=== PATIENT | male | born 1930 | race Caucasian/White ===

== ENCOUNTER 2017-06-15 18:21 | Inpatient (IN) | payer MEDICARE, BC ==
[2017-06-15] MEDS ORDERED: PANTOPRAZOLE 40 MG INJ ONE (18:34)
[2017-06-15] MEDS ORDERED: ONDANSETRON 4 MG/2 ML VIAL ONE (18:34)
[2017-06-15 18:57] LABS: Absolute Lymphocytes (CBC) 0.4 K/uL (0.7-4.9); Absolute Monocytes 0.3 K/uL (0.1-1.3); Absolute Neutrophil 4.1 K/uL (1.8-8.0); Basophils % 0.2 % (0-1.3); Eosinophils % 1.8 % (0-4.4); Hematocrit 37.3 % (39.6-49.0); Lymphocytes % 8.1 % (15.3-44.8); MCH 34.6 pg (27.0-35.0); MCV 100.9 fL (80-100); MPV 8.6 fL (7.6-11.3); Monocytes % 6.8 % (3.3-12.3)
[2017-06-15 19:08] LABS: Protime INR 1.11
[2017-06-15 19:11] LABS: Potassium 4.7 mEq/L (3.6-5.0)
[2017-06-15 19:12] LABS: Albumin 4.7 g/dL (3.2-5.5); Bilirubin Direct 0.5 mg/dL (0-0.2); Bilirubin Total 2.6 mg/dL (0.3-1.2); Protein, Total 7.9 g/dL (6.0-8.3)
[2017-06-15 21:09] LABS: Urine Blood NEGATIVE (NEG); Urine Glucose NEGATIVE (NEG); Urine Protein 1+ (NEG); Urine Specific Gravity 1.015 (1.005-1.030); Urine pH 6.5 (5.0-7.0)
--- NOTE | 2017-06-15 21:10 | RAD REPORT ---
EXAM DESCRIPTION: CT - Abdomen Pelvis W Contrast - 06/15/2017 8:36 pm CLINICAL HISTORY: Abdominal pain, vomiting, history of bowel obstruction COMPARISON: CT March 24 TECHNIQUE: Biphasic, helical CT imaging of the abdomen and pelvis was performed following 100 ml non -ionic IV contrast. No oral contrast given. All CT scans are performed using dose optimization technique as appropriate and may include automated exposure control or mA/KV adjustment according to patient size. FINDINGS: No acute pleural or parenchymal process seen. Cardiomegaly is present seen primarily as bi atrial enlargement. No pericardial effusion. Liver shows a nodular capsular contour. No new or enlarging liver lesion. Small low-density mass late ral right lobe near the gallbladder fossa has not changed from the prior study. No splenomegaly or fo thad splenic process. No acute pancreatic process. Cholecystectomy clips are present with no biliary t ree dilatation. Symmetric renal function is seen with no hydronephrosis or suspicious renal mass. No pyelonephritis o r acute renal parenchymal process. Partially filled urinary bladder shows no suspicious findings. No gastric wall thickening or mass. There is fluid distention of the stomach. Colonic diverticulosis is present. There is postsurgical change near the rectosigmoid junction with and end to side anastomo sis. An active colon process is doubtful. No appendicitis. Multiple prominent proximal small bowel lo ops are present with progressive dilatation up to 3 cm in diameter in the low midline pelvis. No mass at the transition site. More distally the small bowel is decompressed. This is most likely adhesions causing an early mechanical small bowel obstruction. Small bowel pattern is more prominent than seen in March. No free air, free fluid or inflammatory stranding. No hernia, mass or bulky lymphadenopathy. No adre nal abnormality. No suspicious bony findings. IMPRESSION: Early mechanical small bowel obstruction pattern with an abrupt transition in the low mi dline pelvis. There are surgical clips in this region from prior colon surgery. The adhesions would b e most likely. No free air, pneumatosis or other surgically emergent finding. Cirrhotic liver changes not substantially different from comparison. Cardiomegaly seen as biatrial enlargement. No pericardial effusion.
[2017-06-15] MEDS ORDERED: METRONIDAZOLE 500mg IVPB 500 MG/100 ML BAG IV ONE (21:17)
[2017-06-15] MEDS ORDERED: CEFTRIAXONE/SWI 1gm 1 GM/10 ML SYR ONE (21:17)
[2017-06-15] MEDS ORDERED: NA CHLORIDE 0.9% 1,000 ML ONE (21:34)
--- NOTE | 2017-06-15 21:39 | EDPHYS ---
Physician Documentation [facility] Name: Chris Mcwilliams Age: 87 yrs Sex: Male : 1930 Arrival Date: 06/15/2017 Time: 18:24 Bed 4 Private MD: ED Physician Shan Conway HPI: 06/15 18:52 This 87 yrs old Male presents to ER via EMS with complaints of Vomiting. rn 18:52 The patient presents to the emergency department with nausea, vomiting. Onset: The rn symptoms/episode began/occurred this morning. Possible causes: unknown. Severity of symptoms: At their worst the symptoms were moderate in the emergency department the symptoms are unchanged. The patient has not experienced similar symptoms in the past. Reports vomiting several episodes today, since this morning, + mild diarrhea but hasn't been able to go to bathroom lately, no fever, noticed small amount of red substance believed to be blood in more recent emesis. Denies chest pain/sob. Reports baseline left sided abd pain but nothing new. . Historical: - Allergies: 18:47 metformin; sv 18:47 Levaquin; sv - Home Meds: 18:47 clopidogrel 75 mg Oral tab [Active]; Aspir-81 81 mg Oral TbEC [Active]; Lasix 40 mg sv Oral tab [Active]; simvastatin 20 mg Oral tab [Active]; Metoprolol Tartrate Oral [Active]; pantoprazole 50 Oral TbEC [Active]; Docusate Sodium Oral [Active]; b12 [Active]; Magnesium Oxide Oral [Active]; Folic Acid Oral [Active]; Iron CR Oral [Active]; - PMHx: 18:47 bowel obstruction; Diverticulitis; Hyperlipidemia; Hypertension; Myocardial infarction; sv Atrial Fib; - PSHx: 18:47 Colostomy; Heart stents; triple bypass; sv - Immunization history:: Adult Immunizations unknown. - Family history:: not pertinent. - Social history:: Smoking status: unknown. - Hospitalizations: : No recent hospitalization is reported. ROS: 18:52 Constitutional: Negative for fever, chills, and weight loss, Eyes: Negative for injury, rn pain, redness, and discharge, Neck: Negative for injury, pain, and swelling, Cardiovascular: Negative for chest pain, palpitations, and edema, Respiratory: Negative for shortness of breath, cough, wheezing, and pleuritic chest pain, Abdomen/GI: + chronic abd pain, + nausea/vomiting/diarrhea/constipation Back: Negative for injury and pain, MS/Extremity: Negative for injury and deformity, Skin: Negative for injury, rash, and discoloration, Neuro: Negative for headache, numbness, tingling, and seizure. Exam: 18:52 Constitutional: This is a well developed, well nourished patient who is awake, alert, rn holding emesis bag Head/Face: Normocephalic, atraumatic. Eyes: Pupils equal round and reactive to light, extra-ocular motions intact. Lids and lashes normal. Conjunctiva and sclera are non-icteric and not injected. Cornea within normal limits. Periorbital areas with no swelling, redness, or edema. Neck: Trachea midline, no thyromegaly or masses palpated, and no cervical lymphadenopathy. Supple, full range of motion without nuchal rigidity, or vertebral point tenderness. No Meningismus. Cardiovascular: Regular rate and rhythm with a normal S1 and S2. No gallops, murmurs, or rubs. Normal PMI, no JVD. No pulse deficits. Respiratory: Lungs have equal breath sounds bilaterally, clear to auscultation and percussion. No rales, rhonchi or wheezes noted. No increased work of breathing, no retractions or nasal flaring. Abdomen/GI: soft, mild LLQ tenderness, no rebound, no masses MS/ Extremity: Pulses equal, no cyanosis. Neurovascular intact. Full, normal range of motion. Equal circumference. Neuro: Awake and alert, GCS 15, oriented to person, place, time, and situation. Cranial nerves II-XII grossly intact. Motor strength 5/5 in all extremities. Sensory grossly intact. Vital Signs: 18:48 BP 131 / 77; Pulse 93 MON; Resp 20; Temp 98.1(A); Pulse Ox 100% on 2 lpm NC; Weight sv 81.65 kg (R); Height 5 ft. 7 in. (170.18 cm) (R); Pain 0/10; 20:35 BP 153 / 56; Pulse 80; Resp 17; Pulse Ox 95% on 2 lpm NC; Pain 0/10; tl1 21:36 BP 139 / 54; Pulse 76; Resp 17; Pulse Ox 94% on 2 lpm NC; Pain 0/10; tl1 22:13 BP 100 / 55; Pulse 69; Resp 17; Pulse Ox 96% on 2 lpm NC; Pain 0/10; tl1 18:48 Body Mass Index 28.19 (81.65 kg, 170.18 cm) sv 18:48 A fib sv MDM: 18:24 Patient medically screened. rn 21:20 Differential diagnosis: Nonspecific abd pain, diverticulitis, viral gastroenteritis, rn gastroenteritis, colitis, SBO. Data reviewed: vital signs, nurses notes. 21:36 Counseling: I had a detailed discussion with the patient and/or guardian regarding: the rn historical points, exam findings, and any diagnostic results supporting the discharge/admit diagnosis, lab results, radiology results, the need for further work-up and treatment in the hospital. Response to treatment: the patient's symptoms have mildly improved after treatment, and as a result, I will admit patient. Admission orders: after a detailed discussion of the patient's condition and case, the admit orders are written by me. ED course: Pt with early SBO, sleeping, no peritoneal signs, admitted to Dr. Garcia, and spoke with Dr. Lugo regarding consultation and admission.. 06/15 18:25 Order name: Basic Metabolic Panel; Complete Time: 20:12 06/15 18:25 Order name: CBC with Diff; Complete Time: 20:12 06/15 18:25 Order name: Creatinine for Radiology; Complete Time: 20:12 06/15 18:25 Order name: Hepatic Function; Complete Time: 20:12 06/15 18:25 Order name: Lipase; Complete Time: 20:12 06/15 18:25 Order name: PT-INR; Complete Time: 20:12 06/15 18:25 Order name: Ptt, Activated; Complete Time: 20:12 06/15 18:25 Order name: Troponin (emerg Dept Use Only); Complete Time: 20:12 06/15 18:25 Order name: Blood Culture Adult (2) rn 06/15 18:25 Order name: Lactate; Complete Time: 20:12 06/15 18:25 Order name: Type And Screen; Complete Time: 20:55 06/15 18:26 Order name: CT Abd/Pelvis - W/Contrast; Complete Time: 21:12 04/16 21:05 Order name: Urine Dipstick--Ancillary (enter results); Complete Time: 21:12 em1 06/15 18:25 Order name: IV Saline Lock; Complete Time: 18:42 rn 06/15 18:25 Order name: Labs collected and sent; Complete Time: 18:42 rn 06/15 18:25 Order name: EKG; Complete Time: 18:27 rn 06/15 18:25 Order name: EKG - Nurse/Tech; Complete Time: 18:49 rn 06/15 21:17 Order name: NG Tube; Complete Time: 21:57 rn 06/15 21:17 Order name: NPO; Complete Time: 21:33 rn Administered Medications: 18:39 Drug: Zofran 4 mg Route: IVP; Site: left antecubital; sv 22:54 Follow up: Response: No adverse reaction bb 18:41 Drug: ProTONIX 40 mg Route: IVP; Site: left antecubital; sv 22:55 Follow up: Response: No adverse reaction bb 21:23 Drug: Rocephin - (cefTRIAXone) 1 grams Route: IVPB; Infused Over: 30 mins; Site: left tl1 antecubital; 21:30 Follow up: IV Status: Completed infusion; IV Intake: 10ml bb 21:23 Drug: Flagyl 500 mg Volume: 100 ml; Route: IVPB; Rate: 200 ml/hr; Infused Over: 30 tl1 mins; Site: left antecubital; 22:00 Follow up: IV Status: Completed infusion; IV Intake: 100ml bb 21:51 Drug: NS 0.9% 1000 ml Route: IV; Rate: 75 ml/hr; Site: left antecubital; tl1 22:53 Follow up: IV Status: Infusion continued upon admission; IV Intake: 75ml bb Disposition: 06/15/17 21:38 Hospitalization ordered by Jas Garcia for Inpatient Admission. Preliminary diagnosis is Other and unspecified intestinal obstruction. - Bed requested for Telemetry/MedSurg (Inpatient). - Status is Inpatient Admission. bb - Condition is Stable. - Problem is new. - Symptoms have improved. UTI on Admission? No Signatures: Dispatcher [employer] Carissa Betancur RN RN sv Webb, Martha, RN RN mw Ballard, Brenda, RN RN bb Nieto, Roman, MD MD rn Lasagna, Tonya RN RN tl1 Corrections: (The following items were deleted from the chart) 20:53 20:14 Abdomen Limited+US.RAD.EMIGDIO ordered. EDMS EDMS
--- NOTE | 2017-06-15 21:39 | ER ---
Nurse's Notes [facility] Name: Chris Mcwilliams Age: 87 yrs Sex: Male : 1930 Arrival Date: 06/15/2017 Time: 18:24 Bed 4 Private MD: Diagnosis: Other and unspecified intestinal obstruction Presentation: 06/15 18:17 Presenting complaint: EMS states: vomiting since this morning, dark red blood. BP sv 160/75 HR 80 Afib 95% RA. Phenergan 12.5 mg IM given by EMS to right deltoid. Pt actively vomiting brown liquid at this time. Transition of care: patient was not received from another setting of care. Onset of symptoms was June 15, 2017. Care prior to arrival: Medication(s) given: Phenergan, 12.5 mg. 18:17 Method Of Arrival: EMS: [facility] sv 18:17 Acuity: BOB 2 sv 22:51 Mechanism of Injury: No Mechanism of Injury. bb Triage Assessment: 18:20 General: Appears distressed, uncomfortable, well developed, Behavior is cooperative, sv appropriate for age, anxious. Pain: Denies pain. EENT: No signs and/or symptoms were reported regarding the EENT system. Neuro: Level of Consciousness is awake, alert, obeys commands, Oriented to person, place, time, situation, Moves all extremities. Speech is normal. Cardiovascular: Patient's skin is warm and dry. Pulses are 2+ in right radial artery and left radial artery. Respiratory: Respiratory effort is even, unlabored, Respiratory pattern is regular, symmetrical. GI: Abdomen is round distended, Pt is actively vomiting brown liquid Abd is non tender X 4 quads Reports vomiting, since this morning. Derm: Skin is normal. Musculoskeletal: Range of motion: intact in all extremities. Historical: - Allergies: 18:47 metformin; sv 18:47 Levaquin; sv - Home Meds: 18:47 clopidogrel 75 mg Oral tab [Active]; Aspir-81 81 mg Oral TbEC [Active]; Lasix 40 mg sv Oral tab [Active]; simvastatin 20 mg Oral tab [Active]; Metoprolol Tartrate Oral [Active]; pantoprazole 50 Oral TbEC [Active]; Docusate Sodium Oral [Active]; b12 [Active]; Magnesium Oxide Oral [Active]; Folic Acid Oral [Active]; Iron CR Oral [Active]; - PMHx: 18:47 bowel obstruction; Diverticulitis; Hyperlipidemia; Hypertension; Myocardial infarction; sv Atrial Fib; - PSHx: 18:47 Colostomy; Heart stents; triple bypass; sv - Immunization history:: Adult Immunizations unknown. - Family history:: not pertinent. - Social history:: Smoking status: unknown. - Hospitalizations: : No recent hospitalization is reported. Screenin:30 Abuse screen: Denies threats or abuse. Denies injuries from another. Nutritional sv screening: No deficits noted. Tuberculosis screening: No symptoms or risk factors identified. Fall Risk No fall in past 12 months (0 pts). No secondary diagnosis (0 pts). IV access (20 points). Ambulatory Aid- None/Bed Rest/Nurse Assist (0 pts). Gait- Normal/Bed Rest/Wheelchair (0 pts) Mental Status- Oriented to own ability (0 pts). Total Head Fall Scale indicates No Risk (0-24 pts). Assessment: 18:50 Reassessment: See triage assessment. sv 22:00 Reassessment: Patient and/or family updated on plan of care and expected duration. Pain bb level reassessed. Patient is alert, oriented x 3, equal unlabored respirations, skin warm/dry/pink. pt instructed on need for NG tube verbalized understanding of and agrees to plan of care. 22:46 General: Appears in no apparent distress. slender, Behavior is calm, cooperative. bb Neuro: Level of Consciousness is awake, alert, obeys commands, Oriented to person, place, situation. Cardiovascular: Heart tones S1 S2 present. Respiratory: Airway is patent Respiratory effort is unlabored. 22:47 GI: Abdomen is round Reports vomiting. Derm: Skin is dry, Skin is pale, Skin bb temperature is warm. Musculoskeletal: Circulation, motion, and sensation intact. Vital Signs: 18:48 BP 131 / 77; Pulse 93 MON; Resp 20; Temp 98.1(A); Pulse Ox 100% on 2 lpm NC; Weight sv 81.65 kg (R); Height 5 ft. 7 in. (170.18 cm) (R); Pain 0/10; 20:35 BP 153 / 56; Pulse 80; Resp 17; Pulse Ox 95% on 2 lpm NC; Pain 0/10; tl1 21:36 BP 139 / 54; Pulse 76; Resp 17; Pulse Ox 94% on 2 lpm NC; Pain 0/10; tl1 22:13 BP 100 / 55; Pulse 69; Resp 17; Pulse Ox 96% on 2 lpm NC; Pain 0/10; tl1 18:48 Body Mass Index 28.19 (81.65 kg, 170.18 cm) sv 18:48 A fib sv ED Course: 18:24 Patient arrived in ED. rn 18:24 Shan Conway MD is Attending Physician. rn 18:30 Patient has correct armband on for positive identification. Placed in gown. Bed in low sv position. Call light in reach. Side rails up X2. web retailer on. Pulse ox on. NIBP on. Door closed. Warm blanket given. Head of bed elevated. 18:40 Initial lab(s) drawn, by me, sent to lab. Inserted saline lock: 20 gauge in left sv antecubital area, using aseptic technique. Blood collected. Flushed left antecubital with 5 ml normal saline. 18:40 Arm band placed on right wrist. sv 18:41 Carissa Rhodes RN is Primary Nurse. sv 18:44 Triage completed. sv 18:59 EKG done, by ED staff, reviewed by Shan Conway MD. jb1 19:08 Report given to Monica SMITH. sv 19:17 Primary Nurse role handed off by Carissa Rhodes RN sv 20:35 Patient taken to ultrasound. attila 20:36 CT Abd/Pelvis - W/Contrast In Process Unspecified. EDMS 21:02 Urine collected: clean catch specimen, jayde colored. cb2 21:33 Monica Ross RN is Primary Nurse. tl1 21:37 Jas Garcia MD is Hospitalizing Provider. rn 21:57 NGT: inserted 16 Fr. via right nare. verified placement of air over stomach, verified bb return of gastric contents, to intermittent suction. Returned gastric contents. Patient tolerated well. 22:43 No provider procedures requiring assistance completed. Patient admitted, IV remains in bb place. Administered Medications: 18:39 Drug: Zofran 4 mg Route: IVP; Site: left antecubital; sv 22:54 Follow up: Response: No adverse reaction bb 18:41 Drug: ProTONIX 40 mg Route: IVP; Site: left antecubital; sv 22:55 Follow up: Response: No adverse reaction bb 21:23 Drug: Rocephin - (cefTRIAXone) 1 grams Route: IVPB; Infused Over: 30 mins; Site: left tl1 antecubital; 21:30 Follow up: IV Status: Completed infusion; IV Intake: 10ml bb 21:23 Drug: Flagyl 500 mg Volume: 100 ml; Route: IVPB; Rate: 200 ml/hr; Infused Over: 30 tl1 mins; Site: left antecubital; 22:00 Follow up: IV Status: Completed infusion; IV Intake: 100ml bb 21:51 Drug: NS 0.9% 1000 ml Route: IV; Rate: 75 ml/hr; Site: left antecubital; tl1 22:53 Follow up: IV Status: Infusion continued upon admission; IV Intake: 75ml bb Intake: 21:30 IV: 10ml; Total: 10ml. bb 22:00 IV: 100ml; Total: 110ml. bb 22:53 IV: 75ml; Total: 185ml. bb Outcome: 21:38 Decision to Hospitalize by Provider. rn 22:50 Admitted to Tele accompanied by tech, via stretcher, room 401, with chart, Report bb called to Hina SMITH 22:50 Condition: stable 22:50 Instructed on the need for admit. 23:19 Patient left the ED. bb Signatures: Dispatcher [employer] Trey Mcmullen Stephanie, RN RN Ban Rogers RN RN bb Shan Conway MD MD rn Lasagna, Tonya, RN RN tl1 John Santos jd, [facility]
[2017-06-15] MEDS ORDERED: LIDOCAINE VISCOUS 2% SOLN 15 ML UDC ONE (21:46)
[2017-06-15] MEDS ORDERED: D5 0.45 NS 1,000 ML IV SCH (23:17)
[2017-06-15] MEDS ORDERED: ONDANSETRON 4 MG/2 ML VIAL IV PRN (23:17)
[2017-06-15 23:29] VITALS: BMI 26.6
[2017-06-15] MEDS: MORPHINE 4 MG/ML SYR IV PRN (23:46)
[2017-06-15] MEDS: METRONIDAZOLE 500mg IVPB 500 MG/100 ML BAG IV SCH (23:46)
[2017-06-16 06:11] LABS: Absolute Lymphocytes (CBC) 0.7 K/uL (0.7-4.9); Absolute Monocytes 1.1 K/uL (0.1-1.3); Absolute Neutrophil 6.6 K/uL (1.8-8.0); Basophils % 0.1 % (0-1.3); Eosinophils % 0.1 % (0-4.4); Hematocrit 34.5 % (39.6-49.0); Lymphocytes % 8.5 % (15.3-44.8); MCH 33.6 pg (27.0-35.0); MCV 101.9 fL (80-100); MPV 9.1 fL (7.6-11.3); Monocytes % 13.5 % (3.3-12.3); RBC Red Blood Cell Count 3.39 M/uL (4.33-5.43)
[2017-06-16 06:35] LABS: Potassium 4.4 mEq/L (3.6-5.0)
[2017-06-16] MEDS ORDERED: SODIUM CHLORIDE 0.9% 10ML INJ IV PRN (07:53)
[2017-06-16] MEDS: D5 0.45 NS 1,000 ML IV SCH ×3 (07:56→23:56)
[2017-06-16] MEDS: ASPIRIN EC 81 MG TAB PO SCH (08:17)
[2017-06-16] MEDS: ENOXAPARIN 30 MG/0.3 ML SQ SCH (08:18)
[2017-06-16] MEDS: METOPROLOL TAR 25 MG TAB PO SCH ×2 (08:18→21:00)
[2017-06-16] MEDS: METRONIDAZOLE 500mg IVPB 500 MG/100 ML BAG IV SCH ×2 (08:18→16:02)
[2017-06-16] MEDS: CEFTRIAXONE/SWI 1gm 1 GM/10 ML SYR IV SCH ×2 (08:19→21:08)
[2017-06-16] MEDS: PANTOPRAZOLE 40 MG INJ IVP SCH (08:19)
--- NOTE | 2017-06-16 08:28 | EKG ---
Test Date: 2017-06-15 Test Time: 18:44:54 Wall Attendant: ELOINA MEASUREMENT RESULTS: Intervals: Rate: 78 MS: QRSD: 158 QT: 438 QTc: 499 [place]: P: MS: QRS: 262 T: -12 INTERPRETIVE STATEMENTS: Atrial fibrillation Right bundle branch block, plus right ventricular hypertrophy Inferior infarct, age undetermined Anterior infarct, age undetermined Abnormal ECG Compared to ECG 03/25/2017 06:28:45 No significant changes Electronically Signed On 06-16-17 08:25:47 CDT by Guy Barnett
[2017-06-16] MEDS ORDERED: CEFTRIAXONE 1 GM/NS 50 ML 1 GM/50 ML BAG IV SCH (09:00)
[2017-06-16] MEDS ORDERED: NA CHLORIDE 0.9% 500 ML IV ONE ×2 (11:30→12:31)
[2017-06-16 13:35] LABS: Potassium 3.8 mEq/L (3.6-5.0)
[2017-06-16 13:39] LABS: Absolute Lymphocytes (CBC) 0.9 K/uL (0.7-4.9); Absolute Monocytes 1.1 K/uL (0.1-1.3); Absolute Neutrophil 4.8 K/uL (1.8-8.0); Basophils % 0.3 % (0-1.3); Eosinophils % 0.5 % (0-4.4); Hematocrit 31.2 % (39.6-49.0); Lymphocytes % 12.8 % (15.3-44.8); MCH 33.7 pg (27.0-35.0); MCV 101.6 fL (80-100); MPV 9.5 fL (7.6-11.3); Monocytes % 16.6 % (3.3-12.3); RBC Red Blood Cell Count 3.07 M/uL (4.33-5.43)
--- NOTE | 2017-06-16 13:51 | CON ---
Date of Consultation: 06/16/2017 Brief History Of Present Illness: The patient is an 87-year-old male, who presents with a significant past medical history of coronary artery disease and abdominal surgery before he has had e pisodes of diverticulitis requiring colostomy creation, colostomy takedown, bowel obstruction, who pr esents now with approximately 1 to 1-1/2 day history of abdominal pain, nausea, vomiting. He states that his emesis was slightly peres/reddish in color, and he was concerned about bleeding and therefor e as he has a history of taking blood thinners specifically Plavix and aspirin, he is concerned about bleeding and he came to the emergency room with the above-stated complaints. He states that his abd omen has become distended over the past day and half and had some generalized abdominal pain, but not terribly severe. He has had bowel function as of yesterday, which was normal by his description and normal passage of gas yesterday. No blood components in his stool that he is aware of. Past Medical History: Significant for hypertension, hyperlipidemia, diabetes, coronary artery diseas e, diverticulosis, BPH, carotid artery disease, diastolic congestive heart failure, MS, atrial fibril lation. Past Surgical History: Includes CABG with triple bypass, heart stents, colostomy creation, cholecyst ectomy, colostomy takedown, abdominal surgery was performed by Dr. Hernandez. Home Medications: Plavix, aspirin, Lasix, simvastatin, metoprolol, pantoprazole, docusate sodium, ma gnesium oxide, folic acid, iron. Allergies: METFORMIN AND LEVAQUIN. Social History: He has a prior history of smoking. He denies alcohol or recreational drug use. Physical Examination: Vital Signs: At the time of my examination, his vital signs include a BMI of 26.6. His blood pressu re 90/50, pulse 68, respiratory rate 16, temperature 99.0. General: He is awake, alert, and oriented. Psychiatric: He is appropriate, conversive. HEENT: Normocephalic. His sclerae are anicteric. His mucous membranes are moist. There is an NG t ube in place. There is approximately 300 cc of bilious effluent. Neck: Supple with no JVD. Chest: Has good expansion and excursion. He has well-healed previous chest median sternotomy scar. Abdomen: Soft, mildly distended globally. There is minimal tenderness. No rebound. No guarding. No focal peritonitis. Well-healed scars are evident. Extremities: No clubbing, cyanosis, or edema. Skin: Warm and dry. Laboratory Data: Laboratory exam reveals a white blood count of 8.5, hemoglobin 11.4, hematocrit of 34.5, platelet count is 116, neutrophils 77.8. Sodium 140, potassium 4.4, chloride 101, carbon dioxid e 29, BUN 33, creatinine 1.77, glucose is 154, lactic acid 13.7. Total bilirubin was 2.6 on admissio n, direct component 0.5, AST 31, ALT 13, lipase is 22. UA was 1+ positive protein, otherwise negativ e. 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 There are surgical clips in the region from prio r colon surgery, most likely. No free air, pneumatosis, or surgically emergent findings. Cirrhotic liver changes not substantially different from comparison. Cardiomegaly with biatrial enl argement. No pericardial effusion. Assessment And Plan: This is an 87-year-old male who comes in with an early possible small-bowel obs truction. 1.IV fluid hydration. 2.NG tube decompression. 3.Antibiotic coverage. 4.Serial abdominal exams. 5.We will attempt nonoperative management of this bowel obstruction as patient has a history of bein g on blood thinners, now has significant cardiac history, and would likely benefit from nonoperative management should he continue to improve as he states he is improving at this point. Therefore, I re commend continuation of this n.p.o. and serial exam. Plan until such time as he has resumption of david wel function, improvement of symptoms or if he worsens, he will require surgery. I recommend medical optimization for possible surgery in case the patient does need emergent surgery. Thank you for this interesting consult. JULIO/MAXIMILIANO Voice ID: [id number] Report ID: [id number]
[2017-06-16 13:52] LABS: Blood Morphology Comment NOT SEEN (NOT SEEN); Platelet Estimate ADEQ
[2017-06-16] MEDS ORDERED: KCL 20 MEQ/100 mL IVPB 20 MEQ/100 ML BAG IV SCH (18:00)
[2017-06-16] MEDS ORDERED: CEPACOL LOZENGES PO PRN (19:38)
[2017-06-17] MEDS: METRONIDAZOLE 500mg IVPB 500 MG/100 ML BAG IV SCH ×3 (01:49→16:30)
[2017-06-17] MEDS: D5 0.45 NS 1,000 ML IV SCH ×3 (04:38→16:31)
[2017-06-17 04:53] LABS: Absolute Lymphocytes (CBC) 0.8 K/uL (0.7-4.9); Absolute Monocytes 0.7 K/uL (0.1-1.3); Absolute Neutrophil 3.7 K/uL (1.8-8.0); Basophils % 0.4 % (0-1.3); Eosinophils % 3.6 % (0-4.4); Hematocrit 30.8 % (39.6-49.0); Lymphocytes % 14.7 % (15.3-44.8); MCH 34.2 pg (27.0-35.0); MCV 101.4 fL (80-100); MPV 9.3 fL (7.6-11.3); Monocytes % 13.4 % (3.3-12.3); RBC Red Blood Cell Count 3.03 M/uL (4.33-5.43)
[2017-06-17 06:05] LABS: Albumin 3.6 g/dL (3.2-5.5); Bilirubin Total 1.2 mg/dL (0.3-1.2); Magnesium 1.9 mg/dL (1.8-2.5); Potassium 3.6 mEq/L (3.6-5.0); Protein, Total 6.1 g/dL (6.0-8.3)
--- NOTE | 2017-06-17 06:13 | HP ---
Date of Admission: 06/16/2017 Chief Complaint: Abdominal pain, nausea, and vomiting. History Of Present Illness: An 87-year-old male patient who has prior history of small bowel obstruction, came into emergency room with complaints of some vague abdominal pain. Denies any hematemesis. No fever. No chills. He has had some diarrhea with this. No bleeding. After he came into the emergency room, he was evaluated, diagnosed as having small bowel obstruction and was admitted to the hospital. NG tube was placed. IV fluid was started. IV antibiotics were started. When I saw him this morning, he was feeling somewhat better today compared to yesterday, had an NG tube in place, draining greenish- colored liquid. Allergies: LEVOFLOXACIN AND METFORMIN. Review of Systems: GI: As mentioned above. All other systems reviewed and negative. Medications: List reviewed. Social History: Prior history of smoking, not at present time. Use of alcohol negative. Family History: Significant for Alzheimer disease, stroke, and lung cancer. Past Surgical History: Significant for coronary artery angioplasty with stent placement, coronary artery bypass surgery, and cholecystectomy. Past Medical History: Significant for small bowel obstruction in the past, hypertension, coronary artery disease, hyperlipidemia, type 2 diabetes mellitus , diverticulosis, benign prostatic hypertrophy, carotid artery disease, diastolic congestive heart failure, and anemia. Physical Examination: Vital Signs: Reviewed. Height 5 feet 7 inches and weight 169 pounds. General: Awake, alert, oriented, not in distress. HEENT: Head atraumatic, normocephalic. Conjunctivae nonerythematous. Sclerae white. Mouth, no thrush or edema noted. Ears/Nose, no mass, lesion, discharge noted. Neck: Supple. No JVD, lymph nodes, bruit, thyromegaly noted. Lungs: Bilateral good equal air entry. Clear to auscultation. No rhonchi. No rales. Heart: Normal heart sounds, no murmur or gallop. Abdomen: Abdomen appears slightly distended, presence of minimum tenderness in lower abdomen. No rebound tenderness. Bowel sounds normoactive. No hepatosplenomegaly. No bruit. Extremities: No leg edema. No calf tenderness. Skin: No rash, ulcer, cellulitis. Lymphatics: No lymph node enlargement in neck, supraclavicular, infraclavicular region. Neuro: No focal neurological deficit. Chest: Unremarkable. External Genitalia: Deferred. Rectal: Deferred. Laboratory Data: Yesterday white count 4.9, hemoglobin 12.8, and platelets 112. Today, white count 8.5, hemoglobin 11.4, and platelets 116. Yesterday, sodium 140, potassium 4.7, chloride 98, bicarb 32, BUN 25, creatinine 1.18, glucose 145, total bilirubin 2.6, direct bilirubin 0.5, SGOT 31, SGPT 13, troponin less than 0.03. This morning, BUN 33 and creatinine 1.77. Urinalysis : 1+ protein, otherwise, negative. Diagnostic Data: CAT scan of the abdomen done in the emergency room with contrast shows early mechanical small bowel obstruction. Impression: 1. Small bowel obstruction. 2. Acute kidney injury. 3. Volume depletion. 4. Thrombocytopenia. 5. Anemia. 6. Coronary artery disease. 7. Hypertension. 8. Type 2 diabetes mellitus. 9. Hyperlipidemia. 10. Benign prostatic hypertrophy. 11. Diverticulosis. Plan: Admit the patient to hospital for further evaluation and management of this problem. The patient is appropriate for inpatient and is expected to spend 2 midnights in the hospital. IV fluid rate was increased this morning from 75 cc/hour to 125 cc/hour because his blood pressure was running on lower side. We will continue IV antibiotic. DVT prophylaxis will be given per order. Home medications will be continued per order. During the course of day today, the patient's blood pressure was low anywhere between 80-90 systolic and he was given a total of 1 L of IV fluid bolus over a period of time today, and the blood pressure, he has responded well to that. Blood pressure still on the lower side around 100 systolic, but better than before. His CBC and chemistry blood test were done again this afternoon. Creatinine is somewhat better, it is 1.70, compared to 1.77 earlier this morning. His acute kidney injury could be due to IV contrast that he received yesterday with CAT scan, along with low blood pressure. All this could be contributing factor, but we are already saying that renal function is improving. We will continue current IV fluid per order. General surgeon has been consulted. Conservative treatment will be provided with NG tube, n.p.o., IV fluid, and IV antibiotics, and if the patient' s bowel obstruction does not improve, then surgical intervention might become necessary. Cardiology consultation will be obtained for preop clearance in case if he needs any surgical intervention. Details and plan of treatment discussed with the patient. I will see him tomorrow for followup. APOORVA/MAXIMILIANO Voice ID: [id number] MTDD
--- NOTE | 2017-06-17 06:16 | HP ---
Date of Admission: 06/16/2017 DICTATION ENDS HERE APOORVA/MODL Voice ID: [id number] MTDD
[2017-06-17 07:28] LABS: Urine White Blood Cell Casts OK
[2017-06-17 07:29] LABS: Anisocytosis 1+; Blood Morphology Comment NOTED (NOT SEEN); Platelet Estimate DECR; Poikilocytosis 1+
[2017-06-17] MEDS: PANTOPRAZOLE 40 MG INJ IVP SCH (08:26)
[2017-06-17] MEDS: CEFTRIAXONE/SWI 1gm 1 GM/10 ML SYR IV SCH ×2 (08:26→22:00)
[2017-06-17] MEDS: ASPIRIN EC 81 MG TAB PO SCH (08:27)
[2017-06-17] MEDS: METOPROLOL TAR 25 MG TAB PO SCH ×3 (08:28→22:00)
[2017-06-17] MEDS: ENOXAPARIN 30 MG/0.3 ML SQ SCH (08:29)
[2017-06-17] MEDS ORDERED: KCL 20 MEQ/100 mL IVPB 20 MEQ/100 ML BAG IV SCH (09:00)
--- NOTE | 2017-06-17 10:06 | RAD REPORT ---
EXAM DESCRIPTION: RAD - Abdomen Acute Series - 06/17/2017 9:00 am CLINICAL HISTORY: Abdominal pain, shortness of breath, small bowel obstruction COMPARISON: June 15 CT study, March 2017 chest film FINDINGS: Chronic interstitial lung disease is present. No new mass, consolidation or diffuse pulmon lea edema pattern. Cardiomegaly is present. Central vasculature is mildly prominent but unchanged. St ernotomy wires are in place. NG tube is in place extending below the diaphragm. No pleural effusion o r pneumothorax. Tip of the NG tube is in the gastric antrum or first portion of the duodenum. No large or small bowel dilatation identifiable. Fluid-filled small bowel loops can be difficult to fully evaluate on plain film. No free air or pneumatosis. No suspicious calcifications. Bone and disc degenerative change. No acute bone finding. IMPRESSION: Cardiomegaly and mild vascular engorgement. Patient has baseline prominence of the inter stitial markings. A minimal component of failure or volume overload could be present. However, chest is not substantial ly different No free air or pneumatosis. Small bowel loops do not appear dilated. Fluid-filled small bowel loops c an be difficult to evaluate.
--- NOTE | 2017-06-17 10:36 | ECHO ---
HEIGHT: 5 ft 7 in WEIGHT: 169 lb 11.2 oz DATE OF STUDY: 06/17/[address]: You Garay MD 2-DIMENSIONAL: YES M.MODE: YES DOPPLER: YES COLOR FLOW: YES TDS: NO PORTABLE: NO DEFINITY: NO BUBBLE STUDY: NO DIAGNOSIS: AORTIC STENOSIS/ CORONARY ARTERY DISEASE CARDIAC HISTORY: CATHERIZATION: YES SURGERY: CABG PROSTHETIC VALVE: NO PACEMAKER: NO MEASUREMENTS (cm) DIASTOLIC (NORMALS) SYSTOLIC (NORMALS) IVSd 1.3 (0.6-1.2) LA Diam 5.6 (1.9-4.0) LVEF 77% LVIDd 4.7 (3.5-5.7) LVIDs 2.6 (2.0-3.5) %FS 46% LVPWd 1.3 (0.6-1.2) Ao Diam 3.1 (2.0-3.7) 2 DIMENSIONAL ASSESSMENT: RIGHT ATRIUM: DILATED LEFT ATRIUM: DILATED RIGHT VENTRICLE: NORMAL LEFT VENTRICLE: LEFT VENTRICULAR HYPERTROPHY TRICUSPID VALVE: NORMAL MITRAL VALVE: MITRAL ANNULAR CALCIFICATION PULMONIC VALVE: NORMAL AORTIC VALVE: STENOSIS PERICARDIAL EFFUSION: NONE AORTIC ROOT: NORMAL LEFT VENTRICULAR WALL MOTION: NORMAL. DOPPLER/COLOR FLOW: MILD-MODERATE MITRAL AND AORTIC REGURGITATION. MILD TRICUSPID REGURGITATION. SEVERE PULMONARY HYPERTENSION, ESTIMATED RIGHT VENTRICULAR SYSTOLIC PRESSURE 70mmHg. SEVERE AORTIC STENOSIS. PEAK/MEAN GRADIENT 50/25mmg. ESTIMATED AORTIC VALVE AREA 0.9 CENTIMETERS SQUARED. COMMENTS: NORMAL LEFT VENTRICULAR EJECTION FRACTION. LEFT VENTRICULAR HYPERTROPHY. SEVERE AORTIC STENOSIS. MILD-MODERATE MITRAL AND AORTIC REGURGITATION. MILD TRICUSPID REGURGITATION. ATRIAL FIBRILLATION. SEVERE PULMONARY HYPERTENSION. TECHNOLOGIST: NARCISO CARMICHAEL
--- NOTE | 2017-06-17 11:05 | P.PN ---
Subjective Date of Service: 06/17/17 Subjective: Improving (Patient states his pain is better, no bowel function today, less tender, less bloated) Physical Examination - Vital Signs Temperature: 98.1 F Blood Pressure: 113/57 Pulse: 88 Respirations: 18 Pulse Ox (%): 93 - Physical Exam General: Alert, Cooperative Respiratory: Clear to auscultation bilaterally Gastrointestinal: Other (soft, mild TTP to only deep palpation, minimal distention also improved from prior) - Studies Microbiology Data (last 24 hrs): 06/15/17 19:49 Blood - Blood Anaerobic Blood Culture - Final 06/15/17 19:54 Blood - Blood Anaerobic Blood Culture - Final Assessment And Plan - Current Problems (Diagnosis) (1) Small bowel obstruction Onset Date: 06/16/17 Current Visit: Yes Status: Active Plan: - continue NG tube today, likely DC in AM - serial exams - await bowel function - ambulate with assist when HD improved
[2017-06-17 11:27] VITALS: O2SAT 93
--- NOTE | 2017-06-17 13:58 | CON ---
History Of Present Illness: Mr. Mcwilliams is 87. He came to the hospital with nausea, vomiting, anorexia, some loose stools as well and he believes he has a small bowel obstruction. He has had small bowel obstruction in the past. I am asked to see him as a preop evaluation. He is not having any cardiac symptoms, but he has an extensive cardiac history. He had coronary bypass surgery, one report put that as early as 1977, but I believe it was actually in mid 80s. Since then, he has had numerous interventions. The last one was in 2012. The graft to the LAD had degenerated, it was no longer functional, so a stent was put in his [place] LAD. Since then, he has done well. His last stress test was in January 2017, so just 4 months ago. It showed scar, no ischemia. An echocardiogram done 1 year ago showed normal ejection fraction, moderate aortic stenosis. The patient denies having chest pain. He has mild dyspnea on exertion. No syncope. No paroxysmal nocturnal dyspnea, orthopnea, mild pedal edema. Allergies: HE IS ALLERGIC TO LEVOFLOXACIN AND METFORMIN. Home Medications: Aspirin, Plavix, metoprolol, furosemide, simvastatin, docusate, Protonix, vitamin B12, folic acid, magnesium oxide and iron sulfate. 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 His EKG is unchanged. Mr. Mcwilliams is not a candidate for chronic anticoagulation due to GI blood loss. The surgical consult indicate that he has a small bowel obstruction. They recommended IV fluids, NG tube decompression, antibiotics, and attempting to treat this without going through surgery. If he does require surgery his cardiac condition is such that he would be considered a high risk. There were no interventions I would recommend doing before surgery, but I would recommend repeating an echocardiogram now while we have the luxury of waiting. It is a good time to follow up about his aortic valve and coronary heart disease. Anyway, we will do it at the bedside and if he does need to go through surgery having that information will be useful. Of course, the first efforts will be at treating him without going through general anesthesia and laparotomy. He is a high risk patient with no good options for reducing the risk. MOHAMUD/MAXIMILIANO Voice ID: [id number] Report ID: [id number] MTDD
[2017-06-17] MEDS: MORPHINE 4 MG/ML SYR IV PRN (23:39)
--- NOTE | 2017-06-18 00:58 | PN ---
Date of Progress Note: 06/17/2017 Subjective: The patient was seen this morning for followup. Lying in bed, not in any distress. NG tube is in place, draining greenish colored liquid. No blood in it. Denies any shortness of breath. Abdominal pain is present, but better than yesterday. No bowel movement since yesterday. Objective: Vital Signs: Reviewed. HEENT: Unremarkable. Lungs: Clear to auscultation. No rhonchi. No rales. Heart: Sounds normal. Abdomen: Soft. Bowel sounds normal. No guarding, rigidity. No distention. Minimum tenderness in the middle of abdomen. No rebound tenderness. Bowel sounds normoactive. Extremities: No leg edema. Laboratory Data: White count 5.4, hemoglobin 10.3, platelets 87. Sodium 139, potassium 3.6, chlorid e 104, bicarb 29, BUN 33, creatinine 1.26. Yesterday, creatinine was 1.77. Glucose 141. Liver func tion tests unremarkable. Impression: 1.Small bowel obstruction. 2.Volume depletion. 3.Acute kidney injury. 4.Anemia. 5.Thrombocytopenia. 6.Coronary artery disease. Plan: The patient's blood pressure is better. We will continue IV fluid, but reduce rate. We will go ahead and continue antibiotics. Continue to follow with general surgeon and I will see him tomorr ow for followup. Abdominal x-ray was ordered. Continue NG tube to intermittent suction. Repeat blood work tomorrow. Continue DVT prophylaxis per order. APOORVA/MODL Voice ID: [id number] Report ID: [id number]
[2017-06-18] MEDS: METRONIDAZOLE 500mg IVPB 500 MG/100 ML BAG IV SCH ×3 (01:00→17:12)
[2017-06-18] MEDS: D5 0.45 NS 1,000 ML IV SCH ×2 (03:48→09:52)
--- NOTE | 2017-06-18 08:26 | P.PN ---
Subjective Date of Service: 06/18/17 Subjective: Improving (Patient feels no pain now, no nausea or emesis.) Physical Examination - Vital Signs Temperature: 99.2 F Blood Pressure: 119/62 Pulse: 100 Respirations: 18 Pulse Ox (%): 98 - Physical Exam General: Alert, Cooperative Gastrointestinal: Soft and benign, Non-distended, No tenderness, No rebound, No guarding Assessment And Plan - Current Problems (Diagnosis) (1) Small bowel obstruction Onset Date: 06/16/17 Current Visit: Yes Status: Active Plan: - continue NG DC today and start clears - serial exams - ambulate with assist when HD improved
[2017-06-18 08:28] LABS: Absolute Lymphocytes (CBC) 0.5 K/uL (0.7-4.9); Absolute Monocytes 0.6 K/uL (0.1-1.3); Basophils % 0.5 % (0-1.3); Eosinophils % 4.1 % (0-4.4); Hematocrit 31.3 % (39.6-49.0); Lymphocytes % 9.2 % (15.3-44.8); MCH 34.3 pg (27.0-35.0); MCV 102.4 fL (80-100); MPV 8.9 fL (7.6-11.3); Monocytes % 10.9 % (3.3-12.3); RBC Red Blood Cell Count 3.05 M/uL (4.33-5.43)
[2017-06-18 08:34] LABS: Magnesium 2.1 mg/dL (1.8-2.5); Potassium 4.1 mEq/L (3.6-5.0)
[2017-06-18] MEDS: ENOXAPARIN 30 MG/0.3 ML SQ SCH (09:00)
[2017-06-18] MEDS ORDERED: METOPROLOL TAR 25 MG TAB PO SCH (09:00)
[2017-06-18] MEDS: ASPIRIN EC 81 MG TAB PO SCH (09:48)
[2017-06-18] MEDS: PANTOPRAZOLE 40MG TABLET PO SCH (09:50)
[2017-06-18] MEDS: METOPROLOL TAR 25 MG TAB PO SCH ×2 (09:51→21:12)
[2017-06-18] MEDS: CEFTRIAXONE/SWI 1gm 1 GM/10 ML SYR IV SCH ×2 (09:55→21:12)
[2017-06-18] MEDS ORDERED: Morphine 2 MG/2 ML SYR IV PRN (11:19)
--- NOTE | 2017-06-18 15:27 | RAD REPORT ---
EXAM DESCRIPTION: RAD - Barium Swallow Modified - 06/18/2017 3:14 pm CLINICAL HISTORY: Aspiration COMPARISON: None. TECHNIQUE: The patient was given liquid, semi-solid and solid forms of barium. Lateral view fluorosc opic imaging was performed in conjunction with [facility]. FINDINGS: Laryngeal penetration not cleared with thin; aspiration no cough with thin; moderate phary ngeal residue vallecular, pyriform, posterior wall with all constistencies; delayed swallow and reduc ed hyolaryngeal excursion.
--- NOTE | 2017-06-18 15:28 | PN ---
Date of Progress Note: 06/18/2017 The patient was seen by Dr. Garay yesterday for cardiac clearance for small bowel obstruction. Like ly small bowel obstruction is improving without any intervention. He has critical aortic stenosis an d is a very poor candidate for surgery and severe pulmonary hypertension. He is a very poor candidat e for a TAVR but we will re-evaluate that as an outpatient. ISIDORO/MAXIMILIANO Voice ID: [id number] Report ID: [id number]
[2017-06-18] MEDS: ATORVASTATIN 10 MG TAB PO SCH (17:12)
[2017-06-18] MEDS: MUPIROCIN 2% OINT 22GM TUBE TOP SCH (21:00)
--- NOTE | 2017-06-19 02:05 | PN ---
Date of Progress Note: 06/18/2017 Subjective: The patient was seen this morning for followup. He was feeling much better. Denies any abdominal pain. An NG tube was present, draining greenish colored liquid. Overall, he feels much b [place] as he reported this morning. Objective: Vital Signs: Reviewed. HEENT: Unremarkable. Lungs: Clear to auscultation. Heart: Sounds normal. Abdomen: Soft. Bowel sounds normal. No guarding, rigidity, tenderness, or distention. Extremities: No leg edema. Laboratory Data: Labs reviewed. Impression: 1.Small-bowel obstruction. 2.Severe aortic valve stenosis. 3.Anemia. 4.Thrombocytopenia. 5.Coronary artery disease. Plan: We will go ahead and continue the antibiotics. Details were discussed with Dr. Lugo and he has started him on clear liquid diet today. We will advance diet as he tolerates per Dr. Lugo. During the course of day today, nursing staff called and informed me that the patient actually has tr ouble swallowing and he was having coughing spell every time he was trying to swallow, so Speech Ther apy consult and modified barium swallow was ordered. The patient did ambulate with help of Physical Therapy. Possible discharge to go home tomorrow depending on his condition. The patient's echocardi ogram was discussed with facility assistant and facility assistant will see him on outpatient basis after he recovers from this illness to talk about possibility of referral to [facility] to [place] for TAVR. APOORVA/MODL Voice ID: [id number] Report ID: [id number]
[2017-06-19] MEDS: METRONIDAZOLE 500mg IVPB 500 MG/100 ML BAG IV SCH ×3 (02:19→16:06)
[2017-06-19] MEDS: D5 0.45 NS 1,000 ML IV SCH (04:00)
[2017-06-19] MEDS: ASPIRIN EC 81 MG TAB PO SCH (09:47)
[2017-06-19] MEDS: PANTOPRAZOLE 40MG TABLET PO SCH (09:47)
[2017-06-19] MEDS: CEFTRIAXONE/SWI 1gm 1 GM/10 ML SYR IV SCH (09:47)
[2017-06-19] MEDS: METOPROLOL TAR 25 MG TAB PO SCH (09:47)
[2017-06-19] MEDS: ENOXAPARIN 30 MG/0.3 ML SQ SCH (09:48)
[2017-06-19] MEDS: MUPIROCIN 2% OINT 22GM TUBE TOP SCH (09:48)
--- NOTE | 2017-06-19 13:42 | PN ---
Subjective: Mr. Mcwilliams is improved. He would be an extremely high risk patient to undergo surgery i n the abdomen. I think, he would be extremely high risk also to undergo aortic valve surgery because of his coexisting severe pulmonary hypertension. We will have a discussion with that and I will arr victor m for him to visit Dr. Avila in [place] to see if he would recommend a TAVR given the underlying pulmonary hypertension. I think, he would probably not qualify for that particular procedure. MOHAMUD/MAXIMILIANO Voice ID: [id number] Report ID: [id number]
[2017-06-19] MEDS: ATORVASTATIN 10 MG TAB PO SCH (16:08)
[2017-06-19 16:13] VITALS: BP 126/68; TEMP 99.4
--- NOTE | 2017-06-20 06:28 | DS ---
Date of Discharge: 06/19/2017 Disposition: Discharged to go home. Physical Examination: HEENT: Unremarkable. Lungs: Clear to auscultation. Heart: Sounds normal. Abdomen: Soft, bowel sounds normal. Extremities: No leg edema. Discharge Medications And Instructions: 1.Continue all prior home medications. 2.Augmentin 875 mg twice a day for 1 week. 3.Follow up with Dr. Garay in 1 to 2 weeks and follow up at my office in 2 to 3 weeks. Laboratory Data: Labs done during this hospitalization. Initial white count when he came into hospi min 4.9, hemoglobin 12.8, platelets 112. Last white count yesterday 5.3, hemoglobin 12.5, platelets 86. Lowest platelet during this hospitalization was the one from yesterday 86, day before that was 8 7. Lowest hemoglobin was 10.3 on 06/16/2017. First chemistry when he first came into the hospital, sodium 140, potassium 4.7, chloride 98, bicarb 32, BUN 25, creatinine 1.18, highest creatinine was 1. 77 on 06/16/2017 with BUN 33. Yesterday, last BUN 15, creatinine 0.93, glucose 152, sodium 136, pota ssium 4.1. Hospital Course: An 87-year-old male patient, who came into hospital emergency room with complaints of abdominal pain, nausea, vomiting. Please see dictated H and P for more information. After the ross rosario came into the emergency room, he was evaluated, diagnosed as having bowel obstruction, and was admitted to the hospital under my service. General surgeon, Dr. Lguo, was consulted and the patie nt was treated with conservative treatment. IV fluid, IV antibiotics given to him. NG tube was plac ed to low intermittent suction. DVT prophylaxis using Lovenox was given. Home medications continued as per order. Initially, the patient had low blood pressure and he required IV fluid and some IV fl uid boluses and this was within first 24-36 hours after admission. After that his blood pressure sta bilized. The patient started ambulating well and with conservative treatment, his bowel obstruction problem improved. NG tube was discontinued. Clear liquid was started yesterday and today he was sta rted on regular diet that he has tolerated very well. He had some trouble swallowing yesterday and s krystinech therapy was consulted. Modified barium swallow was done according to speech therapist's recomm endation. The patient was advised to have thickened liquids, but regular diet and the patient was ma de aware of this speech therapist's recommendation. Today, he was discharged to go home in stable co ndition and Dr. Lugo has released him to go home from his point of view. Medically, he is stable for discharge. Cardiology consultation was obtained for preop clearance in case if the patient requires any bowel jean rgery, but he did not require such surgery and the business mgr order echocardiogram which came back showing normal ejection fraction but severe aortic stenosis and the patient was made aware of this. [employer] will follow up with him on outpatient basis and then he will refer him to [place] for fu rther evaluation of valve replacement surgery. Today, I did discuss all these details with the patie nt and his daughter as well as , who were present in the room with him. Final Diagnoses: 1.Small bowel obstruction. 2.Acute kidney injury. 3.Volume depletion. 4.Thrombocytopenia. 5.Anemia. 6.Severe aortic valve stenosis. 7.Coronary artery disease. 8.Hypertension. 9.Type 2 diabetes mellitus. 10.Hyperlipidemia. 11.Benign prostatic hypertrophy. 12.Diverticulosis. APOORVA/MODL Voice ID: [id number] Report ID: [id number]
== END 2017-06-19 18:15 | disposition home or self-care (01) | DRG 389 ==
LOC: SUPCPDRO 18:21 → ER 18:21 → ERHOLD 21:31 → 4TH 22:41
PROVIDERS: ADMIT Internal Medicine; ATTEND Internal Medicine
DX: K56.609 Unspecified intestinal obstruction, unspecified as to partial versus complete obstruction (principal); N17.9 Acute kidney failure, unspecified; I50.32 Chronic diastolic (congestive) heart failure; I25.10 Atherosclerotic heart disease of native coronary artery without angina pectoris; I10 Essential (primary) hypertension; E11.9 Type 2 diabetes mellitus without complications; N40.0 Benign prostatic hyperplasia without lower urinary tract symptoms; D69.6 Thrombocytopenia, unspecified; D64.9 Anemia, unspecified; E86.9 Volume depletion, unspecified; E78.5 Hyperlipidemia, unspecified; I11.0 Hypertensive heart disease with heart failure; K57.90 Diverticulosis of intestine, part unspecified, without perforation or abscess without bleeding; I35.0 Nonrheumatic aortic (valve) stenosis; I27.20 Pulmonary hypertension, unspecified; Z95.5 Presence of coronary angioplasty implant and graft; Z95.1 Presence of aortocoronary bypass graft; Z87.891 Personal history of nicotine dependence
CPT/HCPCS: 36415; 74022; 74177; 74230; 80048; 80053; 80076; 81003; 83605; 83690; 83735; 84484; 85025; 85610; 85730; 86850; 86900; 86901; 87040; 93005; 93306; 96361; 96365; 96375; 97163; 99285; C9113; J0696; J1650; J2405; J7030; Q9967

== ENCOUNTER 2018-03-01 15:23 | Emergency (ER) | payer MEDICARE, BC ==
--- OUTSIDE RECORDS SUMMARY | 2018-03-01 15:26 | XMS REPORT | Clinical Summary ---
:1930 Author Organization [facility] Address [address] [place] [id number] Care Team Providers Name Role Phone Tha Garcia MD Primary Care Provider Allergies Active Allergy Reactions Severity Noted Date Comments Levofloxacin Rash Low 06/16/2017 Metformin Rash Low 06/16/2017 Medications Medication Sig Dispensed Refills Start Date End Date Status apixaban (ELIQUIS) Take 1 tablet 60 tablet 1 08/06/2017 Active 2.5 mg Tab tablet (2.5 mg total) by mouth 2 (two) times daily. clopidogrel (PLAVIX) Take 1 tablet 30 tablet 1 08/07/2017 Active 75 mg tablet (75 mg total) 9 by mouth daily. cyproheptadine Take 1 tablet 90 tablet 1 08/06/2017 Active (PERIACTIN) 4 mg (4 mg total) tablet by mouth 3 (three) times daily. docusate sodium Take 1 capsule 60 capsule 1 08/06/2017 Active (COLACE) 100 MG (100 mg total) capsule by mouth 2 (two) times daily. hydrocortisone 0.5 % Apply 30 g 0 08/06/2017 Active cream topically 2 9 (two) times daily. pantoprazole Take 1 tablet 30 tablet 1 08/07/2017 Active (PROTONIX) 40 MG (40 mg total) tablet by mouth daily. atorvastatin Take 1 tablet 30 tablet 1 08/06/2017 Active (LIPITOR) 40 MG (40 mg total) 9 tablet by mouth nightly. tamsulosin (FLOMAX) Take 1 capsule 30 capsule 1 08/07/2017 Active 0.4 mg Cp24 24 hr (0.4 mg total) capsule by mouth daily. torsemide (DEMADEX) Take 1 tablet 30 tablet 1 08/07/2017 Active 20 MG tablet (20 mg total) 9 by mouth daily. clopidogrel (PLAVIX) Take 300 mg by 0 Discontinued 300 mg Tab mouth once. 8 aspirin 81 MG Take 81 mg by 0 Discontinued chewable tablet mouth daily. 8 furosemide (LASIX) Take 40 mg by 0 Discontinued 40 MG tablet mouth 2 (two) 8 times daily. metoprolol Take 25 mg by 0 Discontinued (LOPRESSOR) 25 MG mouth 2 (two) 8 tablet times daily. simvastatin (ZOCOR) Take 20 mg by 0 Discontinued 20 MG tablet mouth nightly. 8 pantoprazole Take 40 mg by 0 Discontinued (PROTONIX) 40 MG mouth daily. 8 tablet docusate sodium Take by mouth 0 Discontinued (COLACE) 50 MG 2 (two) times 8 capsule daily. cyanocobalamin Take 1,000 mcg 0 Discontinued (VITAMIN B-12) 1000 by mouth 8 MCG tablet daily. magnesium oxide Take 400 mg by 0 Discontinued (MAG-OX) 400 mg mouth daily. 8 tablet folic acid (FOLVITE) Take 400 mcg 0 Discontinued 800 MCG tablet by mouth 8 daily. ferrous sulfate Take 325 mg by 0 Discontinued (IRON, FERROUS mouth every 8 SULFATE,) 325 (65 other day. FE) MG tablet ciprofloxacin HCl Take 1 tablet 4 tablet 0 08/06/2017 (CIPRO) 250 MG (250 mg total) 8 tablet by mouth every 12 (twelve) hours for 2 days. mirtazapine (REMERON Take 1 tablet 30 tablet 1 08/06/2017 JUAN ALBERTO-TAB) 30 MG (30 mg total) 8 disintegrating by mouth tablet nightly for 30 days. polyethylene glycol Take 17 g by 14 each 0 08/06/2017 (GLYCOLAX) 17 gram mouth daily as 8 packet needed (constipation) for up to 3 days. mINOCYCLine Take 1 capsule 20 capsule 0 09/12/2017 (MINOCIN,DYNACIN) (100 mg total) 8 100 MG capsule by mouth every 12 (twelve) hours for 10 days. Active Problems Problem Noted Date Aortic stenosis 09/10/2017 Coronary artery disease due to calcified coronary lesion 07/16/2017 Coronary artery disease 07/15/2017 CHF (congestive heart failure) S/P CABG (coronary artery bypass graft) Atrial fibrillation Hyperlipidemia GERARDO (acute kidney injury) Overview: creatinine 1.0 to 2.58 Anemia GIB (gastrointestinal bleeding) Thrombocytopenia Pulmonary hypertension Advanced age Frailty Encounters Date Type Specialty Care Team Description 09/10/2017 Anesthesia Event KatinaleonardDorian, DO 09/10/2017 Surgery Margarita, TAVR / XIN MCR - IP Kris Solano MD PROC ONLY 09/10/2017 [facility] Cardiology [facility], - Encounter Kris Solano MD 09/12/2017 09/10/2017 Orders Only General Internal Medicine 08/24/2017 [facility], Encounter Kris Solano MD 07/24/2017 [facility], Coronary artery disease due to calcified coronary lesion; - Encounter Rehabilitation Geoffrey Thomas, Be; 08/07/2017 Reactive depression; Systolic congestive heart failure, unspecified HF chronicity (HCC); Paroxysmal atrial fibrillation (HCC); Other constipation 07/18/2017 Orders Only General Internal Medicine 07/15/2017 Surgery Margarita, L CATH & CORONARY Kris Solano MD ANGIOS 07/15/2017 [facility] Cardiology [facility], Coronary artery disease due to calcified coronary lesion; - Encounter Kris Solano MD Systolic congestive heart failure, unspecified HF chronicity (HCC); 07/24/2017 Thrombocytopenia (HCC); Gait abnormality; Muscle weakness 07/07/2017 Outside Orders Central Scheduling Margarita, Aortic valve stenosis , Kris Solano MD etiology of cardiac valve disease unspecified (Primary Dx) after 02/28/2017 Family History Relation Name Status Comments Father Mother Social History Tobacco Use Types Packs/Day Years Used Date Former Smoker Smokeless Tobacco: Never Used Comments: quit in 1977. Alcohol Use Drinks/Week oz/Week Comments No Sex Assigned at Date Recorded Not on file Job Start Date Occupation Industry Not on file Not on file Not on file Travel History Travel Start Travel End No recent travel history available. Last Filed Vital Signs Vital Sign Reading Time Taken Blood Pressure 128/54 09/12/2017 7:47 AM CDT Pulse 60 09/12/2017 7:47 AM CDT Temperature 36.6 C (97.9 F) 09/12/2017 7:47 AM CDT Respiratory Rate 17 09/12/2017 7:47 AM CDT Oxygen Saturation 99% 09/12/2017 7:47 AM CDT Inhaled Oxygen Concentration 28% 08/01/2017 9:09 AM CDT Weight 79.5 kg (175 lb 4.8 oz) 09/12/2017 7:47 AM CDT Height 170.2 cm (5' 7") 09/10/2017 6:56 AM CDT Body Mass Index 27.46 09/12/2017 7:47 AM CDT Plan of Treatment Not on file Implants Implanted Type Area Template Storage Clerk Device Shelf Model / Identifier Expiration Serial / Date Lot Mynxgrip Vascular Closure Device Cardiovascular Groin [facility] 05/30 [id number] / Implanted: Qty: 1 on 07/15/2017 by Kris Avila MD / [id number] Synergy Stents-Coronary Coronary [place] 04/01/2018 [id number] / Implanted: Qty: 1 on 07/15/2017 by Kris Avila MD SCIENTIFIC / [id number] Synergy Stents-Coronary Coronary [place] 05/19/2018 [id number] / Implanted: Qty: 1 on 07/15/2017 by Kris Avila MD SCIENTIFIC / [id number] Synergy Stents-Coronary Coronary [place] 12/24/2017 [id number] / Implanted: Qty: 1 on 07/15/2017 by Kris Avila MD SCIENTIFIC / [id number] Synergy Stents-Coronary Coronary [place] 02/18/2018 [id number] / Implanted: Qty: 1 on 07/15/2017 by Kris Avila MD SCIENTIFIC / [id number] Valve Heart Deepa 3 26mm [id number] - [id number] Valves N/A: Aorta SIFUENTES 05/20/2019 [id number] / Implanted: Qty: 1 on 09/10/2017 by Kris Avila MD LIFESCI [id number] / Procedures Procedure Name Priority Date/Time Associated Comments Diagnosis VASCULAR DIAGRAM -SCAN 01/14/2018 12:13 PM GREEN HIDE INSPECTOR RHYTHM STRIP - SCAN 01/13/2018 2:31 PM GREEN HIDE INSPECTOR CARDIAC CATH REPORT - 09/15/2017 5:44 SCAN PM CDT REPORT OF PROCEDURE - 09/15/2017 11:10 ENDOSCOPY SCAN AM CDT RHYTHM STRIP - SCAN 09/15/2017 11:10 AM CDT ECHOCARDIOGRAM REPORT - 09/12/2017 10:50 SCAN AM CDT CBC W/PLT COUNT & AUTO Routine 09/12/2017 5:35 Results for this DIFFERENTIAL AM CDT procedure are in the results section. BASIC METABOLIC PANEL Routine 09/12/2017 5:35 Results for this (7) AM CDT procedure are in the results section. CBC W/PLT COUNT & AUTO Routine 09/12/2017 5:35 Results for this DIFFERENTIAL AM CDT procedure are in the results section. TRANSFUSION SERVICE 09/11/2017 5:51 REPORT - SCAN PM CDT ECHOCARDIOGRAM REPORT - 09/11/2017 2:21 SCAN PM CDT 2D ECHO W/ DOPPLER Routine 09/11/2017 11:04 Results for this (CW/PW/COLOR) AM CDT procedure are in the results section. CBC W/PLT COUNT & AUTO Routine 09/11/2017 3:37 Results for this DIFFERENTIAL AM CDT procedure are in the results section. CBC W/PLT COUNT & AUTO Routine 09/11/2017 3:37 Results for this DIFFERENTIAL AM CDT procedure are in the results section. BASIC METABOLIC PANEL Routine 09/11/2017 3:37 Results for this (7) AM CDT procedure are in the results section. XR CHEST 1 VIEW Routine 09/11/2017 3:20 Results for this PORTABLE/BEDSIDE AM CDT procedure are in the results section. PREPARE LEUKO-REDUCED STAT 09/10/2017 5:15 Results for this RBC PM CDT procedure are in the results section. POCT-ACT Routine 09/10/2017 4:31 Results for this PM CDT procedure are in the results section. ECG 12-LEAD Routine 09/10/2017 4:22 PM CDT Procedure Note - Interface, External Ris In - 09/10/2017 5:26 PM CDT Ventricular Rate 89 BPM Atrial Rate 101 BPM QRS Duration 156 ms Q-T Interval 422 ms QTC Calculation(Bazett) 513 ms R [place] 266 degrees T [place] 31 degrees Atrial fibrillation Right bundle branch block Inferior infarct (cited on or before 15-JUL-2017) Abnormal ECG When compared with ECG of 24-JUL-2017 19:44, Criteria for Anterior infarct are no longer Present ECG 12-LEAD Routine 09/10/2017 4:22 PM CDT POCT-ACT Routine 09/10/2017 3:56 PM CDT POCT-ACT Routine 09/10/2017 3:46 PM CDT TRANSESOPHAGEAL ECHO Routine 09/10/2017 1:21 PM CDT TRANSFUSION SERVICE REPORT - 08/25/2017 6:01 PM CDT SCAN CBC W/PLT COUNT & AUTO Routine 08/24/2017 1:59 PM CDT Results for this DIFFERENTIAL procedure are in the results section. TYPE AND SCREEN, AUTOMATED Routine 08/24/2017 1:59 PM CDT PROTHROMBIN TIME/INR Routine 08/24/2017 1:59 PM CDT B-TYPE NATRIURETIC FACTOR Routine 08/24/2017 1:59 PM CDT Results for this (BNP) procedure are in the results section. ALBUMIN Routine 08/24/2017 1:59 PM CDT CBC W/PLT COUNT & AUTO Routine 08/24/2017 1:59 PM CDT Results for this DIFFERENTIAL procedure are in the results section. BASIC METABOLIC PANEL (7) Routine 08/24/2017 1:59 PM CDT BASIC METABOLIC PANEL (7) Routine 08/05/2017 5:54 AM CDT URINALYSIS W/ MICROSCOPIC Routine 08/03/2017 4:51 PM CDT CBC W/PLT COUNT & AUTO Routine 08/03/2017 5:08 AM CDT Results for this DIFFERENTIAL procedure are in the results section. BASIC METABOLIC PANEL (7) Routine 08/03/2017 5:08 AM CDT CBC W/PLT COUNT & AUTO Routine 08/03/2017 5:08 AM CDT Results for this DIFFERENTIAL procedure are in the results section. BASIC METABOLIC PANEL (7) Routine 08/01/2017 5:03 AM CDT REPORT OF PROCEDURE - 07/29/2017 8:40 AM CDT ENDOSCOPY SCAN RHYTHM STRIP - SCAN 07/29/2017 8:40 AM CDT B-TYPE NATRIURETIC FACTOR Routine 07/29/2017 4:04 AM CDT Results for this (BNP) procedure are in the results section. BASIC METABOLIC PANEL (7) Routine 07/29/2017 4:04 AM CDT XR CHEST 1 VIEW Routine 07/28/2017 4:31 PM CDT Results for this PORTABLE/BEDSIDE procedure are in the results section. CBC W/PLT COUNT & AUTO Routine 07/25/2017 5:38 AM CDT Results for this DIFFERENTIAL procedure are in the results section. COMPREHENSIVE METABOLIC PANEL Routine 07/25/2017 5:38 AM CDT CBC W/PLT COUNT & AUTO Routine 07/25/2017 5:38 AM CDT Results for this DIFFERENTIAL procedure are in the results section. ECG 12-LEAD Routine 07/24/2017 7:44 PM CDT URINE CULTURE Routine 07/24/2017 6:04 PM CDT URINALYSIS W/ MICROSCOPIC Routine 07/24/2017 6:03 PM CDT CBC W/PLT COUNT & AUTO Routine 07/24/2017 3:21 AM CDT Results for this DIFFERENTIAL procedure are in the results section. B-TYPE NATRIURETIC FACTOR Routine 07/24/2017 3:21 AM CDT Results for this (BNP) procedure are in the results section. BASIC METABOLIC PANEL (7) Routine 07/24/2017 3:21 AM CDT CBC W/PLT COUNT & AUTO Routine 07/24/2017 3:21 AM CDT Results for this DIFFERENTIAL procedure are in the results section. TRANSFUSION SERVICE REPORT - 07/23/2017 5:41 PM CDT SCAN CORTISOL Routine 07/23/2017 5:51 AM CDT CBC (HEMOGRAM ONLY) Routine 07/23/2017 5:51 AM CDT PREPARE LEUKO-REDUCED RBC STAT 07/22/2017 11:55 PM CDT TRANSFUSION SERVICE REPORT - 07/22/2017 5:[address]/CTA ABDOMEN & PELVIS Routine 07/22/2017 1:[address]/CTA CHEST Routine 07/22/2017 1:21 PM CDT BASIC METABOLIC PANEL (7) Routine 07/22/2017 4:03 AM CDT B-TYPE NATRIURETIC FACTOR Routine 07/22/2017 4:03 AM CDT Results for this (BNP) procedure are in the results section. POCT-GLUCOSE METER Routine 07/21/2017 8:46 PM CDT TRANSFUSE LEUKO-REDUCED RED STAT 07/21/2017 2:35 PM CDT BLOOD CELLS TYPE AND SCREEN, AUTOMATED Routine 07/21/2017 9:59 AM CDT CBC W/PLT COUNT & AUTO Routine 07/20/2017 5:18 AM CDT Results for this DIFFERENTIAL procedure are in the results section. CBC W/PLT COUNT & AUTO Routine 07/20/2017 5:18 AM CDT Results for this DIFFERENTIAL procedure are in the results section. MAGNESIUM Routine 07/20/2017 5:18 AM CDT PHOSPHORUS Routine 07/20/2017 5:18 AM CDT BASIC METABOLIC PANEL (7) Routine 07/20/2017 5:18 AM CDT TRANSFUSION SERVICE REPORT - 07/19/2017 5:41 PM CDT SCAN MAGNESIUM Routine 07/19/2017 4:51 AM CDT BASIC METABOLIC PANEL (7) Routine 07/19/2017 4:51 AM CDT PREPARE LEUKO-REDUCED RBC SAAD 07/18/2017 11:54 PM CDT TRANSFUSION SERVICE REPORT - 07/18/2017 5:41 PM CDT SCAN ECG 12-LEAD Routine 07/18/2017 3:27 PM CDT ECG 12-LEAD Routine 07/18/2017 3:27 PM CDT Procedure Note - Interface, External Ris In - 07/18/2017 3:31 PM CDT Ventricular Rate 71 BPM Atrial Rate 78 BPM QRS Duration 160 ms Q-T Interval 426 ms QTC Calculation(Bazett) 462 ms R [place] 256 degrees T [place] -1 degrees Atrial fibrillation Right bundle branch block , plus right ventricular hypertrophy Inferior infarct (cited on or before 15-JUL-2017) Abnormal ECG When compared with ECG of 15-JUL-2017 15:54, Criteria for Anterior infarct are no longer Present QT has shortened CBC W/PLT COUNT & AUTO Routine 07/18/2017 8:03 Results for this DIFFERENTIAL AM CDT procedure are in the results section. CBC W/PLT COUNT & AUTO Routine 07/18/2017 8:03 Results for this DIFFERENTIAL AM CDT procedure are in the results section. MAGNESIUM Routine 07/18/2017 4:47 Results for this AM CDT procedure are in the results section. BASIC METABOLIC PANEL Routine 07/18/2017 4:47 Results for this (7) AM CDT procedure are in the results section. TRANSFUSE Routine 07/17/2017 7:23 LEUKO-REDUCED RED PM CDT BLOOD CELLS CARDIAC CATH REPORT - 07/17/2017 5:21 SCAN PM CDT TRANSFUSE Routine 07/17/2017 2:57 LEUKO-REDUCED RED PM CDT BLOOD CELLS CORTISOL Routine 07/17/2017 12:49 Results for this PM CDT procedure are in the results section. ECHOCARDIOGRAM REPORT 07/17/2017 11:52 - SCAN AM CDT CBC W/PLT COUNT & AUTO Routine 07/17/2017 4:20 Results for this DIFFERENTIAL AM CDT procedure are in the results section. URIC ACID Routine 07/17/2017 4:20 Results for this AM CDT procedure are in the results section. MAGNESIUM Routine 07/17/2017 4:20 Results for this AM CDT procedure are in the results section. COMPREHENSIVE Routine 07/17/2017 4:20 Results for this METABOLIC PANEL AM CDT procedure are in the results section. CBC W/PLT COUNT & AUTO Routine 07/17/2017 4:20 Results for this DIFFERENTIAL AM CDT procedure are in the results section. B-TYPE NATRIURETIC Routine 07/17/2017 4:20 Results for this FACTOR (BNP) AM CDT procedure are in the results section. XR CHEST 1 VIEW Routine 07/17/2017 3:47 Results for this PORTABLE/BEDSIDE AM CDT procedure are in the results section. SODIUM, RANDOM URINE Routine 07/16/2017 6:44 Results for this PM CDT procedure are in the results section. PROTEIN, RANDOM URINE Routine 07/16/2017 6:44 Results for this PM CDT procedure are in the results section. CREATININE, RANDOM Routine 07/16/2017 6:44 Results for this URINE PM CDT procedure are in the results section. OSMOLALITY, URINE Routine 07/16/2017 6:44 Results for this PM CDT procedure are in the results section. TRANSFUSION SERVICE 07/16/2017 5:42 REPORT - SCAN PM CDT 2D ECHO W/ DOPPLER STAT 07/16/2017 4:17 Results for this (CW/PW/COLOR) PM CDT procedure are in the results section. XR CHEST 1 VIEW STAT 07/16/2017 3:53 Results for this PORTABLE/BEDSIDE PM CDT procedure are in the results section. XR CHEST 1 VIEW STAT 07/16/2017 8:46 Results for this PORTABLE/BEDSIDE AM CDT procedure are in the results section. BASIC METABOLIC PANEL Routine 07/16/2017 1:44 Results for this (7) AM CDT procedure are in the results section. CBC (HEMOGRAM ONLY) STAT 07/16/2017 1:44 Results for this AM CDT procedure are in the results section. LACTIC ACID, VENOUS, STAT 07/16/2017 1:44 Results for this WHOLE BLOOD AM CDT procedure are in the results section. B-TYPE NATRIURETIC STAT 07/16/2017 1:44 Results for this FACTOR (BNP) AM CDT procedure are in the results section. HEMOGLOBIN AND Routine 07/15/2017 7:41 Results for this HEMATOCRIT PM CDT procedure are in the results section. ECG 12-LEAD Routine 07/15/2017 3:54 Results for this PM CDT procedure are in the results section. TYPE AND SCREEN, STAT 07/15/2017 3:52 Results for this AUTOMATED PM CDT procedure are in the results section. B-TYPE NATRIURETIC Routine 07/15/2017 3:50 Results for this FACTOR (BNP) PM CDT procedure are in the results section. LACTIC ACID, VENOUS, Routine 07/15/2017 3:50 Results for this WHOLE BLOOD PM CDT procedure are in the results section. MAGNESIUM Routine 07/15/2017 3:50 Results for this PM CDT procedure are in the results section. BASIC METABOLIC PANEL Routine 07/15/2017 3:50 Results for this (7) PM CDT procedure are in the results section. CBC (HEMOGRAM ONLY) Routine 07/15/2017 3:50 Results for this PM CDT procedure are in the results section. POCT-ACT Routine 07/15/2017 12:08 Results for this PM CDT procedure are in the results section. POCT-ACT Routine 07/15/2017 11:16 Results for this AM CDT procedure are in the results section. POCT-ACT Routine 07/15/2017 10:45 Results for this AM CDT procedure are in the results section. L CATH & CORONARY 07/15/2017 9:31 Nonrheumatic aortic ANGIOS AM CDT valve stenosis Case Notes 2CASE POP6 POSS PCI after 02/28/2017 Results VASCULAR DIAGRAM -SCAN (01/14/2018 12:13 PM GREEN HIDE INSPECTOR) Narrative Performed At RHYTHM STRIP - SCAN (01/13/2018 2:31 PM GREEN HIDE INSPECTOR)Only the most recent of3 resultswithin the time period is included. Narrative Performed At CARDIAC CATH REPORT - SCAN (09/15/2017 5:44 PM CDT) Narrative Performed At EKG-SCANNED (09/15/2017 11:10 AM CDT)Only the most recent of2 resultswithin the time period is included. Narrative Performed At ECHOCARDIOGRAM REPORT - SCAN (09/12/2017 10:50 AM CDT) Narrative Performed At CBC with platelet count + automated diff (09/12/2017 5:35 AM CDT)Only the most recent of9 resultswithin the time period is included. WBC 4.6 3.5 - 10.5 K/L [facility] RBC 2.50 (L) 4.63 - 6.08 M/L [facility] Hemoglobin 8.4 (L) 13.7 - 17.5 GM/DL [facility] Hematocrit 26.3 (L) 40.1 - 51.0 % [facility] MCV 105.2 (H) 79.0 - 92.2 fL [facility] MCH 33.6 (H) 25.7 - 32.2 pg [facility] MCHC 31.9 (L) 32.3 - 36.5 GM/DL [facility] RDW 15.6 (H) 11.6 - 14.4 % [facility] Platelets 62 (L) 150 - 450 K/CU MM [facility] MPV 10.9 9.4 - 12.4 fL [facility] nRBC 0 0 - 0 /100 WBC [facility] % Neutros 62 % [facility] % Lymphs 18 % [facility] % Monos 17 % [facility] % Eos 3 % [facility] % Baso 0 % [facility] # Neutros 2.88 1.78 - 5.38 K/L [facility] # Lymphs 0.82 (L) 1.32 - 3.57 K/L [facility] # Monos 0.78 0.30 - 0.82 K/L [facility] # Eos 0.12 0.04 - 0.54 K/L [facility] # Baso 0.01 0.01 - 0.08 K/L [facility] Immature 0 0 - 1 % [facility] Granulocytes-[facility] Specimen Blood - Arm, Right Performing Organization Address City/State/Zipcode Phone Number [facility] [address] [place] [address] [phone] CENTER Basic Metabolic Panel (09/12/2017 5:35 AM CDT)Only the most recent of14 resultswithin the time period is included. Sodium 130 (L) 136 - 145 meq/L [facility] Potassium 4.2 3.5 - 5.1 meq/L [facility] Chloride 99 98 - 107 meq/L [facility] CO2 23 22 - 29 meq/L [facility] BUN 25 (H) 7 - 21 mg/dL [facility] Creatinine 1.64 (H) 0.57 - 1.25 mg/dL [facility] Glucose 154 (H) 70 - 105 mg/dL [facility] Calcium 8.7 8.4 - 10.2 mg/dL [facility] EGFR 40Comment: ESTIMATED GFR IS mL/min/1.73 sq m [facility] NOT ACCURATE CREATININE [facility] CENTER CLEARANCE IN PREDICTING GLOMERULAR FILTRATION RATE. ESTIMATED GFR IS NOT APPLICABLE FOR DIALYSIS PATIENTS. Specimen Blood - Arm, Right Performing Organization Address City/State/Zipcode Phone Number [facility] [address] [place] [address] CENTER TRANSFUSION SERVICE REPORT - SCAN (09/11/2017 5:51 PM CDT)Only the most recent of7 resultswithin the time period is included. Narrative Performed At ECHOCARDIOGRAM REPORT - SCAN (09/11/2017 2:21 PM CDT) Narrative Performed At 2D Echo W/Doppler(CW/PW/Color) (09/11/2017 11:04 AM CDT) Ejection Fraction [facility] Narrative Performed At Transthoracic Echocardiography Report (TTE) [facility] Demographics Patient Name KAYLEE ARRIAGADate of Study 09/11/2017 REHANA [id number] GenderMale Visit Number [id number] Unknown [id number] Room Number [id number] Number Date of Birth2Referring Physician Margarita Solano Age87 year(s)Ingot Supervisor AMOL Foley InterpretingBSLM C Needs to be Pre Physician Read Suzan Dixon MD Procedure Type of Study TTE procedure:2DECHO W DOPPLER(CW/PW/COLOR) (Routine) Indications:Initial post operative evaluation of prosthetic valve. Clinical History L.CATH/CORONARY 07/15/17, BYPASS AORTA/CORNOARY, A.FIB, CAD, CHF, HTN, MT HGB 9.2 HCT 29.1 % Contrast Medium: Definity. Amount - 2 ml Height: 67 inches Weight: 78.93 kg (174 lbs) BSA: 1.91 m^2 BMI: 27.25 kg/m^2 HR: 68 bpm BP: 103/46 mmHg Summary Technically difficult study. Patient sitting up during the study. Atrial fibrillation with controlled ventricular response noted. Poor apical views. 1. Normal left ventricular chamber size. Moderate LVH. Normal overall left ventricular systolic function. No apparent segmental wall motion abnormalities.LVEF by Gale's method of disk assessment is normal (55-60%) . LV diastolic function is indeterminate due to presence of atrial fibrillation. 2. RV chamber size is moderately enlarged . Global RV systolic function is normal . 3. LA size is severely enlarged . RA size is moderately dilated. 4. S/P TAVR valve placement. Valve is well seated. Acceptable gradients by Doppler. DVI 0.54. Trace AI noted. 5. Mild tricuspid regurgitation. Peak systolic pressure may be underestimated; partial TR signal. Estimated peak systolic pressure is at least 50 mmHg plus clinically estimated RAP. The estimated RA pressure by IVC dynamics indeterminate . 6. No significant pericardial effusion is visualized. Previous Study In comparison with the prior exam 07/16/2017, patient is now S/P TAVR placement. Signature Findings Rhythm/BPIrregular rhythm during the exam. At ria fibrillation with controlled ventricular re sponse. Left Ventricle Technically difficult study. Patient sitting up du ring the study. Atrial fibrillation with co ntrolled ventricular response noted. Poor apical vi ews. No rmal left ventricular chamber size. Moderate LVH. No rmal overall left ventricular systolic function. No apparent segmental wall motion abnormalities. Go od endocardial definition with use of IV Definity co ntrast. Gl obal LV systolic function normal . LV EF by Gale's method of disk assessment is no rmal (55-60%) . LV diastolic function is indeterminate due to pr esence of atrial fibrillation. Left AtriumLA size is severely enlarged . Right VentricleRV chamber size is moderately enlarged . Gl obal RV systolic function is normal . Right Atrium RA size is moderately dilated. Aortic Valve S/P TAVR valve placement. Valve is well seated. Ac ceptable gradients by Doppler. DVI 0.54. Trace AI no yomaira. Mitral Valve Mild MV leaflet thickening. Mi ld mitral regurgitation. Tricuspid ValveTV structure is normal. Mild tricuspid re gurgitation. Peak systolic pressure may be un derestimated; partial TR signal. Estimated peak sy stolic pressure is at least 50 mmHg plus cl inically estimated RAP. Pulmonic Valve Normal PV structure and function by limited views an d Doppler. AortaAortic root size (SInus of Valsalva diameter) is no rmal . PericardiumNo significant pericardial effusion is visualized. IVC/SVC/PA/PV/PleuralThe estimated RA pressure by IVC dynamics in determinate . Th e inferior vena cava is not well visualized. Chambers/Structures Left Atrium LA Dimension: 6.2 cm LA Volume: 117 ml LA Vol. Index: 61 ml/m^2 Left Ventricle LVIDd: 4.5 cm LV Septum Diastolic: 1.7 cm LV PW Diastolic: 1.4 cm LVEDV Gale's:133 ml LVESV Gale's:60 ml LVEF Gale's: 55 %L VEDVI: 70 ml/m^2 LVESVI: 31 ml/m^2 LVOT Diameter: 2 cm Right Atrium RA Area: 23 cm^2 Right Ventricle RV Diast Dim.: 4.9 cm Aorta Ao Root S of Harleen.: 3.5 cm Doppler/Quantitative Measurements Aortic Valve Peak Velocity: 1.98 m/sMean Gradient: 7.72 mmHg Peak Gradient: 15.68 mmHg AV Area (continuity): 1.7 cm^2 AV VTI: 38.8 cm AV DVI: 0.54 LVOT LVOT Diameter: 2 cm LVOT VTI: 21 cm LVOT Area: 3.14 cm^2LVOT SV:65.94 ml LVOT CO: 4.48 l/min LVOT CI: 2.35 l/min/m^2 Tricuspid Valve TR Velocity: 3.62 m/s TR Gradient: 52.42 mmHg Procedure Note Interface, External Ris In - 09/12/2017 10:29 AM CDT Transthoracic Echocardiography Report (TTE) Demographics Patient Name KAYLEE ARRIAGA Date of Study 09/11/2017 REHANA Gender Male Visit Number [id number] Race Unknown Room Number C632 Number Date of 1930 Referring Physician Margarita Solano Age 87 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 Clinical History L.CATH/CORONARY 07/15/17, BYPASS AORTA/CORNOARY, A.FIB, CAD, CHF, HTN, MT HGB 9.2 HCT 29.1 % Contrast Medium: Definity. Amount - 2 ml Height: 67 inches Weight: 78.93 kg (174 lbs) BSA: 1.91 m^2 BMI: 27.25 kg/m^2 HR: 68 bpm BP: 103/46 mmHg Summary Technically difficult study. Patient sitting up during the study. Atrial fibrillation with controlled ventricular response noted. Poor apical views. 1. Normal left ventricular chamber size. Moderate LVH. Normal overall left ventricular systolic function. No apparent segmental wall motion abnormalities.LVEF by Gale's method of disk assessment is normal (55-60%) . LV diastolic function is indeterminate due to presence of atrial fibrillation. 2. RV chamber size is moderately enlarged . Global RV systolic function is normal . 3. LA size is severely enlarged . RA size is moderately dilated. 4. S/P TAVR valve placement. Valve is well seated. Acceptable gradients by Doppler. DVI 0.54. Trace AI noted. 5. Mild tricuspid regurgitation. Peak systolic pressure may be underestimated; partial TR signal. Estimated peak systolic pressure is at least 50 mmHg plus clinically estimated RAP. The estimated RA pressure by IVC dynamics indeterminate . 6. No significant pericardial effusion is visualized. Previous Study In comparison with the prior exam 07/16/2017, patient is now S/P TAVR placement. Signature Findings Rhythm/BP Irregular rhythm during the exam. Atrial fibrillation with controlled ventricular response. Left Ventricle Technically difficult study. Patient sitting up during the study. Atrial fibrillation with controlled ventricular response noted. Poor apical views. Normal left ventricular chamber size. Moderate LVH. Normal overall left ventricular systolic function. No apparent segmental wall motion abnormalities. Good endocardial definition with use of IV Definity contrast. Global LV systolic function normal . LVEF by Gale's method of disk assessment is normal (55-60%) . LV diastolic function is indeterminate due to presence of atrial fibrillation. Left Atrium LA size is severely enlarged . Right Ventricle RV chamber size is moderately enlarged . Global RV systolic function is normal . Right Atrium RA size is moderately dilated. Aortic Valve S/P TAVR valve placement. Valve is well seated. Acceptable gradients by Doppler. DVI 0.54. Trace AI noted. Mitral Valve Mild MV leaflet thickening. Mild mitral regurgitation. Tricuspid Valve TV structure is normal. Mild tricuspid regurgitation. Peak systolic pressure may be underestimated; partial TR signal. Estimated peak systolic pressure is at least 50 mmHg plus clinically estimated RAP. Pulmonic Valve Normal PV structure and function by limited views and Doppler. Aorta Aortic root size (SInus of Valsalva diameter) is normal . Pericardium No significant pericardial effusion is visualized. IVC/SVC/PA/PV/Pleural The estimated RA pressure by IVC dynamics indeterminate . The inferior vena cava is not well visualized. Chambers/Structures Left Atrium LA Dimension: 6.2 cm LA Volume: 117 ml LA Vol. Index: 61 ml/m^2 Left Ventricle LVIDd: 4.5 cm LV Septum Diastolic: 1.7 cm LV PW Diastolic: 1.4 cm LVEDV Gale's:133 ml LVESV Gale's:60 ml LVEF Gale's: 55 % LVEDVI: 70 ml/m^2 LVESVI: 31 ml/m^2 LVOT Diameter: 2 cm Right Atrium RA Area: 23 cm^2 Right Ventricle RV Diast Dim.: 4.9 cm Aorta Ao Root S of Harleen.: 3.5 cm Doppler/Quantitative Measurements Aortic Valve Peak Velocity: 1.98 m/s Mean Gradient: 7.72 mmHg Peak Gradient: 15.68 mmHg AV Area (continuity): 1.7 cm^2 AV VTI: 38.8 cm AV DVI: 0.54 LVOT LVOT Diameter: 2 cm LVOT VTI: 21 cm LVOT Area: 3.14 cm^2 LVOT SV:65.94 ml LVOT CO: 4.48 l/min LVOT CI: 2.35 l/min/m^2 Tricuspid Valve TR Velocity: 3.62 m/s TR Gradient: 52.42 mmHg Performing Organization Address City/State/Zipcode Phone Number [facility] XR chest 1 view portable / bedside (09/11/2017 3:20 AM CDT)Only the most recent of5 resultswithin the time period is included. Narrative Performed At FINAL REPORT [employer] RAD, CHEST, 1 VIEW, NON DEPT INDICATION: chf COMPARISON: Prior day's exam FINDINGS: Portable frontal view of the chest. IMPRESSION: Support Lines: Interval placement of right IJ central venous catheter with tip overlying the distal SVC. Lungs and pleura: Worsened left retrocardiac opacity favored to represent partial left lower lobe collapse. Small bilateral pleural effusions. Interval increase in interstitial lung markings consistent with worsening interstitial pulmonary edema. No pneumothorax. Heart and mediastinum: Stable contours. Stable surgical changes. Additional findings: None. Signed: David Jha MD Report Verified Date/Time:09/11/2017 04:10:08 Reading Location: [address] Reading Room Procedure Note Interface, External Ris In - 09/11/2017 4:30 AM CDT FINAL REPORT RAD, CHEST, 1 VIEW, NON DEPT INDICATION: chf COMPARISON: Prior day's exam FINDINGS: Portable frontal view of the chest. IMPRESSION: Support Lines: Interval placement of right IJ central venous catheter with tip overlying the distal SVC. Lungs and pleura: Worsened left retrocardiac opacity favored to represent partial left lower lobe collapse. Small bilateral pleural effusions. Interval increase in interstitial lung markings consistent with worsening interstitial pulmonary edema. No pneumothorax. Heart and mediastinum: Stable contours. Stable surgical changes. Additional findings: None. Signed: David Jha MD Report Verified Date/Time: 09/11/2017 04:10:08 Reading Location: [address] Reading Room Performing Organization Address [facility] [place] [facility] [place] GE RIS Prepare Leuko-Red RBC (09/10/2017 5:15 PM CDT)Only the most recent of3 resultswithin the time period is included. CROSSMATCH COMPATIBLE SAFETRACE TX Unit ABO O Pos SAFETRACE TX UNIT NUMBER [id number] SAFETRACE TX Status RETURNED FROM ISSUE SAFETRACE TX Blood Bank Product RED BLOOD CELLS SAFETRACE TX PRODUCT CODE [id number] SAFETRACE TX CROSSMATCH COMPATIBLE SAFETRACE TX Unit ABO O Pos SAFETRACE TX UNIT NUMBER [id number] SAFETRACE TX Status RETURNED FROM ISSUE SAFETRACE TX Blood Bank Product RED BLOOD CELLS SAFETRACE TX PRODUCT CODE [id number] SAFETRACE TX CROSSMATCH COMPATIBLE SAFETRACE TX Unit ABO O Pos SAFETRACE TX UNIT NUMBER [id number] SAFETRACE TX Status RETURNED FROM ISSUE SAFETRACE TX Blood Bank Product RED BLOOD CELLS SAFETRACE TX PRODUCT CODE [id number] SAFETRACE TX CROSSMATCH COMPATIBLE SAFETRACE TX Unit ABO O Pos SAFETRACE TX UNIT NUMBER [id number] SAFETRACE TX Status RETURNED FROM ISSUE SAFETRACE TX Blood Bank Product RED BLOOD CELLS SAFETRACE TX PRODUCT CODE [id number] SAFETRACE TX Specimen Other Performing Organization Address [facility] [place] Number SAFETRACE TX POC ACTIVATED CLOTTING TIME (09/10/2017 4:31 PM CDT)Only the most recent of6 resultswithin the time period is included. Activated Clotting Time 142Comment: TESTED AT sec [facility] [address] [facility] [id number] Specimen Blood Performing Organization Address City/[facility]/Zipcode Phone Number [facility] [address] [place] [address] CENTER ECG 12 lead (09/10/2017 4:22 PM CDT)Only the most recent of4 resultswithin the time period is included. Narrative Performed At Ventricular Rate 89 BPM GE MUSE Atrial Rate 101 BPM QRS Duration 156 ms Q-T Interval 422 ms QTC Calculation(Bazett) 513 ms R [place] 266 degrees T [place] 31 degrees Atrial fibrillation Right bundle branch block , plus right ventricular hypertrophy Cannot rule out Inferior infarct (cited on or before 15-JUL-2017) Nonspecific ST abnormality Abnormal ECG When compared with ECG of 24-JUL-2017 19:44, Criteria for Anterior infarct are no longer Present Confirmed by Kike Berry ([id number]) on 09/11/2017 10:16:01 AM Procedure Note Interface, External Ris In - 09/11/2017 10:16 AM CDT Ventricular Rate 89 BPM Atrial Rate 101 BPM QRS Duration 156 ms Q-T Interval 422 ms QTC Calculation(Bazett) 513 ms R [place] 266 degrees T [place] 31 degrees Atrial fibrillation Right bundle branch block , plus right ventricular hypertrophy Cannot rule out Inferior infarct (cited on or before 15-JUL-2017) Nonspecific ST abnormality Abnormal ECG When compared with ECG of 24-JUL-2017 19:44, Criteria for Anterior infarct are no longer Present Confirmed by Kike Berry ([id number]) on 09/11/2017 10:16:01 AM Performing Organization Address City/[facility]/Zipcode Phone Number [employer] MUSE Transesophageal echo (09/10/2017 1:21 PM CDT) Ejection Fraction sment is increased (>60% [facility]ACS Narrative Performed At Transesophageal Echocardiography Report (ROYAL) [facility] ECHO [facility]ART[facility] paylevenCKESSON CPACS Demographics Patient Name KAYLEE ARRIAGADate of Study 09/10/2017 REHANA [id number] GenderMale Visit Number [id number] Unknown [id number] Room Number [id number] Number Date of Birth2Referring Physician Margarita Solano Age87 year(s)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 Risks, complications and alternative treatments were reviewed. Written consent was obtained. Procedure Type of Study ROYAL procedure:TRANSESOPHAGEAL ECHO (Routine) Indications:TAVR. Clinical History HGB 10.5 HCT 32.3 % GERARDO, A-fib, CHF, CAD, HLD, HTN, MT, PHTN, Severe s/p CABG s/p Coronary stent Height: 67 inches Weight: 78.93 kg (174 lbs) BSA: 1.91 m^2 BMI: 27.25 kg/m^2 HR: 90 bpm BP: 184/74 mmHg ROYAL Performed By: the attending and the fellow Procedure Informed Consent Procedure consent form obtained. ROYAL procedure notes The patient was counseled and informed consent was obtained. Anesthesia was administered by anesthesia team as part of TAVR procedure. The esophagus was intubated without difficulty. The probe was passed and all standard echocardiographic views were obtained. The patient tolerated the procedure well. Summary Mild concentric LV hypertrophy. Estimated LVEF by qualitative assessment is increased (>60%) . A percutaneous (TAVR) biologic AoV prosthesis is visualized . The prosthetic AoV appears well-seated. There is mild paravalvular leak in anterior (6 o'clock) and postero-lateral (2 o'clock) positions. Prosthetic AoV systolic gradients are normal . The anterior leaflet of the mitral valve is restricted in motion. There is possible flail motion of the A3 segment. Severe anteriorly directed mitral regurgitation. Elevated gradients across MV; mitral stenosis severity unreliable due to severe MR. Signature Findings Technical Quality: Technically adequate exam. LeftMild concentric LV hypertrophy. Ventricle Estimated LVEF by qualitative assessment is increased (>60%) . Left Atrium LA is enlarged but severity assessment is unreliable due to known ROYAL sector size limitation. Aortic ValveA percutaneous (TAVR) biologic AoV prosthesis is visualized . The prosthetic AoV appears well-seated. There is mild paravalvular leak in anterior (6 o'clock) and postero-lateral (2 o'clock) positions. Prosthetic AoV systolic gradients are normal . Mitral ValveThe anterior leaflet of the mitral valve is restricted in motion. There is possible flail motion of the A3 segment. Severe anteriorly directed mitral regurgitation. Elevated gradients across MV; mitral stenosis severity unreliable due to severe MR. Tricuspid Mild TV leaflet thickening. Valve Mild tricuspid regurgitation. PulmonicPV is not well visualized. Valve Pericardium No significant pericardial effusion is visualized. Chambers/Structures Left Ventricle LVOT Diameter: 2.1 cm Doppler/Quantitative Measurements Mitral Valve Mean Velocity: 1.27 m/s Mean Gradient: 7.22 mmHg Area (continuity): 2.71 cm^2 MV VTI: 35.46 cm MV Dean. Peak: 1.88 m/s Aortic Valve Peak Velocity: 1.33 m/sMean Velocity: 0.83 m/s Peak Gradient: 7.02 mmHg Mean Gradient: 3.33 mmHg AV Area (continuity): 2.87 cm^2 AV VTI: 33.44 cm AV DVI: 0.83 LVOT Peak Velocity: 1.22 m/s Peak Gradient: 5.97 mmHg Mean Velocity: 0.73 m/s Mean Gradient: 2.57 mmHg LVOT Diameter: 2.1 cm LVOT VTI: 27.75 cm LVOT Area: 3.46 cm^2LVOT SV:96.07 ml LVOT CO: 8.65 l/min LVOT CI: 4.53 l/min/m^2 Procedure Note Interface, External Ris In - 09/11/2017 1:38 PM CDT Transesophageal Echocardiography Report (ROYAL) Demographics Patient Name KAYLEE ARRIAGA Date of Study 09/10/2017 REHANA Gender Male Visit Number [id number] Race Unknown Room Number CL-07 Number Date of 1930 Referring Physician Margarita Solano Age 87 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 Risks, complications and alternative treatments were reviewed. Written consent was obtained. Procedure Type of Study ROYAL procedure:TRANSESOPHAGEAL ECHO (Routine) Indications:TAVR. Clinical History HGB 10.5 HCT 32.3 % GERARDO, A-fib, CHF, CAD, HLD, HTN, MT, PHTN, Severe s/p CABG s/p Coronary stent Height: 67 inches Weight: 78.93 kg (174 lbs) BSA: 1.91 m^2 BMI: 27.25 kg/m^2 HR: 90 bpm BP: 184/74 mmHg ROYAL Performed By: the attending and the fellow Procedure Informed Consent Procedure consent form obtained. ROYAL procedure notes The patient was counseled and informed consent was obtained. Anesthesia was administered by anesthesia team as part of TAVR procedure. The esophagus was intubated without difficulty. The probe was passed and all standard echocardiographic views were obtained. The patient tolerated the procedure well. Summary Mild concentric LV hypertrophy. Estimated LVEF by qualitative assessment is increased (>60%) . A percutaneous (TAVR) biologic AoV prosthesis is visualized . The prosthetic AoV appears well-seated. There is mild paravalvular leak in anterior (6 o'clock) and postero-lateral (2 o'clock) positions. Prosthetic AoV systolic gradients are normal . The anterior leaflet of the mitral valve is restricted in motion. There is possible flail motion of the A3 segment. Severe anteriorly directed mitral regurgitation. Elevated gradients across MV; mitral stenosis severity unreliable due to severe MR. Signature Findings Technical Quality: Technically adequate exam. Left Mild concentric LV hypertrophy. Ventricle Estimated LVEF by qualitative assessment is increased (>60%) . Left Atrium LA is enlarged but severity assessment is unreliable due to known ROYAL sector size limitation. Aortic Valve A percutaneous (TAVR) biologic AoV prosthesis is visualized . The prosthetic AoV appears well-seated. There is mild paravalvular leak in anterior (6 o'clock) and postero-lateral (2 o'clock) positions. Prosthetic AoV systolic gradients are normal . Mitral Valve The anterior leaflet of the mitral valve is restricted in motion. There is possible flail motion of the A3 segment. Severe anteriorly directed mitral regurgitation. Elevated gradients across MV; mitral stenosis severity unreliable due to severe MR. Tricuspid Mild TV leaflet thickening. Valve Mild tricuspid regurgitation. Pulmonic PV is not well visualized. Valve Pericardium No significant pericardial effusion is visualized. Chambers/Structures Left Ventricle LVOT Diameter: 2.1 cm Doppler/Quantitative Measurements Mitral Valve Mean Velocity: 1.27 m/s Mean Gradient: 7.22 mmHg Area (continuity): 2.71 cm^2 MV VTI: 35.46 cm MV Dean. Peak: 1.88 m/s Aortic Valve Peak Velocity: 1.33 m/s Mean Velocity: 0.83 m/s Peak Gradient: 7.02 mmHg Mean Gradient: 3.33 mmHg AV Area (continuity): 2.87 cm^2 AV VTI: 33.44 cm AV DVI: 0.83 LVOT Peak Velocity: 1.22 m/s Peak Gradient: 5.97 mmHg Mean Velocity: 0.73 m/s Mean Gradient: 2.57 mmHg LVOT Diameter: 2.1 cm LVOT VTI: 27.75 cm LVOT Area: 3.46 cm^2 LVOT SV:96.07 ml LVOT CO: 8.65 l/min LVOT CI: 4.53 l/min/m^2 Performing Organization Address City/State/Zipcode Phone Number [facility] Type and screen, automated (08/24/2017 1:59 PM CDT)Only the most recent of3 resultswithin the time period is included. ABO/RH AUTOMATED (BEAKER) O POSITIVE [facility] Ab Scrn NEGATIVE [facility] Specimen Blood Performing Organization Address [facility] Phone Number [address] [address] [phone] Prothrombin time/INR (08/24/2017 1:59 PM CDT) Protime 16.7 (H) 11.7 - 14.7 seconds [facility] INR 1.4 <=5.9 [facility] Specimen Blood Narrative Performed At [facility] RECOMMENDED COUMADIN/WARFARIN INR THERAPY RANGES STANDARD DOSE: 2.0 - 3.0 Includes: PROPHYLAXIS for venous thrombosis, systemic embolization; TREATMENT for venous thrombosis and/or pulmonary embolus. HIGH RISK: Target INR is 2.5-3.5 for patients with mechanical heart valves. Performing Organization Address [facility] Phone Number [address] [address] CENTER B-type Natriuretic Factor (BNP) (08/24/2017 1:59 PM CDT)Only the most recent of7 resultswithin the time period is included. BNP 170 (H) 0 - 100 pg/mL [facility] Specimen Blood Performing Organization Address City/[facility] Phone Number [address] [address] [phone] CENTER Albumin (08/24/2017 1:59 PM CDT) Albumin 4.2 3.5 - 5.0 g/dL [facility] Specimen Blood Performing Organization Address [facility] Phone Number [address] [address] [phone] CENTER Urinalysis w/Microscopic (08/03/2017 4:51 PM CDT)Only the most recent of2 resultswithin the time period is included. Color, UA Yellow [facility] Clarity, UA Cloudy [facility] Specific Logan, UA 1.012 1.001 - 1.035 [facility] pH, UA 6.5 5.0 - 8.0 [facility] Protein, UA 50 mg/dL (A) Negative [facility] Glucose, UA Negative Negative [facility] Ketones, UA Negative Negative [facility] Bilirubin, UA Negative Negative [facility] Blood, UA Small (A) Negative [facility] Nitrite, UA Negative Negative [facility] Leukocytes, UA Large (A) Negative [facility] Urobilinogen, UA 0.2 0.2 - 1.0 mg/dL [facility] RBC, UA 0 /HPF [facility] WBC, UA >182 /HPF [facility] Bacteria, UA Moderate [facility] Specimen Source Urine, Clean Catch [facility] Specimen Urine - Urine, Clean Catch Performing Organization Address City/State/Zipcode Phone Number [facility] [address] [place] [address] CENTER Comprehensive metabolic panel (07/25/2017 5:38 AM CDT)Only the most recent of2 resultswithin the time period is included. Protein, Total 6.3 6.0 - 8.3 gm/dL [facility] Albumin 3.4 (L) 3.5 - 5.0 g/dL [facility] Alkaline Phosphatase 122 40 - 150 U/L [facility] Total Bilirubin 2.2 (H) 0.2 - 1.2 mg/dL [facility] Sodium 137 136 - 145 meq/L [facility] Potassium 4.8 3.5 - 5.1 meq/L [facility] Chloride 102 98 - 107 meq/L [facility] CO2 27 22 - 29 meq/L [facility] BUN 17 7 - 21 mg/dL [facility] Creatinine 0.80 0.57 - 1.25 mg/dL [facility] Glucose 122 (H) 70 - 105 mg/dL [facility] Calcium 9.1 8.4 - 10.2 mg/dL [facility] AST 31 5 - 34 U/L [facility] ALT 19 6 - 55 U/L [facility] EGFR 92Comment: ESTIMATED GFR mL/min/1.73 sq m [facility] IS NOT ACCURATE [facility] CREATININE CLEARANCE IN PREDICTING GLOMERULAR FILTRATION RATE. ESTIMATED GFR IS NOT APPLICABLE FOR DIALYSIS PATIENTS. Specimen Blood Narrative Performed At [facility] Specimen slightly icteric Performing Organization Address City/State/Zipcode Phone Number [facility] [address] [place] [address] CENTER Urine culture (07/24/2017 6:04 PM CDT) Result [facility] ([facility] Result STENOTROPHOMONAS MALTOPHILIA (A) [facility] Specimen Urine - Urine, Clean Catch Organism Antibiotic Method Susceptibility Klebsiella pneumoniae ssp Amikacin <=2: Susceptible pneumoniae Klebsiella pneumoniae ssp Ampicillin + Sulbactam 8: Susceptible pneumoniae Klebsiella pneumoniae ssp Aztreonam <=1: Susceptible pneumoniae Klebsiella pneumoniae ssp Cefepime <=1: Susceptible pneumoniae Klebsiella pneumoniae ssp Cefoxitin <=4: Susceptible pneumoniae Klebsiella pneumoniae ssp Ceftazidime <=1: Susceptible pneumoniae Klebsiella pneumoniae ssp Ceftriaxone <=1: Susceptible pneumoniae Klebsiella pneumoniae ssp Ertapenem <=0.5: Susceptible pneumoniae Klebsiella pneumoniae ssp Gentamicin <=1: Susceptible pneumoniae Klebsiella pneumoniae ssp Levofloxacin <=0.12: Susceptible pneumoniae Klebsiella pneumoniae ssp Meropenem <=0.25: Susceptible pneumoniae Klebsiella pneumoniae ssp Nitrofurantoin 128: Resistant pneumoniae Klebsiella pneumoniae ssp Piperacillin + Tazobactam <=4: Susceptible pneumoniae Klebsiella pneumoniae ssp Tetracycline <=1: Susceptible pneumoniae Klebsiella pneumoniae ssp Tobramycin <=1: Susceptible pneumoniae Klebsiella pneumoniae ssp Trimethoprim + <=20: Susceptible pneumoniae Sulfamethoxazole Stenotrophomonas maltophilia Ceftazidime >16: Resistant Stenotrophomonas maltophilia Levofloxacin <=1: Susceptible Stenotrophomonas maltophilia Minocycline <=1: Susceptible Stenotrophomonas maltophilia Ticarcillin + Clavulanic Acid 32: Resistant Stenotrophomonas maltophilia Trimethoprim + <=40: Susceptible Sulfamethoxazole Performing Organization Address [facility] Phone Number [address] [address] TORRANCE Cortisol (07/23/2017 5:51 AM CDT)Only the most recent of2 resultswithin the time period is included. Cortisol, Total 12.9 3.7 - 19.4 ug/dL [facility] Specimen Blood - Arm, Right Performing Organization Address [facility] [facility] [place] [address] [id number] [place] CBC (Hemogram only) (07/23/2017 5:51 AM CDT)Only the most recent of3 resultswithin the time period is included. WBC 6.3 3.5 - 10.5 K/L [facility] RBC 2.84 (L) 4.63 - 6.08 M/L [facility] Hemoglobin 9.3 (L) 13.7 - 17.5 GM/DL [facility] Hematocrit 28.1 (L) 40.1 - 51.0 % [facility] MCV 98.9 (H) 79.0 - 92.2 fL [facility] MCH 32.7 (H) 25.7 - 32.2 pg [facility] MCHC 33.1 32.3 - 36.5 GM/DL [facility] RDW 14.8 (H) 11.6 - 14.4 % [facility] Platelets 136 (L) 150 - 450 K/CU MM [facility] MPV 9.9 9.4 - 12.4 fL [facility] nRBC 0 0 - 0 /100 WBC [facility] Specimen Blood - Arm, Right Performing Organization Address City/State/Zipcode Phone Number [facility] [address] [place] [address] [phone] CENTER CTA chest (07/22/2017 1:21 PM CDT) Narrative Performed At Addendum Begins [employer] REPORT STATUS:A Addendum: July 22, 2017 at 1620 hours I have reviewed the CT images for this study and I concur with the nonvascular imaging findings as dictated. Signed: Sandip Christianson MD Report Verified Date/Time:07/22/2017 16:16:14 Reading Location: [facility] P048 Angio Body Reading Room Addendum Ends FINAL REPORT CT angiography of the thoracoabdominal aorta and pelvic arteries, 22 Jul 2017 INDICATION: This is a 87 year old male with a diagnosis of aortic stenosis, presents for preprocedure TAVR assessment. This study is performed in an attempt to avoid an invasive procedure. TECHNIQUE: Spiral acquisition before and during intravenous contrast administration using a Hernesto multidetector CT scanner. Images were obtained before and during the dynamic passage of intravenous contrast material.Multi-planar 3-D volume-rendering reconstruction was performed using an independent workstation interactively by the interpreting physician as well as the 3-D specialist for optimal visualization of the thoracoabdominal aorta, the pelvic arteries as well as its proximal branches. Please refer to the contrast sheet scanned in the EPIC system for the amount and route of contrast given. This exam was performed according to our departmental dose-optimisation programme, which includes automated exposure control, adjustment of the mA and/or kV according to patient size and/or use of iterative reconstruction technique. Dose modulation, iterative reconstruction, and/or weight based adjustment of the mA/kV was utilized to reduce the radiation dose to as low as reasonably achievable. FINDINGS: VASCULAR: The central pulmonary artery is prominent. Correlate with appropriate etiology. No evidence of central pulmonary artery embolism is identified. The cardiac chambers demonstrate normal atrioventricular and ventriculoarterial concordance, and systemic and pulmonary venous return. The left ventricle is normal in size. Prominence of the left and the right atrium is identified. Focal calcification is seen in the anterior mitral valve leaflet. There is also mild mitral annular calcification identified in the posterior anterior mitral valve annulus. Coronary artery origins are normal and diffuse coronary artery calcification is identified. Patient is post coronary artery bypass surgery. The internal mammary arteries are [place]. A bypass graft is identified, that is a right graft, that connects both to the left circumflex territory as well as the LAD territory. Vascular stent could be placed in these bypass grafts; correlate with implantation history. Minimum distance of this Y graft to the sternum, between the LAD graft, is at image 139 where it is only 2 to 3 mm behind the sternum. Another bypass graft is seen to the RCA territory. The minimum distance between this graft to the sternum at image 165 is approximately 1.6 cm. Patient has a diagnosis of aortic stenosis. Aortic valve is tricuspid. Aortic valve area is 77 mm where by planimetry. Aortic valve Agatston score is approximately 2064. The location of aortic valvular calcification can be seen in reformatted data set sent to PACS. Regarding the aorta, there is mild calcification seen in the aortic root and in the ascending thoracic aorta. Moderate calcification seen in the transverse arch, as well as in the descending thoracic aorta and moderate circumferential calcification seen in the abdominal aorta. No acute aortic pathology is seen including dissection or contained rupture and no ectasia or aneurysmal dilation is identified. Of note, in the distal infrarenal abdominal aorta, just above the takeoff of the left pelvic arteries, linear calcification is identified at the middle of the lumen. This is located at image 430. It is uncertain if this could represent prior atherosclerotic ulceration. This also extends into the proximal left common iliac artery. Mild calcification is seen scattered along the proximal left subclavian artery. Minimum diameter, image 54 is approximately 8mm. The right subclavian artery also has minimal calcification seen proximally. At image 44, it measures 7 mm. The coeliac axis, SMA, and JUANY are patent. Eccentric calcific atherosclerosis is seen. They are nonobstructive. There are single left and right renal arteries identified with eccentric nonobstructive calcification seen. Single left and right renal veins are seen draining normally into the IVC. The common iliac, external iliac, and the common femoral arteries are remarkable for calcific atherosclerosis. Note calcification identified in the middle of the lumen of the proximal left common iliac artery image 435, that may represent sequelae of prior atherosclerotic ulceration. The common femoral arteries, bilaterally, are unremarkable with calcific atherosclerosis identified. The left and the right SFA are patent. Dimensions that may be helpful for TAVR are as described below: Mild calcification seen in the aortic root and ascending thoracic aorta.The major and minor aortic annulus diameter measures 27.0 and 20.5 mm, respectively. The aortic annulus perimeter measured 76 mm and the cross-sectional area measures 442 mm2. The aortic annulus diameter at the traditional LVOT and coronal LVOT measures 22.8 and 22.6 mm, respectively. For reference purpose, per SIFUENTES S3 brochure, recommendation are as follows: CT area between 273 to 345 mm2 (20 mm valve); 338 to 430 mm2 (23 mm valve); 430 to 546 mm2 (26 mm valve); 540 to 683 mm2 (29 mm valve). For reference purpose, per CoreValve Evolut R brochure, recommendation are as follows: CT perimeter between 56.5-62.8 mm (23 mm valve); 62.8-72.3 mm (26 mm valve); 72.3-81.7 mm (29 mm valve); and 81.7-94.2. mm (34 mm valve). Agatston Score is 2064.Aortic valve area is approximately 77 mm where by planimetry. The sinus of Valsalva height to the takeoff of the coronary artery ostium, RCC (diastole): 14.1 mm The sinus of Valsalva height to the takeoff of the coronary artery ostia, LCC (diastole): 13.9 mm The sinus of Valsalva diameter, RCC (diastole): 34.3 mm The sinus of Valsalva diameter, LCC (diastole): 34.4 mm The sinus of Valsalva diameter, NCC (diastole): 33.1 mm The sinotubular junction measures approximately 28.6 x 30.1 mm. The most inferior bypass graft is approximately 3.4 cm above the aortic annulus. See snapshot for details. The aortic root angulation measures 48.3 degrees. The minimal and perpendicular abdominal aortic diameter, measures 8.3 and 12.3 mm, respectively, at image 49, with focal calcification seen at the distal infrarenal abdominal aorta. There is no evidence of thoracoabdominal aortic aneurysm or stent placement present. The minimum and the perpendicular left common iliac artery measures 3.4 and 6.8 mm, respectively with mildtortuosity , with focal calcification identified in the middle of the lumen of the proximal left common iliac artery, at image 437. The minimum and the perpendicular left external iliac artery measures 7.4 and 7.5 mm, respectively with mildtortuosity and mildcalcific atherosclerosis present. The minimum and the perpendicular left femoral artery measures 6.7 and 8.7 mm, respectively with mildtortuosity and mild calcific atherosclerosis present. The minimum and the perpendicular right common iliac artery measures 7.8 and 8.8 mm, respectively with mildtortuosity and mildcalcific atherosclerosis present. The minimum and the perpendicular right external iliac artery measures 8.0 and 8.1 mm, respectively with mild tortuosity and mildcalcific atherosclerosis present. The minimum and the perpendicular right femoral artery measures 6.1 and 7.3 mm, respectively with mild tortuosity and mild calcific atherosclerosis present. NONVASCULAR: The visualised thyroid gland appears unremarkable. The chest wall and mediastinum is remarkable for prior median sternotomy. The right ventricular free wall is immediately posterior to the sternum. A number of lymph nodes are seen in the mediastinum, the numbers are more than expected, however, they are small in size, therefore considered nonspecific in nature. In the lung windows, no obvious endobronchial lesion is seen. Some debris is identified in the right lateral aspect of the trachea. There are bilateral pleural effusions identified with associated atelectatic changes. Pulmonary vasculature is prominent suggesting a degree of cardiac congestion. Correlate with clinical examination. Some nonspecific groundglass opacities are seen, again related to underlying congestion. Tiny nodule is identified in the left upper lobe at image 77 measure 1-2 mm in diameter of doubtful significance especially due to its small size. Overall, no suspicious pulmonary nodule is identified. In the abdomen, the liver and spleen appears unremarkable. The liver edge is smooth. No abnormal enhancing structures identified. Subcentimeter hypodensities identified in the right hepatic lobe at image 312, too small to characterize. The pancreas appears unremarkable. Patient is post cholecystectomy. The adrenal glands are unremarkable. No acute renal pathology is seen and no hydronephrosis or perirenal fluid collections identified. Some cortical scarring is identified in the lateral aspect of the left kidney. Some nonspecific perinephric stranding is identified. Bowel is not well assessed by CT angiography as enteric contrast is not given. No obvious bowel dilation is identified. Scattered colonic diverticulum is seen with no inflammatory changes present. No free air or free fluid seen in the abdomen and pelvis. The bladder appears unremarkable. The prostate gland is mildly prominent. In general, the a degree of subcutaneous edema/anasarca is identified, S/L identified in the lower abdomen/pelvic level. Inflammatory changes are seen in both groins, left greater than right. In addition, some soft tissue density is seen and may suggest hematoma. This is located at image 568. See arrows in PACS for details. No increase in Hounsfield units is identified and no acute extravasation of contrast is seen arising from the left pelvic vasculature. This may be as a result of recent catheterization. Correlate clinically. In the bony windows, no acute bony pathology is identified. Some degenerative changes are noted. CONCLUSIONS: 1.Patient has a diagnosis of aortic stenosis. Aortic valve is tricuspid. Agatston score is over 2000. Aortic valve area is 77 sq mm. Mild calcification seen in the ascending thoracic aorta. Mild mitral annular calcification is seen bilaterally. Dimensions that may be helpful for TAVR as described above. Note, focal calcification is seen in the lumen in the very distal infrarenal abdominal aorta just above the takeoff of the left common iliac artery and this calcification extends into the proximal left common iliac artery. It might be a sequelae of prior atherosclerotic ulceration. THE RIGHT PELVIC APPROACH COULD BE THE BETTER APPROACH FOR TAVR. 2.Coronary atherosclerosis. Patient is post coronary artery bypass surgery with essentially three bypass grafts present where one is a Y graft supplying the LAD and LCx territories. Biatrial enlargement. 3.Bibasal pleural effusion is identified. The central pulmonary artery is mildly prominent with no evidence of central pulmonary artery embolism. Pulmonary vasculature is prominent indicating cardiac congestion. 4.Other findings as described above. 5.An addendum will be dictated by the Proof Operator Radiologist regarding the nonvascular findings. Signed: Abdoul Galloway MD Report Verified Date/Time:07/22/2017 15:43:41 Reading Location: [facility] P0 Cardiology MRI Procedure Note Interface, External Ris In - 07/22/2017 4:18 PM CDT Addendum Begins REPORT STATUS:A Addendum: July 22, 2017 at 1620 hours I have reviewed the CT images for this study and I concur with the nonvascular imaging findings as dictated. Signed: Sandip Christianson MD Report Verified Date/Time: 07/22/2017 16:16:14 Reading Location: [facility] P048 Angio Body Reading Room Addendum Ends FINAL REPORT CT angiography of the thoracoabdominal aorta and pelvic arteries, 22 Jul 2017 INDICATION: This is a 87 year old male with a diagnosis of aortic stenosis, presents for preprocedure TAVR assessment. This study is performed in an attempt to avoid an invasive procedure. TECHNIQUE: Spiral acquisition before and during intravenous contrast administration using a Hernesto multidetector CT scanner. Images were obtained before and during the dynamic passage of intravenous contrast material. Multi-planar 3-D volume-rendering reconstruction was performed using an independent workstation interactively by the interpreting physician as well as the 3-D specialist for optimal visualization of the thoracoabdominal aorta, the pelvic arteries as well as its proximal branches. Please refer to the contrast sheet scanned in the EPIC system for the amount and route of contrast given. This exam was performed according to our departmental dose-optimisation programme, which includes automated exposure control, adjustment of the mA and/or kV according to patient size and/or use of iterative reconstruction technique. Dose modulation, iterative reconstruction, and/or weight based adjustment of the mA/kV was utilized to reduce the radiation dose to as low as reasonably achievable. FINDINGS: VASCULAR: The central pulmonary artery is prominent. Correlate with appropriate etiology. No evidence of central pulmonary artery embolism is identified. The cardiac chambers demonstrate normal atrioventricular and ventriculoarterial concordance, and systemic and pulmonary venous return. The left ventricle is normal in size. Prominence of the left and the right atrium is identified. Focal calcification is seen in the anterior mitral valve leaflet. There is also mild mitral annular calcification identified in the posterior anterior mitral valve annulus. Coronary artery origins are normal and diffuse coronary artery calcification is identified. Patient is post coronary artery bypass surgery. The internal mammary arteries are [place]. A bypass graft is identified, that is a right graft, that connects both to the left circumflex territory as well as the LAD territory. Vascular stent could be placed in these bypass grafts; correlate with implantation history. Minimum distance of this Y graft to the sternum, between the LAD graft, is at image 139 where it is only 2 to 3 mm behind the sternum. Another bypass graft is seen to the RCA territory. The minimum distance between this graft to the sternum at image 165 is approximately 1.6 cm. Patient has a diagnosis of aortic stenosis. Aortic valve is tricuspid. Aortic valve area is 77 mm where by planimetry. Aortic valve Agatston score is approximately 2064. The location of aortic valvular calcification can be seen in reformatted data set sent to PACS. Regarding the aorta, there is mild calcification seen in the aortic root and in the ascending thoracic aorta. Moderate calcification seen in the transverse arch, as well as in the descending thoracic aorta and moderate circumferential calcification seen in the abdominal aorta. No acute aortic pathology is seen including dissection or contained rupture and no ectasia or aneurysmal dilation is identified. Of note, in the distal infrarenal abdominal aorta, just above the takeoff of the left pelvic arteries, linear calcification is identified at the middle of the lumen. This is located at image 430. It is uncertain if this could represent prior atherosclerotic ulceration. This also extends into the proximal left common iliac artery. Mild calcification is seen scattered along the proximal left subclavian artery. Minimum diameter, image 54 is approximately 8mm. The right subclavian artery also has minimal calcification seen proximally. At image 44, it measures 7 mm. The coeliac axis, SMA, and JUANY are patent. Eccentric calcific atherosclerosis is seen. They are nonobstructive. There are single left and right renal arteries identified with eccentric nonobstructive calcification seen. Single left and right renal veins are seen draining normally into the IVC. The common iliac, external iliac, and the common femoral arteries are remarkable for calcific atherosclerosis. Note calcification identified in the middle of the lumen of the proximal left common iliac artery image 435, that may represent sequelae of prior atherosclerotic ulceration. The common femoral arteries, bilaterally, are unremarkable with calcific atherosclerosis identified. The left and the right SFA are patent. Dimensions that may be helpful for TAVR are as described below: Mild calcification seen in the aortic root and ascending thoracic aorta. The major and minor aortic annulus diameter measures 27.0 and 20.5 mm, respectively. The aortic annulus perimeter measured 76 mm and the cross-sectional area measures 442 mm2. The aortic annulus diameter at the traditional LVOT and coronal LVOT measures 22.8 and 22.6 mm, respectively. For reference purpose, per SIFUENTES S3 brochure, recommendation are as follows: CT area between 273 to 345 mm2 (20 mm valve); 338 to 430 mm2 (23 mm valve); 430 to 546 mm2 (26 mm valve); 540 to 683 mm2 (29 mm valve). For reference purpose, per CoreValve Evolut R brochure, recommendation are as follows: CT perimeter between 56.5-62.8 mm (23 mm valve); 62.8-72.3 mm (26 mm valve); 72.3-81.7 mm (29 mm valve); and 81.7-94.2. mm (34 mm valve). Agatston Score is 2064. Aortic valve area is approximately 77 mm where by planimetry. The sinus of Valsalva height to the takeoff of the coronary artery ostium, RCC (diastole): 14.1 mm The sinus of Valsalva height to the takeoff of the coronary artery ostia, LCC (diastole): 13.9 mm The sinus of Valsalva diameter, RCC (diastole): 34.3 mm The sinus of Valsalva diameter, LCC (diastole): 34.4 mm The sinus of Valsalva diameter, NCC (diastole): 33.1 mm The sinotubular junction measures approximately 28.6 x 30.1 mm. The most inferior bypass graft is approximately 3.4 cm above the aortic annulus. See snapshot for details. The aortic root angulation measures 48.3 degrees. The minimal and perpendicular abdominal aortic diameter, measures 8.3 and 12.3 mm, respectively, at image 49, with focal calcification seen at the distal infrarenal abdominal aorta. There is no evidence of thoracoabdominal aortic aneurysm or stent placement present. The minimum and the perpendicular left common iliac artery measures 3.4 and 6.8 mm, respectively with mild tortuosity , with focal calcification identified in the middle of the lumen of the proximal left common iliac artery, at image 437. The minimum and the perpendicular left external iliac artery measures 7.4 and 7.5 mm, respectively with mild tortuosity and mild calcific atherosclerosis present. The minimum and the perpendicular left femoral artery measures 6.7 and 8.7 mm, respectively with mild tortuosity and mild calcific atherosclerosis present. The minimum and the perpendicular right common iliac artery measures 7.8 and 8.8 mm, respectively with mild tortuosity and mild calcific atherosclerosis present. The minimum and the perpendicular right external iliac artery measures 8.0 and 8.1 mm, respectively with mild tortuosity and mild calcific atherosclerosis present. The minimum and the perpendicular right femoral artery measures 6.1 and 7.3 mm, respectively with mild tortuosity and mild calcific atherosclerosis present. NONVASCULAR: The visualised thyroid gland appears unremarkable. The chest wall and mediastinum is remarkable for prior median sternotomy. The right ventricular free wall is immediately posterior to the sternum. A number of lymph nodes are seen in the mediastinum, the numbers are more than expected, however, they are small in size, therefore considered nonspecific in nature. In the lung windows, no obvious endobronchial lesion is seen. Some debris is identified in the right lateral aspect of the trachea. There are bilateral pleural effusions identified with associated atelectatic changes. Pulmonary vasculature is prominent suggesting a degree of cardiac congestion. Correlate with clinical examination. Some nonspecific groundglass opacities are seen, again related to underlying congestion. Tiny nodule is identified in the left upper lobe at image 77 measure 1-2 mm in diameter of doubtful significance especially due to its small size. Overall, no suspicious pulmonary nodule is identified. In the abdomen, the liver and spleen appears unremarkable. The liver edge is smooth. No abnormal enhancing structures identified. Subcentimeter hypodensities identified in the right hepatic lobe at image 312, too small to characterize. The pancreas appears unremarkable. Patient is post cholecystectomy. The adrenal glands are unremarkable. No acute renal pathology is seen and no hydronephrosis or perirenal fluid collections identified. Some cortical scarring is identified in the lateral aspect of the left kidney. Some nonspecific perinephric stranding is identified. Bowel is not well assessed by CT angiography as enteric contrast is not given. No obvious bowel dilation is identified. Scattered colonic diverticulum is seen with no inflammatory changes present. No free air or free fluid seen in the abdomen and pelvis. The bladder appears unremarkable. The prostate gland is mildly prominent. In general, the a degree of subcutaneous edema/anasarca is identified, S/L identified in the lower abdomen/pelvic level. Inflammatory changes are seen in both groins, left greater than right. In addition, some soft tissue density is seen and may suggest hematoma. This is located at image 568. See arrows in PACS for details. No increase in Hounsfield units is identified and no acute extravasation of contrast is seen arising from the left pelvic vasculature. This may be as a result of recent catheterization. Correlate clinically. In the bony windows, no acute bony pathology is identified. Some degenerative changes are noted. CONCLUSIONS: 1. Patient has a diagnosis of aortic stenosis. Aortic valve is tricuspid. Agatston score is over 2000. Aortic valve area is 77 sq mm. Mild calcification seen in the ascending thoracic aorta. Mild mitral annular calcification is seen bilaterally. Dimensions that may be helpful for TAVR as described above. Note, focal calcification is seen in the lumen in the very distal infrarenal abdominal aorta just above the takeoff of the left common iliac artery and this calcification extends into the proximal left common iliac artery. It might be a sequelae of prior atherosclerotic ulceration. THE RIGHT PELVIC APPROACH COULD BE THE BETTER APPROACH FOR TAVR. 2. Coronary atherosclerosis. Patient is post coronary artery bypass surgery with essentially three bypass grafts present where one is a Y graft supplying the LAD and LCx territories. Biatrial enlargement. 3. Bibasal pleural effusion is identified. The central pulmonary artery is mildly prominent with no evidence of central pulmonary artery embolism. Pulmonary vasculature is prominent indicating cardiac congestion. 4. Other findings as described above. 5. An addendum will be dictated by the Proof Operator Radiologist regarding the nonvascular findings. Signed: Abdoul Galloway MD Report Verified Date/Time: 07/22/2017 15:43:41 Reading Location: [facility] P047 Cardiology MRI Performing Organization Address City/State/Zipcode Phone Number [employer] CTA abdomen & pelvis (07/22/2017 1:21 PM CDT) Narrative Performed At Addendum Begins [employer] REPORT STATUS:A Addendum: July 22, 2017 at 1620 hours I have reviewed the CT images for this study and I concur with the nonvascular imaging findings as dictated. Signed: Sandip Christianson MD Report Verified Date/Time:07/22/2017 16:16:14 Reading Location: [facility] B1 P048 Angio Body Reading Room Addendum Ends FINAL REPORT CT angiography of the thoracoabdominal aorta and pelvic arteries, 22 Jul 2017 INDICATION: This is a 87 year old male with a diagnosis of aortic stenosis, presents for preprocedure TAVR assessment. This study is performed in an attempt to avoid an invasive procedure. TECHNIQUE: Spiral acquisition before and during intravenous contrast administration using a Hernesto multidetector CT scanner. Images were obtained before and during the dynamic passage of intravenous contrast material.Multi-planar 3-D volume-rendering reconstruction was performed using an independent workstation interactively by the interpreting physician as well as the 3-D specialist for optimal visualization of the thoracoabdominal aorta, the pelvic arteries as well as its proximal branches. Please refer to the contrast sheet scanned in the EPIC system for the amount and route of contrast given. This exam was performed according to our departmental dose-optimisation programme, which includes automated exposure control, adjustment of the mA and/or kV according to patient size and/or use of iterative reconstruction technique. Dose modulation, iterative reconstruction, and/or weight based adjustment of the mA/kV was utilized to reduce the radiation dose to as low as reasonably achievable. FINDINGS: VASCULAR: The central pulmonary artery is prominent. Correlate with appropriate etiology. No evidence of central pulmonary artery embolism is identified. The cardiac chambers demonstrate normal atrioventricular and ventriculoarterial concordance, and systemic and pulmonary venous return. The left ventricle is normal in size. Prominence of the left and the right atrium is identified. Focal calcification is seen in the anterior mitral valve leaflet. There is also mild mitral annular calcification identified in the posterior anterior mitral valve annulus. Coronary artery origins are normal and diffuse coronary artery calcification is identified. Patient is post coronary artery bypass surgery. The internal mammary arteries are [place]. A bypass graft is identified, that is a right graft, that connects both to the left circumflex territory as well as the LAD territory. Vascular stent could be placed in these bypass grafts; correlate with implantation history. Minimum distance of this Y graft to the sternum, between the LAD graft, is at image 139 where it is only 2 to 3 mm behind the sternum. Another bypass graft is seen to the RCA territory. The minimum distance between this graft to the sternum at image 165 is approximately 1.6 cm. Patient has a diagnosis of aortic stenosis. Aortic valve is tricuspid. Aortic valve area is 77 mm where by planimetry. Aortic valve Agatston score is approximately 2064. The location of aortic valvular calcification can be seen in reformatted data set sent to PACS. Regarding the aorta, there is mild calcification seen in the aortic root and in the ascending thoracic aorta. Moderate calcification seen in the transverse arch, as well as in the descending thoracic aorta and moderate circumferential calcification seen in the abdominal aorta. No acute aortic pathology is seen including dissection or contained rupture and no ectasia or aneurysmal dilation is identified. Of note, in the distal infrarenal abdominal aorta, just above the takeoff of the left pelvic arteries, linear calcification is identified at the middle of the lumen. This is located at image 430. It is uncertain if this could represent prior atherosclerotic ulceration. This also extends into the proximal left common iliac artery. Mild calcification is seen scattered along the proximal left subclavian artery. Minimum diameter, image 54 is approximately 8mm. The right subclavian artery also has minimal calcification seen proximally. At image 44, it measures 7 mm. The coeliac axis, SMA, and UJANY are patent. Eccentric calcific atherosclerosis is seen. They are nonobstructive. There are single left and right renal arteries identified with eccentric nonobstructive calcification seen. Single left and right renal veins are seen draining normally into the IVC. The common iliac, external iliac, and the common femoral arteries are remarkable for calcific atherosclerosis. Note calcification identified in the middle of the lumen of the proximal left common iliac artery image 435, that may represent sequelae of prior atherosclerotic ulceration. The common femoral arteries, bilaterally, are unremarkable with calcific atherosclerosis identified. The left and the right SFA are patent. Dimensions that may be helpful for TAVR are as described below: Mild calcification seen in the aortic root and ascending thoracic aorta.The major and minor aortic annulus diameter measures 27.0 and 20.5 mm, respectively. The aortic annulus perimeter measured 76 mm and the cross-sectional area measures 442 mm2. The aortic annulus diameter at the traditional LVOT and coronal LVOT measures 22.8 and 22.6 mm, respectively. For reference purpose, per SIFUENTES S3 brochure, recommendation are as follows: CT area between 273 to 345 mm2 (20 mm valve); 338 to 430 mm2 (23 mm valve); 430 to 546 mm2 (26 mm valve); 540 to 683 mm2 (29 mm valve). For reference purpose, per [employer] Ev[employer] R ellen, recommendation are as follows: CT perimeter between 56.5-62.8 mm (23 mm valve); 62.8-72.3 mm (26 mm valve); 72.3-81.7 mm (29 mm valve); and 81.7-94.2. mm (34 mm valve). Agatston Score is 2064.Aortic valve area is approximately 77 mm where by planimetry. The sinus of Valsalva height to the takeoff of the coronary artery ostium, RCC (diastole): 14.1 mm The sinus of Valsalva height to the takeoff of the coronary artery ostia, LCC (diastole): 13.9 mm The sinus of Valsalva diameter, RCC (diastole): 34.3 mm The sinus of Valsalva diameter, LCC (diastole): 34.4 mm The sinus of Valsalva diameter, NCC (diastole): 33.1 mm The sinotubular junction measures approximately 28.6 x 30.1 mm. The most inferior bypass graft is approximately 3.4 cm above the aortic annulus. See snapshot for details. The aortic root angulation measures 48.3 degrees. The minimal and perpendicular abdominal aortic diameter, measures 8.3 and 12.3 mm, respectively, at image 49, with focal calcification seen at the distal infrarenal abdominal aorta. There is no evidence of thoracoabdominal aortic aneurysm or stent placement present. The minimum and the perpendicular left common iliac artery measures 3.4 and 6.8 mm, respectively with mildtortuosity , with focal calcification identified in the middle of the lumen of the proximal left common iliac artery, at image 437. The minimum and the perpendicular left external iliac artery measures 7.4 and 7.5 mm, respectively with mildtortuosity and mildcalcific atherosclerosis present. The minimum and the perpendicular left femoral artery measures 6.7 and 8.7 mm, respectively with mildtortuosity and mild calcific atherosclerosis present. The minimum and the perpendicular right common iliac artery measures 7.8 and 8.8 mm, respectively with mildtortuosity and mildcalcific atherosclerosis present. The minimum and the perpendicular right external iliac artery measures 8.0 and 8.1 mm, respectively with mild tortuosity and mildcalcific atherosclerosis present. The minimum and the perpendicular right femoral artery measures 6.1 and 7.3 mm, respectively with mild tortuosity and mild calcific atherosclerosis present. NONVASCULAR: The visualised thyroid gland appears unremarkable. The chest wall and mediastinum is remarkable for prior median sternotomy. The right ventricular free wall is immediately posterior to the sternum. A number of lymph nodes are seen in the mediastinum, the numbers are more than expected, however, they are small in size, therefore considered nonspecific in nature. In the lung windows, no obvious endobronchial lesion is seen. Some debris is identified in the right lateral aspect of the trachea. There are bilateral pleural effusions identified with associated atelectatic changes. Pulmonary vasculature is prominent suggesting a degree of cardiac congestion. Correlate with clinical examination. Some nonspecific groundglass opacities are seen, again related to underlying congestion. Tiny nodule is identified in the left upper lobe at image 77 measure 1-2 mm in diameter of doubtful significance especially due to its small size. Overall, no suspicious pulmonary nodule is identified. In the abdomen, the liver and spleen appears unremarkable. The liver edge is smooth. No abnormal enhancing structures identified. Subcentimeter hypodensities identified in the right hepatic lobe at image 312, too small to characterize. The pancreas appears unremarkable. Patient is post cholecystectomy. The adrenal glands are unremarkable. No acute renal pathology is seen and no hydronephrosis or perirenal fluid collections identified. Some cortical scarring is identified in the lateral aspect of the left kidney. Some nonspecific perinephric stranding is identified. Bowel is not well assessed by CT angiography as enteric contrast is not given. No obvious bowel dilation is identified. Scattered colonic diverticulum is seen with no inflammatory changes present. No free air or free fluid seen in the abdomen and pelvis. The bladder appears unremarkable. The prostate gland is mildly prominent. In general, the a degree of subcutaneous edema/anasarca is identified, S/L identified in the lower abdomen/pelvic level. Inflammatory changes are seen in both groins, left greater than right. In addition, some soft tissue density is seen and may suggest hematoma. This is located at image 568. See arrows in PACS for details. No increase in Hounsfield units is identified and no acute extravasation of contrast is seen arising from the left pelvic vasculature. This may be as a result of recent catheterization. Correlate clinically. In the bony windows, no acute bony pathology is identified. Some degenerative changes are noted. CONCLUSIONS: 1.Patient has a diagnosis of aortic stenosis. Aortic valve is tricuspid. Agatston score is over 2000. Aortic valve area is 77 sq mm. Mild calcification seen in the ascending thoracic aorta. Mild mitral annular calcification is seen bilaterally. Dimensions that may be helpful for TAVR as described above. Note, focal calcification is seen in the lumen in the very distal infrarenal abdominal aorta just above the takeoff of the left common iliac artery and this calcification extends into the proximal left common iliac artery. It might be a sequelae of prior atherosclerotic ulceration. THE RIGHT PELVIC APPROACH COULD BE THE BETTER APPROACH FOR TAVR. 2.Coronary atherosclerosis. Patient is post coronary artery bypass surgery with essentially three bypass grafts present where one is a Y graft supplying the LAD and LCx territories. Biatrial enlargement. 3.Bibasal pleural effusion is identified. The central pulmonary artery is mildly prominent with no evidence of central pulmonary artery embolism. Pulmonary vasculature is prominent indicating cardiac congestion. 4.Other findings as described above. 5.An addendum will be dictated by the Proof Operator Radiologist regarding the nonvascular findings. Signed: Abdoul Galloway MD Report Verified Date/Time:07/22/2017 15:43:41 Reading Location: [place] [address] Cardiology MRI Procedure Note Interface, External Ris In - 07/22/2017 4:18 PM CDT Addendum Begins REPORT STATUS:A Addendum: July 22, 2017 at 1620 hours I have reviewed the CT images for this study and I concur with the nonvascular imaging findings as dictated. Signed: Sandip Christianson MD Report Verified Date/Time: 07/22/2017 16:16:14 Reading Location: [facility] P048 Angio Body Reading Room Addendum Ends FINAL REPORT CT angiography of the thoracoabdominal aorta and pelvic arteries, 22 Jul 2017 INDICATION: This is a 87 year old male with a diagnosis of aortic stenosis, presents for preprocedure TAVR assessment. This study is performed in an attempt to avoid an invasive procedure. TECHNIQUE: Spiral acquisition before and during intravenous contrast administration using a Hernesto multidetector CT scanner. Images were obtained before and during the dynamic passage of intravenous contrast material. Multi-planar 3-D volume-rendering reconstruction was performed using an independent workstation interactively by the interpreting physician as well as the 3-D specialist for optimal visualization of the thoracoabdominal aorta, the pelvic arteries as well as its proximal branches. Please refer to the contrast sheet scanned in the EPIC system for the amount and route of contrast given. This exam was performed according to our departmental dose-optimisation programme, which includes automated exposure control, adjustment of the mA and/or kV according to patient size and/or use of iterative reconstruction technique. Dose modulation, iterative reconstruction, and/or weight based adjustment of the mA/kV was utilized to reduce the radiation dose to as low as reasonably achievable. FINDINGS: VASCULAR: The central pulmonary artery is prominent. Correlate with appropriate etiology. No evidence of central pulmonary artery embolism is identified. The cardiac chambers demonstrate normal atrioventricular and ventriculoarterial concordance, and systemic and pulmonary venous return. The left ventricle is normal in size. Prominence of the left and the right atrium is identified. Focal calcification is seen in the anterior mitral valve leaflet. There is also mild mitral annular calcification identified in the posterior anterior mitral valve annulus. Coronary artery origins are normal and diffuse coronary artery calcification is identified. Patient is post coronary artery bypass surgery. The internal mammary arteries are [place]. A bypass graft is identified, that is a right graft, that connects both to the left circumflex territory as well as the LAD territory. Vascular stent could be placed in these bypass grafts; correlate with implantation history. Minimum distance of this Y graft to the sternum, between the LAD graft, is at image 139 where it is only 2 to 3 mm behind the sternum. Another bypass graft is seen to the RCA territory. The minimum distance between this graft to the sternum at image 165 is approximately 1.6 cm. Patient has a diagnosis of aortic stenosis. Aortic valve is tricuspid. Aortic valve area is 77 mm where by planimetry. Aortic valve Agatston score is approximately 2064. The location of aortic valvular calcification can be seen in reformatted data set sent to PACS. Regarding the aorta, there is mild calcification seen in the aortic root and in the ascending thoracic aorta. Moderate calcification seen in the transverse arch, as well as in the descending thoracic aorta and moderate circumferential calcification seen in the abdominal aorta. No acute aortic pathology is seen including dissection or contained rupture and no ectasia or aneurysmal dilation is identified. Of note, in the distal infrarenal abdominal aorta, just above the takeoff of the left pelvic arteries, linear calcification is identified at the middle of the lumen. This is located at image 430. It is uncertain if this could represent prior atherosclerotic ulceration. This also extends into the proximal left common iliac artery. Mild calcification is seen scattered along the proximal left subclavian artery. Minimum diameter, image 54 is approximately 8mm. The right subclavian artery also has minimal calcification seen proximally. At image 44, it measures 7 mm. The coeliac axis, SMA, and JUANY are patent. Eccentric calcific atherosclerosis is seen. They are nonobstructive. There are single left and right renal arteries identified with eccentric nonobstructive calcification seen. Single left and right renal veins are seen draining normally into the IVC. The common iliac, external iliac, and the common femoral arteries are remarkable for calcific atherosclerosis. Note calcification identified in the middle of the lumen of the proximal left common iliac artery image 435, that may represent sequelae of prior atherosclerotic ulceration. The common femoral arteries, bilaterally, are unremarkable with calcific atherosclerosis identified. The left and the right SFA are patent. Dimensions that may be helpful for TAVR are as described below: Mild calcification seen in the aortic root and ascending thoracic aorta. The major and minor aortic annulus diameter measures 27.0 and 20.5 mm, respectively. The aortic annulus perimeter measured 76 mm and the cross-sectional area measures 442 mm2. The aortic annulus diameter at the traditional LVOT and coronal LVOT measures 22.8 and 22.6 mm, respectively. For reference purpose, per [employer] S3 brochure, recommendation are as follows: CT area between 273 to 345 mm2 (20 mm valve); 338 to 430 mm2 (23 mm valve); 430 to 546 mm2 (26 mm valve); 540 to 683 mm2 (29 mm valve). For reference purpose, per [employer] Evolut R brochure, recommendation are as follows: CT perimeter between 56.5-62.8 mm (23 mm valve); 62.8-72.3 mm (26 mm valve); 72.3-81.7 mm (29 mm valve); and 81.7-94.2. mm (34 mm valve). Agatston Score is 2064. Aortic valve area is approximately 77 mm where by planimetry. The sinus of Valsalva height to the takeoff of the coronary artery ostium, RCC (diastole): 14.1 mm The sinus of Valsalva height to the takeoff of the coronary artery ostia, LCC (diastole): 13.9 mm The sinus of Valsalva diameter, RCC (diastole): 34.3 mm The sinus of Valsalva diameter, LCC (diastole): 34.4 mm The sinus of Valsalva diameter, NCC (diastole): 33.1 mm The sinotubular junction measures approximately 28.6 x 30.1 mm. The most inferior bypass graft is approximately 3.4 cm above the aortic annulus. See snapshot for details. The aortic root angulation measures 48.3 degrees. The minimal and perpendicular abdominal aortic diameter, measures 8.3 and 12.3 mm, respectively, at image 49, with focal calcification seen at the distal infrarenal abdominal aorta. There is no evidence of thoracoabdominal aortic aneurysm or stent placement present. The minimum and the perpendicular left common iliac artery measures 3.4 and 6.8 mm, respectively with mild tortuosity , with focal calcification identified in the middle of the lumen of the proximal left common iliac artery, at image 437. The minimum and the perpendicular left external iliac artery measures 7.4 and 7.5 mm, respectively with mild tortuosity and mild calcific atherosclerosis present. The minimum and the perpendicular left femoral artery measures 6.7 and 8.7 mm, respectively with mild tortuosity and mild calcific atherosclerosis present. The minimum and the perpendicular right common iliac artery measures 7.8 and 8.8 mm, respectively with mild tortuosity and mild calcific atherosclerosis present. The minimum and the perpendicular right external iliac artery measures 8.0 and 8.1 mm, respectively with mild tortuosity and mild calcific atherosclerosis present. The minimum and the perpendicular right femoral artery measures 6.1 and 7.3 mm, respectively with mild tortuosity and mild calcific atherosclerosis present. NONVASCULAR: The visualised thyroid gland appears unremarkable. The chest wall and mediastinum is remarkable for prior median sternotomy. The right ventricular free wall is immediately posterior to the sternum. A number of lymph nodes are seen in the mediastinum, the numbers are more than expected, however, they are small in size, therefore considered nonspecific in nature. In the lung windows, no obvious endobronchial lesion is seen. Some debris is identified in the right lateral aspect of the trachea. There are bilateral pleural effusions identified with associated atelectatic changes. Pulmonary vasculature is prominent suggesting a degree of cardiac congestion. Correlate with clinical examination. Some nonspecific groundglass opacities are seen, again related to underlying congestion. Tiny nodule is identified in the left upper lobe at image 77 measure 1-2 mm in diameter of doubtful significance especially due to its small size. Overall, no suspicious pulmonary nodule is identified. In the abdomen, the liver and spleen appears unremarkable. The liver edge is smooth. No abnormal enhancing structures identified. Subcentimeter hypodensities identified in the right hepatic lobe at image 312, too small to characterize. The pancreas appears unremarkable. Patient is post cholecystectomy. The adrenal glands are unremarkable. No acute renal pathology is seen and no hydronephrosis or perirenal fluid collections identified. Some cortical scarring is identified in the lateral aspect of the left kidney. Some nonspecific perinephric stranding is identified. Bowel is not well assessed by CT angiography as enteric contrast is not given. No obvious bowel dilation is identified. Scattered colonic diverticulum is seen with no inflammatory changes present. No free air or free fluid seen in the abdomen and pelvis. The bladder appears unremarkable. The prostate gland is mildly prominent. In general, the a degree of subcutaneous edema/anasarca is identified, S/L identified in the lower abdomen/pelvic level. Inflammatory changes are seen in both groins, left greater than right. In addition, some soft tissue density is seen and may suggest hematoma. This is located at image 568. See arrows in PACS for details. No increase in Hounsfield units is identified and no acute extravasation of contrast is seen arising from the left pelvic vasculature. This may be as a result of recent catheterization. Correlate clinically. In the bony windows, no acute bony pathology is identified. Some degenerative changes are noted. CONCLUSIONS: 1. Patient has a diagnosis of aortic stenosis. Aortic valve is tricuspid. Agatston score is over 2000. Aortic valve area is 77 sq mm. Mild calcification seen in the ascending thoracic aorta. Mild mitral annular calcification is seen bilaterally. Dimensions that may be helpful for TAVR as described above. Note, focal calcification is seen in the lumen in the very distal infrarenal abdominal aorta just above the takeoff of the left common iliac artery and this calcification extends into the proximal left common iliac artery. It might be a sequelae of prior atherosclerotic ulceration. THE RIGHT PELVIC APPROACH COULD BE THE BETTER APPROACH FOR TAVR. 2. Coronary atherosclerosis. Patient is post coronary artery bypass surgery with essentially three bypass grafts present where one is a Y graft supplying the LAD and LCx territories. Biatrial enlargement. 3. Bibasal pleural effusion is identified. The central pulmonary artery is mildly prominent with no evidence of central pulmonary artery embolism. Pulmonary vasculature is prominent indicating cardiac congestion. 4. Other findings as described above. 5. An addendum will be dictated by the Proof Operator Radiologist regarding the nonvascular findings. Signed: Abdoul Galloway MD Report Verified Date/Time: 07/22/2017 15:43:41 Reading Location: [place] [address] Cardiology MRI Performing Organization Address [facility] Phone Number [employer] POC-Glucose meter (07/21/2017 8:46 PM CDT) POC-Glucose Meter 133 (H)Comment: TESTED AT 70 - 110 mg/dL [address] [address] Specimen Blood Performing Organization Address [facility] [place] Phone [place] [address] [address] [phone] CENTER Transfuse Leuko-Red RBC (07/21/2017 2:35 PM CDT)Only the most recent of5 resultswithin the time period is included.Phosphorus (07/20/2017 5:18 AM CDT) Phosphorus 2.3 2.3 - 4.7 mg/dL [facility] Specimen Blood Performing Organization Address [facility] [place] Phone Number [address] [address] [phone] CENTER Magnesium (07/20/2017 5:18 AM CDT)Only the most recent of5 resultswithin the time period is included. Magnesium 2.2 1.6 - 2.6 mg/dL [facility] Specimen Blood Performing Organization Address [facility] [place] Phone Number [address] [address] [place] CARDIAC CATH REPORT - SCAN (07/17/2017 5:21 PM CDT) Narrative Performed At ECHOCARDIOGRAM REPORT - SCAN (07/17/2017 11:52 AM CDT) Narrative Performed At Uric acid (07/17/2017 4:20 AM CDT) Uric Acid 9.8 (H) 2.6 - 7.2 mg/dL [facility] Specimen Blood - Central Venous Line Performing Organization Address [facility] [place] Phone Number [address] [address] [place] Sodium, random urine (07/16/2017 6:44 PM CDT) Sodium Urine <20 meq/L [facility] Specimen Urine - Urine, [place] Narrative Performed At [facility] Reference Range: No Normals Performing Organization Address [facility] [place] Phone Number [address] [address] [phone] [place] Protein, random urine (07/16/2017 6:44 PM CDT) Protein, Urine 23 (H) 0 - 14 mg/dL [facility] Specimen Urine - Urine, [place] Performing Organization Address [facility] [place] Phone Number [address] [address] [place] Osmolality, urine (07/16/2017 6:44 PM CDT) Osmolality, Ur 346 40 - 1,400 mOsm/kg [facility] Specimen Urine - Urine, [place] Performing Organization Address [facility] [place] Phone Number [address] [address] C[place] Creatinine, random urine (07/16/2017 6:44 PM CDT) Creatinine, Ur 131.4 mg/dL [facility] Specimen Urine - Urine, [place] Narrative Performed At [facility] Reference Range: No Normals Performing Organization Address City/State/Zipcode Phone Number [facility] [address] [place] [address] [phone] CENTER 2D Echo W/Doppler(CW/PW/Color) (07/16/2017 4:17 PM CDT) Ejection Fraction [facility] CPA Narrative Performed At Transthoracic Echocardiography Report (TTE) [facility] Demographics Patient NameKAYLEE ARRIAGA Date of Study07/16/2017 REHANA Gender Male Visit [id number] Race Unknown [id number] Number Date of 1930 ReferringSartmasood Solano Physician Age 87 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 Clinical History CAD HTN MT CABG STENT L CATH AND ANGIO 07/15/17 Height: 67 inches Weight: 77.11 kg (170 lbs) BSA: 1.89 m^2 BMI: 26.63 kg/m^2 HR: 86 bpm BP: 95/41 mmHg Summary 1. Normal LV size and function. LVEF is > 60% 2. Diastology: Unable to comment 3. Normal RV size. Depressed RV function 4. Paradoxical low flow, low gradient Moderate to severe aortic stenosis. MONO is 0.92 cm 2. Pk / Mn: 35 / 20 mm Hg. DI=0.31 (SVi 34 cc / 1 mt BSA) 5. Mild TR. Estimated PASP is 45-50 mm Hg. 6. No pericardial effusion noted. Previous Study No prior exam available for comparison. Signature Findings Rhythm/BPAtrial fibrillation with controlled ventricular re sponse. Left Ventricle Left ventricular endocardium is adequately vi sualized without IV contrast. LV chamber size is no rmal (male - LVED vol 34-74ml/m2). There is mild co ncentric LV hypertrophy. All of the segments ap pear to contract normally. Estimated ejection fr action by Gale's biplane method is normal (> 60%).The base of the inferior wall and in fero-septum appear hypokinetic. Diastolic dy sfunction is indeterminate owing to arrhythmia. Left AtriumLA is well visualized. LA size is severely enlarged (>48 ml/m2) . Right VentricleNormal RV size. Depressed RV function. Right Atrium RA size is moderately dilated. Atrial SeptumThe intraatrial septum is well visualized. Normal in traatrial septum by available views. Aortic Valve Aortic annulus and valve leaflets appears ca lcified. Mo derate to severe aortic stenosis. MONO estimated at 0.92 cm2 by the continuity equation. Peak ve locity of 2.97 m/s. Mean gradient of 20.69 mmHg. Di mensionless index is 0.31. No aortic regurgitation. Mitral Valve There is calcification of the mitral annulus. Mild mi tral stenosis. Mean gradient 5.41. Trace mitral re gurgitation. Tricuspid ValveTricuspid structure is normal. Mild tricuspid re gurgitation. Pu lmonary artery systolic pressure is estimated at 45 -50 mmHg. Pulmonic Valve Normal pulmonic valve structure and function. AortaAortic root size (sinus of Valsalva diameter) is no rmal. Visualized aortic arch is normal. PericardiumNo pericardial effusion is visualized. IVC/SVC/PA/PV/PleuralThe inferior vena cava is adequately visualized. Th e IVC size is mildly increased. Estimated right at rial pressure is 10-15 mmHg. Chambers/Structures Left Atrium LA Volume: 108.49 mlLA Area: 32.52 cm^2 LA Vol. Index: 57 ml/m^2 Left Ventricle LVIDd: 4.14 cm LVIDs: 1.78 cm LV Septum Diastolic: 1.83 cm LV Septum Systolic: 2.43 cm LV FS: 57 % LV PW Diastolic: 1.51 cm LV PW Systolic: 2.33 cm LVEDVI: 47 ml/m^2 LVEDV Gale's:89.15 mlLVESVI: 13 ml/m^2 LVESV Gale's:23.63 ml LVEF Gale's: 73.5 % LVOT Diameter: 1.95 cm Doppler/Quantitative Measurements Mitral Valve Mean Velocity: 1 m/s Mean Gradient: 5.41 mmHg Area (continuity): 1.88 cm^2 MV VTI: 30.51 cm MV Dean. Peak: 1.93 m/s Aortic Valve Peak Velocity: 2.97 m/sMean Velocity: 2.13 m/s Peak Gradient: 35.25 mmHgMean Gradient: 20.69 mmHg AV Area (continuity): 0.92 cm^2 AV VTI: 62.27 cm AV DVI: 0.31 LVOT Peak Velocity: 0.97 m/s Peak Gradient: 3.77 mmHg Mean Velocity: 0.76 m/s Mean Gradient: 2.56 mmHg LVOT Diameter: 1.95 cmLVOT VTI: 19.21 cm LVOT Area: 2.99 cm^2LVOT SV:57.34 ml LVOT CO: 4.93 l/min LVOT CI: 2.61 l/min/m^2 Tricuspid Valve TR Velocity: 3.05 m/s TR Gradient: 37.16 mmHg Procedure Note Interface, External Ris In - 07/17/2017 11:21 AM CDT Transthoracic Echocardiography Report (TTE) Demographics Patient Name KAYLEE ARRIAGA Date of Study 07/16/2017 REHANA Gender Male Visit Number [id number] Race Unknown Room Number 6214 Number Date of 1930 Referring Margarita Solano Physician Age 87 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 Clinical History CAD HTN MT CABG STENT L CATH AND ANGIO 07/15/17 Height: 67 inches Weight: 77.11 kg (170 lbs) BSA: 1.89 m^2 BMI: 26.63 kg/m^2 HR: 86 bpm BP: 95/41 mmHg Summary 1. Normal LV size and function. LVEF is > 60% 2. Diastology: Unable to comment 3. Normal RV size. Depressed RV function 4. Paradoxical low flow, low gradient Moderate to severe aortic stenosis. MONO is 0.92 cm 2. Pk / Mn: 35 / 20 mm Hg. DI=0.31 (SVi 34 cc / 1 mt BSA) 5. Mild TR. Estimated PASP is 45-50 mm Hg. 6. No pericardial effusion noted. Previous Study No prior exam available for comparison. Signature Findings Rhythm/BP Atrial fibrillation with controlled ventricular response. Left Ventricle Left ventricular endocardium is adequately visualized without IV contrast. LV chamber size is normal (male - LVED vol 34-74ml/m2). There is mild concentric LV hypertrophy. All of the segments appear to contract normally. Estimated ejection fraction by Gale's biplane method is normal (>60%).The base of the inferior wall and infero-septum appear hypokinetic. Diastolic dysfunction is indeterminate owing to arrhythmia. Left Atrium LA is well visualized. LA size is severely enlarged (>48 ml/m2) . Right Ventricle Normal RV size. Depressed RV function. Right Atrium RA size is moderately dilated. Atrial Septum The intraatrial septum is well visualized. Normal intraatrial septum by available views. Aortic Valve Aortic annulus and valve leaflets appears calcified. Moderate to severe aortic stenosis. MONO estimated at 0.92 cm2 by the continuity equation. Peak velocity of 2.97 m/s. Mean gradient of 20.69 mmHg. Dimensionless index is 0.31. No aortic regurgitation. Mitral Valve There is calcification of the mitral annulus. Mild mitral stenosis. Mean gradient 5.41. Trace mitral regurgitation. Tricuspid Valve Tricuspid structure is normal. Mild tricuspid regurgitation. Pulmonary artery systolic pressure is estimated at 45-50 mmHg. Pulmonic Valve Normal pulmonic valve structure and function. Aorta Aortic root size (sinus of Valsalva diameter) is normal. Visualized aortic arch is normal. Pericardium No pericardial effusion is visualized. IVC/SVC/PA/PV/Pleural The inferior vena cava is adequately visualized. The IVC size is mildly increased. Estimated right atrial pressure is 10-15 mmHg. Chambers/Structures Left Atrium LA Volume: 108.49 ml LA Area: 32.52 cm^2 LA Vol. Index: 57 ml/m^2 Left Ventricle LVIDd: 4.14 cm LVIDs: 1.78 cm LV Septum Diastolic: 1.83 cm LV Septum Systolic: 2.43 cm LV FS: 57 % LV PW Diastolic: 1.51 cm LV PW Systolic: 2.33 cm LVEDVI: 47 ml/m^2 LVEDV Gale's:89.15 ml LVESVI: 13 ml/m^2 LVESV Gale's:23.63 ml LVEF Gale's: 73.5 % LVOT Diameter: 1.95 cm Doppler/Quantitative Measurements Mitral Valve Mean Velocity: 1 m/s Mean Gradient: 5.41 mmHg Area (continuity): 1.88 cm^2 MV VTI: 30.51 cm MV Dean. Peak: 1.93 m/s Aortic Valve Peak Velocity: 2.97 m/s Mean Velocity: 2.13 m/s Peak Gradient: 35.25 mmHg Mean Gradient: 20.69 mmHg AV Area (continuity): 0.92 cm^2 AV VTI: 62.27 cm AV DVI: 0.31 LVOT Peak Velocity: 0.97 m/s Peak Gradient: 3.77 mmHg Mean Velocity: 0.76 m/s Mean Gradient: 2.56 mmHg LVOT Diameter: 1.95 cm LVOT VTI: 19.21 cm LVOT Area: 2.99 cm^2 LVOT SV:57.34 ml LVOT CO: 4.93 l/min LVOT CI: 2.61 l/min/m^2 Tricuspid Valve TR Velocity: 3.05 m/s TR Gradient: 37.16 mmHg Performing Organization Address City/State/Zipcode Phone Number [facility] Lactic acid, venous, whole blood (07/16/2017 1:44 AM CDT)Only the most recent of2 resultswithin the time period is included. Lactate, Venous 2.1Comment: Specimen 0.5 - 2.2 mmol/L [facility] slightly hemolyzed [facility] Specimen Blood - Line, Venous Narrative Performed At [facility] Effective 07/04/2015: Units/Reference Range Change New: 0.5-2.2 mmol/LPrevious: 5-20 mg/dL Performing Organization Address City/[facility] Phone Number [address] [address] CENTER Hemoglobin and hematocrit (07/15/2017 7:41 PM CDT) Hemoglobin 9.4 (L) 13.7 - 17.5 GM/DL [facility] Hematocrit 29.0 (L) 40.1 - 51.0 % [facility] Specimen Blood - Line, Venous Performing Organization Address City/[facility] Phone Number [address] [address] CENTER after 02/28/2017 Insurance Payer Benefit Plan / Subscriber ID Type Phone Address Group [employer]UE [employer]OSS/[place]UE [place] IN[place]MNITY [place] xxxxxxxxxxxx [facility] [phone] [address] [facility] [place] [address] MEDICARE MEDICARE PART B xxxxxxxxxx Medicare Rehana baeza (Home) [place] [id number] Advance Directives For more information, please contact:[address] [phone] Code Status Date Activated Date Inactivated Comments Full Code 09/10/2017 9:28 PM 09/12/2017 4:32 PM This code status was determined by: Patient Full Code 09/10/2017 7:57 AM 09/10/2017 9:28 PM This code status was determined by: Patient Full Code 07/24/2017 5:11 PM 08/07/2017 1:14 PM This code status was determined by: Patient
--- OUTSIDE RECORDS SUMMARY | 2018-03-01 15:27 | XMS REPORT ---
:1930 [facility] Address [address] [place] [address] [place] [address] Care Team Providers Name Role Phone MACARIO CHARLES Unavailable Unavailable JAIRON BALLARD Unavailable Unavailable Problems This patient has no known problems. Allergies, Adverse Reactions, Alerts This patient has no known allergies or adverse reactions. Medications This patient has no known medications. Results Test Description Test Time Test Comments Text Results Atomic Results Result Comments BASIC METABOLIC PANEL 2017-09-12 06:30:00 Test Item Value Reference Range Comments SODIUM (BEAKER) (test 130 meq/L 136-145 exag=451) POTASSIUM (BEAKER) (test 4.2 meq/L 3.5-5.1 ctty=092) CHLORIDE (BEAKER) (test 99 meq/L 98-107 ulfl=940) CO2 (BEAKER) (test qmrv=814) 23 meq/L 22-29 BLOOD UREA NITROGEN (BEAKER) 25 mg/dL 7-21 (test oxom=638) CREATININE (BEAKER) (test 1.64 mg/dL 0.57-1.25 vadf=191) GLUCOSE RANDOM (BEAKER) 154 mg/dL 70-105 (test cpxc=125) CALCIUM (BEAKER) (test 8.7 mg/dL 8.4-10.2 stin=934) EGFR (BEAKER) (test 40 mL/min/1.73 sq m ESTIMATED GFR IS NOT popm=7203) ACCURATE CREATININE CLEARANCE IN PREDICTING GLOMERULAR FILTRATION RATE. ESTIMATED GFR IS NOT APPLICABLE FOR DIALYSIS PATIENTS. CBC W/PLT COUNT & AUTO [id number] 06:30:00 Test Item Value Reference Range Comments WHITE BLOOD CELL COUNT (BEAKER) (test nknw=107) 4.6 K/ L 3.5-10.5 RED BLOOD CELL COUNT (BEAKER) (test qwpo=215) 2.50 M/ L 4.63-6.08 HEMOGLOBIN (BEAKER) (test pncz=441) 8.4 GM/DL 13.7-17.5 HEMATOCRIT (BEAKER) (test kstn=807) 26.3 % 40.1-51.0 MEAN CORPUSCULAR VOLUME (BEAKER) (test afeq=170) 105.2 fL 79.0-92.2 MEAN CORPUSCULAR HEMOGLOBIN (BEAKER) (test 33.6 pg 25.7-32.2 nvuv=558) MEAN CORPUSCULAR HEMOGLOBIN CONC (BEAKER) (test 31.9 GM/DL 32.3-36.5 oocp=117) RED CELL DISTRIBUTION WIDTH (BEAKER) (test 15.6 % 11.6-14.4 xbwo=340) PLATELET COUNT (BEAKER) (test dfzc=442) 62 K/CU MM 150-450 MEAN PLATELET VOLUME (BEAKER) (test hvsf=376) 10.9 fL 9.4-12.4 NUCLEATED RED BLOOD CELLS (BEAKER) (test 0 /100 WBC 0-0 vndw=604) NEUTROPHILS RELATIVE PERCENT (BEAKER) (test 62 % efau=920) LYMPHOCYTES RELATIVE PERCENT (BEAKER) (test 18 % gqfu=586) MONOCYTES RELATIVE PERCENT (BEAKER) (test 17 % zndr=280) EOSINOPHILS RELATIVE PERCENT (BEAKER) (test 3 % enzh=794) BASOPHILS RELATIVE PERCENT (BEAKER) (test 0 % srev=011) NEUTROPHILS ABSOLUTE COUNT (BEAKER) (test 2.88 K/ L 1.78-5.38 dfhb=391) LYMPHOCYTES ABSOLUTE COUNT (BEAKER) (test 0.82 K/ L 1.32-3.57 odgb=648) MONOCYTES ABSOLUTE COUNT (BEAKER) (test mudz=667) 0.78 K/ L 0.30-0.82 EOSINOPHILS ABSOLUTE COUNT (BEAKER) (test 0.12 K/ L 0.04-0.54 mdzk=881) BASOPHILS ABSOLUTE COUNT (BEAKER) (test ewtx=305) 0.01 K/ L 0.01-0.08 IMMATURE GRANULOCYTES-RELATIVE PERCENT (BEAKER) 0 % 0-1 (test jbfz=5859) RAD, CHEST, 1 VIEW, NON [id number] 04:10:00post-operative day 1Reason for exam:->chfShould this be performed at the bedside?->YesFINAL REPORT RAD, CHEST, 1 VIEW, NON DEPT INDICATION: chf COMPARISON: Prior day's exam FINDINGS: Portable frontal view of the chest. IMPRESSION: Support Lines: Interval placement of right IJ central venous catheter with tip overlying the distal SVC. Lungs and pleura: Worsenedleft retrocardiac opacity favored to represent partial left lower lobe collapse. Small bilateral pleural effusions. Interval increase in interstitial lung markings consistent with worsening interstitial pulmonary edema. No pneumothorax.Heart and mediastinum: Stable contours. Stable surgical changes.Additional findings: None. Signed: David Jhaeport Verified Date/Time: 09/11/2017 04:10:08 Reading Location: [address] Reading Room BASIC METABOLIC [id number] 04:02:00 Test Item Value Reference Range Comments SODIUM (BEAKER) (test 136 meq/L 136-145 iezz=048) POTASSIUM (BEAKER) (test 3.8 meq/L 3.5-5.1 lrzz=198) CHLORIDE (BEAKER) (test 104 meq/L 98-107 mzoh=072) CO2 (BEAKER) (test 22 meq/L 22-29 ycqe=466) BLOOD UREA NITROGEN 16 mg/dL 7-21 (BEAKER) (test aysd=069) CREATININE (BEAKER) (test 0.92 mg/dL 0.57-1.25 cxup=336) GLUCOSE RANDOM (BEAKER) 132 mg/dL 70-105 (test eomz=291) CALCIUM (BEAKER) (test 8.9 mg/dL 8.4-10.2 xzky=447) EGFR (BEAKER) (test 78 mL/min/1.73 sq m ESTIMATED GFR IS NOT asox=8665) ACCURATE CREATININE CLEARANCE IN PREDICTING GLOMERULAR FILTRATION RATE. ESTIMATED GFR IS NOT APPLICABLE FOR DIALYSIS PATIENTS. Specimen slightly ictericCBC W/PLT COUNT & AUTO [id number] 03:48 :00 Test Item Value Reference Range Comments WHITE BLOOD CELL COUNT (BEAKER) (test eybk=370) 5.7 K/ L 3.5-10.5 RED BLOOD CELL COUNT (BEAKER) (test lcua=399) 2.73 M/ L 4.63-6.08 HEMOGLOBIN (BEAKER) (test xxrz=575) 9.2 GM/DL 13.7-17.5 HEMATOCRIT (BEAKER) (test ceda=226) 29.1 % 40.1-51.0 MEAN CORPUSCULAR VOLUME (BEAKER) (test gfze=554) 106.6 fL 79.0-92.2 MEAN CORPUSCULAR HEMOGLOBIN (BEAKER) (test 33.7 pg 25.7-32.2 ibmp=778) MEAN CORPUSCULAR HEMOGLOBIN CONC (BEAKER) (test 31.6 GM/DL 32.3-36.5 swga=191) RED CELL DISTRIBUTION WIDTH (BEAKER) (test 15.4 % 11.6-14.4 tjek=072) PLATELET COUNT (BEAKER) (test eqxa=901) 84 K/CU MM 150-450 MEAN PLATELET VOLUME (BEAKER) (test yjff=052) 10.3 fL 9.4-12.4 NUCLEATED RED BLOOD CELLS (BEAKER) (test 0 /100 WBC 0-0 smdo=076) NEUTROPHILS RELATIVE PERCENT (BEAKER) (test 76 % qizc=330) LYMPHOCYTES RELATIVE PERCENT (BEAKER) (test 10 % hvtg=042) MONOCYTES RELATIVE PERCENT (BEAKER) (test 10 % bbft=622) EOSINOPHILS RELATIVE PERCENT (BEAKER) (test 3 % vhpi=662) BASOPHILS RELATIVE PERCENT (BEAKER) (test 0 % rrmb=283) NEUTROPHILS ABSOLUTE COUNT (BEAKER) (test 4.33 K/ L 1.78-5.38 hwpg=585) LYMPHOCYTES ABSOLUTE COUNT (BEAKER) (test 0.59 K/ L 1.32-3.57 ymnu=180) MONOCYTES ABSOLUTE COUNT (BEAKER) (test eaqk=155) 0.57 K/ L 0.30-0.82 EOSINOPHILS ABSOLUTE COUNT (BEAKER) (test 0.16 K/ L 0.04-0.54 qdbb=500) BASOPHILS ABSOLUTE COUNT (BEAKER) (test vzck=682) 0.02 K/ L 0.01-0.08 IMMATURE GRANULOCYTES-RELATIVE PERCENT (BEAKER) 0 % 0-1 (test vpoq=5240) [id number] 16:36:00 Test Item Value Reference Range Comments ACTIVATED CLOTTING TIME 142 sec TESTED AT [facility] [address] (BEAKER) (test nlov=980) [place] [id number] 16:02:00 Test Item Value Reference Range Comments ACTIVATED CLOTTING TIME 279 sec TESTED AT [facility] [address] (BEAKER) (test kmiy=969) [place] [id number] 16:02:00 Test Item Value Reference Range Comments ACTIVATED CLOTTING TIME 252 sec TESTED AT [facility] [address] (BEAKER) (test ffwk=029) [place] [id number] B-TYPE NATRIURETIC FACTOR (BNP)2017-08-24 15:17:00 Test Item Value Reference Range Comments B-TYPE NATRIURETIC PEPTIDE (BEAKER) (test 170 pg/mL 0-100 ryfa=543) BASIC METABOLIC [id number] 15:08:00 Test Item Value Reference Range Comments SODIUM (BEAKER) (test 139 meq/L 136-145 eugy=882) POTASSIUM (BEAKER) (test 4.1 meq/L 3.5-5.1 qbhy=501) CHLORIDE (BEAKER) (test 99 meq/L 98-107 iebj=855) CO2 (BEAKER) (test 33 meq/L 22-29 zjkx=303) BLOOD UREA NITROGEN 20 mg/dL 7-21 (BEAKER) (test pcsc=842) CREATININE (BEAKER) (test 1.02 mg/dL 0.57-1.25 qjpy=780) GLUCOSE RANDOM (BEAKER) 132 mg/dL 70-105 (test ptel=152) CALCIUM (BEAKER) (test 9.9 mg/dL 8.4-10.2 riqn=296) EGFR (BEAKER) (test 69 mL/min/1.73 sq m ESTIMATED GFR IS NOT sppm=5816) ACCURATE CREATININE CLEARANCE IN PREDICTING GLOMERULAR FILTRATION RATE. ESTIMATED GFR IS NOT APPLICABLE FOR DIALYSIS PATIENTS. Specimen slightly [id number] 15:08:00 Test Item Value Reference Range Comments ALBUMIN (BEAKER) (test euab=2291) 4.2 g/dL 3.5-5.0 PROTHROMBIN [id number] 14:59:00 Test Item Value Reference Range Comments PROTIME (BEAKER) (test dtyh=891) 16.7 seconds 11.7-14.7 INR (BEAKER) (test fduc=400) 1.4 <=5.9 RECOMMENDED COUMADIN/WARFARIN INR THERAPY RANGESSTANDARD DOSE: 2.0 - 3.0 Includes: PROPHYLAXIS forvenous thrombosis, systemic embolization; TREATMENT for venous thrombosis and/or pulmonary embolus.HIGH RISK: Target INR is 2.5-3.5 for patients with mechanical heart valves.CBC W/PLT COUNT & AUTO [id number] 14:53:00 Test Item Value Reference Range Comments WHITE BLOOD CELL COUNT (BEAKER) (test upko=870) 3.7 K/ L 3.5-10.5 RED BLOOD CELL COUNT (BEAKER) (test jebu=308) 3.11 M/ L 4.63-6.08 HEMOGLOBIN (BEAKER) (test koyx=141) 10.5 GM/DL 13.7-17.5 HEMATOCRIT (BEAKER) (test tjwv=367) 32.3 % 40.1-51.0 MEAN CORPUSCULAR VOLUME (BEAKER) (test eapy=860) 103.9 fL 79.0-92.2 MEAN CORPUSCULAR HEMOGLOBIN (BEAKER) (test 33.8 pg 25.7-32.2 pxib=653) MEAN CORPUSCULAR HEMOGLOBIN CONC (BEAKER) (test 32.5 GM/DL 32.3-36.5 mxpf=682) RED CELL DISTRIBUTION WIDTH (BEAKER) (test 15.8 % 11.6-14.4 shfo=246) PLATELET COUNT (BEAKER) (test vuom=789) 139 K/CU MM 150-450 MEAN PLATELET VOLUME (BEAKER) (test glxz=833) 10.2 fL 9.4-12.4 NUCLEATED RED BLOOD CELLS (BEAKER) (test 0 /100 WBC 0-0 vjwq=008) NEUTROPHILS RELATIVE PERCENT (BEAKER) (test 59 % tsfv=336) LYMPHOCYTES RELATIVE PERCENT (BEAKER) (test 23 % psxs=719) MONOCYTES RELATIVE PERCENT (BEAKER) (test 13 % qfpn=246) EOSINOPHILS RELATIVE PERCENT (BEAKER) (test 4 % ukpo=506) BASOPHILS RELATIVE PERCENT (BEAKER) (test 1 % jilb=344) NEUTROPHILS ABSOLUTE COUNT (BEAKER) (test 2.18 K/ L 1.78-5.38 mwep=154) LYMPHOCYTES ABSOLUTE COUNT (BEAKER) (test 0.86 K/ L 1.32-3.57 ixsk=702) MONOCYTES ABSOLUTE COUNT (BEAKER) (test 0.46 K/ L 0.30-0.82 tnxf=839) EOSINOPHILS ABSOLUTE COUNT (BEAKER) (test 0.14 K/ L 0.04-0.54 jlla=299) BASOPHILS ABSOLUTE COUNT (BEAKER) (test 0.04 K/ L 0.01-0.08 zjbp=508) IMMATURE GRANULOCYTES-RELATIVE PERCENT (BEAKER) 0 % 0-1 (test ujzp=3266) BASIC METABOLIC [id number] 06:31:00 Test Item Value Reference Range Comments SODIUM (BEAKER) (test 136 meq/L 136-145 seqe=836) POTASSIUM (BEAKER) (test 4.4 meq/L 3.5-5.1 wndq=288) CHLORIDE (BEAKER) (test 94 meq/L 98-107 wlgu=174) CO2 (BEAKER) (test 37 meq/L 22-29 bjtr=761) BLOOD UREA NITROGEN 26 mg/dL 7-21 (BEAKER) (test fxju=659) CREATININE (BEAKER) (test 1.07 mg/dL 0.57-1.25 jzhz=877) GLUCOSE RANDOM (BEAKER) 115 mg/dL 70-105 (test izxf=973) CALCIUM (BEAKER) (test 9.6 mg/dL 8.4-10.2 ykwy=399) EGFR (BEAKER) (test 66 mL/min/1.73 sq m ESTIMATED GFR IS NOT qvmn=9498) ACCURATE CREATININE CLEARANCE IN PREDICTING GLOMERULAR FILTRATION RATE. ESTIMATED GFR IS NOT APPLICABLE FOR DIALYSIS PATIENTS. URINALYSIS W/ [id number] 17:39:00 Test Item Value Reference Range Comments COLOR (BEAKER) (test wuql=558) Yellow CLARITY (BEAKER) (test ysej=602) Cloudy SPECIFIC GRAVITY UA (BEAKER) (test 1.012 1.001-1.035 jjmd=957) PH UA (BEAKER) (test xwnt=081) 6.5 5.0-8.0 PROTEIN UA (BEAKER) (test ksqz=531) 50 mg/dL Negative GLUCOSE UA (BEAKER) (test cveb=018) Negative Negative KETONES UA (BEAKER) (test hmhc=977) Negative Negative BILIRUBIN UA (BEAKER) (test oyxf=911) Negative Negative BLOOD UA (BEAKER) (test tjwn=947) Small Negative NITRITE UA (BEAKER) (test xeck=246) Negative Negative LEUKOCYTE ESTERASE UA (BEAKER) (test Large Negative eapd=006) UROBILINOGEN UA (BEAKER) (test yyye=914) 0.2 mg/dL 0.2-1.0 RBC UA (BEAKER) (test wczs=910) 0 /HPF WBC UA (BEAKER) (test wbkh=347) > /HPF BACTERIA (BEAKER) (test ehsq=886) Moderate SOURCE(BEAKER) (test yeqh=7885) Urine, Clean Catch BASIC METABOLIC [id number] 05:57:00 Test Item Value Reference Range Comments SODIUM (BEAKER) (test 135 meq/L 136-145 tkaq=708) POTASSIUM (BEAKER) (test 4.3 meq/L 3.5-5.1 jdkt=557) CHLORIDE (BEAKER) (test 93 meq/L 98-107 netz=933) CO2 (BEAKER) (test 32 meq/L 22-29 mnxn=537) BLOOD UREA NITROGEN 33 mg/dL 7-21 (BEAKER) (test fkpy=292) CREATININE (BEAKER) (test 1.10 mg/dL 0.57-1.25 iifx=914) GLUCOSE RANDOM (BEAKER) 113 mg/dL 70-105 (test dkot=745) CALCIUM (BEAKER) (test 9.2 mg/dL 8.4-10.2 jpnr=646) EGFR (BEAKER) (test 63 mL/min/1.73 sq m ESTIMATED GFR IS NOT ntil=2708) ACCURATE CREATININE CLEARANCE IN PREDICTING GLOMERULAR FILTRATION RATE. ESTIMATED GFR IS NOT APPLICABLE FOR DIALYSIS PATIENTS. CBC W/PLT COUNT & AUTO [id number] 05:36:00 Test Item Value Reference Range Comments WHITE BLOOD CELL COUNT (BEAKER) (test svjs=893) 4.8 K/ L 3.5-10.5 RED BLOOD CELL COUNT (BEAKER) (test bowj=445) 2.77 M/ L 4.63-6.08 HEMOGLOBIN (BEAKER) (test nllw=697) 9.1 GM/DL 13.7-17.5 HEMATOCRIT (BEAKER) (test sfho=866) 27.9 % 40.1-51.0 MEAN CORPUSCULAR VOLUME (BEAKER) (test znij=416) 100.7 fL 79.0-92.2 MEAN CORPUSCULAR HEMOGLOBIN (BEAKER) (test 32.9 pg 25.7-32.2 pney=992) MEAN CORPUSCULAR HEMOGLOBIN CONC (BEAKER) (test 32.6 GM/DL 32.3-36.5 scfc=745) RED CELL DISTRIBUTION WIDTH (BEAKER) (test 14.6 % 11.6-14.4 htaw=733) PLATELET COUNT (BEAKER) (test kynk=092) 176 K/CU MM 150-450 MEAN PLATELET VOLUME (BEAKER) (test jhze=115) 9.8 fL 9.4-12.4 NUCLEATED RED BLOOD CELLS (BEAKER) (test 0 /100 WBC 0-0 phlo=291) NEUTROPHILS RELATIVE PERCENT (BEAKER) (test 63 % jopq=272) LYMPHOCYTES RELATIVE PERCENT (BEAKER) (test 14 % bqvt=447) MONOCYTES RELATIVE PERCENT (BEAKER) (test 13 % mnbk=705) EOSINOPHILS RELATIVE PERCENT (BEAKER) (test 10 % gupu=319) BASOPHILS RELATIVE PERCENT (BEAKER) (test 1 % trwo=521) NEUTROPHILS ABSOLUTE COUNT (BEAKER) (test 3.05 K/ L 1.78-5.38 dwlp=891) LYMPHOCYTES ABSOLUTE COUNT (BEAKER) (test 0.66 K/ L 1.32-3.57 xhzz=141) MONOCYTES ABSOLUTE COUNT (BEAKER) (test 0.61 K/ L 0.30-0.82 xtpv=095) EOSINOPHILS ABSOLUTE COUNT (BEAKER) (test 0.46 K/ L 0.04-0.54 owuq=409) BASOPHILS ABSOLUTE COUNT (BEAKER) (test 0.04 K/ L 0.01-0.08 nudw=424) IMMATURE GRANULOCYTES-RELATIVE PERCENT (BEAKER) 0 % 0-1 (test tyid=8927) BASIC METABOLIC [id number] 07:35:00 Test Item Value Reference Range Comments SODIUM (BEAKER) (test 134 meq/L 136-145 pprk=589) POTASSIUM (BEAKER) (test 3.7 meq/L 3.5-5.1 hdhl=967) CHLORIDE (BEAKER) (test 95 meq/L 98-107 ywty=595) CO2 (BEAKER) (test 27 meq/L 22-29 qohv=076) BLOOD UREA NITROGEN 30 mg/dL 7-21 (BEAKER) (test enzd=734) CREATININE (BEAKER) (test 1.04 mg/dL 0.57-1.25 hfve=978) GLUCOSE RANDOM (BEAKER) 101 mg/dL 70-105 (test jbrt=569) CALCIUM (BEAKER) (test 8.9 mg/dL 8.4-10.2 thlx=594) EGFR (BEAKER) (test 68 mL/min/1.73 sq m ESTIMATED GFR IS NOT kzbu=6143) ACCURATE CREATININE CLEARANCE IN PREDICTING GLOMERULAR FILTRATION RATE. ESTIMATED GFR IS NOT APPLICABLE FOR DIALYSIS PATIENTS. Specimen slightly ictericBASIC METABOLIC [id number] 06:09:00 Test Item Value Reference Range Comments SODIUM (BEAKER) (test 133 meq/L 136-145 hxwf=138) POTASSIUM (BEAKER) (test 3.9 meq/L 3.5-5.1 rbjq=637) CHLORIDE (BEAKER) (test 97 meq/L 98-107 qlzs=442) CO2 (BEAKER) (test 28 meq/L 22-29 mynx=743) BLOOD UREA NITROGEN 20 mg/dL 7-21 (BEAKER) (test mfqq=571) CREATININE (BEAKER) (test 0.92 mg/dL 0.57-1.25 kqdu=002) GLUCOSE RANDOM (BEAKER) 97 mg/dL 70-105 (test oocr=664) CALCIUM (BEAKER) (test 8.8 mg/dL 8.4-10.2 cheo=939) EGFR (BEAKER) (test 78 mL/min/1.73 sq m ESTIMATED GFR IS NOT vdfi=0797) ACCURATE CREATININE CLEARANCE IN PREDICTING GLOMERULAR FILTRATION RATE. ESTIMATED GFR IS NOT APPLICABLE FOR DIALYSIS PATIENTS. Specimen slightly ictericB-TYPE NATRIURETIC FACTOR (BNP)2017-07-29 06:01:00 Test Item Value Reference Range Comments B-TYPE NATRIURETIC PEPTIDE (BEAKER) (test 109 pg/mL 0-100 qarb=415) RAD, CHEST, 1 VIEW, NON [id number] 17:23:00Reason for exam:->chfShould this be performed at the bedside?->YesFINAL REPORT TECHNIQUE: Frontal chest radiograph dated 07/28/2017 CLINICAL HISTORY: CHF COMPARISON STUDY: Chest CT dated 07/22/2017 and chest radiograph dated 07/17/2017 IMPRESSION:Right-sided vascular line has been removed. There are reticulonodular opacities throughout the lungsbilaterally which is the thickening may be secondary to pulmonary edema versus an atypical pneumonitis. No focal consolidation. No pleural effusion or pneumothorax. Cardiomediastinal silhouette is stable in size. No pulmonary edema. No fracture. Midline sternotomy wires are intact and well aligned. Signed: Rita Rodriguez MDReport Verified Date/Time: 07/28/2017 17:23:24 Reading Location: [facility] Radiology Reading Room URINE [id number] 10:09:00 Test Item Value Reference Range Comments CULTURE (BEAKER) (test KLEBSIELLA PNEUMONIAE >100,000 col/mL plbu=1311) SSP PNEUMONIAE Klebsiella pneumoniae ssp pneumoniae Amikacin (test code=1) Ampicillin + Sulbactam (test code=6) Aztreonam (test code=32) Cefepime (test code=51) Cefoxitin (test code=68) Ceftazidime (test code=27) Ceftriaxone (test code=52) Ertapenem (test code=38) Gentamicin (test code=18) Levofloxacin (test code=22) Meropenem (test code=34) Nitrofurantoin (test code=23) Piperacillin + Tazobactam (test code=29) Tetracycline (test code=2) Tobramycin (test code=25) Trimethoprim + Sulfamethoxazole (test code=47) CULTURE (BEAKER) (test STENOTROPHOMONAS 50-59,000 col/mL eqxf=7827) MALTOPHILIA Stenotrophomonas maltophilia Ceftazidime (test Susceptible 0-8 , code=27) Resistant <0 or >8 Levofloxacin (test Susceptible 0-2 , code=22) Resistant <0 or >2 Minocycline (test Susceptible 0-4 , code=35) Resistant <0 or >4 Ticarcillin + Susceptible 0-16 Clavulanic Acid (test , Resistant <0 or code=80) >16 Trimethoprim + Susceptible 0-40 Sulfamethoxazole (test , Resistant <0 or code=47) >40 COMPREHENSIVE METABOLIC [id number] 07:06:00 Test Item Value Reference Range Comments TOTAL PROTEIN (BEAKER) 6.3 gm/dL 6.0-8.3 (test gkii=190) ALBUMIN (BEAKER) (test 3.4 g/dL 3.5-5.0 nggz=5627) ALKALINE PHOSPHATASE 122 U/L 40-150 (BEAKER) (test tarq=627) BILIRUBIN TOTAL (BEAKER) 2.2 mg/dL 0.2-1.2 (test bhhz=756) SODIUM (BEAKER) (test 137 meq/L 136-145 gxuu=033) POTASSIUM (BEAKER) (test 4.8 meq/L 3.5-5.1 lvzw=278) CHLORIDE (BEAKER) (test 102 meq/L 98-107 jjyg=677) CO2 (BEAKER) (test 27 meq/L 22-29 kohl=021) BLOOD UREA NITROGEN 17 mg/dL 7-21 (BEAKER) (test xgip=392) CREATININE (BEAKER) (test 0.80 mg/dL 0.57-1.25 tlnb=233) GLUCOSE RANDOM (BEAKER) 122 mg/dL 70-105 (test tapq=042) CALCIUM (BEAKER) (test 9.1 mg/dL 8.4-10.2 gast=265) AST (SGOT) (BEAKER) (test 31 U/L 5-34 wsyi=731) ALT (SGPT) (BEAKER) (test 19 U/L 6-55 bkeq=933) EGFR (BEAKER) (test 92 mL/min/1.73 sq m ESTIMATED GFR IS NOT ilwb=4700) ACCURATE CREATININE CLEARANCE IN PREDICTING GLOMERULAR FILTRATION RATE. ESTIMATED GFR IS NOT APPLICABLE FOR DIALYSIS PATIENTS. Specimen slightly ictericCBC W/PLT COUNT & AUTO [id number] 06:35 :00 Test Item Value Reference Range Comments WHITE BLOOD CELL COUNT (BEAKER) (test ngkg=893) 6.0 K/ L 3.5-10.5 RED BLOOD CELL COUNT (BEAKER) (test sbfz=475) 2.86 M/ L 4.63-6.08 HEMOGLOBIN (BEAKER) (test xicv=236) 9.6 GM/DL 13.7-17.5 HEMATOCRIT (BEAKER) (test hmyp=175) 29.2 % 40.1-51.0 MEAN CORPUSCULAR VOLUME (BEAKER) (test efnh=409) 102.1 fL 79.0-92.2 MEAN CORPUSCULAR HEMOGLOBIN (BEAKER) (test 33.6 pg 25.7-32.2 eyuv=842) MEAN CORPUSCULAR HEMOGLOBIN CONC (BEAKER) (test 32.9 GM/DL 32.3-36.5 sfrk=959) RED CELL DISTRIBUTION WIDTH (BEAKER) (test 14.7 % 11.6-14.4 qgyj=237) PLATELET COUNT (BEAKER) (test onrf=047) 169 K/CU MM 150-450 MEAN PLATELET VOLUME (BEAKER) (test imaw=236) 9.8 fL 9.4-12.4 NUCLEATED RED BLOOD CELLS (BEAKER) (test 0 /100 WBC 0-0 ovqh=184) NEUTROPHILS RELATIVE PERCENT (BEAKER) (test 69 % cfvg=739) LYMPHOCYTES RELATIVE PERCENT (BEAKER) (test 12 % kasp=495) MONOCYTES RELATIVE PERCENT (BEAKER) (test 11 % efez=778) EOSINOPHILS RELATIVE PERCENT (BEAKER) (test 7 % phfh=353) BASOPHILS RELATIVE PERCENT (BEAKER) (test 0 % vbbm=644) NEUTROPHILS ABSOLUTE COUNT (BEAKER) (test 4.13 K/ L 1.78-5.38 jbxz=643) LYMPHOCYTES ABSOLUTE COUNT (BEAKER) (test 0.70 K/ L 1.32-3.57 lqtb=309) MONOCYTES ABSOLUTE COUNT (BEAKER) (test 0.67 K/ L 0.30-0.82 xosb=509) EOSINOPHILS ABSOLUTE COUNT (BEAKER) (test 0.44 K/ L 0.04-0.54 xqup=309) BASOPHILS ABSOLUTE COUNT (BEAKER) (test 0.02 K/ L 0.01-0.08 qefn=051) IMMATURE GRANULOCYTES-RELATIVE PERCENT (BEAKER) 1 % 0-1 (test msdz=7148) URINALYSIS W/ [id number] 18:38:00 Test Item Value Reference Range Comments COLOR (BEAKER) (test ejue=996) Yellow CLARITY (BEAKER) (test ekkx=880) Clear SPECIFIC GRAVITY UA (BEAKER) (test 1.005 1.001-1.035 eqsd=193) PH UA (BEAKER) (test vzqm=592) 6.5 5.0-8.0 PROTEIN UA (BEAKER) (test rkjl=716) Negative Negative GLUCOSE UA (BEAKER) (test fkar=577) Negative Negative KETONES UA (BEAKER) (test rvni=824) Negative Negative BILIRUBIN UA (BEAKER) (test nqfo=573) Negative Negative BLOOD UA (BEAKER) (test iikx=439) Negative Negative NITRITE UA (BEAKER) (test mpve=481) Negative Negative LEUKOCYTE ESTERASE UA (BEAKER) (test Negative Negative pirk=110) UROBILINOGEN UA (BEAKER) (test pndn=328) 0.2 mg/dL 0.2-1.0 RBC UA (BEAKER) (test wujc=202) 0 /HPF WBC UA (BEAKER) (test izli=915) < /HPF SOURCE(BEAKER) (test keqz=1156) Urine, Clean Catch CBC W/PLT COUNT & AUTO [id number] 04:47:00 Test Item Value Reference Range Comments WHITE BLOOD CELL COUNT (BEAKER) (test ukym=089) 5.5 K/ L 3.5-10.5 RED BLOOD CELL COUNT (BEAKER) (test awnq=448) 2.72 M/ L 4.63-6.08 HEMOGLOBIN (BEAKER) (test vlqs=779) 8.9 GM/DL 13.7-17.5 HEMATOCRIT (BEAKER) (test mbsw=138) 27.1 % 40.1-51.0 MEAN CORPUSCULAR VOLUME (BEAKER) (test xtsl=975) 99.6 fL 79.0-92.2 MEAN CORPUSCULAR HEMOGLOBIN (BEAKER) (test 32.7 pg 25.7-32.2 aauc=215) MEAN CORPUSCULAR HEMOGLOBIN CONC (BEAKER) (test 32.8 GM/DL 32.3-36.5 xmud=366) RED CELL DISTRIBUTION WIDTH (BEAKER) (test 15.0 % 11.6-14.4 kkow=176) PLATELET COUNT (BEAKER) (test vcun=836) 149 K/CU MM 150-450 MEAN PLATELET VOLUME (BEAKER) (test cojv=401) 10.0 fL 9.4-12.4 NUCLEATED RED BLOOD CELLS (BEAKER) (test 0 /100 WBC 0-0 qsnw=884) NEUTROPHILS RELATIVE PERCENT (BEAKER) (test 62 % unfp=000) LYMPHOCYTES RELATIVE PERCENT (BEAKER) (test 13 % ozwz=279) MONOCYTES RELATIVE PERCENT (BEAKER) (test 14 % xauj=712) EOSINOPHILS RELATIVE PERCENT (BEAKER) (test 9 % vqkr=427) BASOPHILS RELATIVE PERCENT (BEAKER) (test 1 % nlvd=467) NEUTROPHILS ABSOLUTE COUNT (BEAKER) (test 3.40 K/ L 1.78-5.38 vbmn=355) LYMPHOCYTES ABSOLUTE COUNT (BEAKER) (test 0.72 K/ L 1.32-3.57 azdo=208) MONOCYTES ABSOLUTE COUNT (BEAKER) (test 0.76 K/ L 0.30-0.82 cjcp=469) EOSINOPHILS ABSOLUTE COUNT (BEAKER) (test 0.50 K/ L 0.04-0.54 krss=440) BASOPHILS ABSOLUTE COUNT (BEAKER) (test 0.03 K/ L 0.01-0.08 xpam=460) IMMATURE GRANULOCYTES-RELATIVE PERCENT (BEAKER) 1 % 0-1 (test jouk=5923) BASIC METABOLIC [id number] 04:36:00 Test Item Value Reference Range Comments SODIUM (BEAKER) (test 138 meq/L 136-145 rqqt=395) POTASSIUM (BEAKER) (test 4.2 meq/L 3.5-5.1 tjzh=046) CHLORIDE (BEAKER) (test 104 meq/L 98-107 jpwp=355) CO2 (BEAKER) (test 28 meq/L 22-29 vpyp=275) BLOOD UREA NITROGEN 16 mg/dL 7-21 (BEAKER) (test ovmn=588) CREATININE (BEAKER) (test 0.79 mg/dL 0.57-1.25 rbni=281) GLUCOSE RANDOM (BEAKER) 102 mg/dL 70-105 (test djgn=879) CALCIUM (BEAKER) (test 8.8 mg/dL 8.4-10.2 qxim=663) EGFR (BEAKER) (test 93 mL/min/1.73 sq m ESTIMATED GFR IS NOT ztle=6722) ACCURATE CREATININE CLEARANCE IN PREDICTING GLOMERULAR FILTRATION RATE. ESTIMATED GFR IS NOT APPLICABLE FOR DIALYSIS PATIENTS. Specimen slightly ictericB-TYPE NATRIURETIC FACTOR (BNP)2017-07-24 04:34:00 Test Item Value Reference Range Comments B-TYPE NATRIURETIC PEPTIDE (BEAKER) (test 190 pg/mL 0-100 irej=303) [id number] 07:02:00 Test Item Value Reference Range Comments CORTISOL, TOTAL (BEAKER) (test sjvo=8499) 12.9 ug/dL 3.7-19.4 CBC (HEMOGRAM ONLY)2017-07-23 06:17:00 Test Item Value Reference Range Comments WHITE BLOOD CELL COUNT (BEAKER) (test fvey=513) 6.3 K/ L 3.5-10.5 RED BLOOD CELL COUNT (BEAKER) (test ugcn=585) 2.84 M/ L 4.63-6.08 HEMOGLOBIN (BEAKER) (test ctuc=250) 9.3 GM/DL 13.7-17.5 HEMATOCRIT (BEAKER) (test lpqw=716) 28.1 % 40.1-51.0 MEAN CORPUSCULAR VOLUME (BEAKER) (test pvkj=510) 98.9 fL 79.0-92.2 MEAN CORPUSCULAR HEMOGLOBIN (BEAKER) (test 32.7 pg 25.7-32.2 undb=613) MEAN CORPUSCULAR HEMOGLOBIN CONC (BEAKER) (test 33.1 GM/DL 32.3-36.5 zpxn=132) RED CELL DISTRIBUTION WIDTH (BEAKER) (test 14.8 % 11.6-14.4 konx=829) PLATELET COUNT (BEAKER) (test jmrr=258) 136 K/CU MM 150-450 MEAN PLATELET VOLUME (BEAKER) (test unem=479) 9.9 fL 9.4-12.4 NUCLEATED RED BLOOD CELLS (BEAKER) (test 0 /100 WBC 0-0 inth=939) CT, CTA, [id number] 16:16:00Addendum BeginsREPORT STATUS:A Addendum: July 22, 2017 at 1620 hours I have reviewed the CT images for this study and I concur with the nonvascular imaging findings as dictated. Signed: Sandip Ortega MDReport Verified Date/Time: 07/22/2017 16:16:14 Reading Location: [place] [address] Angio Body Reading RoomAddendum EndsFINAL REPORT CT angiography of the thoracoabdominal aorta and pelvic arteries , 22 Jul 2017 INDICATION: This is a 87 year old male with a diagnosis of aortic stenosis, presents for preprocedure TAVR assessment. This study is performed in an attempt to avoid an invasive procedure. TECHNIQUE: Spiral acquisition before and during intravenous contrast administration using a [place] multidetector CT scanner. Images were obtained before and duringthe dynamic passage of intravenous contrast material. Multi-planar 3-D volume- rendering reconstruction was performed using an independent workstation [...] reconstruction, and/or weight based adjustment of the mA/ kV was utilized to reduce the radiation dose to as low as reasonably achievable. FINDINGS: VASCULAR: The central pulmonary artery is prominent. Correlate with appropriate etiology. No evidence of central pulmonary artery embolism is identified. The cardiac chambers demonstrate normal atrioventricular and ventriculoarterial concordance, and systemicand pulmonary venous return. The left ventricle is [...] bypass surgery. The internal mammary arteries are mashpee. A bypass graft is identified, that is a right graft, that connects both to the left circumflex territory as well as the LADterritory. Vascular stent could be placed in these bypass grafts; correlate with implantation history. Minimum distance of this Y graft to the sternum, between the LAD graft , is at image 139 where it is [...] aorta. Moderate calcification seen in the transverse arch , as well as in the descending thoracic aorta and moderate circumferential calcification seen in theabdominal aorta. No acute aortic pathology is seen including dissection or contained rupture and no ectasia or aneurysmal dilation is identified. Of note, in the distal infrarenal abdominal aorta, justabove the takeoff of the left pelvic arteries, linear calcification is identified at the middle of the lumen. This is located at image 430. It is uncertain if this could represent prior atheroscleroticulceration. This also extends into the proximal left common iliac artery. Mild calcification is seenscattered along the proximal left subclavian artery. Minimum diameter, image 54 is approximately 8mm. The right subclavian artery also has minimal calcification seen proximally. At image 44, it measures 7 mm. The coeliac axis, SMA, and JAUNY are patent. Eccentric calcific atherosclerosis is seen. [...] sequelae of prior atherosclerotic ulceration. The common femoralarteries, bilaterally, are unremarkable with calcific atherosclerosis identified. The left and the right SFA are patent. Dimensions that may be helpful for TAVR are as described below: Mild calcification seen in the aortic root and ascending thoracic aorta. The major and minor aortic annulus diametermeasures 27.0 and 20.5 mm, respectively. The aortic [...] to 430 mm2 (23 mm valve); 430 to546 mm2 (26 mm valve); 540 to 683 mm2 (29 mm valve). For reference purpose, per [employer] brochure, recommendation are as follows: CT perimeter between 56.5-62.8 mm (23 mm valve); 62.8-72.3 mm(26 mm valve); 72.3-81.7 mm (29 mm valve); and 81.7-94.2. mm (34 mm valve). Agatston Score is 2064.Aortic valve area is approximately 77 mm where by planimetry. The sinus of Valsalva height to the takeoff of the coronary artery ostium, RCC (diastole): 14.1 mmThe sinus of Valsalva height to the takeoff of the coronary artery ostia, LCC (diastole): 13.9 mm The sinus of Valsalva diameter, RCC (diastole): 34.3 mmThe sinus of Valsalva diameter, LCC ( diastole): 34.4 mmThe sinus of Valsalva diameter, NCC(diastole): 33.1 mm The sinotubular junction measures approximately 28.6 x 30.1 mm. The most inferior bypass graft is approximately 3.4 cm above the aortic annulus. See snapshot for details. The aorticroot angulation measures 48.3 degrees. The minimal and perpendicular abdominal aortic diameter, measures 8.3 and 12.3 mm, respectively , at image 49, with focal calcification seen [...] than expected, however, they are small in size , therefore considered nonspecific in nature. In the [...] abdomen, the liver and spleen appears unremarkable. Theliver edge is smooth. No abnormal enhancing structures identified. Subcentimeter hypodensities identified in the right hepatic lobe at image 312, too small to characterize. The pancreas appears unremarkable. Patient is post cholecystectomy. The adrenal glands are unremarkable. No acute renal pathologyis seen and no hydronephrosis or perirenal fluid [...] the a degree of subcutaneous edema/anasarca is identified,S/L identified in the lower abdomen/pelvic level. Inflammatory changes are seen in both groins, leftgreater than right. In addition, some soft tissue [...] Patient is post coronary artery bypass surgery withessentially three bypass grafts present where one is a Y graft supplying the LAD and LCx territories. Biatrial enlargement. 3. Bibasal pleural effusion is identified. The central pulmonary artery is mildly prominent with no evidence of central pulmonary artery embolism. Pulmonary vasculature is prominent indicating cardiac congestion. 4. Other findings as described above. 5. An addendum will be dictated by the Clerk Supervisor Radiologist regarding the nonvascular findings. Signed: Abdoul Galloway MDReport Verified Date/Time: 07/22/2017 15:43:41 Reading Location: [place] [address], CTA [id number] 16:16:00TAVRAddendum BeginsREPORT STATUS:A Addendum: July 22, 2017 at 1620 hours I have reviewed the CT images for this study and I concur with the nonvascular imaging findings as dictated. Signed: Sandip Ortega Verified Date/Time: 07/22/2017 16:16:14 Reading Location: [place] [id number] Angio Body Reading RoomAddendum EndsFINAL REPORT CT angiography of the thoracoabdominal aorta [...] CT scanner. Images were obtained before and duringthe dynamic passage of intravenous contrast material. Multi-planar [...] demonstrate normal atrioventricular and ventriculoarterial concordance, and systemicand pulmonary venous return. The left ventricle is [...] bypass surgery. The internal mammary arteries are [place]. A bypass graft is identified, that is a right graft, that connects both to the left circumflex territory as well as the LADterritory. Vascular stent could be placed in these [...] aorta and moderate circumferential calcification seen in theabdominal aorta. No acute aortic pathology is seen including dissection or contained rupture and no ectasia or aneurysmal dilation is identified. Of note, in the distal infrarenal abdominal aorta, justabove the takeoff of the left pelvic arteries, linear calcification is identified at the middle of the lumen. This is located at image 430. It is uncertain if this could represent prior atheroscleroticulceration. This also extends into the proximal left common iliac artery. Mild calcification is seenscattered along the proximal left subclavian artery. Minimum [...] sequelae of prior atherosclerotic ulceration. The common femoralarteries, bilaterally, are unremarkable with calcific atherosclerosis identified. The left and the right SFA are patent. Dimensions that may be helpful for TAVR are as described below: Mild calcification seen in the aortic root and ascending thoracic aorta. The major and minor aortic annulus diametermeasures 27.0 and 20.5 mm, respectively. The aortic [...] to 430 mm2 (23 mm valve); 430 to546 mm2 (26 mm valve); 540 to 683 mm2 (29 mm valve). For reference purpose, per [employer] brochure, recommendation are as follows: CT perimeter between 56.5-62.8 mm (23 mm valve); 62.8-72.3 mm(26 mm valve); 72.3-81.7 mm (29 mm valve); and 81.7-94.2. mm (34 mm valve). Agatston Score is 2064.Aortic valve area is approximately 77 mm where by planimetry. The sinus of Valsalva height to the takeoff of the coronary artery ostium, RCC (diastole): 14.1 mmThe sinus of Valsalva height to the takeoff of the coronary artery ostia, LCC (diastole): 13.9 mm The sinus of Valsalva diameter, RCC (diastole): 34.3 mmThe sinus of Valsalva diameter, LCC ( diastole): 34.4 mmThe sinus of Valsalva diameter, NCC(diastole): 33.1 mm The sinotubular junction measures approximately 28.6 x 30.1 mm. The most inferior bypass graft is approximately 3.4 cm above the aortic annulus. See snapshot for details. The aorticroot angulation measures 48.3 degrees. The minimal and perpendicular abdominal aortic diameter, measures 8.3 and 12.3 mm, respectively , at image 49, with focal calcification seen [...] than expected, however, they are small in size , therefore considered nonspecific in nature. In the [...] abdomen, the liver and spleen appears unremarkable. Theliver edge is smooth. No abnormal enhancing structures identified. Subcentimeter hypodensities identified in the right hepatic lobe at image 312, too small to characterize. The pancreas appears unremarkable. Patient is post cholecystectomy. The adrenal glands are unremarkable. No acute renal pathologyis seen and no hydronephrosis or perirenal fluid [...] the a degree of subcutaneous edema/anasarca is identified,S/L identified in the lower abdomen/pelvic level. Inflammatory changes are seen in both groins, leftgreater than right. In addition, some soft tissue [...] Patient is post coronary artery bypass surgery withessentially three bypass grafts present where one is a Y graft supplying the LAD and LCx territories. Biatrial enlargement. 3. Bibasal pleural effusion is identified. The central pulmonary artery is mildly prominent with no evidence of central pulmonary artery embolism. Pulmonary vasculature is prominent indicating cardiac congestion. 4. Other findings as described above. 5. An addendum will be dictated by the Clerk Supervisor Radiologist regarding the nonvascular findings. Signed: Abdoul Gallowayeport Verified Date/Time: 07/22/2017 15:43:41 Reading Location: [place] [address] Cardiology MRI BASI METABOLIC [id number] 05:06:00 Test Item Value Reference Range Comments SODIUM (BEAKER) (test 139 meq/L 136-145 hlaa=579) POTASSIUM (BEAKER) (test 4.4 meq/L 3.5-5.1 dhsp=402) CHLORIDE (BEAKER) (test 106 meq/L 98-107 rabw=114) CO2 (BEAKER) (test 24 meq/L 22-29 cnul=185) BLOOD UREA NITROGEN 20 mg/dL 7-21 (BEAKER) (test exeq=438) CREATININE (BEAKER) (test 0.80 mg/dL 0.57-1.25 wfzh=265) GLUCOSE RANDOM (BEAKER) 110 mg/dL 70-105 (test jlos=031) CALCIUM (BEAKER) (test 9.3 mg/dL 8.4-10.2 txxa=333) EGFR (BEAKER) (test 92 mL/min/1.73 sq m ESTIMATED GFR IS NOT alpl=8526) ACCURATE CREATININE CLEARANCE IN PREDICTING GLOMERULAR FILTRATION RATE. ESTIMATED GFR IS NOT APPLICABLE FOR DIALYSIS PATIENTS. Specimen slightly ictericB-TYPE NATRIURETIC FACTOR (BNP)2017-07-22 05:00:00 Test Item Value Reference Range Comments B-TYPE NATRIURETIC PEPTIDE (BEAKER) (test 475 pg/mL 0-100 pfbu=297) POCT-GLUCOSE [id number] 20:48:00 Test Item Value Reference Range Comments POC-GLUCOSE METER (BEAKER) 133 mg/dL 70-110 TESTED AT [facility] [address] [facility] (test kevi=9606) [facility] [address] [id number] 06:17:00 Test Item Value Reference Range Comments PHOSPHORUS (BEAKER) (test eurs=099) 2.3 mg/dL 2.3-4.7 [id number] 06:17:00 Test Item Value Reference Range Comments MAGNESIUM (BEAKER) (test hvsu=292) 2.2 mg/dL 1.6-2.6 BASIC METABOLIC [id number] 06:17:00 Test Item Value Reference Range Comments SODIUM (BEAKER) (test 135 meq/L 136-145 pdsq=064) POTASSIUM (BEAKER) (test 4.3 meq/L 3.5-5.1 gvex=175) CHLORIDE (BEAKER) (test 106 meq/L 98-107 vqhy=008) CO2 (BEAKER) (test 23 meq/L 22-29 essf=312) BLOOD UREA NITROGEN 32 mg/dL 7-21 (BEAKER) (test iebz=339) CREATININE (BEAKER) (test 1.06 mg/dL 0.57-1.25 kyww=799) GLUCOSE RANDOM (BEAKER) 107 mg/dL 70-105 (test cmlf=373) CALCIUM (BEAKER) (test 8.6 mg/dL 8.4-10.2 srah=434) EGFR (BEAKER) (test 66 mL/min/1.73 sq m ESTIMATED GFR IS NOT dakm=6428) ACCURATE CREATININE CLEARANCE IN PREDICTING GLOMERULAR FILTRATION RATE. ESTIMATED GFR IS NOT APPLICABLE FOR DIALYSIS PATIENTS. CBC W/PLT COUNT & AUTO [id number] 05:58:00 Test Item Value Reference Range Comments WHITE BLOOD CELL COUNT (BEAKER) (test somo=766) 4.5 K/ L 3.5-10.5 RED BLOOD CELL COUNT (BEAKER) (test vvyo=897) 2.34 M/ L 4.63-6.08 HEMOGLOBIN (BEAKER) (test oafq=055) 7.8 GM/DL 13.7-17.5 HEMATOCRIT (BEAKER) (test zhrj=069) 23.7 % 40.1-51.0 MEAN CORPUSCULAR VOLUME (BEAKER) (test zkjp=698) 101.3 fL 79.0-92.2 MEAN CORPUSCULAR HEMOGLOBIN (BEAKER) (test 33.3 pg 25.7-32.2 elfi=510) MEAN CORPUSCULAR HEMOGLOBIN CONC (BEAKER) (test 32.9 GM/DL 32.3-36.5 vcob=201) RED CELL DISTRIBUTION WIDTH (BEAKER) (test 14.7 % 11.6-14.4 jzuf=295) PLATELET COUNT (BEAKER) (test ngjp=012) 76 K/CU MM 150-450 MEAN PLATELET VOLUME (BEAKER) (test lwsw=523) 10.0 fL 9.4-12.4 NUCLEATED RED BLOOD CELLS (BEAKER) (test 0 /100 WBC 0-0 kudt=138) NEUTROPHILS RELATIVE PERCENT (BEAKER) (test 63 % tzbq=794) LYMPHOCYTES RELATIVE PERCENT (BEAKER) (test 14 % fbpe=521) MONOCYTES RELATIVE PERCENT (BEAKER) (test 13 % zqjd=904) EOSINOPHILS RELATIVE PERCENT (BEAKER) (test 9 % mxfw=749) BASOPHILS RELATIVE PERCENT (BEAKER) (test 0 % nmva=377) NEUTROPHILS ABSOLUTE COUNT (BEAKER) (test 2.82 K/ L 1.78-5.38 upmo=723) LYMPHOCYTES ABSOLUTE COUNT (BEAKER) (test 0.61 K/ L 1.32-3.57 rfny=750) MONOCYTES ABSOLUTE COUNT (BEAKER) (test zbuv=165) 0.59 K/ L 0.30-0.82 EOSINOPHILS ABSOLUTE COUNT (BEAKER) (test 0.39 K/ L 0.04-0.54 judb=893) BASOPHILS ABSOLUTE COUNT (BEAKER) (test waiw=233) 0.01 K/ L 0.01-0.08 IMMATURE GRANULOCYTES-RELATIVE PERCENT (BEAKER) 1 % 0-1 (test gcmb=6026) [id number] 05:42:00 Test Item Value Reference Range Comments MAGNESIUM (BEAKER) (test gkqc=179) 2.2 mg/dL 1.6-2.6 BASIC METABOLIC [id number] 05:42:00 Test Item Value Reference Range Comments SODIUM (BEAKER) (test 135 meq/L 136-145 axia=305) POTASSIUM (BEAKER) (test 4.2 meq/L 3.5-5.1 ltqj=749) CHLORIDE (BEAKER) (test 106 meq/L 98-107 hvgx=026) CO2 (BEAKER) (test 23 meq/L 22-29 fcqi=122) BLOOD UREA NITROGEN 41 mg/dL 7-21 (BEAKER) (test wlhq=077) CREATININE (BEAKER) (test 1.43 mg/dL 0.57-1.25 grnx=783) GLUCOSE RANDOM (BEAKER) 118 mg/dL 70-105 (test dwll=036) CALCIUM (BEAKER) (test 8.4 mg/dL 8.4-10.2 xsef=298) EGFR (BEAKER) (test 47 mL/min/1.73 sq m ESTIMATED GFR IS NOT jrtj=9979) ACCURATE CREATININE CLEARANCE IN PREDICTING GLOMERULAR FILTRATION RATE. ESTIMATED GFR IS NOT APPLICABLE FOR DIALYSIS PATIENTS. CBC W/PLT COUNT & AUTO [id number] 08:51:00 Test Item Value Reference Range Comments WHITE BLOOD CELL COUNT (BEAKER) (test pibe=756) 4.8 K/ L 3.5-10.5 RED BLOOD CELL COUNT (BEAKER) (test vkcj=932) 2.42 M/ L 4.63-6.08 HEMOGLOBIN (BEAKER) (test xkwn=173) 8.0 GM/DL 13.7-17.5 HEMATOCRIT (BEAKER) (test gfus=688) 24.6 % 40.1-51.0 MEAN CORPUSCULAR VOLUME (BEAKER) (test pqmv=966) 101.7 fL 79.0-92.2 MEAN CORPUSCULAR HEMOGLOBIN (BEAKER) (test 33.1 pg 25.7-32.2 vyke=910) MEAN CORPUSCULAR HEMOGLOBIN CONC (BEAKER) (test 32.5 GM/DL 32.3-36.5 tbxk=640) RED CELL DISTRIBUTION WIDTH (BEAKER) (test 15.2 % 11.6-14.4 dzmj=185) PLATELET COUNT (BEAKER) (test vxcj=607) 62 K/CU MM 150-450 MEAN PLATELET VOLUME (BEAKER) (test xgin=773) 10.7 fL 9.4-12.4 NUCLEATED RED BLOOD CELLS (BEAKER) (test 0 /100 WBC 0-0 cuvg=913) NEUTROPHILS RELATIVE PERCENT (BEAKER) (test 72 % cyek=482) LYMPHOCYTES RELATIVE PERCENT (BEAKER) (test 8 % ityn=871) MONOCYTES RELATIVE PERCENT (BEAKER) (test 13 % pekm=231) EOSINOPHILS RELATIVE PERCENT (BEAKER) (test 7 % frst=334) BASOPHILS RELATIVE PERCENT (BEAKER) (test 0 % sqov=105) NEUTROPHILS ABSOLUTE COUNT (BEAKER) (test 3.46 K/ L 1.78-5.38 xgci=787) LYMPHOCYTES ABSOLUTE COUNT (BEAKER) (test 0.36 K/ L 1.32-3.57 grth=609) MONOCYTES ABSOLUTE COUNT (BEAKER) (test vqap=114) 0.64 K/ L 0.30-0.82 EOSINOPHILS ABSOLUTE COUNT (BEAKER) (test 0.33 K/ L 0.04-0.54 zbso=902) BASOPHILS ABSOLUTE COUNT (BEAKER) (test gjnz=021) 0.01 K/ L 0.01-0.08 IMMATURE GRANULOCYTES-RELATIVE PERCENT (BEAKER) 0 % 0-1 (test yxbn=9220) BASIC METABOLIC [id number] 06:59:00 Test Item Value Reference Range Comments SODIUM (BEAKER) (test 134 meq/L 136-145 pyha=209) POTASSIUM (BEAKER) (test 4.3 meq/L 3.5-5.1 ymzn=663) CHLORIDE (BEAKER) (test 106 meq/L 98-107 dzxr=249) CO2 (BEAKER) (test 22 meq/L 22-29 ttnb=823) BLOOD UREA NITROGEN 48 mg/dL 7-21 (BEAKER) (test oipg=840) CREATININE (BEAKER) (test 2.22 mg/dL 0.57-1.25 fnwx=189) GLUCOSE RANDOM (BEAKER) 151 mg/dL 70-105 (test hlof=141) CALCIUM (BEAKER) (test 8.1 mg/dL 8.4-10.2 jhqp=559) EGFR (BEAKER) (test 28 mL/min/1.73 sq m ESTIMATED GFR IS NOT pnht=0403) ACCURATE CREATININE CLEARANCE IN PREDICTING GLOMERULAR FILTRATION RATE. ESTIMATED GFR IS NOT APPLICABLE FOR DIALYSIS PATIENTS. Specimen slightly [id number] 06:50:00 Test Item Value Reference Range Comments MAGNESIUM (BEAKER) (test mctd=352) 2.2 mg/dL 1.6-2.6 [id number] 14:04:00 Test Item Value Reference Range Comments CORTISOL, TOTAL (BEAKER) (test jpec=6375) 14.3 ug/dL 3.7-19.4 B-TYPE NATRIURETIC FACTOR (BNP)2017-07-17 05:11:00 Test Item Value Reference Range Comments B-TYPE NATRIURETIC PEPTIDE (BEAKER) (test 462 pg/mL 0-100 pskm=135) URIC [id number] 05:09:00 Test Item Value Reference Range Comments URIC ACID (BEAKER) (test fiob=975) 9.8 mg/dL 2.6-7.2 [id number] 05:09:00 Test Item Value Reference Range Comments MAGNESIUM (BEAKER) (test ezbf=617) 2.0 mg/dL 1.6-2.6 COMPREHENSIVE METABOLIC [id number] 05:09:00 Test Item Value Reference Range Comments TOTAL PROTEIN (BEAKER) 5.4 gm/dL 6.0-8.3 (test rgzg=042) ALBUMIN (BEAKER) (test 3.2 g/dL 3.5-5.0 xizb=7785) ALKALINE PHOSPHATASE 62 U/L 40-150 (BEAKER) (test ovfk=137) BILIRUBIN TOTAL (BEAKER) 1.5 mg/dL 0.2-1.2 (test fakb=995) SODIUM (BEAKER) (test 137 meq/L 136-145 sozn=466) POTASSIUM (BEAKER) (test 4.2 meq/L 3.5-5.1 hlms=910) CHLORIDE (BEAKER) (test 107 meq/L 98-107 lhtu=924) CO2 (BEAKER) (test 21 meq/L 22-29 fhks=585) BLOOD UREA NITROGEN 43 mg/dL 7-21 (BEAKER) (test kwqr=084) CREATININE (BEAKER) (test 2.58 mg/dL 0.57-1.25 rxza=080) GLUCOSE RANDOM (BEAKER) 201 mg/dL 70-105 (test gnnv=845) CALCIUM (BEAKER) (test 8.1 mg/dL 8.4-10.2 lfcj=743) AST (SGOT) (BEAKER) (test 28 U/L 5-34 unww=376) ALT (SGPT) (BEAKER) (test 9 U/L 6-55 mtbw=625) EGFR (BEAKER) (test 24 mL/min/1.73 sq m ESTIMATED GFR IS NOT fiyw=5526) ACCURATE CREATININE CLEARANCE IN PREDICTING GLOMERULAR FILTRATION RATE. ESTIMATED GFR IS NOT APPLICABLE FOR DIALYSIS PATIENTS. CBC W/PLT COUNT & AUTO [id number] 04:52:00 Test Item Value Reference Range Comments WHITE BLOOD CELL COUNT (BEAKER) (test dbni=822) 7.5 K/ L 3.5-10.5 RED BLOOD CELL COUNT (BEAKER) (test cbao=961) 2.20 M/ L 4.63-6.08 HEMOGLOBIN (BEAKER) (test jgve=591) 7.4 GM/DL 13.7-17.5 HEMATOCRIT (BEAKER) (test ophs=183) 23.1 % 40.1-51.0 MEAN CORPUSCULAR VOLUME (BEAKER) (test cfem=463) 105.0 fL 79.0-92.2 MEAN CORPUSCULAR HEMOGLOBIN (BEAKER) (test 33.6 pg 25.7-32.2 zikc=954) MEAN CORPUSCULAR HEMOGLOBIN CONC (BEAKER) (test 32.0 GM/DL 32.3-36.5 veyz=407) RED CELL DISTRIBUTION WIDTH (BEAKER) (test 14.0 % 11.6-14.4 xvin=440) PLATELET COUNT (BEAKER) (test tiev=607) 84 K/CU MM 150-450 MEAN PLATELET VOLUME (BEAKER) (test hwst=947) 11.1 fL 9.4-12.4 NUCLEATED RED BLOOD CELLS (BEAKER) (test 0 /100 WBC 0-0 fohw=704) NEUTROPHILS RELATIVE PERCENT (BEAKER) (test 77 % liaf=859) LYMPHOCYTES RELATIVE PERCENT (BEAKER) (test 8 % rdjl=845) MONOCYTES RELATIVE PERCENT (BEAKER) (test 13 % toxm=467) EOSINOPHILS RELATIVE PERCENT (BEAKER) (test 1 % jnff=711) BASOPHILS RELATIVE PERCENT (BEAKER) (test 0 % ndhx=495) NEUTROPHILS ABSOLUTE COUNT (BEAKER) (test 5.81 K/ L 1.78-5.38 nsff=174) LYMPHOCYTES ABSOLUTE COUNT (BEAKER) (test 0.61 K/ L 1.32-3.57 oewd=383) MONOCYTES ABSOLUTE COUNT (BEAKER) (test csom=922) 0.96 K/ L 0.30-0.82 EOSINOPHILS ABSOLUTE COUNT (BEAKER) (test 0.08 K/ L 0.04-0.54 oigz=253) BASOPHILS ABSOLUTE COUNT (BEAKER) (test ndkt=501) 0.03 K/ L 0.01-0.08 IMMATURE GRANULOCYTES-RELATIVE PERCENT (BEAKER) 0 % 0-1 (test jbte=0655) RAD, CHEST, 1 VIEW, NON [id number] 04:01:00Reason for exam:-> oliguriaShould this be performed at the bedside?->YesFINAL REPORT CLINICAL INDICATION: Oliguria Comparison: 07/16/2017 The patientis rotated to the right in the left costophrenic sulcus is excluded. The cardiomediastinal contours are grossly stable. Central pulmonary vascular congestion and bilateral parenchymal opacities are similar within variation of acquisition technique. There is no pneumothorax. A right IJ CVC remains in place. Signed: Madi Gloria MDReport Verified Date/Time: 07/17/2017 04:01:10 Reading Location: [address] Reading Room SODIUM, RANDOM [id number] 19:25:00 Test Item Value Reference Range Comments SODIUM URINE (BEAKER) (test vams=244) < meq/L Reference Range: No NormalsCREATININE, RANDOM [id number] 19:14:00 Test Item Value Reference Range Comments CREATININE URINE (BEAKER) (test dexr=163) 131.4 mg/dL Reference Range: No NormalsPROTEIN, RANDOM [id number] 19:14:00 Test Item Value Reference Range Comments PROTEIN, URINE (BEAKER) (test mohn=9609) 23 mg/dL 0-14 OSMOLALITY, [id number] 19:00:00 Test Item Value Reference Range Comments OSMOLALITY URINE (BEAKER) (test gmcn=748) 346 mOsm/kg 40-1400 RAD, CHEST, 1 VIEW, NON [id number] 16:22:00Reason for exam:->central line placementShould this be performed at the bedside?->YesFINAL REPORT TECHNIQUE: Frontal chest radiograph dated 07/16/2017. CLINICAL HISTORY: Central line placement COMPARISON STUDY: Chest radiograph performed earlier the same day. IMPRESSION:Right-sided [place] catheter tip projects over the affected region of superior vena cava/right atrial junction. There is streaky atelectasis in the left lung base. No focal consolidation. No pleural effusion or pneumothorax. Cardiomediastinal silhouette is normal in size. No pulmonary edema.Midline sternotomy wires are intact and well aligned. No fracture. Bones are osteopenic. Signed: Rita Rodriguez MDReport Verified Date/Time: 07/16/2017 16:22:02 Reading Location: [facility] Radiology Reading Room RAD, CHEST, 1 VIEW, NON [id number] 09:32:00Reason for exam:->cxfShould this be performed at the bedside?->YesFINAL REPORT CLINICAL HISTORY: cxf TECHNIQUE: 1 view of the chest. COMPARISON: None IMPRESSION: Pulmonary vascular congestion is noted with diffuse bilateral interstitial opacities and left lung atelectasis. There is blunting of the left costophrenic angle. The cardiomediastinal silhouette is magnified by technique with sternotomy wires. Signed: Partha Lovell MDReport Verified Date/Time: 09:32:51 Reading Location: [facility] Radiology Reading Room B-TYPE NATRIURETIC FACTOR (BNP)2017-07-16 02:38:00 Test Item Value Reference Range Comments B-TYPE NATRIURETIC PEPTIDE (BEAKER) (test 251 pg/mL 0-100 cwxm=888) BASIC METABOLIC [id number] 02:32:00 Test Item Value Reference Range Comments SODIUM (BEAKER) (test 142 meq/L 136-145 bcdx=878) POTASSIUM (BEAKER) (test 4.0 meq/L 3.5-5.1 Specimen slightly epxi=733) hemolyzed CHLORIDE (BEAKER) (test 106 meq/L 98-107 iukk=276) CO2 (BEAKER) (test 23 meq/L 22-29 noge=382) BLOOD UREA NITROGEN 26 mg/dL 7-21 (BEAKER) (test tdcj=117) CREATININE (BEAKER) (test 1.41 mg/dL 0.57-1.25 Specimen slightly orhz=753) hemolyzed GLUCOSE RANDOM (BEAKER) 152 mg/dL 70-105 (test mzjw=103) CALCIUM (BEAKER) (test 8.8 mg/dL 8.4-10.2 ftkw=607) EGFR (BEAKER) (test 48 mL/min/1.73 sq m ESTIMATED GFR IS NOT cgck=0226) ACCURATE CREATININE CLEARANCE IN PREDICTING GLOMERULAR FILTRATION RATE. ESTIMATED GFR IS NOT APPLICABLE FOR DIALYSIS PATIENTS. Specimen slightly ictericLACTIC ACID, VENOUS, WHOLE [id number] 02:28:00 Test Item Value Reference Range Comments LACTATE BLOOD VENOUS (2) 2.1 mmol/L 0.5-2.2 Specimen slightly hemolyzed (BEAKER) (test axoa=[id number]) Effective 07/04/2015: Units/Reference Range ChangeNew: 0.5-2.2 mmol/L Previous: 5 -20 mg/dLCBC (HEMOGRAM ONLY)2017-07-16 02:02:00 Test Item Value Reference Range Comments WHITE BLOOD CELL COUNT (BEAKER) (test ktsr=406) 13.3 K/ L 3.5-10.5 RED BLOOD CELL COUNT (BEAKER) (test hqjn=572) 2.79 M/ L 4.63-6.08 HEMOGLOBIN (BEAKER) (test rwhn=646) 9.5 GM/DL 13.7-17.5 HEMATOCRIT (BEAKER) (test wjgn=418) 29.4 % 40.1-51.0 MEAN CORPUSCULAR VOLUME (BEAKER) (test fulx=735) 105.4 fL 79.0-92.2 MEAN CORPUSCULAR HEMOGLOBIN (BEAKER) (test 34.1 pg 25.7-32.2 psys=776) MEAN CORPUSCULAR HEMOGLOBIN CONC (BEAKER) (test 32.3 GM/DL 32.3-36.5 wmvj=481) RED CELL DISTRIBUTION WIDTH (BEAKER) (test 13.7 % 11.6-14.4 oiaj=282) PLATELET COUNT (BEAKER) (test ozfy=776) 138 K/CU MM 150-450 MEAN PLATELET VOLUME (BEAKER) (test qirr=538) 11.2 fL 9.4-12.4 NUCLEATED RED BLOOD CELLS (BEAKER) (test 0 /100 WBC 0-0 okdu=231) HEMOGLOBIN AND [id number] 19:53:00 Test Item Value Reference Range Comments HEMOGLOBIN (BEAKER) (test kjtu=265) 9.4 GM/DL 13.7-17.5 HEMATOCRIT (BEAKER) (test lzve=388) 29.0 % 40.1-51.0 B-TYPE NATRIURETIC FACTOR (BNP)2017-07-15 16:30:00 Test Item Value Reference Range Comments B-TYPE NATRIURETIC PEPTIDE (BEAKER) (test 155 pg/mL 0-100 mxqa=160) [id number] 16:23:00 Test Item Value Reference Range Comments MAGNESIUM (BEAKER) (test 2.0 mg/dL 1.6-2.6 Specimen slightly hemolyzed hjad=818) BASIC METABOLIC [id number] 16:23:00 Test Item Value Reference Range Comments SODIUM (BEAKER) (test 138 meq/L 136-145 hzvh=076) POTASSIUM (BEAKER) (test 3.9 meq/L 3.5-5.1 Specimen slightly nkjt=574) hemolyzed CHLORIDE (BEAKER) (test 103 meq/L 98-107 lfot=010) CO2 (BEAKER) (test 26 meq/L 22-29 ijse=581) BLOOD UREA NITROGEN 21 mg/dL 7-21 (BEAKER) (test frai=556) CREATININE (BEAKER) (test 1.00 mg/dL 0.57-1.25 Specimen slightly yhhw=806) hemolyzed GLUCOSE RANDOM (BEAKER) 145 mg/dL 70-105 (test nira=764) CALCIUM (BEAKER) (test 8.9 mg/dL 8.4-10.2 reke=463) EGFR (BEAKER) (test 71 mL/min/1.73 sq m ESTIMATED GFR IS NOT mpjm=4545) ACCURATE CREATININE CLEARANCE IN PREDICTING GLOMERULAR FILTRATION RATE. ESTIMATED GFR IS NOT APPLICABLE FOR DIALYSIS PATIENTS. Specimen slightly ictericLACTIC ACID, VENOUS, WHOLE [id number] 16:19:00 Test Item Value Reference Range Comments LACTATE BLOOD VENOUS (2) 1.7 mmol/L 0.5-2.2 Specimen slightly hemolyzed (BEAKER) (test hfxw=6580) Effective 07/04/2015: Units/Reference Range ChangeNew: 0.5-2.2 mmol/L Previous: 5 -20 mg/dLSpecimen slightly ictericCBC (HEMOGRAM ONLY)2017-07-15 16:09:00 Test Item Value Reference Range Comments WHITE BLOOD CELL COUNT (BEAKER) (test phae=043) 10.6 K/ L 3.5-10.5 RED BLOOD CELL COUNT (BEAKER) (test bcvs=179) 2.85 M/ L 4.63-6.08 HEMOGLOBIN (BEAKER) (test vlvw=977) 9.7 GM/DL 13.7-17.5 HEMATOCRIT (BEAKER) (test dfgc=627) 29.5 % 40.1-51.0 MEAN CORPUSCULAR VOLUME (BEAKER) (test czji=095) 103.5 fL 79.0-92.2 MEAN CORPUSCULAR HEMOGLOBIN (BEAKER) (test 34.0 pg 25.7-32.2 aern=700) MEAN CORPUSCULAR HEMOGLOBIN CONC (BEAKER) (test 32.9 GM/DL 32.3-36.5 uxjo=162) RED CELL DISTRIBUTION WIDTH (BEAKER) (test 13.4 % 11.6-14.4 dwpg=414) PLATELET COUNT (BEAKER) (test nifv=197) 127 K/CU MM 150-450 MEAN PLATELET VOLUME (BEAKER) (test ybzf=978) 11.5 fL 9.4-12.4 NUCLEATED RED BLOOD CELLS (BEAKER) (test 0 /100 WBC 0-0 kkll=339) [id number] 12:47:00 Test Item Value Reference Range Comments ACTIVATED CLOTTING TIME 224 sec TESTED AT [address] (BEAKER) (test qtup=639) [place] [address] [id number] 12:47:00 Test Item Value Reference Range Comments ACTIVATED CLOTTING TIME 257 sec TESTED AT [place] [address] [facility] (BEAK[facility] (test eslk=994) [place] [address] [id number] 12:47:00 Test Item Value Reference Range Comments ACTIVATED CLOTTING TIME 219 sec TESTED AT [place] [address] [facility] (BE[facility]) (test ipun=607) [place] [id number]
[2018-03-01 16:52] LABS: Absolute Lymphocytes (CBC) 0.6 K/uL (0.7-4.9); Absolute Monocytes 0.4 K/uL (0.1-1.3); Absolute Neutrophil 2.6 K/uL (1.8-8.0); Basophils % 0.7 % (0-1.3); Eosinophils % 0.9 % (0-4.4); Hematocrit 24.8 % (39.6-49.0); MPV 8.5 fL (7.6-11.3); Monocytes % 11.4 % (3.3-12.3); RBC Red Blood Cell Count 2.45 M/uL (4.33-5.43)
[2018-03-01 16:54] LABS: Protime INR 1.55
[2018-03-01 17:10] LABS: ALT/SGPT 18 U/L (12-78); AST/SGOT 20 U/L (15-37); Albumin 3.6 g/dL (3.4-5.0); Alkaline Phosphatase 147 U/L (45-117); BUN Blood Urea Nitrogen 45 mg/dL (7-18); Bicarbonate 28 mmol/L (21-32); Bilirubin Direct 0.4 mg/dL (0-0.2); Bilirubin Total 1.2 mg/dL (0.2-1.0); Glucose Level 200 mg/dL (74-106); Magnesium 2.6 mg/dL (1.8-2.4); NT PRO-BNP 1795 pg/mL (<450); Potassium 3.5 mmol/L (3.5-5.1); Protein, Total 7.1 g/dL (6.4-8.2); Sodium Level 144 mmol/L (136-145); Troponin (Emerg Dept Use Only) < 0.02 ng/mL (0.0-0.045)
--- NOTE | 2018-03-01 17:20 | RAD REPORT ---
EXAM DESCRIPTION: RAD - Chest Single View - 03/01/2018 4:32 pm CLINICAL HISTORY: Weakness, shortness of breath, history of WA, atrial fibrillation and CHF COMPARISON: September 17, June 17 and March 25 TECHNIQUE: AP portable chest image was obtained 1620 hours . FINDINGS: No peripheral mass or consolidation. Interstitial markings are prominent similar to compar alyse. Sternotomy wires are in place. Cardiomegaly is present. Upper lobe vasculature is mildly promin ent but stable. No measurable pleural effusion and no pneumothorax. No acute bony abnormality seen. N o acute aortic findings suspected. IMPRESSION: Cardiomegaly, mild vascular engorgement and prominent interstitial markings all similar to the prior study. Findings are similar to prior imaging. A mild chronic failure pattern is possible for this patient.
--- NOTE | 2018-03-01 18:58 | RAD REPORT ---
EXAM DESCRIPTION: CT - Abdomen Pelvis W Contrast - 03/01/2018 6:32 pm CLINICAL HISTORY: Weakness, abdominal pain, GI bleed COMPARISON: CT May 2017, June 2012 TECHNIQUE: Biphasic, helical CT imaging of the abdomen and pelvis was performed following 100 ml non -ionic IV contrast. No oral contrast administered. All CT scans are performed using dose optimization technique as appropriate and may include automated exposure control or mA/KV adjustment according to patient size. FINDINGS: Interstitial fibrotic changes are present. No mass or consolidations seen. No pleural effu brooke. Patient has prominent cardiomegaly primarily biatrial enlargement. No pericardial thickening or effusion. Liver is prominent in size. There is a slight nodularity to the capsule contour. No suspic ious liver lesion. Small low-density mass in the anterolateral right lobe is probably a cyst. This is stable from prior imaging. Liver shows capsular nodularity. No suspicious liver lesion. Small 13 millimeter low-density mass ant erolateral right lobe unchanged back to 2012. Spleen is upper normal. No pancreatic or peripancreatic abnormality seen. Cholecystectomy clips are present. No biliary tree abnormal dilatation. Symmetric renal function is seen with no hydronephrosis or suspicious renal mass. No pyelonephritis o r acute parenchymal process. No bladder abnormalities. No adrenal abnormalities. No gastric dilatation, mass or wall thickening. No dilated large or small bowel. Moderate stool volum e in the colon. There is no appendicitis. Diverticulosis is present. Rectosigmoid anastomotic site sh ows no acute finding. No free air, free fluid or inflammatory stranding. No mass or bulky lymphadenopathy. No omental thic kening. Disc and bony degenerative changes are present. Dense vascular calcifications are seen. IMPRESSION: No obstruction, free air or surgically emergent finding. Liver nodular capsule aright a may indicate cirrhosis or diffuse hepatic parenchymal disease. No susp icious liver lesion. Cardiomegaly without pericardial thickening or effusion. Cardiomegaly is primarily biatrial enlargeme nt. Nonacute findings detailed in the body of the report.
--- NOTE | 2018-03-01 19:24 | ER ---
Nurse's Notes [facility] Name: Chris Mcwilliams Age: 87 yrs Sex: Male : 1930 Arrival Date: 03/01/2018 Time: 15:28 Bed 18 Private MD: Diagnosis: Anemia;Gastrointestinal hemorrhage, unspecified Presentation: 03/01 15:33 Presenting complaint: EMS states: GEN WEAKNESS, BLACK STOOL. Transition of care: bp patient was not received from another setting of care. Onset of symptoms is unknown. Risk Assessment: Do you want to hurt yourself or someone else? Patient reports no desire to harm self or others. Initial Sepsis Screen: Does the patient meet any 2 criteria? No. Patient's initial sepsis screen is negative. Does the patient have a suspected source of infection? No. Patient's initial sepsis screen is negative. Care prior to arrival: IV initiated. 20 GA, Glucose check: 165. 15:33 Method Of Arrival: EMS: [facility] bp 15:33 Acuity: BOB 2 bp Triage Assessment: 15:59 General: Appears in no apparent distress. comfortable, Behavior is cooperative, bp appropriate for age, anxious, Smells of GIB. Pain: Denies pain. EENT: No deficits noted. Neuro: Level of Consciousness is awake, alert, obeys commands, Oriented to person, place, time, situation, Appropriate for age. Cardiovascular: No deficits noted. Respiratory: Airway is patent Respiratory effort is even, unlabored, Respiratory pattern is regular, symmetrical. GI: Reports bloody stool. : No signs and/or symptoms were reported regarding the genitourinary system. Derm: No deficits noted. Musculoskeletal: Circulation, motion, and sensation intact. Range of motion: intact in all extremities. Historical: - Allergies: 15:59 NKDA; bp - Home Meds: 15:59 atorvastatin 40 mg oral tab 1 tab once daily [Active]; docusate sodium 100 mg oral cap bp 1 cap once daily [Active]; Eliquis 2.5 mg oral tab 1 tab 2 times per day [Active]; folic acid 800 mcg Oral tab 1 tab once daily [Active]; Lasix 80 mg Oral tab 1 tab 2 times per day [Active]; metoprolol tartrate 25 mg Oral tab 1 tab 2 times per day [Active]; Plavix 75 mg Oral tab 1 tab once daily [Active]; Protonix 40 mg Oral TbEC 1 tab once daily [Active]; tamsulosin 0.4 mg oral cp24 1 cap once daily [Active]; - PMHx: 15:59 Hypertension; Myocardial infarction; Atrial Fib; CHF; bowel obstruction; bp Hyperlipidemia; Diverticulitis; Diabetes - IDDM; - Immunization history:: Adult Immunizations unknown. - Social history:: Smoking status: Patient/guardian denies using tobacco. - Ebola Screening: : Patient negative for fever greater than or equal to 101.5 degrees Fahrenheit, and additional compatible Ebola Virus Disease symptoms Patient denies exposure to infectious person Patient denies travel to an Ebola-affected area in the 21 days before illness onset No symptoms or risks identified at this time. Screenin:04 Abuse screen: Denies threats or abuse. Denies injuries from another. Nutritional bp screening: No deficits noted. Tuberculosis screening: No symptoms or risk factors identified. Fall Risk None identified. Assessment: 16:03 General: SEE TRIAGE NOTE. bp 17:34 Reassessment: CT PENDING, ALL OTHER STUDIES IN PROCESS, VS STABLE ON MONITOR. bp 18:38 Reassessment: PT RETURNED FROM CT. RESULTS PENDING. bp 19:12 Reassessment: Patient appears in no apparent distress at this time. Patient and/or [facility] family updated on plan of care and expected duration. Pain level reassessed. A\T\O X 2 noted, provider notified, no new orders at this time. 20:23 Reassessment: Patient appears in no apparent distress at this time. No changes from jd3 previously documented assessment. Patient and/or family updated on plan of care and expected duration. Pain level reassessed. awaiting bed placement and number to call for report. 21:25 Reassessment: Patient appears in no apparent distress at this time. No changes from jd3 previously documented assessment. Patient and/or family updated on plan of care and expected duration. Pain level reassessed. nurse on phone giving report to [facility]. assisted pt with urinal use. 21:38 Reassessment: report given to Keisha SMITH at [facility]. jd3 23:22 Reassessment: Patient appears in no apparent distress at this time. No changes from [facility] previously documented assessment. Patient and/or family updated on plan of care and expected duration. Pain level reassessed. Vital Signs: 16:02 Weight 74.84 kg; bp 16:02 BP 143 / 69; Pulse 77; Resp 14; Temp 98.9; Pulse Ox 100% ; bp 17:34 BP 138 / 48; Pulse 79; Resp 14; Pulse Ox 100% ; bp 18:37 BP 135 / 67; Pulse 72; Resp 14; Pulse Ox 95% ; bp 19:12 BP 146 / 86; Pulse 75; Resp 15 S; Pulse Ox 96% on R/A; jd3 20:24 BP 138 / 63; Pulse 74; Resp 16 S; Pulse Ox 97% on R/A; jd3 21:37 BP 164 / 87; Pulse 75; Resp 16 S; Pulse Ox 98% on R/A; jd3 23:22 BP 138 / 83; Pulse 91; Resp 16 S; Pulse Ox 100% on R/A; jd3 ED Course: 15:28 Patient arrived in ED. bp 15:33 Bertrand Covington, RN is Primary Nurse. bp 15:36 Triage completed. bp 15:39 Jordy Aragon MD is Attending Physician. kdr 16:02 Arm band placed on. bp 16:03 Maintain EMS IV. Dressing intact. Good blood return noted. Site clean \T\ dry. Gauge \T\ bp site: 20 GAUGE R AC. 16:04 Patient has correct armband on for positive identification. Bed in low position. Call bp light in reach. Side rails up X2. Adult w/ patient. 16:16 Radiology exam delayed due to lab results not completed at this time. (BUN/Creatinine). sj 16:33 XRAY Chest (1 view) In Process Unspecified. EDMS 16:35 Radiology exam delayed due to lab results not completed at this time. (BUN/Creatinine). nj 16:43 Radiology exam delayed due to lab results not completed at this time. (BUN/Creatinine). nj 16:57 Radiology exam delayed due to lab results not completed at this time. (BUN/Creatinine). nj 18:31 Urine collected: clean catch specimen, clear, EKG done, by ED staff, reviewed by Jordy Aragon MD. 18:33 CT Abd/Pelvis - W/Contrast In Process Unspecified. EDMS 19:23 Cherelle Castro MD is Hospitalizing Provider. kdr 20:52 Antonino Valentine PA is PHCP. jr8 21:38 No provider procedures requiring assistance completed. Patient transferred, IV remains jd3 in place. Administered Medications: No medications were administered Point of Care Testing: Blood Glucose: 16:02 Blood Glucose: 95 mg/dL; bp Ranges: Outcome: 19:24 Decision to Hospitalize by Provider. kdr 21:03 ER care complete, transfer ordered by . jr8 23:22 Transferred by ground EMS to [facility], Transfer form completed. jd3 X-rays sent w/ patient. Note: report given to [facility] crew. 23:22 Condition: stable 23:22 Instructed on the need for transfer. 23:25 Patient left the ED. jd3 Signatures: Dispatcher [employer] EDMS Jordy Aragon MD MD kdr Jones, Susan sj Roszak, Josh, PA PA jr8 Karri Clark Maria Simone Mishra RN RN jd3 Bertrand Covington RN RN bp Corrections: (The following items were deleted from the chart) 19:57 19:12 BP 146 / 45; Pulse 75bpm; Resp 15bpm; Spontaneous; Pulse Ox 96% RA; jd3 jd3 20:24 20:23 Reassessment: Patient appears in no apparent distress at this time. No changes jd3 from previously documented assessment. Patient and/or family updated on plan of care and expected duration. Pain level reassessed. jd3 20:25 20:23 Reassessment: Patient appears in no apparent distress at this time. No changes jd3 from previously documented assessment. Patient and/or family updated on plan of care and expected duration. Pain level reassessed. awaiting bed placement and number to call for report. jd3 21:06 19:12 Reassessment: Patient appears in no apparent distress at this time. No changes jd3 from previously documented assessment. Patient and/or family updated on plan of care and expected duration. Pain level reassessed. jd3 21: 20:23 Reassessment: Patient appears in no apparent distress at this time. No changes jd3 from previously documented assessment. Patient and/or family updated on plan of care and expected duration. Pain level reassessed. awaiting bed placement and number to call for report. jd3 21: 21:25 Reassessment: Patient appears in no apparent distress at this time. No changes jd3 from previously documented assessment. Patient and/or family updated on plan of care and expected duration. Pain level reassessed. jd3 21:39 21:25 Reassessment: Patient appears in no apparent distress at this time. No changes jd3 from previously documented assessment. Patient and/or family updated on plan of care and expected duration. Pain level reassessed. nurse on phone giving report to [facility]. assisted pt with urinal use. jd3
--- NOTE | 2018-03-01 19:24 | EDPHYS ---
Physician Documentation [facility] Name: Chris Mcwilliams Age: 87 yrs Sex: Male : 1930 Arrival Date: 03/01/2018 Time: 15:28 Bed 18 Private MD: ED Physician Jordy Aragon HPI: 03/01 20:58 This 87 yrs old Male presents to ER via EMS with complaints of General jr8 Weakness. 20:58 Patient brought in by who noticed that patient had been generally weak more so jr8 then normal. Noticed at home dark tarry like stools. History of cardiac disease with heart surgery in past. Currently on NOAC therapy . Severity of symptoms: At their worst the symptoms were moderate in the emergency department the symptoms are unchanged. It is unknown whether or not the patient has had similar symptoms in the past. The patient has not recently seen a physician. Historical: - Allergies: 15:59 NKDA; bp - Home Meds: 15:59 atorvastatin 40 mg oral tab 1 tab once daily [Active]; docusate sodium 100 mg oral cap bp 1 cap once daily [Active]; Eliquis 2.5 mg oral tab 1 tab 2 times per day [Active]; folic acid 800 mcg Oral tab 1 tab once daily [Active]; Lasix 80 mg Oral tab 1 tab 2 times per day [Active]; metoprolol tartrate 25 mg Oral tab 1 tab 2 times per day [Active]; Plavix 75 mg Oral tab 1 tab once daily [Active]; Protonix 40 mg Oral TbEC 1 tab once daily [Active]; tamsulosin 0.4 mg oral cp24 1 cap once daily [Active]; - PMHx: 15:59 Hypertension; Myocardial infarction; Atrial Fib; CHF; bowel obstruction; bp Hyperlipidemia; Diverticulitis; Diabetes - IDDM; - Immunization history:: Adult Immunizations unknown. - Social history:: Smoking status: Patient/guardian denies using tobacco. - Ebola Screening: : Patient negative for fever greater than or equal to 101.5 degrees Fahrenheit, and additional compatible Ebola Virus Disease symptoms Patient denies exposure to infectious person Patient denies travel to an Ebola-affected area in the 21 days before illness onset No symptoms or risks identified at this time. ROS: 20:58 Eyes: Negative for injury, pain, redness, and discharge, ENT: Negative for injury, jr8 pain, and discharge, Neck: Negative for injury, pain, and swelling, Cardiovascular: Negative for chest pain, palpitations, and edema, Respiratory: Negative for shortness of breath, cough, wheezing, and pleuritic chest pain, Back: Negative for injury and pain, Skin: Negative for injury, rash, and discoloration, Neuro: Negative for headache, weakness, numbness, tingling, and seizure. 20:58 Abdomen/GI: Positive for abdominal pain, nausea, black/tarry stool, Negative for vomiting, diarrhea, abdominal distension, hematemesis, rectal pain, rectal bleeding, bowel incontinence, flatulence. Exam: 20:58 Eyes: Pupils equal round and reactive to light, extra-ocular motions intact. Lids and jr8 lashes normal. Conjunctiva and sclera are non-icteric and not injected. Cornea within normal limits. Periorbital areas with no swelling, redness, or edema. ENT: Nares patent. No nasal discharge, no septal abnormalities noted. Tympanic membranes are normal and external auditory canals are clear. Oropharynx with no redness, swelling, or masses, exudates, or evidence of obstruction, uvula midline. Mucous membranes moist. Neck: Trachea midline, no thyromegaly or masses palpated, and no cervical lymphadenopathy. Supple, full range of motion without nuchal rigidity, or vertebral point tenderness. No Meningismus. Cardiovascular: Regular rate and rhythm with a normal S1 and S2. No gallops, murmurs, or rubs. Normal PMI, no JVD. No pulse deficits. Respiratory: Lungs have equal breath sounds bilaterally, clear to auscultation and percussion. No rales, rhonchi or wheezes noted. No increased work of breathing, no retractions or nasal flaring. Back: No spinal tenderness. No costovertebral tenderness. Full range of motion. Skin: Warm, dry with normal turgor. Normal color with no rashes, no lesions, and no evidence of cellulitis. MS/ Extremity: Pulses equal, no cyanosis. Neurovascular intact. Full, normal range of motion. Neuro: Awake and alert, GCS 15, oriented to person, place, time, and situation. Cranial nerves II-XII grossly intact. Motor strength 5/5 in all extremities. Sensory grossly intact. 20:58 Abdomen/GI: Inspection: abdomen appears normal, Bowel sounds: active, all quadrants, Palpation: soft, in all quadrants, mild abdominal tenderness, in the right mid abdomen, mass, is not appreciated, rebound tenderness, is not appreciated, voluntary guarding, is not appreciated, involuntary guarding, is not appreciated, no appreciated organomegaly, Rectal exam: rectal tone normal, Stool: guaiac positive, black, mass, is not appreciated, swelling, is not appreciated, tenderness, is not appreciated, the exam is chaperoned by the nurse, Indicators: McBurney's point is not tender, Michele's sign is negative, Rovsing's sign is negative, Liver: tenderness, is not appreciated. Vital Signs: 16:02 Weight 74.84 kg; bp 16:02 BP 143 / 69; Pulse 77; Resp 14; Temp 98.9; Pulse Ox 100% ; bp 17:34 BP 138 / 48; Pulse 79; Resp 14; Pulse Ox 100% ; bp 18:37 BP 135 / 67; Pulse 72; Resp 14; Pulse Ox 95% ; bp 19:12 BP 146 / 86; Pulse 75; Resp 15 S; Pulse Ox 96% on R/A; jd3 20:24 BP 138 / 63; Pulse 74; Resp 16 S; Pulse Ox 97% on R/A; jd3 21:37 BP 164 / 87; Pulse 75; Resp 16 S; Pulse Ox 98% on R/A; jd3 23:22 BP 138 / 83; Pulse 91; Resp 16 S; Pulse Ox 100% on R/A; jd3 MDM: 19:24 Patient medically screened. kdr 20:52 Data reviewed: vital signs, nurses notes, lab test result(s), EKG, radiologic studies, jr8 CT scan, plain films, and as a result, I will admit patient. Data interpreted: Pulse oximetry: on room air is 97 %. Interpretation: normal. Counseling: I had a detailed discussion with the patient and/or guardian regarding: the historical points, exam findings, and any diagnostic results supporting the discharge/admit diagnosis, lab results, radiology results, the need to transfer to another facility, [facility] does not immediately have the required specialist. 20:58 ED course: Consulted Dr. Peng MALLOY and Dr. Simpson at [facility]. Accepted patient for jr8 further evaluation of GI bleed . 03/01 16:12 Order name: Basic Metabolic Panel; Complete Time: 18:37 kdr 03/01 16:12 Order name: CBC with Diff; Complete Time: 18:37 kdr 03/01 16:12 Order name: LFT's; Complete Time: 18:37 kdr 03/01 16:12 Order name: Magnesium; Complete Time: 18:37 kdr 03/01 16:12 Order name: NT PRO-BNP; Complete Time: 18:37 kdr 03/01 16:12 Order name: PT-INR; Complete Time: 18:37 kdr 03/01 16:12 Order name: Troponin (emerg Dept Use Only); Complete Time: 18:37 kdr 03/01 16:12 Order name: XRAY Chest (1 view); Complete Time: 18:37 kdr 03/01 16:12 Order name: EKG; Complete Time: 16:13 kdr 03/01 16:12 Order name: Cardiac monitoring; Complete Time: 16:42 kdr 03/01 16:12 Order name: EKG - Nurse/Tech; Complete Time: 16:42 kdr 03/01 16:12 Order name: IV Saline Lock; Complete Time: 16:42 kdr 03/01 16:12 Order name: CT Abd/Pelvis - W/Contrast; Complete Time: 19:18 kdr 03/01 18:37 Order name: Urine Dipstick--Ancillary (enter results); Complete Time: 21:35 iw 03/01 16:12 Order name: Labs collected and sent; Complete Time: 16:42 kdr 03/01 16:12 Order name: O2 Per Protocol; Complete Time: 16:42 [facility] 03/01 16:12 Order name: O2 Sat Monitoring; Complete Time: 16:42 kdr Administered Medications: No medications were administered Point of Care Testing: Blood Glucose: 16:02 Blood Glucose: 95 mg/dL; bp Ranges: Critical Glucose Levels:Adult <50 mg/dl or >400 mg/dl <40 mg/dl or >180 mg/dl Disposition: 03/02 09:22 Co-signature as Attending Physician, Jordy Aragon MD I agree with the assessment and kdr plan of care. Disposition: 03/01/18 21:03 Transfer ordered to [facility]. Diagnosis are Anemia, Gastrointestinal hemorrhage, unspecified. - Reason for transfer: Higher level of care. - Accepting physician is Dr. Simpson. - Condition is Stable. - Problem is new. - Symptoms are unchanged. Signatures: Dispatcher [employer] EDMS Stephanie Tracy RN RN Jordy Aragon MD MD kdr Roszak, Josh, PA PA jr8 Simone Duval RN RN jBertrand aBss RN RN bp Corrections: (The following items were deleted from the chart) 03/01 19:50 19:24 Hospitalization Ordered by Cherelle Castro MD for Observation. Preliminary diagnosis is Weakness; Anemia, unspecified; Altered mental status, unspecified. Bed requested for Telemetry/MedSurg (observation). Status is Observation. Condition is Fair. Problem is new. Symptoms are unchanged. UTI on Admission? No. kdr 20:08 19:50 03/01/2018 19:24 Hospitalization Ordered by Cherelle Castro MD for Observation. jr8 Preliminary diagnosis is Weakness; Anemia, unspecified; Altered mental status, unspecified. Bed requested for Telemetry/MedSurg (observation). Status is Observation. Condition is Fair. Problem is new. Symptoms are unchanged. UTI on Admission? No. mw 23:25 21:03 03/01/2018 21:03 Transfer ordered to [facility]. Diagnosis is jd3 Anemia; Gastrointestinal hemorrhage, unspecified. Reason for transfer: Higher level of care. Accepting physician is Dr. Simpson. Condition is Stable. Problem is new. Symptoms are unchanged. jr8
[2018-03-01 21:32] LABS: Urine Blood TRACE (NEG); Urine Glucose NEGATIVE (NEG); Urine Protein TRACE (NEG); Urine Specific Gravity 1.015 (1.005-1.030)
[2018-03-02 00:56] VITALS: TEMP 98.9
[2018-03-02 01:03] VITALS: BP 138/83; O2SAT 100
--- NOTE | 2018-03-02 08:47 | EKG ---
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
== END 2018-03-01 23:25 | disposition short-term general hospital (02) ==
LOC: ER 15:23 → UNDOADMOB 20:03 → ERHOLD 20:03 → ER 23:25
DX: D64.9 Anemia, unspecified (principal); I10 Essential (primary) hypertension; I48.91 Unspecified atrial fibrillation; I25.2 Old myocardial infarction; I50.9 Heart failure, unspecified; E11.9 Type 2 diabetes mellitus without complications; Z79.01 Long term (current) use of anticoagulants
CPT/HCPCS: 36415; 71045; 74177; 80048; 80076; 81003; 83735; 83880; 84484; 85025; 85610; 93005; 99285; Q9967

== ENCOUNTER 2018-08-22 08:13 | Emergency (ER) | payer MEDICARE, BC ==
--- OUTSIDE RECORDS SUMMARY | 2018-08-22 08:19 | XMS REPORT | Clinical Summary ---
:1930 Author Organization [facility] Address [address] [place] [id number] Care Team Providers Name Role Phone Tha Garcia MD Primary Care Provider Allergies Active Allergy Reactions Severity Noted Date Comments Levofloxacin Rash Low 06/16/2017 Metformin Rash Low 06/16/2017 Medications Medication Sig Dispensed Refills Start Date End Date Status docusate sodium Take 1 capsule 60 capsule 1 08/06/2017 Active (COLACE) 100 MG (100 mg total) capsule by mouth 2 (two) times daily. torsemide (DEMADEX) Take 1 tablet 30 tablet 3 03/13/2018 Active 20 MG tablet (20 mg total) 0 by mouth daily. metoprolol Take 1 tablet 60 tablet 3 03/13/2018 Active (LOPRESSOR) 25 MG (25 mg total) 0 tablet by mouth 2 (two) times daily. spironolactone Take 1 tablet 30 tablet 3 03/14/2018 Active (ALDACTONE) 25 MG (25 mg total) 0 tablet by mouth daily. warfarin (COUMADIN) Take 1 tablet 30 tablet 0 03/13/2018 Active 2.5 MG tablet (2.5 mg total) 0 by mouth every evening. lactulose Take 30 mLs 1000 mL 1 03/13/2018 Active (CHRONULAC) 20 (20 g total) gram/30 mL solution by mouth 3 (three) times daily as needed (constipation, confusion). pantoprazole Take 1 tablet 30 tablet 3 03/13/2018 Active (PROTONIX) 40 MG (40 mg total) tablet by mouth daily. tamsulosin (FLOMAX) Take 1 capsule 30 capsule 3 03/13/2018 Active 0.4 mg Cap 24 hr (0.4 mg total) capsule by mouth daily. apixaban (ELIQUIS) Take 1 tablet 60 tablet 1 08/06/2017 Discontinued 2.5 mg Tab tablet (2.5 mg total) 9 by mouth 2 (two) times daily. clopidogrel (PLAVIX) Take 1 tablet 30 tablet 1 08/07/2017 Discontinued 75 mg tablet (75 mg total) 9 by mouth daily. cyproheptadine Take 1 tablet 90 tablet 1 08/06/2017 Discontinued (PERIACTIN) 4 mg (4 mg total) 9 tablet by mouth 3 (three) times daily. hydrocortisone 0.5 % Apply 30 g 0 08/06/2017 Discontinued cream topically 2 9 (two) times daily. mirtazapine (REMERON Take 1 tablet 30 tablet 1 08/06/2017 JUAN ALBERTO-TAB) 30 MG (30 mg total) 8 disintegrating by mouth tablet nightly for 30 days. pantoprazole Take 1 tablet 30 tablet 1 08/07/2017 Discontinued (PROTONIX) 40 MG (40 mg total) 9 tablet by mouth daily. atorvastatin Take 1 tablet 30 tablet 1 08/06/2017 (LIPITOR) 40 MG (40 mg total) 9 tablet by mouth nightly. tamsulosin (FLOMAX) Take 1 capsule 30 capsule 1 08/07/2017 Discontinued 0.4 mg Cp24 24 hr (0.4 mg total) 9 capsule by mouth daily. torsemide (DEMADEX) Take 1 tablet 30 tablet 1 08/07/2017 Discontinued 20 MG tablet (20 mg total) 9 by mouth daily. mINOCYCLine Take 1 capsule 20 capsule 0 09/12/2017 (MINOCIN,DYNACIN) (100 mg total) 8 100 MG capsule by mouth every 12 (twelve) hours for 10 days. Active Problems Problem Noted Date Acute hypoxemic respiratory failure 03/04/2018 Acute encephalopathy 03/04/2018 Acute encephalopathy 03/03/2018 Generalized weakness 03/02/2018 Dementia 03/02/2018 GI bleed 03/02/2018 Aortic stenosis 09/10/2017 Coronary artery disease due to calcified coronary lesion 07/16/2017 Coronary artery disease 07/15/2017 CHF (congestive heart failure) S/P CABG (coronary artery bypass graft) Atrial fibrillation Hyperlipidemia GERARDO (acute kidney injury) Overview: creatinine 1.0 to 2.58 Anemia GIB (gastrointestinal bleeding) Thrombocytopenia Pulmonary hypertension Advanced age Frailty Encounters Date Type Specialty Care Team Description 03/06/2018 Anesthesia Event Gastroenterology Leila So CRNA 03/06/2018 Surgery Gastroenterology Brokc Khoury UPPER ENDOSCOPY MD [place] 03/03/2018 Outside Orders Lab JoseBandar duran Anemia, unspecified type (Primary Dx) 03/03/2018 Orders Only General Internal Medicine 03/02/2018 Anesthesia Event Gastroenterology Rickey Sales MD 03/02/2018 Surgery Gastroenterology Brock Khoury UPPER ENDOSCOPY MD [place] 03/02/2018 [facility] General Internal Tatiana, Marium Anemia, unspecified type (Primary Dx); - Encounter Medicine Yennifer Dementia without behavioral disturbance, unspecified dementia type; 03/13/2018 MD Liv Generalized weakness; Hal, Gastrointestinal hemorrhage with melena; MD Oli Acute encephalopathy; Jose Perez GERARDO (acute kidney injury) (HCC); MD Marlene S/P CABG (coronary artery bypass graft); Mainor Melgoza Thrombocytopenia (HCC); MD Mary Other cirrhosis of liver (HCC); Acute hepatic encephalopathy; Systolic congestive heart failure, unspecified HF chronicity (HCC); Pulmonary hypertension (HCC); Gastrointestinal hemorrhage, unspecified gastrointestinal hemorrhage type; Chronic atrial fibrillation (HCC); Hypernatremia; Coronary artery disease due to calcified coronary lesion; Anticoagulated 09/10/2017 Anesthesia Event Dorian Rich, DO 09/10/2017 Surgery [facility], TAVR / XIN [facility] - IP Kris Solano MD PROC ONLY 09/10/2017 [facility] Cardiology [facility], - Encounter Kris Solano MD 09/12/2017 09/10/2017 Orders Only General Internal Medicine 08/24/2017 [facility], Encounter Kris Solano MD after 08/21/2017 Family History Relation Name Status Comments Father [...] Vital Sign Reading Time Taken Blood Pressure 104/49 03/13/2018 11:25 AM [facility] Pulse 72 03/13/2018 11:25 AM [facility] Temperature 36.4 C (97.5 F) 03/13/2018 11:25 AM [facility] Respiratory Rate 19 03/13/2018 11:25 AM [facility] Oxygen Saturation 95% 03/13/2018 11:25 AM [facility] Inhaled Oxygen Concentration 100% 03/05/2018 9:26 AM [facility] Weight 71.3 kg (157 lb 3.2 oz) 03/11/2018 5:00 AM [facility] Height 170.2 cm (5' 7") 09/10/2017 6:56 AM CDT Body Mass Index 24.62 03/11/2018 5:00 AM [facility] Plan of Treatment Not on file Implants Implanted Type Area Ore Feeder Device Shelf Model / Identifier Expiration Serial / Date Lot [id number] Vascular Closure Device Cardiovascular Groin [facility] 05/30 [id number] / Implanted: Qty: 1 on 07/15/2017 by Kris Avila MD / [id number] Synergy Stents-Coronary Coronary [place] 04/01/2018 [id number] / Implanted: Qty: 1 on 07/15/2017 by Kris Avila MD SCIENTIFIC / [id number] Synergy Stents-Coronary Coronary [place] 05/19/2018 [id number] / Implanted: Qty: 1 on 07/15/2017 by Kris Avila MD [employer] / [id number] Synergy Stents-Coronary Coronary [place] 12/24/2017 [id number] / Implanted: Qty: 1 on 07/15/2017 by Kris Avila MD [employer] / [id number] Synergy Stents-Coronary Coronary [place] 02/18/2018 [id number] / Implanted: Qty: 1 on 07/15/2017 by Kris Avila MD [employer] / [id number] Valve Heart Deepa 3 26mm [id number] - [id number] Valves N/A: Aorta SIFUENTES 05/20/2019 [id number] / Implanted: Qty: 1 on 09/10/2017 by Kris Avila MD [facility] [id number] / Procedures Procedure Name Priority Date/Time Associated Comments Diagnosis RHYTHM STRIP - SCAN 06/04/2018 5:40 AM CDT RHYTHM STRIP - SCAN 06/03/2018 3:03 PM CDT RHYTHM STRIP - SCAN 04/02/2018 9:01 AM [facility] POCT-GLUCOSE METER Routine 03/13/2018 7:24 Results for this AM [facility] procedure are in the results section. CBC W/PLT COUNT & AUTO Routine 03/13/2018 5:30 Results for this DIFFERENTIAL AM [facility] procedure are in the results section. PROTHROMBIN TIME/INR Routine 03/13/2018 5:30 Results for this AM [facility] procedure are in the results section. CBC W/PLT COUNT & AUTO Routine 03/13/2018 5:30 Results for this DIFFERENTIAL AM [facility] procedure are in the results section. BASIC METABOLIC PANEL Routine 03/13/2018 5:30 Results for this (7) AM [facility] procedure are in the results section. POCT-GLUCOSE METER Routine 03/12/2018 9:24 Results for this PM [facility] procedure are in the results section. POCT-GLUCOSE METER Routine 03/12/2018 5:45 Results for this PM [facility] procedure are in the results section. POCT-GLUCOSE METER Routine 03/12/2018 10:53 Results for this AM [facility] procedure are in the results section. (CELLAVISION MANUAL Routine 03/12/2018 5:38 Results for this DIFF) AM [facility] procedure are in the results section. CBC W/PLT COUNT & AUTO Routine 03/12/2018 5:38 Results for this DIFFERENTIAL AM [facility] procedure are in the results section. PROTHROMBIN TIME/INR Routine 03/12/2018 5:38 Results for this AM [facility] procedure are in the results section. CBC W/PLT COUNT & AUTO Routine 03/12/2018 5:38 Results for this DIFFERENTIAL AM [facility] procedure are in the results section. BASIC METABOLIC PANEL Routine 03/12/2018 5:38 Results for this (7) AM [facility] procedure are in the results section. POCT-GLUCOSE METER Routine 03/11/2018 8:47 Results for this PM [facility] procedure are in the results section. POCT-GLUCOSE METER Routine 03/11/2018 5:02 Results for this PM [facility] procedure are in the results section. POCT-GLUCOSE METER Routine 03/11/2018 11:26 Results for this AM [facility] procedure are in the results section. POCT-GLUCOSE METER Routine 03/11/2018 7:35 Results for this AM [facility] procedure are in the results section. (CELLAVISION MANUAL Routine 03/11/2018 4:44 Results for this DIFF) AM [facility] procedure are in the results section. CBC W/PLT COUNT & AUTO Routine 03/11/2018 4:44 Results for this DIFFERENTIAL AM [facility] procedure are in the results section. PROTHROMBIN TIME/INR Routine 03/11/2018 4:44 Results for this AM [facility] procedure are in the results section. CBC W/PLT COUNT & AUTO Routine 03/11/2018 4:44 Results for this DIFFERENTIAL AM [facility] procedure are in the results section. BASIC METABOLIC PANEL Routine 03/11/2018 4:44 Results for this (7) AM [facility] procedure are in the results section. POCT-GLUCOSE METER Routine 03/10/2018 8:29 Results for this PM [facility] procedure are in the results section. POCT-GLUCOSE METER Routine 03/10/2018 5:26 Results for this PM [facility] procedure are in the results section. POCT-GLUCOSE METER Routine 03/10/2018 12:02 Results for this PM [facility] procedure are in the results section. POCT-GLUCOSE METER Routine 03/10/2018 7:29 Results for this AM [facility] procedure are in the results section. (CELLAVISION MANUAL Routine 03/10/2018 5:34 Results for this DIFF) AM [facility] procedure are in the results section. CBC W/PLT COUNT & AUTO Routine 03/10/2018 5:34 Results for this DIFFERENTIAL AM [facility] procedure are in the results section. PROTHROMBIN TIME/INR Routine 03/10/2018 5:34 Results for this AM [facility] procedure are in the results section. CBC W/PLT COUNT & AUTO Routine 03/10/2018 5:34 Results for this DIFFERENTIAL AM [facility] procedure are in the results section. BASIC METABOLIC PANEL Routine 03/10/2018 5:34 Results for this (7) AM [facility] procedure are in the results section. B-TYPE NATRIURETIC Routine 03/10/2018 5:34 Results for this FACTOR (BNP) AM [facility] procedure are in the results section. POCT-GLUCOSE METER Routine 03/09/2018 9:34 Results for this PM [facility] procedure are in the results section. POCT-GLUCOSE METER Routine 03/09/2018 6:07 Results for this PM [facility] procedure are in the results section. TRANSFUSION SERVICE 03/09/2018 5:52 REPORT - SCAN PM [facility] BASIC METABOLIC PANEL Routine 03/09/2018 5:25 Results for this (7) AM [facility] procedure are in the results section. MAGNESIUM Routine 03/09/2018 5:25 Results for this AM [facility] procedure are in the results section. CBC (HEMOGRAM ONLY) Routine 03/09/2018 5:25 Results for this AM [facility] procedure are in the results section. POCT-GLUCOSE METER Routine 03/09/2018 5:21 Results for this AM [facility] procedure are in the results section. PREPARE LEUKO-REDUCED Routine 2018 11:54 Results for this RBC PM [facility] procedure are in the results section. POCT-GLUCOSE METER Routine 2018 10:31 Results for this PM [facility] procedure are in the results section. TRANSFUSION SERVICE 2018 5:50 REPORT - SCAN PM [facility] POCT-GLUCOSE METER Routine 2018 5:06 Results for this PM [facility] procedure are in the results section. HEMOGLOBIN AND Routine 2018 4:57 Results for this HEMATOCRIT PM [facility] procedure are in the results section. POCT-GLUCOSE METER Routine 2018 11:32 Results for this AM [facility] procedure are in the results section. POCT-GLUCOSE METER Routine 2018 5:45 Results for this AM [facility] procedure are in the results section. CBC W/PLT COUNT & AUTO STAT 2018 3:14 Results for this DIFFERENTIAL AM [facility] procedure are in the results section. PHOSPHORUS Routine 2018 3:14 Results for this AM [facility] procedure are in the results section. MAGNESIUM Routine 2018 3:14 Results for this AM [facility] procedure are in the results section. BASIC METABOLIC PANEL Routine 2018 3:14 Results for this (7) AM [facility] procedure are in the results section. CBC W/PLT COUNT & AUTO STAT 2018 3:14 Results for this DIFFERENTIAL AM [facility] procedure are in the results section. HEPATIC FUNCTION PANEL Routine 2018 3:14 Results for this AM [facility] procedure are in the results section. HEMOGLOBIN AND Routine 2018 3:14 Results for this HEMATOCRIT AM [facility] procedure are in the results section. POCT-GLUCOSE METER Routine 2018 1:02 Results for this AM [facility] procedure are in the results section. POCT-GLUCOSE METER Routine 03/07/2018 3:57 Results for this PM [facility] procedure are in the results section. HEMOGLOBIN AND Routine 03/07/2018 3:56 Results for this HEMATOCRIT PM [facility] procedure are in the results section. POCT-GLUCOSE METER Routine 03/07/2018 11:34 Results for this AM [facility] procedure are in the results section. XR ABDOMEN 1 VIEW Routine 03/07/2018 9:39 Results for this AM [facility] procedure are in the results section. HEPATIC FUNCTION PANEL STAT 03/07/2018 8:45 Results for this AM [facility] procedure are in the results section. POCT-GLUCOSE METER Routine 03/07/2018 5:14 Results for this AM [facility] procedure are in the results section. CBC W/PLT COUNT & AUTO STAT 03/07/2018 5:09 Results for this DIFFERENTIAL AM [facility] procedure are in the results section. PHOSPHORUS Routine 03/07/2018 5:09 Results for this AM [facility] procedure are in the results section. MAGNESIUM Routine 03/07/2018 5:09 Results for this AM [facility] procedure are in the results section. BASIC METABOLIC PANEL Routine 03/07/2018 5:09 Results for this (7) AM [facility] procedure are in the results section. CBC W/PLT COUNT & AUTO STAT 03/07/2018 5:09 Results for this DIFFERENTIAL AM [facility] procedure are in the results section. HEMOGLOBIN AND Routine 03/07/2018 5:09 Results for this HEMATOCRIT AM [facility] procedure are in the results section. TRANSFUSE LEUKO-REDUCED Routine 03/07/2018 5:07 RED BLOOD CELLS AM [facility] HEMOGLOBIN AND Routine 03/06/2018 11:51 Results for this HEMATOCRIT PM [facility] procedure are in the results section. POCT-GLUCOSE METER Routine 03/06/2018 10:34 Results for this PM [facility] procedure are in the results section. TRANSFUSION SERVICE 03/06/2018 5:51 REPORT - SCAN PM [facility] POCT-GLUCOSE METER Routine 03/06/2018 5:34 Results for this PM [facility] procedure are in the results section. ECHOCARDIOGRAM REPORT - 03/06/2018 3:20 SCAN PM [facility] REPORT OF PROCEDURE - 03/06/2018 2:47 ENDOSCOPY URL PM [facility]ER[facility] UPPER ENDOSCOPY 03/06/2018 2:00 Melena PM [facility] Special Needs egd w/ anes HEMOGLOBIN AND HEMATOCRIT Routine 03/06/2018 12:41 PM [facility] POCT-GLUCOSE METER Routine 03/06/2018 9:49 AM [facility] XR CHEST 1 VIEW Routine 03/06/2018 6:55 AM [facility] Results for this PORTABLE/BEDSIDE procedure are in the results section. POCT-GLUCOSE METER Routine 03/06/2018 4:44 AM [facility] CBC W/PLT COUNT & AUTO STAT 03/06/2018 4:40 AM [facility] Results for this DIFFERENTIAL procedure are in the results section. PHOSPHORUS Routine 03/06/2018 4:40 AM [facility] MAGNESIUM Routine 03/06/2018 4:40 AM [facility] BASIC METABOLIC PANEL (7) Routine 03/06/2018 4:40 AM [facility] CBC W/PLT COUNT & AUTO STAT 03/06/2018 4:40 AM [facility] Results for this DIFFERENTIAL procedure are in the results section. POCT-GLUCOSE METER Routine 03/05/2018 11:10 PM [facility] HEMOGLOBIN AND HEMATOCRIT Routine 03/05/2018 11:06 PM [facility] POCT-GLUCOSE METER Routine 03/05/2018 9:40 PM [facility] 2D ECHO W/ DOPPLER Routine 03/05/2018 6:28 PM [facility] Results for this (CW/PW/COLOR) procedure are in the results section. TRANSFUSION SERVICE REPORT - 03/05/2018 5:52 PM [facility] SCAN TYPE AND SCREEN, AUTOMATED Routine 03/05/2018 5:40 PM [facility] HEMOGLOBIN AND HEMATOCRIT Routine 03/05/2018 5:40 PM [facility] POCT-GLUCOSE METER Routine 03/05/2018 5:20 PM [facility] HEMOGLOBIN AND HEMATOCRIT Routine 03/05/2018 12:33 PM [facility] OCCULT BLOOD, STOOL Routine 03/05/2018 12:32 PM [facility] POCT-GLUCOSE METER Routine 03/05/2018 11:46 AM [facility] HEPATIC FUNCTION PANEL Routine 03/05/2018 11:38 AM [facility] BASIC METABOLIC PANEL (7) STAT 03/05/2018 11:38 AM [facility] VANCOMYCIN LEVEL, RANDOM Routine 03/05/2018 11:38 AM [facility] SPUTUM CULTURE + GRAM STAIN Routine 03/05/2018 8:02 AM [facility] AMMONIA Routine 03/05/2018 7:28 AM [facility] B-TYPE NATRIURETIC FACTOR Routine 03/05/2018 7:28 AM [facility] Results for this (BNP) procedure are in the results section. XR CHEST 1 VIEW Routine 03/05/2018 5:07 AM [facility] Results for this PORTABLE/BEDSIDE procedure are in the results section. CBC W/PLT COUNT & AUTO STAT 03/05/2018 4:01 AM [facility] Results for this DIFFERENTIAL procedure are in the results section. POCT-GLUCOSE METER Routine 03/05/2018 4:01 AM [facility] BLOOD GAS, ARTERIAL Routine 03/05/2018 4:01 AM [facility] PHOSPHORUS Routine 03/05/2018 4:01 AM [facility] MAGNESIUM Routine 03/05/2018 4:01 AM [facility] BASIC METABOLIC PANEL (7) Routine 03/05/2018 4:01 AM [facility] CBC W/PLT COUNT & AUTO STAT 03/05/2018 4:01 AM [facility] Results for this DIFFERENTIAL procedure are in the results section. PREPARE LEUKO-REDUCED RBC Routine 03/04/2018 11:54 PM [facility]ER[facility] POCT-GLUCOSE METER Routine 03/04/2018 9:39 PM [facility] TRANSFUSION SERVICE REPORT - 03/04/2018 6:02 PM [facility] SCAN POCT-GLUCOSE METER Routine 03/04/2018 5:[address] [facility] [address] ABDOMEN/PELVIS WITH IV STAT 03/04/2018 4:07 PM [facility] Results for this CONTRAST procedure are in the results section. BASIC METABOLIC PANEL (7) STAT 03/04/2018 11:54 AM [facility] HEMOGLOBIN AND HEMATOCRIT STAT 03/04/2018 11:54 AM [facility] POCT-GLUCOSE METER Routine 03/04/2018 11:01 AM [facility] LACTIC ACID, ARTERIAL Routine 03/04/2018 9:50 AM [facility] AMMONIA Routine 03/04/2018 7:45 AM [facility] XR CHEST 1 VIEW Routine 03/04/2018 4:32 AM [facility] Results for this PORTABLE/BEDSIDE procedure are in the results section. CBC W/PLT COUNT & AUTO STAT 03/04/2018 3:48 AM [facility] Results for this DIFFERENTIAL procedure are in the results section. CBC W/PLT COUNT & AUTO STAT 03/04/2018 3:48 AM [facility] Results for this DIFFERENTIAL procedure are in the results section. MAGNESIUM Routine 03/04/2018 3:48 AM [facility] BASIC METABOLIC PANEL (7) Routine 03/04/2018 3:48 AM [facility] CARBOHYDRATE ANTIGEN 19-9 Routine 03/04/2018 3:48 AM [facility] Results for this (CA 19-9) procedure are in the results section. LIVER-KIDNEY MICROSOME AB Routine 03/04/2018 3:48 AM [facility] CERULOPLASMIN Routine 03/04/2018 3:48 AM [facility] ANTI-MITOCHONDRIAL AB, Routine 03/04/2018 3:48 AM [facility] REFLEX TO TITER ACTIN (SMOOTH MUSCLE) Routine 03/04/2018 3:48 AM [facility] Results for this ANTIBODY, IGG procedure are in the results section. BLOOD GAS, ARTERIAL Routine 03/04/2018 3:48 AM [facility] POCT-GLUCOSE METER Routine 03/03/2018 10:09 PM [facility] TROPONIN I STAT 03/03/2018 8:56 PM [facility] POCT-GLUCOSE METER Routine 03/03/2018 7:20 PM [facility] TRANSFUSION SERVICE REPORT - 03/03/2018 6:00 PM [facility] SCAN XR CHEST 1 VIEW STAT 03/03/2018 5:22 PM [facility] Results for this PORTABLE/BEDSIDE procedure are in the results section. 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 PROCALCITONIN STAT 03/03/2018 3:58 Results for PM [facility] this procedure are in the results section. CARCINOEMBRYONIC Routine 03/03/2018 3:58 Results for ANTIGEN (CEA) PM [facility] this procedure are in the results section. ALPHA FETOPROTEIN Routine 03/03/2018 3:58 Results for (AFP), TUMOR MARKER PM [facility] this procedure are in the results section. HEPATITIS C ANTIBODY Routine 03/03/2018 3:58 Results for PM [facility] this procedure are in the results section. HEPATITIS B SURFACE Routine 03/03/2018 3:58 Results for ANTIGEN PM [facility] this procedure are in the results section. HEPATITIS B SURFACE Routine 03/03/2018 3:58 Results for ANTIBODY PM [facility] this procedure are in the results section. HEPATITIS B CORE Routine 03/03/2018 3:58 Results for ANTIBODY, TOTAL PM [facility] this procedure are in the results section. HEPATITIS A ANTIBODY, Routine 03/03/2018 3:58 Results for IGG PM [facility] this procedure are in the results section. IRON, TIBC, % SAT. Routine 03/03/2018 3:58 Results for (WITHOUT FERRITIN) PM [facility] this procedure are in the results section. FERRITIN Routine 03/03/2018 3:58 Results for PM [facility] this procedure are in the results section. ANTI-NUCLEAR ANTIBODY Routine 03/03/2018 3:58 Results for (STEPHY) PM [facility] this procedure are in the results section. BASIC METABOLIC PANEL STAT 03/03/2018 3:58 Results for (7) PM [facility] this procedure are in the results section. FIBRINOGEN STAT 03/03/2018 3:58 Results for PM [facility] this procedure are in the results section. HEPATIC FUNCTION PANEL STAT 03/03/2018 3:58 Results for PM [facility] this procedure are in the results section. PROTHROMBIN TIME/INR STAT 03/03/2018 3:58 Results for PM [facility] this procedure are in the results section. BLOOD GAS, ARTERIAL STAT 03/03/2018 3:58 Results for PM [facility] this procedure are in the results section. TROPONIN I STAT 03/03/2018 3:58 Results for PM [facility] this procedure are in the results section. HEMOGLOBIN AND Routine 03/03/2018 3:58 Results for HEMATOCRIT PM [facility] this procedure are in the results section. MRSA SCREEN Routine 03/03/2018 3:49 Anemia, unspecified Results for PM [facility] type this procedure are in the results section. PREPARE LEUKO-REDUCED Routine 03/03/2018 2:31 Results for RBC PM BACTERIOLOGIST [facility]IL this procedure are in the results section. POCT-LACTIC ACID, Routine 03/03/2018 2:04 Results for ARTERIAL PM BACTERIOLOGIST SOIL this procedure are in the results section. POCT-HEMOGLOBIN Routine 03/03/2018 1:56 Results for PM BACTERIOLOGIST SOIL this procedure are in the results section. POCT-HEMATOCRIT Routine 03/03/2018 1:56 Results for PM BACTERIOLOGIST SOIL this procedure are in the results section. POCT-CALCIUM IONIZED Routine 03/03/2018 1:56 Results for PM BACTERIOLOGIST SOIL this procedure are in the results section. POCT-GLUCOSE Routine 03/03/2018 1:56 Results for PM BACTERIOLOGIST SOIL this procedure are in the results section. POCT-POTASSIUM Routine 03/03/2018 1:56 Results for PM BACTERIOLOGIST SOIL this procedure are in the results section. POCT-SODIUM Routine 03/03/2018 1:56 Results for PM BACTERIOLOGIST [facility]IL this procedure are in the results section. POCT-BLOOD GASES, Routine 03/03/2018 1:56 Results for ARTERIAL PM BACTERIOLOGIST SOIL this procedure are in the results section. POCT-GLUCOSE METER Routine 03/03/2018 12:50 Results for PM BACTERIOLOGIST SOIL this procedure are in the results section. EEG AWAKE AND DROWSY STAT 03/03/2018 12:37 Results for PM BACTERIOLOGIST SOIL this procedure are in the results section. STOOL PATH CHARGE Routine 03/03/2018 10:23 Results for AM BACTERIOLOGIST SOIL this procedure are in the results section. SHIGA TOXIN SCREEN Routine 03/03/2018 10:23 Results for AM BACTERIOLOGIST SOIL this procedure are in the results section. STOOL CULTURE + SHIGA Routine 03/03/2018 10:23 Results for TOXIN AM BACTERIOLOGIST SOIL this procedure are in the results section. FECAL LEUKOCYTES Routine 03/03/2018 10:23 Results for AM BACTERIOLOGIST SOIL this procedure are in the results section. BLOOD CULTURE STAT 03/03/2018 10:22 Results for AM BACTERIOLOGIST SOIL this procedure are in the results section. AMMONIA Routine 03/03/2018 10:20 Results for AM BACTERIOLOGIST SOIL this procedure are in the results section. URINALYSIS W/ REFLEX Routine 03/03/2018 10:16 Results for URINE CULTURE AM BACTERIOLOGIST SOIL this procedure are in the results section. ECG 12-LEAD Routine 03/03/2018 10:02 Results for AM BACTERIOLOGIST SOIL this procedure are in the results section. TROPONIN I STAT 03/03/2018 10:01 Results for AM BACTERIOLOGIST SOIL this procedure are in the results section. TSH/FREE T4 IF SAAD 03/03/2018 10:01 Results for INDICATED AM BACTERIOLOGIST SOIL this procedure are in the results section. VITAMIN B12 AND FOLATE Routine 03/03/2018 10:01 Results for AM BACTERIOLOGIST SOIL this procedure are in the results section. PROCALCITONIN STAT 03/03/2018 10:01 Results for AM BACTERIOLOGIST SOIL this procedure are in the results section. SODIUM STAT 03/03/2018 10:01 Results for AM BACTERIOLOGIST SOIL this procedure are in the results section. BLOOD CULTURE STAT 03/03/2018 10:01 Results for AM BACTERIOLOGIST SOIL this procedure are in the results section. TRANSFUSE LEUKO-REDUCED Routine 03/03/2018 9:19 RED BLOOD CELLS AM BACTERIOLOGIST SOIL C. DIFFICILE GDH TOXIN Routine 03/03/2018 6:11 Results for AM BACTERIOLOGIST SOIL this procedure are in the results section. HEMOGLOBIN A1C SAAD 03/03/2018 6:05 Results for AM BACTERIOLOGIST SOIL this procedure are in the results section. B-TYPE NATRIURETIC Routine 03/03/2018 6:05 Results for FACTOR (BNP) AM BACTERIOLOGIST SOIL this procedure are in the results section. PHOSPHORUS Routine 03/03/2018 6:05 Results for AM BACTERIOLOGIST SOIL this procedure are in the results section. CBC (HEMOGRAM ONLY) Routine 03/03/2018 6:05 Results for AM BACTERIOLOGIST SOIL this procedure are in the results section. MAGNESIUM Routine 03/03/2018 6:05 Results for AM BACTERIOLOGIST SOIL this procedure are in the results section. BASIC METABOLIC PANEL Routine 03/03/2018 6:05 Results for (7) AM BACTERIOLOGIST SOIL this procedure are in the results section. POCT-GLUCOSE METER Routine 03/03/2018 5:12 Results for AM BACTERIOLOGIST SOIL this procedure are in the results section. MR BRAIN WITHOUT IV STAT 03/03/2018 2:21 Results for CONTRAST AM BACTERIOLOGIST SOIL this procedure are in the results section. MR MRA NECK WITHOUT IV STAT 03/03/2018 2:21 Results for CONTRAST AM BACTERIOLOGIST SOIL this procedure are in the results section. MR MRA HEAD WITHOUT STAT 03/03/2018 2:21 Results for CONTRAST AM BACTERIOLOGIST SOIL this procedure are in the results section. XR CHEST 1 VIEW Routine 03/03/2018 12:38 Results for PORTABLE/BEDSIDE AM BACTERIOLOGIST SOIL this procedure are in the results section. URINALYSIS MICROSCOPIC Routine 03/03/2018 12:23 Results for AM BACTERIOLOGIST SOIL this procedure are in the results section. URINALYSIS WITH Routine 03/03/2018 12:23 Results for MICROSCOPIC IF AM BACTERIOLOGIST SOIL this procedure INDICATED are in the results section. CT BRAIN/STROKE TEST STAT 03/02/2018 11:05 Results for DESIGN PM BACTERIOLOGIST SOIL this procedure are in the results section. LACTIC ACID, VENOUS STAT 03/02/2018 9:27 Results for PM BACTERIOLOGIST SOIL this procedure are in the results section. POCT-GLUCOSE METER Routine 03/02/2018 9:23 Results for PM BACTERIOLOGIST SOIL this procedure are in the results section. BASIC METABOLIC PANEL Routine 03/02/2018 5:03 Results for (7) PM BACTERIOLOGIST SOIL this procedure are in the results section. HEMOGLOBIN AND Routine 03/02/2018 5:03 Results for HEMATOCRIT PM BACTERIOLOGIST SOIL this procedure are in the results section. POCT-GLUCOSE METER Routine 03/02/2018 4:38 Results for PM BACTERIOLOGIST SOIL this procedure are in the results section. REPORT OF PROCEDURE - 03/02/2018 4:37 ENDOSCOPY URL PM BACTERIOLOGIST SOIL CT BRAIN WITHOUT IV STAT 03/02/2018 12:21 Results for CONTRAST PM BACTERIOLOGIST SOIL this procedure are in the results section. UPPER ENDOSCOPY 03/02/2018 12:01 Gastrointestinal PM BACTERIOLOGIST SOIL hemorrhage, unspecified gastrointestinal hemorrhage type TYPE AND SCREEN, Routine 03/02/2018 11:54 Results for AUTOMATED AM BACTERIOLOGIST SOIL this procedure are in the results section. HEMOGLOBIN AND STAT 03/02/2018 11:37 Results for HEMATOCRIT AM BACTERIOLOGIST SOIL this procedure are in the results section. POCT-GLUCOSE METER Routine 03/02/2018 9:13 Results for AM BACTERIOLOGIST SOIL this procedure are in the results section. OCCULT BLOOD, STOOL Routine 03/02/2018 6:55 Results for AM BACTERIOLOGIST SOIL this procedure are in the results section. CBC (HEMOGRAM ONLY) Routine 03/02/2018 4:13 Results for AM BACTERIOLOGIST SOIL this procedure are in the results section. MAGNESIUM Routine 03/02/2018 4:13 Results for AM BACTERIOLOGIST SOIL this procedure are in the results section. BASIC METABOLIC PANEL Routine 03/02/2018 4:13 Results for (7) AM BACTERIOLOGIST SOIL this procedure are in the results section. VASCULAR DIAGRAM -SCAN 01/14/2018 12:13 PM BACTERIOLOGIST SOIL RHYTHM STRIP - SCAN 01/13/2018 2:31 PM BACTERIOLOGIST [facility]IL CARDIAC CATH REPORT - 09/15/2017 5:44 SCAN PM CDT REPORT OF PROCEDURE - 09/15/2017 11:10 ENDOSCOPY SCAN AM CDT RHYTHM STRIP - SCAN 09/15/2017 11:10 AM CDT ECHOCARDIOGRAM REPORT - 09/12/2017 10:50 SCAN AM CDT CBC W/PLT COUNT & AUTO Routine 09/12/2017 5:35 Results for DIFFERENTIAL AM CDT this procedure are in the results section. BASIC METABOLIC PANEL Routine 09/12/2017 5:35 Results for (7) AM CDT this procedure are in the results section. CBC W/PLT COUNT & AUTO Routine 09/12/2017 5:35 Results for DIFFERENTIAL AM CDT this procedure are in the results section. TRANSFUSION SERVICE 09/11/2017 5:51 REPORT - SCAN PM CDT ECHOCARDIOGRAM REPORT - 09/11/2017 2:21 SCAN PM CDT 2D ECHO W/ DOPPLER Routine 09/11/2017 11:04 Results for (CW/PW/COLOR) AM CDT this procedure are in the results section. CBC W/PLT COUNT & AUTO Routine 09/11/2017 3:37 Results for DIFFERENTIAL AM CDT this procedure are in the results section. CBC W/PLT COUNT & AUTO Routine 09/11/2017 3:37 Results for DIFFERENTIAL AM CDT this procedure are in the results section. BASIC METABOLIC PANEL Routine 09/11/2017 3:37 Results for (7) AM CDT this procedure are in the results section. XR CHEST 1 VIEW Routine 09/11/2017 3:20 Results for PORTABLE/BEDSIDE AM CDT this procedure are in the results section. PREPARE LEUKO-REDUCED STAT 09/10/2017 5:15 Results for RBC PM CDT this procedure are in the results section. POCT-ACT Routine 09/10/2017 4:31 Results for PM CDT this procedure are in the results section. ECG 12-LEAD Routine 09/10/2017 4:22 PM CDT Procedure Note - Interface, External Ris In - 09/10/2017 5:26 PM CDT Ventricular Rate 89 BPM Atrial Rate 101 BPM QRS Duration 156 ms Q-T Interval 422 ms QTC Calculation(Bazett) 513 ms R [place] 266 degrees T [place] 31 degrees Atrial fibrillation Right bundle branch [...] PANEL (7) Routine 08/24/2017 1:59 PM CDT after 08/21/2017 Results RHYTHM STRIP - SCAN (06/04/2018 5:40 AM CDT)Only the most recent of5 resultswithin the time period is included. Narrative Performed At POC-Glucose meter (03/13/2018 7:24 AM BACTERIOLOGIST SOIL)Only the most recent of42 resultswithin the time period is included. POC-Glucose Meter 137 (H)Comment: TESTED AT 70 - 110 mg/dL [facility] [id number] [facility] [id number] Specimen Blood Performing Organization Address City/State/Zipcode Phone Number [facility] [address], [place] [id number] [phone] CENTER CBC with platelet count + automated diff (03/13/2018 5:30 AM BACTERIOLOGIST SOIL)Only the most recent of12 resultswithin the time period is included. WBC 3.4 (L) 3.5 - 10.5 K/L [facility] RBC 2.25 (L) 4.63 - 6.08 M/L [facility] Hemoglobin 7.4 (L) 13.7 - 17.5 GM/DL [facility] Hematocrit 23.1 (L) 40.1 - 51.0 % [facility] MCV 102.7 (H) 79.0 - 92.2 fL [facility] MCH 32.9 (H) 25.7 - 32.2 pg [facility] MCHC 32.0 (L) 32.3 - 36.5 GM/DL [facility] RDW 13.9 11.6 - 14.4 % [facility] Platelets 119 (L) 150 - 450 K/CU MM [facility] MPV 10.4 9.4 - 12.4 fL [facility] nRBC 0 0 - 0 /100 WBC [facility] % Neutros 59 % [facility] % Lymphs 21 % [facility] % Monos 14 % [facility] % Eos 5 % [facility] % Baso 1 % [facility] # Neutros 2.03 1.78 - 5.38 K/L [facility] # Lymphs 0.73 (L) 1.32 - 3.57 K/L [facility] # Monos 0.47 0.30 - 0.82 K/L [facility] # Eos 0.17 0.04 - 0.54 K/L [facility] # Baso 0.02 0.01 - 0.08 K/L [facility] Immature 0 0 - 1 % [facility] Granulocytes-[facility] MEDICAL TELL Specimen Blood Performing Organization Address City/[facility] Centercode Phone Number [address] [address] [phone] TELL Daily Prothrombin time/INR while on warfarin (03/13/2018 5:30 AM BACTERIOLOGIST SOIL)Only the most recent of6 resultswithin the time period is included. Protime 19.3 (H) 11.7 - 14.7 seconds [facility] INR 1.6 <=5.9 [facility] Specimen Blood Narrative Performed At RECOMMENDED COUMADIN/WARFARIN INR THERAPY [facility] RANGES STANDARD DOSE: 2.0 - 3.0 Includes: PROPHYLAXIS for venous thrombosis, systemic embolization; TREATMENT for venous thrombosis and/or pulmonary embolus. HIGH RISK: Target INR is 2.5-3.5 for patients with mechanical heart valves. While on warfarin. Performing Organization Address City/[facility] Centerconv Phone Number [address] [address] TELL Basic metabolic panel (03/13/2018 5:30 AM BACTERIOLOGIST SOIL)Only the most recent of19 resultswithin the time period is included. Sodium 137 136 - 145 meq/L [facility] Potassium 3.7 3.5 - 5.1 meq/L [facility] Chloride 104 98 - 107 meq/L [facility] CO2 28 22 - 29 meq/L [facility] BUN 26 (H) 7 - 21 mg/dL [facility] Creatinine 1.26 (H) 0.57 - 1.25 mg/dL [facility] Glucose 100 70 - 105 mg/dL [facility] Calcium 8.6 8.4 - 10.2 mg/dL [facility] EGFR 54Comment: ESTIMATED GFR IS mL/min/1.73 sq m [facility] NOT ACCURATE CREATININE MEDICAL CENTER CLEARANCE IN PREDICTING GLOMERULAR FILTRATION RATE. ESTIMATED GFR IS NOT APPLICABLE FOR DIALYSIS PATIENTS. Specimen Blood Performing Organization Address City/State/Zipcode Phone Number [facility] [address] [place] [address] CENTER Manual Differential (03/12/2018 5:38 AM BACTERIOLOGIST SOIL)Only the most recent of3 resultswithin the time period is included. % Neutros 60 % [facility] % Lymphs 21 % [facility] % Monos 9 % [facility] % Eos 5 % [facility] % Baso 1 % [facility] % Bands 2 0 - 10 % [facility] % Atypical Lymphs 2 (H) 0 - 0 % [facility] # Neutros 2.16 1.78 - 5.38 K/ul [facility] # Lymphs 0.76 (L) 1.32 - 3.57 K/ul [facility] # Monos 0.32 0.30 - 0.82 K/uL [facility] # Eos 0.18 0.04 - 0.54 K/uL [facility] # Baso 0.04 0.01 - 0.08 K/uL [facility] # Bands 0.07 0.00 - 0.80 K/uL [facility] # Atypical Lymphs 0.07 (H) 0.00 - 0.00 K/uL [facility] Total Counted 100 [facility] WBC Morphology Normal [facility] Platelet Morphology Normal [facility] Poikilocytes 2+ moderate [facility] Artifact Present [facility] Platelet Conc Decreased [facility] Specimen Blood Narrative Performed At Received comment: [facility] User comments: Slide comments: Performing Organization Address City/State/Zipcode Phone Number [facility] [address] [place] [address] [phone] CENTER B-type Natriuretic Factor (BNP) (03/10/2018 5:34 AM BACTERIOLOGIST SOIL)Only the most recent of4 resultswithin the time period is included. BNP 132 (H) 0 - 100 pg/mL [facility] Specimen Blood Performing Organization Address City/State/Zipcode Phone Number [facility] [address] [place] [address] [phone] TELL TRANSFUSION SERVICE REPORT - SCAN (03/09/2018 5:52 PM BACTERIOLOGIST SOIL)Only the most recent of8 resultswithin the time period is included. Narrative Performed At CBC (Hemogram only) (03/09/2018 5:25 AM BACTERIOLOGIST SOIL)Only the most recent of3 resultswithin the time period is included. WBC 4.3 3.5 - 10.5 K/L [facility] RBC 2.36 (L) 4.63 - 6.08 M/L [facility] Hemoglobin 7.9 (L) 13.7 - 17.5 GM/DL [facility] Hematocrit 24.9 (L) 40.1 - 51.0 % [facility] MCV 105.5 (H) 79.0 - 92.2 fL [facility] MCH 33.5 (H) 25.7 - 32.2 pg [facility] MCHC 31.7 (L) 32.3 - 36.5 GM/DL [facility] RDW 14.3 11.6 - 14.4 % [facility] Platelets 113 (L) 150 - 450 K/CU MM [facility] MPV 11.4 9.4 - 12.4 fL [facility] nRBC 0 0 - 0 /100 WBC [facility] Specimen Blood Performing Organization Address City/[facility] Centercode Phone Number [address] [address] CENTER Magnesium (03/09/2018 5:25 AM BACTERIOLOGIST SOIL)Only the most recent of8 resultswithin the time period is included. Magnesium 2.2 1.6 - 2.6 mg/dL [facility] Specimen Blood Performing Organization Address [facility] Centercode Phone Number [address] [address] CENTER Prepare Leuko-Red RBC (2018 11:54 PM BACTERIOLOGIST SOIL)Only the most recent of4 resultswithin the time period is included. CROSSMATCH COMPATIBLE SAFETRACE TX Unit ABO O Pos SAFETRACE TX UNIT NUMBER [id number] SAFETRACE TX Status TRANSFUSED SAFETRACE TX Blood Bank Product RED BLOOD CELLS SAFETRACE TX PRODUCT CODE [id number] SAFETRACE TX Specimen Other Performing Organization Address City/[facility] Centerconv Phone Number SAFETRACE TX Hemoglobin and hematocrit (2018 4:57 PM BACTERIOLOGIST SOIL)Only the most recent of13 resultswithin the time period is included. Hemoglobin 7.9 (L) 13.7 - 17.5 GM/DL [facility] Hematocrit 24.9 (L) 40.1 - 51.0 % [facility] Specimen Blood Performing Organization Address City/[facility]/Zipcode Phone Number [address] [address] TELL Phosphorus (2018 3:14 AM BACTERIOLOGIST SOIL)Only the most recent of5 resultswithin the time period is included. Phosphorus 2.4 2.3 - 4.7 mg/dL [facility] Specimen Blood Narrative Performed At Check Serum Phosphorus level 4 hours after IV [facility] phosphorus replacement or 8 hours after PO replacement completed. Performing Organization Address [facility] Centercode Phone Number [place] [phone] [place] [address] TELL Hepatic function panel (2018 3:14 AM BACTERIOLOGIST SOIL)Only the most recent of4 resultswithin the time period is included. Protein, Total 5.6 (L) 6.0 - 8.3 gm/dL [facility] Albumin 3.0 (L) 3.5 - 5.0 g/dL [facility] Total Bilirubin 1.7 (H) 0.2 - 1.2 mg/dL [facility] Bilirubin, Direct 0.7 (H) 0.1 - 0.5 mg/dL [facility] Alkaline Phosphatase 117 40 - 150 U/L [facility] AST 52 (H) 5 - 34 U/L [facility] ALT 30 6 - 55 U/L [facility] Specimen Blood Performing Organization Address City/[facility] [facility] Centercode Phone Number [facility] [address] [place] [address] TELL XR abdomen / KUB 1 view (03/07/2018 9:39 AM BACTERIOLOGIST SOIL)Only the most recent of2 resultswithin the time period is included. Specimen Narrative Performed At FINAL REPORT [facility] ONE VIEW ABDOMEN HISTORY: Feeding tube placement COMPARISON: 03/03/2018 FINDINGS: Single supine AP image of the abdomen was obtained. Feeding tube passes below the diaphragm, with the tip in the region of the gastric body. There is gas in several nondilated loops of large and small intestine. There are surgical clips in the abdomen bilaterally. Signed: Rehana Duval MD Report Verified Date/Time:03/07/2018 10:26:54 Reading Location: [address] Transitional Reading Room Procedure Note Interface, External Ris In - 03/07/2018 10:29 AM BACTERIOLOGIST SOIL FINAL REPORT ONE VIEW ABDOMEN HISTORY: Feeding tube placement COMPARISON: 03/03/2018 FINDINGS: Single supine AP image of the abdomen was obtained. Feeding tube passes below the diaphragm, with the tip in the region of the gastric body. There is gas in several nondilated loops of large and small intestine. There are surgical clips in the abdomen bilaterally. Signed: Rehana Duval MD Report Verified Date/Time: 03/07/2018 10:26:54 Reading Location: [address] Transitional Reading Room Performing Organization Address City/State/Zipcode Phone Number [employer] Leuko-Red RBC (03/07/2018 5:07 AM BACTERIOLOGIST SOIL)Only the most recent of2 resultswithin the time period is included.ECHOCARDIOGRAM REPORT - SCAN (2018 3:20 PM BACTERIOLOGIST SOIL) Narrative Performed At REPORT OF PROCEDURE - ENDOSCOPY URL (03/06/2018 2:47 PM BACTERIOLOGIST SOIL) Narrative Performed At XR chest 1 view portable / bedside (03/06/2018 6:55 AM BACTERIOLOGIST SOIL)Only the most recent of6 resultswithin the time period is included. Specimen Narrative Performed At FINAL REPORT [employer] RAD, CHEST, 1 VIEW, NON DEPT INDICATION: resp failure COMPARISON: Prior day's exam FINDINGS: Portable frontal view of the chest. IMPRESSION: Support Lines: Interval extubation. Otherwise unchanged support apparatus. Lungs and pleura: Decreased lung volumes with increased atelectasis in the mid lungs. Mildly increased pulmonary vascular congestion.No pleural effusion. No pneumothorax. Heart and mediastinum: Stable contours. Stable surgical changes. Additional findings: None. Signed: David Jha MD Report Verified Date/Time:03/06/2018 05:00:57 Reading Location: [address] Transitional Reading Room Procedure Note Interface, External Ris In - 03/06/2018 6:56 AM BACTERIOLOGIST SOIL FINAL REPORT RAD, CHEST, 1 VIEW, NON DEPT INDICATION: resp failure COMPARISON: Prior day's exam FINDINGS: Portable frontal view of the chest. IMPRESSION: Support Lines: Interval extubation. Otherwise unchanged support apparatus. Lungs and pleura: Decreased lung volumes with increased atelectasis in the mid lungs. Mildly increased pulmonary vascular congestion. No pleural effusion. No pneumothorax. Heart and mediastinum: Stable contours. Stable surgical changes. Additional findings: None. Signed: David Jha MD Report Verified Date/Time: 03/06/2018 05:00:57 Reading Location: [address] Transitional Reading Room Performing Organization Address City/State/Zipcode Phone Number [facility] 2D Echo W/Doppler(CW/PW/Color) (03/05/2018 6:28 PM BACTERIOLOGIST SOIL) Ejection Fraction [facility] ECHO [facility] Specimen Narrative Performed At Transthoracic Echocardiography Report (TTE) [facility] ECHO HEARTLAB [facility] Demographics Patient Name KAYLEE ARRIAGADate of Study 03/05/2017 REHANA [id number] GenderMale Visit Number [id number] Unknown [id number] Room Number 7301 Number Date of Birth2Referring Physician Margarita Ponce MD 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 Clinical History HGB 7.3 HCT 23.7 % GERARDO Anemia Atrial Fibrillation/flutter Congestive Heart Failure Coronary Artery Disease Hyperlipidemia Hypertension Myocardial Infarction Pulmonary hypertension Height: 67 inches Weight: 70.31 kg (155 lbs) BSA: 1.81 m^2 BMI: 24.28 kg/m^2 HR: 71 bpm BP: 150/47 mmHg Summary The left ventricle is chamber size (by PSLAX dimension) is normal (male - LVIDd 4.2-5.8cm) . Mild basal septal hypertrophy is present. Septal motion is abnormal, likely related to prior cardiac surgery . The other segments contract normally. Estimated LVEF by qualitative assessment is normal (>60%) . Degree of diastolic dysfunction (LAP assessment) is inconclusive due to arrhythmia . The prosthetic AoV appears well-seated with normal function by Doppler. Prosthetic AoV systolic gradients are normal . AoV dimensionless obstructive index (DOI)) is 0.59 . Prosthetic AoV regurgitaton is not demonstrated . Estimated peak systolic PA pressure is 70-75 mmHg . The estimated RA pressure by IVC dynamics 16-20mmHg . Previous Study In comparison with the prior exam on 09-11-17 there are no significant changes. Cannot compare PAP. Signature Findings Technical Quality: Technically adequate exam. Rhythm/BPIrregular rhythm during the exam. Left Ventricle The left ventricle is chamber size (by PSLAX di mension) is normal (male - LVIDd 4.2-5.8cm) . Mi ld basal septal hypertrophy is present. Septal mo tion is abnormal, likely related to prior cardiac jean rgery . The other segments contract normally. Gl obal LV systolic function normal . Estimated LVEF by qualitative assessment is normal (>60%) . Normal (c ardiac index 2-3 L/min/m2) cardiac output state at rest is noted. Degree of diastolic dysfunction (L AP assessment) is inconclusive due to arrhythmia . Left AtriumLA size is severely enlarged (>48 ml/m2) . Right VentricleRV chamber size is moderately enlarged . Gl obal RV systolic function is low normal . Right Atrium RA cavity size is severely enlarged . 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 Th e prosthetic AoV appears well-seated with normal fu nction by Doppler. Pr osthetic AoV systolic gradients are normal . Ao V dimensionless obstructive index (DOI)) is 0.59 . Pr osthetic AoV regurgitaton is not demonstrated . Mitral Valve Mild MV leaflet thickening. Mi ld to moderate mitral annular calcification. Mi ld mitral regurgitation. 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 Th e submitral apparatus appears mildly thickened . Tricuspid ValveMild tricuspid regurgitation. Es timated peak systolic PA pressure is 70-75 mmHg . Pulmonic Valve Normal PV structure and function by limited views an d Doppler. A trace of pulmonary regurgitation. AortaAortic root size (SInus of Valsalva diameter) is no rmal . PericardiumNo significant pericardial effusion is visualized. IVC/SVC/PA/PV/PleuralThe estimated RA pressure by IVC dynamics 16-20mmHg . Chambers/Structures Left Atrium LA Volume: 183.87 ml LA Area: 45.08 cm^2 LA Vol. Index: 102 ml/m^2 Left Ventricle LVIDd: 5.52 cm LVEDV:111.94 ml LV Septum Diastolic: 1.19 cm LV PW Diastolic: 0.98 cm LV Length: 8.21 cm LVOT Diameter: 2 cm Right Atrium RA Vol. (Sngl Plane): 118.62 ml Right Ventricle TAPSE: 1.56 cm Aorta Ao Root S of Harleen.: 3.54 cm Doppler/Quantitative Measurements Mitral Valve Mean Velocity: 0.99 m/s Mean Gradient: 6.08 mmHg Area (continuity): 1.52 cm^2 MV VTI: 52.9 cm MV Dean. Peak: 2.56 m/s Aortic Valve Peak Velocity: 1.98 m/sMean Velocity: 1.31 m/s Peak Gradient: 15.71 mmHgMean Gradient: 7.78 mmHg AV Area (continuity): 1.84 cm^2 AV VTI: 43.77 cm AV DVI: 0.59 LVOT Peak Velocity: 0.96 m/s Peak Gradient: 3.71 mmHg Mean Velocity: 0.71 m/s Mean Gradient: 2.13 mmHg LVOT Diameter: 2 cm LVOT VTI: 25.68 cm LVOT Area: 3.14 cm^2LVOT SV:80.64 ml LVOT CO: 5.73 l/min LVOT CI: 3.17 l/min/m^2 Tricuspid Valve TR Velocity: 3.7 m/s TR Gradient: 54.89 mmHg Procedure Note Interface, External Ris In - 03/06/2018 2:53 PM BACTERIOLOGIST SOIL Transthoracic Echocardiography Report (TTE) Demographics Patient Name KAYLEE ARRIAGA Date of Study 03/05/2018 REHANA Gender Male Visit Number [id number] Race Unknown Room Number 7301 Number Date of 1930 Referring Physician Margarita Ponce MD Age 87 year(s) [address] 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 Clinical History HGB 7.3 HCT 23.7 % GERARDO Anemia Atrial Fibrillation/flutter Congestive Heart Failure Coronary Artery Disease Hyperlipidemia Hypertension Myocardial Infarction Pulmonary hypertension Height: 67 inches Weight: 70.31 kg (155 lbs) BSA: 1.81 m^2 BMI: 24.28 kg/m^2 HR: 71 bpm BP: 150/47 mmHg Summary The left ventricle is chamber size (by PSLAX dimension) is normal (male - LVIDd 4.2-5.8cm) . Mild basal septal hypertrophy is present. Septal motion is abnormal, likely related to prior cardiac surgery . The other segments contract normally. Estimated LVEF by qualitative assessment is normal (>60%) . Degree of diastolic dysfunction (LAP assessment) is inconclusive due to arrhythmia . The prosthetic AoV appears well-seated with normal function by Doppler. Prosthetic AoV systolic gradients are normal . AoV dimensionless obstructive index (DOI)) is 0.59 . Prosthetic AoV regurgitaton is not demonstrated . Estimated peak systolic PA pressure is 70-75 mmHg . The estimated RA pressure by IVC dynamics 16-20mmHg . Previous Study In comparison with the prior exam on 09-11-17 there are no significant changes. Cannot compare PAP. Signature Findings Technical Quality: Technically adequate exam. Rhythm/BP Irregular rhythm during the exam. Left Ventricle The left ventricle is chamber size (by PSLAX dimension) is normal (male - LVIDd 4.2-5.8cm) . Mild basal septal hypertrophy is present. Septal motion is abnormal, likely related to prior cardiac surgery . The other segments contract normally. Global LV systolic function normal . Estimated LVEF by qualitative assessment is normal (>60%) . Normal (cardiac index 2-3 L/min/m2) cardiac output state at rest is noted. Degree of diastolic dysfunction (LAP assessment) is inconclusive due to arrhythmia . Left Atrium LA size is severely enlarged (>48 ml/m2) . Right Ventricle RV chamber size is moderately enlarged . Global RV systolic function is low normal . Right Atrium RA cavity size is severely enlarged . Aortic Valve A percutaneous (TAVR) biologic AoV prosthesis is visualized . The prosthetic AoV appears well-seated with normal function by Doppler. Prosthetic AoV systolic gradients are normal . AoV dimensionless obstructive index (DOI)) is 0.59 . Prosthetic AoV regurgitaton is not demonstrated . Mitral Valve Mild MV leaflet thickening. Mild to moderate mitral annular calcification. Mild mitral regurgitation. 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 The submitral apparatus appears mildly thickened . Tricuspid Valve Mild tricuspid regurgitation. Estimated peak systolic PA pressure is 70-75 mmHg . Pulmonic Valve Normal PV structure and function by limited views and Doppler. A trace of pulmonary regurgitation. Aorta Aortic root size (SInus of Valsalva diameter) is normal . Pericardium No significant pericardial effusion is visualized. IVC/SVC/PA/PV/Pleural The estimated RA pressure by IVC dynamics 16-20mmHg . Chambers/Structures Left Atrium LA Volume: 183.87 ml LA Area: 45.08 cm^2 LA Vol. Index: 102 ml/m^2 Left Ventricle LVIDd: 5.52 cm LVEDV:111.94 ml LV Septum Diastolic: 1.19 cm LV PW Diastolic: 0.98 cm LV Length: 8.21 cm LVOT Diameter: 2 cm Right Atrium RA Vol. (Sngl Plane): 118.62 ml Right Ventricle TAPSE: 1.56 cm Aorta Ao Root S of Harleen.: 3.54 cm Doppler/Quantitative Measurements Mitral Valve Mean Velocity: 0.99 m/s Mean Gradient: 6.08 mmHg Area (continuity): 1.52 cm^2 MV VTI: 52.9 cm MV Dean. Peak: 2.56 m/s Aortic Valve Peak Velocity: 1.98 m/s Mean Velocity: 1.31 m/s Peak Gradient: 15.71 mmHg Mean Gradient: 7.78 mmHg AV Area (continuity): 1.84 cm^2 AV VTI: 43.77 cm AV DVI: 0.59 LVOT Peak Velocity: 0.96 m/s Peak Gradient: 3.71 mmHg Mean Velocity: 0.71 m/s Mean Gradient: 2.13 mmHg LVOT Diameter: 2 cm LVOT VTI: 25.68 cm LVOT Area: 3.14 cm^2 LVOT SV:80.64 ml LVOT CO: 5.73 l/min LVOT CI: 3.17 l/min/m^2 Tricuspid Valve TR Velocity: 3.7 m/s TR Gradient: 54.89 mmHg Performing Organization Address City/[facility]/Zipcode Phone Number [facility] MKCKESSON CPACS Type and screen, automated (03/05/2018 5:40 PM BACTERIOLOGIST SOIL)Only the most recent of3 resultswithin the time period is included. ABO/RH AUTOMATED (BEAKER) O POSITIVE [facility] Ab Scrn NEGATIVE [facility] Specimen Blood Performing Organization Address City/[facility]/Zipcode Phone Number [facility] [address] [place] [address] Occult blood, stool (03/05/2018 12:32 PM BACTERIOLOGIST SOIL)Only the most recent of2 resultswithin the time period is included. Occult blood Positive (A) Negative [facility] Specimen Stool Performing Organization Address City/[facility]/Zipcode Phone Number [address] [address] [phone] TELL Vancomycin level, random (03/05/2018 11:38 AM BACTERIOLOGIST SOIL) Vancomycin Rm 10.1 ug/mL [facility] Specimen Blood Narrative Performed At Reference Range: No Normals [facility] Performing Organization Address City/[facility] Phone Number [address] [address] [phone] TELL Sputum Culture + Gram Stain (03/05/2018 8:02 AM BACTERIOLOGIST SOIL) Result No growth [facility] Gram Stain Result 4+ WBCs [facility] Gram Stain Result 0-5 epithelial cells [facility] Gram Stain Result <1+ gram positive cocci in [facility] Specimen Sputum - Suctioned Performing Organization Address [facility]/Zipcode Phone Number [address] [address] TELL Ammonia (03/05/2018 7:28 AM BACTERIOLOGIST SOIL)Only the most recent of3 resultswithin the time period is included. Ammonia 38 18 - 72 mol/L [facility] Specimen Blood Performing Organization Address City/[facility] Cent[facility]ode Phone Number [address] [address] TELL Blood gas, arterial (03/05/2018 4:01 AM BACTERIOLOGIST SOIL)Only the most recent of3 resultswithin the time period is included. pH, Arterial 7.42 7.35 - 7.45 [facility] pCO2, Arterial 36 35 - 45 mmHg [facility] pO2, Arterial 193 (H) 80 - 90 mmHg [facility] O2 Sat, Arterial 99.3 (H) 96.0 - 97.0 % [facility] HCO3, Arterial 23 21 - 29 mmol/L [facility] Base Excess, Arterial -1.6 -2.0 - 3.0 mmol/L [facility] Patient Temperature 37.4 C [facility] FIO2 30.0 % [facility] Specimen Blood, Arterial Performing Organization Address City/State/Zipcode Phone Number [facility] [address] [place] [address] [phone] abdomen/pelvis with IV contrast (03/04/2018 4:07 PM BACTERIOLOGIST SOIL) Specimen Narrative Performed At FINAL REPORT erento CT of the abdomen and pelvis, with contrast Clinical History:Abd pain, gastroenteritis or colitis suspected Technique: CT of the abdomen and pelvis is performed with intravenous contrast administration.This exam was performed according to our departmental dose optimization program which includes automated exposure control, adjustment of the mA and/or kV according to patient's size and/or use of iterative reconstructive technique. Comparison Film:July 22, 2017 Discussion: Heart is enlarged. No pericardial effusion. Mild interlobular septal thickening is noted at the lung bases, suggestive of pulmonary edema. There is a feeding tube that terminates in the gastric antrum. Stable subcentimeter hypodensity in the liver probably represents a cyst. No biliary ductal dilatation. Status post cholecystectomy. Spleen is mildly enlarged and measures 13.2 cm sagittally. The pancreas, adrenal glands are unremarkable. Kidneys demonstrate no hydronephrosis, radiopaque stone or suspicious mass lesion. Postsurgical change is present at the anorectal junction. No evidence of bowel obstruction. Liquid content in colon suggests diarrhea. No abnormal bowel wall thickening is identified. There is no significant pericolonic inflammatory change. Normal appendix. Note is made of mild colonic diverticulosis. In the pelvis, bladder is decompressed with Dos Santos catheter. Prostate and seminal vesicles are unremarkable. There is advanced vascular calcification. No ascites, free air, or adenopathy. Osseous structures demonstrate degenerative changes. There is a stable wedge-shaped compression deformity of L1 vertebral body. Impression: Liquid content in colon suggests diarrhea, correlate clinically for enterocolitis. No obstruction. No significant bowel wall thickening identified. Mild colonic diverticulosis. Postsurgical change at the anorectal junction. Advanced atherosclerotic disease. Cardiomegaly. Mild splenomegaly. Status post cholecystectomy. Signed: Shama Melendez MD Report Verified Date/Time:03/04/2018 16:57:24 Reading Location: [facility] B1 C013Y CT Body Reading Room Procedure Note Interface, External Ris In - 03/04/2018 4:59 PM BACTERIOLOGIST SOIL FINAL REPORT CT of the abdomen and pelvis, with contrast Clinical History: Abd pain, gastroenteritis or colitis suspected Technique: CT of the abdomen and pelvis is performed with intravenous contrast administration. This exam was performed according to our departmental dose optimization program which includes automated exposure control, adjustment of the mA and/or kV according to patient's size and/or use of iterative reconstructive technique. Comparison Film: July 22, 2017 Discussion: Heart is enlarged. No pericardial effusion. Mild interlobular septal thickening is noted at the lung bases, suggestive of pulmonary edema. There is a feeding tube that terminates in the gastric antrum. Stable subcentimeter hypodensity in the liver probably represents a cyst. No biliary ductal dilatation. Status post cholecystectomy. Spleen is mildly enlarged and measures 13.2 cm sagittally. The pancreas, adrenal glands are unremarkable. Kidneys demonstrate no hydronephrosis, radiopaque stone or suspicious mass lesion. Postsurgical change is present at the anorectal junction. No evidence of bowel obstruction. Liquid content in colon suggests diarrhea. No abnormal bowel wall thickening is identified. There is no significant pericolonic inflammatory change. Normal appendix. Note is made of mild colonic diverticulosis. In the pelvis, bladder is decompressed with Dos Santos catheter. Prostate and seminal vesicles are unremarkable. There is advanced vascular calcification. No ascites, free air, or adenopathy. Osseous structures demonstrate degenerative changes. There is a stable wedge-shaped compression deformity of L1 vertebral body. Impression: Liquid content in colon suggests diarrhea, correlate clinically for enterocolitis. No obstruction. No significant bowel wall thickening identified. Mild colonic diverticulosis. Postsurgical change at the anorectal junction. Advanced atherosclerotic disease. Cardiomegaly. Mild splenomegaly. Status post cholecystectomy. Signed: Shama Melendez MD Report Verified Date/Time: 03/04/2018 16:57:24 Reading Location: [facility] B1 C013Y CT Body Reading Room Performing Organization Address City/[facility] Cent[facility]ode Phone Number GE RIS Lactic acid, arterial, whole blood (03/04/2018 9:50 AM BACTERIOLOGIST SOIL) Lactate, Art 0.7 0.5 - 2.2 mmol/L [facility] Specimen Blood, Arterial Performing Organization Address [facility]/Zipcode Phone Number [facility] [address] [place] [address] CENTER Anti-Mitochondrial Ab, reflex to titer (03/04/2018 3:48 AM BACTERIOLOGIST SOIL) Scan Result [facility] Specimen Blood Narrative Performed At Performing Organization Address [facility] Phone Number [facility] [place] [address] INCORPORATED [address] [employer] LIVER-KIDNEY MICROSOME AB (03/04/2018 3:48 AM BACTERIOLOGIST SOIL) LKM-1 Antibody (IgG) <20.0 See Note: [facility] Comment: INCORPORATED Reference Range: <=20.0 NEGATIVE 20.1-24.9EQUIVOCAL >=25.0 POSITIVE Anti-liver/kidney microsomal antibodies (Anti-LKM-1) were previously tested by indirect immunofluorescence (IF) using rodent liver/kidney substrate. Identification of a specific antibody target as cytochrome P450 IID6 has led to the current recombinant based ALCIDES. Antibodies to this cytochrome are present in approximately 70% of patients with autoimmune hepatitis type 2. This antibody is also present in approximately 10% of patients with hepatitis C infection. Specimen Blood Narrative Performed At Performing Lab [facility] [employer] [address] [email or web address] [address] Haim Alfonso MD, PhD, ROSALES Performing Organization Address [facility] [place] [address] INCORPORATED [address] [employer] Actin (Smooth Muscle) Antibody, IgG (03/04/2018 3:48 AM BACTERIOLOGIST SOIL) Anti-Smooth Muscle Ab <20 See Note: U [facility] Comment: INCORPORATED Reference Range: <20 NEGATIVE > OR=20 POSITIVE Antibodies recognizing actin are the main component of smooth muscle antibodies associated with autoimmune liver disease. Actin antibodies are found in approximately 75% of patients with autoimmune hepatitis (AIH) type 1, approximately 65% of patients with autoimmune cholangitis, approximately 30% of patients with primary biliary cirrhosis, and approximately 2% of healthy people. High values are closely correlated with AIH type 1. Specimen Blood Narrative Performed At Performing [facility] [place] [address] [place] [address] Haim Alfonso MD, PhD, ROSALES Performing Organization Address [facility]conv Phone Number [place] [address] INCORPORATED [address] [facility] Carbohydrate antigen 19-9 (CA 19-9) (03/04/2018 3:48 AM BACTERIOLOGIST SOIL) CA 19-9 <3 <34 U/mL [facility] Comment: This test was performed using the Siemens (Blue Source) Chemiluminescent method. Values obtained from different assay methods cannot be used interchangeably. CA19-9 levels, regardless of value, should not be interpreted as absolute evidence of the presence or absence of disease. Specimen Blood Narrative Performed At Performing [facility] [place] [address] [place] [address] Haim Alfonso MD, PhD, ROSALES Performing Organization Address [facility] Phone Number [place] [address] INCORPORATED [address] [employer] Ceruloplasmin (03/04/2018 3:48 AM BACTERIOLOGIST SOIL) Ceruloplasmin 27 18 - 36 mg/dL [facility] Comment: Adults:Males: 18-36 mg/dL Females: 18-53 mg/dL Pediatrics:Males (mg/dL)Females (mg/dL) 0-30 Days 8-25 3-28 31 Days-11 Month 4815-43 1-3 [id number] 4-6 [id number] 7-9 [id number] 10-12 [id number] 13-15 [id number] 16-18 [id number] The pediatric ranges are derived from the following criteria: Al WELCH, Dawna PEREZ, Noelle J et al Pediatric reference ranges for Wdwe-1-Mlssnepesauad and ceruloplasmin. Clin. Chem 1997; 43:S1999 Pediatric Reference Ranges, 2nd., [place] Alet al. editors. [employer], [place], [place] 1997. Specimen Blood Narrative Performed At Performing Lab [facility] *[employer] [employer] [facility], [address] [place] [phone] Greg Mcguire MD, PhD Performing Organization Address City/State/Zipcode Phone Number [facility], [place] [address] INCORPORATED [address] [facility] Troponin I (03/03/2018 8:56 PM BACTERIOLOGIST SOIL)Only the most recent of3 resultswithin the time period is included. Troponin I 0.08 (H) 0.00 - 0.03 ng/mL [facility] Specimen Blood Narrative Performed At Troponin I (TnI) levels must be interpreted [facility] in the context of the presenting symptoms and the clinical findings. Elevated TnI levels indicate myocardial damage, but are not specific for ischemic heart disease. Elevated TnI levels are seen in patients with other cardiac conditions (including myocarditis and congestive heart failure), and slight TnI elevations occur in patients with other conditions, including sepsis, renal failure, acidosis, acute neurological disease, and persistent tachyarrhythmia. Performing Organization Address City/State/Zipcode Phone Number [facility] [address] [place] [address] [phone] CENTER ECG 12 lead (03/03/2018 4:40 PM BACTERIOLOGIST SOIL)Only the most recent of3 resultswithin the time period is included. Specimen Narrative Performed At Ventricular Rate 102 BPM GE MUSE Atrial Rate 108 BPM QRS Duration 144 ms Q-T Interval 342 ms QTC Calculation(Bazett) 445 ms R Lincoln 268 degrees T Lincoln 63 degrees Atrial fibrillation Right bundle branch block Inferior infarct (cited on or before 15-JUL-2017) Abnormal ECG When compared with ECG of 10-SEP-2017 16:22, No significant change was found Confirmed by MD LUNA JORGE ([id number]) on 03/04/2018 12:00:23 PM Procedure Note Interface, External Ris In - 03/04/2018 12:00 PM BACTERIOLOGIST SOIL Ventricular Rate 102 BPM Atrial Rate 108 BPM QRS Duration 144 ms Q-T Interval 342 ms QTC Calculation(Bazett) 445 ms R Lincoln 268 degrees T Lincoln 63 degrees Atrial fibrillation Right bundle branch block Inferior infarct (cited on or before 15-JUL-2017) Abnormal ECG When compared with ECG of 10-SEP-2017 16:22, No significant change was found Confirmed by MD LUNA JORGE ([id number]) on 03/04/2018 12:00:23 PM Performing Organization Address [facility] Phone Number [facility] Procalcitonin (03/03/2018 3:58 PM BACTERIOLOGIST SOIL)Only the most recent of2 resultswithin the time period is included. Procalcitonin <0.05 <0.05 ng/mL [facility] Specimen Blood Narrative Performed At SEPSIS RISK (ng/mL) [facility] Low:0.05-0.50 Intermediate: 0.51-2.00 High: >=2.01 Performing Organization Address [facility] Phone Number [address] [address] [phone] TELL Hepatitis A antibody, IgG (03/03/2018 3:58 PM BACTERIOLOGIST SOIL) Hep A IgG Reactive (A) Nonreactive [facility] Specimen Blood Performing Organization Address [facility] CenterSilicon & Software Systemsnv Phone Number [place] [phone] [place] [address] CENTER Iron, TIBC, % sat. (without ferritin) (03/03/2018 3:58 PM BACTERIOLOGIST SOIL) Iron 78.0 40.0 - 160.0 ug/dL [facility] TIBC 294 250 - 450 ug/dL [facility] Iron % Saturation 27 20 - 55 % [facility] Specimen Blood Performing Organization Address City/State/Zipcode Phone Number [address] [address] [phone] TELL Hepatitis C antibody (03/03/2018 3:58 PM BACTERIOLOGIST SOIL) Hepatitis C Ab Nonreactive Nonreactive [facility] Specimen Blood Performing Organization Address City/State/Zipcode Phone Number [address] [address] TELL Alpha fetoprotein (AFP), tumor marker (03/03/2018 3:58 PM BACTERIOLOGIST SOIL) Alpha-Fetoprotein <2.0 <10.0 ng/mL [facility] Specimen Blood Performing Organization Address [facility] Centercode Phone Number [address] [address] [phone] TELL Hepatitis B core antibody, total (03/03/2018 3:58 PM BACTERIOLOGIST SOIL) Hep B Core Total Ab Nonreactive Nonreactive [facility] [facility] Specimen Blood Performing Organization Address [facility] Cent[facility]ode Phone Number [address] [address] [phone] TELL Hepatitis B surface antibody (03/03/2018 3:58 PM BACTERIOLOGIST SOIL) Hep B S Ab <8.0 <8.0 mIU/mL [facility] Specimen Blood Performing Organization Address City/[facility]/Zipcode Phone Number [address] [address] TELL Hepatitis B surface antigen (03/03/2018 3:58 PM BACTERIOLOGIST SOIL) hepatitis B Surface Ag Nonreactive Nonreactive [facility] Specimen Blood Performing Organization Address City/State/Zipcode Phone Number [address] [address] CENTER Fibrinogen (03/03/2018 3:58 PM BACTERIOLOGIST SOIL) Fibrinogen 333 225 - 434 mg/dl [facility] Specimen Blood Performing Organization Address City/[facility] Phone Number [address] [address] TELL Anti-Nuclear Antibody (STEPHY) (03/03/2018 3:58 PM BACTERIOLOGIST SOIL) STEPHY Negative Negative [facility] Specimen Blood Narrative Performed At Test performed by IFA method. [facility] Test performed by IFA method. Performing Organization Address City/[facility] Cent[facility]ode Phone Number [address] [address] TELL Ferritin (03/03/2018 3:58 PM BACTERIOLOGIST SOIL) Ferritin 28 5 - 275 ng/mL [facility] Specimen Blood Performing Organization Address City/[facility]ode Phone Number [address] [phone] TELL Carcinoembryonic Antigen (CEA) (03/03/2018 3:58 PM BACTERIOLOGIST SOIL) CEA, SERUM 2.2 0.0 - 5.0 ng/mL [facility] Specimen Blood Performing Organization Address [facility]ode Phone Number [address] [address] TELL MRSA screen (03/03/2018 3:49 PM BACTERIOLOGIST SOIL) Result No MRSA isolated [facility] Specimen Other Performing Organization Address [facility]ode Phone Number [address] [address] TELL POC-Lactic Acid, Arterial (03/03/2018 2:04 PM BACTERIOLOGIST SOIL) POC-Lactic Acid, 1.2Comment: TESTED AT 0.4 - 1.3 mmol/L [facility] Arterial [facility] [address] [place] [address] Specimen Blood Performing Organization Address City/State/Zipcode Phone Number [address] [address] TELL POCT-HEMATOCRIT (03/03/2018 1:56 PM BACTERIOLOGIST SOIL) POC-Hematocrit 24 (L)Comment: TESTED AT 40 - 50 % [address] [address] Specimen Blood Performing Organization Address City/[facility] Cent[facility]ode Phone Number [address] [address] [phone] TELL POCT-HEMOGLOBIN (03/03/2018 1:56 PM BACTERIOLOGIST SOIL) POC-Hemoglobin 8.2 (L)Comment: TESTED AT 13.0 - 16.8 g/dL [address] [id number] AT [address] [address] Specimen Blood Performing Organization Address [facility]conv Phone Number [address] [address] [phone] TELL POCT-GLUCOSE (03/03/2018 1:56 PM BACTERIOLOGIST SOIL) POC-Glucose 170 (H)Comment: TESTED AT 70 - 110 mg/dL [address] [address] Specimen Blood Performing Organization Address [facility] Centerconv Phone Number [address] [address] [phone] TELL POC-Sodium (03/03/2018 1:56 PM BACTERIOLOGIST SOIL) POC-Sodium 151 (H)Comment: TESTED AT 135 - 148 meq/L [address] [place] [address] Specimen Blood Performing Organization Address [facility]ode Phone Number [address] [address] [phone] CENTER POC-Potassium (03/03/2018 1:56 PM BACTERIOLOGIST SOIL) POC-Potassium 3.7Comment: TESTED AT [facility] 3.6 - 5.5 meq/L [address] [address] Specimen Blood Performing Organization Address City/[facility]/Zipcode Phone Number [address] [address] TELL POC-Calcium ionized (03/03/2018 1:56 PM BACTERIOLOGIST SOIL) POC-Calcium Ionized 1.20Comment: TESTED AT 1.12 - 1.27 mmol/L [place] [address] Specimen Blood Performing Organization Address [facility] Centercode Phone Number [address] [address] TELL POC-Blood gases, arterial (03/03/2018 1:56 PM BACTERIOLOGIST SOIL) Temp. Celsius-POC 37.0 [facility] FIO2-POC Comment: TESTED AT [address] [address] pH, Arterial-POC 7.496 (H) 7.350 - 7.450 [facility] PCO2, Arterial-POC 31.0 (L) 35.0 - 45.0 mm Hg [facility] PO2, Arterial-POC 66.0 (L) 80.0 - 90.0 mm Hg [facility] SO2, Arterial-POC 95.0 (L) 96.0 - 97.0 % [facility] HCO3, Arterilal-POC 23.9 21.0 - 29.0 meq/L [facility] BE, Arterial-POC 1.0 -2.0 - 3.0 meq/L [facility] Specimen Blood Performing Organization Address City/[facility]/Zipcode Phone Number [address] [phone] TELL EEG AWAKE AND DROWSY (03/03/2018 12:37 PM BACTERIOLOGIST SOIL) Specimen Narrative Performed At EEG REPORT: Kaylee Arriaga, 87 yrs GE RIS [facility] Date of EE Date of report: EEG start time: 1216 EEG end time: 1237 EEG#: [id number] Accession No: [id number] ICD Code: #: R41.82 Altered mental status, unspecified (ICD 9: 780.97) CPT Code: #: 16840: 03. EEG coma or sleep only; 20-40 min PROCEDURE: EEG HISTORY: 87 yo male with CAD s/p CABG, afib, HTN. Has worsening of AMS and facial droop(left side). MEDICATIONS AFFECTING EEG: Quetiapine TECHNICAL SUMMARY: This is a digital EEG performed using disc electrodes placed according to the International 10-20 system of electrode placement.Scalp to scalp and scalp to ear montages were used. DESCRIPTION OF RECORD: During the stimulated state, the frequency spectrum consists primarily of diffuse, moderate amplitude much 1.5-3 Hz delta and some 4-5 Hz theta slow wave activities. Intermittent EEG attenuation of 2-4 seconds were seen. There is no EEG reactivity. There is paucity of faster frequencies. Neither an occipital dominant rhythm, nor an organized frequency amplitude gradient are well demonstrable. There are frequent broad based, bi-synchronous discharges with a triphasic morphology, and occur either singly or in brief rhythmic trains. These discharges demonstrate an anterior predominance, with anterior to posterior phase lag. SLEEP No sleep structures were seen in this record. HYPERVENTILATION: Not performed. PHOTIC STIMULATION: No photic driving was seen with multiple frequencies of flickering light. EKG: Hear rate was irregular and approximately about 120/min IMPRESSION: This EEG study is abnormal due to: (1) Severe diffuse slowing of the background rhythms; and, (2) Triphasic potentials and (3) intermittent attenuations. There is no evidence for electrographic seizure in this record. 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 Triphasic potential is a nonspecific finding that is most typically associated metabolic disturbances (ie. hepatic, renal encephalopathy). However, triphasic potentials can also be associated with other settings of widespread [employer] insults, including the aftermath of prolonged seizures. Intermittent attenuations reflect cortical suppression. Clinical Fellow: Henri Yañez Neurophysiologist: Wil Mathias Procedure Note Interface, External Ris In - 03/03/2018 2:50 PM BACTERIOLOGIST SOIL EEG REPORT: Kaylee Arriaga, 87 yrs [facility] Date of EE Date of report: EEG start time: 1216 EEG end time: 1237 EEG #: [id number] Accession No: [id number] ICD Code: #: R41.82 Altered mental status, unspecified (ICD 9: 780.97) CPT Code: #: 48465: 03. EEG coma or sleep only; 20-40 min PROCEDURE: EEG HISTORY: 87 yo male with CAD s/p CABG, afib, HTN. Has worsening of AMS and facial droop(left side). MEDICATIONS AFFECTING EEG: Quetiapine TECHNICAL SUMMARY: This is a digital EEG performed using disc electrodes placed according to the International 10-20 system of electrode placement. Scalp to scalp and scalp to ear montages were used. DESCRIPTION OF RECORD: During the stimulated state, the frequency spectrum consists primarily of diffuse, moderate amplitude much 1.5-3 Hz delta and some 4-5 Hz theta slow wave activities. Intermittent EEG attenuation of 2-4 seconds were seen. There is no EEG reactivity. There is paucity of faster frequencies. Neither an occipital dominant rhythm, nor an organized frequency amplitude gradient are well demonstrable. There are frequent broad based, bi-synchronous discharges with a triphasic morphology, and occur either singly or in brief rhythmic trains. These discharges demonstrate an anterior predominance, with anterior to posterior phase lag. SLEEP No sleep structures were seen in this record. HYPERVENTILATION: Not performed. PHOTIC STIMULATION: No photic driving was seen with multiple frequencies of flickering light. EKG: Hear rate was irregular and approximately about 120/min IMPRESSION: This EEG study is abnormal due to: (1) Severe diffuse slowing of the background rhythms; and, (2) Triphasic potentials and (3) intermittent attenuations. There is no evidence for electrographic seizure in this record. 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 Triphasic potential is a nonspecific finding that is most typically associated metabolic disturbances (ie. hepatic, renal encephalopathy). However, triphasic potentials can also be associated with other settings of widespread [employer] insults, including the aftermath of prolonged seizures. Intermittent attenuations reflect cortical suppression. Clinical Fellow: Henri Yañez Neurophysiologist: Wil Mathias Performing Organization Address City/[facility]ode Phone Number GE RIS STOOL PATH CHARGE (03/03/2018 10:23 AM BACTERIOLOGIST SOIL) Pathogen exam charged Done [facility] Specimen Stool Performing Organization Address [facility] Centercode Phone Number [address] [address] TELL Shiga Toxin Screen (03/03/2018 10:23 AM BACTERIOLOGIST SOIL) Shiga toxin 1 Not detected Not detected [facility] Shiga toxin 2 Not detected Not detected [facility] Specimen Stool Performing Organization Address [facility] Centerconv Phone Number [address] [address] TELL Fecal leukocytes (03/03/2018 10:23 AM BACTERIOLOGIST SOIL) Fecal Leukocytes No fecal leukocytes No fecal leukocytes [facility] seen [facility] Specimen Stool Performing Organization Address [facility] Phone Number [address] [address] TELL Stool culture + Shiga toxin (03/03/2018 10:23 AM BACTERIOLOGIST SOIL) Result No Salmonella, Shigella or [facility] Campylobacter isolated [facility] Specimen Stool Performing Organization Address [facility]ercode Phone Number [address] [address] CENTER Blood culture (03/03/2018 10:22 AM BACTERIOLOGIST SOIL)Only the most recent of2 resultswithin the time period is included. Result No growth in 5 days [facility] Specimen Blood Performing Organization Address [facility] Cent[facility]ode Phone Number [address] [address] [phone] TELL Urinalysis w/Microscopic + Reflex to Culture (03/03/2018 10:16 AM BACTERIOLOGIST SOIL) Color, UA Yellow [facility] Clarity, UA Clear [facility] Specific [place], UA 1.016 1.001 - 1.035 [facility] pH, UA 6.5 5.0 - 8.0 [facility] Protein, UA 50 mg/dL (A) Negative [facility] Glucose, UA Negative Negative [facility] Ketones, UA Trace (A) Negative [facility] Bilirubin, UA Negative Negative [facility] Blood, UA Negative Negative [facility] Nitrite, UA Negative Negative [facility] Leukocytes, UA Negative Negative [facility] Urobilinogen, UA 0.2 0.2 - 1.0 mg/dL [facility] RBC, UA 4 /HPF [facility] WBC, UA 2 /HPF [facility] Bacteria, UA Moderate [facility] Squam Epithel, UA 1 /HPF [facility] Specimen Source [facility] Specimen Urine Performing Organization Address City/[facility]/Zipcode Phone Number [facility] [address] [place] [address] TELL Vitamin B12 and Folate (03/03/2018 10:01 AM BACTERIOLOGIST SOIL) Vitamin B12 715 213 - 816 pg/mL [facility] Folate 17.0 >=7.0 ng/mL [facility] Specimen Blood Performing Organization Address City/[facility]/Zipcode Phone Number [place] [phone] [place] [address] TELL TSH/Free T4 If Indicated (03/03/2018 10:01 AM BACTERIOLOGIST SOIL) TSH 2.67 0.35 - 4.94 uIU/mL [facility] Specimen Blood Performing Organization Address [facility]conv Phone Number [address] [phone] TELL Sodium (03/03/2018 10:01 AM BACTERIOLOGIST SOIL) Sodium 148 (H) 136 - 145 meq/L [facility] Specimen Blood Performing Organization Address [facility] Centerconv Phone Number [address] [address] [phone] TELL Clostridium difficile [facility] Toxin (03/03/2018 6:11 AM BACTERIOLOGIST SOIL) C. Difficle Toxin Negative Negative [facility] C. Difficile [facility] Antigen Positive (A)Comment: C. Negative [facility] difficile present but toxin MEDICAL [facility]ENTER not detected. Indicates colonization with non-toxigenic strain or level of toxin below detectable levels. No need for enteric isolation. Treatment is rarely needed (only when strong clinical suspicion for Clostridium difficile infection) Specimen Stool Narrative Performed At Testing performed by [employer] [facility] Assay.For [facility], published sensitivity of the assay is 98.7% compared to cytotoxicity testing.For Toxin AB, published sensitivity is 87.8% and specificity 99.4% compared to cytotoxicity testing. Verification of kit performance was done by the [facility] prior to clinical use. Performing Organization Address [facility] Centerconv Phone Number [address] [address] CENTER Hemoglobin A1c (03/03/2018 6:05 AM BACTERIOLOGIST SOIL) Hemoglobin A1C 6.2 (H) 4.3 - 6.1 % [facility] Specimen Blood Performing Organization Address [facility]conv Phone Number [address] [address] [phone] TELL MR brain without IV contrast (03/03/2018 2:21 AM BACTERIOLOGIST SOIL) Specimen Narrative Performed At FINAL REPORT [facility] MRI Brain without contrast Clinical History: Ischemic Stroke Evaluation AMS, Afib Technique: MRI of the brain utilizing axial T2, FLAIR, GRE, DWI; sagittal and coronal T1-weighted images. MRA of the head utilizing 3-D wezu-js-wjgtho technique, with 3-D reconstructions. MRA of the neck utilizing 2-D and 3-D dtst-eq-rnjxdw technique, with 3-D reconstructions. Comparisons: None Findings: MRI brain There is no evidence of acute infarct or hemorrhage. 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 Generalized parenchymal volume loss with commensurate enlargement of CSF spaces and ventricles. There is no hydrocephalus or midline shift. There are no extra-axial fluid collections. The craniocervical junction is preserved. The major intracranial flow-voids appear patent. Bilateral mastoid air cell effusions. Polypoid mucosal thickening in the bilateral maxillary sinuses. MRA head: Flow in the distal V4 segment of the right vertebral artery likely secondary to retrograde flow from the basilar artery. There is no evidence of intracranial aneurysm, focal stenosis, or major branch vessel occlusion. 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 The left carotid artery in the neck is patent including their bifurcations. No flow is seen within the right vertebral artery. Left vertebral artery is widely patent. IMPRESSION: MRI brain: No evidence of acute infarct, hemorrhage, or hydrocephalus. Chronic ischemic and involutional changes as described above. MRA head: No evidence for a major [place] proximal branch vessel occlusion. MRA neck: Loss of the expected antegrade flow within the cervical right vertebral artery with flow in the distal V4 segment likely via retrograde flow from the basilar artery. 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 No evidence of hemodynamically significant stenosis in the left cervical carotid or left vertebral arteries by NASCET criteria. Signed: David Jha MD Report Verified Date/Time:03/03/2018 05:21:46 Reading Location: [address] Reading Room Procedure Note Interface, External Ris In - 03/03/2018 5:23 AM BACTERIOLOGIST SOIL FINAL REPORT MRI Brain without contrast Clinical History: Ischemic Stroke Evaluation AMS, Afib Technique: MRI of the brain utilizing axial T2, FLAIR, GRE, DWI; sagittal and coronal T1-weighted images. MRA of the head utilizing 3-D vsuz-wa-ailxor technique, with 3-D reconstructions. MRA of the neck utilizing 2-D and 3-D djzo-ti-btjgbe technique, with 3-D reconstructions. Comparisons: None Findings: MRI brain There is no evidence of acute infarct or hemorrhage. 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 Generalized parenchymal volume loss with commensurate enlargement of CSF spaces and ventricles. There is no hydrocephalus or midline shift. There are no extra-axial fluid collections. The craniocervical junction is preserved. The major intracranial flow-voids appear patent. Bilateral mastoid air cell effusions. Polypoid mucosal thickening in the bilateral maxillary sinuses. MRA head: Flow in the distal V4 segment of the right vertebral artery likely secondary to retrograde flow from the basilar artery. There is no evidence of intracranial aneurysm, focal stenosis, or major branch vessel occlusion. 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 The left carotid artery in the neck is patent including their bifurcations. No flow is seen within the right vertebral artery. Left vertebral artery is widely patent. IMPRESSION: MRI brain: No evidence of acute infarct, hemorrhage, or hydrocephalus. Chronic ischemic and involutional changes as described above. MRA head: No evidence for a major [place] proximal branch vessel occlusion. MRA neck: Loss of the expected antegrade flow within the cervical right vertebral artery with flow in the distal V4 segment likely via retrograde flow from the basilar artery. 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 No evidence of hemodynamically significant stenosis in the left cervical carotid or left vertebral arteries by NASCET criteria. Signed: David Jha MD Report Verified Date/Time: 03/03/2018 05:21:46 Reading Location: [address] Reading Room Performing Organization Address City/State/Zipcode Phone Number [facility] MRA neck without IV contrast (03/03/2018 2:21 AM BACTERIOLOGIST SOIL) Specimen Narrative Performed At FINAL REPORT [facility] MRI Brain without contrast Clinical History: Ischemic Stroke Evaluation AMS, Afib Technique: MRI of the brain utilizing axial T2, FLAIR, GRE, DWI; sagittal and coronal T1-weighted images. MRA of the head utilizing 3-D pgtp-nd-hgcntr technique, with 3-D reconstructions. MRA of the neck utilizing 2-D and 3-D yghi-vm-brkxdq technique, with 3-D reconstructions. Comparisons: None Findings: MRI brain There is no evidence of acute infarct or hemorrhage. 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 Generalized parenchymal volume loss with commensurate enlargement of CSF spaces and ventricles. There is no hydrocephalus or midline shift. There are no extra-axial fluid collections. The craniocervical junction is preserved. The major intracranial flow-voids appear patent. Bilateral mastoid air cell effusions. Polypoid mucosal thickening in the bilateral maxillary sinuses. MRA head: Flow in the distal V4 segment of the right vertebral artery likely secondary to retrograde flow from the basilar artery. There is no evidence of intracranial aneurysm, focal stenosis, or major branch vessel occlusion. 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 The left carotid artery in the neck is patent including their bifurcations. No flow is seen within the right vertebral artery. Left vertebral artery is widely patent. IMPRESSION: MRI brain: No evidence of acute infarct, hemorrhage, or hydrocephalus. Chronic ischemic and involutional changes as described above. MRA head: No evidence for a major [place] proximal branch vessel occlusion. MRA neck: Loss of the expected antegrade flow within the cervical right vertebral artery with flow in the distal V4 segment likely via retrograde flow from the basilar artery. 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 No evidence of hemodynamically significant stenosis in the left cervical carotid or left vertebral arteries by NASCET criteria. Signed: David Jha MD Report Verified Date/Time:03/03/2018 05:21:46 Reading Location: [address] Transitional Reading Room Procedure Note Interface, External Ris In - 03/03/2018 5:23 AM BACTERIOLOGIST SOIL FINAL REPORT MRI Brain without contrast Clinical History: Ischemic Stroke Evaluation AMS, Afib Technique: MRI of the brain utilizing axial T2, FLAIR, GRE, DWI; sagittal and coronal T1-weighted images. MRA of the head utilizing 3-D xuah-my-fxyjbr technique, with 3-D reconstructions. MRA of the neck utilizing 2-D and 3-D uafu-xk-axevdg technique, with 3-D reconstructions. Comparisons: None Findings: MRI brain There is no evidence of acute infarct or hemorrhage. 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 Generalized parenchymal volume loss with commensurate enlargement of CSF spaces and ventricles. There is no hydrocephalus or midline shift. There are no extra-axial fluid collections. The craniocervical junction is preserved. The major intracranial flow-voids appear patent. Bilateral mastoid air cell effusions. Polypoid mucosal thickening in the bilateral maxillary sinuses. MRA head: Flow in the distal V4 segment of the right vertebral artery likely secondary to retrograde flow from the basilar artery. There is no evidence of intracranial aneurysm, focal stenosis, or major branch vessel occlusion. 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 The left carotid artery in the neck is patent including their bifurcations. No flow is seen within the right vertebral artery. Left vertebral artery is widely patent. IMPRESSION: MRI brain: No evidence of acute infarct, hemorrhage, or hydrocephalus. Chronic ischemic and involutional changes as described above. MRA head: No evidence for a major [place] proximal branch vessel occlusion. MRA neck: Loss of the expected antegrade flow within the cervical right vertebral artery with flow in the distal V4 segment likely via retrograde flow from the basilar artery. 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 No evidence of hemodynamically significant stenosis in the left cervical carotid or left vertebral arteries by NASCET criteria. Signed: David Jha MD Report Verified Date/Time: 03/03/2018 05:21:46 Reading Location: [facility] B1 C013T Transitional Reading Room Performing Organization Address City/State/Zipcode Phone Number KAREN CHAMPAGNE MRA head without IV contrast (03/03/2018 2:21 AM BACTERIOLOGIST SOIL) Specimen Narrative Performed At FINAL REPORT KAREN CHAMPAGNE MRI Brain without contrast Clinical History: Ischemic Stroke Evaluation AMS, Afib Technique: MRI of the brain utilizing axial T2, FLAIR, GRE, DWI; sagittal and coronal T1-weighted images. MRA of the head utilizing 3-D dmoo-qu-gkkwle technique, with 3-D reconstructions. MRA of the neck utilizing 2-D and 3-D vdpf-yp-ajdfrh technique, with 3-D reconstructions. Comparisons: None Findings: MRI brain There is no evidence of acute infarct or hemorrhage. 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 Generalized parenchymal volume loss with commensurate enlargement of CSF spaces and ventricles. There is no hydrocephalus or midline shift. There are no extra-axial fluid collections. The craniocervical junction is preserved. The major intracranial flow-voids appear patent. Bilateral mastoid air cell effusions. Polypoid mucosal thickening in the bilateral maxillary sinuses. MRA head: Flow in the distal V4 segment of the right vertebral artery likely secondary to retrograde flow from the basilar artery. There is no evidence of intracranial aneurysm, focal stenosis, or major branch vessel occlusion. 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 The left carotid artery in the neck is patent including their bifurcations. No flow is seen within the right vertebral artery. Left vertebral artery is widely patent. IMPRESSION: MRI brain: No evidence of acute infarct, hemorrhage, or hydrocephalus. Chronic ischemic and involutional changes as described above. MRA head: No evidence for a major [place] proximal branch vessel occlusion. MRA neck: Loss of the expected antegrade flow within the cervical right vertebral artery with flow in the distal V4 segment likely via retrograde flow from the basilar artery. 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 No evidence of hemodynamically significant stenosis in the left cervical carotid or left vertebral arteries by NASCET criteria. Signed: David Jha MD Report Verified Date/Time:03/03/2018 05:21:46 Reading Location: [address] Transitional Reading Room Procedure Note Interface, External Ris In - 03/03/2018 5:23 AM BACTERIOLOGIST SOIL FINAL REPORT MRI Brain without contrast Clinical History: Ischemic Stroke Evaluation AMS, Afib Technique: MRI of the brain utilizing axial T2, FLAIR, GRE, DWI; sagittal and coronal T1-weighted images. MRA of the head utilizing 3-D rxlr-fb-msggwm technique, with 3-D reconstructions. MRA of the neck utilizing 2-D and 3-D synw-gh-vgzjys technique, with 3-D reconstructions. Comparisons: None Findings: MRI brain There is no evidence of acute infarct or hemorrhage. 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 Generalized parenchymal volume loss with commensurate enlargement of CSF spaces and ventricles. There is no hydrocephalus or midline shift. There are no extra-axial fluid collections. The craniocervical junction is preserved. The major intracranial flow-voids appear patent. Bilateral mastoid air cell effusions. Polypoid mucosal thickening in the bilateral maxillary sinuses. MRA head: Flow in the distal V4 segment of the right vertebral artery likely secondary to retrograde flow from the basilar artery. There is no evidence of intracranial aneurysm, focal stenosis, or major branch vessel occlusion. 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 The left carotid artery in the neck is patent including their bifurcations. No flow is seen within the right vertebral artery. Left vertebral artery is widely patent. IMPRESSION: MRI brain: No evidence of acute infarct, hemorrhage, or hydrocephalus. Chronic ischemic and involutional changes as described above. MRA head: No evidence for a major [place] proximal branch vessel occlusion. MRA neck: Loss of the expected antegrade flow within the cervical right vertebral artery with flow in the distal V4 segment likely via retrograde flow from the basilar artery. 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 No evidence of hemodynamically significant stenosis in the left cervical carotid or left vertebral arteries by NASCET criteria. Signed: David Jha MD Report Verified Date/Time: 03/03/2018 05:21:46 Reading Location: [facility] C0[facility] Transitional Reading Room Performing Organization Address City/State/[facility] Cent[facility]ode Phone Number GE RIS Urinalysis Microscopic Only (03/03/2018 12:23 AM BACTERIOLOGIST SOIL) RBC, UA 1 /HPF [facility] WBC, UA 1 /HPF [facility] Squam Epithel, UA <1 /HPF [facility] Amorphous Crystals Occasional [facility] Specimen Urine Performing Organization Address [facility] Centerconv Phone Number [address] [phone] CENTER Urinalysis with Microscopic If Indicated (03/03/2018 12:23 AM BACTERIOLOGIST SOIL) Color, UA Yellow [facility] Clarity, UA Clear [facility] Specific [place], UA 1.018 1.001 - 1.035 [facility] pH, UA 6.5 5.0 - 8.0 [facility] Protein, UA 30 mg/dL (A) Negative [facility] Glucose, UA Negative Negative [facility] Ketones, UA Trace (A) Negative [facility] Bilirubin, UA Negative Negative [facility] Blood, UA Negative Negative [facility] Nitrite, UA Negative Negative [facility] Leukocytes, UA Negative Negative [facility] Urobilinogen, UA 0.2 0.2 - 1.0 mg/dL [facility] Specimen Source [facility] Specimen Urine Performing Organization Address City/[facility] [facility] Centercode Phone Number [address] [address] [phone] brain/stroke test design (03/02/2018 11:05 PM BACTERIOLOGIST SOIL) Specimen Narrative Performed At FINAL REPORT [facility] CT Head without contrast CLINICAL HISTORY: Decreased alertness TECHNIQUE: Contiguous axial images through the head without contrast. This exam was performed according to the departmental dose optimization program which includes automated exposure control, adjustment of the mA and/or kV according to the patient size, and/or use of an iterative reconstruction technique. COMPARISON: CT head dated same day. FINDINGS: There is no CT evidence of acute infarct or intracranial hemorrhage. Remote small left cerebellar hemisphere infarction. There is periventricular and subcortical white matter hypodensity which is nonspecific but compatible with chronic microvascular ischemic change. There are atherosclerotic calcifications of the intracranial circulation. There is generalized parenchymal volume loss without hydrocephalus, midline shift, or apparent mass effect. There are no extra-axial fluid collections. The skull is intact. Mucosal thickening in the bilateral maxillary sinuses. Mastoid air cells are clear. IMPRESSION: There is no CT evidence of acute infarct or intracranial hemorrhage. If persistent clinical concern for acute intracranial abnormality recommend further evaluation with MRI brain. Involutional and ischemic changes as described above. The findings were discussed with neurology stroke resident at 03/02/2018, 11:15 PM. Signed: David Jha MD Report Verified Date/Time:03/02/2018 23:16:55 Reading Location: [address] Reading Room Procedure Note Interface, External Ris In - 03/02/2018 11:19 PM BACTERIOLOGIST SOIL FINAL REPORT CT Head without contrast CLINICAL HISTORY: Decreased alertness TECHNIQUE: Contiguous axial images through the head without contrast. This exam was performed according to the departmental dose optimization program which includes automated exposure control, adjustment of the mA and/or kV according to the patient size, and/or use of an iterative reconstruction technique. COMPARISON: CT head dated same day. FINDINGS: There is no CT evidence of acute infarct or intracranial hemorrhage. Remote small left cerebellar hemisphere infarction. There is periventricular and subcortical white matter hypodensity which is nonspecific but compatible with chronic microvascular ischemic change. There are atherosclerotic calcifications of the intracranial circulation. There is generalized parenchymal volume loss without hydrocephalus, midline shift, or apparent mass effect. There are no extra-axial fluid collections. The skull is intact. Mucosal thickening in the bilateral maxillary sinuses. Mastoid air cells are clear. IMPRESSION: There is no CT evidence of acute infarct or intracranial hemorrhage. If persistent clinical concern for acute intracranial abnormality recommend further evaluation with MRI brain. Involutional and ischemic changes as described above. The findings were discussed with neurology stroke resident at 03/02/2018, 11:15 PM. Signed: David Jha MD Report Verified Date/Time: 03/02/2018 23:16:55 Reading Location: [facility] C013 Transitional Reading Room Performing Organization Address City/State/Zipcode Phone Number [employer] Lactic acid, venous, whole blood (03/02/2018 9:27 PM BACTERIOLOGIST SOIL) Lactate, Venous 1.6 0.5 - 2.2 mmol/L [facility] Specimen Blood Performing Organization Address City/[facility] [facility] [place] [address] [phone] CENTER REPORT OF PROCEDURE - ENDOSCOPY URL (03/02/2018 4:37 PM BACTERIOLOGIST SOIL) Narrative Performed At CT brain without IV contrast (03/02/2018 12:21 PM BACTERIOLOGIST SOIL) Specimen Narrative Performed At FINAL REPORT [facility] CT head without contrast 03/02/2018 12:24 PM CLINICAL HISTORY: Decreased alertness TECHNIQUE: Axial noncontrast CT images through the head were obtained. This examination was performed according to our departmental dose optimization program, which includes automated exposure control, adjustment of the mA and/or kV according to patient size, and/or use of iterated reconstruction technique. COMPARISON: None available FINDINGS: There is no hemorrhage, extra-axial collection, mass, hydrocephalus, or midline shift. There is mild microvascular ischemia in the supratentorial white matter. There is atherosclerotic calcification of the intracranial arterial vasculature. There is generalized parenchymal volume loss. The visualized paranasal sinuses and mastoid air cells are well aerated. The skull is intact. IMPRESSION: No intracranial hemorrhage or mass effect. Chronic appearing microvascular and involutional changes. If concern for acute pathology persists, further evaluation with MRI is recommended. Signed: Zelalem Gaona MD Report Verified Date/Time:03/02/2018 12:26:23 Reading Location: [address] Neuro Reading Room Procedure Note Interface, External Ris In - 03/02/2018 12:28 PM BACTERIOLOGIST [facility]IL FINAL REPORT CT head without contrast 03/02/2018 12:24 PM CLINICAL HISTORY: Decreased alertness TECHNIQUE: Axial noncontrast CT images through the head were obtained. This examination was performed according to our departmental dose optimization program, which includes automated exposure control, adjustment of the mA and/or kV according to patient size, and/or use of iterated reconstruction technique. COMPARISON: None available FINDINGS: There is no hemorrhage, extra-axial collection, mass, hydrocephalus, or midline shift. There is mild microvascular ischemia in the supratentorial white matter. There is atherosclerotic calcification of the intracranial arterial vasculature. There is generalized parenchymal volume loss. The visualized paranasal sinuses and mastoid air cells are well aerated. The skull is intact. IMPRESSION: No intracranial hemorrhage or mass effect. Chronic appearing microvascular and involutional changes. If concern for acute pathology persists, further evaluation with MRI is recommended. Signed: Zelalem Gaona MD Report Verified Date/Time: 03/02/2018 12:26:23 Reading Location: [address] Neuro Reading Room Performing Organization Address City/State/Zipcode Phone Number [facility] VASCULAR DIAGRAM -SCAN (01/14/2018 12:13 PM BACTERIOLOGIST SOIL) Narrative Performed At CARDIAC CATH REPORT - SCAN (09/15/2017 5:44 PM CDT) Narrative Performed At EKG-SCANNED (09/15/2017 11:10 AM CDT) Narrative Performed At ECHOCARDIOGRAM REPORT - SCAN (09/12/2017 10:50 AM CDT) Narrative Performed At ECHOCARDIOGRAM REPORT - SCAN (09/11/2017 2:21 PM CDT) Narrative Performed At 2D Echo W/Doppler(CW/PW/Color) (09/11/2017 11:04 AM CDT) Ejection Fraction [facility] E[facility] Specimen Narrative Performed At Transthoracic Echocardiography Report (TTE) [facility] Dem[facility] Patient Name KAYLEE ARRIAGADate of Study 09/11/2017 REHANA [id number] GenderMale Visit Number [id number] Unknown [id number] Room Number C632 Number Date of Birth2Referring Physician Margarita Solano Age87 year(s)Street Inspector AMOL Foley InterpretingBSLM C Needs to be Pre Physician Read Suzan Dixon MD Procedure Type of Study TTE procedure:2DECHO W DOPPLER(CW/PW/COLOR) (Routine) Indications:Initial post operative evaluation of prosthetic valve. Clinical History L.CATH/CORONARY 07/15/17, BYPASS AORTA/CORNOARY, A.FIB, CAD, CHF, HTN, CT HGB 9.2 HCT 29.1 % Contrast Medium: [...] Study 09/11/2017 REHANA Gender Male Visit Number [id number] Race Unknown Room Number C632 Number Date of 1930 Referring Physician Margarita Solano Age 87 year(s) [address] Inspector Diogenes Hogan, AMOL Interpreting [facility] [place] [place]eds to be Pre Physician Read Suzan Dixon MD Procedure Type of Study TTE procedure:2DECHO W DOPPLER(CW/PW/COLOR) (Routine) Indications:Initial post operative evaluation of prosthetic valve. Clinical History L.CATH/CORONARY 07/15/17, BYPASS AORTA/CORNOARY, A.FIB, CAD, CHF, HTN, CT HGB 9.2 HCT 29.1 % Contrast Medium: [...] Performing Organization Address City/State/Zipcode Phone Number [facility] CPACS POC ACTIVATED CLOTTING TIME (09/10/2017 4:31 PM CDT)Only the most recent of3 resultswithin the time period is included. Activated Clotting Time 142Comment: TESTED AT sec [facility] [address] [facility] [id number] Specimen Blood Performing Organization Address City/State/Zipcode Phone Number [facility] MEDICAL [address] [place] [address] [phone] CENTER Transesophageal echo (09/10/2017 1:21 PM CDT) Ejection Fraction sment is increased (>60% [facility] ECHO HEART[facility] CPACS Specimen Narrative Performed At Transesophageal Echocardiography Report (ROYAL) [facility] ECHO HEART[facility] CPACS Demographics Patient Name KAYLEE ARRIAGADate of Study 09/10/2017 REHANA [id number] GenderMale Visit Number [id number] Unknown [id number] Room Number [id number] Number Date of Birth2Referring Physician Margarita Solano Age87 year(s)Street Inspector Chapis Parsons, [facility] InterpretingRaym keith Gilbert, Physician MD Fellow SUMAN Acosta The procedure was explained in detail to the patient. Risks, complications and alternative treatments were reviewed. Written consent was obtained. Procedure Type of Study ROYAL procedure:TRANSESOPHAGEAL ECHO (Routine) Indications:TAVR. Clinical History HGB 10.5 HCT 32.3 % GERARDO, A-fib, CHF, CAD, HLD, HTN, CT, PHTN, Severe s/p CABG s/p Coronary stent [...] Study 09/10/2017 REHANA Gender Male Visit Number [id number] Race Unknown Room Number CL-07 Number Date of 1930 Referring Physician Margarita Solano Age 87 year(s) [address] Inspector Chapis Parsons, SEBASTIAN Interpreting Chris Gilbert, Physician MD Fellow SUMAN Acosta The procedure was explained in detail to the patient. Risks, complications and alternative treatments were reviewed. Written consent was obtained. Procedure Type of Study ROYAL procedure:TRANSESOPHAGEAL ECHO (Routine) Indications:TAVR. Clinical History HGB 10.5 HCT 32.3 % GERARDO, A-fib, CHF, CAD, HLD, HTN, CT, PHTN, Severe s/p CABG s/p Coronary stent [...] LVOT CI: 4.53 l/min/m^2 Performing Organization Address City/[facility]/Zipcode Phone Number [facility] ECHO [facility]ART[facility] CPACS Albumin (08/24/2017 1:59 PM CDT) Albumin 4.2 3.5 - 5.0 g/dL [facility] Specimen Blood Performing Organization Address [facility] [facility] Centercode Phone Number [address] [phone] CENTER after 08/21/2017 Insurance Payer Benefit Plan / Subscriber ID Type Phone Address Group MEDICARE MEDICARE PART B xxxxxxxxxxx Medicare BLUE CROSS/BLUE BC[place] INDEMNITY [place] xxxxxxxxxxxx [facility] [phone] [address] [facility] [place] [address] ([place]) [place] [address] Advance Directives For more information, please contact:[address] [phone] Code Status Date Activated Date Inactivated Comments Partial Code 03/04/2018 10:27 AM This code status was determined by: Spouse Drug Protocol After Arrest Occurs? No Mechanical Ventilation with Intubation? Yes Bag/Mask? No Internal/External Pacemaker? No Transfer to Critical Care? Yes Chest Compressions? No Defibrillation/Cardioversion? No Full Code 03/02/2018 2:27 AM 03/04/2018 10:27 AM This code status was determined by: Patient Full Code 09/10/2017 9:28 PM 09/12/2017 4:32 PM This code status was determined by: Patient Full Code 09/10/2017 7:57 AM 09/10/2017 9:28 PM This code status was determined by: Patient Full Code 07/24/2017 5:11 PM 08/07/2017 1:14 PM This code status was determined by: Patient
--- OUTSIDE RECORDS SUMMARY | 2018-08-22 08:25 | XMS REPORT ---
:1930 [facility] Organization [facility] Address [address] [place] [address] Care Team Providers Name Role Phone MIAHANDREA HarrisonSHANTNELSON GONZALEZ Unavailable Unavailable MACARIO CHARLES Unavailable Unavailable JAIRON BALLARD Unavailable Unavailable Problems This patient has no known problems. Allergies, Adverse Reactions, Alerts This patient has no known allergies or adverse reactions. Medications This patient has no known medications. Results Test Description Test Time Test Comments Text Results Atomic Results Result Comments POCT-GLUCOSE METER 2018-03-13 07:50:00 Test Item Value Reference Range Comments POC-GLUCOSE METER (BEAKER) (test 137 mg/dL 70-110 TESTED AT [facility] [address] [facility] rhsq=5683) [facility] [address] BASIC METABOLIC [id number] 06:28:00 Test Item Value Reference Range Comments SODIUM (BEAKER) (test 137 meq/L 136-145 vuxt=495) POTASSIUM (BEAKER) (test 3.7 meq/L 3.5-5.1 gxfg=601) CHLORIDE (BEAKER) (test 104 meq/L 98-107 xcwm=395) CO2 (BEAKER) (test 28 meq/L 22-29 vcpv=750) BLOOD UREA NITROGEN 26 mg/dL 7-21 (BEAKER) (test oajx=439) CREATININE (BEAKER) (test 1.26 mg/dL 0.57-1.25 xqty=084) GLUCOSE RANDOM (BEAKER) 100 mg/dL 70-105 (test xwyw=552) CALCIUM (BEAKER) (test 8.6 mg/dL 8.4-10.2 mjgl=026) EGFR (BEAKER) (test 54 mL/min/1.73 sq m ESTIMATED GFR IS NOT ukmj=3544) ACCURATE CREATININE CLEARANCE IN PREDICTING GLOMERULAR FILTRATION RATE. ESTIMATED GFR IS NOT APPLICABLE FOR DIALYSIS PATIENTS. CBC W/PLT COUNT & AUTO [id number] 06:08:00 Test Item Value Reference Range Comments WHITE BLOOD CELL COUNT (BEAKER) (test urqo=698) 3.4 K/ L 3.5-10.5 RED BLOOD CELL COUNT (BEAKER) (test yjwy=487) 2.25 M/ L 4.63-6.08 HEMOGLOBIN (BEAKER) (test doyo=262) 7.4 GM/DL 13.7-17.5 HEMATOCRIT (BEAKER) (test suex=542) 23.1 % 40.1-51.0 MEAN CORPUSCULAR VOLUME (BEAKER) (test fsbq=807) 102.7 fL 79.0-92.2 MEAN CORPUSCULAR HEMOGLOBIN (BEAKER) (test 32.9 pg 25.7-32.2 qqkq=542) MEAN CORPUSCULAR HEMOGLOBIN CONC (BEAKER) (test 32.0 GM/DL 32.3-36.5 vmre=357) RED CELL DISTRIBUTION WIDTH (BEAKER) (test 13.9 % 11.6-14.4 ghlf=412) PLATELET COUNT (BEAKER) (test gyks=273) 119 K/CU MM 150-450 MEAN PLATELET VOLUME (BEAKER) (test xmpy=444) 10.4 fL 9.4-12.4 NUCLEATED RED BLOOD CELLS (BEAKER) (test 0 /100 WBC 0-0 lwvo=125) NEUTROPHILS RELATIVE PERCENT (BEAKER) (test 59 % woqx=991) LYMPHOCYTES RELATIVE PERCENT (BEAKER) (test 21 % khof=272) MONOCYTES RELATIVE PERCENT (BEAKER) (test 14 % qzrt=923) EOSINOPHILS RELATIVE PERCENT (BEAKER) (test 5 % hpnl=936) BASOPHILS RELATIVE PERCENT (BEAKER) (test 1 % waqq=913) NEUTROPHILS ABSOLUTE COUNT (BEAKER) (test 2.03 K/ L 1.78-5.38 jcks=067) LYMPHOCYTES ABSOLUTE COUNT (BEAKER) (test 0.73 K/ L 1.32-3.57 jpbv=997) MONOCYTES ABSOLUTE COUNT (BEAKER) (test 0.47 K/ L 0.30-0.82 vyid=587) EOSINOPHILS ABSOLUTE COUNT (BEAKER) (test 0.17 K/ L 0.04-0.54 ehup=103) BASOPHILS ABSOLUTE COUNT (BEAKER) (test 0.02 K/ L 0.01-0.08 xtbk=091) IMMATURE GRANULOCYTES-RELATIVE PERCENT (BEAKER) 0 % 0-1 (test ovem=5823) PROTHROMBIN [id number] 05:57:00 Test Item Value Reference Range Comments PROTIME (BEAKER) (test velu=522) 19.3 seconds 11.7-14.7 INR (BEAKER) (test vkko=916) 1.6 <=5.9 RECOMMENDED COUMADIN/WARFARIN INR THERAPY RANGESSTANDARD DOSE: 2.0 - 3.0 Includes: PROPHYLAXIS forvenous thrombosis, systemic embolization; TREATMENT for venous thrombosis and/or pulmonary embolus.HIGH RISK: Target INR is 2.5-3.5 for patients with mechanical heart valves.While on warfarin.POCT-GLUCOSE [id number] 21:28:00 Test Item Value Reference Range Comments POC-GLUCOSE METER (BEAKER) 138 mg/dL 70-110 TESTED AT [address] (test bvot=1969) [facility] [address] POCT-GLUCOSE [id number] 17:49:00 Test Item Value Reference Range Comments POC-GLUCOSE METER (BEAKER) 137 mg/dL 70-110 TESTED AT [address] (test dbpx=5158) [facility] [address] CBC W/PLT COUNT & AUTO [id number] 13:23:00 Test Item Value Reference Range Comments WHITE BLOOD CELL COUNT (BEAKER) (test slxx=517) 3.6 K/ L 3.5-10.5 RED BLOOD CELL COUNT (BEAKER) (test gnoc=546) 2.39 M/ L 4.63-6.08 HEMOGLOBIN (BEAKER) (test jdrk=311) 7.9 GM/DL 13.7-17.5 HEMATOCRIT (BEAKER) (test ykwa=624) 24.9 % 40.1-51.0 MEAN CORPUSCULAR VOLUME (BEAKER) (test bnxv=250) 104.2 fL 79.0-92.2 MEAN CORPUSCULAR HEMOGLOBIN (BEAKER) (test 33.1 pg 25.7-32.2 dxfs=120) MEAN CORPUSCULAR HEMOGLOBIN CONC (BEAKER) (test 31.7 GM/DL 32.3-36.5 xjzl=413) RED CELL DISTRIBUTION WIDTH (BEAKER) (test 13.8 % 11.6-14.4 pkzc=042) PLATELET COUNT (BEAKER) (test mznm=892) 135 K/CU MM 150-450 MEAN PLATELET VOLUME (BEAKER) (test toai=490) 11.0 fL 9.4-12.4 NUCLEATED RED BLOOD CELLS (BEAKER) (test 0 /100 WBC 0-0 ecbn=563) (CELLAVISION MANUAL DIFF)2018-03-12 13:23:00 Test Item Value Reference Range Comments NEUTROPHILS - REL (CELLAVISION)(BEAKER) (test 60 % upcx=5825) LYMPHOCYTES - REL (CELLAVISION)(BEAKER) (test 21 % obav=1103) MONOCYTES - REL (CELLAVISION)(BEAKER) (test 9 % bokg=5317) EOSINOPHILS - REL (CELLAVISION)(BEAKER) (test 5 % mgbx=8536) BASOPHILS - REL (CELLAVISION)(BEAKER) (test 1 % cknf=0753) BANDS - REL (CELLAVISION)(BEAKER) (test 2 % 0-10 rdut=9173) ATYPICAL LYMPHOCYTES - REL (CELLAVISION)(BEAKER) 2 % 0-0 (test dnhy=9972) NEUTROPHILS - ABS (CELLAVISION)(BEAKER) (test 2.16 K/ul 1.78-5.38 ahnx=6778) LYMPHOCYTES - ABS (CELLAVISION)(BEAKER) (test 0.76 K/ul 1.32-3.57 vbyd=6630) MONOCYTES - ABS (CELLAVISION)(BEAKER) (test 0.32 K/uL 0.30-0.82 snog=2129) EOSINOPHILS - ABS (CELLAVISION)(BEAKER) (test 0.18 K/uL 0.04-0.54 earp=3754) BASOPHILS - ABS (CELLAVISION)(BEAKER) (test 0.04 K/uL 0.01-0.08 fbhb=6858) BANDS - ABS (CELLAVISION)(BEAKER) (test 0.07 K/uL 0.00-0.80 uqnp=4254) ATYPICAL LYMPHOCYTES - ABS (CELLAVISION)(BEAKER) 0.07 K/uL 0.00-0.00 (test hcvl=2402) TOTAL COUNTED (BEAKER) (test nqmy=0514) 100 WBC MORPHOLOGY (BEAKER) (test lkxi=865) Normal PLT MORPHOLOGY (BEAKER) (test jxmb=237) Normal POIKILOCYTES (BEAKER) (test uffk=071) 2+ moderate ARTIFACT (CELLAVISION)(BEAKER) (test jojy=4008) Present PLATELET CONCENTRATION (CELLAVISION)(BEAKER) Decreased (test frjk=0997) Received comment: User comments: Slide comments:POCT-GLUCOSE [id number] 11: 08:00 Test Item Value Reference Range Comments POC-GLUCOSE METER (BEAKER) 184 mg/dL 70-110 TESTED AT [facility] [address] [facility] (test jwxl=4722) [facility] [address] BASIC METABOLIC [id number] 06:30:00 Test Item Value Reference Range Comments SODIUM (BEAKER) (test 139 meq/L 136-145 lxru=567) POTASSIUM (BEAKER) (test 3.8 meq/L 3.5-5.1 mctm=244) CHLORIDE (BEAKER) (test 105 meq/L 98-107 wtim=186) CO2 (BEAKER) (test 26 meq/L 22-29 ejeh=549) BLOOD UREA NITROGEN 27 mg/dL 7-21 (BEAKER) (test xmhw=915) CREATININE (BEAKER) (test 1.25 mg/dL 0.57-1.25 ihcu=046) GLUCOSE RANDOM (BEAKER) 98 mg/dL 70-105 (test cirs=111) CALCIUM (BEAKER) (test 9.0 mg/dL 8.4-10.2 ulxa=106) EGFR (BEAKER) (test 55 mL/min/1.73 sq m ESTIMATED GFR IS NOT lele=9413) ACCURATE CREATININE CLEARANCE IN PREDICTING GLOMERULAR FILTRATION RATE. ESTIMATED GFR IS NOT APPLICABLE FOR DIALYSIS PATIENTS. PROTHROMBIN TIME/[id number] 06:25:00 Test Item Value Reference Range Comments PROTIME (BEAKER) (test ydof=351) 16.7 seconds 11.7-14.7 INR (BEAKER) (test lzue=395) 1.3 <=5.9 RECOMMENDED COUMADIN/WARFARIN INR THERAPY RANGESSTANDARD DOSE: 2.0 - 3.0 Includes: PROPHYLAXIS forvenous thrombosis, systemic embolization; TREATMENT for venous thrombosis and/or pulmonary embolus.HIGH RISK: Target INR is 2.5-3.5 for patients with mechanical heart valves.While on warfarin.POCT-GLUCOSE [id number] 21:14:00 Test Item Value Reference Range Comments POC-GLUCOSE METER (BEAKER) 129 mg/dL 70-110 TESTED AT [address] (test lsdm=9228) [facility] [address] POCT-GLUCOSE [id number] 17:06:00 Test Item Value Reference Range Comments POC-GLUCOSE METER (BEAKER) 155 mg/dL 70-110 TESTED AT [address] (test qwlg=5367) [place] [id number] CBC W/PLT COUNT & AUTO [id number] 13:39:00 Test Item Value Reference Range Comments WHITE BLOOD CELL COUNT (BEAKER) (test mnwe=907) 3.9 K/ L 3.5-10.5 RED BLOOD CELL COUNT (BEAKER) (test ikdo=109) 2.27 M/ L 4.63-6.08 HEMOGLOBIN (BEAKER) (test bqoj=188) 7.5 GM/DL 13.7-17.5 HEMATOCRIT (BEAKER) (test zoid=448) 23.8 % 40.1-51.0 MEAN CORPUSCULAR VOLUME (BEAKER) (test qrgn=959) 104.8 fL 79.0-92.2 MEAN CORPUSCULAR HEMOGLOBIN (BEAKER) (test 33.0 pg 25.7-32.2 tnss=912) MEAN CORPUSCULAR HEMOGLOBIN CONC (BEAKER) (test 31.5 GM/DL 32.3-36.5 svpo=460) RED CELL DISTRIBUTION WIDTH (BEAKER) (test 13.9 % 11.6-14.4 nttn=193) PLATELET COUNT (BEAKER) (test rrfp=446) 116 K/CU MM 150-450 MEAN PLATELET VOLUME (BEAKER) (test udvo=886) 11.2 fL 9.4-12.4 NUCLEATED RED BLOOD CELLS (BEAKER) (test 0 /100 WBC 0-0 holh=063) (CELLAVISION MANUAL DIFF)2018-03-11 13:39:00 Test Item Value Reference Range Comments NEUTROPHILS - REL (CELLAVISION)(BEAKER) (test 64 % lapc=7872) LYMPHOCYTES - REL (CELLAVISION)(BEAKER) (test 16 % ctzm=4168) MONOCYTES - REL (CELLAVISION)(BEAKER) (test 7 % kmgw=4836) EOSINOPHILS - REL (CELLAVISION)(BEAKER) (test 4 % nxre=1777) BASOPHILS - REL (CELLAVISION)(BEAKER) (test 4 % dbff=6360) BANDS - REL (CELLAVISION)(BEAKER) (test 3 % 0-10 dbdm=1290) ATYPICAL LYMPHOCYTES - REL (CELLAVISION)(BEAKER) 2 % 0-0 (test ddwj=0627) NEUTROPHILS - ABS (CELLAVISION)(BEAKER) (test 2.50 K/ul 1.78-5.38 jwwz=6371) LYMPHOCYTES - ABS (CELLAVISION)(BEAKER) (test 0.62 K/ul 1.32-3.57 gehz=6443) MONOCYTES - ABS (CELLAVISION)(BEAKER) (test 0.27 K/uL 0.30-0.82 eazz=2157) EOSINOPHILS - ABS (CELLAVISION)(BEAKER) (test 0.16 K/uL 0.04-0.54 salb=4670) BASOPHILS - ABS (CELLAVISION)(BEAKER) (test 0.16 K/uL 0.01-0.08 mvjc=5807) BANDS - ABS (CELLAVISION)(BEAKER) (test 0.12 K/uL 0.00-0.80 ybct=4829) ATYPICAL LYMPHOCYTES - ABS (CELLAVISION)(BEAKER) 0.08 K/uL 0.00-0.00 (test fofg=1776) TOTAL COUNTED (BEAKER) (test nbdg=2652) 100 MANUAL NRBC PER 100 CELLS (BEAKER) (test 2 /100 WBC 0-0 uqev=6845) SMUDGE CELLS (BEAKER) (test dqhe=2051) Present GIANT PLATELETS (BEAKER) (test xxns=165) Present POIKILOCYTES (BEAKER) (test gmtb=243) 2+ moderate SCHISTOCYTES (BEAKER) (test fmhk=824) 1+ few OVALOCYTES (BEAKER) (test tmsk=355) 1+ few MATTHEW CELLS (BEAKER) (test bcik=348) 1+ few PLATELET CONCENTRATION (CELLAVISION)(BEAKER) Adequate (test gdow=9942) Received comment: User comments: Slide comments:POCT-GLUCOSE [id number] 11: 37:00 Test Item Value Reference Range Comments POC-GLUCOSE METER (BEAKER) 140 mg/dL 70-110 TESTED AT [facility] [address] [facility] (test khbo=9461) [place] [id number] POCT-GLUCOSE [id number] 07:55:00 Test Item Value Reference Range Comments POC-GLUCOSE METER (BEAKER) 139 mg/dL 70-110 TESTED AT [facility] [address] [facility] (test qsje=2741) [place] [id number] BASIC METABOLIC [id number] 05:47:00 Test Item Value Reference Range Comments SODIUM (BEAKER) (test 138 meq/L 136-145 xwur=651) POTASSIUM (BEAKER) (test 3.7 meq/L 3.5-5.1 lvih=829) CHLORIDE (BEAKER) (test 105 meq/L 98-107 modm=019) CO2 (BEAKER) (test 27 meq/L 22-29 urbq=853) BLOOD UREA NITROGEN 32 mg/dL 7-21 (BEAKER) (test xydm=569) CREATININE (BEAKER) (test 1.14 mg/dL 0.57-1.25 etdm=295) GLUCOSE RANDOM (BEAKER) 109 mg/dL 70-105 (test qgur=960) CALCIUM (BEAKER) (test 8.7 mg/dL 8.4-10.2 ojms=105) EGFR (BEAKER) (test 61 mL/min/1.73 sq m ESTIMATED GFR IS NOT odfj=7012) ACCURATE CREATININE CLEARANCE IN PREDICTING GLOMERULAR FILTRATION RATE. ESTIMATED GFR IS NOT APPLICABLE FOR DIALYSIS PATIENTS. PROTHROMBIN TIME/[id number] 05:28:00 Test Item Value Reference Range Comments PROTIME (BEAKER) (test ljhy=151) 15.7 seconds 11.7-14.7 INR (BEAKER) (test jrwv=482) 1.2 <=5.9 RECOMMENDED COUMADIN/WARFARIN INR THERAPY RANGESSTANDARD DOSE: 2.0 - 3.0 Includes: PROPHYLAXIS forvenous thrombosis, systemic embolization; TREATMENT for venous thrombosis and/or pulmonary embolus.HIGH RISK: Target INR is 2.5-3.5 for patients with mechanical heart valves.While on warfarin.POCT-GLUCOSE [id number] 20:37:00 Test Item Value Reference Range Comments POC-GLUCOSE METER (BEAKER) 146 mg/dL 70-110 TESTED AT [facility] [address] [facility] (test negc=7247) [facility] [address] POCT-GLUCOSE [id number] 17:28:00 Test Item Value Reference Range Comments POC-GLUCOSE METER (BEAKER) 156 mg/dL 70-110 TESTED AT [place] [id number] [facility] (test ojhr=2108) [facility] [address] CBC W/PLT COUNT & AUTO [id number] 13:53:00 Test Item Value Reference Range Comments WHITE BLOOD CELL COUNT (BEAKER) (test nshj=253) 4.1 K/ L 3.5-10.5 RED BLOOD CELL COUNT (BEAKER) (test wixy=241) 2.37 M/ L 4.63-6.08 HEMOGLOBIN (BEAKER) (test uapj=749) 7.8 GM/DL 13.7-17.5 HEMATOCRIT (BEAKER) (test qmwn=254) 24.6 % 40.1-51.0 MEAN CORPUSCULAR VOLUME (BEAKER) (test dsgo=797) 103.8 fL 79.0-92.2 MEAN CORPUSCULAR HEMOGLOBIN (BEAKER) (test 32.9 pg 25.7-32.2 joqm=162) MEAN CORPUSCULAR HEMOGLOBIN CONC (BEAKER) (test 31.7 GM/DL 32.3-36.5 icdk=649) RED CELL DISTRIBUTION WIDTH (BEAKER) (test 14.2 % 11.6-14.4 xbxe=474) PLATELET COUNT (BEAKER) (test rlcd=637) 123 K/CU MM 150-450 MEAN PLATELET VOLUME (BEAKER) (test qrwj=255) 11.1 fL 9.4-12.4 NUCLEATED RED BLOOD CELLS (BEAKER) (test 0 /100 WBC 0-0 teqz=505) (CELLAVISION MANUAL DIFF)2018-03-10 13:53:00 Test Item Value Reference Range Comments NEUTROPHILS - REL (CELLAVISION)(BEAKER) (test 70 % teho=3844) LYMPHOCYTES - REL (CELLAVISION)(BEAKER) (test 19 % mphh=4024) MONOCYTES - REL (CELLAVISION)(BEAKER) (test 8 % enqy=6723) BANDS - REL (CELLAVISION)(BEAKER) (test txgx=6506) 3 % 0-10 NEUTROPHILS - ABS (CELLAVISION)(BEAKER) (test 2.87 K/ul 1.78-5.38 atki=4026) LYMPHOCYTES - ABS (CELLAVISION)(BEAKER) (test 0.78 K/ul 1.32-3.57 nikb=9773) MONOCYTES - ABS (CELLAVISION)(BEAKER) (test 0.33 K/uL 0.30-0.82 izea=8794) BANDS - ABS (CELLAVISION)(BEAKER) (test zdoa=8224) 0.12 K/uL 0.00-0.80 TOTAL COUNTED (BEAKER) (test gwcn=9203) 100 SMUDGE CELLS (BEAKER) (test frwv=5274) Present GIANT PLATELETS (BEAKER) (test wkij=389) Present ANISOCYTOSIS (BEAKER) (test pfrk=084) 1+ few MICROCYTES (BEAKER) (test jimh=968) 1+ few POIKILOCYTES (BEAKER) (test jjvr=769) 1+ few SCHISTOCYTES (BEAKER) (test bldw=483) 1+ few PLATELET CONCENTRATION (CELLAVISION)(BEAKER) (test Adequate ywcp=2847) Received comment: User comments: Slide comments:POCT-GLUCOSE [id number] 12: 04:00 Test Item Value Reference Range Comments POC-GLUCOSE METER (BEAKER) 182 mg/dL 70-110 TESTED AT [address] (test rkpj=5732) [place] [id number] POCT-GLUCOSE [id number] 08:09:00 Test Item Value Reference Range Comments POC-GLUCOSE METER (BEAKER) 111 mg/dL 70-110 TESTED AT [address] (test gdev=3325) [facility] [address] BASIC METABOLIC [id number] 07:02:00 Test Item Value Reference Range Comments SODIUM (BEAKER) (test 140 meq/L 136-145 bnfc=532) POTASSIUM (BEAKER) (test 4.1 meq/L 3.5-5.1 plwl=199) CHLORIDE (BEAKER) (test 106 meq/L 98-107 cpms=184) CO2 (BEAKER) (test 28 meq/L 22-29 lxui=155) BLOOD UREA NITROGEN 31 mg/dL 7-21 (BEAKER) (test wjhv=311) CREATININE (BEAKER) (test 1.14 mg/dL 0.57-1.25 zghh=454) GLUCOSE RANDOM (BEAKER) 101 mg/dL 70-105 (test uxiw=455) CALCIUM (BEAKER) (test 8.8 mg/dL 8.4-10.2 kffp=833) EGFR (BEAKER) (test 61 mL/min/1.73 sq m ESTIMATED GFR IS NOT aoit=7330) ACCURATE CREATININE CLEARANCE IN PREDICTING GLOMERULAR FILTRATION RATE. ESTIMATED GFR IS NOT APPLICABLE FOR DIALYSIS PATIENTS. B-TYPE NATRIURETIC FACTOR (BNP)2018-03-10 06:49:00 Test Item Value Reference Range Comments B-TYPE NATRIURETIC PEPTIDE (BEAKER) (test 132 pg/mL 0-100 kwrc=381) PROTHROMBIN TIME/[id number] 06:39:00 Test Item Value Reference Range Comments PROTIME (BEAKER) (test egnm=735) 15.3 seconds 11.7-14.7 INR (BEAKER) (test riem=319) 1.2 <=5.9 RECOMMENDED COUMADIN/WARFARIN INR THERAPY RANGESSTANDARD DOSE: 2.0 - 3.0 Includes: PROPHYLAXIS forvenous thrombosis, systemic embolization; TREATMENT for venous thrombosis and/or pulmonary embolus.HIGH RISK: Target INR is 2.5-3.5 for patients with mechanical heart valves.While on warfarin.POCT-GLUCOSE [id number] 22:04:00 Test Item Value Reference Range Comments POC-GLUCOSE METER (BEAKER) 162 mg/dL 70-110 TESTED AT [address] (test hgaj=0252) [facility] [address] POCT-GLUCOSE [id number] 18:15:00 Test Item Value Reference Range Comments POC-GLUCOSE METER (BEAKER) 127 mg/dL 70-110 TESTED AT [facility] [address] [place] [address] (test srhd=3845) [facility] [address] BASIC METABOLIC [id number] 08:18:00 Test Item Value Reference Range Comments SODIUM (BEAKER) (test 144 meq/L 136-145 inkb=695) POTASSIUM (BEAKER) (test 4.1 meq/L 3.5-5.1 wmqn=371) CHLORIDE (BEAKER) (test 112 meq/L 98-107 otzt=217) CO2 (BEAKER) (test 27 meq/L 22-29 cqyu=604) BLOOD UREA NITROGEN 30 mg/dL 7-21 (BEAKER) (test rsgy=491) CREATININE (BEAKER) (test 1.02 mg/dL 0.57-1.25 odbj=974) GLUCOSE RANDOM (BEAKER) 110 mg/dL 70-105 (test zsgn=302) CALCIUM (BEAKER) (test 8.4 mg/dL 8.4-10.2 zhzk=609) EGFR (BEAKER) (test 69 mL/min/1.73 sq m ESTIMATED GFR IS NOT vojf=0007) ACCURATE CREATININE CLEARANCE IN PREDICTING GLOMERULAR FILTRATION RATE. ESTIMATED GFR IS NOT APPLICABLE FOR DIALYSIS PATIENTS. [id number] 08:18:00 Test Item Value Reference Range Comments MAGNESIUM (BEAKER) (test fvsr=649) 2.2 mg/dL 1.6-2.6 CBC (HEMOGRAM ONLY)2018-03-09 08:03:00 Test Item Value Reference Range Comments WHITE BLOOD CELL COUNT (BEAKER) (test dhhe=748) 4.3 K/ L 3.5-10.5 RED BLOOD CELL COUNT (BEAKER) (test kvjr=593) 2.36 M/ L 4.63-6.08 HEMOGLOBIN (BEAKER) (test prhz=809) 7.9 GM/DL 13.7-17.5 HEMATOCRIT (BEAKER) (test lpgs=525) 24.9 % 40.1-51.0 MEAN CORPUSCULAR VOLUME (BEAKER) (test dnnq=948) 105.5 fL 79.0-92.2 MEAN CORPUSCULAR HEMOGLOBIN (BEAKER) (test 33.5 pg 25.7-32.2 kxkj=688) MEAN CORPUSCULAR HEMOGLOBIN CONC (BEAKER) (test 31.7 GM/DL 32.3-36.5 ozib=534) RED CELL DISTRIBUTION WIDTH (BEAKER) (test 14.3 % 11.6-14.4 pvws=371) PLATELET COUNT (BEAKER) (test xnpp=073) 113 K/CU MM 150-450 MEAN PLATELET VOLUME (BEAKER) (test ayzr=556) 11.4 fL 9.4-12.4 NUCLEATED RED BLOOD CELLS (BEAKER) (test 0 /100 WBC 0-0 dnek=083) POCT-GLUCOSE [id number] 05:58:00 Test Item Value Reference Range Comments POC-GLUCOSE METER (BEAKER) 153 mg/dL 70-110 TESTED AT [address] (test jnfb=8481) [place] [address] POCT-GLUCOSE [id number] 23:35:00 Test Item Value Reference Range Comments POC-GLUCOSE METER (BEAKER) 170 mg/dL 70-110 TESTED AT [address] (test zvca=6015) [place] [address] POCT-GLUCOSE [id number] 17:28:00 Test Item Value Reference Range Comments POC-GLUCOSE METER (BEAKER) 155 mg/dL 70-110 TESTED AT [address] (test mjkf=2717) [place] [address] HEMOGLOBIN AND [id number] 17:16:00 Test Item Value Reference Range Comments HEMOGLOBIN (BEAKER) (test tjxs=849) 7.9 GM/DL 13.7-17.5 HEMATOCRIT (BEAKER) (test brma=165) 24.9 % 40.1-51.0 BLOOD [id number] 13:01:00 Test Item Value Reference Range Comments CULTURE (BEAKER) (test gnsv=3685) No growth in 5 days BLOOD [id number] 13:00:00 Test Item Value Reference Range Comments CULTURE (BEAKER) (test ktpu=4829) No growth in 5 days POCT-GLUCOSE [id number] 11:55:00 Test Item Value Reference Range Comments POC-GLUCOSE METER (BEAKER) 157 mg/dL 70-110 TESTED AT [address] (test kifb=7412) [place] [address] ANTI-MITOCHONDRIAL AB, REFLEX TO [id number] 10:22:00 Test Item Value Reference Range Comments SCAN RESULT (test zhtp=[id number]) POCT-GLUCOSE [id number] 05:46:00 Test Item Value Reference Range Comments POC-GLUCOSE METER (BEAKER) 161 mg/dL 70-110 TESTED AT [address] (test lejr=6620) [place] [address] HEPATIC FUNCTION [id number] 04:08:00 Test Item Value Reference Range Comments TOTAL PROTEIN (BEAKER) (test ewkd=168) 5.6 gm/dL 6.0-8.3 ALBUMIN (BEAKER) (test yxew=6401) 3.0 g/dL 3.5-5.0 BILIRUBIN TOTAL (BEAKER) (test pxjn=053) 1.7 mg/dL 0.2-1.2 BILIRUBIN DIRECT (BEAKER) (test wrjw=661) 0.7 mg/dL 0.1-0.5 ALKALINE PHOSPHATASE (BEAKER) (test tcvp=133) 117 U/L 40-150 AST (SGOT) (BEAKER) (test wfmv=506) 52 U/L 5-34 ALT (SGPT) (BEAKER) (test qkzu=231) 30 U/L 6-55 [id number] 04:03:00 Test Item Value Reference Range Comments PHOSPHORUS (BEAKER) (test hrji=202) 2.4 mg/dL 2.3-4.7 Check Serum Phosphorus level 4 hours after IV phosphorus replacement or 8 hours after PO replacementcompleted.[id number] 04:03:00 Test Item Value Reference Range Comments MAGNESIUM (BEAKER) (test qpzg=772) 2.5 mg/dL 1.6-2.6 Check Serum Phosphorus level 4 hours after IV phosphorus replacement or 8 hours after PO replacementcompleted.BASIC METABOLIC [id number] 04:03:00 Test Item Value Reference Range Comments SODIUM (BEAKER) (test 145 meq/L 136-145 njsz=675) POTASSIUM (BEAKER) (test 4.2 meq/L 3.5-5.1 erzg=933) CHLORIDE (BEAKER) (test 116 meq/L 98-107 gbiz=303) CO2 (BEAKER) (test 24 meq/L 22-29 damq=598) BLOOD UREA NITROGEN 24 mg/dL 7-21 (BEAKER) (test vsqn=031) CREATININE (BEAKER) (test 1.01 mg/dL 0.57-1.25 jtnc=826) GLUCOSE RANDOM (BEAKER) 138 mg/dL 70-105 (test zowl=624) CALCIUM (BEAKER) (test 8.7 mg/dL 8.4-10.2 jbze=781) EGFR (BEAKER) (test 70 mL/min/1.73 sq m ESTIMATED GFR IS NOT slan=8451) ACCURATE CREATININE CLEARANCE IN PREDICTING GLOMERULAR FILTRATION RATE. ESTIMATED GFR IS NOT APPLICABLE FOR DIALYSIS PATIENTS. Check Serum Phosphorus level 4 hours after IV phosphorus replacement or 8 hours after PO replacementcompleted.CBC W/PLT COUNT & AUTO [id number] 03:47:00 Test Item Value Reference Range Comments WHITE BLOOD CELL COUNT (BEAKER) (test gvsa=139) 4.5 K/ L 3.5-10.5 RED BLOOD CELL COUNT (BEAKER) (test zcon=167) 2.21 M/ L 4.63-6.08 HEMOGLOBIN (BEAKER) (test yxvz=732) 7.2 GM/DL 13.7-17.5 HEMATOCRIT (BEAKER) (test uwfa=702) 23.5 % 40.1-51.0 MEAN CORPUSCULAR VOLUME (BEAKER) (test bzfl=392) 106.3 fL 79.0-92.2 MEAN CORPUSCULAR HEMOGLOBIN (BEAKER) (test 32.6 pg 25.7-32.2 swml=351) MEAN CORPUSCULAR HEMOGLOBIN CONC (BEAKER) (test 30.6 GM/DL 32.3-36.5 mqnf=098) RED CELL DISTRIBUTION WIDTH (BEAKER) (test 14.7 % 11.6-14.4 nlnw=411) PLATELET COUNT (BEAKER) (test yras=733) 94 K/CU MM 150-450 MEAN PLATELET VOLUME (BEAKER) (test sxvz=734) 11.1 fL 9.4-12.4 NUCLEATED RED BLOOD CELLS (BEAKER) (test 0 /100 WBC 0-0 nvhi=418) NEUTROPHILS RELATIVE PERCENT (BEAKER) (test 62 % sknl=203) LYMPHOCYTES RELATIVE PERCENT (BEAKER) (test 18 % byeb=417) MONOCYTES RELATIVE PERCENT (BEAKER) (test 12 % fvhv=299) EOSINOPHILS RELATIVE PERCENT (BEAKER) (test 8 % pvyl=175) BASOPHILS RELATIVE PERCENT (BEAKER) (test 0 % advr=143) NEUTROPHILS ABSOLUTE COUNT (BEAKER) (test 2.80 K/ L 1.78-5.38 docq=551) LYMPHOCYTES ABSOLUTE COUNT (BEAKER) (test 0.81 K/ L 1.32-3.57 ycii=757) MONOCYTES ABSOLUTE COUNT (BEAKER) (test mmfa=748) 0.52 K/ L 0.30-0.82 EOSINOPHILS ABSOLUTE COUNT (BEAKER) (test 0.37 K/ L 0.04-0.54 yjxp=093) BASOPHILS ABSOLUTE COUNT (BEAKER) (test yesb=772) 0.02 K/ L 0.01-0.08 IMMATURE GRANULOCYTES-RELATIVE PERCENT (BEAKER) 0 % 0-1 (test uxht=1097) HEMOGLOBIN AND [id number] 03:46:00 Test Item Value Reference Range Comments HEMOGLOBIN (BEAKER) (test xjco=477) 7.7 GM/DL 13.7-17.5 HEMATOCRIT (BEAKER) (test sxrq=375) 24.8 % 40.1-51.0 POCT-GLUCOSE [id number] 01:04:00 Test Item Value Reference Range Comments POC-GLUCOSE METER (BEAKER) 150 mg/dL 70-110 TESTED AT [address] (test bnja=0140) [place] [address] SPUTUM CULTURE + GRAM [id number] 19:57:00 Test Item Value Reference Range Comments CULTURE (BEAKER) (test No growth ivbi=1398) GRAM STAIN RESULT (BEAKER) 4+ WBCs (test trjx=1773) GRAM STAIN RESULT (BEAKER) 0-5 epithelial cells (test gcoh=24407) GRAM STAIN RESULT (BEAKER) <1+ gram positive cocci in (test ydii=12171) pairs HEMOGLOBIN AND [id number] 16:09:00 Test Item Value Reference Range Comments HEMOGLOBIN (BEAKER) (test qmoi=136) 7.8 GM/DL 13.7-17.5 HEMATOCRIT (BEAKER) (test jwhp=691) 25.1 % 40.1-51.0 POCT-GLUCOSE [id number] 16:06:00 Test Item Value Reference Range Comments POC-GLUCOSE METER (BEAKER) 143 mg/dL 70-110 TESTED AT [address] (test ofsf=8786) [place] [address] POCT-GLUCOSE [id number] 11:55:00 Test Item Value Reference Range Comments POC-GLUCOSE METER (BEAKER) 148 mg/dL 70-110 TESTED AT [address] (test xllf=0905) [place] [address] RAD, ABDOMEN/KUB, 1 VIEW [id number] 10:26:00Reason for exam:->Check position of NGTFINAL REPORT ONE VIEW ABDOMEN HISTORY: Feeding tube placement COMPARISON: 03/03/2018 FINDINGS: Single supine AP image of the abdomen was obtained. Feeding tube passes below the diaphragm, with the tip in the region of the gastric body. There is gas in several nondilated loops of large and small intestine. There are surgical clips in the abdomen bilaterally. Signed: Rehana Duval MDReport Verified Date/Time: 03/07/2018 10:26:54 Reading Location: [address] Transitional Reading Room HEPATIC FUNCTION [id number] 09:14 :00 Test Item Value Reference Range Comments TOTAL PROTEIN (BEAKER) (test ilec=145) 5.5 gm/dL 6.0-8.3 ALBUMIN (BEAKER) (test ocwk=9226) 2.9 g/dL 3.5-5.0 BILIRUBIN TOTAL (BEAKER) (test dxok=671) 1.8 mg/dL 0.2-1.2 BILIRUBIN DIRECT (BEAKER) (test oixp=365) 0.7 mg/dL 0.1-0.5 ALKALINE PHOSPHATASE (BEAKER) (test esry=814) 95 U/L 40-150 AST (SGOT) (BEAKER) (test nvac=520) 25 U/L 5-34 ALT (SGPT) (BEAKER) (test qtmk=444) 15 U/L 6-55 CBC W/PLT COUNT & AUTO [id number] 06:53:00 Test Item Value Reference Range Comments WHITE BLOOD CELL COUNT 4.6 K/ L 3.5-10.5 (BEAKER) (test xpcf=729) RED BLOOD CELL COUNT (BEAKER) 2.46 M/ L 4.63-6.08 (test ewbl=123) HEMOGLOBIN (BEAKER) (test 8.0 GM/DL 13.7-17.5 iblm=428) HEMATOCRIT (BEAKER) (test 26.1 % 40.1-51.0 ngxe=708) MEAN CORPUSCULAR VOLUME 106.1 fL 79.0-92.2 Discordant result compared (BEAKER) (test rfzq=948) to previous result; clinical correlation required. MEAN CORPUSCULAR HEMOGLOBIN 32.5 pg 25.7-32.2 (BEAKER) (test gsln=760) MEAN CORPUSCULAR HEMOGLOBIN 30.7 GM/DL 32.3-36.5 CONC (BEAKER) (test qjgh=775) RED CELL DISTRIBUTION WIDTH 15.1 % 11.6-14.4 (BEAKER) (test amcv=484) PLATELET COUNT (BEAKER) (test 96 K/CU MM 150-450 yhcq=172) MEAN PLATELET VOLUME (BEAKER) 10.6 fL 9.4-12.4 (test jppm=668) NUCLEATED RED BLOOD CELLS 0 /100 WBC 0-0 (BEAKER) (test evbq=804) NEUTROPHILS RELATIVE PERCENT 67 % (BEAKER) (test kayn=302) LYMPHOCYTES RELATIVE PERCENT 14 % (BEAKER) (test ohhm=030) MONOCYTES RELATIVE PERCENT 12 % (BEAKER) (test xerx=528) EOSINOPHILS RELATIVE PERCENT 6 % (BEAKER) (test tmng=946) BASOPHILS RELATIVE PERCENT 0 % (BEAKER) (test owma=835) NEUTROPHILS ABSOLUTE COUNT 3.08 K/ L 1.78-5.38 (BEAKER) (test wprj=234) LYMPHOCYTES ABSOLUTE COUNT 0.66 K/ L 1.32-3.57 (BEAKER) (test xwqv=202) MONOCYTES ABSOLUTE COUNT 0.55 K/ L 0.30-0.82 (BEAKER) (test coll=538) EOSINOPHILS ABSOLUTE COUNT 0.28 K/ L 0.04-0.54 (BEAKER) (test lraq=994) BASOPHILS ABSOLUTE COUNT 0.01 K/ L 0.01-0.08 (BEAKER) (test rnjk=387) IMMATURE GRANULOCYTES-RELATIVE 0 % 0-1 PERCENT (BEAKER) (test lbil=5203) POCT-GLUCOSE [id number] 06:23:00 Test Item Value Reference Range Comments POC-GLUCOSE METER (BEAKER) 125 mg/dL 70-110 TESTED AT [facility] [address] [facility] (test cuvd=8701) [facility] [address] [id number] 05:53:00 Test Item Value Reference Range Comments PHOSPHORUS (BEAKER) (test cwml=360) 2.7 mg/dL 2.3-4.7 Check Serum Phosphorus level 4 hours after IV phosphorus replacement or 8 hours after PO replacementcompleted.[id number] 05:53:00 Test Item Value Reference Range Comments MAGNESIUM (BEAKER) (test uycr=385) 2.6 mg/dL 1.6-2.6 Check Serum Phosphorus level 4 hours after IV phosphorus replacement or 8 hours after PO replacementcompleted.BASIC METABOLIC [id number] 05:53:00 Test Item Value Reference Range Comments SODIUM (BEAKER) (test 146 meq/L 136-145 omrk=118) POTASSIUM (BEAKER) (test 4.2 meq/L 3.5-5.1 rxkv=583) CHLORIDE (BEAKER) (test 119 meq/L 98-107 frdl=325) CO2 (BEAKER) (test 23 meq/L 22-29 ktwt=196) BLOOD UREA NITROGEN 20 mg/dL 7-21 (BEAKER) (test kuna=229) CREATININE (BEAKER) (test 0.93 mg/dL 0.57-1.25 uxtf=948) GLUCOSE RANDOM (BEAKER) 121 mg/dL 70-105 (test ynlt=123) CALCIUM (BEAKER) (test 8.6 mg/dL 8.4-10.2 czcd=409) EGFR (BEAKER) (test 77 mL/min/1.73 sq m ESTIMATED GFR IS NOT tgwf=6768) ACCURATE CREATININE CLEARANCE IN PREDICTING GLOMERULAR FILTRATION RATE. ESTIMATED GFR IS NOT APPLICABLE FOR DIALYSIS PATIENTS. Check Serum Phosphorus level 4 hours after IV phosphorus replacement or 8 hours after PO replacementcompleted.HEMOGLOBIN AND [id number] 05:29:00 Test Item Value Reference Range Comments HEMOGLOBIN (BEAKER) (test upkq=528) 8.0 GM/DL 13.7-17.5 HEMATOCRIT (BEAKER) (test cyny=606) 26.1 % 40.1-51.0 HEMOGLOBIN AND [id number] 23:58:00 Test Item Value Reference Range Comments HEMOGLOBIN (BEAKER) (test djty=156) 6.8 GM/DL 13.7-17.5 HEMATOCRIT (BEAKER) (test abpe=362) 22.5 % 40.1-51.0 MRSA [id number] 23:57:00 Test Item Value Reference Range Comments CULTURE (BEAKER) (test aczq=0612) No MRSA isolated POCT-GLUCOSE [id number] 22:48:00 Test Item Value Reference Range Comments POC-GLUCOSE METER (BEAKER) 168 mg/dL 70-110 TESTED AT [address] (test tsqy=0472) [place] [id number] POCT-GLUCOSE [id number] 18:01:00 Test Item Value Reference Range Comments POC-GLUCOSE METER (BEAKER) 162 mg/dL 70-110 TESTED AT [address] (test lpmo=7899) [place] [address] HEMOGLOBIN AND [id number] 12:49:00 Test Item Value Reference Range Comments HEMOGLOBIN (BEAKER) (test uolv=939) 7.4 GM/DL 13.7-17.5 HEMATOCRIT (BEAKER) (test zvws=245) 23.9 % 40.1-51.0 STOOL CULTURE + SHIGA [id number] 10:14:00 Test Item Value Reference Range Comments CULTURE (BEAKER) (test No Salmonella, Shigella or bztu=4355) Campylobacter isolated POCT-GLUCOSE [id number] 09:55:00 Test Item Value Reference Range Comments POC-GLUCOSE METER (BEAKER) 143 mg/dL 70-110 TESTED AT [address] (test rbzw=1343) [place] [address] CBC W/PLT COUNT & AUTO [id number] 07:15:00 Test Item Value Reference Range Comments WHITE BLOOD CELL COUNT (BEAKER) (test lhhl=478) 4.5 K/ L 3.5-10.5 RED BLOOD CELL COUNT (BEAKER) (test inom=241) 2.16 M/ L 4.63-6.08 HEMOGLOBIN (BEAKER) (test iizl=983) 7.1 GM/DL 13.7-17.5 HEMATOCRIT (BEAKER) (test okwl=688) 23.8 % 40.1-51.0 MEAN CORPUSCULAR VOLUME (BEAKER) (test lefh=275) 110.2 fL 79.0-92.2 MEAN CORPUSCULAR HEMOGLOBIN (BEAKER) (test 32.9 pg 25.7-32.2 biuj=530) MEAN CORPUSCULAR HEMOGLOBIN CONC (BEAKER) (test 29.8 GM/DL 32.3-36.5 kckh=147) RED CELL DISTRIBUTION WIDTH (BEAKER) (test 14.4 % 11.6-14.4 nxuu=406) PLATELET COUNT (BEAKER) (test boag=134) 93 K/CU MM 150-450 MEAN PLATELET VOLUME (BEAKER) (test qehu=303) 10.9 fL 9.4-12.4 NUCLEATED RED BLOOD CELLS (BEAKER) (test 0 /100 WBC 0-0 jpjc=085) NEUTROPHILS RELATIVE PERCENT (BEAKER) (test 66 % rbpe=338) LYMPHOCYTES RELATIVE PERCENT (BEAKER) (test 14 % uegv=954) MONOCYTES RELATIVE PERCENT (BEAKER) (test 10 % nsln=685) EOSINOPHILS RELATIVE PERCENT (BEAKER) (test 9 % ewnm=275) BASOPHILS RELATIVE PERCENT (BEAKER) (test 0 % qeua=373) NEUTROPHILS ABSOLUTE COUNT (BEAKER) (test 2.99 K/ L 1.78-5.38 rtfj=854) LYMPHOCYTES ABSOLUTE COUNT (BEAKER) (test 0.64 K/ L 1.32-3.57 kuww=216) MONOCYTES ABSOLUTE COUNT (BEAKER) (test wakl=365) 0.45 K/ L 0.30-0.82 EOSINOPHILS ABSOLUTE COUNT (BEAKER) (test 0.42 K/ L 0.04-0.54 jjca=440) BASOPHILS ABSOLUTE COUNT (BEAKER) (test nzxr=742) 0.01 K/ L 0.01-0.08 IMMATURE GRANULOCYTES-RELATIVE PERCENT (BEAKER) 0 % 0-1 (test drci=4639) [id number] 05:47:00 Test Item Value Reference Range Comments PHOSPHORUS (BEAKER) (test ygft=553) 2.8 mg/dL 2.3-4.7 Check Serum Phosphorus level 4 hours after IV phosphorus replacement or 8 hours after PO replacementcompleted.[id number] 05:47:00 Test Item Value Reference Range Comments MAGNESIUM (BEAKER) (test zwcz=316) 2.6 mg/dL 1.6-2.6 Check Serum Phosphorus level 4 hours after IV phosphorus replacement or 8 hours after PO replacementcompleted.BASIC METABOLIC [id number] 05:47:00 Test Item Value Reference Range Comments SODIUM (BEAKER) (test 146 meq/L 136-145 svtk=526) POTASSIUM (BEAKER) (test 4.1 meq/L 3.5-5.1 qgvu=253) CHLORIDE (BEAKER) (test 119 meq/L 98-107 fhzy=636) CO2 (BEAKER) (test 23 meq/L 22-29 yacl=646) BLOOD UREA NITROGEN 21 mg/dL 7-21 (BEAKER) (test oowa=245) CREATININE (BEAKER) (test 0.95 mg/dL 0.57-1.25 nsdb=563) GLUCOSE RANDOM (BEAKER) 122 mg/dL 70-105 (test xfkl=423) CALCIUM (BEAKER) (test 8.3 mg/dL 8.4-10.2 wdpk=084) EGFR (BEAKER) (test 75 mL/min/1.73 sq m ESTIMATED GFR IS NOT kdkk=4994) ACCURATE CREATININE CLEARANCE IN PREDICTING GLOMERULAR FILTRATION RATE. ESTIMATED GFR IS NOT APPLICABLE FOR DIALYSIS PATIENTS. Check Serum Phosphorus level 4 hours after IV phosphorus replacement or 8 hours after PO replacementcompleted.RAD, CHEST, 1 VIEW, NON [id number] 05:00: 00Reason for exam:->resp failureShould this be performed at the bedside?-> YesFINAL REPORT RAD, CHEST, 1 VIEW, NON DEPT INDICATION: resp failure COMPARISON: Prior day's exam FINDINGS: Portable frontal view of the chest. IMPRESSION: Support Lines: Interval extubation. Otherwise unchanged support apparatus. Lungs and pleura: Decreased lung volumes with increased atelectasis in the mid lungs. Mildly increased pulmonary vascular congestion. No pleural effusion. No pneumothorax.Heart and mediastinum: Stable contours. Stable surgical changes.Additional findings: None. Signed: David Jha Verified Date/Time: 03/06/2018 05:00:57 Reading Location: [address] Transitional Reading Room POCT-GLUCOSE [id number] 04:50:00 Test Item Value Reference Range Comments POC-GLUCOSE METER (BEAKER) 133 mg/dL 70-110 TESTED AT [facility] [address] [facility] (test rmna=1273) [facility] [address] HEMOGLOBIN AND [id number] 23:14:00 Test Item Value Reference Range Comments HEMOGLOBIN (BEAKER) (test ofic=583) 7.1 GM/DL 13.7-17.5 HEMATOCRIT (BEAKER) (test ayxo=404) 23.5 % 40.1-51.0 POCT-GLUCOSE [id number] 23:12:00 Test Item Value Reference Range Comments POC-GLUCOSE METER (BEAKER) 146 mg/dL 70-110 TESTED AT [address] (test pllh=4599) [facility] [address] POCT-GLUCOSE [id number] 22:11:00 Test Item Value Reference Range Comments POC-GLUCOSE METER (BEAKER) 164 mg/dL 70-110 TESTED AT [address] (test ciyz=0575) [facility] [address] HEMOGLOBIN AND [id number] 18:51:00 Test Item Value Reference Range Comments HEMOGLOBIN (BEAKER) (test bykc=157) 7.3 GM/DL 13.7-17.5 HEMATOCRIT (BEAKER) (test kibn=424) 23.8 % 40.1-51.0 POCT-GLUCOSE [id number] 17:35:00 Test Item Value Reference Range Comments POC-GLUCOSE METER (BEAKER) 169 mg/dL 70-110 TESTED AT [address] (test pbak=3439) [facility] [address] OCCULT BLOOD, [id number] 16:20:00 Test Item Value Reference Range Comments FECAL OCCULT BLOOD (BEAKER) (test qtni=312) Positive Negative HEPATIC FUNCTION [id number] 13:39:00 Test Item Value Reference Range Comments TOTAL PROTEIN (BEAKER) (test hret=949) 5.7 gm/dL 6.0-8.3 ALBUMIN (BEAKER) (test tmub=9442) 3.2 g/dL 3.5-5.0 BILIRUBIN TOTAL (BEAKER) (test dxap=824) 2.1 mg/dL 0.2-1.2 BILIRUBIN DIRECT (BEAKER) (test qwye=960) 0.6 mg/dL 0.1-0.5 ALKALINE PHOSPHATASE (BEAKER) (test kbry=625) 98 U/L 40-150 AST (SGOT) (BEAKER) (test wdzr=230) 24 U/L 5-34 ALT (SGPT) (BEAKER) (test kiqh=393) 14 U/L 6-55 BASIC METABOLIC [id number] 13:39:00 Test Item Value Reference Range Comments SODIUM (BEAKER) (test 149 meq/L 136-145 mclt=966) POTASSIUM (BEAKER) (test 3.7 meq/L 3.5-5.1 ghbf=918) CHLORIDE (BEAKER) (test 121 meq/L 98-107 ndbm=262) CO2 (BEAKER) (test 25 meq/L 22-29 vpnd=575) BLOOD UREA NITROGEN 25 mg/dL 7-21 (BEAKER) (test psgj=082) CREATININE (BEAKER) (test 1.01 mg/dL 0.57-1.25 gilg=984) GLUCOSE RANDOM (BEAKER) 164 mg/dL 70-105 (test dubr=713) CALCIUM (BEAKER) (test 8.7 mg/dL 8.4-10.2 yyhq=155) EGFR (BEAKER) (test 70 mL/min/1.73 sq m ESTIMATED GFR IS NOT tfsk=1552) ACCURATE CREATININE CLEARANCE IN PREDICTING GLOMERULAR FILTRATION RATE. ESTIMATED GFR IS NOT APPLICABLE FOR DIALYSIS PATIENTS. VANCOMYCIN LEVEL, [id number] 13:35:00 Test Item Value Reference Range Comments VANCOMYCIN RANDOM (BEAKER) (test nebw=324) 10.1 ug/mL Reference Range: No NormalsHEMOGLOBIN AND [id number] 12:47:00 Test Item Value Reference Range Comments HEMOGLOBIN (BEAKER) (test cyrb=924) 7.3 GM/DL 13.7-17.5 HEMATOCRIT (BEAKER) (test tyzg=017) 23.7 % 40.1-51.0 POCT-GLUCOSE [id number] 12:14:00 Test Item Value Reference Range Comments POC-GLUCOSE METER (BEAKER) 189 mg/dL 70-110 TESTED AT [facility] [address] [facility] (test gcze=9819) [facility] [address] ANTI-NUCLEAR ANTIBODY (STEPHY)2018-03-05 10:39:00 Test Item Value Reference Range Comments ANTI-NUCLEAR ANTIBODY (STEPHY) (BEAKER) (test Negative Negative befk=391) Test performed by IFA method.Test performed by IFA method.B-TYPE NATRIURETIC FACTOR (BNP)2018-03-05 08:21:00 Test Item Value Reference Range Comments B-TYPE NATRIURETIC PEPTIDE (BEAKER) (test 222 pg/mL 0-100 nywu=392) [id number] 08:07:00 Test Item Value Reference Range Comments AMMONIA (BEAKER) (test iznt=110) 38 mol/L 18-72 RAD, CHEST, 1 VIEW, NON [id number] 06:28:00Reason for exam:->resp failureShould this be performed at the bedside?->YesFINAL REPORT RAD, CHEST, 1 VIEW, NON DEPT INDICATION: resp failure COMPARISON: Prior day's exam FINDINGS: Portable frontal view of the chest. IMPRESSION: Support Lines: Stable. Lungs and pleura: Unchanged airspace and pleural opacities. No pneumothorax.Heart and mediastinum: Stable contours. Stable surgical changes.Additional findings: None. Signed: David Jha Verified Date/Time: 03/05/2018 06:28:24 Reading Location: [address] Transitional Reading Room SHIGA TOXIN [id number] 06:12:00 Test Item Value Reference Range Comments SHIGA TOXIN 1 (BEAKER) (test druw=0536) Not detected Not detected SHIGA TOXIN 2 (BEAKER) (test kenm=1572) Not detected Not detected CBC W/PLT COUNT & AUTO [id number] 05:32:00 Test Item Value Reference Range Comments WHITE BLOOD CELL COUNT (BEAKER) (test jiru=231) 6.4 K/ L 3.5-10.5 RED BLOOD CELL COUNT (BEAKER) (test gzdn=159) 2.20 M/ L 4.63-6.08 HEMOGLOBIN (BEAKER) (test qpkr=869) 7.4 GM/DL 13.7-17.5 HEMATOCRIT (BEAKER) (test pvxg=175) 24.0 % 40.1-51.0 MEAN CORPUSCULAR VOLUME (BEAKER) (test gpit=481) 109.1 fL 79.0-92.2 MEAN CORPUSCULAR HEMOGLOBIN (BEAKER) (test 33.6 pg 25.7-32.2 xskk=335) MEAN CORPUSCULAR HEMOGLOBIN CONC (BEAKER) (test 30.8 GM/DL 32.3-36.5 nvld=215) RED CELL DISTRIBUTION WIDTH (BEAKER) (test 15.0 % 11.6-14.4 rdog=643) PLATELET COUNT (BEAKER) (test smuz=511) 90 K/CU MM 150-450 MEAN PLATELET VOLUME (BEAKER) (test mcux=068) 11.0 fL 9.4-12.4 NUCLEATED RED BLOOD CELLS (BEAKER) (test 0 /100 WBC 0-0 lzsc=221) NEUTROPHILS RELATIVE PERCENT (BEAKER) (test 71 % dwyq=195) LYMPHOCYTES RELATIVE PERCENT (BEAKER) (test 12 % glux=815) MONOCYTES RELATIVE PERCENT (BEAKER) (test 12 % vqtn=059) EOSINOPHILS RELATIVE PERCENT (BEAKER) (test 5 % eonr=809) BASOPHILS RELATIVE PERCENT (BEAKER) (test 0 % ytnh=426) NEUTROPHILS ABSOLUTE COUNT (BEAKER) (test 4.55 K/ L 1.78-5.38 rupe=696) LYMPHOCYTES ABSOLUTE COUNT (BEAKER) (test 0.74 K/ L 1.32-3.57 ntue=375) MONOCYTES ABSOLUTE COUNT (BEAKER) (test ckbl=646) 0.78 K/ L 0.30-0.82 EOSINOPHILS ABSOLUTE COUNT (BEAKER) (test 0.30 K/ L 0.04-0.54 nylk=456) BASOPHILS ABSOLUTE COUNT (BEAKER) (test ohhv=598) 0.02 K/ L 0.01-0.08 IMMATURE GRANULOCYTES-RELATIVE PERCENT (BEAKER) 0 % 0-1 (test avik=1887) BASIC METABOLIC [id number] 05:31:00 Test Item Value Reference Range Comments SODIUM (BEAKER) (test 150 meq/L 136-145 gzab=165) POTASSIUM (BEAKER) (test 3.8 meq/L 3.5-5.1 fsqg=499) CHLORIDE (BEAKER) (test 123 meq/L 98-107 dpdf=694) CO2 (BEAKER) (test 21 meq/L 22-29 oryk=009) BLOOD UREA NITROGEN 30 mg/dL 7-21 (BEAKER) (test ikji=397) CREATININE (BEAKER) (test 1.10 mg/dL 0.57-1.25 hxwr=220) GLUCOSE RANDOM (BEAKER) 148 mg/dL 70-105 (test fhnm=947) CALCIUM (BEAKER) (test 8.9 mg/dL 8.4-10.2 tdgw=383) EGFR (BEAKER) (test 63 mL/min/1.73 sq m ESTIMATED GFR IS NOT vnnp=1826) ACCURATE CREATININE CLEARANCE IN PREDICTING GLOMERULAR FILTRATION RATE. ESTIMATED GFR IS NOT APPLICABLE FOR DIALYSIS PATIENTS. Check Serum Phosphorus level 4 hours after IV phosphorus replacement or 8 hours after PO replacementcompleted.BLOOD GAS, [id number] 05:29:00 Test Item Value Reference Range Comments PH ARTERIAL (BEAKER) (test zkku=080) 7.42 7.35-7.45 PCO2 ARTERIAL (BEAKER) (test uoxc=727) 36 mmHg 35-45 PO2 ARTERIAL (BEAKER) (test ecri=617) 193 mmHg 80-90 O2 SATURATION ARTERIAL (BEAKER) (test xbir=059) 99.3 % 96.0-97.0 HCO3 ARTERIAL (BEAKER) (test lngd=807) 23 mmol/L 21-29 BASE EXCESS ARTERIAL (BEAKER) (test lmkz=903) -1.6 mmol/L -2.0-3.0 PATIENT TEMPERATURE (BEAKER) (test kzou=1317) 37.4 C FIO2 (BEAKER) (test qggq=8845) 30.0 % [id number] 05:28:00 Test Item Value Reference Range Comments PHOSPHORUS (BEAKER) (test vbcs=252) 2.4 mg/dL 2.3-4.7 Check Serum Phosphorus level 4 hours after IV phosphorus replacement or 8 hours after PO replacementcompleted.[id number] 05:28:00 Test Item Value Reference Range Comments MAGNESIUM (BEAKER) (test kpmh=313) 2.8 mg/dL 1.6-2.6 Check Serum Phosphorus level 4 hours after IV phosphorus replacement or 8 hours after PO replacementcompleted.POCT-GLUCOSE [id number] 04:14:00 Test Item Value Reference Range Comments POC-GLUCOSE METER (BEAKER) 164 mg/dL 70-110 TESTED AT [address] (test cjar=7839) [place] [id number] POCT-GLUCOSE [id number] 21:41:00 Test Item Value Reference Range Comments POC-GLUCOSE METER (BEAKER) 161 mg/dL 70-110 TESTED AT [address] (test bcbt=6525) [place] [id number] POCT-GLUCOSE [id number] 17:49:00 Test Item Value Reference Range Comments POC-GLUCOSE METER (BEAKER) 163 mg/dL 70-110 TESTED AT [address] (test rcfl=5506) [place] [id number] CT, [id number] 16:57:00FINAL REPORT CT of the abdomen and pelvis, with contrast Clinical History: Abd pain, gastroenteritis or colitis suspected Technique: CT of the abdomen and pelvis is performed with intravenous contrast administration. This exam was performed according to our departmental dose optimization program which includes automated exposure control , adjustment of the mA and/or kV according [...] adrenal glands are unremarkable. Kidneys demonstrate no hydronephrosis , radiopaque stone or suspicious mass lesion. Postsurgical change is present at the anorectal junction. No evidence of bowel obstruction. Liquid content in colon suggests diarrhea. No abnormal bowel wall thickening is identified. There is no significant pericolonic inflammatory change. Normal appendix. Note is madeof mild colonic diverticulosis. In the pelvis, bladder is decompressed with Dos Santos catheter. Prostateand seminal vesicles are unremarkable. There is advanced vascular calcification. No ascites, free air, or adenopathy. Osseous structures demonstrate degenerative changes. There is a stable wedge- shapedcompression deformity of L1 vertebral body. Impression: Liquid content in colon suggests diarrhea, correlate clinically for enterocolitis. No obstruction. No significant bowel wall thickening identified. Mild colonic diverticulosis. Postsurgical change at the anorectal junction. Advanced atherosclerotic disease. Cardiomegaly. Mild splenomegaly. Status post cholecystectomy. Signed: Shama Melendezort Verified Date/Time: 03/04/2018 16:57 :24 Reading Location: [facility] C013Y CT Body Reading Room STOOL PATH [id number] 14: 52:00 Test Item Value Reference Range Comments PATHOGEN EXAM CHARGED (BEAKER) (test xufj=3245) Done BASIC METABOLIC [id number] 12:28:00 Test Item Value Reference Range Comments SODIUM (BEAKER) (test 150 meq/L 136-145 pdyk=280) POTASSIUM (BEAKER) (test 4.2 meq/L 3.5-5.1 safd=088) CHLORIDE (BEAKER) (test 122 meq/L 98-107 jggr=869) CO2 (BEAKER) (test 26 meq/L 22-29 uhji=107) BLOOD UREA NITROGEN 33 mg/dL 7-21 (BEAKER) (test lxyw=133) CREATININE (BEAKER) (test 1.23 mg/dL 0.57-1.25 dmpx=259) GLUCOSE RANDOM (BEAKER) 129 mg/dL 70-105 (test tzsq=359) CALCIUM (BEAKER) (test 9.0 mg/dL 8.4-10.2 lcmy=328) EGFR (BEAKER) (test 56 mL/min/1.73 sq m ESTIMATED GFR IS NOT gjrr=7977) ACCURATE CREATININE CLEARANCE IN PREDICTING GLOMERULAR FILTRATION RATE. ESTIMATED GFR IS NOT APPLICABLE FOR DIALYSIS PATIENTS. HEMOGLOBIN AND [id number] 12:08:00 Test Item Value Reference Range Comments HEMOGLOBIN (BEAKER) (test kifo=459) 8.2 GM/DL 13.7-17.5 HEMATOCRIT (BEAKER) (test agtk=281) 26.2 % 40.1-51.0 POCT-GLUCOSE [id number] 11:16:00 Test Item Value Reference Range Comments POC-GLUCOSE METER (BEAKER) 159 mg/dL 70-110 TESTED AT [facility] [address] [facility] (test zupe=2452) [facility] [address] LACTIC ACID, ARTERIAL, WHOLE [id number] 10:35:00 Test Item Value Reference Range Comments LACTATE BLOOD ARTERIAL (2) (BEAKER) (test 0.7 mmol/L 0.5-2.2 cycs=6145) [id number] 08:12:00 Test Item Value Reference Range Comments AMMONIA (BEAKER) (test hbwa=199) 44 mol/L 18-72 RAD, CHEST, 1 VIEW, NON [id number] 05:12:00Reason for exam:->resp failureShould this be performed at the bedside?->YesFINAL REPORT RAD, CHEST, 1 VIEW, NON DEPT INDICATION: resp failure COMPARISON: Prior day's exam FINDINGS: Portable frontal view of the chest. IMPRESSION: Support Lines: Stable. Lungs and pleura: Increased left retrocardiac opacity consistent with worsening left lower lobe collapse. Unchanged by lateral reticular airspace opacities. No pleural effusion or pneumothorax. Heart and mediastinum: Stable contours. Stable surgical changes.Additional findings: None. Signed: David Jha MDReport Verified Date/Time: 03/04/2018 05:12 :43 Reading Location: [address] Transitional Reading Room BASIC METABOLIC [id number] 05:00:00 Test Item Value Reference Range Comments SODIUM (BEAKER) (test 152 meq/L 136-145 bicv=169) POTASSIUM (BEAKER) (test 3.1 meq/L 3.5-5.1 evpu=189) CHLORIDE (BEAKER) (test 121 meq/L 98-107 rexi=188) CO2 (BEAKER) (test 26 meq/L 22-29 npjo=999) BLOOD UREA NITROGEN 33 mg/dL 7-21 (BEAKER) (test jmjp=884) CREATININE (BEAKER) (test 1.17 mg/dL 0.57-1.25 wovt=417) GLUCOSE RANDOM (BEAKER) 136 mg/dL 70-105 (test kyom=930) CALCIUM (BEAKER) (test 9.2 mg/dL 8.4-10.2 kspq=576) EGFR (BEAKER) (test 59 mL/min/1.73 sq m ESTIMATED GFR IS NOT arho=7851) ACCURATE CREATININE CLEARANCE IN PREDICTING GLOMERULAR FILTRATION RATE. ESTIMATED GFR IS NOT APPLICABLE FOR DIALYSIS PATIENTS. [id number] 04:55:00 Test Item Value Reference Range Comments MAGNESIUM (BEAKER) (test bcqw=264) 3.1 mg/dL 1.6-2.6 CBC W/PLT COUNT & AUTO [id number] 04:38:00 Test Item Value Reference Range Comments WHITE BLOOD CELL COUNT (BEAKER) (test mugu=101) 7.6 K/ L 3.5-10.5 RED BLOOD CELL COUNT (BEAKER) (test knau=538) 2.39 M/ L 4.63-6.08 HEMOGLOBIN (BEAKER) (test mzjt=862) 7.8 GM/DL 13.7-17.5 HEMATOCRIT (BEAKER) (test ntty=297) 25.3 % 40.1-51.0 MEAN CORPUSCULAR VOLUME (BEAKER) (test wmxa=564) 105.9 fL 79.0-92.2 MEAN CORPUSCULAR HEMOGLOBIN (BEAKER) (test 32.6 pg 25.7-32.2 btnc=562) MEAN CORPUSCULAR HEMOGLOBIN CONC (BEAKER) (test 30.8 GM/DL 32.3-36.5 fvuo=784) RED CELL DISTRIBUTION WIDTH (BEAKER) (test 15.6 % 11.6-14.4 tisg=574) PLATELET COUNT (BEAKER) (test kvcr=529) 119 K/CU MM 150-450 MEAN PLATELET VOLUME (BEAKER) (test kwml=298) 10.8 fL 9.4-12.4 NUCLEATED RED BLOOD CELLS (BEAKER) (test 0 /100 WBC 0-0 wzlk=362) NEUTROPHILS RELATIVE PERCENT (BEAKER) (test 72 % flhr=887) LYMPHOCYTES RELATIVE PERCENT (BEAKER) (test 10 % vclf=648) MONOCYTES RELATIVE PERCENT (BEAKER) (test 13 % jevv=088) EOSINOPHILS RELATIVE PERCENT (BEAKER) (test 4 % ritr=466) BASOPHILS RELATIVE PERCENT (BEAKER) (test 1 % wkwv=502) NEUTROPHILS ABSOLUTE COUNT (BEAKER) (test 5.49 K/ L 1.78-5.38 cyjq=236) LYMPHOCYTES ABSOLUTE COUNT (BEAKER) (test 0.78 K/ L 1.32-3.57 wiot=157) MONOCYTES ABSOLUTE COUNT (BEAKER) (test 0.98 K/ L 0.30-0.82 sfac=839) EOSINOPHILS ABSOLUTE COUNT (BEAKER) (test 0.31 K/ L 0.04-0.54 rxyl=070) BASOPHILS ABSOLUTE COUNT (BEAKER) (test 0.04 K/ L 0.01-0.08 lvqu=820) IMMATURE GRANULOCYTES-RELATIVE PERCENT (BEAKER) 0 % 0-1 (test rdjf=6330) BLOOD GAS, [id number] 04:23:00 Test Item Value Reference Range Comments PH ARTERIAL (BEAKER) (test vznc=967) 7.47 7.35-7.45 PCO2 ARTERIAL (BEAKER) (test odvy=255) 33 mmHg 35-45 PO2 ARTERIAL (BEAKER) (test ofsm=229) 278 mmHg 80-90 O2 SATURATION ARTERIAL (BEAKER) (test zfjr=253) 99.7 % 96.0-97.0 HCO3 ARTERIAL (BEAKER) (test zreo=484) 24 mmol/L 21-29 BASE EXCESS ARTERIAL (BEAKER) (test vpnh=003) 0.0 mmol/L -2.0-3.0 PATIENT TEMPERATURE (BEAKER) (test lyqd=1225) 36.2 C FIO2 (BEAKER) (test fafc=3554) 40.0 % POCT-GLUCOSE [id number] 22:12:00 Test Item Value Reference Range Comments POC-GLUCOSE METER (BEAKER) 171 mg/dL 70-110 TESTED AT [facility] [address] [facility] (test ssru=3641) [facility] [address] TROPONIN [id number] 22:08:00 Test Item Value Reference Range Comments TROPONIN I (BEAKER) (test amfz=711) 0.08 ng/mL 0.00-0.03 Troponin I (TnI) levels must be interpreted in the context of the presenting symptoms and the clinical findings. Elevated TnI levels indicate myocardial damage, but are not specific for ischemic heart disease. Elevated TnI levels are seen in patients with other cardiac conditions (including myocarditis and congestive heart failure), and slight TnI elevations occur in patients with other conditions, including sepsis, renal failure, acidosis, acute neurological disease, and persistent tachyarrhythmia.HEPATITIS A ANTIBODY, [id number] 20: 40:00 Test Item Value Reference Range Comments HEPATITIS A IGG ANTIBODY (BEAKER) (test urda=8744) Reactive Nonreactive ALPHA FETOPROTEIN (AFP), TUMOR [id number] 20:40:00 Test Item Value Reference Range Comments ALPHA-FETOPROTEIN (BEAKER) (test jodp=7556) < ng/mL <10.0 CARCINOEMBRYONIC ANTIGEN (CEA)2018-03-03 20:36:00 Test Item Value Reference Range Comments CARCINOEMBRYONIC ANTIGEN (BEAKER) (test hyom=890) 2.2 ng/mL 0.0-5.0 HEPATITIS B CORE ANTIBODY, [id number] 20:36:00 Test Item Value Reference Range Comments HEPATITIS B CORE TOTAL ANTIBODY (BEAKER) (test Nonreactive Nonreactive bxpi=430) HEPATITIS B SURFACE [id number] 20:23:00 Test Item Value Reference Range Comments HEPATITIS B SURFACE ANTIBODY (BEAKER) (test < mIU/mL <8.0 xfpx=911) HEPATITIS B SURFACE [id number] 20:22:00 Test Item Value Reference Range Comments HEPATITIS B SURFACE ANTIGEN (2) (BEAKER) (test Nonreactive Nonreactive fuvp=5250) HEPATITIS C [id number] 20:22:00 Test Item Value Reference Range Comments HEPATITIS C ANTIBODY (BEAKER) (test pevl=397) Nonreactive Nonreactive POCT-GLUCOSE [id number] 19:30:00 Test Item Value Reference Range Comments POC-GLUCOSE METER (BEAKER) 169 mg/dL 70-110 TESTED AT [facility] [address] [place] [address] (test kwvd=4444) [facility] [address] RAD, CHEST, 1 VIEW, NON [id number] 19:12:00Reason for exam:-> intubatedShould this be performed at the bedside?->YesFINAL REPORT CLINICAL INDICATION: Intubated Comparison: Same date at 0028 hours The tip of an endotracheal tube is 2.5 cm above the pedro pablo. A right IJ CVC tip overlies the superior vena cava without associated pneumothorax or hematoma. An enteric tube traverses examination to the upper abdomen. The cardiomediastinal contours are stable. Central pulmonary vascular congestion and bilateral parenchymal opacities are similar to previous. There is no pneumothorax. Signed: Dawson Barron MDReport Verified Date/Time: 03/03/2018 19: 12:40 Reading Location: [address] Reading Room FECAL [id number] 18:56:00 Test Item Value Reference Range Comments FECAL LEUKOCYTES (BEAKER) No fecal leukocytes seen No fecal leukocytes seen (test uuyo=103) RAD, ABDOMEN/KUB, 1 VIEW [id number] 18:41:00Reason for exam:->NGT placementFINAL REPORT Abdomen date 03/03/2018 Comment: Frontal view of the abdomen demonstrates a nasogastric tube present with tip noted in the in the body of the stomach. Signed: Israel Barr MDReport Verified Date/Time: 03/03/2018 18:41:41 Reading Location: [address] ReadingRoom 06: 41 [id number] 18:13:00 Test Item Value Reference Range Comments FERRITIN (BEAKER) (test qjbm=971) 28 ng/mL 5-275 TROPONIN [id number] 17:26:00 Test Item Value Reference Range Comments TROPONIN I (BEAKER) (test fnof=312) 0.06 ng/mL 0.00-0.03 Troponin I (TnI) levels must be interpreted in the context of the presenting symptoms and the clinical findings. Elevated TnI levels indicate myocardial damage, but are not specific for ischemic heart disease. Elevated TnI levels are seen in patients with other cardiac conditions (including myocarditis and congestive heart failure), and slight TnI elevations occur in patients with other conditions, including sepsis, renal failure, acidosis, acute neurological disease, and persistent tachyarrhythmia.HEPATIC FUNCTION [id number] 17:19: 00 Test Item Value Reference Range Comments TOTAL PROTEIN (BEAKER) (test mywn=000) 6.5 gm/dL 6.0-8.3 ALBUMIN (BEAKER) (test amqh=6614) 3.7 g/dL 3.5-5.0 BILIRUBIN TOTAL (BEAKER) (test buhp=965) 2.5 mg/dL 0.2-1.2 BILIRUBIN DIRECT (BEAKER) (test xnwk=687) 0.8 mg/dL 0.1-0.5 ALKALINE PHOSPHATASE (BEAKER) (test nujp=142) 107 U/L 40-150 AST (SGOT) (BEAKER) (test tszb=740) 24 U/L 5-34 ALT (SGPT) (BEAKER) (test jlqv=855) 13 U/L 6-55 Specimen slightly ictericIRON, TIBC, % SAT. (WITHOUT FERRITIN)2018-03-03 17:19: 00 Test Item Value Reference Range Comments IRON (BEAKER) (test wdlt=368) 78.0 ug/dL 40.0-160.0 TOTAL IRON BINDING CAPACITY (BEAKER) (test 294 ug/dL 250-450 rapu=892) IRON % SATURATION (2) (BEAKER) (test sayu=4692) 27 % 20-55 BASIC METABOLIC [id number] 17:19:00 Test Item Value Reference Range Comments SODIUM (BEAKER) (test 149 meq/L 136-145 sybi=852) POTASSIUM (BEAKER) (test 3.8 meq/L 3.5-5.1 vveh=399) CHLORIDE (BEAKER) (test 117 meq/L 98-107 mvje=324) CO2 (BEAKER) (test 23 meq/L 22-29 iiqs=905) BLOOD UREA NITROGEN 30 mg/dL 7-21 (BEAKER) (test nahu=473) CREATININE (BEAKER) (test 1.06 mg/dL 0.57-1.25 yupl=532) GLUCOSE RANDOM (BEAKER) 171 mg/dL 70-105 (test hrmp=595) CALCIUM (BEAKER) (test 9.3 mg/dL 8.4-10.2 rvkj=474) EGFR (BEAKER) (test 66 mL/min/1.73 sq m ESTIMATED GFR IS NOT gyjk=0371) ACCURATE CREATININE CLEARANCE IN PREDICTING GLOMERULAR FILTRATION RATE. ESTIMATED GFR IS NOT APPLICABLE FOR DIALYSIS PATIENTS. Specimen slightly ictericHEMOGLOBIN AND [id number] 17:15:00 Test Item Value Reference Range Comments HEMOGLOBIN (BEAKER) (test tsdc=048) 8.3 GM/DL 13.7-17.5 HEMATOCRIT (BEAKER) (test umig=824) 25.7 % 40.1-51.0 PROTHROMBIN [id number] 16:53:00 Test Item Value Reference Range Comments PROTIME (BEAKER) (test czhx=706) 16.1 seconds 11.7-14.7 INR (BEAKER) (test padl=671) 1.3 <=5.9 RECOMMENDED COUMADIN/WARFARIN INR THERAPY RANGESSTANDARD DOSE: 2.0 - 3.0 Includes: PROPHYLAXIS forvenous thrombosis, systemic embolization; TREATMENT for venous thrombosis and/or pulmonary embolus.HIGH RISK: Target INR is 2.5-3.5 for patients with mechanical heart valves.[id number] 16:53:00 Test Item Value Reference Range Comments FIBRINOGEN LEVEL (BEAKER) (test cbii=978) 333 mg/dl 225-434 [id number] 16:51:00 Test Item Value Reference Range Comments PROCALCITONIN (BEAKER) (test uxfd=0880) < ng/mL <0.05 SEPSIS RISK (ng/mL)Low: 0.05-0.50Intermediate: 0.51-2.00High: & gt;=2.01BLOOD GAS, [id number] 16:07:00 Test Item Value Reference Range Comments PH ARTERIAL (BEAKER) (test hoef=084) 7.51 7.35-7.45 PCO2 ARTERIAL (BEAKER) (test mmcv=303) 32 mmHg 35-45 PO2 ARTERIAL (BEAKER) (test hgbz=708) 317 mmHg 80-90 O2 SATURATION ARTERIAL (BEAKER) (test sqqg=513) 99.8 % 96.0-97.0 HCO3 ARTERIAL (BEAKER) (test gtqe=252) 25 mmol/L 21-29 BASE EXCESS ARTERIAL (BEAKER) (test dzgy=514) 2.0 mmol/L -2.0-3.0 PATIENT TEMPERATURE (BEAKER) (test ouql=0299) 37.5 C FIO2 (BEAKER) (test npfr=7170) 60.0 % EEG AWAKE AND [id number] 14:50:00Reason for exam:->altered mental statusEEG REPORT: Kaylee Arriaga[facility] Date of EEDate of report: EEG start time: 1216EEG end time: 1237EEG #: [id number] No: [id number] ICD Code: #: R41.82 Altered mental status, unspecified (ICD 9: 780.97)CPT Code: #: 08276: 03. EEG coma or sleep only; 20-40 minPROCEDURE: EEG HISTORY: 87 yo male with CAD s/p CABG, afib, HTN. Has worsening of AMS and facial droop(left side). MEDICATIONS AFFECTING EEG: QuetiapineTECHNICAL SUMMARY: This is a digital EEG performed [...] well demonstrable. There are frequent broad based, bi- synchronous discharges with a triphasic morphology, and occur either singly or in brief rhythmic trains. These discharges demonstrate an anterior predominance , with anterior to posterior phase lag. SLEEP No sleep structures were seen in this record. HYPERVENTILATION: Not performed. PHOTIC STIMULATION: No photic driving was seen with multiple frequencies of flickering light. EKG: Hear rate was irregular and approximately about 120/minIMPRESSION: This EEG study isabnormal due to: (1) Severe diffuse slowing of the background rhythms; and, (2 ) Triphasic potentialsand (3) intermittent attenuations. There is no evidence for electrographic seizure in this record.COMMENT: Diffuse slowing as evident in this record supports an underlying moderate to severe encephalopathy. Triphasic potential is a nonspecific finding that is most typically associated metabolic disturbances (ie. hepatic, renal encephalopathy). However, triphasic potentials can also be associated withother settings of widespread COURT RECORDER insults, including the aftermath of prolonged seizures. Intermittent attenuations reflect cortical suppression.Clinical Fellow: Henri YañezNeurophysiologist: Wil Mathias 02: 50 PMPOCT-LACTIC ACID, [id number] 14:13:00 Test Item Value Reference Range Comments POC-LACTIC ACID, ARTERIAL 1.2 mmol/L 0.4-1.3 TESTED AT [address] ([facility]) (test ierx=2157) [facility] [address] POCT-BLOOD GASES, [id number] 14:13:00 Test Item Value Reference Range Comments TEMP, CELSIUS-POC ([facility]) 37.0 (test uhye=5947) FIO2-POC (AKER) (test TESTED AT [address] qebv=4679) [facility] [address] PH, ARTERIAL-POC ([facility]) 7.496 7.350-7.450 (test vgly=0517) PCO2, ARTERIAL-POC ([facility]) 31.0 mm Hg 35.0-45.0 (test vxfs=5007) PO2, ARTERIAL-POC (BEAKER) 66.0 mm Hg 80.0-90.0 (test aaxn=0212) SO2, ARTERIAL-POC (BEAKER) 95.0 % 96.0-97.0 (test thio=7208) HCO3, ARTERIAL-POC (BEAKER) 23.9 meq/L 21.0-29.0 (test etgn=6225) BASE EXCESS, ARTERIAL-POC 1.0 meq/L -2.0-3.0 (BEAKER) (test oozx=6226) [id number] 14:13:00 Test Item Value Reference Range Comments POC-SODIUM (BEAKER) (test 151 meq/L 135-148 TESTED AT [address] lrwn=3972) [place] [address] [id number] 14:13:00 Test Item Value Reference Range Comments POC-POTASSIUM (BEAKER) (test 3.7 meq/L 3.6-5.5 TESTED AT [address] icne=2503) [place] [address] [id number] 14:13:00 Test Item Value Reference Range Comments POC-GLUCOSE (BEAKER) (test 170 mg/dL 70-110 TESTED AT [address] nyve=2702) [place] [address] POCT-CALCIUM [id number] 14:13:00 Test Item Value Reference Range Comments POC-CALCIUM IONIZED (BEAKER) 1.20 mmol/L 1.12-1.27 TESTED AT [address] (test oaqy=0792) [place] [address] [id number] 14:13:00 Test Item Value Reference Range Comments POC-HEMATOCRIT (BEAKER) (test 24 % 40-50 TESTED AT [address] zfll=4303) [place] [address] [id number] 14:13:00 Test Item Value Reference Range Comments POC-HEMOGLOBIN (BEAKER) 8.2 g/dL 13.0-16.8 TESTED AT [address] (test csvf=3695) [place] [address]TESTED AT [place] [address] VITAMIN B12 AND [id number] 13:00:00 Test Item Value Reference Range Comments VITAMIN B12 (BEAKER) (test qdal=052) 715 pg/mL 213-816 FOLATE (BEAKER) (test wcil=285) 17.0 ng/mL >=7.0 POCT-GLUCOSE [id number] 12:55:00 Test Item Value Reference Range Comments POC-GLUCOSE METER (BEAKER) 190 mg/dL 70-110 TESTED AT [facility] [address] [facility]test wzhk=2930[facility] [address] [id number] 11:41:00 Test Item Value Reference Range Comments PROCALCITONIN (BEAKER) (test rlao=0799) < ng/mL <0.05 SEPSIS RISK (ng/mL)Low: 0.05-0.50Intermediate: 0.51-2.00High: & gt;=2.01URINALYSIS W/ REFLEX URINE [id number] 11:27:00 Test Item Value Reference Range Comments COLOR (BEAKER) (test plml=696) Yellow CLARITY (BEAKER) (test asnf=695) Clear SPECIFIC GRAVITY UA (BEAKER) (test hgnx=765) 1.016 1.001-1.035 PH UA (BEAKER) (test dvej=133) 6.5 5.0-8.0 PROTEIN UA (BEAKER) (test ruhr=835) 50 mg/dL Negative GLUCOSE UA (BEAKER) (test ymur=497) Negative Negative KETONES UA (BEAKER) (test pirr=391) Trace Negative BILIRUBIN UA (BEAKER) (test ptmw=768) Negative Negative BLOOD UA (BEAKER) (test zpjz=828) Negative Negative NITRITE UA (BEAKER) (test zezj=982) Negative Negative LEUKOCYTE ESTERASE UA (BEAKER) (test alwt=224) Negative Negative UROBILINOGEN UA (BEAKER) (test dmqb=525) 0.2 mg/dL 0.2-1.0 RBC UA (BEAKER) (test vhdm=605) 4 /HPF WBC UA (BEAKER) (test tybc=231) 2 /HPF BACTERIA (BEAKER) (test kfvo=879) Moderate SQUAMOUS EPITHELIAL (BEAKER) (test koex=383) 1 /HPF SOURCE(BEAKER) (test mjfy=8846) TSH/FREE T4 IF [id number] 11:19:00 Test Item Value Reference Range Comments THYROID STIMULATING HORMONE (BEAKER) (test 2.67 uIU/mL 0.35-4.94 zglq=181) TROPONIN [id number] 11:04:00 Test Item Value Reference Range Comments TROPONIN I (BEAKER) (test tfhi=516) 0.07 ng/mL 0.00-0.03 Troponin I (TnI) levels must be interpreted in the context of the presenting symptoms and the clinical findings. Elevated TnI levels indicate myocardial damage, but are not specific for ischemic heart disease. Elevated TnI levels are seen in patients with other cardiac conditions (including myocarditis and congestive heart failure), and slight TnI elevations occur in patients with other conditions, including sepsis, renal failure, acidosis, acute neurological disease, and persistent tachyarrhythmia.[id number] 11:00:00 Test Item Value Reference Range Comments SODIUM (BEAKER) (test pmsv=409) 148 meq/L 136-145 HEMOGLOBIN [id number] 10:53:00 Test Item Value Reference Range Comments HEMOGLOBIN A1C (BEAKER) (test bkpr=130) 6.2 % 4.3-6.1 [id number] 10:45:00 Test Item Value Reference Range Comments AMMONIA (BEAKER) (test lqhu=035) 98 mol/L 18-72 C. DIFFICILE GDH [id number] 09:57:00 Test Item Value Reference Range Comments CDT TOXIN (test Negative Negative jszs=[id number]) CDT GDH ANTIGEN (test Positive Negative C. difficile present but toxin dvnj=[id number]) not detected. Indicates colonization with non-toxigenic strain or level of toxin below detectable levels. No need for enteric isolation. Treatment is rarely needed (only when strong clinical suspicion for Clostridium difficile infection) Testing performed by [employer] Rapid Cassette Assay. For GDH, published sensitivity of the assay is 98.7% compared to cytotoxicity testing. For Toxin AB, published sensitivity is 87.8% and specificity 99.4% compared to cytotoxicity testing.Verification of kit performance was done by the [facility] Microbiology Lab prior to clinical use.BASIC METABOLIC [id number] 07:28:00 Test Item Value Reference Range Comments SODIUM (BEAKER) (test 133 meq/L 136-145 jgey=943) POTASSIUM (BEAKER) (test 2.8 meq/L 3.5-5.1 zitl=713) CHLORIDE (BEAKER) (test 108 meq/L 98-107 dlmh=907) CO2 (BEAKER) (test 18 meq/L 22-29 ujen=399) BLOOD UREA NITROGEN 25 mg/dL 7-21 (BEAKER) (test sngn=726) CREATININE (BEAKER) (test 0.78 mg/dL 0.57-1.25 gtfg=558) GLUCOSE RANDOM (BEAKER) 124 mg/dL 70-105 (test cfzg=179) CALCIUM (BEAKER) (test 7.1 mg/dL 8.4-10.2 iquh=370) EGFR (BEAKER) (test 94 mL/min/1.73 sq m ESTIMATED GFR IS NOT cjyy=7663) ACCURATE CREATININE CLEARANCE IN PREDICTING GLOMERULAR FILTRATION RATE. ESTIMATED GFR IS NOT APPLICABLE FOR DIALYSIS PATIENTS. B-TYPE NATRIURETIC FACTOR (BNP)2018-03-03 06:58:00 Test Item Value Reference Range Comments B-TYPE NATRIURETIC PEPTIDE (BEAKER) (test 444 pg/mL 0-100 ssoy=983) [id number] 06:52:00 Test Item Value Reference Range Comments PHOSPHORUS (BEAKER) (test zmpm=313) 2.3 mg/dL 2.3-4.7 [id number] 06:52:00 Test Item Value Reference Range Comments MAGNESIUM (BEAKER) (test pvlt=092) 1.7 mg/dL 1.6-2.6 CBC (HEMOGRAM ONLY)2018-03-03 06:38:00 Test Item Value Reference Range Comments WHITE BLOOD CELL COUNT (BEAKER) (test znsb=181) 5.8 K/ L 3.5-10.5 RED BLOOD CELL COUNT (BEAKER) (test bfto=865) 2.09 M/ L 4.63-6.08 HEMOGLOBIN (BEAKER) (test eqlt=044) 7.0 GM/DL 13.7-17.5 HEMATOCRIT (BEAKER) (test flqk=738) 22.2 % 40.1-51.0 MEAN CORPUSCULAR VOLUME (BEAKER) (test xafw=984) 106.2 fL 79.0-92.2 MEAN CORPUSCULAR HEMOGLOBIN (BEAKER) (test 33.5 pg 25.7-32.2 gpkx=922) MEAN CORPUSCULAR HEMOGLOBIN CONC (BEAKER) (test 31.5 GM/DL 32.3-36.5 mghy=007) RED CELL DISTRIBUTION WIDTH (BEAKER) (test 14.4 % 11.6-14.4 urjv=172) PLATELET COUNT (BEAKER) (test pcco=695) 91 K/CU MM 150-450 MEAN PLATELET VOLUME (BEAKER) (test zeem=751) 10.9 fL 9.4-12.4 NUCLEATED RED BLOOD CELLS (BEAKER) (test 0 /100 WBC 0-0 wdxr=125) MR, MRA, BRAIN, WITHOUT [id number] 05:21:00Reason for exam:-> Ischemic Stroke EvaluationFINAL REPORT MRI Brain without contrast Clinical History: Ischemic Stroke EvaluationAMS, Afib Technique: MRI of the brain utilizing axial T2, FLAIR, GRE, DWI; sagittal and coronal T1- weighted images. MRA of the head utilizing 3-D bjnt-zh-nyoqbs technique, with 3- D reconstructions. MRA of the neck utilizing 2-D and 3-D plra-pc-ovbyyc technique, with 3-D reconstructions. Comparisons: None Findings:MRI brainThere is no evidence of acute infarct or hemorrhage. 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 Generalized parenchymal volume loss with commensurate enlargement of CSF spaces and ventricles. There is no hydrocephalus or midline shift. There are no extra- axial fluid collections. The craniocervical junction is preserved. The major intracranial flow-voids appear patent. Bilateral mastoid air cell effusions. Polypoid mucosal thickening in the bilateral maxillary sinuses.MRA head: Flow in the distal V4 segment of the right vertebral artery likely secondary to retrogradeflow from the basilar artery. There is no evidence of intracranial aneurysm, focal stenosis, or major branch vessel occlusion. 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 The left carotid artery in the neck is patent including their bifurcations. No flow is seen within the right vertebral artery. Left vertebral artery is widely patent. IMPRESSION:MRI brain: No evidence of acute infarct, hemorrhage, or hydrocephalus. Chronic ischemic and involutional changes as described above. MRA head: No evidence for a major [place] proximal branch vessel occlusion. MRA neck: Loss of the expected antegrade flow within the cervical right vertebral artery with flow in the distal V4 segment likely via retrograde flow from the basilar artery. 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 No evidence of hemodynamically significant stenosis in the left cervical carotid or left vertebral arteries by NASCETcriteria. Signed: David Jha MDReport Verified Date/Time: 03/03/2018 05:21:46 Reading Location: [address] Transitional Reading Room MR, MRA, NECK, WITHOUT IV [id number] 05:21: 00Reason for exam:->Ischemic Stroke EvaluationFINAL REPORT MRI Brain without contrast Clinical History: Ischemic Stroke EvaluationAMS, Afib Technique: MRI of the brain utilizing axial T2, FLAIR, GRE, DWI; sagittal and coronal T1-weighted images. MRA of the head utilizing 3-D time -of-flight technique, with 3-D reconstructions. MRA of the neck utilizing 2-D and 3-D vpxc-wy-gwzmnf technique, with 3-D reconstructions. Comparisons: None Findings:MRI brainThere is no evidence of acute infarct or [...] Polypoid mucosal thickening in the bilateral maxillary sinuses.MRA head: Flow in the distal V4 segment of the right vertebral artery likely secondary to retrogradeflow from the basilar artery. There is no evidence of intracranial aneurysm, focal stenosis, or major branch vessel occlusion. 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 The left carotid artery in the neck is patent including their bifurcations. No flow is seen within the right vertebral artery. Left vertebral artery is widely patent. IMPRESSION:MRI brain : No evidence of acute infarct, hemorrhage, or hydrocephalus. Chronic ischemic and involutional changes as described above. MRA head: No evidence for a major skull [place] proximal branch vessel occlusion. MRA [...] cervical carotid or left vertebral arteries by NASCETcriteria. Signed: David Jha MDReport Verified Date/Time: 03/03/2018 05:21:46 Reading Location: [address] Transitional Reading Room MR, BRAIN, WITHOUT [id number] 05 :21:00Reason for exam:->Ischemic Stroke EvaluationFINAL REPORT MRI Brain without contrast Clinical History: Ischemic Stroke EvaluationAMS, Afib Technique: MRI of the brain utilizing axial T2, FLAIR, GRE, DWI; sagittal and coronal T1-weighted images. MRA of the head utilizing 3-D time -of-flight technique, with 3-D reconstructions. MRA of the neck utilizing 2-D and 3-D izbp-pq-qeuqcf technique, with 3-D reconstructions. Comparisons: None Findings:MRI brainThere is no evidence of acute infarct or [...] Polypoid mucosal thickening in the bilateral maxillary sinuses.MRA head: Flow in the distal V4 segment of the right vertebral artery likely secondary to retrogradeflow from the basilar artery. There is no evidence of intracranial aneurysm, focal stenosis, or major branch vessel occlusion. 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 The left carotid artery in the neck is patent including their bifurcations. No flow is seen within the right vertebral artery. Left vertebral artery is widely patent. IMPRESSION:MRI brain : No evidence of acute infarct, hemorrhage, or hydrocephalus. Chronic ischemic and involutional changes as described above. MRA head: No evidence for a major skull [place] proximal branch vessel occlusion. MRA [...] cervical carotid or left vertebral arteries by NASCETcriteria. Signed: David Jhaort Verified Date/Time: 03/03/2018 05:21:46 Reading Location: [address] Reading Room POCT-GLUCOSE [id number] 05:15:00 Test Item Value Reference Range Comments POC-GLUCOSE METER (BEAKER) 207 mg/dL 70-110 TESTED AT [address] (test odcn=6165) [facility] [address] RAD, CHEST, 1 VIEW, NON [id number] 01:11:00Reason for exam:->AMSShould this be performed at the bedside?->YesFINAL REPORT History: 09/11/2017. Comparison: 09/11/2017 Findings: A single view of the chest is submitted. The patient is rotated to the left. The cardiac silhouette is stable inits enlargement. There is atherosclerotic calcification of the aorta. The patient has undergone previous CABG and TAVR. Central pulmonary vascular congestion and bilateral interstitial and patchy airspace opacities suggest pulmonary edema. Superimposed pneumonitis should be excluded clinically. There is no pneumothorax or acute bony abnormality. Surgical clips overlie the right upper quadrant. Signed: Dawson Barron Verified Date/Time: 2018 01:11:47 Reading Location: [address] Reading Room URINALYSIS WITH MICROSCOPIC IF [id number] 00:58:00 Test Item Value Reference Range Comments COLOR (BEAKER) (test qakz=142) Yellow CLARITY (BEAKER) (test fgox=562) Clear SPECIFIC GRAVITY UA (BEAKER) (test cdqp=382) 1.018 1.001-1.035 PH UA (BEAKER) (test lltl=459) 6.5 5.0-8.0 PROTEIN UA (BEAKER) (test ghoc=719) 30 mg/dL Negative GLUCOSE UA (BEAKER) (test qqpw=326) Negative Negative KETONES UA (BEAKER) (test fzru=142) Trace Negative BILIRUBIN UA (BEAKER) (test vwcf=043) Negative Negative BLOOD UA (BEAKER) (test ouwc=433) Negative Negative NITRITE UA (BEAKER) (test qvwl=291) Negative Negative LEUKOCYTE ESTERASE UA (BEAKER) (test yuzi=367) Negative Negative UROBILINOGEN UA (BEAKER) (test rexj=949) 0.2 mg/dL 0.2-1.0 SOURCE(BEAKER) (test wnmn=6176) URINALYSIS [id number] 00:58:00 Test Item Value Reference Range Comments RBC UA (BEAKER) (test nvpa=160) 1 /HPF WBC UA (BEAKER) (test vwhn=857) 1 /HPF SQUAMOUS EPITHELIAL (BEAKER) (test otkn=625) < /HPF AMORPHOUS CRYSTALS (BEAKER) (test ooib=2473) Occasional CT, BRAIN/STROKE [id number] 23:16:00FINAL REPORT CT Head without contrast CLINICAL HISTORY: Decreased alertness TECHNIQUE: Contiguous axial images through the head without contrast. This exam was performed according to the departmental dose optimization program which includes automated exposure control, adjustmentof the mA and/or kV according to the [...] at 03/02/2018, 11:15 PM. Signed: David Jha Verified Date/Time: 03/02/2018 23:16:55 Reading Location: [address] Transitional Reading Room LACTIC ACID, VENOUS, WHOLE [id number] 22:01:00 Test Item Value Reference Range Comments LACTATE BLOOD VENOUS (2) (BEAKER) (test 1.6 mmol/L 0.5-2.2 qhon=2777) POCT-GLUCOSE [id number] 21:31:00 Test Item Value Reference Range Comments POC-GLUCOSE METER (BEAKER) 207 mg/dL 70-110 TESTED AT [facility] [address] [facility] (test pqed=5684) [facility] [address] OCCULT BLOOD, [id number] 19:48:00 Test Item Value Reference Range Comments FECAL OCCULT BLOOD (BEAKER) (test wxau=844) Positive Negative BASIC METABOLIC [id number] 17:26:00 Test Item Value Reference Range Comments SODIUM (BEAKER) (test 147 meq/L 136-145 frbz=788) POTASSIUM (BEAKER) (test 3.9 meq/L 3.5-5.1 nydi=789) CHLORIDE (BEAKER) (test 114 meq/L 98-107 qstl=087) CO2 (BEAKER) (test 24 meq/L 22-29 pods=659) BLOOD UREA NITROGEN 33 mg/dL 7-21 (BEAKER) (test jcgj=637) CREATININE (BEAKER) (test 1.12 mg/dL 0.57-1.25 snid=466) GLUCOSE RANDOM (BEAKER) 176 mg/dL 70-105 (test lzuo=973) CALCIUM (BEAKER) (test 9.6 mg/dL 8.4-10.2 twek=481) EGFR (BEAKER) (test 62 mL/min/1.73 sq m ESTIMATED GFR IS NOT gmrn=7023) ACCURATE CREATININE CLEARANCE IN PREDICTING GLOMERULAR FILTRATION RATE. ESTIMATED GFR IS NOT APPLICABLE FOR DIALYSIS PATIENTS. HEMOGLOBIN AND [id number] 17:09:00 Test Item Value Reference Range Comments HEMOGLOBIN (BEAKER) (test bhcr=022) 8.2 GM/DL 13.7-17.5 HEMATOCRIT (BEAKER) (test pupn=706) 25.7 % 40.1-51.0 POCT-GLUCOSE [id number] 16:40:00 Test Item Value Reference Range Comments POC-GLUCOSE METER (BEAKER) 212 mg/dL 70-110 TESTED AT [address] (test miqu=6174) [facility] [address] CT, BRAIN, WITHOUT [id number] 12:26:00FINAL REPORT CT head without contrast 03/02/2018 12:24 [...] with MRI is recommended. Signed: Zelalem Gaona Verified Date/Time: 03/02/2018 12:26:23 Reading Location: [facility] Neuro Reading Room HEMOGLOBIN AND [id number] 12:14:00 Test Item Value Reference Range Comments HEMOGLOBIN (BEAKER) (test mcgg=747) 8.3 GM/DL 13.7-17.5 HEMATOCRIT (BEAKER) (test irig=640) 25.9 % 40.1-51.0 POCT-GLUCOSE [id number] 10:26:00 Test Item Value Reference Range Comments POC-GLUCOSE METER (BEAKER) 178 mg/dL 70-110 TESTED AT [address] (test bhhp=7557) [facility] [address] [id number] 05:10:00 Test Item Value Reference Range Comments MAGNESIUM (BEAKER) (test bghj=666) 2.2 mg/dL 1.6-2.6 BASIC METABOLIC [id number] 05:10:00 Test Item Value Reference Range Comments SODIUM (BEAKER) (test 147 meq/L 136-145 cyfx=498) POTASSIUM (BEAKER) (test 3.3 meq/L 3.5-5.1 apkm=334) CHLORIDE (BEAKER) (test 111 meq/L 98-107 qqpq=259) CO2 (BEAKER) (test 25 meq/L 22-29 uriu=962) BLOOD UREA NITROGEN 37 mg/dL 7-21 (BEAKER) (test wqdb=328) CREATININE (BEAKER) (test 1.06 mg/dL 0.57-1.25 snqo=977) GLUCOSE RANDOM (BEAKER) 150 mg/dL 70-105 (test lhhk=885) CALCIUM (BEAKER) (test 9.3 mg/dL 8.4-10.2 mrmo=408) EGFR (BEAKER) (test 66 mL/min/1.73 sq m ESTIMATED GFR IS NOT safl=2699) ACCURATE CREATININE CLEARANCE IN PREDICTING GLOMERULAR FILTRATION RATE. ESTIMATED GFR IS NOT APPLICABLE FOR DIALYSIS PATIENTS. CBC (HEMOGRAM ONLY)2018-03-02 04:53:00 Test Item Value Reference Range Comments WHITE BLOOD CELL COUNT (BEAKER) (test yrap=686) 4.9 K/ L 3.5-10.5 RED BLOOD CELL COUNT (BEAKER) (test dcup=105) 2.39 M/ L 4.63-6.08 HEMOGLOBIN (BEAKER) (test zkvl=778) 8.1 GM/DL 13.7-17.5 HEMATOCRIT (BEAKER) (test ecgh=283) 24.7 % 40.1-51.0 MEAN CORPUSCULAR VOLUME (BEAKER) (test codo=410) 103.3 fL 79.0-92.2 MEAN CORPUSCULAR HEMOGLOBIN (BEAKER) (test 33.9 pg 25.7-32.2 moch=860) MEAN CORPUSCULAR HEMOGLOBIN CONC (BEAKER) (test 32.8 GM/DL 32.3-36.5 czwq=511) RED CELL DISTRIBUTION WIDTH (BEAKER) (test 13.7 % 11.6-14.4 vssu=726) PLATELET COUNT (BEAKER) (test mmha=406) 99 K/CU MM 150-450 MEAN PLATELET VOLUME (BEAKER) (test kihu=619) 10.9 fL 9.4-12.4 NUCLEATED RED BLOOD CELLS (BEAKER) (test 0 /100 WBC 0-0 lkzk=876) BASIC METABOLIC [id number] 06:30:00 Test Item Value Reference Range Comments SODIUM (BEAKER) (test 130 meq/L 136-145 yola=586) POTASSIUM (BEAKER) (test 4.2 meq/L 3.5-5.1 vzei=406) CHLORIDE (BEAKER) (test 99 meq/L 98-107 txcq=738) CO2 (BEAKER) (test 23 meq/L 22-29 rrff=963) BLOOD UREA NITROGEN 25 mg/dL 7-21 (BEAKER) (test cttk=577) CREATININE (BEAKER) (test 1.64 mg/dL 0.57-1.25 tphn=418) GLUCOSE RANDOM (BEAKER) 154 mg/dL 70-105 (test xhum=780) CALCIUM (BEAKER) (test 8.7 mg/dL 8.4-10.2 pppo=393) EGFR (BEAKER) (test 40 mL/min/1.73 sq m ESTIMATED GFR IS NOT fhno=8167) ACCURATE CREATININE CLEARANCE IN PREDICTING GLOMERULAR FILTRATION RATE. ESTIMATED GFR IS NOT APPLICABLE FOR DIALYSIS PATIENTS. CBC W/PLT COUNT & AUTO [id number] 06:30:00 Test Item Value Reference Range Comments WHITE BLOOD CELL COUNT (BEAKER) (test znrj=602) 4.6 K/ L 3.5-10.5 RED BLOOD CELL COUNT (BEAKER) (test vptz=500) 2.50 M/ L 4.63-6.08 HEMOGLOBIN (BEAKER) (test ytar=809) 8.4 GM/DL 13.7-17.5 HEMATOCRIT (BEAKER) (test zsrp=978) 26.3 % 40.1-51.0 MEAN CORPUSCULAR VOLUME (BEAKER) (test hwtm=034) 105.2 fL 79.0-92.2 MEAN CORPUSCULAR HEMOGLOBIN (BEAKER) (test 33.6 pg 25.7-32.2 rssg=002) MEAN CORPUSCULAR HEMOGLOBIN CONC (BEAKER) (test 31.9 GM/DL 32.3-36.5 egai=923) RED CELL DISTRIBUTION WIDTH (BEAKER) (test 15.6 % 11.6-14.4 famx=298) PLATELET COUNT (BEAKER) (test ndxo=233) 62 K/CU MM 150-450 MEAN PLATELET VOLUME (BEAKER) (test jfxj=732) 10.9 fL 9.4-12.4 NUCLEATED RED BLOOD CELLS (BEAKER) (test 0 /100 WBC 0-0 bovw=127) NEUTROPHILS RELATIVE PERCENT (BEAKER) (test 62 % tgxj=846) LYMPHOCYTES RELATIVE PERCENT (BEAKER) (test 18 % ardu=623) MONOCYTES RELATIVE PERCENT (BEAKER) (test 17 % ixtt=234) EOSINOPHILS RELATIVE PERCENT (BEAKER) (test 3 % tgby=055) BASOPHILS RELATIVE PERCENT (BEAKER) (test 0 % uciq=911) NEUTROPHILS ABSOLUTE COUNT (BEAKER) (test 2.88 K/ L 1.78-5.38 vudr=672) LYMPHOCYTES ABSOLUTE COUNT (BEAKER) (test 0.82 K/ L 1.32-3.57 vdww=871) MONOCYTES ABSOLUTE COUNT (BEAKER) (test htpp=785) 0.78 K/ L 0.30-0.82 EOSINOPHILS ABSOLUTE COUNT (BEAKER) (test 0.12 K/ L 0.04-0.54 bbvi=474) BASOPHILS ABSOLUTE COUNT (BEAKER) (test sqar=538) 0.01 K/ L 0.01-0.08 IMMATURE GRANULOCYTES-RELATIVE PERCENT (BEAKER) 0 % 0-1 (test eimg=4704) RAD, CHEST, 1 VIEW, NON [id number] 04:10:00post-operative day 1Reason for exam:->chfShould this be [...] Stable surgical changes.Additional findings: None. Signed: David Jha Verified Date/Time: 09/11/2017 04:10:08 Reading Location: [address] Reading Room BASIC METABOLIC [id number] 04:02:00 Test Item Value Reference Range Comments SODIUM (BEAKER) (test 136 meq/L 136-145 beau=656) POTASSIUM (BEAKER) (test 3.8 meq/L 3.5-5.1 bkyp=223) CHLORIDE (BEAKER) (test 104 meq/L 98-107 fmnb=181) CO2 (BEAKER) (test 22 meq/L 22-29 jxlz=156) BLOOD UREA NITROGEN 16 mg/dL 7-21 (BEAKER) (test qbks=529) CREATININE (BEAKER) (test 0.92 mg/dL 0.57-1.25 szig=582) GLUCOSE RANDOM (BEAKER) 132 mg/dL 70-105 (test mysp=445) CALCIUM (BEAKER) (test 8.9 mg/dL 8.4-10.2 ukjo=991) EGFR (BEAKER) (test 78 mL/min/1.73 sq m ESTIMATED GFR IS NOT oixj=5540) ACCURATE CREATININE CLEARANCE IN PREDICTING GLOMERULAR FILTRATION RATE. ESTIMATED GFR IS NOT APPLICABLE FOR DIALYSIS PATIENTS. Specimen slightly ictericCBC W/PLT COUNT & AUTO [id number] 03:48 :00 Test Item Value Reference Range Comments WHITE BLOOD CELL COUNT (BEAKER) (test ddwv=504) 5.7 K/ L 3.5-10.5 RED BLOOD CELL COUNT (BEAKER) (test mjjc=039) 2.73 M/ L 4.63-6.08 HEMOGLOBIN (BEAKER) (test fctd=510) 9.2 GM/DL 13.7-17.5 HEMATOCRIT (BEAKER) (test ecsh=853) 29.1 % 40.1-51.0 MEAN CORPUSCULAR VOLUME (BEAKER) (test uwwe=463) 106.6 fL 79.0-92.2 MEAN CORPUSCULAR HEMOGLOBIN (BEAKER) (test 33.7 pg 25.7-32.2 ilwa=865) MEAN CORPUSCULAR HEMOGLOBIN CONC (BEAKER) (test 31.6 GM/DL 32.3-36.5 kkka=056) RED CELL DISTRIBUTION WIDTH (BEAKER) (test 15.4 % 11.6-14.4 rtjo=979) PLATELET COUNT (BEAKER) (test nhsy=810) 84 K/CU MM 150-450 MEAN PLATELET VOLUME (BEAKER) (test wryi=266) 10.3 fL 9.4-12.4 NUCLEATED RED BLOOD CELLS (BEAKER) (test 0 /100 WBC 0-0 ynge=044) NEUTROPHILS RELATIVE PERCENT (BEAKER) (test 76 % ytsf=280) LYMPHOCYTES RELATIVE PERCENT (BEAKER) (test 10 % ipsw=553) MONOCYTES RELATIVE PERCENT (BEAKER) (test 10 % ualg=311) EOSINOPHILS RELATIVE PERCENT (BEAKER) (test 3 % frvp=142) BASOPHILS RELATIVE PERCENT (BEAKER) (test 0 % afoe=435) NEUTROPHILS ABSOLUTE COUNT (BEAKER) (test 4.33 K/ L 1.78-5.38 gvbh=322) LYMPHOCYTES ABSOLUTE COUNT (BEAKER) (test 0.59 K/ L 1.32-3.57 nujv=796) MONOCYTES ABSOLUTE COUNT (BEAKER) (test gfnk=457) 0.57 K/ L 0.30-0.82 EOSINOPHILS ABSOLUTE COUNT (BEAKER) (test 0.16 K/ L 0.04-0.54 hsfm=103) BASOPHILS ABSOLUTE COUNT (BEAKER) (test qsft=463) 0.02 K/ L 0.01-0.08 IMMATURE GRANULOCYTES-RELATIVE PERCENT (BEAKER) 0 % 0-1 (test gbrf=6469) [id number] 16:36:00 Test Item Value Reference Range Comments ACTIVATED CLOTTING TIME 142 sec TESTED AT [facility] [address] (BEAKER) (test spkp=578) [facility] [address] [id number] 16:02:00 Test Item Value Reference Range Comments ACTIVATED CLOTTING TIME 279 sec TESTED AT [place] [id number] (BEAKER) (test sqjw=953) [facility] [address] [id number] 16:02:00 Test Item Value Reference Range Comments ACTIVATED CLOTTING TIME 252 sec TESTED AT [facility] [address] (BEAKER) (test qjdj=685) [facility] [address] B-TYPE NATRIURETIC FACTOR (BNP)2017-08-24 15:17:00 Test Item Value Reference Range Comments B-TYPE NATRIURETIC PEPTIDE (BEAKER) (test 170 pg/mL 0-100 aput=197) BASIC METABOLIC [id number] 15:08:00 Test Item Value Reference Range Comments SODIUM (BEAKER) (test 139 meq/L 136-145 whwd=427) POTASSIUM (BEAKER) (test 4.1 meq/L 3.5-5.1 vhig=706) CHLORIDE (BEAKER) (test 99 meq/L 98-107 qvzq=439) CO2 (BEAKER) (test 33 meq/L 22-29 dyzz=937) BLOOD UREA NITROGEN 20 mg/dL 7-21 (BEAKER) (test rvhh=030) CREATININE (BEAKER) (test 1.02 mg/dL 0.57-1.25 wjhg=218) GLUCOSE RANDOM (BEAKER) 132 mg/dL 70-105 (test gowz=560) CALCIUM (BEAKER) (test 9.9 mg/dL 8.4-10.2 wspl=010) EGFR (BEAKER) (test 69 mL/min/1.73 sq m ESTIMATED GFR IS NOT lmhu=5538) ACCURATE CREATININE CLEARANCE IN PREDICTING GLOMERULAR FILTRATION RATE. ESTIMATED GFR IS NOT APPLICABLE FOR DIALYSIS PATIENTS. Specimen slightly [id number] 15:08:00 Test Item Value Reference Range Comments ALBUMIN (BEAKER) (test mttq=0718) 4.2 g/dL 3.5-5.0 PROTHROMBIN [id number] 14:59:00 Test Item Value Reference Range Comments PROTIME (BEAKER) (test tecz=351) 16.7 seconds 11.7-14.7 INR (BEAKER) (test bucz=169) 1.4 <=5.9 RECOMMENDED COUMADIN/WARFARIN INR THERAPY RANGESSTANDARD DOSE: 2.0 - 3.0 Includes: PROPHYLAXIS forvenous thrombosis, systemic embolization; TREATMENT for venous thrombosis and/or pulmonary embolus.HIGH RISK: Target INR is 2.5-3.5 for patients with mechanical heart valves.CBC W/PLT COUNT & AUTO [id number] 14:53:00 Test Item Value Reference Range Comments WHITE BLOOD CELL COUNT (BEAKER) (test snrt=246) 3.7 K/ L 3.5-10.5 RED BLOOD CELL COUNT (BEAKER) (test jhxy=001) 3.11 M/ L 4.63-6.08 HEMOGLOBIN (BEAKER) (test kckx=362) 10.5 GM/DL 13.7-17.5 HEMATOCRIT (BEAKER) (test szdo=578) 32.3 % 40.1-51.0 MEAN CORPUSCULAR VOLUME (BEAKER) (test thhf=037) 103.9 fL 79.0-92.2 MEAN CORPUSCULAR HEMOGLOBIN (BEAKER) (test 33.8 pg 25.7-32.2 snit=550) MEAN CORPUSCULAR HEMOGLOBIN CONC (BEAKER) (test 32.5 GM/DL 32.3-36.5 zmxa=665) RED CELL DISTRIBUTION WIDTH (BEAKER) (test 15.8 % 11.6-14.4 bmbv=337) PLATELET COUNT (BEAKER) (test kisp=919) 139 K/CU MM 150-450 MEAN PLATELET VOLUME (BEAKER) (test eepy=516) 10.2 fL 9.4-12.4 NUCLEATED RED BLOOD CELLS (BEAKER) (test 0 /100 WBC 0-0 opin=034) NEUTROPHILS RELATIVE PERCENT (BEAKER) (test 59 % mepb=867) LYMPHOCYTES RELATIVE PERCENT (BEAKER) (test 23 % fkrx=212) MONOCYTES RELATIVE PERCENT (BEAKER) (test 13 % ghzo=578) EOSINOPHILS RELATIVE PERCENT (BEAKER) (test 4 % jfdl=498) BASOPHILS RELATIVE PERCENT (BEAKER) (test 1 % xehi=673) NEUTROPHILS ABSOLUTE COUNT (BEAKER) (test 2.18 K/ L 1.78-5.38 vddk=634) LYMPHOCYTES ABSOLUTE COUNT (BEAKER) (test 0.86 K/ L 1.32-3.57 hoiw=361) MONOCYTES ABSOLUTE COUNT (BEAKER) (test 0.46 K/ L 0.30-0.82 kbht=052) EOSINOPHILS ABSOLUTE COUNT (BEAKER) (test 0.14 K/ L 0.04-0.54 hghq=081) BASOPHILS ABSOLUTE COUNT (BEAKER) (test 0.04 K/ L 0.01-0.08 qaxf=871) IMMATURE GRANULOCYTES-RELATIVE PERCENT (BEAKER) 0 % 0-1 (test yvcy=1835) BASIC METABOLIC [id number] 06:31:00 Test Item Value Reference Range Comments SODIUM (BEAKER) (test 136 meq/L 136-145 pnum=814) POTASSIUM (BEAKER) (test 4.4 meq/L 3.5-5.1 kvdu=017) CHLORIDE (BEAKER) (test 94 meq/L 98-107 ofyu=936) CO2 (BEAKER) (test 37 meq/L 22-29 vneo=354) BLOOD UREA NITROGEN 26 mg/dL 7-21 (BEAKER) (test cgqs=099) CREATININE (BEAKER) (test 1.07 mg/dL 0.57-1.25 wxye=941) GLUCOSE RANDOM (BEAKER) 115 mg/dL 70-105 (test owbf=228) CALCIUM (BEAKER) (test 9.6 mg/dL 8.4-10.2 locx=478) EGFR (BEAKER) (test 66 mL/min/1.73 sq m ESTIMATED GFR IS NOT axrn=8098) ACCURATE CREATININE CLEARANCE IN PREDICTING GLOMERULAR FILTRATION RATE. ESTIMATED GFR IS NOT APPLICABLE FOR DIALYSIS PATIENTS. URINALYSIS W/ [id number] 17:39:00 Test Item Value Reference Range Comments COLOR (BEAKER) (test knxv=357) Yellow CLARITY (BEAKER) (test jdto=605) Cloudy SPECIFIC GRAVITY UA (BEAKER) (test 1.012 1.001-1.035 sofg=465) PH UA (BEAKER) (test ifof=320) 6.5 5.0-8.0 PROTEIN UA (BEAKER) (test dovy=763) 50 mg/dL Negative GLUCOSE UA (BEAKER) (test eevm=387) Negative Negative KETONES UA (BEAKER) (test taxc=247) Negative Negative BILIRUBIN UA (BEAKER) (test dvoe=503) Negative Negative BLOOD UA (BEAKER) (test cppg=177) Small Negative NITRITE UA (BEAKER) (test rulo=904) Negative Negative LEUKOCYTE ESTERASE UA (BEAKER) (test Large Negative pjdm=492) UROBILINOGEN UA (BEAKER) (test uijo=931) 0.2 mg/dL 0.2-1.0 RBC UA (BEAKER) (test yhat=931) 0 /HPF WBC UA (BEAKER) (test wqmu=273) > /HPF BACTERIA (BEAKER) (test bkuy=148) Moderate SOURCE(BEAKER) (test zwhu=9620) Urine, Clean Catch BASIC METABOLIC [id number] 05:57:00 Test Item Value Reference Range Comments SODIUM (BEAKER) (test 135 meq/L 136-145 yquy=935) POTASSIUM (BEAKER) (test 4.3 meq/L 3.5-5.1 wsuu=147) CHLORIDE (BEAKER) (test 93 meq/L 98-107 mvrr=695) CO2 (BEAKER) (test 32 meq/L 22-29 gacy=106) BLOOD UREA NITROGEN 33 mg/dL 7-21 (BEAKER) (test wujb=471) CREATININE (BEAKER) (test 1.10 mg/dL 0.57-1.25 flqr=920) GLUCOSE RANDOM (BEAKER) 113 mg/dL 70-105 (test zltw=275) CALCIUM (BEAKER) (test 9.2 mg/dL 8.4-10.2 fhvy=439) EGFR (BEAKER) (test 63 mL/min/1.73 sq m ESTIMATED GFR IS NOT pabh=2323) ACCURATE CREATININE CLEARANCE IN PREDICTING GLOMERULAR FILTRATION RATE. ESTIMATED GFR IS NOT APPLICABLE FOR DIALYSIS PATIENTS. CBC W/PLT COUNT & AUTO [id number] 05:36:00 Test Item Value Reference Range Comments WHITE BLOOD CELL COUNT (BEAKER) (test eoxo=460) 4.8 K/ L 3.5-10.5 RED BLOOD CELL COUNT (BEAKER) (test josg=581) 2.77 M/ L 4.63-6.08 HEMOGLOBIN (BEAKER) (test ammi=822) 9.1 GM/DL 13.7-17.5 HEMATOCRIT (BEAKER) (test gkvp=122) 27.9 % 40.1-51.0 MEAN CORPUSCULAR VOLUME (BEAKER) (test qpgc=085) 100.7 fL 79.0-92.2 MEAN CORPUSCULAR HEMOGLOBIN (BEAKER) (test 32.9 pg 25.7-32.2 jere=002) MEAN CORPUSCULAR HEMOGLOBIN CONC (BEAKER) (test 32.6 GM/DL 32.3-36.5 aodb=424) RED CELL DISTRIBUTION WIDTH (BEAKER) (test 14.6 % 11.6-14.4 eeqv=899) PLATELET COUNT (BEAKER) (test xhhk=161) 176 K/CU MM 150-450 MEAN PLATELET VOLUME (BEAKER) (test evxj=064) 9.8 fL 9.4-12.4 NUCLEATED RED BLOOD CELLS (BEAKER) (test 0 /100 WBC 0-0 wfql=884) NEUTROPHILS RELATIVE PERCENT (BEAKER) (test 63 % ibxt=851) LYMPHOCYTES RELATIVE PERCENT (BEAKER) (test 14 % fouk=602) MONOCYTES RELATIVE PERCENT (BEAKER) (test 13 % yhav=824) EOSINOPHILS RELATIVE PERCENT (BEAKER) (test 10 % xpww=133) BASOPHILS RELATIVE PERCENT (BEAKER) (test 1 % yvoc=155) NEUTROPHILS ABSOLUTE COUNT (BEAKER) (test 3.05 K/ L 1.78-5.38 tucf=943) LYMPHOCYTES ABSOLUTE COUNT (BEAKER) (test 0.66 K/ L 1.32-3.57 mcmm=986) MONOCYTES ABSOLUTE COUNT (BEAKER) (test 0.61 K/ L 0.30-0.82 tyyo=362) EOSINOPHILS ABSOLUTE COUNT (BEAKER) (test 0.46 K/ L 0.04-0.54 sfiz=977) BASOPHILS ABSOLUTE COUNT (BEAKER) (test 0.04 K/ L 0.01-0.08 llzo=131) IMMATURE GRANULOCYTES-RELATIVE PERCENT (BEAKER) 0 % 0-1 (test gavg=1583) BASIC METABOLIC [id number] 07:35:00 Test Item Value Reference Range Comments SODIUM (BEAKER) (test 134 meq/L 136-145 pbpi=253) POTASSIUM (BEAKER) (test 3.7 meq/L 3.5-5.1 xzod=935) CHLORIDE (BEAKER) (test 95 meq/L 98-107 wfbf=257) CO2 (BEAKER) (test 27 meq/L 22-29 tvyi=024) BLOOD UREA NITROGEN 30 mg/dL 7-21 (BEAKER) (test papx=408) CREATININE (BEAKER) (test 1.04 mg/dL 0.57-1.25 odpb=183) GLUCOSE RANDOM (BEAKER) 101 mg/dL 70-105 (test mhtb=347) CALCIUM (BEAKER) (test 8.9 mg/dL 8.4-10.2 qdhf=930) EGFR (BEAKER) (test 68 mL/min/1.73 sq m ESTIMATED GFR IS NOT bxtc=2151) ACCURATE CREATININE CLEARANCE IN PREDICTING GLOMERULAR FILTRATION RATE. ESTIMATED GFR IS NOT APPLICABLE FOR DIALYSIS PATIENTS. Specimen slightly ictericBASIC METABOLIC [id number] 06:09:00 Test Item Value Reference Range Comments SODIUM (BEAKER) (test 133 meq/L 136-145 tyoh=018) POTASSIUM (BEAKER) (test 3.9 meq/L 3.5-5.1 lpkg=669) CHLORIDE (BEAKER) (test 97 meq/L 98-107 dhoo=857) CO2 (BEAKER) (test 28 meq/L 22-29 rhjp=303) BLOOD UREA NITROGEN 20 mg/dL 7-21 (BEAKER) (test ulyn=509) CREATININE (BEAKER) (test 0.92 mg/dL 0.57-1.25 bmsf=731) GLUCOSE RANDOM (BEAKER) 97 mg/dL 70-105 (test icqc=923) CALCIUM (BEAKER) (test 8.8 mg/dL 8.4-10.2 ubfg=533) EGFR (BEAKER) (test 78 mL/min/1.73 sq m ESTIMATED GFR IS NOT qqgi=1685) ACCURATE CREATININE CLEARANCE IN PREDICTING GLOMERULAR FILTRATION RATE. ESTIMATED GFR IS NOT APPLICABLE FOR DIALYSIS PATIENTS. Specimen slightly ictericB-TYPE NATRIURETIC FACTOR (BNP)2017-07-29 06:01:00 Test Item Value Reference Range Comments B-TYPE NATRIURETIC PEPTIDE (BEAKER) (test 109 pg/mL 0-100 tjyi=825) RAD, CHEST, 1 VIEW, NON [id number] 17:23:00Reason for exam:->chfShould this be performed at [...] wires are intact and well aligned. Signed: Ravi [place] Verified Date/Time: 07/28/2017 17:23:24 Reading Location: [facility] Radiology Reading Room URINE [id number] 10:09:00 Test Item Value Reference Range Comments CULTURE (BEAKER) (test KLEBSIELLA PNEUMONIAE >100,000 col/mL gmed=2662) SSP PNEUMONIAE Klebsiella pneumoniae ssp pneumoniae Amikacin [...] code=47) CULTURE (BEAKER) (test STENOTROPHOMONAS 50-59,000 col/mL ikku=3681) MALTOPHILIA Stenotrophomonas maltophilia Ceftazidime (test Susceptible 0-8 , code=27) Resistant <0 or >8 Levofloxacin (test Susceptible 0-2 , code=22) Resistant <0 or >2 Minocycline (test Susceptible 0-4 , code=35) Resistant <0 or >4 Ticarcillin + Susceptible 0-16 Clavulanic Acid (test , Resistant <0 or code=80) >16 Trimethoprim + Susceptible 0-40 Sulfamethoxazole (test , Resistant <0 or code=47) >40 COMPREHENSIVE METABOLIC [id number] 07:06:00 Test Item Value Reference Range Comments TOTAL PROTEIN (BEAKER) 6.3 gm/dL 6.0-8.3 (test qwst=173) ALBUMIN (BEAKER) (test 3.4 g/dL 3.5-5.0 eqty=6048) ALKALINE PHOSPHATASE 122 U/L 40-150 (BEAKER) (test ipvy=165) BILIRUBIN TOTAL (BEAKER) 2.2 mg/dL 0.2-1.2 (test wbhk=107) SODIUM (BEAKER) (test 137 meq/L 136-145 fson=102) POTASSIUM (BEAKER) (test 4.8 meq/L 3.5-5.1 pixv=760) CHLORIDE (BEAKER) (test 102 meq/L 98-107 yvfk=659) CO2 (BEAKER) (test 27 meq/L 22-29 pise=985) BLOOD UREA NITROGEN 17 mg/dL 7-21 (BEAKER) (test cmij=350) CREATININE (BEAKER) (test 0.80 mg/dL 0.57-1.25 uxtx=423) GLUCOSE RANDOM (BEAKER) 122 mg/dL 70-105 (test mzss=472) CALCIUM (BEAKER) (test 9.1 mg/dL 8.4-10.2 mnfb=770) AST (SGOT) (BEAKER) (test 31 U/L 5-34 tlkz=149) ALT (SGPT) (BEAKER) (test 19 U/L 6-55 wcnr=185) EGFR (BEAKER) (test 92 mL/min/1.73 sq m ESTIMATED GFR IS NOT lvyq=9918) ACCURATE CREATININE CLEARANCE IN PREDICTING GLOMERULAR FILTRATION RATE. ESTIMATED GFR IS NOT APPLICABLE FOR DIALYSIS PATIENTS. Specimen slightly ictericCBC W/PLT COUNT & AUTO [id number] 06:35 :00 Test Item Value Reference Range Comments WHITE BLOOD CELL COUNT (BEAKER) (test xsea=068) 6.0 K/ L 3.5-10.5 RED BLOOD CELL COUNT (BEAKER) (test hsjx=322) 2.86 M/ L 4.63-6.08 HEMOGLOBIN (BEAKER) (test djcm=783) 9.6 GM/DL 13.7-17.5 HEMATOCRIT (BEAKER) (test tont=073) 29.2 % 40.1-51.0 MEAN CORPUSCULAR VOLUME (BEAKER) (test vngu=101) 102.1 fL 79.0-92.2 MEAN CORPUSCULAR HEMOGLOBIN (BEAKER) (test 33.6 pg 25.7-32.2 jprp=746) MEAN CORPUSCULAR HEMOGLOBIN CONC (BEAKER) (test 32.9 GM/DL 32.3-36.5 qtjs=571) RED CELL DISTRIBUTION WIDTH (BEAKER) (test 14.7 % 11.6-14.4 pdtr=505) PLATELET COUNT (BEAKER) (test kryy=004) 169 K/CU MM 150-450 MEAN PLATELET VOLUME (BEAKER) (test dzet=412) 9.8 fL 9.4-12.4 NUCLEATED RED BLOOD CELLS (BEAKER) (test 0 /100 WBC 0-0 gsvx=693) NEUTROPHILS RELATIVE PERCENT (BEAKER) (test 69 % vgva=534) LYMPHOCYTES RELATIVE PERCENT (BEAKER) (test 12 % kutn=560) MONOCYTES RELATIVE PERCENT (BEAKER) (test 11 % sgnx=145) EOSINOPHILS RELATIVE PERCENT (BEAKER) (test 7 % uafk=233) BASOPHILS RELATIVE PERCENT (BEAKER) (test 0 % pycq=954) NEUTROPHILS ABSOLUTE COUNT (BEAKER) (test 4.13 K/ L 1.78-5.38 wysl=205) LYMPHOCYTES ABSOLUTE COUNT (BEAKER) (test 0.70 K/ L 1.32-3.57 uokn=654) MONOCYTES ABSOLUTE COUNT (BEAKER) (test 0.67 K/ L 0.30-0.82 nayr=599) EOSINOPHILS ABSOLUTE COUNT (BEAKER) (test 0.44 K/ L 0.04-0.54 hayd=743) BASOPHILS ABSOLUTE COUNT (BEAKER) (test 0.02 K/ L 0.01-0.08 zcwm=246) IMMATURE GRANULOCYTES-RELATIVE PERCENT (BEAKER) 1 % 0-1 (test qbkg=8685) URINALYSIS W/ [id number] 18:38:00 Test Item Value Reference Range Comments COLOR (BEAKER) (test nmrb=226) Yellow CLARITY (BEAKER) (test uhhk=665) Clear SPECIFIC GRAVITY UA (BEAKER) (test 1.005 1.001-1.035 flmd=330) PH UA (BEAKER) (test fjxh=187) 6.5 5.0-8.0 PROTEIN UA (BEAKER) (test wbrw=434) Negative Negative GLUCOSE UA (BEAKER) (test yebj=977) Negative Negative KETONES UA (BEAKER) (test xqjx=070) Negative Negative BILIRUBIN UA (BEAKER) (test unwr=913) Negative Negative BLOOD UA (BEAKER) (test gwjd=956) Negative Negative NITRITE UA (BEAKER) (test ssju=030) Negative Negative LEUKOCYTE ESTERASE UA (BEAKER) (test Negative Negative qtjn=643) UROBILINOGEN UA (BEAKER) (test vvyd=860) 0.2 mg/dL 0.2-1.0 RBC UA (BEAKER) (test wlvg=806) 0 /HPF WBC UA (BEAKER) (test wamv=061) < /HPF SOURCE(BEAKER) (test aghm=2029) Urine, Clean Catch CBC W/PLT COUNT & AUTO [id number] 04:47:00 Test Item Value Reference Range Comments WHITE BLOOD CELL COUNT (BEAKER) (test nywc=019) 5.5 K/ L 3.5-10.5 RED BLOOD CELL COUNT (BEAKER) (test qswr=456) 2.72 M/ L 4.63-6.08 HEMOGLOBIN (BEAKER) (test orja=697) 8.9 GM/DL 13.7-17.5 HEMATOCRIT (BEAKER) (test smhx=742) 27.1 % 40.1-51.0 MEAN CORPUSCULAR VOLUME (BEAKER) (test btal=568) 99.6 fL 79.0-92.2 MEAN CORPUSCULAR HEMOGLOBIN (BEAKER) (test 32.7 pg 25.7-32.2 fyms=112) MEAN CORPUSCULAR HEMOGLOBIN CONC (BEAKER) (test 32.8 GM/DL 32.3-36.5 xrmk=730) RED CELL DISTRIBUTION WIDTH (BEAKER) (test 15.0 % 11.6-14.4 tnqd=131) PLATELET COUNT (BEAKER) (test ijwi=712) 149 K/CU MM 150-450 MEAN PLATELET VOLUME (BEAKER) (test vkbc=939) 10.0 fL 9.4-12.4 NUCLEATED RED BLOOD CELLS (BEAKER) (test 0 /100 WBC 0-0 lref=564) NEUTROPHILS RELATIVE PERCENT (BEAKER) (test 62 % ufeg=596) LYMPHOCYTES RELATIVE PERCENT (BEAKER) (test 13 % tlrg=042) MONOCYTES RELATIVE PERCENT (BEAKER) (test 14 % kget=900) EOSINOPHILS RELATIVE PERCENT (BEAKER) (test 9 % zamf=498) BASOPHILS RELATIVE PERCENT (BEAKER) (test 1 % zyee=807) NEUTROPHILS ABSOLUTE COUNT (BEAKER) (test 3.40 K/ L 1.78-5.38 whnz=847) LYMPHOCYTES ABSOLUTE COUNT (BEAKER) (test 0.72 K/ L 1.32-3.57 lmkt=493) MONOCYTES ABSOLUTE COUNT (BEAKER) (test 0.76 K/ L 0.30-0.82 ggyr=854) EOSINOPHILS ABSOLUTE COUNT (BEAKER) (test 0.50 K/ L 0.04-0.54 wrtt=536) BASOPHILS ABSOLUTE COUNT (BEAKER) (test 0.03 K/ L 0.01-0.08 oxdj=927) IMMATURE GRANULOCYTES-RELATIVE PERCENT (BEAKER) 1 % 0-1 (test wxmh=6101) BASIC METABOLIC [id number] 04:36:00 Test Item Value Reference Range Comments SODIUM (BEAKER) (test 138 meq/L 136-145 brjo=504) POTASSIUM (BEAKER) (test 4.2 meq/L 3.5-5.1 odos=393) CHLORIDE (BEAKER) (test 104 meq/L 98-107 jiep=681) CO2 (BEAKER) (test 28 meq/L 22-29 bpxf=004) BLOOD UREA NITROGEN 16 mg/dL 7-21 (BEAKER) (test zqny=101) CREATININE (BEAKER) (test 0.79 mg/dL 0.57-1.25 psxy=884) GLUCOSE RANDOM (BEAKER) 102 mg/dL 70-105 (test wcgc=621) CALCIUM (BEAKER) (test 8.8 mg/dL 8.4-10.2 eglh=887) EGFR (BEAKER) (test 93 mL/min/1.73 sq m ESTIMATED GFR IS NOT oonk=5752) ACCURATE CREATININE CLEARANCE IN PREDICTING GLOMERULAR FILTRATION RATE. ESTIMATED GFR IS NOT APPLICABLE FOR DIALYSIS PATIENTS. Specimen slightly ictericB-TYPE NATRIURETIC FACTOR (BNP)2017-07-24 04:34:00 Test Item Value Reference Range Comments B-TYPE NATRIURETIC PEPTIDE (BEAKER) (test 190 pg/mL 0-100 yhlt=468) [id number] 07:02:00 Test Item Value Reference Range Comments CORTISOL, TOTAL (BEAKER) (test dags=6743) 12.9 ug/dL 3.7-19.4 CBC (HEMOGRAM ONLY)2017-07-23 06:17:00 Test Item Value Reference Range Comments WHITE BLOOD CELL COUNT (BEAKER) (test dogj=361) 6.3 K/ L 3.5-10.5 RED BLOOD CELL COUNT (BEAKER) (test obvr=785) 2.84 M/ L 4.63-6.08 HEMOGLOBIN (BEAKER) (test fmds=141) 9.3 GM/DL 13.7-17.5 HEMATOCRIT (BEAKER) (test vpok=278) 28.1 % 40.1-51.0 MEAN CORPUSCULAR VOLUME (BEAKER) (test lpvr=101) 98.9 fL 79.0-92.2 MEAN CORPUSCULAR HEMOGLOBIN (BEAKER) (test 32.7 pg 25.7-32.2 ikqe=098) MEAN CORPUSCULAR HEMOGLOBIN CONC (BEAKER) (test 33.1 GM/DL 32.3-36.5 jdhg=091) RED CELL DISTRIBUTION WIDTH (BEAKER) (test 14.8 % 11.6-14.4 rfxj=176) PLATELET COUNT (BEAKER) (test sivo=692) 136 K/CU MM 150-450 MEAN PLATELET VOLUME (BEAKER) (test texo=789) 9.9 fL 9.4-12.4 NUCLEATED RED BLOOD CELLS (BEAKER) (test 0 /100 WBC 0-0 zkzg=112) CT, CTA, [id number] 16:16:00Addendum BeginsREPORT STATUS:A Addendum: July 22, 2017 at 1620 hours I have reviewed the CT images for this study and I concur with the nonvascular imaging findings as dictated. Signed: Sandip Christianson MDReport Verified Date/Time: 07/22/2017 16:16:14 Reading Location: [place] [address] Angio Body Reading RoomAddendum EndsFINAL REPORT CT [...] to the contrast sheet scanned in the [employer] system for the amount and route of [...] bypass surgery. The internal mammary arteries are [place]. A bypass graft is identified, that is [...] An addendum will be dictated by the Lifestyle Director Radiologist regarding the nonvascular findings. Signed: Abdoul Galloway Verified Date/Time: 07/22/2017 15:43:41 Reading Location: [place] [address], CTA [id number] 16:16:00TAVRAddendum BeginsREPORT STATUS:A Addendum: July 22, 2017 at 1620 hours I have reviewed the CT images for this study and I concur with the nonvascular imaging findings as dictated. Signed: Sandip Christianson Verified Date/Time: 07/22/2017 16:16:14 Reading Location: [place] [id number] Angio Body Reading RoomAddendum EndsFINAL REPORT CT [...] bypass surgery. The internal mammary arteries are [place]. A bypass graft is identified, that is [...] An addendum will be dictated by the Lifestyle Director Radiologist regarding the nonvascular findings. Signed: Abdoul Galloway Verified Date/Time: 07/22/2017 15:43:41 Reading Location: [place] [address] Cardiology MRI [facility] [id number] 05:06:00 Test Item Value Reference Range Comments SODIUM (BEAKER) (test 139 meq/L 136-145 lygy=959) POTASSIUM (BEAKER) (test 4.4 meq/L 3.5-5.1 kvxd=447) CHLORIDE (BEAKER) (test 106 meq/L 98-107 roth=149) CO2 (BEAKER) (test 24 meq/L 22-29 ayoq=964) BLOOD UREA NITROGEN 20 mg/dL 7-21 (BEAKER) (test xchj=754) CREATININE (BEAKER) (test 0.80 mg/dL 0.57-1.25 zgqc=096) GLUCOSE RANDOM (BEAKER) 110 mg/dL 70-105 (test duuw=037) CALCIUM (BEAKER) (test 9.3 mg/dL 8.4-10.2 osnb=907) EGFR (BEAKER) (test 92 mL/min/1.73 sq m ESTIMATED GFR IS NOT zihn=0236) ACCURATE CREATININE CLEARANCE IN PREDICTING GLOMERULAR FILTRATION RATE. ESTIMATED GFR IS NOT APPLICABLE FOR DIALYSIS PATIENTS. Specimen slightly ictericB-TYPE NATRIURETIC FACTOR (BNP)2017-07-22 05:00:00 Test Item Value Reference Range Comments B-TYPE NATRIURETIC PEPTIDE (BEAKER) (test 475 pg/mL 0-100 wrhu=109) POCT-GLUCOSE [id number] 20:48:00 Test Item Value Reference Range Comments POC-GLUCOSE METER (BEAKER) 133 mg/dL 70-110 TESTED AT [facility] [address] [facility] (test obsy=9298) [facility] [address] [id number] 06:17:00 Test Item Value Reference Range Comments PHOSPHORUS (BEAKER) (test cult=267) 2.3 mg/dL 2.3-4.7 [id number] 06:17:00 Test Item Value Reference Range Comments MAGNESIUM (BEAKER) (test hpbn=778) 2.2 mg/dL 1.6-2.6 BASIC METABOLIC [id number] 06:17:00 Test Item Value Reference Range Comments SODIUM (BEAKER) (test 135 meq/L 136-145 jzrp=222) POTASSIUM (BEAKER) (test 4.3 meq/L 3.5-5.1 nbce=798) CHLORIDE (BEAKER) (test 106 meq/L 98-107 acvq=050) CO2 (BEAKER) (test 23 meq/L 22-29 xouq=629) BLOOD UREA NITROGEN 32 mg/dL 7-21 (BEAKER) (test axyl=171) CREATININE (BEAKER) (test 1.06 mg/dL 0.57-1.25 yjus=236) GLUCOSE RANDOM (BEAKER) 107 mg/dL 70-105 (test bbba=979) CALCIUM (BEAKER) (test 8.6 mg/dL 8.4-10.2 zdqd=908) EGFR (BEAKER) (test 66 mL/min/1.73 sq m ESTIMATED GFR IS NOT vapx=9936) ACCURATE CREATININE CLEARANCE IN PREDICTING GLOMERULAR FILTRATION RATE. ESTIMATED GFR IS NOT APPLICABLE FOR DIALYSIS PATIENTS. CBC W/PLT COUNT & AUTO [id number] 05:58:00 Test Item Value Reference Range Comments WHITE BLOOD CELL COUNT (BEAKER) (test atbu=359) 4.5 K/ L 3.5-10.5 RED BLOOD CELL COUNT (BEAKER) (test txdx=137) 2.34 M/ L 4.63-6.08 HEMOGLOBIN (BEAKER) (test foxt=935) 7.8 GM/DL 13.7-17.5 HEMATOCRIT (BEAKER) (test iciu=543) 23.7 % 40.1-51.0 MEAN CORPUSCULAR VOLUME (BEAKER) (test eszh=287) 101.3 fL 79.0-92.2 MEAN CORPUSCULAR HEMOGLOBIN (BEAKER) (test 33.3 pg 25.7-32.2 xvny=267) MEAN CORPUSCULAR HEMOGLOBIN CONC (BEAKER) (test 32.9 GM/DL 32.3-36.5 kkqu=583) RED CELL DISTRIBUTION WIDTH (BEAKER) (test 14.7 % 11.6-14.4 qbbe=066) PLATELET COUNT (BEAKER) (test flih=999) 76 K/CU MM 150-450 MEAN PLATELET VOLUME (BEAKER) (test gjjf=015) 10.0 fL 9.4-12.4 NUCLEATED RED BLOOD CELLS (BEAKER) (test 0 /100 WBC 0-0 eruc=672) NEUTROPHILS RELATIVE PERCENT (BEAKER) (test 63 % zqct=953) LYMPHOCYTES RELATIVE PERCENT (BEAKER) (test 14 % yzsx=300) MONOCYTES RELATIVE PERCENT (BEAKER) (test 13 % zcnp=745) EOSINOPHILS RELATIVE PERCENT (BEAKER) (test 9 % qkyy=795) BASOPHILS RELATIVE PERCENT (BEAKER) (test 0 % oyoj=364) NEUTROPHILS ABSOLUTE COUNT (BEAKER) (test 2.82 K/ L 1.78-5.38 fekr=940) LYMPHOCYTES ABSOLUTE COUNT (BEAKER) (test 0.61 K/ L 1.32-3.57 roiw=616) MONOCYTES ABSOLUTE COUNT (BEAKER) (test yrcd=024) 0.59 K/ L 0.30-0.82 EOSINOPHILS ABSOLUTE COUNT (BEAKER) (test 0.39 K/ L 0.04-0.54 bgzw=924) BASOPHILS ABSOLUTE COUNT (BEAKER) (test sqrs=310) 0.01 K/ L 0.01-0.08 IMMATURE GRANULOCYTES-RELATIVE PERCENT (BEAKER) 1 % 0-1 (test exrq=0189) [id number] 05:42:00 Test Item Value Reference Range Comments MAGNESIUM (BEAKER) (test fmzo=150) 2.2 mg/dL 1.6-2.6 BASIC METABOLIC [id number] 05:42:00 Test Item Value Reference Range Comments SODIUM (BEAKER) (test 135 meq/L 136-145 jgoi=881) POTASSIUM (BEAKER) (test 4.2 meq/L 3.5-5.1 lbqk=380) CHLORIDE (BEAKER) (test 106 meq/L 98-107 jidh=459) CO2 (BEAKER) (test 23 meq/L 22-29 hawn=486) BLOOD UREA NITROGEN 41 mg/dL 7-21 (BEAKER) (test ajwr=502) CREATININE (BEAKER) (test 1.43 mg/dL 0.57-1.25 cxcp=141) GLUCOSE RANDOM (BEAKER) 118 mg/dL 70-105 (test dben=858) CALCIUM (BEAKER) (test 8.4 mg/dL 8.4-10.2 ksev=680) EGFR (BEAKER) (test 47 mL/min/1.73 sq m ESTIMATED GFR IS NOT gtdh=7036) ACCURATE CREATININE CLEARANCE IN PREDICTING GLOMERULAR FILTRATION RATE. ESTIMATED GFR IS NOT APPLICABLE FOR DIALYSIS PATIENTS. CBC W/PLT COUNT & AUTO [id number] 08:51:00 Test Item Value Reference Range Comments WHITE BLOOD CELL COUNT (BEAKER) (test ttog=501) 4.8 K/ L 3.5-10.5 RED BLOOD CELL COUNT (BEAKER) (test ussv=827) 2.42 M/ L 4.63-6.08 HEMOGLOBIN (BEAKER) (test szgn=774) 8.0 GM/DL 13.7-17.5 HEMATOCRIT (BEAKER) (test kgxk=122) 24.6 % 40.1-51.0 MEAN CORPUSCULAR VOLUME (BEAKER) (test kpef=335) 101.7 fL 79.0-92.2 MEAN CORPUSCULAR HEMOGLOBIN (BEAKER) (test 33.1 pg 25.7-32.2 pcif=156) MEAN CORPUSCULAR HEMOGLOBIN CONC (BEAKER) (test 32.5 GM/DL 32.3-36.5 guuw=505) RED CELL DISTRIBUTION WIDTH (BEAKER) (test 15.2 % 11.6-14.4 aabw=382) PLATELET COUNT (BEAKER) (test lhhn=942) 62 K/CU MM 150-450 MEAN PLATELET VOLUME (BEAKER) (test mpxw=374) 10.7 fL 9.4-12.4 NUCLEATED RED BLOOD CELLS (BEAKER) (test 0 /100 WBC 0-0 tpfg=048) NEUTROPHILS RELATIVE PERCENT (BEAKER) (test 72 % piqc=311) LYMPHOCYTES RELATIVE PERCENT (BEAKER) (test 8 % mpup=651) MONOCYTES RELATIVE PERCENT (BEAKER) (test 13 % xpvn=731) EOSINOPHILS RELATIVE PERCENT (BEAKER) (test 7 % dkfg=784) BASOPHILS RELATIVE PERCENT (BEAKER) (test 0 % zpum=099) NEUTROPHILS ABSOLUTE COUNT (BEAKER) (test 3.46 K/ L 1.78-5.38 fyyb=129) LYMPHOCYTES ABSOLUTE COUNT (BEAKER) (test 0.36 K/ L 1.32-3.57 tndz=355) MONOCYTES ABSOLUTE COUNT (BEAKER) (test yphq=726) 0.64 K/ L 0.30-0.82 EOSINOPHILS ABSOLUTE COUNT (BEAKER) (test 0.33 K/ L 0.04-0.54 hzei=801) BASOPHILS ABSOLUTE COUNT (BEAKER) (test kbri=230) 0.01 K/ L 0.01-0.08 IMMATURE GRANULOCYTES-RELATIVE PERCENT (BEAKER) 0 % 0-1 (test sgdf=6411) BASIC METABOLIC [id number] 06:59:00 Test Item Value Reference Range Comments SODIUM (BEAKER) (test 134 meq/L 136-145 iqgr=984) POTASSIUM (BEAKER) (test 4.3 meq/L 3.5-5.1 jyvf=726) CHLORIDE (BEAKER) (test 106 meq/L 98-107 ezfw=296) CO2 (BEAKER) (test 22 meq/L 22-29 rnqe=845) BLOOD UREA NITROGEN 48 mg/dL 7-21 (BEAKER) (test hogt=614) CREATININE (BEAKER) (test 2.22 mg/dL 0.57-1.25 vdsu=031) GLUCOSE RANDOM (BEAKER) 151 mg/dL 70-105 (test dczm=145) CALCIUM (BEAKER) (test 8.1 mg/dL 8.4-10.2 uawg=220) EGFR (BEAKER) (test 28 mL/min/1.73 sq m ESTIMATED GFR IS NOT vzkb=6344) ACCURATE CREATININE CLEARANCE IN PREDICTING GLOMERULAR FILTRATION RATE. ESTIMATED GFR IS NOT APPLICABLE FOR DIALYSIS PATIENTS. Specimen slightly [id number] 06:50:00 Test Item Value Reference Range Comments MAGNESIUM (BEAKER) (test pspc=551) 2.2 mg/dL 1.6-2.6 [id number] 14:04:00 Test Item Value Reference Range Comments CORTISOL, TOTAL (BEAKER) (test xbho=4153) 14.3 ug/dL 3.7-19.4 B-TYPE NATRIURETIC FACTOR (BNP)2017-07-17 05:11:00 Test Item Value Reference Range Comments B-TYPE NATRIURETIC PEPTIDE (BEAKER) (test 462 pg/mL 0-100 zuek=481) URIC [id number] 05:09:00 Test Item Value Reference Range Comments URIC ACID (BEAKER) (test jsch=572) 9.8 mg/dL 2.6-7.2 [id number] 05:09:00 Test Item Value Reference Range Comments MAGNESIUM (BEAKER) (test vcpk=583) 2.0 mg/dL 1.6-2.6 COMPREHENSIVE METABOLIC [id number] 05:09:00 Test Item Value Reference Range Comments TOTAL PROTEIN (BEAKER) 5.4 gm/dL 6.0-8.3 (test rbld=336) ALBUMIN (BEAKER) (test 3.2 g/dL 3.5-5.0 vxbk=1368) ALKALINE PHOSPHATASE 62 U/L 40-150 (BEAKER) (test oegf=169) BILIRUBIN TOTAL (BEAKER) 1.5 mg/dL 0.2-1.2 (test usxy=388) SODIUM (BEAKER) (test 137 meq/L 136-145 wwkh=641) POTASSIUM (BEAKER) (test 4.2 meq/L 3.5-5.1 tqby=974) CHLORIDE (BEAKER) (test 107 meq/L 98-107 kykw=351) CO2 (BEAKER) (test 21 meq/L 22-29 hwrl=907) BLOOD UREA NITROGEN 43 mg/dL 7-21 (BEAKER) (test vbfm=681) CREATININE (BEAKER) (test 2.58 mg/dL 0.57-1.25 fwdo=020) GLUCOSE RANDOM (BEAKER) 201 mg/dL 70-105 (test ngca=910) CALCIUM (BEAKER) (test 8.1 mg/dL 8.4-10.2 cdpj=985) AST (SGOT) (BEAKER) (test 28 U/L 5-34 bqfs=493) ALT (SGPT) (BEAKER) (test 9 U/L 6-55 dapv=909) EGFR (BEAKER) (test 24 mL/min/1.73 sq m ESTIMATED GFR IS NOT uhnx=8395) ACCURATE CREATININE CLEARANCE IN PREDICTING GLOMERULAR FILTRATION RATE. ESTIMATED GFR IS NOT APPLICABLE FOR DIALYSIS PATIENTS. CBC W/PLT COUNT & AUTO [id number] 04:52:00 Test Item Value Reference Range Comments WHITE BLOOD CELL COUNT (BEAKER) (test hyci=572) 7.5 K/ L 3.5-10.5 RED BLOOD CELL COUNT (BEAKER) (test swwe=443) 2.20 M/ L 4.63-6.08 HEMOGLOBIN (BEAKER) (test ugbw=330) 7.4 GM/DL 13.7-17.5 HEMATOCRIT (BEAKER) (test srqa=892) 23.1 % 40.1-51.0 MEAN CORPUSCULAR VOLUME (BEAKER) (test ljum=827) 105.0 fL 79.0-92.2 MEAN CORPUSCULAR HEMOGLOBIN (BEAKER) (test 33.6 pg 25.7-32.2 joyk=166) MEAN CORPUSCULAR HEMOGLOBIN CONC (BEAKER) (test 32.0 GM/DL 32.3-36.5 kcux=595) RED CELL DISTRIBUTION WIDTH (BEAKER) (test 14.0 % 11.6-14.4 gqrf=745) PLATELET COUNT (BEAKER) (test mcve=390) 84 K/CU MM 150-450 MEAN PLATELET VOLUME (BEAKER) (test ricx=872) 11.1 fL 9.4-12.4 NUCLEATED RED BLOOD CELLS (BEAKER) (test 0 /100 WBC 0-0 rduv=012) NEUTROPHILS RELATIVE PERCENT (BEAKER) (test 77 % tqpl=908) LYMPHOCYTES RELATIVE PERCENT (BEAKER) (test 8 % jeky=284) MONOCYTES RELATIVE PERCENT (BEAKER) (test 13 % lqou=898) EOSINOPHILS RELATIVE PERCENT (BEAKER) (test 1 % zzxo=221) BASOPHILS RELATIVE PERCENT (BEAKER) (test 0 % pasq=546) NEUTROPHILS ABSOLUTE COUNT (BEAKER) (test 5.81 K/ L 1.78-5.38 jzgb=656) LYMPHOCYTES ABSOLUTE COUNT (BEAKER) (test 0.61 K/ L 1.32-3.57 rdso=415) MONOCYTES ABSOLUTE COUNT (BEAKER) (test mpfx=320) 0.96 K/ L 0.30-0.82 EOSINOPHILS ABSOLUTE COUNT (BEAKER) (test 0.08 K/ L 0.04-0.54 zqdk=207) BASOPHILS ABSOLUTE COUNT (BEAKER) (test ltib=826) 0.03 K/ L 0.01-0.08 IMMATURE GRANULOCYTES-RELATIVE PERCENT (BEAKER) 0 % 0-1 (test inas=0771) RAD, CHEST, 1 VIEW, NON [id number] 04:01:00Reason for exam:-> oliguriaShould this be performed at the bedside?->YesFINAL REPORT CLINICAL INDICATION: Oliguria Comparison: 07/16/2017 The patientis rotated to the right in the left costophrenic sulcus is excluded. The cardiomediastinal contours are grossly stable. Central pulmonary vascular congestion and bilateral parenchymal opacities are similar within variation of acquisition technique. There is no pneumothorax. A right IJ CVC remains in place. Signed: Dawson Barron MDReport Verified Date/Time: 07/17/2017 04:01:10 Reading Location: [address] Reading Room SODIUM, RANDOM [id number] 19:25:00 Test Item Value Reference Range Comments SODIUM URINE (BEAKER) (test nxrt=162) < meq/L Reference Range: No NormalsCREATININE, RANDOM [id number] 19:14:00 Test Item Value Reference Range Comments CREATININE URINE (BEAKER) (test lsgj=311) 131.4 mg/dL Reference Range: No NormalsPROTEIN, RANDOM [id number] 19:14:00 Test Item Value Reference Range Comments PROTEIN, URINE (BEAKER) (test efba=7464) 23 mg/dL 0-14 OSMOLALITY, [id number] 19:00:00 Test Item Value Reference Range Comments OSMOLALITY URINE (BEAKER) (test cqth=803) 346 mOsm/kg 40-1400 RAD, CHEST, 1 VIEW, NON [id number] 16:22:00Reason for exam:->central line placementShould this be performed at the bedside?->YesFINAL REPORT TECHNIQUE: Frontal chest radiograph dated 07/16/2017. CLINICAL HISTORY: Central line placement COMPARISON STUDY: Chest radiograph performed earlier the same day. IMPRESSION:Right-sided [place]zequiel catheter tip projects over the affected region of superior vena cava/right atrial junction. There is streaky atelectasis in the left lung base. No focal consolidation. No pleural effusion or pneumothorax. Cardiomediastinal silhouette is normal in size. No pulmonary edema.Midline sternotomy wires are intact and well aligned. No fracture. Bones are osteopenic. Signed: Ravi Griffin MDReport Verified Date/Time: 07/16/2017 16:22:02 Reading Location: [facility] Radiology Reading Room RAD, CHEST, 1 VIEW, NON [id number] 09:32:00Reason for exam:->cxfShould this be performed at the bedside?->YesFINAL REPORT CLINICAL HISTORY: cxf TECHNIQUE: 1 view of the chest. COMPARISON: None IMPRESSION: Pulmonary vascular congestion is noted with diffuse bilateral interstitial opacities and left lung atelectasis. There is blunting of the left costophrenic angle. The cardiomediastinal silhouette is magnified by technique with sternotomy wires. Signed: Partha Abreu MDReport Verified Date/Time: 09:32:51 Reading Location: [facility] Radiology Reading Room B-TYPE NATRIURETIC FACTOR (BNP)2017-07-16 02:38:00 Test Item Value Reference Range Comments B-TYPE NATRIURETIC PEPTIDE (BEAKER) (test 251 pg/mL 0-100 nsbu=581) BASIC METABOLIC [id number] 02:32:00 Test Item Value Reference Range Comments SODIUM (BEAKER) (test 142 meq/L 136-145 qxen=168) POTASSIUM (BEAKER) (test 4.0 meq/L 3.5-5.1 Specimen slightly mpie=351) hemolyzed CHLORIDE (BEAKER) (test 106 meq/L 98-107 wdfz=078) CO2 (BEAKER) (test 23 meq/L 22-29 aoyo=995) BLOOD UREA NITROGEN 26 mg/dL 7-21 (BEAKER) (test boph=687) CREATININE (BEAKER) (test 1.41 mg/dL 0.57-1.25 Specimen slightly ckaf=846) hemolyzed GLUCOSE RANDOM (BEAKER) 152 mg/dL 70-105 (test vyjz=293) CALCIUM (BEAKER) (test 8.8 mg/dL 8.4-10.2 bqjb=223) EGFR (BEAKER) (test 48 mL/min/1.73 sq m ESTIMATED GFR IS NOT qrtd=6504) ACCURATE CREATININE CLEARANCE IN PREDICTING GLOMERULAR FILTRATION RATE. ESTIMATED GFR IS NOT APPLICABLE FOR DIALYSIS PATIENTS. Specimen slightly ictericLACTIC ACID, VENOUS, WHOLE [id number] 02:28:00 Test Item Value Reference Range Comments LACTATE BLOOD VENOUS (2) 2.1 mmol/L 0.5-2.2 Specimen slightly hemolyzed (BEAKER) (test ujof=5185) Effective 07/04/2015: Units/Reference Range ChangeNew: 0.5-2.2 mmol/L Previous: 5 -20 mg/dLCBC (HEMOGRAM ONLY)2017-07-16 02:02:00 Test Item Value Reference Range Comments WHITE BLOOD CELL COUNT (BEAKER) (test omzo=571) 13.3 K/ L 3.5-10.5 RED BLOOD CELL COUNT (BEAKER) (test trod=532) 2.79 M/ L 4.63-6.08 HEMOGLOBIN (BEAKER) (test gqnb=457) 9.5 GM/DL 13.7-17.5 HEMATOCRIT (BEAKER) (test ywau=115) 29.4 % 40.1-51.0 MEAN CORPUSCULAR VOLUME (BEAKER) (test fyal=339) 105.4 fL 79.0-92.2 MEAN CORPUSCULAR HEMOGLOBIN (BEAKER) (test 34.1 pg 25.7-32.2 stlt=518) MEAN CORPUSCULAR HEMOGLOBIN CONC (BEAKER) (test 32.3 GM/DL 32.3-36.5 mqle=878) RED CELL DISTRIBUTION WIDTH (BEAKER) (test 13.7 % 11.6-14.4 rgwf=689) PLATELET COUNT (BEAKER) (test mnqc=217) 138 K/CU MM 150-450 MEAN PLATELET VOLUME (BEAKER) (test hnds=212) 11.2 fL 9.4-12.4 NUCLEATED RED BLOOD CELLS (BEAKER) (test 0 /100 WBC 0-0 roty=839) HEMOGLOBIN AND [id number] 19:53:00 Test Item Value Reference Range Comments HEMOGLOBIN (BEAKER) (test spnr=268) 9.4 GM/DL 13.7-17.5 HEMATOCRIT (BEAKER) (test deoe=725) 29.0 % 40.1-51.0 B-TYPE NATRIURETIC FACTOR (BNP)2017-07-15 16:30:00 Test Item Value Reference Range Comments B-TYPE NATRIURETIC PEPTIDE (BEAKER) (test 155 pg/mL 0-100 rqfp=820) [id number] 16:23:00 Test Item Value Reference Range Comments MAGNESIUM (BEAKER) (test 2.0 mg/dL 1.6-2.6 Specimen slightly hemolyzed gjaa=629) BASIC METABOLIC [id number] 16:23:00 Test Item Value Reference Range Comments SODIUM (BEAKER) (test 138 meq/L 136-145 fqju=406) POTASSIUM (BEAKER) (test 3.9 meq/L 3.5-5.1 Specimen slightly klsd=171) hemolyzed CHLORIDE (BEAKER) (test 103 meq/L 98-107 rzbq=304) CO2 (BEAKER) (test 26 meq/L 22-29 giru=302) BLOOD UREA NITROGEN 21 mg/dL 7-21 (BEAKER) (test lkqa=791) CREATININE (BEAKER) (test 1.00 mg/dL 0.57-1.25 Specimen slightly xzbk=602) hemolyzed GLUCOSE RANDOM (BEAKER) 145 mg/dL 70-105 (test sjgt=843) CALCIUM (BEAKER) (test 8.9 mg/dL 8.4-10.2 hkst=891) EGFR (BEAKER) (test 71 mL/min/1.73 sq m ESTIMATED GFR IS NOT jblg=6348) ACCURATE CREATININE CLEARANCE IN PREDICTING GLOMERULAR FILTRATION RATE. ESTIMATED GFR IS NOT APPLICABLE FOR DIALYSIS PATIENTS. Specimen slightly ictericLACTIC ACID, VENOUS, WHOLE [id number] 16:19:00 Test Item Value Reference Range Comments LACTATE BLOOD VENOUS (2) 1.7 mmol/L 0.5-2.2 Specimen slightly hemolyzed (BEAKER) (test eirv=8159) Effective 07/04/2015: Units/Reference Range ChangeNew: 0.5-2.2 mmol/L Previous: 5 -20 mg/dLSpecimen slightly ictericCBC (HEMOGRAM ONLY)2017-07-15 16:09:00 Test Item Value Reference Range Comments WHITE BLOOD CELL COUNT (BEAKER) (test hqxx=530) 10.6 K/ L 3.5-10.5 RED BLOOD CELL COUNT (BEAKER) (test peuc=782) 2.85 M/ L 4.63-6.08 HEMOGLOBIN (BEAKER) (test omju=235) 9.7 GM/DL 13.7-17.5 HEMATOCRIT (BEAKER) (test opqs=506) 29.5 % 40.1-51.0 MEAN CORPUSCULAR VOLUME (BEAKER) (test jqkl=739) 103.5 fL 79.0-92.2 MEAN CORPUSCULAR HEMOGLOBIN (BEAKER) (test 34.0 pg 25.7-32.2 hihc=039) MEAN CORPUSCULAR HEMOGLOBIN CONC (BEAKER) (test 32.9 GM/DL 32.3-36.5 aooz=603) RED CELL DISTRIBUTION WIDTH (BEAKER) (test 13.4 % 11.6-14.4 edjf=528) PLATELET COUNT (BEAKER) (test xopq=334) 127 K/CU MM 150-450 MEAN PLATELET VOLUME (BEAKER) (test bail=648) 11.5 fL 9.4-12.4 NUCLEATED RED BLOOD CELLS (BEAKER) (test 0 /100 WBC 0-0 cctb=923) [id number] 12:47:00 Test Item Value Reference Range Comments ACTIVATED CLOTTING TIME 224 sec TESTED AT [address] (BEAKER) (test zkiq=990) [place] [address] [id number] 12:47:00 Test Item Value Reference Range Comments ACTIVATED CLOTTING TIME 257 sec TESTED AT [place] [address] [facility] (BEAKER[facility] (test hnci=816) [place] [address] [id number] 12:47:00 Test Item Value Reference Range Comments ACTIVATED CLOTTING TIME 219 sec TESTED AT [place] [address] [facility] (BEAKER) (test nizt=681) [place] [address]
--- NOTE | 2018-08-22 08:27 | ER ---
Nurse's Notes [facility] Name: Chris Mcwilliams Age: 88 yrs Sex: Male : 1930 Arrival Date: 08/22/2018 Time: 08:17 Bed 6 Private MD: Diagnosis: Anemia, unspecified;Gastrointestinal hemorrhage, unspecified;Weakness;Altered mental status, unspecified;Coagulation defect, unspecified-coumadin toxic/therapy;Unspecified combined systolic (congestive) and diastolic (congestive) heart failure;Retention of urine-post void 1000cc Presentation: 08/22 08:23 Presenting complaint: EMS states: reported pt had an episode of black tarry stool iw last night, no diarrhea, no vomiting, hx of cirrhosis, reports generalized weakness and AMS since last night. Transition of care: patient was not received from another setting of care. Onset of symptoms was August 21, 2018. Risk Assessment: Do you want to hurt yourself or someone else? Patient reports no desire to harm self or others. 08:23 Method Of Arrival: EMS: [facility] iw 08:23 Acuity: BOB 2 iw 08:24 Initial Sepsis Screen: Does the patient meet any 2 criteria? No. Patient's initial iw sepsis screen is negative. Does the patient have a suspected source of infection? No. Patient's initial sepsis screen is negative. 08:25 Care prior to arrival: IV initiated. 20 GA, in the left antecubital area. iw Historical: - Allergies: 08:27 NKDA; iw - Home Meds: 08:29 atorvastatin 40 mg oral tab 1 tab once daily [Active]; metoprolol tartrate 25 mg Oral iw tab 1 tab 2 times per day [Active]; torsemide 20 mg oral tab 1 tab once daily [Active]; pantoprazole 40 mg oral TbEC 1 tab once daily [Active]; spironolactone 25 mg Oral tab 1 tab once daily [Active]; warfarin 5 mg Oral tab 1 tab once daily [Active]; tamsulosin 0.4 mg Oral cp24 1 cap once daily [Active]; - PMHx: 08:27 Atrial Fib; bowel obstruction; CHF; Diabetes - IDDM; Diverticulitis; Hyperlipidemia; iw Hypertension; Myocardial infarction; - Immunization history:: Adult Immunizations unknown. - Social history:: Smoking status: unknown. - Family history:: not pertinent. - Ebola Screening: : No symptoms or risks identified at this time. Screenin:51 Abuse screen: Denies threats or abuse. Nutritional screening: No deficits noted. la1 Tuberculosis screening: No symptoms or risk factors identified. Fall Risk Total Head Fall Scale indicates High Risk Score (45 or more points). Side Rails Up X 2. Assessment: 08:52 General: Appears in no apparent distress. Behavior is drowsy. Pain: Unable to use pain la1 scale. Does not appear to understand pain scale. Neuro: Level of Consciousness is awake, listless, responsive to verbal stimulus. Facial symmetry appears normal. Cardiovascular: Heart tones S1 S2 present Capillary refill < 3 seconds Patient's skin is warm and dry. Rhythm is atrial fibrillation. Respiratory: Airway is patent Respiratory effort is even, unlabored, Respiratory pattern is regular, symmetrical, Breath sounds are clear bilaterally. GI: Abdomen is round non-distended, Melanotic stool at rectum. Guaiac positive. Bowel sounds present X 4 quads. 09:43 Reassessment: No changes from previously documented assessment. Patient and/or family la1 updated on plan of care and expected duration. Pain level reassessed. 10:51 Reassessment: Pt at bedside, pt trying to get out of bed, screaming "help me, help la1 me" pt reassured. 11:27 Reassessment: No changes from previously documented assessment. Patient and/or family la1 updated on plan of care and expected duration. Pain level reassessed. Pt bladder distended, crying out for help. unable to urinate in urinal. PVR >800. Dos Santos catheter inserted, 18Fr, returned 900cc clear yellow urine, sterile protocol used, hospital policy followed. pt cleaned of dark black stool. Vital Signs: 08:25 BP 148 / 78; Pulse 83; Resp 18 S; Temp 98.5; Pulse Ox 96% on R/A; iw 08:54 BP 145 / 63; Pulse 80; Resp 16; Pulse Ox 97% on R/A; la1 09:43 BP 144 / 67; Pulse 70; Resp 16; Pulse Ox 98% on 2 lpm NC; la1 10:30 BP 133 / 81; Pulse 115; Resp 20; Pulse Ox 98% on 2 lpm NC; la1 10:50 BP 128 / 73; Pulse 81; Resp 16; Pulse Ox 98% on 2 lpm NC; la1 11:26 BP 117 / 84; Pulse 86; Resp 16; Temp 98.4; Pulse Ox 98% on 2 lpm NC; la1 11:44 BP 135 / 55; Pulse 84; Resp 16; Temp 98.4; Pulse Ox 98% on 2 lpm NC; la1 ED Course: 08:17 Patient arrived in ED. iw 08:18 Doug Barksdale MD is Attending Physician. dewayne 08:23 Valente Rinaldi, RN is Primary Nurse. la1 08:24 Triage completed. iw 08:28 Initial lab(s) drawn, by oh, sent to lab. T\\T\\S collected, blood band applied to patient. dh3 Inserted saline lock: 18 gauge in left antecubital area, using aseptic technique. Blood collected. 08:34 Arm band placed on. iw 08:42 XRAY Chest (1 view) In Process Unspecified. EDMS 08:46 EKG done, by ED staff, reviewed by Doug Barksdale MD. dh3 08:51 No provider procedures requiring assistance completed. Inserted saline lock: 20 gauge la1 in right forearm, using aseptic technique. 08:52 Placed in gown. Bed in low position. Call light in reach. Side rails up X2. Cardiac la1 monitor on. Pulse ox on. NIBP on. 09:22 CT completed. Patient tolerated procedure well. Patient moved back from CT. mw3 09:22 CT Head Brain wo Cont In Process Unspecified. EDMS 11:48 Urine collected: Dos Santos catheter specimen, clear. dh3 12:19 Patient transferred, IV remains in place. la1 Administered Medications: Discontinued: NS 0.9% 500 ml IV at bolus once Discontinued: NS 0.9% 1000 ml IV at 125 ml/hr continuous 08:49 Drug: NS 0.9% 1000 ml Route: IV; Rate: 125 ml/hr; Site: left antecubital; la1 09:44 Follow up: IV Status: Order to discontinue infusion la1 08:50 Drug: NS 0.9% 500 ml Route: IV; Rate: bolus; Site: left antecubital; la1 09:44 Follow up: IV Status: Order to discontinue infusion la1 09:12 Drug: SandoSTATIN 50 mcg Route: IV; Rate: per protocol; Site: left antecubital; la1 09:38 Follow up: IV Status: Infusion continued upon transfer la1 09:12 Drug: NS 0.9% 1000 ml Route: IV; Rate: 100 ml/hr; Site: left antecubital; la1 09:37 Follow up: IV Status: Infusion continued upon transfer la1 09:13 Drug: SandoSTATIN 25 mcg/h Route: IV; Rate: calculated rate; Site: left antecubital; la1 09:38 Follow up: IV Status: Infusion continued upon transfer la1 09:15 Drug: ProTONIX 80 mg Route: IVP; Site: right forearm; la1 09:39 Follow up: Response: No adverse reaction la1 09:16 Drug: ProTONIX 8 mg/hr Route: IV; Rate: 25 ml/hr; Site: right forearm; la1 09:39 Follow up: IV Status: Infusion continued upon transfer la1 09:42 Drug: Vitamin K1 10 mg Route: Sub-Q; Site: left upper arm; la1 10:36 Follow up: Response: No adverse reaction la1 10:50 Drug: Lasix 20 mg Route: IVP; Site: right antecubital; la1 10:51 Follow up: Response: No adverse reaction la1 10:50 Drug: Rocephin - (cefTRIAXone) 1 grams Route: IVPB; Infused Over: 30 mins; Site: right la1 antecubital; 10:51 Follow up: IV Status: Infusion continued upon transfer la1 Outcome: 08:27 ER care complete, transfer ordered by MD. buchanan 12:19 Transferred by ground EMS to [facility], Transfer form completed. la1 X-rays sent w/ patient. 12:19 Condition: stable 12:19 Instructed on the need for transfer. 12:19 Patient left the ED. la1 Signatures: Dispatcher [employer] EDDoug Pathak MD MD cha Williams, Irene, RN RN iw Attema, Lee, RN RN [facility] Yelitza Martinez pending sale to [facility] Marcy King 3 Corrections: (The following items were deleted from the chart) 08:50 08:23 Inserted saline lock: 18 gauge in left antecubital area, using aseptic technique. pending sale to [facility] Blood collected. pending sale to [facility] 08:50 08:23 Initial lab(s) drawn, by oh, sent to lab. T\\T\\S collected, blood band applied to dh3 patient. dh3
--- NOTE | 2018-08-22 08:28 | EDPHYS ---
Physician Documentation [facility] Name: Chris Mcwilliams Age: 88 yrs Sex: Male : 1930 Arrival Date: 08/22/2018 Time: 08:17 Bed 6 Private MD: ED Physician Doug Barksdale HPI: 08/22 08:22 This 88 yrs old Male presents to ER via Unassigned with complaints of upper dewayne gi bleed and weakness. 08:22 The patient presents with abdominal pain in the upper abdomen, in the lower abdomen. dewayne Onset: The symptoms/episode began/occurred just prior to arrival. The patient presents to the emergency department with rectal bleeding, a large amount, melena. Onset: The symptoms/episode began/occurred last night. Abdominal pain: described as achy, crampy. Modifying factors: The symptoms are alleviated by nothing, the symptoms are aggravated by nothing. The patient presents with decreased mental status, decreased responsiveness. Associated signs and symptoms: Pertinent positives: abdominal pain, dizziness, lightheadedness, nausea, weakness. Historical: - Allergies: 08:27 NKDA; iw - Home Meds: 08: atorvastatin 40 mg oral tab 1 tab once daily [Active]; metoprolol tartrate 25 mg Oral iw tab 1 tab 2 times per day [Active]; torsemide 20 mg oral tab 1 tab once daily [Active]; pantoprazole 40 mg oral TbEC 1 tab once daily [Active]; spironolactone 25 mg Oral tab 1 tab once daily [Active]; warfarin 5 mg Oral tab 1 tab once daily [Active]; tamsulosin 0.4 mg Oral cp24 1 cap once daily [Active]; - PMHx: 08:27 Atrial Fib; bowel obstruction; CHF; Diabetes - IDDM; Diverticulitis; Hyperlipidemia; iw Hypertension; Myocardial infarction; - Immunization history:: Adult Immunizations unknown. - Social history:: Smoking status: unknown. - Family history:: not pertinent. - Ebola Screening: : No symptoms or risks identified at this time. ROS: 08:22 Constitutional: Negative for fever, chills, and weight loss, Eyes: Negative for injury, dewayne pain, redness, and discharge, ENT: Negative for injury, pain, and discharge, Neck: Negative for injury, pain, and swelling, Cardiovascular: Negative for chest pain, palpitations, and edema, Respiratory: Negative for shortness of breath, cough, wheezing, and pleuritic chest pain, Back: Negative for injury and pain, : Negative for injury, bleeding, discharge, and swelling, MS/Extremity: Negative for injury and deformity, Skin: Negative for injury, rash, and discoloration, Psych: Negative for depression, anxiety, suicide ideation, homicidal ideation, and hallucinations, Allergy/Immunology: Negative for hives, rash, and allergies, Endocrine: Negative for neck swelling, polydipsia, polyuria, polyphagia, and marked weight changes, Hematologic/Lymphatic: Negative for swollen nodes, abnormal bleeding, and unusual bruising. 08:22 Abdomen/GI: Positive for abdominal pain, rectal bleeding. 08:22 Skin: Positive for pallor. Exam: 08:22 Constitutional: This is a well developed, well nourished patient who is awake, alert, dewayne and in no acute distress. Head/Face: Normocephalic, atraumatic. Eyes: Pupils equal round and reactive to light, extra-ocular motions intact. Lids and lashes normal. Conjunctiva and sclera are non-icteric and not injected. Cornea within normal limits. Periorbital areas with no swelling, redness, or edema. ENT: Nares patent. No nasal discharge, no septal abnormalities noted. Tympanic membranes are normal and external auditory canals are clear. Oropharynx with no redness, swelling, or masses, exudates, or evidence of obstruction, uvula midline. Mucous membranes moist. Neck: Trachea midline, no thyromegaly or masses palpated, and no cervical lymphadenopathy. Supple, full range of motion without nuchal rigidity, or vertebral point tenderness. No Meningismus. Chest/axilla: Normal chest wall appearance and motion. Nontender with no deformity. No lesions are appreciated. Cardiovascular: Regular rate and rhythm with a normal S1 and S2. No gallops, murmurs, or rubs. Normal PMI, no JVD. No pulse deficits. Respiratory: Lungs have equal breath sounds bilaterally, clear to auscultation and percussion. No rales, rhonchi or wheezes noted. No increased work of breathing, no retractions or nasal flaring. Back: No spinal tenderness. No costovertebral tenderness. Full range of motion. Male : Normal genitalia with no discharge or lesions. Skin: Warm, dry with normal turgor. Normal color with no rashes, no lesions, and no evidence of cellulitis. MS/ Extremity: Pulses equal, no cyanosis. Neurovascular intact. Full, normal range of motion. Psych: Awake, alert, with orientation to person, place and time. Behavior, mood, and affect are within normal limits. 08:22 Abdomen/GI: Inspection: abdomen appears normal, Bowel sounds: normal, Palpation: nontender, Rectal exam: Stool: guaiac positive, black, hemorrhoid(s), are not appreciated, mass, is not appreciated, swelling, is not appreciated, tenderness, is not appreciated, Liver: no appreciated palpable abnormalities, Hernia: not appreciated. Vital Signs: 08:25 BP 148 / 78; Pulse 83; Resp 18 S; Temp 98.5; Pulse Ox 96% on R/A; iw 08:54 BP 145 / 63; Pulse 80; Resp 16; Pulse Ox 97% on R/A; la1 09:43 BP 144 / 67; Pulse 70; Resp 16; Pulse Ox 98% on 2 lpm NC; la1 10:30 BP 133 / 81; Pulse 115; Resp 20; Pulse Ox 98% on 2 lpm NC; la1 10:50 BP 128 / 73; Pulse 81; Resp 16; Pulse Ox 98% on 2 lpm NC; la1 11:26 BP 117 / 84; Pulse 86; Resp 16; Temp 98.4; Pulse Ox 98% on 2 lpm NC; la1 11:44 BP 135 / 55; Pulse 84; Resp 16; Temp 98.4; Pulse Ox 98% on 2 lpm NC; la1 MDM: 08:18 Patient medically screened. [facility] 08:22 Data reviewed: vital signs, nurses notes, lab test result(s), EKG, radiologic studies. [facility] 08/22 08:21 Order name: Basic Metabolic Panel [facility] 08/22 08:21 Order name: CBC with Diff 08/22 08:21 Order name: LFT's [facility] 08/22 08:21 Order name: Magnesium; Complete Time: 09:01 [facility] 08/22 08:21 Order name: NT PRO-BNP; Complete Time: 09:01 [facility] 08/22 08:21 Order name: PT-INR; Complete Time: 08:58 [facility] 08/22 08:21 Order name: Troponin (emerg Dept Use Only); Complete Time: 09:01 [facility] 08/22 08:22 Order name: Lipase; Complete Time: 09:01 [facility] 08/22 08:22 Order name: Urine Culture [facility] 08/22 08:22 Order name: Type And Screen [facility] 08/22 08:24 Order name: Basic Metabolic Panel; Complete Time: 09:01 EDMT 08/22 08:24 Order name: CBC with Automated Diff; Complete Time: 10:32 [facility] 08/22 08:24 Order name: Liver (Hepatic) Function; Complete Time: 09:01 [facility] 08/22 08:46 Order name: CBC Smear Scan; Complete Time: 10:32 EDMT 08/22 08:21 Order name: XRAY Chest (1 view); Complete Time: 10:32 [facility] 08/22 09:01 Order name: CT Head Brain wo Cont; Complete Time: 10:32 [facility] 08/22 09:03 Order name: Bb Add On bd 08/22 09:20 Order name: Fresh Frozen Plasma [facility] 08/22 11:49 Order name: Urine Dipstick--Ancillary (enter results) 08/22 08:21 Order name: EKG; Complete Time: 08:25 [facility] 08/22 08:22 Order name: Cardiac monitoring; Complete Time: 08:36 [facility] 08/22 08:22 Order name: EKG - Nurse/Tech; Complete Time: 08:51 [facility] 08/22 08:22 Order name: IV Saline Lock; Complete Time: 08:36 [facility] 08/22 08:22 Order name: Labs collected and sent; Complete Time: 08:36 [facility] 08/22 08:22 Order name: O2 Per Protocol; Complete Time: 08:51 [facility] 08/22 08:22 Order name: O2 Sat Monitoring; Complete Time: 08:51 [facility] 08/22 08:22 Order name: Urine Dipstick-Ancillary (obtain specimen); Complete Time: 11:44 [facility] 08/22 08:22 Order name: IV Saline Lock - Large Bore; Complete Time: 08:50 [facility] 08/22 10:34 Order name: Dos Santos; Complete Time: 11:43 [facility] Administered Medications: Discontinued: NS 0.9% 500 ml IV at bolus once Discontinued: NS 0.9% 1000 ml IV at 125 ml/hr continuous 08:49 Drug: NS 0.9% 1000 ml Route: IV; Rate: 125 ml/hr; Site: left antecubital; la1 09:44 Follow up: IV Status: Order to discontinue infusion la1 08:50 Drug: NS 0.9% 500 ml Route: IV; Rate: bolus; Site: left antecubital; la1 09:44 Follow up: IV Status: Order to discontinue infusion la1 09:12 Drug: SandoSTATIN 50 mcg Route: IV; Rate: per protocol; Site: left antecubital; la1 09:38 Follow up: IV Status: Infusion continued upon transfer la1 09:12 Drug: NS 0.9% 1000 ml Route: IV; Rate: 100 ml/hr; Site: left antecubital; la1 09:37 Follow up: IV Status: Infusion continued upon transfer la1 09:13 Drug: SandoSTATIN 25 mcg/h Route: IV; Rate: calculated rate; Site: left antecubital; la1 09:38 Follow up: IV Status: Infusion continued upon transfer la1 09:15 Drug: ProTONIX 80 mg Route: IVP; Site: right forearm; la1 09:39 Follow up: Response: No adverse reaction la1 09:16 Drug: ProTONIX 8 mg/hr Route: IV; Rate: 25 ml/hr; Site: right forearm; la1 09:39 Follow up: IV Status: Infusion continued upon transfer la1 09:42 Drug: Vitamin K1 10 mg Route: Sub-Q; Site: left upper arm; la1 10:36 Follow up: Response: No adverse reaction la1 10:50 Drug: Lasix 20 mg Route: IVP; Site: right antecubital; la1 10:51 Follow up: Response: No adverse reaction la1 10:50 Drug: Rocephin - (cefTRIAXone) 1 grams Route: IVPB; Infused Over: 30 mins; Site: right la1 antecubital; 10:51 Follow up: IV Status: Infusion continued upon transfer la1 Disposition: 08/22/18 08:[address] [facility]. Diagnosis are Anemia, unspecified, Gastrointestinal hemorrhage, unspecified, Weakness, Altered mental status, unspecified, Coagulation defect, unspecified - coumadin toxic/therapy, Unspecified combined systolic (congestive) and diastolic (congestive) heart failure, Retention of urine - post void 1000cc. - Reason for transfer: Higher level of care. - Accepting physician is to [facility], [facility]. - Condition is Serious. - Problem is new. - Symptoms have improved. Signatures: Dispatcher [employer] EDMS Doug Barksdale MD MD cha Williams, Irene RN Valente Bhat RN RN la1 Corrections: (The following items were deleted from the chart) 09:24 08:27 08/22/2018 08:[address] [facility]. Diagnosis is dewayne Anemia, unspecified; Gastrointestinal hemorrhage, unspecified; Weakness; Altered mental status, unspecified. Reason for transfer: Higher level of care. Accepting physician is to [facility], [facility]. Condition is Serious. Problem is new. Symptoms have improved. dewayne 10:35 09:24 08/22/2018 08:[address] [facility]. Diagnosis is dewayne Anemia, unspecified; Gastrointestinal hemorrhage, unspecified; Weakness; Altered mental status, unspecified; Coagulation defect, unspecified - coumadin toxic/therapy. Reason for transfer: Higher level of care. Accepting physician is to [facility], [facility]. Condition is Serious. Problem is new. Symptoms have improved. dewayne 11:20 10:35 08/22/2018 08:[address] [facility]. Diagnosis is dewayne Anemia, unspecified; Gastrointestinal hemorrhage, unspecified; Weakness; Altered mental status, unspecified; Coagulation defect, unspecified - coumadin toxic/therapy; Unspecified combined systolic (congestive) and diastolic (congestive) heart failure. Reason for transfer: Higher level of care. Accepting physician is to [facility], [facility]. Condition is Serious. Problem is new. Symptoms have improved. dewayne 12:19 11:20 08/22/2018 08:[address] [facility]. Diagnosis is la1 Anemia, unspecified; Gastrointestinal hemorrhage, unspecified; Weakness; Altered mental status, unspecified; Coagulation defect, unspecified - coumadin toxic/therapy; Unspecified combined systolic (congestive) and diastolic (congestive) heart failure; Retention of urine - post void 1000cc. Reason for transfer: Higher level of care. Accepting physician is to [facility], [facility]. Condition is Serious. Problem is new. Symptoms have improved. dewayne
[2018-08-22 08:42] LABS: Absolute Lymphocytes (CBC) 0.7 K/uL (0.7-4.9); Basophils % 0.5 % (0-1.3); Eosinophils % 1.1 % (0-4.4); Hematocrit 26.6 % (39.6-49.0); Lymphocytes % 16.5 % (15.3-44.8); MPV 9.1 fL (7.6-11.3); Monocytes % 11.7 % (3.3-12.3); RBC Red Blood Cell Count 2.66 M/uL (4.33-5.43)
[2018-08-22 08:45] LABS: Protime INR 3.22
[2018-08-22] MEDS ORDERED: NA CHLORIDE 0.9% 100 ML IV ONE (08:54)
[2018-08-22] MEDS ORDERED: PANTOPRAZOLE 40 MG INJ ONE (08:54)
[2018-08-22] MEDS ORDERED: NA CHLORIDE 0.9% 1,000 ML ONE (08:54)
[2018-08-22 09:00] LABS: Albumin 3.8 g/dL (3.4-5.0); Bilirubin Direct 0.5 mg/dL (0-0.2); Bilirubin Total 1.8 mg/dL (0.2-1.0); Magnesium 2.3 mg/dL (1.8-2.4); Potassium 3.8 mmol/L (3.5-5.1); Protein, Total 7.4 g/dL (6.4-8.2); Troponin (Emerg Dept Use Only) 0.02 ng/mL (0.0-0.045)
[2018-08-22] MEDS ORDERED: PANTOPRAZOLE INJ 80 MG in NA CHLORIDE 0.9% 250 ML IV ONE (09:00)
[2018-08-22] MEDS ORDERED: OCTREOTIDE 500 MCG in NA CHLORIDE 0.9% 500 ML IV ONE (09:00)
[2018-08-22] MEDS ORDERED: OCTREOTIDE ACETATE 100 MCG/ML IV ONE (09:00)
[2018-08-22] MEDS ORDERED: VITAMIN K (ADULT) 10 MG/ML ONE (09:34)
[2018-08-22 09:37] LABS: Blood Morphology Comment NOTED (NOT SEEN); Platelet Estimate DECR; Urine White Blood Cell Casts OK
[2018-08-22 09:38] LABS: Anisocytosis 2+; Poikilocytosis 1+
--- NOTE | 2018-08-22 09:41 | RAD REPORT ---
EXAM DESCRIPTION: CT - Head Brain Wo Cont - 08/22/2018 9:23 am CLINICAL HISTORY: Transient alteration of awareness COMPARISON: None. TECHNIQUE: Axial 5 mm thick images of the head were obtained without IV contrast. All CT scans are performed using dose optimization technique as appropriate and may include automated exposure control or mA/KV adjustment according to patient size. FINDINGS: No intracranial hemorrhage, mass, edema or shift of mid-line structures. No acute infarcti on changes seen. Mild underlying atrophy and mild chronic ischemic changes are present. Ventricles ar e in proportion to volume loss. Arterial and physiologic calcifications are present. Mastoid air cells are clear. Mucosal thickening seen in each maxillary sinus. No acute bony findings. IMPRESSION: Mild atrophy and mild chronic ischemic changes are present. No acute intracranial findin g. Maxillary sinus mucosal thickening without air-fluid level.
--- NOTE | 2018-08-22 09:45 | RAD REPORT ---
EXAM DESCRIPTION: RAD - Chest Single View - 08/22/2018 8:41 am CLINICAL HISTORY: Cough COMPARISON: January 2018 TECHNIQUE: AP portable chest image was obtained 0838 hours . FINDINGS: No peripheral mass or consolidation. Interstitial markings are increased slightly from bas peter. Cardiac silhouette is enlarged. Vasculature is prominent. Findings are increased slightly from comparison. Sternotomy wires are in place. No measurable pleural effusion and no pneumothorax. No ac [place] bony abnormality seen. No acute aortic findings suspected. IMPRESSION: Suspected mild failure or volume overload superimposed on chronic lung disease.
[2018-08-22] MEDS ORDERED: NA CHLORIDE 0.9% 500 ML ONE (10:08)
[2018-08-22] MEDS ORDERED: FUROSEMIDE 20 MG/ 2ML VIAL ONE (10:48)
[2018-08-22] MEDS ORDERED: CEFTRIAXONE/SWI 1gm 1 GM/10 ML SYR ONE (10:49)
[2018-08-22 12:18] LABS: Urine Blood NEGATIVE (NEG); Urine Glucose NEGATIVE (NEG); Urine Protein 1+ (NEG); Urine Specific Gravity 1.015 (1.005-1.030)
[2018-08-22 12:46] VITALS: O2SAT 98
[2018-08-22 12:51] VITALS: TEMP 98.4
[2018-08-22 12:52] VITALS: BP 135/55
--- NOTE | 2018-08-23 07:55 | EKG ---
Test Date: 2018-08-22 Test Time: 08:43:52 [employer] Teacher: THALIA MEASUREMENT RESULTS: Intervals: Rate: 77 [place]: QRSD: 156 QT: 442 QTc: 500 [place]: P: [place]: QRS: -85 T: 38 INTERPRETIVE STATEMENTS: Atrial fibrillation Left axis deviation Right bundle branch block Possible Lateral infarct, age undetermined Inferior infarct, age undetermined Abnormal ECG Compared to ECG 03/01/2018 16:56:31 Left-axis deviation now present Myocardial infarct finding still present Electronically Signed On 08-23-18 07:53:47 CDT by You Garay
== END 2018-08-22 12:19 | disposition short-term general hospital (02) ==
LOC: ER 08:13
PROC: 30233K1 Transfusion of Nonautologous Frozen Plasma into Peripheral Vein, Percutaneous Approach (ICD-10-PCS; principal; 2018-08-22)
DX: D64.9 Anemia, unspecified (principal); R53.1 Weakness; R41.82 Altered mental status, unspecified; D68.9 Coagulation defect, unspecified; I50.40 Unspecified combined systolic (congestive) and diastolic (congestive) heart failure; R33.9 Retention of urine, unspecified; I10 Essential (primary) hypertension; I25.2 Old myocardial infarction; E11.9 Type 2 diabetes mellitus without complications; I48.91 Unspecified atrial fibrillation; E78.5 Hyperlipidemia, unspecified; Z79.01 Long term (current) use of anticoagulants
CPT/HCPCS: 93005; 87088; 85025; 80048; 36415; 86900; 83735; 86850; 85610; 86901; 80076; 81003; 84484; 83690; 83880; 70450; 71045; 96372; 99285; 36430; J1940; J3430; J2354 ×2; C9113 ×2; J0696; P9059 ×2; J7030; 87086

== ENCOUNTER 2018-09-03 11:10 | Inpatient (IN) | payer MEDICARE, BC ==
--- NOTE | 2018-09-03 12:23 | R.PREADM ---
SCREENING DATE AND TIME 09/03/2018 11:21 (CDT) ANTICIPATED REHAB ADMISSION DATE 09/05/2018 REFERRING FACILITY [facility] REFERRAL DATE AND TIME 09/03/2018 11:21 (CDT) ACUTE ADMIT DATE 08/22/2018 Previous Rehabilitation(s): No. 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 Juan Carlos August M.D. [facility]# [id number] [id number] NAME KAYLEE ARRIAGA [address]ESS [address] [facility] [facility] [id number] DATE OF 1930 AGE 88 SSN# [id number] GENDER male MARITAL STATUS RACE white ADMIT FROM 02 - [facility] PRE-HOSPITAL LIVING SETTING 01 - Home (private home/apt. board/care, assisted living, penitentiary, transitional living) HOME TYPE AND DETAILS Type of home: single family house # of steps to enter the residence: 0 # of steps within the residence: 0 # of levels in the residence: 1 PRE-HOSPITAL LIVING WITH Family/Relatives FAMILY SUPPORT Yes PRIMARY FAMILY CONTACT NAME Tika Arriaga PRIMARY FAMILY CONTACT PHONE PHONE PRIMARY FAMILY CONTACT ON ADM.? no IS PRIMARY FAMILY CONTACT AUTH. REP.? no 1ST EMERGENCY CONTACT Tika Arriaga 1ST CONTACT PHONE PHONE 1ST CONTACT ON ADM. no IS 1ST CONTACT AUTH. REP.? no PHONE 2ND CONTACT ON ADM.? no PATIENT EMPLOYMENT STATUS Retired (for age) PATIENT EMPLOYER No Employer PAYOR INFORMATION: 1ST PAYOR NAME Medicare 1ST PAYOR PHONE 1ST PAYOR INJURY/ILLNESS DUE TO ACCIDENT? No ANOTHER CONSTITUTION PARTY RESPONSIBLE? No PRIMARY REHAB/ACUTE DIAGNOSIS: GI Bleed/metabolic encephalopathy ONSET DATE 08/22/2018 REHAB IMPAIRMENT CATEGORY (DAVIN): 20 Miscellaneous (Misc) does NOT meet 60% rule PRIMARY DIAGNOSIS-RELATED SURGERIES: No surgeries related to the primary diagnosis were performed. COMORBID REHAB/ACUTE DIAGNOSES: - N/A acute upper GI Bleed toxic metabolic encephalopathy atrial fibrillation w/rvr diabetes mellitus type 2 BPH CAD cardiac cirrhosis HCC HTN HLD INTERVENTIONS: - CAD 02 sats Activity management Medications VS RISK FOR COMPLICATIONS: - CAD CHF Cardiac Arrest NM Pain SUMMARY OF ACUTE HOSPITALIZATION: Pt. is a 88 yo Right-handed white male. On 08/22/2018 he was admitted to [facility] with diagnosis GI Bleed/metabo lic encephalopathy. His impairment category is Medically Complex Conditions 17 - Other Medically Complex Conditions (17. 9). Pre-morbidly, Pt. was independent/mod-I in Self-Care, Sphincter Control, Transfers Control, Communica tion, Social Cognition, and Locomotion; and he had good Sphincter Control. Currently, he has deficits of Self-Care, Transfers Control, Communication, Social Cognition, Enduranc e, Balance, Safety Awareness, and Locomotion. Pt. is now referred to [facility] for acute in-patient rehabilitation in order to maximize patient's functional independence in activities of daily living, strength, ROM, and mobi lity. Patient has realistic goal of being discharged at assistance level 4-Joe to reside at Home with Fam deon/Relatives. 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) PAST SURGICAL HISTORY: cabg thrombocytopenia MEDICATION ALLERGIES: LEVOFLOXACIN metformin ENVIRONMENTAL ALLERGIES: - Substance Allergies None Known - Other Allergies None Known CODE STATUS: Full code WEIGHT/HEIGHT/BMI: WEIGHT 175 lbs HEIGHT 5' 7" BMI 27.4 DIET: - Diet Type Regular - Diet - Solid Texture Regular - Diet - Liquid Texture Regular - Tube Feed N/A REVIEW OF SYSTEMS: - Gen Alert and awake Lying in bed No apparent distress Oriented to: person, time, and place - Vital Signs Vital signs stable, afebrile - CVS RRR VITAL SIGNS Temperature: 99.1 F SBP/DBP: 119/56 Pulse: 70 Resp: 18 Vital signs stable, afebrile MEDICATIONS/TREATMENT: Other- See attached MAR (Medication Administration Record) [id number]. CURRENT SPHINCTER CONTROL: Pre-hospital bladder status: continent # of bladder accidents in the last 7 days prior to screenin Pre-hospital bowel status: unspecified # of bowel accidents in the last 7 days prior to screenin Last Bowel Movement Date: 09/03/2018 DETAILED CURRENT FUNCTIONAL STATUS: - Bladder accident frequency: Ind - No accidents in the past 7 days - Bowel accident frequency: Ind - No accidents in the past 7 days - Walking score based on distance walked: 3(>=150ft) FUNCTIONAL STATUS: - Self-Care A. Eating Ind Joe B. Grooming Ind Charo C. Bathing Ind Joe D. Dressing - Upper Ind sup E. Dressing - Lower Ind modA F. Toileting Ind Joe - Sphincter Control G: Bladder control Ind Ind H: Bowel control Ind Ind - Transfers Control I. Bed/Chair/Wheelchair Ind Joe J. Toilet Ind Joe K. Tub/Shower Ind Joe - Locomotion L. Walk/Wheelchair (B) Ind Joe M. Stairs Ind ADNO - Communication N. Comprehension (B) Ind Joe O. Expression (B) Ind Joe - Social Cognition P. Social Interaction Ind Joe Q. Problem Solving Ind Joe R. Memory Ind Joe - Endurance Fair - Balance Fair - Safety Awareness Poor CURRENT FUNC. DEFICITS: Self-Care, Transfers Control, Communication, Social Cognition, Endurance, Balance, Safety Awareness, and Locomotion THERAPY NOTES FROM ACUTE CARE: Attached. SPECIAL NEEDS: - Safety Concerns Skin breakdown precautions needed due to skin breakdown risk PATIENT NEEDS ACTIVE AND ONGOING THERAPEUTIC INTERVENTION OF MULTIPLE THERAPY DISCIPLINES, INCLUDING: - Dietary and Nutrition Adequate Nutrition. Nutritional Education. Nutritional Supplements. PATIENT NEEDS CLOSE MEDICAL SUPERVISION BY A REHABILITATION PHYSICIAN FOR: Bowel and Bladder Management Coordination of Treatment Team Diabetes Management Medical and Co-Morbidity Management PATIENT REQUIRES 24X7 REHAB NURSING FOR MEDICAL AND FUNCTIONAL MGT. OF THE FOLLOWING DEFICITS: ADL's Ambulation Bowel and Bladder Management Cognition Communication Disease Management Medication Management Patient/Family Education Providing Safe Environment Transfers PATIENT REQUIRES INTENSIVE, COORDINATED INTERDISCIPLINARY APPROACH TO REHAB: Arranging Home Equipment/Services Discharge Planning Family Intervention/Training Analytical Clerk/Case Management PATIENT REHAB POTENTIAL: Angela ARRIAGA is able and expected to receive 3 hours of individualized therapy daily on at least 5 of ev geoffrey 7 days MelonyTroy ARRIAGA's prognosis for significant practical improvement within a reasonable period of time appear s Good Expected level of measurable improvement will be of a practical value to Angela QUINTEROADRIEN's functional capac ity or adaptations to impairments Has a viable Discharge Plan Medically appropriate; condition is sufficiently stable to participate in intensive rehab program DISCHARGE PLAN: - Estimated Length of Stay (days) 13. - Consensus on plan Discharge plan has been discussed with primary caregiver. Patient/Family is in agreement with the maya n. Primary caregiver is in agreement with the plan. - Patient/Family Goals Return home with assistance. - Planned Living Setting Upon Discharge Home, to live with Family/Relatives. RECOMMENDED CARE LEVEL: IRF RECOMMENDATION DETAILS: Recommended Admission to Comprehensive Rehabilitation Program to Increase Functional Kouts SCREENER'S COMPLETENESS CONFIRMATION: - Screening Confirmation The patient data collection on this preadmission screening form is finished PHYSICIANS REVIEW AND ADMISSION DETERMINATION Admit - Based on my review of the Pre-Admission Screening results, in my medical judgment and experie nce, I concur with the findings and recommend admission to [facility], as this patient requires an IRF level of care. SIGNATURE PANEL: Clinical Liaison - [electronically] signed by Laura Lea on 09/03/2018 at 12:15 (CDT) Clinical Liaison - [electronically] signed by Huseyin Marx on 09/03/2018 at 12:21 (CDT) Physician Reviewer - [electronically] signed by Dr. Juan Carlos August M.D. on 09/03/2018 at 12:22 (CDT )
--- OUTSIDE RECORDS SUMMARY | 2018-09-03 18:00 | XMS REPORT ---
:1930 Author Organization [facility] Address [address] [place] [address] Care Team Providers Name Role Phone CHARANJIT MUÑIZ Unavailable Unavailable SHANT DOOLEY Unavailable Unavailable MACARIO CHARLES Unavailable Unavailable JAIRON BALLARD Unavailable Unavailable Problems This patient has no known problems. Allergies, Adverse Reactions, Alerts This patient has no known allergies or adverse reactions. Medications This patient has no known medications. Results Test Description Test Time Test Comments Text Results Atomic Results Result Comments POCT-GLUCOSE METER 2018-09-03 12:51:00 Test Item Value Reference Range Comments POC-GLUCOSE METER (BEAKER) (test 127 mg/dL 70-110 TESTED AT [address] tdxi=0834) [facility] [address] POCT-GLUCOSE [id number] 08:51:00 Test Item Value Reference Range Comments POC-GLUCOSE METER (BEAKER) 104 mg/dL 70-110 TESTED AT [address] (test fdoi=3190) [facility] [address] BASIC METABOLIC [id number] 07:00:00 Test Item Value Reference Range Comments SODIUM (BEAKER) (test 135 meq/L 136-145 lfyc=382) POTASSIUM (BEAKER) (test 4.2 meq/L 3.5-5.1 rigy=417) CHLORIDE (BEAKER) (test 107 meq/L 98-107 xkzn=700) CO2 (BEAKER) (test 22 meq/L 22-29 fmmf=189) BLOOD UREA NITROGEN 23 mg/dL 7-21 (BEAKER) (test ibpf=327) CREATININE (BEAKER) (test 1.05 mg/dL 0.57-1.25 upue=293) GLUCOSE RANDOM (BEAKER) 101 mg/dL 70-105 (test ctrq=643) CALCIUM (BEAKER) (test 8.3 mg/dL 8.4-10.2 koka=899) EGFR (BEAKER) (test 67 mL/min/1.73 sq m ESTIMATED GFR IS NOT ftaf=9244) ACCURATE CREATININE CLEARANCE IN PREDICTING GLOMERULAR FILTRATION RATE. ESTIMATED GFR IS NOT APPLICABLE FOR DIALYSIS PATIENTS. Specimen slightly ictericCBC (HEMOGRAM ONLY)2018-09-03 06:12:00 Test Item Value Reference Range Comments WHITE BLOOD CELL COUNT (BEAKER) (test quyn=808) 4.2 K/ L 3.5-10.5 RED BLOOD CELL COUNT (BEAKER) (test myhm=992) 2.54 M/ L 4.63-6.08 HEMOGLOBIN (BEAKER) (test qanu=951) 8.4 GM/DL 13.7-17.5 HEMATOCRIT (BEAKER) (test afgz=024) 26.0 % 40.1-51.0 MEAN CORPUSCULAR VOLUME (BEAKER) (test qahl=750) 102.4 fL 79.0-92.2 MEAN CORPUSCULAR HEMOGLOBIN (BEAKER) (test 33.1 pg 25.7-32.2 lghe=280) MEAN CORPUSCULAR HEMOGLOBIN CONC (BEAKER) (test 32.3 GM/DL 32.3-36.5 uosq=363) RED CELL DISTRIBUTION WIDTH (BEAKER) (test 16.6 % 11.6-14.4 gveo=139) PLATELET COUNT (BEAKER) (test zrts=583) 137 K/CU MM 150-450 MEAN PLATELET VOLUME (BEAKER) (test gowv=640) 10.6 fL 9.4-12.4 NUCLEATED RED BLOOD CELLS (BEAKER) (test 0 /100 WBC 0-0 tkfp=003) POCT-GLUCOSE [id number] 21:00:00 Test Item Value Reference Range Comments POC-GLUCOSE METER (BEAKER) 133 mg/dL 70-110 TESTED AT [address] (test zthc=6103) [facility] [address] POCT-GLUCOSE [id number] 16:55:00 Test Item Value Reference Range Comments POC-GLUCOSE METER (BEAKER) 148 mg/dL 70-110 TESTED AT [address] (test rtlg=3427) [facility] [address] POCT-GLUCOSE [id number] 13:18:00 Test Item Value Reference Range Comments POC-GLUCOSE METER (BEAKER) 136 mg/dL 70-110 TESTED AT [facility] [address] [facility] (test vwau=9394) [facility] [address] POCT-GLUCOSE [id number] 08:34:00 Test Item Value Reference Range Comments POC-GLUCOSE METER (BEAKER) 107 mg/dL 70-110 TESTED AT [facility] [address] [facility] (test yskt=7420) [facility] [address] BASIC METABOLIC [id number] 07:18:00 Test Item Value Reference Range Comments SODIUM (BEAKER) (test 134 meq/L 136-145 ocii=610) POTASSIUM (BEAKER) (test 4.1 meq/L 3.5-5.1 oumo=394) CHLORIDE (BEAKER) (test 105 meq/L 98-107 uyod=728) CO2 (BEAKER) (test 24 meq/L 22-29 wasj=944) BLOOD UREA NITROGEN 31 mg/dL 7-21 (BEAKER) (test dubg=483) CREATININE (BEAKER) (test 1.16 mg/dL 0.57-1.25 yswm=730) GLUCOSE RANDOM (BEAKER) 91 mg/dL 70-105 (test zxak=792) CALCIUM (BEAKER) (test 8.4 mg/dL 8.4-10.2 phhu=368) EGFR (BEAKER) (test 60 mL/min/1.73 sq m ESTIMATED GFR IS NOT hfyd=9408) ACCURATE CREATININE CLEARANCE IN PREDICTING GLOMERULAR FILTRATION RATE. ESTIMATED GFR IS NOT APPLICABLE FOR DIALYSIS PATIENTS. Specimen slightly ictericCBC W/PLT COUNT & AUTO [id number] 06:32 :00 Test Item Value Reference Range Comments WHITE BLOOD CELL COUNT (BEAKER) (test ymzb=439) 4.4 K/ L 3.5-10.5 RED BLOOD CELL COUNT (BEAKER) (test teiv=273) 2.43 M/ L 4.63-6.08 HEMOGLOBIN (BEAKER) (test ocje=580) 7.9 GM/DL 13.7-17.5 HEMATOCRIT (BEAKER) (test cklk=192) 25.5 % 40.1-51.0 MEAN CORPUSCULAR VOLUME (BEAKER) (test yxjs=152) 104.9 fL 79.0-92.2 MEAN CORPUSCULAR HEMOGLOBIN (BEAKER) (test 32.5 pg 25.7-32.2 zrmz=810) MEAN CORPUSCULAR HEMOGLOBIN CONC (BEAKER) (test 31.0 GM/DL 32.3-36.5 gbsr=928) RED CELL DISTRIBUTION WIDTH (BEAKER) (test 16.1 % 11.6-14.4 anxa=731) PLATELET COUNT (BEAKER) (test avsj=127) 136 K/CU MM 150-450 MEAN PLATELET VOLUME (BEAKER) (test lgmp=524) 10.5 fL 9.4-12.4 NUCLEATED RED BLOOD CELLS (BEAKER) (test 0 /100 WBC 0-0 gvbk=767) NEUTROPHILS RELATIVE PERCENT (BEAKER) (test 69 % mdre=717) LYMPHOCYTES RELATIVE PERCENT (BEAKER) (test 13 % hvzh=854) MONOCYTES RELATIVE PERCENT (BEAKER) (test 11 % bjza=098) EOSINOPHILS RELATIVE PERCENT (BEAKER) (test 6 % fein=895) BASOPHILS RELATIVE PERCENT (BEAKER) (test 1 % fzxr=454) NEUTROPHILS ABSOLUTE COUNT (BEAKER) (test 2.99 K/ L 1.78-5.38 vyti=730) LYMPHOCYTES ABSOLUTE COUNT (BEAKER) (test 0.56 K/ L 1.32-3.57 lpez=428) MONOCYTES ABSOLUTE COUNT (BEAKER) (test 0.49 K/ L 0.30-0.82 crxa=053) EOSINOPHILS ABSOLUTE COUNT (BEAKER) (test 0.28 K/ L 0.04-0.54 rzvj=939) BASOPHILS ABSOLUTE COUNT (BEAKER) (test 0.02 K/ L 0.01-0.08 dkze=758) IMMATURE GRANULOCYTES-RELATIVE PERCENT (BEAKER) 1 % 0-1 (test ozlp=5821) POCT-GLUCOSE [id number] 21:22:00 Test Item Value Reference Range Comments POC-GLUCOSE METER (BEAKER) 190 mg/dL 70-110 TESTED AT [address] (test vssp=2452) [facility] [address] POCT-GLUCOSE [id number] 17:49:00 Test Item Value Reference Range Comments POC-GLUCOSE METER (BEAKER) 112 mg/dL 70-110 TESTED AT [address] (test qeps=9381) [facility] [address] POCT-GLUCOSE [id number] 13:14:00 Test Item Value Reference Range Comments POC-GLUCOSE METER (BEAKER) 137 mg/dL 70-110 TESTED AT [facility] [address] [facility] (test drkw=6485) [facility] [address] POCT-GLUCOSE [id number] 07:55:00 Test Item Value Reference Range Comments POC-GLUCOSE METER (BEAKER) 102 mg/dL 70-110 TESTED AT [facility] [address] [facility] (test wxwe=0097) [facility] [address] CBC W/PLT COUNT & AUTO [id number] 06:09:00 Test Item Value Reference Range Comments WHITE BLOOD CELL COUNT (BEAKER) (test ftzq=638) 5.2 K/ L 3.5-10.5 RED BLOOD CELL COUNT (BEAKER) (test epzy=199) 2.48 M/ L 4.63-6.08 HEMOGLOBIN (BEAKER) (test mkru=327) 8.2 GM/DL 13.7-17.5 HEMATOCRIT (BEAKER) (test ssfb=625) 25.4 % 40.1-51.0 MEAN CORPUSCULAR VOLUME (BEAKER) (test oezo=628) 102.4 fL 79.0-92.2 MEAN CORPUSCULAR HEMOGLOBIN (BEAKER) (test 33.1 pg 25.7-32.2 mosz=392) MEAN CORPUSCULAR HEMOGLOBIN CONC (BEAKER) (test 32.3 GM/DL 32.3-36.5 zvhx=340) RED CELL DISTRIBUTION WIDTH (BEAKER) (test 16.8 % 11.6-14.4 igvp=351) PLATELET COUNT (BEAKER) (test cytf=414) 136 K/CU MM 150-450 MEAN PLATELET VOLUME (BEAKER) (test irhw=060) 9.9 fL 9.4-12.4 NUCLEATED RED BLOOD CELLS (BEAKER) (test 0 /100 WBC 0-0 rwou=443) NEUTROPHILS RELATIVE PERCENT (BEAKER) (test 68 % newn=340) LYMPHOCYTES RELATIVE PERCENT (BEAKER) (test 15 % vnzu=408) MONOCYTES RELATIVE PERCENT (BEAKER) (test 10 % kape=519) EOSINOPHILS RELATIVE PERCENT (BEAKER) (test 6 % pizx=407) BASOPHILS RELATIVE PERCENT (BEAKER) (test 0 % hzlp=699) NEUTROPHILS ABSOLUTE COUNT (BEAKER) (test 3.52 K/ L 1.78-5.38 wjut=252) LYMPHOCYTES ABSOLUTE COUNT (BEAKER) (test 0.76 K/ L 1.32-3.57 yorx=756) MONOCYTES ABSOLUTE COUNT (BEAKER) (test 0.53 K/ L 0.30-0.82 hipi=687) EOSINOPHILS ABSOLUTE COUNT (BEAKER) (test 0.33 K/ L 0.04-0.54 yzll=801) BASOPHILS ABSOLUTE COUNT (BEAKER) (test 0.02 K/ L 0.01-0.08 lbzw=602) IMMATURE GRANULOCYTES-RELATIVE PERCENT (BEAKER) 1 % 0-1 (test uvfe=7377) BASIC METABOLIC [id number] 05:59:00 Test Item Value Reference Range Comments SODIUM (BEAKER) (test 135 meq/L 136-145 peur=211) POTASSIUM (BEAKER) (test 4.6 meq/L 3.5-5.1 imdj=844) CHLORIDE (BEAKER) (test 104 meq/L 98-107 itif=794) CO2 (BEAKER) (test 24 meq/L 22-29 fixp=446) BLOOD UREA NITROGEN 35 mg/dL 7-21 (BEAKER) (test oyvq=686) CREATININE (BEAKER) (test 1.22 mg/dL 0.57-1.25 hjgj=188) GLUCOSE RANDOM (BEAKER) 99 mg/dL 70-105 (test cxfm=283) CALCIUM (BEAKER) (test 8.5 mg/dL 8.4-10.2 wohk=652) EGFR (BEAKER) (test 56 mL/min/1.73 sq m ESTIMATED GFR IS NOT zujz=6716) ACCURATE CREATININE CLEARANCE IN PREDICTING GLOMERULAR FILTRATION RATE. ESTIMATED GFR IS NOT APPLICABLE FOR DIALYSIS PATIENTS. Specimen slightly ictericPOCT-GLUCOSE [id number] 22:01:00 Test Item Value Reference Range Comments POC-GLUCOSE METER (BEAKER) 136 mg/dL 70-110 TESTED AT [address] (test bcuv=6560) [facility] [address] FL, ESOPH, SWALLOW FUNCTION, WITH CINE OR [id number] 17:39:00Reason for exam:->DysphagiaFINAL REPORT INDICATION: Dysphagia. TECHNIQUE: The patient was administered various consistencies of liquid and food mixed with barium. Swallowing was observed with the speech pathologist present. Fluoroscopy time 1.6 minutes.Fluoroscopic images 1 FINDINGS / IMPRESSION:There wasaspiration on thin consistency and penetration on nectar consistency. Please see report written by the speech pathologist for detailed report and recommendations. Signed: Rashad Hernandes MDReport Verified Date/Time : 08/31/2018 17:39:54 Reading Location: [facility] B1 [id number] Ortho Consult Reading Room 05: 39 PMPOCT-GLUCOSE [id number] 17:04:00 Test Item Value Reference Range Comments POC-GLUCOSE METER (BEAKER) 154 mg/dL 70-110 TESTED AT [address] (test enoo=8384) [place] [id number] POCT-GLUCOSE [id number] 13:17:00 Test Item Value Reference Range Comments POC-GLUCOSE METER (BEAKER) 168 mg/dL 70-110 TESTED AT [address] (test umuy=9134) [place] [id number] POCT-GLUCOSE [id number] 12:33:00 Test Item Value Reference Range Comments POC-GLUCOSE METER (BEAKER) 127 mg/dL 70-110 TESTED AT [address] (test qqvp=1283) [facility] [address] CBC W/PLT COUNT & AUTO [id number] 05:57:00 Test Item Value Reference Range Comments WHITE BLOOD CELL COUNT (BEAKER) (test rmln=383) 5.4 K/ L 3.5-10.5 RED BLOOD CELL COUNT (BEAKER) (test ddtp=303) 2.27 M/ L 4.63-6.08 HEMOGLOBIN (BEAKER) (test bxds=474) 7.5 GM/DL 13.7-17.5 HEMATOCRIT (BEAKER) (test wlyk=149) 23.6 % 40.1-51.0 MEAN CORPUSCULAR VOLUME (BEAKER) (test nyov=609) 104.0 fL 79.0-92.2 MEAN CORPUSCULAR HEMOGLOBIN (BEAKER) (test 33.0 pg 25.7-32.2 jfcz=099) MEAN CORPUSCULAR HEMOGLOBIN CONC (BEAKER) (test 31.8 GM/DL 32.3-36.5 guss=500) RED CELL DISTRIBUTION WIDTH (BEAKER) (test 16.0 % 11.6-14.4 mdpk=880) PLATELET COUNT (BEAKER) (test xvnj=214) 121 K/CU MM 150-450 MEAN PLATELET VOLUME (BEAKER) (test kopg=601) 10.8 fL 9.4-12.4 NUCLEATED RED BLOOD CELLS (BEAKER) (test 0 /100 WBC 0-0 mvcp=034) NEUTROPHILS RELATIVE PERCENT (BEAKER) (test 66 % tgdn=965) LYMPHOCYTES RELATIVE PERCENT (BEAKER) (test 14 % hvro=648) MONOCYTES RELATIVE PERCENT (BEAKER) (test 13 % tmto=983) EOSINOPHILS RELATIVE PERCENT (BEAKER) (test 5 % qwjw=189) BASOPHILS RELATIVE PERCENT (BEAKER) (test 0 % dpyk=797) NEUTROPHILS ABSOLUTE COUNT (BEAKER) (test 3.60 K/ L 1.78-5.38 cmbm=291) LYMPHOCYTES ABSOLUTE COUNT (BEAKER) (test 0.78 K/ L 1.32-3.57 ccoe=861) MONOCYTES ABSOLUTE COUNT (BEAKER) (test 0.71 K/ L 0.30-0.82 yccs=393) EOSINOPHILS ABSOLUTE COUNT (BEAKER) (test 0.29 K/ L 0.04-0.54 bdlw=501) BASOPHILS ABSOLUTE COUNT (BEAKER) (test 0.02 K/ L 0.01-0.08 pirl=526) IMMATURE GRANULOCYTES-RELATIVE PERCENT (BEAKER) 0 % 0-1 (test nzti=7561) TROPONIN [id number] 05:56:00 Test Item Value Reference Range Comments TROPONIN I (BEAKER) (test xyfp=319) 0.08 ng/mL 0.00-0.03 Troponin I (TnI) levels [...] failure, acidosis, acute neurological disease, and persistent tachyarrhythmia.[id number] 05:48:00 Test Item Value Reference Range Comments MAGNESIUM (BEAKER) (test kqzd=820) 2.2 mg/dL 1.6-2.6 BASIC METABOLIC [id number] 05:48:00 Test Item Value Reference Range Comments SODIUM (BEAKER) (test 135 meq/L 136-145 cjzp=008) POTASSIUM (BEAKER) (test 4.9 meq/L 3.5-5.1 nzvv=847) CHLORIDE (BEAKER) (test 105 meq/L 98-107 vzzu=664) CO2 (BEAKER) (test 27 meq/L 22-29 xnpg=758) BLOOD UREA NITROGEN 39 mg/dL 7-21 (BEAKER) (test mhms=356) CREATININE (BEAKER) (test 1.10 mg/dL 0.57-1.25 vrdr=531) GLUCOSE RANDOM (BEAKER) 115 mg/dL 70-105 (test ortv=566) CALCIUM (BEAKER) (test 8.4 mg/dL 8.4-10.2 silr=760) EGFR (BEAKER) (test 63 mL/min/1.73 sq m ESTIMATED GFR IS NOT baty=7093) ACCURATE CREATININE CLEARANCE IN PREDICTING GLOMERULAR FILTRATION RATE. ESTIMATED GFR IS NOT APPLICABLE FOR DIALYSIS PATIENTS. POCT-GLUCOSE [id number] 04:49:00 Test Item Value Reference Range Comments POC-GLUCOSE METER (BEAKER) 131 mg/dL 70-110 TESTED AT [address] (test koni=1098) [place] [address] POCT-GLUCOSE [id number] 22:24:00 Test Item Value Reference Range Comments POC-GLUCOSE METER (BEAKER) 180 mg/dL 70-110 TESTED AT [address] (test vxij=2407) [place] [address] POCT-GLUCOSE [id number] 17:17:00 Test Item Value Reference Range Comments POC-GLUCOSE METER (BEAKER) 176 mg/dL 70-110 TESTED AT [address] (test rpql=1825) [place] [address] POCT-GLUCOSE [id number] 11:51:00 Test Item Value Reference Range Comments POC-GLUCOSE METER (BEAKER) 180 mg/dL 70-110 TESTED AT [address] (test smey=6620) [place] [address] HEMOGLOBIN AND [id number] 07:49:00 Test Item Value Reference Range Comments HEMOGLOBIN (BEAKER) (test ftfy=124) 7.3 GM/DL 13.7-17.5 HEMATOCRIT (BEAKER) (test dfrb=511) 22.6 % 40.1-51.0 BASIC METABOLIC [id number] 06:43:00 Test Item Value Reference Range Comments SODIUM (BEAKER) (test 137 meq/L 136-145 kidj=989) POTASSIUM (BEAKER) (test 4.7 meq/L 3.5-5.1 rsor=803) CHLORIDE (BEAKER) (test 108 meq/L 98-107 nqaz=579) CO2 (BEAKER) (test 24 meq/L 22-29 fsdu=073) BLOOD UREA NITROGEN 37 mg/dL 7-21 (BEAKER) (test kwcy=109) CREATININE (BEAKER) (test 1.02 mg/dL 0.57-1.25 sckc=097) GLUCOSE RANDOM (BEAKER) 129 mg/dL 70-105 (test rnce=505) CALCIUM (BEAKER) (test 8.3 mg/dL 8.4-10.2 tath=816) EGFR (BEAKER) (test 69 mL/min/1.73 sq m ESTIMATED GFR IS NOT tqhx=4101) ACCURATE CREATININE CLEARANCE IN PREDICTING GLOMERULAR FILTRATION RATE. ESTIMATED GFR IS NOT APPLICABLE FOR DIALYSIS PATIENTS. POCT-GLUCOSE [id number] 06:26:00 Test Item Value Reference Range Comments POC-GLUCOSE METER (BEAKER) 173 mg/dL 70-110 TESTED AT [address] (test pnbj=2192) [facility] [address] POCT-GLUCOSE [id number] 00:26:00 Test Item Value Reference Range Comments POC-GLUCOSE METER (BEAKER) 182 mg/dL 70-110 TESTED AT [address] (test klev=3794) [facility] [address] POCT-GLUCOSE [id number] 18:53:00 Test Item Value Reference Range Comments POC-GLUCOSE METER (BEAKER) 174 mg/dL 70-110 TESTED AT [address] (test dwyr=0176) [facility] [address] POCT-GLUCOSE [id number] 12:47:00 Test Item Value Reference Range Comments POC-GLUCOSE METER (BEAKER) 215 mg/dL 70-110 TESTED AT [address] (test yelx=4773) [facility] [address] POCT-GLUCOSE [id number] 08:59:00 Test Item Value Reference Range Comments POC-GLUCOSE METER (BEAKER) 185 mg/dL 70-110 TESTED AT [facility] [address] [facility] (test aucq=5107) [facility] [address] POCT-GLUCOSE [id number] 06:33:00 Test Item Value Reference Range Comments POC-GLUCOSE METER (BEAKER) 195 mg/dL 70-110 TESTED AT [facility] [address] [facility] (test idyk=3537) [facility] [address] BASIC METABOLIC [id number] 03:42:00 Test Item Value Reference Range Comments SODIUM (BEAKER) (test 142 meq/L 136-145 edem=329) POTASSIUM (BEAKER) (test 4.4 meq/L 3.5-5.1 mgvc=086) CHLORIDE (BEAKER) (test 112 meq/L 98-107 dwiw=537) CO2 (BEAKER) (test 25 meq/L 22-29 uqkb=605) BLOOD UREA NITROGEN 34 mg/dL 7-21 (BEAKER) (test dqwb=531) CREATININE (BEAKER) (test 0.96 mg/dL 0.57-1.25 eppi=566) GLUCOSE RANDOM (BEAKER) 154 mg/dL 70-105 (test fbqp=967) CALCIUM (BEAKER) (test 8.7 mg/dL 8.4-10.2 uhva=437) EGFR (BEAKER) (test 74 mL/min/1.73 sq m ESTIMATED GFR IS NOT peji=3031) ACCURATE CREATININE CLEARANCE IN PREDICTING GLOMERULAR FILTRATION RATE. ESTIMATED GFR IS NOT APPLICABLE FOR DIALYSIS PATIENTS. PROTHROMBIN [id number] 03:37:00 Test Item Value Reference Range Comments PROTIME (BEAKER) (test pbyy=363) 14.7 seconds 11.9-14.2 INR (BEAKER) (test unwn=817) 1.2 <=5.9 Effective 07/28/2018: PT Reference Range ChangeNew: 11.9-14.2 Previous: 11.7- 14.7RECOMMENDED COUMADIN/WARFARIN INR THERAPY RANGESSTANDARD DOSE: 2.0-3.0 Includes: PROPHYLAXIS for venous thrombosis, systemic embolization; TREATMENT for venous thrombosis and/or pulmonary embolus.HIGH RISK: Target INR is2.5-3.5 for patients wiht mechanical heart valves.CBC W/PLT COUNT & AUTO [id number] 03:32:00 Test Item Value Reference Range Comments WHITE BLOOD CELL COUNT 5.5 K/ L 3.5-10.5 (BEAKER) (test styw=087) RED BLOOD CELL COUNT (BEAKER) 2.22 M/ L 4.63-6.08 (test exiw=892) HEMOGLOBIN (BEAKER) (test 7.3 GM/DL 13.7-17.5 hhrn=432) HEMATOCRIT (BEAKER) (test 23.1 % 40.1-51.0 ygrm=231) MEAN CORPUSCULAR VOLUME 104.1 fL 79.0-92.2 Discordant MCV results (BEAKER) (test aouk=678) compared to previous results; clinical correlation required. MEAN CORPUSCULAR HEMOGLOBIN 32.9 pg 25.7-32.2 (BEAKER) (test qlje=294) MEAN CORPUSCULAR HEMOGLOBIN 31.6 GM/DL 32.3-36.5 CONC (BEAKER) (test cwln=152) RED CELL DISTRIBUTION WIDTH 17.1 % 11.6-14.4 (BEAKER) (test gcdl=601) PLATELET COUNT (BEAKER) (test 105 K/CU MM 150-450 mebd=017) MEAN PLATELET VOLUME (BEAKER) 11.0 fL 9.4-12.4 (test jspp=128) NUCLEATED RED BLOOD CELLS 0 /100 WBC 0-0 (BEAKER) (test usfl=017) NEUTROPHILS RELATIVE PERCENT 64 % (BEAKER) (test ewow=631) LYMPHOCYTES RELATIVE PERCENT 14 % (BEAKER) (test jtwt=430) MONOCYTES RELATIVE PERCENT 13 % (BEAKER) (test nqzc=943) EOSINOPHILS RELATIVE PERCENT 8 % (BEAKER) (test ynop=553) BASOPHILS RELATIVE PERCENT 1 % (BEAKER) (test vhrp=063) NEUTROPHILS ABSOLUTE COUNT 3.55 K/ L 1.78-5.38 (BEAKER) (test feib=612) LYMPHOCYTES ABSOLUTE COUNT 0.75 K/ L 1.32-3.57 (BEAKER) (test jqkn=839) MONOCYTES ABSOLUTE COUNT 0.73 K/ L 0.30-0.82 (BEAKER) (test eopz=825) EOSINOPHILS ABSOLUTE COUNT 0.43 K/ L 0.04-0.54 (BEAKER) (test niwi=839) BASOPHILS ABSOLUTE COUNT 0.03 K/ L 0.01-0.08 (BEAKER) (test lklo=645) IMMATURE 1 % 0-1 GRANULOCYTES-RELATIVE PERCENT (BEAKER) (test ddoz=7169) POCT-GLUCOSE [id number] 00:13:00 Test Item Value Reference Range Comments POC-GLUCOSE METER (BEAKER) 187 mg/dL 70-110 TESTED AT [address] (test hznd=8421) [place] [address] POCT-GLUCOSE [id number] 18:27:00 Test Item Value Reference Range Comments POC-GLUCOSE METER (BEAKER) 184 mg/dL 70-110 TESTED AT [address] (test stwz=4862) [place] [address] POCT-GLUCOSE [id number] 14:01:00 Test Item Value Reference Range Comments POC-GLUCOSE METER (BEAKER) 224 mg/dL 70-110 TESTED AT [address] (test rrgz=5512) [place] [address] [id number] 06:44:00 Test Item Value Reference Range Comments MAGNESIUM (BEAKER) (test ocws=772) 2.6 mg/dL 1.6-2.6 BASIC METABOLIC [id number] 06:44:00 Test Item Value Reference Range Comments SODIUM (BEAKER) (test 146 meq/L 136-145 coex=818) POTASSIUM (BEAKER) (test 4.2 meq/L 3.5-5.1 wzeb=847) CHLORIDE (BEAKER) (test 115 meq/L 98-107 ucui=421) CO2 (BEAKER) (test 27 meq/L 22-29 txrl=293) BLOOD UREA NITROGEN 41 mg/dL 7-21 (BEAKER) (test nrfe=610) CREATININE (BEAKER) (test 1.18 mg/dL 0.57-1.25 nyib=256) GLUCOSE RANDOM (BEAKER) 157 mg/dL 70-105 (test keis=282) CALCIUM (BEAKER) (test 8.9 mg/dL 8.4-10.2 pgeh=386) EGFR (BEAKER) (test 58 mL/min/1.73 sq m ESTIMATED GFR IS NOT flub=7540) ACCURATE CREATININE CLEARANCE IN PREDICTING GLOMERULAR FILTRATION RATE. ESTIMATED GFR IS NOT APPLICABLE FOR DIALYSIS PATIENTS. POCT-GLUCOSE [id number] 06:21:00 Test Item Value Reference Range Comments POC-GLUCOSE METER (BEAKER) 181 mg/dL 70-110 TESTED AT [facility] [address] (test utcl=6192) [place] [address] PROTHROMBIN [id number] 05:09:00 Test Item Value Reference Range Comments PROTIME (BEAKER) (test eadj=104) 14.1 seconds 11.9-14.2 INR (BEAKER) (test srkd=579) 1.1 <=5.9 Effective 07/28/2018: PT Reference Range ChangeNew: 11.9-14.2 Previous: 11.7- 14.7RECOMMENDED COUMADIN/WARFARIN INR THERAPY RANGESSTANDARD DOSE: 2.0-3.0 Includes: PROPHYLAXIS for venous thrombosis, systemic embolization; TREATMENT for venous thrombosis and/or pulmonary embolus.HIGH RISK: Target INR is2.5-3.5 for patients wiht mechanical heart valves.CBC (HEMOGRAM ONLY)2018-08-28 04:59:00 Test Item Value Reference Range Comments WHITE BLOOD CELL COUNT (BEAKER) (test zpux=633) 5.0 K/ L 3.5-10.5 RED BLOOD CELL COUNT (BEAKER) (test gebe=448) 2.12 M/ L 4.63-6.08 HEMOGLOBIN (BEAKER) (test jopb=860) 7.1 GM/DL 13.7-17.5 HEMATOCRIT (BEAKER) (test aanx=626) 23.0 % 40.1-51.0 MEAN CORPUSCULAR VOLUME (BEAKER) (test cioi=765) 108.5 fL 79.0-92.2 MEAN CORPUSCULAR HEMOGLOBIN (BEAKER) (test 33.5 pg 25.7-32.2 qbau=993) MEAN CORPUSCULAR HEMOGLOBIN CONC (BEAKER) (test 30.9 GM/DL 32.3-36.5 qzgi=060) RED CELL DISTRIBUTION WIDTH (BEAKER) (test 16.4 % 11.6-14.4 vpqi=968) PLATELET COUNT (BEAKER) (test ihtv=727) 107 K/CU MM 150-450 MEAN PLATELET VOLUME (BEAKER) (test hwci=831) 10.9 fL 9.4-12.4 NUCLEATED RED BLOOD CELLS (BEAKER) (test 0 /100 WBC 0-0 ewhz=038) POCT-GLUCOSE [id number] 00:55:00 Test Item Value Reference Range Comments POC-GLUCOSE METER (BEAKER) 211 mg/dL 70-110 TESTED AT [address] (test drmu=9337) [facility] [address] POCT-GLUCOSE [id number] 21:29:00 Test Item Value Reference Range Comments POC-GLUCOSE METER (BEAKER) 220 mg/dL 70-110 TESTED AT [address] (test ijlj=2331) [facility] [address] POCT-GLUCOSE [id number] 18:15:00 Test Item Value Reference Range Comments POC-GLUCOSE METER (BEAKER) 200 mg/dL 70-110 TESTED AT [address] (test fnfe=5016) [facility] [address] POCT-GLUCOSE [id number] 11:57:00 Test Item Value Reference Range Comments POC-GLUCOSE METER (BEAKER) 238 mg/dL 70-110 TESTED AT [address] (test lyhd=4655) [facility] [address] HEMOGLOBIN AND [id number] 08:02:00 Test Item Value Reference Range Comments HEMOGLOBIN (BEAKER) (test qtqa=424) 7.3 GM/DL 13.7-17.5 HEMATOCRIT (BEAKER) (test nabc=431) 23.2 % 40.1-51.0 [id number] 06:37:00 Test Item Value Reference Range Comments MAGNESIUM (BEAKER) (test tanz=971) 2.6 mg/dL 1.6-2.6 BASIC METABOLIC [id number] 06:37:00 Test Item Value Reference Range Comments SODIUM (BEAKER) (test 147 meq/L 136-145 qfyq=737) POTASSIUM (BEAKER) (test 4.2 meq/L 3.5-5.1 wklm=298) CHLORIDE (BEAKER) (test 117 meq/L 98-107 llhj=474) CO2 (BEAKER) (test 26 meq/L 22-29 glvz=088) BLOOD UREA NITROGEN 37 mg/dL 7-21 (BEAKER) (test weop=393) CREATININE (BEAKER) (test 1.18 mg/dL 0.57-1.25 hudd=296) GLUCOSE RANDOM (BEAKER) 146 mg/dL 70-105 (test bazu=020) CALCIUM (BEAKER) (test 8.4 mg/dL 8.4-10.2 llcj=801) EGFR (BEAKER) (test 58 mL/min/1.73 sq m ESTIMATED GFR IS NOT gedy=6510) ACCURATE CREATININE CLEARANCE IN PREDICTING GLOMERULAR FILTRATION RATE. ESTIMATED GFR IS NOT APPLICABLE FOR DIALYSIS PATIENTS. Specimen slightly ictericPOCT-GLUCOSE [id number] 06:24:00 Test Item Value Reference Range Comments POC-GLUCOSE METER (BEAKER) 160 mg/dL 70-110 TESTED AT [address] (test jtlr=0140) [place] [id number] PROTHROMBIN [id number] 05:49:00 Test Item Value Reference Range Comments PROTIME (BEAKER) (test peht=827) 15.1 seconds 11.9-14.2 INR (BEAKER) (test bmux=990) 1.2 <=5.9 Effective 07/28/2018: PT Reference Range ChangeNew: 11.9-14.2 Previous: 11.7- 14.7RECOMMENDED COUMADIN/WARFARIN INR THERAPY RANGESSTANDARD DOSE: 2.0-3.0 Includes: PROPHYLAXIS for venous thrombosis, systemic embolization; TREATMENT for venous thrombosis and/or pulmonary embolus.HIGH RISK: Target INR is2.5-3.5 for patients wiht mechanical heart valves.POCT-GLUCOSE [id number] 18:38:00 Test Item Value Reference Range Comments POC-GLUCOSE METER (BEAKER) 196 mg/dL 70-110 TESTED AT [address] (test lwnf=7646) [place] [id number] POCT-GLUCOSE [id number] 13:58:00 Test Item Value Reference Range Comments POC-GLUCOSE METER (BEAKER) 244 mg/dL 70-110 TESTED AT [address] (test vxzb=8065) [place] [address] [id number] 07:56:00 Test Item Value Reference Range Comments PHOSPHORUS (BEAKER) (test vciz=985) 2.2 mg/dL 2.3-4.7 POCT-GLUCOSE [id number] 06:22:00 Test Item Value Reference Range Comments POC-GLUCOSE METER (BEAKER) 179 mg/dL 70-110 TESTED AT [address] (test xofq=7409) [place] [id number] POCT-GLUCOSE [id number] 05:10:00 Test Item Value Reference Range Comments POC-GLUCOSE METER (BEAKER) 249 mg/dL 70-110 TESTED AT [facility] [address] (test tlge=1075) [facility] [address] [id number] 04:08:00 Test Item Value Reference Range Comments MAGNESIUM (BEAKER) (test bpbb=355) 2.7 mg/dL 1.6-2.6 BASIC METABOLIC [id number] 04:08:00 Test Item Value Reference Range Comments SODIUM (BEAKER) (test 148 meq/L 136-145 timw=805) POTASSIUM (BEAKER) (test 3.8 meq/L 3.5-5.1 jqdd=666) CHLORIDE (BEAKER) (test 119 meq/L 98-107 czig=880) CO2 (BEAKER) (test 23 meq/L 22-29 bieq=454) BLOOD UREA NITROGEN 25 mg/dL 7-21 (BEAKER) (test izrc=770) CREATININE (BEAKER) (test 0.86 mg/dL 0.57-1.25 hdrl=514) GLUCOSE RANDOM (BEAKER) 176 mg/dL 70-105 (test kzjz=829) CALCIUM (BEAKER) (test 9.0 mg/dL 8.4-10.2 whoy=296) EGFR (BEAKER) (test 84 mL/min/1.73 sq m ESTIMATED GFR IS NOT javk=4679) ACCURATE CREATININE CLEARANCE IN PREDICTING GLOMERULAR FILTRATION RATE. ESTIMATED GFR IS NOT APPLICABLE FOR DIALYSIS PATIENTS. PROTHROMBIN [id number] 03:49:00 Test Item Value Reference Range Comments PROTIME (BEAKER) (test ichv=700) 16.0 seconds 11.9-14.2 INR (BEAKER) (test fspn=295) 1.4 <=5.9 Effective 07/28/2018: PT Reference Range ChangeNew: 11.9-14.2 Previous: 11.7- 14.7RECOMMENDED COUMADIN/WARFARIN INR THERAPY RANGESSTANDARD DOSE: 2.0-3.0 Includes: PROPHYLAXIS for venous thrombosis, systemic embolization; TREATMENT for venous thrombosis and/or pulmonary embolus.HIGH RISK: Target INR is2.5-3.5 for patients wiht mechanical heart valves.CBC W/PLT COUNT & AUTO [id number] 03:49:00 Test Item Value Reference Range Comments WHITE BLOOD CELL COUNT (BEAKER) (test moxr=237) 6.3 K/ L 3.5-10.5 RED BLOOD CELL COUNT (BEAKER) (test wejo=540) 2.18 M/ L 4.63-6.08 HEMOGLOBIN (BEAKER) (test tssb=310) 7.2 GM/DL 13.7-17.5 HEMATOCRIT (BEAKER) (test vssr=631) 22.6 % 40.1-51.0 MEAN CORPUSCULAR VOLUME (BEAKER) (test iojo=727) 103.7 fL 79.0-92.2 MEAN CORPUSCULAR HEMOGLOBIN (BEAKER) (test 33.0 pg 25.7-32.2 yyna=891) MEAN CORPUSCULAR HEMOGLOBIN CONC (BEAKER) (test 31.9 GM/DL 32.3-36.5 ffdo=104) RED CELL DISTRIBUTION WIDTH (BEAKER) (test 17.0 % 11.6-14.4 emcj=765) PLATELET COUNT (BEAKER) (test iten=906) 81 K/CU MM 150-450 MEAN PLATELET VOLUME (BEAKER) (test qihr=848) 10.7 fL 9.4-12.4 NUCLEATED RED BLOOD CELLS (BEAKER) (test 0 /100 WBC 0-0 nzfi=675) NEUTROPHILS RELATIVE PERCENT (BEAKER) (test 72 % vstt=267) LYMPHOCYTES RELATIVE PERCENT (BEAKER) (test 10 % cyte=975) MONOCYTES RELATIVE PERCENT (BEAKER) (test 11 % yvsu=173) EOSINOPHILS RELATIVE PERCENT (BEAKER) (test 7 % owxe=619) BASOPHILS RELATIVE PERCENT (BEAKER) (test 0 % jueb=190) NEUTROPHILS ABSOLUTE COUNT (BEAKER) (test 4.48 K/ L 1.78-5.38 stld=367) LYMPHOCYTES ABSOLUTE COUNT (BEAKER) (test 0.64 K/ L 1.32-3.57 cxch=330) MONOCYTES ABSOLUTE COUNT (BEAKER) (test zppk=193) 0.67 K/ L 0.30-0.82 EOSINOPHILS ABSOLUTE COUNT (BEAKER) (test 0.44 K/ L 0.04-0.54 ulzp=952) BASOPHILS ABSOLUTE COUNT (BEAKER) (test vhar=489) 0.02 K/ L 0.01-0.08 IMMATURE GRANULOCYTES-RELATIVE PERCENT (BEAKER) 0 % 0-1 (test vhon=0577) POCT-GLUCOSE [id number] 00:22:00 Test Item Value Reference Range Comments POC-GLUCOSE METER (BEAKER) 214 mg/dL 70-110 TESTED AT [address] (test ystq=7137) [place] [id number] POCT-GLUCOSE [id number] 17:37:00 Test Item Value Reference Range Comments POC-GLUCOSE METER (BEAKER) 164 mg/dL 70-110 TESTED AT [address] (test comz=0851) [facility] [address] CBC W/PLT COUNT & AUTO [id number] 15:32:00 Test Item Value Reference Range Comments WHITE BLOOD CELL COUNT (BEAKER) (test hhet=219) 6.5 K/ L 3.5-10.5 RED BLOOD CELL COUNT (BEAKER) (test crqq=034) 2.37 M/ L 4.63-6.08 HEMOGLOBIN (BEAKER) (test mdap=224) 7.9 GM/DL 13.7-17.5 HEMATOCRIT (BEAKER) (test vxqa=181) 24.5 % 40.1-51.0 MEAN CORPUSCULAR VOLUME (BEAKER) (test qstt=177) 103.4 fL 79.0-92.2 MEAN CORPUSCULAR HEMOGLOBIN (BEAKER) (test 33.3 pg 25.7-32.2 nvjd=554) MEAN CORPUSCULAR HEMOGLOBIN CONC (BEAKER) (test 32.2 GM/DL 32.3-36.5 fsvk=346) RED CELL DISTRIBUTION WIDTH (BEAKER) (test 16.2 % 11.6-14.4 ldre=300) PLATELET COUNT (BEAKER) (test xlxe=801) 88 K/CU MM 150-450 MEAN PLATELET VOLUME (BEAKER) (test ytrh=769) 10.6 fL 9.4-12.4 NUCLEATED RED BLOOD CELLS (BEAKER) (test 0 /100 WBC 0-0 ubsc=636) NEUTROPHILS RELATIVE PERCENT (BEAKER) (test 73 % qmry=603) LYMPHOCYTES RELATIVE PERCENT (BEAKER) (test 9 % wlqt=602) MONOCYTES RELATIVE PERCENT (BEAKER) (test 14 % bwsh=998) EOSINOPHILS RELATIVE PERCENT (BEAKER) (test 3 % bopu=134) BASOPHILS RELATIVE PERCENT (BEAKER) (test 0 % wxtc=695) NEUTROPHILS ABSOLUTE COUNT (BEAKER) (test 4.78 K/ L 1.78-5.38 pvsi=267) LYMPHOCYTES ABSOLUTE COUNT (BEAKER) (test 0.61 K/ L 1.32-3.57 tpnz=127) MONOCYTES ABSOLUTE COUNT (BEAKER) (test tzkv=654) 0.93 K/ L 0.30-0.82 EOSINOPHILS ABSOLUTE COUNT (BEAKER) (test 0.18 K/ L 0.04-0.54 wuxl=764) BASOPHILS ABSOLUTE COUNT (BEAKER) (test qobc=583) 0.02 K/ L 0.01-0.08 IMMATURE GRANULOCYTES-RELATIVE PERCENT (BEAKER) 0 % 0-1 (test nxyt=2417) EEG AWAKE/ASLEEP AND [id number] 14:46:00Reason for exam:->continued decreased responsivenessShould this be performed at the bedside?->YesDate(s) of EE08/25/2018DATE OF REPORT: 08/25/2018ACC:[id number] Number: [id number] Location: Inpatient ICUStart time:09:45 amStop time:10:06 amICD-10: R56.9 Unspecified ConvulsionsCPT Code: 70093 EEG HISTORY: 88 y.o. 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 MEDICATION THAT CAN AFFECT EEG: None TECHNICAL SUMMARY: This is a digital video-EEGrecorded with 32 input channels reviewed with bipolar and referential montages using the modified combinatorial system nomenclature. DESCRIPTION OF RECORD: The EEG background consists of moderate amplitude, diffuse admixtures of much 1.5-3 Hz semi-rhythmic delta, 4-6 Hz theta , as well as some faster activity. Neither an occipital dominant rhythm nor a frequency amplitude gradient is present. However, spontaneous variability of the background is evident. Additionally, frequent broad-based, generalized periodic discharges are seen, maximal bifrontal regions, with a diphasic or triphasic morphology occurring at 1-2 Hz (GPD with triphasic morphology). State changes are present. Sleep architectures are not present in this study. SIGNIFICANT VIDEO EVENTS: None SIGNIFICANT ELECTROCARDIOGRAM EVENTS: None HV: Hyperventilation was not performed. PHOTIC STIMULATION: Photic stimulation was done from 1-33Hz; no photic driving was seen; photoparoxysmal responses were absent. IMPRESSION: Abnormal EEG dueto: 1) Generalized periodic discharges with a triphasic morphology (GPDs with triphasic morphology)2) Continuous slow, generalized CLINICAL CORRELATION: This EEG study demonstrates a moderate encephalopathy. Generalized periodic discharges with triphasic morphology are a nonspecific marker of acute cortical irritability, typically seen in the setting of toxic/metabolic/infectious disturbances, in particular liver dysfunction. There are no electrographic seizures in this study. Henri Yañez MDNeurophysiology Fellow Onur Leiva MD, MSClinical Neurophysiology/ Epilepsy Attending Electronically signed by: ONUR LEIVA MD on 2018 02:46 PMPOCT-GLUCOSE [id number] 12:43:00 Test Item Value Reference Range Comments POC-GLUCOSE METER (BEAKER) 221 mg/dL 70-110 TESTED AT [address] (test rsrj=5530) [place] [address] RAD, CHEST, 1 VIEW, NON [id number] 11:00:00Reason for exam:-> hemoptysisShould this be performed at the bedside?->YesFINAL REPORT CLINICAL HISTORY: hemoptysis TECHNIQUE: 1 view of the chest. COMPARISON: 08/25/2018 IMPRESSION: The ETT projects approximately 2 cm above the pedro pablo. The tip of the nasogastric tube is in the gastric fundus, with the sidehole at the gastroesophageal junction. Pulmonary vascular congestive findings are similar appearing. The cardiomediastinal silhouette is magnifiedby technique with sternotomy wires. Signed: Partha Abreu MDReport Verified Date/ Time: 08/25/2018 11:00:37 Reading Location: [facility] Radiology Reading Room POCT-GLUCOSE [id number] 06:39:00 Test Item Value Reference Range Comments POC-GLUCOSE METER (BEAKER) 202 mg/dL 70-110 TESTED AT [address] (test xmwy=5059) [place] [address] BLOOD GAS, [id number] 05:13:00 Test Item Value Reference Range Comments PH ARTERIAL (BEAKER) (test ubcv=918) 7.59 7.35-7.45 PCO2 ARTERIAL (BEAKER) (test osjg=492) 25 mmHg 35-45 PO2 ARTERIAL (BEAKER) (test zllo=349) 148 mmHg 80-90 O2 SATURATION ARTERIAL (BEAKER) (test binx=013) 99.2 % 96.0-97.0 HCO3 ARTERIAL (BEAKER) (test dwjf=097) 24 mmol/L 21-29 BASE EXCESS ARTERIAL (BEAKER) (test cdpg=285) 2.0 mmol/L -2.0-3.0 PATIENT TEMPERATURE (BEAKER) (test wthr=3585) 37.4 C FIO2 (BEAKER) (test bmap=6278) 24.0 % BASIC METABOLIC [id number] 05:10:00 Test Item Value Reference Range Comments SODIUM (BEAKER) (test 143 meq/L 136-145 qazs=643) POTASSIUM (BEAKER) (test 3.9 meq/L 3.5-5.1 bjed=331) CHLORIDE (BEAKER) (test 115 meq/L 98-107 rbmt=107) CO2 (BEAKER) (test 23 meq/L 22-29 azpj=068) BLOOD UREA NITROGEN 27 mg/dL 7-21 (BEAKER) (test murd=973) CREATININE (BEAKER) (test 1.02 mg/dL 0.57-1.25 ftcd=572) GLUCOSE RANDOM (BEAKER) 220 mg/dL 70-105 (test ebxs=176) CALCIUM (BEAKER) (test 8.8 mg/dL 8.4-10.2 daxd=211) EGFR (BEAKER) (test 69 mL/min/1.73 sq m ESTIMATED GFR IS NOT hvpv=2075) ACCURATE CREATININE CLEARANCE IN PREDICTING GLOMERULAR FILTRATION RATE. ESTIMATED GFR IS NOT APPLICABLE FOR DIALYSIS PATIENTS. Specimen slightly ictericPROTHROMBIN [id number] 05:07:00 Test Item Value Reference Range Comments PROTIME (BEAKER) (test puxv=481) 15.6 seconds 11.9-14.2 INR (BEAKER) (test robz=953) 1.3 <=5.9 Effective 07/28/2018: PT Reference Range ChangeNew: 11.9-14.2 Previous: 11.7- 14.7RECOMMENDED COUMADIN/WARFARIN INR THERAPY RANGESSTANDARD DOSE: 2.0-3.0 Includes: PROPHYLAXIS for venous thrombosis, systemic embolization; TREATMENT for venous thrombosis and/or pulmonary embolus.HIGH RISK: Target INR is2.5-3.5 for patients wiht mechanical heart valves.CBC W/PLT COUNT & AUTO [id number] 04:52:00 Test Item Value Reference Range Comments WHITE BLOOD CELL COUNT (BEAKER) (test mkjs=236) 5.4 K/ L 3.5-10.5 RED BLOOD CELL COUNT (BEAKER) (test dbfw=350) 2.02 M/ L 4.63-6.08 HEMOGLOBIN (BEAKER) (test keqi=430) 6.7 GM/DL 13.7-17.5 HEMATOCRIT (BEAKER) (test nfnh=398) 21.2 % 40.1-51.0 MEAN CORPUSCULAR VOLUME (BEAKER) (test kgtr=550) 105.0 fL 79.0-92.2 MEAN CORPUSCULAR HEMOGLOBIN (BEAKER) (test 33.2 pg 25.7-32.2 owou=625) MEAN CORPUSCULAR HEMOGLOBIN CONC (BEAKER) (test 31.6 GM/DL 32.3-36.5 atfl=528) RED CELL DISTRIBUTION WIDTH (BEAKER) (test 15.6 % 11.6-14.4 ikqk=744) PLATELET COUNT (BEAKER) (test qtwo=951) 91 K/CU MM 150-450 MEAN PLATELET VOLUME (BEAKER) (test qsbq=393) 10.5 fL 9.4-12.4 NUCLEATED RED BLOOD CELLS (BEAKER) (test 0 /100 WBC 0-0 dvxd=633) NEUTROPHILS RELATIVE PERCENT (BEAKER) (test 71 % ofvg=838) LYMPHOCYTES RELATIVE PERCENT (BEAKER) (test 11 % rtvv=745) MONOCYTES RELATIVE PERCENT (BEAKER) (test 15 % nyfh=949) EOSINOPHILS RELATIVE PERCENT (BEAKER) (test 1 % euqo=312) BASOPHILS RELATIVE PERCENT (BEAKER) (test 0 % kxub=535) NEUTROPHILS ABSOLUTE COUNT (BEAKER) (test 3.88 K/ L 1.78-5.38 iwsu=276) LYMPHOCYTES ABSOLUTE COUNT (BEAKER) (test 0.60 K/ L 1.32-3.57 hnbl=917) MONOCYTES ABSOLUTE COUNT (BEAKER) (test aqvk=599) 0.83 K/ L 0.30-0.82 EOSINOPHILS ABSOLUTE COUNT (BEAKER) (test 0.07 K/ L 0.04-0.54 hzkg=996) BASOPHILS ABSOLUTE COUNT (BEAKER) (test lsms=483) 0.02 K/ L 0.01-0.08 IMMATURE GRANULOCYTES-RELATIVE PERCENT (BEAKER) 1 % 0-1 (test dxwg=2512) RAD, CHEST, 1 VIEW, NON [id number] 04:28:00Reason for exam:-> intubatedShould this be performed at the bedside?->YesFINAL REPORT CLINICAL INDICATION: Support lines. Comparison: 08/24/2018 The cardiomediastinal contours are stable. Central pulmonary vascular congestion and bilateral parenchymalopacities are similar to previous. There is no pneumothorax. Support lines are stable. Signed: Dawson Barron Verified Date/Time: 08/25/2018 04:28:55 Reading Location: [address] Reading Room POCT-GLUCOSE [id number] 00:29:00 Test Item Value Reference Range Comments POC-GLUCOSE METER (BEAKER) 258 mg/dL 70-110 TESTED AT [address] (test oczk=1437) [facility] [address] POCT-GLUCOSE [id number] 18:26:00 Test Item Value Reference Range Comments POC-GLUCOSE METER (BEAKER) 293 mg/dL 70-110 TESTED AT [address] (test xsyd=7626) [facility] [address] BLOOD GAS, [id number] 15:38:00 Test Item Value Reference Range Comments PH ARTERIAL (BEAKER) (test jhdp=959) 7.48 7.35-7.45 PCO2 ARTERIAL (BEAKER) (test gslb=477) 33 mmHg 35-45 PO2 ARTERIAL (BEAKER) (test trwx=231) 121 mmHg 80-90 O2 SATURATION ARTERIAL (BEAKER) (test gykt=089) 98.5 % 96.0-97.0 HCO3 ARTERIAL (BEAKER) (test prcm=128) 24 mmol/L 21-29 BASE EXCESS ARTERIAL (BEAKER) (test svig=465) 0.4 mmol/L -2.0-3.0 PATIENT TEMPERATURE (BEAKER) (test zfqq=9830) 38.0 C FIO2 (BEAKER) (test akkp=0853) 30.0 % BLOOD GAS, [id number] 14:57:00 Test Item Value Reference Range Comments PH ARTERIAL (BEAKER) (test pmzy=835) 7.48 7.35-7.45 PCO2 ARTERIAL (BEAKER) (test uloz=800) 33 mmHg 35-45 PO2 ARTERIAL (BEAKER) (test njym=995) 129 mmHg 80-90 O2 SATURATION ARTERIAL (BEAKER) (test egse=207) 98.8 % 96.0-97.0 HCO3 ARTERIAL (BEAKER) (test vjdd=788) 24 mmol/L 21-29 BASE EXCESS ARTERIAL (BEAKER) (test bbhv=319) 0.5 mmol/L -2.0-3.0 PATIENT TEMPERATURE (BEAKER) (test oxgf=8571) 37.5 C FIO2 (BEAKER) (test zrht=6457) 24.0 % BASIC METABOLIC [id number] 14:47:00 Test Item Value Reference Range Comments SODIUM (BEAKER) (test 147 meq/L 136-145 tvwn=186) POTASSIUM (BEAKER) (test 3.8 meq/L 3.5-5.1 lpry=936) CHLORIDE (BEAKER) (test 116 meq/L 98-107 inxb=372) CO2 (BEAKER) (test 24 meq/L 22-29 ufjq=614) BLOOD UREA NITROGEN 30 mg/dL 7-21 (BEAKER) (test mitr=950) CREATININE (BEAKER) (test 1.14 mg/dL 0.57-1.25 myfk=758) GLUCOSE RANDOM (BEAKER) 245 mg/dL 70-105 (test xgdx=590) CALCIUM (BEAKER) (test 9.1 mg/dL 8.4-10.2 xmxv=227) EGFR (BEAKER) (test 61 mL/min/1.73 sq m ESTIMATED GFR IS NOT ovfp=8587) ACCURATE CREATININE CLEARANCE IN PREDICTING GLOMERULAR FILTRATION RATE. ESTIMATED GFR IS NOT APPLICABLE FOR DIALYSIS PATIENTS. [id number] 14:47:00 Test Item Value Reference Range Comments MAGNESIUM (BEAKER) (test mkec=387) 2.2 mg/dL 1.6-2.6 [id number] 14:47:00 Test Item Value Reference Range Comments PHOSPHORUS (BEAKER) (test ogwm=543) 1.9 mg/dL 2.3-4.7 CBC W/PLT COUNT & AUTO [id number] 14:12:00 Test Item Value Reference Range Comments WHITE BLOOD CELL COUNT (BEAKER) (test cjjf=798) 6.4 K/ L 3.5-10.5 RED BLOOD CELL COUNT (BEAKER) (test pybc=707) 2.23 M/ L 4.63-6.08 HEMOGLOBIN (BEAKER) (test nvwq=369) 7.4 GM/DL 13.7-17.5 HEMATOCRIT (BEAKER) (test cxtv=358) 23.2 % 40.1-51.0 MEAN CORPUSCULAR VOLUME (BEAKER) (test baib=096) 104.0 fL 79.0-92.2 MEAN CORPUSCULAR HEMOGLOBIN (BEAKER) (test 33.2 pg 25.7-32.2 etpy=032) MEAN CORPUSCULAR HEMOGLOBIN CONC (BEAKER) (test 31.9 GM/DL 32.3-36.5 kmrq=457) RED CELL DISTRIBUTION WIDTH (BEAKER) (test 15.5 % 11.6-14.4 qqby=064) PLATELET COUNT (BEAKER) (test ofvd=414) 113 K/CU MM 150-450 MEAN PLATELET VOLUME (BEAKER) (test mkmh=016) 10.8 fL 9.4-12.4 NUCLEATED RED BLOOD CELLS (BEAKER) (test 0 /100 WBC 0-0 rzec=872) NEUTROPHILS RELATIVE PERCENT (BEAKER) (test 74 % yqua=269) LYMPHOCYTES RELATIVE PERCENT (BEAKER) (test 10 % xiju=110) MONOCYTES RELATIVE PERCENT (BEAKER) (test 15 % oxwv=381) EOSINOPHILS RELATIVE PERCENT (BEAKER) (test 0 % uehu=216) BASOPHILS RELATIVE PERCENT (BEAKER) (test 0 % funp=246) NEUTROPHILS ABSOLUTE COUNT (BEAKER) (test 4.71 K/ L 1.78-5.38 pskx=377) LYMPHOCYTES ABSOLUTE COUNT (BEAKER) (test 0.66 K/ L 1.32-3.57 vkcm=375) MONOCYTES ABSOLUTE COUNT (BEAKER) (test 0.94 K/ L 0.30-0.82 logr=812) EOSINOPHILS ABSOLUTE COUNT (BEAKER) (test 0.01 K/ L 0.04-0.54 balk=194) BASOPHILS ABSOLUTE COUNT (BEAKER) (test 0.02 K/ L 0.01-0.08 cnmi=928) IMMATURE GRANULOCYTES-RELATIVE PERCENT (BEAKER) 0 % 0-1 (test gxxg=7849) CALCIUM, [id number] 13:35:00 Test Item Value Reference Range Comments CALCIUM IONIZED (BEAKER) (test vcyt=007) 1.16 mmol/L 1.12-1.27 PH, BLOOD (BEAKER) (test qalh=7601) 7.49 TROPONIN [id number] 13:08:00 Test Item Value Reference Range Comments TROPONIN I (BEAKER) (test yldm=704) 0.07 ng/mL 0.00-0.03 Troponin I (TnI) levels [...] failure, acidosis, acute neurological disease, and persistent tachyarrhythmia.POCT-GLUCOSE [id number] 12:10:00 Test Item Value Reference Range Comments POC-GLUCOSE METER (BEAKER) 258 mg/dL 70-110 TESTED AT [address] (test albd=2322) [place] [address] POCT-GLUCOSE [id number] 06:22:00 Test Item Value Reference Range Comments POC-GLUCOSE METER (BEAKER) 215 mg/dL 70-110 TESTED AT [address] (test tsdn=5829) [facility] [address] BLOOD GAS, [id number] 06:06:00 Test Item Value Reference Range Comments PH ARTERIAL (BEAKER) (test ifji=511) 7.53 7.35-7.45 PCO2 ARTERIAL (BEAKER) (test ockb=707) 29 mmHg 35-45 PO2 ARTERIAL (BEAKER) (test ccqd=875) 88 mmHg 80-90 O2 SATURATION ARTERIAL (BEAKER) (test eecg=378) 97.6 % 96.0-97.0 HCO3 ARTERIAL (BEAKER) (test mteg=878) 24 mmol/L 21-29 BASE EXCESS ARTERIAL (BEAKER) (test etil=917) 2.4 mmol/L -2.0-3.0 PATIENT TEMPERATURE (BEAKER) (test yowy=9745) 37.2 C FIO2 (BEAKER) (test cdro=3189) 24.0 % BASIC METABOLIC [id number] 05:50:00 Test Item Value Reference Range Comments SODIUM (BEAKER) (test 144 meq/L 136-145 tqki=274) POTASSIUM (BEAKER) (test 3.4 meq/L 3.5-5.1 pzmi=250) CHLORIDE (BEAKER) (test 111 meq/L 98-107 hvga=245) CO2 (BEAKER) (test 25 meq/L 22-29 vhbu=986) BLOOD UREA NITROGEN 31 mg/dL 7-21 (BEAKER) (test djjx=755) CREATININE (BEAKER) (test 1.10 mg/dL 0.57-1.25 vpvf=549) GLUCOSE RANDOM (BEAKER) 206 mg/dL 70-105 (test xxtw=588) CALCIUM (BEAKER) (test 8.7 mg/dL 8.4-10.2 uwzr=105) EGFR (BEAKER) (test 63 mL/min/1.73 sq m ESTIMATED GFR IS NOT cslj=1068) ACCURATE CREATININE CLEARANCE IN PREDICTING GLOMERULAR FILTRATION RATE. ESTIMATED GFR IS NOT APPLICABLE FOR DIALYSIS PATIENTS. Specimen slightly ictericCBC W/PLT COUNT & AUTO [id number] 05:49 :00 Test Item Value Reference Range Comments WHITE BLOOD CELL COUNT (BEAKER) (test vgbl=949) 5.1 K/ L 3.5-10.5 RED BLOOD CELL COUNT (BEAKER) (test hjsn=911) 2.27 M/ L 4.63-6.08 HEMOGLOBIN (BEAKER) (test ufpu=567) 7.7 GM/DL 13.7-17.5 HEMATOCRIT (BEAKER) (test thej=721) 23.8 % 40.1-51.0 MEAN CORPUSCULAR VOLUME (BEAKER) (test xsoz=005) 104.8 fL 79.0-92.2 MEAN CORPUSCULAR HEMOGLOBIN (BEAKER) (test 33.9 pg 25.7-32.2 tshf=740) MEAN CORPUSCULAR HEMOGLOBIN CONC (BEAKER) (test 32.4 GM/DL 32.3-36.5 fxqi=954) RED CELL DISTRIBUTION WIDTH (BEAKER) (test 15.4 % 11.6-14.4 sfbh=362) PLATELET COUNT (BEAKER) (test owsr=425) 87 K/CU MM 150-450 MEAN PLATELET VOLUME (BEAKER) (test oddp=101) 10.3 fL 9.4-12.4 NUCLEATED RED BLOOD CELLS (BEAKER) (test 0 /100 WBC 0-0 fddu=370) NEUTROPHILS RELATIVE PERCENT (BEAKER) (test 68 % mmbf=058) LYMPHOCYTES RELATIVE PERCENT (BEAKER) (test 18 % sapp=824) MONOCYTES RELATIVE PERCENT (BEAKER) (test 14 % mwhe=331) EOSINOPHILS RELATIVE PERCENT (BEAKER) (test 1 % jzjd=057) BASOPHILS RELATIVE PERCENT (BEAKER) (test 0 % vywr=972) NEUTROPHILS ABSOLUTE COUNT (BEAKER) (test 3.42 K/ L 1.78-5.38 ptpj=819) LYMPHOCYTES ABSOLUTE COUNT (BEAKER) (test 0.89 K/ L 1.32-3.57 jllk=766) MONOCYTES ABSOLUTE COUNT (BEAKER) (test nhuj=527) 0.69 K/ L 0.30-0.82 EOSINOPHILS ABSOLUTE COUNT (BEAKER) (test 0.04 K/ L 0.04-0.54 rryu=470) BASOPHILS ABSOLUTE COUNT (BEAKER) (test ujrw=641) 0.01 K/ L 0.01-0.08 IMMATURE GRANULOCYTES-RELATIVE PERCENT (BEAKER) 0 % 0-1 (test vsmw=2893) PROTHROMBIN TIME/[id number] 05:34:00 Test Item Value Reference Range Comments PROTIME (BEAKER) (test iyit=767) 17.0 seconds 11.9-14.2 INR (BEAKER) (test zynu=926) 1.5 <=5.9 Effective 07/28/2018: PT Reference Range ChangeNew: 11.9-14.2 Previous: 11.7- 14.7RECOMMENDED COUMADIN/WARFARIN INR THERAPY RANGESSTANDARD DOSE: 2.0-3.0 Includes: PROPHYLAXIS for venous thrombosis, systemic embolization; TREATMENT for venous thrombosis and/or pulmonary embolus.HIGH RISK: Target INR is2.5-3.5 for patients wiht mechanical heart valves.HEMOGLOBIN AND [id number] 05 :30:00 Test Item Value Reference Range Comments HEMOGLOBIN (BEAKER) (test rxqg=304) 7.7 GM/DL 13.7-17.5 HEMATOCRIT (BEAKER) (test iszw=191) 23.8 % 40.1-51.0 RAD, CHEST, 1 VIEW, NON [id number] 04:20:00Reason for exam:-> intubatedShould this be performed at the bedside?->YesFINAL REPORT CLINICAL INDICATION: Support lines. Comparison: 08/23/2018 The right costophrenic sulcus is excluded. The cardiomediastinal contours are stable. Central pulmonary vascular congestion and bilateral parenchymal and left pleural opacities are similar to previous. Thereis no pneumothorax. Support lines are stable. Signed: Dawson Barron MDReport Verified Date/Time: 04:20:37 Reading Location: [address] Reading Room HEMOGLOBIN AND [id number] 00:40:00 Test Item Value Reference Range Comments HEMOGLOBIN (BEAKER) (test uihp=832) 7.8 GM/DL 13.7-17.5 HEMATOCRIT (BEAKER) (test lsla=557) 24.2 % 40.1-51.0 POCT-GLUCOSE [id number] 00:30:00 Test Item Value Reference Range Comments POC-GLUCOSE METER (BEAKER) 192 mg/dL 70-110 TESTED AT [address] (test cwkx=2128) [facility] [address] POCT-GLUCOSE [id number] 17:25:00 Test Item Value Reference Range Comments POC-GLUCOSE METER (BEAKER) 199 mg/dL 70-110 TESTED AT [address] (test rwyq=8911) [facility] [address] HEMOGLOBIN AND [id number] 15:58:00 Test Item Value Reference Range Comments HEMOGLOBIN (BEAKER) (test aazq=927) 7.6 GM/DL 13.7-17.5 HEMATOCRIT (BEAKER) (test rbxf=505) 23.1 % 40.1-51.0 POCT-GLUCOSE [id number] 13:05:00 Test Item Value Reference Range Comments POC-GLUCOSE METER (BEAKER) 196 mg/dL 70-110 TESTED AT [facility] [address] (test qsbq=8279) [facility] [address] TROPONIN [id number] 10:06:00 Test Item Value Reference Range Comments TROPONIN I (BEAKER) (test awji=151) 0.08 ng/mL 0.00-0.03 Troponin I (TnI) levels [...] failure, acidosis, acute neurological disease, and persistent tachyarrhythmia.CBC W/PLT COUNT & AUTO [id number] 09:30:00 Test Item Value Reference Range Comments WHITE BLOOD CELL COUNT (BEAKER) (test zpjr=972) 5.4 K/ L 3.5-10.5 RED BLOOD CELL COUNT (BEAKER) (test gbqn=565) 2.33 M/ L 4.63-6.08 HEMOGLOBIN (BEAKER) (test ppfk=621) 7.8 GM/DL 13.7-17.5 HEMATOCRIT (BEAKER) (test cwkh=824) 23.8 % 40.1-51.0 MEAN CORPUSCULAR VOLUME (BEAKER) (test laeu=217) 102.1 fL 79.0-92.2 MEAN CORPUSCULAR HEMOGLOBIN (BEAKER) (test 33.5 pg 25.7-32.2 lkty=881) MEAN CORPUSCULAR HEMOGLOBIN CONC (BEAKER) (test 32.8 GM/DL 32.3-36.5 pacm=363) RED CELL DISTRIBUTION WIDTH (BEAKER) (test 15.3 % 11.6-14.4 eyiw=386) PLATELET COUNT (BEAKER) (test pbdp=807) 81 K/CU MM 150-450 MEAN PLATELET VOLUME (BEAKER) (test bcgj=835) 11.3 fL 9.4-12.4 NUCLEATED RED BLOOD CELLS (BEAKER) (test 0 /100 WBC 0-0 jlgt=761) NEUTROPHILS RELATIVE PERCENT (BEAKER) (test 69 % cynj=924) LYMPHOCYTES RELATIVE PERCENT (BEAKER) (test 14 % bxoq=209) MONOCYTES RELATIVE PERCENT (BEAKER) (test 13 % mffy=783) EOSINOPHILS RELATIVE PERCENT (BEAKER) (test 3 % gdzd=340) BASOPHILS RELATIVE PERCENT (BEAKER) (test 0 % mjea=464) NEUTROPHILS ABSOLUTE COUNT (BEAKER) (test 3.76 K/ L 1.78-5.38 qdtw=700) LYMPHOCYTES ABSOLUTE COUNT (BEAKER) (test 0.77 K/ L 1.32-3.57 ryae=022) MONOCYTES ABSOLUTE COUNT (BEAKER) (test tbky=048) 0.70 K/ L 0.30-0.82 EOSINOPHILS ABSOLUTE COUNT (BEAKER) (test 0.17 K/ L 0.04-0.54 wiuu=671) BASOPHILS ABSOLUTE COUNT (BEAKER) (test vqno=117) 0.01 K/ L 0.01-0.08 IMMATURE GRANULOCYTES-RELATIVE PERCENT (BEAKER) 0 % 0-1 (test tuvy=6241) BLOOD GAS, [id number] 09:19:00 Test Item Value Reference Range Comments PH ARTERIAL (BEAKER) (test ictz=170) 7.55 7.35-7.45 PCO2 ARTERIAL (BEAKER) (test pkfi=388) 31 mmHg 35-45 PO2 ARTERIAL (BEAKER) (test kasc=742) 180 mmHg 80-90 O2 SATURATION ARTERIAL (BEAKER) (test etgj=154) 99.4 % 96.0-97.0 HCO3 ARTERIAL (BEAKER) (test ldjr=367) 26 mmol/L 21-29 BASE EXCESS ARTERIAL (BEAKER) (test thnk=321) 4.2 mmol/L -2.0-3.0 PATIENT TEMPERATURE (BEAKER) (test ylqt=1819) 38.0 C FIO2 (BEAKER) (test tlve=9547) 30.0 % BLOOD GAS, [id number] 05:48:00 Test Item Value Reference Range Comments PH ARTERIAL (BEAKER) (test joul=601) 7.58 7.35-7.45 PCO2 ARTERIAL (BEAKER) (test jqxy=038) 28 mmHg 35-45 PO2 ARTERIAL (BEAKER) (test qjqe=827) 215 mmHg 80-90 O2 SATURATION ARTERIAL (BEAKER) (test wuyl=756) 99.6 % 96.0-97.0 HCO3 ARTERIAL (BEAKER) (test bdly=663) 26 mmol/L 21-29 BASE EXCESS ARTERIAL (BEAKER) (test ljos=456) 4.1 mmol/L -2.0-3.0 PATIENT TEMPERATURE (BEAKER) (test dbbr=8263) 37.1 C FIO2 (BEAKER) (test ccgg=9653) 40.0 % RAD, CHEST, 1 VIEW, NON [id number] 04:45:00Reason for exam:-> intubatedShould this be performed at the bedside?->YesFINAL REPORT RAD, CHEST, 1 VIEW, NON DEPT INDICATION: intubated COMPARISON: Prior day's exam FINDINGS: Portable frontal view of the chest. IMPRESSION: Support Lines: Stable. Lungs and pleura: Unchanged airspace and pleural opacities. No pneumothorax.Heart and mediastinum: Stable contours. Stable surgical changes.Additional findings: None. Signed: David Jha MDReportVerified Date/Time: 08/23/2018 04:45:26 BASIC METABOLIC [id number] 04:11:00 Test Item Value Reference Range Comments SODIUM (BEAKER) (test 145 meq/L 136-145 vbqf=099) POTASSIUM (BEAKER) (test 3.6 meq/L 3.5-5.1 Specimen slightly eavy=285) hemolyzed CHLORIDE (BEAKER) (test 110 meq/L 98-107 mgap=215) CO2 (BEAKER) (test 26 meq/L 22-29 boci=357) BLOOD UREA NITROGEN 29 mg/dL 7-21 (BEAKER) (test juwj=470) CREATININE (BEAKER) (test 1.05 mg/dL 0.57-1.25 Specimen slightly vzxu=766) hemolyzed GLUCOSE RANDOM (BEAKER) 155 mg/dL 70-105 (test kxan=398) CALCIUM (BEAKER) (test 9.0 mg/dL 8.4-10.2 zebx=837) EGFR (BEAKER) (test 67 mL/min/1.73 sq m ESTIMATED GFR IS NOT yguj=3953) ACCURATE CREATININE CLEARANCE IN PREDICTING GLOMERULAR FILTRATION RATE. ESTIMATED GFR IS NOT APPLICABLE FOR DIALYSIS PATIENTS. Specimen slightly ictericCT, BRAIN, WITHOUT [id number] 03:59:00FINAL REPORT CT Head without contrast CLINICAL HISTORY: Encephalopathy TECHNIQUE: Contiguous axial images through the head without contrast. This exam was performed according to the departmental dose optimization program which includes automated exposure control, adjustment of the mA and/or kV according to the patient size, and/or use of an iterative reconstruction technique. COMPARISON: CT head dated 03/02/2018. FINDINGS: There is no CT evidence of acute infarct or intracranialhemorrhage. There is periventricular and subcortical white matter hypodensity which is nonspecific but compatible with chronic microvascular ischemic change. There are atherosclerotic calcifications ofthe intracranial circulation. There is generalized parenchymal volume loss without hydrocephalus, midline shift, or apparent mass effect. Basilar cisterns are patent. There are no extra-axial fluid collections. The skull is intact. Polypoid mucosal thickening in the bilateral maxillary and ethmoid sinuses. There is an air-fluid level in the left maxillary sinus which may be related to intubation. Intraorbital contents are unremarkable. Enteric tube seen coursing inferiorly. IMPRESSION: No CT evidence of acute intercranial abnormality. Chronic ischemic and involutional changes as described above.There is an air-fluid level in the left maxillary sinus which may be related to intubation. Howevercorrelate for signs of acute sinusitis. Signed: David Jha MDRepliberty hospital Verified Date/Time: 08/23/2018 03:59:22 TROPONIHenok [id number] 02:22:00 Test Item Value Reference Range Comments TROPONIN I (BEAKER) (test vmyc=874) 0.08 ng/mL 0.00-0.03 Troponin I (TnI) levels [...] failure, acidosis, acute neurological disease, and persistent tachyarrhythmia.CBC W/PLT COUNT & AUTO [id number] 02:06:00 Test Item Value Reference Range Comments WHITE BLOOD CELL COUNT (BEAKER) (test dika=493) 6.1 K/ L 3.5-10.5 RED BLOOD CELL COUNT (BEAKER) (test trax=716) 2.34 M/ L 4.63-6.08 HEMOGLOBIN (BEAKER) (test tmww=307) 8.0 GM/DL 13.7-17.5 HEMATOCRIT (BEAKER) (test aufh=581) 23.9 % 40.1-51.0 MEAN CORPUSCULAR VOLUME (BEAKER) (test qczd=782) 102.1 fL 79.0-92.2 MEAN CORPUSCULAR HEMOGLOBIN (BEAKER) (test 34.2 pg 25.7-32.2 xllv=505) MEAN CORPUSCULAR HEMOGLOBIN CONC (BEAKER) (test 33.5 GM/DL 32.3-36.5 tlso=337) RED CELL DISTRIBUTION WIDTH (BEAKER) (test 15.5 % 11.6-14.4 minq=898) PLATELET COUNT (BEAKER) (test lrfx=873) 96 K/CU MM 150-450 MEAN PLATELET VOLUME (BEAKER) (test bitl=356) 11.0 fL 9.4-12.4 NUCLEATED RED BLOOD CELLS (BEAKER) (test 0 /100 WBC 0-0 rrfx=341) NEUTROPHILS RELATIVE PERCENT (BEAKER) (test 73 % dodv=601) LYMPHOCYTES RELATIVE PERCENT (BEAKER) (test 11 % nfey=543) MONOCYTES RELATIVE PERCENT (BEAKER) (test 13 % wkbm=867) EOSINOPHILS RELATIVE PERCENT (BEAKER) (test 1 % robb=750) BASOPHILS RELATIVE PERCENT (BEAKER) (test 0 % gbgs=904) NEUTROPHILS ABSOLUTE COUNT (BEAKER) (test 4.48 K/ L 1.78-5.38 paqc=783) LYMPHOCYTES ABSOLUTE COUNT (BEAKER) (test 0.70 K/ L 1.32-3.57 jcqt=642) MONOCYTES ABSOLUTE COUNT (BEAKER) (test bapd=606) 0.82 K/ L 0.30-0.82 EOSINOPHILS ABSOLUTE COUNT (BEAKER) (test 0.08 K/ L 0.04-0.54 cbes=895) BASOPHILS ABSOLUTE COUNT (BEAKER) (test hqlv=413) 0.02 K/ L 0.01-0.08 IMMATURE GRANULOCYTES-RELATIVE PERCENT (BEAKER) 1 % 0-1 (test hocw=4020) HEMOGLOBIN AND [id number] 02:04:00 Test Item Value Reference Range Comments HEMOGLOBIN (BEAKER) (test qykh=447) 8.0 GM/DL 13.7-17.5 HEMATOCRIT (BEAKER) (test ppem=132) 23.9 % 40.1-51.0 POCT-GLUCOSE [id number] 01:58:00 Test Item Value Reference Range Comments POC-GLUCOSE METER (BEAKER) 194 mg/dL 70-110 TESTED AT [address] (test yeeq=7304) [place] [id number] POCT-GLUCOSE [id number] 18:05:00 Test Item Value Reference Range Comments POC-GLUCOSE METER (BEAKER) 212 mg/dL 70-110 TESTED AT [address] (test iwno=9540) [place] [id number] BLOOD GAS, [id number] 17:31:00 Test Item Value Reference Range Comments PH ARTERIAL (BEAKER) (test emil=271) 7.44 7.35-7.45 PCO2 ARTERIAL (BEAKER) (test uaip=574) 38 mmHg 35-45 PO2 ARTERIAL (BEAKER) (test gpsi=112) 63 mmHg 80-90 O2 SATURATION ARTERIAL (BEAKER) (test cogn=046) 92.8 % 96.0-97.0 HCO3 ARTERIAL (BEAKER) (test lleq=973) 25 mmol/L 21-29 BASE EXCESS ARTERIAL (BEAKER) (test kddy=306) 1.0 mmol/L -2.0-3.0 PATIENT TEMPERATURE (BEAKER) (test ilav=4394) 37.0 C FIO2 (BEAKER) (test koki=8217) 40.0 % RAD, CHEST, 1 VIEW, NON [id number] 16:59:00Post-intubationReason for exam:-& gt;intubationShould this be performed at the bedside?->YesFINAL REPORT Portable chest. CLINICAL HISTORY: intubation. COMPARISON STUDY: August 22, 2018. FINDINGS: The cardiac silhouette is enlarged. Sternotomy wires are seen. The pulmonaryparenchyma demonstrates interstitial markings with scattered atelectatic changes, less pronounced than on previous. An endotracheal tube has been inserted, the tip approximately 3.1 cm above the pedro pablo. There is a nasogastric tube, the tip projecting in the proximal stomach. A TAVR is present. No pneumothorax is seen. Degenerative changes are noted. IMPRESSION: Interval intubation and insertion of nasogastric tube. Improvement in pulmonary opacities. Signed: Tomasz De La Torre MDReport Verified Date/Time: 08/22/2018 16:59:35 Reading Location: [facility] C013X [facility] Consult Reading Room CBC W/PLT COUNT & AUTO [id number] 16:38:00 Test Item Value Reference Range Comments WHITE BLOOD CELL COUNT (BEAKER) (test kazu=216) 5.2 K/ L 3.5-10.5 RED BLOOD CELL COUNT (BEAKER) (test ydft=505) 2.47 M/ L 4.63-6.08 HEMOGLOBIN (BEAKER) (test muix=391) 8.3 GM/DL 13.7-17.5 HEMATOCRIT (BEAKER) (test sgnq=634) 25.3 % 40.1-51.0 MEAN CORPUSCULAR VOLUME (BEAKER) (test mube=769) 102.4 fL 79.0-92.2 MEAN CORPUSCULAR HEMOGLOBIN (BEAKER) (test 33.6 pg 25.7-32.2 fndv=516) MEAN CORPUSCULAR HEMOGLOBIN CONC (BEAKER) (test 32.8 GM/DL 32.3-36.5 lhpb=613) RED CELL DISTRIBUTION WIDTH (BEAKER) (test 15.3 % 11.6-14.4 eupc=383) PLATELET COUNT (BEAKER) (test uxoc=873) 75 K/CU MM 150-450 MEAN PLATELET VOLUME (BEAKER) (test xyot=539) 11.3 fL 9.4-12.4 NUCLEATED RED BLOOD CELLS (BEAKER) (test 0 /100 WBC 0-0 nryv=579) NEUTROPHILS RELATIVE PERCENT (BEAKER) (test 75 % uycb=850) LYMPHOCYTES RELATIVE PERCENT (BEAKER) (test 15 % wdms=059) MONOCYTES RELATIVE PERCENT (BEAKER) (test 10 % jumf=882) EOSINOPHILS RELATIVE PERCENT (BEAKER) (test 0 % lxat=091) BASOPHILS RELATIVE PERCENT (BEAKER) (test 0 % wwgp=771) NEUTROPHILS ABSOLUTE COUNT (BEAKER) (test 3.90 K/ L 1.78-5.38 gfob=075) LYMPHOCYTES ABSOLUTE COUNT (BEAKER) (test 0.76 K/ L 1.32-3.57 mest=758) MONOCYTES ABSOLUTE COUNT (BEAKER) (test odpw=442) 0.52 K/ L 0.30-0.82 EOSINOPHILS ABSOLUTE COUNT (BEAKER) (test 0.02 K/ L 0.04-0.54 efjh=270) BASOPHILS ABSOLUTE COUNT (BEAKER) (test lnzp=124) 0.01 K/ L 0.01-0.08 IMMATURE GRANULOCYTES-RELATIVE PERCENT (BEAKER) 0 % 0-1 (test azwx=5028) HEMOGLOBIN AND [id number] 16:25:00 Test Item Value Reference Range Comments HEMOGLOBIN (BEAKER) (test ostf=974) 8.3 GM/DL 13.7-17.5 HEMATOCRIT (BEAKER) (test vfaf=789) 25.3 % 40.1-51.0 BLOOD GAS, [id number] 15:56:00 Test Item Value Reference Range Comments PH VENOUS (BEAKER) (test cipl=831) 7.36 7.32-7.42 PCO2 VENOUS (BEAKER) (test tinf=027) 42 mmHg 41-51 PO2 VENOUS (BEAKER) (test rosf=835) 42 mmHg 25-40 O2 SATURATION VENOUS (BEAKER) (test hekv=333) 76.6 % 40.0-70.0 HCO3 VENOUS (BEAKER) (test zoin=410) 24 mmol/L 21-29 BASE EXCESS VENOUS (BEAKER) (test sibg=646) -1.8 mmol/L -2.0-3.0 PATIENT TEMPERATURE (BEAKER) (test hgot=4031) 36.7 C FIO2 (BEAKER) (test nafu=0806) 21.0 % HEPATIC FUNCTION [id number] 14:56:00 Test Item Value Reference Range Comments TOTAL PROTEIN (BEAKER) (test 7.5 gm/dL 6.0-8.3 Specimen slightly hemolyzed zbev=429) ALBUMIN (BEAKER) (test 4.1 g/dL 3.5-5.0 Specimen slightly hemolyzed tozf=3646) BILIRUBIN TOTAL (BEAKER) (test 2.3 mg/dL 0.2-1.2 Specimen slightly hemolyzed bukj=604) BILIRUBIN DIRECT (BEAKER) (test 0.8 mg/dL 0.1-0.5 Specimen slightly hemolyzed zxwx=911) ALKALINE PHOSPHATASE (BEAKER) 103 U/L 40-150 (test zzkg=295) AST (SGOT) (BEAKER) (test 23 U/L 5-34 Specimen slightly hemolyzed wecf=086) ALT (SGPT) (BEAKER) (test 15 U/L 6-55 Specimen slightly hemolyzed iwlq=468) Specimen slightly [id number] 14:50:00 Test Item Value Reference Range Comments AMMONIA (BEAKER) (test qhsc=434) 129 mol/L 18-72 TROPONIN [id number] 14:12:00 Test Item Value Reference Range Comments TROPONIN I (BEAKER) (test xevd=468) 0.02 ng/mL 0.00-0.03 Troponin I (TnI) levels must [...] failure, acidosis, acute neurological disease, and persistent tachyarrhythmia.RAD, CHEST, 1 VIEW, NON [id number] 14:11:00Post-intubationReason for exam:->r/o pnaShould this be performed at the bedside?->YesFINAL REPORT Portable chest. CLINICAL HISTORY: r/o pna. COMPARISON STUDY: March 06, 2018. FINDINGS: The cardiac silhouette is enlarged. Sternotomy wires are seen. The patient isstatus post valve replacement. The pulmonary parenchyma demonstrates increased interstitial markingswith atelectasis or fibrosis in the lung bases, similar to previous. No pneumothorax is seen. Degenerative changes are noted. IMPRESSION: Removal of nasogastric tube and right jugular line as compared to previous. No other significant change. Signed: Tomasz De La Torre MDReport Verified Date/Time: 08/22/2018 14:11:20 Reading Location: [facility] C013X Ortho Consult Reading Room [id number] 14:06:00 Test Item Value Reference Range Comments PHOSPHORUS (BEAKER) (test wrgk=660) 3.6 mg/dL 2.3-4.7 [id number] 14:06:00 Test Item Value Reference Range Comments MAGNESIUM (BEAKER) (test duoo=659) 2.0 mg/dL 1.6-2.6 COMPREHENSIVE METABOLIC [id number] 14:06:00 Test Item Value Reference Range Comments TOTAL PROTEIN (BEAKER) 7.4 gm/dL 6.0-8.3 (test fxpj=729) ALBUMIN (BEAKER) (test 4.1 g/dL 3.5-5.0 solm=2365) ALKALINE PHOSPHATASE 103 U/L 40-150 (BEAKER) (test nrxm=747) BILIRUBIN TOTAL (BEAKER) 2.3 mg/dL 0.2-1.2 (test miwh=386) SODIUM (BEAKER) (test 140 meq/L 136-145 xgzr=123) POTASSIUM (BEAKER) (test 4.0 meq/L 3.5-5.1 fqdh=747) CHLORIDE (BEAKER) (test 105 meq/L 98-107 zavw=103) CO2 (BEAKER) (test 24 meq/L 22-29 wnko=089) BLOOD UREA NITROGEN 35 mg/dL 7-21 (BEAKER) (test nmvc=375) CREATININE (BEAKER) (test 1.23 mg/dL 0.57-1.25 ayie=787) GLUCOSE RANDOM (BEAKER) 170 mg/dL 70-105 (test dsxn=797) CALCIUM (BEAKER) (test 9.5 mg/dL 8.4-10.2 smgm=235) AST (SGOT) (BEAKER) (test 22 U/L 5-34 tsgd=211) ALT (SGPT) (BEAKER) (test 15 U/L 6-55 vkjw=489) EGFR (BEAKER) (test 56 mL/min/1.73 sq m ESTIMATED GFR IS NOT axlb=4660) ACCURATE CREATININE CLEARANCE IN PREDICTING GLOMERULAR FILTRATION RATE. ESTIMATED GFR IS NOT APPLICABLE FOR DIALYSIS PATIENTS. Specimen slightly ictericLACTIC ACID, [id number] 14:01:00 Test Item Value Reference Range Comments LACTATE BLOOD VENOUS (2) 1.9 mmol/L 0.5-2.2 Specimen slightly hemolyzed (BEAKER) (test yziq=1829) Specimen slightly [id number] 14:00:00 Test Item Value Reference Range Comments FIBRINOGEN LEVEL (BEAKER) (test ycgh=660) 329 mg/dl 225-434 [id number] 14:00:00 Test Item Value Reference Range Comments PARTIAL THROMBOPLASTIN TIME (BEAKER) (test 36.4 seconds 22.5-36.0 eost=880) PROTHROMBIN [id number] 13:59:00 Test Item Value Reference Range Comments PROTIME (BEAKER) (test kqgv=398) 22.1 seconds 11.9-14.2 INR (BEAKER) (test dnok=030) 2.1 <=5.9 Effective 07/28/2018: PT Reference Range ChangeNew: 11.9-14.2 Previous: 11.7- 14.7RECOMMENDED COUMADIN/WARFARIN INR THERAPY RANGESSTANDARD DOSE: 2.0-3.0 Includes: PROPHYLAXIS for venous thrombosis, systemic embolization; TREATMENT for venous thrombosis and/or pulmonary embolus.HIGH RISK: Target INR is2.5-3.5 for patients wiht mechanical heart valves.CBC W/PLT COUNT & AUTO [id number] 13:47:00 Test Item Value Reference Range Comments WHITE BLOOD CELL COUNT (BEAKER) (test nuqa=039) 4.9 K/ L 3.5-10.5 RED BLOOD CELL COUNT (BEAKER) (test nfsp=615) 2.57 M/ L 4.63-6.08 HEMOGLOBIN (BEAKER) (test dpbs=769) 8.6 GM/DL 13.7-17.5 HEMATOCRIT (BEAKER) (test cpgs=234) 26.4 % 40.1-51.0 MEAN CORPUSCULAR VOLUME (BEAKER) (test otfl=986) 102.7 fL 79.0-92.2 MEAN CORPUSCULAR HEMOGLOBIN (BEAKER) (test 33.5 pg 25.7-32.2 fjmr=730) MEAN CORPUSCULAR HEMOGLOBIN CONC (BEAKER) (test 32.6 GM/DL 32.3-36.5 qyuy=583) RED CELL DISTRIBUTION WIDTH (BEAKER) (test 15.1 % 11.6-14.4 nfxn=996) PLATELET COUNT (BEAKER) (test qqbz=982) 81 K/CU MM 150-450 MEAN PLATELET VOLUME (BEAKER) (test jeav=911) 11.2 fL 9.4-12.4 NUCLEATED RED BLOOD CELLS (BEAKER) (test 0 /100 WBC 0-0 ohnx=349) NEUTROPHILS RELATIVE PERCENT (BEAKER) (test 75 % hrag=201) LYMPHOCYTES RELATIVE PERCENT (BEAKER) (test 15 % kwgm=736) MONOCYTES RELATIVE PERCENT (BEAKER) (test 10 % oamy=062) EOSINOPHILS RELATIVE PERCENT (BEAKER) (test 0 % khue=989) BASOPHILS RELATIVE PERCENT (BEAKER) (test 0 % mndx=893) NEUTROPHILS ABSOLUTE COUNT (BEAKER) (test 3.64 K/ L 1.78-5.38 zwhr=653) LYMPHOCYTES ABSOLUTE COUNT (BEAKER) (test 0.72 K/ L 1.32-3.57 zycl=520) MONOCYTES ABSOLUTE COUNT (BEAKER) (test hmio=675) 0.47 K/ L 0.30-0.82 EOSINOPHILS ABSOLUTE COUNT (BEAKER) (test 0.01 K/ L 0.04-0.54 gvia=660) BASOPHILS ABSOLUTE COUNT (BEAKER) (test jdif=798) 0.01 K/ L 0.01-0.08 IMMATURE GRANULOCYTES-RELATIVE PERCENT (BEAKER) 0 % 0-1 (test mnxj=0521) POCT-GLUCOSE [id number] 07:50:00 Test Item Value Reference Range Comments POC-GLUCOSE METER (BEAKER) 137 mg/dL 70-110 TESTED AT [facility] [address] [facility] (test qsrr=0668) [facility] [address] BASIC METABOLIC [id number] 06:28:00 Test Item Value Reference Range Comments SODIUM (BEAKER) (test 137 meq/L 136-145 smwm=793) POTASSIUM (BEAKER) (test 3.7 meq/L 3.5-5.1 zkmv=338) CHLORIDE (BEAKER) (test 104 meq/L 98-107 surp=981) CO2 (BEAKER) (test 28 meq/L 22-29 seoz=860) BLOOD UREA NITROGEN 26 mg/dL 7-21 (BEAKER) (test nbax=065) CREATININE (BEAKER) (test 1.26 mg/dL 0.57-1.25 jeks=627) GLUCOSE RANDOM (BEAKER) 100 mg/dL 70-105 (test pszn=881) CALCIUM (BEAKER) (test 8.6 mg/dL 8.4-10.2 atfk=515) EGFR (BEAKER) (test 54 mL/min/1.73 sq m ESTIMATED GFR IS NOT wars=3510) ACCURATE CREATININE CLEARANCE IN PREDICTING GLOMERULAR FILTRATION RATE. ESTIMATED GFR IS NOT APPLICABLE FOR DIALYSIS PATIENTS. CBC W/PLT COUNT & AUTO [id number] 06:08:00 Test Item Value Reference Range Comments WHITE BLOOD CELL COUNT (BEAKER) (test vwif=451) 3.4 K/ L 3.5-10.5 RED BLOOD CELL COUNT (BEAKER) (test aneb=383) 2.25 M/ L 4.63-6.08 HEMOGLOBIN (BEAKER) (test qdms=465) 7.4 GM/DL 13.7-17.5 HEMATOCRIT (BEAKER) (test nfqx=497) 23.1 % 40.1-51.0 MEAN CORPUSCULAR VOLUME (BEAKER) (test trio=078) 102.7 fL 79.0-92.2 MEAN CORPUSCULAR HEMOGLOBIN (BEAKER) (test 32.9 pg 25.7-32.2 ezkv=269) MEAN CORPUSCULAR HEMOGLOBIN CONC (BEAKER) (test 32.0 GM/DL 32.3-36.5 xhav=965) RED CELL DISTRIBUTION WIDTH (BEAKER) (test 13.9 % 11.6-14.4 fkak=730) PLATELET COUNT (BEAKER) (test ooko=889) 119 K/CU MM 150-450 MEAN PLATELET VOLUME (BEAKER) (test hxev=619) 10.4 fL 9.4-12.4 NUCLEATED RED BLOOD CELLS (BEAKER) (test 0 /100 WBC 0-0 jheh=512) NEUTROPHILS RELATIVE PERCENT (BEAKER) (test 59 % jykk=656) LYMPHOCYTES RELATIVE PERCENT (BEAKER) (test 21 % wtnn=091) MONOCYTES RELATIVE PERCENT (BEAKER) (test 14 % mrao=130) EOSINOPHILS RELATIVE PERCENT (BEAKER) (test 5 % reti=913) BASOPHILS RELATIVE PERCENT (BEAKER) (test 1 % jgdg=010) NEUTROPHILS ABSOLUTE COUNT (BEAKER) (test 2.03 K/ L 1.78-5.38 btme=711) LYMPHOCYTES ABSOLUTE COUNT (BEAKER) (test 0.73 K/ L 1.32-3.57 mqqg=599) MONOCYTES ABSOLUTE COUNT (BEAKER) (test 0.47 K/ L 0.30-0.82 kdky=196) EOSINOPHILS ABSOLUTE COUNT (BEAKER) (test 0.17 K/ L 0.04-0.54 ycby=561) BASOPHILS ABSOLUTE COUNT (BEAKER) (test 0.02 K/ L 0.01-0.08 xmrc=958) IMMATURE GRANULOCYTES-RELATIVE PERCENT (BEAKER) 0 % 0-1 (test vish=0428) PROTHROMBIN [id number] 05:57:00 Test Item Value Reference Range Comments PROTIME (BEAKER) (test cjul=329) 19.3 seconds 11.7-14.7 INR (BEAKER) (test yljj=868) 1.6 <=5.9 RECOMMENDED COUMADIN/WARFARIN INR THERAPY RANGESSTANDARD DOSE: 2.0 - 3.0 Includes: PROPHYLAXIS forvenous thrombosis, systemic embolization; TREATMENT for venous thrombosis and/or pulmonary embolus.HIGH RISK: Target INR is 2.5-3.5 for patients with mechanical heart valves.While on warfarin.POCT-GLUCOSE [id number] 21:28:00 Test Item Value Reference Range Comments POC-GLUCOSE METER (BEAKER) 138 mg/dL 70-110 TESTED AT [address] (test gsnp=1803) [facility] [address] POCT-GLUCOSE [id number] 17:49:00 Test Item Value Reference Range Comments POC-GLUCOSE METER (BEAKER) 137 mg/dL 70-110 TESTED AT [place] [id number] [facility] (test ljoe=5589) [facility] [address] CBC W/PLT COUNT & AUTO [id number] 13:23:00 Test Item Value Reference Range Comments WHITE BLOOD CELL COUNT (BEAKER) (test thrf=116) 3.6 K/ L 3.5-10.5 RED BLOOD CELL COUNT (BEAKER) (test eufr=863) 2.39 M/ L 4.63-6.08 HEMOGLOBIN (BEAKER) (test wbwb=438) 7.9 GM/DL 13.7-17.5 HEMATOCRIT (BEAKER) (test spbg=012) 24.9 % 40.1-51.0 MEAN CORPUSCULAR VOLUME (BEAKER) (test gsha=531) 104.2 fL 79.0-92.2 MEAN CORPUSCULAR HEMOGLOBIN (BEAKER) (test 33.1 pg 25.7-32.2 uvow=838) MEAN CORPUSCULAR HEMOGLOBIN CONC (BEAKER) (test 31.7 GM/DL 32.3-36.5 euoj=269) RED CELL DISTRIBUTION WIDTH (BEAKER) (test 13.8 % 11.6-14.4 agrt=506) PLATELET COUNT (BEAKER) (test xzkw=030) 135 K/CU MM 150-450 MEAN PLATELET VOLUME (BEAKER) (test eztj=457) 11.0 fL 9.4-12.4 NUCLEATED RED BLOOD CELLS (BEAKER) (test 0 /100 WBC 0-0 kkba=753) (CELLAVISION MANUAL DIFF)2018-03-12 13:23:00 Test Item Value Reference Range Comments NEUTROPHILS - REL (CELLAVISION)(BEAKER) (test 60 % msxl=5183) LYMPHOCYTES - REL (CELLAVISION)(BEAKER) (test 21 % vjcu=8844) MONOCYTES - REL (CELLAVISION)(BEAKER) (test 9 % pnhj=8659) EOSINOPHILS - REL (CELLAVISION)(BEAKER) (test 5 % kjku=6661) BASOPHILS - REL (CELLAVISION)(BEAKER) (test 1 % frgi=4434) BANDS - REL (CELLAVISION)(BEAKER) (test 2 % 0-10 bodo=6829) ATYPICAL LYMPHOCYTES - REL (CELLAVISION)(BEAKER) 2 % 0-0 (test mzdz=0803) NEUTROPHILS - ABS (CELLAVISION)(BEAKER) (test 2.16 K/ul 1.78-5.38 cwan=3575) LYMPHOCYTES - ABS (CELLAVISION)(BEAKER) (test 0.76 K/ul 1.32-3.57 gpqt=3646) MONOCYTES - ABS (CELLAVISION)(BEAKER) (test 0.32 K/uL 0.30-0.82 ajna=2236) EOSINOPHILS - ABS (CELLAVISION)(BEAKER) (test 0.18 K/uL 0.04-0.54 ttqr=5355) BASOPHILS - ABS (CELLAVISION)(BEAKER) (test 0.04 K/uL 0.01-0.08 xipu=3542) BANDS - ABS (CELLAVISION)(BEAKER) (test 0.07 K/uL 0.00-0.80 mmzz=2118) ATYPICAL LYMPHOCYTES - ABS (CELLAVISION)(BEAKER) 0.07 K/uL 0.00-0.00 (test cods=8968) TOTAL COUNTED (BEAKER) (test ayen=0158) 100 WBC MORPHOLOGY (BEAKER) (test rybk=589) Normal PLT MORPHOLOGY (BEAKER) (test lhhz=062) Normal POIKILOCYTES (BEAKER) (test tmee=690) 2+ moderate ARTIFACT (CELLAVISION)(BEAKER) (test vfwk=4259) Present PLATELET CONCENTRATION (CELLAVISION)(BEAKER) Decreased (test uidm=9165) Received comment: User comments: Slide comments:POCT-GLUCOSE [id number] 11: 08:00 Test Item Value Reference Range Comments POC-GLUCOSE METER (BEAKER) 184 mg/dL 70-110 TESTED AT [address] (test wvrb=2284) [facility] [id number] BASIC METABOLIC [id number] 06:30:00 Test Item Value Reference Range Comments SODIUM (BEAKER) (test 139 meq/L 136-145 omeb=742) POTASSIUM (BEAKER) (test 3.8 meq/L 3.5-5.1 bjxq=624) CHLORIDE (BEAKER) (test 105 meq/L 98-107 spce=998) CO2 (BEAKER) (test 26 meq/L 22-29 qlnf=280) BLOOD UREA NITROGEN 27 mg/dL 7-21 (BEAKER) (test khgy=159) CREATININE (BEAKER) (test 1.25 mg/dL 0.57-1.25 ftbo=184) GLUCOSE RANDOM (BEAKER) 98 mg/dL 70-105 (test razq=449) CALCIUM (BEAKER) (test 9.0 mg/dL 8.4-10.2 nwmm=329) EGFR (BEAKER) (test 55 mL/min/1.73 sq m ESTIMATED GFR IS NOT cyci=6476) ACCURATE CREATININE CLEARANCE IN PREDICTING GLOMERULAR FILTRATION RATE. ESTIMATED GFR IS NOT APPLICABLE FOR DIALYSIS PATIENTS. PROTHROMBIN [id number] 06:25:00 Test Item Value Reference Range Comments PROTIME (BEAKER) (test uuuc=266) 16.7 seconds 11.7-14.7 INR (BEAKER) (test ysng=145) 1.3 <=5.9 RECOMMENDED COUMADIN/WARFARIN INR THERAPY RANGESSTANDARD DOSE: 2.0 - 3.0 Includes: PROPHYLAXIS forvenous thrombosis, systemic embolization; TREATMENT for venous thrombosis and/or pulmonary embolus.HIGH RISK: Target INR is 2.5-3.5 for patients with mechanical heart valves.While on warfarin.POCT-GLUCOSE [id number] 21:14:00 Test Item Value Reference Range Comments POC-GLUCOSE METER (BEAKER) 129 mg/dL 70-110 TESTED AT [facility] [address] [facility] (test igph=3538) [facility] [address] POCT-GLUCOSE [id number] 17:06:00 Test Item Value Reference Range Comments POC-GLUCOSE METER (BEAKER) 155 mg/dL 70-110 TESTED AT [address] (test jvqf=3722) [facility] [address] CBC W/PLT COUNT & AUTO [id number] 13:39:00 Test Item Value Reference Range Comments WHITE BLOOD CELL COUNT (BEAKER) (test fckt=931) 3.9 K/ L 3.5-10.5 RED BLOOD CELL COUNT (BEAKER) (test fkqr=889) 2.27 M/ L 4.63-6.08 HEMOGLOBIN (BEAKER) (test faey=564) 7.5 GM/DL 13.7-17.5 HEMATOCRIT (BEAKER) (test smvv=077) 23.8 % 40.1-51.0 MEAN CORPUSCULAR VOLUME (BEAKER) (test xsta=484) 104.8 fL 79.0-92.2 MEAN CORPUSCULAR HEMOGLOBIN (BEAKER) (test 33.0 pg 25.7-32.2 lcfk=743) MEAN CORPUSCULAR HEMOGLOBIN CONC (BEAKER) (test 31.5 GM/DL 32.3-36.5 nypo=101) RED CELL DISTRIBUTION WIDTH (BEAKER) (test 13.9 % 11.6-14.4 lrve=976) PLATELET COUNT (BEAKER) (test esly=072) 116 K/CU MM 150-450 MEAN PLATELET VOLUME (BEAKER) (test sfkx=639) 11.2 fL 9.4-12.4 NUCLEATED RED BLOOD CELLS (BEAKER) (test 0 /100 WBC 0-0 zdio=467) (CELLAVISION MANUAL DIFF)2018-03-11 13:39:00 Test Item Value Reference Range Comments NEUTROPHILS - REL (CELLAVISION)(BEAKER) (test 64 % lcqm=3420) LYMPHOCYTES - REL (CELLAVISION)(BEAKER) (test 16 % fxki=5786) MONOCYTES - REL (CELLAVISION)(BEAKER) (test 7 % zprf=9839) EOSINOPHILS - REL (CELLAVISION)(BEAKER) (test 4 % novp=0833) BASOPHILS - REL (CELLAVISION)(BEAKER) (test 4 % ewaa=9437) BANDS - REL (CELLAVISION)(BEAKER) (test 3 % 0-10 ldet=9828) ATYPICAL LYMPHOCYTES - REL (CELLAVISION)(BEAKER) 2 % 0-0 (test noop=6121) NEUTROPHILS - ABS (CELLAVISION)(BEAKER) (test 2.50 K/ul 1.78-5.38 cdis=2123) LYMPHOCYTES - ABS (CELLAVISION)(BEAKER) (test 0.62 K/ul 1.32-3.57 iwma=9618) MONOCYTES - ABS (CELLAVISION)(BEAKER) (test 0.27 K/uL 0.30-0.82 rnij=3957) EOSINOPHILS - ABS (CELLAVISION)(BEAKER) (test 0.16 K/uL 0.04-0.54 nvcu=0943) BASOPHILS - ABS (CELLAVISION)(BEAKER) (test 0.16 K/uL 0.01-0.08 temp=5160) BANDS - ABS (CELLAVISION)(BEAKER) (test 0.12 K/uL 0.00-0.80 tbhb=9760) ATYPICAL LYMPHOCYTES - ABS (CELLAVISION)(BEAKER) 0.08 K/uL 0.00-0.00 (test actc=7956) TOTAL COUNTED (BEAKER) (test oeix=5244) 100 MANUAL NRBC PER 100 CELLS (BEAKER) (test 2 /100 WBC 0-0 svkx=8699) SMUDGE CELLS (BEAKER) (test ajyr=5256) Present GIANT PLATELETS (BEAKER) (test hblo=777) Present POIKILOCYTES (BEAKER) (test bfco=201) 2+ moderate SCHISTOCYTES (BEAKER) (test ichp=544) 1+ few OVALOCYTES (BEAKER) (test skdi=773) 1+ few MATTHEW CELLS (BEAKER) (test oalc=893) 1+ few PLATELET CONCENTRATION (CELLAVISION)(BEAKER) Adequate (test etur=2539) Received comment: User comments: Slide comments:POCT-GLUCOSE [id number] 11: 37:00 Test Item Value Reference Range Comments POC-GLUCOSE METER (BEAKER) 140 mg/dL 70-110 TESTED AT [address] (test hwse=4244) [place] [id number] POCT-GLUCOSE [id number] 07:55:00 Test Item Value Reference Range Comments POC-GLUCOSE METER (BEAKER) 139 mg/dL 70-110 TESTED AT [address] (test gppg=9441) [place] [id number] BASIC METABOLIC [id number] 05:47:00 Test Item Value Reference Range Comments SODIUM (BEAKER) (test 138 meq/L 136-145 mwgt=829) POTASSIUM (BEAKER) (test 3.7 meq/L 3.5-5.1 peny=728) CHLORIDE (BEAKER) (test 105 meq/L 98-107 znys=751) CO2 (BEAKER) (test 27 meq/L 22-29 fcej=986) BLOOD UREA NITROGEN 32 mg/dL 7-21 (BEAKER) (test iwqe=220) CREATININE (BEAKER) (test 1.14 mg/dL 0.57-1.25 kuug=571) GLUCOSE RANDOM (BEAKER) 109 mg/dL 70-105 (test gicr=960) CALCIUM (BEAKER) (test 8.7 mg/dL 8.4-10.2 lfdi=863) EGFR (BEAKER) (test 61 mL/min/1.73 sq m ESTIMATED GFR IS NOT sett=2024) ACCURATE CREATININE CLEARANCE IN PREDICTING GLOMERULAR FILTRATION RATE. ESTIMATED GFR IS NOT APPLICABLE FOR DIALYSIS PATIENTS. PROTHROMBIN [id number] 05:28:00 Test Item Value Reference Range Comments PROTIME (BEAKER) (test wlbx=872) 15.7 seconds 11.7-14.7 INR (BEAKER) (test zfin=964) 1.2 <=5.9 RECOMMENDED COUMADIN/WARFARIN INR THERAPY RANGESSTANDARD DOSE: 2.0 - 3.0 Includes: PROPHYLAXIS forvenous thrombosis, systemic embolization; TREATMENT for venous thrombosis and/or pulmonary embolus.HIGH RISK: Target INR is 2.5-3.5 for patients with mechanical heart valves.While on warfarin.POCT-GLUCOSE [id number] 20:37:00 Test Item Value Reference Range Comments POC-GLUCOSE METER (BEAKER) 146 mg/dL 70-110 TESTED AT [address] (test fcwr=8212) [facility] [address] POCT-GLUCOSE [id number] 17:28:00 Test Item Value Reference Range Comments POC-GLUCOSE METER (BEAKER) 156 mg/dL 70-110 TESTED AT [address] (test xkxs=3602) [facility] [address] CBC W/PLT COUNT & AUTO [id number] 13:53:00 Test Item Value Reference Range Comments WHITE BLOOD CELL COUNT (BEAKER) (test kaov=954) 4.1 K/ L 3.5-10.5 RED BLOOD CELL COUNT (BEAKER) (test bqej=256) 2.37 M/ L 4.63-6.08 HEMOGLOBIN (BEAKER) (test zwoa=621) 7.8 GM/DL 13.7-17.5 HEMATOCRIT (BEAKER) (test kyth=146) 24.6 % 40.1-51.0 MEAN CORPUSCULAR VOLUME (BEAKER) (test kpvt=091) 103.8 fL 79.0-92.2 MEAN CORPUSCULAR HEMOGLOBIN (BEAKER) (test 32.9 pg 25.7-32.2 qvtd=529) MEAN CORPUSCULAR HEMOGLOBIN CONC (BEAKER) (test 31.7 GM/DL 32.3-36.5 gulu=130) RED CELL DISTRIBUTION WIDTH (BEAKER) (test 14.2 % 11.6-14.4 sqpw=736) PLATELET COUNT (BEAKER) (test evhh=778) 123 K/CU MM 150-450 MEAN PLATELET VOLUME (BEAKER) (test dvdp=018) 11.1 fL 9.4-12.4 NUCLEATED RED BLOOD CELLS (BEAKER) (test 0 /100 WBC 0-0 xesu=904) (CELLAVISION MANUAL DIFF)2018-03-10 13:53:00 Test Item Value Reference Range Comments NEUTROPHILS - REL (CELLAVISION)(BEAKER) (test 70 % kgzq=4937) LYMPHOCYTES - REL (CELLAVISION)(BEAKER) (test 19 % dxxc=3380) MONOCYTES - REL (CELLAVISION)(BEAKER) (test 8 % ujvx=3640) BANDS - REL (CELLAVISION)(BEAKER) (test ilgi=7555) 3 % 0-10 NEUTROPHILS - ABS (CELLAVISION)(BEAKER) (test 2.87 K/ul 1.78-5.38 aepf=5751) LYMPHOCYTES - ABS (CELLAVISION)(BEAKER) (test 0.78 K/ul 1.32-3.57 szkx=4994) MONOCYTES - ABS (CELLAVISION)(BEAKER) (test 0.33 K/uL 0.30-0.82 zxzo=3982) BANDS - ABS (CELLAVISION)(BEAKER) (test omcg=9567) 0.12 K/uL 0.00-0.80 TOTAL COUNTED (BEAKER) (test texd=3845) 100 SMUDGE CELLS (BEAKER) (test asun=2858) Present GIANT PLATELETS (BEAKER) (test yvyg=060) Present ANISOCYTOSIS (BEAKER) (test rktq=411) 1+ few MICROCYTES (BEAKER) (test iyez=802) 1+ few POIKILOCYTES (BEAKER) (test yciw=577) 1+ few SCHISTOCYTES (BEAKER) (test egwt=578) 1+ few PLATELET CONCENTRATION (CELLAVISION)(BEAKER) (test Adequate fmcr=4488) Received comment: User comments: Slide comments:POCT-GLUCOSE [id number] 12: 04:00 Test Item Value Reference Range Comments POC-GLUCOSE METER (BEAKER) 182 mg/dL 70-110 TESTED AT [facility] [address] (test dqne=7025) [facility] [address] POCT-GLUCOSE [id number] 08:09:00 Test Item Value Reference Range Comments POC-GLUCOSE METER (BEAKER) 111 mg/dL 70-110 TESTED AT [facility] [address] (test qwjz=6391) [facility] [address] BASIC METABOLIC [id number] 07:02:00 Test Item Value Reference Range Comments SODIUM (BEAKER) (test 140 meq/L 136-145 rpkq=046) POTASSIUM (BEAKER) (test 4.1 meq/L 3.5-5.1 mdkf=622) CHLORIDE (BEAKER) (test 106 meq/L 98-107 fvdy=365) CO2 (BEAKER) (test 28 meq/L 22-29 wvcm=490) BLOOD UREA NITROGEN 31 mg/dL 7-21 (BEAKER) (test beem=533) CREATININE (BEAKER) (test 1.14 mg/dL 0.57-1.25 fxif=567) GLUCOSE RANDOM (BEAKER) 101 mg/dL 70-105 (test ryax=374) CALCIUM (BEAKER) (test 8.8 mg/dL 8.4-10.2 qdiz=242) EGFR (BEAKER) (test 61 mL/min/1.73 sq m ESTIMATED GFR IS NOT jfno=9861) ACCURATE CREATININE CLEARANCE IN PREDICTING GLOMERULAR FILTRATION RATE. ESTIMATED GFR IS NOT APPLICABLE FOR DIALYSIS PATIENTS. B-TYPE NATRIURETIC FACTOR (BNP)2018-03-10 06:49:00 Test Item Value Reference Range Comments B-TYPE NATRIURETIC PEPTIDE (BEAKER) (test 132 pg/mL 0-100 tpfi=980) PROTHROMBIN TIME/[id number] 06:39:00 Test Item Value Reference Range Comments PROTIME (BEAKER) (test vmyu=569) 15.3 seconds 11.7-14.7 INR (BEAKER) (test fmnd=656) 1.2 <=5.9 RECOMMENDED COUMADIN/WARFARIN INR THERAPY RANGESSTANDARD DOSE: 2.0 - 3.0 Includes: PROPHYLAXIS forvenous thrombosis, systemic embolization; TREATMENT for venous thrombosis and/or pulmonary embolus.HIGH RISK: Target INR is 2.5-3.5 for patients with mechanical heart valves.While on warfarin.POCT-GLUCOSE [id number] 22:04:00 Test Item Value Reference Range Comments POC-GLUCOSE METER (BEAKER) 162 mg/dL 70-110 TESTED AT [facility] [address] [facility] (test uxhs=3894) [facility] [address] POCT-GLUCOSE [id number] 18:15:00 Test Item Value Reference Range Comments POC-GLUCOSE METER (BEAKER) 127 mg/dL 70-110 TESTED AT [facility] [address] [facility] (test rahn=7065) [facility] [address] BASIC METABOLIC [id number] 08:18:00 Test Item Value Reference Range Comments SODIUM (BEAKER) (test 144 meq/L 136-145 bvvf=197) POTASSIUM (BEAKER) (test 4.1 meq/L 3.5-5.1 djuj=598) CHLORIDE (BEAKER) (test 112 meq/L 98-107 pxia=112) CO2 (BEAKER) (test 27 meq/L 22-29 wfbz=077) BLOOD UREA NITROGEN 30 mg/dL 7-21 (BEAKER) (test zpdk=197) CREATININE (BEAKER) (test 1.02 mg/dL 0.57-1.25 yvgg=775) GLUCOSE RANDOM (BEAKER) 110 mg/dL 70-105 (test xlyb=121) CALCIUM (BEAKER) (test 8.4 mg/dL 8.4-10.2 wfme=703) EGFR (BEAKER) (test 69 mL/min/1.73 sq m ESTIMATED GFR IS NOT tkii=7846) ACCURATE CREATININE CLEARANCE IN PREDICTING GLOMERULAR FILTRATION RATE. ESTIMATED GFR IS NOT APPLICABLE FOR DIALYSIS PATIENTS. [id number] 08:18:00 Test Item Value Reference Range Comments MAGNESIUM (BEAKER) (test oiqg=888) 2.2 mg/dL 1.6-2.6 CBC (HEMOGRAM ONLY)2018-03-09 08:03:00 Test Item Value Reference Range Comments WHITE BLOOD CELL COUNT (BEAKER) (test aveu=053) 4.3 K/ L 3.5-10.5 RED BLOOD CELL COUNT (BEAKER) (test mwpa=732) 2.36 M/ L 4.63-6.08 HEMOGLOBIN (BEAKER) (test lkfq=472) 7.9 GM/DL 13.7-17.5 HEMATOCRIT (BEAKER) (test bsde=226) 24.9 % 40.1-51.0 MEAN CORPUSCULAR VOLUME (BEAKER) (test awag=182) 105.5 fL 79.0-92.2 MEAN CORPUSCULAR HEMOGLOBIN (BEAKER) (test 33.5 pg 25.7-32.2 cjvw=781) MEAN CORPUSCULAR HEMOGLOBIN CONC (BEAKER) (test 31.7 GM/DL 32.3-36.5 fznt=741) RED CELL DISTRIBUTION WIDTH (BEAKER) (test 14.3 % 11.6-14.4 gvcm=662) PLATELET COUNT (BEAKER) (test htdi=054) 113 K/CU MM 150-450 MEAN PLATELET VOLUME (BEAKER) (test fooz=326) 11.4 fL 9.4-12.4 NUCLEATED RED BLOOD CELLS (BEAKER) (test 0 /100 WBC 0-0 hirk=353) POCT-GLUCOSE [id number] 05:58:00 Test Item Value Reference Range Comments POC-GLUCOSE METER (BEAKER) 153 mg/dL 70-110 TESTED AT [address] (test xeni=4524) [facility] [address] POCT-GLUCOSE [id number] 23:35:00 Test Item Value Reference Range Comments POC-GLUCOSE METER (BEAKER) 170 mg/dL 70-110 TESTED AT [address] (test fwtl=0234) [place] [id number] POCT-GLUCOSE [id number] 17:28:00 Test Item Value Reference Range Comments POC-GLUCOSE METER (BEAKER) 155 mg/dL 70-110 TESTED AT [address] (test eptg=8095) [place] [id number] HEMOGLOBIN AND [id number] 17:16:00 Test Item Value Reference Range Comments HEMOGLOBIN (BEAKER) (test stjr=274) 7.9 GM/DL 13.7-17.5 HEMATOCRIT (BEAKER) (test fyif=668) 24.9 % 40.1-51.0 BLOOD [id number] 13:01:00 Test Item Value Reference Range Comments CULTURE (BEAKER) (test vvdu=9514) No growth in 5 days BLOOD [id number] 13:00:00 Test Item Value Reference Range Comments CULTURE (BEAKER) (test bxge=9810) No growth in 5 days POCT-GLUCOSE [id number] 11:55:00 Test Item Value Reference Range Comments POC-GLUCOSE METER (BEAKER) 157 mg/dL 70-110 TESTED AT [address] (test bjuf=5332) [facility] [address] ANTI-MITOCHONDRIAL AB, REFLEX TO [id number] 10:22:00 Test Item Value Reference Range Comments SCAN RESULT (test dkgz=[id number]) POCT-GLUCOSE [id number] 05:46:00 Test Item Value Reference Range Comments POC-GLUCOSE METER (BEAKER) 161 mg/dL 70-110 TESTED AT [address] (test mgyk=6676) [facility] [address] HEPATIC FUNCTION [id number] 04:08:00 Test Item Value Reference Range Comments TOTAL PROTEIN (BEAKER) (test ecah=898) 5.6 gm/dL 6.0-8.3 ALBUMIN (BEAKER) (test lnis=8727) 3.0 g/dL 3.5-5.0 BILIRUBIN TOTAL (BEAKER) (test byfp=728) 1.7 mg/dL 0.2-1.2 BILIRUBIN DIRECT (BEAKER) (test mzwx=088) 0.7 mg/dL 0.1-0.5 ALKALINE PHOSPHATASE (BEAKER) (test uqut=566) 117 U/L 40-150 AST (SGOT) (BEAKER) (test xfqb=309) 52 U/L 5-34 ALT (SGPT) (BEAKER) (test xzmm=955) 30 U/L 6-55 [id number] 04:03:00 Test Item Value Reference Range Comments PHOSPHORUS (BEAKER) (test dwte=496) 2.4 mg/dL 2.3-4.7 Check Serum Phosphorus level 4 hours after IV phosphorus replacement or 8 hours after PO replacementcompleted.[id number] 04:03:00 Test Item Value Reference Range Comments MAGNESIUM (BEAKER) (test kfai=450) 2.5 mg/dL 1.6-2.6 Check Serum Phosphorus level 4 hours after IV phosphorus replacement or 8 hours after PO replacementcompleted.BASIC METABOLIC [id number] 04:03:00 Test Item Value Reference Range Comments SODIUM (BEAKER) (test 145 meq/L 136-145 cgsx=112) POTASSIUM (BEAKER) (test 4.2 meq/L 3.5-5.1 chid=062) CHLORIDE (BEAKER) (test 116 meq/L 98-107 bugm=502) CO2 (BEAKER) (test 24 meq/L 22-29 hlvq=099) BLOOD UREA NITROGEN 24 mg/dL 7-21 (BEAKER) (test wxfj=583) CREATININE (BEAKER) (test 1.01 mg/dL 0.57-1.25 qtam=786) GLUCOSE RANDOM (BEAKER) 138 mg/dL 70-105 (test itzz=180) CALCIUM (BEAKER) (test 8.7 mg/dL 8.4-10.2 gmnc=473) EGFR (BEAKER) (test 70 mL/min/1.73 sq m ESTIMATED GFR IS NOT cnps=5536) ACCURATE CREATININE CLEARANCE IN PREDICTING GLOMERULAR FILTRATION RATE. ESTIMATED GFR IS NOT APPLICABLE FOR DIALYSIS PATIENTS. Check Serum Phosphorus level 4 hours after IV phosphorus replacement or 8 hours after PO replacementcompleted.CBC W/PLT COUNT & AUTO [id number] 03:47:00 Test Item Value Reference Range Comments WHITE BLOOD CELL COUNT (BEAKER) (test sozq=977) 4.5 K/ L 3.5-10.5 RED BLOOD CELL COUNT (BEAKER) (test slyg=495) 2.21 M/ L 4.63-6.08 HEMOGLOBIN (BEAKER) (test xkth=148) 7.2 GM/DL 13.7-17.5 HEMATOCRIT (BEAKER) (test dmrm=679) 23.5 % 40.1-51.0 MEAN CORPUSCULAR VOLUME (BEAKER) (test wuev=618) 106.3 fL 79.0-92.2 MEAN CORPUSCULAR HEMOGLOBIN (BEAKER) (test 32.6 pg 25.7-32.2 bdxf=899) MEAN CORPUSCULAR HEMOGLOBIN CONC (BEAKER) (test 30.6 GM/DL 32.3-36.5 ldjk=371) RED CELL DISTRIBUTION WIDTH (BEAKER) (test 14.7 % 11.6-14.4 xtfp=856) PLATELET COUNT (BEAKER) (test tmyp=633) 94 K/CU MM 150-450 MEAN PLATELET VOLUME (BEAKER) (test anei=597) 11.1 fL 9.4-12.4 NUCLEATED RED BLOOD CELLS (BEAKER) (test 0 /100 WBC 0-0 zvve=933) NEUTROPHILS RELATIVE PERCENT (BEAKER) (test 62 % yzps=528) LYMPHOCYTES RELATIVE PERCENT (BEAKER) (test 18 % jelj=310) MONOCYTES RELATIVE PERCENT (BEAKER) (test 12 % agqi=479) EOSINOPHILS RELATIVE PERCENT (BEAKER) (test 8 % wfpy=556) BASOPHILS RELATIVE PERCENT (BEAKER) (test 0 % zasg=885) NEUTROPHILS ABSOLUTE COUNT (BEAKER) (test 2.80 K/ L 1.78-5.38 jtwz=857) LYMPHOCYTES ABSOLUTE COUNT (BEAKER) (test 0.81 K/ L 1.32-3.57 xctk=548) MONOCYTES ABSOLUTE COUNT (BEAKER) (test njcr=835) 0.52 K/ L 0.30-0.82 EOSINOPHILS ABSOLUTE COUNT (BEAKER) (test 0.37 K/ L 0.04-0.54 gxia=320) BASOPHILS ABSOLUTE COUNT (BEAKER) (test wcut=937) 0.02 K/ L 0.01-0.08 IMMATURE GRANULOCYTES-RELATIVE PERCENT (BEAKER) 0 % 0-1 (test zjxs=3561) HEMOGLOBIN AND [id number] 03:46:00 Test Item Value Reference Range Comments HEMOGLOBIN (BEAKER) (test kxda=972) 7.7 GM/DL 13.7-17.5 HEMATOCRIT (BEAKER) (test ojgc=643) 24.8 % 40.1-51.0 POCT-GLUCOSE [id number] 01:04:00 Test Item Value Reference Range Comments POC-GLUCOSE METER (BEAKER) 150 mg/dL 70-110 TESTED AT [facility] [address] [facility] (test ythk=2025) [facility] [address] SPUTUM CULTURE + GRAM [id number] 19:57:00 Test Item Value Reference Range Comments CULTURE (BEAKER) (test No growth qihz=8081) GRAM STAIN RESULT (BEAKER) 4+ WBCs (test qyfg=0161) GRAM STAIN RESULT (BEAKER) 0-5 epithelial cells (test ojqr=37529) GRAM STAIN RESULT (BEAKER) <1+ gram positive cocci in (test vgyn=90889) pairs HEMOGLOBIN AND [id number] 16:09:00 Test Item Value Reference Range Comments HEMOGLOBIN (BEAKER) (test yulc=885) 7.8 GM/DL 13.7-17.5 HEMATOCRIT (BEAKER) (test ctvv=808) 25.1 % 40.1-51.0 POCT-GLUCOSE [id number] 16:06:00 Test Item Value Reference Range Comments POC-GLUCOSE METER (BEAKER) 143 mg/dL 70-110 TESTED AT [facility] [address] [facility] (test jqfm=6376) [facility] [address] POCT-GLUCOSE [id number] 11:55:00 Test Item Value Reference Range Comments POC-GLUCOSE METER (BEAKER) 148 mg/dL 70-110 TESTED AT [address] (test wyyf=3555) [facility] [address] RAD, ABDOMEN/KUB, 1 VIEW [id number] 10:26:00Reason for exam:->Check position of NGTFINAL REPORT [...] MDReport Verified Date/Time: 03/07/2018 10:26:54 Reading Location: [address] Transitional Reading Room HEPATIC FUNCTION [id number] 09:14 :00 Test Item Value Reference Range Comments TOTAL PROTEIN (BEAKER) (test mkxl=055) 5.5 gm/dL 6.0-8.3 ALBUMIN (BEAKER) (test chfq=6634) 2.9 g/dL 3.5-5.0 BILIRUBIN TOTAL (BEAKER) (test lylk=492) 1.8 mg/dL 0.2-1.2 BILIRUBIN DIRECT (BEAKER) (test jqnt=108) 0.7 mg/dL 0.1-0.5 ALKALINE PHOSPHATASE (BEAKER) (test holt=704) 95 U/L 40-150 AST (SGOT) (BEAKER) (test ypzi=054) 25 U/L 5-34 ALT (SGPT) (BEAKER) (test bfjd=226) 15 U/L 6-55 CBC W/PLT COUNT & AUTO [id number] 06:53:00 Test Item Value Reference Range Comments WHITE BLOOD CELL COUNT 4.6 K/ L 3.5-10.5 (BEAKER) (test omum=326) RED BLOOD CELL COUNT (BEAKER) 2.46 M/ L 4.63-6.08 (test qzci=010) HEMOGLOBIN (BEAKER) (test 8.0 GM/DL 13.7-17.5 zdck=949) HEMATOCRIT (BEAKER) (test 26.1 % 40.1-51.0 uhcb=530) MEAN CORPUSCULAR VOLUME 106.1 fL 79.0-92.2 Discordant result compared (BEAKER) (test ruok=468) to previous result; clinical correlation required. MEAN CORPUSCULAR HEMOGLOBIN 32.5 pg 25.7-32.2 (BEAKER) (test hyco=636) MEAN CORPUSCULAR HEMOGLOBIN 30.7 GM/DL 32.3-36.5 CONC (BEAKER) (test ezru=735) RED CELL DISTRIBUTION WIDTH 15.1 % 11.6-14.4 (BEAKER) (test fzye=193) PLATELET COUNT (BEAKER) (test 96 K/CU MM 150-450 rwng=969) MEAN PLATELET VOLUME (BEAKER) 10.6 fL 9.4-12.4 (test xobx=473) NUCLEATED RED BLOOD CELLS 0 /100 WBC 0-0 (BEAKER) (test bxlh=620) NEUTROPHILS RELATIVE PERCENT 67 % (BEAKER) (test ryod=738) LYMPHOCYTES RELATIVE PERCENT 14 % (BEAKER) (test ogfb=601) MONOCYTES RELATIVE PERCENT 12 % (BEAKER) (test edju=879) EOSINOPHILS RELATIVE PERCENT 6 % (BEAKER) (test ibnt=797) BASOPHILS RELATIVE PERCENT 0 % (BEAKER) (test upme=045) NEUTROPHILS ABSOLUTE COUNT 3.08 K/ L 1.78-5.38 (BEAKER) (test qrpq=596) LYMPHOCYTES ABSOLUTE COUNT 0.66 K/ L 1.32-3.57 (BEAKER) (test yygi=540) MONOCYTES ABSOLUTE COUNT 0.55 K/ L 0.30-0.82 (BEAKER) (test alyi=666) EOSINOPHILS ABSOLUTE COUNT 0.28 K/ L 0.04-0.54 (BEAKER) (test hfbe=621) BASOPHILS ABSOLUTE COUNT 0.01 K/ L 0.01-0.08 (BEAKER) (test nfzd=615) IMMATURE GRANULOCYTES-RELATIVE 0 % 0-1 PERCENT (BEAKER) (test dopy=1786) POCT-GLUCOSE [id number] 06:23:00 Test Item Value Reference Range Comments POC-GLUCOSE METER (BEAKER) 125 mg/dL 70-110 TESTED AT [facility] [address] (test hiqx=8519) [facility] [address] [id number] 05:53:00 Test Item Value Reference Range Comments PHOSPHORUS (BEAKER) (test pqjb=629) 2.7 mg/dL 2.3-4.7 Check Serum Phosphorus level 4 hours after IV phosphorus replacement or 8 hours after PO replacementcompleted.[id number] 05:53:00 Test Item Value Reference Range Comments MAGNESIUM (BEAKER) (test pepw=052) 2.6 mg/dL 1.6-2.6 Check Serum Phosphorus level 4 hours after IV phosphorus replacement or 8 hours after PO replacementcompleted.BASIC METABOLIC [id number] 05:53:00 Test Item Value Reference Range Comments SODIUM (BEAKER) (test 146 meq/L 136-145 nhia=230) POTASSIUM (BEAKER) (test 4.2 meq/L 3.5-5.1 dkse=767) CHLORIDE (BEAKER) (test 119 meq/L 98-107 cswo=318) CO2 (BEAKER) (test 23 meq/L 22-29 yobo=184) BLOOD UREA NITROGEN 20 mg/dL 7-21 (BEAKER) (test pvof=758) CREATININE (BEAKER) (test 0.93 mg/dL 0.57-1.25 quoz=120) GLUCOSE RANDOM (BEAKER) 121 mg/dL 70-105 (test smxz=865) CALCIUM (BEAKER) (test 8.6 mg/dL 8.4-10.2 ktgs=646) EGFR (BEAKER) (test 77 mL/min/1.73 sq m ESTIMATED GFR IS NOT wxhx=3209) ACCURATE CREATININE CLEARANCE IN PREDICTING GLOMERULAR FILTRATION RATE. ESTIMATED GFR IS NOT APPLICABLE FOR DIALYSIS PATIENTS. Check Serum Phosphorus level 4 hours after IV phosphorus replacement or 8 hours after PO replacementcompleted.HEMOGLOBIN AND [id number] 05:29:00 Test Item Value Reference Range Comments HEMOGLOBIN (BEAKER) (test yslp=140) 8.0 GM/DL 13.7-17.5 HEMATOCRIT (BEAKER) (test kqii=494) 26.1 % 40.1-51.0 HEMOGLOBIN AND [id number] 23:58:00 Test Item Value Reference Range Comments HEMOGLOBIN (BEAKER) (test jrpg=683) 6.8 GM/DL 13.7-17.5 HEMATOCRIT (BEAKER) (test xnxx=642) 22.5 % 40.1-51.0 MRSA [id number] 23:57:00 Test Item Value Reference Range Comments CULTURE (BEAKER) (test lfwe=0532) No MRSA isolated POCT-GLUCOSE [id number] 22:48:00 Test Item Value Reference Range Comments POC-GLUCOSE METER (BEAKER) 168 mg/dL 70-110 TESTED AT [address] (test xrap=9975) [place] [address] POCT-GLUCOSE [id number] 18:01:00 Test Item Value Reference Range Comments POC-GLUCOSE METER (BEAKER) 162 mg/dL 70-110 TESTED AT [address] (test dbmf=9969) [place] [address] HEMOGLOBIN AND [id number] 12:49:00 Test Item Value Reference Range Comments HEMOGLOBIN (BEAKER) (test jfcw=770) 7.4 GM/DL 13.7-17.5 HEMATOCRIT (BEAKER) (test kavu=457) 23.9 % 40.1-51.0 STOOL CULTURE + SHIGA [id number] 10:14:00 Test Item Value Reference Range Comments CULTURE (BEAKER) (test No Salmonella, Shigella or jyys=6416) Campylobacter isolated POCT-GLUCOSE [id number] 09:55:00 Test Item Value Reference Range Comments POC-GLUCOSE METER (BEAKER) 143 mg/dL 70-110 TESTED AT [address] (test tztb=8386) [place] [address] CBC W/PLT COUNT & AUTO [id number] 07:15:00 Test Item Value Reference Range Comments WHITE BLOOD CELL COUNT (BEAKER) (test unlg=243) 4.5 K/ L 3.5-10.5 RED BLOOD CELL COUNT (BEAKER) (test ghvn=415) 2.16 M/ L 4.63-6.08 HEMOGLOBIN (BEAKER) (test arnf=004) 7.1 GM/DL 13.7-17.5 HEMATOCRIT (BEAKER) (test xylq=513) 23.8 % 40.1-51.0 MEAN CORPUSCULAR VOLUME (BEAKER) (test lvik=702) 110.2 fL 79.0-92.2 MEAN CORPUSCULAR HEMOGLOBIN (BEAKER) (test 32.9 pg 25.7-32.2 cqqy=961) MEAN CORPUSCULAR HEMOGLOBIN CONC (BEAKER) (test 29.8 GM/DL 32.3-36.5 fyme=691) RED CELL DISTRIBUTION WIDTH (BEAKER) (test 14.4 % 11.6-14.4 nuhe=541) PLATELET COUNT (BEAKER) (test bgpb=992) 93 K/CU MM 150-450 MEAN PLATELET VOLUME (BEAKER) (test mrfz=764) 10.9 fL 9.4-12.4 NUCLEATED RED BLOOD CELLS (BEAKER) (test 0 /100 WBC 0-0 bsma=827) NEUTROPHILS RELATIVE PERCENT (BEAKER) (test 66 % mjfv=877) LYMPHOCYTES RELATIVE PERCENT (BEAKER) (test 14 % dsmh=825) MONOCYTES RELATIVE PERCENT (BEAKER) (test 10 % hdhm=568) EOSINOPHILS RELATIVE PERCENT (BEAKER) (test 9 % llcl=729) BASOPHILS RELATIVE PERCENT (BEAKER) (test 0 % vypb=578) NEUTROPHILS ABSOLUTE COUNT (BEAKER) (test 2.99 K/ L 1.78-5.38 laab=145) LYMPHOCYTES ABSOLUTE COUNT (BEAKER) (test 0.64 K/ L 1.32-3.57 eugs=419) MONOCYTES ABSOLUTE COUNT (BEAKER) (test nivo=894) 0.45 K/ L 0.30-0.82 EOSINOPHILS ABSOLUTE COUNT (BEAKER) (test 0.42 K/ L 0.04-0.54 frzp=597) BASOPHILS ABSOLUTE COUNT (BEAKER) (test ejdk=147) 0.01 K/ L 0.01-0.08 IMMATURE GRANULOCYTES-RELATIVE PERCENT (BEAKER) 0 % 0-1 (test uvwr=0339) [id number] 05:47:00 Test Item Value Reference Range Comments PHOSPHORUS (BEAKER) (test wfip=586) 2.8 mg/dL 2.3-4.7 Check Serum Phosphorus level 4 hours after IV phosphorus replacement or 8 hours after PO replacementcompleted.[id number] 05:47:00 Test Item Value Reference Range Comments MAGNESIUM (BEAKER) (test evwh=524) 2.6 mg/dL 1.6-2.6 Check Serum Phosphorus level 4 hours after IV phosphorus replacement or 8 hours after PO replacementcompleted.BASIC METABOLIC [id number] 05:47:00 Test Item Value Reference Range Comments SODIUM (BEAKER) (test 146 meq/L 136-145 rdgt=627) POTASSIUM (BEAKER) (test 4.1 meq/L 3.5-5.1 hbqc=351) CHLORIDE (BEAKER) (test 119 meq/L 98-107 xgki=720) CO2 (BEAKER) (test 23 meq/L 22-29 auyv=343) BLOOD UREA NITROGEN 21 mg/dL 7-21 (BEAKER) (test hpfc=481) CREATININE (BEAKER) (test 0.95 mg/dL 0.57-1.25 wmmd=544) GLUCOSE RANDOM (BEAKER) 122 mg/dL 70-105 (test ddfw=159) CALCIUM (BEAKER) (test 8.3 mg/dL 8.4-10.2 biml=015) EGFR (BEAKER) (test 75 mL/min/1.73 sq m ESTIMATED GFR IS NOT jabh=3249) ACCURATE CREATININE CLEARANCE IN PREDICTING GLOMERULAR FILTRATION RATE. ESTIMATED GFR IS NOT APPLICABLE FOR DIALYSIS PATIENTS. Check Serum Phosphorus level 4 hours after IV phosphorus replacement or 8 hours after PO replacementcompleted.RAD, CHEST, 1 VIEW, NON [id number] 05:00: 00Reason for exam:->resp failureShould this be [...] Jha Verified Date/Time: 03/06/2018 05:00:57 Reading Location: [address] Transitional Reading Room POCT-GLUCOSE [id number] 04:50:00 Test Item Value Reference Range Comments POC-GLUCOSE METER (BEAKER) 133 mg/dL 70-110 TESTED AT [address] (test prqq=2067) [facility] [address] HEMOGLOBIN AND [id number] 23:14:00 Test Item Value Reference Range Comments HEMOGLOBIN (BEAKER) (test wdif=044) 7.1 GM/DL 13.7-17.5 HEMATOCRIT (BEAKER) (test vjnf=167) 23.5 % 40.1-51.0 POCT-GLUCOSE [id number] 23:12:00 Test Item Value Reference Range Comments POC-GLUCOSE METER (BEAKER) 146 mg/dL 70-110 TESTED AT [address] (test ahab=1317) [place] [id number] POCT-GLUCOSE [id number] 22:11:00 Test Item Value Reference Range Comments POC-GLUCOSE METER (BEAKER) 164 mg/dL 70-110 TESTED AT [address] (test biec=6024) [place] [id number] HEMOGLOBIN AND [id number] 18:51:00 Test Item Value Reference Range Comments HEMOGLOBIN (BEAKER) (test svkh=306) 7.3 GM/DL 13.7-17.5 HEMATOCRIT (BEAKER) (test sjqk=362) 23.8 % 40.1-51.0 POCT-GLUCOSE [id number] 17:35:00 Test Item Value Reference Range Comments POC-GLUCOSE METER (BEAKER) 169 mg/dL 70-110 TESTED AT [address] (test rtrk=8978) [facility] [address] OCCULT BLOOD, [id number] 16:20:00 Test Item Value Reference Range Comments FECAL OCCULT BLOOD (BEAKER) (test cuej=944) Positive Negative HEPATIC FUNCTION [id number] 13:39:00 Test Item Value Reference Range Comments TOTAL PROTEIN (BEAKER) (test mzpx=928) 5.7 gm/dL 6.0-8.3 ALBUMIN (BEAKER) (test ggjb=9708) 3.2 g/dL 3.5-5.0 BILIRUBIN TOTAL (BEAKER) (test vnvu=556) 2.1 mg/dL 0.2-1.2 BILIRUBIN DIRECT (BEAKER) (test mnzt=193) 0.6 mg/dL 0.1-0.5 ALKALINE PHOSPHATASE (BEAKER) (test ojla=867) 98 U/L 40-150 AST (SGOT) (BEAKER) (test otjo=118) 24 U/L 5-34 ALT (SGPT) (BEAKER) (test pvwx=961) 14 U/L 6-55 BASIC METABOLIC [id number] 13:39:00 Test Item Value Reference Range Comments SODIUM (BEAKER) (test 149 meq/L 136-145 lwou=551) POTASSIUM (BEAKER) (test 3.7 meq/L 3.5-5.1 xwoc=401) CHLORIDE (BEAKER) (test 121 meq/L 98-107 quor=580) CO2 (BEAKER) (test 25 meq/L 22-29 nlgn=202) BLOOD UREA NITROGEN 25 mg/dL 7-21 (BEAKER) (test cwse=645) CREATININE (BEAKER) (test 1.01 mg/dL 0.57-1.25 chfp=051) GLUCOSE RANDOM (BEAKER) 164 mg/dL 70-105 (test biur=194) CALCIUM (BEAKER) (test 8.7 mg/dL 8.4-10.2 hdhi=795) EGFR (BEAKER) (test 70 mL/min/1.73 sq m ESTIMATED GFR IS NOT kymh=6166) ACCURATE CREATININE CLEARANCE IN PREDICTING GLOMERULAR FILTRATION RATE. ESTIMATED GFR IS NOT APPLICABLE FOR DIALYSIS PATIENTS. VANCOMYCIN LEVEL, [id number] 13:35:00 Test Item Value Reference Range Comments VANCOMYCIN RANDOM (BEAKER) (test pcdv=717) 10.1 ug/mL Reference Range: No NormalsHEMOGLOBIN AND [id number] 12:47:00 Test Item Value Reference Range Comments HEMOGLOBIN (BEAKER) (test nojp=242) 7.3 GM/DL 13.7-17.5 HEMATOCRIT (BEAKER) (test fubo=973) 23.7 % 40.1-51.0 POCT-GLUCOSE [id number] 12:14:00 Test Item Value Reference Range Comments POC-GLUCOSE METER (BEAKER) 189 mg/dL 70-110 TESTED AT [address] (test pgrw=1333) [facility] [address] ANTI-NUCLEAR ANTIBODY (STEPHY)2018-03-05 10:39:00 Test Item Value Reference Range Comments ANTI-NUCLEAR ANTIBODY (STEPHY) (BEAKER) (test Negative Negative pqol=317) Test performed by IFA method.Test performed by IFA method.B-TYPE NATRIURETIC FACTOR (BNP)2018-03-05 08:21:00 Test Item Value Reference Range Comments B-TYPE NATRIURETIC PEPTIDE (BEAKER) (test 222 pg/mL 0-100 npqu=560) [id number] 08:07:00 Test Item Value Reference Range Comments AMMONIA (BEAKER) (test yekj=392) 38 mol/L 18-72 RAD, CHEST, 1 VIEW, NON [id number] 06:28:00Reason for exam:->resp failureShould this be performed at the bedside?->YesFINAL REPORT RAD, CHEST, 1 VIEW, NON DEPT INDICATION: resp failure COMPARISON: Prior day's exam FINDINGS: Portable frontal view of the chest. IMPRESSION: Support Lines: Stable. Lungs and pleura: Unchanged airspace and pleural opacities. No pneumothorax.Heart and mediastinum: Stable contours. Stable surgical changes.Additional findings: None. Signed: David Jha Verified Date/Time: 03/05/2018 06:28:24 Reading Location: [address] Transitional Reading Room SHIGA TOXIN [id number] 06:12:00 Test Item Value Reference Range Comments SHIGA TOXIN 1 (BEAKER) (test lmgr=3458) Not detected Not detected SHIGA TOXIN 2 (BEAKER) (test qaka=8612) Not detected Not detected CBC W/PLT COUNT & AUTO [id number] 05:32:00 Test Item Value Reference Range Comments WHITE BLOOD CELL COUNT (BEAKER) (test naxy=314) 6.4 K/ L 3.5-10.5 RED BLOOD CELL COUNT (BEAKER) (test zgvj=934) 2.20 M/ L 4.63-6.08 HEMOGLOBIN (BEAKER) (test jblk=841) 7.4 GM/DL 13.7-17.5 HEMATOCRIT (BEAKER) (test itdc=005) 24.0 % 40.1-51.0 MEAN CORPUSCULAR VOLUME (BEAKER) (test auix=735) 109.1 fL 79.0-92.2 MEAN CORPUSCULAR HEMOGLOBIN (BEAKER) (test 33.6 pg 25.7-32.2 xlmp=057) MEAN CORPUSCULAR HEMOGLOBIN CONC (BEAKER) (test 30.8 GM/DL 32.3-36.5 swne=401) RED CELL DISTRIBUTION WIDTH (BEAKER) (test 15.0 % 11.6-14.4 kfet=036) PLATELET COUNT (BEAKER) (test cxjc=435) 90 K/CU MM 150-450 MEAN PLATELET VOLUME (BEAKER) (test gjto=466) 11.0 fL 9.4-12.4 NUCLEATED RED BLOOD CELLS (BEAKER) (test 0 /100 WBC 0-0 wbhm=658) NEUTROPHILS RELATIVE PERCENT (BEAKER) (test 71 % onnj=634) LYMPHOCYTES RELATIVE PERCENT (BEAKER) (test 12 % ajor=238) MONOCYTES RELATIVE PERCENT (BEAKER) (test 12 % rnxs=509) EOSINOPHILS RELATIVE PERCENT (BEAKER) (test 5 % ibec=752) BASOPHILS RELATIVE PERCENT (BEAKER) (test 0 % fjez=760) NEUTROPHILS ABSOLUTE COUNT (BEAKER) (test 4.55 K/ L 1.78-5.38 pjne=561) LYMPHOCYTES ABSOLUTE COUNT (BEAKER) (test 0.74 K/ L 1.32-3.57 nqpz=861) MONOCYTES ABSOLUTE COUNT (BEAKER) (test fpoq=329) 0.78 K/ L 0.30-0.82 EOSINOPHILS ABSOLUTE COUNT (BEAKER) (test 0.30 K/ L 0.04-0.54 azpp=103) BASOPHILS ABSOLUTE COUNT (BEAKER) (test fsnn=113) 0.02 K/ L 0.01-0.08 IMMATURE GRANULOCYTES-RELATIVE PERCENT (BEAKER) 0 % 0-1 (test hvza=9429) BASIC METABOLIC [id number] 05:31:00 Test Item Value Reference Range Comments SODIUM (BEAKER) (test 150 meq/L 136-145 xnsu=708) POTASSIUM (BEAKER) (test 3.8 meq/L 3.5-5.1 oyoq=285) CHLORIDE (BEAKER) (test 123 meq/L 98-107 vvdm=922) CO2 (BEAKER) (test 21 meq/L 22-29 zlox=591) BLOOD UREA NITROGEN 30 mg/dL 7-21 (BEAKER) (test upvs=993) CREATININE (BEAKER) (test 1.10 mg/dL 0.57-1.25 oqbj=703) GLUCOSE RANDOM (BEAKER) 148 mg/dL 70-105 (test zdvd=893) CALCIUM (BEAKER) (test 8.9 mg/dL 8.4-10.2 ddua=728) EGFR (BEAKER) (test 63 mL/min/1.73 sq m ESTIMATED GFR IS NOT zxqt=1763) ACCURATE CREATININE CLEARANCE IN PREDICTING GLOMERULAR FILTRATION RATE. ESTIMATED GFR IS NOT APPLICABLE FOR DIALYSIS PATIENTS. Check Serum Phosphorus level 4 hours after IV phosphorus replacement or 8 hours after PO replacementcompleted.BLOOD GAS, [id number] 05:29:00 Test Item Value Reference Range Comments PH ARTERIAL (BEAKER) (test ggmb=437) 7.42 7.35-7.45 PCO2 ARTERIAL (BEAKER) (test sfdm=524) 36 mmHg 35-45 PO2 ARTERIAL (BEAKER) (test gscb=157) 193 mmHg 80-90 O2 SATURATION ARTERIAL (BEAKER) (test gtut=428) 99.3 % 96.0-97.0 HCO3 ARTERIAL (BEAKER) (test fwhm=057) 23 mmol/L 21-29 BASE EXCESS ARTERIAL (BEAKER) (test bdnf=786) -1.6 mmol/L -2.0-3.0 PATIENT TEMPERATURE (BEAKER) (test tlpq=3113) 37.4 C FIO2 (BEAKER) (test sczj=0559) 30.0 % [id number] 05:28:00 Test Item Value Reference Range Comments PHOSPHORUS (BEAKER) (test iyjb=814) 2.4 mg/dL 2.3-4.7 Check Serum Phosphorus level 4 hours after IV phosphorus replacement or 8 hours after PO replacementcompleted.[id number] 05:28:00 Test Item Value Reference Range Comments MAGNESIUM (BEAKER) (test squx=695) 2.8 mg/dL 1.6-2.6 Check Serum Phosphorus level 4 hours after IV phosphorus replacement or 8 hours after PO replacementcompleted.POCT-GLUCOSE [id number] 04:14:00 Test Item Value Reference Range Comments POC-GLUCOSE METER (BEAKER) 164 mg/dL 70-110 TESTED AT [facility] [address] [facility] (test hrij=7791) [facility] [address] POCT-GLUCOSE [id number] 21:41:00 Test Item Value Reference Range Comments POC-GLUCOSE METER (BEAKER) 161 mg/dL 70-110 TESTED AT [place] [id number] [facility] (test wvve=6749) [place] [id number] POCT-GLUCOSE [id number] 17:49:00 Test Item Value Reference Range Comments POC-GLUCOSE METER (BEAKER) 163 mg/dL 70-110 TESTED AT [address] (test epuz=4794) [place] [id number] CT, [id number] 16:57:00FINAL REPORT CT of the abdomen and [...] splenomegaly. Status post cholecystectomy. Signed: Shama Melendez MDReport Verified Date/Time: 03/04/2018 16:57 :24 Reading Location: [facility] B1 C013Y CT Body Reading Room STOOL PATH [id number] 14: 52:00 Test Item Value Reference Range Comments PATHOGEN EXAM CHARGED (BEAKER) (test dhpm=3387) Done BASIC METABOLIC [id number] 12:28:00 Test Item Value Reference Range Comments SODIUM (BEAKER) (test 150 meq/L 136-145 rvtz=886) POTASSIUM (BEAKER) (test 4.2 meq/L 3.5-5.1 zini=212) CHLORIDE (BEAKER) (test 122 meq/L 98-107 rlan=178) CO2 (BEAKER) (test 26 meq/L 22-29 mvaf=105) BLOOD UREA NITROGEN 33 mg/dL 7-21 (BEAKER) (test veki=865) CREATININE (BEAKER) (test 1.23 mg/dL 0.57-1.25 iasv=064) GLUCOSE RANDOM (BEAKER) 129 mg/dL 70-105 (test zgfs=803) CALCIUM (BEAKER) (test 9.0 mg/dL 8.4-10.2 acev=013) EGFR (BEAKER) (test 56 mL/min/1.73 sq m ESTIMATED GFR IS NOT xgjz=1270) ACCURATE CREATININE CLEARANCE IN PREDICTING GLOMERULAR FILTRATION RATE. ESTIMATED GFR IS NOT APPLICABLE FOR DIALYSIS PATIENTS. HEMOGLOBIN AND [id number] 12:08:00 Test Item Value Reference Range Comments HEMOGLOBIN (BEAKER) (test vosl=588) 8.2 GM/DL 13.7-17.5 HEMATOCRIT (BEAKER) (test nubf=005) 26.2 % 40.1-51.0 POCT-GLUCOSE [id number] 11:16:00 Test Item Value Reference Range Comments POC-GLUCOSE METER (BEAKER) 159 mg/dL 70-110 TESTED AT [facility] [address] [place] [address] (test wtfw=3812) [facility] [address] LACTIC ACID, ARTERIAL, WHOLE [id number] 10:35:00 Test Item Value Reference Range Comments LACTATE BLOOD ARTERIAL (2) (BEAKER) (test 0.7 mmol/L 0.5-2.2 hmtm=3066) [id number] 08:12:00 Test Item Value Reference Range Comments AMMONIA (BEAKER) (test gsub=024) 44 mol/L 18-72 RAD, CHEST, 1 VIEW, NON [id number] 05:12:00Reason for exam:->resp failureShould this be performed [...] findings: None. Signed: David Jha Verified Date/Time: 03/04/2018 05:12 :43 Reading Location: [address] Transitional Reading Room BASIC METABOLIC [id number] 05:00:00 Test Item Value Reference Range Comments SODIUM (BEAKER) (test 152 meq/L 136-145 powy=205) POTASSIUM (BEAKER) (test 3.1 meq/L 3.5-5.1 ydix=335) CHLORIDE (BEAKER) (test 121 meq/L 98-107 mdjd=037) CO2 (BEAKER) (test 26 meq/L 22-29 guzl=083) BLOOD UREA NITROGEN 33 mg/dL 7-21 (BEAKER) (test lalv=820) CREATININE (BEAKER) (test 1.17 mg/dL 0.57-1.25 bhyu=782) GLUCOSE RANDOM (BEAKER) 136 mg/dL 70-105 (test lvwk=588) CALCIUM (BEAKER) (test 9.2 mg/dL 8.4-10.2 uozp=085) EGFR (BEAKER) (test 59 mL/min/1.73 sq m ESTIMATED GFR IS NOT ujxp=8755) ACCURATE CREATININE CLEARANCE IN PREDICTING GLOMERULAR FILTRATION RATE. ESTIMATED GFR IS NOT APPLICABLE FOR DIALYSIS PATIENTS. [id number] 04:55:00 Test Item Value Reference Range Comments MAGNESIUM (BEAKER) (test vqkm=730) 3.1 mg/dL 1.6-2.6 CBC W/PLT COUNT & AUTO [id number] 04:38:00 Test Item Value Reference Range Comments WHITE BLOOD CELL COUNT (BEAKER) (test pljo=307) 7.6 K/ L 3.5-10.5 RED BLOOD CELL COUNT (BEAKER) (test zpbk=136) 2.39 M/ L 4.63-6.08 HEMOGLOBIN (BEAKER) (test nclc=655) 7.8 GM/DL 13.7-17.5 HEMATOCRIT (BEAKER) (test clhg=921) 25.3 % 40.1-51.0 MEAN CORPUSCULAR VOLUME (BEAKER) (test boex=934) 105.9 fL 79.0-92.2 MEAN CORPUSCULAR HEMOGLOBIN (BEAKER) (test 32.6 pg 25.7-32.2 wzbh=280) MEAN CORPUSCULAR HEMOGLOBIN CONC (BEAKER) (test 30.8 GM/DL 32.3-36.5 wzka=989) RED CELL DISTRIBUTION WIDTH (BEAKER) (test 15.6 % 11.6-14.4 gluh=140) PLATELET COUNT (BEAKER) (test ywwa=033) 119 K/CU MM 150-450 MEAN PLATELET VOLUME (BEAKER) (test yzou=611) 10.8 fL 9.4-12.4 NUCLEATED RED BLOOD CELLS (BEAKER) (test 0 /100 WBC 0-0 jpdr=670) NEUTROPHILS RELATIVE PERCENT (BEAKER) (test 72 % lfcz=057) LYMPHOCYTES RELATIVE PERCENT (BEAKER) (test 10 % hcsh=745) MONOCYTES RELATIVE PERCENT (BEAKER) (test 13 % ceox=384) EOSINOPHILS RELATIVE PERCENT (BEAKER) (test 4 % swtl=203) BASOPHILS RELATIVE PERCENT (BEAKER) (test 1 % tclj=157) NEUTROPHILS ABSOLUTE COUNT (BEAKER) (test 5.49 K/ L 1.78-5.38 rsvz=929) LYMPHOCYTES ABSOLUTE COUNT (BEAKER) (test 0.78 K/ L 1.32-3.57 fuzx=215) MONOCYTES ABSOLUTE COUNT (BEAKER) (test 0.98 K/ L 0.30-0.82 kaii=575) EOSINOPHILS ABSOLUTE COUNT (BEAKER) (test 0.31 K/ L 0.04-0.54 siwc=057) BASOPHILS ABSOLUTE COUNT (BEAKER) (test 0.04 K/ L 0.01-0.08 mtam=244) IMMATURE GRANULOCYTES-RELATIVE PERCENT (BEAKER) 0 % 0-1 (test mmaf=2454) BLOOD GAS, [id number] 04:23:00 Test Item Value Reference Range Comments PH ARTERIAL (BEAKER) (test hflh=287) 7.47 7.35-7.45 PCO2 ARTERIAL (BEAKER) (test jrnz=834) 33 mmHg 35-45 PO2 ARTERIAL (BEAKER) (test qvbt=097) 278 mmHg 80-90 O2 SATURATION ARTERIAL (BEAKER) (test ijwr=279) 99.7 % 96.0-97.0 HCO3 ARTERIAL (BEAKER) (test zvdo=666) 24 mmol/L 21-29 BASE EXCESS ARTERIAL (BEAKER) (test vukj=094) 0.0 mmol/L -2.0-3.0 PATIENT TEMPERATURE (BEAKER) (test epmv=9021) 36.2 C FIO2 (BEAKER) (test uwoq=7808) 40.0 % POCT-GLUCOSE [id number] 22:12:00 Test Item Value Reference Range Comments POC-GLUCOSE METER (BEAKER) 171 mg/dL 70-110 TESTED AT [facility] [address] [facility] (test yqjo=7109) [facility] [address] TROPONIN [id number] 22:08:00 Test Item Value Reference Range Comments TROPONIN I (BEAKER) (test kepk=236) 0.08 ng/mL 0.00-0.03 Troponin I (TnI) levels [...] neurological disease, and persistent tachyarrhythmia.HEPATITIS A ANTIBODY, [id number] 20: 40:00 Test Item Value Reference Range Comments HEPATITIS A IGG ANTIBODY (BEAKER) (test ltxl=6109) Reactive Nonreactive ALPHA FETOPROTEIN (AFP), TUMOR [id number] 20:40:00 Test Item Value Reference Range Comments ALPHA-FETOPROTEIN (BEAKER) (test iocd=0845) < ng/mL <10.0 CARCINOEMBRYONIC ANTIGEN (CEA)2018-03-03 20:36:00 Test Item Value Reference Range Comments CARCINOEMBRYONIC ANTIGEN (BEAKER) (test puuf=223) 2.2 ng/mL 0.0-5.0 HEPATITIS B CORE ANTIBODY, [id number] 20:36:00 Test Item Value Reference Range Comments HEPATITIS B CORE TOTAL ANTIBODY (BEAKER) (test Nonreactive Nonreactive apoh=504) HEPATITIS B SURFACE [id number] 20:23:00 Test Item Value Reference Range Comments HEPATITIS B SURFACE ANTIBODY (BEAKER) (test < mIU/mL <8.0 lrim=856) HEPATITIS B SURFACE [id number] 20:22:00 Test Item Value Reference Range Comments HEPATITIS B SURFACE ANTIGEN (2) (BEAKER) (test Nonreactive Nonreactive kkfn=0239) HEPATITIS C [id number] 20:22:00 Test Item Value Reference Range Comments HEPATITIS C ANTIBODY (BEAKER) (test fdsr=526) Nonreactive Nonreactive POCT-GLUCOSE [id number] 19:30:00 Test Item Value Reference Range Comments POC-GLUCOSE METER (BEAKER) 169 mg/dL 70-110 TESTED AT [address] (test rfgm=6728) [facility] [address] RAD, CHEST, 1 VIEW, NON [id number] 19:12:00Reason for exam:-> intubatedShould this be performed [...] Verified Date/Time: 03/03/2018 19: 12:40 Reading Location: [address] Reading Room FECAL [id number] 18:56:00 Test Item Value Reference Range Comments FECAL LEUKOCYTES (BEAKER) No fecal leukocytes seen No fecal leukocytes seen (test ofwz=347) RAD, ABDOMEN/KUB, 1 VIEW [id number] 18:41:00Reason for exam:->NGT placementFINAL REPORT Abdomen date 03/03/2018 Comment: Frontal view of the abdomen demonstrates a nasogastric tube present with tip noted in the in the body of the stomach. Signed: Israel Barr MDReport Verified Date/Time: 03/03/2018 18:41:41 Reading Location: [facility] C013W Consult ReadingRoom 06: 41 [id number] 18:13:00 Test Item Value Reference Range Comments FERRITIN (BEAKER) (test cwzk=505) 28 ng/mL 5-275 TROPONIN [id number] 17:26:00 Test Item Value Reference Range Comments TROPONIN I (BEAKER) (test lvyw=543) 0.06 ng/mL 0.00-0.03 Troponin I (TnI) levels [...] acute neurological disease, and persistent tachyarrhythmia.HEPATIC FUNCTION [id number] 17:19: 00 Test Item Value Reference Range Comments TOTAL PROTEIN (BEAKER) (test xcaf=814) 6.5 gm/dL 6.0-8.3 ALBUMIN (BEAKER) (test vmbh=8441) 3.7 g/dL 3.5-5.0 BILIRUBIN TOTAL (BEAKER) (test fdfd=955) 2.5 mg/dL 0.2-1.2 BILIRUBIN DIRECT (BEAKER) (test bovv=304) 0.8 mg/dL 0.1-0.5 ALKALINE PHOSPHATASE (BEAKER) (test cxtw=344) 107 U/L 40-150 AST (SGOT) (BEAKER) (test fone=683) 24 U/L 5-34 ALT (SGPT) (BEAKER) (test rqhp=088) 13 U/L 6-55 Specimen slightly ictericIRON, TIBC, % SAT. (WITHOUT FERRITIN)2018-03-03 17:19: 00 Test Item Value Reference Range Comments IRON (BEAKER) (test nysc=436) 78.0 ug/dL 40.0-160.0 TOTAL IRON BINDING CAPACITY (BEAKER) (test 294 ug/dL 250-450 ncup=049) IRON % SATURATION (2) (BEAKER) (test tnmc=5459) 27 % 20-55 BASIC METABOLIC [id number] 17:19:00 Test Item Value Reference Range Comments SODIUM (BEAKER) (test 149 meq/L 136-145 aplj=577) POTASSIUM (BEAKER) (test 3.8 meq/L 3.5-5.1 blcn=569) CHLORIDE (BEAKER) (test 117 meq/L 98-107 zmen=859) CO2 (BEAKER) (test 23 meq/L 22-29 frsf=599) BLOOD UREA NITROGEN 30 mg/dL 7-21 (BEAKER) (test hgre=251) CREATININE (BEAKER) (test 1.06 mg/dL 0.57-1.25 mkpo=731) GLUCOSE RANDOM (BEAKER) 171 mg/dL 70-105 (test oevf=138) CALCIUM (BEAKER) (test 9.3 mg/dL 8.4-10.2 kpir=960) EGFR (BEAKER) (test 66 mL/min/1.73 sq m ESTIMATED GFR IS NOT ibhz=3733) ACCURATE CREATININE CLEARANCE IN PREDICTING GLOMERULAR FILTRATION RATE. ESTIMATED GFR IS NOT APPLICABLE FOR DIALYSIS PATIENTS. Specimen slightly ictericHEMOGLOBIN AND [id number] 17:15:00 Test Item Value Reference Range Comments HEMOGLOBIN (BEAKER) (test kxyb=078) 8.3 GM/DL 13.7-17.5 HEMATOCRIT (BEAKER) (test tasn=154) 25.7 % 40.1-51.0 PROTHROMBIN [id number] 16:53:00 Test Item Value Reference Range Comments PROTIME (BEAKER) (test luxu=798) 16.1 seconds 11.7-14.7 INR (BEAKER) (test gzxc=167) 1.3 <=5.9 RECOMMENDED COUMADIN/WARFARIN INR THERAPY RANGESSTANDARD DOSE: 2.0 - 3.0 Includes: PROPHYLAXIS forvenous thrombosis, systemic embolization; TREATMENT for venous thrombosis and/or pulmonary embolus.HIGH RISK: Target INR is 2.5-3.5 for patients with mechanical heart valves.[id number] 16:53:00 Test Item Value Reference Range Comments FIBRINOGEN LEVEL (BEAKER) (test rmty=049) 333 mg/dl 225-434 [id number] 16:51:00 Test Item Value Reference Range Comments PROCALCITONIN (BEAKER) (test isyh=8000) < ng/mL <0.05 SEPSIS RISK (ng/mL)Low: 0.05-0.50Intermediate: 0.51-2.00High: & gt;=2.01BLOOD GAS, [id number] 16:07:00 Test Item Value Reference Range Comments PH ARTERIAL (BEAKER) (test jdju=151) 7.51 7.35-7.45 PCO2 ARTERIAL (BEAKER) (test btuw=497) 32 mmHg 35-45 PO2 ARTERIAL (BEAKER) (test aekz=348) 317 mmHg 80-90 O2 SATURATION ARTERIAL (BEAKER) (test zrgt=140) 99.8 % 96.0-97.0 HCO3 ARTERIAL (BEAKER) (test dsaw=128) 25 mmol/L 21-29 BASE EXCESS ARTERIAL (BEAKER) (test mqmc=834) 2.0 mmol/L -2.0-3.0 PATIENT TEMPERATURE (BEAKER) (test zsob=2058) 37.5 C FIO2 (BEAKER) (test vqnf=8831) 60.0 % EEG AWAKE AND [id number] 14:50:00Reason for exam:->altered mental statusEEG REPORT: Kaylee Arriaga[facility] Date of EEDate of report: EEG start time: 1216EEG end time: 1237EEG #: [id number] No: [id number] ICD Code: #: R41.82 Altered mental status, unspecified (ICD 9: 780.97)CPT Code: #: 43942: 03. EEG coma or sleep only; 20-40 [...] also be associated withother settings of widespread [employer] insults, including the aftermath of prolonged seizures. Intermittent attenuations reflect cortical suppression.Clinical Fellow: Henri YañezNeurophysiologist: Wil Mathias 02: 50 PMPOCT-LACTIC ACID, [id number] 14:13:00 Test Item Value Reference Range Comments POC-LACTIC ACID, ARTERIAL 1.2 mmol/L 0.4-1.3 TESTED AT [place] [address] [address] (BEAKER) (test puob=8525) [place] [address] POCT-BLOOD GASES, [id number] 14:13:00 Test Item Value Reference Range Comments TEMP, CELSIUS-POC (BEAKER) 37.0 (test gjfl=7851) FIO2-POC (BEAKER) (test TESTED AT [address] fzhn=4512) [place] [address] PH, ARTERIAL-POC (BEAKER) 7.496 7.350-7.450 (test teto=8163) PCO2, ARTERIAL-POC (BEAKER) 31.0 mm Hg 35.0-45.0 (test sbpt=5189) PO2, ARTERIAL-POC (BEAKER) 66.0 mm Hg 80.0-90.0 (test dpwr=7341) SO2, ARTERIAL-POC (BEAKER) 95.0 % 96.0-97.0 (test buif=3537) HCO3, ARTERIAL-POC (BEAKER) 23.9 meq/L 21.0-29.0 (test msbp=2258) BASE EXCESS, ARTERIAL-POC 1.0 meq/L -2.0-3.0 (BEAKER) (test mnzz=5053) [id number] 14:13:00 Test Item Value Reference Range Comments POC-SODIUM (BEAKER) (test 151 meq/L 135-148 TESTED AT [address] eaee=3116) [place] [address] [id number] 14:13:00 Test Item Value Reference Range Comments POC-POTASSIUM (BEAKER) (test 3.7 meq/L 3.6-5.5 TESTED AT [address] zkwy=7286) [place] [address] [id number] 14:13:00 Test Item Value Reference Range Comments POC-GLUCOSE (BEAKER) (test 170 mg/dL 70-110 TESTED AT [address] wvxt=9251) [place] [address] POCT-CALCIUM [id number] 14:13:00 Test Item Value Reference Range Comments POC-CALCIUM IONIZED (BEAKER) 1.20 mmol/L 1.12-1.27 TESTED AT [address] (test sntq=9754) [place] [address] [id number] 14:13:00 Test Item Value Reference Range Comments POC-HEMATOCRIT (BEAKER) (test 24 % 40-50 TESTED AT [address] lfgu=2573) [place] [address] [id number] 14:13:00 Test Item Value Reference Range Comments POC-HEMOGLOBIN (BEAKER) 8.2 g/dL 13.0-16.8 TESTED [address] (test aotx=2676) [place] [address]TESTED AT [place] [address] VITAMIN B12 AND [id number] 13:00:00 Test Item Value Reference Range Comments VITAMIN B12 (BEAKER) (test jcxr=486) 715 pg/mL 213-816 FOLATE (BEAKER) (test hdqn=602) 17.0 ng/mL >=7.0 POCT-GLUCOSE [id number] 12:55:00 Test Item Value Reference Range Comments POC-GLUCOSE METER (BEAKER) 190 mg/dL 70-110 TESTED AT [address] (test foil=4488) [place] [address] [id number] 11:41:00 Test Item Value Reference Range Comments PROCALCITONIN (BEAKER) (test ypou=1178) < ng/mL <0.05 SEPSIS RISK (ng/mL)Low: 0.05-0.50Intermediate: 0.51-2.00High: & gt;=2.01URINALYSIS W/ REFLEX URINE [id number] 11:27:00 Test Item Value Reference Range Comments COLOR (BEAKER) (test bvej=275) Yellow CLARITY (BEAKER) (test ibxe=486) Clear SPECIFIC GRAVITY UA (BEAKER) (test ulun=513) 1.016 1.001-1.035 PH UA (BEAKER) (test tcjz=878) 6.5 5.0-8.0 PROTEIN UA (BEAKER) (test gtaf=526) 50 mg/dL Negative GLUCOSE UA (BEAKER) (test stqq=539) Negative Negative KETONES UA (BEAKER) (test fyfg=454) Trace Negative BILIRUBIN UA (BEAKER) (test kcma=157) Negative Negative BLOOD UA (BEAKER) (test seaw=229) Negative Negative NITRITE UA (BEAKER) (test rxue=247) Negative Negative LEUKOCYTE ESTERASE UA (BEAKER) (test ekbo=355) Negative Negative UROBILINOGEN UA (BEAKER) (test pxph=120) 0.2 mg/dL 0.2-1.0 RBC UA (BEAKER) (test hexm=155) 4 /HPF WBC UA (BEAKER) (test hwfd=565) 2 /HPF BACTERIA (BEAKER) (test hunt=755) Moderate SQUAMOUS EPITHELIAL (BEAKER) (test nfnm=378) 1 /HPF SOURCE(BEAKER) (test xtnf=4810) TSH/FREE T4 IF [id number] 11:19:00 Test Item Value Reference Range Comments THYROID STIMULATING HORMONE (BEAKER) (test 2.67 uIU/mL 0.35-4.94 oaas=078) TROPONIN [id number] 11:04:00 Test Item Value Reference Range Comments TROPONIN I (BEAKER) (test ciee=003) 0.07 ng/mL 0.00-0.03 Troponin I (TnI) levels [...] failure, acidosis, acute neurological disease, and persistent tachyarrhythmia.[id number] 11:00:00 Test Item Value Reference Range Comments SODIUM (BEAKER) (test zncg=444) 148 meq/L 136-145 HEMOGLOBIN [id number] 10:53:00 Test Item Value Reference Range Comments HEMOGLOBIN A1C (BEAKER) (test dblg=859) 6.2 % 4.3-6.1 [id number] 10:45:00 Test Item Value Reference Range Comments AMMONIA (BEAKER) (test ocmj=949) 98 mol/L 18-72 C. DIFFICILE GDH [id number] 09:57:00 Test Item Value Reference Range Comments CDT TOXIN (test Negative Negative bmsy=[id number]) CDT GDH ANTIGEN (test Positive Negative C. difficile present but toxin mwsx=[id number]) not detected. Indicates colonization with non-toxigenic strain or level of toxin below detectable levels. No need for enteric isolation. Treatment is rarely needed (only when strong clinical suspicion for Clostridium difficile infection) Testing performed by [employer] Rapid Cassette Assay. For GDH, published sensitivity of the assay is 98.7% compared to cytotoxicity testing. For Toxin AB, published sensitivity is 87.8% and specificity 99.4% compared to cytotoxicity testing.Verification of kit performance was done by the [facility] Microbiology Lab prior to clinical use.BASIC METABOLIC [id number] 07:28:00 Test Item Value Reference Range Comments SODIUM (BEAKER) (test 133 meq/L 136-145 wezw=409) POTASSIUM (BEAKER) (test 2.8 meq/L 3.5-5.1 hjak=192) CHLORIDE (BEAKER) (test 108 meq/L 98-107 mdbx=337) CO2 (BEAKER) (test 18 meq/L 22-29 sega=222) BLOOD UREA NITROGEN 25 mg/dL 7-21 (BEAKER) (test axiv=242) CREATININE (BEAKER) (test 0.78 mg/dL 0.57-1.25 frwp=881) GLUCOSE RANDOM (BEAKER) 124 mg/dL 70-105 (test wpdb=389) CALCIUM (BEAKER) (test 7.1 mg/dL 8.4-10.2 ejvj=363) EGFR (BEAKER) (test 94 mL/min/1.73 sq m ESTIMATED GFR IS NOT pjey=9458) ACCURATE CREATININE CLEARANCE IN PREDICTING GLOMERULAR FILTRATION RATE. ESTIMATED GFR IS NOT APPLICABLE FOR DIALYSIS PATIENTS. B-TYPE NATRIURETIC FACTOR (BNP)2018-03-03 06:58:00 Test Item Value Reference Range Comments B-TYPE NATRIURETIC PEPTIDE (BEAKER) (test 444 pg/mL 0-100 nlxe=135) [id number] 06:52:00 Test Item Value Reference Range Comments PHOSPHORUS (BEAKER) (test xlna=391) 2.3 mg/dL 2.3-4.7 [id number] 06:52:00 Test Item Value Reference Range Comments MAGNESIUM (BEAKER) (test iuzi=573) 1.7 mg/dL 1.6-2.6 CBC (HEMOGRAM ONLY)2018-03-03 06:38:00 Test Item Value Reference Range Comments WHITE BLOOD CELL COUNT (BEAKER) (test lmxr=732) 5.8 K/ L 3.5-10.5 RED BLOOD CELL COUNT (BEAKER) (test uhqz=831) 2.09 M/ L 4.63-6.08 HEMOGLOBIN (BEAKER) (test mvnl=703) 7.0 GM/DL 13.7-17.5 HEMATOCRIT (BEAKER) (test msqd=584) 22.2 % 40.1-51.0 MEAN CORPUSCULAR VOLUME (BEAKER) (test dels=705) 106.2 fL 79.0-92.2 MEAN CORPUSCULAR HEMOGLOBIN (BEAKER) (test 33.5 pg 25.7-32.2 lktw=030) MEAN CORPUSCULAR HEMOGLOBIN CONC (BEAKER) (test 31.5 GM/DL 32.3-36.5 egwj=644) RED CELL DISTRIBUTION WIDTH (BEAKER) (test 14.4 % 11.6-14.4 qaqt=675) PLATELET COUNT (BEAKER) (test eruc=406) 91 K/CU MM 150-450 MEAN PLATELET VOLUME (BEAKER) (test zakv=361) 10.9 fL 9.4-12.4 NUCLEATED RED BLOOD CELLS (BEAKER) (test 0 /100 WBC 0-0 syex=728) MR, MRA, BRAIN, WITHOUT [id number] 05:21:00Reason for exam:-> Ischemic Stroke EvaluationFINAL REPORT MRI Brain without contrast Clinical History: Ischemic Stroke EvaluationAMS, Afib Technique: MRI of the brain utilizing axial T2, FLAIR, GRE, DWI; sagittal and coronal T1- weighted images. MRA of the head utilizing 3-D ddku-yg-shzvmm technique, with 3- D reconstructions. MRA of the neck utilizing 2-D and 3-D ofhs-kj-dfsxpv technique, with 3-D reconstructions. Comparisons: None Findings:MRI [...] MRA head: No evidence for a major [place] proximal branch vessel occlusion. MRA [...] MDReport Verified Date/Time: 03/03/2018 05:21:46 Reading Location: [address] Transitional Reading Room MR, MRA, NECK, WITHOUT IV [id number] 05:21: 00Reason for exam:->Ischemic Stroke EvaluationFINAL REPORT MRI Brain without contrast Clinical History: Ischemic Stroke EvaluationAMS, Afib Technique: MRI of the brain utilizing axial T2, FLAIR, GRE, DWI; sagittal and coronal T1-weighted images. MRA of the head utilizing 3-D time -of-flight technique, with 3-D reconstructions. MRA of the neck utilizing 2-D and 3-D idjc-nx-rgvttb technique, with 3-D reconstructions. Comparisons: None Findings:MRI [...] MRA head: No evidence for a major [place] proximal branch vessel occlusion. MRA [...] MDReport Verified Date/Time: 03/03/2018 05:21:46 Reading Location: [address] Reading Room MR, BRAIN, WITHOUT [id number] 05 :21:00Reason for exam:->Ischemic Stroke EvaluationFINAL REPORT MRI Brain without contrast Clinical History: Ischemic Stroke EvaluationAMS, Afib Technique: MRI of the brain utilizing axial T2, FLAIR, GRE, DWI; sagittal and coronal T1-weighted images. MRA of the head utilizing 3-D time -of-flight technique, with 3-D reconstructions. MRA of the neck utilizing 2-D and 3-D sfxp-fr-hqglsf technique, with 3-D reconstructions. Comparisons: None Findings:MRI [...] MRA head: No evidence for a major [place] proximal branch vessel occlusion. MRA [...] vertebral arteries by NASCETcriteria. Signed: David Jha Verified Date/Time: 03/03/2018 05:21:46 Reading Location: [address] Reading Room POCT-GLUCOSE [id number] 05:15:00 Test Item Value Reference Range Comments POC-GLUCOSE METER (BEAKER) 207 mg/dL 70-110 TESTED AT [address] (test oian=9008) [facility] [address] RAD, CHEST, 1 VIEW, NON [id number] 01:11:00Reason for exam:->AMSShould this be performed at [...] the right upper quadrant. Signed: Dawson Barron MDReport Verified Date/Time: 2018 01:11:47 Reading Location: [address] Reading Room URINALYSIS WITH MICROSCOPIC IF [id number] 00:58:00 Test Item Value Reference Range Comments COLOR (BEAKER) (test tmir=645) Yellow CLARITY (BEAKER) (test zean=546) Clear SPECIFIC GRAVITY UA (BEAKER) (test xqqq=972) 1.018 1.001-1.035 PH UA (BEAKER) (test zzmq=993) 6.5 5.0-8.0 PROTEIN UA (BEAKER) (test kqek=520) 30 mg/dL Negative GLUCOSE UA (BEAKER) (test jacg=341) Negative Negative KETONES UA (BEAKER) (test mmpt=608) Trace Negative BILIRUBIN UA (BEAKER) (test nfyu=223) Negative Negative BLOOD UA (BEAKER) (test umzz=754) Negative Negative NITRITE UA (BEAKER) (test vodn=880) Negative Negative LEUKOCYTE ESTERASE UA (BEAKER) (test rpao=981) Negative Negative UROBILINOGEN UA (BEAKER) (test ylbc=154) 0.2 mg/dL 0.2-1.0 SOURCE(BEAKER) (test zebd=2275) URINALYSIS [id number] 00:58:00 Test Item Value Reference Range Comments RBC UA (BEAKER) (test cduj=121) 1 /HPF WBC UA (BEAKER) (test lxkk=427) 1 /HPF SQUAMOUS EPITHELIAL (BEAKER) (test bmgp=403) < /HPF AMORPHOUS CRYSTALS (BEAKER) (test mlne=8529) Occasional CT, BRAIN/STROKE [id number] 23:16:00FINAL REPORT CT Head without contrast CLINICAL [...] Jha Verified Date/Time: 03/02/2018 23:16:55 Reading Location: [address] Reading Room LACTIC ACID, VENOUS, WHOLE [id number] 22:01:00 Test Item Value Reference Range Comments LACTATE BLOOD VENOUS (2) (BEAKER) (test 1.6 mmol/L 0.5-2.2 qdwg=4391) POCT-GLUCOSE [id number] 21:31:00 Test Item Value Reference Range Comments POC-GLUCOSE METER (BEAKER) 207 mg/dL 70-110 TESTED AT [address] (test jeje=6102) [facility] [address] OCCULT BLOOD, [id number] 19:48:00 Test Item Value Reference Range Comments FECAL OCCULT BLOOD (BEAKER) (test khwb=364) Positive Negative BASIC METABOLIC [id number] 17:26:00 Test Item Value Reference Range Comments SODIUM (BEAKER) (test 147 meq/L 136-145 vmra=178) POTASSIUM (BEAKER) (test 3.9 meq/L 3.5-5.1 pvgd=461) CHLORIDE (BEAKER) (test 114 meq/L 98-107 wiub=159) CO2 (BEAKER) (test 24 meq/L 22-29 ckjx=657) BLOOD UREA NITROGEN 33 mg/dL 7-21 (BEAKER) (test klkv=335) CREATININE (BEAKER) (test 1.12 mg/dL 0.57-1.25 ecod=010) GLUCOSE RANDOM (BEAKER) 176 mg/dL 70-105 (test simn=441) CALCIUM (BEAKER) (test 9.6 mg/dL 8.4-10.2 scbj=259) EGFR (BEAKER) (test 62 mL/min/1.73 sq m ESTIMATED GFR IS NOT ngbj=8857) ACCURATE CREATININE CLEARANCE IN PREDICTING GLOMERULAR FILTRATION RATE. ESTIMATED GFR IS NOT APPLICABLE FOR DIALYSIS PATIENTS. HEMOGLOBIN AND [id number] 17:09:00 Test Item Value Reference Range Comments HEMOGLOBIN (BEAKER) (test bilr=870) 8.2 GM/DL 13.7-17.5 HEMATOCRIT (BEAKER) (test xdfb=480) 25.7 % 40.1-51.0 POCT-GLUCOSE [id number] 16:40:00 Test Item Value Reference Range Comments POC-GLUCOSE METER (BEAKER) 212 mg/dL 70-110 TESTED AT [facility] [address] [facility] (test tsew=6183) [facility] [address] CT, BRAIN, WITHOUT [id number] 12:26:00FINAL REPORT CT head without contrast 03/02/2018 [...] Gaona Verified Date/Time: 03/02/2018 12:26:23 Reading Location: [facility] C013V Neuro Reading Room HEMOGLOBIN AND [id number] 12:14:00 Test Item Value Reference Range Comments HEMOGLOBIN (BEAKER) (test ijuf=566) 8.3 GM/DL 13.7-17.5 HEMATOCRIT (BEAKER) (test gclr=599) 25.9 % 40.1-51.0 POCT-GLUCOSE [id number] 10:26:00 Test Item Value Reference Range Comments POC-GLUCOSE METER (BEAKER) 178 mg/dL 70-110 TESTED AT [facility] [address] [facility] (test royx=0435) [facility] [address] [id number] 05:10:00 Test Item Value Reference Range Comments MAGNESIUM (BEAKER) (test iyqg=423) 2.2 mg/dL 1.6-2.6 BASIC METABOLIC [id number] 05:10:00 Test Item Value Reference Range Comments SODIUM (BEAKER) (test 147 meq/L 136-145 ndwt=750) POTASSIUM (BEAKER) (test 3.3 meq/L 3.5-5.1 etiy=744) CHLORIDE (BEAKER) (test 111 meq/L 98-107 ebde=639) CO2 (BEAKER) (test 25 meq/L 22-29 etdw=780) BLOOD UREA NITROGEN 37 mg/dL 7-21 (BEAKER) (test qucx=429) CREATININE (BEAKER) (test 1.06 mg/dL 0.57-1.25 jaia=006) GLUCOSE RANDOM (BEAKER) 150 mg/dL 70-105 (test tyfu=409) CALCIUM (BEAKER) (test 9.3 mg/dL 8.4-10.2 aggj=435) EGFR (BEAKER) (test 66 mL/min/1.73 sq m ESTIMATED GFR IS NOT chrv=6894) ACCURATE CREATININE CLEARANCE IN PREDICTING GLOMERULAR FILTRATION RATE. ESTIMATED GFR IS NOT APPLICABLE FOR DIALYSIS PATIENTS. CBC (HEMOGRAM ONLY)2018-03-02 04:53:00 Test Item Value Reference Range Comments WHITE BLOOD CELL COUNT (BEAKER) (test obak=642) 4.9 K/ L 3.5-10.5 RED BLOOD CELL COUNT (BEAKER) (test eyux=975) 2.39 M/ L 4.63-6.08 HEMOGLOBIN (BEAKER) (test ociw=984) 8.1 GM/DL 13.7-17.5 HEMATOCRIT (BEAKER) (test ptxu=721) 24.7 % 40.1-51.0 MEAN CORPUSCULAR VOLUME (BEAKER) (test rmag=616) 103.3 fL 79.0-92.2 MEAN CORPUSCULAR HEMOGLOBIN (BEAKER) (test 33.9 pg 25.7-32.2 qaty=783) MEAN CORPUSCULAR HEMOGLOBIN CONC (BEAKER) (test 32.8 GM/DL 32.3-36.5 wwms=406) RED CELL DISTRIBUTION WIDTH (BEAKER) (test 13.7 % 11.6-14.4 qgmy=951) PLATELET COUNT (BEAKER) (test ulgt=142) 99 K/CU MM 150-450 MEAN PLATELET VOLUME (BEAKER) (test trlz=698) 10.9 fL 9.4-12.4 NUCLEATED RED BLOOD CELLS (BEAKER) (test 0 /100 WBC 0-0 itxk=989) BASIC METABOLIC [id number] 06:30:00 Test Item Value Reference Range Comments SODIUM (BEAKER) (test 130 meq/L 136-145 deqh=859) POTASSIUM (BEAKER) (test 4.2 meq/L 3.5-5.1 puuq=897) CHLORIDE (BEAKER) (test 99 meq/L 98-107 laom=543) CO2 (BEAKER) (test 23 meq/L 22-29 ztgp=991) BLOOD UREA NITROGEN 25 mg/dL 7-21 (BEAKER) (test hfqw=643) CREATININE (BEAKER) (test 1.64 mg/dL 0.57-1.25 slmq=249) GLUCOSE RANDOM (BEAKER) 154 mg/dL 70-105 (test uxtr=192) CALCIUM (BEAKER) (test 8.7 mg/dL 8.4-10.2 ywqk=172) EGFR (BEAKER) (test 40 mL/min/1.73 sq m ESTIMATED GFR IS NOT qyzu=9908) ACCURATE CREATININE CLEARANCE IN PREDICTING GLOMERULAR FILTRATION RATE. ESTIMATED GFR IS NOT APPLICABLE FOR DIALYSIS PATIENTS. CBC W/PLT COUNT & AUTO [id number] 06:30:00 Test Item Value Reference Range Comments WHITE BLOOD CELL COUNT (BEAKER) (test rgbo=926) 4.6 K/ L 3.5-10.5 RED BLOOD CELL COUNT (BEAKER) (test invs=991) 2.50 M/ L 4.63-6.08 HEMOGLOBIN (BEAKER) (test qmsc=165) 8.4 GM/DL 13.7-17.5 HEMATOCRIT (BEAKER) (test kfll=590) 26.3 % 40.1-51.0 MEAN CORPUSCULAR VOLUME (BEAKER) (test isit=291) 105.2 fL 79.0-92.2 MEAN CORPUSCULAR HEMOGLOBIN (BEAKER) (test 33.6 pg 25.7-32.2 mhbn=048) MEAN CORPUSCULAR HEMOGLOBIN CONC (BEAKER) (test 31.9 GM/DL 32.3-36.5 ufou=882) RED CELL DISTRIBUTION WIDTH (BEAKER) (test 15.6 % 11.6-14.4 efbw=659) PLATELET COUNT (BEAKER) (test rngh=281) 62 K/CU MM 150-450 MEAN PLATELET VOLUME (BEAKER) (test vziw=379) 10.9 fL 9.4-12.4 NUCLEATED RED BLOOD CELLS (BEAKER) (test 0 /100 WBC 0-0 vfil=269) NEUTROPHILS RELATIVE PERCENT (BEAKER) (test 62 % ilup=716) LYMPHOCYTES RELATIVE PERCENT (BEAKER) (test 18 % iaxv=610) MONOCYTES RELATIVE PERCENT (BEAKER) (test 17 % oqgq=304) EOSINOPHILS RELATIVE PERCENT (BEAKER) (test 3 % smrk=387) BASOPHILS RELATIVE PERCENT (BEAKER) (test 0 % lfgo=686) NEUTROPHILS ABSOLUTE COUNT (BEAKER) (test 2.88 K/ L 1.78-5.38 hzuh=512) LYMPHOCYTES ABSOLUTE COUNT (BEAKER) (test 0.82 K/ L 1.32-3.57 xydf=089) MONOCYTES ABSOLUTE COUNT (BEAKER) (test rwmf=907) 0.78 K/ L 0.30-0.82 EOSINOPHILS ABSOLUTE COUNT (BEAKER) (test 0.12 K/ L 0.04-0.54 sfom=576) BASOPHILS ABSOLUTE COUNT (BEAKER) (test tqmj=243) 0.01 K/ L 0.01-0.08 IMMATURE GRANULOCYTES-RELATIVE PERCENT (BEAKER) 0 % 0-1 (test eulh=1292) RAD, CHEST, 1 VIEW, NON [id number] 04:10:00post-operative day 1Reason for exam:->chfShould this be [...] None. Signed: David Jha MDReport Verified Date/Time: 09/11/2017 04:10:08 Reading Location: [address] Reading Room BASIC METABOLIC [id number] 04:02:00 Test Item Value Reference Range Comments SODIUM (BEAKER) (test 136 meq/L 136-145 enhb=143) POTASSIUM (BEAKER) (test 3.8 meq/L 3.5-5.1 hxvx=311) CHLORIDE (BEAKER) (test 104 meq/L 98-107 qahf=335) CO2 (BEAKER) (test 22 meq/L 22-29 cned=263) BLOOD UREA NITROGEN 16 mg/dL 7-21 (BEAKER) (test zwag=270) CREATININE (BEAKER) (test 0.92 mg/dL 0.57-1.25 onqd=796) GLUCOSE RANDOM (BEAKER) 132 mg/dL 70-105 (test kits=477) CALCIUM (BEAKER) (test 8.9 mg/dL 8.4-10.2 gtuh=122) EGFR (BEAKER) (test 78 mL/min/1.73 sq m ESTIMATED GFR IS NOT onqc=5149) ACCURATE CREATININE CLEARANCE IN PREDICTING GLOMERULAR FILTRATION RATE. ESTIMATED GFR IS NOT APPLICABLE FOR DIALYSIS PATIENTS. Specimen slightly ictericCBC W/PLT COUNT & AUTO [id number] 03:48 :00 Test Item Value Reference Range Comments WHITE BLOOD CELL COUNT (BEAKER) (test tnvx=146) 5.7 K/ L 3.5-10.5 RED BLOOD CELL COUNT (BEAKER) (test ziqh=287) 2.73 M/ L 4.63-6.08 HEMOGLOBIN (BEAKER) (test bueh=994) 9.2 GM/DL 13.7-17.5 HEMATOCRIT (BEAKER) (test evhl=723) 29.1 % 40.1-51.0 MEAN CORPUSCULAR VOLUME (BEAKER) (test jqhz=248) 106.6 fL 79.0-92.2 MEAN CORPUSCULAR HEMOGLOBIN (BEAKER) (test 33.7 pg 25.7-32.2 uemg=760) MEAN CORPUSCULAR HEMOGLOBIN CONC (BEAKER) (test 31.6 GM/DL 32.3-36.5 afbq=318) RED CELL DISTRIBUTION WIDTH (BEAKER) (test 15.4 % 11.6-14.4 aoeu=571) PLATELET COUNT (BEAKER) (test brjn=695) 84 K/CU MM 150-450 MEAN PLATELET VOLUME (BEAKER) (test ygpl=897) 10.3 fL 9.4-12.4 NUCLEATED RED BLOOD CELLS (BEAKER) (test 0 /100 WBC 0-0 rjlx=067) NEUTROPHILS RELATIVE PERCENT (BEAKER) (test 76 % bwyf=271) LYMPHOCYTES RELATIVE PERCENT (BEAKER) (test 10 % qfhl=526) MONOCYTES RELATIVE PERCENT (BEAKER) (test 10 % rdog=842) EOSINOPHILS RELATIVE PERCENT (BEAKER) (test 3 % lohe=618) BASOPHILS RELATIVE PERCENT (BEAKER) (test 0 % oxfc=318) NEUTROPHILS ABSOLUTE COUNT (BEAKER) (test 4.33 K/ L 1.78-5.38 cips=733) LYMPHOCYTES ABSOLUTE COUNT (BEAKER) (test 0.59 K/ L 1.32-3.57 sbdj=558) MONOCYTES ABSOLUTE COUNT (BEAKER) (test vqwa=171) 0.57 K/ L 0.30-0.82 EOSINOPHILS ABSOLUTE COUNT (BEAKER) (test 0.16 K/ L 0.04-0.54 qzmj=099) BASOPHILS ABSOLUTE COUNT (BEAKER) (test tykf=294) 0.02 K/ L 0.01-0.08 IMMATURE GRANULOCYTES-RELATIVE PERCENT (BEAKER) 0 % 0-1 (test tkoo=5508) [id number] 16:36:00 Test Item Value Reference Range Comments ACTIVATED CLOTTING TIME 142 sec TESTED AT [facility] [address] (BEAKER) (test giky=860) [place] [address] [id number] 16:02:00 Test Item Value Reference Range Comments ACTIVATED CLOTTING TIME 279 sec TESTED AT [place] [address] [facility]BEAKER[facility] (test mnpx=038) [place] [address] [id number] 16:02:00 Test Item Value Reference Range Comments ACTIVATED CLOTTING TIME 252 sec TESTED AT [address] (BEAKER) (test vgyj=787) [place] [address] B-TYPE NATRIURETIC FACTOR (BNP)2017-08-24 15:17:00 Test Item Value Reference Range Comments B-TYPE NATRIURETIC PEPTIDE (BEAKER) (test 170 pg/mL 0-100 hfmb=669) BASIC METABOLIC [id number] 15:08:00 Test Item Value Reference Range Comments SODIUM (BEAKER) (test 139 meq/L 136-145 cmhs=679) POTASSIUM (BEAKER) (test 4.1 meq/L 3.5-5.1 sjre=109) CHLORIDE (BEAKER) (test 99 meq/L 98-107 usje=430) CO2 (BEAKER) (test 33 meq/L 22-29 iooo=910) BLOOD UREA NITROGEN 20 mg/dL 7-21 (BEAKER) (test vfga=795) CREATININE (BEAKER) (test 1.02 mg/dL 0.57-1.25 cnmu=267) GLUCOSE RANDOM (BEAKER) 132 mg/dL 70-105 (test vfpp=360) CALCIUM (BEAKER) (test 9.9 mg/dL 8.4-10.2 yuth=886) EGFR (BEAKER) (test 69 mL/min/1.73 sq m ESTIMATED GFR IS NOT zqgr=5372) ACCURATE CREATININE CLEARANCE IN PREDICTING GLOMERULAR FILTRATION RATE. ESTIMATED GFR IS NOT APPLICABLE FOR DIALYSIS PATIENTS. Specimen slightly [id number] 15:08:00 Test Item Value Reference Range Comments ALBUMIN (BEAKER) (test thdh=5826) 4.2 g/dL 3.5-5.0 PROTHROMBIN TIME/[id number] 14:59:00 Test Item Value Reference Range Comments PROTIME (BEAKER) (test pwfo=769) 16.7 seconds 11.7-14.7 INR (BEAKER) (test phyn=602) 1.4 <=5.9 RECOMMENDED COUMADIN/WARFARIN INR THERAPY RANGESSTANDARD DOSE: 2.0 - 3.0 Includes: PROPHYLAXIS forvenous thrombosis, systemic embolization; TREATMENT for venous thrombosis and/or pulmonary embolus.HIGH RISK: Target INR is 2.5-3.5 for patients with mechanical heart valves.CBC W/PLT COUNT & AUTO [id number] 14:53:00 Test Item Value Reference Range Comments WHITE BLOOD CELL COUNT (BEAKER) (test ovxx=722) 3.7 K/ L 3.5-10.5 RED BLOOD CELL COUNT (BEAKER) (test lrxr=043) 3.11 M/ L 4.63-6.08 HEMOGLOBIN (BEAKER) (test lptp=724) 10.5 GM/DL 13.7-17.5 HEMATOCRIT (BEAKER) (test zvhm=539) 32.3 % 40.1-51.0 MEAN CORPUSCULAR VOLUME (BEAKER) (test syqp=218) 103.9 fL 79.0-92.2 MEAN CORPUSCULAR HEMOGLOBIN (BEAKER) (test 33.8 pg 25.7-32.2 pifg=081) MEAN CORPUSCULAR HEMOGLOBIN CONC (BEAKER) (test 32.5 GM/DL 32.3-36.5 ywcb=603) RED CELL DISTRIBUTION WIDTH (BEAKER) (test 15.8 % 11.6-14.4 wwte=609) PLATELET COUNT (BEAKER) (test hfhl=029) 139 K/CU MM 150-450 MEAN PLATELET VOLUME (BEAKER) (test ubvd=803) 10.2 fL 9.4-12.4 NUCLEATED RED BLOOD CELLS (BEAKER) (test 0 /100 WBC 0-0 zvpc=760) NEUTROPHILS RELATIVE PERCENT (BEAKER) (test 59 % cucb=992) LYMPHOCYTES RELATIVE PERCENT (BEAKER) (test 23 % cdml=124) MONOCYTES RELATIVE PERCENT (BEAKER) (test 13 % kfqw=461) EOSINOPHILS RELATIVE PERCENT (BEAKER) (test 4 % tuji=797) BASOPHILS RELATIVE PERCENT (BEAKER) (test 1 % fonv=660) NEUTROPHILS ABSOLUTE COUNT (BEAKER) (test 2.18 K/ L 1.78-5.38 rdil=864) LYMPHOCYTES ABSOLUTE COUNT (BEAKER) (test 0.86 K/ L 1.32-3.57 udmq=740) MONOCYTES ABSOLUTE COUNT (BEAKER) (test 0.46 K/ L 0.30-0.82 sysv=050) EOSINOPHILS ABSOLUTE COUNT (BEAKER) (test 0.14 K/ L 0.04-0.54 cwfx=778) BASOPHILS ABSOLUTE COUNT (BEAKER) (test 0.04 K/ L 0.01-0.08 oncg=257) IMMATURE GRANULOCYTES-RELATIVE PERCENT (BEAKER) 0 % 0-1 (test dmnf=6392) BASIC METABOLIC [id number] 06:31:00 Test Item Value Reference Range Comments SODIUM (BEAKER) (test 136 meq/L 136-145 thxr=079) POTASSIUM (BEAKER) (test 4.4 meq/L 3.5-5.1 hutw=668) CHLORIDE (BEAKER) (test 94 meq/L 98-107 ikuy=778) CO2 (BEAKER) (test 37 meq/L 22-29 abhl=739) BLOOD UREA NITROGEN 26 mg/dL 7-21 (BEAKER) (test gycg=655) CREATININE (BEAKER) (test 1.07 mg/dL 0.57-1.25 psoi=977) GLUCOSE RANDOM (BEAKER) 115 mg/dL 70-105 (test oxfw=479) CALCIUM (BEAKER) (test 9.6 mg/dL 8.4-10.2 xels=070) EGFR (BEAKER) (test 66 mL/min/1.73 sq m ESTIMATED GFR IS NOT jaon=7236) ACCURATE CREATININE CLEARANCE IN PREDICTING GLOMERULAR FILTRATION RATE. ESTIMATED GFR IS NOT APPLICABLE FOR DIALYSIS PATIENTS. URINALYSIS W/ [id number] 17:39:00 Test Item Value Reference Range Comments COLOR (BEAKER) (test gaje=979) Yellow CLARITY (BEAKER) (test bwln=050) Cloudy SPECIFIC GRAVITY UA (BEAKER) (test 1.012 1.001-1.035 homi=948) PH UA (BEAKER) (test ncds=098) 6.5 5.0-8.0 PROTEIN UA (BEAKER) (test gdks=036) 50 mg/dL Negative GLUCOSE UA (BEAKER) (test zrfn=208) Negative Negative KETONES UA (BEAKER) (test stft=891) Negative Negative BILIRUBIN UA (BEAKER) (test lues=607) Negative Negative BLOOD UA (BEAKER) (test coxt=950) Small Negative NITRITE UA (BEAKER) (test dems=711) Negative Negative LEUKOCYTE ESTERASE UA (BEAKER) (test Large Negative ujyo=094) UROBILINOGEN UA (BEAKER) (test wjox=459) 0.2 mg/dL 0.2-1.0 RBC UA (BEAKER) (test kgzu=042) 0 /HPF WBC UA (BEAKER) (test ysxd=342) > /HPF BACTERIA (BEAKER) (test udwh=808) Moderate SOURCE(BEAKER) (test hdiv=9880) Urine, Clean Catch BASIC METABOLIC [id number] 05:57:00 Test Item Value Reference Range Comments SODIUM (BEAKER) (test 135 meq/L 136-145 bfhh=463) POTASSIUM (BEAKER) (test 4.3 meq/L 3.5-5.1 rbjo=913) CHLORIDE (BEAKER) (test 93 meq/L 98-107 rxzl=491) CO2 (BEAKER) (test 32 meq/L 22-29 dcug=517) BLOOD UREA NITROGEN 33 mg/dL 7-21 (BEAKER) (test pxgz=531) CREATININE (BEAKER) (test 1.10 mg/dL 0.57-1.25 vnkl=675) GLUCOSE RANDOM (BEAKER) 113 mg/dL 70-105 (test vbib=515) CALCIUM (BEAKER) (test 9.2 mg/dL 8.4-10.2 dxws=971) EGFR (BEAKER) (test 63 mL/min/1.73 sq m ESTIMATED GFR IS NOT ckvc=7643) ACCURATE CREATININE CLEARANCE IN PREDICTING GLOMERULAR FILTRATION RATE. ESTIMATED GFR IS NOT APPLICABLE FOR DIALYSIS PATIENTS. CBC W/PLT COUNT & AUTO [id number] 05:36:00 Test Item Value Reference Range Comments WHITE BLOOD CELL COUNT (BEAKER) (test emnk=991) 4.8 K/ L 3.5-10.5 RED BLOOD CELL COUNT (BEAKER) (test xaxo=031) 2.77 M/ L 4.63-6.08 HEMOGLOBIN (BEAKER) (test wcup=663) 9.1 GM/DL 13.7-17.5 HEMATOCRIT (BEAKER) (test sdpz=466) 27.9 % 40.1-51.0 MEAN CORPUSCULAR VOLUME (BEAKER) (test yzdj=175) 100.7 fL 79.0-92.2 MEAN CORPUSCULAR HEMOGLOBIN (BEAKER) (test 32.9 pg 25.7-32.2 cpyg=036) MEAN CORPUSCULAR HEMOGLOBIN CONC (BEAKER) (test 32.6 GM/DL 32.3-36.5 bcyb=378) RED CELL DISTRIBUTION WIDTH (BEAKER) (test 14.6 % 11.6-14.4 cogt=304) PLATELET COUNT (BEAKER) (test bpcx=617) 176 K/CU MM 150-450 MEAN PLATELET VOLUME (BEAKER) (test wjcy=097) 9.8 fL 9.4-12.4 NUCLEATED RED BLOOD CELLS (BEAKER) (test 0 /100 WBC 0-0 takm=904) NEUTROPHILS RELATIVE PERCENT (BEAKER) (test 63 % zyfh=771) LYMPHOCYTES RELATIVE PERCENT (BEAKER) (test 14 % qjwu=033) MONOCYTES RELATIVE PERCENT (BEAKER) (test 13 % said=124) EOSINOPHILS RELATIVE PERCENT (BEAKER) (test 10 % dghr=246) BASOPHILS RELATIVE PERCENT (BEAKER) (test 1 % gyxt=908) NEUTROPHILS ABSOLUTE COUNT (BEAKER) (test 3.05 K/ L 1.78-5.38 mcqr=004) LYMPHOCYTES ABSOLUTE COUNT (BEAKER) (test 0.66 K/ L 1.32-3.57 xhew=871) MONOCYTES ABSOLUTE COUNT (BEAKER) (test 0.61 K/ L 0.30-0.82 phdp=772) EOSINOPHILS ABSOLUTE COUNT (BEAKER) (test 0.46 K/ L 0.04-0.54 ymrm=211) BASOPHILS ABSOLUTE COUNT (BEAKER) (test 0.04 K/ L 0.01-0.08 fphv=780) IMMATURE GRANULOCYTES-RELATIVE PERCENT (BEAKER) 0 % 0-1 (test iaea=5970) BASIC METABOLIC [id number] 07:35:00 Test Item Value Reference Range Comments SODIUM (BEAKER) (test 134 meq/L 136-145 rkjc=469) POTASSIUM (BEAKER) (test 3.7 meq/L 3.5-5.1 pbrr=172) CHLORIDE (BEAKER) (test 95 meq/L 98-107 bvtg=915) CO2 (BEAKER) (test 27 meq/L 22-29 hbyu=803) BLOOD UREA NITROGEN 30 mg/dL 7-21 (BEAKER) (test wtpy=361) CREATININE (BEAKER) (test 1.04 mg/dL 0.57-1.25 mbuc=202) GLUCOSE RANDOM (BEAKER) 101 mg/dL 70-105 (test oqga=373) CALCIUM (BEAKER) (test 8.9 mg/dL 8.4-10.2 kktr=944) EGFR (BEAKER) (test 68 mL/min/1.73 sq m ESTIMATED GFR IS NOT zymx=3733) ACCURATE CREATININE CLEARANCE IN PREDICTING GLOMERULAR FILTRATION RATE. ESTIMATED GFR IS NOT APPLICABLE FOR DIALYSIS PATIENTS. Specimen slightly ictericBASIC METABOLIC [id number] 06:09:00 Test Item Value Reference Range Comments SODIUM (BEAKER) (test 133 meq/L 136-145 aipe=786) POTASSIUM (BEAKER) (test 3.9 meq/L 3.5-5.1 eocj=981) CHLORIDE (BEAKER) (test 97 meq/L 98-107 tomp=393) CO2 (BEAKER) (test 28 meq/L 22-29 pmjc=945) BLOOD UREA NITROGEN 20 mg/dL 7-21 (BEAKER) (test nhji=356) CREATININE (BEAKER) (test 0.92 mg/dL 0.57-1.25 crkg=012) GLUCOSE RANDOM (BEAKER) 97 mg/dL 70-105 (test lexi=339) CALCIUM (BEAKER) (test 8.8 mg/dL 8.4-10.2 tnwb=571) EGFR (BEAKER) (test 78 mL/min/1.73 sq m ESTIMATED GFR IS NOT oubj=2006) ACCURATE CREATININE CLEARANCE IN PREDICTING GLOMERULAR FILTRATION RATE. ESTIMATED GFR IS NOT APPLICABLE FOR DIALYSIS PATIENTS. Specimen slightly ictericB-TYPE NATRIURETIC FACTOR (BNP)2017-07-29 06:01:00 Test Item Value Reference Range Comments B-TYPE NATRIURETIC PEPTIDE (BEAKER) (test 109 pg/mL 0-100 vnaz=651) RAD, CHEST, 1 VIEW, NON [id number] 17:23:00Reason for exam:->chfShould this be performed at [...] [place] Verified Date/Time: 07/28/2017 17:23:24 Reading Location: [facility] Radiology Reading Room URINE [id number] 10:09:00 Test Item Value Reference Range Comments CULTURE (BEAKER) (test KLEBSIELLA PNEUMONIAE >100,000 col/mL bkwf=0571) SSP PNEUMONIAE Klebsiella pneumoniae ssp pneumoniae Amikacin [...] code=47) CULTURE (BEAKER) (test STENOTROPHOMONAS 50-59,000 col/mL wpns=2661) MALTOPHILIA Stenotrophomonas maltophilia Ceftazidime (test Susceptible 0-8 , code=27) Resistant <0 or >8 Levofloxacin (test Susceptible 0-2 , code=22) Resistant <0 or >2 Minocycline (test Susceptible 0-4 , code=35) Resistant <0 or >4 Ticarcillin + Susceptible 0-16 Clavulanic Acid (test , Resistant <0 or code=80) >16 Trimethoprim + Susceptible 0-40 Sulfamethoxazole (test , Resistant <0 or code=47) >40 COMPREHENSIVE METABOLIC [id number] 07:06:00 Test Item Value Reference Range Comments TOTAL PROTEIN (BEAKER) 6.3 gm/dL 6.0-8.3 (test eenf=191) ALBUMIN (BEAKER) (test 3.4 g/dL 3.5-5.0 kvxu=5653) ALKALINE PHOSPHATASE 122 U/L 40-150 (BEAKER) (test lwux=978) BILIRUBIN TOTAL (BEAKER) 2.2 mg/dL 0.2-1.2 (test enee=525) SODIUM (BEAKER) (test 137 meq/L 136-145 tltz=487) POTASSIUM (BEAKER) (test 4.8 meq/L 3.5-5.1 oobl=874) CHLORIDE (BEAKER) (test 102 meq/L 98-107 kfgi=532) CO2 (BEAKER) (test 27 meq/L 22-29 gthb=572) BLOOD UREA NITROGEN 17 mg/dL 7-21 (BEAKER) (test bgyc=033) CREATININE (BEAKER) (test 0.80 mg/dL 0.57-1.25 mptk=181) GLUCOSE RANDOM (BEAKER) 122 mg/dL 70-105 (test dtgd=051) CALCIUM (BEAKER) (test 9.1 mg/dL 8.4-10.2 msam=724) AST (SGOT) (BEAKER) (test 31 U/L 5-34 kxeo=231) ALT (SGPT) (BEAKER) (test 19 U/L 6-55 cmsz=614) EGFR (BEAKER) (test 92 mL/min/1.73 sq m ESTIMATED GFR IS NOT uiiv=2991) ACCURATE CREATININE CLEARANCE IN PREDICTING GLOMERULAR FILTRATION RATE. ESTIMATED GFR IS NOT APPLICABLE FOR DIALYSIS PATIENTS. Specimen slightly ictericCBC W/PLT COUNT & AUTO [id number] 06:35 :00 Test Item Value Reference Range Comments WHITE BLOOD CELL COUNT (BEAKER) (test qfaj=297) 6.0 K/ L 3.5-10.5 RED BLOOD CELL COUNT (BEAKER) (test ogfd=628) 2.86 M/ L 4.63-6.08 HEMOGLOBIN (BEAKER) (test kvvh=944) 9.6 GM/DL 13.7-17.5 HEMATOCRIT (BEAKER) (test wotv=866) 29.2 % 40.1-51.0 MEAN CORPUSCULAR VOLUME (BEAKER) (test osco=368) 102.1 fL 79.0-92.2 MEAN CORPUSCULAR HEMOGLOBIN (BEAKER) (test 33.6 pg 25.7-32.2 drss=913) MEAN CORPUSCULAR HEMOGLOBIN CONC (BEAKER) (test 32.9 GM/DL 32.3-36.5 icbw=342) RED CELL DISTRIBUTION WIDTH (BEAKER) (test 14.7 % 11.6-14.4 vkql=726) PLATELET COUNT (BEAKER) (test ohkg=939) 169 K/CU MM 150-450 MEAN PLATELET VOLUME (BEAKER) (test wwvz=521) 9.8 fL 9.4-12.4 NUCLEATED RED BLOOD CELLS (BEAKER) (test 0 /100 WBC 0-0 wsxl=523) NEUTROPHILS RELATIVE PERCENT (BEAKER) (test 69 % omuc=017) LYMPHOCYTES RELATIVE PERCENT (BEAKER) (test 12 % lmux=555) MONOCYTES RELATIVE PERCENT (BEAKER) (test 11 % xzap=701) EOSINOPHILS RELATIVE PERCENT (BEAKER) (test 7 % megd=395) BASOPHILS RELATIVE PERCENT (BEAKER) (test 0 % iaek=725) NEUTROPHILS ABSOLUTE COUNT (BEAKER) (test 4.13 K/ L 1.78-5.38 ejvv=908) LYMPHOCYTES ABSOLUTE COUNT (BEAKER) (test 0.70 K/ L 1.32-3.57 ljai=897) MONOCYTES ABSOLUTE COUNT (BEAKER) (test 0.67 K/ L 0.30-0.82 iqkd=896) EOSINOPHILS ABSOLUTE COUNT (BEAKER) (test 0.44 K/ L 0.04-0.54 jdlv=758) BASOPHILS ABSOLUTE COUNT (BEAKER) (test 0.02 K/ L 0.01-0.08 vvla=020) IMMATURE GRANULOCYTES-RELATIVE PERCENT (BEAKER) 1 % 0-1 (test iabr=8187) URINALYSIS W/ [id number] 18:38:00 Test Item Value Reference Range Comments COLOR (BEAKER) (test hxjq=084) Yellow CLARITY (BEAKER) (test ruqj=448) Clear SPECIFIC GRAVITY UA (BEAKER) (test 1.005 1.001-1.035 dtsf=114) PH UA (BEAKER) (test sbwo=412) 6.5 5.0-8.0 PROTEIN UA (BEAKER) (test sxss=151) Negative Negative GLUCOSE UA (BEAKER) (test xlqj=382) Negative Negative KETONES UA (BEAKER) (test sfke=642) Negative Negative BILIRUBIN UA (BEAKER) (test lbos=173) Negative Negative BLOOD UA (BEAKER) (test egqn=463) Negative Negative NITRITE UA (BEAKER) (test cxmm=545) Negative Negative LEUKOCYTE ESTERASE UA (BEAKER) (test Negative Negative lcsd=817) UROBILINOGEN UA (BEAKER) (test qmqx=792) 0.2 mg/dL 0.2-1.0 RBC UA (BEAKER) (test igjp=790) 0 /HPF WBC UA (BEAKER) (test fnwl=677) < /HPF SOURCE(BEAKER) (test lcxz=3859) Urine, Clean Catch CBC W/PLT COUNT & AUTO [id number] 04:47:00 Test Item Value Reference Range Comments WHITE BLOOD CELL COUNT (BEAKER) (test ikzc=136) 5.5 K/ L 3.5-10.5 RED BLOOD CELL COUNT (BEAKER) (test hspf=081) 2.72 M/ L 4.63-6.08 HEMOGLOBIN (BEAKER) (test shnz=332) 8.9 GM/DL 13.7-17.5 HEMATOCRIT (BEAKER) (test ppby=739) 27.1 % 40.1-51.0 MEAN CORPUSCULAR VOLUME (BEAKER) (test ihhq=908) 99.6 fL 79.0-92.2 MEAN CORPUSCULAR HEMOGLOBIN (BEAKER) (test 32.7 pg 25.7-32.2 ehwu=857) MEAN CORPUSCULAR HEMOGLOBIN CONC (BEAKER) (test 32.8 GM/DL 32.3-36.5 cdkv=977) RED CELL DISTRIBUTION WIDTH (BEAKER) (test 15.0 % 11.6-14.4 avjq=692) PLATELET COUNT (BEAKER) (test avbx=215) 149 K/CU MM 150-450 MEAN PLATELET VOLUME (BEAKER) (test wfpm=389) 10.0 fL 9.4-12.4 NUCLEATED RED BLOOD CELLS (BEAKER) (test 0 /100 WBC 0-0 fvfo=969) NEUTROPHILS RELATIVE PERCENT (BEAKER) (test 62 % msgz=210) LYMPHOCYTES RELATIVE PERCENT (BEAKER) (test 13 % bffs=942) MONOCYTES RELATIVE PERCENT (BEAKER) (test 14 % ekxj=434) EOSINOPHILS RELATIVE PERCENT (BEAKER) (test 9 % nozr=204) BASOPHILS RELATIVE PERCENT (BEAKER) (test 1 % llvx=716) NEUTROPHILS ABSOLUTE COUNT (BEAKER) (test 3.40 K/ L 1.78-5.38 dzqs=445) LYMPHOCYTES ABSOLUTE COUNT (BEAKER) (test 0.72 K/ L 1.32-3.57 qnsd=145) MONOCYTES ABSOLUTE COUNT (BEAKER) (test 0.76 K/ L 0.30-0.82 lwuk=500) EOSINOPHILS ABSOLUTE COUNT (BEAKER) (test 0.50 K/ L 0.04-0.54 oolw=652) BASOPHILS ABSOLUTE COUNT (BEAKER) (test 0.03 K/ L 0.01-0.08 eamz=383) IMMATURE GRANULOCYTES-RELATIVE PERCENT (BEAKER) 1 % 0-1 (test duxt=8052) BASIC METABOLIC [id number] 04:36:00 Test Item Value Reference Range Comments SODIUM (BEAKER) (test 138 meq/L 136-145 ospa=024) POTASSIUM (BEAKER) (test 4.2 meq/L 3.5-5.1 cxvi=248) CHLORIDE (BEAKER) (test 104 meq/L 98-107 nwdn=840) CO2 (BEAKER) (test 28 meq/L 22-29 qxul=812) BLOOD UREA NITROGEN 16 mg/dL 7-21 (BEAKER) (test gbho=925) CREATININE (BEAKER) (test 0.79 mg/dL 0.57-1.25 filn=869) GLUCOSE RANDOM (BEAKER) 102 mg/dL 70-105 (test ptzh=424) CALCIUM (BEAKER) (test 8.8 mg/dL 8.4-10.2 gccs=931) EGFR (BEAKER) (test 93 mL/min/1.73 sq m ESTIMATED GFR IS NOT wefj=0703) ACCURATE CREATININE CLEARANCE IN PREDICTING GLOMERULAR FILTRATION RATE. ESTIMATED GFR IS NOT APPLICABLE FOR DIALYSIS PATIENTS. Specimen slightly ictericB-TYPE NATRIURETIC FACTOR (BNP)2017-07-24 04:34:00 Test Item Value Reference Range Comments B-TYPE NATRIURETIC PEPTIDE (BEAKER) (test 190 pg/mL 0-100 ofdn=756) [id number] 07:02:00 Test Item Value Reference Range Comments CORTISOL, TOTAL (BEAKER) (test dapr=9997) 12.9 ug/dL 3.7-19.4 CBC (HEMOGRAM ONLY)2017-07-23 06:17:00 Test Item Value Reference Range Comments WHITE BLOOD CELL COUNT (BEAKER) (test rlkt=981) 6.3 K/ L 3.5-10.5 RED BLOOD CELL COUNT (BEAKER) (test enky=272) 2.84 M/ L 4.63-6.08 HEMOGLOBIN (BEAKER) (test mvvu=626) 9.3 GM/DL 13.7-17.5 HEMATOCRIT (BEAKER) (test ybwu=163) 28.1 % 40.1-51.0 MEAN CORPUSCULAR VOLUME (BEAKER) (test jygw=434) 98.9 fL 79.0-92.2 MEAN CORPUSCULAR HEMOGLOBIN (BEAKER) (test 32.7 pg 25.7-32.2 arlu=067) MEAN CORPUSCULAR HEMOGLOBIN CONC (BEAKER) (test 33.1 GM/DL 32.3-36.5 jvra=732) RED CELL DISTRIBUTION WIDTH (BEAKER) (test 14.8 % 11.6-14.4 ywrh=897) PLATELET COUNT (BEAKER) (test czzb=243) 136 K/CU MM 150-450 MEAN PLATELET VOLUME (BEAKER) (test tfdm=685) 9.9 fL 9.4-12.4 NUCLEATED RED BLOOD CELLS (BEAKER) (test 0 /100 WBC 0-0 bfno=125) CT, CTA, [id number] 16:16:00Addendum BeginsREPORT STATUS:A Addendum: July 22, 2017 at 1620 hours I have reviewed the CT images for this study and I concur with the nonvascular imaging findings as dictated. Signed: Sandip Christianson MDReport Verified Date/Time: 07/22/2017 16:16:14 Reading Location: [place] [address] Angio Body Reading RoomAddendum EndsFINAL REPORT CT [...] bypass surgery. The internal mammary arteries are [place]. A bypass graft is identified, that is [...] An addendum will be dictated by the Commercial Agent Radiologist regarding the nonvascular findings. Signed: Abdoul Galloway MDReport Verified Date/Time: 07/22/2017 15:43:41 Reading Location: [place] [id number] Cardiology MRI CT, CTA [id number] 16:16:00TAVRAddendum BeginsREPORT STATUS:A Addendum: July 22, 2017 at 1620 hours I have reviewed the CT images for this study and I concur with the nonvascular imaging findings as dictated. Signed: Sandip Christiansonort Verified Date/Time: 07/22/2017 16:16:14 Reading Location: [place] [id number] Angio Body Reading RoomAddendum EndsFINAL REPORT CT [...] bypass surgery. The internal mammary arteries are [place]. A bypass graft is identified, that is [...] An addendum will be dictated by the Commercial Agent Radiologist regarding the nonvascular findings. Signed: Abdoul Galloway MDReport Verified Date/Time: 07/22/2017 15:43:41 Reading Location: [place] [address] Cardiology MRI [facility] METABOLIC [id number] 05:06:00 Test Item Value Reference Range Comments SODIUM (BEAKER) (test 139 meq/L 136-145 cuct=777) POTASSIUM (BEAKER) (test 4.4 meq/L 3.5-5.1 lcsj=058) CHLORIDE (BEAKER) (test 106 meq/L 98-107 ezjz=932) CO2 (BEAKER) (test 24 meq/L 22-29 ufqd=365) BLOOD UREA NITROGEN 20 mg/dL 7-21 (BEAKER) (test dpek=933) CREATININE (BEAKER) (test 0.80 mg/dL 0.57-1.25 ourn=532) GLUCOSE RANDOM (BEAKER) 110 mg/dL 70-105 (test jzsy=579) CALCIUM (BEAKER) (test 9.3 mg/dL 8.4-10.2 jczb=667) EGFR (BEAKER) (test 92 mL/min/1.73 sq m ESTIMATED GFR IS NOT kqgx=9963) ACCURATE CREATININE CLEARANCE IN PREDICTING GLOMERULAR FILTRATION RATE. ESTIMATED GFR IS NOT APPLICABLE FOR DIALYSIS PATIENTS. Specimen slightly ictericB-TYPE NATRIURETIC FACTOR (BNP)2017-07-22 05:00:00 Test Item Value Reference Range Comments B-TYPE NATRIURETIC PEPTIDE (BEAKER) (test 475 pg/mL 0-100 wbxy=662) POCT-GLUCOSE [id number] 20:48:00 Test Item Value Reference Range Comments POC-GLUCOSE METER (BEAKER) 133 mg/dL 70-110 TESTED AT [facility] [address] [facility] (test thln=6616) [facility] [address] [id number] 06:17:00 Test Item Value Reference Range Comments PHOSPHORUS (BEAKER) (test cdzo=608) 2.3 mg/dL 2.3-4.7 [id number] 06:17:00 Test Item Value Reference Range Comments MAGNESIUM (BEAKER) (test axoh=513) 2.2 mg/dL 1.6-2.6 BASIC METABOLIC [id number] 06:17:00 Test Item Value Reference Range Comments SODIUM (BEAKER) (test 135 meq/L 136-145 wdzi=324) POTASSIUM (BEAKER) (test 4.3 meq/L 3.5-5.1 cbtb=472) CHLORIDE (BEAKER) (test 106 meq/L 98-107 bckw=337) CO2 (BEAKER) (test 23 meq/L 22-29 vhxc=904) BLOOD UREA NITROGEN 32 mg/dL 7-21 (BEAKER) (test uabl=502) CREATININE (BEAKER) (test 1.06 mg/dL 0.57-1.25 ytyf=105) GLUCOSE RANDOM (BEAKER) 107 mg/dL 70-105 (test fyiq=995) CALCIUM (BEAKER) (test 8.6 mg/dL 8.4-10.2 djtq=770) EGFR (BEAKER) (test 66 mL/min/1.73 sq m ESTIMATED GFR IS NOT tvrl=0154) ACCURATE CREATININE CLEARANCE IN PREDICTING GLOMERULAR FILTRATION RATE. ESTIMATED GFR IS NOT APPLICABLE FOR DIALYSIS PATIENTS. CBC W/PLT COUNT & AUTO [id number] 05:58:00 Test Item Value Reference Range Comments WHITE BLOOD CELL COUNT (BEAKER) (test hapi=509) 4.5 K/ L 3.5-10.5 RED BLOOD CELL COUNT (BEAKER) (test oxwm=706) 2.34 M/ L 4.63-6.08 HEMOGLOBIN (BEAKER) (test pesu=637) 7.8 GM/DL 13.7-17.5 HEMATOCRIT (BEAKER) (test ltoa=020) 23.7 % 40.1-51.0 MEAN CORPUSCULAR VOLUME (BEAKER) (test gihx=121) 101.3 fL 79.0-92.2 MEAN CORPUSCULAR HEMOGLOBIN (BEAKER) (test 33.3 pg 25.7-32.2 ainx=775) MEAN CORPUSCULAR HEMOGLOBIN CONC (BEAKER) (test 32.9 GM/DL 32.3-36.5 upfa=186) RED CELL DISTRIBUTION WIDTH (BEAKER) (test 14.7 % 11.6-14.4 kcei=828) PLATELET COUNT (BEAKER) (test dzii=925) 76 K/CU MM 150-450 MEAN PLATELET VOLUME (BEAKER) (test bhet=026) 10.0 fL 9.4-12.4 NUCLEATED RED BLOOD CELLS (BEAKER) (test 0 /100 WBC 0-0 jnxw=674) NEUTROPHILS RELATIVE PERCENT (BEAKER) (test 63 % oart=803) LYMPHOCYTES RELATIVE PERCENT (BEAKER) (test 14 % lllz=692) MONOCYTES RELATIVE PERCENT (BEAKER) (test 13 % acbr=456) EOSINOPHILS RELATIVE PERCENT (BEAKER) (test 9 % mlgb=259) BASOPHILS RELATIVE PERCENT (BEAKER) (test 0 % jjap=191) NEUTROPHILS ABSOLUTE COUNT (BEAKER) (test 2.82 K/ L 1.78-5.38 elua=664) LYMPHOCYTES ABSOLUTE COUNT (BEAKER) (test 0.61 K/ L 1.32-3.57 miie=650) MONOCYTES ABSOLUTE COUNT (BEAKER) (test uhym=624) 0.59 K/ L 0.30-0.82 EOSINOPHILS ABSOLUTE COUNT (BEAKER) (test 0.39 K/ L 0.04-0.54 ztby=849) BASOPHILS ABSOLUTE COUNT (BEAKER) (test duzr=017) 0.01 K/ L 0.01-0.08 IMMATURE GRANULOCYTES-RELATIVE PERCENT (BEAKER) 1 % 0-1 (test shfs=0769) [id number] 05:42:00 Test Item Value Reference Range Comments MAGNESIUM (BEAKER) (test xgue=059) 2.2 mg/dL 1.6-2.6 BASIC METABOLIC [id number] 05:42:00 Test Item Value Reference Range Comments SODIUM (BEAKER) (test 135 meq/L 136-145 gvgr=649) POTASSIUM (BEAKER) (test 4.2 meq/L 3.5-5.1 twfo=358) CHLORIDE (BEAKER) (test 106 meq/L 98-107 ymdn=474) CO2 (BEAKER) (test 23 meq/L 22-29 ayup=935) BLOOD UREA NITROGEN 41 mg/dL 7-21 (BEAKER) (test rooj=369) CREATININE (BEAKER) (test 1.43 mg/dL 0.57-1.25 xxoi=412) GLUCOSE RANDOM (BEAKER) 118 mg/dL 70-105 (test mfje=586) CALCIUM (BEAKER) (test 8.4 mg/dL 8.4-10.2 zzgj=110) EGFR (BEAKER) (test 47 mL/min/1.73 sq m ESTIMATED GFR IS NOT qoww=7807) ACCURATE CREATININE CLEARANCE IN PREDICTING GLOMERULAR FILTRATION RATE. ESTIMATED GFR IS NOT APPLICABLE FOR DIALYSIS PATIENTS. CBC W/PLT COUNT & AUTO [id number] 08:51:00 Test Item Value Reference Range Comments WHITE BLOOD CELL COUNT (BEAKER) (test thqo=050) 4.8 K/ L 3.5-10.5 RED BLOOD CELL COUNT (BEAKER) (test rbcl=054) 2.42 M/ L 4.63-6.08 HEMOGLOBIN (BEAKER) (test rwkz=675) 8.0 GM/DL 13.7-17.5 HEMATOCRIT (BEAKER) (test tyzr=764) 24.6 % 40.1-51.0 MEAN CORPUSCULAR VOLUME (BEAKER) (test uemn=158) 101.7 fL 79.0-92.2 MEAN CORPUSCULAR HEMOGLOBIN (BEAKER) (test 33.1 pg 25.7-32.2 tuxm=932) MEAN CORPUSCULAR HEMOGLOBIN CONC (BEAKER) (test 32.5 GM/DL 32.3-36.5 tkju=895) RED CELL DISTRIBUTION WIDTH (BEAKER) (test 15.2 % 11.6-14.4 qisz=200) PLATELET COUNT (BEAKER) (test jgez=275) 62 K/CU MM 150-450 MEAN PLATELET VOLUME (BEAKER) (test jefz=582) 10.7 fL 9.4-12.4 NUCLEATED RED BLOOD CELLS (BEAKER) (test 0 /100 WBC 0-0 rbcw=559) NEUTROPHILS RELATIVE PERCENT (BEAKER) (test 72 % drqv=440) LYMPHOCYTES RELATIVE PERCENT (BEAKER) (test 8 % dqjt=908) MONOCYTES RELATIVE PERCENT (BEAKER) (test 13 % ltsp=331) EOSINOPHILS RELATIVE PERCENT (BEAKER) (test 7 % eyqu=848) BASOPHILS RELATIVE PERCENT (BEAKER) (test 0 % colx=256) NEUTROPHILS ABSOLUTE COUNT (BEAKER) (test 3.46 K/ L 1.78-5.38 akpw=656) LYMPHOCYTES ABSOLUTE COUNT (BEAKER) (test 0.36 K/ L 1.32-3.57 aeie=398) MONOCYTES ABSOLUTE COUNT (BEAKER) (test dfiw=010) 0.64 K/ L 0.30-0.82 EOSINOPHILS ABSOLUTE COUNT (BEAKER) (test 0.33 K/ L 0.04-0.54 ujbg=383) BASOPHILS ABSOLUTE COUNT (BEAKER) (test viri=963) 0.01 K/ L 0.01-0.08 IMMATURE GRANULOCYTES-RELATIVE PERCENT (BEAKER) 0 % 0-1 (test gusc=4577) BASIC METABOLIC [id number] 06:59:00 Test Item Value Reference Range Comments SODIUM (BEAKER) (test 134 meq/L 136-145 esbt=566) POTASSIUM (BEAKER) (test 4.3 meq/L 3.5-5.1 vzeh=621) CHLORIDE (BEAKER) (test 106 meq/L 98-107 bouq=777) CO2 (BEAKER) (test 22 meq/L 22-29 bpsm=745) BLOOD UREA NITROGEN 48 mg/dL 7-21 (BEAKER) (test yuus=221) CREATININE (BEAKER) (test 2.22 mg/dL 0.57-1.25 cfdy=614) GLUCOSE RANDOM (BEAKER) 151 mg/dL 70-105 (test lnha=444) CALCIUM (BEAKER) (test 8.1 mg/dL 8.4-10.2 bnap=247) EGFR (BEAKER) (test 28 mL/min/1.73 sq m ESTIMATED GFR IS NOT xmrs=2144) ACCURATE CREATININE CLEARANCE IN PREDICTING GLOMERULAR FILTRATION RATE. ESTIMATED GFR IS NOT APPLICABLE FOR DIALYSIS PATIENTS. Specimen slightly [id number] 06:50:00 Test Item Value Reference Range Comments MAGNESIUM (BEAKER) (test gcys=790) 2.2 mg/dL 1.6-2.6 [id number] 14:04:00 Test Item Value Reference Range Comments CORTISOL, TOTAL (BEAKER) (test esyi=9562) 14.3 ug/dL 3.7-19.4 B-TYPE NATRIURETIC FACTOR (BNP)2017-07-17 05:11:00 Test Item Value Reference Range Comments B-TYPE NATRIURETIC PEPTIDE (BEAKER) (test 462 pg/mL 0-100 xfet=693) URIC [id number] 05:09:00 Test Item Value Reference Range Comments URIC ACID (BEAKER) (test zipv=453) 9.8 mg/dL 2.6-7.2 [id number] 05:09:00 Test Item Value Reference Range Comments MAGNESIUM (BEAKER) (test ekqb=403) 2.0 mg/dL 1.6-2.6 COMPREHENSIVE METABOLIC [id number] 05:09:00 Test Item Value Reference Range Comments TOTAL PROTEIN (BEAKER) 5.4 gm/dL 6.0-8.3 (test wuct=297) ALBUMIN (BEAKER) (test 3.2 g/dL 3.5-5.0 ryvr=7818) ALKALINE PHOSPHATASE 62 U/L 40-150 (BEAKER) (test mbaw=175) BILIRUBIN TOTAL (BEAKER) 1.5 mg/dL 0.2-1.2 (test qqbv=563) SODIUM (BEAKER) (test 137 meq/L 136-145 bqxy=073) POTASSIUM (BEAKER) (test 4.2 meq/L 3.5-5.1 iwzm=551) CHLORIDE (BEAKER) (test 107 meq/L 98-107 wjjx=017) CO2 (BEAKER) (test 21 meq/L 22-29 rkbn=182) BLOOD UREA NITROGEN 43 mg/dL 7-21 (BEAKER) (test ptcm=513) CREATININE (BEAKER) (test 2.58 mg/dL 0.57-1.25 roic=902) GLUCOSE RANDOM (BEAKER) 201 mg/dL 70-105 (test bebh=980) CALCIUM (BEAKER) (test 8.1 mg/dL 8.4-10.2 vhks=853) AST (SGOT) (BEAKER) (test 28 U/L 5-34 keoo=457) ALT (SGPT) (BEAKER) (test 9 U/L 6-55 iiso=531) EGFR (BEAKER) (test 24 mL/min/1.73 sq m ESTIMATED GFR IS NOT jjmj=9946) ACCURATE CREATININE CLEARANCE IN PREDICTING GLOMERULAR FILTRATION RATE. ESTIMATED GFR IS NOT APPLICABLE FOR DIALYSIS PATIENTS. CBC W/PLT COUNT & AUTO [id number] 04:52:00 Test Item Value Reference Range Comments WHITE BLOOD CELL COUNT (BEAKER) (test acsz=748) 7.5 K/ L 3.5-10.5 RED BLOOD CELL COUNT (BEAKER) (test tufu=651) 2.20 M/ L 4.63-6.08 HEMOGLOBIN (BEAKER) (test ozer=011) 7.4 GM/DL 13.7-17.5 HEMATOCRIT (BEAKER) (test cmxd=455) 23.1 % 40.1-51.0 MEAN CORPUSCULAR VOLUME (BEAKER) (test aekh=396) 105.0 fL 79.0-92.2 MEAN CORPUSCULAR HEMOGLOBIN (BEAKER) (test 33.6 pg 25.7-32.2 klqr=864) MEAN CORPUSCULAR HEMOGLOBIN CONC (BEAKER) (test 32.0 GM/DL 32.3-36.5 ycbk=394) RED CELL DISTRIBUTION WIDTH (BEAKER) (test 14.0 % 11.6-14.4 yhyr=129) PLATELET COUNT (BEAKER) (test xelc=801) 84 K/CU MM 150-450 MEAN PLATELET VOLUME (BEAKER) (test cqpl=111) 11.1 fL 9.4-12.4 NUCLEATED RED BLOOD CELLS (BEAKER) (test 0 /100 WBC 0-0 dark=765) NEUTROPHILS RELATIVE PERCENT (BEAKER) (test 77 % wczk=056) LYMPHOCYTES RELATIVE PERCENT (BEAKER) (test 8 % rdni=811) MONOCYTES RELATIVE PERCENT (BEAKER) (test 13 % nnlr=084) EOSINOPHILS RELATIVE PERCENT (BEAKER) (test 1 % cwjz=579) BASOPHILS RELATIVE PERCENT (BEAKER) (test 0 % jvky=051) NEUTROPHILS ABSOLUTE COUNT (BEAKER) (test 5.81 K/ L 1.78-5.38 klmh=796) LYMPHOCYTES ABSOLUTE COUNT (BEAKER) (test 0.61 K/ L 1.32-3.57 vezi=577) MONOCYTES ABSOLUTE COUNT (BEAKER) (test lnru=604) 0.96 K/ L 0.30-0.82 EOSINOPHILS ABSOLUTE COUNT (BEAKER) (test 0.08 K/ L 0.04-0.54 kvzc=647) BASOPHILS ABSOLUTE COUNT (BEAKER) (test ckmb=162) 0.03 K/ L 0.01-0.08 IMMATURE GRANULOCYTES-RELATIVE PERCENT (BEAKER) 0 % 0-1 (test tstl=1698) RAD, CHEST, 1 VIEW, NON [id number] 04:01:00Reason for exam:-> oliguriaShould this be performed [...] MDReport Verified Date/Time: 07/17/2017 04:01:10 Reading Location: [address] Reading Room SODIUM, RANDOM [id number] 19:25:00 Test Item Value Reference Range Comments SODIUM URINE (BEAKER) (test ueka=115) < meq/L Reference Range: No NormalsCREATININE, RANDOM [id number] 19:14:00 Test Item Value Reference Range Comments CREATININE URINE (BEAKER) (test hwqk=154) 131.4 mg/dL Reference Range: No NormalsPROTEIN, RANDOM [id number] 19:14:00 Test Item Value Reference Range Comments PROTEIN, URINE (BEAKER) (test ueir=1335) 23 mg/dL 0-14 OSMOLALITY, [id number] 19:00:00 Test Item Value Reference Range Comments OSMOLALITY URINE (BEAKER) (test weuf=864) 346 mOsm/kg 40-1400 RAD, CHEST, 1 VIEW, NON [id number] 16:22:00Reason for exam:->central line placementShould this be performed at the bedside?->YesFINAL REPORT TECHNIQUE: Frontal chest radiograph dated 07/16/2017. CLINICAL HISTORY: Central line placement COMPARISON STUDY: Chest radiograph performed earlier the same day. IMPRESSION:Right-sided [place]-Ezequiel catheter tip projects over the affected region of superior vena cava/right atrial junction. There is streaky atelectasis in the left lung base. No focal consolidation. No pleural effusion or pneumothorax. Cardiomediastinal silhouette is normal in size. No pulmonary edema.Midline sternotomy wires are intact and well aligned. No fracture. Bones are osteopenic. Signed: Ravi Griffin MDReport Verified Date/Time: 07/16/2017 16:22:02 Reading Location: [facility] Radiology Reading Room RAD, CHEST, 1 VIEW, NON [id number] 09:32:00Reason for exam:->cxfShould this be performed at the bedside?->YesFINAL REPORT CLINICAL HISTORY: cxf TECHNIQUE: 1 view of the chest. COMPARISON: None IMPRESSION: Pulmonary vascular congestion is noted with diffuse bilateral interstitial opacities and left lung atelectasis. There is blunting of the left costophrenic angle. The cardiomediastinal silhouette is magnified by technique with sternotomy wires. Signed: Partha Abreu MDReport Verified Date/Time: 09:32:51 Reading Location: [facility] Radiology Reading Room B-TYPE NATRIURETIC FACTOR (BNP)2017-07-16 02:38:00 Test Item Value Reference Range Comments B-TYPE NATRIURETIC PEPTIDE (BEAKER) (test 251 pg/mL 0-100 ktnd=241) BASIC METABOLIC [id number] 02:32:00 Test Item Value Reference Range Comments SODIUM (BEAKER) (test 142 meq/L 136-145 fjpn=122) POTASSIUM (BEAKER) (test 4.0 meq/L 3.5-5.1 Specimen slightly ramf=930) hemolyzed CHLORIDE (BEAKER) (test 106 meq/L 98-107 sihd=029) CO2 (BEAKER) (test 23 meq/L 22-29 lwwo=303) BLOOD UREA NITROGEN 26 mg/dL 7-21 (BEAKER) (test tdhi=696) CREATININE (BEAKER) (test 1.41 mg/dL 0.57-1.25 Specimen slightly gdis=556) hemolyzed GLUCOSE RANDOM (BEAKER) 152 mg/dL 70-105 (test fsjp=367) CALCIUM (BEAKER) (test 8.8 mg/dL 8.4-10.2 upsj=614) EGFR (BEAKER) (test 48 mL/min/1.73 sq m ESTIMATED GFR IS NOT pzop=8510) ACCURATE CREATININE CLEARANCE IN PREDICTING GLOMERULAR FILTRATION RATE. ESTIMATED GFR IS NOT APPLICABLE FOR DIALYSIS PATIENTS. Specimen slightly ictericLACTIC ACID, VENOUS, WHOLE [id number] 02:28:00 Test Item Value Reference Range Comments LACTATE BLOOD VENOUS (2) 2.1 mmol/L 0.5-2.2 Specimen slightly hemolyzed (BEAKER) (test gslm=4977) Effective 07/04/2015: Units/Reference Range ChangeNew: 0.5-2.2 mmol/L Previous: 5 -20 mg/dLCBC (HEMOGRAM ONLY)2017-07-16 02:02:00 Test Item Value Reference Range Comments WHITE BLOOD CELL COUNT (BEAKER) (test sbxl=218) 13.3 K/ L 3.5-10.5 RED BLOOD CELL COUNT (BEAKER) (test ting=041) 2.79 M/ L 4.63-6.08 HEMOGLOBIN (BEAKER) (test ctvc=027) 9.5 GM/DL 13.7-17.5 HEMATOCRIT (BEAKER) (test yqsz=101) 29.4 % 40.1-51.0 MEAN CORPUSCULAR VOLUME (BEAKER) (test abxe=006) 105.4 fL 79.0-92.2 MEAN CORPUSCULAR HEMOGLOBIN (BEAKER) (test 34.1 pg 25.7-32.2 lwxo=127) MEAN CORPUSCULAR HEMOGLOBIN CONC (BEAKER) (test 32.3 GM/DL 32.3-36.5 agga=481) RED CELL DISTRIBUTION WIDTH (BEAKER) (test 13.7 % 11.6-14.4 sujl=438) PLATELET COUNT (BEAKER) (test flow=939) 138 K/CU MM 150-450 MEAN PLATELET VOLUME (BEAKER) (test dpkk=074) 11.2 fL 9.4-12.4 NUCLEATED RED BLOOD CELLS (BEAKER) (test 0 /100 WBC 0-0 npmh=604) HEMOGLOBIN AND [id number] 19:53:00 Test Item Value Reference Range Comments HEMOGLOBIN (BEAKER) (test xtyp=933) 9.4 GM/DL 13.7-17.5 HEMATOCRIT (BEAKER) (test pgkw=152) 29.0 % 40.1-51.0 B-TYPE NATRIURETIC FACTOR (BNP)2017-07-15 16:30:00 Test Item Value Reference Range Comments B-TYPE NATRIURETIC PEPTIDE (BEAKER) (test 155 pg/mL 0-100 vhnm=136) [id number] 16:23:00 Test Item Value Reference Range Comments MAGNESIUM (BEAKER) (test 2.0 mg/dL 1.6-2.6 Specimen slightly hemolyzed hhve=871) BASIC METABOLIC [id number] 16:23:00 Test Item Value Reference Range Comments SODIUM (BEAKER) (test 138 meq/L 136-145 kjmq=495) POTASSIUM (BEAKER) (test 3.9 meq/L 3.5-5.1 Specimen slightly xjbv=124) hemolyzed CHLORIDE (BEAKER) (test 103 meq/L 98-107 shod=906) CO2 (BEAKER) (test 26 meq/L 22-29 mwvr=249) BLOOD UREA NITROGEN 21 mg/dL 7-21 (BEAKER) (test mnze=494) CREATININE (BEAKER) (test 1.00 mg/dL 0.57-1.25 Specimen slightly uqsd=084) hemolyzed GLUCOSE RANDOM (BEAKER) 145 mg/dL 70-105 (test qcin=504) CALCIUM (BEAKER) (test 8.9 mg/dL 8.4-10.2 oecw=907) EGFR (BEAKER) (test 71 mL/min/1.73 sq m ESTIMATED GFR IS NOT vjmp=3445) ACCURATE CREATININE CLEARANCE IN PREDICTING GLOMERULAR FILTRATION RATE. ESTIMATED GFR IS NOT APPLICABLE FOR DIALYSIS PATIENTS. Specimen slightly ictericLACTIC ACID, VENOUS, WHOLE [id number] 16:19:00 Test Item Value Reference Range Comments LACTATE BLOOD VENOUS (2) 1.7 mmol/L 0.5-2.2 Specimen slightly hemolyzed (BEAKER) (test nnhx=7709) Effective 07/04/2015: Units/Reference Range ChangeNew: 0.5-2.2 mmol/L Previous: 5 -20 mg/dLSpecimen slightly ictericCBC (HEMOGRAM ONLY)2017-07-15 16:09:00 Test Item Value Reference Range Comments WHITE BLOOD CELL COUNT (BEAKER) (test vshx=589) 10.6 K/ L 3.5-10.5 RED BLOOD CELL COUNT (BEAKER) (test abdx=321) 2.85 M/ L 4.63-6.08 HEMOGLOBIN (BEAKER) (test fyay=409) 9.7 GM/DL 13.7-17.5 HEMATOCRIT (BEAKER) (test eqkt=936) 29.5 % 40.1-51.0 MEAN CORPUSCULAR VOLUME (BEAKER) (test xika=252) 103.5 fL 79.0-92.2 MEAN CORPUSCULAR HEMOGLOBIN (BEAKER) (test 34.0 pg 25.7-32.2 rumn=228) MEAN CORPUSCULAR HEMOGLOBIN CONC (BEAKER) (test 32.9 GM/DL 32.3-36.5 tbqm=005) RED CELL DISTRIBUTION WIDTH (BEAKER) (test 13.4 % 11.6-14.4 enqb=414) PLATELET COUNT (BEAKER) (test fuxt=357) 127 K/CU MM 150-450 MEAN PLATELET VOLUME (BEAKER) (test owmf=841) 11.5 fL 9.4-12.4 NUCLEATED RED BLOOD CELLS (BEAKER) (test 0 /100 WBC 0-0 qmpk=101) [id number] 12:47:00 Test Item Value Reference Range Comments ACTIVATED CLOTTING TIME 224 sec TESTED AT [address] (BEAKER) (test aold=818) [place] [address] [id number] 12:47:00 Test Item Value Reference Range Comments ACTIVATED CLOTTING TIME 257 sec TESTED AT [place] [address] [facility] (BEAKER) (test mqav=809) [place] [address] [id number] 12:47:00 Test Item Value Reference Range Comments ACTIVATED CLOTTING TIME 219 sec TESTED AT [address] (BEAKER) (test rksm=097) [place] [address]
[2018-09-03] MEDS ORDERED: LACTULOSE 20 GM/30 ML UCUP PO PRN (18:37)
--- NOTE | 2018-09-03 18:52 | R.HP ---
FACILITY: [facility] ENCOUNTER DATE AND TIME: 09/03/2018 18:47 (CDT) MR#: [id number] NAME KAYLEE ARRIAGA ADDRESS: [address] [place] [address] CITY: [place]IP [address] PHONE: DATE OF : 1930 AGE: 88 SSN# [id number] GENDER: Male DEXTERITY Right-handed MARITAL STATUS RACE White PRE-HOSPITAL LIVING SETTING 01 - Home (private home/apt. board/care, assisted living, retirement, transitional living) PRE-HOSPITAL LIVING WITH Family/Relatives ENCOUNTER PHYSICIAN: Dr. Juan Carlos August M.D. REFERRING DOCTOR: Mainor Melgoza DATE OF ADMISSION: 09/03/2018 18:48 (Central Daylight Time) REFERRING FACILITY [facility] HOME TYPE AND DETAILS: Type of home: single family house # of steps to enter the residence: 0 # of steps within the residence: 0 # of levels in the residence: 1 ADMISSION DIAGNOSIS: GI Bleed/metabolic encephalopathy ONSET DATE: 08/22/2018 PRIMARY DIAGNOSIS-RELATED SURGERIES: No surgeries related to the primary diagnosis were performed. SECONDARY/COMORBID DIAGNOSES (TIERED): - N/A acute upper GI Bleed toxic metabolic encephalopathy atrial fibrillation w/rvr diabetes mellitus type 2 BPH CAD cardiac cirrhosis HCC HTN HLD HISTORY OF PRESENT ILLNESS (HPI): Pt. is a 88 yo Right-handed white male. On 08/22/2018 he was admitted to [facility] with diagnosis GI Bleed/metabo lic encephalopathy. His impairment category is Medically Complex Conditions 17 - Other Medically Complex Conditions (17. 9). Pre-morbidly, Pt. was independent/mod-I in Self-Care, Sphincter Control, Transfers Control, Communica tion, Social Cognition, and Locomotion; and he had good Sphincter Control. Currently, he has deficits of Self-Care, Transfers Control, Communication, Social Cognition, Enduranc e, Balance, Safety Awareness, and Locomotion. Pt. is now referred to [facility] for acute in-patient rehabilitation in order to maximize patient's functional independence in activities of daily living, strength, ROM, and mobi lity. Patient has realistic goal of being discharged at assistance level 4-Joe to reside at Home with Fam deon/Relatives. 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 SOCIAL HISTORY: - Home Living Family/Relatives REVIEW OF SYSTEMS: - Gen No Chills Fatigue No Fever - Eyes No Double Vision No itchiness - ENMT No Difficulty Swallowing - CVS No Chest Discomfort No Chest Pain Fatigue No Weight Gain - Resp No Cough No Shortness of Breath - GI Continent No Abdominal Pain Constipation No Diarrhea - Continent No Kidney Pain No Painful Urination No Urinary Urgency - MSK No Joint Pain No Muscle Cramps Stiffness - Skin No Itching No Rash No Suspicious Lesions - Neuro Coordination Difficulty No Difficulty with Concentration Memory Loss No Seizures Weakness - Psych No Anxiety No Depression No HIV Exposure No Persistent Infections No Seasonal Allergies - Endo No Cold/Heat Intolerance No Excessive Hunger No Excessive Thirst No Excessive Urination PHYSICAL EXAM - Gen Alert and awake Lying in bed No apparent distress Oriented to: person, time, and place - Skin Bruising on the dorsal right more than left hand, forearm and elbow. Atraumatic - Eyes No abnormalities - ENMT No abnormalities - Neck No abnormalities - CVS RRR - Chest No abnormalities - Abd +bowel sounds - GI Soft Deferred - No abnormalities - Ext No significant edema. - MSK 4+/5 weakness in both lower extremities. - Neuro 4/5 strength in both lower extremities. - Psych No abnormalities VITAL SIGNS Temperature: 99.1 F SBP/DBP: 119/56 Pulse: 70 Resp: 14 NURSING: - Shower allowing shower - Lab Results blood Sugar Check ACHS ACTIVITIES OOB only with supervision FUNCTIONAL STATUS: - Self-Care A. Eating Ind Joe B. Grooming Ind Charo C. Bathing Ind Joe D. Dressing - Upper Ind sup E. Dressing - Lower Ind modA F. Toileting Ind Joe - Sphincter Control G: Bladder control Ind Ind H: Bowel control Ind Ind - Transfers Control I. Bed/Chair/Wheelchair Ind Joe J. Toilet Ind Joe K. Tub/Shower Ind Joe - Locomotion L. Walk/Wheelchair (B) Ind Joe M. Stairs Ind ADNO - Communication N. Comprehension (B) Ind Joe O. Expression (B) Ind Joe - Social Cognition P. Social Interaction Ind Joe Q. Problem Solving Ind Joe R. Memory Ind Joe - Endurance Fair - Balance Fair - Safety Awareness Poor CURRENT FUN. DEFICITS: Self-Care, Transfers Control, Communication, Social Cognition, Endurance, Balance, Safety Awareness, and Locomotion MEDICATIONS: - Other See attached MAR (Medication Administration Record) [id number].pdf ASSESSMENT: Pt. is a 88 yo Right-handed white male.On 08/22/2018 he was admitted to [facility] with diagnosis GI Bleed/metabolic encephalopathy.His impairment category is Medically Comple x Conditions 17 - Other Medically Complex Conditions (17.9).Pre-morbidly, Pt. was independent/mod-I in Self-Care, Sphincter Control, Transfers Control, Communication, Social Cognition, and Locomotion; and he had good Sphincter Control.Currently, he has deficits of Self-Care, Transfers Control, Communi cation, Social Cognition, Endurance, Balance, Safety Awareness, and Locomotion.Pt. is now referred to [facility] for acute in-patient rehabilitation in order to maximize patient's functional independence in activities of daily living, strength, ROM, and mobility.- Rehab Goal Patient has realistic goal of being discharged at assistance level 4-Joe to reside at Home with Fam deon/Relatives. - Physical Therapy Gait dysfunction - to improve, our physical therapists will perform initial evaluation of pt's status upon admission and devise an individualized program for Gait Training, and Wheel Chair mobility Inability to transfer - to improve, our physical therapists will perform initial evaluation of pt's s tatus upon admission and devise an individualized program for Bed mobility Need for home safety evaluation - to improve, our physical therapists will perform initial evaluation of pt's status upon admission and devise an individualized program for Home Evaluation Need in caregiver upon discharge - to improve, our physical therapists will perform initial evaluatio n of pt's status upon admission and devise an individualized program for Caregiver Training New precaution - to improve, our physical therapists will perform initial evaluation of pt's status u emily admission and devise an individualized program for Patient precaution education Edema - to improve, our physical therapists will perform initial evaluation of pt's status upon admi ssion and devise an individualized program for Elevation Training, and Lymphedema Therapy Poor balance - to improve, our physical therapists will perform initial evaluation of pt's status upo n admission and devise an individualized program for Balance Training Poor endurance - to improve, our physical therapists will perform initial evaluation of pt's status u emily admission and devise an individualized program for Endurance Training Weakness - to improve, our physical therapists will perform initial evaluation of pt's status upon ad mission and devise an individualized program for Aquatic Therapy, Neuromuscular Reeducation, and Stre ngthening Achieving independence - to improve, our physical therapists will perform initial evaluation of pt's status upon admission and devise an individualized program for Community Reintegration Activities - Occupational Therapy ADL deficits - to improve, our occupation therapists will perform initial evaluation of pt's status u emily admission and devise an individualized program for Bathing, Bed mobility, Community Reintegration , Cooking, Dressing, Eating, Fine Motor Skills, Grooming, Homemaking, Kitchen Mobility, Laundry, Sheree ent Education, Safety Awareness, Splinting - Positioning, Transfers(Toilet, Tub, Shower), and Wheel C hair Management Cognitive deficits - to improve, our occupation therapists will perform initial evaluation of pt's st atus upon admission and devise an individualized program for Cognition - orientation Need for care management associate - to improve, our occupation therapists will perform initial evaluation of pt's s tatus upon admission and devise an individualized program for Caregiver Training Weakness - to improve, our occupation therapists will perform initial evaluation of pt's status upon admission and devise an individualized program for Aquatic Therapy, Balance, Endurance, UE ROM, and U E strengthening MEDICAL PLAN: - Diet Type Start Regular - Diet - Liquid Texture Start Regular - Tube Feed Start N/A - Lab Results blood Sugar Check ACHS - Other See attached MAR (Medication Administration Record) [id number].pdf - Diet - Solid Texture Regular - Shower shower DISCHARGE PLAN: - Estimated Length of Stay (days) 13. - Consensus on plan Discharge plan has been discussed with primary caregiver. Patient/Family is in agreement with the maya n. Primary caregiver is in agreement with the plan. - Patient/Family Goals Return home with assistance. - Planned Living Setting Upon Discharge Home, to live with Family/Relatives. SIGNATURE PANEL: (CDT)
--- NOTE | 2018-09-03 18:53 | PAPE ---
PATIENT: [facility] MR# [id number] REFERRING DOCTOR Maionr Melgoza EVALUATION DATE AND TIME 09/03/2018 18:51 (CDT) NAME KAYLEE ARRIAGA DATE OF 1930 AGE 88 PHONE N# [id number] GENDER male EVALUATING PHYSICIAN Dr. Juan Carlos August M.D. ADMISSION DIAGNOSIS: GI Bleed/metabolic encephalopathy ONSET DATE 08/22/2018 SECONDARY/COMORBID DIAGNOSES TIERED: - N/A acute upper GI Bleed toxic metabolic encephalopathy atrial fibrillation w/rvr diabetes mellitus type 2 BPH CAD cardiac cirrhosis HCC HTN HLD POST-ADMISSION FUNCTIONAL/MEDICAL STATUS: - Bladder Same accident frequency: Ind - No accidents in the past 7 days - Bowel Same accident frequency: Ind - No accidents in the past 7 days - Walking Same score based on distance walked: 3(>=150ft) STATUS CHANGE EVALUATION: No change in Functional or Medical Status is identified compared with Pre-Admission screening. PATIENT NEEDS CLOSE MEDICAL SUPERVISION BY A REHABILITATION PHYSICIAN FOR: Bowel and Bladder Management Coordination of Treatment Team Diabetes Management Medical and Co-Morbidity Management PATIENT REQUIRES 24X7 REHAB NURSING FOR MEDICAL AND FUNCTIONAL MGT. OF THE FOLLOWING DEFICITS: ADL's Ambulation Bowel and Bladder Management Cognition Communication Disease Management Medication Management Patient/Family Education Providing Safe Environment Transfers PATIENT REQUIRES INTENSIVE, COORDINATED INTERDISCIPLINARY APPROACH TO REHAB: Arranging Home Equipment/Services Discharge Planning Family Intervention/Training Political Aide/Case Management LIST OF IDENTIFIED AND POTENTIAL PROBLEMS: Alteration in leisure activities Bladder, Incontinence Bowel, Incontinence Diabetes, Hyperglycemia/hypoglycemia Issues Infection, Actual or Potential Mobility Impaired Pain, Alteration in Comfort Self Care Deficit Skin Integrity, Actual or Potential Urinary Tract Infection (UTI), Actual or Potential RISK FOR COMPLICATIONS - CAD CHF. Cardiac Arrest. CT. Pain. INTERVENTIONS - CAD 02 sats. Activity management. Medications. VS. PATIENT COULD BE AT RISK FOR COMPLICATIONS FROM ADVERSE MEDICAL CONDITIONS DUE TO HIS/HER COMORBIDITI ES AND THE RIGORS OF THE INTENSIVE REHABILLITATION PROGRAM. METHODS OR INTERVENTIONS TO AVOID COMPLIC ATIONS INCLUDE: - Infection Clinical staff to assess and manage the signs and symptoms of infection including fever, redness, war mth, etc. - Urinary Tract Infection - Falls Patient will be evaluated for Fall Precautions and will be placed on Fall Precautions as indicated pe r protocol. - Skin Breakdown Nursing will assess skin daily using assessment tool and will place on Skin Breakdown Precautions as indicated per protocol. - Pain Clinical staff may employ non-medication methods such as massage, distraction, decrease stimulus, etc . as needed. Clinical staff will assess patient's pain level every shift per protocol to assess and e nsure pain management effectiveness. Medications will be given and the pain level re-assessed. PRELIMINARY PLAN OF CARE: - Physical Therapy Patient needs Physical Therapy for a daily minimum of 1.5 hours at least 5 out of 7 days, to improve: Mobility, Strengthening, Transfers, Stretching, ROM, Endurance, Ability to manage stairs, Gait, and Balance. - Speech Therapy Patient needs Speech Therapy for a daily minimum of 0.5 hours at least 5 out of 7 days, to improve: S wallowing, Cognition, Language Skills, and Compensatory Strategies. - Rehabilitation Nursing Patient requires 24x7 Rehabilitation Nursing for: Pain Issues, Identifying and preventing risk factor s, Monitoring and reporting current medical conditions, Assisting with ambulation and transfer, Allegra ting with all ADL-s, Teaching patients about disease process and medications, Family teaching, Provid ing safe environment, Bowel and Bladder Issues, Skin Integrity, and Medication Management. Patient needs Political Aide and/or Case Management for: Discharge Planning, Arranging Home Equipmen t or Services, and Family Interventions. - Dietary and Nutrition Services Patient needs Dietary and Nutrition Services for: Adequate Nutrition, Nutritional Supplements, and Nu tritional Education. - Occupational Therapy Patient needs Occupational Therapy for a daily minimum of 1.5 hours at least 5 out of 7 days, to impr ove Activities of Daily Living, including: Eating, Grooming, Bathing, Dressing, Toileting, Toilet Tra nsfers, Community Reintegration, Higher functional activities, Adaptive Equipment, Splinting, Househo ld Tasks, and Other activities as determined. POTENTIAL FUNCTIONAL GOALS FOR PATIENT TO ACHIEVE BY DISCHARGE: - Safety Precaution Patient will remain free from falls or injury at time of discharge. - Bed Mobility Patient will perform bed mobility at 4-Joe level of assistance. - Transfers Patient will complete transfers from bed to chair at 4-Joe level of assistance. - Mobility Patient will ambulate 150 ft with 4-Joe level of assistance with RW. PATIENT REHAB POTENTIAL Angela ARRIAGA is able and expected to receive 3 hours of individualized therapy daily on at least 5 geoffrey 7 days Angela ARRIAGA's prognosis for significant practical improvement within a reasonable period of time appear s Good Expected level of measurable improvement will be of a practical value to Angela ARRIAGA's functional capac ity or adaptations to impairments Has a viable Discharge Plan Medically appropriate; condition is sufficiently stable to participate in intensive rehab program DISCHARGE PLAN: - Estimated Length of Stay (days) 13. - Consensus on plan Discharge plan has been discussed with primary caregiver. Patient/Family is in agreement with the maya n. Primary caregiver is in agreement with the plan. - Patient/Family Goals Return home with assistance. - Planned Living Setting Upon Discharge Home, to live with Family/Relatives. CONCLUSION ON REHABILITATION NECESSITY: I have evaluated patient's pre-admission functional status and, comparing it to the patient's post-ad mission functional status now, I conclude that the pre-admission assessment was accurate. Patient's c ondition on admission supports the medical necessity of admission to [facility]. It is safe to proceed with patient's therapy program. SIGNATURE PANEL: (CDT)
[2018-09-03] MEDS ORDERED: FERROUS SULFATE 325 MG TAB PO SCH (19:00)
[2018-09-03] MEDS ORDERED: METOPROLOL XL 25 MG TAB PO SCH (20:00)
[2018-09-03 21:18] LABS: Urine Appearance CLEAR; Urine Bilirubin NEGATIVE (NEG); Urine Blood NEGATIVE (NEG); Urine Color DK YELLOW; Urine Glucose NEGATIVE (NEG); Urine Protein 1+ (NEG)
[2018-09-03 21:45] LABS: Urine Bacteria 20-50 /HPF (NONE SEEN); Urine Culture Reflex Order NOT NEEDED; Urine RBC NONE SEEN /HPF (NONE SEEN)
[2018-09-03] MEDS: DOCUSATE NA 100 MG CAP PO SCH (22:10)
[2018-09-03] MEDS: ATORVASTATIN 10 MG TAB PO SCH (22:11)
[2018-09-03] MEDS: FUROSEMIDE 20 MG TABLET PO SCH (22:11)
[2018-09-04 06:14] LABS: Absolute Lymphocytes (CBC) 0.6 K/uL (0.7-4.9); Basophils % 0.8 % (0-1.3); Eosinophils % 5.8 % (0-4.4); Hematocrit 27.4 % (39.6-49.0); Lymphocytes % 14.2 % (15.3-44.8); MPV 7.9 fL (7.6-11.3); Monocytes % 8.2 % (3.3-12.3); RBC Red Blood Cell Count 2.79 M/uL (4.33-5.43)
[2018-09-04] MEDS: PANTOPRAZOLE 40MG TABLET PO SCH (06:25)
[2018-09-04 06:35] LABS: Albumin 2.7 g/dL (3.4-5.0); Magnesium 2.5 mg/dL (1.8-2.4); Potassium 4.2 mmol/L (3.5-5.1); Prealbumin 12.3 mg/dL (20-40)
[2018-09-04] MEDS ORDERED: HOME MED 1 EA UNK (Magnesium Oxide [Magnesium] 500 MG) PO SCH (08:00)
[2018-09-04] MEDS: FUROSEMIDE 20 MG TABLET PO SCH (08:00)
[2018-09-04] MEDS ORDERED: DOCUSATE SODIUM 50 MG PO SCH (08:00)
[2018-09-04] MEDS ORDERED: HOME MED 1 EA UNK (Folic Acid [Folic Acid] 0.8 MG) PO SCH (08:00)
[2018-09-04] MEDS: TORSEMIDE 20 MG TAB PO SCH ×2 (08:00→10:48)
[2018-09-04] MEDS ORDERED: CLOPIDOGREL 75 MG TABLET PO SCH (08:00)
[2018-09-04] MEDS: DOCUSATE NA 100 MG CAP PO SCH ×2 (08:41→20:00)
[2018-09-04] MEDS: TAMSULOSIN 0.4 MG SR CAP PO SCH (08:41)
[2018-09-04] MEDS: METOPROLOL TAR 25 MG TAB PO SCH ×2 (08:41→20:41)
[2018-09-04] MEDS: SPIRONOLACTONE 25 MG TABLET PO SCH (08:42)
[2018-09-04] MEDS: CYANOCOBALAMIN 1,000 MCG TAB PO SCH (08:42)
--- NOTE | 2018-09-04 08:54 | FAST ---
ENCOUNTER DATE AND TIME: 09/03/2018 08:00 (CDT) NAME KAYLEE ARRIAGA DATE OF : 1930 DATE OF ADMISSION: 09/03/2018 18:48 (CDT) PHONE: AGE: 88 SSN# [id number] GENDER: Male ENCOUNTER PHYSICIAN: Dr. Juan Carlos August M.D. ADMISSION DIAGNOSIS: - Medically Complex Conditions 17 - Other Medically Complex Conditions (17.9) GI Bleed/metabolic encephalopathy. EATING: EATING - STEP 1: Does the patient require the assistance of a person or device, or need extra time when eating? No. EATING - SCORE: 7-IND GROOMING: Comb/brush hair Wash, rinse, and dry face Wash, rinse, and dry hands GROOMING - STEP 1: Does the patient require the assistance of a person or device, or need extra time when grooming? Yes. GROOMING - STEP 2: Does the patient require the assistance of a helper? Yes. GROOMING - STEP 3: How much assistance does the patient require from the helper? Incidental touching assistance from the helper while grooming GROOMING - SCORE: 4-MIN BATHING: Abdomen Buttocks Chest Left arm Left lower leg and foot Left upper leg Perineal area Right arm Right lower leg and foot Right upper leg BATHING - STEP 1: Does the patient require the assistance of a person or device, or need extra time when bathing? Yes. BATHING - STEP 2: Does the patient require the assistance of a helper? Yes. BATHING - STEP 3: How much assistance does the patient require from the helper? Only incidental help such as placement of a wash cloth in his/her hand a few times as s/he bathes OR help to bathe just one or two areas of the body BATHING - SCORE: 4-MIN DRESSING - UPPER BODY: Patient is not dressing in public clothing ARTICLES SCORE Total number of steps: 0 DRESSING - UPPER BODY - SCORE: 0-UNK DRESSING - LOWER BODY: Sock - Left foot (one step) Sock - Right foot (one step) Underwear (three steps) ARTICLES SCORE Total number of steps: 5 DRESSING - LOWER BODY - STEP 1: Does the patient require help from a person or device, or need extra time when dressing below the annel st? Yes. DRESSING - LOWER BODY - STEP 2: Does the patient require the assistance of a helper? Yes. DRESSING - LOWER BODY - STEP 3: Does the helper touch the patient while dressing? Yes. DRESSING - LOWER BODY - STEP 4: How many of the total steps does the patient complete on his/her own? 2 DRESSING - LOWER BODY - STEP 5: Does patient require total assistance for dressing below the waist such as the helper holding clothin g and performing basically all the activities? No. DRESSING - LOWER BODY - SCORE: 2-MAX TOILETING: TOILETING - STEP 1: Does the patient require the assistance of a person or device, or need extra time with toileting? Yes . TOILETING - STEP 2: Does the patient require the assistance of a helper? Yes. TOILETING - STEP 3: How much assistance does the patient require from the helper? Hands-on assistance from the helper TOILETING - STEP 4: Of the 3 tasks: 1) Adjusting clothing prior to use, 2) Cleansing of perineal area, 3) Adjusting clot dal[place] after use; How many tasks does the patient perform WITHOUT assistance of the helper? Three tasks with steadying assistance from the helper TOILETING - SCORE: 4-MIN BLADDER MANAGEMENT: Activity did not occur on this shift BLADDER MANAGEMENT - SCORE: 7-IND BOWEL MANAGEMENT: Activity did not occur on this shift BOWEL MANAGEMENT - SCORE: 7-IND TRANSFERS: BED, CHAIR, WHEELCHAIR: Activity did not occur on this shift TRANSFERS: BED, CHAIR, WHEELCHAIR - SCORE: 0-UNK TRANSFERS: TOILET: TRANSFERS: TOILET - STEP 1: Does the patient require the assistance of a person or device, or need extra time with toilet transfe rs? Yes. TRANSFERS: TOILET - STEP 2: Does the patient require the assistance of a helper? Yes. TRANSFERS: TOILET - STEP 3: How much assistance does the patient require from the helper? Patient performs half or more of the tr ansferring tasks TRANSFERS: TOILET - STEP 4: Does the patient need only incidental help such as contact guard or steadying during toilet transfer? Yes. TRANSFERS: TOILET - SCORE: 4-MIN TRANSFERS: SHOWER: TRANSFERS: SHOWER - STEP 1: Does the patient require the assistance of a person or device, or need extra time with shower transfe rs? Yes. TRANSFERS: SHOWER - STEP 2: Does the patient require the assistance of a helper? Yes. TRANSFERS: SHOWER - STEP 3: How much assistance does the patient require from the helper? Only incidental help such as contact gu arding or steadying during shower transfers, or help to lift one leg into the shower TRANSFERS: SHOWER - SCORE: 4-MIN TRANSFERS: TUB: Activity did not occur on this shift TRANSFERS: TUB - SCORE: 0-UNK LOCOMOTION: WALK: Activity did not occur on this shift LOCOMOTION: WALK - SCORE: 0-UNK LOCOMOTION: WHEELCHAIR: Activity did not occur on this shift LOCOMOTION: WHEELCHAIR - SCORE: 0-UNK LOCOMOTION: STAIRS: Activity did not occur on this shift LOCOMOTION: STAIRS - SCORE: 0-UNK COMPREHENSION: COMPREHENSION: TYPE: Both COMPREHENSION - STEP 1: Does the patient require help from a person or device, or need extra time to understand complex and a bstract ideas (such as current events, finances, discharge planning, medical issues, relationships, e tc)? No. COMPREHENSION - STEP 2: Does the patient need extra time, require an assistive device (such as glasses for visual comprehensi on or a hearing aid for auditory comprehension) or does s/he have mild difficulty understanding compl ex and abstract information? Yes. COMPREHENSION - SCORE: 6-ADELIA EXPRESSION EXPRESSION: TYPE: Both EXPRESSION - STEP 1: Does the patient require help from a person or device, or need extra time expressing complex and abst ract ideas (such as current events, finances, discharge planning, medical issues, relationships, etc) ? No. EXPRESSION - STEP 2: Does the patient need extra time, require an assistive device (such as augmentive communication syste m or a communication board), OR does s/he have mild difficulty expressing complex and abstract ideas (including mild dysarthria or mild word-find problems)? Yes. EXPRESSION - SCORE: 6-ADELIA SOCIAL INTERACTION: SOCIAL INTERACTION - STEP 1: Does the patient require a helper to interact with others in social and therapeutic situations? No. SOCIAL INTERACTION - STEP 2: Does the patient need extra time in social situations, OR does s/he interact with staff, other patien ts, and family members ONLY in structured environments, OR does s/he require medication for social in teraction? No. SOCIAL INTERACTION - SCORE: 7-IND PROBLEM SOLVING: PROBLEM SOLVING - STEP 1: Does the patient need help from a person or device, or need extra time to solve complex problems such as managing a checking account or confronting interpersonal problems? No. PROBLEM SOLVING - STEP 2: Does the patient require extra time to make decisions or solve problems, OR does s/he have slight dif ficulty reading, initiating, or self-correcting in unfamiliar situations? Yes, patient needs extra ti me. PROBLEM SOLVING - SCORE: 6-ADELIA MEMORY: MEMORY - STEP 1: Does the patient need help from a person or device, or need extra time to remember frequently encount ered people, daily routines, and executing requests? No. MEMORY - STEP 2: Does the patient have slight difficulty recognizing frequently encountered people, daily routines, or executing requests without the need for repetition or using self-initiated or environmental cues to remember? Yes. MEMORY - SCORE: 6-ADELIA SIGNATURE PANEL: The following modified sections: Eating - Score, Grooming - Score, Bathing - Score, Dressing - Upper Body - Score, Dressing - Lower Body - Score, Toileting - Score, Transfers: Bed, Chair, Wheelchair - S core, Transfers: Toilet - Score, Transfers: Tub - Score, Transfers: Shower - Score, Comprehension - S core, Expression - Score, Social Interaction - Score, Problem Solving - Score, Memory - Score were [e lectronically] signed by Concha Lynn OT on Sat Sep 04 2018 08:53:19 T-0500 ([facility] Day[facility])
--- NOTE | 2018-09-04 13:31 | FAST ---
ENCOUNTER DATE AND TIME: 09/04/2018 08:00 (CDT) NAME KAYLEE ARRIAGA DATE OF : 1930 DATE OF ADMISSION: 09/03/2018 18:48 (CDT) PHONE: AGE: 88 SSN# [id number] GENDER: Male ENCOUNTER PHYSICIAN: Dr. Juan Carlos August M.D. ADMISSION DIAGNOSIS: - Medically Complex Conditions 17 - Other Medically Complex Conditions (17.9) GI Bleed/metabolic encephalopathy. EATING: Activity did not occur on this shift EATING - SCORE: 0-UNK GROOMING: Activity did not occur on this shift GROOMING - SCORE: 0-UNK BATHING: Activity did not occur on this shift BATHING - SCORE: 0-UNK DRESSING - UPPER BODY: Activity did not occur on this shift Patient is not dressing in public clothing ARTICLES SCORE Total number of steps: 0 DRESSING - UPPER BODY - SCORE: 0-UNK DRESSING - LOWER BODY: Activity did not occur on this shift Patient is not dressing in public clothing ARTICLES SCORE Total number of steps: 0 DRESSING - LOWER BODY - SCORE: 0-UNK TOILETING: Activity did not occur on this shift TOILETING - SCORE: 0-UNK BLADDER MANAGEMENT: Activity did not occur on this shift BLADDER MANAGEMENT - SCORE: 7-IND BOWEL MANAGEMENT: Activity did not occur on this shift BOWEL MANAGEMENT - SCORE: 7-IND TRANSFERS: BED, CHAIR, WHEELCHAIR: TRANSFERS: BED, CHAIR, WHEELCHAIR - STEP 1: Does the patient require assistance of a person or device, or need extra time with bed, chair, or whe elchair transfers? Yes. TRANSFERS: BED, CHAIR, WHEELCHAIR - STEP 2: Does the patient require the assistance of a helper? Yes. TRANSFERS: BED, CHAIR, WHEELCHAIR - STEP 3: How much assistance does the patient require from the helper? Steadying/guiding assistance TRANSFERS: BED, CHAIR, WHEELCHAIR - SCORE: 4-MIN TRANSFERS: TOILET: Activity did not occur on this shift TRANSFERS: TOILET - SCORE: 0-UNK TRANSFERS: SHOWER: Activity did not occur on this shift TRANSFERS: SHOWER - SCORE: 0-UNK TRANSFERS: TUB: Activity did not occur on this shift TRANSFERS: TUB - SCORE: 0-UNK LOCOMOTION: WALK: LOCOMOTION: WALK - STEP 1: Does the patient need help from a person or device, or need extra time to walk 150 feet? Yes. LOCOMOTION: WALK - STEP 2: How much assistance does the patient require to walk a minimum of 150 feet? Only incidental help such as contact guarding or steadying LOCOMOTION: WALK - SCORE: 4-MIN LOCOMOTION: WHEELCHAIR: LOCOMOTION: WHEELCHAIR - STEP 1: Does the patient need help to go 150 feet in a wheelchair? Yes. LOCOMOTION: WHEELCHAIR - STEP 2: How much assistance does the patient need from the helper? Only incidental help such as around corner s or over thresholds LOCOMOTION: WHEELCHAIR - SCORE: 4-MIN LOCOMOTION: STAIRS: Activity did not occur on this shift LOCOMOTION: STAIRS - SCORE: 0-UNK COMPREHENSION: COMPREHENSION - SCORE: 0-UNK EXPRESSION EXPRESSION - SCORE: 0-UNK SOCIAL INTERACTION: SOCIAL INTERACTION - SCORE: 0-UNK PROBLEM SOLVING: PROBLEM SOLVING - SCORE: 0-UNK MEMORY: MEMORY - SCORE: 0-UNK SIGNATURE PANEL: The following modified sections: Transfers: Bed, Chair, Wheelchair - Score, Transfers: Toilet - Score , Locomotion: Walk - Score, Locomotion: Wheelchair - Score, Locomotion: Stairs - Score were [ana paula young] signed by Jasson Panchal PT on Sat Sep 04 2018 13:31:33 T-0500 (Central Daylight Time)
--- NOTE | 2018-09-04 14:27 | RAD REPORT ---
EXAM DESCRIPTION: RAD - Chest Pa And Lat (2 Views) - 09/04/2018 2:20 pm CLINICAL HISTORY: rule out pneumonia Chest pain. COMPARISON: Chest Single View dated 08/22/2018; Chest Single View dated 03/01/2018; Chest Pa And Lat (2 Views) dated 09/17/2017; Abdomen Acute Series dated 06/17/2017 FINDINGS: Emphysematous changes are noted throughout the lungs. A focal infiltrate is not detected. The heart is mildly enlarged with valve replacement noted. Sternotomy wires seen. IMPRESSION: Emphysematous changes are noted.
--- NOTE | 2018-09-04 15:59 | FAST ---
SHIFT START DATE/TIME: 09/04/2018 07:00 (CDT) SHIFT END DATE/TIME: 09/04/2018 19:00 (CDT) NAME KAYLEE ARRIAGA DATE OF : 1930 DATE OF ADMISSION: 09/03/2018 18:48 (CDT) PHONE: AGE: 88 N# [id number] GENDER: Male ENCOUNTER PHYSICIAN: Dr. Juan Carlos August M.D. ADMISSION DIAGNOSIS: - Medically Complex Conditions 17 - Other Medically Complex Conditions (17.9) GI Bleed/metabolic encephalopathy. EATING: EATING - STEP 1: Does the patient require the assistance of a person or device, or need extra time when eating? Yes. EATING - STEP 2: Does the patient require the assistance of a helper? No, patient only requires an assistive device, O R s/he takes more than reasonable time to eat, OR there is a safety concern, OR s/he requires modifie d food consistency EATING - SCORE: 6-ADELIA GROOMING: Comb/brush hair Wash, rinse, and dry face GROOMING - STEP 1: Does the patient require the assistance of a person or device, or need extra time when grooming? Yes. GROOMING - STEP 2: Does the patient require the assistance of a helper? Yes. GROOMING - STEP 3: How much assistance does the patient require from the helper? Incidental touching assistance from the helper while grooming GROOMING - SCORE: 4-MIN BATHING: Activity did not occur on this shift BATHING - SCORE: 0-UNK DRESSING - UPPER BODY: Activity did not occur on this shift ARTICLES SCORE Total number of steps: 0 DRESSING - UPPER BODY - SCORE: 0-UNK DRESSING - LOWER BODY: Activity did not occur on this shift ARTICLES SCORE Total number of steps: 0 DRESSING - LOWER BODY - SCORE: 0-UNK TOILETING: TOILETING - STEP 1: Does the patient require the assistance of a person or device, or need extra time with toileting? Yes . TOILETING - STEP 2: Does the patient require the assistance of a helper? Yes. TOILETING - STEP 3: How much assistance does the patient require from the helper? Hands-on assistance from the helper TOILETING - STEP 4: Of the 3 tasks: 1) Adjusting clothing prior to use, 2) Cleansing of perineal area, 3) Adjusting clot dal[place] after use; How many tasks does the patient perform WITHOUT assistance of the helper? Three tasks with steadying assistance from the helper TOILETING - SCORE: 4-MIN BLADDER MANAGEMENT: BLADDER MANAGEMENT - STEP 1: Does the patient control the bladder completely and intentionally without equipment or devices or med ications, and is always continent? Yes. BLADDER MANAGEMENT - SCORE: 7-IND BLADDER MANAGEMENT - FREQUENCY OF ACCIDENTS: BLADDER MANAGEMENT(FA) - STEP 1: How many accidents has the patient had during the current shift? 0 BOWEL MANAGEMENT: Activity did not occur on this shift BOWEL MANAGEMENT - SCORE: 7-IND BOWEL MANAGEMENT - FREQUENCY OF ACCIDENTS: BOWEL MANAGEMENT(FA) - STEP 1: How many accidents has the patient had during the current shift? 0 TRANSFERS: BED, CHAIR, WHEELCHAIR: TRANSFERS: BED, CHAIR, WHEELCHAIR - STEP 1: Does the patient require assistance of a person or device, or need extra time with bed, chair, or whe elchair transfers? Yes. TRANSFERS: BED, CHAIR, WHEELCHAIR - STEP 2: Does the patient require the assistance of a helper? Yes. TRANSFERS: BED, CHAIR, WHEELCHAIR - STEP 3: How much assistance does the patient require from the helper? Steadying/guiding assistance TRANSFERS: BED, CHAIR, WHEELCHAIR - SCORE: 4-MIN TRANSFERS: TOILET: TRANSFERS: TOILET - STEP 1: Does the patient require the assistance of a person or device, or need extra time with toilet transfe rs? Yes. TRANSFERS: TOILET - STEP 2: Does the patient require the assistance of a helper? Yes. TRANSFERS: TOILET - STEP 3: How much assistance does the patient require from the helper? Patient performs half or more of the tr ansferring tasks TRANSFERS: TOILET - STEP 4: Does the patient need only incidental help such as contact guard or steadying during toilet transfer? Yes. TRANSFERS: TOILET - SCORE: 4-MIN TRANSFERS: SHOWER: Activity did not occur on this shift TRANSFERS: SHOWER - SCORE: 0-UNK TRANSFERS: TUB: Activity did not occur on this shift TRANSFERS: TUB - SCORE: 0-UNK LOCOMOTION: WALK: Activity did not occur on this shift LOCOMOTION: WALK - SCORE: 0-UNK LOCOMOTION: WHEELCHAIR: Activity did not occur on this shift LOCOMOTION: WHEELCHAIR - SCORE: 0-UNK COMPREHENSION: COMPREHENSION: TYPE: Both COMPREHENSION - STEP 1: Does the patient require help from a person or device, or need extra time to understand complex and a bstract ideas (such as current events, finances, discharge planning, medical issues, relationships, e tc)? No. COMPREHENSION - STEP 2: Does the patient need extra time, require an assistive device (such as glasses for visual comprehensi on or a hearing aid for auditory comprehension) or does s/he have mild difficulty understanding compl ex and abstract information? Yes. COMPREHENSION - SCORE: 6-ADELIA EXPRESSION EXPRESSION: TYPE: Both EXPRESSION - STEP 1: Does the patient require help from a person or device, or need extra time expressing complex and abst ract ideas (such as current events, finances, discharge planning, medical issues, relationships, etc) ? No. EXPRESSION - STEP 2: Does the patient need extra time, require an assistive device (such as augmentive communication syste m or a communication board), OR does s/he have mild difficulty expressing complex and abstract ideas (including mild dysarthria or mild word-find problems)? Yes. EXPRESSION - SCORE: 6-ADELIA SOCIAL INTERACTION: SOCIAL INTERACTION - STEP 1: Does the patient require a helper to interact with others in social and therapeutic situations? No. SOCIAL INTERACTION - STEP 2: Does the patient need extra time in social situations, OR does s/he interact with staff, other patien ts, and family members ONLY in structured environments, OR does s/he require medication for social in teraction? No. SOCIAL INTERACTION - SCORE: 7-IND PROBLEM SOLVING: PROBLEM SOLVING - STEP 1: Does the patient need help from a person or device, or need extra time to solve complex problems such as managing a checking account or confronting interpersonal problems? No. PROBLEM SOLVING - STEP 2: Does the patient require extra time to make decisions or solve problems, OR does s/he have slight dif ficulty reading, initiating, or self-correcting in unfamiliar situations? Yes, patient needs extra ti me. PROBLEM SOLVING - SCORE: 6-ADELIA MEMORY: MEMORY - STEP 1: Does the patient need help from a person or device, or need extra time to remember frequently encount ered people, daily routines, and executing requests? No. MEMORY - STEP 2: Does the patient have slight difficulty recognizing frequently encountered people, daily routines, or executing requests without the need for repetition or using self-initiated or environmental cues to remember? Yes. MEMORY - SCORE: 6-ADELIA SIGNATURE PANEL: The following modified sections: Eating - Score, Grooming - Score, Bathing - Score, Dressing - Upper Body - Score, Dressing - Lower Body - Score, Toileting - Score, Bladder Management - Score, Bowel Man agement - Score, Transfers: Bed, Chair, Wheelchair - Score, Transfers: Toilet - Score, Transfers: Elayne wer - Score, Transfers: Tub - Score, Locomotion: Walk - Score, Locomotion: Wheelchair - Score, Compre hension - Score, Expression - Score, Social Interaction - Score, Problem Solving - Score, Memory - Sc ore were [electronically] signed by Brown GarrettNSlime on Sat Sep 04 2018 15:58:03 T-0500 ([facility] Day[facility])
[2018-09-04] MEDS: ENOXAPARIN 30 MG/0.3 ML SQ SCH (16:32)
[2018-09-04] MEDS ORDERED: ASPIRIN EC 81 MG TAB PO SCH (17:00)
[2018-09-04] MEDS: ATORVASTATIN 10 MG TAB PO SCH (20:41)
[2018-09-04] MEDS: FERROUS SULFATE 325 MG TAB PO SCH (20:42)
[2018-09-04] MEDS: ENSURE HIGH PROTEIN 237 ML CAN PO SCH (20:43)
[2018-09-04] MEDS: PROMOD 30 ML DOSE PO SCH (20:50)
--- NOTE | 2018-09-04 21:14 | HP ---
Date of Admission: 09/04/2018 Chief Complaint: Weakness. History Of Present Illness: This is an 88-year-old male patient who came into emergency room on 08/22/2018 with altered mental status and the patient was evaluated in our emergency room. His hemoglobin was 9, platelets 91, and he was transferred [facility] [place] [facility] with [facility] bleeding problem, altered mental status as we did not have any bail bond agent available. When he presented, he had upper GI bleed. His CAT scan of the brain done at our hospital was negative for any acute intracranial changes. The patient while in [place], had encephalopathy and he was evaluated by neurologist, had an EEG, which was unremarkable for any acute changes. Had another CT scan of the brain done in [place], which also did not show any acute changes. His altered mental status problem resolved. He had EGD done, which showed an esophageal ulcer with a blood clot over that ulcer area and that was determined to be the source of bleeding. Once his condition was stabilized he was transferred to our rehab floor for rehab therapy because of his significant debility, generalized weakness related to these medical problems as outlined above. When I saw him this morning he is awake, alert, back to his baseline, recognizes me, and answers appropriate questions. Medications: List reviewed. Allergies: METFORMIN AND LEVOFLOXACIN. Review of Systems: GI: As mentioned above. ETL ANALYST: As mentioned above. Constitutional: As mentioned above. All other systems reviewed and negative. Social History: Prior history of smoking, not at present time. Use of alcohol negative. Family History: Significant for Alzheimer disease, stroke, lung cancer. Past Surgical History: Significant for coronary artery angioplasty with stent placement, coronary artery bypass surgery, cholecystectomy. Past Medical History: Significant for small bowel obstruction in the past, hypertension, coronary artery disease, hyperlipidemia, type 2 diabetes mellitus , diverticulosis, benign prostatic hypertrophy, carotid artery disease, diastolic congestive heart failure, cirrhosis of liver, and anemia problem. Physical Examination: Vital Signs: Temperature 97.7, pulse 66, respiratory rate 18, blood pressure 140/66, height 5 feet 7 inches, weight 159 pounds. General: Awake, alert, oriented, not in distress. HEENT: Head atraumatic, normocephalic. Conjunctivae nonerythematous. Sclerae white. Mouth, no thrush or edema noted. Ears/Nose, no mass, lesion, discharge noted. Neck: Supple. No JVD, lymph nodes, bruit, thyromegaly noted. Lungs: Minimum basal rales in the left lung base, not using any accessory muscles of respiration. Heart: Normal heart sounds, no murmur or gallop. Abdomen: Soft, bowel sounds normal. No guarding, rigidity, tenderness, mass, hepatosplenomegaly, distention, or bruit noted. Extremities: No leg edema. No calf tenderness. Skin: Just below the lower lip area, the patient has a Band-Aid, which was placed this morning because just before I examined while he was in the shower, he had a small scab that fell off and started oozing some blood, so that was covered with a Band-Aid. No active bleeding noted when I saw him. Lymphatics: No lymph node enlargement in neck, supraclavicular, infraclavicular region. Neuro: No focal neurological deficit. Chest: Unremarkable. External Genitalia: Deferred. Rectal: Deferred. Laboratory Data: White count 4.3, hemoglobin 9.3, platelets 155. Sodium 140, potassium 4.2, chloride 108, bicarb 28, BUN 18, creatinine 1.21, glucose 91. Pre-albumin 12.3, magnesium 2.5. Impression: 1. Debility. 2. Generalized weakness. 3. Cirrhosis of liver. 4. Anemia due to gastrointestinal blood loss. 5. Coronary artery disease. 6. Hypertension. 7. Hyperlipidemia. 8. Type 2 diabetes mellitus. 9. Aortic valve stenosis. 10. Benign prostatic hypertrophy. 11. Diverticulosis. Plan: We will go ahead and admit the patient to rehab floor for further management. Consult Dr. August from rehab point of view. Medically, the patient is currently stable. We will continue his current medications. Continue iron supplement and we will see him tomorrow for followup. We will continue his pantoprazole and current diuretic therapy. We will get a chest x- ray done on him and I will evaluate him again tomorrow. APOORVA/MODL Voice ID: [id number] STEFFANY
--- NOTE | 2018-09-05 02:21 | FAST ---
SHIFT START DATE/TIME: 09/04/2018 19:00 (CDT) SHIFT END DATE/TIME: 09/05/2018 07:00 (CDT) NAME KAYLEE ARRIAGA DATE OF : 1930 DATE OF ADMISSION: 09/03/2018 18:48 (CDT) PHONE: AGE: 88 SSN# [id number] GENDER: Male ENCOUNTER PHYSICIAN: Dr. Juan Carlos August M.D. ADMISSION DIAGNOSIS: - Medically Complex Conditions 17 - Other Medically Complex Conditions (17.9) GI Bleed/metabolic encephalopathy. EATING: Activity did not occur on this shift EATING - SCORE: 0-UNK GROOMING: Activity did not occur on this shift GROOMING - SCORE: 0-UNK BATHING: Activity did not occur on this shift BATHING - SCORE: 0-UNK DRESSING - UPPER BODY: Patient is not dressing in public clothing ARTICLES SCORE Total number of steps: 0 DRESSING - UPPER BODY - SCORE: 0-UNK DRESSING - LOWER BODY: Patient is not dressing in public clothing ARTICLES SCORE Total number of steps: 0 DRESSING - LOWER BODY - SCORE: 0-UNK TOILETING: TOILETING - STEP 1: Does the patient require the assistance of a person or device, or need extra time with toileting? Yes . TOILETING - STEP 2: Does the patient require the assistance of a helper? Yes. TOILETING - STEP 3: How much assistance does the patient require from the helper? Hands-on assistance from the helper TOILETING - STEP 4: Of the 3 tasks: 1) Adjusting clothing prior to use, 2) Cleansing of perineal area, 3) Adjusting clot dal[place] after use; How many tasks does the patient perform WITHOUT assistance of the helper? Three tasks with steadying assistance from the helper TOILETING - SCORE: 4-MIN BLADDER MANAGEMENT: BLADDER MANAGEMENT - STEP 1: Does the patient control the bladder completely and intentionally without equipment or devices or med ications, and is always continent? No. BLADDER MANAGEMENT - STEP 2: Does the patient require the assistance of a helper? Yes. BLADDER MANAGEMENT - STEP 3: How much assistance does the patient require from the helper? Patient requires contact assistance fro m the helper BLADDER MANAGEMENT - STEP 4: How much contact assistance does the patient require from the helper? Patient requires minimal assist ance to maintain an external device - by positioning, and the patient performs 75% or more of bladder management tasks, while the helper provides less than 25% of the assistance to position patient on / off bedpan BLADDER MANAGEMENT - SCORE: 4-MIN BOWEL MANAGEMENT: Activity did not occur on this shift BOWEL MANAGEMENT - SCORE: 7-IND TRANSFERS: BED, CHAIR, WHEELCHAIR: TRANSFERS: BED, CHAIR, WHEELCHAIR - STEP 1: Does the patient require assistance of a person or device, or need extra time with bed, chair, or whe elchair transfers? Yes. TRANSFERS: BED, CHAIR, WHEELCHAIR - STEP 2: Does the patient require the assistance of a helper? Yes. TRANSFERS: BED, CHAIR, WHEELCHAIR - STEP 3: How much assistance does the patient require from the helper? Steadying/guiding assistance TRANSFERS: BED, CHAIR, WHEELCHAIR - SCORE: 4-MIN TRANSFERS: TOILET: TRANSFERS: TOILET - STEP 1: Does the patient require the assistance of a person or device, or need extra time with toilet transfe rs? Yes. TRANSFERS: TOILET - STEP 2: Does the patient require the assistance of a helper? Yes. TRANSFERS: TOILET - STEP 3: How much assistance does the patient require from the helper? Patient performs half or more of the tr ansferring tasks TRANSFERS: TOILET - STEP 4: Does the patient need only incidental help such as contact guard or steadying during toilet transfer? Yes. TRANSFERS: TOILET - SCORE: 4-MIN TRANSFERS: SHOWER: Activity did not occur on this shift TRANSFERS: SHOWER - SCORE: 0-UNK TRANSFERS: TUB: Activity did not occur on this shift TRANSFERS: TUB - SCORE: 0-UNK LOCOMOTION: WALK: Activity did not occur on this shift LOCOMOTION: WALK - SCORE: 0-UNK LOCOMOTION: WHEELCHAIR: Activity did not occur on this shift LOCOMOTION: WHEELCHAIR - SCORE: 0-UNK COMPREHENSION: COMPREHENSION: TYPE: Both COMPREHENSION - STEP 1: Does the patient require help from a person or device, or need extra time to understand complex and a bstract ideas (such as current events, finances, discharge planning, medical issues, relationships, e tc)? No. COMPREHENSION - STEP 2: Does the patient need extra time, require an assistive device (such as glasses for visual comprehensi on or a hearing aid for auditory comprehension) or does s/he have mild difficulty understanding compl ex and abstract information? Yes. COMPREHENSION - SCORE: 6-ADELIA EXPRESSION EXPRESSION: TYPE: Both EXPRESSION - STEP 1: Does the patient require help from a person or device, or need extra time expressing complex and abst ract ideas (such as current events, finances, discharge planning, medical issues, relationships, etc) ? No. EXPRESSION - STEP 2: Does the patient need extra time, require an assistive device (such as augmentive communication syste m or a communication board), OR does s/he have mild difficulty expressing complex and abstract ideas (including mild dysarthria or mild word-find problems)? Yes. EXPRESSION - SCORE: 6-ADELIA SOCIAL INTERACTION: SOCIAL INTERACTION - STEP 1: Does the patient require a helper to interact with others in social and therapeutic situations? No. SOCIAL INTERACTION - STEP 2: Does the patient need extra time in social situations, OR does s/he interact with staff, other patien ts, and family members ONLY in structured environments, OR does s/he require medication for social in teraction? Yes, patient needs extra time SOCIAL INTERACTION - SCORE: 6-ADELIA PROBLEM SOLVING: PROBLEM SOLVING - STEP 1: Does the patient need help from a person or device, or need extra time to solve complex problems such as managing a checking account or confronting interpersonal problems? No. PROBLEM SOLVING - STEP 2: Does the patient require extra time to make decisions or solve problems, OR does s/he have slight dif ficulty reading, initiating, or self-correcting in unfamiliar situations? Yes, patient needs extra ti me. PROBLEM SOLVING - SCORE: 6-ADELIA MEMORY: MEMORY - STEP 1: Does the patient need help from a person or device, or need extra time to remember frequently encount ered people, daily routines, and executing requests? No. MEMORY - STEP 2: Does the patient have slight difficulty recognizing frequently encountered people, daily routines, or executing requests without the need for repetition or using self-initiated or environmental cues to remember? Yes. MEMORY - SCORE: 6-ADELIA
[2018-09-05] MEDS: PANTOPRAZOLE 40MG TABLET PO SCH (07:00)
[2018-09-05] MEDS: METOPROLOL TAR 25 MG TAB PO SCH ×2 (08:00→17:27)
[2018-09-05] MEDS: SPIRONOLACTONE 25 MG TABLET PO SCH (08:00)
[2018-09-05] MEDS: CYANOCOBALAMIN 1,000 MCG TAB PO SCH (08:00)
[2018-09-05] MEDS: TORSEMIDE 20 MG TAB PO SCH (08:00)
[2018-09-05] MEDS: FERROUS SULFATE 325 MG TAB PO SCH ×2 (08:45→21:03)
[2018-09-05] MEDS: DOCUSATE NA 100 MG CAP PO SCH ×2 (08:46→20:00)
[2018-09-05] MEDS: FOLIC ACID 1 MG TABLET PO SCH (08:47)
[2018-09-05] MEDS: MAGNESIUM OXIDE 400 MG TAB PO SCH (08:47)
[2018-09-05] MEDS: TAMSULOSIN 0.4 MG SR CAP PO SCH (08:47)
[2018-09-05] MEDS: ENSURE HIGH PROTEIN 237 ML CAN PO SCH ×2 (12:10→21:03)
[2018-09-05] MEDS: PROMOD 30 ML DOSE PO SCH ×2 (12:10→21:03)
--- NOTE | 2018-09-05 13:35 | FAST ---
SHIFT START DATE/TIME: 09/05/2018 07:00 (CDT) SHIFT END DATE/TIME: 09/05/2018 19:00 (CDT) NAME KAYLEE ARRIAGA DATE OF : 1930 DATE OF ADMISSION: 09/03/2018 18:48 (CDT) PHONE: AGE: 88 N# [id number] GENDER: Male ENCOUNTER PHYSICIAN: Dr. Juan Carlos August M.D. ADMISSION DIAGNOSIS: - Medically Complex Conditions 17 - Other Medically Complex Conditions (17.9) GI Bleed/metabolic encephalopathy. EATING: EATING - STEP 1: Does the patient require the assistance of a person or device, or need extra time when eating? Yes. EATING - STEP 2: Does the patient require the assistance of a helper? No, patient only requires an assistive device, O R s/he takes more than reasonable time to eat, OR there is a safety concern, OR s/he requires modifie d food consistency EATING - SCORE: 6-ADELIA GROOMING: Comb/brush hair Wash, rinse, and dry face Wash, rinse, and dry hands GROOMING - STEP 1: Does the patient require the assistance of a person or device, or need extra time when grooming? Yes. GROOMING - STEP 2: Does the patient require the assistance of a helper? Yes. GROOMING - STEP 3: How much assistance does the patient require from the helper? Incidental touching assistance from the helper while grooming GROOMING - SCORE: 4-MIN BATHING: Activity did not occur on this shift BATHING - SCORE: 0-UNK DRESSING - UPPER BODY: Patient is not dressing in public clothing ARTICLES SCORE Total number of steps: 0 DRESSING - UPPER BODY - SCORE: 0-UNK DRESSING - LOWER BODY: Patient is not dressing in public clothing ARTICLES SCORE Total number of steps: 0 DRESSING - LOWER BODY - SCORE: 0-UNK TOILETING: TOILETING - STEP 1: Does the patient require the assistance of a person or device, or need extra time with toileting? Yes . TOILETING - STEP 2: Does the patient require the assistance of a helper? Yes. TOILETING - STEP 3: How much assistance does the patient require from the helper? Hands-on assistance from the helper TOILETING - STEP 4: Of the 3 tasks: 1) Adjusting clothing prior to use, 2) Cleansing of perineal area, 3) Adjusting clot dal[place] after use; How many tasks does the patient perform WITHOUT assistance of the helper? Three tasks with steadying assistance from the helper TOILETING - SCORE: 4-MIN BLADDER MANAGEMENT: BLADDER MANAGEMENT - STEP 1: Does the patient control the bladder completely and intentionally without equipment or devices or med ications, and is always continent? Yes. BLADDER MANAGEMENT - SCORE: 7-IND BLADDER MANAGEMENT - FREQUENCY OF ACCIDENTS: BLADDER MANAGEMENT(FA) - STEP 1: How many accidents has the patient had during the current shift? 0 BOWEL MANAGEMENT: BOWEL MANAGEMENT - STEP 1: Does the patient control bowels completely and intentionally without equipment devices or medications AND is always continent? Yes. BOWEL MANAGEMENT - SCORE: 7-IND BOWEL MANAGEMENT - FREQUENCY OF ACCIDENTS: BOWEL MANAGEMENT(FA) - STEP 1: How many accidents has the patient had during the current shift? 0 TRANSFERS: BED, CHAIR, WHEELCHAIR: TRANSFERS: BED, CHAIR, WHEELCHAIR - STEP 1: Does the patient require assistance of a person or device, or need extra time with bed, chair, or whe elchair transfers? Yes. TRANSFERS: BED, CHAIR, WHEELCHAIR - STEP 2: Does the patient require the assistance of a helper? Yes. TRANSFERS: BED, CHAIR, WHEELCHAIR - STEP 3: How much assistance does the patient require from the helper? Steadying/guiding assistance TRANSFERS: BED, CHAIR, WHEELCHAIR - SCORE: 4-MIN TRANSFERS: TOILET: TRANSFERS: TOILET - STEP 1: Does the patient require the assistance of a person or device, or need extra time with toilet transfe rs? Yes. TRANSFERS: TOILET - STEP 2: Does the patient require the assistance of a helper? Yes. TRANSFERS: TOILET - STEP 3: How much assistance does the patient require from the helper? Patient performs half or more of the tr ansferring tasks TRANSFERS: TOILET - STEP 4: Does the patient need only incidental help such as contact guard or steadying during toilet transfer? Yes. TRANSFERS: TOILET - SCORE: 4-MIN TRANSFERS: SHOWER: Activity did not occur on this shift TRANSFERS: SHOWER - SCORE: 0-UNK TRANSFERS: TUB: Activity did not occur on this shift TRANSFERS: TUB - SCORE: 0-UNK LOCOMOTION: WALK: Activity did not occur on this shift LOCOMOTION: WALK - SCORE: 0-UNK LOCOMOTION: WHEELCHAIR: Activity did not occur on this shift LOCOMOTION: WHEELCHAIR - SCORE: 0-UNK COMPREHENSION: COMPREHENSION: TYPE: Both COMPREHENSION - STEP 1: Does the patient require help from a person or device, or need extra time to understand complex and a bstract ideas (such as current events, finances, discharge planning, medical issues, relationships, e tc)? No. COMPREHENSION - STEP 2: Does the patient need extra time, require an assistive device (such as glasses for visual comprehensi on or a hearing aid for auditory comprehension) or does s/he have mild difficulty understanding compl ex and abstract information? Yes. COMPREHENSION - SCORE: 6-ADELIA EXPRESSION EXPRESSION: TYPE: Both EXPRESSION - STEP 1: Does the patient require help from a person or device, or need extra time expressing complex and abst ract ideas (such as current events, finances, discharge planning, medical issues, relationships, etc) ? No. EXPRESSION - STEP 2: Does the patient need extra time, require an assistive device (such as augmentive communication syste m or a communication board), OR does s/he have mild difficulty expressing complex and abstract ideas (including mild dysarthria or mild word-find problems)? Yes. EXPRESSION - SCORE: 6-ADELIA SOCIAL INTERACTION: SOCIAL INTERACTION - STEP 1: Does the patient require a helper to interact with others in social and therapeutic situations? No. SOCIAL INTERACTION - STEP 2: Does the patient need extra time in social situations, OR does s/he interact with staff, other patien ts, and family members ONLY in structured environments, OR does s/he require medication for social in teraction? No. SOCIAL INTERACTION - SCORE: 7-IND PROBLEM SOLVING: PROBLEM SOLVING - STEP 1: Does the patient need help from a person or device, or need extra time to solve complex problems such as managing a checking account or confronting interpersonal problems? No. PROBLEM SOLVING - STEP 2: Does the patient require extra time to make decisions or solve problems, OR does s/he have slight dif ficulty reading, initiating, or self-correcting in unfamiliar situations? Yes, patient needs extra ti me. PROBLEM SOLVING - SCORE: 6-ADELIA MEMORY: MEMORY - STEP 1: Does the patient need help from a person or device, or need extra time to remember frequently encount ered people, daily routines, and executing requests? No. MEMORY - STEP 2: Does the patient have slight difficulty recognizing frequently encountered people, daily routines, or executing requests without the need for repetition or using self-initiated or environmental cues to remember? Yes. MEMORY - SCORE: 6-ADELIA SIGNATURE PANEL: The following modified sections: Eating - Score, Grooming - Score, Bathing - Score, Dressing - Upper Body - Score, Dressing - Lower Body - Score, Toileting - Score, Bladder Management - Score, Bowel Man agement - Score, Transfers: Bed, Chair, Wheelchair - Score, Transfers: Toilet - Score, Transfers: Elayne wer - Score, Transfers: Tub - Score, Locomotion: Walk - Score, Locomotion: Wheelchair - Score, Compre hension - Score, Expression - Score, Social Interaction - Score, Problem Solving - Score, Memory - Sc ore were [electronically] signed by Radha Umaña C.N.A. on ThuSep 05 2018 13:34:16 T-0500 (Centra l Daylight Time)
--- NOTE | 2018-09-05 14:21 | PN ---
Date of Progress Note: 09/05/2018 Subjective: The patient was seen this morning for followup. No new complaints or problems reported by the patient. The patient was sitting in wheelchair, not in any distress. Denied any complaints t his morning when I saw him. Denies any abdominal pain, chest pain, shortness of breath. Objective: Vital Signs: Reviewed. HEENT: Unremarkable. Lungs: Clear to auscultation. Heart: Heart sounds normal. Abdomen: Soft. Bowel sounds normal. No guarding, rigidity, tenderness, or distention. Extremities: No leg edema. Laboratory Data: Chest x-ray shows emphysematous changes. No focal infiltrate. Impression: 1.Debility. 2.Generalized weakness. 3.Cirrhosis of liver. 4.Anemia due to gastrointestinal blood loss. 5.Coronary artery disease. 6.Hypertension. 7.Type 2 diabetes mellitus. 8.Hyperlipidemia. Plan: We will go ahead and continue current medical management. We will continue physical therapy u nder the guidance of Dr. August. I will go ahead and repeat his blood work tomorrow morning, and I will see him tomorrow for followup. APOORVA/MODL Voice ID: [id number] Report ID: [id number]
[2018-09-05] MEDS: ENOXAPARIN 30 MG/0.3 ML SQ SCH (16:06)
[2018-09-05] MEDS: MELATONIN 3 MG TABLET PO PRN (21:03)
[2018-09-05] MEDS: ATORVASTATIN 10 MG TAB PO SCH (21:04)
--- NOTE | 2018-09-06 02:46 | FAST ---
SHIFT START DATE/TIME: 09/05/2018 19:00 (CDT) SHIFT END DATE/TIME: 09/06/2018 07:00 (CDT) NAME KAYLEE ARRIAGA DATE OF : 1930 DATE OF ADMISSION: 09/03/2018 18:48 (CDT) PHONE: AGE: 88 SSN# [id number] GENDER: Male ENCOUNTER PHYSICIAN: Dr. Juan Carlos August M.D. ADMISSION DIAGNOSIS: - Medically Complex Conditions 17 - Other Medically Complex Conditions (17.9) GI Bleed/metabolic encephalopathy. EATING: Activity did not occur on this shift EATING - SCORE: 0-UNK GROOMING: Activity did not occur on this shift GROOMING - SCORE: 0-UNK BATHING: Activity did not occur on this shift BATHING - SCORE: 0-UNK DRESSING - UPPER BODY: Activity did not occur on this shift ARTICLES SCORE Total number of steps: 0 DRESSING - UPPER BODY - SCORE: 0-UNK DRESSING - LOWER BODY: Activity did not occur on this shift ARTICLES SCORE Total number of steps: 0 DRESSING - LOWER BODY - SCORE: 0-UNK TOILETING: TOILETING - SCORE: 0-UNK BLADDER MANAGEMENT: BLADDER MANAGEMENT - STEP 1: Does the patient control the bladder completely and intentionally without equipment or devices or med ications, and is always continent? No. BLADDER MANAGEMENT - STEP 2: Does the patient require the assistance of a helper? Yes. BLADDER MANAGEMENT - STEP 3: How much assistance does the patient require from the helper? Patient requires contact assistance fro m the helper BLADDER MANAGEMENT - STEP 4: How much contact assistance does the patient require from the helper? Patient requires minimal assist ance to maintain an external device - by positioning, and the patient performs 75% or more of bladder management tasks, while the helper provides less than 25% of the assistance to position patient on / off bedpan BLADDER MANAGEMENT - SCORE: 4-MIN BLADDER MANAGEMENT - FREQUENCY OF ACCIDENTS: BLADDER MANAGEMENT(FA) - STEP 1: How many accidents has the patient had during the current shift? 0 BOWEL MANAGEMENT: BOWEL MANAGEMENT - STEP 1: Does the patient control bowels completely and intentionally without equipment devices or medications AND is always continent? No. BOWEL MANAGEMENT - STEP 2: Does the patient require the assistance of a helper? No, patient requires medication for control such as stool softeners, suppositories, laxatives, enemas, or OTC medications BOWEL MANAGEMENT - SCORE: 6-ADELIA BOWEL MANAGEMENT - FREQUENCY OF ACCIDENTS: BOWEL MANAGEMENT(FA) - STEP 1: How many accidents has the patient had during the current shift? 0 TRANSFERS: BED, CHAIR, WHEELCHAIR: TRANSFERS: BED, CHAIR, WHEELCHAIR - STEP 1: Does the patient require assistance of a person or device, or need extra time with bed, chair, or whe elchair transfers? Yes. TRANSFERS: BED, CHAIR, WHEELCHAIR - STEP 2: Does the patient require the assistance of a helper? Yes. TRANSFERS: BED, CHAIR, WHEELCHAIR - STEP 3: How much assistance does the patient require from the helper? Steadying/guiding assistance TRANSFERS: BED, CHAIR, WHEELCHAIR - SCORE: 4-MIN TRANSFERS: TOILET: TRANSFERS: TOILET - STEP 1: Does the patient require the assistance of a person or device, or need extra time with toilet transfe rs? Yes. TRANSFERS: TOILET - STEP 2: Does the patient require the assistance of a helper? Yes. TRANSFERS: TOILET - STEP 3: How much assistance does the patient require from the helper? Patient performs half or more of the tr ansferring tasks TRANSFERS: TOILET - STEP 4: Does the patient need only incidental help such as contact guard or steadying during toilet transfer? Yes. TRANSFERS: TOILET - SCORE: 4-MIN TRANSFERS: SHOWER: Activity did not occur on this shift TRANSFERS: SHOWER - SCORE: 0-UNK TRANSFERS: TUB: Activity did not occur on this shift TRANSFERS: TUB - SCORE: 0-UNK LOCOMOTION: WALK: Activity did not occur on this shift LOCOMOTION: WALK - SCORE: 0-UNK LOCOMOTION: WHEELCHAIR: Activity did not occur on this shift LOCOMOTION: WHEELCHAIR - SCORE: 0-UNK COMPREHENSION: COMPREHENSION: TYPE: Both COMPREHENSION - STEP 1: Does the patient require help from a person or device, or need extra time to understand complex and a bstract ideas (such as current events, finances, discharge planning, medical issues, relationships, e tc)? No. COMPREHENSION - STEP 2: Does the patient need extra time, require an assistive device (such as glasses for visual comprehensi on or a hearing aid for auditory comprehension) or does s/he have mild difficulty understanding compl ex and abstract information? Yes. COMPREHENSION - SCORE: 6-ADELIA EXPRESSION EXPRESSION: TYPE: Both EXPRESSION - STEP 1: Does the patient require help from a person or device, or need extra time expressing complex and abst ract ideas (such as current events, finances, discharge planning, medical issues, relationships, etc) ? No. EXPRESSION - STEP 2: Does the patient need extra time, require an assistive device (such as augmentive communication syste m or a communication board), OR does s/he have mild difficulty expressing complex and abstract ideas (including mild dysarthria or mild word-find problems)? Yes. EXPRESSION - SCORE: 6-ADELIA SOCIAL INTERACTION: SOCIAL INTERACTION - STEP 1: Does the patient require a helper to interact with others in social and therapeutic situations? No. SOCIAL INTERACTION - STEP 2: Does the patient need extra time in social situations, OR does s/he interact with staff, other patien ts, and family members ONLY in structured environments, OR does s/he require medication for social in teraction? Yes, patient needs extra time SOCIAL INTERACTION - SCORE: 6-ADELIA PROBLEM SOLVING: PROBLEM SOLVING - STEP 1: Does the patient need help from a person or device, or need extra time to solve complex problems such as managing a checking account or confronting interpersonal problems? No. PROBLEM SOLVING - STEP 2: Does the patient require extra time to make decisions or solve problems, OR does s/he have slight dif ficulty reading, initiating, or self-correcting in unfamiliar situations? Yes, patient needs extra ti me. PROBLEM SOLVING - SCORE: 6-ADELIA MEMORY: MEMORY - STEP 1: Does the patient need help from a person or device, or need extra time to remember frequently encount ered people, daily routines, and executing requests? No. MEMORY - STEP 2: Does the patient have slight difficulty recognizing frequently encountered people, daily routines, or executing requests without the need for repetition or using self-initiated or environmental cues to remember? Yes. MEMORY - SCORE: 6-ADELIA SIGNATURE PANEL: The following modified sections: Eating - Score, Grooming - Score, Bathing - Score, Dressing - Upper Body - Score, Dressing - Lower Body - Score, Bladder Management - Score, Bowel Management - Score, Tr ansfers: Bed, Chair, Wheelchair - Score, Transfers: Toilet - Score, Transfers: Shower - Score, Transf ers: Tub - Score, Locomotion: Walk - Score, Locomotion: Wheelchair - Score, Comprehension - Score, Ex pression - Score, Social Interaction - Score, Problem Solving - Score, Memory - Score were [ana paulai saumya] signed by Caterina Jones RN on ThuSep 06 2018 02:44:51 GMT-0500 (Central Daylight Time)
[2018-09-06] MEDS: METOPROLOL TAR 25 MG TAB PO SCH ×2 (05:31→17:40)
[2018-09-06 06:06] LABS: Absolute Lymphocytes (CBC) 0.6 K/uL (0.7-4.9); Basophils % 0.8 % (0-1.3); Eosinophils % 5.8 % (0-4.4); Hematocrit 26.4 % (39.6-49.0); Lymphocytes % 15.8 % (15.3-44.8); MPV 7.7 fL (7.6-11.3); Monocytes % 8.3 % (3.3-12.3); RBC Red Blood Cell Count 2.68 M/uL (4.33-5.43)
[2018-09-06 06:29] LABS: Magnesium 2.4 mg/dL (1.8-2.4); Potassium 5.1 mmol/L (3.5-5.1)
[2018-09-06] MEDS: PANTOPRAZOLE 40MG TABLET PO SCH (06:56)
[2018-09-06] MEDS: TORSEMIDE 20 MG TAB PO SCH (08:07)
[2018-09-06] MEDS: TAMSULOSIN 0.4 MG SR CAP PO SCH (08:07)
[2018-09-06] MEDS: FOLIC ACID 1 MG TABLET PO SCH (08:07)
[2018-09-06] MEDS: MAGNESIUM OXIDE 400 MG TAB PO SCH (08:08)
[2018-09-06] MEDS: SPIRONOLACTONE 25 MG TABLET PO SCH (08:08)
[2018-09-06] MEDS: FERROUS SULFATE 325 MG TAB PO SCH ×2 (08:08→20:56)
[2018-09-06] MEDS: DOCUSATE NA 100 MG CAP PO SCH ×2 (08:09→20:56)
[2018-09-06] MEDS: ENSURE HIGH PROTEIN 237 ML CAN PO SCH ×2 (08:09→20:56)
[2018-09-06] MEDS: CYANOCOBALAMIN 1,000 MCG TAB PO SCH (08:09)
[2018-09-06] MEDS: PROMOD 30 ML DOSE PO SCH ×2 (08:09→20:56)
--- NOTE | 2018-09-06 11:10 | FAST ---
SHIFT START DATE/TIME: 09/06/2018 07:00 (CDT) SHIFT END DATE/TIME: 09/06/2018 19:00 (CDT) NAME KAYLEE ARRIAGA DATE OF : 1930 DATE OF ADMISSION: 09/03/2018 18:48 (CDT) PHONE: AGE: 88 N# [id number] GENDER: Male ENCOUNTER PHYSICIAN: Dr. Juan Carlos August M.D. ADMISSION DIAGNOSIS: - Medically Complex Conditions 17 - Other Medically Complex Conditions (17.9) GI Bleed/metabolic encephalopathy. EATING: EATING - STEP 1: Does the patient require the assistance of a person or device, or need extra time when eating? Yes. EATING - STEP 2: Does the patient require the assistance of a helper? No, patient only requires an assistive device, O R s/he takes more than reasonable time to eat, OR there is a safety concern, OR s/he requires modifie d food consistency EATING - SCORE: 6-ADELIA EATING - COMMENTS: Honey thick liquids GROOMING: Activity did not occur on this shift GROOMING - SCORE: 0-UNK BATHING: Activity did not occur on this shift BATHING - SCORE: 0-UNK DRESSING - UPPER BODY: Activity did not occur on this shift ARTICLES SCORE Total number of steps: 0 DRESSING - UPPER BODY - SCORE: 0-UNK DRESSING - LOWER BODY: Activity did not occur on this shift ARTICLES SCORE Total number of steps: 0 DRESSING - LOWER BODY - SCORE: 0-UNK TOILETING: TOILETING - STEP 1: Does the patient require the assistance of a person or device, or need extra time with toileting? Yes . TOILETING - STEP 2: Does the patient require the assistance of a helper? Yes. TOILETING - STEP 3: How much assistance does the patient require from the helper? Hands-on assistance from the helper TOILETING - STEP 4: Of the 3 tasks: 1) Adjusting clothing prior to use, 2) Cleansing of perineal area, 3) Adjusting clot [place] after use; How many tasks does the patient perform WITHOUT assistance of the helper? Three tasks with steadying assistance from the helper TOILETING - SCORE: 4-MIN BLADDER MANAGEMENT: BLADDER MANAGEMENT - STEP 1: Does the patient control the bladder completely and intentionally without equipment or devices or med ications, and is always continent? No. BLADDER MANAGEMENT - STEP 2: Does the patient require the assistance of a helper? No, patient requires and independently uses an a ssistive device, such as a urinal, bedpan, bedside commode, catheter, absorbent pad, or collecting de vice BLADDER MANAGEMENT - SCORE: 6-ADELIA BOWEL MANAGEMENT: Activity did not occur on this shift BOWEL MANAGEMENT - SCORE: 7-IND TRANSFERS: BED, CHAIR, WHEELCHAIR: TRANSFERS: BED, CHAIR, WHEELCHAIR - STEP 1: Does the patient require assistance of a person or device, or need extra time with bed, chair, or whe elchair transfers? Yes. TRANSFERS: BED, CHAIR, WHEELCHAIR - STEP 2: Does the patient require the assistance of a helper? Yes. TRANSFERS: BED, CHAIR, WHEELCHAIR - STEP 3: How much assistance does the patient require from the helper? Steadying/guiding assistance TRANSFERS: BED, CHAIR, WHEELCHAIR - SCORE: 4-MIN TRANSFERS: TOILET: TRANSFERS: TOILET - STEP 1: Does the patient require the assistance of a person or device, or need extra time with toilet transfe rs? Yes. TRANSFERS: TOILET - STEP 2: Does the patient require the assistance of a helper? Yes. TRANSFERS: TOILET - STEP 3: How much assistance does the patient require from the helper? Patient performs half or more of the tr ansferring tasks TRANSFERS: TOILET - STEP 4: Does the patient need only incidental help such as contact guard or steadying during toilet transfer? Yes. TRANSFERS: TOILET - SCORE: 4-MIN TRANSFERS: SHOWER: Activity did not occur on this shift TRANSFERS: SHOWER - SCORE: 0-UNK TRANSFERS: TUB: Activity did not occur on this shift TRANSFERS: TUB - SCORE: 0-UNK LOCOMOTION: WALK: Activity did not occur on this shift LOCOMOTION: WALK - SCORE: 0-UNK LOCOMOTION: WHEELCHAIR: Activity did not occur on this shift LOCOMOTION: WHEELCHAIR - SCORE: 0-UNK COMPREHENSION: COMPREHENSION: TYPE: Both COMPREHENSION - STEP 1: Does the patient require help from a person or device, or need extra time to understand complex and a bstract ideas (such as current events, finances, discharge planning, medical issues, relationships, e tc)? No. COMPREHENSION - STEP 2: Does the patient need extra time, require an assistive device (such as glasses for visual comprehensi on or a hearing aid for auditory comprehension) or does s/he have mild difficulty understanding compl ex and abstract information? Yes. COMPREHENSION - SCORE: 6-ADELIA EXPRESSION EXPRESSION: TYPE: Both EXPRESSION - STEP 1: Does the patient require help from a person or device, or need extra time expressing complex and abst ract ideas (such as current events, finances, discharge planning, medical issues, relationships, etc) ? Yes. EXPRESSION - STEP 2: Does the patient require help to express basic necessities or ideas (such as hunger, thirst, sleep, s afety, daily schedule, room location, or discomfort) half or more of the time? No. EXPRESSION - STEP 3: How often does the patient need help to express directions and conversation about basic needs? Less t [place] 10% of the time EXPRESSION - SCORE: 5-SUP SOCIAL INTERACTION: SOCIAL INTERACTION - STEP 1: Does the patient require a helper to interact with others in social and therapeutic situations? Yes. SOCIAL INTERACTION - STEP 2: Does the patient interact appropriately half or more of the time? Yes. SOCIAL INTERACTION - STEP 3: How often does the patient need help to interact appropriately? Less than 10% of the time SOCIAL INTERACTION - SCORE: 5-SUP PROBLEM SOLVING: PROBLEM SOLVING - STEP 1: Does the patient need help from a person or device, or need extra time to solve complex problems such as managing a checking account or confronting interpersonal problems? Yes. PROBLEM SOLVING - STEP 2: Does the patient solve basic routine problems half or more of the time? Yes. PROBLEM SOLVING - STEP 3: How often does the patient need help to solve basic routine problems? Less than 10% of the time PROBLEM SOLVING - SCORE: 5-SUP MEMORY: MEMORY - STEP 1: Does the patient need help from a person or device, or need extra time to remember frequently encount ered people, daily routines, and executing requests? Yes. MEMORY - STEP 2: How often does the patient need help to remember frequently encountered people, daily routines, and e xecuting requests? Less than 10% of the time MEMORY - SCORE: 5-SUP SIGNATURE PANEL: The following modified sections: Eating - Score, Eating - Comments:, Grooming - Score, Bathing - Scor e, Dressing - Upper Body - Score, Dressing - Lower Body - Score, Toileting - Score, Bladder Managemen t - Score, Bowel Management - Score, Transfers: Bed, Chair, Wheelchair - Score, Transfers: Toilet - S core, Transfers: Shower - Score, Transfers: Tub - Score, Locomotion: Walk - Score, Locomotion: Wheelc hair - Score, Comprehension - Score, Expression - Score, Social Interaction - Score, Problem Solving - Score, Memory - Score were [electronically] signed by Marquise Lennon on ThuSep 06 2018 11:10:15 GMT-05 00 (Central Daylight Time)
--- NOTE | 2018-09-06 14:28 | RAD REPORT ---
EXAM DESCRIPTION: RAD - Barium Swallow Modified - 09/06/2018 1:47 pm CLINICAL HISTORY: Difficulty swallowing, recurring respiratory infections, possible aspiration COMPARISON: None. TECHNIQUE: The patient was given liquid, semi-solid and solid forms of barium. Lateral view fluorosc opic imaging was performed in conjunction with speech pathology service. FINDINGS: Cineloop acquisitions: Approximately 12 cine loop acquisitions were obtained. Due to techn ical malfunction, imaging data was lost. Fluoro time: 2 minutes 31 seconds Laryngeal penetration cleared with thin liquids by teaspoon, cup, and straw Aspiration with no cough with thin by cup at the end of study (fatigue) Pharyngeal residue on the vallecular, pyriform, that was mild with regular solids (barium coated grah am cracker) reduced but not fully cleared on subsequent swallow. Delayed swallow response, barium tablet was held up in the Upper esophagus, cleared to stomach w/ nec tar rinse. IMPRESSION: Modified barium swallow as summarized above and fully detailed on speech pathology repor t
--- NOTE | 2018-09-06 15:58 | FAST ---
ENCOUNTER DATE AND TIME: 09/06/2018 08:00 (CDT) NAME KAYLEE ARRIAGA DATE OF : 1930 DATE OF ADMISSION: 09/03/2018 18:48 (CDT) PHONE: AGE: 88 SSN# [id number] GENDER: Male ENCOUNTER PHYSICIAN: Dr. Juan Carlos August M.D. ADMISSION DIAGNOSIS: - Medically Complex Conditions 17 - Other Medically Complex Conditions (17.9) GI Bleed/metabolic encephalopathy. EATING: Activity did not occur on this shift EATING - SCORE: 0-UNK GROOMING: Activity did not occur on this shift GROOMING - SCORE: 0-UNK BATHING: Activity did not occur on this shift BATHING - SCORE: 0-UNK DRESSING - UPPER BODY: Activity did not occur on this shift Patient is not dressing in public clothing ARTICLES SCORE Total number of steps: 0 DRESSING - UPPER BODY - SCORE: 0-UNK DRESSING - LOWER BODY: Activity did not occur on this shift Patient is not dressing in public clothing ARTICLES SCORE Total number of steps: 0 DRESSING - LOWER BODY - SCORE: 0-UNK TOILETING: Activity did not occur on this shift TOILETING - SCORE: 0-UNK BLADDER MANAGEMENT: Activity did not occur on this shift BLADDER MANAGEMENT - SCORE: 7-IND BOWEL MANAGEMENT: Activity did not occur on this shift BOWEL MANAGEMENT - SCORE: 7-IND TRANSFERS: BED, CHAIR, WHEELCHAIR: TRANSFERS: BED, CHAIR, WHEELCHAIR - STEP 1: Does the patient require assistance of a person or device, or need extra time with bed, chair, or whe elchair transfers? Yes. TRANSFERS: BED, CHAIR, WHEELCHAIR - STEP 2: Does the patient require the assistance of a helper? Yes. TRANSFERS: BED, CHAIR, WHEELCHAIR - STEP 3: How much assistance does the patient require from the helper? Only supervision TRANSFERS: BED, CHAIR, WHEELCHAIR - SCORE: 5-SUP TRANSFERS: TOILET: Activity did not occur on this shift TRANSFERS: TOILET - SCORE: 0-UNK TRANSFERS: SHOWER: Activity did not occur on this shift TRANSFERS: SHOWER - SCORE: 0-UNK TRANSFERS: TUB: Activity did not occur on this shift TRANSFERS: TUB - SCORE: 0-UNK LOCOMOTION: WALK: LOCOMOTION: WALK - STEP 1: Does the patient need help from a person or device, or need extra time to walk 150 feet? Yes. LOCOMOTION: WALK - STEP 2: How much assistance does the patient require to walk a minimum of 150 feet? Only supervision, cuing, or coaxing LOCOMOTION: WALK - SCORE: 5-SUP LOCOMOTION: WHEELCHAIR: Activity did not occur on this shift LOCOMOTION: WHEELCHAIR - SCORE: 0-UNK LOCOMOTION: STAIRS: Activity did not occur on this shift LOCOMOTION: STAIRS - SCORE: 0-UNK COMPREHENSION: COMPREHENSION - SCORE: 0-UNK EXPRESSION EXPRESSION - SCORE: 0-UNK SOCIAL INTERACTION: SOCIAL INTERACTION - SCORE: 0-UNK PROBLEM SOLVING: PROBLEM SOLVING - SCORE: 0-UNK MEMORY: MEMORY - SCORE: 0-UNK SIGNATURE PANEL: The following modified sections: Transfers: Bed, Chair, Wheelchair - Score, Transfers: Toilet - Score , Locomotion: Walk - Score, Locomotion: Wheelchair - Score, Locomotion: Stairs - Score were [electron hector] signed by Jasson Panchal PT on ThuSep 06 2018 15:56:39 [facility]-0500 (Central Daylight Time)
--- NOTE | 2018-09-06 16:57 | FAST ---
ENCOUNTER DATE AND TIME: 09/06/2018 08:00 (CDT) NAME KAYLEE ARRIAGA DATE OF : 1930 DATE OF ADMISSION: 09/03/2018 18:48 (CDT) PHONE: AGE: 88 SSN# [id number] GENDER: Male ENCOUNTER PHYSICIAN: Dr. Juan Carlos August M.D. ADMISSION DIAGNOSIS: - Medically Complex Conditions 17 - Other Medically Complex Conditions (17.9) GI Bleed/metabolic encephalopathy. EATING: Activity did not occur on this shift EATING - SCORE: 0-UNK GROOMING: Comb/brush hair Wash, rinse, and dry face Wash, rinse, and dry hands GROOMING - STEP 1: Does the patient require the assistance of a person or device, or need extra time when grooming? Yes. GROOMING - STEP 2: Does the patient require the assistance of a helper? Yes. GROOMING - STEP 3: How much assistance does the patient require from the helper? Only prior equipment preparation/set up from the helper GROOMING - SCORE: 5-SUP BATHING: Abdomen Buttocks Chest Left arm Left lower leg and foot Left upper leg Perineal area Right arm Right lower leg and foot Right upper leg BATHING - STEP 1: Does the patient require the assistance of a person or device, or need extra time when bathing? Yes. BATHING - STEP 2: Does the patient require the assistance of a helper? Yes. BATHING - STEP 3: How much assistance does the patient require from the helper? Only incidental help such as placement of a wash cloth in his/her hand a few times as s/he bathes OR help to bathe just one or two areas of the body BATHING - SCORE: 4-MIN DRESSING - UPPER BODY: T-shirt/pullover shirt (four steps) ARTICLES SCORE Total number of steps: 4 DRESSING - UPPER BODY - STEP 1: Does the patient require help from a person or device, or need extra time when dressing above the [address]? Yes. DRESSING - UPPER BODY - STEP 2: Does the patient require the assistance of a helper? Yes. DRESSING - UPPER BODY - STEP 3: Does the helper touch the patient while dressing? No. DRESSING - UPPER BODY - SCORE: 5-SUP DRESSING - LOWER BODY: Slip-on shoe - Left foot (one step) Slip-on shoe - Right foot (one step) Sock - Left foot (one step) Sock - Right foot (one step) Underwear (three steps) Zippered pants (four steps) ARTICLES SCORE Total number of steps: 11 DRESSING - LOWER BODY - STEP 1: Does the patient require help from a person or device, or need extra time when dressing below the [address]? Yes. DRESSING - LOWER BODY - STEP 2: Does the patient require the assistance of a helper? Yes. DRESSING - LOWER BODY - STEP 3: Does the helper touch the patient while dressing? No. DRESSING - LOWER BODY - SCORE: 5-SUP TOILETING: TOILETING - STEP 1: Does the patient require the assistance of a person or device, or need extra time with toileting? Yes . TOILETING - STEP 2: Does the patient require the assistance of a helper? Yes. TOILETING - STEP 3: How much assistance does the patient require from the helper? Hands-on assistance from the helper TOILETING - STEP 4: Of the 3 tasks: 1) Adjusting clothing prior to use, 2) Cleansing of perineal area, 3) Adjusting clot [place] after use; How many tasks does the patient perform WITHOUT assistance of the helper? Three tasks with steadying assistance from the helper TOILETING - SCORE: 4-MIN BLADDER MANAGEMENT: Activity did not occur on this shift BLADDER MANAGEMENT - SCORE: 7-IND BOWEL MANAGEMENT: Activity did not occur on this shift BOWEL MANAGEMENT - SCORE: 7-IND TRANSFERS: BED, CHAIR, WHEELCHAIR: Activity did not occur on this shift TRANSFERS: BED, CHAIR, WHEELCHAIR - SCORE: 0-UNK TRANSFERS: TOILET: TRANSFERS: TOILET - STEP 1: Does the patient require the assistance of a person or device, or need extra time with toilet transfe rs? Yes. TRANSFERS: TOILET - STEP 2: Does the patient require the assistance of a helper? Yes. TRANSFERS: TOILET - STEP 3: How much assistance does the patient require from the helper? Patient performs half or more of the tr ansferring tasks TRANSFERS: TOILET - STEP 4: Does the patient need only incidental help such as contact guard or steadying during toilet transfer? Yes. TRANSFERS: TOILET - SCORE: 4-MIN TRANSFERS: SHOWER: TRANSFERS: SHOWER - STEP 1: Does the patient require the assistance of a person or device, or need extra time with shower transfe rs? Yes. TRANSFERS: SHOWER - STEP 2: Does the patient require the assistance of a helper? Yes. TRANSFERS: SHOWER - STEP 3: How much assistance does the patient require from the helper? Only incidental help such as contact gu arding or steadying during shower transfers, or help to lift one leg into the shower TRANSFERS: SHOWER - SCORE: 4-MIN TRANSFERS: TUB: Activity did not occur on this shift TRANSFERS: TUB - SCORE: 0-UNK LOCOMOTION: WALK: Activity did not occur on this shift LOCOMOTION: WALK - SCORE: 0-UNK LOCOMOTION: WHEELCHAIR: Activity did not occur on this shift LOCOMOTION: WHEELCHAIR - SCORE: 0-UNK LOCOMOTION: STAIRS: Activity did not occur on this shift LOCOMOTION: STAIRS - SCORE: 0-UNK COMPREHENSION: COMPREHENSION: TYPE: Both COMPREHENSION - STEP 1: Does the patient require help from a person or device, or need extra time to understand complex and a bstract ideas (such as current events, finances, discharge planning, medical issues, relationships, e tc)? Yes. COMPREHENSION - STEP 2: Does the patient require help to understand questions or statements about basic needs or ideas (such as hunger, thirst, sleep, safety, daily schedule, room location, or discomfort) half or more of the t mack? No. COMPREHENSION - STEP 3: How often does the patient need help to understand directions and conversation about basic needs? Les s than 10% of the time COMPREHENSION - SCORE: 5-SUP EXPRESSION EXPRESSION: TYPE: Both EXPRESSION - STEP 1: Does the patient require help from a person or device, or need extra time expressing complex and abst ract ideas (such as current events, finances, discharge planning, medical issues, relationships, etc) ? No. EXPRESSION - STEP 2: Does the patient need extra time, require an assistive device (such as augmentive communication syste m or a communication board), OR does s/he have mild difficulty expressing complex and abstract ideas (including mild dysarthria or mild word-find problems)? Yes. EXPRESSION - SCORE: 6-ADELIA SOCIAL INTERACTION: SOCIAL INTERACTION - STEP 1: Does the patient require a helper to interact with others in social and therapeutic situations? No. SOCIAL INTERACTION - STEP 2: Does the patient need extra time in social situations, OR does s/he interact with staff, other patien ts, and family members ONLY in structured environments, OR does s/he require medication for social in teraction? Yes, patient needs extra time SOCIAL INTERACTION - SCORE: 6-ADELIA PROBLEM SOLVING: PROBLEM SOLVING - STEP 1: Does the patient need help from a person or device, or need extra time to solve complex problems such as managing a checking account or confronting interpersonal problems? Yes. PROBLEM SOLVING - STEP 2: Does the patient solve basic routine problems half or more of the time? Yes. PROBLEM SOLVING - STEP 3: How often does the patient need help to solve basic routine problems? Less than 10% of the time PROBLEM SOLVING - SCORE: 5-SUP MEMORY: MEMORY - STEP 1: Does the patient need help from a person or device, or need extra time to remember frequently encount ered people, daily routines, and executing requests? Yes. MEMORY - STEP 2: How often does the patient need help to remember frequently encountered people, daily routines, and e xecuting requests? 10% - 24% of the time MEMORY - SCORE: 4-MIN SIGNATURE PANEL: The following modified sections: Eating - Score, Grooming - Score, Bathing - Score, Dressing - Upper Body - Score, Dressing - Lower Body - Score, Toileting - Score, Transfers: Bed, Chair, Wheelchair - S core, Transfers: Toilet - Score, Transfers: Shower - Score, Transfers: Tub - Score, Comprehension - S core, Expression - Score, Social Interaction - Score, Problem Solving - Score, Memory - Score were [e lectronically] signed by Sandra Rogers OT on ThuSep 06 2018 16:56:19 T-0500 ([facility] Time)
[2018-09-06] MEDS: ENOXAPARIN 30 MG/0.3 ML SQ SCH (17:40)
--- NOTE | 2018-09-06 19:00 | R.PN ---
ENCOUNTER DATE AND TIME: 09/06/2018 18:53 (CDT) NAME KAYLEE ARRIAGA DATE OF : 1930 DATE OF ADMISSION: 09/03/2018 18:48 (CDT) GI Bleed/metabolic encephalopathyCHIEF COMPLAINT: Debility, GI bleed and metabolic encephalopathy SUBJECTIVE: Pt denied any Shortness of Breath. Pt denied any depression. Prealbumin 12.3, WBC 4.1. Modified barium swallow: delayed swallowing with residual cleared with nectar rinse. Ambulated 1250' with standby assistance using a rolling walker. VITAL SIGNS Temperature: 99.1 F SBP/DBP: 125/60 Pulse: 71 Resp: 14 MEDICATION ALLERGIES: LEVOFLOXACIN metformin ENVIRONMENTAL ALLERGIES: - Substance Allergies None Known - Other Allergies None Known NURSING: - Shower allowing shower - Lab Results blood Sugar Check ACHS ACTIVITIES OOB only with supervision THERAPIES: - Dietary and Nutrition Adequate Nutrition. Nutritional Education. Nutritional Supplements. PHYSICAL EXAM - Gen Alert and awake Lying in bed No apparent distress Oriented to: person, time, and place - Skin Bruising on the dorsal right more than left hand, forearm and elbow. Atraumatic - Eyes No abnormalities - ENMT No abnormalities - Neck No abnormalities - CVS RRR - Chest No abnormalities - Abd +bowel sounds - GI Soft Deferred - No abnormalities - Ext No significant edema. - MSK 4+/5 weakness in both lower extremities. - Neuro 4/5 strength in both lower extremities. - Psych No abnormalities ASSESSMENT: Pt. is a 88 yo Right-handed white male.On 08/22/2018 he was admitted to [facility] with diagnosis GI Bleed/metabolic encephalopathy.His impairment category is Medically Comple x Conditions 17 - Other Medically Complex Conditions (17.9).Pre-morbidly, Pt. was independent/mod-I in Self-Care, Sphincter Control, Transfers Control, Communication, Social Cognition, and Locomotion; and he had good Sphincter Control.Currently, he has deficits of Self-Care, Transfers Control, Communi cation, Social Cognition, Endurance, Balance, Safety Awareness, and Locomotion.Pt. is now referred to [facility] for acute in-patient rehabilitation in order to maximize patient's functional independence in activities of daily living, strength, ROM, and mobility.- Rehab Goal Patient has realistic goal of being discharged at assistance level 4-Joe to reside at Home with Fam deon/Relatives. MDM/PLAN: - Physical Therapy Gait dysfunction - to improve, our physical therapists will perform initial evaluation of pt's statu s upon admission and devise an individualized program for Gait Training, and Wheel Chair mobility Inability to transfer - to improve, our physical therapists will perform initial evaluation of pt's status upon admission and devise an individualized program for Bed mobility Need for home safety evaluation - to improve, our physical therapists will perform initial evaluatio n of pt's status upon admission and devise an individualized program for Home Evaluation Need in caregiver upon discharge - to improve, our physical therapists will perform initial evaluati on of pt's status upon admission and devise an individualized program for Caregiver Training New precaution - to improve, our physical therapists will perform initial evaluation of pt's status upon admission and devise an individualized program for Patient precaution education Edema - to improve, our physical therapists will perform initial evaluation of pt's status upon admis brooke and devise an individualized program for Elevation Training, and Lymphedema Therapy Poor balance - to improve, our physical therapists will perform initial evaluation of pt's status up on admission and devise an individualized program for Balance Training Poor endurance - to improve, our physical therapists will perform initial evaluation of pt's status upon admission and devise an individualized program for Endurance Training Weakness - to improve, our physical therapists will perform initial evaluation of pt's status upon a dmission and devise an individualized program for Aquatic Therapy, Neuromuscular Reeducation, and Str engthening Achieving independence - to improve, our physical therapists will perform initial evaluation of pt's status upon admission and devise an individualized program for Community Reintegration Activities - Occupational Therapy ADL deficits - to improve, our occupation therapists will perform initial evaluation of pt's status upon admission and devise an individualized program for Bathing, Bed mobility, Community Reintegratio n, Cooking, Dressing, Eating, Fine Motor Skills, Grooming, Homemaking, Kitchen Mobility, Laundry, Pat ient Education, Safety Awareness, Splinting - Positioning, Transfers(Toilet, Tub, Shower), and Wheel Chair Management Cognitive deficits - to improve, our occupation therapists will perform initial evaluation of pt's s tatus upon admission and devise an individualized program for Cognition - orientation Need for school child care attendant - to improve, our occupation therapists will perform initial evaluation of pt's status upon admission and devise an individualized program for Caregiver Training Weakness - to improve, our occupation therapists will perform initial evaluation of pt's status upon admission and devise an individualized program for Aquatic Therapy, Balance, Endurance, UE ROM, and UE strengthening - Other See attached MAR (Medication Administration Record) [id number].pdf See attached MAR (Medication Administration Record) [id number].pdf - Diet Type Continue Regular - Diet - Liquid Texture Continue Regular - Tube Feed Continue N/A - Lab Results blood Sugar Check ACHS - Diet - Solid Texture Continue Regular - Shower allowing shower FUNCTIONAL STATUS: UPDATED AT WEEKLY TEAM CONFERENCE - Bladder Same accident frequency: 7-Ind - No accidents in the past 7 days - Bowel Same accident frequency: 7-Ind - No accidents in the past 7 days - Walking Same score based on distance walked: 3(>=150ft) FUNCTIONAL STATUS: - Self-Care A. Eating Joe B. Grooming Charo C. Bathing Joe D. Dressing - Upper sup E. Dressing - Lower modA F. Toileting Joe - Sphincter Control G: Bladder control Ind H: Bowel control Ind - Transfers Control I. Bed/Chair/Wheelchair Joe J. Toilet Joe K. Tub/Shower Joe - Locomotion L. Walk/Wheelchair (B) Joe M. Stairs ADNO - Communication N. Comprehension (B) Joe O. Expression (B) Joe - Social Cognition P. Social Interaction Joe Q. Problem Solving Joe R. Memory Joe - Endurance Fair - Balance Fair - Safety Awareness Poor CURRENT FUNC. DEFICITS: Self-Care, Transfers Control, Communication, Social Cognition, Endurance, Balance, Safety Awareness, and Locomotion SIGNATURE PANEL: (CDT)
[2018-09-06] MEDS: ATORVASTATIN 10 MG TAB PO SCH (20:56)
[2018-09-06] MEDS: CRANBERRY FRUIT EXTRACT 200 MG CAP PO SCH (20:56)
[2018-09-06] MEDS: MELATONIN 3 MG TABLET PO PRN (20:56)
--- NOTE | 2018-09-07 01:04 | PN ---
Date of Progress Note: 09/06/2018 Subjective: The patient was seen this morning for followup. No new complaints, problems reported by the patient. He was lying in bed, not in any distress. Objective: Vital Signs: Reviewed. HEENT: Unremarkable. Lungs: Clear to auscultation. Heart: Sounds normal. Abdomen: Soft. Bowel sounds normal. No guarding, rigidity, tenderness, distention. Extremities: No leg edema. Laboratory Data: White count 4.1, hemoglobin 8.9, platelets 171. Sodium 138, potassium 5.1, chlorid e 106, bicarb 29, BUN 23, creatinine 1.20, glucose 102. Impression: 1.Debility. 2.Generalized weakness. 3.Cirrhosis of liver. 4.Acute blood loss anemia. 5.Coronary artery disease. Plan: We will continue current medications. Continue physical therapy under guidance of Dr. Radha rocha. Continue current iron supplement and hemoglobin . We will see him tomorrow for followfabiola ramirez ACA/MAXIMILIANO Voice ID: [id number] Report ID: [id number]
[2018-09-07] MEDS: PANTOPRAZOLE 40MG TABLET PO SCH (06:20)
[2018-09-07] MEDS: METOPROLOL TAR 25 MG TAB PO SCH ×2 (06:21→17:01)
[2018-09-07] MEDS: FOLIC ACID 1 MG TABLET PO SCH (07:42)
[2018-09-07] MEDS: DOCUSATE NA 100 MG CAP PO SCH ×2 (07:42→22:39)
[2018-09-07] MEDS: FERROUS SULFATE 325 MG TAB PO SCH ×2 (07:42→22:40)
[2018-09-07] MEDS: TAMSULOSIN 0.4 MG SR CAP PO SCH (07:42)
[2018-09-07] MEDS: CRANBERRY FRUIT EXTRACT 200 MG CAP PO SCH ×2 (07:42→22:39)
[2018-09-07] MEDS: MAGNESIUM OXIDE 400 MG TAB PO SCH (07:42)
[2018-09-07] MEDS: CYANOCOBALAMIN 1,000 MCG TAB PO SCH (07:42)
[2018-09-07] MEDS: PROMOD 30 ML DOSE PO SCH ×2 (07:43→22:44)
[2018-09-07] MEDS: ENSURE HIGH PROTEIN 237 ML CAN PO SCH ×2 (07:43→22:44)
[2018-09-07] MEDS: TORSEMIDE 20 MG TAB PO SCH (07:50)
[2018-09-07] MEDS: SPIRONOLACTONE 25 MG TABLET PO SCH (07:50)
--- NOTE | 2018-09-07 13:56 | FAST ---
SHIFT START DATE/TIME: 09/07/2018 07:00 (CDT) SHIFT END DATE/TIME: 09/07/2018 19:00 (CDT) NAME KAYLEE ARRIAGA DATE OF : 1930 DATE OF ADMISSION: 09/03/2018 18:48 (CDT) PHONE: AGE: 88 SSN# [id number] GENDER: Male ENCOUNTER PHYSICIAN: Dr. Juan Carlos August M.D. ADMISSION DIAGNOSIS: - Medically Complex Conditions 17 - Other Medically Complex Conditions (17.9) GI Bleed/metabolic encephalopathy. EATING: EATING - STEP 1: Does the patient require the assistance of a person or device, or need extra time when eating? Yes. EATING - STEP 2: Does the patient require the assistance of a helper? No, patient only requires an assistive device, O R s/he takes more than reasonable time to eat, OR there is a safety concern, OR s/he requires modifie d food consistency EATING - SCORE: 6-ADELIA GROOMING: Comb/brush hair Oral care Wash, rinse, and dry face Wash, rinse, and dry hands GROOMING - STEP 1: Does the patient require the assistance of a person or device, or need extra time when grooming? Yes. GROOMING - STEP 2: Does the patient require the assistance of a helper? No. The patient only requires an assistive devic e, OR takes more than reasonable time to groom, OR there is a concern for safety as the patient groom s GROOMING - SCORE: 6-ADELIA BATHING: Activity did not occur on this shift BATHING - SCORE: 0-UNK DRESSING - UPPER BODY: Activity did not occur on this shift ARTICLES SCORE Total number of steps: 0 DRESSING - UPPER BODY - SCORE: 0-UNK DRESSING - LOWER BODY: Activity did not occur on this shift ARTICLES SCORE Total number of steps: 0 DRESSING - LOWER BODY - SCORE: 0-UNK TOILETING: TOILETING - STEP 1: Does the patient require the assistance of a person or device, or need extra time with toileting? Yes . TOILETING - STEP 2: Does the patient require the assistance of a helper? Yes. TOILETING - STEP 3: How much assistance does the patient require from the helper? Hands-on assistance from the helper TOILETING - STEP 4: Of the 3 tasks: 1) Adjusting clothing prior to use, 2) Cleansing of perineal area, 3) Adjusting clot dalton after use; How many tasks does the patient perform WITHOUT assistance of the helper? Three tasks with steadying assistance from the helper TOILETING - SCORE: 4-MIN BLADDER MANAGEMENT: BLADDER MANAGEMENT - STEP 1: Does the patient control the bladder completely and intentionally without equipment or devices or med ications, and is always continent? No. BLADDER MANAGEMENT - STEP 2: Does the patient require the assistance of a helper? No, patient requires and independently uses an a ssistive device, such as a urinal, bedpan, bedside commode, catheter, absorbent pad, or collecting de vice BLADDER MANAGEMENT - SCORE: 6-ADELIA BOWEL MANAGEMENT: Activity did not occur on this shift BOWEL MANAGEMENT - SCORE: 7-IND TRANSFERS: BED, CHAIR, WHEELCHAIR: TRANSFERS: BED, CHAIR, WHEELCHAIR - STEP 1: Does the patient require assistance of a person or device, or need extra time with bed, chair, or whe elchair transfers? Yes. TRANSFERS: BED, CHAIR, WHEELCHAIR - STEP 2: Does the patient require the assistance of a helper? Yes. TRANSFERS: BED, CHAIR, WHEELCHAIR - STEP 3: How much assistance does the patient require from the helper? Steadying/guiding assistance TRANSFERS: BED, CHAIR, WHEELCHAIR - SCORE: 4-MIN TRANSFERS: TOILET: TRANSFERS: TOILET - STEP 1: Does the patient require the assistance of a person or device, or need extra time with toilet transfe rs? Yes. TRANSFERS: TOILET - STEP 2: Does the patient require the assistance of a helper? Yes. TRANSFERS: TOILET - STEP 3: How much assistance does the patient require from the helper? Patient performs half or more of the tr ansferring tasks TRANSFERS: TOILET - STEP 4: Does the patient need only incidental help such as contact guard or steadying during toilet transfer? No. Patient needs more than incidental help TRANSFERS: TOILET - SCORE: 3-MOD TRANSFERS: SHOWER: Activity did not occur on this shift TRANSFERS: SHOWER - SCORE: 0-UNK TRANSFERS: TUB: Activity did not occur on this shift TRANSFERS: TUB - SCORE: 0-UNK LOCOMOTION: WALK: Activity did not occur on this shift LOCOMOTION: WALK - SCORE: 0-UNK LOCOMOTION: WHEELCHAIR: Activity did not occur on this shift LOCOMOTION: WHEELCHAIR - SCORE: 0-UNK COMPREHENSION: COMPREHENSION: TYPE: Both COMPREHENSION - STEP 1: Does the patient require help from a person or device, or need extra time to understand complex and a bstract ideas (such as current events, finances, discharge planning, medical issues, relationships, e tc)? No. COMPREHENSION - STEP 2: Does the patient need extra time, require an assistive device (such as glasses for visual comprehensi on or a hearing aid for auditory comprehension) or does s/he have mild difficulty understanding compl ex and abstract information? Yes. COMPREHENSION - SCORE: 6-ADELIA EXPRESSION EXPRESSION: TYPE: Both EXPRESSION - STEP 1: Does the patient require help from a person or device, or need extra time expressing complex and abst ract ideas (such as current events, finances, discharge planning, medical issues, relationships, etc) ? No. EXPRESSION - STEP 2: Does the patient need extra time, require an assistive device (such as augmentive communication syste m or a communication board), OR does s/he have mild difficulty expressing complex and abstract ideas (including mild dysarthria or mild word-find problems)? No. EXPRESSION - SCORE: 7-IND SOCIAL INTERACTION: SOCIAL INTERACTION - STEP 1: Does the patient require a helper to interact with others in social and therapeutic situations? No. SOCIAL INTERACTION - STEP 2: Does the patient need extra time in social situations, OR does s/he interact with staff, other patien ts, and family members ONLY in structured environments, OR does s/he require medication for social in teraction? Yes, patient needs extra time SOCIAL INTERACTION - SCORE: 6-ADELIA PROBLEM SOLVING: PROBLEM SOLVING - STEP 1: Does the patient need help from a person or device, or need extra time to solve complex problems such as managing a checking account or confronting interpersonal problems? No. PROBLEM SOLVING - STEP 2: Does the patient require extra time to make decisions or solve problems, OR does s/he have slight dif ficulty reading, initiating, or self-correcting in unfamiliar situations? Yes, patient needs extra ti me. PROBLEM SOLVING - SCORE: 6-ADELIA MEMORY: MEMORY - STEP 1: Does the patient need help from a person or device, or need extra time to remember frequently encount ered people, daily routines, and executing requests? No. MEMORY - STEP 2: Does the patient have slight difficulty recognizing frequently encountered people, daily routines, or executing requests without the need for repetition or using self-initiated or environmental cues to remember? Yes. MEMORY - SCORE: 6-ADELIA SIGNATURE PANEL: The following modified sections: Eating - Score, Grooming - Score, Bathing - Score, Dressing - Upper Body - Score, Dressing - Lower Body - Score, Toileting - Score, Bladder Management - Score, Bowel Man agement - Score, Transfers: Bed, Chair, Wheelchair - Score, Transfers: Toilet - Score, Transfers: Elayne wer - Score, Transfers: Tub - Score, Locomotion: Walk - Score, Locomotion: Wheelchair - Score, Compre hension - Score, Expression - Score, Social Interaction - Score, Problem Solving - Score, Memory - Sc ore were [electronically] signed by Marquise Lennon on ThuSep 07 2018 13:55:15 GMT-0500 (Central Daylight Time)
--- NOTE | 2018-09-07 15:27 | FAST ---
ENCOUNTER DATE AND TIME: 09/07/2018 08:00 (CDT) NAME KAYLEE ARRIAGA DATE OF : 1930 DATE OF ADMISSION: 09/03/2018 18:48 (CDT) PHONE: AGE: 88 SSN# [id number] GENDER: Male ENCOUNTER PHYSICIAN: Dr. Juan Carlos August M.D. ADMISSION DIAGNOSIS: - Medically Complex Conditions 17 - Other Medically Complex Conditions (17.9) GI Bleed/metabolic encephalopathy. EATING: Activity did not occur on this shift EATING - SCORE: 0-UNK GROOMING: Activity did not occur on this shift GROOMING - SCORE: 0-UNK BATHING: Activity did not occur on this shift BATHING - SCORE: 0-UNK DRESSING - UPPER BODY: Activity did not occur on this shift Patient is not dressing in public clothing ARTICLES SCORE Total number of steps: 0 DRESSING - UPPER BODY - SCORE: 0-UNK DRESSING - LOWER BODY: Activity did not occur on this shift Patient is not dressing in public clothing ARTICLES SCORE Total number of steps: 0 DRESSING - LOWER BODY - SCORE: 0-UNK TOILETING: Activity did not occur on this shift TOILETING - SCORE: 0-UNK BLADDER MANAGEMENT: Activity did not occur on this shift BLADDER MANAGEMENT - SCORE: 7-IND BOWEL MANAGEMENT: Activity did not occur on this shift BOWEL MANAGEMENT - SCORE: 7-IND TRANSFERS: BED, CHAIR, WHEELCHAIR: TRANSFERS: BED, CHAIR, WHEELCHAIR - STEP 1: Does the patient require assistance of a person or device, or need extra time with bed, chair, or whe elchair transfers? Yes. TRANSFERS: BED, CHAIR, WHEELCHAIR - STEP 2: Does the patient require the assistance of a helper? Yes. TRANSFERS: BED, CHAIR, WHEELCHAIR - STEP 3: How much assistance does the patient require from the helper? Only supervision TRANSFERS: BED, CHAIR, WHEELCHAIR - SCORE: 5-SUP TRANSFERS: TOILET: Activity did not occur on this shift TRANSFERS: TOILET - SCORE: 0-UNK TRANSFERS: SHOWER: Activity did not occur on this shift TRANSFERS: SHOWER - SCORE: 0-UNK TRANSFERS: TUB: Activity did not occur on this shift TRANSFERS: TUB - SCORE: 0-UNK LOCOMOTION: WALK: LOCOMOTION: WALK - STEP 1: Does the patient need help from a person or device, or need extra time to walk 150 feet? Yes. LOCOMOTION: WALK - STEP 2: How much assistance does the patient require to walk a minimum of 150 feet? Only supervision, cuing, or coaxing LOCOMOTION: WALK - SCORE: 5-SUP LOCOMOTION: WHEELCHAIR: Activity did not occur on this shift LOCOMOTION: WHEELCHAIR - SCORE: 0-UNK LOCOMOTION: STAIRS: Activity did not occur on this shift LOCOMOTION: STAIRS - SCORE: 0-UNK COMPREHENSION: COMPREHENSION - SCORE: 0-UNK EXPRESSION EXPRESSION - SCORE: 0-UNK SOCIAL INTERACTION: SOCIAL INTERACTION - SCORE: 0-UNK PROBLEM SOLVING: PROBLEM SOLVING - SCORE: 0-UNK MEMORY: MEMORY - SCORE: 0-UNK SIGNATURE PANEL: The following modified sections: Transfers: Bed, Chair, Wheelchair - Score, Transfers: Toilet - Score , Locomotion: Walk - Score, Locomotion: Wheelchair - Score, Locomotion: Stairs - Score were [electron hector] signed by Jasson Panchal PT on ThuSep 07 2018 15:27:15 [facility]-0500 (Central Daylight Time)
[2018-09-07] MEDS: ENOXAPARIN 30 MG/0.3 ML SQ SCH (16:55)
--- NOTE | 2018-09-07 19:01 | R.PN ---
ENCOUNTER DATE AND TIME: 09/07/2018 18:58 (CDT) NAME KAYLEE ARRIAGA DATE OF : 1930 DATE OF ADMISSION: 09/03/2018 18:48 (CDT) GI Bleed/metabolic encephalopathyCHIEF COMPLAINT: Debility, GI bleed and metabolic encephalopathy SUBJECTIVE: Pt denied any Shortness of Breath. Pt denied any depression. Prealbumin 12.3, WBC 4.1. Modified barium swallow: delayed swallowing with residual cleared with nectar rinse. Ambulated 750' with standby assistance using a rolling walker. VITAL SIGNS Temperature: 99.1 F SBP/DBP: 118/52 Pulse: 681 Resp: 15 MEDICATION ALLERGIES: LEVOFLOXACIN metformin ENVIRONMENTAL ALLERGIES: - Substance Allergies None Known - Other Allergies None Known NURSING: - Shower allowing shower - Lab Results blood Sugar Check ACHS ACTIVITIES OOB only with supervision THERAPIES: - Dietary and Nutrition Adequate Nutrition. Nutritional Education. Nutritional Supplements. PHYSICAL EXAM - Gen Alert and awake Lying in bed No apparent distress Oriented to: person, time, and place - Skin Bruising on the dorsal right more than left hand, forearm and elbow. Atraumatic - Eyes No abnormalities - ENMT No abnormalities - Neck No abnormalities - CVS RRR - Chest No abnormalities - Abd +bowel sounds - GI Soft Deferred - No abnormalities - Ext No significant edema. - MSK 4+/5 weakness in both lower extremities. - Neuro 4/5 strength in both lower extremities. - Psych No abnormalities ASSESSMENT: Pt. is a 88 yo Right-handed white male.On 08/22/2018 he was admitted to [facility] with diagnosis GI Bleed/metabolic encephalopathy.His impairment category is Medically Comple x Conditions 17 - Other Medically Complex Conditions (17.9).Pre-morbidly, Pt. was independent/mod-I in Self-Care, Sphincter Control, Transfers Control, Communication, Social Cognition, and Locomotion; and he had good Sphincter Control.Currently, he has deficits of Self-Care, Transfers Control, Communi cation, Social Cognition, Endurance, Balance, Safety Awareness, and Locomotion.Pt. is now referred to [facility] for acute in-patient rehabilitation in order to maximize patient's functional independence in activities of daily living, strength, ROM, and mobility.- Rehab Goal Patient has realistic goal of being discharged at assistance level 4-Joe to reside at Home with Fam deon/Relatives. MDM/PLAN: - Physical Therapy Gait dysfunction - to improve, our physical therapists will perform initial evaluation of pt's statu s upon admission and devise an individualized program for Gait Training, and Wheel Chair mobility Inability to transfer - to improve, our physical therapists will perform initial evaluation of pt's status upon admission and devise an individualized program for Bed mobility Need for home safety evaluation - to improve, our physical therapists will perform initial evaluatio n of pt's status upon admission and devise an individualized program for Home Evaluation Need in caregiver upon discharge - to improve, our physical therapists will perform initial evaluati on of pt's status upon admission and devise an individualized program for Caregiver Training New precaution - to improve, our physical therapists will perform initial evaluation of pt's status upon admission and devise an individualized program for Patient precaution education Edema - to improve, our physical therapists will perform initial evaluation of pt's status upon admi ssion and devise an individualized program for Elevation Training, and Lymphedema Therapy Poor balance - to improve, our physical therapists will perform initial evaluation of pt's status up on admission and devise an individualized program for Balance Training Poor endurance - to improve, our physical therapists will perform initial evaluation of pt's status upon admission and devise an individualized program for Endurance Training Weakness - to improve, our physical therapists will perform initial evaluation of pt's status upon a dmission and devise an individualized program for Aquatic Therapy, Neuromuscular Reeducation, and Str engthening Achieving independence - to improve, our physical therapists will perform initial evaluation of pt's status upon admission and devise an individualized program for Community Reintegration Activities - Occupational Therapy ADL deficits - to improve, our occupation therapists will perform initial evaluation of pt's status upon admission and devise an individualized program for Bathing, Bed mobility, Community Reintegratio n, Cooking, Dressing, Eating, Fine Motor Skills, Grooming, Homemaking, Kitchen Mobility, Laundry, Pat ient Education, Safety Awareness, Splinting - Positioning, Transfers(Toilet, Tub, Shower), and Wheel Chair Management Cognitive deficits - to improve, our occupation therapists will perform initial evaluation of pt's s tatus upon admission and devise an individualized program for Cognition - orientation Need for director career - to improve, our occupation therapists will perform initial evaluation of pt's status upon admission and devise an individualized program for Caregiver Training Weakness - to improve, our occupation therapists will perform initial evaluation of pt's status upon admission and devise an individualized program for Aquatic Therapy, Balance, Endurance, UE ROM, and UE strengthening - Other See attached MAR (Medication Administration Record) [id number].pdf - Diet Type Continue Regular - Diet - Liquid Texture Continue Regular - Tube Feed Continue N/A - Lab Results blood Sugar Check ACHS - Diet - Solid Texture Continue Regular - Shower allowing shower FUNCTIONAL STATUS: UPDATED AT WEEKLY TEAM CONFERENCE - Bladder Same accident frequency: 7-Ind - No accidents in the past 7 days - Bowel Same accident frequency: 7-Ind - No accidents in the past 7 days - Walking Same score based on distance walked: 3(>=150ft) FUNCTIONAL STATUS: - Self-Care A. Eating Joe B. Grooming Charo C. Bathing Joe D. Dressing - Upper sup E. Dressing - Lower modA F. Toileting Joe - Sphincter Control G: Bladder control Ind H: Bowel control Ind - Transfers Control I. Bed/Chair/Wheelchair Joe J. Toilet Joe K. Tub/Shower Joe - Locomotion L. Walk/Wheelchair (B) Joe M. Stairs ADNO - Communication N. Comprehension (B) Jeo O. Expression (B) Joe - Social Cognition P. Social Interaction Joe Q. Problem Solving Joe R. Memory Joe - Endurance Fair - Balance Fair - Safety Awareness Poor CURRENT FUNC. DEFICITS: Self-Care, Transfers Control, Communication, Social Cognition, Endurance, Balance, Safety Awareness, and Locomotion SIGNATURE PANEL: (CDT)
[2018-09-07] MEDS: ATORVASTATIN 10 MG TAB PO SCH (22:39)
--- NOTE | 2018-09-08 02:17 | PN ---
Date of Progress Note: 09/07/2018 Subjective: The patient was seen this morning for followup. No new complaints, problems reported by the patient, lying in bed, not in distress. Objective: Vital Signs: Reviewed. HEENT: Unremarkable. Lungs: Clear to auscultation. Heart: Sounds normal. Abdomen: Soft. Bowel sounds normal. No guarding, rigidity, tenderness, distention. Extremities: No leg edema. Impression: 1.Debility. 2.Generalized weakness. 3.Anemia due to GI blood loss. 4.Coronary artery disease. Plan: Continue current medications. Continue physical therapy per guidance of Dr. August. We rivka l continue iron supplement and I will see him tomorrow for followup. APOORVA/MODL Voice ID: [id number] Report ID: [id number]
[2018-09-08] MEDS: METOPROLOL TAR 25 MG TAB PO SCH ×2 (05:08→17:29)
[2018-09-08] MEDS: PANTOPRAZOLE 40MG TABLET PO SCH (05:08)
[2018-09-08] MEDS: TORSEMIDE 20 MG TAB PO SCH ×2 (08:00→15:21)
[2018-09-08] MEDS: CRANBERRY FRUIT EXTRACT 200 MG CAP PO SCH ×2 (08:38→20:26)
[2018-09-08] MEDS: MAGNESIUM OXIDE 400 MG TAB PO SCH (08:38)
[2018-09-08] MEDS: FOLIC ACID 1 MG TABLET PO SCH (08:39)
[2018-09-08] MEDS: DOCUSATE NA 100 MG CAP PO SCH ×2 (08:39→20:26)
[2018-09-08] MEDS: TAMSULOSIN 0.4 MG SR CAP PO SCH (08:39)
[2018-09-08] MEDS: CYANOCOBALAMIN 1,000 MCG TAB PO SCH (08:39)
[2018-09-08] MEDS: FERROUS SULFATE 325 MG TAB PO SCH ×2 (08:40→20:26)
[2018-09-08] MEDS: ENSURE HIGH PROTEIN 237 ML CAN PO SCH ×2 (08:40→20:27)
[2018-09-08] MEDS: PROMOD 30 ML DOSE PO SCH ×2 (08:40→20:27)
[2018-09-08] MEDS: SPIRONOLACTONE 25 MG TABLET PO SCH (12:16)
--- NOTE | 2018-09-08 12:32 | FAST ---
ENCOUNTER DATE AND TIME: 09/08/2018 08:00 (CDT) NAME KAYLEE ARRIAGA DATE OF : 1930 DATE OF ADMISSION: 09/03/2018 18:48 (CDT) PHONE: AGE: 88 SSN# [id number] GENDER: Male ENCOUNTER PHYSICIAN: Dr. Juan Carlos August M.D. ADMISSION DIAGNOSIS: - Medically Complex Conditions 17 - Other Medically Complex Conditions (17.9) GI Bleed/metabolic encephalopathy. EATING: Activity did not occur on this shift EATING - SCORE: 0-UNK GROOMING: Comb/brush hair Oral care Patient shaved Wash, rinse, and dry face Wash, rinse, and dry hands GROOMING - STEP 1: Does the patient require the assistance of a person or device, or need extra time when grooming? Yes. GROOMING - STEP 2: Does the patient require the assistance of a helper? Yes. GROOMING - STEP 3: How much assistance does the patient require from the helper? Incidental touching assistance from the helper while grooming GROOMING - SCORE: 4-MIN BATHING: Abdomen Buttocks Chest Left arm Left lower leg and foot Left upper leg Perineal area Right arm Right lower leg and foot Right upper leg BATHING - STEP 1: Does the patient require the assistance of a person or device, or need extra time when bathing? Yes. BATHING - STEP 2: Does the patient require the assistance of a helper? Yes. BATHING - STEP 3: How much assistance does the patient require from the helper? Only supervision, cuing, coaxing, instr uctions, encouragement BATHING - SCORE: 5-SUP DRESSING - UPPER BODY: T-shirt/pullover shirt (four steps) ARTICLES SCORE Total number of steps: 4 DRESSING - UPPER BODY - STEP 1: Does the patient require help from a person or device, or need extra time when dressing above the [address]? Yes. DRESSING - UPPER BODY - STEP 2: Does the patient require the assistance of a helper? No. Patient only requires an assistive device, s uch as a button hook, velcro, or personal lines appraiser. OR s/he takes more than reasonable time as s/he dresses the upper body. OR there is a concern for safety when s/he dresses the upper body DRESSING - UPPER BODY - SCORE: 6-ADELIA DRESSING - LOWER BODY: Elastic waist pants (three steps) Slip-on shoe - Left foot (one step) Slip-on shoe - Right foot (one step) Sock - Left foot (one step) Sock - Right foot (one step) Underwear (three steps) ARTICLES SCORE Total number of steps: 10 DRESSING - LOWER BODY - STEP 1: Does the patient require help from a person or device, or need extra time when dressing below the [address]? Yes. DRESSING - LOWER BODY - STEP 2: Does the patient require the assistance of a helper? Yes. DRESSING - LOWER BODY - STEP 3: Does the helper touch the patient while dressing? No. DRESSING - LOWER BODY - SCORE: 5-SUP TOILETING: Activity did not occur on this shift TOILETING - SCORE: 0-UNK BLADDER MANAGEMENT: Activity did not occur on this shift BLADDER MANAGEMENT - SCORE: 7-IND BOWEL MANAGEMENT: Activity did not occur on this shift BOWEL MANAGEMENT - SCORE: 7-IND TRANSFERS: BED, CHAIR, WHEELCHAIR: Activity did not occur on this shift TRANSFERS: BED, CHAIR, WHEELCHAIR - SCORE: 0-UNK TRANSFERS: TOILET: Activity did not occur on this shift TRANSFERS: TOILET - SCORE: 0-UNK TRANSFERS: SHOWER: TRANSFERS: SHOWER - STEP 1: Does the patient require the assistance of a person or device, or need extra time with shower transfe rs? Yes. TRANSFERS: SHOWER - STEP 2: Does the patient require the assistance of a helper? Yes. TRANSFERS: SHOWER - STEP 3: How much assistance does the patient require from the helper? Only supervision, cuing, coaxing, or he lp to set out transfer equipment or to lock brakes and/or lift foot rests TRANSFERS: SHOWER - SCORE: 5-SUP TRANSFERS: TUB: Activity did not occur on this shift TRANSFERS: TUB - SCORE: 0-UNK LOCOMOTION: WALK: Activity did not occur on this shift LOCOMOTION: WALK - SCORE: 0-UNK LOCOMOTION: WHEELCHAIR: Activity did not occur on this shift LOCOMOTION: WHEELCHAIR - SCORE: 0-UNK LOCOMOTION: STAIRS: Activity did not occur on this shift LOCOMOTION: STAIRS - SCORE: 0-UNK COMPREHENSION: COMPREHENSION - SCORE: 0-UNK EXPRESSION EXPRESSION - SCORE: 0-UNK SOCIAL INTERACTION: SOCIAL INTERACTION - SCORE: 0-UNK PROBLEM SOLVING: PROBLEM SOLVING - SCORE: 0-UNK MEMORY: MEMORY - SCORE: 0-UNK SIGNATURE PANEL: The following modified sections: Eating - Score, Grooming - Score, Bathing - Score, Dressing - Upper Body - Score, Dressing - Lower Body - Score, Toileting - Score, Transfers: Bed, Chair, Wheelchair - S core, Transfers: Toilet - Score, Transfers: Shower - Score, Transfers: Tub - Score, Comprehension - S core, Expression - Score, Social Interaction - Score, Problem Solving - Score, Memory - Score were [e lectronically] signed by JIGNESH Gonzalez on ThuSep 08 2018 12:32:01 T-0500 ([facility] Time)
--- NOTE | 2018-09-08 16:08 | FAST ---
ENCOUNTER DATE AND TIME: 09/08/2018 08:00 (CDT) NAME KAYLEE ARRIAGA DATE OF : 1930 DATE OF ADMISSION: 09/03/2018 18:48 (CDT) PHONE: AGE: 88 SSN# [id number] GENDER: Male ENCOUNTER PHYSICIAN: Dr. Juan Carlos August M.D. ADMISSION DIAGNOSIS: - Medically Complex Conditions 17 - Other Medically Complex Conditions (17.9) GI Bleed/metabolic encephalopathy. EATING: Activity did not occur on this shift EATING - SCORE: 0-UNK GROOMING: Activity did not occur on this shift GROOMING - SCORE: 0-UNK BATHING: Activity did not occur on this shift BATHING - SCORE: 0-UNK DRESSING - UPPER BODY: Activity did not occur on this shift Patient is not dressing in public clothing ARTICLES SCORE Total number of steps: 0 DRESSING - UPPER BODY - SCORE: 0-UNK DRESSING - LOWER BODY: Activity did not occur on this shift Patient is not dressing in public clothing ARTICLES SCORE Total number of steps: 0 DRESSING - LOWER BODY - SCORE: 0-UNK TOILETING: Activity did not occur on this shift TOILETING - SCORE: 0-UNK BLADDER MANAGEMENT: Activity did not occur on this shift BLADDER MANAGEMENT - SCORE: 7-IND BOWEL MANAGEMENT: Activity did not occur on this shift BOWEL MANAGEMENT - SCORE: 7-IND TRANSFERS: BED, CHAIR, WHEELCHAIR: TRANSFERS: BED, CHAIR, WHEELCHAIR - STEP 1: Does the patient require assistance of a person or device, or need extra time with bed, chair, or whe elchair transfers? Yes. TRANSFERS: BED, CHAIR, WHEELCHAIR - STEP 2: Does the patient require the assistance of a helper? No. Patient only requires an assistive device fo r bed, chair, wheelchair transfers such as a sliding board, grab bar, or brace, OR s/he takes more th an reasonable time, OR there is a safety concern when s/he performs the transfers TRANSFERS: BED, CHAIR, WHEELCHAIR - SCORE: 6-ADELIA TRANSFERS: TOILET: Activity did not occur on this shift TRANSFERS: TOILET - SCORE: 0-UNK TRANSFERS: SHOWER: Activity did not occur on this shift TRANSFERS: SHOWER - SCORE: 0-UNK TRANSFERS: TUB: Activity did not occur on this shift TRANSFERS: TUB - SCORE: 0-UNK LOCOMOTION: WALK: LOCOMOTION: WALK - STEP 1: Does the patient need help from a person or device, or need extra time to walk 150 feet? Yes. LOCOMOTION: WALK - STEP 2: How much assistance does the patient require to walk a minimum of 150 feet? Only supervision, cuing, or coaxing LOCOMOTION: WALK - SCORE: 5-SUP LOCOMOTION: WHEELCHAIR: Activity did not occur on this shift LOCOMOTION: WHEELCHAIR - SCORE: 0-UNK LOCOMOTION: STAIRS: LOCOMOTION: STAIRS - STEP 1: Does the patient need help to go up and down 12 to 14 stairs? Yes. LOCOMOTION: STAIRS - STEP 2: How much assistance does the patient need from the helper to go a minimum of 12 to 14 stairs? Only jean pervision, cuing, or coaxing LOCOMOTION: STAIRS - SCORE: 5-SUP COMPREHENSION: COMPREHENSION - SCORE: 0-UNK EXPRESSION EXPRESSION - SCORE: 0-UNK SOCIAL INTERACTION: SOCIAL INTERACTION - SCORE: 0-UNK PROBLEM SOLVING: PROBLEM SOLVING - SCORE: 0-UNK MEMORY: MEMORY - SCORE: 0-UNK SIGNATURE PANEL: The following modified sections: Transfers: Bed, Chair, Wheelchair - Score, Transfers: Toilet - Score , Locomotion: Walk - Score, Locomotion: Wheelchair - Score, Locomotion: Stairs - Score were [ana paula young] signed by Jasson Panchal PT on ThuSep 08 2018 16:07:19 T-0500 ([facility] Day[facility] Time)
[2018-09-08] MEDS: ENOXAPARIN 30 MG/0.3 ML SQ SCH (16:13)
[2018-09-08] MEDS: ATORVASTATIN 10 MG TAB PO SCH (20:26)
--- NOTE | 2018-09-08 23:04 | R.PN ---
ENCOUNTER DATE AND TIME: 09/08/2018 22:50 (CDT) NAME KAYLEE ARRIAGA DATE OF : 1930 DATE OF ADMISSION: 09/03/2018 18:48 (CDT) GI Bleed/metabolic encephalopathyCHIEF COMPLAINT: Debility, GI bleed and metabolic encephalopathy SUBJECTIVE: Pt denied any Shortness of Breath. Pt denied any depression. Prealbumin 12.3, WBC 4.1. Modified barium swallow: delayed swallowing with residual cleared with nectar rinse. Ambulated 1000' with standby assistance using a rolling walker. Up and down 25 steps with standby ass istance. VITAL SIGNS Temperature: 97.8 F SBP/DBP: 122/57 Pulse: 86 Resp: 15 MEDICATION ALLERGIES: LEVOFLOXACIN metformin ENVIRONMENTAL ALLERGIES: - Substance Allergies None Known - Other Allergies None Known NURSING: - Shower allowing shower - Lab Results blood Sugar Check ACHS ACTIVITIES OOB only with supervision THERAPIES: - Dietary and Nutrition Adequate Nutrition. Nutritional Education. Nutritional Supplements. PHYSICAL EXAM - Gen Alert and awake Lying in bed No apparent distress Oriented to: person, time, and place - Skin Bruising on the dorsal right more than left hand, forearm and elbow. Atraumatic - Eyes No abnormalities - ENMT No abnormalities - Neck No abnormalities - CVS RRR - Chest No abnormalities - Abd +bowel sounds - GI Soft Deferred - No abnormalities - Ext No significant edema. - MSK 4+/5 weakness in both lower extremities. - Neuro 4/5 strength in both lower extremities. - Psych No abnormalities ASSESSMENT: Pt. is a 88 yo Right-handed white male.On 08/22/2018 he was admitted to [facility] with diagnosis GI Bleed/metabolic encephalopathy.His impairment category is Medically Comple x Conditions 17 - Other Medically Complex Conditions (17.9).Pre-morbidly, Pt. was independent/mod-I in Self-Care, Sphincter Control, Transfers Control, Communication, Social Cognition, and Locomotion; and he had good Sphincter Control.Currently, he has deficits of Self-Care, Transfers Control, Communi cation, Social Cognition, Endurance, Balance, Safety Awareness, and Locomotion.Pt. is now referred to [facility] for acute in-patient rehabilitation in order to maximize patient's functional independence in activities of daily living, strength, ROM, and mobility.- Rehab Goal Patient has realistic goal of being discharged at assistance level 4-Joe to reside at Home with Fam deon/Relatives. MDM/PLAN: - Physical Therapy Gait dysfunction - to improve, our physical therapists will perform initial evaluation of pt's statu s upon admission and devise an individualized program for Gait Training, and Wheel Chair mobility Inability to transfer - to improve, our physical therapists will perform initial evaluation of pt's status upon admission and devise an individualized program for Bed mobility Need for home safety evaluation - to improve, our physical therapists will perform initial evaluatio n of pt's status upon admission and devise an individualized program for Home Evaluation Need in caregiver upon discharge - to improve, our physical therapists will perform initial evaluati on of pt's status upon admission and devise an individualized program for Caregiver Training New precaution - to improve, our physical therapists will perform initial evaluation of pt's status upon admission and devise an individualized program for Patient precaution education Edema - to improve, our physical therapists will perform initial evaluation of pt's status upon admi ssion and devise an individualized program for Elevation Training, and Lymphedema Therapy Poor balance - to improve, our physical therapists will perform initial evaluation of pt's status up on admission and devise an individualized program for Balance Training Poor endurance - to improve, our physical therapists will perform initial evaluation of pt's status upon admission and devise an individualized program for Endurance Training Weakness - to improve, our physical therapists will perform initial evaluation of pt's status upon a dmission and devise an individualized program for Aquatic Therapy, Neuromuscular Reeducation, and Str engthening Achieving independence - to improve, our physical therapists will perform initial evaluation of pt's status upon admission and devise an individualized program for Community Reintegration Activities - Occupational Therapy ADL deficits - to improve, our occupation therapists will perform initial evaluation of pt's status upon admission and devise an individualized program for Bathing, Bed mobility, Community Reintegratio n, Cooking, Dressing, Eating, Fine Motor Skills, Grooming, Homemaking, Kitchen Mobility, Laundry, Pat ient Education, Safety Awareness, Splinting - Positioning, Transfers(Toilet, Tub, Shower), and Wheel Chair Management Cognitive deficits - to improve, our occupation therapists will perform initial evaluation of pt's s tatus upon admission and devise an individualized program for Cognition - orientation Need for career development consultant - to improve, our occupation therapists will perform initial evaluation of pt's status upon admission and devise an individualized program for Caregiver Training Weakness - to improve, our occupation therapists will perform initial evaluation of pt's status upon admission and devise an individualized program for Aquatic Therapy, Balance, Endurance, UE ROM, and UE strengthening - Other See attached MAR (Medication Administration Record) [id number].pdf - Diet Type Continue Regular - Diet - Liquid Texture Continue Regular - Tube Feed Continue N/A - Lab Results blood Sugar Check ACHS - Diet - Solid Texture Continue Regular - Shower allowing shower FUNCTIONAL STATUS: UPDATED AT WEEKLY TEAM CONFERENCE - Bladder Same accident frequency: 7-Ind - No accidents in the past 7 days - Bowel Same accident frequency: 7-Ind - No accidents in the past 7 days - Walking Same score based on distance walked: 3(>=150ft) FUNCTIONAL STATUS: - Self-Care A. Eating Joe B. Grooming Charo C. Bathing Joe D. Dressing - Upper sup E. Dressing - Lower modA F. Toileting Joe - Sphincter Control G: Bladder control Ind H: Bowel control Ind - Transfers Control I. Bed/Chair/Wheelchair Joe J. Toilet Joe K. Tub/Shower Joe - Locomotion L. Walk/Wheelchair (B) Joe M. Stairs ADNO - Communication N. Comprehension (B) Joe O. Expression (B) Joe - Social Cognition P. Social Interaction Joe Q. Problem Solving Joe R. Memory Joe - Endurance Fair - Balance Fair - Safety Awareness Poor CURRENT FUNC. DEFICITS: Self-Care, Transfers Control, Communication, Social Cognition, Endurance, Balance, Safety Awareness, and Locomotion SIGNATURE PANEL: (CDT)
[2018-09-09] MEDS: MELATONIN 3 MG TABLET PO PRN (00:17)
--- NOTE | 2018-09-09 02:05 | FAST ---
SHIFT START DATE/TIME: 09/08/2018 19:00 (CDT) SHIFT END DATE/TIME: 09/09/2018 07:00 (CDT) NAME KAYLEE ARRIAGA DATE OF : 1930 DATE OF ADMISSION: 09/03/2018 18:48 (CDT) PHONE: AGE: 88 N# [id number] GENDER: Male ENCOUNTER PHYSICIAN: Dr. Juan Carlos August M.D. ADMISSION DIAGNOSIS: - Medically Complex Conditions 17 - Other Medically Complex Conditions (17.9) GI Bleed/metabolic encephalopathy. EATING: Activity did not occur on this shift EATING - SCORE: 0-UNK GROOMING: Oral care Wash, rinse, and dry hands GROOMING - STEP 1: Does the patient require the assistance of a person or device, or need extra time when grooming? Yes. GROOMING - STEP 2: Does the patient require the assistance of a helper? Yes. GROOMING - STEP 3: How much assistance does the patient require from the helper? Only prior equipment preparation/set up from the helper GROOMING - SCORE: 5-SUP BATHING: Activity did not occur on this shift BATHING - SCORE: 0-UNK DRESSING - UPPER BODY: Patient is not dressing in public clothing ARTICLES SCORE Total number of steps: 0 DRESSING - UPPER BODY - SCORE: 0-UNK DRESSING - LOWER BODY: Patient is not dressing in public clothing ARTICLES SCORE Total number of steps: 0 DRESSING - LOWER BODY - SCORE: 0-UNK TOILETING: TOILETING - STEP 1: Does the patient require the assistance of a person or device, or need extra time with toileting? Yes . TOILETING - STEP 2: Does the patient require the assistance of a helper? Yes. TOILETING - STEP 3: How much assistance does the patient require from the helper? Hands-on assistance from the helper TOILETING - STEP 4: Of the 3 tasks: 1) Adjusting clothing prior to use, 2) Cleansing of perineal area, 3) Adjusting clot [place] after use; How many tasks does the patient perform WITHOUT assistance of the helper? Three tasks with steadying assistance from the helper TOILETING - SCORE: 4-MIN BLADDER MANAGEMENT: [place] removes incontinent device (Depends, pull ups, etc.); cleans the patient after accident / inco ntinent episode; and, applies new incontinent device. BLADDER MANAGEMENT - SCORE: 1-DEP BOWEL MANAGEMENT: BOWEL MANAGEMENT - STEP 1: Does the patient control bowels completely and intentionally without equipment devices or medications AND is always continent? No. BOWEL MANAGEMENT - STEP 2: Does the patient require the assistance of a helper? No, patient requires medication for control such as stool softeners, suppositories, laxatives, enemas, or OTC medications BOWEL MANAGEMENT - SCORE: 6-ADELIA TRANSFERS: BED, CHAIR, WHEELCHAIR: TRANSFERS: BED, CHAIR, WHEELCHAIR - STEP 1: Does the patient require assistance of a person or device, or need extra time with bed, chair, or whe elchair transfers? Yes. TRANSFERS: BED, CHAIR, WHEELCHAIR - STEP 2: Does the patient require the assistance of a helper? Yes. TRANSFERS: BED, CHAIR, WHEELCHAIR - STEP 3: How much assistance does the patient require from the helper? Steadying/guiding assistance TRANSFERS: BED, CHAIR, WHEELCHAIR - SCORE: 4-MIN TRANSFERS: TOILET: TRANSFERS: TOILET - STEP 1: Does the patient require the assistance of a person or device, or need extra time with toilet transfe rs? Yes. TRANSFERS: TOILET - STEP 2: Does the patient require the assistance of a helper? Yes. TRANSFERS: TOILET - STEP 3: How much assistance does the patient require from the helper? Patient performs half or more of the tr ansferring tasks TRANSFERS: TOILET - STEP 4: Does the patient need only incidental help such as contact guard or steadying during toilet transfer? Yes. TRANSFERS: TOILET - SCORE: 4-MIN TRANSFERS: SHOWER: Activity did not occur on this shift TRANSFERS: SHOWER - SCORE: 0-UNK TRANSFERS: TUB: Activity did not occur on this shift TRANSFERS: TUB - SCORE: 0-UNK LOCOMOTION: WALK: Activity did not occur on this shift LOCOMOTION: WALK - SCORE: 0-UNK LOCOMOTION: WHEELCHAIR: Activity did not occur on this shift LOCOMOTION: WHEELCHAIR - SCORE: 0-UNK COMPREHENSION: COMPREHENSION: TYPE: Both COMPREHENSION - STEP 1: Does the patient require help from a person or device, or need extra time to understand complex and a bstract ideas (such as current events, finances, discharge planning, medical issues, relationships, e tc)? Yes. COMPREHENSION - STEP 2: Does the patient require help to understand questions or statements about basic needs or ideas (such as hunger, thirst, sleep, safety, daily schedule, room location, or discomfort) half or more of the t mack? No. COMPREHENSION - STEP 3: How often does the patient need help to understand directions and conversation about basic needs? 10% - 24% of the time COMPREHENSION - SCORE: 4-MIN EXPRESSION EXPRESSION: TYPE: Both EXPRESSION - STEP 1: Does the patient require help from a person or device, or need extra time expressing complex and abst ract ideas (such as current events, finances, discharge planning, medical issues, relationships, etc) ? No. EXPRESSION - STEP 2: Does the patient need extra time, require an assistive device (such as augmentive communication syste m or a communication board), OR does s/he have mild difficulty expressing complex and abstract ideas (including mild dysarthria or mild word-find problems)? Yes. EXPRESSION - SCORE: 6-ADELIA SOCIAL INTERACTION: SOCIAL INTERACTION - STEP 1: Does the patient require a helper to interact with others in social and therapeutic situations? No. SOCIAL INTERACTION - STEP 2: Does the patient need extra time in social situations, OR does s/he interact with staff, other patien ts, and family members ONLY in structured environments, OR does s/he require medication for social in teraction? Yes, patient needs extra time SOCIAL INTERACTION - SCORE: 6-ADELIA PROBLEM SOLVING: PROBLEM SOLVING - STEP 1: Does the patient need help from a person or device, or need extra time to solve complex problems such as managing a checking account or confronting interpersonal problems? Yes. PROBLEM SOLVING - STEP 2: Does the patient solve basic routine problems half or more of the time? Yes. PROBLEM SOLVING - STEP 3: How often does the patient need help to solve basic routine problems? 10%-24% of the time PROBLEM SOLVING - SCORE: 4-MIN MEMORY: MEMORY - STEP 1: Does the patient need help from a person or device, or need extra time to remember frequently encount ered people, daily routines, and executing requests? No. MEMORY - STEP 2: Does the patient have slight difficulty recognizing frequently encountered people, daily routines, or executing requests without the need for repetition or using self-initiated or environmental cues to remember? Yes. MEMORY - SCORE: 6-ADELIA SIGNATURE PANEL: The following modified sections: Eating - Score, Grooming - Score, Dressing - Upper Body - Score, Magdiel ssing - Lower Body - Score, Toileting - Score, Bladder Management - Score, Bowel Management - Score, Transfers: Bed, Chair, Wheelchair - Score, Transfers: Toilet - Score, Transfers: Shower - Score, Lamb sfers: Tub - Score, Locomotion: Walk - Score, Locomotion: Wheelchair - Score, Comprehension - Score, Expression - Score, Social Interaction - Score, Problem Solving - Score, Memory - Score were [electro nically] signed by Wendi Valiente CNA on ThuSep 09 2018 02:05:05 GMT-0500 (Central Daylight Time)
--- NOTE | 2018-09-09 03:11 | PN ---
Date of Progress Note: 09/08/2018 Subjective: The patient was seen this morning for followup. No new complaints, problems reported by him. He was sitting in a recliner next to the bed. Denied any complaints. No nausea, vomiting, ab dominal pain. No constipation or diarrhea. Objective: Vital Signs: Reviewed. HEENT: Unremarkable. Lungs: Clear to auscultation. Heart: Sounds normal. Abdomen: Soft. Bowel sounds normal. No guarding, rigidity, tenderness, distention. Extremities: No leg edema. Impression: 1.Debility. 2.Generalized weakness. 3.Cirrhosis of liver. 4.Anemia due to GI blood loss. 5.Coronary artery disease. 6.Hypertension. 7.Hyperlipidemia. Plan: Continue current medication. Continue DVT prophylaxis, physical therapy per guidance of Dr. Luis E castillo. I have talked to Dr. August and requested him to take over this patient's care during my absence starting tomorrow. APOORVA/MODL Voice ID: [id number] Report ID: [id number]
[2018-09-09] MEDS: METOPROLOL TAR 25 MG TAB PO SCH ×2 (05:13→17:50)
[2018-09-09] MEDS: PANTOPRAZOLE 40MG TABLET PO SCH (06:20)
[2018-09-09 06:58] LABS: Absolute Lymphocytes (CBC) 0.8 K/uL (0.7-4.9); Basophils % 1.1 % (0-1.3); Eosinophils % 5.2 % (0-4.4); Hematocrit 27.3 % (39.6-49.0); Lymphocytes % 18.3 % (15.3-44.8); MPV 8.1 fL (7.6-11.3); Monocytes % 9.9 % (3.3-12.3)
[2018-09-09 07:23] LABS: Magnesium 2.1 mg/dL (1.8-2.4); Potassium 4.2 mmol/L (3.5-5.1); Prealbumin 15.6 mg/dL (20-40)
[2018-09-09] MEDS: CRANBERRY FRUIT EXTRACT 200 MG CAP PO SCH ×2 (09:17→20:00)
[2018-09-09] MEDS: TAMSULOSIN 0.4 MG SR CAP PO SCH (09:18)
[2018-09-09] MEDS: DOCUSATE NA 100 MG CAP PO SCH ×2 (09:18→20:00)
[2018-09-09] MEDS: TORSEMIDE 20 MG TAB PO SCH (09:18)
[2018-09-09] MEDS: FOLIC ACID 1 MG TABLET PO SCH (09:18)
[2018-09-09] MEDS: CYANOCOBALAMIN 1,000 MCG TAB PO SCH (09:19)
[2018-09-09] MEDS: ENSURE HIGH PROTEIN 237 ML CAN PO SCH ×3 (09:19→21:15)
[2018-09-09] MEDS: FERROUS SULFATE 325 MG TAB PO SCH ×2 (09:19→20:00)
[2018-09-09] MEDS: MAGNESIUM OXIDE 400 MG TAB PO SCH (09:19)
[2018-09-09] MEDS: PROMOD 30 ML DOSE PO SCH ×2 (09:19→20:00)
--- NOTE | 2018-09-09 09:41 | RAD REPORT ---
EXAM DESCRIPTION: RAD - Abdomen 1 View (KUB) - 09/09/2018 9:23 am CLINICAL HISTORY: Abdominal pain COMPARISON: None. FINDINGS: Bowel gas pattern is non-specific. No obstruction, free air or pneumatosis. Contrast is p resent in numerous colonic diverticula appendix with stool in the left side colon. This is from a kirk or modified barium swallow diagnostic study. No dilated large or small bowel. No suspicious calcifications. Numerous surgical clips are present. No significant bony findings IMPRESSION: No bowel obstruction, free air or other acute finding.
[2018-09-09] MEDS ORDERED: ONDANSETRON 4 MG (ODT) TAB PO PRN (13:19)
[2018-09-09] MEDS: SPIRONOLACTONE 25 MG TABLET PO SCH (13:26)
[2018-09-09] MEDS ORDERED: ONDANSETRON 4 MG (ODT) TAB ONE (13:27)
[2018-09-09 15:16] LABS: Albumin 3.4 g/dL (3.4-5.0); Bilirubin Direct 0.4 mg/dL (0-0.2); Protein, Total 7.3 g/dL (6.4-8.2)
--- NOTE | 2018-09-09 15:24 | RAD REPORT ---
EXAM DESCRIPTION: CT - Abdomen Pelvis Wo Contrast - 09/09/2018 3:09 pm CLINICAL HISTORY: Abdominal pain. Abdominal pain COMPARISON: Abdomen Pelvis W Contrast dated 03/01/2018; Abdomen 1 View (KUB) dated 09/09/2018; Jerel um Swallow Modified dated 09/06/2018 TECHNIQUE: CT imaging of the abdomen and pelvis was performed without contrast. Solid organ, bowel a nd vascular assessment is limited due to lack of IV and oral contrast. All CT scans are performed using dose optimization technique as appropriate and may include automated exposure control or mA/KV adjustment according to patient size. FINDINGS: The lower lung joseph are emphysematous but clear.The heart is moderately enlarged. Noncontrast assessment of the liver demonstrates small 13 mm cyst in the inferior right lobe. There i s a subtle nodular contour to the right lobe of the liver suggesting cirrhosis. Cholecystectomy clips are seen. The spleen, pancreas, right adrenal gland and kidneys are within normal limits. Mild thick ening of the left adrenal gland seen. No bowel obstruction, free air, free fluid or abscess. Prominent retention of stool is seen in the co storm with numerous diverticula evident. The appendix is normal in size but contains numerous appendico liths. Atherosclerosis of the aorta is seen. The osseous structures are within normal limits. IMPRESSION: Significant fecal retention in the colon with numerous colonic diverticula present. Mild liver cirrhosis. Cholecystectomy. A limited non-contrast examination was performed as detailed.
[2018-09-09] MEDS: ENOXAPARIN 30 MG/0.3 ML SQ SCH (16:12)
--- NOTE | 2018-09-09 16:31 | FAST ---
ENCOUNTER DATE AND TIME: 09/09/2018 08:00 (CDT) NAME KAYLEE ARRIAGA DATE OF : 1930 DATE OF ADMISSION: 09/03/2018 18:48 (CDT) PHONE: AGE: 88 SSN# [id number] GENDER: Male ENCOUNTER PHYSICIAN: Dr. Juan Carlos August M.D. ADMISSION DIAGNOSIS: - Medically Complex Conditions 17 - Other Medically Complex Conditions (17.9) GI Bleed/metabolic encephalopathy. EATING: Activity did not occur on this shift EATING - SCORE: 0-UNK GROOMING: Activity did not occur on this shift GROOMING - SCORE: 0-UNK BATHING: Activity did not occur on this shift BATHING - SCORE: 0-UNK DRESSING - UPPER BODY: Activity did not occur on this shift Patient is not dressing in public clothing ARTICLES SCORE Total number of steps: 0 DRESSING - UPPER BODY - SCORE: 0-UNK DRESSING - LOWER BODY: Activity did not occur on this shift Patient is not dressing in public clothing ARTICLES SCORE Total number of steps: 0 DRESSING - LOWER BODY - SCORE: 0-UNK TOILETING: Activity did not occur on this shift TOILETING - SCORE: 0-UNK BLADDER MANAGEMENT: Activity did not occur on this shift BLADDER MANAGEMENT - SCORE: 7-IND BOWEL MANAGEMENT: Activity did not occur on this shift BOWEL MANAGEMENT - SCORE: 7-IND TRANSFERS: BED, CHAIR, WHEELCHAIR: TRANSFERS: BED, CHAIR, WHEELCHAIR - STEP 1: Does the patient require assistance of a person or device, or need extra time with bed, chair, or whe elchair transfers? Yes. TRANSFERS: BED, CHAIR, WHEELCHAIR - STEP 2: Does the patient require the assistance of a helper? Yes. TRANSFERS: BED, CHAIR, WHEELCHAIR - STEP 3: How much assistance does the patient require from the helper? Only supervision TRANSFERS: BED, CHAIR, WHEELCHAIR - SCORE: 5-SUP TRANSFERS: TOILET: Activity did not occur on this shift TRANSFERS: TOILET - SCORE: 0-UNK TRANSFERS: SHOWER: Activity did not occur on this shift TRANSFERS: SHOWER - SCORE: 0-UNK TRANSFERS: TUB: Activity did not occur on this shift TRANSFERS: TUB - SCORE: 0-UNK LOCOMOTION: WALK: LOCOMOTION: WALK - STEP 1: Does the patient need help from a person or device, or need extra time to walk 150 feet? Yes. LOCOMOTION: WALK - STEP 2: How much assistance does the patient require to walk a minimum of 150 feet? Only supervision, cuing, or coaxing LOCOMOTION: WALK - SCORE: 5-SUP LOCOMOTION: WHEELCHAIR: Activity did not occur on this shift LOCOMOTION: WHEELCHAIR - SCORE: 0-UNK LOCOMOTION: STAIRS: Activity did not occur on this shift LOCOMOTION: STAIRS - SCORE: 0-UNK COMPREHENSION: COMPREHENSION - SCORE: 0-UNK EXPRESSION EXPRESSION - SCORE: 0-UNK SOCIAL INTERACTION: SOCIAL INTERACTION - SCORE: 0-UNK PROBLEM SOLVING: PROBLEM SOLVING - SCORE: 0-UNK MEMORY: MEMORY - SCORE: 0-UNK SIGNATURE PANEL: The following modified sections: Transfers: Bed, Chair, Wheelchair - Score, Transfers: Toilet - Score , Locomotion: Walk - Score, Locomotion: Wheelchair - Score, Locomotion: Stairs - Score were [electron hector] signed by Jasson Panchal PT on ThuSep 09 2018 16:30:17 T-0500 (Central Daylight Time)
[2018-09-09] MEDS: ATORVASTATIN 10 MG TAB PO SCH (21:00)
[2018-09-09] MEDS: NA CHLORIDE 0.9% 1,000 ML IV SCH (23:00)
--- NOTE | 2018-09-10 03:08 | FAST ---
SHIFT START DATE/TIME: 09/09/2018 19:00 (CDT) SHIFT END DATE/TIME: 09/10/2018 07:00 (CDT) NAME KAYLEE ARRIAGA DATE OF : 1930 DATE OF ADMISSION: 09/03/2018 18:48 (CDT) PHONE: AGE: 88 N# [id number] GENDER: Male ENCOUNTER PHYSICIAN: Dr. Juan Carlos August M.D. ADMISSION DIAGNOSIS: - Medically Complex Conditions 17 - Other Medically Complex Conditions (17.9) GI Bleed/metabolic encephalopathy. EATING: Activity did not occur on this shift EATING - SCORE: 0-UNK GROOMING: Activity did not occur on this shift GROOMING - SCORE: 0-UNK BATHING: Activity did not occur on this shift BATHING - SCORE: 0-UNK DRESSING - UPPER BODY: Patient is not dressing in public clothing ARTICLES SCORE Total number of steps: 0 DRESSING - UPPER BODY - SCORE: 0-UNK DRESSING - LOWER BODY: Patient is not dressing in public clothing ARTICLES SCORE Total number of steps: 0 DRESSING - LOWER BODY - SCORE: 0-UNK TOILETING: TOILETING - STEP 1: Does the patient require the assistance of a person or device, or need extra time with toileting? Yes . TOILETING - STEP 2: Does the patient require the assistance of a helper? Yes. TOILETING - STEP 3: How much assistance does the patient require from the helper? Hands-on assistance from the helper TOILETING - STEP 4: Of the 3 tasks: 1) Adjusting clothing prior to use, 2) Cleansing of perineal area, 3) Adjusting clot [place] after use; How many tasks does the patient perform WITHOUT assistance of the helper? Two tasks TOILETING - SCORE: 3-MOD BLADDER MANAGEMENT: BLADDER MANAGEMENT - STEP 1: Does the patient control the bladder completely and intentionally without equipment or devices or med ications, and is always continent? No. BLADDER MANAGEMENT - STEP 2: Does the patient require the assistance of a helper? Yes. BLADDER MANAGEMENT - STEP 3: How much assistance does the patient require from the helper? Only set-up of equipment - such as plac ing it within reach of the patient or emptying a device - to maintain either satisfactory voiding pat tern or managing an external device, such as an absorbent pad, ileal device, or catheter BLADDER MANAGEMENT - SCORE: 5-SUP BOWEL MANAGEMENT: BOWEL MANAGEMENT - STEP 1: Does the patient control bowels completely and intentionally without equipment devices or medications AND is always continent? No. BOWEL MANAGEMENT - STEP 2: Does the patient require the assistance of a helper? No, patient requires medication for control such as stool softeners, suppositories, laxatives, enemas, or OTC medications BOWEL MANAGEMENT - SCORE: 6-ADELIA TRANSFERS: BED, CHAIR, WHEELCHAIR: Activity did not occur on this shift TRANSFERS: BED, CHAIR, WHEELCHAIR - SCORE: 0-UNK TRANSFERS: TOILET: Activity did not occur on this shift TRANSFERS: TOILET - SCORE: 0-UNK TRANSFERS: SHOWER: Activity did not occur on this shift TRANSFERS: SHOWER - SCORE: 0-UNK TRANSFERS: TUB: Activity did not occur on this shift TRANSFERS: TUB - SCORE: 0-UNK LOCOMOTION: WALK: Activity did not occur on this shift LOCOMOTION: WALK - SCORE: 0-UNK LOCOMOTION: WHEELCHAIR: Activity did not occur on this shift LOCOMOTION: WHEELCHAIR - SCORE: 0-UNK COMPREHENSION: COMPREHENSION: TYPE: Both COMPREHENSION - STEP 1: Does the patient require help from a person or device, or need extra time to understand complex and a bstract ideas (such as current events, finances, discharge planning, medical issues, relationships, e tc)? Yes. COMPREHENSION - STEP 2: Does the patient require help to understand questions or statements about basic needs or ideas (such as hunger, thirst, sleep, safety, daily schedule, room location, or discomfort) half or more of the t mack? No. COMPREHENSION - STEP 3: How often does the patient need help to understand directions and conversation about basic needs? 10% - 24% of the time COMPREHENSION - SCORE: 4-MIN EXPRESSION EXPRESSION: TYPE: Both EXPRESSION - STEP 1: Does the patient require help from a person or device, or need extra time expressing complex and abst ract ideas (such as current events, finances, discharge planning, medical issues, relationships, etc) ? No. EXPRESSION - STEP 2: Does the patient need extra time, require an assistive device (such as augmentive communication syste m or a communication board), OR does s/he have mild difficulty expressing complex and abstract ideas (including mild dysarthria or mild word-find problems)? No. EXPRESSION - SCORE: 7-IND SOCIAL INTERACTION: SOCIAL INTERACTION - STEP 1: Does the patient require a helper to interact with others in social and therapeutic situations? No. SOCIAL INTERACTION - STEP 2: Does the patient need extra time in social situations, OR does s/he interact with staff, other patien ts, and family members ONLY in structured environments, OR does s/he require medication for social in teraction? Yes, patient needs extra time SOCIAL INTERACTION - SCORE: 6-ADELIA PROBLEM SOLVING: PROBLEM SOLVING - STEP 1: Does the patient need help from a person or device, or need extra time to solve complex problems such as managing a checking account or confronting interpersonal problems? Yes. PROBLEM SOLVING - STEP 2: Does the patient solve basic routine problems half or more of the time? Yes. PROBLEM SOLVING - STEP 3: How often does the patient need help to solve basic routine problems? 10%-24% of the time PROBLEM SOLVING - SCORE: 4-MIN MEMORY: MEMORY - STEP 1: Does the patient need help from a person or device, or need extra time to remember frequently encount ered people, daily routines, and executing requests? No. MEMORY - STEP 2: Does the patient have slight difficulty recognizing frequently encountered people, daily routines, or executing requests without the need for repetition or using self-initiated or environmental cues to remember? Yes. MEMORY - SCORE: 6-ADELIA SIGNATURE PANEL: The following modified sections: Eating - Score, Grooming - Score, Dressing - Upper Body - Score, Magdiel ssing - Lower Body - Score, Toileting - Score, Bladder Management - Score, Bowel Management - Score, Transfers: Bed, Chair, Wheelchair - Score, Transfers: Toilet - Score, Transfers: Shower - Score, Lamb sfers: Tub - Score, Locomotion: Walk - Score, Locomotion: Wheelchair - Score, Comprehension - Score, Expression - Score, Social Interaction - Score, Problem Solving - Score, Memory - Score were [electro nically] signed by Wendi Valiente CNA on ThuSep 10 2018 03:07:04 GMT-0500 (Central Daylight Time)
[2018-09-10] MEDS: METOPROLOL TAR 25 MG TAB PO SCH ×2 (05:17→17:21)
[2018-09-10] MEDS: ONDANSETRON 4 MG/2 ML VIAL IV PRN ×4 (05:17→21:18)
[2018-09-10] MEDS: SPIRONOLACTONE 25 MG TABLET PO SCH (05:40)
[2018-09-10 06:28] LABS: Absolute Lymphocytes (CBC) 0.6 K/uL (0.7-4.9); Basophils % 0.5 % (0-1.3); Eosinophils % 1.1 % (0-4.4); Hematocrit 29.6 % (39.6-49.0); Lymphocytes % 9.5 % (15.3-44.8); MPV 8.7 fL (7.6-11.3); Monocytes % 10.5 % (3.3-12.3); RBC Red Blood Cell Count 2.99 M/uL (4.33-5.43)
[2018-09-10] MEDS: PANTOPRAZOLE 40MG TABLET PO SCH (06:39)
[2018-09-10 06:41] LABS: Potassium 3.9 mmol/L (3.5-5.1)
[2018-09-10] MEDS: PROMOD 30 ML DOSE PO SCH ×2 (08:00→20:00)
[2018-09-10] MEDS: ENSURE HIGH PROTEIN 237 ML CAN PO SCH ×2 (08:00→20:00)
[2018-09-10] MEDS: FOLIC ACID 1 MG TABLET PO SCH (09:23)
[2018-09-10] MEDS: TAMSULOSIN 0.4 MG SR CAP PO SCH (09:23)
[2018-09-10] MEDS: CRANBERRY FRUIT EXTRACT 200 MG CAP PO SCH ×2 (09:23→21:17)
[2018-09-10] MEDS: FERROUS SULFATE 325 MG TAB PO SCH ×2 (09:23→21:17)
[2018-09-10] MEDS: DOCUSATE NA 100 MG CAP PO SCH ×2 (09:23→21:18)
[2018-09-10] MEDS: MAGNESIUM OXIDE 400 MG TAB PO SCH (09:24)
[2018-09-10] MEDS: CYANOCOBALAMIN 1,000 MCG TAB PO SCH (09:45)
--- NOTE | 2018-09-10 10:05 | P.RH.PN ---
Estimated Length of Stay: 10 Expected Discharge Date: 09/12/18 Discharge Disposition Plan: Home Vital Signs: Last Vital Signs Temp 97.8 F 09/09/18 20:00 Pulse 79 09/10/18 05:40 Resp 16 09/09/18 20:00 BP 111/55 L 09/10/18 05:40 Pulse Ox 95 09/09/18 20:00 Laboratory: Laboratory Last Values WBC 6.1 K/uL (4.3-10.9) D 09/10/18 06:02 RBC 2.99 M/uL (4.33-5.43) L 09/10/18 06:02 Hgb 9.9 g/dL (13.6-17.9) L 09/10/18 06:02 Hct 29.6 % (39.6-49.0) L 09/10/18 06:02 MCV 98.9 fL (80-100) 09/10/18 06:02 MCH 33.0 pg (27.0-35.0) 09/10/18 06:02 MCHC 33.3 g/dL (32.0-36.0) 09/10/18 06:02 RDW 16.5 % (12.1-15.2) H 09/10/18 06:02 Plt Count 182 K/uL (152-406) 09/10/18 06:02 MPV 8.7 fL (7.6-11.3) 09/10/18 06:02 Neutrophils % 78.4 % (41.7-73.7) H 09/10/18 06:02 Lymphocytes % 9.5 % (15.3-44.8) L 09/10/18 06:02 Monocytes % 10.5 % (3.3-12.3) 09/10/18 06:02 Eosinophils % 1.1 % (0-4.4) 09/10/18 06:02 Basophils % 0.5 % (0-1.3) 09/10/18 06:02 Absolute Neutrophils 4.8 K/uL (1.8-8.0) 09/10/18 06:02 Absolute Lymphocytes 0.6 K/uL (0.7-4.9) L 09/10/18 06:02 Absolute Monocytes 0.6 K/uL (0.1-1.3) 09/10/18 06:02 Absolute Eosinophils 0.1 K/uL (0-0.5) 09/10/18 06:02 Absolute Basophils 0.0 K/uL (0-0.5) 09/10/18 06:02 Sodium 142 mmol/L (136-145) 09/10/18 06:02 Potassium 3.9 mmol/L (3.5-5.1) 09/10/18 06:02 Chloride 106 mmol/L (98-107) 09/10/18 06:02 Carbon Dioxide 28 mmol/L (21-32) 09/10/18 06:02 BUN 26 mg/dL (7-18) H 09/10/18 06:02 Creatinine 1.32 mg/dL (0.55-1.3) H 09/10/18 06:02 Estimated GFR 51 mL/min (=/>90) L 09/10/18 06:02 Glucose 128 mg/dL (74-106) H 09/10/18 06:02 Calcium 9.1 mg/dL (8.5-10.1) 09/10/18 06:02 Magnesium 2.1 mg/dL (1.8-2.4) 09/09/18 06:41 Total Bilirubin 1.0 mg/dL (0.2-1.0) 09/09/18 14:39 Direct Bilirubin 0.4 mg/dL (0-0.2) H 09/09/18 14:39 AST 26 U/L (15-37) 09/09/18 14:39 ALT 27 U/L (12-78) 09/09/18 14:39 Alkaline Phosphatase 167 U/L (45-117) H 09/09/18 14:39 Serum Total Protein 7.3 g/dL (6.4-8.2) 09/09/18 14:39 Albumin 3.4 g/dL (3.4-5.0) 09/09/18 14:39 Globulin 3.9 g/dL (2.3-3.5) H 09/09/18 14:39 Albumin/Globulin Ratio 0.9 (1.1-1.8) L 09/09/18 14:39 Prealbumin 15.6 mg/dL (20-40) L 09/09/18 06:41 Urine Color Dk yellow 09/03/18 19:30 Urine Appearance Clear 09/03/18 19:30 Urine pH 6.0 (5.0-7.0) 09/03/18 19: Ur Specific [place] 1.020 (1.005-1.030) 09/03/18 19:30 Urine Ketones Negative (NEG) 09/03/18 19:30 Urine Blood Negative (NEG) 09/03/18 19:30 Urine Nitrite Negative (NEG) 09/03/18 19: Urine Bilirubin Negative (NEG) 09/03/18 19: Urine Urobilinogen 1.0 mg/dL (0.2-1.0) 09/03/18 19:30 Ur Leukocyte Esterase Trace (NEG) H 09/03/18 19: Urine RBC None seen /HPF (NONE SEEN) 09/03/18: Urine WBC <5 /HPF (<5) 09/03/18 19:30 Ur Squamous Epith Cells 5-10 /HPF (NONE SEEN) H 09/03/18 19: Urine Bacteria 20-50 /HPF (NONE SEEN) H 09/03/18 19: Urine Culture Reflexed Not needed 09/03/18 19: Urine Glucose Negative (NEG) 09/03/18 19:30 Urine Total Protein 1+ (NEG) H 09/03/18 19:30 Weight: 166 lb 1 oz Wound Present: No Closed Surgical Incision Present: No Negative Pressure Wound Therapy Present: No Physician Update: Abdominal CT scan shows significant retained stool in the colon. He has nausea with dehydration. He is doing very well at modified independence walking 500'. He is modified independent with occupational therapy. He will have a repeat modified barium study today to possible advance his diet before discharge on Thursday. Medical Issues: DVT Prophylaxis - Lovenox 30mg SQ Daily Functional Improvement: pt has demonstrated improvement with functional mobility and ambulation. pt is able to ascend and descend stairs as well. pt was limited today due to abdominal discomfort. pt is able to perform much of his functional mobility without the need for physical assist; however, pt does require verbal cues. Functional Improvement Occupational Therapy: Pt can benifit with further therapy to address pt's overall weakness in pt's UB/LB strength for adl's and for functional tasks. Cont to educate and train pt on energy conservation and safety for adl tasks. cont to increase pt's static standing balance for adl's and for functional transfers. Speech Therapy Update: Pt is currently tolerate mechanical soft solids, meats chopped, and nectar thickened liquids, as well as controlled-trials of thin liquids with ICT PROJECT MANAGER only without overt s/s of aspiration. Pt would benefit from a repeat MBSS to determine if he is able to be upgraded again. Pt is a bit forgetful and requires a lot of repetition. In order to be safely d/c home pt will require close supv and caregiver assistance. His has been present for most sessions but she appears to have some cognitive issues as well. 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 Please see the Rehabilitation Signature page for all necessary signatures.
[2018-09-10] MEDS: FLEET ENEMA ADULT PR PRN (10:36)
[2018-09-10] MEDS: NA CHLORIDE 0.9% 1,000 ML IV SCH ×2 (11:37→23:14)
--- NOTE | 2018-09-10 14:05 | RAD REPORT ---
EXAM DESCRIPTION: RAD - Barium Swallow Modified - 09/10/2018 1:59 pm CLINICAL HISTORY: Dysphagia COMPARISON: Abdomen Pelvis Wo Contrast dated 09/09/2018 TECHNIQUE: The patient was given liquid, semi-solid and solid forms of barium. Lateral view fluorosc opic imaging was performed in conjunction with speech pathology service. FINDINGS: Pharyngeal residue: vallecular, mild with pudding cleared with re-swallow 1 second swallow delay chintuck and cold sour bolus were both effective Total fluoroscopy time: 3 minutes and 8 seconds
[2018-09-10] MEDS: ENOXAPARIN 30 MG/0.3 ML SQ SCH (17:21)
[2018-09-10] MEDS: ATORVASTATIN 10 MG TAB PO SCH (21:17)
[2018-09-10] MEDS: MELATONIN 3 MG TABLET PO PRN (23:14)
[2018-09-11] MEDS: BISACODYL 10 MG RECTAL SUPP PR PRN (01:04)
[2018-09-11] MEDS: ONDANSETRON 4 MG/2 ML VIAL IV PRN ×5 (01:04→21:17)
--- NOTE | 2018-09-11 02:13 | FAST ---
SHIFT START DATE/TIME: 09/10/2018 19:00 (CDT) SHIFT END DATE/TIME: 09/11/2018 07:00 (CDT) NAME KAYLEE ARRIAGA DATE OF : 1930 DATE OF ADMISSION: 09/03/2018 18:48 (CDT) PHONE: AGE: 88 N# [id number] GENDER: Male ENCOUNTER PHYSICIAN: Dr. Juan Carlos August M.D. ADMISSION DIAGNOSIS: - Medically Complex Conditions 17 - Other Medically Complex Conditions (17.9) GI Bleed/metabolic encephalopathy. EATING: Activity did not occur on this shift EATING - SCORE: 0-UNK GROOMING: Wash, rinse, and dry face Wash, rinse, and dry hands GROOMING - STEP 1: Does the patient require the assistance of a person or device, or need extra time when grooming? Yes. GROOMING - STEP 2: Does the patient require the assistance of a helper? Yes. GROOMING - STEP 3: How much assistance does the patient require from the helper? Only prior equipment preparation/set up from the helper GROOMING - SCORE: 5-SUP BATHING: Activity did not occur on this shift BATHING - SCORE: 0-UNK DRESSING - UPPER BODY: Patient is not dressing in public clothing ARTICLES SCORE Total number of steps: 0 DRESSING - UPPER BODY - SCORE: 0-UNK DRESSING - LOWER BODY: Patient is not dressing in public clothing ARTICLES SCORE Total number of steps: 0 DRESSING - LOWER BODY - SCORE: 0-UNK TOILETING: TOILETING - STEP 1: Does the patient require the assistance of a person or device, or need extra time with toileting? Yes . TOILETING - STEP 2: Does the patient require the assistance of a helper? Yes. TOILETING - STEP 3: How much assistance does the patient require from the helper? Hands-on assistance from the helper TOILETING - STEP 4: Of the 3 tasks: 1) Adjusting clothing prior to use, 2) Cleansing of perineal area, 3) Adjusting clot dal[place] after use; How many tasks does the patient perform WITHOUT assistance of the helper? Three tasks with steadying assistance from the helper TOILETING - SCORE: 4-MIN BLADDER MANAGEMENT: BLADDER MANAGEMENT - STEP 1: Does the patient control the bladder completely and intentionally without equipment or devices or med ications, and is always continent? No. BLADDER MANAGEMENT - STEP 2: Does the patient require the assistance of a helper? Yes. BLADDER MANAGEMENT - STEP 3: How much assistance does the patient require from the helper? Only set-up of equipment - such as plac ing it within reach of the patient or emptying a device - to maintain either satisfactory voiding pat tern or managing an external device, such as an absorbent pad, ileal device, or catheter BLADDER MANAGEMENT - SCORE: 5-SUP BOWEL MANAGEMENT: Activity did not occur on this shift BOWEL MANAGEMENT - SCORE: 7-IND TRANSFERS: BED, CHAIR, WHEELCHAIR: TRANSFERS: BED, CHAIR, WHEELCHAIR - STEP 1: Does the patient require assistance of a person or device, or need extra time with bed, chair, or whe elchair transfers? Yes. TRANSFERS: BED, CHAIR, WHEELCHAIR - STEP 2: Does the patient require the assistance of a helper? Yes. TRANSFERS: BED, CHAIR, WHEELCHAIR - STEP 3: How much assistance does the patient require from the helper? Lifting of the legs TRANSFERS: BED, CHAIR, WHEELCHAIR - STEP 4: How many legs does the patient require the helper to lift? both legs TRANSFERS: BED, CHAIR, WHEELCHAIR - SCORE: 3-MOD TRANSFERS: TOILET: TRANSFERS: TOILET - STEP 1: Does the patient require the assistance of a person or device, or need extra time with toilet transfe rs? Yes. TRANSFERS: TOILET - STEP 2: Does the patient require the assistance of a helper? Yes. TRANSFERS: TOILET - STEP 3: How much assistance does the patient require from the helper? Patient performs half or more of the tr ansferring tasks TRANSFERS: TOILET - STEP 4: Does the patient need only incidental help such as contact guard or steadying during toilet transfer? Yes. TRANSFERS: TOILET - SCORE: 4-MIN TRANSFERS: SHOWER: Activity did not occur on this shift TRANSFERS: SHOWER - SCORE: 0-UNK TRANSFERS: TUB: Activity did not occur on this shift TRANSFERS: TUB - SCORE: 0-UNK LOCOMOTION: WALK: Activity did not occur on this shift LOCOMOTION: WALK - SCORE: 0-UNK LOCOMOTION: WHEELCHAIR: Activity did not occur on this shift LOCOMOTION: WHEELCHAIR - SCORE: 0-UNK COMPREHENSION: COMPREHENSION: TYPE: Both COMPREHENSION - STEP 1: Does the patient require help from a person or device, or need extra time to understand complex and a bstract ideas (such as current events, finances, discharge planning, medical issues, relationships, e tc)? Yes. COMPREHENSION - STEP 2: Does the patient require help to understand questions or statements about basic needs or ideas (such as hunger, thirst, sleep, safety, daily schedule, room location, or discomfort) half or more of the t mack? No. COMPREHENSION - STEP 3: How often does the patient need help to understand directions and conversation about basic needs? 10% - 24% of the time COMPREHENSION - SCORE: 4-MIN EXPRESSION EXPRESSION: TYPE: Both EXPRESSION - STEP 1: Does the patient require help from a person or device, or need extra time expressing complex and abst ract ideas (such as current events, finances, discharge planning, medical issues, relationships, etc) ? No. EXPRESSION - STEP 2: Does the patient need extra time, require an assistive device (such as augmentive communication syste m or a communication board), OR does s/he have mild difficulty expressing complex and abstract ideas (including mild dysarthria or mild word-find problems)? Yes. EXPRESSION - SCORE: 6-ADELIA SOCIAL INTERACTION: SOCIAL INTERACTION - STEP 1: Does the patient require a helper to interact with others in social and therapeutic situations? No. SOCIAL INTERACTION - STEP 2: Does the patient need extra time in social situations, OR does s/he interact with staff, other patien ts, and family members ONLY in structured environments, OR does s/he require medication for social in teraction? Yes, patient needs extra time SOCIAL INTERACTION - SCORE: 6-ADELIA PROBLEM SOLVING: PROBLEM SOLVING - STEP 1: Does the patient need help from a person or device, or need extra time to solve complex problems such as managing a checking account or confronting interpersonal problems? Yes. PROBLEM SOLVING - STEP 2: Does the patient solve basic routine problems half or more of the time? Yes. PROBLEM SOLVING - STEP 3: How often does the patient need help to solve basic routine problems? 10%-24% of the time PROBLEM SOLVING - SCORE: 4-MIN MEMORY: MEMORY - STEP 1: Does the patient need help from a person or device, or need extra time to remember frequently encount ered people, daily routines, and executing requests? No. MEMORY - STEP 2: Does the patient have slight difficulty recognizing frequently encountered people, daily routines, or executing requests without the need for repetition or using self-initiated or environmental cues to remember? Yes. MEMORY - SCORE: 6-ADELIA
[2018-09-11] MEDS: METOPROLOL TAR 25 MG TAB PO SCH ×2 (05:21→17:15)
[2018-09-11 05:26] VITALS: BMI 25.2
[2018-09-11] MEDS: PANTOPRAZOLE 40MG TABLET PO SCH (06:53)
[2018-09-11] MEDS: ENSURE HIGH PROTEIN 237 ML CAN PO SCH ×2 (08:00→20:00)
[2018-09-11] MEDS: PROMOD 30 ML DOSE PO SCH ×2 (08:00→20:00)
[2018-09-11] MEDS: SPIRONOLACTONE 25 MG TABLET PO SCH (08:00)
[2018-09-11] MEDS: MAGNESIUM OXIDE 400 MG TAB PO SCH (08:43)
[2018-09-11] MEDS: FERROUS SULFATE 325 MG TAB PO SCH ×2 (08:43→20:28)
[2018-09-11] MEDS: FOLIC ACID 1 MG TABLET PO SCH (08:43)
[2018-09-11] MEDS: CRANBERRY FRUIT EXTRACT 200 MG CAP PO SCH ×2 (08:43→20:28)
[2018-09-11] MEDS: DOCUSATE NA 100 MG CAP PO SCH ×2 (08:43→20:28)
[2018-09-11] MEDS: TAMSULOSIN 0.4 MG SR CAP PO SCH (08:43)
[2018-09-11] MEDS: CYANOCOBALAMIN 1,000 MCG TAB PO SCH (08:43)
[2018-09-11] MEDS: FLEET ENEMA ADULT PR PRN (09:50)
--- NOTE | 2018-09-11 11:25 | FAST ---
SHIFT START DATE/TIME: 09/11/2018 07:00 (CDT) SHIFT END DATE/TIME: 09/11/2018 19:00 (CDT) NAME KAYLEE ARRIAGA DATE OF : 1930 DATE OF ADMISSION: 09/03/2018 18:48 (CDT) PHONE: AGE: 88 N# [id number] GENDER: Male ENCOUNTER PHYSICIAN: Dr. Juan Carlos August M.D. ADMISSION DIAGNOSIS: - Medically Complex Conditions 17 - Other Medically Complex Conditions (17.9) GI Bleed/metabolic encephalopathy. EATING: EATING - STEP 1: Does the patient require the assistance of a person or device, or need extra time when eating? Yes. EATING - STEP 2: Does the patient require the assistance of a helper? Yes. EATING - STEP 3: Does the patient perform half or more of the eating tasks? Yes. EATING - STEP 4: Does the patient need only supervision, cuing, coaxing OR help to apply an orthosis OR help to cut fo od, open containers, pour liquids, or butter bread? Yes. EATING - SCORE: 5-SUP GROOMING: Activity did not occur on this shift GROOMING - SCORE: 0-UNK BATHING: Activity did not occur on this shift BATHING - SCORE: 0-UNK DRESSING - UPPER BODY: Activity did not occur on this shift ARTICLES SCORE Total number of steps: 0 DRESSING - UPPER BODY - SCORE: 0-UNK DRESSING - LOWER BODY: Activity did not occur on this shift ARTICLES SCORE Total number of steps: 0 DRESSING - LOWER BODY - SCORE: 0-UNK TOILETING: TOILETING - STEP 1: Does the patient require the assistance of a person or device, or need extra time with toileting? Yes . TOILETING - STEP 2: Does the patient require the assistance of a helper? Yes. TOILETING - STEP 3: How much assistance does the patient require from the helper? Hands-on assistance from the helper TOILETING - STEP 4: Of the 3 tasks: 1) Adjusting clothing prior to use, 2) Cleansing of perineal area, 3) Adjusting clot dal[place] after use; How many tasks does the patient perform WITHOUT assistance of the helper? Two tasks TOILETING - SCORE: 3-MOD BLADDER MANAGEMENT: BLADDER MANAGEMENT - STEP 1: Does the patient control the bladder completely and intentionally without equipment or devices or med ications, and is always continent? No. BLADDER MANAGEMENT - STEP 2: Does the patient require the assistance of a helper? No, patient requires and independently uses an a ssistive device, such as a urinal, bedpan, bedside commode, catheter, absorbent pad, or collecting de vice BLADDER MANAGEMENT - SCORE: 6-ADELIA BOWEL MANAGEMENT: Activity did not occur on this shift BOWEL MANAGEMENT - SCORE: 7-IND TRANSFERS: BED, CHAIR, WHEELCHAIR: TRANSFERS: BED, CHAIR, WHEELCHAIR - STEP 1: Does the patient require assistance of a person or device, or need extra time with bed, chair, or whe elchair transfers? Yes. TRANSFERS: BED, CHAIR, WHEELCHAIR - STEP 2: Does the patient require the assistance of a helper? Yes. TRANSFERS: BED, CHAIR, WHEELCHAIR - STEP 3: How much assistance does the patient require from the helper? Steadying/guiding assistance TRANSFERS: BED, CHAIR, WHEELCHAIR - SCORE: 4-MIN TRANSFERS: TOILET: TRANSFERS: TOILET - STEP 1: Does the patient require the assistance of a person or device, or need extra time with toilet transfe rs? Yes. TRANSFERS: TOILET - STEP 2: Does the patient require the assistance of a helper? Yes. TRANSFERS: TOILET - STEP 3: How much assistance does the patient require from the helper? Patient performs half or more of the tr ansferring tasks TRANSFERS: TOILET - STEP 4: Does the patient need only incidental help such as contact guard or steadying during toilet transfer? No. Patient needs more than incidental help TRANSFERS: TOILET - SCORE: 3-MOD TRANSFERS: SHOWER: Activity did not occur on this shift TRANSFERS: SHOWER - SCORE: 0-UNK TRANSFERS: TUB: Activity did not occur on this shift TRANSFERS: TUB - SCORE: 0-UNK LOCOMOTION: WALK: Activity did not occur on this shift LOCOMOTION: WALK - SCORE: 0-UNK LOCOMOTION: WHEELCHAIR: Activity did not occur on this shift LOCOMOTION: WHEELCHAIR - SCORE: 0-UNK COMPREHENSION: COMPREHENSION: TYPE: Both COMPREHENSION - STEP 1: Does the patient require help from a person or device, or need extra time to understand complex and a bstract ideas (such as current events, finances, discharge planning, medical issues, relationships, e tc)? No. COMPREHENSION - STEP 2: Does the patient need extra time, require an assistive device (such as glasses for visual comprehensi on or a hearing aid for auditory comprehension) or does s/he have mild difficulty understanding compl ex and abstract information? Yes. COMPREHENSION - SCORE: 6-ADELIA EXPRESSION EXPRESSION: TYPE: Both EXPRESSION - STEP 1: Does the patient require help from a person or device, or need extra time expressing complex and abst ract ideas (such as current events, finances, discharge planning, medical issues, relationships, etc) ? No. EXPRESSION - STEP 2: Does the patient need extra time, require an assistive device (such as augmentive communication syste m or a communication board), OR does s/he have mild difficulty expressing complex and abstract ideas (including mild dysarthria or mild word-find problems)? Yes. EXPRESSION - SCORE: 6-ADELIA SOCIAL INTERACTION: SOCIAL INTERACTION - STEP 1: Does the patient require a helper to interact with others in social and therapeutic situations? No. SOCIAL INTERACTION - STEP 2: Does the patient need extra time in social situations, OR does s/he interact with staff, other patien ts, and family members ONLY in structured environments, OR does s/he require medication for social in teraction? Yes, patient needs extra time SOCIAL INTERACTION - SCORE: 6-ADELIA PROBLEM SOLVING: PROBLEM SOLVING - STEP 1: Does the patient need help from a person or device, or need extra time to solve complex problems such as managing a checking account or confronting interpersonal problems? No. PROBLEM SOLVING - STEP 2: Does the patient require extra time to make decisions or solve problems, OR does s/he have slight dif ficulty reading, initiating, or self-correcting in unfamiliar situations? Yes, patient needs extra ti me. PROBLEM SOLVING - SCORE: 6-ADELIA MEMORY: MEMORY - STEP 1: Does the patient need help from a person or device, or need extra time to remember frequently encount ered people, daily routines, and executing requests? No. MEMORY - STEP 2: Does the patient have slight difficulty recognizing frequently encountered people, daily routines, or executing requests without the need for repetition or using self-initiated or environmental cues to remember? Yes. MEMORY - SCORE: 6-ADELIA SIGNATURE PANEL: The following modified sections: Eating - Score, Grooming - Score, Bathing - Score, Dressing - Upper Body - Score, Dressing - Lower Body - Score, Toileting - Score, Bladder Management - Score, Bowel Man agement - Score, Transfers: Bed, Chair, Wheelchair - Score, Transfers: Toilet - Score, Transfers: Elayne wer - Score, Transfers: Tub - Score, Locomotion: Walk - Score, Locomotion: Wheelchair - Score, Compre hension - Score, Expression - Score, Social Interaction - Score, Problem Solving - Score, Memory - Sc ore were [electronically] signed by Marquise eLnnon on Sat Sep 11 2018 11:24:33 GMT-0500 (Central Daylight Time)
[2018-09-11] MEDS: NA CHLORIDE 0.9% 1,000 ML IV SCH (13:01)
[2018-09-11] MEDS: ENOXAPARIN 30 MG/0.3 ML SQ SCH (17:15)
[2018-09-11] MEDS: MELATONIN 3 MG TABLET PO PRN (20:28)
[2018-09-11] MEDS: ATORVASTATIN 10 MG TAB PO SCH (20:28)
[2018-09-12] MEDS: NA CHLORIDE 0.9% 1,000 ML IV SCH (00:41)
[2018-09-12] MEDS: ONDANSETRON 4 MG/2 ML VIAL IV PRN ×6 (00:47→20:57)
--- NOTE | 2018-09-12 01:41 | FAST ---
SHIFT START DATE/TIME: 09/11/2018 19:00 (CDT) SHIFT END DATE/TIME: 09/12/2018 07:00 (CDT) NAME KAYLEE ARRIAGA DATE OF : 1930 DATE OF ADMISSION: 09/03/2018 18:48 (CDT) PHONE: AGE: 88 SSN# [id number] GENDER: Male ENCOUNTER PHYSICIAN: Dr. Juan Carlos August M.D. ADMISSION DIAGNOSIS: - Medically Complex Conditions 17 - Other Medically Complex Conditions (17.9) GI Bleed/metabolic encephalopathy. EATING: Activity did not occur on this shift EATING - SCORE: 0-UNK GROOMING: Activity did not occur on this shift GROOMING - SCORE: 0-UNK BATHING: Activity did not occur on this shift BATHING - SCORE: 0-UNK DRESSING - UPPER BODY: Activity did not occur on this shift ARTICLES SCORE Total number of steps: 0 DRESSING - UPPER BODY - SCORE: 0-UNK DRESSING - LOWER BODY: Activity did not occur on this shift ARTICLES SCORE Total number of steps: 0 DRESSING - LOWER BODY - SCORE: 0-UNK TOILETING: TOILETING - STEP 1: Does the patient require the assistance of a person or device, or need extra time with toileting? Yes . TOILETING - STEP 2: Does the patient require the assistance of a helper? Yes. TOILETING - STEP 3: How much assistance does the patient require from the helper? Hands-on assistance from the helper TOILETING - STEP 4: Of the 3 tasks: 1) Adjusting clothing prior to use, 2) Cleansing of perineal area, 3) Adjusting clot dal[place] after use; How many tasks does the patient perform WITHOUT assistance of the helper? Two tasks TOILETING - SCORE: 3-MOD BLADDER MANAGEMENT: BLADDER MANAGEMENT - STEP 1: Does the patient control the bladder completely and intentionally without equipment or devices or med ications, and is always continent? No. BLADDER MANAGEMENT - STEP 2: Does the patient require the assistance of a helper? Yes. BLADDER MANAGEMENT - STEP 3: How much assistance does the patient require from the helper? Patient requires contact assistance fro m the helper BLADDER MANAGEMENT - STEP 4: How much contact assistance does the patient require from the helper? Patient requires moderate tyra tance, and performs 50% to 75% of bladder management tasks - [place] positions AND holds urinal or bed xiao BLADDER MANAGEMENT - SCORE: 3-MOD BLADDER MANAGEMENT - FREQUENCY OF ACCIDENTS: BLADDER MANAGEMENT(FA) - STEP 1: How many accidents has the patient had during the current shift? 0 BOWEL MANAGEMENT: Activity did not occur on this shift BOWEL MANAGEMENT - SCORE: 7-IND TRANSFERS: BED, CHAIR, WHEELCHAIR: TRANSFERS: BED, CHAIR, WHEELCHAIR - STEP 1: Does the patient require assistance of a person or device, or need extra time with bed, chair, or whe elchair transfers? Yes. TRANSFERS: BED, CHAIR, WHEELCHAIR - STEP 2: Does the patient require the assistance of a helper? Yes. TRANSFERS: BED, CHAIR, WHEELCHAIR - STEP 3: How much assistance does the patient require from the helper? Lifting of the legs TRANSFERS: BED, CHAIR, WHEELCHAIR - STEP 4: How many legs does the patient require the helper to lift? both legs TRANSFERS: BED, CHAIR, WHEELCHAIR - SCORE: 3-MOD TRANSFERS: TOILET: TRANSFERS: TOILET - STEP 1: Does the patient require the assistance of a person or device, or need extra time with toilet transfe rs? Yes. TRANSFERS: TOILET - STEP 2: Does the patient require the assistance of a helper? Yes. TRANSFERS: TOILET - STEP 3: How much assistance does the patient require from the helper? Patient performs half or more of the tr ansferring tasks TRANSFERS: TOILET - STEP 4: Does the patient need only incidental help such as contact guard or steadying during toilet transfer? No. Patient needs more than incidental help TRANSFERS: TOILET - SCORE: 3-MOD TRANSFERS: SHOWER: Activity did not occur on this shift TRANSFERS: SHOWER - SCORE: 0-UNK TRANSFERS: TUB: Activity did not occur on this shift TRANSFERS: TUB - SCORE: 0-UNK LOCOMOTION: WALK: Activity did not occur on this shift LOCOMOTION: WALK - SCORE: 0-UNK LOCOMOTION: WHEELCHAIR: Activity did not occur on this shift LOCOMOTION: WHEELCHAIR - SCORE: 0-UNK COMPREHENSION: COMPREHENSION - SCORE: 0-UNK EXPRESSION EXPRESSION - SCORE: 0-UNK SOCIAL INTERACTION: SOCIAL INTERACTION - SCORE: 0-UNK PROBLEM SOLVING: PROBLEM SOLVING - SCORE: 0-UNK MEMORY: MEMORY - SCORE: 0-UNK SIGNATURE PANEL: The following modified sections: Eating - Score, Grooming - Score, Bathing - Score, Dressing - Upper Body - Score, Dressing - Lower Body - Score, Toileting - Score, Bladder Management - Score, Bowel Man agement - Score, Transfers: Bed, Chair, Wheelchair - Score, Transfers: Toilet - Score, Transfers: Elayne wer - Score, Transfers: Tub - Score, Locomotion: Walk - Score, Locomotion: Wheelchair - Score, Compre hension - Score, Expression - Score, Social Interaction - Score, Problem Solving - Score, Memory - Sc ore were [electronically] signed by Kris Vigil RN on ThuSep 12 2018 01:40:26 T-0500 ([place] Time)
[2018-09-12] MEDS: METOPROLOL TAR 25 MG TAB PO SCH ×2 (05:18→17:11)
[2018-09-12 06:12] LABS: Potassium 4.1 mmol/L (3.5-5.1)
[2018-09-12] MEDS: PANTOPRAZOLE 40MG TABLET PO SCH (07:17)
[2018-09-12] MEDS: PROMOD 30 ML DOSE PO SCH ×2 (08:00→20:00)
[2018-09-12] MEDS: ENSURE HIGH PROTEIN 237 ML CAN PO SCH ×2 (08:00→20:00)
[2018-09-12] MEDS: SPIRONOLACTONE 25 MG TABLET PO SCH (08:00)
[2018-09-12] MEDS: MAGNESIUM OXIDE 400 MG TAB PO SCH (08:14)
[2018-09-12 08:15] LABS: Absolute Lymphocytes (CBC) 0.5 K/uL (0.7-4.9); Basophils % 0.3 % (0-1.3); Eosinophils % 0.4 % (0-4.4); Hematocrit 28.3 % (39.6-49.0); Lymphocytes % 8.3 % (15.3-44.8); MPV 8.7 fL (7.6-11.3); Monocytes % 12.9 % (3.3-12.3); RBC Red Blood Cell Count 2.83 M/uL (4.33-5.43)
[2018-09-12] MEDS: CYANOCOBALAMIN 1,000 MCG TAB PO SCH (08:15)
[2018-09-12] MEDS: DOCUSATE NA 100 MG CAP PO SCH ×2 (08:15→19:49)
[2018-09-12] MEDS: CRANBERRY FRUIT EXTRACT 200 MG CAP PO SCH ×2 (08:15→19:49)
[2018-09-12] MEDS: TAMSULOSIN 0.4 MG SR CAP PO SCH (08:15)
[2018-09-12] MEDS: FOLIC ACID 1 MG TABLET PO SCH (08:16)
[2018-09-12] MEDS: FERROUS SULFATE 325 MG TAB PO SCH ×2 (08:16→19:49)
[2018-09-12 08:49] VITALS: O2SAT 93
[2018-09-12] MEDS: BISACODYL 10 MG RECTAL SUPP PR PRN (09:51)
[2018-09-12] MEDS ORDERED: ACETAMINOPHEN 325 MG TABLET PO PRN (10:00)
--- NOTE | 2018-09-12 10:11 | FAST ---
SHIFT START DATE/TIME: 09/12/2018 07:00 (CDT) SHIFT END DATE/TIME: 09/12/2018 19:00 (CDT) NAME KAYLEE ARRIAGA DATE OF : 1930 DATE OF ADMISSION: 09/03/2018 18:48 (CDT) PHONE: AGE: 88 SSN# [id number] GENDER: Male ENCOUNTER PHYSICIAN: Dr. Juan Carlos August M.D. ADMISSION DIAGNOSIS: - Medically Complex Conditions 17 - Other Medically Complex Conditions (17.9) GI Bleed/metabolic encephalopathy. EATING: Patient requires I/V fluids for hydration and/or caloric supplementation EATING - SCORE: 1-DEP EATING - COMMENTS: Vomiting, clear liquids GROOMING: Activity did not occur on this shift GROOMING - SCORE: 0-UNK BATHING: Activity did not occur on this shift BATHING - SCORE: 0-UNK DRESSING - UPPER BODY: Activity did not occur on this shift ARTICLES SCORE Total number of steps: 0 DRESSING - UPPER BODY - SCORE: 0-UNK DRESSING - LOWER BODY: Activity did not occur on this shift ARTICLES SCORE Total number of steps: 0 DRESSING - LOWER BODY - SCORE: 0-UNK TOILETING: TOILETING - STEP 1: Does the patient require the assistance of a person or device, or need extra time with toileting? Yes . TOILETING - STEP 2: Does the patient require the assistance of a helper? Yes. TOILETING - STEP 3: How much assistance does the patient require from the helper? Hands-on assistance from the helper TOILETING - STEP 4: Of the 3 tasks: 1) Adjusting clothing prior to use, 2) Cleansing of perineal area, 3) Adjusting clot dal[place] after use; How many tasks does the patient perform WITHOUT assistance of the helper? Two tasks TOILETING - SCORE: 3-MOD BLADDER MANAGEMENT: BLADDER MANAGEMENT - STEP 1: Does the patient control the bladder completely and intentionally without equipment or devices or med ications, and is always continent? No. BLADDER MANAGEMENT - STEP 2: Does the patient require the assistance of a helper? No, patient requires and independently uses an a ssistive device, such as a urinal, bedpan, bedside commode, catheter, absorbent pad, or collecting de vice BLADDER MANAGEMENT - SCORE: 6-ADELIA BOWEL MANAGEMENT: Activity did not occur on this shift BOWEL MANAGEMENT - SCORE: 7-IND TRANSFERS: BED, CHAIR, WHEELCHAIR: TRANSFERS: BED, CHAIR, WHEELCHAIR - STEP 1: Does the patient require assistance of a person or device, or need extra time with bed, chair, or whe elchair transfers? Yes. TRANSFERS: BED, CHAIR, WHEELCHAIR - STEP 2: Does the patient require the assistance of a helper? Yes. TRANSFERS: BED, CHAIR, WHEELCHAIR - STEP 3: How much assistance does the patient require from the helper? Steadying/guiding assistance TRANSFERS: BED, CHAIR, WHEELCHAIR - SCORE: 4-MIN TRANSFERS: TOILET: TRANSFERS: TOILET - STEP 1: Does the patient require the assistance of a person or device, or need extra time with toilet transfe rs? Yes. TRANSFERS: TOILET - STEP 2: Does the patient require the assistance of a helper? Yes. TRANSFERS: TOILET - STEP 3: How much assistance does the patient require from the helper? Patient performs half or more of the tr ansferring tasks TRANSFERS: TOILET - STEP 4: Does the patient need only incidental help such as contact guard or steadying during toilet transfer? No. Patient needs more than incidental help TRANSFERS: TOILET - SCORE: 3-MOD TRANSFERS: SHOWER: Activity did not occur on this shift TRANSFERS: SHOWER - SCORE: 0-UNK TRANSFERS: TUB: Activity did not occur on this shift TRANSFERS: TUB - SCORE: 0-UNK LOCOMOTION: WALK: Activity did not occur on this shift LOCOMOTION: WALK - SCORE: 0-UNK LOCOMOTION: WHEELCHAIR: Activity did not occur on this shift LOCOMOTION: WHEELCHAIR - SCORE: 0-UNK COMPREHENSION: COMPREHENSION: TYPE: Both COMPREHENSION - STEP 1: Does the patient require help from a person or device, or need extra time to understand complex and a bstract ideas (such as current events, finances, discharge planning, medical issues, relationships, e tc)? No. COMPREHENSION - STEP 2: Does the patient need extra time, require an assistive device (such as glasses for visual comprehensi on or a hearing aid for auditory comprehension) or does s/he have mild difficulty understanding compl ex and abstract information? Yes. COMPREHENSION - SCORE: 6-ADELIA EXPRESSION EXPRESSION: TYPE: Both EXPRESSION - STEP 1: Does the patient require help from a person or device, or need extra time expressing complex and abst ract ideas (such as current events, finances, discharge planning, medical issues, relationships, etc) ? No. EXPRESSION - STEP 2: Does the patient need extra time, require an assistive device (such as augmentive communication syste m or a communication board), OR does s/he have mild difficulty expressing complex and abstract ideas (including mild dysarthria or mild word-find problems)? Yes. EXPRESSION - SCORE: 6-ADELIA SOCIAL INTERACTION: SOCIAL INTERACTION - STEP 1: Does the patient require a helper to interact with others in social and therapeutic situations? No. SOCIAL INTERACTION - STEP 2: Does the patient need extra time in social situations, OR does s/he interact with staff, other patien ts, and family members ONLY in structured environments, OR does s/he require medication for social in teraction? No. SOCIAL INTERACTION - SCORE: 7-IND PROBLEM SOLVING: PROBLEM SOLVING - STEP 1: Does the patient need help from a person or device, or need extra time to solve complex problems such as managing a checking account or confronting interpersonal problems? Yes. PROBLEM SOLVING - STEP 2: Does the patient solve basic routine problems half or more of the time? Yes. PROBLEM SOLVING - STEP 3: How often does the patient need help to solve basic routine problems? Less than 10% of the time PROBLEM SOLVING - SCORE: 5-SUP MEMORY: MEMORY - STEP 1: Does the patient need help from a person or device, or need extra time to remember frequently encount ered people, daily routines, and executing requests? Yes. MEMORY - STEP 2: How often does the patient need help to remember frequently encountered people, daily routines, and e xecuting requests? Less than 10% of the time MEMORY - SCORE: 5-SUP SIGNATURE PANEL: The following modified sections: Eating - Score, Grooming - Score, Eating - Comments:, Bathing - Scor e, Dressing - Upper Body - Score, Dressing - Lower Body - Score, Toileting - Score, Bladder Managemen t - Score, Bowel Management - Score, Transfers: Bed, Chair, Wheelchair - Score, Transfers: Toilet - S core, Transfers: Shower - Score, Transfers: Tub - Score, Locomotion: Walk - Score, Locomotion: Wheelc hair - Score, Comprehension - Score, Expression - Score, Social Interaction - Score, Problem Solving - Score, Memory - Score were [electronically] signed by Marquise Lennon on ThuSep 12 2018 10:11:17 GMT-05 00 (Central Daylight Time)
[2018-09-12] MEDS ORDERED: D5 0.45 NS 500 ML IV SCH (11:00)
[2018-09-12] MEDS: D5 0.45 NS 1,000 ML IV SCH ×2 (11:05→19:10)
[2018-09-12] MEDS: FLEET ENEMA ADULT PR PRN (12:09)
[2018-09-12] MEDS: ENOXAPARIN 30 MG/0.3 ML SQ SCH (17:10)
[2018-09-12] MEDS: MELATONIN 3 MG TABLET PO PRN (19:49)
[2018-09-12] MEDS: ATORVASTATIN 10 MG TAB PO SCH (20:27)
[2018-09-13] MEDS: ONDANSETRON 4 MG/2 ML VIAL IV PRN (02:01)
--- NOTE | 2018-09-13 02:13 | FAST ---
SHIFT START DATE/TIME: 09/12/2018 19:00 (CDT) SHIFT END DATE/TIME: 09/13/2018 07:00 (CDT) NAME KAYLEE ARRIAGA DATE OF : 1930 DATE OF ADMISSION: 09/03/2018 18:48 (CDT) PHONE: AGE: 88 N# [id number] GENDER: Male ENCOUNTER PHYSICIAN: Dr. Juan Carlos August M.D. ADMISSION DIAGNOSIS: - Medically Complex Conditions 17 - Other Medically Complex Conditions (17.9) GI Bleed/metabolic encephalopathy. EATING: Activity did not occur on this shift EATING - SCORE: 0-UNK GROOMING: Activity did not occur on this shift GROOMING - SCORE: 0-UNK BATHING: Activity did not occur on this shift BATHING - SCORE: 0-UNK DRESSING - UPPER BODY: Patient is not dressing in public clothing ARTICLES SCORE Total number of steps: 0 DRESSING - UPPER BODY - SCORE: 0-UNK DRESSING - LOWER BODY: Patient is not dressing in public clothing ARTICLES SCORE Total number of steps: 0 DRESSING - LOWER BODY - SCORE: 0-UNK TOILETING: TOILETING - STEP 1: Does the patient require the assistance of a person or device, or need extra time with toileting? Yes . TOILETING - STEP 2: Does the patient require the assistance of a helper? Yes. TOILETING - STEP 3: How much assistance does the patient require from the helper? Hands-on assistance from the helper TOILETING - STEP 4: Of the 3 tasks: 1) Adjusting clothing prior to use, 2) Cleansing of perineal area, 3) Adjusting clot dal[place] after use; How many tasks does the patient perform WITHOUT assistance of the helper? No tasks; lynda cantu performs all three tasks TOILETING - SCORE: 1-DEP BLADDER MANAGEMENT: BLADDER MANAGEMENT - STEP 1: Does the patient control the bladder completely and intentionally without equipment or devices or med ications, and is always continent? No. BLADDER MANAGEMENT - STEP 2: Does the patient require the assistance of a helper? Yes. BLADDER MANAGEMENT - STEP 3: How much assistance does the patient require from the helper? Only set-up of equipment - such as plac ing it within reach of the patient or emptying a device - to maintain either satisfactory voiding pat tern or managing an external device, such as an absorbent pad, ileal device, or catheter BLADDER MANAGEMENT - SCORE: 5-SUP BOWEL MANAGEMENT: Activity did not occur on this shift BOWEL MANAGEMENT - SCORE: 7-IND TRANSFERS: BED, CHAIR, WHEELCHAIR: Activity did not occur on this shift TRANSFERS: BED, CHAIR, WHEELCHAIR - SCORE: 0-UNK TRANSFERS: TOILET: Activity did not occur on this shift TRANSFERS: TOILET - SCORE: 0-UNK TRANSFERS: SHOWER: Activity did not occur on this shift TRANSFERS: SHOWER - SCORE: 0-UNK TRANSFERS: TUB: Activity did not occur on this shift TRANSFERS: TUB - SCORE: 0-UNK LOCOMOTION: WALK: Activity did not occur on this shift LOCOMOTION: WALK - SCORE: 0-UNK LOCOMOTION: WHEELCHAIR: Activity did not occur on this shift LOCOMOTION: WHEELCHAIR - SCORE: 0-UNK COMPREHENSION: COMPREHENSION: TYPE: Both COMPREHENSION - STEP 1: Does the patient require help from a person or device, or need extra time to understand complex and a bstract ideas (such as current events, finances, discharge planning, medical issues, relationships, e tc)? Yes. COMPREHENSION - STEP 2: Does the patient require help to understand questions or statements about basic needs or ideas (such as hunger, thirst, sleep, safety, daily schedule, room location, or discomfort) half or more of the t mack? No. COMPREHENSION - STEP 3: How often does the patient need help to understand directions and conversation about basic needs? 10% - 24% of the time COMPREHENSION - SCORE: 4-MIN EXPRESSION EXPRESSION: TYPE: Both EXPRESSION - STEP 1: Does the patient require help from a person or device, or need extra time expressing complex and abst ract ideas (such as current events, finances, discharge planning, medical issues, relationships, etc) ? No. EXPRESSION - STEP 2: Does the patient need extra time, require an assistive device (such as augmentive communication syste m or a communication board), OR does s/he have mild difficulty expressing complex and abstract ideas (including mild dysarthria or mild word-find problems)? Yes. EXPRESSION - SCORE: 6-ADELIA SOCIAL INTERACTION: SOCIAL INTERACTION - STEP 1: Does the patient require a helper to interact with others in social and therapeutic situations? No. SOCIAL INTERACTION - STEP 2: Does the patient need extra time in social situations, OR does s/he interact with staff, other patien ts, and family members ONLY in structured environments, OR does s/he require medication for social in teraction? Yes, patient needs extra time SOCIAL INTERACTION - SCORE: 6-ADELIA PROBLEM SOLVING: PROBLEM SOLVING - STEP 1: Does the patient need help from a person or device, or need extra time to solve complex problems such as managing a checking account or confronting interpersonal problems? Yes. PROBLEM SOLVING - STEP 2: Does the patient solve basic routine problems half or more of the time? Yes. PROBLEM SOLVING - STEP 3: How often does the patient need help to solve basic routine problems? 25%-49% of the time PROBLEM SOLVING - SCORE: 3-MOD MEMORY: MEMORY - STEP 1: Does the patient need help from a person or device, or need extra time to remember frequently encount ered people, daily routines, and executing requests? Yes. MEMORY - STEP 2: How often does the patient need help to remember frequently encountered people, daily routines, and e xecuting requests? 25% - 49% of the time MEMORY - SCORE: 3-MOD SIGNATURE PANEL: The following modified sections: Eating - Score, Grooming - Score, Dressing - Upper Body - Score, Magdiel ssing - Lower Body - Score, Toileting - Score, Bladder Management - Score, Bowel Management - Score, Transfers: Bed, Chair, Wheelchair - Score, Transfers: Toilet - Score, Transfers: Shower - Score, Lamb sfers: Tub - Score, Locomotion: Walk - Score, Locomotion: Wheelchair - Score, Comprehension - Score, Expression - Score, Social Interaction - Score, Problem Solving - Score, Memory - Score were [electro nically] signed by Wendi Valiente CNA on ThuSep 13 2018 02:12:00 T-0500 (Central Daylight Time)
[2018-09-13 02:38] VITALS: TEMP 99.1
[2018-09-13] MEDS: D5 0.45 NS 1,000 ML IV SCH (04:59)
[2018-09-13] MEDS: METOPROLOL TAR 25 MG TAB PO SCH (04:59)
[2018-09-13] MEDS ORDERED: SODIUM CHLORIDE 0.9% 10ML INJ IV PRN (06:21)
[2018-09-13 06:37] LABS: Absolute Lymphocytes (CBC) 0.4 K/uL (0.7-4.9); Basophils % 0.2 % (0-1.3); Eosinophils % 1.9 % (0-4.4); Hematocrit 27.6 % (39.6-49.0); Lymphocytes % 11.8 % (15.3-44.8); MPV 8.5 fL (7.6-11.3); Monocytes % 16.9 % (3.3-12.3); RBC Red Blood Cell Count 2.78 M/uL (4.33-5.43)
[2018-09-13 06:45] LABS: Potassium 3.9 mmol/L (3.5-5.1)
[2018-09-13] MEDS ORDERED: Levofloxacin500mg IV 500 MG/100 ML BAG IV SCH (07:00)
[2018-09-13] MEDS: ENSURE HIGH PROTEIN 237 ML CAN PO SCH (08:00)
[2018-09-13] MEDS: CRANBERRY FRUIT EXTRACT 200 MG CAP PO SCH (08:00)
[2018-09-13] MEDS: FERROUS SULFATE 325 MG TAB PO SCH (08:00)
[2018-09-13] MEDS: MAGNESIUM OXIDE 400 MG TAB PO SCH (08:00)
[2018-09-13] MEDS ORDERED: CEFEPIME 2 GM VIAL IV SCH (08:00)
[2018-09-13] MEDS: DOCUSATE NA 100 MG CAP PO SCH (08:00)
[2018-09-13] MEDS: PROMOD 30 ML DOSE PO SCH (08:00)
[2018-09-13] MEDS: CYANOCOBALAMIN 1,000 MCG TAB PO SCH (08:00)
[2018-09-13] MEDS: TAMSULOSIN 0.4 MG SR CAP PO SCH (08:00)
[2018-09-13] MEDS ORDERED: CEFEPIME/SWI 2gm 2 GM/20 ML SYR IV ONE (08:00)
[2018-09-13] MEDS ORDERED: PANTOPRAZOLE 40 MG INJ IVP SCH ×2 (08:00)
[2018-09-13] MEDS: FOLIC ACID 1 MG TABLET PO SCH (08:00)
[2018-09-13] MEDS: SPIRONOLACTONE 25 MG TABLET PO SCH (08:00)
--- NOTE | 2018-09-13 08:18 | RAD REPORT ---
EXAM DESCRIPTION: RAD - Abdomen Acute Series - 09/13/2018 7:58 am CLINICAL HISTORY: ABD DISTENTION, VOMITTING COMPARISON: Abdomen 1 View (KUB) dated 09/09/2018; Chest Pa And Lat (2 Views) dated 09/04/2018; Chest S sundeep View dated 08/22/2018; Chest Single View dated 03/01/2018; Abdomen Pelvis Wo Contrast dated 12/2018; Barium Swallow Modified dated 09/10/2018 FINDINGS: Mild interstitial pulmonary edema suspected. The heart is quite prominent in size with nicole rnotomy wires present. No subdiaphragmatic free air seen. The stomach appears distended with air. A b owel obstruction not ice identified. 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
[2018-09-13 10:32] LABS: Hematocrit 28.9 % (39.6-49.0)
[2018-09-13 11:47] VITALS: BP 85/53
[2018-09-13 12:30] LABS: Blood Morphology Comment NOT SEEN (NOT SEEN); Platelet Estimate DECR
[2018-09-14] MEDS ORDERED: CEFEPIME/SWI 1gm 10 ML IV SCH (08:00)
== END 2018-09-13 10:23 | disposition short-term general hospital (02) | DRG 377 ==
LOC: 5TH 17:43
PROVIDERS: ADMIT Internal Medicine; ATTEND Internal Medicine
DX: K92.2 Gastrointestinal hemorrhage, unspecified (principal); G93.41 Metabolic encephalopathy; R53.81 Other malaise; I48.91 Unspecified atrial fibrillation; E11.9 Type 2 diabetes mellitus without complications; N40.0 Benign prostatic hyperplasia without lower urinary tract symptoms; I25.10 Atherosclerotic heart disease of native coronary artery without angina pectoris; K74.60 Unspecified cirrhosis of liver; D50.0 Iron deficiency anemia secondary to blood loss (chronic); I35.0 Nonrheumatic aortic (valve) stenosis; K57.90 Diverticulosis of intestine, part unspecified, without perforation or abscess without bleeding
CPT/HCPCS: 36415; 71046; 74018; 74022; 74176; 74230; 80048; 80076; 81001; 82040; 82274; 83605; 83735; 84134; 85014; 85018; 85025; 87040; 87077; 87086; 87088; 87186; 92508; 92526; 92611; 97110; 97112; 97116; 97150; 97162; 97167; 97530; C9113; J0692; J1650; J2405; J7030

== ENCOUNTER 2018-09-13 10:31 | Inpatient (IN) | payer MEDICARE, BC ==
[2018-09-13] MEDS ORDERED: ONDANSETRON 4 MG/2 ML VIAL IV PRN (10:44)
--- OUTSIDE RECORDS SUMMARY | 2018-09-13 10:49 | XMS REPORT ---
:1930 [facility] [address] [place] [address] Care Team Providers Name Role Phone CHARANJIT [...] (BEAKER) (test 127 mg/dL 70-110 TESTED AT [address] xaau=2048) [facility] [address] POCT-GLUCOSE [id number] 08:51:00 Test Item Value Reference Range Comments POC-GLUCOSE METER (BEAKER) 104 mg/dL 70-110 TESTED AT [address] (test fldg=0148) [facility] [address] BASIC METABOLIC [id number] 07:00:00 Test Item Value Reference Range Comments SODIUM (BEAKER) (test 135 meq/L 136-145 heow=456) POTASSIUM (BEAKER) (test 4.2 meq/L 3.5-5.1 lqxi=378) CHLORIDE (BEAKER) (test 107 meq/L 98-107 emaj=246) CO2 (BEAKER) (test 22 meq/L 22-29 ufaw=562) BLOOD UREA NITROGEN 23 mg/dL 7-21 (BEAKER) (test rxkc=055) CREATININE (BEAKER) (test 1.05 mg/dL 0.57-1.25 occu=554) GLUCOSE RANDOM (BEAKER) 101 mg/dL 70-105 (test arjs=496) CALCIUM (BEAKER) (test 8.3 mg/dL 8.4-10.2 icdf=986) EGFR (BEAKER) (test 67 mL/min/1.73 sq m ESTIMATED GFR IS NOT xwqa=2840) ACCURATE CREATININE CLEARANCE IN PREDICTING GLOMERULAR FILTRATION RATE. ESTIMATED GFR IS NOT APPLICABLE FOR DIALYSIS PATIENTS. Specimen slightly ictericCBC (HEMOGRAM ONLY)2018-09-03 06:12:00 Test Item Value Reference Range Comments WHITE BLOOD CELL COUNT (BEAKER) (test qboo=861) 4.2 K/ L 3.5-10.5 RED BLOOD CELL COUNT (BEAKER) (test huai=563) 2.54 M/ L 4.63-6.08 HEMOGLOBIN (BEAKER) (test plwg=844) 8.4 GM/DL 13.7-17.5 HEMATOCRIT (BEAKER) (test cvrf=323) 26.0 % 40.1-51.0 MEAN CORPUSCULAR VOLUME (BEAKER) (test uirh=141) 102.4 fL 79.0-92.2 MEAN CORPUSCULAR HEMOGLOBIN (BEAKER) (test 33.1 pg 25.7-32.2 ejvj=485) MEAN CORPUSCULAR HEMOGLOBIN CONC (BEAKER) (test 32.3 GM/DL 32.3-36.5 agch=537) RED CELL DISTRIBUTION WIDTH (BEAKER) (test 16.6 % 11.6-14.4 yhfo=457) PLATELET COUNT (BEAKER) (test rtrn=015) 137 K/CU MM 150-450 MEAN PLATELET VOLUME (BEAKER) (test xhvb=526) 10.6 fL 9.4-12.4 NUCLEATED RED BLOOD CELLS (BEAKER) (test 0 /100 WBC 0-0 hwhh=809) POCT-GLUCOSE [id number] 21:00:00 Test Item Value Reference Range Comments POC-GLUCOSE METER (BEAKER) 133 mg/dL 70-110 TESTED AT [address] (test ifsv=9819) [facility] [address] POCT-GLUCOSE [id number] 16:55:00 Test Item Value Reference Range Comments POC-GLUCOSE METER (BEAKER) 148 mg/dL 70-110 TESTED AT [address] (test tliq=6199) [facility] [address] POCT-GLUCOSE [id number] 13:18:00 Test Item Value Reference Range Comments POC-GLUCOSE METER (BEAKER) 136 mg/dL 70-[address] [facility] [address] [facility] (test sped=5624) [facility] [address] POCT-GLUCOSE [id number] 08:34:00 Test Item Value Reference Range Comments POC-GLUCOSE METER (BEAKER) 107 mg/dL 70-[address] [facility] [address] [facility] (test dyxu=1311) [facility] [address] BASIC METABOLIC [id number] 07:18:00 Test Item Value Reference Range Comments SODIUM (BEAKER) (test 134 meq/L 136-145 gwgo=732) POTASSIUM (BEAKER) (test 4.1 meq/L 3.5-5.1 unll=570) CHLORIDE (BEAKER) (test 105 meq/L 98-107 dvfa=249) CO2 (BEAKER) (test 24 meq/L 22-29 monv=450) BLOOD UREA NITROGEN 31 mg/dL 7-21 (BEAKER) (test apst=768) CREATININE (BEAKER) (test 1.16 mg/dL 0.57-1.25 igxl=724) GLUCOSE RANDOM (BEAKER) 91 mg/dL 70-105 (test pwip=215) CALCIUM (BEAKER) (test 8.4 mg/dL 8.4-10.2 thzc=258) EGFR (BEAKER) (test 60 mL/min/1.73 sq m ESTIMATED GFR IS NOT rfka=0009) ACCURATE CREATININE CLEARANCE IN PREDICTING GLOMERULAR FILTRATION RATE. ESTIMATED GFR IS NOT APPLICABLE FOR DIALYSIS PATIENTS. Specimen slightly ictericCBC W/PLT COUNT & AUTO [id number] 06:32 :00 Test Item Value Reference Range Comments WHITE BLOOD CELL COUNT (BEAKER) (test seze=028) 4.4 K/ L 3.5-10.5 RED BLOOD CELL COUNT (BEAKER) (test qhph=664) 2.43 M/ L 4.63-6.08 HEMOGLOBIN (BEAKER) (test zaxf=612) 7.9 GM/DL 13.7-17.5 HEMATOCRIT (BEAKER) (test zzmi=043) 25.5 % 40.1-51.0 MEAN CORPUSCULAR VOLUME (BEAKER) (test gsyl=571) 104.9 fL 79.0-92.2 MEAN CORPUSCULAR HEMOGLOBIN (BEAKER) (test 32.5 pg 25.7-32.2 xhww=477) MEAN CORPUSCULAR HEMOGLOBIN CONC (BEAKER) (test 31.0 GM/DL 32.3-36.5 fxwj=050) RED CELL DISTRIBUTION WIDTH (BEAKER) (test 16.1 % 11.6-14.4 bmyu=385) PLATELET COUNT (BEAKER) (test eypw=529) 136 K/CU MM 150-450 MEAN PLATELET VOLUME (BEAKER) (test wawb=202) 10.5 fL 9.4-12.4 NUCLEATED RED BLOOD CELLS (BEAKER) (test 0 /100 WBC 0-0 clfb=390) NEUTROPHILS RELATIVE PERCENT (BEAKER) (test 69 % urox=431) LYMPHOCYTES RELATIVE PERCENT (BEAKER) (test 13 % nwpc=230) MONOCYTES RELATIVE PERCENT (BEAKER) (test 11 % rpba=037) EOSINOPHILS RELATIVE PERCENT (BEAKER) (test 6 % baty=164) BASOPHILS RELATIVE PERCENT (BEAKER) (test 1 % ario=202) NEUTROPHILS ABSOLUTE COUNT (BEAKER) (test 2.99 K/ L 1.78-5.38 egig=862) LYMPHOCYTES ABSOLUTE COUNT (BEAKER) (test 0.56 K/ L 1.32-3.57 ttbn=402) MONOCYTES ABSOLUTE COUNT (BEAKER) (test 0.49 K/ L 0.30-0.82 asow=042) EOSINOPHILS ABSOLUTE COUNT (BEAKER) (test 0.28 K/ L 0.04-0.54 ktwg=765) BASOPHILS ABSOLUTE COUNT (BEAKER) (test 0.02 K/ L 0.01-0.08 colg=246) IMMATURE GRANULOCYTES-RELATIVE PERCENT (BEAKER) 1 % 0-1 (test nuyn=3156) POCT-GLUCOSE [id number] 21:22:00 Test Item Value Reference Range Comments POC-GLUCOSE METER (BEAKER) 190 mg/dL 70-110 TESTED AT [address] (test juhf=0368) [facility] [address] POCT-GLUCOSE [id number] 17:49:00 Test Item Value Reference Range Comments POC-GLUCOSE METER (BEAKER) 112 mg/dL 70-110 TESTED AT [address] (test wojq=5003) [facility] [address] POCT-GLUCOSE [id number] 13:14:00 Test Item Value Reference Range Comments POC-GLUCOSE METER (BEAKER) 137 mg/dL 70-[address] [facility] [address] [facility] (test xrlp=9148) [facility] [address] POCT-GLUCOSE [id number] 07:55:00 Test Item Value Reference Range Comments POC-GLUCOSE METER (BEAKER) 102 mg/dL 70-[address] [facility] [address] [facility] (test ciik=1796) [facility] [address] CBC W/PLT COUNT & AUTO [id number] 06:09:00 Test Item Value Reference Range Comments WHITE BLOOD CELL COUNT (BEAKER) (test nuvj=044) 5.2 K/ L 3.5-10.5 RED BLOOD CELL COUNT (BEAKER) (test kqsu=650) 2.48 M/ L 4.63-6.08 HEMOGLOBIN (BEAKER) (test anui=833) 8.2 GM/DL 13.7-17.5 HEMATOCRIT (BEAKER) (test xvwb=939) 25.4 % 40.1-51.0 MEAN CORPUSCULAR VOLUME (BEAKER) (test vugd=219) 102.4 fL 79.0-92.2 MEAN CORPUSCULAR HEMOGLOBIN (BEAKER) (test 33.1 pg 25.7-32.2 prfd=732) MEAN CORPUSCULAR HEMOGLOBIN CONC (BEAKER) (test 32.3 GM/DL 32.3-36.5 ntmo=063) RED CELL DISTRIBUTION WIDTH (BEAKER) (test 16.8 % 11.6-14.4 jhlq=773) PLATELET COUNT (BEAKER) (test kzhx=973) 136 K/CU MM 150-450 MEAN PLATELET VOLUME (BEAKER) (test sjcf=281) 9.9 fL 9.4-12.4 NUCLEATED RED BLOOD CELLS (BEAKER) (test 0 /100 WBC 0-0 snxc=710) NEUTROPHILS RELATIVE PERCENT (BEAKER) (test 68 % ujxk=370) LYMPHOCYTES RELATIVE PERCENT (BEAKER) (test 15 % phoj=289) MONOCYTES RELATIVE PERCENT (BEAKER) (test 10 % dykh=465) EOSINOPHILS RELATIVE PERCENT (BEAKER) (test 6 % pibx=555) BASOPHILS RELATIVE PERCENT (BEAKER) (test 0 % egsx=631) NEUTROPHILS ABSOLUTE COUNT (BEAKER) (test 3.52 K/ L 1.78-5.38 gfjt=518) LYMPHOCYTES ABSOLUTE COUNT (BEAKER) (test 0.76 K/ L 1.32-3.57 ttcu=960) MONOCYTES ABSOLUTE COUNT (BEAKER) (test 0.53 K/ L 0.30-0.82 dsjt=156) EOSINOPHILS ABSOLUTE COUNT (BEAKER) (test 0.33 K/ L 0.04-0.54 wxwh=316) BASOPHILS ABSOLUTE COUNT (BEAKER) (test 0.02 K/ L 0.01-0.08 xutz=398) IMMATURE GRANULOCYTES-RELATIVE PERCENT (BEAKER) 1 % 0-1 (test hkvy=7816) BASIC METABOLIC [id number] 05:59:00 Test Item Value Reference Range Comments SODIUM (BEAKER) (test 135 meq/L 136-145 udjb=340) POTASSIUM (BEAKER) (test 4.6 meq/L 3.5-5.1 ocaf=044) CHLORIDE (BEAKER) (test 104 meq/L 98-107 lhas=586) CO2 (BEAKER) (test 24 meq/L 22-29 mazo=638) BLOOD UREA NITROGEN 35 mg/dL 7-21 (BEAKER) (test afpc=147) CREATININE (BEAKER) (test 1.22 mg/dL 0.57-1.25 pthy=987) GLUCOSE RANDOM (BEAKER) 99 mg/dL 70-105 (test kczt=252) CALCIUM (BEAKER) (test 8.5 mg/dL 8.4-10.2 fwkc=455) EGFR (BEAKER) (test 56 mL/min/1.73 sq m ESTIMATED GFR IS NOT hfzf=5664) ACCURATE CREATININE CLEARANCE IN PREDICTING GLOMERULAR FILTRATION RATE. ESTIMATED GFR IS NOT APPLICABLE FOR DIALYSIS PATIENTS. Specimen slightly ictericPOCT-GLUCOSE [id number] 22:01:00 Test Item Value Reference Range Comments POC-GLUCOSE METER (BEAKER) 136 mg/dL 70-110 TESTED AT [address] (test koni=5441) [facility] [address] FL, ESOPH, SWALLOW FUNCTION, WITH CINE OR [id number] 17:39:00Reason for exam:->DysphagiaFINAL REPORT INDICATION: Dysphagia. TECHNIQUE: [...] Verified Date/Time : 08/31/2018 17:39:54 Reading Location: [facility] B1 [id number] Ortho Consult Reading Room 05: 39 PMPOCT-GLUCOSE [id number] 17:04:00 Test Item Value Reference Range Comments POC-GLUCOSE METER (BEAKER) 154 mg/dL 70-110 TESTED AT [address] (test zitt=4326) [place] [id number] POCT-GLUCOSE [id number] 13:17:00 Test Item Value Reference Range Comments POC-GLUCOSE METER (BEAKER) 168 mg/dL 70-110 TESTED AT [address] (test ermb=9488) [place] [id number] POCT-GLUCOSE [id number] 12:33:00 Test Item Value Reference Range Comments POC-GLUCOSE METER (BEAKER) 127 mg/dL 70-110 TESTED AT [address] (test ndrt=1149) [facility] [address] CBC W/PLT COUNT & AUTO [id number] 05:57:00 Test Item Value Reference Range Comments WHITE BLOOD CELL COUNT (BEAKER) (test qoda=753) 5.4 K/ L 3.5-10.5 RED BLOOD CELL COUNT (BEAKER) (test teep=052) 2.27 M/ L 4.63-6.08 HEMOGLOBIN (BEAKER) (test exei=643) 7.5 GM/DL 13.7-17.5 HEMATOCRIT (BEAKER) (test kvau=900) 23.6 % 40.1-51.0 MEAN CORPUSCULAR VOLUME (BEAKER) (test ccuj=385) 104.0 fL 79.0-92.2 MEAN CORPUSCULAR HEMOGLOBIN (BEAKER) (test 33.0 pg 25.7-32.2 vier=822) MEAN CORPUSCULAR HEMOGLOBIN CONC (BEAKER) (test 31.8 GM/DL 32.3-36.5 dyhc=969) RED CELL DISTRIBUTION WIDTH (BEAKER) (test 16.0 % 11.6-14.4 wibl=599) PLATELET COUNT (BEAKER) (test ocqa=923) 121 K/CU MM 150-450 MEAN PLATELET VOLUME (BEAKER) (test fzix=546) 10.8 fL 9.4-12.4 NUCLEATED RED BLOOD CELLS (BEAKER) (test 0 /100 WBC 0-0 vuka=501) NEUTROPHILS RELATIVE PERCENT (BEAKER) (test 66 % bqep=252) LYMPHOCYTES RELATIVE PERCENT (BEAKER) (test 14 % usfs=051) MONOCYTES RELATIVE PERCENT (BEAKER) (test 13 % ihqc=133) EOSINOPHILS RELATIVE PERCENT (BEAKER) (test 5 % hfyj=469) BASOPHILS RELATIVE PERCENT (BEAKER) (test 0 % imhv=822) NEUTROPHILS ABSOLUTE COUNT (BEAKER) (test 3.60 K/ L 1.78-5.38 iluu=858) LYMPHOCYTES ABSOLUTE COUNT (BEAKER) (test 0.78 K/ L 1.32-3.57 uodk=743) MONOCYTES ABSOLUTE COUNT (BEAKER) (test 0.71 K/ L 0.30-0.82 eqkf=380) EOSINOPHILS ABSOLUTE COUNT (BEAKER) (test 0.29 K/ L 0.04-0.54 hdtn=208) BASOPHILS ABSOLUTE COUNT (BEAKER) (test 0.02 K/ L 0.01-0.08 xjuj=703) IMMATURE GRANULOCYTES-RELATIVE PERCENT (BEAKER) 0 % 0-1 (test bhkh=5325) TROPONIN [id number] 05:56:00 Test Item Value Reference Range Comments TROPONIN I (BEAKER) (test wlec=316) 0.08 ng/mL 0.00-0.03 Troponin I (TnI) levels [...] failure, acidosis, acute neurological disease, and persistent tachyarrhythmia.[id number] 05:48:00 Test Item Value Reference Range Comments MAGNESIUM (BEAKER) (test hpsj=677) 2.2 mg/dL 1.6-2.6 BASIC METABOLIC [id number] 05:48:00 Test Item Value Reference Range Comments SODIUM (BEAKER) (test 135 meq/L 136-145 jbcw=768) POTASSIUM (BEAKER) (test 4.9 meq/L 3.5-5.1 uduk=309) CHLORIDE (BEAKER) (test 105 meq/L 98-107 kihu=918) CO2 (BEAKER) (test 27 meq/L 22-29 oemq=891) BLOOD UREA NITROGEN 39 mg/dL 7-21 (BEAKER) (test tvbm=888) CREATININE (BEAKER) (test 1.10 mg/dL 0.57-1.25 rwru=298) GLUCOSE RANDOM (BEAKER) 115 mg/dL 70-105 (test uzgp=558) CALCIUM (BEAKER) (test 8.4 mg/dL 8.4-10.2 bcak=449) EGFR (BEAKER) (test 63 mL/min/1.73 sq m ESTIMATED GFR IS NOT fauz=8880) ACCURATE CREATININE CLEARANCE IN PREDICTING GLOMERULAR FILTRATION RATE. ESTIMATED GFR IS NOT APPLICABLE FOR DIALYSIS PATIENTS. POCT-GLUCOSE [id number] 04:49:00 Test Item Value Reference Range Comments POC-GLUCOSE METER (BEAKER) 131 mg/dL 70-110 TESTED AT [address] (test htlk=4238) [place] [address] POCT-GLUCOSE [id number] 22:24:00 Test Item Value Reference Range Comments POC-GLUCOSE METER (BEAKER) 180 mg/dL 70-110 TESTED AT [address] (test latn=4151) [place] [address] POCT-GLUCOSE [id number] 17:17:00 Test Item Value Reference Range Comments POC-GLUCOSE METER (BEAKER) 176 mg/dL 70-110 TESTED AT [address] (test mawj=9249) [place] [address] POCT-GLUCOSE [id number] 11:51:00 Test Item Value Reference Range Comments POC-GLUCOSE METER (BEAKER) 180 mg/dL 70-110 TESTED AT [address] (test jlpn=3308) [place] [address] HEMOGLOBIN AND [id number] 07:49:00 Test Item Value Reference Range Comments HEMOGLOBIN (BEAKER) (test jgsw=221) 7.3 GM/DL 13.7-17.5 HEMATOCRIT (BEAKER) (test uvnp=221) 22.6 % 40.1-51.0 BASIC METABOLIC [id number] 06:43:00 Test Item Value Reference Range Comments SODIUM (BEAKER) (test 137 meq/L 136-145 gkml=916) POTASSIUM (BEAKER) (test 4.7 meq/L 3.5-5.1 mslv=677) CHLORIDE (BEAKER) (test 108 meq/L 98-107 nrvx=876) CO2 (BEAKER) (test 24 meq/L 22-29 sesi=486) BLOOD UREA NITROGEN 37 mg/dL 7-21 (BEAKER) (test zxtk=269) CREATININE (BEAKER) (test 1.02 mg/dL 0.57-1.25 zvzl=558) GLUCOSE RANDOM (BEAKER) 129 mg/dL 70-105 (test zgsx=307) CALCIUM (BEAKER) (test 8.3 mg/dL 8.4-10.2 vwnr=068) EGFR (BEAKER) (test 69 mL/min/1.73 sq m ESTIMATED GFR IS NOT nfzg=6232) ACCURATE CREATININE CLEARANCE IN PREDICTING GLOMERULAR FILTRATION RATE. ESTIMATED GFR IS NOT APPLICABLE FOR DIALYSIS PATIENTS. POCT-GLUCOSE [id number] 06:26:00 Test Item Value Reference Range Comments POC-GLUCOSE METER (BEAKER) 173 mg/dL 70-110 TESTED AT [address] (test ypwn=0593) [facility] [address] POCT-GLUCOSE [id number] 00:26:00 Test Item Value Reference Range Comments POC-GLUCOSE METER (BEAKER) 182 mg/dL 70-110 TESTED AT [address] (test qazc=9880) [facility] [address] POCT-GLUCOSE [id number] 18:53:00 Test Item Value Reference Range Comments POC-GLUCOSE METER (BEAKER) 174 mg/dL 70-110 TESTED AT [address] (test jjyo=5965) [facility] [address] POCT-GLUCOSE [id number] 12:47:00 Test Item Value Reference Range Comments POC-GLUCOSE METER (BEAKER) 215 mg/dL 70-110 TESTED AT [address] (test kyzt=6022) [facility] [address] POCT-GLUCOSE [id number] 08:59:00 Test Item Value Reference Range Comments POC-GLUCOSE METER (BEAKER) 185 mg/dL 70-[address] [facility] [address] [facility] (test vwxb=1017) [facility] [address] POCT-GLUCOSE [id number] 06:33:00 Test Item Value Reference Range Comments POC-GLUCOSE METER (BEAKER) 195 mg/dL 70-[address] [facility] [address] [facility] (test skst=8174) [facility] [address] BASIC METABOLIC [id number] 03:42:00 Test Item Value Reference Range Comments SODIUM (BEAKER) (test 142 meq/L 136-145 reji=510) POTASSIUM (BEAKER) (test 4.4 meq/L 3.5-5.1 rwna=919) CHLORIDE (BEAKER) (test 112 meq/L 98-107 hpcr=248) CO2 (BEAKER) (test 25 meq/L 22-29 mfas=539) BLOOD UREA NITROGEN 34 mg/dL 7-21 (BEAKER) (test leqo=705) CREATININE (BEAKER) (test 0.96 mg/dL 0.57-1.25 eyfr=386) GLUCOSE RANDOM (BEAKER) 154 mg/dL 70-105 (test pbmf=316) CALCIUM (BEAKER) (test 8.7 mg/dL 8.4-10.2 lmew=478) EGFR (BEAKER) (test 74 mL/min/1.73 sq m ESTIMATED GFR IS NOT wvit=9846) ACCURATE CREATININE CLEARANCE IN PREDICTING GLOMERULAR FILTRATION RATE. ESTIMATED GFR IS NOT APPLICABLE FOR DIALYSIS PATIENTS. PROTHROMBIN [id number] 03:37:00 Test Item Value Reference Range Comments PROTIME (BEAKER) (test kaeo=844) 14.7 seconds 11.9-14.2 INR (BEAKER) (test spll=247) 1.2 <=5.9 Effective 07/28/2018: PT Reference Range ChangeNew: 11.9-14.2 Previous: 11.7- 14.7RECOMMENDED COUMADIN/WARFARIN INR THERAPY RANGESSTANDARD DOSE: 2.0-3.0 Includes: PROPHYLAXIS for venous thrombosis, systemic embolization; TREATMENT for venous thrombosis and/or pulmonary embolus.HIGH RISK: Target INR is2.5-3.5 for patients wiht mechanical heart valves.CBC W/PLT COUNT & AUTO [id number] 03:32:00 Test Item Value Reference Range Comments WHITE BLOOD CELL COUNT 5.5 K/ L 3.5-10.5 (BEAKER) (test zhoa=784) RED BLOOD CELL COUNT (BEAKER) 2.22 M/ L 4.63-6.08 (test kiis=626) HEMOGLOBIN (BEAKER) (test 7.3 GM/DL 13.7-17.5 ekpn=297) HEMATOCRIT (BEAKER) (test 23.1 % 40.1-51.0 ajeh=343) MEAN CORPUSCULAR VOLUME 104.1 fL 79.0-92.2 Discordant MCV results (BEAKER) (test apjy=804) compared to previous results; clinical correlation required. MEAN CORPUSCULAR HEMOGLOBIN 32.9 pg 25.7-32.2 (BEAKER) (test lawj=252) MEAN CORPUSCULAR HEMOGLOBIN 31.6 GM/DL 32.3-36.5 CONC (BEAKER) (test jyst=142) RED CELL DISTRIBUTION WIDTH 17.1 % 11.6-14.4 (BEAKER) (test exbi=602) PLATELET COUNT (BEAKER) (test 105 K/CU MM 150-450 apqv=992) MEAN PLATELET VOLUME (BEAKER) 11.0 fL 9.4-12.4 (test kypl=520) NUCLEATED RED BLOOD CELLS 0 /100 WBC 0-0 (BEAKER) (test imui=924) NEUTROPHILS RELATIVE PERCENT 64 % (BEAKER) (test jtwv=801) LYMPHOCYTES RELATIVE PERCENT 14 % (BEAKER) (test cwlw=271) MONOCYTES RELATIVE PERCENT 13 % (BEAKER) (test oiat=811) EOSINOPHILS RELATIVE PERCENT 8 % (BEAKER) (test cxpb=451) BASOPHILS RELATIVE PERCENT 1 % (BEAKER) (test bbab=185) NEUTROPHILS ABSOLUTE COUNT 3.55 K/ L 1.78-5.38 (BEAKER) (test mrwi=648) LYMPHOCYTES ABSOLUTE COUNT 0.75 K/ L 1.32-3.57 (BEAKER) (test tvkw=126) MONOCYTES ABSOLUTE COUNT 0.73 K/ L 0.30-0.82 (BEAKER) (test wqyw=122) EOSINOPHILS ABSOLUTE COUNT 0.43 K/ L 0.04-0.54 (BEAKER) (test cfzc=142) BASOPHILS ABSOLUTE COUNT 0.03 K/ L 0.01-0.08 (BEAKER) (test flcp=803) IMMATURE 1 % 0-1 GRANULOCYTES-RELATIVE PERCENT (BEAKER) (test wree=1681) POCT-GLUCOSE [id number] 00:13:00 Test Item Value Reference Range Comments POC-GLUCOSE METER (BEAKER) 187 mg/dL 70-110 TESTED AT [address] (test rqxb=1810) [place] [address] POCT-GLUCOSE [id number] 18:27:00 Test Item Value Reference Range Comments POC-GLUCOSE METER (BEAKER) 184 mg/dL 70-110 TESTED AT [address] (test lkmm=7915) [place] [address] POCT-GLUCOSE [id number] 14:01:00 Test Item Value Reference Range Comments POC-GLUCOSE METER (BEAKER) 224 mg/dL 70-110 TESTED AT [address] (test qevm=9434) [place] [address] [id number] 06:44:00 Test Item Value Reference Range Comments MAGNESIUM (BEAKER) (test vaxk=406) 2.6 mg/dL 1.6-2.6 BASIC METABOLIC [id number] 06:44:00 Test Item Value Reference Range Comments SODIUM (BEAKER) (test 146 meq/L 136-145 ztin=618) POTASSIUM (BEAKER) (test 4.2 meq/L 3.5-5.1 ebuz=331) CHLORIDE (BEAKER) (test 115 meq/L 98-107 vsng=957) CO2 (BEAKER) (test 27 meq/L 22-29 bmut=082) BLOOD UREA NITROGEN 41 mg/dL 7-21 (BEAKER) (test mlkg=070) CREATININE (BEAKER) (test 1.18 mg/dL 0.57-1.25 xsyl=360) GLUCOSE RANDOM (BEAKER) 157 mg/dL 70-105 (test datv=130) CALCIUM (BEAKER) (test 8.9 mg/dL 8.4-10.2 uhbb=566) EGFR (BEAKER) (test 58 mL/min/1.73 sq m ESTIMATED GFR IS NOT wtoz=0670) ACCURATE CREATININE CLEARANCE IN PREDICTING GLOMERULAR FILTRATION RATE. ESTIMATED GFR IS NOT APPLICABLE FOR DIALYSIS PATIENTS. POCT-GLUCOSE [id number] 06:21:00 Test Item Value Reference Range Comments POC-GLUCOSE METER (BEAKER) 181 mg/dL 70-[address] [facility] [address] (test tjqm=6880) [place] [address] PROTHROMBIN [id number] 05:09:00 Test Item Value Reference Range Comments PROTIME (BEAKER) (test qwdt=581) 14.1 seconds 11.9-14.2 INR (BEAKER) (test hbmw=057) 1.1 <=5.9 Effective 07/28/2018: PT Reference Range ChangeNew: 11.9-14.2 Previous: 11.7- 14.7RECOMMENDED COUMADIN/WARFARIN INR THERAPY RANGESSTANDARD DOSE: 2.0-3.0 Includes: PROPHYLAXIS for venous thrombosis, systemic embolization; TREATMENT for venous thrombosis and/or pulmonary embolus.HIGH RISK: Target INR is2.5-3.5 for patients wiht mechanical heart valves.CBC (HEMOGRAM ONLY)2018-08-28 04:59:00 Test Item Value Reference Range Comments WHITE BLOOD CELL COUNT (BEAKER) (test lfxi=615) 5.0 K/ L 3.5-10.5 RED BLOOD CELL COUNT (BEAKER) (test wbjm=439) 2.12 M/ L 4.63-6.08 HEMOGLOBIN (BEAKER) (test phxe=711) 7.1 GM/DL 13.7-17.5 HEMATOCRIT (BEAKER) (test cqyf=772) 23.0 % 40.1-51.0 MEAN CORPUSCULAR VOLUME (BEAKER) (test tzbe=262) 108.5 fL 79.0-92.2 MEAN CORPUSCULAR HEMOGLOBIN (BEAKER) (test 33.5 pg 25.7-32.2 chod=720) MEAN CORPUSCULAR HEMOGLOBIN CONC (BEAKER) (test 30.9 GM/DL 32.3-36.5 meqr=478) RED CELL DISTRIBUTION WIDTH (BEAKER) (test 16.4 % 11.6-14.4 tgby=069) PLATELET COUNT (BEAKER) (test btqn=482) 107 K/CU MM 150-450 MEAN PLATELET VOLUME (BEAKER) (test tbat=161) 10.9 fL 9.4-12.4 NUCLEATED RED BLOOD CELLS (BEAKER) (test 0 /100 WBC 0-0 vqun=902) POCT-GLUCOSE [id number] 00:55:00 Test Item Value Reference Range Comments POC-GLUCOSE METER (BEAKER) 211 mg/dL 70-110 TESTED AT [address] (test xakh=0731) [facility] [address] POCT-GLUCOSE [id number] 21:29:00 Test Item Value Reference Range Comments POC-GLUCOSE METER (BEAKER) 220 mg/dL 70-110 TESTED AT [address] (test tiux=8776) [facility] [address] POCT-GLUCOSE [id number] 18:15:00 Test Item Value Reference Range Comments POC-GLUCOSE METER (BEAKER) 200 mg/dL 70-110 TESTED AT [address] (test acag=4097) [facility] [address] POCT-GLUCOSE [id number] 11:57:00 Test Item Value Reference Range Comments POC-GLUCOSE METER (BEAKER) 238 mg/dL 70-110 TESTED AT [address] (test mdgu=5560) [facility] [address] HEMOGLOBIN AND [id number] 08:02:00 Test Item Value Reference Range Comments HEMOGLOBIN (BEAKER) (test aplj=065) 7.3 GM/DL 13.7-17.5 HEMATOCRIT (BEAKER) (test sdru=775) 23.2 % 40.1-51.0 [id number] 06:37:00 Test Item Value Reference Range Comments MAGNESIUM (BEAKER) (test tiko=004) 2.6 mg/dL 1.6-2.6 BASIC METABOLIC [id number] 06:37:00 Test Item Value Reference Range Comments SODIUM (BEAKER) (test 147 meq/L 136-145 mlyl=808) POTASSIUM (BEAKER) (test 4.2 meq/L 3.5-5.1 kgqk=006) CHLORIDE (BEAKER) (test 117 meq/L 98-107 kctf=851) CO2 (BEAKER) (test 26 meq/L 22-29 bfap=012) BLOOD UREA NITROGEN 37 mg/dL 7-21 (BEAKER) (test rxgt=073) CREATININE (BEAKER) (test 1.18 mg/dL 0.57-1.25 zeyg=333) GLUCOSE RANDOM (BEAKER) 146 mg/dL 70-105 (test porz=539) CALCIUM (BEAKER) (test 8.4 mg/dL 8.4-10.2 hrbv=536) EGFR (BEAKER) (test 58 mL/min/1.73 sq m ESTIMATED GFR IS NOT mysh=0642) ACCURATE CREATININE CLEARANCE IN PREDICTING GLOMERULAR FILTRATION RATE. ESTIMATED GFR IS NOT APPLICABLE FOR DIALYSIS PATIENTS. Specimen slightly ictericPOCT-GLUCOSE [id number] 06:24:00 Test Item Value Reference Range Comments POC-GLUCOSE METER (BEAKER) 160 mg/dL 70-110 TESTED AT [address] (test ozce=0115) [place] [id number] PROTHROMBIN [id number] 05:49:00 Test Item Value Reference Range Comments PROTIME (BEAKER) (test wouv=118) 15.1 seconds 11.9-14.2 INR (BEAKER) (test moyw=604) 1.2 <=5.9 Effective 07/28/2018: PT Reference Range ChangeNew: 11.9-14.2 Previous: 11.7- 14.7RECOMMENDED COUMADIN/WARFARIN INR THERAPY RANGESSTANDARD DOSE: 2.0-3.0 Includes: PROPHYLAXIS for venous thrombosis, systemic embolization; TREATMENT for venous thrombosis and/or pulmonary embolus.HIGH RISK: Target INR is2.5-3.5 for patients wiht mechanical heart valves.POCT-GLUCOSE [id number] 18:38:00 Test Item Value Reference Range Comments POC-GLUCOSE METER (BEAKER) 196 mg/dL 70-110 TESTED AT [address] (test zcdg=3456) [place] [id number] POCT-GLUCOSE [id number] 13:58:00 Test Item Value Reference Range Comments POC-GLUCOSE METER (BEAKER) 244 mg/dL 70-110 TESTED AT [address] (test rvnp=0138) [place] [address] [id number] 07:56:00 Test Item Value Reference Range Comments PHOSPHORUS (BEAKER) (test jsvq=116) 2.2 mg/dL 2.3-4.7 POCT-GLUCOSE [id number] 06:22:00 Test Item Value Reference Range Comments POC-GLUCOSE METER (BEAKER) 179 mg/dL 70-110 TESTED AT [address] (test dora=7322) [place] [id number] POCT-GLUCOSE [id number] 05:10:00 Test Item Value Reference Range Comments POC-GLUCOSE METER (BEAKER) 249 mg/dL 70-[address] [facility] [address] (test izct=6966) [facility] [address] [id number] 04:08:00 Test Item Value Reference Range Comments MAGNESIUM (BEAKER) (test cnum=515) 2.7 mg/dL 1.6-2.6 BASIC METABOLIC [id number] 04:08:00 Test Item Value Reference Range Comments SODIUM (BEAKER) (test 148 meq/L 136-145 tniz=028) POTASSIUM (BEAKER) (test 3.8 meq/L 3.5-5.1 oddf=077) CHLORIDE (BEAKER) (test 119 meq/L 98-107 yeqo=863) CO2 (BEAKER) (test 23 meq/L 22-29 ofcb=082) BLOOD UREA NITROGEN 25 mg/dL 7-21 (BEAKER) (test wswq=759) CREATININE (BEAKER) (test 0.86 mg/dL 0.57-1.25 daon=604) GLUCOSE RANDOM (BEAKER) 176 mg/dL 70-105 (test udxf=789) CALCIUM (BEAKER) (test 9.0 mg/dL 8.4-10.2 sqqr=672) EGFR (BEAKER) (test 84 mL/min/1.73 sq m ESTIMATED GFR IS NOT pgwg=1049) ACCURATE CREATININE CLEARANCE IN PREDICTING GLOMERULAR FILTRATION RATE. ESTIMATED GFR IS NOT APPLICABLE FOR DIALYSIS PATIENTS. PROTHROMBIN [id number] 03:49:00 Test Item Value Reference Range Comments PROTIME (BEAKER) (test ovfr=796) 16.0 seconds 11.9-14.2 INR (BEAKER) (test ddnm=489) 1.4 <=5.9 Effective 07/28/2018: PT Reference Range ChangeNew: 11.9-14.2 Previous: 11.7- 14.7RECOMMENDED COUMADIN/WARFARIN INR THERAPY RANGESSTANDARD DOSE: 2.0-3.0 Includes: PROPHYLAXIS for venous thrombosis, systemic embolization; TREATMENT for venous thrombosis and/or pulmonary embolus.HIGH RISK: Target INR is2.5-3.5 for patients wiht mechanical heart valves.CBC W/PLT COUNT & AUTO [id number] 03:49:00 Test Item Value Reference Range Comments WHITE BLOOD CELL COUNT (BEAKER) (test srxk=624) 6.3 K/ L 3.5-10.5 RED BLOOD CELL COUNT (BEAKER) (test tkzh=062) 2.18 M/ L 4.63-6.08 HEMOGLOBIN (BEAKER) (test iqqe=789) 7.2 GM/DL 13.7-17.5 HEMATOCRIT (BEAKER) (test xuqz=344) 22.6 % 40.1-51.0 MEAN CORPUSCULAR VOLUME (BEAKER) (test skjj=321) 103.7 fL 79.0-92.2 MEAN CORPUSCULAR HEMOGLOBIN (BEAKER) (test 33.0 pg 25.7-32.2 thte=012) MEAN CORPUSCULAR HEMOGLOBIN CONC (BEAKER) (test 31.9 GM/DL 32.3-36.5 hhlc=679) RED CELL DISTRIBUTION WIDTH (BEAKER) (test 17.0 % 11.6-14.4 ivij=470) PLATELET COUNT (BEAKER) (test sucr=039) 81 K/CU MM 150-450 MEAN PLATELET VOLUME (BEAKER) (test entp=998) 10.7 fL 9.4-12.4 NUCLEATED RED BLOOD CELLS (BEAKER) (test 0 /100 WBC 0-0 sekm=520) NEUTROPHILS RELATIVE PERCENT (BEAKER) (test 72 % fvxw=185) LYMPHOCYTES RELATIVE PERCENT (BEAKER) (test 10 % jldo=505) MONOCYTES RELATIVE PERCENT (BEAKER) (test 11 % vfro=097) EOSINOPHILS RELATIVE PERCENT (BEAKER) (test 7 % lpys=345) BASOPHILS RELATIVE PERCENT (BEAKER) (test 0 % gwld=963) NEUTROPHILS ABSOLUTE COUNT (BEAKER) (test 4.48 K/ L 1.78-5.38 wspx=577) LYMPHOCYTES ABSOLUTE COUNT (BEAKER) (test 0.64 K/ L 1.32-3.57 fdfn=405) MONOCYTES ABSOLUTE COUNT (BEAKER) (test qucu=319) 0.67 K/ L 0.30-0.82 EOSINOPHILS ABSOLUTE COUNT (BEAKER) (test 0.44 K/ L 0.04-0.54 zgaf=180) BASOPHILS ABSOLUTE COUNT (BEAKER) (test myeq=565) 0.02 K/ L 0.01-0.08 IMMATURE GRANULOCYTES-RELATIVE PERCENT (BEAKER) 0 % 0-1 (test kprs=9096) POCT-GLUCOSE [id number] 00:22:00 Test Item Value Reference Range Comments POC-GLUCOSE METER (BEAKER) 214 mg/dL 70-110 TESTED AT [address] (test ugkc=4068) [place] [id number] POCT-GLUCOSE [id number] 17:37:00 Test Item Value Reference Range Comments POC-GLUCOSE METER (BEAKER) 164 mg/dL 70-110 TESTED AT [address] (test supq=6144) [facility] [address] CBC W/PLT COUNT & AUTO [id number] 15:32:00 Test Item Value Reference Range Comments WHITE BLOOD CELL COUNT (BEAKER) (test uayq=738) 6.5 K/ L 3.5-10.5 RED BLOOD CELL COUNT (BEAKER) (test hgft=553) 2.37 M/ L 4.63-6.08 HEMOGLOBIN (BEAKER) (test ctvo=253) 7.9 GM/DL 13.7-17.5 HEMATOCRIT (BEAKER) (test oonv=593) 24.5 % 40.1-51.0 MEAN CORPUSCULAR VOLUME (BEAKER) (test pfai=215) 103.4 fL 79.0-92.2 MEAN CORPUSCULAR HEMOGLOBIN (BEAKER) (test 33.3 pg 25.7-32.2 upss=482) MEAN CORPUSCULAR HEMOGLOBIN CONC (BEAKER) (test 32.2 GM/DL 32.3-36.5 gkmg=632) RED CELL DISTRIBUTION WIDTH (BEAKER) (test 16.2 % 11.6-14.4 lstu=709) PLATELET COUNT (BEAKER) (test efko=867) 88 K/CU MM 150-450 MEAN PLATELET VOLUME (BEAKER) (test kvmc=102) 10.6 fL 9.4-12.4 NUCLEATED RED BLOOD CELLS (BEAKER) (test 0 /100 WBC 0-0 hxzq=102) NEUTROPHILS RELATIVE PERCENT (BEAKER) (test 73 % xjdp=780) LYMPHOCYTES RELATIVE PERCENT (BEAKER) (test 9 % przj=942) MONOCYTES RELATIVE PERCENT (BEAKER) (test 14 % uxqu=474) EOSINOPHILS RELATIVE PERCENT (BEAKER) (test 3 % uwxw=937) BASOPHILS RELATIVE PERCENT (BEAKER) (test 0 % jeut=699) NEUTROPHILS ABSOLUTE COUNT (BEAKER) (test 4.78 K/ L 1.78-5.38 ctwy=366) LYMPHOCYTES ABSOLUTE COUNT (BEAKER) (test 0.61 K/ L 1.32-3.57 ydfy=560) MONOCYTES ABSOLUTE COUNT (BEAKER) (test oyno=936) 0.93 K/ L 0.30-0.82 EOSINOPHILS ABSOLUTE COUNT (BEAKER) (test 0.18 K/ L 0.04-0.54 mdqg=395) BASOPHILS ABSOLUTE COUNT (BEAKER) (test rrmv=643) 0.02 K/ L 0.01-0.08 IMMATURE GRANULOCYTES-RELATIVE PERCENT (BEAKER) 0 % 0-1 (test ufjc=2128) EEG AWAKE/ASLEEP AND [id number] 14:46:00Reason for exam:->continued decreased responsivenessShould this be performed at the bedside?->YesDate(s) of EE08/25/2018DATE OF REPORT: 08/25/[id number] Number: [id number] Location: Inpatient ICUStart time:09:45 amStop time:10:06 amICD-10: R56.9 Unspecified ConvulsionsCPT Code: 58177 EEG HISTORY: 88 y.o. 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 MEDICATION THAT CAN AFFECT EEG: None [...] ONUR LEIVA MD on 2018 02:46 PMPOCT-GLUCOSE [id number] 12:43:00 Test Item Value Reference Range Comments POC-GLUCOSE METER (BEAKER) 221 mg/dL 70-110 TESTED AT [address] (test kbyc=1589) [place] [address] RAD, CHEST, 1 VIEW, NON [id number] 11:00:00Reason for exam:-> hemoptysisShould this be performed [...] Verified Date/ Time: 08/25/2018 11:00:37 Reading Location: [facility] Reading Room POCT-GLUCOSE [id number] 06:39:00 Test Item Value Reference Range Comments POC-GLUCOSE METER (BEAKER) 202 mg/dL 70-110 TESTED AT [address] (test mgao=5168) [place] [address] BLOOD GAS, [id number] 05:13:00 Test Item Value Reference Range Comments PH ARTERIAL (BEAKER) (test bgln=131) 7.59 7.35-7.45 PCO2 ARTERIAL (BEAKER) (test kckv=869) 25 mmHg 35-45 PO2 ARTERIAL (BEAKER) (test ognd=729) 148 mmHg 80-90 O2 SATURATION ARTERIAL (BEAKER) (test dovc=781) 99.2 % 96.0-97.0 HCO3 ARTERIAL (BEAKER) (test bdni=074) 24 mmol/L 21-29 BASE EXCESS ARTERIAL (BEAKER) (test cdmb=735) 2.0 mmol/L -2.0-3.0 PATIENT TEMPERATURE (BEAKER) (test wlpf=4448) 37.4 C FIO2 (BEAKER) (test wohk=8431) 24.0 % BASIC METABOLIC [id number] 05:10:00 Test Item Value Reference Range Comments SODIUM (BEAKER) (test 143 meq/L 136-145 grlm=140) POTASSIUM (BEAKER) (test 3.9 meq/L 3.5-5.1 fawn=937) CHLORIDE (BEAKER) (test 115 meq/L 98-107 rgbj=731) CO2 (BEAKER) (test 23 meq/L 22-29 orjk=056) BLOOD UREA NITROGEN 27 mg/dL 7-21 (BEAKER) (test khjn=621) CREATININE (BEAKER) (test 1.02 mg/dL 0.57-1.25 sdyv=309) GLUCOSE RANDOM (BEAKER) 220 mg/dL 70-105 (test nedv=807) CALCIUM (BEAKER) (test 8.8 mg/dL 8.4-10.2 wxxr=976) EGFR (BEAKER) (test 69 mL/min/1.73 sq m ESTIMATED GFR IS NOT wzkz=4220) ACCURATE CREATININE CLEARANCE IN PREDICTING GLOMERULAR FILTRATION RATE. ESTIMATED GFR IS NOT APPLICABLE FOR DIALYSIS PATIENTS. Specimen slightly ictericPROTHROMBIN [id number] 05:07:00 Test Item Value Reference Range Comments PROTIME (BEAKER) (test iobr=142) 15.6 seconds 11.9-14.2 INR (BEAKER) (test nbsh=086) 1.3 <=5.9 Effective 07/28/2018: PT Reference Range ChangeNew: 11.9-14.2 Previous: 11.7- 14.7RECOMMENDED COUMADIN/WARFARIN INR THERAPY RANGESSTANDARD DOSE: 2.0-3.0 Includes: PROPHYLAXIS for venous thrombosis, systemic embolization; TREATMENT for venous thrombosis and/or pulmonary embolus.HIGH RISK: Target INR is2.5-3.5 for patients wiht mechanical heart valves.CBC W/PLT COUNT & AUTO [id number] 04:52:00 Test Item Value Reference Range Comments WHITE BLOOD CELL COUNT (BEAKER) (test sjzs=714) 5.4 K/ L 3.5-10.5 RED BLOOD CELL COUNT (BEAKER) (test fjty=765) 2.02 M/ L 4.63-6.08 HEMOGLOBIN (BEAKER) (test ywms=769) 6.7 GM/DL 13.7-17.5 HEMATOCRIT (BEAKER) (test bnax=034) 21.2 % 40.1-51.0 MEAN CORPUSCULAR VOLUME (BEAKER) (test ipdt=697) 105.0 fL 79.0-92.2 MEAN CORPUSCULAR HEMOGLOBIN (BEAKER) (test 33.2 pg 25.7-32.2 digd=753) MEAN CORPUSCULAR HEMOGLOBIN CONC (BEAKER) (test 31.6 GM/DL 32.3-36.5 vdtd=990) RED CELL DISTRIBUTION WIDTH (BEAKER) (test 15.6 % 11.6-14.4 yept=255) PLATELET COUNT (BEAKER) (test kdyh=580) 91 K/CU MM 150-450 MEAN PLATELET VOLUME (BEAKER) (test fsoc=786) 10.5 fL 9.4-12.4 NUCLEATED RED BLOOD CELLS (BEAKER) (test 0 /100 WBC 0-0 gphq=259) NEUTROPHILS RELATIVE PERCENT (BEAKER) (test 71 % gfzn=652) LYMPHOCYTES RELATIVE PERCENT (BEAKER) (test 11 % rucr=990) MONOCYTES RELATIVE PERCENT (BEAKER) (test 15 % sgmp=455) EOSINOPHILS RELATIVE PERCENT (BEAKER) (test 1 % rfco=294) BASOPHILS RELATIVE PERCENT (BEAKER) (test 0 % lqtv=663) NEUTROPHILS ABSOLUTE COUNT (BEAKER) (test 3.88 K/ L 1.78-5.38 exfu=935) LYMPHOCYTES ABSOLUTE COUNT (BEAKER) (test 0.60 K/ L 1.32-3.57 ylpi=042) MONOCYTES ABSOLUTE COUNT (BEAKER) (test smzd=645) 0.83 K/ L 0.30-0.82 EOSINOPHILS ABSOLUTE COUNT (BEAKER) (test 0.07 K/ L 0.04-0.54 yefa=487) BASOPHILS ABSOLUTE COUNT (BEAKER) (test neas=170) 0.02 K/ L 0.01-0.08 IMMATURE GRANULOCYTES-RELATIVE PERCENT (BEAKER) 1 % 0-1 (test njxc=5660) RAD, CHEST, 1 VIEW, NON [id number] 04:28:00Reason for exam:-> intubatedShould this be performed at the bedside?->YesFINAL REPORT CLINICAL INDICATION: Support lines. Comparison: 08/24/2018 The cardiomediastinal contours are stable. Central pulmonary vascular congestion and bilateral parenchymalopacities are similar to previous. There is no pneumothorax. Support lines are stable. Signed: Dawson Barron Verified Date/Time: 08/25/2018 04:28:55 Reading Location: [address] Reading Room POCT-GLUCOSE [id number] 00:29:00 Test Item Value Reference Range Comments POC-GLUCOSE METER (BEAKER) 258 mg/dL 70-110 TESTED AT [address] (test srbi=6765) [facility] [address] POCT-GLUCOSE [id number] 18:26:00 Test Item Value Reference Range Comments POC-GLUCOSE METER (BEAKER) 293 mg/dL 70-110 TESTED AT [address] (test roan=9983) [facility] [address] BLOOD GAS, [id number] 15:38:00 Test Item Value Reference Range Comments PH ARTERIAL (BEAKER) (test oiyx=487) 7.48 7.35-7.45 PCO2 ARTERIAL (BEAKER) (test elku=067) 33 mmHg 35-45 PO2 ARTERIAL (BEAKER) (test ddgj=825) 121 mmHg 80-90 O2 SATURATION ARTERIAL (BEAKER) (test wbkd=244) 98.5 % 96.0-97.0 HCO3 ARTERIAL (BEAKER) (test tkif=921) 24 mmol/L 21-29 BASE EXCESS ARTERIAL (BEAKER) (test plwh=689) 0.4 mmol/L -2.0-3.0 PATIENT TEMPERATURE (BEAKER) (test qhni=7646) 38.0 C FIO2 (BEAKER) (test zzhp=3667) 30.0 % BLOOD GAS, [id number] 14:57:00 Test Item Value Reference Range Comments PH ARTERIAL (BEAKER) (test vedl=592) 7.48 7.35-7.45 PCO2 ARTERIAL (BEAKER) (test acwg=580) 33 mmHg 35-45 PO2 ARTERIAL (BEAKER) (test kkwq=277) 129 mmHg 80-90 O2 SATURATION ARTERIAL (BEAKER) (test vmek=846) 98.8 % 96.0-97.0 HCO3 ARTERIAL (BEAKER) (test neqn=985) 24 mmol/L 21-29 BASE EXCESS ARTERIAL (BEAKER) (test qgas=095) 0.5 mmol/L -2.0-3.0 PATIENT TEMPERATURE (BEAKER) (test jrij=3892) 37.5 C FIO2 (BEAKER) (test mmst=1642) 24.0 % BASIC METABOLIC [id number] 14:47:00 Test Item Value Reference Range Comments SODIUM (BEAKER) (test 147 meq/L 136-145 twrs=530) POTASSIUM (BEAKER) (test 3.8 meq/L 3.5-5.1 svmc=373) CHLORIDE (BEAKER) (test 116 meq/L 98-107 mxqk=103) CO2 (BEAKER) (test 24 meq/L 22-29 sttu=947) BLOOD UREA NITROGEN 30 mg/dL 7-21 (BEAKER) (test fwpv=669) CREATININE (BEAKER) (test 1.14 mg/dL 0.57-1.25 snqk=024) GLUCOSE RANDOM (BEAKER) 245 mg/dL 70-105 (test iinu=221) CALCIUM (BEAKER) (test 9.1 mg/dL 8.4-10.2 omua=403) EGFR (BEAKER) (test 61 mL/min/1.73 sq m ESTIMATED GFR IS NOT jyyv=6008) ACCURATE CREATININE CLEARANCE IN PREDICTING GLOMERULAR FILTRATION RATE. ESTIMATED GFR IS NOT APPLICABLE FOR DIALYSIS PATIENTS. [id number] 14:47:00 Test Item Value Reference Range Comments MAGNESIUM (BEAKER) (test qnic=353) 2.2 mg/dL 1.6-2.6 [id number] 14:47:00 Test Item Value Reference Range Comments PHOSPHORUS (BEAKER) (test ldln=337) 1.9 mg/dL 2.3-4.7 CBC W/PLT COUNT & AUTO [id number] 14:12:00 Test Item Value Reference Range Comments WHITE BLOOD CELL COUNT (BEAKER) (test wqvi=983) 6.4 K/ L 3.5-10.5 RED BLOOD CELL COUNT (BEAKER) (test eknl=793) 2.23 M/ L 4.63-6.08 HEMOGLOBIN (BEAKER) (test ywby=769) 7.4 GM/DL 13.7-17.5 HEMATOCRIT (BEAKER) (test wrhz=749) 23.2 % 40.1-51.0 MEAN CORPUSCULAR VOLUME (BEAKER) (test mbxb=821) 104.0 fL 79.0-92.2 MEAN CORPUSCULAR HEMOGLOBIN (BEAKER) (test 33.2 pg 25.7-32.2 pohu=920) MEAN CORPUSCULAR HEMOGLOBIN CONC (BEAKER) (test 31.9 GM/DL 32.3-36.5 crww=158) RED CELL DISTRIBUTION WIDTH (BEAKER) (test 15.5 % 11.6-14.4 qjaw=320) PLATELET COUNT (BEAKER) (test rjch=778) 113 K/CU MM 150-450 MEAN PLATELET VOLUME (BEAKER) (test plxy=003) 10.8 fL 9.4-12.4 NUCLEATED RED BLOOD CELLS (BEAKER) (test 0 /100 WBC 0-0 fqdj=043) NEUTROPHILS RELATIVE PERCENT (BEAKER) (test 74 % hjbm=140) LYMPHOCYTES RELATIVE PERCENT (BEAKER) (test 10 % qotl=278) MONOCYTES RELATIVE PERCENT (BEAKER) (test 15 % dmfs=799) EOSINOPHILS RELATIVE PERCENT (BEAKER) (test 0 % vdop=482) BASOPHILS RELATIVE PERCENT (BEAKER) (test 0 % hfea=009) NEUTROPHILS ABSOLUTE COUNT (BEAKER) (test 4.71 K/ L 1.78-5.38 nsuz=356) LYMPHOCYTES ABSOLUTE COUNT (BEAKER) (test 0.66 K/ L 1.32-3.57 crwp=591) MONOCYTES ABSOLUTE COUNT (BEAKER) (test 0.94 K/ L 0.30-0.82 podg=828) EOSINOPHILS ABSOLUTE COUNT (BEAKER) (test 0.01 K/ L 0.04-0.54 opcf=687) BASOPHILS ABSOLUTE COUNT (BEAKER) (test 0.02 K/ L 0.01-0.08 ochl=777) IMMATURE GRANULOCYTES-RELATIVE PERCENT (BEAKER) 0 % 0-1 (test ohtw=3596) CALCIUM, [id number] 13:35:00 Test Item Value Reference Range Comments CALCIUM IONIZED (BEAKER) (test fplv=396) 1.16 mmol/L 1.12-1.27 PH, BLOOD (BEAKER) (test ixsr=6794) 7.49 TROPONIN [id number] 13:08:00 Test Item Value Reference Range Comments TROPONIN I (BEAKER) (test fqcf=263) 0.07 ng/mL 0.00-0.03 Troponin I (TnI) levels [...] acidosis, acute neurological disease, and persistent tachyarrhythmia.POCT-GLUCOSE [id number] 12:10:00 Test Item Value Reference Range Comments POC-GLUCOSE METER (BEAKER) 258 mg/dL 70-110 TESTED AT [address] (test aohn=8288) [place] [address] POCT-GLUCOSE [id number] 06:22:00 Test Item Value Reference Range Comments POC-GLUCOSE METER (BEAKER) 215 mg/dL 70-110 TESTED AT [address] (test chsp=2420) [facility] [address] BLOOD GAS, [id number] 06:06:00 Test Item Value Reference Range Comments PH ARTERIAL (BEAKER) (test uvwp=425) 7.53 7.35-7.45 PCO2 ARTERIAL (BEAKER) (test qxrv=355) 29 mmHg 35-45 PO2 ARTERIAL (BEAKER) (test odvs=242) 88 mmHg 80-90 O2 SATURATION ARTERIAL (BEAKER) (test gmcg=213) 97.6 % 96.0-97.0 HCO3 ARTERIAL (BEAKER) (test yczm=014) 24 mmol/L 21-29 BASE EXCESS ARTERIAL (BEAKER) (test wqap=607) 2.4 mmol/L -2.0-3.0 PATIENT TEMPERATURE (BEAKER) (test ptyp=7312) 37.2 C FIO2 (BEAKER) (test iqzb=4250) 24.0 % BASIC METABOLIC [id number] 05:50:00 Test Item Value Reference Range Comments SODIUM (BEAKER) (test 144 meq/L 136-145 imgp=392) POTASSIUM (BEAKER) (test 3.4 meq/L 3.5-5.1 cvuy=349) CHLORIDE (BEAKER) (test 111 meq/L 98-107 sdpg=298) CO2 (BEAKER) (test 25 meq/L 22-29 xzxe=819) BLOOD UREA NITROGEN 31 mg/dL 7-21 (BEAKER) (test hmtc=687) CREATININE (BEAKER) (test 1.10 mg/dL 0.57-1.25 hyed=140) GLUCOSE RANDOM (BEAKER) 206 mg/dL 70-105 (test xntb=891) CALCIUM (BEAKER) (test 8.7 mg/dL 8.4-10.2 dbdg=743) EGFR (BEAKER) (test 63 mL/min/1.73 sq m ESTIMATED GFR IS NOT xwql=5299) ACCURATE CREATININE CLEARANCE IN PREDICTING GLOMERULAR FILTRATION RATE. ESTIMATED GFR IS NOT APPLICABLE FOR DIALYSIS PATIENTS. Specimen slightly ictericCBC W/PLT COUNT & AUTO [id number] 05:49 :00 Test Item Value Reference Range Comments WHITE BLOOD CELL COUNT (BEAKER) (test mhiz=994) 5.1 K/ L 3.5-10.5 RED BLOOD CELL COUNT (BEAKER) (test ilyx=753) 2.27 M/ L 4.63-6.08 HEMOGLOBIN (BEAKER) (test vpki=331) 7.7 GM/DL 13.7-17.5 HEMATOCRIT (BEAKER) (test jdng=920) 23.8 % 40.1-51.0 MEAN CORPUSCULAR VOLUME (BEAKER) (test qftx=826) 104.8 fL 79.0-92.2 MEAN CORPUSCULAR HEMOGLOBIN (BEAKER) (test 33.9 pg 25.7-32.2 tokl=189) MEAN CORPUSCULAR HEMOGLOBIN CONC (BEAKER) (test 32.4 GM/DL 32.3-36.5 tnqt=408) RED CELL DISTRIBUTION WIDTH (BEAKER) (test 15.4 % 11.6-14.4 ygxj=531) PLATELET COUNT (BEAKER) (test aije=558) 87 K/CU MM 150-450 MEAN PLATELET VOLUME (BEAKER) (test bqaq=822) 10.3 fL 9.4-12.4 NUCLEATED RED BLOOD CELLS (BEAKER) (test 0 /100 WBC 0-0 luge=070) NEUTROPHILS RELATIVE PERCENT (BEAKER) (test 68 % mdpp=081) LYMPHOCYTES RELATIVE PERCENT (BEAKER) (test 18 % bzyd=252) MONOCYTES RELATIVE PERCENT (BEAKER) (test 14 % qxab=730) EOSINOPHILS RELATIVE PERCENT (BEAKER) (test 1 % sbxt=313) BASOPHILS RELATIVE PERCENT (BEAKER) (test 0 % ncat=133) NEUTROPHILS ABSOLUTE COUNT (BEAKER) (test 3.42 K/ L 1.78-5.38 jxkr=778) LYMPHOCYTES ABSOLUTE COUNT (BEAKER) (test 0.89 K/ L 1.32-3.57 devb=007) MONOCYTES ABSOLUTE COUNT (BEAKER) (test ugdh=023) 0.69 K/ L 0.30-0.82 EOSINOPHILS ABSOLUTE COUNT (BEAKER) (test 0.04 K/ L 0.04-0.54 dcxi=800) BASOPHILS ABSOLUTE COUNT (BEAKER) (test qjlm=375) 0.01 K/ L 0.01-0.08 IMMATURE GRANULOCYTES-RELATIVE PERCENT (BEAKER) 0 % 0-1 (test ljvm=5173) PROTHROMBIN [id number] 05:34:00 Test Item Value Reference Range Comments PROTIME (BEAKER) (test jbxi=268) 17.0 seconds 11.9-14.2 INR (BEAKER) (test bmao=210) 1.5 <=5.9 Effective 07/28/2018: PT Reference Range ChangeNew: 11.9-14.2 Previous: 11.7- 14.7RECOMMENDED COUMADIN/WARFARIN INR THERAPY RANGESSTANDARD DOSE: 2.0-3.0 Includes: PROPHYLAXIS for venous thrombosis, systemic embolization; TREATMENT for venous thrombosis and/or pulmonary embolus.HIGH RISK: Target INR is2.5-3.5 for patients wiht mechanical heart valves.HEMOGLOBIN AND [id number] 05 :30:00 Test Item Value Reference Range Comments HEMOGLOBIN (BEAKER) (test fnvw=174) 7.7 GM/DL 13.7-17.5 HEMATOCRIT (BEAKER) (test ffho=417) 23.8 % 40.1-51.0 RAD, CHEST, 1 VIEW, NON [id number] 04:20:00Reason for exam:-> intubatedShould this be performed at the bedside?->YesFINAL REPORT CLINICAL INDICATION: Support lines. Comparison: 08/23/2018 The right costophrenic sulcus is excluded. The cardiomediastinal contours are stable. Central pulmonary vascular congestion and bilateral parenchymal and left pleural opacities are similar to previous. Thereis no pneumothorax. Support lines are stable. Signed: Dawson Barron MDReport Verified Date/Time: 04:20:37 Reading Location: [address] Reading Room HEMOGLOBIN AND [id number] 00:40:00 Test Item Value Reference Range Comments HEMOGLOBIN (BEAKER) (test wgce=519) 7.8 GM/DL 13.7-17.5 HEMATOCRIT (BEAKER) (test wxne=014) 24.2 % 40.1-51.0 POCT-GLUCOSE [id number] 00:30:00 Test Item Value Reference Range Comments POC-GLUCOSE METER (BEAKER) 192 mg/dL 70-110 TESTED AT [address] (test wsya=5164) [facility] [address] POCT-GLUCOSE [id number] 17:25:00 Test Item Value Reference Range Comments POC-GLUCOSE METER (BEAKER) 199 mg/dL 70-110 TESTED AT [address] (test nvoz=4023) [facility] [address] HEMOGLOBIN AND [id number] 15:58:00 Test Item Value Reference Range Comments HEMOGLOBIN (BEAKER) (test ptdi=249) 7.6 GM/DL 13.7-17.5 HEMATOCRIT (BEAKER) (test xogr=712) 23.1 % 40.1-51.0 POCT-GLUCOSE [id number] 13:05:00 Test Item Value Reference Range Comments POC-GLUCOSE METER (BEAKER) 196 mg/dL 70-[address] [facility] [address] (test dpes=3959) [facility] [address] TROPONIN [id number] 10:06:00 Test Item Value Reference Range Comments TROPONIN I (BEAKER) (test ouxd=877) 0.08 ng/mL 0.00-0.03 Troponin I (TnI) levels [...] and persistent tachyarrhythmia.CBC W/PLT COUNT & AUTO [id number] 09:30:00 Test Item Value Reference Range Comments WHITE BLOOD CELL COUNT (BEAKER) (test pqxf=863) 5.4 K/ L 3.5-10.5 RED BLOOD CELL COUNT (BEAKER) (test tnum=937) 2.33 M/ L 4.63-6.08 HEMOGLOBIN (BEAKER) (test orul=039) 7.8 GM/DL 13.7-17.5 HEMATOCRIT (BEAKER) (test mjjc=665) 23.8 % 40.1-51.0 MEAN CORPUSCULAR VOLUME (BEAKER) (test yqqa=509) 102.1 fL 79.0-92.2 MEAN CORPUSCULAR HEMOGLOBIN (BEAKER) (test 33.5 pg 25.7-32.2 toze=932) MEAN CORPUSCULAR HEMOGLOBIN CONC (BEAKER) (test 32.8 GM/DL 32.3-36.5 arpg=380) RED CELL DISTRIBUTION WIDTH (BEAKER) (test 15.3 % 11.6-14.4 inhd=342) PLATELET COUNT (BEAKER) (test psqa=810) 81 K/CU MM 150-450 MEAN PLATELET VOLUME (BEAKER) (test yttg=996) 11.3 fL 9.4-12.4 NUCLEATED RED BLOOD CELLS (BEAKER) (test 0 /100 WBC 0-0 qbhc=665) NEUTROPHILS RELATIVE PERCENT (BEAKER) (test 69 % nrmd=222) LYMPHOCYTES RELATIVE PERCENT (BEAKER) (test 14 % eocm=336) MONOCYTES RELATIVE PERCENT (BEAKER) (test 13 % azwc=753) EOSINOPHILS RELATIVE PERCENT (BEAKER) (test 3 % atej=396) BASOPHILS RELATIVE PERCENT (BEAKER) (test 0 % npyi=149) NEUTROPHILS ABSOLUTE COUNT (BEAKER) (test 3.76 K/ L 1.78-5.38 sycx=157) LYMPHOCYTES ABSOLUTE COUNT (BEAKER) (test 0.77 K/ L 1.32-3.57 ljmg=252) MONOCYTES ABSOLUTE COUNT (BEAKER) (test dwzk=316) 0.70 K/ L 0.30-0.82 EOSINOPHILS ABSOLUTE COUNT (BEAKER) (test 0.17 K/ L 0.04-0.54 tntf=850) BASOPHILS ABSOLUTE COUNT (BEAKER) (test tkla=893) 0.01 K/ L 0.01-0.08 IMMATURE GRANULOCYTES-RELATIVE PERCENT (BEAKER) 0 % 0-1 (test wvgj=6786) BLOOD GAS, [id number] 09:19:00 Test Item Value Reference Range Comments PH ARTERIAL (BEAKER) (test ejcw=265) 7.55 7.35-7.45 PCO2 ARTERIAL (BEAKER) (test puno=128) 31 mmHg 35-45 PO2 ARTERIAL (BEAKER) (test xwuv=609) 180 mmHg 80-90 O2 SATURATION ARTERIAL (BEAKER) (test pwre=921) 99.4 % 96.0-97.0 HCO3 ARTERIAL (BEAKER) (test ersh=503) 26 mmol/L 21-29 BASE EXCESS ARTERIAL (BEAKER) (test qjet=953) 4.2 mmol/L -2.0-3.0 PATIENT TEMPERATURE (BEAKER) (test faut=4038) 38.0 C FIO2 (BEAKER) (test xlmo=8449) 30.0 % BLOOD GAS, [id number] 05:48:00 Test Item Value Reference Range Comments PH ARTERIAL (BEAKER) (test bnyy=878) 7.58 7.35-7.45 PCO2 ARTERIAL (BEAKER) (test hivp=264) 28 mmHg 35-45 PO2 ARTERIAL (BEAKER) (test ehxa=696) 215 mmHg 80-90 O2 SATURATION ARTERIAL (BEAKER) (test swjg=736) 99.6 % 96.0-97.0 HCO3 ARTERIAL (BEAKER) (test kbna=481) 26 mmol/L 21-29 BASE EXCESS ARTERIAL (BEAKER) (test caah=874) 4.1 mmol/L -2.0-3.0 PATIENT TEMPERATURE (BEAKER) (test dpzx=8398) 37.1 C FIO2 (BEAKER) (test yrob=2320) 40.0 % RAD, CHEST, 1 VIEW, NON [id number] 04:45:00Reason for exam:-> intubatedShould this be performed at the bedside?->YesFINAL REPORT RAD, CHEST, 1 VIEW, NON DEPT INDICATION: intubated COMPARISON: Prior day's exam FINDINGS: Portable frontal view of the chest. IMPRESSION: Support Lines: Stable. Lungs and pleura: Unchanged airspace and pleural opacities. No pneumothorax.Heart and mediastinum: Stable contours. Stable surgical changes.Additional findings: None. Signed: David Jha MDReportVerified Date/Time: 08/23/2018 04:45:26 BASIC METABOLIC [id number] 04:11:00 Test Item Value Reference Range Comments SODIUM (BEAKER) (test 145 meq/L 136-145 wwyl=272) POTASSIUM (BEAKER) (test 3.6 meq/L 3.5-5.1 Specimen slightly kmxl=048) hemolyzed CHLORIDE (BEAKER) (test 110 meq/L 98-107 rclx=608) CO2 (BEAKER) (test 26 meq/L 22-29 mtlj=769) BLOOD UREA NITROGEN 29 mg/dL 7-21 (BEAKER) (test ejvo=823) CREATININE (BEAKER) (test 1.05 mg/dL 0.57-1.25 Specimen slightly nicq=776) hemolyzed GLUCOSE RANDOM (BEAKER) 155 mg/dL 70-105 (test atee=876) CALCIUM (BEAKER) (test 9.0 mg/dL 8.4-10.2 ekpp=838) EGFR (BEAKER) (test 67 mL/min/1.73 sq m ESTIMATED GFR IS NOT ufcc=5538) ACCURATE CREATININE CLEARANCE IN PREDICTING GLOMERULAR FILTRATION RATE. ESTIMATED GFR IS NOT APPLICABLE FOR DIALYSIS PATIENTS. Specimen slightly ictericCT, BRAIN, WITHOUT [id number] 03:59:00FINAL REPORT CT Head without contrast CLINICAL [...] signs of acute sinusitis. Signed: David Jha MDReptenet [place] Verified Date/Time: 08/23/2018 03:59:22 TROPONIHneok [id number] 02:22:00 Test Item Value Reference Range Comments TROPONIN I (BEAKER) (test ygyj=622) 0.08 ng/mL 0.00-0.03 Troponin I (TnI) levels [...] and persistent tachyarrhythmia.CBC W/PLT COUNT & AUTO [id number] 02:06:00 Test Item Value Reference Range Comments WHITE BLOOD CELL COUNT (BEAKER) (test lnlu=176) 6.1 K/ L 3.5-10.5 RED BLOOD CELL COUNT (BEAKER) (test mnao=818) 2.34 M/ L 4.63-6.08 HEMOGLOBIN (BEAKER) (test maqp=692) 8.0 GM/DL 13.7-17.5 HEMATOCRIT (BEAKER) (test sery=351) 23.9 % 40.1-51.0 MEAN CORPUSCULAR VOLUME (BEAKER) (test lqvy=090) 102.1 fL 79.0-92.2 MEAN CORPUSCULAR HEMOGLOBIN (BEAKER) (test 34.2 pg 25.7-32.2 zigy=016) MEAN CORPUSCULAR HEMOGLOBIN CONC (BEAKER) (test 33.5 GM/DL 32.3-36.5 deip=826) RED CELL DISTRIBUTION WIDTH (BEAKER) (test 15.5 % 11.6-14.4 bwzn=555) PLATELET COUNT (BEAKER) (test mxdr=088) 96 K/CU MM 150-450 MEAN PLATELET VOLUME (BEAKER) (test vmhb=739) 11.0 fL 9.4-12.4 NUCLEATED RED BLOOD CELLS (BEAKER) (test 0 /100 WBC 0-0 mgwe=160) NEUTROPHILS RELATIVE PERCENT (BEAKER) (test 73 % fxvr=620) LYMPHOCYTES RELATIVE PERCENT (BEAKER) (test 11 % wxfe=323) MONOCYTES RELATIVE PERCENT (BEAKER) (test 13 % jira=201) EOSINOPHILS RELATIVE PERCENT (BEAKER) (test 1 % wztw=948) BASOPHILS RELATIVE PERCENT (BEAKER) (test 0 % edft=949) NEUTROPHILS ABSOLUTE COUNT (BEAKER) (test 4.48 K/ L 1.78-5.38 xhpx=678) LYMPHOCYTES ABSOLUTE COUNT (BEAKER) (test 0.70 K/ L 1.32-3.57 mjpp=751) MONOCYTES ABSOLUTE COUNT (BEAKER) (test ldwf=422) 0.82 K/ L 0.30-0.82 EOSINOPHILS ABSOLUTE COUNT (BEAKER) (test 0.08 K/ L 0.04-0.54 ajrn=512) BASOPHILS ABSOLUTE COUNT (BEAKER) (test byds=085) 0.02 K/ L 0.01-0.08 IMMATURE GRANULOCYTES-RELATIVE PERCENT (BEAKER) 1 % 0-1 (test nahs=7285) HEMOGLOBIN AND [id number] 02:04:00 Test Item Value Reference Range Comments HEMOGLOBIN (BEAKER) (test kvcc=272) 8.0 GM/DL 13.7-17.5 HEMATOCRIT (BEAKER) (test vnnf=296) 23.9 % 40.1-51.0 POCT-GLUCOSE [id number] 01:58:00 Test Item Value Reference Range Comments POC-GLUCOSE METER (BEAKER) 194 mg/dL 70-110 TESTED AT [address] (test nrqv=0794) [place] [id number] POCT-GLUCOSE [id number] 18:05:00 Test Item Value Reference Range Comments POC-GLUCOSE METER (BEAKER) 212 mg/dL 70-110 TESTED AT [address] (test gkxn=6743) [place] [id number] BLOOD GAS, [id number] 17:31:00 Test Item Value Reference Range Comments PH ARTERIAL (BEAKER) (test pypl=198) 7.44 7.35-7.45 PCO2 ARTERIAL (BEAKER) (test kioh=663) 38 mmHg 35-45 PO2 ARTERIAL (BEAKER) (test dtii=575) 63 mmHg 80-90 O2 SATURATION ARTERIAL (BEAKER) (test cdap=625) 92.8 % 96.0-97.0 HCO3 ARTERIAL (BEAKER) (test sysd=480) 25 mmol/L 21-29 BASE EXCESS ARTERIAL (BEAKER) (test fopb=303) 1.0 mmol/L -2.0-3.0 PATIENT TEMPERATURE (BEAKER) (test cqbe=3143) 37.0 C FIO2 (BEAKER) (test slmh=6796) 40.0 % RAD, CHEST, 1 VIEW, NON [id number] 16:59:00Post-intubationReason for exam:-& gt;intubationShould this be performed [...] MDReport Verified Date/Time: 08/22/2018 16:59:35 Reading Location: [facility] C013X [facility] Consult Reading Room CBC W/PLT COUNT & AUTO [id number] 16:38:00 Test Item Value Reference Range Comments WHITE BLOOD CELL COUNT (BEAKER) (test banh=174) 5.2 K/ L 3.5-10.5 RED BLOOD CELL COUNT (BEAKER) (test qjuo=434) 2.47 M/ L 4.63-6.08 HEMOGLOBIN (BEAKER) (test jxdq=612) 8.3 GM/DL 13.7-17.5 HEMATOCRIT (BEAKER) (test birx=342) 25.3 % 40.1-51.0 MEAN CORPUSCULAR VOLUME (BEAKER) (test ukvk=082) 102.4 fL 79.0-92.2 MEAN CORPUSCULAR HEMOGLOBIN (BEAKER) (test 33.6 pg 25.7-32.2 fqxi=145) MEAN CORPUSCULAR HEMOGLOBIN CONC (BEAKER) (test 32.8 GM/DL 32.3-36.5 zveo=282) RED CELL DISTRIBUTION WIDTH (BEAKER) (test 15.3 % 11.6-14.4 glhh=028) PLATELET COUNT (BEAKER) (test nvtl=650) 75 K/CU MM 150-450 MEAN PLATELET VOLUME (BEAKER) (test bunp=295) 11.3 fL 9.4-12.4 NUCLEATED RED BLOOD CELLS (BEAKER) (test 0 /100 WBC 0-0 jbrn=637) NEUTROPHILS RELATIVE PERCENT (BEAKER) (test 75 % dvjf=777) LYMPHOCYTES RELATIVE PERCENT (BEAKER) (test 15 % bavl=324) MONOCYTES RELATIVE PERCENT (BEAKER) (test 10 % kpok=632) EOSINOPHILS RELATIVE PERCENT (BEAKER) (test 0 % xhvc=403) BASOPHILS RELATIVE PERCENT (BEAKER) (test 0 % rapi=858) NEUTROPHILS ABSOLUTE COUNT (BEAKER) (test 3.90 K/ L 1.78-5.38 sohy=084) LYMPHOCYTES ABSOLUTE COUNT (BEAKER) (test 0.76 K/ L 1.32-3.57 sygh=529) MONOCYTES ABSOLUTE COUNT (BEAKER) (test lipp=994) 0.52 K/ L 0.30-0.82 EOSINOPHILS ABSOLUTE COUNT (BEAKER) (test 0.02 K/ L 0.04-0.54 tikl=831) BASOPHILS ABSOLUTE COUNT (BEAKER) (test kkxj=087) 0.01 K/ L 0.01-0.08 IMMATURE GRANULOCYTES-RELATIVE PERCENT (BEAKER) 0 % 0-1 (test yrse=7241) HEMOGLOBIN AND [id number] 16:25:00 Test Item Value Reference Range Comments HEMOGLOBIN (BEAKER) (test fxla=985) 8.3 GM/DL 13.7-17.5 HEMATOCRIT (BEAKER) (test ekul=301) 25.3 % 40.1-51.0 BLOOD GAS, [id number] 15:56:00 Test Item Value Reference Range Comments PH VENOUS (BEAKER) (test hzcq=636) 7.36 7.32-7.42 PCO2 VENOUS (BEAKER) (test mapq=013) 42 mmHg 41-51 PO2 VENOUS (BEAKER) (test rkxy=858) 42 mmHg 25-40 O2 SATURATION VENOUS (BEAKER) (test ilht=682) 76.6 % 40.0-70.0 HCO3 VENOUS (BEAKER) (test mepd=081) 24 mmol/L 21-29 BASE EXCESS VENOUS (BEAKER) (test dwlr=263) -1.8 mmol/L -2.0-3.0 PATIENT TEMPERATURE (BEAKER) (test bcpg=2608) 36.7 C FIO2 (BEAKER) (test mdko=7894) 21.0 % HEPATIC FUNCTION [id number] 14:56:00 Test Item Value Reference Range Comments TOTAL PROTEIN (BEAKER) (test 7.5 gm/dL 6.0-8.3 Specimen slightly hemolyzed yhlu=796) ALBUMIN (BEAKER) (test 4.1 g/dL 3.5-5.0 Specimen slightly hemolyzed wyba=6637) BILIRUBIN TOTAL (BEAKER) (test 2.3 mg/dL 0.2-1.2 Specimen slightly hemolyzed muid=191) BILIRUBIN DIRECT (BEAKER) (test 0.8 mg/dL 0.1-0.5 Specimen slightly hemolyzed wmwp=616) ALKALINE PHOSPHATASE (BEAKER) 103 U/L 40-150 (test iita=112) AST (SGOT) (BEAKER) (test 23 U/L 5-34 Specimen slightly hemolyzed gqjo=596) ALT (SGPT) (BEAKER) (test 15 U/L 6-55 Specimen slightly hemolyzed pzfm=144) Specimen slightly [id number] 14:50:00 Test Item Value Reference Range Comments AMMONIA (BEAKER) (test gfnb=575) 129 mol/L 18-72 TROPONIN [id number] 14:12:00 Test Item Value Reference Range Comments TROPONIN I (BEAKER) (test dgko=982) 0.02 ng/mL 0.00-0.03 Troponin I (TnI) levels [...] and persistent tachyarrhythmia.RAD, CHEST, 1 VIEW, NON [id number] 14:11:00Post-intubationReason for exam:->r/o pnaShould this be performed [...] MDReport Verified Date/Time: 08/22/2018 14:11:20 Reading Location: [facility] C013X Ortho Consult Reading Room [id number] 14:06:00 Test Item Value Reference Range Comments PHOSPHORUS (BEAKER) (test tdpu=907) 3.6 mg/dL 2.3-4.7 [id number] 14:06:00 Test Item Value Reference Range Comments MAGNESIUM (BEAKER) (test semm=207) 2.0 mg/dL 1.6-2.6 COMPREHENSIVE METABOLIC [id number] 14:06:00 Test Item Value Reference Range Comments TOTAL PROTEIN (BEAKER) 7.4 gm/dL 6.0-8.3 (test csyu=928) ALBUMIN (BEAKER) (test 4.1 g/dL 3.5-5.0 lpej=8504) ALKALINE PHOSPHATASE 103 U/L 40-150 (BEAKER) (test afps=738) BILIRUBIN TOTAL (BEAKER) 2.3 mg/dL 0.2-1.2 (test xpgv=639) SODIUM (BEAKER) (test 140 meq/L 136-145 tgic=460) POTASSIUM (BEAKER) (test 4.0 meq/L 3.5-5.1 bxwm=921) CHLORIDE (BEAKER) (test 105 meq/L 98-107 ztfk=583) CO2 (BEAKER) (test 24 meq/L 22-29 nozl=076) BLOOD UREA NITROGEN 35 mg/dL 7-21 (BEAKER) (test bsmb=342) CREATININE (BEAKER) (test 1.23 mg/dL 0.57-1.25 nkrg=493) GLUCOSE RANDOM (BEAKER) 170 mg/dL 70-105 (test usaa=279) CALCIUM (BEAKER) (test 9.5 mg/dL 8.4-10.2 isgb=314) AST (SGOT) (BEAKER) (test 22 U/L 5-34 rann=097) ALT (SGPT) (BEAKER) (test 15 U/L 6-55 fyvo=470) EGFR (BEAKER) (test 56 mL/min/1.73 sq m ESTIMATED GFR IS NOT hfpv=5457) ACCURATE CREATININE CLEARANCE IN PREDICTING GLOMERULAR FILTRATION RATE. ESTIMATED GFR IS NOT APPLICABLE FOR DIALYSIS PATIENTS. Specimen slightly ictericLACTIC ACID, [id number] 14:01:00 Test Item Value Reference Range Comments LACTATE BLOOD VENOUS (2) 1.9 mmol/L 0.5-2.2 Specimen slightly hemolyzed (BEAKER) (test issr=0579) Specimen slightly [id number] 14:00:00 Test Item Value Reference Range Comments FIBRINOGEN LEVEL (BEAKER) (test yvrr=998) 329 mg/dl 225-434 [id number] 14:00:00 Test Item Value Reference Range Comments PARTIAL THROMBOPLASTIN TIME (BEAKER) (test 36.4 seconds 22.5-36.0 pgvx=890) PROTHROMBIN [id number] 13:59:00 Test Item Value Reference Range Comments PROTIME (BEAKER) (test dugs=712) 22.1 seconds 11.9-14.2 INR (BEAKER) (test qhlw=108) 2.1 <=5.9 Effective 07/28/2018: PT Reference Range ChangeNew: 11.9-14.2 Previous: 11.7- 14.7RECOMMENDED COUMADIN/WARFARIN INR THERAPY RANGESSTANDARD DOSE: 2.0-3.0 Includes: PROPHYLAXIS for venous thrombosis, systemic embolization; TREATMENT for venous thrombosis and/or pulmonary embolus.HIGH RISK: Target INR is2.5-3.5 for patients wiht mechanical heart valves.CBC W/PLT COUNT & AUTO [id number] 13:47:00 Test Item Value Reference Range Comments WHITE BLOOD CELL COUNT (BEAKER) (test hcoz=690) 4.9 K/ L 3.5-10.5 RED BLOOD CELL COUNT (BEAKER) (test xbxw=764) 2.57 M/ L 4.63-6.08 HEMOGLOBIN (BEAKER) (test vtje=232) 8.6 GM/DL 13.7-17.5 HEMATOCRIT (BEAKER) (test cbdr=847) 26.4 % 40.1-51.0 MEAN CORPUSCULAR VOLUME (BEAKER) (test sehd=214) 102.7 fL 79.0-92.2 MEAN CORPUSCULAR HEMOGLOBIN (BEAKER) (test 33.5 pg 25.7-32.2 xfkp=981) MEAN CORPUSCULAR HEMOGLOBIN CONC (BEAKER) (test 32.6 GM/DL 32.3-36.5 gjvv=066) RED CELL DISTRIBUTION WIDTH (BEAKER) (test 15.1 % 11.6-14.4 obez=667) PLATELET COUNT (BEAKER) (test pese=444) 81 K/CU MM 150-450 MEAN PLATELET VOLUME (BEAKER) (test qzpk=734) 11.2 fL 9.4-12.4 NUCLEATED RED BLOOD CELLS (BEAKER) (test 0 /100 WBC 0-0 jwmh=379) NEUTROPHILS RELATIVE PERCENT (BEAKER) (test 75 % syqs=862) LYMPHOCYTES RELATIVE PERCENT (BEAKER) (test 15 % sziy=139) MONOCYTES RELATIVE PERCENT (BEAKER) (test 10 % vsdg=829) EOSINOPHILS RELATIVE PERCENT (BEAKER) (test 0 % cwif=741) BASOPHILS RELATIVE PERCENT (BEAKER) (test 0 % fkhj=353) NEUTROPHILS ABSOLUTE COUNT (BEAKER) (test 3.64 K/ L 1.78-5.38 ireg=793) LYMPHOCYTES ABSOLUTE COUNT (BEAKER) (test 0.72 K/ L 1.32-3.57 qnwh=321) MONOCYTES ABSOLUTE COUNT (BEAKER) (test iddw=804) 0.47 K/ L 0.30-0.82 EOSINOPHILS ABSOLUTE COUNT (BEAKER) (test 0.01 K/ L 0.04-0.54 bvpl=229) BASOPHILS ABSOLUTE COUNT (BEAKER) (test wetk=118) 0.01 K/ L 0.01-0.08 IMMATURE GRANULOCYTES-RELATIVE PERCENT (BEAKER) 0 % 0-1 (test dchy=5407) POCT-GLUCOSE [id number] 07:50:00 Test Item Value Reference Range Comments POC-GLUCOSE METER (BEAKER) 137 mg/dL 70-[address] [facility] [address] [facility] (test njqu=9355) [facility] [address] BASIC METABOLIC [id number] 06:28:00 Test Item Value Reference Range Comments SODIUM (BEAKER) (test 137 meq/L 136-145 qggk=073) POTASSIUM (BEAKER) (test 3.7 meq/L 3.5-5.1 kvtb=025) CHLORIDE (BEAKER) (test 104 meq/L 98-107 axno=374) CO2 (BEAKER) (test 28 meq/L 22-29 wluq=462) BLOOD UREA NITROGEN 26 mg/dL 7-21 (BEAKER) (test hxoo=101) CREATININE (BEAKER) (test 1.26 mg/dL 0.57-1.25 kupy=963) GLUCOSE RANDOM (BEAKER) 100 mg/dL 70-105 (test nixn=272) CALCIUM (BEAKER) (test 8.6 mg/dL 8.4-10.2 ogua=169) EGFR (BEAKER) (test 54 mL/min/1.73 sq m ESTIMATED GFR IS NOT yhmo=6700) ACCURATE CREATININE CLEARANCE IN PREDICTING GLOMERULAR FILTRATION RATE. ESTIMATED GFR IS NOT APPLICABLE FOR DIALYSIS PATIENTS. CBC W/PLT COUNT & AUTO [id number] 06:08:00 Test Item Value Reference Range Comments WHITE BLOOD CELL COUNT (BEAKER) (test wfwq=673) 3.4 K/ L 3.5-10.5 RED BLOOD CELL COUNT (BEAKER) (test llqq=139) 2.25 M/ L 4.63-6.08 HEMOGLOBIN (BEAKER) (test eyme=596) 7.4 GM/DL 13.7-17.5 HEMATOCRIT (BEAKER) (test vnup=896) 23.1 % 40.1-51.0 MEAN CORPUSCULAR VOLUME (BEAKER) (test cozg=359) 102.7 fL 79.0-92.2 MEAN CORPUSCULAR HEMOGLOBIN (BEAKER) (test 32.9 pg 25.7-32.2 ftce=919) MEAN CORPUSCULAR HEMOGLOBIN CONC (BEAKER) (test 32.0 GM/DL 32.3-36.5 ouro=429) RED CELL DISTRIBUTION WIDTH (BEAKER) (test 13.9 % 11.6-14.4 cyln=103) PLATELET COUNT (BEAKER) (test yndz=559) 119 K/CU MM 150-450 MEAN PLATELET VOLUME (BEAKER) (test olam=108) 10.4 fL 9.4-12.4 NUCLEATED RED BLOOD CELLS (BEAKER) (test 0 /100 WBC 0-0 pghz=678) NEUTROPHILS RELATIVE PERCENT (BEAKER) (test 59 % kpvg=418) LYMPHOCYTES RELATIVE PERCENT (BEAKER) (test 21 % dfoz=186) MONOCYTES RELATIVE PERCENT (BEAKER) (test 14 % vaap=348) EOSINOPHILS RELATIVE PERCENT (BEAKER) (test 5 % drpt=597) BASOPHILS RELATIVE PERCENT (BEAKER) (test 1 % mbgd=682) NEUTROPHILS ABSOLUTE COUNT (BEAKER) (test 2.03 K/ L 1.78-5.38 jwab=289) LYMPHOCYTES ABSOLUTE COUNT (BEAKER) (test 0.73 K/ L 1.32-3.57 waim=243) MONOCYTES ABSOLUTE COUNT (BEAKER) (test 0.47 K/ L 0.30-0.82 uchp=703) EOSINOPHILS ABSOLUTE COUNT (BEAKER) (test 0.17 K/ L 0.04-0.54 ylcg=981) BASOPHILS ABSOLUTE COUNT (BEAKER) (test 0.02 K/ L 0.01-0.08 mlxm=196) IMMATURE GRANULOCYTES-RELATIVE PERCENT (BEAKER) 0 % 0-1 (test ahmq=8001) PROTHROMBIN TIME/[id number] 05:57:00 Test Item Value Reference Range Comments PROTIME (BEAKER) (test uxtj=260) 19.3 seconds 11.7-14.7 INR (BEAKER) (test hzwt=813) 1.6 <=5.9 RECOMMENDED COUMADIN/WARFARIN INR THERAPY RANGESSTANDARD DOSE: 2.0 - 3.0 Includes: PROPHYLAXIS forvenous thrombosis, systemic embolization; TREATMENT for venous thrombosis and/or pulmonary embolus.HIGH RISK: Target INR is 2.5-3.5 for patients with mechanical heart valves.While on warfarin.POCT-GLUCOSE [id number] 21:28:00 Test Item Value Reference Range Comments POC-GLUCOSE METER (BEAKER) 138 mg/dL 70-110 TESTED AT [address] (test lvzb=0015) [facility] [address] POCT-GLUCOSE [id number] 17:49:00 Test Item Value Reference Range Comments POC-GLUCOSE METER (BEAKER) 137 mg/dL 70-110 TESTED AT [place] [id number] [facility] (test djss=9905) [facility] [address] CBC W/PLT COUNT & AUTO [id number] 13:23:00 Test Item Value Reference Range Comments WHITE BLOOD CELL COUNT (BEAKER) (test vryr=847) 3.6 K/ L 3.5-10.5 RED BLOOD CELL COUNT (BEAKER) (test uoed=042) 2.39 M/ L 4.63-6.08 HEMOGLOBIN (BEAKER) (test sfrn=320) 7.9 GM/DL 13.7-17.5 HEMATOCRIT (BEAKER) (test fadw=995) 24.9 % 40.1-51.0 MEAN CORPUSCULAR VOLUME (BEAKER) (test qecs=396) 104.2 fL 79.0-92.2 MEAN CORPUSCULAR HEMOGLOBIN (BEAKER) (test 33.1 pg 25.7-32.2 axix=668) MEAN CORPUSCULAR HEMOGLOBIN CONC (BEAKER) (test 31.7 GM/DL 32.3-36.5 yrnx=801) RED CELL DISTRIBUTION WIDTH (BEAKER) (test 13.8 % 11.6-14.4 cxxc=033) PLATELET COUNT (BEAKER) (test msgk=538) 135 K/CU MM 150-450 MEAN PLATELET VOLUME (BEAKER) (test qzot=466) 11.0 fL 9.4-12.4 NUCLEATED RED BLOOD CELLS (BEAKER) (test 0 /100 WBC 0-0 wlex=100) (CELLAVISION MANUAL DIFF)[id number] 13:23:00 Test Item Value Reference Range Comments NEUTROPHILS - REL (CELLAVISION)(BEAKER) (test 60 % wedu=9286) LYMPHOCYTES - REL (CELLAVISION)(BEAKER) (test 21 % shay=8062) MONOCYTES - REL (CELLAVISION)(BEAKER) (test 9 % xssz=9448) EOSINOPHILS - REL (CELLAVISION)(BEAKER) (test 5 % gnpf=5729) BASOPHILS - REL (CELLAVISION)(BEAKER) (test 1 % boho=1345) BANDS - REL (CELLAVISION)(BEAKER) (test 2 % 0-10 imdq=3316) ATYPICAL LYMPHOCYTES - REL (CELLAVISION)(BEAKER) 2 % 0-0 (test dozi=8682) NEUTROPHILS - ABS (CELLAVISION)(BEAKER) (test 2.16 K/ul 1.78-5.38 helh=3070) LYMPHOCYTES - ABS (CELLAVISION)(BEAKER) (test 0.76 K/ul 1.32-3.57 unde=4770) MONOCYTES - ABS (CELLAVISION)(BEAKER) (test 0.32 K/uL 0.30-0.82 iflt=8721) EOSINOPHILS - ABS (CELLAVISION)(BEAKER) (test 0.18 K/uL 0.04-0.54 vzyg=9196) BASOPHILS - ABS (CELLAVISION)(BEAKER) (test 0.04 K/uL 0.01-0.08 ikae=8680) BANDS - ABS (CELLAVISION)(BEAKER) (test 0.07 K/uL 0.00-0.80 dyfn=1015) ATYPICAL LYMPHOCYTES - ABS (CELLAVISION)(BEAKER) 0.07 K/uL 0.00-0.00 (test giom=8111) TOTAL COUNTED (BEAKER) (test fwdi=5899) 100 WBC MORPHOLOGY (BEAKER) (test rrrj=897) Normal PLT MORPHOLOGY (BEAKER) (test roat=971) Normal POIKILOCYTES (BEAKER) (test kxfy=538) 2+ moderate ARTIFACT (CELLAVISION)(BEAKER) (test eyzy=4281) Present PLATELET CONCENTRATION (CELLAVISION)(BEAKER) Decreased (test fvty=9336) Received comment: User comments: Slide comments:POCT-GLUCOSE [id number] 11: 08:00 Test Item Value Reference Range Comments POC-GLUCOSE METER (BEAKER) 184 mg/dL 70-110 TESTED AT [address] (test jdnz=3682) [facility] [address] BASIC METABOLIC [id number] 06:30:00 Test Item Value Reference Range Comments SODIUM (BEAKER) (test 139 meq/L 136-145 gsfj=044) POTASSIUM (BEAKER) (test 3.8 meq/L 3.5-5.1 rsae=796) CHLORIDE (BEAKER) (test 105 meq/L 98-107 gzqh=195) CO2 (BEAKER) (test 26 meq/L 22-29 cyxy=777) BLOOD UREA NITROGEN 27 mg/dL 7-21 (BEAKER) (test qwtz=175) CREATININE (BEAKER) (test 1.25 mg/dL 0.57-1.25 vxxs=630) GLUCOSE RANDOM (BEAKER) 98 mg/dL 70-105 (test ghem=421) CALCIUM (BEAKER) (test 9.0 mg/dL 8.4-10.2 poea=299) EGFR (BEAKER) (test 55 mL/min/1.73 sq m ESTIMATED GFR IS NOT owcy=5257) ACCURATE CREATININE CLEARANCE IN PREDICTING GLOMERULAR FILTRATION RATE. ESTIMATED GFR IS NOT APPLICABLE FOR DIALYSIS PATIENTS. PROTHROMBIN TIME/[id number] 06:25:00 Test Item Value Reference Range Comments PROTIME (BEAKER) (test xexc=324) 16.7 seconds 11.7-14.7 INR (BEAKER) (test kicv=980) 1.3 <=5.9 RECOMMENDED COUMADIN/WARFARIN INR THERAPY RANGESSTANDARD DOSE: 2.0 - 3.0 Includes: PROPHYLAXIS forvenous thrombosis, systemic embolization; TREATMENT for venous thrombosis and/or pulmonary embolus.HIGH RISK: Target INR is 2.5-3.5 for patients with mechanical heart valves.While on warfarin.POCT-GLUCOSE [id number] 21:14:00 Test Item Value Reference Range Comments POC-GLUCOSE METER (BEAKER) 129 mg/dL 70-[address] [facility] [address] [facility] (test yicm=0079) [facility] [address] POCT-GLUCOSE [id number] 17:06:00 Test Item Value Reference Range Comments POC-GLUCOSE METER (BEAKER) 155 mg/dL 70-110 TESTED AT [address] (test jhqm=5523) [facility] [address] CBC W/PLT COUNT & AUTO [id number] 13:39:00 Test Item Value Reference Range Comments WHITE BLOOD CELL COUNT (BEAKER) (test kgoc=128) 3.9 K/ L 3.5-10.5 RED BLOOD CELL COUNT (BEAKER) (test ysun=049) 2.27 M/ L 4.63-6.08 HEMOGLOBIN (BEAKER) (test lopx=404) 7.5 GM/DL 13.7-17.5 HEMATOCRIT (BEAKER) (test olzf=490) 23.8 % 40.1-51.0 MEAN CORPUSCULAR VOLUME (BEAKER) (test dvxb=440) 104.8 fL 79.0-92.2 MEAN CORPUSCULAR HEMOGLOBIN (BEAKER) (test 33.0 pg 25.7-32.2 jkpq=446) MEAN CORPUSCULAR HEMOGLOBIN CONC (BEAKER) (test 31.5 GM/DL 32.3-36.5 iusj=598) RED CELL DISTRIBUTION WIDTH (BEAKER) (test 13.9 % 11.6-14.4 btby=477) PLATELET COUNT (BEAKER) (test htrs=798) 116 K/CU MM 150-450 MEAN PLATELET VOLUME (BEAKER) (test bkgr=772) 11.2 fL 9.4-12.4 NUCLEATED RED BLOOD CELLS (BEAKER) (test 0 /100 WBC 0-0 vged=767) (CELLAVISION MANUAL DIFF)2018-03-11 13:39:00 Test Item Value Reference Range Comments NEUTROPHILS - REL (CELLAVISION)(BEAKER) (test 64 % amkc=6768) LYMPHOCYTES - REL (CELLAVISION)(BEAKER) (test 16 % dhen=6876) MONOCYTES - REL (CELLAVISION)(BEAKER) (test 7 % mrab=0385) EOSINOPHILS - REL (CELLAVISION)(BEAKER) (test 4 % rsnv=4284) BASOPHILS - REL (CELLAVISION)(BEAKER) (test 4 % wtxj=2902) BANDS - REL (CELLAVISION)(BEAKER) (test 3 % 0-10 hyro=0282) ATYPICAL LYMPHOCYTES - REL (CELLAVISION)(BEAKER) 2 % 0-0 (test dtng=5681) NEUTROPHILS - ABS (CELLAVISION)(BEAKER) (test 2.50 K/ul 1.78-5.38 kugj=2372) LYMPHOCYTES - ABS (CELLAVISION)(BEAKER) (test 0.62 K/ul 1.32-3.57 pkwj=0156) MONOCYTES - ABS (CELLAVISION)(BEAKER) (test 0.27 K/uL 0.30-0.82 ocfj=0231) EOSINOPHILS - ABS (CELLAVISION)(BEAKER) (test 0.16 K/uL 0.04-0.54 nbnr=8837) BASOPHILS - ABS (CELLAVISION)(BEAKER) (test 0.16 K/uL 0.01-0.08 sipb=4110) BANDS - ABS (CELLAVISION)(BEAKER) (test 0.12 K/uL 0.00-0.80 hltf=3056) ATYPICAL LYMPHOCYTES - ABS (CELLAVISION)(BEAKER) 0.08 K/uL 0.00-0.00 (test xrmb=7926) TOTAL COUNTED (BEAKER) (test tqpa=1691) 100 MANUAL NRBC PER 100 CELLS (BEAKER) (test 2 /100 WBC 0-0 tyzn=0912) SMUDGE CELLS (BEAKER) (test crqs=0169) Present GIANT PLATELETS (BEAKER) (test kmie=743) Present POIKILOCYTES (BEAKER) (test frxq=344) 2+ moderate SCHISTOCYTES (BEAKER) (test rllv=786) 1+ few OVALOCYTES (BEAKER) (test otej=274) 1+ few MATTHEW CELLS (BEAKER) (test xktr=910) 1+ few PLATELET CONCENTRATION (CELLAVISION)(BEAKER) Adequate (test wigj=9121) Received comment: User comments: Slide comments:POCT-GLUCOSE [id number] 11: 37:00 Test Item Value Reference Range Comments POC-GLUCOSE METER (BEAKER) 140 mg/dL 70-110 TESTED AT [address] (test acku=6462) [place] [id number] POCT-GLUCOSE [id number] 07:55:00 Test Item Value Reference Range Comments POC-GLUCOSE METER (BEAKER) 139 mg/dL 70-110 TESTED AT [address] (test wjay=9458) [place] [id number] BASIC METABOLIC [id number] 05:47:00 Test Item Value Reference Range Comments SODIUM (BEAKER) (test 138 meq/L 136-145 vvpv=920) POTASSIUM (BEAKER) (test 3.7 meq/L 3.5-5.1 vfte=382) CHLORIDE (BEAKER) (test 105 meq/L 98-107 bhii=441) CO2 (BEAKER) (test 27 meq/L 22-29 wdbd=475) BLOOD UREA NITROGEN 32 mg/dL 7-21 (BEAKER) (test luvn=809) CREATININE (BEAKER) (test 1.14 mg/dL 0.57-1.25 blpb=740) GLUCOSE RANDOM (BEAKER) 109 mg/dL 70-105 (test sdir=360) CALCIUM (BEAKER) (test 8.7 mg/dL 8.4-10.2 ngfe=721) EGFR (BEAKER) (test 61 mL/min/1.73 sq m ESTIMATED GFR IS NOT bwer=9957) ACCURATE CREATININE CLEARANCE IN PREDICTING GLOMERULAR FILTRATION RATE. ESTIMATED GFR IS NOT APPLICABLE FOR DIALYSIS PATIENTS. PROTHROMBIN [id number] 05:28:00 Test Item Value Reference Range Comments PROTIME (BEAKER) (test wjel=513) 15.7 seconds 11.7-14.7 INR (BEAKER) (test dlvf=162) 1.2 <=5.9 RECOMMENDED COUMADIN/WARFARIN INR THERAPY RANGESSTANDARD DOSE: 2.0 - 3.0 Includes: PROPHYLAXIS forvenous thrombosis, systemic embolization; TREATMENT for venous thrombosis and/or pulmonary embolus.HIGH RISK: Target INR is 2.5-3.5 for patients with mechanical heart valves.While on warfarin.POCT-GLUCOSE [id number] 20:37:00 Test Item Value Reference Range Comments POC-GLUCOSE METER (BEAKER) 146 mg/dL 70-110 TESTED AT [address] (test dnmr=6833) [facility] [id number] POCT-GLUCOSE [id number] 17:28:00 Test Item Value Reference Range Comments POC-GLUCOSE METER (BEAKER) 156 mg/dL 70-110 TESTED AT [address] (test fmjs=0036) [facility] [id number] CBC W/PLT COUNT & AUTO [id number] 13:53:00 Test Item Value Reference Range Comments WHITE BLOOD CELL COUNT (BEAKER) (test gwuk=364) 4.1 K/ L 3.5-10.5 RED BLOOD CELL COUNT (BEAKER) (test cuqf=645) 2.37 M/ L 4.63-6.08 HEMOGLOBIN (BEAKER) (test ilwn=396) 7.8 GM/DL 13.7-17.5 HEMATOCRIT (BEAKER) (test rbau=986) 24.6 % 40.1-51.0 MEAN CORPUSCULAR VOLUME (BEAKER) (test hlry=874) 103.8 fL 79.0-92.2 MEAN CORPUSCULAR HEMOGLOBIN (BEAKER) (test 32.9 pg 25.7-32.2 vuju=806) MEAN CORPUSCULAR HEMOGLOBIN CONC (BEAKER) (test 31.7 GM/DL 32.3-36.5 wlcr=455) RED CELL DISTRIBUTION WIDTH (BEAKER) (test 14.2 % 11.6-14.4 vjoq=877) PLATELET COUNT (BEAKER) (test ygcx=993) 123 K/CU MM 150-450 MEAN PLATELET VOLUME (BEAKER) (test tjwj=019) 11.1 fL 9.4-12.4 NUCLEATED RED BLOOD CELLS (BEAKER) (test 0 /100 WBC 0-0 hmva=208) (CELLAVISION MANUAL DIFF)2018-03-10 13:53:00 Test Item Value Reference Range Comments NEUTROPHILS - REL (CELLAVISION)(BEAKER) (test 70 % uzzn=7279) LYMPHOCYTES - REL (CELLAVISION)(BEAKER) (test 19 % skql=9896) MONOCYTES - REL (CELLAVISION)(BEAKER) (test 8 % imbn=7504) BANDS - REL (CELLAVISION)(BEAKER) (test yheb=0967) 3 % 0-10 NEUTROPHILS - ABS (CELLAVISION)(BEAKER) (test 2.87 K/ul 1.78-5.38 ubvi=5949) LYMPHOCYTES - ABS (CELLAVISION)(BEAKER) (test 0.78 K/ul 1.32-3.57 hpot=1976) MONOCYTES - ABS (CELLAVISION)(BEAKER) (test 0.33 K/uL 0.30-0.82 ozrl=0764) BANDS - ABS (CELLAVISION)(BEAKER) (test qsoz=9405) 0.12 K/uL 0.00-0.80 TOTAL COUNTED (BEAKER) (test pmrw=2731) 100 SMUDGE CELLS (BEAKER) (test asjz=8261) Present GIANT PLATELETS (BEAKER) (test bcfn=831) Present ANISOCYTOSIS (BEAKER) (test ziqb=423) 1+ few MICROCYTES (BEAKER) (test kzdg=280) 1+ few POIKILOCYTES (BEAKER) (test ahgq=340) 1+ few SCHISTOCYTES (BEAKER) (test bgsz=131) 1+ few PLATELET CONCENTRATION (CELLAVISION)(BEAKER) (test Adequate tqti=2071) Received comment: User comments: Slide comments:POCT-GLUCOSE [id number] 12: 04:00 Test Item Value Reference Range Comments POC-GLUCOSE METER (BEAKER) 182 mg/dL 70-110 TESTED AT [facility] [address] (test qukb=1086) [facility] [address] POCT-GLUCOSE [id number] 08:09:00 Test Item Value Reference Range Comments POC-GLUCOSE METER (BEAKER) 111 mg/dL 70-[address] [facility] [address] (test hgsq=6824) [facility] [address] BASIC METABOLIC [id number] 07:02:00 Test Item Value Reference Range Comments SODIUM (BEAKER) (test 140 meq/L 136-145 pswo=823) POTASSIUM (BEAKER) (test 4.1 meq/L 3.5-5.1 jvss=318) CHLORIDE (BEAKER) (test 106 meq/L 98-107 qpot=317) CO2 (BEAKER) (test 28 meq/L 22-29 fwgj=915) BLOOD UREA NITROGEN 31 mg/dL 7-21 (BEAKER) (test pnhx=265) CREATININE (BEAKER) (test 1.14 mg/dL 0.57-1.25 zbyy=029) GLUCOSE RANDOM (BEAKER) 101 mg/dL 70-105 (test zslg=071) CALCIUM (BEAKER) (test 8.8 mg/dL 8.4-10.2 xjoy=943) EGFR (BEAKER) (test 61 mL/min/1.73 sq m ESTIMATED GFR IS NOT eens=7990) ACCURATE CREATININE CLEARANCE IN PREDICTING GLOMERULAR FILTRATION RATE. ESTIMATED GFR IS NOT APPLICABLE FOR DIALYSIS PATIENTS. B-TYPE NATRIURETIC FACTOR (BNP)2018-03-10 06:49:00 Test Item Value Reference Range Comments B-TYPE NATRIURETIC PEPTIDE (BEAKER) (test 132 pg/mL 0-100 oaxl=575) PROTHROMBIN [id number] 06:39:00 Test Item Value Reference Range Comments PROTIME (BEAKER) (test ghod=660) 15.3 seconds 11.7-14.7 INR (BEAKER) (test nqiv=379) 1.2 <=5.9 RECOMMENDED COUMADIN/WARFARIN INR THERAPY RANGESSTANDARD DOSE: 2.0 - 3.0 Includes: PROPHYLAXIS forvenous thrombosis, systemic embolization; TREATMENT for venous thrombosis and/or pulmonary embolus.HIGH RISK: Target INR is 2.5-3.5 for patients with mechanical heart valves.While on warfarin.POCT-GLUCOSE [id number] 22:04:00 Test Item Value Reference Range Comments POC-GLUCOSE METER (BEAKER) 162 mg/dL 70-[address] [facility] [address] [facility] (test kshk=7478) [facility] [address] POCT-GLUCOSE [id number] 18:15:00 Test Item Value Reference Range Comments POC-GLUCOSE METER (BEAKER) 127 mg/dL 70-[address] [facility] [address] [facility] (test beya=8359) [facility] [address] BASIC METABOLIC [id number] 08:18:00 Test Item Value Reference Range Comments SODIUM (BEAKER) (test 144 meq/L 136-145 sylh=750) POTASSIUM (BEAKER) (test 4.1 meq/L 3.5-5.1 lsme=134) CHLORIDE (BEAKER) (test 112 meq/L 98-107 djxk=742) CO2 (BEAKER) (test 27 meq/L 22-29 kiob=745) BLOOD UREA NITROGEN 30 mg/dL 7-21 (BEAKER) (test jnhb=818) CREATININE (BEAKER) (test 1.02 mg/dL 0.57-1.25 obns=010) GLUCOSE RANDOM (BEAKER) 110 mg/dL 70-105 (test tfmk=186) CALCIUM (BEAKER) (test 8.4 mg/dL 8.4-10.2 mhqc=144) EGFR (BEAKER) (test 69 mL/min/1.73 sq m ESTIMATED GFR IS NOT ucta=9688) ACCURATE CREATININE CLEARANCE IN PREDICTING GLOMERULAR FILTRATION RATE. ESTIMATED GFR IS NOT APPLICABLE FOR DIALYSIS PATIENTS. [id number] 08:18:00 Test Item Value Reference Range Comments MAGNESIUM (BEAKER) (test vnls=027) 2.2 mg/dL 1.6-2.6 CBC (HEMOGRAM ONLY)2018-03-09 08:03:00 Test Item Value Reference Range Comments WHITE BLOOD CELL COUNT (BEAKER) (test mopt=721) 4.3 K/ L 3.5-10.5 RED BLOOD CELL COUNT (BEAKER) (test kxsc=725) 2.36 M/ L 4.63-6.08 HEMOGLOBIN (BEAKER) (test tbwa=661) 7.9 GM/DL 13.7-17.5 HEMATOCRIT (BEAKER) (test uzyk=516) 24.9 % 40.1-51.0 MEAN CORPUSCULAR VOLUME (BEAKER) (test gkls=098) 105.5 fL 79.0-92.2 MEAN CORPUSCULAR HEMOGLOBIN (BEAKER) (test 33.5 pg 25.7-32.2 qred=994) MEAN CORPUSCULAR HEMOGLOBIN CONC (BEAKER) (test 31.7 GM/DL 32.3-36.5 vmie=152) RED CELL DISTRIBUTION WIDTH (BEAKER) (test 14.3 % 11.6-14.4 wlcz=947) PLATELET COUNT (BEAKER) (test ratf=057) 113 K/CU MM 150-450 MEAN PLATELET VOLUME (BEAKER) (test vvga=629) 11.4 fL 9.4-12.4 NUCLEATED RED BLOOD CELLS (BEAKER) (test 0 /100 WBC 0-0 mvrz=402) POCT-GLUCOSE [id number] 05:58:00 Test Item Value Reference Range Comments POC-GLUCOSE METER (BEAKER) 153 mg/dL 70-110 TESTED AT [address] (test mbsk=7747) [facility] [address] POCT-GLUCOSE [id number] 23:35:00 Test Item Value Reference Range Comments POC-GLUCOSE METER (BEAKER) 170 mg/dL 70-110 TESTED AT [address] (test rxrp=3117) [place] [id number] POCT-GLUCOSE [id number] 17:28:00 Test Item Value Reference Range Comments POC-GLUCOSE METER (BEAKER) 155 mg/dL 70-110 TESTED AT [address] (test ixmm=2031) [place] [id number] HEMOGLOBIN AND [id number] 17:16:00 Test Item Value Reference Range Comments HEMOGLOBIN (BEAKER) (test eyqg=518) 7.9 GM/DL 13.7-17.5 HEMATOCRIT (BEAKER) (test ofsh=776) 24.9 % 40.1-51.0 BLOOD [id number] 13:01:00 Test Item Value Reference Range Comments CULTURE (BEAKER) (test xdzb=2304) No growth in 5 days BLOOD [id number] 13:00:00 Test Item Value Reference Range Comments CULTURE (BEAKER) (test bygf=1224) No growth in 5 days POCT-GLUCOSE [id number] 11:55:00 Test Item Value Reference Range Comments POC-GLUCOSE METER (BEAKER) 157 mg/dL 70-110 TESTED AT [address] (test xajp=6727) [facility] [address] ANTI-MITOCHONDRIAL AB, REFLEX TO [id number] 10:22:00 Test Item Value Reference Range Comments SCAN RESULT (test lhho=[id number]) POCT-GLUCOSE [id number] 05:46:00 Test Item Value Reference Range Comments POC-GLUCOSE METER (BEAKER) 161 mg/dL 70-110 TESTED AT [address] (test bxgl=2548) [facility] [address] HEPATIC FUNCTION [id number] 04:08:00 Test Item Value Reference Range Comments TOTAL PROTEIN (BEAKER) (test hoiq=344) 5.6 gm/dL 6.0-8.3 ALBUMIN (BEAKER) (test xzgc=8823) 3.0 g/dL 3.5-5.0 BILIRUBIN TOTAL (BEAKER) (test jqqj=739) 1.7 mg/dL 0.2-1.2 BILIRUBIN DIRECT (BEAKER) (test mtam=802) 0.7 mg/dL 0.1-0.5 ALKALINE PHOSPHATASE (BEAKER) (test jgor=003) 117 U/L 40-150 AST (SGOT) (BEAKER) (test edjx=736) 52 U/L 5-34 ALT (SGPT) (BEAKER) (test imyo=690) 30 U/L 6-55 [id number] 04:03:00 Test Item Value Reference Range Comments PHOSPHORUS (BEAKER) (test ewel=851) 2.4 mg/dL 2.3-4.7 Check Serum Phosphorus level 4 hours after IV phosphorus replacement or 8 hours after PO replacementcompleted.[id number] 04:03:00 Test Item Value Reference Range Comments MAGNESIUM (BEAKER) (test fxej=949) 2.5 mg/dL 1.6-2.6 Check Serum Phosphorus level 4 hours after IV phosphorus replacement or 8 hours after PO replacementcompleted.BASIC METABOLIC [id number] 04:03:00 Test Item Value Reference Range Comments SODIUM (BEAKER) (test 145 meq/L 136-145 udbf=974) POTASSIUM (BEAKER) (test 4.2 meq/L 3.5-5.1 vlqh=870) CHLORIDE (BEAKER) (test 116 meq/L 98-107 kflw=224) CO2 (BEAKER) (test 24 meq/L 22-29 fuyn=653) BLOOD UREA NITROGEN 24 mg/dL 7-21 (BEAKER) (test nedz=624) CREATININE (BEAKER) (test 1.01 mg/dL 0.57-1.25 dhzo=425) GLUCOSE RANDOM (BEAKER) 138 mg/dL 70-105 (test wsaz=950) CALCIUM (BEAKER) (test 8.7 mg/dL 8.4-10.2 lnff=492) EGFR (BEAKER) (test 70 mL/min/1.73 sq m ESTIMATED GFR IS NOT hktj=9106) ACCURATE CREATININE CLEARANCE IN PREDICTING GLOMERULAR FILTRATION RATE. ESTIMATED GFR IS NOT APPLICABLE FOR DIALYSIS PATIENTS. Check Serum Phosphorus level 4 hours after IV phosphorus replacement or 8 hours after PO replacementcompleted.CBC W/PLT COUNT & AUTO [id number] 03:47:00 Test Item Value Reference Range Comments WHITE BLOOD CELL COUNT (BEAKER) (test hpca=275) 4.5 K/ L 3.5-10.5 RED BLOOD CELL COUNT (BEAKER) (test igjg=789) 2.21 M/ L 4.63-6.08 HEMOGLOBIN (BEAKER) (test uwvt=074) 7.2 GM/DL 13.7-17.5 HEMATOCRIT (BEAKER) (test tmwp=021) 23.5 % 40.1-51.0 MEAN CORPUSCULAR VOLUME (BEAKER) (test oavq=621) 106.3 fL 79.0-92.2 MEAN CORPUSCULAR HEMOGLOBIN (BEAKER) (test 32.6 pg 25.7-32.2 limc=812) MEAN CORPUSCULAR HEMOGLOBIN CONC (BEAKER) (test 30.6 GM/DL 32.3-36.5 uiof=818) RED CELL DISTRIBUTION WIDTH (BEAKER) (test 14.7 % 11.6-14.4 dxoy=072) PLATELET COUNT (BEAKER) (test iipf=875) 94 K/CU MM 150-450 MEAN PLATELET VOLUME (BEAKER) (test uiqm=675) 11.1 fL 9.4-12.4 NUCLEATED RED BLOOD CELLS (BEAKER) (test 0 /100 WBC 0-0 qtlr=843) NEUTROPHILS RELATIVE PERCENT (BEAKER) (test 62 % wnov=173) LYMPHOCYTES RELATIVE PERCENT (BEAKER) (test 18 % xbgk=517) MONOCYTES RELATIVE PERCENT (BEAKER) (test 12 % zzcj=676) EOSINOPHILS RELATIVE PERCENT (BEAKER) (test 8 % morv=572) BASOPHILS RELATIVE PERCENT (BEAKER) (test 0 % udjd=552) NEUTROPHILS ABSOLUTE COUNT (BEAKER) (test 2.80 K/ L 1.78-5.38 yync=048) LYMPHOCYTES ABSOLUTE COUNT (BEAKER) (test 0.81 K/ L 1.32-3.57 oeig=642) MONOCYTES ABSOLUTE COUNT (BEAKER) (test ihts=764) 0.52 K/ L 0.30-0.82 EOSINOPHILS ABSOLUTE COUNT (BEAKER) (test 0.37 K/ L 0.04-0.54 rljz=747) BASOPHILS ABSOLUTE COUNT (BEAKER) (test arpe=033) 0.02 K/ L 0.01-0.08 IMMATURE GRANULOCYTES-RELATIVE PERCENT (BEAKER) 0 % 0-1 (test ztcy=4076) HEMOGLOBIN AND [id number] 03:46:00 Test Item Value Reference Range Comments HEMOGLOBIN (BEAKER) (test ubfu=285) 7.7 GM/DL 13.7-17.5 HEMATOCRIT (BEAKER) (test thlz=607) 24.8 % 40.1-51.0 POCT-GLUCOSE [id number] 01:04:00 Test Item Value Reference Range Comments POC-GLUCOSE METER (BEAKER) 150 mg/dL 70-[address] [facility] [address] [facility] (test gyhc=0145) [facility] [address] SPUTUM CULTURE + GRAM [id number] 19:57:00 Test Item Value Reference Range Comments CULTURE (BEAKER) (test No growth xshs=5470) GRAM STAIN RESULT (BEAKER) 4+ WBCs (test xrcy=8540) GRAM STAIN RESULT (BEAKER) 0-5 epithelial cells (test nmwh=93908) GRAM STAIN RESULT (BEAKER) <1+ gram positive cocci in (test mnfn=68847) pairs HEMOGLOBIN AND [id number] 16:09:00 Test Item Value Reference Range Comments HEMOGLOBIN (BEAKER) (test ojir=744) 7.8 GM/DL 13.7-17.5 HEMATOCRIT (BEAKER) (test icjh=245) 25.1 % 40.1-51.0 POCT-GLUCOSE [id number] 16:06:00 Test Item Value Reference Range Comments POC-GLUCOSE METER (BEAKER) 143 mg/dL 70-[address] [facility] [address] [facility] (test irpq=1526) [facility] [address] POCT-GLUCOSE [id number] 11:55:00 Test Item Value Reference Range Comments POC-GLUCOSE METER (BEAKER) 148 mg/dL 70-110 TESTED AT [address] (test qazi=5118) [facility] [address] RAD, ABDOMEN/KUB, 1 VIEW [id number] 10:26:00Reason for exam:->Check position of NGTFINAL REPORT [...] MDReport Verified Date/Time: 03/07/2018 10:26:54 Reading Location: [address] Transitional Reading Room HEPATIC FUNCTION [id number] 09:14 :00 Test Item Value Reference Range Comments TOTAL PROTEIN (BEAKER) (test xnip=035) 5.5 gm/dL 6.0-8.3 ALBUMIN (BEAKER) (test gjve=9190) 2.9 g/dL 3.5-5.0 BILIRUBIN TOTAL (BEAKER) (test ccif=746) 1.8 mg/dL 0.2-1.2 BILIRUBIN DIRECT (BEAKER) (test ykyz=422) 0.7 mg/dL 0.1-0.5 ALKALINE PHOSPHATASE (BEAKER) (test qbjz=674) 95 U/L 40-150 AST (SGOT) (BEAKER) (test hcbc=988) 25 U/L 5-34 ALT (SGPT) (BEAKER) (test lvph=591) 15 U/L 6-55 CBC W/PLT COUNT & AUTO [id number] 06:53:00 Test Item Value Reference Range Comments WHITE BLOOD CELL COUNT 4.6 K/ L 3.5-10.5 (BEAKER) (test gnwb=976) RED BLOOD CELL COUNT (BEAKER) 2.46 M/ L 4.63-6.08 (test wivt=468) HEMOGLOBIN (BEAKER) (test 8.0 GM/DL 13.7-17.5 ezkp=409) HEMATOCRIT (BEAKER) (test 26.1 % 40.1-51.0 xhhm=179) MEAN CORPUSCULAR VOLUME 106.1 fL 79.0-92.2 Discordant result compared (BEAKER) (test suel=075) to previous result; clinical correlation required. MEAN CORPUSCULAR HEMOGLOBIN 32.5 pg 25.7-32.2 (BEAKER) (test simi=327) MEAN CORPUSCULAR HEMOGLOBIN 30.7 GM/DL 32.3-36.5 CONC (BEAKER) (test jnmv=189) RED CELL DISTRIBUTION WIDTH 15.1 % 11.6-14.4 (BEAKER) (test mskg=058) PLATELET COUNT (BEAKER) (test 96 K/CU MM 150-450 ymus=160) MEAN PLATELET VOLUME (BEAKER) 10.6 fL 9.4-12.4 (test eavz=252) NUCLEATED RED BLOOD CELLS 0 /100 WBC 0-0 (BEAKER) (test yldi=642) NEUTROPHILS RELATIVE PERCENT 67 % (BEAKER) (test xcfr=603) LYMPHOCYTES RELATIVE PERCENT 14 % (BEAKER) (test pogq=496) MONOCYTES RELATIVE PERCENT 12 % (BEAKER) (test rhgp=800) EOSINOPHILS RELATIVE PERCENT 6 % (BEAKER) (test cmyi=031) BASOPHILS RELATIVE PERCENT 0 % (BEAKER) (test xzqc=890) NEUTROPHILS ABSOLUTE COUNT 3.08 K/ L 1.78-5.38 (BEAKER) (test qhow=468) LYMPHOCYTES ABSOLUTE COUNT 0.66 K/ L 1.32-3.57 (BEAKER) (test otsu=584) MONOCYTES ABSOLUTE COUNT 0.55 K/ L 0.30-0.82 (BEAKER) (test cahg=185) EOSINOPHILS ABSOLUTE COUNT 0.28 K/ L 0.04-0.54 (BEAKER) (test rcpi=778) BASOPHILS ABSOLUTE COUNT 0.01 K/ L 0.01-0.08 (BEAKER) (test ybsr=805) IMMATURE GRANULOCYTES-RELATIVE 0 % 0-1 PERCENT (BEAKER) (test vahn=2173) POCT-GLUCOSE [id number] 06:23:00 Test Item Value Reference Range Comments POC-GLUCOSE METER (BEAKER) 125 mg/dL 70-[address] [facility] [address] (test egqj=7138) [facility] [address] [id number] 05:53:00 Test Item Value Reference Range Comments PHOSPHORUS (BEAKER) (test ycjk=729) 2.7 mg/dL 2.3-4.7 Check Serum Phosphorus level 4 hours after IV phosphorus replacement or 8 hours after PO replacementcompleted.[id number] 05:53:00 Test Item Value Reference Range Comments MAGNESIUM (BEAKER) (test bwrj=472) 2.6 mg/dL 1.6-2.6 Check Serum Phosphorus level 4 hours after IV phosphorus replacement or 8 hours after PO replacementcompleted.BASIC METABOLIC [id number] 05:53:00 Test Item Value Reference Range Comments SODIUM (BEAKER) (test 146 meq/L 136-145 wiea=280) POTASSIUM (BEAKER) (test 4.2 meq/L 3.5-5.1 sdua=361) CHLORIDE (BEAKER) (test 119 meq/L 98-107 txfy=366) CO2 (BEAKER) (test 23 meq/L 22-29 pamo=066) BLOOD UREA NITROGEN 20 mg/dL 7-21 (BEAKER) (test ojer=004) CREATININE (BEAKER) (test 0.93 mg/dL 0.57-1.25 sedt=437) GLUCOSE RANDOM (BEAKER) 121 mg/dL 70-105 (test gpmm=987) CALCIUM (BEAKER) (test 8.6 mg/dL 8.4-10.2 juwy=344) EGFR (BEAKER) (test 77 mL/min/1.73 sq m ESTIMATED GFR IS NOT xpny=2661) ACCURATE CREATININE CLEARANCE IN PREDICTING GLOMERULAR FILTRATION RATE. ESTIMATED GFR IS NOT APPLICABLE FOR DIALYSIS PATIENTS. Check Serum Phosphorus level 4 hours after IV phosphorus replacement or 8 hours after PO replacementcompleted.HEMOGLOBIN AND [id number] 05:29:00 Test Item Value Reference Range Comments HEMOGLOBIN (BEAKER) (test xsyn=079) 8.0 GM/DL 13.7-17.5 HEMATOCRIT (BEAKER) (test eqht=160) 26.1 % 40.1-51.0 HEMOGLOBIN AND [id number] 23:58:00 Test Item Value Reference Range Comments HEMOGLOBIN (BEAKER) (test wpbr=871) 6.8 GM/DL 13.7-17.5 HEMATOCRIT (BEAKER) (test mvum=410) 22.5 % 40.1-51.0 MRSA [id number] 23:57:00 Test Item Value Reference Range Comments CULTURE (BEAKER) (test mron=4755) No MRSA isolated POCT-GLUCOSE [id number] 22:48:00 Test Item Value Reference Range Comments POC-GLUCOSE METER (BEAKER) 168 mg/dL 70-110 TESTED AT [address] (test cbir=0214) [place] [address] POCT-GLUCOSE [id number] 18:01:00 Test Item Value Reference Range Comments POC-GLUCOSE METER (BEAKER) 162 mg/dL 70-110 TESTED AT [address] (test ugrb=0908) [place] [address] HEMOGLOBIN AND [id number] 12:49:00 Test Item Value Reference Range Comments HEMOGLOBIN (BEAKER) (test sptv=336) 7.4 GM/DL 13.7-17.5 HEMATOCRIT (BEAKER) (test jvtm=331) 23.9 % 40.1-51.0 STOOL CULTURE + SHIGA [id number] 10:14:00 Test Item Value Reference Range Comments CULTURE (BEAKER) (test No Salmonella, Shigella or fdvi=4627) Campylobacter isolated POCT-GLUCOSE [id number] 09:55:00 Test Item Value Reference Range Comments POC-GLUCOSE METER (BEAKER) 143 mg/dL 70-110 TESTED AT [address] (test legc=1733) [place] [address] CBC W/PLT COUNT & AUTO [id number] 07:15:00 Test Item Value Reference Range Comments WHITE BLOOD CELL COUNT (BEAKER) (test vprc=869) 4.5 K/ L 3.5-10.5 RED BLOOD CELL COUNT (BEAKER) (test lmqt=540) 2.16 M/ L 4.63-6.08 HEMOGLOBIN (BEAKER) (test aqxz=280) 7.1 GM/DL 13.7-17.5 HEMATOCRIT (BEAKER) (test iemm=744) 23.8 % 40.1-51.0 MEAN CORPUSCULAR VOLUME (BEAKER) (test wlcd=726) 110.2 fL 79.0-92.2 MEAN CORPUSCULAR HEMOGLOBIN (BEAKER) (test 32.9 pg 25.7-32.2 yljn=614) MEAN CORPUSCULAR HEMOGLOBIN CONC (BEAKER) (test 29.8 GM/DL 32.3-36.5 hygt=192) RED CELL DISTRIBUTION WIDTH (BEAKER) (test 14.4 % 11.6-14.4 wbtx=100) PLATELET COUNT (BEAKER) (test noga=361) 93 K/CU MM 150-450 MEAN PLATELET VOLUME (BEAKER) (test ycqq=541) 10.9 fL 9.4-12.4 NUCLEATED RED BLOOD CELLS (BEAKER) (test 0 /100 WBC 0-0 wkqx=045) NEUTROPHILS RELATIVE PERCENT (BEAKER) (test 66 % gaak=108) LYMPHOCYTES RELATIVE PERCENT (BEAKER) (test 14 % cisb=093) MONOCYTES RELATIVE PERCENT (BEAKER) (test 10 % ebsh=414) EOSINOPHILS RELATIVE PERCENT (BEAKER) (test 9 % hsim=411) BASOPHILS RELATIVE PERCENT (BEAKER) (test 0 % apvy=629) NEUTROPHILS ABSOLUTE COUNT (BEAKER) (test 2.99 K/ L 1.78-5.38 onxo=799) LYMPHOCYTES ABSOLUTE COUNT (BEAKER) (test 0.64 K/ L 1.32-3.57 fjmz=847) MONOCYTES ABSOLUTE COUNT (BEAKER) (test cuzx=604) 0.45 K/ L 0.30-0.82 EOSINOPHILS ABSOLUTE COUNT (BEAKER) (test 0.42 K/ L 0.04-0.54 lmdl=246) BASOPHILS ABSOLUTE COUNT (BEAKER) (test mytr=507) 0.01 K/ L 0.01-0.08 IMMATURE GRANULOCYTES-RELATIVE PERCENT (BEAKER) 0 % 0-1 (test bxlh=4083) [id number] 05:47:00 Test Item Value Reference Range Comments PHOSPHORUS (BEAKER) (test yheh=977) 2.8 mg/dL 2.3-4.7 Check Serum Phosphorus level 4 hours after IV phosphorus replacement or 8 hours after PO replacementcompleted.[id number] 05:47:00 Test Item Value Reference Range Comments MAGNESIUM (BEAKER) (test euxn=403) 2.6 mg/dL 1.6-2.6 Check Serum Phosphorus level 4 hours after IV phosphorus replacement or 8 hours after PO replacementcompleted.BASIC METABOLIC [id number] 05:47:00 Test Item Value Reference Range Comments SODIUM (BEAKER) (test 146 meq/L 136-145 fjug=807) POTASSIUM (BEAKER) (test 4.1 meq/L 3.5-5.1 kdqt=000) CHLORIDE (BEAKER) (test 119 meq/L 98-107 nfyf=423) CO2 (BEAKER) (test 23 meq/L 22-29 zqtd=853) BLOOD UREA NITROGEN 21 mg/dL 7-21 (BEAKER) (test aswf=352) CREATININE (BEAKER) (test 0.95 mg/dL 0.57-1.25 wosc=361) GLUCOSE RANDOM (BEAKER) 122 mg/dL 70-105 (test lgxf=399) CALCIUM (BEAKER) (test 8.3 mg/dL 8.4-10.2 kkfw=391) EGFR (BEAKER) (test 75 mL/min/1.73 sq m ESTIMATED GFR IS NOT rsof=6228) ACCURATE CREATININE CLEARANCE IN PREDICTING GLOMERULAR FILTRATION RATE. ESTIMATED GFR IS NOT APPLICABLE FOR DIALYSIS PATIENTS. Check Serum Phosphorus level 4 hours after IV phosphorus replacement or 8 hours after PO replacementcompleted.RAD, CHEST, 1 VIEW, NON [id number] 05:00: 00Reason for exam:->resp failureShould this be [...] Jha Verified Date/Time: 03/06/2018 05:00:57 Reading Location: [address] Transitional Reading Room POCT-GLUCOSE [id number] 04:50:00 Test Item Value Reference Range Comments POC-GLUCOSE METER (BEAKER) 133 mg/dL 70-110 TESTED AT [address] (test dnun=0842) [facility] [address] HEMOGLOBIN AND [id number] 23:14:00 Test Item Value Reference Range Comments HEMOGLOBIN (BEAKER) (test nsks=270) 7.1 GM/DL 13.7-17.5 HEMATOCRIT (BEAKER) (test gtpb=470) 23.5 % 40.1-51.0 POCT-GLUCOSE [id number] 23:12:00 Test Item Value Reference Range Comments POC-GLUCOSE METER (BEAKER) 146 mg/dL 70-110 TESTED AT [address] (test wokh=5762) [place] [id number] POCT-GLUCOSE [id number] 22:11:00 Test Item Value Reference Range Comments POC-GLUCOSE METER (BEAKER) 164 mg/dL 70-110 TESTED AT [address] (test bwqo=0287) [place] [id number] HEMOGLOBIN AND [id number] 18:51:00 Test Item Value Reference Range Comments HEMOGLOBIN (BEAKER) (test wglm=311) 7.3 GM/DL 13.7-17.5 HEMATOCRIT (BEAKER) (test tclh=828) 23.8 % 40.1-51.0 POCT-GLUCOSE [id number] 17:35:00 Test Item Value Reference Range Comments POC-GLUCOSE METER (BEAKER) 169 mg/dL 70-110 TESTED AT [address] (test twpm=9302) [facility] [id number] OCCULT BLOOD, [id number] 16:20:00 Test Item Value Reference Range Comments FECAL OCCULT BLOOD (BEAKER) (test wwgh=953) Positive Negative HEPATIC FUNCTION [id number] 13:39:00 Test Item Value Reference Range Comments TOTAL PROTEIN (BEAKER) (test wrcg=880) 5.7 gm/dL 6.0-8.3 ALBUMIN (BEAKER) (test khtd=8982) 3.2 g/dL 3.5-5.0 BILIRUBIN TOTAL (BEAKER) (test dgsg=181) 2.1 mg/dL 0.2-1.2 BILIRUBIN DIRECT (BEAKER) (test ldpr=305) 0.6 mg/dL 0.1-0.5 ALKALINE PHOSPHATASE (BEAKER) (test pwoa=977) 98 U/L 40-150 AST (SGOT) (BEAKER) (test lkqt=669) 24 U/L 5-34 ALT (SGPT) (BEAKER) (test ikjv=324) 14 U/L 6-55 BASIC METABOLIC [id number] 13:39:00 Test Item Value Reference Range Comments SODIUM (BEAKER) (test 149 meq/L 136-145 eyoo=556) POTASSIUM (BEAKER) (test 3.7 meq/L 3.5-5.1 uuyw=076) CHLORIDE (BEAKER) (test 121 meq/L 98-107 pwiw=497) CO2 (BEAKER) (test 25 meq/L 22-29 nvnv=698) BLOOD UREA NITROGEN 25 mg/dL 7-21 (BEAKER) (test zwpl=565) CREATININE (BEAKER) (test 1.01 mg/dL 0.57-1.25 awhr=880) GLUCOSE RANDOM (BEAKER) 164 mg/dL 70-105 (test izij=760) CALCIUM (BEAKER) (test 8.7 mg/dL 8.4-10.2 lacr=500) EGFR (BEAKER) (test 70 mL/min/1.73 sq m ESTIMATED GFR IS NOT jipx=1733) ACCURATE CREATININE CLEARANCE IN PREDICTING GLOMERULAR FILTRATION RATE. ESTIMATED GFR IS NOT APPLICABLE FOR DIALYSIS PATIENTS. VANCOMYCIN LEVEL, [id number] 13:35:00 Test Item Value Reference Range Comments VANCOMYCIN RANDOM (BEAKER) (test aklc=476) 10.1 ug/mL Reference Range: No NormalsHEMOGLOBIN AND [id number] 12:47:00 Test Item Value Reference Range Comments HEMOGLOBIN (BEAKER) (test egkd=560) 7.3 GM/DL 13.7-17.5 HEMATOCRIT (BEAKER) (test edue=435) 23.7 % 40.1-51.0 POCT-GLUCOSE [id number] 12:14:00 Test Item Value Reference Range Comments POC-GLUCOSE METER (BEAKER) 189 mg/dL 70-110 TESTED AT [address] (test zzvp=9705) [facility] [id number] ANTI-NUCLEAR ANTIBODY (STEPHY)2018-03-05 10:39:00 Test Item Value Reference Range Comments ANTI-NUCLEAR ANTIBODY (STEPHY) (BEAKER) (test Negative Negative yfeb=523) Test performed by IFA method.Test performed by IFA method.B-TYPE NATRIURETIC FACTOR (BNP)2018-03-05 08:21:00 Test Item Value Reference Range Comments B-TYPE NATRIURETIC PEPTIDE (BEAKER) (test 222 pg/mL 0-100 zawa=679) [id number] 08:07:00 Test Item Value Reference Range Comments AMMONIA (BEAKER) (test kgyf=380) 38 mol/L 18-72 RAD, CHEST, 1 VIEW, NON [id number] 06:28:00Reason for exam:->resp failureShould this be performed at the bedside?->YesFINAL REPORT RAD, CHEST, 1 VIEW, NON DEPT INDICATION: resp failure COMPARISON: Prior day's exam FINDINGS: Portable frontal view of the chest. IMPRESSION: Support Lines: Stable. Lungs and pleura: Unchanged airspace and pleural opacities. No pneumothorax.Heart and mediastinum: Stable contours. Stable surgical changes.Additional findings: None. Signed: David Jha Verified Date/Time: 03/05/2018 06:28:24 Reading Location: [address] Transitional Reading Room SHIGA TOXIN [id number] 06:12:00 Test Item Value Reference Range Comments SHIGA TOXIN 1 (BEAKER) (test sazv=8282) Not detected Not detected SHIGA TOXIN 2 (BEAKER) (test ssco=2192) Not detected Not detected CBC W/PLT COUNT & AUTO [id number] 05:32:00 Test Item Value Reference Range Comments WHITE BLOOD CELL COUNT (BEAKER) (test pfsu=869) 6.4 K/ L 3.5-10.5 RED BLOOD CELL COUNT (BEAKER) (test ihxb=358) 2.20 M/ L 4.63-6.08 HEMOGLOBIN (BEAKER) (test ohwb=389) 7.4 GM/DL 13.7-17.5 HEMATOCRIT (BEAKER) (test xdbn=446) 24.0 % 40.1-51.0 MEAN CORPUSCULAR VOLUME (BEAKER) (test vrft=854) 109.1 fL 79.0-92.2 MEAN CORPUSCULAR HEMOGLOBIN (BEAKER) (test 33.6 pg 25.7-32.2 pykp=871) MEAN CORPUSCULAR HEMOGLOBIN CONC (BEAKER) (test 30.8 GM/DL 32.3-36.5 xltj=000) RED CELL DISTRIBUTION WIDTH (BEAKER) (test 15.0 % 11.6-14.4 ednv=392) PLATELET COUNT (BEAKER) (test knas=608) 90 K/CU MM 150-450 MEAN PLATELET VOLUME (BEAKER) (test gown=634) 11.0 fL 9.4-12.4 NUCLEATED RED BLOOD CELLS (BEAKER) (test 0 /100 WBC 0-0 ntyy=731) NEUTROPHILS RELATIVE PERCENT (BEAKER) (test 71 % oosd=702) LYMPHOCYTES RELATIVE PERCENT (BEAKER) (test 12 % czhq=105) MONOCYTES RELATIVE PERCENT (BEAKER) (test 12 % gkau=137) EOSINOPHILS RELATIVE PERCENT (BEAKER) (test 5 % gmpe=138) BASOPHILS RELATIVE PERCENT (BEAKER) (test 0 % gqta=688) NEUTROPHILS ABSOLUTE COUNT (BEAKER) (test 4.55 K/ L 1.78-5.38 mrjg=654) LYMPHOCYTES ABSOLUTE COUNT (BEAKER) (test 0.74 K/ L 1.32-3.57 zbcy=627) MONOCYTES ABSOLUTE COUNT (BEAKER) (test hncx=556) 0.78 K/ L 0.30-0.82 EOSINOPHILS ABSOLUTE COUNT (BEAKER) (test 0.30 K/ L 0.04-0.54 swvq=943) BASOPHILS ABSOLUTE COUNT (BEAKER) (test iptz=103) 0.02 K/ L 0.01-0.08 IMMATURE GRANULOCYTES-RELATIVE PERCENT (BEAKER) 0 % 0-1 (test vzrl=4587) BASIC METABOLIC [id number] 05:31:00 Test Item Value Reference Range Comments SODIUM (BEAKER) (test 150 meq/L 136-145 tnzj=722) POTASSIUM (BEAKER) (test 3.8 meq/L 3.5-5.1 gtyb=825) CHLORIDE (BEAKER) (test 123 meq/L 98-107 bbob=141) CO2 (BEAKER) (test 21 meq/L 22-29 gfpl=960) BLOOD UREA NITROGEN 30 mg/dL 7-21 (BEAKER) (test zxnr=684) CREATININE (BEAKER) (test 1.10 mg/dL 0.57-1.25 lmdo=236) GLUCOSE RANDOM (BEAKER) 148 mg/dL 70-105 (test owrz=941) CALCIUM (BEAKER) (test 8.9 mg/dL 8.4-10.2 pgdy=283) EGFR (BEAKER) (test 63 mL/min/1.73 sq m ESTIMATED GFR IS NOT pylj=9635) ACCURATE CREATININE CLEARANCE IN PREDICTING GLOMERULAR FILTRATION RATE. ESTIMATED GFR IS NOT APPLICABLE FOR DIALYSIS PATIENTS. Check Serum Phosphorus level 4 hours after IV phosphorus replacement or 8 hours after PO replacementcompleted.BLOOD GAS, [id number] 05:29:00 Test Item Value Reference Range Comments PH ARTERIAL (BEAKER) (test vcwv=823) 7.42 7.35-7.45 PCO2 ARTERIAL (BEAKER) (test dqca=045) 36 mmHg 35-45 PO2 ARTERIAL (BEAKER) (test hkoh=043) 193 mmHg 80-90 O2 SATURATION ARTERIAL (BEAKER) (test wnrn=070) 99.3 % 96.0-97.0 HCO3 ARTERIAL (BEAKER) (test apyh=480) 23 mmol/L 21-29 BASE EXCESS ARTERIAL (BEAKER) (test wxko=910) -1.6 mmol/L -2.0-3.0 PATIENT TEMPERATURE (BEAKER) (test xwdu=4151) 37.4 C FIO2 (BEAKER) (test bdhq=4433) 30.0 % [id number] 05:28:00 Test Item Value Reference Range Comments PHOSPHORUS (BEAKER) (test lvsx=769) 2.4 mg/dL 2.3-4.7 Check Serum Phosphorus level 4 hours after IV phosphorus replacement or 8 hours after PO replacementcompleted.[id number] 05:28:00 Test Item Value Reference Range Comments MAGNESIUM (BEAKER) (test kval=837) 2.8 mg/dL 1.6-2.6 Check Serum Phosphorus level 4 hours after IV phosphorus replacement or 8 hours after PO replacementcompleted.POCT-GLUCOSE [id number] 04:14:00 Test Item Value Reference Range Comments POC-GLUCOSE METER (BEAKER) 164 mg/dL 70-[address] [facility] [address] [facility] (test nwdy=2720) [facility] [address] POCT-GLUCOSE [id number] 21:41:00 Test Item Value Reference Range Comments POC-GLUCOSE METER (BEAKER) 161 mg/dL 70-110 TESTED AT [place] [id number] [facility] (test rbwr=6092) [place] [id number] POCT-GLUCOSE [id number] 17:49:00 Test Item Value Reference Range Comments POC-GLUCOSE METER (BEAKER) 163 mg/dL 70-110 TESTED AT [address] (test bmzz=1390) [place] [id number] [place], [id number] 16:57:00FINAL REPORT CT of the abdomen and [...] Verified Date/Time: 03/04/2018 16:57 :24 Reading Location: [facility] B1 C013Y CT Body Reading Room STOOL PATH [id number] 14: 52:00 Test Item Value Reference Range Comments PATHOGEN EXAM CHARGED (BEAKER) (test ezwf=0459) Done BASIC METABOLIC [id number] 12:28:00 Test Item Value Reference Range Comments SODIUM (BEAKER) (test 150 meq/L 136-145 fawf=371) POTASSIUM (BEAKER) (test 4.2 meq/L 3.5-5.1 nrjt=473) CHLORIDE (BEAKER) (test 122 meq/L 98-107 bhbm=066) CO2 (BEAKER) (test 26 meq/L 22-29 rvzf=975) BLOOD UREA NITROGEN 33 mg/dL 7-21 (BEAKER) (test ivhk=442) CREATININE (BEAKER) (test 1.23 mg/dL 0.57-1.25 wmnl=402) GLUCOSE RANDOM (BEAKER) 129 mg/dL 70-105 (test jglv=959) CALCIUM (BEAKER) (test 9.0 mg/dL 8.4-10.2 gkna=146) EGFR (BEAKER) (test 56 mL/min/1.73 sq m ESTIMATED GFR IS NOT mhgn=8738) ACCURATE CREATININE CLEARANCE IN PREDICTING GLOMERULAR FILTRATION RATE. ESTIMATED GFR IS NOT APPLICABLE FOR DIALYSIS PATIENTS. HEMOGLOBIN AND [id number] 12:08:00 Test Item Value Reference Range Comments HEMOGLOBIN (BEAKER) (test dkbm=928) 8.2 GM/DL 13.7-17.5 HEMATOCRIT (BEAKER) (test bjqc=727) 26.2 % 40.1-51.0 POCT-GLUCOSE [id number] 11:16:00 Test Item Value Reference Range Comments POC-GLUCOSE METER (BEAKER) 159 mg/dL 70-[address] [facility] [address] [place] [address] (test omtd=2404) [facility] [address] LACTIC ACID, ARTERIAL, WHOLE [id number] 10:35:00 Test Item Value Reference Range Comments LACTATE BLOOD ARTERIAL (2) (BEAKER) (test 0.7 mmol/L 0.5-2.2 ctxp=8564) [id number] 08:12:00 Test Item Value Reference Range Comments AMMONIA (BEAKER) (test vngp=761) 44 mol/L 18-72 RAD, CHEST, 1 VIEW, NON [id number] 05:12:00Reason for exam:->resp failureShould this be performed [...] Verified Date/Time: 03/04/2018 05:12 :43 Reading Location: [address] Transitional Reading Room BASIC METABOLIC [id number] 05:00:00 Test Item Value Reference Range Comments SODIUM (BEAKER) (test 152 meq/L 136-145 igxk=405) POTASSIUM (BEAKER) (test 3.1 meq/L 3.5-5.1 zmkg=238) CHLORIDE (BEAKER) (test 121 meq/L 98-107 smoy=337) CO2 (BEAKER) (test 26 meq/L 22-29 huqi=139) BLOOD UREA NITROGEN 33 mg/dL 7-21 (BEAKER) (test cceh=420) CREATININE (BEAKER) (test 1.17 mg/dL 0.57-1.25 gvdx=557) GLUCOSE RANDOM (BEAKER) 136 mg/dL 70-105 (test qvjs=499) CALCIUM (BEAKER) (test 9.2 mg/dL 8.4-10.2 qsmk=262) EGFR (BEAKER) (test 59 mL/min/1.73 sq m ESTIMATED GFR IS NOT lxtt=3993) ACCURATE CREATININE CLEARANCE IN PREDICTING GLOMERULAR FILTRATION RATE. ESTIMATED GFR IS NOT APPLICABLE FOR DIALYSIS PATIENTS. [id number] 04:55:00 Test Item Value Reference Range Comments MAGNESIUM (BEAKER) (test dyyc=153) 3.1 mg/dL 1.6-2.6 CBC W/PLT COUNT & AUTO [id number] 04:38:00 Test Item Value Reference Range Comments WHITE BLOOD CELL COUNT (BEAKER) (test bpwv=214) 7.6 K/ L 3.5-10.5 RED BLOOD CELL COUNT (BEAKER) (test ttaa=189) 2.39 M/ L 4.63-6.08 HEMOGLOBIN (BEAKER) (test jtqg=786) 7.8 GM/DL 13.7-17.5 HEMATOCRIT (BEAKER) (test skta=229) 25.3 % 40.1-51.0 MEAN CORPUSCULAR VOLUME (BEAKER) (test gahn=248) 105.9 fL 79.0-92.2 MEAN CORPUSCULAR HEMOGLOBIN (BEAKER) (test 32.6 pg 25.7-32.2 ipvc=623) MEAN CORPUSCULAR HEMOGLOBIN CONC (BEAKER) (test 30.8 GM/DL 32.3-36.5 tfqk=586) RED CELL DISTRIBUTION WIDTH (BEAKER) (test 15.6 % 11.6-14.4 sevk=737) PLATELET COUNT (BEAKER) (test tojr=000) 119 K/CU MM 150-450 MEAN PLATELET VOLUME (BEAKER) (test gcfv=744) 10.8 fL 9.4-12.4 NUCLEATED RED BLOOD CELLS (BEAKER) (test 0 /100 WBC 0-0 zeyy=302) NEUTROPHILS RELATIVE PERCENT (BEAKER) (test 72 % fksw=002) LYMPHOCYTES RELATIVE PERCENT (BEAKER) (test 10 % lqti=377) MONOCYTES RELATIVE PERCENT (BEAKER) (test 13 % tkql=731) EOSINOPHILS RELATIVE PERCENT (BEAKER) (test 4 % anuo=449) BASOPHILS RELATIVE PERCENT (BEAKER) (test 1 % iudo=195) NEUTROPHILS ABSOLUTE COUNT (BEAKER) (test 5.49 K/ L 1.78-5.38 amvz=519) LYMPHOCYTES ABSOLUTE COUNT (BEAKER) (test 0.78 K/ L 1.32-3.57 xzeb=053) MONOCYTES ABSOLUTE COUNT (BEAKER) (test 0.98 K/ L 0.30-0.82 ucho=776) EOSINOPHILS ABSOLUTE COUNT (BEAKER) (test 0.31 K/ L 0.04-0.54 bxud=823) BASOPHILS ABSOLUTE COUNT (BEAKER) (test 0.04 K/ L 0.01-0.08 uffm=348) IMMATURE GRANULOCYTES-RELATIVE PERCENT (BEAKER) 0 % 0-1 (test xdbe=1725) BLOOD GAS, [id number] 04:23:00 Test Item Value Reference Range Comments PH ARTERIAL (BEAKER) (test wrab=666) 7.47 7.35-7.45 PCO2 ARTERIAL (BEAKER) (test kcfs=349) 33 mmHg 35-45 PO2 ARTERIAL (BEAKER) (test veon=726) 278 mmHg 80-90 O2 SATURATION ARTERIAL (BEAKER) (test jkdb=964) 99.7 % 96.0-97.0 HCO3 ARTERIAL (BEAKER) (test pkpl=466) 24 mmol/L 21-29 BASE EXCESS ARTERIAL (BEAKER) (test cgvl=757) 0.0 mmol/L -2.0-3.0 PATIENT TEMPERATURE (BEAKER) (test lvut=0048) 36.2 C FIO2 (BEAKER) (test jkbi=1405) 40.0 % POCT-GLUCOSE [id number] 22:12:00 Test Item Value Reference Range Comments POC-GLUCOSE METER (BEAKER) 171 mg/dL 70-[address] [facility] [address] [facility] (test qvuk=6835) [facility] [address] TROPONIN [id number] 22:08:00 Test Item Value Reference Range Comments TROPONIN I (BEAKER) (test edqz=389) 0.08 ng/mL 0.00-0.03 Troponin I (TnI) levels [...] neurological disease, and persistent tachyarrhythmia.HEPATITIS A ANTIBODY, [id number] 20: 40:00 Test Item Value Reference Range Comments HEPATITIS A IGG ANTIBODY (BEAKER) (test tyae=7725) Reactive Nonreactive ALPHA FETOPROTEIN (AFP), TUMOR [id number] 20:40:00 Test Item Value Reference Range Comments ALPHA-FETOPROTEIN (BEAKER) (test jhej=9173) < ng/mL <10.0 CARCINOEMBRYONIC ANTIGEN (CEA)2018-03-03 20:36:00 Test Item Value Reference Range Comments CARCINOEMBRYONIC ANTIGEN (BEAKER) (test bqjv=356) 2.2 ng/mL 0.0-5.0 HEPATITIS B CORE ANTIBODY, [id number] 20:36:00 Test Item Value Reference Range Comments HEPATITIS B CORE TOTAL ANTIBODY (BEAKER) (test Nonreactive Nonreactive emjs=017) HEPATITIS B SURFACE [id number] 20:23:00 Test Item Value Reference Range Comments HEPATITIS B SURFACE ANTIBODY (BEAKER) (test < mIU/mL <8.0 fxjg=603) HEPATITIS B SURFACE [id number] 20:22:00 Test Item Value Reference Range Comments HEPATITIS B SURFACE ANTIGEN (2) (BEAKER) (test Nonreactive Nonreactive nkgj=2157) HEPATITIS C [id number] 20:22:00 Test Item Value Reference Range Comments HEPATITIS C ANTIBODY (BEAKER) (test afuk=538) Nonreactive Nonreactive POCT-GLUCOSE [id number] 19:30:00 Test Item Value Reference Range Comments POC-GLUCOSE METER (BEAKER) 169 mg/dL 70-110 TESTED AT [address] (test ghep=5460) [facility] [address] RAD, CHEST, 1 VIEW, NON [id number] 19:12:00Reason for exam:-> intubatedShould this be performed [...] Verified Date/Time: 03/03/2018 19: 12:40 Reading Location: [address] Reading Room FECAL [id number] 18:56:00 Test Item Value Reference Range Comments FECAL LEUKOCYTES (BEAKER) No fecal leukocytes seen No fecal leukocytes seen (test lzoa=243) RAD, ABDOMEN/KUB, 1 VIEW [id number] 18:41:00Reason for exam:->NGT placementFINAL REPORT Abdomen date 03/03/2018 Comment: Frontal view of the abdomen demonstrates a nasogastric tube present with tip noted in the in the body of the stomach. Signed: Israel Barr MDReport Verified Date/Time: 03/03/2018 18:41:41 Reading Location: [facility] C013W Consult ReadingRoom 06: 41 [id number] 18:13:00 Test Item Value Reference Range Comments FERRITIN (BEAKER) (test ktzm=662) 28 ng/mL 5-275 TROPONIN [id number] 17:26:00 Test Item Value Reference Range Comments TROPONIN I (BEAKER) (test qnyx=188) 0.06 ng/mL 0.00-0.03 Troponin I (TnI) levels [...] acute neurological disease, and persistent tachyarrhythmia.HEPATIC FUNCTION [id number] 17:19: 00 Test Item Value Reference Range Comments TOTAL PROTEIN (BEAKER) (test kjhd=026) 6.5 gm/dL 6.0-8.3 ALBUMIN (BEAKER) (test zkcl=7874) 3.7 g/dL 3.5-5.0 BILIRUBIN TOTAL (BEAKER) (test fexw=714) 2.5 mg/dL 0.2-1.2 BILIRUBIN DIRECT (BEAKER) (test tgxa=838) 0.8 mg/dL 0.1-0.5 ALKALINE PHOSPHATASE (BEAKER) (test kfve=363) 107 U/L 40-150 AST (SGOT) (BEAKER) (test wknk=179) 24 U/L 5-34 ALT (SGPT) (BEAKER) (test tscz=799) 13 U/L 6-55 Specimen slightly ictericIRON, TIBC, % SAT. (WITHOUT FERRITIN)2018-03-03 17:19: 00 Test Item Value Reference Range Comments IRON (BEAKER) (test kspw=149) 78.0 ug/dL 40.0-160.0 TOTAL IRON BINDING CAPACITY (BEAKER) (test 294 ug/dL 250-450 lwjs=278) IRON % SATURATION (2) (BEAKER) (test rwce=5373) 27 % 20-55 BASIC METABOLIC [id number] 17:19:00 Test Item Value Reference Range Comments SODIUM (BEAKER) (test 149 meq/L 136-145 kztm=972) POTASSIUM (BEAKER) (test 3.8 meq/L 3.5-5.1 scxr=349) CHLORIDE (BEAKER) (test 117 meq/L 98-107 kqjj=344) CO2 (BEAKER) (test 23 meq/L 22-29 qfnc=908) BLOOD UREA NITROGEN 30 mg/dL 7-21 (BEAKER) (test yhyt=606) CREATININE (BEAKER) (test 1.06 mg/dL 0.57-1.25 ptew=826) GLUCOSE RANDOM (BEAKER) 171 mg/dL 70-105 (test rlkg=012) CALCIUM (BEAKER) (test 9.3 mg/dL 8.4-10.2 ddkn=850) EGFR (BEAKER) (test 66 mL/min/1.73 sq m ESTIMATED GFR IS NOT ecjs=8367) ACCURATE CREATININE CLEARANCE IN PREDICTING GLOMERULAR FILTRATION RATE. ESTIMATED GFR IS NOT APPLICABLE FOR DIALYSIS PATIENTS. Specimen slightly ictericHEMOGLOBIN AND [id number] 17:15:00 Test Item Value Reference Range Comments HEMOGLOBIN (BEAKER) (test svbt=121) 8.3 GM/DL 13.7-17.5 HEMATOCRIT (BEAKER) (test ftpc=423) 25.7 % 40.1-51.0 PROTHROMBIN TIME/[id number] 16:53:00 Test Item Value Reference Range Comments PROTIME (BEAKER) (test pfpe=496) 16.1 seconds 11.7-14.7 INR (BEAKER) (test uoci=395) 1.3 <=5.9 RECOMMENDED COUMADIN/WARFARIN INR THERAPY RANGESSTANDARD DOSE: 2.0 - 3.0 Includes: PROPHYLAXIS forvenous thrombosis, systemic embolization; TREATMENT for venous thrombosis and/or pulmonary embolus.HIGH RISK: Target INR is 2.5-3.5 for patients with mechanical heart valves.[id number] 16:53:00 Test Item Value Reference Range Comments FIBRINOGEN LEVEL (BEAKER) (test pktv=962) 333 mg/dl 225-434 [id number] 16:51:00 Test Item Value Reference Range Comments PROCALCITONIN (BEAKER) (test gknn=1128) < ng/mL <0.05 SEPSIS RISK (ng/mL)Low: 0.05-0.50Intermediate: 0.51-2.00High: & gt;=2.01BLOOD GAS, [id number] 16:07:00 Test Item Value Reference Range Comments PH ARTERIAL (BEAKER) (test jujg=082) 7.51 7.35-7.45 PCO2 ARTERIAL (BEAKER) (test yfyc=135) 32 mmHg 35-45 PO2 ARTERIAL (BEAKER) (test kysq=641) 317 mmHg 80-90 O2 SATURATION ARTERIAL (BEAKER) (test ahcf=294) 99.8 % 96.0-97.0 HCO3 ARTERIAL (BEAKER) (test zjmj=181) 25 mmol/L 21-29 BASE EXCESS ARTERIAL (BEAKER) (test sejo=965) 2.0 mmol/L -2.0-3.0 PATIENT TEMPERATURE (BEAKER) (test gger=8044) 37.5 C FIO2 (BEAKER) (test zqwk=9815) 60.0 % EEG AWAKE AND [id number] 14:50:00Reason for exam:->altered mental statusEEG REPORT: [facility] Arriaga[facility] Date of EEDate of report: EEG start time: 1216EEG end time: 1237EEG #: [id number] No: [id number] ICD Code: #: R41.82 Altered mental status, unspecified (ICD 9: 780.97)CPT Code: #: 89095: 03. EEG coma or sleep only; 20-40 [...] also be associated withother settings of widespread SHROUDMAN insults, including the aftermath of prolonged seizures. Intermittent attenuations reflect cortical suppression.Clinical Fellow: Henri YañezNeurophysiologist: Wil Mathias 02: 50 PMPOCT-LACTIC ACID, [id number] 14:13:00 Test Item Value Reference Range Comments POC-LACTIC ACID, ARTERIAL 1.2 mmol/L 0.4-1.3 TESTED AT [place] [address] [address]ERTNER (BEAKER) (test ipxj=6397) [place] [address] POCT-BLOOD GASES, [id number] 14:13:00 Test Item Value Reference Range Comments TEMP, CELSIUS-POC (BEAKER) 37.0 (test wtlk=3794) FIO2-POC (BEAKER) (test TESTED AT [address] gugp=9756) [place] [address] PH, ARTERIAL-POC (BEAKER) 7.496 7.350-7.450 (test jvxa=4881) PCO2, ARTERIAL-POC (BEAKER) 31.0 mm Hg 35.0-45.0 (test odiz=3574) PO2, ARTERIAL-POC (BEAKER) 66.0 mm Hg 80.0-90.0 (test towh=4065) SO2, ARTERIAL-POC (BEAKER) 95.0 % 96.0-97.0 (test rzmz=9160) HCO3, ARTERIAL-POC (BEAKER) 23.9 meq/L 21.0-29.0 (test ivka=2417) BASE EXCESS, ARTERIAL-POC 1.0 meq/L -2.0-3.0 (BEAKER) (test grhe=7513) [id number] 14:13:00 Test Item Value Reference Range Comments POC-SODIUM (BEAKER) (test 151 meq/L 135-148 TESTED AT [address] lftm=9545) [place] [address] [id number] 14:13:00 Test Item Value Reference Range Comments POC-POTASSIUM (BEAKER) (test 3.7 meq/L 3.6-5.5 TESTED AT [address] zddx=6632) [place] [address] [id number] 14:13:00 Test Item Value Reference Range Comments POC-GLUCOSE (BEAKER) (test 170 mg/dL 70-110 TESTED AT [address] arct=8978) [place] [address] POCT-CALCIUM [id number] 14:13:00 Test Item Value Reference Range Comments POC-CALCIUM IONIZED (BEAKER) 1.20 mmol/L 1.12-1.27 TESTED AT [address] (test zrcs=3618) [place] [address] [id number] 14:13:00 Test Item Value Reference Range Comments POC-HEMATOCRIT (BEAKER) (test 24 % 40-50 TESTED AT [address] pcnl=6775) [place] [address] [id number] 14:13:00 Test Item Value Reference Range Comments POC-HEMOGLOBIN (BEAKER) 8.2 g/dL 13.0-16.8 TESTED AT [address] (test vlea=4993) [place] [address]TESTED AT [place] [address] VITAMIN B12 AND [id number] 13:00:00 Test Item Value Reference Range Comments VITAMIN B12 (BEAKER) (test qptd=378) 715 pg/mL 213-816 FOLATE (BEAKER) (test hqaj=111) 17.0 ng/mL >=7.0 POCT-GLUCOSE [id number] 12:55:00 Test Item Value Reference Range Comments POC-GLUCOSE METER (BEAKER) 190 mg/dL 70-110 TESTED AT [address] (test rcoo=2103) [place] [address] [id number] 11:41:00 Test Item Value Reference Range Comments PROCALCITONIN (BEAKER) (test ypqw=8385) < ng/mL <0.05 SEPSIS RISK (ng/mL)Low: 0.05-0.50Intermediate: 0.51-2.00High: & gt;=2.01URINALYSIS W/ REFLEX URINE [id number] 11:27:00 Test Item Value Reference Range Comments COLOR (BEAKER) (test mdod=751) Yellow CLARITY (BEAKER) (test rptp=779) Clear SPECIFIC GRAVITY UA (BEAKER) (test vjxy=217) 1.016 1.001-1.035 PH UA (BEAKER) (test avvg=300) 6.5 5.0-8.0 PROTEIN UA (BEAKER) (test rpwi=235) 50 mg/dL Negative GLUCOSE UA (BEAKER) (test dlqi=486) Negative Negative KETONES UA (BEAKER) (test oljb=790) Trace Negative BILIRUBIN UA (BEAKER) (test dowc=795) Negative Negative BLOOD UA (BEAKER) (test bmof=750) Negative Negative NITRITE UA (BEAKER) (test luqy=800) Negative Negative LEUKOCYTE ESTERASE UA (BEAKER) (test swcz=268) Negative Negative UROBILINOGEN UA (BEAKER) (test vhdl=516) 0.2 mg/dL 0.2-1.0 RBC UA (BEAKER) (test ctjq=785) 4 /HPF WBC UA (BEAKER) (test hfdu=523) 2 /HPF BACTERIA (BEAKER) (test wllj=057) Moderate SQUAMOUS EPITHELIAL (BEAKER) (test zdhs=435) 1 /HPF SOURCE(BEAKER) (test brrc=2934) TSH/FREE T4 IF [id number] 11:19:00 Test Item Value Reference Range Comments THYROID STIMULATING HORMONE (BEAKER) (test 2.67 uIU/mL 0.35-4.94 zccb=839) TROPONIN [id number] 11:04:00 Test Item Value Reference Range Comments TROPONIN I (BEAKER) (test rdsn=062) 0.07 ng/mL 0.00-0.03 Troponin I (TnI) levels [...] failure, acidosis, acute neurological disease, and persistent tachyarrhythmia.[id number] 11:00:00 Test Item Value Reference Range Comments SODIUM (BEAKER) (test bbft=001) 148 meq/L 136-145 HEMOGLOBIN [id number] 10:53:00 Test Item Value Reference Range Comments HEMOGLOBIN A1C (BEAKER) (test htxf=318) 6.2 % 4.3-6.1 [id number] 10:45:00 Test Item Value Reference Range Comments AMMONIA (BEAKER) (test xreb=252) 98 mol/L 18-72 C. DIFFICILE GDH [id number] 09:57:00 Test Item Value Reference Range Comments CDT TOXIN (test Negative Negative ivfa=[id number]) CDT GDH ANTIGEN (test Positive Negative C. difficile present but toxin xjla=[id number]) not detected. Indicates colonization with non-toxigenic strain or level of toxin below detectable levels. No need for enteric isolation. Treatment is rarely needed (only when strong clinical suspicion for Clostridium difficile infection) Testing performed by [employer] Rapid Cassette Assay. For GDH, published sensitivity of the assay is 98.7% compared to cytotoxicity testing. For Toxin AB, published sensitivity is 87.8% and specificity 99.4% compared to cytotoxicity testing.Verification of kit performance was done by the [facility] prior to clinical use.BASIC METABOLIC [id number] 07:28:00 Test Item Value Reference Range Comments SODIUM (BEAKER) (test 133 meq/L 136-145 yvzg=315) POTASSIUM (BEAKER) (test 2.8 meq/L 3.5-5.1 rbvh=442) CHLORIDE (BEAKER) (test 108 meq/L 98-107 vowl=192) CO2 (BEAKER) (test 18 meq/L 22-29 husp=029) BLOOD UREA NITROGEN 25 mg/dL 7-21 (BEAKER) (test gnch=661) CREATININE (BEAKER) (test 0.78 mg/dL 0.57-1.25 anos=680) GLUCOSE RANDOM (BEAKER) 124 mg/dL 70-105 (test wqvg=820) CALCIUM (BEAKER) (test 7.1 mg/dL 8.4-10.2 kjwa=185) EGFR (BEAKER) (test 94 mL/min/1.73 sq m ESTIMATED GFR IS NOT tayl=1833) ACCURATE CREATININE CLEARANCE IN PREDICTING GLOMERULAR FILTRATION RATE. ESTIMATED GFR IS NOT APPLICABLE FOR DIALYSIS PATIENTS. B-TYPE NATRIURETIC FACTOR (BNP)2018-03-03 06:58:00 Test Item Value Reference Range Comments B-TYPE NATRIURETIC PEPTIDE (BEAKER) (test 444 pg/mL 0-100 xvwg=606) [id number] 06:52:00 Test Item Value Reference Range Comments PHOSPHORUS (BEAKER) (test baal=759) 2.3 mg/dL 2.3-4.7 [id number] 06:52:00 Test Item Value Reference Range Comments MAGNESIUM (BEAKER) (test lvgu=573) 1.7 mg/dL 1.6-2.6 CBC (HEMOGRAM ONLY)2018-03-03 06:38:00 Test Item Value Reference Range Comments WHITE BLOOD CELL COUNT (BEAKER) (test emap=493) 5.8 K/ L 3.5-10.5 RED BLOOD CELL COUNT (BEAKER) (test olxj=136) 2.09 M/ L 4.63-6.08 HEMOGLOBIN (BEAKER) (test ytvs=265) 7.0 GM/DL 13.7-17.5 HEMATOCRIT (BEAKER) (test mvgi=428) 22.2 % 40.1-51.0 MEAN CORPUSCULAR VOLUME (BEAKER) (test ifxl=760) 106.2 fL 79.0-92.2 MEAN CORPUSCULAR HEMOGLOBIN (BEAKER) (test 33.5 pg 25.7-32.2 jihl=521) MEAN CORPUSCULAR HEMOGLOBIN CONC (BEAKER) (test 31.5 GM/DL 32.3-36.5 xviq=116) RED CELL DISTRIBUTION WIDTH (BEAKER) (test 14.4 % 11.6-14.4 hywa=725) PLATELET COUNT (BEAKER) (test kkog=383) 91 K/CU MM 150-450 MEAN PLATELET VOLUME (BEAKER) (test evip=752) 10.9 fL 9.4-12.4 NUCLEATED RED BLOOD CELLS (BEAKER) (test 0 /100 WBC 0-0 ttfn=120) MR, MRA, BRAIN, WITHOUT [id number] 05:21:00Reason for exam:-> Ischemic Stroke EvaluationFINAL REPORT MRI Brain without contrast Clinical History: Ischemic Stroke EvaluationAMS, Afib Technique: MRI of the brain utilizing axial T2, FLAIR, GRE, DWI; sagittal and coronal T1- weighted images. MRA of the head utilizing 3-D brth-cg-yenydb technique, with 3- D reconstructions. MRA of the neck utilizing 2-D and 3-D sero-ko-qldkti technique, with 3-D reconstructions. Comparisons: None Findings:MRI [...] MRA head: No evidence for a major [place] proximal branch vessel occlusion. MRA [...] MDReport Verified Date/Time: 03/03/2018 05:21:46 Reading Location: [address] Transitional Reading Room MR, MRA, NECK, WITHOUT IV [id number] 05:21: 00Reason for exam:->Ischemic Stroke EvaluationFINAL REPORT MRI Brain without contrast Clinical History: Ischemic Stroke EvaluationAMS, Afib Technique: MRI of the brain utilizing axial T2, FLAIR, GRE, DWI; sagittal and coronal T1-weighted images. MRA of the head utilizing 3-D time -of-flight technique, with 3-D reconstructions. MRA of the neck utilizing 2-D and 3-D knzh-zo-qrtkpy technique, with 3-D reconstructions. Comparisons: None Findings:MRI [...] MRA head: No evidence for a major [place] proximal branch vessel occlusion. MRA [...] MDReport Verified Date/Time: 03/03/2018 05:21:46 Reading Location: [address] Reading Room MR, BRAIN, WITHOUT [id number] 05 :21:00Reason for exam:->Ischemic Stroke EvaluationFINAL REPORT MRI Brain without contrast Clinical History: Ischemic Stroke EvaluationAMS, Afib Technique: MRI of the brain utilizing axial T2, FLAIR, GRE, DWI; sagittal and coronal T1-weighted images. MRA of the head utilizing 3-D time -of-flight technique, with 3-D reconstructions. MRA of the neck utilizing 2-D and 3-D cyap-fc-qiohcj technique, with 3-D reconstructions. Comparisons: None Findings:MRI [...] MRA head: No evidence for a major [place] proximal branch vessel occlusion. MRA [...] Jha Verified Date/Time: 03/03/2018 05:21:46 Reading Location: [address] Reading Room POCT-GLUCOSE [id number] 05:15:00 Test Item Value Reference Range Comments POC-GLUCOSE METER (BEAKER) 207 mg/dL 70-110 TESTED AT [address] (test posz=3803) [facility] [id number] RAD, CHEST, 1 VIEW, NON [id number] 01:11:00Reason for exam:->AMSShould this be performed at [...] MDReport Verified Date/Time: 2018 01:11:47 Reading Location: [address] Reading Room URINALYSIS WITH MICROSCOPIC IF [id number] 00:58:00 Test Item Value Reference Range Comments COLOR (BEAKER) (test pmos=298) Yellow CLARITY (BEAKER) (test aazl=209) Clear SPECIFIC GRAVITY UA (BEAKER) (test ibrr=631) 1.018 1.001-1.035 PH UA (BEAKER) (test wecn=372) 6.5 5.0-8.0 PROTEIN UA (BEAKER) (test fjnd=004) 30 mg/dL Negative GLUCOSE UA (BEAKER) (test kcrd=290) Negative Negative KETONES UA (BEAKER) (test pdwy=508) Trace Negative BILIRUBIN UA (BEAKER) (test ntux=502) Negative Negative BLOOD UA (BEAKER) (test xiaw=630) Negative Negative NITRITE UA (BEAKER) (test itsg=966) Negative Negative LEUKOCYTE ESTERASE UA (BEAKER) (test tpfj=948) Negative Negative UROBILINOGEN UA (BEAKER) (test ralj=599) 0.2 mg/dL 0.2-1.0 SOURCE(BEAKER) (test wjlv=4181) URINALYSIS [id number] 00:58:00 Test Item Value Reference Range Comments RBC UA (BEAKER) (test vjex=784) 1 /HPF WBC UA (BEAKER) (test cnlk=202) 1 /HPF SQUAMOUS EPITHELIAL (BEAKER) (test gjef=717) < /HPF AMORPHOUS CRYSTALS (BEAKER) (test gngr=2840) Occasional CT, BRAIN/STROKE [id number] 23:16:00FINAL REPORT CT Head without contrast CLINICAL [...] Jha Verified Date/Time: 03/02/2018 23:16:55 Reading Location: [address] Reading Room LACTIC ACID, VENOUS, WHOLE [id number] 22:01:00 Test Item Value Reference Range Comments LACTATE BLOOD VENOUS (2) (BEAKER) (test 1.6 mmol/L 0.5-2.2 sdhj=5872) POCT-GLUCOSE [id number] 21:31:00 Test Item Value Reference Range Comments POC-GLUCOSE METER (BEAKER) 207 mg/dL 70-110 TESTED AT [address] (test lyor=8581) [facility] [address] OCCULT BLOOD, [id number] 19:48:00 Test Item Value Reference Range Comments FECAL OCCULT BLOOD (BEAKER) (test nige=980) Positive Negative BASIC METABOLIC [id number] 17:26:00 Test Item Value Reference Range Comments SODIUM (BEAKER) (test 147 meq/L 136-145 skwh=032) POTASSIUM (BEAKER) (test 3.9 meq/L 3.5-5.1 fruv=164) CHLORIDE (BEAKER) (test 114 meq/L 98-107 vdcz=878) CO2 (BEAKER) (test 24 meq/L 22-29 scwh=201) BLOOD UREA NITROGEN 33 mg/dL 7-21 (BEAKER) (test xjhc=642) CREATININE (BEAKER) (test 1.12 mg/dL 0.57-1.25 djak=711) GLUCOSE RANDOM (BEAKER) 176 mg/dL 70-105 (test shxg=290) CALCIUM (BEAKER) (test 9.6 mg/dL 8.4-10.2 cqev=300) EGFR (BEAKER) (test 62 mL/min/1.73 sq m ESTIMATED GFR IS NOT rvzc=0045) ACCURATE CREATININE CLEARANCE IN PREDICTING GLOMERULAR FILTRATION RATE. ESTIMATED GFR IS NOT APPLICABLE FOR DIALYSIS PATIENTS. HEMOGLOBIN AND [id number] 17:09:00 Test Item Value Reference Range Comments HEMOGLOBIN (BEAKER) (test khaw=069) 8.2 GM/DL 13.7-17.5 HEMATOCRIT (BEAKER) (test dvtn=368) 25.7 % 40.1-51.0 POCT-GLUCOSE [id number] 16:40:00 Test Item Value Reference Range Comments POC-GLUCOSE METER (BEAKER) 212 mg/dL 70-[address] [facility] [address] [facility] (test splc=8461) [facility] [address] CT, BRAIN, WITHOUT [id number] 12:26:00FINAL REPORT CT head without contrast 03/02/2018 [...] Gaona Verified Date/Time: 03/02/2018 12:26:23 Reading Location: [facility] C013V Neuro Reading Room HEMOGLOBIN AND [id number] 12:14:00 Test Item Value Reference Range Comments HEMOGLOBIN (BEAKER) (test oqvi=981) 8.3 GM/DL 13.7-17.5 HEMATOCRIT (BEAKER) (test dlal=816) 25.9 % 40.1-51.0 POCT-GLUCOSE [id number] 10:26:00 Test Item Value Reference Range Comments POC-GLUCOSE METER (BEAKER) 178 mg/dL 70-[address] [facility] [address] [facility] (test dzif=7185) [facility] [address] [id number] 05:10:00 Test Item Value Reference Range Comments MAGNESIUM (BEAKER) (test dpbg=239) 2.2 mg/dL 1.6-2.6 BASIC METABOLIC [id number] 05:10:00 Test Item Value Reference Range Comments SODIUM (BEAKER) (test 147 meq/L 136-145 quox=246) POTASSIUM (BEAKER) (test 3.3 meq/L 3.5-5.1 glaa=842) CHLORIDE (BEAKER) (test 111 meq/L 98-107 uqhd=378) CO2 (BEAKER) (test 25 meq/L 22-29 wqpb=741) BLOOD UREA NITROGEN 37 mg/dL 7-21 (BEAKER) (test sxeo=136) CREATININE (BEAKER) (test 1.06 mg/dL 0.57-1.25 hnfd=595) GLUCOSE RANDOM (BEAKER) 150 mg/dL 70-105 (test twzp=737) CALCIUM (BEAKER) (test 9.3 mg/dL 8.4-10.2 noyb=062) EGFR (BEAKER) (test 66 mL/min/1.73 sq m ESTIMATED GFR IS NOT gncu=8983) ACCURATE CREATININE CLEARANCE IN PREDICTING GLOMERULAR FILTRATION RATE. ESTIMATED GFR IS NOT APPLICABLE FOR DIALYSIS PATIENTS. CBC (HEMOGRAM ONLY)2018-03-02 04:53:00 Test Item Value Reference Range Comments WHITE BLOOD CELL COUNT (BEAKER) (test inev=199) 4.9 K/ L 3.5-10.5 RED BLOOD CELL COUNT (BEAKER) (test dexd=573) 2.39 M/ L 4.63-6.08 HEMOGLOBIN (BEAKER) (test lvir=177) 8.1 GM/DL 13.7-17.5 HEMATOCRIT (BEAKER) (test aavb=234) 24.7 % 40.1-51.0 MEAN CORPUSCULAR VOLUME (BEAKER) (test zmio=410) 103.3 fL 79.0-92.2 MEAN CORPUSCULAR HEMOGLOBIN (BEAKER) (test 33.9 pg 25.7-32.2 brsm=118) MEAN CORPUSCULAR HEMOGLOBIN CONC (BEAKER) (test 32.8 GM/DL 32.3-36.5 twcn=592) RED CELL DISTRIBUTION WIDTH (BEAKER) (test 13.7 % 11.6-14.4 ecxk=077) PLATELET COUNT (BEAKER) (test xoku=142) 99 K/CU MM 150-450 MEAN PLATELET VOLUME (BEAKER) (test skru=444) 10.9 fL 9.4-12.4 NUCLEATED RED BLOOD CELLS (BEAKER) (test 0 /100 WBC 0-0 grkv=768) BASIC METABOLIC [id number] 06:30:00 Test Item Value Reference Range Comments SODIUM (BEAKER) (test 130 meq/L 136-145 bywa=853) POTASSIUM (BEAKER) (test 4.2 meq/L 3.5-5.1 vbdt=141) CHLORIDE (BEAKER) (test 99 meq/L 98-107 pgqb=351) CO2 (BEAKER) (test 23 meq/L 22-29 dtnm=193) BLOOD UREA NITROGEN 25 mg/dL 7-21 (BEAKER) (test pskn=362) CREATININE (BEAKER) (test 1.64 mg/dL 0.57-1.25 pbdb=893) GLUCOSE RANDOM (BEAKER) 154 mg/dL 70-105 (test zpnx=054) CALCIUM (BEAKER) (test 8.7 mg/dL 8.4-10.2 nwey=702) EGFR (BEAKER) (test 40 mL/min/1.73 sq m ESTIMATED GFR IS NOT slak=1283) ACCURATE CREATININE CLEARANCE IN PREDICTING GLOMERULAR FILTRATION RATE. ESTIMATED GFR IS NOT APPLICABLE FOR DIALYSIS PATIENTS. CBC W/PLT COUNT & AUTO [id number] 06:30:00 Test Item Value Reference Range Comments WHITE BLOOD CELL COUNT (BEAKER) (test zozf=619) 4.6 K/ L 3.5-10.5 RED BLOOD CELL COUNT (BEAKER) (test oarl=934) 2.50 M/ L 4.63-6.08 HEMOGLOBIN (BEAKER) (test bkck=770) 8.4 GM/DL 13.7-17.5 HEMATOCRIT (BEAKER) (test panq=375) 26.3 % 40.1-51.0 MEAN CORPUSCULAR VOLUME (BEAKER) (test mlrq=913) 105.2 fL 79.0-92.2 MEAN CORPUSCULAR HEMOGLOBIN (BEAKER) (test 33.6 pg 25.7-32.2 mdgi=686) MEAN CORPUSCULAR HEMOGLOBIN CONC (BEAKER) (test 31.9 GM/DL 32.3-36.5 skvs=608) RED CELL DISTRIBUTION WIDTH (BEAKER) (test 15.6 % 11.6-14.4 njpa=511) PLATELET COUNT (BEAKER) (test pgwi=475) 62 K/CU MM 150-450 MEAN PLATELET VOLUME (BEAKER) (test ioip=407) 10.9 fL 9.4-12.4 NUCLEATED RED BLOOD CELLS (BEAKER) (test 0 /100 WBC 0-0 nibk=882) NEUTROPHILS RELATIVE PERCENT (BEAKER) (test 62 % vskl=932) LYMPHOCYTES RELATIVE PERCENT (BEAKER) (test 18 % avhn=351) MONOCYTES RELATIVE PERCENT (BEAKER) (test 17 % hyet=436) EOSINOPHILS RELATIVE PERCENT (BEAKER) (test 3 % cmkk=679) BASOPHILS RELATIVE PERCENT (BEAKER) (test 0 % lhht=215) NEUTROPHILS ABSOLUTE COUNT (BEAKER) (test 2.88 K/ L 1.78-5.38 bfzr=691) LYMPHOCYTES ABSOLUTE COUNT (BEAKER) (test 0.82 K/ L 1.32-3.57 zwfj=521) MONOCYTES ABSOLUTE COUNT (BEAKER) (test sdma=637) 0.78 K/ L 0.30-0.82 EOSINOPHILS ABSOLUTE COUNT (BEAKER) (test 0.12 K/ L 0.04-0.54 opwq=046) BASOPHILS ABSOLUTE COUNT (BEAKER) (test snkk=942) 0.01 K/ L 0.01-0.08 IMMATURE GRANULOCYTES-RELATIVE PERCENT (BEAKER) 0 % 0-1 (test bluf=4769) RAD, CHEST, 1 VIEW, NON [id number] 04:10:00post-operative day 1Reason for exam:->chfShould this be [...] MDReport Verified Date/Time: 09/11/2017 04:10:08 Reading Location: [address] Reading Room BASIC METABOLIC [id number] 04:02:00 Test Item Value Reference Range Comments SODIUM (BEAKER) (test 136 meq/L 136-145 rdkj=772) POTASSIUM (BEAKER) (test 3.8 meq/L 3.5-5.1 nzre=426) CHLORIDE (BEAKER) (test 104 meq/L 98-107 plis=404) CO2 (BEAKER) (test 22 meq/L 22-29 nohq=285) BLOOD UREA NITROGEN 16 mg/dL 7-21 (BEAKER) (test hkkx=916) CREATININE (BEAKER) (test 0.92 mg/dL 0.57-1.25 hfvs=895) GLUCOSE RANDOM (BEAKER) 132 mg/dL 70-105 (test hvwg=081) CALCIUM (BEAKER) (test 8.9 mg/dL 8.4-10.2 okpd=946) EGFR (BEAKER) (test 78 mL/min/1.73 sq m ESTIMATED GFR IS NOT lwqo=1978) ACCURATE CREATININE CLEARANCE IN PREDICTING GLOMERULAR FILTRATION RATE. ESTIMATED GFR IS NOT APPLICABLE FOR DIALYSIS PATIENTS. Specimen slightly ictericCBC W/PLT COUNT & AUTO [id number] 03:48 :00 Test Item Value Reference Range Comments WHITE BLOOD CELL COUNT (BEAKER) (test iqrt=459) 5.7 K/ L 3.5-10.5 RED BLOOD CELL COUNT (BEAKER) (test vbih=654) 2.73 M/ L 4.63-6.08 HEMOGLOBIN (BEAKER) (test byfy=078) 9.2 GM/DL 13.7-17.5 HEMATOCRIT (BEAKER) (test aqid=957) 29.1 % 40.1-51.0 MEAN CORPUSCULAR VOLUME (BEAKER) (test lyhe=540) 106.6 fL 79.0-92.2 MEAN CORPUSCULAR HEMOGLOBIN (BEAKER) (test 33.7 pg 25.7-32.2 vgop=373) MEAN CORPUSCULAR HEMOGLOBIN CONC (BEAKER) (test 31.6 GM/DL 32.3-36.5 cuzw=873) RED CELL DISTRIBUTION WIDTH (BEAKER) (test 15.4 % 11.6-14.4 cedb=897) PLATELET COUNT (BEAKER) (test xnsb=414) 84 K/CU MM 150-450 MEAN PLATELET VOLUME (BEAKER) (test qkaw=236) 10.3 fL 9.4-12.4 NUCLEATED RED BLOOD CELLS (BEAKER) (test 0 /100 WBC 0-0 ljfr=190) NEUTROPHILS RELATIVE PERCENT (BEAKER) (test 76 % aaij=027) LYMPHOCYTES RELATIVE PERCENT (BEAKER) (test 10 % cgkq=254) MONOCYTES RELATIVE PERCENT (BEAKER) (test 10 % kubh=242) EOSINOPHILS RELATIVE PERCENT (BEAKER) (test 3 % oowf=497) BASOPHILS RELATIVE PERCENT (BEAKER) (test 0 % rwoy=410) NEUTROPHILS ABSOLUTE COUNT (BEAKER) (test 4.33 K/ L 1.78-5.38 ukou=254) LYMPHOCYTES ABSOLUTE COUNT (BEAKER) (test 0.59 K/ L 1.32-3.57 fyfs=904) MONOCYTES ABSOLUTE COUNT (BEAKER) (test smrg=015) 0.57 K/ L 0.30-0.82 EOSINOPHILS ABSOLUTE COUNT (BEAKER) (test 0.16 K/ L 0.04-0.54 ruqc=779) BASOPHILS ABSOLUTE COUNT (BEAKER) (test xshw=049) 0.02 K/ L 0.01-0.08 IMMATURE GRANULOCYTES-RELATIVE PERCENT (BEAKER) 0 % 0-1 (test oibt=7024) [id number] 16:36:00 Test Item Value Reference Range Comments ACTIVATED CLOTTING TIME [address] [facility] [address] (BEAKER) (test swdl=650) [place] [address] [id number] 16:02:00 Test Item Value Reference Range Comments ACTIVATED CLOTTING TIME 279 sec TESTED AT [place] [address] [facility] (BEAKER[facility] (test hnym=442) [place] [address] [id number] 16:02:00 Test Item Value Reference Range Comments ACTIVATED CLOTTING TIME 252 sec TESTED AT [address] (BEAKER) (test advi=951) [place] [address] B-TYPE NATRIURETIC FACTOR (BNP)2017-08-24 15:17:00 Test Item Value Reference Range Comments B-TYPE NATRIURETIC PEPTIDE (BEAKER) (test 170 pg/mL 0-100 lsfy=227) BASIC METABOLIC [id number] 15:08:00 Test Item Value Reference Range Comments SODIUM (BEAKER) (test 139 meq/L 136-145 hbzo=581) POTASSIUM (BEAKER) (test 4.1 meq/L 3.5-5.1 nmuf=529) CHLORIDE (BEAKER) (test 99 meq/L 98-107 adgw=900) CO2 (BEAKER) (test 33 meq/L 22-29 ryef=047) BLOOD UREA NITROGEN 20 mg/dL 7-21 (BEAKER) (test wmry=029) CREATININE (BEAKER) (test 1.02 mg/dL 0.57-1.25 rozc=313) GLUCOSE RANDOM (BEAKER) 132 mg/dL 70-105 (test ytfp=504) CALCIUM (BEAKER) (test 9.9 mg/dL 8.4-10.2 aigp=979) EGFR (BEAKER) (test 69 mL/min/1.73 sq m ESTIMATED GFR IS NOT vddp=1805) ACCURATE CREATININE CLEARANCE IN PREDICTING GLOMERULAR FILTRATION RATE. ESTIMATED GFR IS NOT APPLICABLE FOR DIALYSIS PATIENTS. Specimen slightly [id number] 15:08:00 Test Item Value Reference Range Comments ALBUMIN (BEAKER) (test xhse=3463) 4.2 g/dL 3.5-5.0 PROTHROMBIN TIME/[id number] 14:59:00 Test Item Value Reference Range Comments PROTIME (BEAKER) (test vogk=142) 16.7 seconds 11.7-14.7 INR (BEAKER) (test tjfh=229) 1.4 <=5.9 RECOMMENDED COUMADIN/WARFARIN INR THERAPY RANGESSTANDARD DOSE: 2.0 - 3.0 Includes: PROPHYLAXIS forvenous thrombosis, systemic embolization; TREATMENT for venous thrombosis and/or pulmonary embolus.HIGH RISK: Target INR is 2.5-3.5 for patients with mechanical heart valves.CBC W/PLT COUNT & AUTO [id number] 14:53:00 Test Item Value Reference Range Comments WHITE BLOOD CELL COUNT (BEAKER) (test naai=458) 3.7 K/ L 3.5-10.5 RED BLOOD CELL COUNT (BEAKER) (test upym=292) 3.11 M/ L 4.63-6.08 HEMOGLOBIN (BEAKER) (test yqko=784) 10.5 GM/DL 13.7-17.5 HEMATOCRIT (BEAKER) (test ujbh=547) 32.3 % 40.1-51.0 MEAN CORPUSCULAR VOLUME (BEAKER) (test bmys=653) 103.9 fL 79.0-92.2 MEAN CORPUSCULAR HEMOGLOBIN (BEAKER) (test 33.8 pg 25.7-32.2 hlbc=647) MEAN CORPUSCULAR HEMOGLOBIN CONC (BEAKER) (test 32.5 GM/DL 32.3-36.5 wnnx=293) RED CELL DISTRIBUTION WIDTH (BEAKER) (test 15.8 % 11.6-14.4 xjcq=032) PLATELET COUNT (BEAKER) (test qpkk=547) 139 K/CU MM 150-450 MEAN PLATELET VOLUME (BEAKER) (test ftzt=526) 10.2 fL 9.4-12.4 NUCLEATED RED BLOOD CELLS (BEAKER) (test 0 /100 WBC 0-0 rwle=107) NEUTROPHILS RELATIVE PERCENT (BEAKER) (test 59 % dqes=407) LYMPHOCYTES RELATIVE PERCENT (BEAKER) (test 23 % lybs=858) MONOCYTES RELATIVE PERCENT (BEAKER) (test 13 % prjd=388) EOSINOPHILS RELATIVE PERCENT (BEAKER) (test 4 % eslo=674) BASOPHILS RELATIVE PERCENT (BEAKER) (test 1 % vqhp=832) NEUTROPHILS ABSOLUTE COUNT (BEAKER) (test 2.18 K/ L 1.78-5.38 zbyc=897) LYMPHOCYTES ABSOLUTE COUNT (BEAKER) (test 0.86 K/ L 1.32-3.57 iyqk=092) MONOCYTES ABSOLUTE COUNT (BEAKER) (test 0.46 K/ L 0.30-0.82 foyd=759) EOSINOPHILS ABSOLUTE COUNT (BEAKER) (test 0.14 K/ L 0.04-0.54 uioo=850) BASOPHILS ABSOLUTE COUNT (BEAKER) (test 0.04 K/ L 0.01-0.08 jhig=391) IMMATURE GRANULOCYTES-RELATIVE PERCENT (BEAKER) 0 % 0-1 (test qfzc=7893) BASIC METABOLIC [id number] 06:31:00 Test Item Value Reference Range Comments SODIUM (BEAKER) (test 136 meq/L 136-145 cpzc=948) POTASSIUM (BEAKER) (test 4.4 meq/L 3.5-5.1 nmwi=020) CHLORIDE (BEAKER) (test 94 meq/L 98-107 jmwq=159) CO2 (BEAKER) (test 37 meq/L 22-29 ehpv=713) BLOOD UREA NITROGEN 26 mg/dL 7-21 (BEAKER) (test lstu=961) CREATININE (BEAKER) (test 1.07 mg/dL 0.57-1.25 olrx=743) GLUCOSE RANDOM (BEAKER) 115 mg/dL 70-105 (test qphx=069) CALCIUM (BEAKER) (test 9.6 mg/dL 8.4-10.2 jmbx=436) EGFR (BEAKER) (test 66 mL/min/1.73 sq m ESTIMATED GFR IS NOT vtvn=0728) ACCURATE CREATININE CLEARANCE IN PREDICTING GLOMERULAR FILTRATION RATE. ESTIMATED GFR IS NOT APPLICABLE FOR DIALYSIS PATIENTS. URINALYSIS W/ [id number] 17:39:00 Test Item Value Reference Range Comments COLOR (BEAKER) (test dlyq=092) Yellow CLARITY (BEAKER) (test scxj=948) Cloudy SPECIFIC GRAVITY UA (BEAKER) (test 1.012 1.001-1.035 nfym=974) PH UA (BEAKER) (test xeww=444) 6.5 5.0-8.0 PROTEIN UA (BEAKER) (test agjd=608) 50 mg/dL Negative GLUCOSE UA (BEAKER) (test psuv=171) Negative Negative KETONES UA (BEAKER) (test pxiy=008) Negative Negative BILIRUBIN UA (BEAKER) (test xtch=920) Negative Negative BLOOD UA (BEAKER) (test bvsa=155) Small Negative NITRITE UA (BEAKER) (test dvfq=857) Negative Negative LEUKOCYTE ESTERASE UA (BEAKER) (test Large Negative ggev=317) UROBILINOGEN UA (BEAKER) (test lbjl=222) 0.2 mg/dL 0.2-1.0 RBC UA (BEAKER) (test ilrm=433) 0 /HPF WBC UA (BEAKER) (test xnbc=071) > /HPF BACTERIA (BEAKER) (test jgtj=317) Moderate SOURCE(BEAKER) (test mmlh=4843) Urine, Clean Catch BASIC METABOLIC [id number] 05:57:00 Test Item Value Reference Range Comments SODIUM (BEAKER) (test 135 meq/L 136-145 tesc=148) POTASSIUM (BEAKER) (test 4.3 meq/L 3.5-5.1 ifqc=895) CHLORIDE (BEAKER) (test 93 meq/L 98-107 llvs=880) CO2 (BEAKER) (test 32 meq/L 22-29 cqyx=852) BLOOD UREA NITROGEN 33 mg/dL 7-21 (BEAKER) (test vepy=925) CREATININE (BEAKER) (test 1.10 mg/dL 0.57-1.25 pfag=730) GLUCOSE RANDOM (BEAKER) 113 mg/dL 70-105 (test twfj=938) CALCIUM (BEAKER) (test 9.2 mg/dL 8.4-10.2 ltyb=287) EGFR (BEAKER) (test 63 mL/min/1.73 sq m ESTIMATED GFR IS NOT qujx=5291) ACCURATE CREATININE CLEARANCE IN PREDICTING GLOMERULAR FILTRATION RATE. ESTIMATED GFR IS NOT APPLICABLE FOR DIALYSIS PATIENTS. CBC W/PLT COUNT & AUTO [id number] 05:36:00 Test Item Value Reference Range Comments WHITE BLOOD CELL COUNT (BEAKER) (test ykfb=377) 4.8 K/ L 3.5-10.5 RED BLOOD CELL COUNT (BEAKER) (test demk=377) 2.77 M/ L 4.63-6.08 HEMOGLOBIN (BEAKER) (test btgv=992) 9.1 GM/DL 13.7-17.5 HEMATOCRIT (BEAKER) (test fkkz=813) 27.9 % 40.1-51.0 MEAN CORPUSCULAR VOLUME (BEAKER) (test wddg=610) 100.7 fL 79.0-92.2 MEAN CORPUSCULAR HEMOGLOBIN (BEAKER) (test 32.9 pg 25.7-32.2 ofpn=473) MEAN CORPUSCULAR HEMOGLOBIN CONC (BEAKER) (test 32.6 GM/DL 32.3-36.5 fxac=766) RED CELL DISTRIBUTION WIDTH (BEAKER) (test 14.6 % 11.6-14.4 fxpf=449) PLATELET COUNT (BEAKER) (test emqa=883) 176 K/CU MM 150-450 MEAN PLATELET VOLUME (BEAKER) (test ctsg=743) 9.8 fL 9.4-12.4 NUCLEATED RED BLOOD CELLS (BEAKER) (test 0 /100 WBC 0-0 mzqz=986) NEUTROPHILS RELATIVE PERCENT (BEAKER) (test 63 % rwpv=197) LYMPHOCYTES RELATIVE PERCENT (BEAKER) (test 14 % cgvb=172) MONOCYTES RELATIVE PERCENT (BEAKER) (test 13 % apyy=980) EOSINOPHILS RELATIVE PERCENT (BEAKER) (test 10 % ptvc=216) BASOPHILS RELATIVE PERCENT (BEAKER) (test 1 % umla=400) NEUTROPHILS ABSOLUTE COUNT (BEAKER) (test 3.05 K/ L 1.78-5.38 ndsy=173) LYMPHOCYTES ABSOLUTE COUNT (BEAKER) (test 0.66 K/ L 1.32-3.57 sosl=957) MONOCYTES ABSOLUTE COUNT (BEAKER) (test 0.61 K/ L 0.30-0.82 qzmt=856) EOSINOPHILS ABSOLUTE COUNT (BEAKER) (test 0.46 K/ L 0.04-0.54 rbpv=370) BASOPHILS ABSOLUTE COUNT (BEAKER) (test 0.04 K/ L 0.01-0.08 awun=837) IMMATURE GRANULOCYTES-RELATIVE PERCENT (BEAKER) 0 % 0-1 (test kazt=2983) BASIC METABOLIC [id number] 07:35:00 Test Item Value Reference Range Comments SODIUM (BEAKER) (test 134 meq/L 136-145 ibqe=926) POTASSIUM (BEAKER) (test 3.7 meq/L 3.5-5.1 iszw=258) CHLORIDE (BEAKER) (test 95 meq/L 98-107 vioj=495) CO2 (BEAKER) (test 27 meq/L 22-29 pdqg=371) BLOOD UREA NITROGEN 30 mg/dL 7-21 (BEAKER) (test gkil=265) CREATININE (BEAKER) (test 1.04 mg/dL 0.57-1.25 exgi=333) GLUCOSE RANDOM (BEAKER) 101 mg/dL 70-105 (test rldr=184) CALCIUM (BEAKER) (test 8.9 mg/dL 8.4-10.2 goid=026) EGFR (BEAKER) (test 68 mL/min/1.73 sq m ESTIMATED GFR IS NOT kxud=1118) ACCURATE CREATININE CLEARANCE IN PREDICTING GLOMERULAR FILTRATION RATE. ESTIMATED GFR IS NOT APPLICABLE FOR DIALYSIS PATIENTS. Specimen slightly ictericBASIC METABOLIC [id number] 06:09:00 Test Item Value Reference Range Comments SODIUM (BEAKER) (test 133 meq/L 136-145 gmth=685) POTASSIUM (BEAKER) (test 3.9 meq/L 3.5-5.1 blfw=811) CHLORIDE (BEAKER) (test 97 meq/L 98-107 hieb=693) CO2 (BEAKER) (test 28 meq/L 22-29 ctcq=155) BLOOD UREA NITROGEN 20 mg/dL 7-21 (BEAKER) (test fxon=568) CREATININE (BEAKER) (test 0.92 mg/dL 0.57-1.25 liim=809) GLUCOSE RANDOM (BEAKER) 97 mg/dL 70-105 (test prri=733) CALCIUM (BEAKER) (test 8.8 mg/dL 8.4-10.2 jcml=837) EGFR (BEAKER) (test 78 mL/min/1.73 sq m ESTIMATED GFR IS NOT cxlg=9853) ACCURATE CREATININE CLEARANCE IN PREDICTING GLOMERULAR FILTRATION RATE. ESTIMATED GFR IS NOT APPLICABLE FOR DIALYSIS PATIENTS. Specimen slightly ictericB-TYPE NATRIURETIC FACTOR (BNP)2017-07-29 06:01:00 Test Item Value Reference Range Comments B-TYPE NATRIURETIC PEPTIDE (BEAKER) (test 109 pg/mL 0-100 rdai=180) RAD, CHEST, 1 VIEW, NON [id number] 17:23:00Reason for exam:->chfShould this be performed at [...] [place] Verified Date/Time: 07/28/2017 17:23:24 Reading Location: [facility] Radiology Reading Room URINE [id number] 10:09:00 Test Item Value Reference Range Comments CULTURE (BEAKER) (test KLEBSIELLA PNEUMONIAE >100,000 col/mL sdbl=5867) SSP PNEUMONIAE Klebsiella pneumoniae ssp pneumoniae Amikacin [...] code=47) CULTURE (BEAKER) (test STENOTROPHOMONAS 50-59,000 col/mL gidi=3667) MALTOPHILIA Stenotrophomonas maltophilia Ceftazidime (test Susceptible 0-8 , code=27) Resistant <0 or >8 Levofloxacin (test Susceptible 0-2 , code=22) Resistant <0 or >2 Minocycline (test Susceptible 0-4 , code=35) Resistant <0 or >4 Ticarcillin + Susceptible 0-16 Clavulanic Acid (test , Resistant <0 or code=80) >16 Trimethoprim + Susceptible 0-40 Sulfamethoxazole (test , Resistant <0 or code=47) >40 COMPREHENSIVE METABOLIC [id number] 07:06:00 Test Item Value Reference Range Comments TOTAL PROTEIN (BEAKER) 6.3 gm/dL 6.0-8.3 (test ltdm=461) ALBUMIN (BEAKER) (test 3.4 g/dL 3.5-5.0 udbl=8275) ALKALINE PHOSPHATASE 122 U/L 40-150 (BEAKER) (test lesg=374) BILIRUBIN TOTAL (BEAKER) 2.2 mg/dL 0.2-1.2 (test incb=998) SODIUM (BEAKER) (test 137 meq/L 136-145 ayql=243) POTASSIUM (BEAKER) (test 4.8 meq/L 3.5-5.1 pygc=893) CHLORIDE (BEAKER) (test 102 meq/L 98-107 sonm=005) CO2 (BEAKER) (test 27 meq/L 22-29 tmud=916) BLOOD UREA NITROGEN 17 mg/dL 7-21 (BEAKER) (test kppr=212) CREATININE (BEAKER) (test 0.80 mg/dL 0.57-1.25 cmee=183) GLUCOSE RANDOM (BEAKER) 122 mg/dL 70-105 (test gvkn=158) CALCIUM (BEAKER) (test 9.1 mg/dL 8.4-10.2 gbba=219) AST (SGOT) (BEAKER) (test 31 U/L 5-34 xqbu=790) ALT (SGPT) (BEAKER) (test 19 U/L 6-55 coqz=701) EGFR (BEAKER) (test 92 mL/min/1.73 sq m ESTIMATED GFR IS NOT wgxq=5118) ACCURATE CREATININE CLEARANCE IN PREDICTING GLOMERULAR FILTRATION RATE. ESTIMATED GFR IS NOT APPLICABLE FOR DIALYSIS PATIENTS. Specimen slightly ictericCBC W/PLT COUNT & AUTO [id number] 06:35 :00 Test Item Value Reference Range Comments WHITE BLOOD CELL COUNT (BEAKER) (test lcqy=046) 6.0 K/ L 3.5-10.5 RED BLOOD CELL COUNT (BEAKER) (test szqo=189) 2.86 M/ L 4.63-6.08 HEMOGLOBIN (BEAKER) (test zebp=569) 9.6 GM/DL 13.7-17.5 HEMATOCRIT (BEAKER) (test spbx=594) 29.2 % 40.1-51.0 MEAN CORPUSCULAR VOLUME (BEAKER) (test ekhg=429) 102.1 fL 79.0-92.2 MEAN CORPUSCULAR HEMOGLOBIN (BEAKER) (test 33.6 pg 25.7-32.2 ymkd=520) MEAN CORPUSCULAR HEMOGLOBIN CONC (BEAKER) (test 32.9 GM/DL 32.3-36.5 omrk=350) RED CELL DISTRIBUTION WIDTH (BEAKER) (test 14.7 % 11.6-14.4 dnwh=127) PLATELET COUNT (BEAKER) (test dwhw=938) 169 K/CU MM 150-450 MEAN PLATELET VOLUME (BEAKER) (test jrck=871) 9.8 fL 9.4-12.4 NUCLEATED RED BLOOD CELLS (BEAKER) (test 0 /100 WBC 0-0 lokg=479) NEUTROPHILS RELATIVE PERCENT (BEAKER) (test 69 % fdhf=666) LYMPHOCYTES RELATIVE PERCENT (BEAKER) (test 12 % tdpc=151) MONOCYTES RELATIVE PERCENT (BEAKER) (test 11 % rnwv=240) EOSINOPHILS RELATIVE PERCENT (BEAKER) (test 7 % cbyq=575) BASOPHILS RELATIVE PERCENT (BEAKER) (test 0 % gecc=462) NEUTROPHILS ABSOLUTE COUNT (BEAKER) (test 4.13 K/ L 1.78-5.38 jcuv=465) LYMPHOCYTES ABSOLUTE COUNT (BEAKER) (test 0.70 K/ L 1.32-3.57 naxv=713) MONOCYTES ABSOLUTE COUNT (BEAKER) (test 0.67 K/ L 0.30-0.82 yzml=629) EOSINOPHILS ABSOLUTE COUNT (BEAKER) (test 0.44 K/ L 0.04-0.54 pamm=795) BASOPHILS ABSOLUTE COUNT (BEAKER) (test 0.02 K/ L 0.01-0.08 qauc=179) IMMATURE GRANULOCYTES-RELATIVE PERCENT (BEAKER) 1 % 0-1 (test fzxf=3041) URINALYSIS W/ [id number] 18:38:00 Test Item Value Reference Range Comments COLOR (BEAKER) (test qeed=589) Yellow CLARITY (BEAKER) (test zsri=894) Clear SPECIFIC GRAVITY UA (BEAKER) (test 1.005 1.001-1.035 ilvt=579) PH UA (BEAKER) (test nbem=168) 6.5 5.0-8.0 PROTEIN UA (BEAKER) (test lxij=005) Negative Negative GLUCOSE UA (BEAKER) (test bgst=917) Negative Negative KETONES UA (BEAKER) (test vorb=145) Negative Negative BILIRUBIN UA (BEAKER) (test foqb=740) Negative Negative BLOOD UA (BEAKER) (test mywh=305) Negative Negative NITRITE UA (BEAKER) (test pkxm=704) Negative Negative LEUKOCYTE ESTERASE UA (BEAKER) (test Negative Negative iclx=558) UROBILINOGEN UA (BEAKER) (test emhj=986) 0.2 mg/dL 0.2-1.0 RBC UA (BEAKER) (test elxv=763) 0 /HPF WBC UA (BEAKER) (test nxcn=142) < /HPF SOURCE(BEAKER) (test oeri=5614) Urine, Clean Catch CBC W/PLT COUNT & AUTO [id number] 04:47:00 Test Item Value Reference Range Comments WHITE BLOOD CELL COUNT (BEAKER) (test yker=616) 5.5 K/ L 3.5-10.5 RED BLOOD CELL COUNT (BEAKER) (test raab=181) 2.72 M/ L 4.63-6.08 HEMOGLOBIN (BEAKER) (test ecfb=097) 8.9 GM/DL 13.7-17.5 HEMATOCRIT (BEAKER) (test kpxg=717) 27.1 % 40.1-51.0 MEAN CORPUSCULAR VOLUME (BEAKER) (test qumr=305) 99.6 fL 79.0-92.2 MEAN CORPUSCULAR HEMOGLOBIN (BEAKER) (test 32.7 pg 25.7-32.2 mgsr=535) MEAN CORPUSCULAR HEMOGLOBIN CONC (BEAKER) (test 32.8 GM/DL 32.3-36.5 mvvl=204) RED CELL DISTRIBUTION WIDTH (BEAKER) (test 15.0 % 11.6-14.4 okml=683) PLATELET COUNT (BEAKER) (test mswm=354) 149 K/CU MM 150-450 MEAN PLATELET VOLUME (BEAKER) (test dhiu=671) 10.0 fL 9.4-12.4 NUCLEATED RED BLOOD CELLS (BEAKER) (test 0 /100 WBC 0-0 ruwa=533) NEUTROPHILS RELATIVE PERCENT (BEAKER) (test 62 % qsfp=120) LYMPHOCYTES RELATIVE PERCENT (BEAKER) (test 13 % awgj=027) MONOCYTES RELATIVE PERCENT (BEAKER) (test 14 % pail=959) EOSINOPHILS RELATIVE PERCENT (BEAKER) (test 9 % whfa=773) BASOPHILS RELATIVE PERCENT (BEAKER) (test 1 % mdkt=391) NEUTROPHILS ABSOLUTE COUNT (BEAKER) (test 3.40 K/ L 1.78-5.38 cqxu=490) LYMPHOCYTES ABSOLUTE COUNT (BEAKER) (test 0.72 K/ L 1.32-3.57 poqv=207) MONOCYTES ABSOLUTE COUNT (BEAKER) (test 0.76 K/ L 0.30-0.82 wysk=979) EOSINOPHILS ABSOLUTE COUNT (BEAKER) (test 0.50 K/ L 0.04-0.54 tkwp=960) BASOPHILS ABSOLUTE COUNT (BEAKER) (test 0.03 K/ L 0.01-0.08 zwdn=984) IMMATURE GRANULOCYTES-RELATIVE PERCENT (BEAKER) 1 % 0-1 (test mrpn=4935) BASIC METABOLIC [id number] 04:36:00 Test Item Value Reference Range Comments SODIUM (BEAKER) (test 138 meq/L 136-145 skiy=269) POTASSIUM (BEAKER) (test 4.2 meq/L 3.5-5.1 hdtt=062) CHLORIDE (BEAKER) (test 104 meq/L 98-107 gkpy=597) CO2 (BEAKER) (test 28 meq/L 22-29 wwys=455) BLOOD UREA NITROGEN 16 mg/dL 7-21 (BEAKER) (test huvw=104) CREATININE (BEAKER) (test 0.79 mg/dL 0.57-1.25 ochn=201) GLUCOSE RANDOM (BEAKER) 102 mg/dL 70-105 (test cgrr=722) CALCIUM (BEAKER) (test 8.8 mg/dL 8.4-10.2 cxdb=190) EGFR (BEAKER) (test 93 mL/min/1.73 sq m ESTIMATED GFR IS NOT npiu=9504) ACCURATE CREATININE CLEARANCE IN PREDICTING GLOMERULAR FILTRATION RATE. ESTIMATED GFR IS NOT APPLICABLE FOR DIALYSIS PATIENTS. Specimen slightly ictericB-TYPE NATRIURETIC FACTOR (BNP)2017-07-24 04:34:00 Test Item Value Reference Range Comments B-TYPE NATRIURETIC PEPTIDE (BEAKER) (test 190 pg/mL 0-100 sctq=525) [id number] 07:02:00 Test Item Value Reference Range Comments CORTISOL, TOTAL (BEAKER) (test lbtf=6106) 12.9 ug/dL 3.7-19.4 CBC (HEMOGRAM ONLY)2017-07-23 06:17:00 Test Item Value Reference Range Comments WHITE BLOOD CELL COUNT (BEAKER) (test efwo=612) 6.3 K/ L 3.5-10.5 RED BLOOD CELL COUNT (BEAKER) (test imrc=091) 2.84 M/ L 4.63-6.08 HEMOGLOBIN (BEAKER) (test leds=757) 9.3 GM/DL 13.7-17.5 HEMATOCRIT (BEAKER) (test mknn=367) 28.1 % 40.1-51.0 MEAN CORPUSCULAR VOLUME (BEAKER) (test yxhb=617) 98.9 fL 79.0-92.2 MEAN CORPUSCULAR HEMOGLOBIN (BEAKER) (test 32.7 pg 25.7-32.2 jgwd=608) MEAN CORPUSCULAR HEMOGLOBIN CONC (BEAKER) (test 33.1 GM/DL 32.3-36.5 kikm=765) RED CELL DISTRIBUTION WIDTH (BEAKER) (test 14.8 % 11.6-14.4 bifz=743) PLATELET COUNT (BEAKER) (test vbkf=578) 136 K/CU MM 150-450 MEAN PLATELET VOLUME (BEAKER) (test zwhd=232) 9.9 fL 9.4-12.4 NUCLEATED RED BLOOD CELLS (BEAKER) (test 0 /100 WBC 0-0 xdau=193) CT, CTA, [id number] 16:16:00Addendum BeginsREPORT STATUS:A Addendum: July 22, 2017 at 1620 hours I have reviewed the CT images for this study and I concur with the nonvascular imaging findings as dictated. Signed: Sandip Christianson MDReport Verified Date/Time: 07/22/2017 16:16:14 Reading Location: [place] [address] Angio Body Reading RoomAddendum EndsFINAL REPORT CT [...] bypass surgery. The internal mammary arteries are [place]. A bypass graft is identified, that is [...] An addendum will be dictated by the [employer] Radiologist regarding the nonvascular findings. Signed: Abdoul Galloway MDReport Verified Date/Time: 07/22/2017 15:43:41 Reading Location: [place] [id number] Cardiology MRI CT, CTA [id number] 16:16:00TAVRAddendum BeginsREPORT STATUS:A Addendum: July 22, 2017 at 1620 hours I have reviewed the CT images for this study and I concur with the nonvascular imaging findings as dictated. Signed: Sandip Christiansonort Verified Date/Time: 07/22/2017 16:16:14 Reading Location: [place] [id number] Angio Body Reading RoomAddendum EndsFINAL REPORT CT [...] bypass surgery. The internal mammary arteries are [place]. A bypass graft is identified, that is [...] An addendum will be dictated by the Custom [employer] Radiologist regarding the nonvascular findings. Signed: Abdoul Galloway MDReport Verified Date/Time: 07/22/2017 15:43:41 Reading Location: [place] [address] Cardiology MRI [facility] METABOLIC [id number] 05:06:00 Test Item Value Reference Range Comments SODIUM (BEAKER) (test 139 meq/L 136-145 tghq=461) POTASSIUM (BEAKER) (test 4.4 meq/L 3.5-5.1 furs=000) CHLORIDE (BEAKER) (test 106 meq/L 98-107 fnqz=798) CO2 (BEAKER) (test 24 meq/L 22-29 tyuf=357) BLOOD UREA NITROGEN 20 mg/dL 7-21 (BEAKER) (test dddt=414) CREATININE (BEAKER) (test 0.80 mg/dL 0.57-1.25 nifo=937) GLUCOSE RANDOM (BEAKER) 110 mg/dL 70-105 (test qmre=237) CALCIUM (BEAKER) (test 9.3 mg/dL 8.4-10.2 apvy=494) EGFR (BEAKER) (test 92 mL/min/1.73 sq m ESTIMATED GFR IS NOT zceq=7096) ACCURATE CREATININE CLEARANCE IN PREDICTING GLOMERULAR FILTRATION RATE. ESTIMATED GFR IS NOT APPLICABLE FOR DIALYSIS PATIENTS. Specimen slightly ictericB-TYPE NATRIURETIC FACTOR (BNP)2017-07-22 05:00:00 Test Item Value Reference Range Comments B-TYPE NATRIURETIC PEPTIDE (BEAKER) (test 475 pg/mL 0-100 jonk=675) POCT-GLUCOSE [id number] 20:48:00 Test Item Value Reference Range Comments POC-GLUCOSE METER (BEAKER) 133 mg/dL 70-[address] [facility] [address] [facility] (test igtd=7954) [facility] [address] [id number] 06:17:00 Test Item Value Reference Range Comments PHOSPHORUS (BEAKER) (test dmsa=974) 2.3 mg/dL 2.3-4.7 [id number] 06:17:00 Test Item Value Reference Range Comments MAGNESIUM (BEAKER) (test qamx=246) 2.2 mg/dL 1.6-2.6 BASIC METABOLIC [id number] 06:17:00 Test Item Value Reference Range Comments SODIUM (BEAKER) (test 135 meq/L 136-145 skgd=791) POTASSIUM (BEAKER) (test 4.3 meq/L 3.5-5.1 fcso=073) CHLORIDE (BEAKER) (test 106 meq/L 98-107 xame=308) CO2 (BEAKER) (test 23 meq/L 22-29 nssi=893) BLOOD UREA NITROGEN 32 mg/dL 7-21 (BEAKER) (test wiiy=187) CREATININE (BEAKER) (test 1.06 mg/dL 0.57-1.25 yruz=088) GLUCOSE RANDOM (BEAKER) 107 mg/dL 70-105 (test cthj=610) CALCIUM (BEAKER) (test 8.6 mg/dL 8.4-10.2 pyxn=851) EGFR (BEAKER) (test 66 mL/min/1.73 sq m ESTIMATED GFR IS NOT ybdv=1020) ACCURATE CREATININE CLEARANCE IN PREDICTING GLOMERULAR FILTRATION RATE. ESTIMATED GFR IS NOT APPLICABLE FOR DIALYSIS PATIENTS. CBC W/PLT COUNT & AUTO [id number] 05:58:00 Test Item Value Reference Range Comments WHITE BLOOD CELL COUNT (BEAKER) (test xsnn=786) 4.5 K/ L 3.5-10.5 RED BLOOD CELL COUNT (BEAKER) (test mpvi=145) 2.34 M/ L 4.63-6.08 HEMOGLOBIN (BEAKER) (test zkpl=823) 7.8 GM/DL 13.7-17.5 HEMATOCRIT (BEAKER) (test aoxu=344) 23.7 % 40.1-51.0 MEAN CORPUSCULAR VOLUME (BEAKER) (test kiet=972) 101.3 fL 79.0-92.2 MEAN CORPUSCULAR HEMOGLOBIN (BEAKER) (test 33.3 pg 25.7-32.2 phfj=997) MEAN CORPUSCULAR HEMOGLOBIN CONC (BEAKER) (test 32.9 GM/DL 32.3-36.5 fahj=835) RED CELL DISTRIBUTION WIDTH (BEAKER) (test 14.7 % 11.6-14.4 yqmj=823) PLATELET COUNT (BEAKER) (test lvha=215) 76 K/CU MM 150-450 MEAN PLATELET VOLUME (BEAKER) (test rgyp=067) 10.0 fL 9.4-12.4 NUCLEATED RED BLOOD CELLS (BEAKER) (test 0 /100 WBC 0-0 vual=244) NEUTROPHILS RELATIVE PERCENT (BEAKER) (test 63 % kenz=634) LYMPHOCYTES RELATIVE PERCENT (BEAKER) (test 14 % yuam=575) MONOCYTES RELATIVE PERCENT (BEAKER) (test 13 % tltv=966) EOSINOPHILS RELATIVE PERCENT (BEAKER) (test 9 % oblw=117) BASOPHILS RELATIVE PERCENT (BEAKER) (test 0 % xouv=128) NEUTROPHILS ABSOLUTE COUNT (BEAKER) (test 2.82 K/ L 1.78-5.38 pxwm=516) LYMPHOCYTES ABSOLUTE COUNT (BEAKER) (test 0.61 K/ L 1.32-3.57 kocc=988) MONOCYTES ABSOLUTE COUNT (BEAKER) (test pply=640) 0.59 K/ L 0.30-0.82 EOSINOPHILS ABSOLUTE COUNT (BEAKER) (test 0.39 K/ L 0.04-0.54 dbnb=155) BASOPHILS ABSOLUTE COUNT (BEAKER) (test nvfk=889) 0.01 K/ L 0.01-0.08 IMMATURE GRANULOCYTES-RELATIVE PERCENT (BEAKER) 1 % 0-1 (test cevi=4382) [id number] 05:42:00 Test Item Value Reference Range Comments MAGNESIUM (BEAKER) (test curj=789) 2.2 mg/dL 1.6-2.6 BASIC METABOLIC [id number] 05:42:00 Test Item Value Reference Range Comments SODIUM (BEAKER) (test 135 meq/L 136-145 pmgq=671) POTASSIUM (BEAKER) (test 4.2 meq/L 3.5-5.1 drgf=534) CHLORIDE (BEAKER) (test 106 meq/L 98-107 ocxi=725) CO2 (BEAKER) (test 23 meq/L 22-29 nrnx=583) BLOOD UREA NITROGEN 41 mg/dL 7-21 (BEAKER) (test fewa=485) CREATININE (BEAKER) (test 1.43 mg/dL 0.57-1.25 rqsc=105) GLUCOSE RANDOM (BEAKER) 118 mg/dL 70-105 (test cnpi=341) CALCIUM (BEAKER) (test 8.4 mg/dL 8.4-10.2 opro=551) EGFR (BEAKER) (test 47 mL/min/1.73 sq m ESTIMATED GFR IS NOT rclw=5374) ACCURATE CREATININE CLEARANCE IN PREDICTING GLOMERULAR FILTRATION RATE. ESTIMATED GFR IS NOT APPLICABLE FOR DIALYSIS PATIENTS. CBC W/PLT COUNT & AUTO [id number] 08:51:00 Test Item Value Reference Range Comments WHITE BLOOD CELL COUNT (BEAKER) (test liub=825) 4.8 K/ L 3.5-10.5 RED BLOOD CELL COUNT (BEAKER) (test upuv=819) 2.42 M/ L 4.63-6.08 HEMOGLOBIN (BEAKER) (test dudh=214) 8.0 GM/DL 13.7-17.5 HEMATOCRIT (BEAKER) (test fjff=541) 24.6 % 40.1-51.0 MEAN CORPUSCULAR VOLUME (BEAKER) (test rocq=366) 101.7 fL 79.0-92.2 MEAN CORPUSCULAR HEMOGLOBIN (BEAKER) (test 33.1 pg 25.7-32.2 hkme=022) MEAN CORPUSCULAR HEMOGLOBIN CONC (BEAKER) (test 32.5 GM/DL 32.3-36.5 zukf=013) RED CELL DISTRIBUTION WIDTH (BEAKER) (test 15.2 % 11.6-14.4 npsa=621) PLATELET COUNT (BEAKER) (test lqsn=863) 62 K/CU MM 150-450 MEAN PLATELET VOLUME (BEAKER) (test iflt=554) 10.7 fL 9.4-12.4 NUCLEATED RED BLOOD CELLS (BEAKER) (test 0 /100 WBC 0-0 lvif=107) NEUTROPHILS RELATIVE PERCENT (BEAKER) (test 72 % eokj=323) LYMPHOCYTES RELATIVE PERCENT (BEAKER) (test 8 % ejfc=220) MONOCYTES RELATIVE PERCENT (BEAKER) (test 13 % lyby=544) EOSINOPHILS RELATIVE PERCENT (BEAKER) (test 7 % mxpt=544) BASOPHILS RELATIVE PERCENT (BEAKER) (test 0 % zjyk=383) NEUTROPHILS ABSOLUTE COUNT (BEAKER) (test 3.46 K/ L 1.78-5.38 bgnc=245) LYMPHOCYTES ABSOLUTE COUNT (BEAKER) (test 0.36 K/ L 1.32-3.57 ikyw=062) MONOCYTES ABSOLUTE COUNT (BEAKER) (test btaf=414) 0.64 K/ L 0.30-0.82 EOSINOPHILS ABSOLUTE COUNT (BEAKER) (test 0.33 K/ L 0.04-0.54 hpjb=622) BASOPHILS ABSOLUTE COUNT (BEAKER) (test uhyj=075) 0.01 K/ L 0.01-0.08 IMMATURE GRANULOCYTES-RELATIVE PERCENT (BEAKER) 0 % 0-1 (test lnpd=9505) BASIC METABOLIC [id number] 06:59:00 Test Item Value Reference Range Comments SODIUM (BEAKER) (test 134 meq/L 136-145 ttii=078) POTASSIUM (BEAKER) (test 4.3 meq/L 3.5-5.1 okah=429) CHLORIDE (BEAKER) (test 106 meq/L 98-107 aupb=957) CO2 (BEAKER) (test 22 meq/L 22-29 uyfr=553) BLOOD UREA NITROGEN 48 mg/dL 7-21 (BEAKER) (test lhfx=501) CREATININE (BEAKER) (test 2.22 mg/dL 0.57-1.25 qjoi=767) GLUCOSE RANDOM (BEAKER) 151 mg/dL 70-105 (test lvuo=068) CALCIUM (BEAKER) (test 8.1 mg/dL 8.4-10.2 xmnt=753) EGFR (BEAKER) (test 28 mL/min/1.73 sq m ESTIMATED GFR IS NOT cmpy=7444) ACCURATE CREATININE CLEARANCE IN PREDICTING GLOMERULAR FILTRATION RATE. ESTIMATED GFR IS NOT APPLICABLE FOR DIALYSIS PATIENTS. Specimen slightly [id number] 06:50:00 Test Item Value Reference Range Comments MAGNESIUM (BEAKER) (test htll=026) 2.2 mg/dL 1.6-2.6 [id number] 14:04:00 Test Item Value Reference Range Comments CORTISOL, TOTAL (BEAKER) (test gzlg=3841) 14.3 ug/dL 3.7-19.4 B-TYPE NATRIURETIC FACTOR (BNP)2017-07-17 05:11:00 Test Item Value Reference Range Comments B-TYPE NATRIURETIC PEPTIDE (BEAKER) (test 462 pg/mL 0-100 hvlk=202) URIC [id number] 05:09:00 Test Item Value Reference Range Comments URIC ACID (BEAKER) (test iiou=571) 9.8 mg/dL 2.6-7.2 [id number] 05:09:00 Test Item Value Reference Range Comments MAGNESIUM (BEAKER) (test ltbz=309) 2.0 mg/dL 1.6-2.6 COMPREHENSIVE METABOLIC [id number] 05:09:00 Test Item Value Reference Range Comments TOTAL PROTEIN (BEAKER) 5.4 gm/dL 6.0-8.3 (test advn=819) ALBUMIN (BEAKER) (test 3.2 g/dL 3.5-5.0 ezla=5630) ALKALINE PHOSPHATASE 62 U/L 40-150 (BEAKER) (test urob=025) BILIRUBIN TOTAL (BEAKER) 1.5 mg/dL 0.2-1.2 (test ndco=103) SODIUM (BEAKER) (test 137 meq/L 136-145 pfzg=497) POTASSIUM (BEAKER) (test 4.2 meq/L 3.5-5.1 tzme=466) CHLORIDE (BEAKER) (test 107 meq/L 98-107 vebv=761) CO2 (BEAKER) (test 21 meq/L 22-29 bqsb=600) BLOOD UREA NITROGEN 43 mg/dL 7-21 (BEAKER) (test ygxn=176) CREATININE (BEAKER) (test 2.58 mg/dL 0.57-1.25 vmjl=125) GLUCOSE RANDOM (BEAKER) 201 mg/dL 70-105 (test drws=612) CALCIUM (BEAKER) (test 8.1 mg/dL 8.4-10.2 fqnm=550) AST (SGOT) (BEAKER) (test 28 U/L 5-34 dfcs=748) ALT (SGPT) (BEAKER) (test 9 U/L 6-55 amsl=349) EGFR (BEAKER) (test 24 mL/min/1.73 sq m ESTIMATED GFR IS NOT pkwo=5484) ACCURATE CREATININE CLEARANCE IN PREDICTING GLOMERULAR FILTRATION RATE. ESTIMATED GFR IS NOT APPLICABLE FOR DIALYSIS PATIENTS. CBC W/PLT COUNT & AUTO [id number] 04:52:00 Test Item Value Reference Range Comments WHITE BLOOD CELL COUNT (BEAKER) (test psfb=349) 7.5 K/ L 3.5-10.5 RED BLOOD CELL COUNT (BEAKER) (test caqo=502) 2.20 M/ L 4.63-6.08 HEMOGLOBIN (BEAKER) (test ykuf=389) 7.4 GM/DL 13.7-17.5 HEMATOCRIT (BEAKER) (test euvq=149) 23.1 % 40.1-51.0 MEAN CORPUSCULAR VOLUME (BEAKER) (test oiqk=362) 105.0 fL 79.0-92.2 MEAN CORPUSCULAR HEMOGLOBIN (BEAKER) (test 33.6 pg 25.7-32.2 rbyt=426) MEAN CORPUSCULAR HEMOGLOBIN CONC (BEAKER) (test 32.0 GM/DL 32.3-36.5 kqvo=945) RED CELL DISTRIBUTION WIDTH (BEAKER) (test 14.0 % 11.6-14.4 jxvb=157) PLATELET COUNT (BEAKER) (test zsdn=967) 84 K/CU MM 150-450 MEAN PLATELET VOLUME (BEAKER) (test iyvu=707) 11.1 fL 9.4-12.4 NUCLEATED RED BLOOD CELLS (BEAKER) (test 0 /100 WBC 0-0 yhip=179) NEUTROPHILS RELATIVE PERCENT (BEAKER) (test 77 % ddbe=600) LYMPHOCYTES RELATIVE PERCENT (BEAKER) (test 8 % fqsv=165) MONOCYTES RELATIVE PERCENT (BEAKER) (test 13 % tfkr=286) EOSINOPHILS RELATIVE PERCENT (BEAKER) (test 1 % zrbl=291) BASOPHILS RELATIVE PERCENT (BEAKER) (test 0 % mnhp=545) NEUTROPHILS ABSOLUTE COUNT (BEAKER) (test 5.81 K/ L 1.78-5.38 nqxq=843) LYMPHOCYTES ABSOLUTE COUNT (BEAKER) (test 0.61 K/ L 1.32-3.57 owte=912) MONOCYTES ABSOLUTE COUNT (BEAKER) (test ovfg=122) 0.96 K/ L 0.30-0.82 EOSINOPHILS ABSOLUTE COUNT (BEAKER) (test 0.08 K/ L 0.04-0.54 qwwk=836) BASOPHILS ABSOLUTE COUNT (BEAKER) (test upui=357) 0.03 K/ L 0.01-0.08 IMMATURE GRANULOCYTES-RELATIVE PERCENT (BEAKER) 0 % 0-1 (test odox=4561) RAD, CHEST, 1 VIEW, NON [id number] 04:01:00Reason for exam:-> oliguriaShould this be performed [...] MDReport Verified Date/Time: 07/17/2017 04:01:10 Reading Location: [address] Reading Room SODIUM, RANDOM [id number] 19:25:00 Test Item Value Reference Range Comments SODIUM URINE (BEAKER) (test rfsf=690) < meq/L Reference Range: No NormalsCREATININE, RANDOM [id number] 19:14:00 Test Item Value Reference Range Comments CREATININE URINE (BEAKER) (test npip=585) 131.4 mg/dL Reference Range: No NormalsPROTEIN, RANDOM [id number] 19:14:00 Test Item Value Reference Range Comments PROTEIN, URINE (BEAKER) (test imvx=0438) 23 mg/dL 0-14 OSMOLALITY, [id number] 19:00:00 Test Item Value Reference Range Comments OSMOLALITY URINE (BEAKER) (test bwat=838) 346 mOsm/kg 40-1400 RAD, CHEST, 1 VIEW, NON [id number] 16:22:00Reason for exam:->central line placementShould this be performed at the bedside?->YesFINAL REPORT TECHNIQUE: Frontal chest radiograph dated 07/16/2017. CLINICAL HISTORY: Central line placement COMPARISON STUDY: Chest radiograph performed earlier the same day. IMPRESSION:Right-sided [place] catheter tip projects over the affected region of superior vena cava/right atrial junction. There is streaky atelectasis in the left lung base. No focal consolidation. No pleural effusion or pneumothorax. Cardiomediastinal silhouette is normal in size. No pulmonary edema.Midline sternotomy wires are intact and well aligned. No fracture. Bones are osteopenic. Signed: Ravi Griffin MDReport Verified Date/Time: 07/16/2017 16:22:02 Reading Location: [facility] Radiology Reading Room RAD, CHEST, 1 VIEW, NON [id number] 09:32:00Reason for exam:->cxfShould this be performed at the bedside?->YesFINAL REPORT CLINICAL HISTORY: cxf TECHNIQUE: 1 view of the chest. COMPARISON: None IMPRESSION: Pulmonary vascular congestion is noted with diffuse bilateral interstitial opacities and left lung atelectasis. There is blunting of the left costophrenic angle. The cardiomediastinal silhouette is magnified by technique with sternotomy wires. Signed: Partha Abreu MDReport Verified Date/Time: 09:32:51 Reading Location: [facility] Radiology Reading Room B-TYPE NATRIURETIC FACTOR (BNP)2017-07-16 02:38:00 Test Item Value Reference Range Comments B-TYPE NATRIURETIC PEPTIDE (BEAKER) (test 251 pg/mL 0-100 ovys=064) BASIC METABOLIC [id number] 02:32:00 Test Item Value Reference Range Comments SODIUM (BEAKER) (test 142 meq/L 136-145 kzzt=590) POTASSIUM (BEAKER) (test 4.0 meq/L 3.5-5.1 Specimen slightly pbeb=572) hemolyzed CHLORIDE (BEAKER) (test 106 meq/L 98-107 rcjm=753) CO2 (BEAKER) (test 23 meq/L 22-29 qwvi=905) BLOOD UREA NITROGEN 26 mg/dL 7-21 (BEAKER) (test bdhg=438) CREATININE (BEAKER) (test 1.41 mg/dL 0.57-1.25 Specimen slightly yeck=342) hemolyzed GLUCOSE RANDOM (BEAKER) 152 mg/dL 70-105 (test nshs=766) CALCIUM (BEAKER) (test 8.8 mg/dL 8.4-10.2 flze=153) EGFR (BEAKER) (test 48 mL/min/1.73 sq m ESTIMATED GFR IS NOT mvvv=0183) ACCURATE CREATININE CLEARANCE IN PREDICTING GLOMERULAR FILTRATION RATE. ESTIMATED GFR IS NOT APPLICABLE FOR DIALYSIS PATIENTS. Specimen slightly ictericLACTIC ACID, VENOUS, WHOLE [id number] 02:28:00 Test Item Value Reference Range Comments LACTATE BLOOD VENOUS (2) 2.1 mmol/L 0.5-2.2 Specimen slightly hemolyzed (BEAKER) (test byau=1802) Effective 07/04/2015: Units/Reference Range ChangeNew: 0.5-2.2 mmol/L Previous: 5 -20 mg/dLCBC (HEMOGRAM ONLY)2017-07-16 02:02:00 Test Item Value Reference Range Comments WHITE BLOOD CELL COUNT (BEAKER) (test xeda=679) 13.3 K/ L 3.5-10.5 RED BLOOD CELL COUNT (BEAKER) (test zptb=286) 2.79 M/ L 4.63-6.08 HEMOGLOBIN (BEAKER) (test zhir=255) 9.5 GM/DL 13.7-17.5 HEMATOCRIT (BEAKER) (test ctfi=220) 29.4 % 40.1-51.0 MEAN CORPUSCULAR VOLUME (BEAKER) (test fgvt=805) 105.4 fL 79.0-92.2 MEAN CORPUSCULAR HEMOGLOBIN (BEAKER) (test 34.1 pg 25.7-32.2 bgck=439) MEAN CORPUSCULAR HEMOGLOBIN CONC (BEAKER) (test 32.3 GM/DL 32.3-36.5 lpdm=317) RED CELL DISTRIBUTION WIDTH (BEAKER) (test 13.7 % 11.6-14.4 irvz=070) PLATELET COUNT (BEAKER) (test pjwe=660) 138 K/CU MM 150-450 MEAN PLATELET VOLUME (BEAKER) (test odwd=455) 11.2 fL 9.4-12.4 NUCLEATED RED BLOOD CELLS (BEAKER) (test 0 /100 WBC 0-0 idow=316) HEMOGLOBIN AND [id number] 19:53:00 Test Item Value Reference Range Comments HEMOGLOBIN (BEAKER) (test xmzw=031) 9.4 GM/DL 13.7-17.5 HEMATOCRIT (BEAKER) (test jcsk=093) 29.0 % 40.1-51.0 B-TYPE NATRIURETIC FACTOR (BNP)2017-07-15 16:30:00 Test Item Value Reference Range Comments B-TYPE NATRIURETIC PEPTIDE (BEAKER) (test 155 pg/mL 0-100 yhvl=759) [id number] 16:23:00 Test Item Value Reference Range Comments MAGNESIUM (BEAKER) (test 2.0 mg/dL 1.6-2.6 Specimen slightly hemolyzed niwp=041) BASIC METABOLIC [id number] 16:23:00 Test Item Value Reference Range Comments SODIUM (BEAKER) (test 138 meq/L 136-145 ooyt=328) POTASSIUM (BEAKER) (test 3.9 meq/L 3.5-5.1 Specimen slightly lfuv=675) hemolyzed CHLORIDE (BEAKER) (test 103 meq/L 98-107 zgyj=549) CO2 (BEAKER) (test 26 meq/L 22-29 fhcj=054) BLOOD UREA NITROGEN 21 mg/dL 7-21 (BEAKER) (test tild=041) CREATININE (BEAKER) (test 1.00 mg/dL 0.57-1.25 Specimen slightly gbvz=900) hemolyzed GLUCOSE RANDOM (BEAKER) 145 mg/dL 70-105 (test noeg=655) CALCIUM (BEAKER) (test 8.9 mg/dL 8.4-10.2 acqh=751) EGFR (BEAKER) (test 71 mL/min/1.73 sq m ESTIMATED GFR IS NOT knky=0516) ACCURATE CREATININE CLEARANCE IN PREDICTING GLOMERULAR FILTRATION RATE. ESTIMATED GFR IS NOT APPLICABLE FOR DIALYSIS PATIENTS. Specimen slightly ictericLACTIC ACID, VENOUS, WHOLE [id number] 16:19:00 Test Item Value Reference Range Comments LACTATE BLOOD VENOUS (2) 1.7 mmol/L 0.5-2.2 Specimen slightly hemolyzed (BEAKER) (test jchr=5235) Effective 07/04/2015: Units/Reference Range ChangeNew: 0.5-2.2 mmol/L Previous: 5 -20 mg/dLSpecimen slightly ictericCBC (HEMOGRAM ONLY)2017-07-15 16:09:00 Test Item Value Reference Range Comments WHITE BLOOD CELL COUNT (BEAKER) (test tgat=826) 10.6 K/ L 3.5-10.5 RED BLOOD CELL COUNT (BEAKER) (test wvgh=105) 2.85 M/ L 4.63-6.08 HEMOGLOBIN (BEAKER) (test izjp=216) 9.7 GM/DL 13.7-17.5 HEMATOCRIT (BEAKER) (test blmg=402) 29.5 % 40.1-51.0 MEAN CORPUSCULAR VOLUME (BEAKER) (test imqe=917) 103.5 fL 79.0-92.2 MEAN CORPUSCULAR HEMOGLOBIN (BEAKER) (test 34.0 pg 25.7-32.2 gzed=032) MEAN CORPUSCULAR HEMOGLOBIN CONC (BEAKER) (test 32.9 GM/DL 32.3-36.5 cqor=706) RED CELL DISTRIBUTION WIDTH (BEAKER) (test 13.4 % 11.6-14.4 uztc=317) PLATELET COUNT (BEAKER) (test edrs=361) 127 K/CU MM 150-450 MEAN PLATELET VOLUME (BEAKER) (test burx=938) 11.5 fL 9.4-12.4 NUCLEATED RED BLOOD CELLS (BEAKER) (test 0 /100 WBC 0-0 kaye=966) [id number] 12:47:00 Test Item Value Reference Range Comments ACTIVATED CLOTTING TIME 224 sec TESTED AT [address] (BEAKER) (test gfvj=340) [place] [address] [id number] 12:47:00 Test Item Value Reference Range Comments ACTIVATED CLOTTING TIME 257 sec TESTED AT [place] [id number] [facility] (test rzvj=508) [place] [address] [id number] 12:47:00 Test Item Value Reference Range Comments ACTIVATED CLOTTING TIME 219 sec TESTED AT [address] (BEAKER) (test myte=755) [place] [address]
[2018-09-13] MEDS ORDERED: NA CHLORIDE 0.9% 250 ML IV SCH (11:00)
[2018-09-13] MEDS ORDERED: NA CHLORIDE 0.9% 1,000 ML IV SCH (11:00)
[2018-09-13] MEDS ORDERED: NA CHLORIDE 0.9% 500 ML IV ONE ×3 (11:14→18:41)
[2018-09-13] MEDS: NA CHLORIDE 0.9% 1,000 ML IV SCH (11:25)
[2018-09-13 11:46] LABS: Hematocrit 26.4 % (39.6-49.0)
[2018-09-13] MEDS ORDERED: D5 0.45 NS 1,000 ML IV SCH (12:00)
--- NOTE | 2018-09-13 14:47 | HP ---
Date of Admission: 09/13/2018 Consultants: Benson Fernández MD, GI. Primary Care Physician: Dr. Garcia. Chief Complaint: Hypotension, GI bleed. 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 The patient was admitted to rehab on September 04, now has been having low blood pressure along with multiple loose bowel stools which are dark melenic and are stool guaiac positive. The patient's hemoglobin has also dropped due to his acute symptoms. Hospitalist service who is covering for Dr. Garcia was contacted. The patient has a past medical history of liver cirrhosis, recent history of GI bleed, had an endoscopy done at [facility], which found an esophageal ulcer with blood clot. The patient also has hypertension, coronary artery disease, hyperlipidemia, diabetes, diverticulosis , BPH, carotid artery disease, heart failure, and anemia. The patient does report some abdominal discomfort and diarrhea. Otherwise, denies any nausea or vomiting. No fever or chills. The patient's symptoms are constant, moderate, progressively worsening. Family including also has some dementia and is not a good historian as well as daughter who is able to provide minimal history as she lives in [place]. When seen in the rehab facility, he was awake, alert, oriented to self and place, in some mild distress. The patient was recommended to be transferred to ICU for further evaluation and management. Past Medical History: Small bowel obstruction in the past, hypertension, coronary artery disease, hyperlipidemia, type 2 diabetes mellitus, diverticulosis, benign prostatic hypertrophy, carotid artery disease, diastolic congestive heart failure, cirrhosis of the liver, and anemia. Past Surgical History: Significant for coronary artery angioplasty with stent placement, coronary artery bypass surgery, and cholecystectomy. Allergies: TO METFORMIN AND LEVAQUIN. Medications: List reviewed. Family History: Significant for Alzheimer disease, stroke, and lung cancer. Social History: The patient has a prior history of smoking. No current use of tobacco. No alcohol use or illicit drug use. Review of Systems: Limited due to patient's medical condition, however, 10 point system reviewed and negative except as per HPI. Physical Examination: Vital Signs: Heart rate 105, blood pressure 85/53, respirations 16, O2 of 99% on 2 L via nasal cannula. Temperature, T-max is 100.2, T current was 99.1. General: Awake, alert, oriented x2. Elderly male, in some mild distress. HEENT: Normocephalic, atraumatic. PERRLA. EOMI. Poor dentition. Conjunctivae anicteric. Neck: Supple. No JVD. Trachea midline. CV: S1, S2. Sinus tachycardia. Peripheral pulses weak bilaterally. Respiratory: Diminished breath sounds. No wheezing or stridor. No use of accessory muscles. Gastrointestinal: Abdomen is soft. Mild tenderness to palpation. No rebound or guarding. No distention. Positive bowel sounds. Extremities: No clubbing, cyanosis, or edema. No calf tenderness. Neuro: Cranial nerves 2 through 12 intact grossly. No focal neurological deficit. Speech is normal. Skin: No rashes. Normal skin turgor. Psych: Deferred. Laboratory Data: Sodium 137, potassium 3.9, chloride 105, CO2 of 28, BUN 39, creatinine 2.41, glucose 181, calcium 8.3. Hemoglobin and hematocrit of 8.6 and 26.4, down from 9.4 and 28.9. WBC 3.4, platelets 135. Urine culture from 09/03/2018 shows pseudomonas. Hemoccult blood is positive. Blood cultures, no growth to date. Acute abdomen series, personally reviewed, shows mild interstitial pulmonary edema suspected, heart is quite prominent size with sternotomy wires present. No diastolic diaphragmatic free air seen. Stomach appears distended with air. Bowel obstruction not identified. Small diverticula present involving the colon. Assessment: An 88-year-old male with: 1. Acute gastrointestinal bleed, likely upper source. The patient had recent history of esophageal ulcer, which was treated at [facility]. We will start on IV PPI. Dr. Fernández with GI has been consulted. We will continue to monitor hemoglobin and hematocrit. 2. Acute blood loss anemia. Monitor hemoglobin and hematocrit, transfuse for hemoglobin less than 7 secondary to above. 3. Acute hypotension secondary to gastrointestinal bleed and volume loss. We will give 0.5 L bolus of normal saline due to pulmonary edema and resume normal saline at 75 mL/h. We will continue to monitor closely. 4. Acute cystitis without hematuria secondary to pseudomonas. The patient is allergic to Levaquin. We will switch to cefepime. We will need to confirm how long the patient has been treated, this culture is from September 03. 5. Acute kidney injury. Creatinine has gone up to 2.41, possibly due to prerenal azotemia versus acute tubular necrosis. We will consult Nephrology. We will continue to monitor creatinine level. 6. Mild cognitive deficit. 7. Debility. We will continue physical therapy. 8. Generalized weakness. 9. Cirrhosis of the liver. 10. Anemia. 11. Cerebrovascular accident. 12. Coronary artery disease, [place] artery and [place] heart status post coronary artery bypass graft and stent placement. 13. Carotid artery disease. 14. Mixed hyperlipidemia, stable. 15. Diabetes mellitus type 2, non-insulin requiring. We will continue with Accu-Cheks and start on sliding scale insulin. 16. Aortic valve stenosis. 17. Benign prostatic hypertrophy, stable. 18. History of diverticulosis. Plan: Admit patient to ICU. Place as inpatient. Length of stay greater than 2 midnights. Code status is full. CHELLE Voice ID: [id number] [id number]
[2018-09-13] MEDS: OCTREOTIDE 500 MCG in NA CHLORIDE 0.9% 500 ML IV SCH (14:58)
[2018-09-13] MEDS: PANTOPRAZOLE INJ 80 MG in NA CHLORIDE 0.9% 250 ML IV SCH (14:58)
[2018-09-13 15:20] LABS: Urine Appearance CLEAR; Urine Bilirubin NEGATIVE (NEG); Urine Blood NEGATIVE (NEG); Urine Color YELLOW; Urine Glucose NEGATIVE (NEG); Urine Protein NEGATIVE (NEG); Urine Urobilinogen 0.2 mg/dL (0.2-1.0)
[2018-09-13 15:28] LABS: Urine Bacteria <20 /HPF (NONE SEEN); Urine Culture Reflex Order NOT NEEDED; Urine RBC <5 /HPF (NONE SEEN)
[2018-09-13] MEDS: CEFEPIME/SWI 2gm 2 GM/20 ML SYR IV SCH (15:48)
[2018-09-13] MEDS ORDERED: LACTULOSE 20 GM/30 ML UCUP PO PRN (16:30)
[2018-09-13] MEDS ORDERED: NA CHLORIDE 0.9% 1,000 ML IV ONE (16:38)
[2018-09-13] MEDS ORDERED: NA CHLORIDE 0.9% 500 ML ONE (18:59)
[2018-09-13 19:20] LABS: Hematocrit 27.5 % (39.6-49.0)
[2018-09-13] MEDS ORDERED: PANTOPRAZOLE 40 MG INJ IVP SCH (21:00)
[2018-09-14] MEDS ORDERED: NA CHLORIDE 0.9% 500 ML IV ONE ×2 (00:42→05:37)
[2018-09-14] MEDS: OCTREOTIDE 500 MCG in NA CHLORIDE 0.9% 500 ML IV SCH ×3 (00:54→20:34)
[2018-09-14] MEDS: PANTOPRAZOLE INJ 80 MG in NA CHLORIDE 0.9% 250 ML IV SCH ×3 (00:54→20:34)
[2018-09-14] MEDS: NA CHLORIDE 0.9% 1,000 ML IV SCH ×2 (00:55→06:40)
[2018-09-14 01:18] LABS: Protime INR 1.18
[2018-09-14 01:32] LABS: Absolute Lymphocytes (CBC) 0.4 K/uL (0.7-4.9); Basophils % 0.5 % (0-1.3); Hematocrit 26.4 % (39.6-49.0); MPV 9.1 fL (7.6-11.3); RBC Red Blood Cell Count 2.61 M/uL (4.33-5.43)
[2018-09-14 01:59] LABS: ALT/SGPT 15 U/L (12-78); AST/SGOT 13 U/L (15-37); Albumin 2.2 g/dL (3.4-5.0); Alkaline Phosphatase 88 U/L (45-117); BUN Blood Urea Nitrogen 33 mg/dL (7-18); Bicarbonate 23 mmol/L (21-32); CKMB Creatine Kinase MB < 1.0 ng/mL (0.3-3.6); Creatine Phosphokinase 10 U/L (39-308); Ferritin 90.3 ng/mL (26-388); Glucose Level 113 mg/dL (74-106); NT PRO-BNP 4491 pg/mL (<450); Potassium 4.2 mmol/L (3.5-5.1); Protein, Total 5.6 g/dL (6.4-8.2); Sodium Level 143 mmol/L (136-145); Troponin I 0.04 ng/mL (0.0-0.045)
[2018-09-14 02:21] LABS: Blood Morphology Comment NOT SEEN (NOT SEEN); Platelet Estimate DECR; Urine White Blood Cell Casts OK
--- NOTE | 2018-09-14 05:15 | CON ---
Date of Consultation: 09/13/2018 Chief Complaint: Acute on chronic kidney injury. History Of Present Illness: Patient has chronic kidney disease stage 3. He developed severe prerenal azotemia, nonoliguric ATN. Patient is in ICU and is receiving IV fluids for volume resuscitation. He developed GI bleeding and is admitted to ICU, transferred from rehab unit. Patient had blood work done, which revealed progressively worse azotemia and urine output declined today. Patient received normal saline bolus for volume resuscitation. Patient has borderline hypotension. Blood work today showed sodium 137, potassium 3.9, chloride 105, CO2 of 28, BUN 39, creatinine 2.41, glucose 181, calcium 8.3. Yesterday, blood work showed BUN 31, creatinine 1.86. Baseline creatinine is 1.3. Patient has chronic kidney disease stage 3. Patient cannot provide review of systems. He is lethargic and admitted to ICU for GI bleeding. Hemoglobin level was obtained to assess anemia. Patient is 88 -year-old man, who was admitted to rehab floor who was transitioned from [facility] and he currently is in ICU for GI bleeding and is undergoing workup for acute GI bleeding. He had melenic stool. Stool guaiac was positive. Patient's hemoglobin has dropped and he is admitted to acute setting , currently is in ICU. Patient has history of hypertension, coronary artery disease, hyperlipidemia, diabetes, diverticulosis, BPH, carotid artery disease, heart failure, and anemia. Patient was complaining of discomfort and diarrhea, abdominal pain. He denied vomiting, nausea and did not have chills. Family cannot provide recent history. Patient is not a good historian. Review of Systems: Unobtainable. Past Medical History: Small bowel obstruction, hypertension, coronary artery disease, hyperlipidemia, diabetes mellitus type 2, diverticulosis, benign prostatic hypertrophy, carotid artery disease, diastolic congestive heart failure, cirrhosis of the liver, and anemia. Past Surgical History: Significant for coronary artery angioplasty, stent placement, coronary artery bypass surgery, cholecystectomy. Family History: Alzheimer disease, stroke, and lung cancer. Social History: Patient has history of tobacco. He quit tobacco some time ago and there is no current use of tobacco, no alcohol, no street drug. Physical Examination: Vital Signs: Blood pressure 85/53, heart rate 105, respiratory rate 16, SpO2 of 99% on 2 L. T-max 100.2, T current 99.1. Eyes: Anicteric sclerae. EOMI. Ears, Nose, Mouth, and Throat: Oral mucosa moist. No pallor. Neck: Supple. No bruits. Lungs: Clear to auscultation bilaterally. No wheezing. No rhonchi. Heart: S1, S2. Tachycardia, 2/6 systolic murmur. Abdomen: Soft, benign, nontender. No guarding. Extremities: No clubbing, no cyanosis. Neurological: Patient is lethargic. Cranial nerves intact. No tremor. Skin: no oozing , no drainage Laboratory Data: Sodium 137, potassium 3.9, chloride 105, CO2 of 28, creatinine 2.41, calcium 8.3. Hemoglobin and hematocrit are 8.6 and 26.4, WBC 3.4. Hemoccult is positive. Urine cultures on September 03 showed Pseudomonas. Impression And Plan: 1. Gastrointestinal bleeding. Patient is on a PPI drip. Patient is consulted by through operator for further workup and management. 2. Acute blood loss. Monitor hemoglobin level and transfuse packed red blood cells as needed. 3. Hypotension. Continue volume resuscitation with normal saline boluses as well as pressors. 4. Acute cystitis with Pseudomonas. Continue cefepime. 5. Acute kidney injury due to prerenal azotemia and acute tubular necrosis. Continue treatment. Monitor fluid balance and avoid nephrotoxic medication. 6. Cirrhosis of the liver. Screen for coagulopathy. TRANG/MODAnna Voice ID: [id number] Report ID: [id number] STEFFANY
[2018-09-14 05:29] LABS: Absolute Lymphocytes (CBC) 0.4 K/uL (0.7-4.9); Basophils % 0.4 % (0-1.3); Lymphocytes % 13.1 % (15.3-44.8); MPV 9.2 fL (7.6-11.3); RBC Red Blood Cell Count 2.71 M/uL (4.33-5.43)
--- NOTE | 2018-09-14 05:37 | P.PN ---
Date of Service: 09/14/18 Patient with hematuria. Hemoglobin is stable. Blood pressure has decreased. Patient is responding to boluses. Will get urology consultation. Patient may need bladder irrigation if hematuria is persistent. Patient had a urinanalysis this afternoon which did not reveal any blood in urine. Wondering if this could be related to trauma. Will monitor hematuria closely. Monitor labs and check additional studies. Patient also has concerning cardiac issues. Will get an echocardiogram to reassess.
[2018-09-14 05:47] LABS: Potassium 4.2 mmol/L (3.5-5.1)
[2018-09-14] MEDS: TAMSULOSIN 0.4 MG SR CAP PO SCH (09:00)
[2018-09-14] MEDS: SOD FERRIC GLUC COMPLX/SUCROSE 125 MG in NA CHLORIDE 0.9% 100 ML IV SCH (09:23)
--- NOTE | 2018-09-14 10:39 | RAD REPORT ---
EXAM DESCRIPTION: RAD - Chest Single View - 09/14/2018 10:35 am CLINICAL HISTORY: R/O Pneumonia Chest pain. COMPARISON: <Comparisons> FINDINGS: Portable technique limits examination quality. Mild interstitial pulmonary edema. The heart is moderately enlarged with sternotomy wires present. No displaced fractures. IMPRESSION: Mild CHF.
--- NOTE | 2018-09-14 11:16 | P.PN ---
Subjective Date of Service: 09/14/18 Subjective pt recently admitted to [facility] for GI bleeding, transferred to rehab, was hypotensive with melena pt baseline Cr ~1.2 , now transffered to ICU with Cr 1.8 today rales on exam CXR: with mild edema will DC IVF albumin Start on levophed if needed to keep MAP >65 possible EGD today Physical Examination - Vital Signs Temperature: 97.7 F Blood Pressure: 91/48 Pulse: 99 Respirations: 16 Pulse Ox (%): 100 - Physical Exam General: Oriented x3 HEENT: Atraumatic Neck: Supple, JVD not distended, Without JVD or thyroid abnormality Respiratory: Normal air movement, Crackles/rales Cardiovascular: No edema, Normal pulses, Regular rate/rhythm, Normal S1 S2, Abnormal S3, No gallops, No rubs, No murmurs Gastrointestinal: Normal bowel sounds, Soft and benign, No tenderness - Studies Laboratory Data (last 24 hrs) 09/14/18 04:54: Sodium 143, Potassium 4.2, BUN 33 H, Creatinine 1.88 H, Glucose 110 H 09/14/18 04:54: WBC 3.4 L D, Hgb 8.9 L, Hct 28.0 L, Plt Count 103 L 09/14/18 01:00: PT 13.8 H, INR 1.18, APTT 29.7 09/14/18 01:00: WBC 2.8 L D, Hgb 8.5 L, Hct 26.4 L, Plt Count 109 L 09/14/18 01:00: Sodium 143, Potassium 4.2, BUN 33 H, Creatinine 1.95 H, Glucose 113 H, Total Bilirubin 1.0, AST 13 L, ALT 15, Alkaline Phosphatase 88, Troponin I 0.04 09/13/18 19:00: Hgb 8.7 L, Hct 27.5 L 09/13/18 14:03: Hgb 8.4 L, Hct 26.0 L 09/13/18 11:18: Hgb 8.6 L, Hct 26.4 L Assessment And Plan - Current Problems (Diagnosis) (1) GERARDO (acute kidney injury) Current Visit: Yes Status: Acute (2) Anemia Current Visit: No Status: Active - Plan GERARDO initially due to prerenal azotemia + ischemci ATN from hypoprefusion UA: no prot or bld will order renal US hold IVF start on Albumin and levophed if needed GI bleeding Monitor H/h GI on board transfuse to keeop Hb >7.0 \ Cont IV iron for now CHF mild pulmonary edema will hold on IVF for now Rpt CXR tommorow and might give lasix + albumin Hx of cirrhosis \monitor LFT
--- NOTE | 2018-09-14 11:27 | ECHO ---
HEIGHT: 5 ft 7 in WEIGHT: 177 lb 0 oz DATE OF STUDY: 09/14/[address]: Cherelle Castro MD 2-DIMENSIONAL: YES M.MODE: YES DOPPLER: YES COLOR FLOW: YES TDS: NO PORTABLE: YES DEFINITY: NO BUBBLE STUDY: NO DIAGNOSIS: CONGESTIVE HEART FAILURE CARDIAC HISTORY: CATHERIZATION: YES SURGERY: YES PROSTHETIC VALVE: NO PACEMAKER: NO MEASUREMENTS (cm) DIASTOLIC (NORMALS) SYSTOLIC (NORMALS) IVSd 1.2 (0.6-1.2) LA Diam 5.4 (1.9-4.0) LVEF 79% LVIDd 4.5 (3.5-5.7) LVIDs 2.4 (2.0-3.5) %FS 48% LVPWd 1.0 (0.6-1.2) Ao Diam 2.1 (2.0-3.7) 2 DIMENSIONAL ASSESSMENT: RIGHT ATRIUM: NORMAL LEFT ATRIUM: DILATED RIGHT VENTRICLE: NORMAL LEFT VENTRICLE: LEFT VENTRICULAR HYPERTROPHY TRICUSPID VALVE: NORMAL MITRAL VALVE: NORMAL PULMONIC VALVE: NORMAL AORTIC VALVE: NORMAL PERICARDIAL EFFUSION: NONE AORTIC ROOT: NORMAL LEFT VENTRICULAR WALL MOTION: DECREASED LEFT VENTRICULAR COMPLIANCE. DOPPLER/COLOR FLOW: MILD AORTIC AND TRICUSPID REGURGITATION. SEVERE PULMONARY HYPERTENSION. RIGHT VENTRICULAR SYSOLIC PRESSURE 72 mmHg. COMMENTS: MILD AORTIC AND TRICUSPID REGURGITATION. SEVERE PULMONARY HYPERTENSION. RIGHT VENTRICULAR SYSOLIC PRESSURE 72 mmHg. DECREASED LEFT VENTRICULAR COMPLIANCE. NORMAL LEFT VENTRICULAR EJECTION FRACTION. MILD LEFT VENTRICULAR HYPERTROPHY. TECHNOLOGIST: Rebecca ALBERT
[2018-09-14] MEDS: ALBUMIN HUMAN 25% 200 ML IV SCH ×2 (11:37→12:46)
[2018-09-14] MEDS ORDERED: CHOLESTYRAMINE/ASP 4 GM/PKT PO ONE (12:00)
[2018-09-14] MEDS: CEFEPIME/SWI 2gm 2 GM/20 ML SYR IV SCH (13:36)
--- NOTE | 2018-09-14 15:00 | RAD REPORT ---
EXAM DESCRIPTION: US - Renal Ultrasound-Complete - 09/14/2018 2:33 pm CLINICAL HISTORY: Acute kidney injury COMPARISON: None. FINDINGS: The right kidney measures 10.5 x 6.0 x 5.5 cm. The left kidney measures 10.3 x 4.6 x 5.1 cm. Cortical thinning is evident with an increase in cortical echogenicity. Pattern is consistent wit h medical renal disease. No hydronephrosis or suspicious renal mass. A 7 millimeter echogenic focus l ower pole left kidney may be a cortical calcification or a small fatty mass. This is not seen as a si gnificant finding. Bladder is mostly contracted. No gross bladder abnormality seen. IMPRESSION: No hydronephrosis or suspicious renal mass. Underlying medical renal disease changes are evident in each kidney.
--- NOTE | 2018-09-14 19:15 | CON ---
History Of Present Illness: Chris Mcwilliams is a patient who was admitted from the rehab floor for GI bleed. He was transferred originally from [facility], currently undergoing workup for GI bleed . He has guaiac positive stool also. He has cirrhosis of the liver. [place] catheter was placed yest erday and today I saw some blood in the D[place] catheter, which may be due more like to [place] trauma an d nurse staff irrigated it and it cleared up nicely. I do not see anything that needs any serious ur ological intervention at this point. Patient also has acute on chronic kidney injury and has been se en by Nephrology. Past Medical History: Small-bowel obstruction, hypertension, coronary artery disease, hyperlipidemia , diabetes type 2, diverticulosis, BPH, carotid artery disease, diastolic congestive heart failure, c irrhosis of the liver, and anemia. Review of Systems: Unable to obtain. Past Surgical History: Coronary artery angioplasty, stent placement, coronary artery bypass, cholecy stectomy. Family History: Significant for Alzheimer disease, stroke, and cancer. Social History: Patient has history of tobacco smoking, quit sometime in the past. No alcohol. No street drugs. Physical Examination: General: Patient was lying in bed, stable. Vital Signs: Stable. HEENT: Atraumatic, normocephalic. Lungs: Clear. Heart: S1, S2. Abdomen: Soft, nontender. : D[place] catheter draining clear to very light pink urine. Laboratory Data: Electrolytes reviewed. CBC: White count 3.4, H and H is 8.9 and 28, platelet coun t 103. Coag studies show PT slightly elevated at 13.8, PTT 29.7. Chemistry: Sodium 143, potassium 4.2, chloride 113, carbon dioxide 23, BUN 33, creatinine 1.9, GFR 34, glucose 110, calcium 7.2. Urin e studies before showed clear urine, esterase negative, nitrite negative, blood negative, WBCs negati ve. Assessment: Most likely D[place] Santos trauma due to Dos Santos catheter placement. Patient with cirrhosis of the liver and probably has some bleeding diathesis that is causing a GI bleed and things like that, thus recommend manual irrigation for now. No further urological intervention. PB/MODL Voice ID: [id number] Report ID: [id number]
--- NOTE | 2018-09-14 22:14 | P.PN ---
Subjective Date of Service: 09/14/18 Patient seen and examined at bedside. No family at bedside. Chart reviewed and case discussed with nursing staff. No further active GI bleeding noted at this time. noted to have hematuria in D[place] bag Review of Systems 10-point ROS is otherwise unremarkable Physical Examination - Vital Signs Temperature: 97.6 F Blood Pressure: 111/64 Pulse: 93 Respirations: 17 Pulse Ox (%): 94 - Physical Exam General: Alert, In no apparent distress, Other (Elderly) HEENT: Atraumatic, PERRLA, EOMI Neck: Supple, JVD not distended Cardiovascular: Normal S1 S2, Irregular heart rate/rhythm Gastrointestinal: Normal bowel sounds, No tenderness Musculoskeletal: No tenderness Integumentary: No rashes Neurological: Normal speech, Normal tone, Normal affect - Studies Laboratory Data (last 24 hrs) 09/14/18 04:54: Sodium 143, Potassium 4.2, BUN 33 H, Creatinine 1.88 H, Glucose 110 H 09/14/18 04:54: WBC 3.4 L D, Hgb 8.9 L, Hct 28.0 L, Plt Count 103 L 09/14/18 01:00: PT 13.8 H, INR 1.18, APTT 29.7 09/14/18 01:00: WBC 2.8 L D, Hgb 8.5 L, Hct 26.4 L, Plt Count 109 L 09/14/18 01:00: Sodium 143, Potassium 4.2, BUN 33 H, Creatinine 1.95 H, Glucose 113 H, Total Bilirubin 1.0, AST 13 L, ALT 15, Alkaline Phosphatase 88, Troponin I 0.04 Microbiology Data (last 24 hrs): 09/13/18 11:59 Stool Clostridium difficile Toxin Assay - Final Assessment And Plan - Plan An 88-year-old male with: 1. Acute gastrointestinal bleed, likely upper source. The patient had recent history of esophageal ulcer, which was treated at [facility]. We will start on IV PPI. Dr. Fernández with GI has been consulted. We will continue to monitor hemoglobin and hematocrit. 2. Acute blood loss anemia. Monitor hemoglobin and hematocrit, transfuse for hemoglobin less than 7 secondary to above. 3. Acute hypotension secondary to gastrointestinal bleed and volume loss. We will give 0.5 L bolus of normal saline due to pulmonary edema and resume normal saline at 75 mL/h. Patient may need to be started on Levophed if blood pressure not stabilizes. Echo ordered, pending. We will continue to monitor closely. 4. Acute cystitis without hematuria secondary to pseudomonas. The patient is allergic to Levaquin, continue with cefepime. We will need to confirm how long the patient has been treated, this culture is from September 03. 5. Acute kidney injury. Improving. possibly due to prerenal azotemia versus acute tubular necrosis. Consult Nephrology, medications patient. We will continue to monitor creatinine level. 6. Mild cognitive deficit. 7. Debility. We will continue physical therapy. 8. Generalized weakness. 9. Cirrhosis of the liver. 10. Anemia. 11. Cerebrovascular accident. 12. Coronary artery disease, [place] artery and [place] heart status post coronary artery bypass graft and stent placement. 13. Carotid artery disease. 14. Mixed hyperlipidemia, stable. 15. Diabetes mellitus type 2, non-insulin requiring. We will continue with Accu -Cheks and start on sliding scale insulin. 16. Aortic valve stenosis. 17. Benign prostatic hypertrophy, stable. 18. History of diverticulosis. Plan: Continue to monitor in the ICU. Pending GI evaluation and blood pressure stabilization.
[2018-09-15 04:54] LABS: Absolute Lymphocytes (CBC) 0.4 K/uL (0.7-4.9); Basophils % 0.3 % (0-1.3); Hematocrit 26.4 % (39.6-49.0); MPV 9.2 fL (7.6-11.3); RBC Red Blood Cell Count 2.63 M/uL (4.33-5.43)
[2018-09-15 05:05] LABS: Potassium 3.9 mmol/L (3.5-5.1)
[2018-09-15] MEDS: PANTOPRAZOLE INJ 80 MG in NA CHLORIDE 0.9% 250 ML IV SCH ×2 (06:48→17:08)
[2018-09-15] MEDS: OCTREOTIDE 500 MCG in NA CHLORIDE 0.9% 500 ML IV SCH ×2 (07:32→17:08)
--- NOTE | 2018-09-15 08:10 | RAD REPORT ---
EXAM DESCRIPTION: Ly Single View09/15/2018 5:45 am CLINICAL HISTORY: Shortness of breath COMPARISON: September 14, 2018 FINDINGS: Mild bilateral pulmonary opacities are unchanged Heart is moderately enlarged. Postsurgical changes involve the chest. IMPRESSION: Mild CHF
[2018-09-15] MEDS: TAMSULOSIN 0.4 MG SR CAP PO SCH (08:43)
[2018-09-15] MEDS: SOD FERRIC GLUC COMPLX/SUCROSE 125 MG in NA CHLORIDE 0.9% 100 ML IV SCH (09:07)
[2018-09-15] MEDS: CEFEPIME/SWI 2gm 2 GM/20 ML SYR IV SCH (14:17)
--- NOTE | 2018-09-15 16:10 | P.PN ---
Subjective Date of Service: 09/15/18 Patient seen and examined at bedside. No family at bedside. Chart reviewed and case discussed with nursing staff. No further active GI bleeding noted at this time. H&H stable noted to have hematuria in [place] bag; Review of Systems 10-point ROS is otherwise unremarkable Physical Examination - Vital Signs Temperature: 97.6 F Blood Pressure: 111/64 Pulse: 93 Respirations: 17 Pulse Ox (%): 94 - Physical Exam General: Alert, In no apparent distress, Other (Elderly, ill appearing) Neck: Supple, JVD not distended Respiratory: Normal air movement, Crackles/rales Cardiovascular: Regular rate/rhythm, Normal S1 S2 Gastrointestinal: Normal bowel sounds, No tenderness Musculoskeletal: No tenderness - Studies Laboratory Data (last 24 hrs) 09/15/18 04:24: Sodium 143, Potassium 3.9, BUN 29 H, Creatinine 1.56 H, Glucose 140 H 09/15/18 04:24: WBC 4.6 D, Hgb 8.7 L, Hct 26.4 L, Plt Count 115 L Microbiology Data (last 24 hrs): 09/13/18 11:59 Stool Clostridium difficile Toxin Assay - Final Assessment And Plan - Plan An 88-year-old male with: 1. Acute gastrointestinal bleed, likely upper source. The patient had recent history of esophageal ulcer, which was treated at [facility]. We will continue on IV PPI. Dr. Fernández with GI has been consulted. We will continue to monitor hemoglobin and hematocrit, stable at this time. 2. Acute blood loss anemia. Monitor hemoglobin and hematocrit, transfuse for hemoglobin less than 7 secondary to above. 3. Acute hypotension secondary to gastrointestinal bleed and volume loss. Stabilized blood pressure. Patient did not require any pressors. Echo with severe pulmonary hypertension pending. We will continue to monitor closely. 4. Acute cystitis without hematuria secondary to pseudomonas. The patient is allergic to Levaquin, continue with cefepime. Will continue with the antibiotics at this time, likely discontinue antibiotics prior to discharge 5. Acute kidney injury. Improving. possibly due to prerenal azotemia versus acute tubular necrosis. Consult Nephrology, medications patient. We will continue to monitor creatinine level. 6. Mild cognitive deficit. 7. Debility. We will continue physical therapy. 8. Generalized weakness. 9. Cirrhosis of the liver. 10. Anemia. 11. Cerebrovascular accident. 12. Coronary artery disease, [place] artery and [place] heart status post coronary artery bypass graft and stent placement. 13. Carotid artery disease. 14. Mixed hyperlipidemia, stable. 15. Diabetes mellitus type 2, non-insulin requiring. We will continue with Accu -Cheks and start on sliding scale insulin. 16. Aortic valve stenosis. 17. Benign prostatic hypertrophy, stable. 18. History of diverticulosis. 19. Pulmonary hypertension: Pulmonology consulted, awaiting recommendations. Plan: Continue to monitor in the ICU. Pending GI and pulmonology evaluation.
--- NOTE | 2018-09-15 17:21 | PN ---
Subjective: Patient is resting in bed, stable. H and H are stable. Blood pressure is stable. Objective: Patient had a paraphimosis, I guess from the catheter placement. The foreskin was never reduced. I came by and squeezed an edema out of the foreskin and glans penis and was able to reduce the paraphimosis. Assessment And Plan: I recommend leave it down for at least 3 days for all the edema to subside and then it can be cleaned and reduced, but the foreskin is not to be left retracted due to the fact that he was never circumcised. Urine color is clear today, so no more gross hematuria. I think he shoul d do well for now. He is still pending GI workup for GI bleed. SERVANDO/MAXIMILIANO Voice ID: [id number] Report ID: [id number]
--- NOTE | 2018-09-15 20:42 | P.CNS ---
Date of Consult: 09/15/18 Reason for Consult: Pulmonary hypertension Chief Complaint: GI bleeding History of Present Illness: Patient is 88 years of age admitted with melenic stools GI bleeding denies any pulmonary complaints was found to have pulmonary hypertension quit smoking a long time. Patient was in inpatient rehab was transitioned from [facility] in [place] again for GI bleeding and diffuse muscle weakness was admitted with melenic stools low blood pressure transfer to the ICU blood pressure is little low otherwise stable Allergies levofloxacin [From Levaquin] Allergy (Verified 06/16/17 01:09) Rash metformin Allergy (Verified 06/16/17 01:09) Rash Home Medications: Metoprolol Tartrate [Lopressor*] 25 mg PO BID 02/03/12 Docusate Sodium [Colace] 100 mg PO BID 07/04/12 Pantoprazole [Protonix Tab*] 40 mg PO DAILY 09/24/15 Lactulose 20 gm PO TID PRN 09/04/18 Spironolactone [Aldactone] 25 mg PO DAILY 09/04/18 Tamsulosin [Flomax*] 0.4 mg PO DAILY 09/04/18 Torsemide [Demadex] 20 mg PO DAILY 09/04/18 - Past Medical/Surgical History Diabetic: No -: boderline DM, metabolic encephalopathy, dana, anemia -: NH, chf -: afib -: hyperlipidemia -: bowel obstruction -: htn -: divericulitis -: bph -: cad -: hcc -: gi bleed -: dm -: cabg -: heart stents -: colostomy - Family History Brother Notes: alzheimers - Social History Smoking Status: Unknown if ever smoked Alcohol use: No CD- Drugs: No Caffeine use: No Place of Residence: Home Review of Systems General: Weakness Gastrointestinal: Melena Physical Examination Temp Pulse Resp BP Pulse Ox 97.6 F 92 H 17 133/64 97 09/15/18 16:10 09/15/18 18:00 09/15/18 18:00 09/15/18 18:00 09/15/18 18:00 General: Alert, In no apparent distress, Oriented x3 Neck: Supple Respiratory: Clear to auscultation bilaterally Cardiovascular: No edema, Normal S1 S2 Gastrointestinal: Normal bowel sounds, Soft and benign Laboratory Data (last 24 hrs) 09/15/18 04:24: Sodium 143, Potassium 3.9, BUN 29 H, Creatinine 1.56 H, Glucose 140 H 09/15/18 04:24: WBC 4.6 D, Hgb 8.7 L, Hct 26.4 L, Plt Count 115 L - Problems (1) Pulmonary hypertension Current Visit: Yes Status: Acute Plan: Patient was diagnosed to have severe pulmonary hypertension without right ventricular dilatation was likely due to underlying diastolic dysfunction he does have left ventricular hypertrophy patient denies any pulmonary complaints chest x-ray shows a very impressive cardiomegaly oxygenation satisfactory at this time no intervention is recommended for pulmonary hypertension especially secondary is probably most likely in his condition continue with diuretics he will need to be followed up as an outpatient to with the another echocardiogram in 4-6 weeks or longer blood pressure is now stabilized and proceed with endoscopy patient was transfused 1 unit of packed red blood cells labs x-rays reviewed
--- NOTE | 2018-09-15 22:12 | PN ---
Date of Progress Note: 09/15/2018 Subjective: Patient was admitted with acute kidney injury. After transfer from rehab, patient was f ound to have drop in his blood pressure. Physical Examination: Vital Signs: When I saw the patient, blood pressure 128/58, pulse of 80, afebrile. Patient still tran s good urine output of 500. Chest: Clear to auscultation. Heart: S1, S2. Regular. Abdomen: Soft, nontender. EXTREMITIES: No edema. Laboratory Data: H and H 8.7/26.4. Sodium 143, potassium 3.9, bicarb 21, BUN 29, creatinine down to 1.5, T-sat of 72. Current Medications: The patient on its include cefepime, Flomax, lactulose, pantoprazole. 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 I am going to continue to monitor. 2.Hypertension, currently blood pressure controlled. Keep holding all blood pressure medication. 3.Cirrhosis with possible gastrointestinal bleed as by GI. 4.Hematuria, possibly traumatic. Follow up with Urology. SHAINA/MAXIMILIANO Voice ID: [id number] Report ID: [id number]
[2018-09-16] MEDS: OCTREOTIDE 500 MCG in NA CHLORIDE 0.9% 500 ML IV SCH ×3 (02:41→23:00)
[2018-09-16] MEDS: PANTOPRAZOLE INJ 80 MG in NA CHLORIDE 0.9% 250 ML IV SCH ×3 (04:22→23:00)
[2018-09-16 05:17] LABS: Absolute Lymphocytes (CBC) 0.6 K/uL (0.7-4.9); Basophils % 0.4 % (0-1.3); Hematocrit 26.7 % (39.6-49.0); Lymphocytes % 12.8 % (15.3-44.8); MPV 8.7 fL (7.6-11.3); RBC Red Blood Cell Count 2.66 M/uL (4.33-5.43)
[2018-09-16 05:39] LABS: Potassium 3.8 mmol/L (3.5-5.1)
[2018-09-16 06:06] VITALS: BMI 29.0
[2018-09-16] MEDS: TAMSULOSIN 0.4 MG SR CAP PO SCH (09:25)
--- NOTE | 2018-09-16 12:41 | P.PN ---
Subjective Date of Service: 09/16/18 Subjective: Improving Subjective pt recently admitted to [facility] for GI bleeding, transferred to rehab, was hypotensive with melena pt baseline Cr ~1.2 , now transffered to ICU with Cr 1.8 today doing better bp stable cr improving Cont to be on PPI and octerotide H/H stable Physical Examination - Vital Signs Temperature: 97.9 F Blood Pressure: 127/72 Pulse: 108 Respirations: 18 Pulse Ox (%): 95 - Physical Exam General: Alert, In no apparent distress HEENT: Atraumatic Neck: Supple, Without JVD or thyroid abnormality Respiratory: Normal air movement, Crackles/rales Cardiovascular: No edema, Normal pulses, Regular rate/rhythm, Abnormal S3, No gallops, No rubs, No murmurs Gastrointestinal: Normal bowel sounds, Soft and benign - Studies Laboratory Data (last 24 hrs) 09/16/18 05:05: Magnesium 2.2 09/16/18 05:05: Sodium 147 H, Potassium 3.8, BUN 21 H, Creatinine 1.32 H, Glucose 141 H 09/16/18 05:05: WBC 4.5, Hgb 8.7 L, Hct 26.7 L, Plt Count 111 L Assessment And Plan - Current Problems (Diagnosis) (1) GERARDO (acute kidney injury) Current Visit: Yes Status: Acute (2) Anemia Current Visit: No Status: Active - Plan GERARDO Improving due to ischemci ATN from hypoprefusion UA: no prot or bld Renal US: no hydro GI bleeding Monitor H/h GI on board transfuse to keep Hb >7.0 \ Cont IV iron for now GI on board CHF Euvolemic now Hx of cirrhosis monitor LFT Traumatic hematuria resolved Urology on Balily
--- NOTE | 2018-09-16 14:49 | P.PN ---
Subjective Date of Service: 09/16/18 Chief Complaint: GI bleeding Subjective: Improving Patient seen and examined at bedside. No family at bedside. Chart reviewed and case discussed with nursing staff. No further active GI bleeding noted at this time. H&H stable Hematuria resolved. Blood pressures now stable. Review of Systems 10-point ROS is otherwise unremarkable Physical Examination - Vital Signs Temperature: 97.9 F Blood Pressure: 107/72 Pulse: 92 Respirations: 14 Pulse Ox (%): 98 - Physical Exam General: Alert, In no apparent distress HEENT: Atraumatic, PERRLA, EOMI Neck: Supple, JVD not distended Respiratory: Clear to auscultation bilaterally, Normal air movement Cardiovascular: Regular rate/rhythm, Normal S1 S2 Gastrointestinal: Normal bowel sounds, No tenderness Musculoskeletal: No tenderness Integumentary: No rashes Neurological: Normal speech, Normal tone, Normal affect Lymphatics: No axilla or inguinal lymphadenopathy - Studies Laboratory Data (last 24 hrs) 09/16/18 05:05: Magnesium 2.2 09/16/18 05:05: Sodium 147 H, Potassium 3.8, BUN 21 H, Creatinine 1.32 H, Glucose 141 H 09/16/18 05:05: WBC 4.5, Hgb 8.7 L, Hct 26.7 L, Plt Count 111 L Assessment And Plan - Plan An 88-year-old male with: 1. Acute gastrointestinal bleed, likely upper source. The patient had recent history of esophageal ulcer, which was treated at [facility]. We will continue on IV PPI. Dr. Fernández with GI has been consulted, pending GI evaluation. We will continue to monitor hemoglobin and hematocrit, which remains stable at this time. 2. Acute blood loss anemia. Monitor hemoglobin and hematocrit, transfuse for hemoglobin less than 7 secondary to above. 3. Acute hypotension secondary to gastrointestinal bleed and volume loss. Blood pressures now stable. Patient did not require any pressors. Echo with severe pulmonary hypertension. We will continue to monitor closely. 4. Acute cystitis without hematuria secondary to pseudomonas. The patient is allergic to Levaquin, continue with cefepime. Will continue with the antibiotics at this time, likely discontinue antibiotics prior to discharge 5. Acute kidney injury. Improving. possibly due to pre-renal azotemia versus acute tubular necrosis. Consult Nephrology, medications patient. We will continue to monitor creatinine level. 6. Mild cognitive deficit. 7. Debility. We will continue physical therapy. 8. Generalized weakness. 9. Cirrhosis of the liver. 10. Anemia. 11. Cerebrovascular accident. 12. Coronary artery disease, jena artery and jena heart status post coronary artery bypass graft and stent placement. 13. Carotid artery disease. 14. Mixed hyperlipidemia, stable. 15. Diabetes mellitus type 2, non-insulin requiring. We will continue with Accu -Cheks and start on sliding scale insulin. 16. Aortic valve stenosis. 17. Benign prostatic hypertrophy, stable. 18. History of diverticulosis. 19. Pulmonary hypertension: Pulmonology consulted, awaiting recommendations. Plan: Transfer to the floor as BP now stable. Pending GI evaluation.
[2018-09-16] MEDS: CEFEPIME/SWI 2gm 2 GM/20 ML SYR IV SCH (15:04)
[2018-09-16] MEDS ORDERED: Ringers Lactate 1,000 ML IV ONE (19:11)
[2018-09-16] MEDS ORDERED: LIDOCAINE 1% MPF 5 ML VIAL ONE (19:18)
[2018-09-16] MEDS ORDERED: EPHEDRINE SULF 50 MG/ML VIAL ONE (19:18)
[2018-09-16] MEDS ORDERED: PROPOFOL 200 MG/20 ML VIAL IV ONE (19:18)
--- NOTE | 2018-09-16 19:28 | ENDO RPT ---
[address], [address] EGD PROCEDURE REPORT EXAM DATE: 09/16/2018 PATIENT NAME: Chris Mcwilliams MR#: [id number] BIRTHDATE: 1930 ATTENDING: Benson Fern[address]dez Dr STATUS: inpatient - [facility] FABRICATION TECHNICIAN: Kamilah Stratton RN and Vincenzo Stanton RN INDICATIONS: The patient is a 88 yr old Male here for an EGD due to upper G.I. bleeding and anemia PROCEDURE PERFORMED: EGD with biopsy MEDICATIONS: Per Anesthesia. TOPICAL ANESTHETIC: none CONSENT: The patient understands the risks and benefits of the procedure and understands that these risks include, but are not limited to: sedation, allergic reaction, infection, perforation and/or bleeding. Alternative means of evaluation and treatment include, among others: physical exam, x-rays, and/or surgical intervention. The patient elects to proceed with this endoscopic procedure. DESCRIPTION OF PROCEDURE: During intra-op preparation period all mechanical medical equipment was checked for proper function. Hand hygiene and appropriate measures for infection prevention was taken. Procedure, possible complications, and alternatives including but not limited to the possibility of bleeding, perforation, tear, infection, sepsis, need for surgery, need for blood transfusion, and anesthesia related complications were explained to the patient. After the risks, benefits and alternatives of the procedure were thoroughly explained, Informed consent was verified, confirmed and timeout was successfully executed by the treatment team. The patient was placed in the left lateral position. The patient was anesthetized with topical anesthesia. Through the anesthetized oropharyngeal area, the scope was passed without any difficulty. The Pentax EG-[id number] ([id number]) endoscope was introduced through the mouth and advanced to the second portion of the duodenum. Retroflexed views revealed a small hiatal hernia. The gastroscope was then slowly withdrawn and removed. A small hiatal hernia was found Moderate gastritis was found in the fundus. Moderate Atrophic gastritis was found in the body of the stomach. Multiple biopsies were obtained and sent to pathology. ADVERSE EVENTS: There were no complications. IMPRESSIONS: 1. Small hiatal hernia 2. Moderate hemorrhagic gastritis in the fundus 3. Moderate atrophic gastritis in the body of the stomach, s/p biopsies RECOMMENDATIONS: 1. await biopsy results 2. acid suppression therapy REPEAT EXAM: Benson Fernández Dr eSigned: Benson Fernández Dr 09/16/2018 7:28 PM cc: CPT CODES: ICD9 CODES: PATIENT NAME: Chris Mcwilliams MR#: [id number]
--- NOTE | 2018-09-16 23:11 | CON ---
Date of Consultation: 09/14/2018 Reason For Consultation: GI bleed with hypotension. History Of Present Illness: This patient is an 88-year-old white male with history of small bowel ob struction in the past, hypertension, coronary artery disease, hyperlipidemia, type 2 diabetes, divert iculosis, coronary artery disease, diastolic cardiac failure, cirrhosis of the liver and anemia. The patient presented to the hospital with GI bleed, hypotension. The patient was admitted on September [address] in [place] at [facility], where esophageal ulcer was noted with GI bleeding then. He was treated with PPI therapy there. He came down here for rehab. He was placed up on the floor, started on Lovenox for DVT prophylaxis. Approximately 4-6 days later, patient had GI bleeding again with melena and hematochezia by nurse's report. It appears that the endoscopy at [facility] found an esophageal ulcer with blood clot on top of it as per chart review. The patient was transferred to [facility] ICU for further evaluation and management. Past Medical History: Significant for: 1.Esophageal ulcer at [facility] recently, treated with PPI therapy. 2.Small bowel obstruction in the past. 3.Hypertension. 4.Coronary artery disease. 5.Hyperlipidemia. 6.Diabetes type 2. 7.Diverticulosis. 8.Benign prostatic hypertrophy. 9.Coronary artery disease. 10.Diastolic congestive heart failure. 11.Cirrhosis of liver. 12.Anemia. Past Surgical History: Significant for: 1.Coronary angioplasty with stent placement. 2.Coronary artery bypass. 3.Cholecystectomy. Allergies: TO METFORMIN, LEVAQUIN. Medications: See list. Family History: Father of myocardial infarction, mother at age of 87. There is also some family history of Alzheimer's, stroke, and lung cancer as per chart review. Social History: , 2 daughters. No tobacco. No alcohol. Review of Systems: The patient has GI bleed, melena, hematochezia, hypotension, some dementia, delirium possibly, but de nies any hematemesis, coffee-grounds emesis, nausea, vomiting, abdominal pain, hemoptysis, dysuria. Hematuria is positive and Urology is being consulted for that. No chest pain, shortness of breath, s eizure, syncope, and has some lower extremity edema. Physical Examination: Vital Signs: The patient is 5 feet 7 inches, 185 pounds, BMI 29 kg/sq m. Has a temperature of 97.9 degrees Fahrenheit, pulse of 93, respirations 14, blood pressure 96/52, O2 saturation 100%. General: Elderly male, lying in bed, in no acute distress. HEENT: Normocephalic, atraumatic. Anicteric. Pupils equal, round, and reactive to light. Extraocu lar movements intact. Oropharynx is clear. Neck: Supple. No masses. Respirations: Clear to auscultation bilaterally, though decreased in the bases. Cardiac: Regular rate and rhythm. No gallops or rubs. Abdomen: Positive bowel sounds. Soft, nontender, nondistended. No hepatosplenomegaly. No peritone al or Michele sign. No rebound. Extremities: No clubbing, cyanosis. Has some lower extremity edema. Laboratory Data: The patient has a white count of 3.8, then 3.4 later in the day; hemoglobin 8.9; he matocrit 28.0; MCV of 103; platelet count of 103; polys of 62%, lymphocytes 13%, monocytes 16%, eosin ophils 9%. He had a PT of 13.8, INR of 1.2, PTT of 29.7. Sodium 143, potassium 4.3, chloride 113, b icarb 23, BUN of 33, creatinine of 1.9, glucose 110, calcium of 7.2. Iron saturation, pending; kate tin of 98.3. Total bilirubin 1.0, AST of 13, ALT of 15, alkaline phosphatase of 88, ammonia of 21. LDH of 134, creatine kinase of 10, CK-MB of less than 1. Troponin I of 0.04. B-type natriuretic pep tide elevated at 4491. Total protein of , albumin of 2.2, globulin 3.4. Vitamin B12 is 15 86. All else is negative. Urinalysis is negative. Chest x-ray reveals mild congestive heart failur e. Impression: 1.Gastrointestinal bleed with melena, hematochezia. Patient has history of esophageal ulcer with co litis at [facility] in [place] recently. Will need to continue PPI therapy. Consider Carafate. 2.Hypotension, requiring repeated IV boluses with renal failure. Nephrology is considering switchin g to Levophed and IV pressors. 3.Anemia, hemoglobin at 8.9. 4.Diarrhea, none today, though hyperactive bowel sounds noted earlier. 5.Renal failure. Creatinine of 1.95, down to . Recommendations: 1.Continue PPI IV drip. 2.IV octreotide. 3.Continue IV fluids as per Nephrology. May switch to IV Levophed and pressors soon. 4.Hypotension; continue to avoid fluid overloading with continued IV fluids. 5.Serial H and H, and transfuse p.r.n. 6.Hold on EGD due to persistent repeated hypotensive episodes requiring IV fluid boluses. Await car diopulmonary stabilization in ICU. 7.Await echocardiogram which has been ordered. 8.Questran 1 packet x1 now. 9.Await stool studies. 10.Consider Carafate elixir. 11.Try to obtain [facility] Medical Records. ALEXX/MAXIMILIANO Voice ID: [id number] Report ID: [id number]
[2018-09-17] MEDS: PANTOPRAZOLE INJ 80 MG in NA CHLORIDE 0.9% 250 ML IV SCH ×2 (06:17→19:32)
[2018-09-17] MEDS: OCTREOTIDE 500 MCG in NA CHLORIDE 0.9% 500 ML IV SCH (06:18)
[2018-09-17] MEDS: TAMSULOSIN 0.4 MG SR CAP PO SCH (10:00)
[2018-09-17] MEDS ORDERED: FUROSEMIDE 40 MG/4 ML VIAL IV ONE (11:47)
--- NOTE | 2018-09-17 12:46 | RAD REPORT ---
EXAM DESCRIPTION: Ly Single View09/17/2018 12:35 pm CLINICAL HISTORY: Shortness of breath COMPARISON: September 15, 2018 FINDINGS: Mild worsening in the [id number] bilateral pulmonary opacities. The heart remains e nlarged Postsurgical changes involve the chest. IMPRESSION: Mild to moderate CHF
[2018-09-17 12:57] LABS: Absolute Lymphocytes (CBC) 0.5 K/uL (0.7-4.9); Basophils % 0.5 % (0-1.3); Hematocrit 26.4 % (39.6-49.0); Lymphocytes % 8.4 % (15.3-44.8); RBC Red Blood Cell Count 2.65 M/uL (4.33-5.43)
[2018-09-17 13:02] LABS: Albumin 2.9 g/dL (3.4-5.0); Bilirubin Total 1.2 mg/dL (0.2-1.0); Potassium 3.7 mmol/L (3.5-5.1); Protein, Total 6.2 g/dL (6.4-8.2)
[2018-09-17] MEDS: SUCRALFATE 1 GM TABLET PO SCH ×3 (13:42→21:25)
[2018-09-17] MEDS: CEFEPIME/SWI 2gm 2 GM/20 ML SYR IV SCH (14:00)
--- NOTE | 2018-09-17 15:55 | P.PN ---
Subjective Date of Service: 09/18/18 Chief Complaint: GI bleeding Subjective: Improving (No complaints today. EGD yesterday revealed healed esophageal ulcer, hemorrhagic gastritis.) Review of Systems 10-point ROS is otherwise unremarkable General: Weakness, Malaise (Improving slowly ) Physical Examination - Vital Signs Temperature: 98.2 F Blood Pressure: 132/58 Pulse: 97 Respirations: 17 Pulse Ox (%): 98 - Physical Exam General: Alert, In no apparent distress, Oriented x3, Cooperative (though sleepy ) HEENT: Atraumatic, Normocephalic, PERRLA, EOMI Neck: Supple Respiratory: Normal air movement Cardiovascular: Normal pulses Gastrointestinal: Soft and benign, No tenderness, No rebound, No guarding Neurological: Normal speech - Studies Laboratory Data (last 24 hrs) 09/17/18 12:23: Sodium 144, Potassium 3.7, BUN 16, Creatinine 1.15, Glucose 169 H, Total Bilirubin 1.2 H, AST 11 L, ALT 13, Alkaline Phosphatase 109 09/17/18 12:23: WBC 5.4 D, Hgb 8.7 L, Hct 26.4 L, Plt Count 116 L Assessment And Plan - Current Problems (Diagnosis) (1) GI bleed Current Visit: Yes Status: Acute (2) Melena Current Visit: Yes Status: Acute Comment: Resolved. (3) Hematochezia Current Visit: Yes Status: Acute Comment: Resolved. (4) Hypotension Current Visit: Yes Status: Acute (5) Diastolic CHF Current Visit: Yes Status: Acute (6) GERARDO (acute kidney injury) Current Visit: Yes Status: Acute (7) Anemia Current Visit: No Status: Active (8) Diarrhea Onset Date: 03/25/17 Current Visit: No Status: Acute Comment: None since day of admission. (9) Weakness Onset Date: 03/25/17 Current Visit: No Status: Acute - Plan REC: 1) continue PPI therapy 2) can discontinue IV Octreotide and po Carafate
--- NOTE | 2018-09-17 17:11 | P.PN ---
Subjective Date of Service: 09/17/18 Chief Complaint: GI bleeding Patient seen and examined at bedside. No family at bedside. Chart reviewed and case discussed with nursing staff. No further active GI bleeding noted at this time. H&H stable. Transferred to the floor Blood pressures now stable. Working with physical therapy Review of Systems 10-point ROS is otherwise unremarkable Physical Examination - Vital Signs Temperature: 97.6 F Blood Pressure: 147/66 Pulse: 95 Respirations: 20 Pulse Ox (%): 93 - Physical Exam General: Alert, In no apparent distress, Other (Elderly, ill appearing) HEENT: Atraumatic, PERRLA, EOMI Neck: Supple, JVD not distended Respiratory: Clear to auscultation bilaterally, Normal air movement Cardiovascular: Regular rate/rhythm, Normal S1 S2 Gastrointestinal: Normal bowel sounds, No tenderness - Studies Laboratory Data (last 24 hrs) 09/17/18 12:23: Sodium 144, Potassium 3.7, BUN 16, Creatinine 1.15, Glucose 169 H, Total Bilirubin 1.2 H, AST 11 L, ALT 13, Alkaline Phosphatase 109 09/17/18 12:23: WBC 5.4 D, Hgb 8.7 L, Hct 26.4 L, Plt Count 116 L Assessment And Plan - Plan An 88-year-old male with: 1. Acute gastrointestinal bleed, likely upper source. The patient had recent history of esophageal ulcer, which was treated at [facility]. We will continue on IV PPI. Dr. Fernández with GI has been consulted, recommendations appreciated. He is status post EGD, with gastritis. We will continue to monitor hemoglobin and hematocrit, which remains stable at this time. 2. Acute blood loss anemia. Monitor hemoglobin and hematocrit, transfuse for hemoglobin less than 7 secondary to above. 3. Acute hypotension secondary to gastrointestinal bleed and volume loss. Blood pressures now stable. Patient did not require any pressors. Echo with severe pulmonary hypertension. We will continue to monitor closely. 4. Acute cystitis without hematuria secondary to pseudomonas. The patient is allergic to Levaquin, continue with cefepime. Will continue with the antibiotics at this time, likely discontinue antibiotics prior to discharge 5. Acute kidney injury. Improving. possibly due to pre-renal azotemia versus acute tubular necrosis. Consult Nephrology, medications patient. We will continue to monitor creatinine level. 6. Mild cognitive deficit. 7. Debility. We will continue physical therapy. 8. Generalized weakness. 9. Cirrhosis of the liver. 10. Anemia. 11. Cerebrovascular accident. 12. Coronary artery disease, [place] artery and [place] heart status post coronary artery bypass graft and stent placement. 13. Carotid artery disease. 14. Mixed hyperlipidemia, stable. 15. Diabetes mellitus type 2, non-insulin requiring. We will continue with Accu -Cheks and start on sliding scale insulin. 16. Aortic valve stenosis. 17. Benign prostatic hypertrophy, stable. 18. History of diverticulosis. 19. Pulmonary hypertension: Pulmonology consulted, awaiting recommendations. Plan: Transfer to the floor as BP now stable. Social work consulted for discharge planning. Will need to discuss with patient localized to rehab versus some other fpc facility. I do not think he is a safe discharge home at this time.
--- NOTE | 2018-09-17 19:45 | P.PN ---
Subjective Date of Service: 09/17/18 Chief Complaint: GI bleeding Subjective pt recently admitted to [facility] for GI bleeding, transferred to rehab, was hypotensive with melena pt baseline Cr ~1.2 , now transffered to ICU with Cr 1.8 today Rales on exam and +1 edema will give lasix X1 and order CXR EGD moderate gastritis will dc octerotide drip GI F/U H/h stable Physical Examination - Vital Signs Temperature: 97.6 F Blood Pressure: 147/66 Pulse: 95 Respirations: 20 Pulse Ox (%): 93 - Physical Exam General: Alert, Mild distress HEENT: Atraumatic Neck: Supple, Without JVD or thyroid abnormality Respiratory: Crackles/rales Cardiovascular: Regular rate/rhythm, Normal S1 S2, No gallops, No rubs, No murmurs, Edema Gastrointestinal: Soft and benign Musculoskeletal: No clubbing, Swelling - Studies Laboratory Data (last 24 hrs) 09/17/18 12:23: Sodium 144, Potassium 3.7, BUN 16, Creatinine 1.15, Glucose 169 H, Total Bilirubin 1.2 H, AST 11 L, ALT 13, Alkaline Phosphatase 109 09/17/18 12:23: WBC 5.4 D, Hgb 8.7 L, Hct 26.4 L, Plt Count 116 L Assessment And Plan - Current Problems (Diagnosis) (1) GERARDO (acute kidney injury) Current Visit: Yes Status: Acute (2) Anemia Current Visit: No Status: Active - Plan GERARDO resolved due to ischemic ATN from hypoprefusion UA: no prot or bld Renal US: no hydro GI bleeding Monitor H/h GI on board transfuse to keep Hb >7.0 \ S/p EGD CHF rales on exam will give lasix X1 and ordeer CXR Hx of cirrhosis monitor LFT Traumatic hematuria resolved Urology on Balily
[2018-09-18] MEDS: PANTOPRAZOLE INJ 80 MG in NA CHLORIDE 0.9% 250 ML IV SCH ×2 (06:48→15:54)
[2018-09-18] MEDS: TAMSULOSIN 0.4 MG SR CAP PO SCH (09:18)
[2018-09-18] MEDS: SUCRALFATE 1 GM TABLET PO SCH ×4 (09:19→20:50)
[2018-09-18 12:13] LABS: Albumin 2.6 g/dL (3.4-5.0); Potassium 3.6 mmol/L (3.5-5.1); Protein, Total 5.7 g/dL (6.4-8.2)
--- NOTE | 2018-09-18 12:38 | P.PN ---
Subjective Date of Service: 09/18/18 Chief Complaint: GI bleeding Subjective: No C/O voiced Patient seen and examined at bedside. No family at bedside. Chart reviewed and case discussed with nursing staff. No further active GI bleeding noted at this time. H&H stable. Transferred to the floor Blood pressures now stable. Working with physical therapy Review of Systems 10-point ROS is otherwise unremarkable Physical Examination - Vital Signs Temperature: 98.6 F Blood Pressure: 135/56 Pulse: 80 Respirations: 18 Pulse Ox (%): 100 - Physical Exam General: Alert, In no apparent distress, Other (Elderly) HEENT: Atraumatic, PERRLA, EOMI Neck: Supple, JVD not distended Respiratory: Clear to auscultation bilaterally, Normal air movement Cardiovascular: Regular rate/rhythm, Normal S1 S2 Gastrointestinal: Normal bowel sounds, No tenderness Musculoskeletal: No tenderness Integumentary: No rashes Neurological: Normal speech, Normal tone, Normal affect Lymphatics: No axilla or inguinal lymphadenopathy - Studies Laboratory Data (last 24 hrs) 09/18/18 11:36: Sodium 141, Potassium 3.6, BUN 15, Creatinine 1.05, Glucose 150 H, Total Bilirubin 1.0, AST 7 L, ALT 12, Alkaline Phosphatase 108 09/17/18 12:23: Sodium 144, Potassium 3.7, BUN 16, Creatinine 1.15, Glucose 169 H, Total Bilirubin 1.2 H, AST 11 L, ALT 13, Alkaline Phosphatase 109 09/17/18 12:23: WBC 5.4 D, Hgb 8.7 L, Hct 26.4 L, Plt Count 116 L Assessment And Plan - Plan An 88-year-old male with: 1. Acute gastrointestinal bleed, likely upper source. The patient had recent history of esophageal ulcer, which was treated at [facility]. We will continue on IV PPI. Dr. Fernández with GI has been consulted, recommendations appreciated. He is status post EGD, with gastritis. We will continue to monitor hemoglobin and hematocrit, which remains stable at this time. 2. Acute blood loss anemia. Monitor hemoglobin and hematocrit, transfuse for hemoglobin less than 7 secondary to above. 3. Acute hypotension secondary to gastrointestinal bleed and volume loss. Blood pressures now stable. Patient did not require any pressors. Echo with severe pulmonary hypertension. We will continue to monitor closely. 4. Acute cystitis without hematuria secondary to pseudomonas. The patient is allergic to Levaquin, continue with cefepime. Will continue with the antibiotics at this time, likely discontinue antibiotics prior to discharge 5. Acute kidney injury. Improving. possibly due to pre-renal azotemia versus acute tubular necrosis. Consult Nephrology, medications patient. We will continue to monitor creatinine level. 6. Mild cognitive deficit. 7. Debility. We will continue physical therapy. 8. Generalized weakness. 9. Cirrhosis of the liver. 10. Anemia. 11. Cerebrovascular accident. 12. Coronary artery disease, [place] artery and [place] heart status post coronary artery bypass graft and stent placement. 13. Carotid artery disease. 14. Mixed hyperlipidemia, stable. 15. Diabetes mellitus type 2, non-insulin requiring. We will continue with Accu -Cheks and start on sliding scale insulin. 16. Aortic valve stenosis. 17. Benign prostatic hypertrophy, stable. 18. History of diverticulosis. 19. Pulmonary hypertension: Pulmonology consulted, awaiting recommendations. Plan: Discharge is pending disposition/placement. Social work for for discharge planning. Will need to discuss with patient localized to rehab versus some other [place] [facility] facility. I do not think he is a safe discharge home at this time.
[2018-09-18] MEDS: CEFEPIME/SWI 2gm 2 GM/20 ML SYR IV SCH (12:57)
[2018-09-18 13:34] LABS: Absolute Lymphocytes (CBC) 0.5 K/uL (0.7-4.9); Hematocrit 23.3 % (39.6-49.0)
[2018-09-18 13:37] LABS: Basophils % 0.7 % (0-1.3); Lymphocytes % 10.8 % (15.3-44.8); MPV 9.1 fL (7.6-11.3); RBC Red Blood Cell Count 2.37 M/uL (4.33-5.43)
[2018-09-18 13:58] LABS: Blood Morphology Comment NOT SEEN (NOT SEEN); Platelet Estimate DECR; Urine White Blood Cell Casts OK
--- NOTE | 2018-09-18 15:39 | PN ---
Subjective: Patient was admitted with acute kidney injury secondary to prerenal. After hydration kidney function has been improved. GI bleed has been stabilized. Physical Examination: Vital Signs: Blood pressure 135/ 80. Chest: Clear to auscultation. Heart: S1, S2. Systolic murmur. Abdomen: Soft nontender. Extremities: No edema. Laboratory Data: Sodium 141, potassium 3.6, BUN 15, creatinine 1, GFR of 67, calcium 7.9. Current Medications: The patient on include Lasix, Flomax, cefepime, pantoprazole, Carafate. Assessment And Plan: 1. Acute kidney injury secondary to prerenal, recovered, resolved. 2. Hypertension, controlled, optimal. Continue to utilize blood pressure for establishing better volume control. Continue Lasix. 3. Cirrhosis as by primary. 4. Gastrointestinal bleed, stabilize. We will follow up H and H. DHARA Voice ID: [id number] Report ID: [id number] [facility] CENTERMelony
--- NOTE | 2018-09-18 16:02 | P.PN ---
Subjective Date of Service: 09/18/18 Chief Complaint: GI bleeding, melena / hematochezia Subjective: Improving (No signs / symptoms of GI bleeding on IV PPI drip.) Review of Systems 10-point ROS is otherwise unremarkable General: Weakness (slowly improving ) Physical Examination - Vital Signs Temperature: 98.2 F Blood Pressure: 132/58 Pulse: 97 Respirations: 17 Pulse Ox (%): 98 - Physical Exam General: Alert, In no apparent distress, Oriented x3, Cooperative HEENT: Atraumatic, Normocephalic, PERRLA, EOMI Neck: Supple Respiratory: Normal air movement Cardiovascular: Normal pulses Gastrointestinal: Soft and benign, No tenderness, No rebound, No guarding Neurological: Normal speech - Studies Laboratory Data (last 24 hrs) 09/18/18 13:24: WBC 5.0, Hgb 7.8 L*, Hct 23.3 L, Plt Count 101 L 09/18/18 11:36: Sodium 141, Potassium 3.6, BUN 15, Creatinine 1.05, Glucose 150 H, Total Bilirubin 1.0, AST 7 L, ALT 12, Alkaline Phosphatase 108 Assessment And Plan - Current Problems (Diagnosis) (1) GI bleed Current Visit: Yes Status: Acute Comment: Resolved on PPI therapy (2) Melena Current Visit: Yes Status: Acute Comment: Resolved. (3) Hematochezia Current Visit: Yes Status: Acute Comment: Resolved. (4) Hypotension Current Visit: Yes Status: Acute (5) Diastolic CHF Current Visit: Yes Status: Acute (6) GERARDO (acute kidney injury) Current Visit: Yes Status: Acute (7) Anemia Current Visit: No Status: Active (8) Diarrhea Onset Date: 03/25/17 Current Visit: No Status: Acute Comment: None since day of admission. (9) Weakness Onset Date: 03/25/17 Current Visit: No Status: Acute (10) Hemorrhagic gastritis Current Visit: Yes Status: Acute - Plan REC: 1) can change to PPI q 12 dosing 2) continue po diet 3) okay to discharge from GI standpoint 4) continue to hold Lovenox and use SCDs instead
[2018-09-19] MEDS: PANTOPRAZOLE INJ 80 MG in NA CHLORIDE 0.9% 250 ML IV SCH (06:47)
[2018-09-19 06:50] LABS: Absolute Lymphocytes (CBC) 0.6 K/uL (0.7-4.9); Basophils % 0.2 % (0-1.3); Hematocrit 23.4 % (39.6-49.0); Lymphocytes % 10.9 % (15.3-44.8); MPV 8.4 fL (7.6-11.3); RBC Red Blood Cell Count 2.37 M/uL (4.33-5.43)
[2018-09-19 06:54] LABS: Albumin 2.5 g/dL (3.4-5.0); Bilirubin Total 0.9 mg/dL (0.2-1.0); Potassium 3.8 mmol/L (3.5-5.1); Protein, Total 5.5 g/dL (6.4-8.2)
[2018-09-19] MEDS: TAMSULOSIN 0.4 MG SR CAP PO SCH (08:22)
[2018-09-19] MEDS: SUCRALFATE 1 GM TABLET PO SCH ×4 (08:22→20:44)
--- NOTE | 2018-09-19 13:02 | P.PN ---
Subjective Date of Service: 09/19/18 Chief Complaint: GI bleeding, melena / hematochezia Subjective: Improving (No complaints. No blood seen by patient nor nurses.) Review of Systems 10-point ROS is otherwise unremarkable General: Weakness (Improving. ) Physical Examination - Vital Signs Temperature: 97.9 F Blood Pressure: 122/62 Pulse: 78 Respirations: 18 Pulse Ox (%): 94 - Physical Exam General: Alert, In no apparent distress, Oriented x3, Cooperative HEENT: Atraumatic, Normocephalic, PERRLA, EOMI Neck: Supple Respiratory: Normal air movement Cardiovascular: Normal pulses Gastrointestinal: Soft and benign, No tenderness, No rebound, No guarding Neurological: Normal speech, Normal strength at 5/5 x4 extr - Studies Laboratory Data (last 24 hrs) 09/19/18 06:22: Sodium 142, Potassium 3.8, BUN 15, Creatinine 1.08, Glucose 126 H, Total Bilirubin 0.9, AST 10 L, ALT 11 L, Alkaline Phosphatase 110 09/19/18 06:22: WBC 5.2, Hgb 7.9 L*, Hct 23.4 L, Plt Count 108 L 09/18/18 13:24: WBC 5.0, Hgb 7.8 L*, Hct 23.3 L, Plt Count 101 L Assessment And Plan - Current Problems (Diagnosis) (1) GI bleed Current Visit: Yes Status: Acute Comment: Resolved on PPI therapy (2) Melena Current Visit: Yes Status: Acute Comment: Resolved. (3) Hematochezia Current Visit: Yes Status: Acute Comment: Resolved. (4) Hypotension Current Visit: Yes Status: Acute (5) Diastolic CHF Current Visit: Yes Status: Acute (6) GERARDO (acute kidney injury) Current Visit: Yes Status: Acute (7) Anemia Current Visit: No Status: Active (8) Diarrhea Onset Date: 03/25/17 Current Visit: No Status: Acute Comment: None since day of admission. (9) Weakness Onset Date: 03/25/17 Current Visit: No Status: Acute (10) Hemorrhagic gastritis Current Visit: Yes Status: Acute - Plan REC: 1) 1 unit PRBC today 2) can change to PPI q 12 dosing 3) continue po diet 4) continue to hold Lovenox and use SCDs instead
[2018-09-19] MEDS: CEFEPIME/SWI 2gm 2 GM/20 ML SYR IV SCH (13:35)
--- NOTE | 2018-09-19 13:35 | P.PN ---
Subjective Date of Service: 09/19/18 Chief Complaint: GI bleeding, melena / hematochezia Subjective: No C/O voiced Patient seen and examined at bedside. No family at bedside. Chart reviewed and case discussed with nursing staff. No further active GI bleeding noted at this time. H&H stable. Transferred to the floor Blood pressures now stable. Working with physical therapy Review of Systems 10-point ROS is otherwise unremarkable Physical Examination - Vital Signs Temperature: 97.9 F Blood Pressure: 122/62 Pulse: 78 Respirations: 18 Pulse Ox (%): 94 - Physical Exam General: Alert, In no apparent distress, Other (Elderly/week) HEENT: Atraumatic, PERRLA, EOMI Neck: Supple, JVD not distended Respiratory: Clear to auscultation bilaterally, Normal air movement Cardiovascular: Regular rate/rhythm, Normal S1 S2 Gastrointestinal: Normal bowel sounds, No tenderness Musculoskeletal: No tenderness Integumentary: No rashes Neurological: Normal speech, Normal tone, Normal affect Lymphatics: No axilla or inguinal lymphadenopathy - Studies Laboratory Data (last 24 hrs) 09/19/18 06:22: Sodium 142, Potassium 3.8, BUN 15, Creatinine 1.08, Glucose 126 H, Total Bilirubin 0.9, AST 10 L, ALT 11 L, Alkaline Phosphatase 110 09/19/18 06:22: WBC 5.2, Hgb 7.9 L*, Hct 23.4 L, Plt Count 108 L 09/18/18 13:24: WBC 5.0, Hgb 7.8 L*, Hct 23.3 L, Plt Count 101 L Assessment And Plan - Plan An 88-year-old male with: 1. Acute gastrointestinal bleed, likely upper source. The patient had recent history of esophageal ulcer, which was treated at [facility]. We will continue on IV PPI. Dr. Fernández with GI has been consulted, recommendations appreciated. He is status post EGD, with gastritis. We will continue to monitor hemoglobin and hematocrit, which remains stable at this time. 2. Acute blood loss anemia. Monitor hemoglobin and hematocrit, transfuse for hemoglobin less than 7 secondary to above. 3. Acute hypotension secondary to gastrointestinal bleed and volume loss. Blood pressures now stable. Patient did not require any pressors. Echo with severe pulmonary hypertension. We will continue to monitor closely. 4. Acute cystitis without hematuria secondary to pseudomonas. The patient is allergic to Levaquin, continue with cefepime. Will continue with the antibiotics at this time, likely discontinue antibiotics prior to discharge 5. Acute kidney injury. Improving. possibly due to pre-renal azotemia versus acute tubular necrosis. Consult Nephrology, medications patient. We will continue to monitor creatinine level. 6. Mild cognitive deficit. 7. Debility. We will continue physical therapy. 8. Generalized weakness. 9. Cirrhosis of the liver. 10. Anemia. 11. Cerebrovascular accident. 12. Coronary artery disease, [place] artery and [place] heart status post coronary artery bypass graft and stent placement. 13. Carotid artery disease. 14. Mixed hyperlipidemia, stable. 15. Diabetes mellitus type 2, non-insulin requiring. We will continue with Accu -Cheks and start on sliding scale insulin. 16. Aortic valve stenosis. 17. Benign prostatic hypertrophy, stable. 18. History of diverticulosis. 19. Pulmonary hypertension: Pulmonology consulted, awaiting recommendations. Plan: Discharge is pending disposition/placement. Social work for for discharge planning. Will need to discuss with patient localized to rehab versus some other correction facility. I do not think he is a safe discharge home at this time.
--- NOTE | 2018-09-19 14:18 | PN ---
Date of Progress Note: 09/19/2018 Subjective: Patient was admitted with acute kidney injury secondary to prerenal, secondary to gastro intestinal loss, recovered, resolved. Physical Examination: Vital Signs: When I saw the patient, blood pressure of 122/62, pulse of 78. Chest: Clear to auscultation. Heart: S1, S2. Systolic murmur. Abdomen: Soft. Nontender. Extremities: No edema. Laboratory Data: WBC 5.2, hemoglobin and hematocrit of 7.9 and 23.4, platelet 108. Sodium 142, pota ssium 3.8, bicarb 27, BUN 15, creatinine of 1, calcium 7.7, albumin of 2.5, corrected calcium 8.5. Current Medications: The patient on is include; Flomax, cefepime, lactulose, pantoprazole, Carafate. Assessment And Plan: 1.Acute kidney injury secondary to prerenal, recovered, resolved. 2.Hypokalemia. Continue supplement. We will start the patient on low dose of Aldactone and we will follow up. 3.Hypertension, controlled, optimal. 4.We will add Aldactone. 5.Cirrhosis with deconditioning. We will follow up with primary. SHAINA/MAXIMILIANO Voice ID: [id number] Report ID: [id number]
[2018-09-19] MEDS ORDERED: FUROSEMIDE 40 MG/4 ML VIAL IV ONE (18:23)
[2018-09-19] MEDS: PANTOPRAZOLE 40 MG INJ IVP SCH (20:44)
[2018-09-19] MEDS: SODIUM CHLORIDE 0.9% 10ML INJ IV PRN (20:45)
[2018-09-19 20:46] LABS: Hematocrit 26.8 % (39.6-49.0)
[2018-09-20 06:31] LABS: Absolute Lymphocytes (CBC) 0.6 K/uL (0.7-4.9); Basophils % 0.5 % (0-1.3); Lymphocytes % 9.4 % (15.3-44.8); MPV 8.4 fL (7.6-11.3); RBC Red Blood Cell Count 2.65 M/uL (4.33-5.43)
[2018-09-20 06:48] LABS: Albumin 2.6 g/dL (3.4-5.0); Bilirubin Total 1.5 mg/dL (0.2-1.0); Potassium 3.5 mmol/L (3.5-5.1)
[2018-09-20] MEDS: PANTOPRAZOLE 40 MG INJ IVP SCH ×2 (08:29→22:46)
[2018-09-20] MEDS: TAMSULOSIN 0.4 MG SR CAP PO SCH (08:30)
[2018-09-20] MEDS: SPIRONOLACTONE 25 MG TABLET PO SCH (08:30)
[2018-09-20] MEDS: SUCRALFATE 1 GM TABLET PO SCH ×4 (08:30→22:46)
--- NOTE | 2018-09-20 11:00 | P.PN ---
Subjective Date of Service: 09/20/18 Chief Complaint: GI bleeding, melena / hematochezia Subjective: No C/O voiced Patient seen and examined at bedside. No family at bedside. Chart reviewed and case discussed with nursing staff. No further active GI bleeding noted at this time. H&H stable. Transferred to the floor Blood pressures now stable. Working with physical therapy Review of Systems 10-point ROS is otherwise unremarkable Physical Examination - Vital Signs Temperature: 97.7 F Blood Pressure: 121/55 Pulse: 97 Respirations: 18 Pulse Ox (%): 93 - Physical Exam General: Alert, In no apparent distress, Other (Weak, elderly) HEENT: Atraumatic, PERRLA, EOMI Neck: Supple, JVD not distended Respiratory: Clear to auscultation bilaterally, Normal air movement Cardiovascular: Regular rate/rhythm, Normal S1 S2 Gastrointestinal: Normal bowel sounds, No tenderness Musculoskeletal: No tenderness Integumentary: No rashes Neurological: Normal speech, Normal tone, Normal affect Lymphatics: No axilla or inguinal lymphadenopathy - Studies Laboratory Data (last 24 hrs) 09/20/18 06:18: Sodium 140, Potassium 3.5, BUN 15, Creatinine 1.02, Glucose 135 H, Total Bilirubin 1.5 H, AST 12 L, ALT 11 L, Alkaline Phosphatase 126 H 09/20/18 06:18: WBC 6.1 D, Hgb 8.9 L, Hct 26.0 L, Plt Count 121 L 09/19/18 20:38: Hgb 9.0 L, Hct 26.8 L 09/19/18 18:59: Hgb Cancelled, Hct Cancelled Assessment And Plan - Plan An 88-year-old male with: 1. Acute gastrointestinal bleed, likely upper source. The patient had recent history of esophageal ulcer, which was treated at [facility]. We will continue on IV PPI. Dr. Fernández with GI has been consulted, recommendations appreciated. He is status post EGD, with gastritis. We will continue to monitor hemoglobin and hematocrit, which remains stable at this time. He is status post 1 unit PRBC on 09/19/2018 2. Acute blood loss anemia. Monitor hemoglobin and hematocrit, transfuse for hemoglobin less than 7 secondary to above. 3. Acute hypotension secondary to gastrointestinal bleed and volume loss. Blood pressures now stable. Patient did not require any pressors. Echo with severe pulmonary hypertension. We will continue to monitor closely. 4. Acute cystitis without hematuria secondary to pseudomonas. The patient is allergic to Levaquin, continue with cefepime. Will continue with the antibiotics at this time, likely discontinue antibiotics prior to discharge 5. Acute kidney injury. Resolved. possibly due to pre-renal azotemia versus acute tubular necrosis. Consult Nephrology, recommendations appreciated. We will continue to monitor creatinine level. 6. Mild cognitive deficit. 7. Debility. We will continue physical therapy. Pending rehab consult 8. Generalized weakness. 9. Cirrhosis of the liver. 10. Anemia. 11. Cerebrovascular accident. 12. Coronary artery disease, [place] artery and [place] heart status post coronary artery bypass graft and stent placement. 13. Carotid artery disease. 14. Mixed hyperlipidemia, stable. 15. Diabetes mellitus type 2, non-insulin requiring. We will continue with Accu -Cheks and start on sliding scale insulin. 16. Aortic valve stenosis. 17. Benign prostatic hypertrophy, stable. 18. History of diverticulosis. 19. Pulmonary hypertension: Pulmonology consulted, awaiting recommendations. Plan: Discharge is pending disposition/placement. Social work for for discharge planning. Rehab consult pending. I do not think he is a safe discharge home at this time.
[2018-09-20] MEDS: CEFEPIME/SWI 2gm 2 GM/20 ML SYR IV SCH (14:15)
--- NOTE | 2018-09-20 21:18 | PN ---
Date of Progress Note: 09/20/2018 Chief Complaint: Acute kidney injury secondary to severe prerenal azotemia. History Of Present Illness: Patient is in recovery phase. Renal function has improved to baseline. The creatinine now is 1.0 and BUN 15. Patient did not require dialysis. Patient has hypokalemia, but p.o. intake is improving. Potassium level is improving. Patient was st arted on Aldactone for potassium-sparing effect and diuretic effect. Patient has history of liver cirrhosis. He has severe deconditioning and a history of a gastrointest inal blood loss, bleeding, and new to gastrointestinal bleeding, he developed acute kidney injury. Review of Systems: Denies fever, chills. Denies nausea, vomiting. Physical Examination: Lungs: Clear to auscultation bilaterally. Heart: S1, S2. Abdomen: Soft and benign. Extremities: Minimal edema, BUN 15, creatinine 1.0, albumin 2.5, calcium 7.7, hemoglobin 7.9, hemato crit 23.4. Impression And Plan: 1.Acute kidney injury in recovery phase. Avoid nephrotoxic medication. Patient cannot take nonster oidal anti-inflammatory medication. 2.Hypertension, controlled. Continue current approach. Patient will continue aldactone for potassi um-sparing effect. Monitor blood pressure and electrolytes. 3.Cirrhosis. Patient is on multiple medications including lactulose. 4.For GI bleeding, he is taking PPI. TRANG/MAXIMILIANO Voice ID: [id number] Report ID: [id number]
[2018-09-21 06:20] LABS: Absolute Lymphocytes (CBC) 0.7 K/uL (0.7-4.9); Basophils % 0.3 % (0-1.3); Lymphocytes % 8.1 % (15.3-44.8); MPV 8.2 fL (7.6-11.3); RBC Red Blood Cell Count 2.75 M/uL (4.33-5.43)
[2018-09-21 06:52] LABS: Albumin 2.6 g/dL (3.4-5.0); Bilirubin Total 1.1 mg/dL (0.2-1.0); Potassium 3.6 mmol/L (3.5-5.1); Protein, Total 6.1 g/dL (6.4-8.2)
[2018-09-21] MEDS: TAMSULOSIN 0.4 MG SR CAP PO SCH (08:24)
[2018-09-21] MEDS: SPIRONOLACTONE 25 MG TABLET PO SCH (08:24)
[2018-09-21] MEDS: SUCRALFATE 1 GM TABLET PO SCH ×4 (08:24→21:09)
[2018-09-21] MEDS: PANTOPRAZOLE 40 MG INJ IVP SCH ×2 (08:25→21:08)
[2018-09-21] MEDS: SODIUM CHLORIDE 0.9% 10ML INJ IV PRN (08:26)
--- NOTE | 2018-09-21 09:51 | PN ---
Date of Progress Note: 09/21/2018 Subjective: Patient was seen this morning for followup. He was on rehab floor and on 09/13/2018, he was transferred to medical floor to ICU with acute upper GI bleeding problem. I have reviewed this hospital record including H and P, progress note, and EGD finding. Dr. Fernández did EGD on him on 08/30 and detected that he had small hiatal hernia, moderate hemorrhagic gastritis in the fundus, an d moderate atrophic gastritis in body of stomach. Biopsies were taken. The patient was initially in ICU. Subsequently, he was transferred out of ICU to regular medical floor that is where he was this morning. When I saw him, he was lying in bed, not in distress. Has generalized weakness. Denies a ny nausea, vomiting, abdominal pain, chest pain, shortness of breath. Objective: Vital Signs: Reviewed. HEENT: Unremarkable. Lungs: Clear to auscultation. Heart: Sounds normal. Abdomen: Soft. Bowel sounds normal. No guarding, rigidity, tenderness, distention. Extremities: No leg edema. Laboratory Data: Biopsy results from EGD showed no evidence of Helicobacter pylori, no evidence of d ysplasia or malignancy. Last blood count this morning; white count 8.2, hemoglobin 9.2, platelets 12 8. His hemoglobin yesterday was 8.9, upon admission on 09/13/2018, hemoglobin was 8.6. His lowest h emoglobin during this hospitalization was 7.8, that was on 09/18/2018. Chemistry today; sodium 142, potassium 3.6, chloride 107, bicarb 30, BUN 12, creatinine 1.07, glucose 126, total bilirubin 1.1, SG OT 13, SGPT 12, alkaline phosphatase 128, serum albumin 2.6. Stool for Clostridium difficile was neg ative on 09/13/2018. Impression: 1.Acute upper gastrointestinal bleeding. 2.Acute blood loss anemia. 3.Hemorrhagic gastritis with bleeding. 4.Thrombocytopenia. 5.Cirrhosis of liver. 6.Coronary artery disease. 7.Generalized weakness. 8.Debility. Plan: We will go ahead and continue physical therapy. The patient is not strong enough to go back h ome directly from this hospitalization and we will need to try to plan his discharge either to go [facility] to rehab or go to longterm facility and Social Service is assisting with that. Physical the rapy to continue to work with the patient and I will see him tomorrow for followup. The patient does have a Dos Santos catheter in place draining yellowish colored urine and I will communicate with the nurs ing staff to get some more information on urinary complaints and problems before we make decision abo ut removal of the Dos [place] catheter. Details and plan of treatment discussed with the patient. APOORVA/MAXIMILIANO Voice ID: [id number] Report ID: [id number]
[2018-09-21] MEDS ORDERED: POTASSIUM CL SA 10 MEQ TAB PO ONE (11:50)
[2018-09-21] MEDS: CEFEPIME/SWI 2gm 2 GM/20 ML SYR IV SCH (13:03)
[2018-09-21] MEDS ORDERED: POTASSIUM 25 MEQ EFFERV TAB PO ONE (14:50)
--- NOTE | 2018-09-21 16:04 | PN ---
Date of Progress Note: 09/21/2018 Subjective: The patient was admitted with acute kidney injury secondary to poor perfusion, acute tub ular necrosis secondary to gastrointestinal bleed. The patient recovered. Physical Examination: Vital Signs: Blood pressure of 116/53, pulse of 80. Chest: Clear to auscultation. Heart: S1, S2. Systolic murmur. Abdomen: Soft, nontender. Laboratory Data: Hemoglobin and hematocrit 9.2 and 27. Sodium 142, potassium 3.6, bicarb 30, BUN 12 , creatinine 1, calcium 7.8. Current Medications: 1.Cefepime. 2.Flomax. 3.Spironolactone. 4.Pantoprazole. 5.Carafate. Assessment And Plan: 1.Acute kidney injury secondary to prerenal, recovered, resolved. 2.Hypertension, controlled, optimal. 3.Hypokalemia, continue spironolactone. We will supplement. 4.Gastrointestinal bleed, stable. 5.Deconditioning, continue PT/OT. SHAINA/MAXIMILIANO Voice ID: [id number] Report ID: [id number]
[2018-09-22 06:11] LABS: Absolute Lymphocytes (CBC) 0.6 K/uL (0.7-4.9); Basophils % 0.6 % (0-1.3); Hematocrit 25.9 % (39.6-49.0); Lymphocytes % 9.1 % (15.3-44.8); MPV 8.1 fL (7.6-11.3); RBC Red Blood Cell Count 2.62 M/uL (4.33-5.43)
[2018-09-22 06:30] LABS: Magnesium 1.9 mg/dL (1.8-2.4); Potassium 3.7 mmol/L (3.5-5.1)
[2018-09-22] MEDS ORDERED: POTASSIUM 25 MEQ EFFERV TAB PO ONE (07:46)
[2018-09-22] MEDS: SPIRONOLACTONE 25 MG TABLET PO SCH (08:09)
[2018-09-22] MEDS: SUCRALFATE 1 GM TABLET PO SCH ×4 (08:09→20:50)
[2018-09-22] MEDS: TAMSULOSIN 0.4 MG SR CAP PO SCH (08:09)
[2018-09-22] MEDS: PANTOPRAZOLE 40 MG INJ IVP SCH ×2 (08:09→20:50)
[2018-09-22] MEDS: CEFEPIME/SWI 2gm 2 GM/20 ML SYR IV SCH (13:55)
--- NOTE | 2018-09-22 17:56 | PN ---
Date of Progress Note: 09/22/2018 Subjective: The patient was admitted with acute kidney injury secondary to prerenal, secondary to GI loss. The patient recovered. The patient deconditioning, on PT/OT currently. Physical Examination: Vital Signs: When I saw the patient; blood pressure 97/67, pulse of 79. Chest: Clear to auscultation. Heart: S1, S2. Systolic murmur. Abdomen: Soft, nontender. Extremities: No edema. Laboratory Data: WBC 8.8, hematocrit 25.9. Sodium 140, potassium 3.7, bicarb 33, BUN 12, creatinine 0.9, calcium 8.2. Magnesium 1.9. Current Medications: 1.Zofran. 2.Pantoprazole. 3.Lactulose. 4.Spironolactone 12.5. 5.Cefepime. Assessment And Plan: 1.Acute kidney injury secondary to prerenal, recovered, resolved. 2.Hypokalemia, responding very well to spironolactone. We will continue on. 3.Hypertension, controlled, optimal. 4.Cirrhosis, gastrointestinal bleed as by primary. 5.Deconditioning. Continue PT/OT. SHAINA/MAXIMILIANO Voice ID: [id number] Report ID: [id number]
--- NOTE | 2018-09-23 00:34 | PN ---
Date of Progress Note: 09/22/2018 Subjective: Patient was seen this morning for followup. No new complaints or problems reported by rlel tolliver. Objective: General: Sitting in bed upright, not in any distress. Vital Signs: Reviewed. HEENT: Examination unremarkable. Lungs: Clear to auscultation. No rhonchi or rales. Heart: Heart sounds normal. Abdomen: Soft. Bowel sounds normal. No guarding, rigidity, tenderness, or distention. Extremities: No leg edema. Laboratory Data: Reviewed. Impression: 1.Acute upper gastrointestinal bleeding. 2.Acute blood loss anemia. 3.Coronary artery disease. 4.Hypertension. 5.Generalized weakness. 6.Debility. Plan: We will continue physical therapy. The patient did start to ambulate with therapy yesterday. We will continue to monitor blood work, and Social Service is assisting with the discharge planning. APOORVA/MAXIMILIANO Voice ID: [id number] Report ID: [id number]
[2018-09-23 07:13] LABS: Potassium 3.7 mmol/L (3.5-5.1)
[2018-09-23] MEDS ORDERED: POTASSIUM CL SA 10 MEQ TAB PO ONE (07:29)
[2018-09-23 07:34] LABS: Urine Appearance CLEAR; Urine Bilirubin NEGATIVE (NEG); Urine Blood 1+ (NEG); Urine Color YELLOW; Urine Glucose NEGATIVE (NEG); Urine Protein 2+ (NEG); Urine Urobilinogen 0.2 mg/dL (0.2-1.0)
--- NOTE | 2018-09-23 07:43 | RAD REPORT ---
EXAM DESCRIPTION: RAD - Chest Single View - 09/23/2018 6:47 am CLINICAL HISTORY: Fever COMPARISON: September 17 TECHNIQUE: AP portable chest image was obtained 0645 hours . FINDINGS: Lung volumes are normal. Increasing left pleural effusion is present with infiltrate and/ or atelectasis in the left base. Patient likely has a small right pleural effusion. Enlarged cardiac silhouette is still present. Mild vascular engorgement is seen. Overall interstitial and patchy alveolar opacities have developed. No pneumothorax. Sternotomy wires are in place. IMPRESSION: Moderate CHF/volume overload pattern worse than seen September 17. Left pleural effusion is present with probable small right pleural effusion. Left base opacification is potentially superimposed pneumonia but is likely atelectasis due to the pleural fluid.
[2018-09-23 07:52] LABS: Urine RBC <5 /HPF (NONE SEEN)
[2018-09-23 07:53] LABS: Urine Bacteria NONE SEEN /HPF (NONE SEEN); Urine Culture Reflex Order NOT NEEDED
[2018-09-23] MEDS: SPIRONOLACTONE 25 MG TABLET PO SCH (09:41)
[2018-09-23] MEDS: METOPROLOL TAR 25 MG TAB PO SCH ×2 (09:41→21:20)
[2018-09-23] MEDS: TAMSULOSIN 0.4 MG SR CAP PO SCH (09:41)
[2018-09-23] MEDS: SUCRALFATE 1 GM TABLET PO SCH ×4 (09:42→21:20)
[2018-09-23] MEDS: PANTOPRAZOLE 40 MG INJ IVP SCH ×2 (09:42→21:21)
[2018-09-23] MEDS: CEFEPIME/SWI 2gm 2 GM/20 ML SYR IV SCH (13:15)
--- NOTE | 2018-09-23 19:51 | PN ---
Date of Progress Note: 09/23/2018 Subjective: The patient has no event over the night. Blood pressure has been stable. Awake. Objective: Vital Signs: Blood pressure 117/60, pulse of 69, afebrile. Chest: Clear to auscultation. Heart: S1, S2. Systolic murmur. Abdomen: Soft, nontender. Extremities: No edema. Laboratory Data: H and H of 8.8/25.9, sodium 140, potassium 3.7, bicarb 31, BUN 10, creatinine 0.9, calcium 8.1. Current Medications: The patient is on include: 1.Cefepime. 2.Flomax. 3.Metoprolol 25 b.i.d. 4.Spironolactone 12.5 daily. 5.Lactulose. 6.Zofran. 7.Pantoprazole. 8.Carafate. Assessment And Plan: 1.Acute kidney injury secondary to prerenal, secondary to gastrointestinal loss, recovered, resolved . 2.Hypertension, controlled, optimal. Continue current treatment. 3.Hypokalemia secondary to cirrhosis, responds to spironolactone. We will continue current treatmen t. 4.Cirrhosis with gastrointestinal bleed, stable. We will follow up with the primary and GI. The patient cleared from the renal standpoint for discharge planning. DHARA Voice ID: [id number] Report ID: [id number]
--- NOTE | 2018-09-23 20:42 | PN ---
Date of Progress Note: 09/23/2018 Subjective: Patient was seen this morning for followup. He was lying in bed, sitting upright in bed . Denied any complaints. No chest pain, shortness of breath, nausea, vomiting. Objective: Vital Signs: Reviewed. HEENT: Examination unremarkable. Lungs: Clear to auscultation. Heart: Sounds normal. Abdomen: Soft, bowel sounds normal. No guarding, rigidity, tenderness, distention. Extremities: No leg edema. Laboratory Data: Reviewed. Impression: 1.Acute upper gastrointestinal bleeding. 2.Acute blood loss anemia. 3.Cirrhosis of liver. 4.Debility. 5.Generalized weakness. 6.Coronary artery disease. Plan: Patient had low-grade fever this morning. He is currently on antibiotics. We will continue t hat which is cefepime. We will get a urinalysis, urine culture, chest x-ray. Physical therapy to co ntinue to work with patient depending on overall test results and patient's condition. We will decid e if we can plan to discharge him tomorrow to go to assisted facility or not. APOORVA/MODL Voice ID: [id number] Report ID: [id number]
[2018-09-23] MEDS ORDERED: FUROSEMIDE 20 MG/ 2ML VIAL IV ONE (22:35)
[2018-09-24 05:38] LABS: Absolute Lymphocytes (CBC) 0.6 K/uL (0.7-4.9); Basophils % 0.6 % (0-1.3); Hematocrit 27.1 % (39.6-49.0); Lymphocytes % 9.5 % (15.3-44.8); MPV 8.7 fL (7.6-11.3); RBC Red Blood Cell Count 2.74 M/uL (4.33-5.43)
[2018-09-24 05:43] LABS: Albumin 2.6 g/dL (3.4-5.0); Bilirubin Total 1.1 mg/dL (0.2-1.0); Protein, Total 6.2 g/dL (6.4-8.2)
[2018-09-24] MEDS: FUROSEMIDE 20 MG/ 2ML VIAL IV SCH ×2 (09:44→16:30)
[2018-09-24] MEDS: SUCRALFATE 1 GM TABLET PO SCH ×4 (09:45→20:53)
[2018-09-24] MEDS: SPIRONOLACTONE 25 MG TABLET PO SCH (09:45)
[2018-09-24] MEDS: METOPROLOL TAR 25 MG TAB PO SCH ×2 (09:45→20:53)
[2018-09-24] MEDS: PANTOPRAZOLE 40 MG INJ IVP SCH ×2 (09:45→20:53)
[2018-09-24] MEDS: TAMSULOSIN 0.4 MG SR CAP PO SCH (09:45)
--- NOTE | 2018-09-24 13:16 | P.PN ---
Subjective Date of Service: 09/24/18 Chief Complaint: GI bleeding, melena / hematochezia Subjective: Improving Subjective pt recently admitted to [facility] for GI bleeding, transferred to rehab, was hypotensive with melena pt baseline Cr ~1.2 , now transffered to ICU with Cr 1.8 today no new complaints Rales on exam restarted on lasix Cr stable plan to discharge to SNF tomorrow Physical Examination - Vital Signs Temperature: 98.0 F Blood Pressure: 137/64 Pulse: 61 Respirations: 61 Pulse Ox (%): 18 - Physical Exam General: Alert, In no apparent distress, Oriented x3 HEENT: Atraumatic Neck: Supple, JVD not distended, Without JVD or thyroid abnormality Respiratory: Crackles/rales Cardiovascular: Regular rate/rhythm, Normal S1 S2, No gallops, No rubs, No murmurs, Edema Gastrointestinal: Normal bowel sounds, Soft and benign - Studies Laboratory Data (last 24 hrs) 09/24/18 04:40: Sodium 140, Potassium 4.0, BUN 11, Creatinine 1.08, Glucose 101 , Magnesium 2.0, Total Bilirubin 1.1 H, AST 16, ALT 12, Alkaline Phosphatase 122 H 09/24/18 04:40: WBC 6.4, Hgb 9.2 L, Hct 27.1 L, Plt Count 149 L Assessment And Plan - Current Problems (Diagnosis) (1) GERARDO (acute kidney injury) Current Visit: Yes Status: Acute (2) Anemia Current Visit: No Status: Active - Plan GERARDO resolved due to ischemic ATN from hypoprefusion UA: no prot or bld Renal US: no hydro GI bleeding resolved H/H stable GI on board transfuse to keep Hb >7.0 \ S/p EGD CHF rales on exam restartd on lasix Hx of cirrhosis monitor LFT
[2018-09-24] MEDS: CEFEPIME/SWI 2gm 2 GM/20 ML SYR IV SCH (15:10)
--- NOTE | 2018-09-24 22:30 | PN ---
Date of Progress Note: 09/24/2018 Subjective: Patient was seen this morning for followup. He actually looked better today than yester day. Yesterday morning, he looked a little tired. Denies any shortness of breath. His intake and o utput records reviewed. He urinated approximately 2000 cc of urine after 20 mg Lasix last night. Objective: Vital Signs: Reviewed. HEENT: Unremarkable. Lungs: Bilateral good equal air entry. Presence of some rales noted in lower lung joseph, left side more than right side. Not in respiratory distress. Heart: Sounds normal. Abdomen: Soft. Bowel sounds normal. No guarding, rigidity, tenderness, or distention. Extremities: Bilateral leg edema 1+. Laboratory Data: White count 6.4, hemoglobin 9.2, platelets 149. Sodium 140, potassium 4, chloride 103, bicarb 34, BUN 11, creatinine 1.08, glucose 101. Impression: 1.Congestive heart failure. 2.Hypertension. 3.Coronary artery disease. 4.Anemia due to gastrointestinal blood loss. 5.Generalized weakness. 6.Debility. Plan: We will continue current Lasix 20 mg IV twice a day. Monitor intake and output. Monitor elec trolytes. I have asked the nursing staff to provide me with information regarding Dos Santos catheter to see when was it placed and wire was it placed, and if it was removed and replaced for any urinary ret ention reason, etc. Once I have that information, I will decide at what point to remove Dos Santos cathet er. Patient will end up staying in the hospital over the weekend and possible discharge to go to long-term on Thursday and I have explained it to him. APOORVA/MODL Voice ID: [id number] Report ID: [id number]
[2018-09-25] MEDS: PANTOPRAZOLE 40 MG INJ IVP SCH (09:18)
[2018-09-25] MEDS: TAMSULOSIN 0.4 MG SR CAP PO SCH (09:18)
[2018-09-25] MEDS: SUCRALFATE 1 GM TABLET PO SCH ×4 (09:18→20:59)
[2018-09-25] MEDS: SPIRONOLACTONE 25 MG TABLET PO SCH (09:19)
[2018-09-25] MEDS: METOPROLOL TAR 25 MG TAB PO SCH ×2 (09:20→20:59)
[2018-09-25] MEDS: FUROSEMIDE 20 MG/ 2ML VIAL IV SCH ×2 (09:21→16:41)
--- NOTE | 2018-09-25 10:26 | CON ---
Date of Consultation: 09/25/2018 History Of Present Illness: Mr. Mcwilliams is 88. He came to the hospital because of bleeding. He has really been here quite some time already. He came in on September 13. This is September 25. He had a GI blee d and was in rehab and was transferred from there to here because of multiple loose bowels, low blood pressure, guaiac-positive stool, and drop in hemoglobin. He has liver cirrhosis, previous history o f GI bleeding, and esophageal ulcer was found with a blood clot on his last endoscopy. He has a hist ory of coronary heart disease with bypass surgery, carotid artery disease. I am asked to see him bec ause he gets bradycardic sometimes. We have not actually seen any bradycardia episodes severe enough to make us reduce the dose of metoprolol or putting a pacemaker. There are some pauses that I do no t think need to be addressed with any further interventions. I do not recommend a pacemaker or stopp ing the metoprolol now, although we could stop it if we need to. Physical Examination: General: Mr. Mcwilliams is confused. He does not really know why he is in the hospital. He does know w here he is and who he is, knows the approximate date. Lungs: Clear. Heart: Reveals a regular rate and rhythm. Most recent heart rate is 79. Most recent blood pressure 122/58. Impression: My impression is that we should not do anything different regarding the telemetry rossana NEUMANN Voice ID: [id number] Report ID: [id number]
[2018-09-25] MEDS: CEFEPIME/SWI 2gm 2 GM/20 ML SYR IV SCH (13:06)
--- NOTE | 2018-09-25 14:05 | PN ---
Date of Progress Note: 09/25/2018 Subjective: Patient was seen this morning for followup. He was lying in bed, not in any distress. Denies any chest pain, shortness of breath, nausea, vomiting. Had a bowel movement yesterday as he r eported. Dos Santos catheter is in place, draining yellow color urine. Objective: Vital Signs: Reviewed. HEENT: Unremarkable. Lungs: Clear to auscultation, except minimal right-sided basal rales present. Not in any respirator y distress. Heart: Sounds normal. Abdomen: Soft. Bowel sounds normal. No guarding, rigidity, tenderness, or distention. Extremities: Bilateral leg edema, unchanged from yesterday. Impression: 1.Congestive heart failure. 2.Acute blood loss anemia. 3.Upper gastrointestinal bleed. 4.Cirrhosis of liver. 5.Benign prostatic hypertrophy with urinary retention. Plan: With help of charge nurse we found that the patient while I was gone he was having recurrent u rinary retention, required multiple straight caths for urinary retention problem and then eventually started to have some hematuria as well and there was some difficulty with catheterization of the blad leo, so eventually he had a Dos Santos catheter placed and that is the reason why he still has this Dos Santos catheter in place. Yesterday, nursing staff did communicate with Dr. Sanford. He is out of town and w e will wait until Thursday. After Dr. Sanford comes to town on Thursday, we will let Dr. Sanford help us jocelin e that decision if Dos Santos catheter can be removed or not. Details were discussed with patient. We will repeat blood work and a chest x-ray tomorrow morning. Continue IV L asix. APOORVA/MODL Voice ID: [id number] Report ID: [id number]
[2018-09-25] MEDS: PANTOPRAZOLE 40MG TABLET PO SCH (16:41)
--- NOTE | 2018-09-25 22:40 | PN ---
Date of Progress Note: 09/25/2018 Chief Complaint: Acute kidney injury secondary to renal hypoperfusion and hypotension related to GI bleeding. Subjective: Patient did not require dialysis. Patient was transferred to ICU and creatinine was 1.8 . Baseline creatinine 1.2. Today, blood pressure is stable. Review of Systems: Patient denies fever or chills. Physical Examination: Lungs: Clear to auscultation bilaterally. Heart: S1, S2. Abdomen: Soft, benign. Extremities: No edema. Laboratory Data: Creatinine is 1.08, BUN 11, sodium 140, potassium 4.0. Impression And Plan: 1.Acute kidney injury in recovery phase. Patient has nonoliguric urine output. Patient developed a cute tubular necrosis secondary to renal hypoperfusion related to gastrointestinal bleeding and hypot ension. 2.Gastrointestinal bleeding, resolved. Monitor hemoglobin level, adjust CHELA. Patient received a bl ood transfusion for volume resuscitation. Currently, there is no active bleeding. Patient underwent esophagogastroduodenoscopy. 3.Congestive heart failure. Patient developed some fluid overload with dyspnea. Continue Lasix. W e will monitor electrolytes. 4.Liver cirrhosis. We will monitor liver function test and kidney function when patient is on diure tic. EB/MODL Voice ID: [id number] Report ID: [id number]
[2018-09-26 06:16] LABS: Absolute Lymphocytes (CBC) 0.6 K/uL (0.7-4.9); Basophils % 1.1 % (0-1.3); Hematocrit 26.2 % (39.6-49.0); Lymphocytes % 12.7 % (15.3-44.8); MPV 7.6 fL (7.6-11.3); RBC Red Blood Cell Count 2.66 M/uL (4.33-5.43)
[2018-09-26 06:26] LABS: Magnesium 2.1 mg/dL (1.8-2.4); Potassium 3.8 mmol/L (3.5-5.1)
--- NOTE | 2018-09-26 08:14 | RAD REPORT ---
EXAM DESCRIPTION: RAD - Chest Pa And Lat (2 Views) - 09/26/2018 8:05 am CLINICAL HISTORY: CHF, COPD COMPARISON: September 23 TECHNIQUE: Portable AP and lateral views the chest were obtained. FINDINGS: The lungs are slightly underinflated. CHF/volume overload pattern has improved from the pr ior day imaging. Lung parenchymal opacification is less pronounced. Patient continues to have subst antial enlargement of the cardiac silhouette. Vasculature has decreased in prominence. Trachea remain s midline. Sternotomy wires are in place. No pneumothorax is present. Left greater than right pleural effusions are not substantially different. No acute bony finding noted. No aortic abnormality. IMPRESSION: CHF/volume overload pattern has improved with significant disease remaining. Left greater than right pleural effusions are not substantially different.
[2018-09-26] MEDS: TAMSULOSIN 0.4 MG SR CAP PO SCH (08:37)
[2018-09-26] MEDS: FUROSEMIDE 20 MG/ 2ML VIAL IV SCH ×2 (08:37→16:57)
[2018-09-26] MEDS: PANTOPRAZOLE 40MG TABLET PO SCH ×2 (08:38→16:57)
[2018-09-26] MEDS: SUCRALFATE 1 GM TABLET PO SCH ×4 (08:38→21:41)
[2018-09-26] MEDS: METOPROLOL TAR 25 MG TAB PO SCH ×2 (08:38→21:41)
[2018-09-26] MEDS: SPIRONOLACTONE 25 MG TABLET PO SCH ×2 (08:39→10:00)
[2018-09-26] MEDS ORDERED: POTASSIUM 25 MEQ EFFERV TAB PO ONE (09:00)
--- NOTE | 2018-09-26 13:03 | PN ---
Date of Progress Note: 09/26/2018 Subjective: Patient was seen this morning for followup. No new complaints or problems reported by p atient lying in bed, not in distress. Denies any chest pain, shortness of breath. No nausea, vomiti ng. Objective: Vital Signs: Reviewed. HEENT: Unremarkable. Lungs: Clear to auscultation. Heart: Sounds normal. Abdomen: Soft. Bowel sounds normal. No guarding, rigidity, tenderness, distention. Extremities: Bilateral leg edema unchanged. Laboratory Data: White count 5, hemoglobin 8.8, platelets 153. Sodium 138, potassium 3.8, chloride 98, bicarb 39, BUN 12, creatinine 1.08, glucose 106, magnesium 2.1. Impression: 1.Congestive heart failure. 2.Coronary artery disease. 3.Anemia due to gastrointestinal blood loss. 4.Generalized weakness. 5.Debility. 6.Cirrhosis of liver. Plan: We will go ahead and increase the dose of spironolactone to 25 mg p.o. daily. Continue curren t IV Lasix and other current medical management and I will see him tomorrow for followup. Depending on the patient's condition, we will decide if we can plan to discharge him either tomorrow or day aft er tomorrow to go to [facility]. Dr. Sanford will evaluate the patient tomorrow to see if we can remove his Dos Santos catheter or not. APOORVA/MODL Voice ID: [id number] Report ID: [id number]
[2018-09-26] MEDS: CEFEPIME/SWI 2gm 2 GM/20 ML SYR IV SCH (13:29)
--- NOTE | 2018-09-27 01:31 | PN ---
Date of Progress Note: 09/26/2018 Chief Complaint: Acute kidney injury secondary to renal hypoperfusion and hypotension in setting of GI bleeding. History Of Present Illness: Currently, patient does not have active GI bleeding. He has nonoliguric urine output. Patient did not require dialysis. Patient was admitted to the ICU and at that time, creatinine was 1.8, subsequently stabilized today and was 1.2. Blood pressure has been stable, p.o. intake is somewhat improving. Review of Systems: Denies fever, chills. Physical Examination: Lungs: Few crackles at bases. Heart: S1, S2. Abdomen: Soft, benign. Extremities: No edema. Laboratory Data: Sodium 158, potassium 3.8, chloride 98, CO2 of 39, BUN 12, creatinine 1.08, calcium 8.2. Impression And Plan: 1.Acute on chronic kidney injury. Renal function has improved. Patient has underlying chronic kidn ey disease. Patient developed acute kidney injury secondary to nonoliguric ATN with prerenal azotemi a. Monitor blood pressure closely. Patient has had GI bleeding, it resolved. Monitor hemoglobin le david. Adjust CHELA as needed. Patient may benefit from blood transfusion. 2.Congestive heart failure. Patient has been treated with Lasix for mild fluid overload. Monitor e lectrolytes. 3.Liver cirrhosis. Liver function test was done. Continue to monitor kidney function as well as electrolytes when patient is on diuretic. EB/MODL Voice ID: [id number] Report ID: [id number]
[2018-09-27] MEDS: SUCRALFATE 1 GM TABLET PO SCH ×4 (08:25→20:22)
[2018-09-27] MEDS: METOPROLOL TAR 25 MG TAB PO SCH ×2 (08:26→20:22)
[2018-09-27] MEDS: TAMSULOSIN 0.4 MG SR CAP PO SCH (08:26)
[2018-09-27] MEDS: FUROSEMIDE 20 MG/ 2ML VIAL IV SCH (08:26)
[2018-09-27] MEDS: SPIRONOLACTONE 25 MG TABLET PO SCH (08:26)
[2018-09-27] MEDS: PANTOPRAZOLE 40MG TABLET PO SCH ×2 (08:26→16:55)
[2018-09-27] MEDS: CEFEPIME/SWI 2gm 2 GM/20 ML SYR IV SCH (14:28)
--- NOTE | 2018-09-27 15:46 | PN ---
Date of Progress Note: 09/27/2018 Chief Complaint: Sovqr-qo-qxypcek kidney injury secondary to prerenal azotemia. History Of Present Illness: Renal function is stabilizing. The patient has history of bladder outle t obstruction and has Dos Santos catheter. Patient denies chest pain, palpitation. He has history of GI bleeding. He developed nonoliguric ATN with prerenal azotemia when he was found to have severe anemi a due to GI bleeding. Blood pressure currently is stabilizing. Creatinine level is improving. Base line creatinine level is 1.2 and during the acute kidney injury episode, creatinine had risen up to 1 .8. Review of Systems: Denies fever, chills. Physical Examination: Lungs: Clear to auscultation bilaterally. Heart: S1, S2. Abdomen: Soft, benign. Extremities: No edema. Impression And Plan: 1.Bltcr-yr-clieogp kidney injury. Renal function has improved. Electrolytes are stable. Monitor e lectrolytes closely. 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 Avoid nephrotoxic medication. 2.Sodium level is 138, potassium 3.8, chloride 98, and bicarbonate is 39, BUN 12, creatinine 1.08, c alcium 8.2. There is mild metabolic alkalosis present. Continue normal saline for hydration and mark id excessive diuretics. 3.Hypertension. Blood pressure controlled. 4.Deconditioning. Survey recommendations from primary team. 5.Liver cirrhosis. Continue to monitor kidney function. Avoid nephrotoxic medication. TRANG/MODL Voice ID: [id number] Report ID: [id number]
--- NOTE | 2018-09-27 18:26 | RAD REPORT ---
EXAM DESCRIPTION: Ly Single View09/27/2018 6:12 pm CLINICAL HISTORY: Shortness of breath COMPARISON: September 26, 2018 FINDINGS: Apag-ok-gmkhifmp bilateral pulmonary opacities without significant change The heart is markedly enlarged. Small to moderate left and small right pleural effusions IMPRESSION: No significant change in CHF
--- NOTE | 2018-09-27 20:16 | PN ---
Date of Progress Note: 09/27/2018 Subjective: Patient was seen this morning for followup. He was lying in bed. He actually looks a l ot better today than last 2-3 days, feels better. Denies any specific complaints. Objective: Vital Signs: Reviewed. HEENT: Unremarkable. Lungs: Clear to auscultation. Heart: Sounds normal. Abdomen: Soft. Bowel sounds normal. No guarding, rigidity, tenderness, distention. Extremities: No leg edema. Laboratory Data: Reviewed. Impression: 1.Acute upper gastrointestinal bleeding. 2.Acute blood loss anemia. 3.Debility. 4.Generalized weakness. 5.Coronary artery disease. 6.Benign prostatic hypertrophy with urinary retention. Plan: Patient has a Dos Santos catheter. We will continue to keep that in his bladder. [facility] out of town until October 04 and the urologist who is covering him is in [place]. So, what we will do to be on safe side considering how much difficulty he had prior to this Dos Santos catheter place ment, we will not remove any Dos Santos catheter right now and wait until Dr. Sanford is available in town a gain. Plan is to discharge him to go to [facility] probably tomorrow. APOORVA/MODL Voice ID: [id number] Report ID: [id number]
[2018-09-27 21:43] VITALS: O2SAT 93
[2018-09-28 05:32] LABS: Absolute Lymphocytes (CBC) 0.6 K/uL (0.7-4.9); Basophils % 1.4 % (0-1.3); Hematocrit 25.9 % (39.6-49.0); Lymphocytes % 12.6 % (15.3-44.8); MPV 8.2 fL (7.6-11.3); RBC Red Blood Cell Count 2.63 M/uL (4.33-5.43)
[2018-09-28 05:52] LABS: Magnesium 1.9 mg/dL (1.8-2.4); Potassium 3.9 mmol/L (3.5-5.1)
[2018-09-28] MEDS: SUCRALFATE 1 GM TABLET PO SCH (08:46)
[2018-09-28] MEDS: SPIRONOLACTONE 25 MG TABLET PO SCH (08:46)
[2018-09-28] MEDS: METOPROLOL TAR 25 MG TAB PO SCH (08:46)
[2018-09-28] MEDS: PANTOPRAZOLE 40MG TABLET PO SCH (08:46)
[2018-09-28] MEDS: TAMSULOSIN 0.4 MG SR CAP PO SCH (08:46)
[2018-09-28 08:47] VITALS: BP 140/62; TEMP 97.2
[2018-09-28] MEDS ORDERED: POTASSIUM CL SA 10 MEQ TAB PO ONE (09:00)
--- NOTE | 2018-09-28 12:37 | PN ---
Date of Progress Note: 09/28/2018 Subjective: The patient was admitted with acute kidney injury secondary to hepatorenal, secondary to GI. Physical Examination: Vital Signs: Blood pressure 140/60, pulse of 67. Chest: Clear to auscultation. Heart: S1, S2. Systolic murmur. Abdomen: Soft, nontender. Extremities: No edema. Laboratory Data: WBC 5.1, H and H of 8.8/25.9, platelet 138. Sodium 137, potassium 3.9, bicarb 39, BUN 13, creatinine 1, calcium 8, magnesium 1.9. Current Medications: The patient on include cefepime, lactulose, Zofran, pantoprazole, KCl, spironol actone 25 daily, and Flomax. Assessment And Plan: 1.Acute kidney injury secondary to prerenal, resolved. 2.Hypokalemia. Continue spironolactone. 3.Hypertension, controlled optimal with the presence of cirrhosis. We will continue spironolactone. 4.Deconditioning. Continue PT, OT. The patient cleared from the renal standpoint for discharge maya JULES Voice ID: [id number] Report ID: [id number]
--- NOTE | 2018-09-29 00:32 | DS ---
Date of Discharge: 09/28/2018 Disposition: Discharged to go to [facility]. Physical Examination: HEENT: Unremarkable. Lungs: Clear to auscultation. Heart: Sounds normal. Abdomen: Soft. Bowel sounds normal. No guarding, rigidity, tenderness, or distention. Extremities: No leg edema. Laboratory Data: Last blood work this morning: White count 5.1, hemoglobin 8.8, platelets 138. Sod ium 137, potassium 3.9, chloride 97, bicarb 39, BUN 13, creatinine 1.05, glucose 99, magnesium 1.9. Echocardiogram from 09/13/2018 shows ejection fraction 79%, left ventricular hypertrophy, severe pulm onary hypertension. It also showed reduced left ventricular compliance. Hospital Course: An 88-year-old male patient who was admitted to the hospital to ICU from rehab floo r with upper GI bleeding. Please see dictated H and P for more information. Patient had upper GI bl eed and was in [place] at [facility], where EGD had shown esophageal ulcer and he was sent t o our rehab floor for debility, generalized weakness, for inpatient rehab therapy. He was recovering well and had recurrence of upper GI bleeding. So from rehab floor, he was sent down to ICU. GI con sultation was obtained during this hospitalization. EGD revealed presence of hemorrhagic gastritis t ype of problem. EGD was negative for H pylori. No evidence of any malignancy and it showed small hi atal hernia, moderate hemorrhagic gastritis, and moderate atrophic gastritis. After his condition wa s stabilized in ICU, he was transferred to regular room. During this hospitalization, he had urinary retention due to benign prostatic hypertrophy and required multiple straight catheterization of his bladder and then had gross hematuria, difficulty with straight catheterization of bladder, so the uro logist Dr. Sanford was consulted and the patient had a Dos Santos catheter, which was placed, and when I too k over his care on 09/21/2018, he had this Dos Santos catheter in place. Once I found out all this inform ation, we decided not to attempt to remove Dos Santos catheter as Dr. Sanford is out of country and urologis t that is covering him is in [place] and does not come to our hospital, so we decided to leave the ca theter in because if we remove the catheter and patient ends up having urinary retention and we are n ot able to place another catheter that would require transferring patient to [place]. So at this poi nt, it is best to leave the catheter in until Dr. Sanford comes back in town next week. All these deta ils were discussed with the patient. Patient started ambulating well with physical therapy. He has significant generalized weakness and debility and will require detention stay. After social servi ce made arrangements, patient was discharged to go to such facility today in stable condition. See c opy of discharge order for details. Final Diagnoses: 1.Acute upper gastrointestinal bleeding. 2.Acute blood loss anemia. 3.Hemorrhagic gastritis with bleeding. 4.Hiatal hernia. 5.Thrombocytopenia. 6.Cirrhosis of liver. 7.Coronary artery disease. 8.Generalized weakness. 9.Debility. 10.Hypertension. 11.Hyperlipidemia. 12.Type 2 diabetes mellitus. 13.Aortic valve stenosis. 14.Benign prostatic hypertrophy with urinary retention. 15.Diverticulosis. APOORVA/MODL Voice ID: [id number] Report ID: [id number]
--- NOTE | 2018-09-29 10:48 | PN ---
Date of Progress Note: 09/28/2018 Mr. Mcwilliams has been followed intermittently for bradycardia. He was seen by Dr. Garay recently for bradycardia, history of coronary artery disease, cerebrovascular disease. He had initially came in f or a GI bleed. No change in his medical therapy was recommended. We decided to continue his metopro lol. Over the last 48 hours, his heart rate has been stable and slightly bradycardic, but no symptom s. We will continue his present medical regimen. We will sign off his case. ISIDORO/MAXIMILIANO Voice ID: [id number] Report ID: [id number]
== END 2018-09-28 10:34 | DRG 377 ==
LOC: 3RD-ICU 10:31 → 2ND 09-16 15:32
PROVIDERS: ADMIT Family Medicine; ATTEND Internal Medicine
PROC: 0DB68ZX Excision of Stomach, Via Natural or Artificial Opening Endoscopic, Diagnostic (ICD-10-PCS; principal; 2018-09-16 14:00)
PROC: 30233N1 Transfusion of Nonautologous Red Blood Cells into Peripheral Vein, Percutaneous Approach (ICD-10-PCS; 2018-09-19)
DX: K29.41 Chronic atrophic gastritis with bleeding (principal); N17.0 Acute kidney failure with tubular necrosis; D62 Acute posthemorrhagic anemia; N30.01 Acute cystitis with hematuria; I50.32 Chronic diastolic (congestive) heart failure; I13.0 Hypertensive heart and chronic kidney disease with heart failure and stage 1 through stage 4 chronic kidney disease, or unspecified chronic kidney disease; E87.3 Alkalosis; I95.9 Hypotension, unspecified; B96.5 Pseudomonas (aeruginosa) (mallei) (pseudomallei) as the cause of diseases classified elsewhere; E11.22 Type 2 diabetes mellitus with diabetic chronic kidney disease; N18.3 Chronic kidney disease, stage 3 (moderate); G31.84 Mild cognitive impairment of uncertain or unknown etiology; R53.81 Other malaise; K74.60 Unspecified cirrhosis of liver; I35.0 Nonrheumatic aortic (valve) stenosis; I27.20 Pulmonary hypertension, unspecified; E87.6 Hypokalemia; N47.2 Paraphimosis; N40.1 Benign prostatic hyperplasia with lower urinary tract symptoms; R33.8 Other retention of urine; D69.6 Thrombocytopenia, unspecified; R00.1 Bradycardia, unspecified; I25.10 Atherosclerotic heart disease of native coronary artery without angina pectoris; K57.90 Diverticulosis of intestine, part unspecified, without perforation or abscess without bleeding; I25.2 Old myocardial infarction; Z86.73 Personal history of transient ischemic attack (TIA), and cerebral infarction without residual deficits; Z95.1 Presence of aortocoronary bypass graft; Z95.5 Presence of coronary angioplasty implant and graft; Z87.891 Personal history of nicotine dependence; Z88.1 Allergy status to other antibiotic agents
CPT/HCPCS: 36415; 36430; 71045; 71046; 76770; 80048; 80053; 81001; 82140; 82550; 82553; 82607; 82728; 82962; 83540; 83615; 83735; 83880; 84466; 84484; 85014; 85018; 85025; 85044; 85610; 85730; 86850; 86900; 86901; 87086; 87088; 87493; 88305; 88312; 93306; 94760; 94762; 97110; 97116; 97163; 97530; C9113; J0692; J1940; J2354; J2704; J2916; J7030; P9016; P9047

== ENCOUNTER 2020-01-17 18:01 | Emergency (ER) | payer MEDICARE, BC ==
--- OUTSIDE RECORDS SUMMARY | 2020-01-17 18:04 | XMS REPORT | Clinical Summary ---
:1930 Author Organization [facility] Address [address] [place] [address] Care Team Providers Name Role Phone Alicia Garcia MD Primary Care Provider Allergies Active Allergy Reactions Severity Noted Date Comments Levofloxacin Rash Low 06/16/2017 Metformin Rash Low 06/16/2017 Medications Medication Sig Dispensed Refills Start Date End Date Status docusate sodium Take 1 capsule 60 capsule 1 08/06/2017 Active (COLACE) 100 MG (100 mg total) capsule by mouth 2 (two) times daily. lactulose (CHRONULAC) Take 30 mLs 1000 mL 1 03/13/2018 Active 20 gram/30 mL solution (20 g total) by mouth 3 (three) times daily as needed (constipation, confusion). pantoprazole Take 1 tablet 30 tablet 3 03/13/2018 Ac tive (PROTONIX) 40 MG (40 mg total) tablet by mouth daily. tamsulosin (FLOMAX) Take 1 capsule 30 capsule 3 03/13/2018 Active 0.4 mg Cap 24 hr (0.4 mg total) capsule by mouth daily. torsemide (DEMADEX) 20 Take 1 tablet 30 tablet 3 03/13/2018 MG tablet (20 mg total) by mouth daily. metoprolol (LOPRESSOR) Take 1 tablet 60 tablet 3 03/13/2018 25 MG tablet (25 mg total) by mouth 2 (two) times daily. spironolactone Take 1 tablet 30 tablet 3 03/14/2018 03/14/2019 (ALDACTONE) 25 MG (25 mg total) tablet by mouth daily. Active Problems Problem Noted Date Hepatic encephalopathy 08/26/2018 Acute hypoxemic respiratory failure 03/04/2018 Acute encephalopathy 03/04/2018 Acute encephalopathy 03/03/2018 Generalized weakness 03/02/2018 Dementia 03/02/2018 GI bleed 03/02/2018 Aortic stenosis 09/10/2017 Coronary artery disease due to calcified coronary lesi on 07/16/2017 Coronary artery disease 07/15/2017 CHF (congestive heart failure) S/P CABG (coronary artery bypass graft) Atrial fibrillation Hyperlipidemia GERARDO (acute kidney injury) Overview: creatinine 1.0 to 2.58 Anemia UGIB (upper gastrointestinal bleed) Thrombocytopenia Pulmonary hypertension Advanced age Frailty Family History Relation Name Status Comments Father Mother Social History Tobacco Use Types Packs/Day Years Used Date Former Smoker Smokeless Tobacco: Never Used Comments: quit in 1977. Alcohol Use Drinks/Week oz/Week Comments No Sex Assigned at Date Recorded Not on file Last Filed Vital Signs Not on file Plan of Treatment Health Maintenance Due Date Last Done Comments MEDICARE ANNUAL WELLNESS (YEAR 2 or FIRST YEAR if no 03/03/1997 IPPE) INFLUENZA VACCINE (#1) 2019 PNEUMOCOCCAL 65+ YRS Completed 08/12/2016 Implants Implanted Type Area Numerical Control Machine Operator Device Shelf Model / Identifier Expiration Serial / Date Lot Mynxgrip Vascular Closure Device Cardiovascular Groin CARDINAL HLT H 05/31/2019 [id number] / Implanted: Qty: 1 on 07/15/2017 by Kris Greco MD at [facility] / [id number] Synergy Stents-Coronary Coronary [place] 04/01/2018 4 [id number] / Implanted: Qty: 1 on 07/15/2017 by Kris Greco MD at [facility] [employer] / [id number] Synergy Stents-Coronary Coronary [place] 05/19/2018 [facility] [id number] / Implanted: Qty: 1 on 07/15/2017 by Kris Greco MD at [facility] [employer] / [id number] Synergy Stents-Coronary Coronary [place] 12/24/2017 4 [id number] / Implanted: Qty: 1 on 07/15/2017 by Kris Greco MD at [facility] [employer] / [id number] Synergy Stents-Coronary Coronary [place] 02/18/2018 4 [id number] / Implanted: Qty: 1 on 07/15/2017 by Kris Greco MD at [facility] / [id number] Valve Heart Deepa 3 [id number] - [id number] Valves N/A: Aorta SIFUENTES 05/20/2019 [id number] / Implanted: Qty: 1 on 09/10/2017 by Kris Greco MD at [facility] [employer] [id number] / Description:Transcatheter heart valve Results Not on fileafter 01/16/2019 Insurance Payer Benefit Plan / Subscriber ID Effective Phone Address T ype Group Dates MEDICARE MEDICARE PART [id number] 1996-Prese Medicare B nt BLUE [employer] INDEMNITY [id number] 2016-Prese [phone] [address] [place] [id number] [place] [address] Advance Directives For more information, please contact: [phone] Code Status Date Activated Date Inactivated Comments Full Code 08/22/2018 1:30 PM 09/03/2018 6:47 PM This code status was determined by: Patient Partial Code 03/04/2018 10:27 AM 08/22/2018 1:16 PM This code status was determined by: Spouse [...]
--- OUTSIDE RECORDS SUMMARY | 2020-01-17 18:12 | XMS REPORT | Continuity of Care Document ---
:1930 Author Organization [facility] t Address [address] [place] [address] Care Team Providers Name Role Phone Alicia Garcia MD Primary Care Physician BELLO MUÑIZ Attending Clinician Unavailable DANIELA DOOLEY Attending Clinician Unavailable Russ CHARLES Attending Clinician Unavailable ABILIO BALLARD Attending Clinician Unavailable BELLO MUÑIZ Admitting Clinician Unavailable DANIELA DOOLEY Admitting Clinician Unavailable Russ CHARLES Admitting Clinician Unavailable ABILIO BALLARD Admitting Clinician Unavailable Problems Condition Condition Condition Status Onset Resolution Last Treating Co mments Source Name Details Category Date Date Treatment Clinician Date Hepatic Hepatic Disease Active [facility] encephal[facility] encephalop 6-27 Sruthi kes - athy athy 00:00: Medical 00 [place] Acute Acute Disease Active [address] hypoxemic hypoxemic 1-03 [facility] - respirator respirator 00:00: Me dical y failure y failure 00 Cent er Acute Acute Disease Active [facility] encephalop encephalop 1-03 Sruthi kes - athy athy 00:00: Medical 00 [place] Acute Acute Disease Active 2019- [facility] encephalop encephalop 1-02 Sruthi kes - athy athy 00:00: Medical 00 [place] Generalize Generalize Disease Active 2019-[address] d weakness d weakness 1- Sruthi kes - 00:00: Medical 00 [place] Dementia Dementia Disease Active [facility] Medical [facility] [place] GI bleed GI bleed Disease Active 2018- [facility] - 00:[facility]: Medical 00 [place] 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 - disease disease 00:00: Medical due to due to 00 [place] calcified calcified coronary coronary lesion lesion Coronary Coronary Disease Active [facility] artery artery 5-16 [facility] - disease disease 00:00: Medical 00 Center CHF CHF Disease Active [facility] (congestiv (congestiv Sruthi kes - e heart e heart Medical failure) failure) Center S/P CABG S/P CABG Disease Active [facility] (coronary (coronary [facility] - artery artery Medical bypass bypass Center graft) graft) Atrial Atrial Disease Active St fibrillati fibrillati [facility] - on on [facility] Hyperlipid Hyperlipid Disease [facility] (acute GERARDO (acute Disease Active Overview : [facility] kidney kidney creatinin [facility] - injury) injury) e 1.0 to Medica l 2.58 Center Anemia Anemia Disease Active [facility] UGIB UGIB Disease Active [facility] (upper (upper [facility] [place] - gastrointe gastrointe Me dical stinal stinal Center bleed) bleed) Thrombocyt Thrombocyt Disease Active [facility] Pulmonary Disease Active [facility] hypertensi hypertensi [facility] - on on [facility] Advanced Advanced Disease Active [facility] Frailty Frailty Disease Active [facility] Allergies, Adverse Reactions, Alerts Allergy Allergy Status Severity Reaction(s) Onset Inactive Treating Comm ents Source Name Type Date Date Clinician Levoflox Propensi Active Rash [facility] acin ty to 4-17 [facility] - adverse 00:00: Medical reaction 00 [place] Metformi Propensi Active Rash [facility] n ty to 4-17 [facility] - adverse 00:00: Medical reaction 00 [place] s Social History Social Habit Start Date Stop Date Quantity Comments Source Sex Assigned At [facility] Tobacco use and 2018-08-23 2018-08-23 Never used [facility] - exposure 00:00:00 00:00:00 [facility] Alcohol intake 2018-08-23 2018-08-23 Current [facility] es - 00:00:00 00:00:00 non-drinker of Medical Ce nter alcohol (finding) Tobacco Comment 2017-08-24 2017-08-24 quit in [address] [facility] - 00:[facility]00 [facility]00 Medical Center Smoking Status Start Date Stop Date Source Former smoker 2018-08-23 00:00:00 2018-08-23 00:00:[address] [facility] - Medical Center Medications Ordered Filled Start Stop Current Ordering Indication Dosage Frequency Signature Comments Components Source Medication Medication Date Date Medication? Clinician (SIG) Name Name spironolact 2019- No 25mg QD Take [address] [facility] one -03-14 tablet (25 [facility] - (ALDACTONE) 00:00: 23:59 mg total) Medical 25 MG 00 :00 by mouth Center tablet daily. lactulose Yes 20g Take 30 [facility] (CHRONULAC) 1-12 mLs (20 g Yonis es - 20 gram/30 00:00: total) by Me dical mL solution 00 mouth 3 Cente r (three) times daily as needed (constipat ion, confusion) . pantoprazol Yes 40mg QD Take [address] e -12 tablet (40 [facility] - (PROTONIX) 00:00: mg total) Me dical 40 MG 00 by mouth Center tablet daily. tamsulosin Yes .4mg QD Take 1 [facility] (FLOMAX) -12 capsule [facility] - 0.4 mg Cap 00:00: (0.4 mg Medi thad 24 hr 00 total) by Center capsule mouth daily. torsemide 2019- No 20mg QD Take 1 [facility] (DEMADEX) 03-13 tablet (20 Yonis es - 20 MG 00:00: 23:59 mg total) Medica l tablet 00 :00 by mouth Center daily. metoprolol 2020- No 25mg Q.5D Take [address] (LOPRESSOR) 03-1312 tablet (25 L ukes - 25 MG 00:00: 23:59 mg total) Medica l tablet 00 :00 by mouth 2 Center (two) times daily. docusate Yes 100mg Q.5D Take [address] sodium 6-07 capsule [facility] - (COLACE) 00:00: (100 mg Medica l 100 MG 00 total) by Center capsule mouth 2 (two) times daily. Procedures This patient has no known procedures. Plan of Care Planned Activity Planned Date Details Comments Source Future Scheduled 2019-11-[address] [facility] - Test 00:00:00 (#1) [code = Medical Center INFLUENZA VACCINE (#1)] Future Scheduled 1997-03-[address] [facility] u[facility] - Test 00:00:00 WELLNESS (YEAR 2 or Medical Center FIRST YEAR if no IPPE) [code = MEDICARE ANNUAL WELLNESS (YEAR 2 or FIRST YEAR if no IPPE)] Results Test Description Test Time Test Comments Results Result Comments Source POCT-GLUCOSE METER 2018-09-03 12:51:00 Test Item Value Reference Range Interpretation Comme nts POC-GLUCOSE METER (BEAKER) (test 127 mg/dL 70-110 H TESTED AT [facility] [address] [facility] code = 1538) [facility] 7703 0 POCT-GLUCOSE [id number] 08:51:00 Test Item Value Reference Range Interpretation Comments POC-GLUCOSE METER 104 mg/dL 70-110 TESTED AT [facility] [address] ([facility]) (test code = [place] [employer] [facility] 1538) [id number] BASIC METABOLIC [id number] 07:00:00 Test Item Value Reference Range Interpretation Comments SODIUM (BEAKER) 135 meq/L 136-145 L (test code = 381) POTASSIUM (BEAKER) 4.2 meq/L 3.5-5.1 (test code = 379) CHLORIDE (BEAKER) 107 meq/L 98-107 (test code = 382) CO2 (BEAKER) (test 22 meq/L 22-29 code = 355) BLOOD UREA NITROGEN 23 mg/dL 7-21 H (BEAKER) (test code = 354) CREATININE (BEAKER) 1.05 mg/dL 0.57-1.25 (test code = 358) GLUCOSE RANDOM 101 mg/dL 70-105 (BEAKER) (test code = 652) CALCIUM (BEAKER) 8.3 mg/dL 8.4-10.2 L (test code = 697) EGFR (BEAKER) (test 67 mL/min/1.73 ESTIMA VIKKI GFR IS code = 1092) sq m NOT ACCURATE CREATININE CLEARANCE IN PREDICTING GLOMERULAR FILTRATION RATE . ESTIMATED GFR I S NOT APPLICABLE FOR DIALYSIS PATIEN TS. Specimen slightly ictericCBC (HEMOGRAM ONLY)2018-09-03 06:12:00 Test Item Value Reference Range Interpretation Comments WHITE BLOOD CELL COUNT (BEAKER) 4.2 K/ L 3.5-10.5 (test code = 775) RED BLOOD CELL COUNT (BEAKER) 2.54 M/ L 4.63-6.08 L (test code = 761) HEMOGLOBIN (BEAKER) (test code = 8.4 GM/DL 13.7-17.5 L 410) HEMATOCRIT (BEAKER) (test code = 26.0 % 40.1-51.0 L 411) MEAN CORPUSCULAR VOLUME (BEAKER) 102.4 fL 79.0-92.2 H (test code = 753) MEAN CORPUSCULAR HEMOGLOBIN 33.1 pg 25.7-32.2 H (BEAKER) (test code = 751) MEAN CORPUSCULAR HEMOGLOBIN CONC 32.3 GM/DL 32.3-36.5 (BEAKER) (test code = 752) RED CELL DISTRIBUTION WIDTH 16.6 % 11.6-14.4 H (BEAKER) (test code = 412) PLATELET COUNT (BEAKER) (test 137 K/CU MM 150-450 L code = 756) MEAN PLATELET VOLUME (BEAKER) 10.6 fL 9.4-12.4 (test code = 754) NUCLEATED RED BLOOD CELLS 0 /100 WBC 0-0 (BEAKER) (test code = 413) POCT-GLUCOSE [id number] 21:00:00 Test Item Value Reference Range Interpretation Comments POC-GLUCOSE METER 133 mg/dL 70-110 H TESTED AT [place] [address] ([facility]) (test code = [place] [employer] [facility] 1538) [id number] POCT-GLUCOSE [id number] 16:55:00 Test Item Value Reference Range Interpretation Comments POC-GLUCOSE METER 148 mg/dL 70-110 H TESTED AT [place] [address] ([facility]) (test code = [place] 1538) [id number] POCT-GLUCOSE [id number] 13:18:00 Test Item Value Reference Range Interpretation Comments POC-GLUCOSE METER 136 mg/dL 70-110 H TESTED AT [place] [address] ([facility]) (test code = [place] 1538) [id number] POCT-GLUCOSE [id number] 08:34:00 Test Item Value Reference Range Interpretation Comments POC-GLUCOSE METER 107 mg/dL 70-110 TESTED AT [facility] 6720 (BEAKER) (test code = [place] 1530) [id number] BASIC METABOLIC [id number] 07:18:00 Test Item Value Reference Range Interpretation Comments SODIUM (BEAKER) 134 meq/L 136-145 L (test code = 381) POTASSIUM (BEAKER) 4.1 meq/L 3.5-5.1 (test code = 379) CHLORIDE (BEAKER) 105 meq/L 98-107 (test code = 382) CO2 (BEAKER) (test 24 meq/L 22-29 code = 355) BLOOD UREA NITROGEN 31 mg/dL 7-21 H (BEAKER) (test code = 354) CREATININE (BEAKER) 1.16 mg/dL 0.57-1.25 (test code = 358) GLUCOSE RANDOM 91 mg/dL 70-105 (BEAKER) (test code = 652) CALCIUM (BEAKER) 8.4 mg/dL 8.4-10.2 (test code = 697) EGFR (BEAKER) (test 60 mL/min/1.73 ESTIMA VIKKI GFR IS code = 1092) sq m NOT ACCURATE CREATININE CLEARANCE IN PREDICTING GLOMERULAR FILTRATION RATE . ESTIMATED GFR I S NOT APPLICABLE FOR DIALYSIS PATIEN TS. Specimen slightly ictericCBC W/PLT COUNT & AUTO [id number] 06:32:00 Test Item Value Reference Range Interpretation Comments WHITE BLOOD CELL COUNT (BEAKER) 4.4 K/ L 3.5-10.5 (test code = 775) RED BLOOD CELL COUNT (BEAKER) 2.43 M/ L 4.63-6.08 L (test code = 761) HEMOGLOBIN (BEAKER) (test code = 7.9 GM/DL 13.7-17.5 L 410) HEMATOCRIT (BEAKER) (test code = 25.5 % 40.1-51.0 L 411) MEAN CORPUSCULAR VOLUME (BEAKER) 104.9 fL 79.0-92.2 H (test code = 753) MEAN CORPUSCULAR HEMOGLOBIN 32.5 pg 25.7-32.2 H (BEAKER) (test code = 751) MEAN CORPUSCULAR HEMOGLOBIN CONC 31.0 GM/DL 32.3-36.5 L (BEAKER) (test code = 752) RED CELL DISTRIBUTION WIDTH 16.1 % 11.6-14.4 H (BEAKER) (test code = 412) PLATELET COUNT (BEAKER) (test 136 K/CU MM 150-450 L code = 756) MEAN PLATELET VOLUME (BEAKER) 10.5 fL 9.4-12.4 (test code = 754) NUCLEATED RED BLOOD CELLS 0 /100 WBC 0-0 (BEAKER) (test code = 413) NEUTROPHILS RELATIVE PERCENT 69 % (BEAKER) (test code = 429) LYMPHOCYTES RELATIVE PERCENT 13 % (BEAKER) (test code = 430) MONOCYTES RELATIVE PERCENT 11 % (BEAKER) (test code = 431) EOSINOPHILS RELATIVE PERCENT 6 % (BEAKER) (test code = 432) BASOPHILS RELATIVE PERCENT 1 % (BEAKER) (test code = 437) NEUTROPHILS ABSOLUTE COUNT 2.99 K/ L 1.78-5.38 (BEAKER) (test code = 670) LYMPHOCYTES ABSOLUTE COUNT 0.56 K/ L 1.32-3.57 L (BEAKER) (test code = 414) MONOCYTES ABSOLUTE COUNT (BEAKER) 0.49 K/ L 0.30-0.82 (test code = 415) EOSINOPHILS ABSOLUTE COUNT 0.28 K/ L 0.04-0.54 (BEAKER) (test code = 416) BASOPHILS ABSOLUTE COUNT (BEAKER) 0.02 K/ L 0.01-0.08 (test code = 417) IMMATURE GRANULOCYTES-RELATIVE 1 % 0-1 PERCENT (BEAKER) (test code = 2801) POCT-GLUCOSE [id number] 21:22:00 Test Item Value Reference Range Interpretation Comments POC-GLUCOSE METER 190 mg/dL 70-110 H TESTED AT [place] [address] ([facility]) (test code = [facility] 1538) [id number] POCT-GLUCOSE [id number] 17:49:00 Test Item Value Reference Range Interpretation Comments POC-GLUCOSE METER 112 mg/dL 70-110 H TESTED AT [place] [address] ([facility]) ([facility] 1538) [address] POCT-GLUCOSE [id number] 13:14:00 Test Item Value Reference Range Interpretation Comments POC-GLUCOSE METER 137 mg/dL 70-110 H TESTED AT [place] [address] ([facility]) (test code = [facility] 1538) [address] POCT-GLUCOSE [id number] 07:55:00 Test Item Value Reference Range Interpretation Comments POC-GLUCOSE METER 102 mg/dL 70-110 TESTED AT [facility] 6720 (BEAKER) (test code = [place] [employer] [facility] 1538) [address] CBC W/PLT COUNT & AUTO [id number] 06:09:00 Test Item Value Reference Range Interpretation Comments WHITE BLOOD CELL COUNT (BEAKER) 5.2 K/ L 3.5-10.5 (test code = 775) RED BLOOD CELL COUNT (BEAKER) 2.48 M/ L 4.63-6.08 L (test code = 761) HEMOGLOBIN (BEAKER) (test code = 8.2 GM/DL 13.7-17.5 L 410) HEMATOCRIT (BEAKER) (test code = 25.4 % 40.1-51.0 L 411) MEAN CORPUSCULAR VOLUME (BEAKER) 102.4 fL 79.0-92.2 H (test code = 753) MEAN CORPUSCULAR HEMOGLOBIN 33.1 pg 25.7-32.2 H (BEAKER) (test code = 751) MEAN CORPUSCULAR HEMOGLOBIN CONC 32.3 GM/DL 32.3-36.5 (BEAKER) (test code = 752) RED CELL DISTRIBUTION WIDTH 16.8 % 11.6-14.4 H (BEAKER) (test code = 412) PLATELET COUNT (BEAKER) (test 136 K/CU MM 150-450 L code = 756) MEAN PLATELET VOLUME (BEAKER) 9.9 fL 9.4-12.4 (test code = 754) NUCLEATED RED BLOOD CELLS 0 /100 WBC 0-0 (BEAKER) (test code = 413) NEUTROPHILS RELATIVE PERCENT 68 % (BEAKER) (test code = 429) LYMPHOCYTES RELATIVE PERCENT 15 % (BEAKER) (test code = 430) MONOCYTES RELATIVE PERCENT 10 % (BEAKER) (test code = 431) EOSINOPHILS RELATIVE PERCENT 6 % (BEAKER) (test code = 432) BASOPHILS RELATIVE PERCENT 0 % (BEAKER) (test code = 437) NEUTROPHILS ABSOLUTE COUNT 3.52 K/ L 1.78-5.38 (BEAKER) (test code = 670) LYMPHOCYTES ABSOLUTE COUNT 0.76 K/ L 1.32-3.57 L (BEAKER) (test code = 414) MONOCYTES ABSOLUTE COUNT (BEAKER) 0.53 K/ L 0.30-0.82 (test code = 415) EOSINOPHILS ABSOLUTE COUNT 0.33 K/ L 0.04-0.54 (BEAKER) (test code = 416) BASOPHILS ABSOLUTE COUNT (BEAKER) 0.02 K/ L 0.01-0.08 (test code = 417) IMMATURE GRANULOCYTES-RELATIVE 1 % 0-1 PERCENT (BEAKER) (test code = 2801) BASIC METABOLIC [id number] 05:59:00 Test Item Value Reference Range Interpretation Comments SODIUM (BEAKER) 135 meq/L 136-145 L (test code = 381) POTASSIUM (BEAKER) 4.6 meq/L 3.5-5.1 (test code = 379) CHLORIDE (BEAKER) 104 meq/L 98-107 (test code = 382) CO2 (BEAKER) (test 24 meq/L 22-29 code = 355) BLOOD UREA NITROGEN 35 mg/dL 7-21 H (BEAKER) (test code = 354) CREATININE (BEAKER) 1.22 mg/dL 0.57-1.25 (test code = 358) GLUCOSE RANDOM 99 mg/dL 70-105 (BEAKER) (test code = 652) CALCIUM (BEAKER) 8.5 mg/dL 8.4-10.2 (test code = 697) EGFR (BEAKER) (test 56 mL/min/1.73 ESTIMA VIKKI GFR IS code = 1092) sq m NOT ACCURATE CREATININE CLEARANCE IN PREDICTING GLOMERULAR FILTRATION RATE . ESTIMATED GFR I S NOT APPLICABLE FOR DIALYSIS PATIEN TS. Specimen slightly ictericPOCT-GLUCOSE [id number] 22:01:00 Test Item Value Reference Range Interpretation Comments POC-GLUCOSE METER 136 mg/dL 70-110 H TESTED AT [facility] 6720 (BEAKER) (test code = [place] 1538) [id number] FL, ESOPH, SWALLOW FUNCTION, WITH CINE OR [id number] 17:39:00Reason for exam:->DysphagiaFINAL REPORT INDICATION: Dysphagia. TECHNIQUE: [...] and recommendations. Signed: Rashad Hernandes MDReport Verified Date/Time: 08/31/2018 17:39:54 Reading Location: [facility] [id number] Ortho Consult Reading Room -GLUCOSE [id number] 17:04:00 Test Item Value Reference Range Interpretation Comments POC-GLUCOSE METER 154 mg/dL 70-110 H TESTED AT [place] [address] (BEAKER) (test code = [facility] 1538) [id number] POCT-GLUCOSE [id number] 13:17:00 Test Item Value Reference Range Interpretation Comments POC-GLUCOSE METER 168 mg/dL 70-110 H TEST[facility] AT [place] [address] [facility] (test code = [facility] 1538) [id number] POCT-GLUCOSE [id number] 12:33:00 Test Item Value Reference Range Interpretation Comments POC-GLUCOSE METER 127 mg/dL 70-110 H TESTED AT [place] [address] (BEAKER) (test code = [facility] 1538) [id number] CBC W/PLT COUNT & AUTO [id number] 05:57:00 Test Item Value Reference Range Interpretation Comments WHITE BLOOD CELL COUNT (BEAKER) 5.4 K/ L 3.5-10.5 (test code = 775) RED BLOOD CELL COUNT (BEAKER) 2.27 M/ L 4.63-6.08 L (test code = 761) HEMOGLOBIN (BEAKER) (test code = 7.5 GM/DL 13.7-17.5 L 410) HEMATOCRIT (BEAKER) (test code = 23.6 % 40.1-51.0 L 411) MEAN CORPUSCULAR VOLUME (BEAKER) 104.0 fL 79.0-92.2 H (test code = 753) MEAN CORPUSCULAR HEMOGLOBIN 33.0 pg 25.7-32.2 H (BEAKER) (test code = 751) MEAN CORPUSCULAR HEMOGLOBIN CONC 31.8 GM/DL 32.3-36.5 L (BEAKER) (test code = 752) RED CELL DISTRIBUTION WIDTH 16.0 % 11.6-14.4 H (BEAKER) (test code = 412) PLATELET COUNT (BEAKER) (test 121 K/CU MM 150-450 L code = 756) MEAN PLATELET VOLUME (BEAKER) 10.8 fL 9.4-12.4 (test code = 754) NUCLEATED RED BLOOD CELLS 0 /100 WBC 0-0 (BEAKER) (test code = 413) NEUTROPHILS RELATIVE PERCENT 66 % (BEAKER) (test code = 429) LYMPHOCYTES RELATIVE PERCENT 14 % (BEAKER) (test code = 430) MONOCYTES RELATIVE PERCENT 13 % (BEAKER) (test code = 431) EOSINOPHILS RELATIVE PERCENT 5 % (BEAKER) (test code = 432) BASOPHILS RELATIVE PERCENT 0 % (BEAKER) (test code = 437) NEUTROPHILS ABSOLUTE COUNT 3.60 K/ L 1.78-5.38 (BEAKER) (test code = 670) LYMPHOCYTES ABSOLUTE COUNT 0.78 K/ L 1.32-3.57 L (BEAKER) (test code = 414) MONOCYTES ABSOLUTE COUNT (BEAKER) 0.71 K/ L 0.30-0.82 (test code = 415) EOSINOPHILS ABSOLUTE COUNT 0.29 K/ L 0.04-0.54 (BEAKER) (test code = 416) BASOPHILS ABSOLUTE COUNT (BEAKER) 0.02 K/ L 0.01-0.08 (test code = 417) IMMATURE GRANULOCYTES-RELATIVE 0 % 0-1 PERCENT (BEAKER) (test code = 2801) TROPONIN [id number] 05:56:00 Test Item Value Reference Range Interpretation Comments TROPONIN I (BEAKER) (test code = 0.08 ng/mL 0.00-0.03 H 397) Troponin I (TnI) levels must be interpreted [...] failure, acidosis, acute neurological disease, and persistent tachyarrhythmia.[id number] 05:48:00 Test Item Value Reference Range Interpretation Comments MAGNESIUM (BEAKER) (test code = 2.2 mg/dL 1.6-2.6 627) BASIC METABOLIC [id number] 05:48:00 Test Item Value Reference Range Interpretation Comments SODIUM (BEAKER) 135 meq/L 136-145 L (test code = 381) POTASSIUM (BEAKER) 4.9 meq/L 3.5-5.1 (test code = 379) CHLORIDE (BEAKER) 105 meq/L 98-107 (test code = 382) CO2 (BEAKER) (test 27 meq/L 22-29 code = 355) BLOOD UREA NITROGEN 39 mg/dL 7-21 H (BEAKER) (test code = 354) CREATININE (BEAKER) 1.10 mg/dL 0.57-1.25 (test code = 358) GLUCOSE RANDOM 115 mg/dL 70-105 H (BEAKER) (test code = 652) CALCIUM (BEAKER) 8.4 mg/dL 8.4-10.2 (test code = 697) EGFR (BEAKER) (test 63 mL/min/1.73 ESTIMA VIKKI GFR IS code = 1092) sq m NOT ACCURATE CREATININE CLEARANCE IN PREDICTING GLOMERULAR FILTRATION RATE . ESTIMATED GFR I S NOT APPLICABLE FOR DIALYSIS PATIEN TS. POCT-GLUCOSE [id number] 04:49:00 Test Item Value Reference Range Interpretation Comments POC-GLUCOSE METER 131 mg/dL 70-110 H TESTED AT [place] [address] [facility] (test code = [place] [employer] [facility] 1538) [id number] POCT-GLUCOSE [id number] 22:24:00 Test Item Value Reference Range Interpretation Comments POC-GLUCOSE METER 180 mg/dL 70-110 H TESTED AT [place] [address] ([facility] (test code = [place] [employer] [facility] 1538) [id number] POCT-GLUCOSE [id number] 17:17:00 Test Item Value Reference Range Interpretation Comments POC-GLUCOSE METER 176 mg/dL 70-110 H TESTED AT [facility] 67[address] ([facility] (test code = [place] [employer] [facility] 1538) [id number] POCT-GLUCOSE [id number] 11:51:00 Test Item Value Reference Range Interpretation Comments POC-GLUCOSE METER 180 mg/dL 70-110 H TESTED AT [facility] 67[address] [facility] = [facility] 1538) [id number] HEMOGLOBIN AND [id number] 07:49:00 Test Item Value Reference Range Interpretation Comments HEMOGLOBIN (BEAKER) (test code = 7.3 GM/DL 13.7-17.5 L 410) HEMATOCRIT (BEAKER) (test code = 22.6 % 40.1-51.0 L 411) BASIC METABOLIC [id number] 06:43:00 Test Item Value Reference Range Interpretation Comments SODIUM (BEAKER) 137 meq/L 136-145 (test code = 381) POTASSIUM (BEAKER) 4.7 meq/L 3.5-5.1 (test code = 379) CHLORIDE (BEAKER) 108 meq/L 98-107 H (test code = 382) CO2 (BEAKER) (test 24 meq/L 22-29 code = 355) BLOOD UREA NITROGEN 37 mg/dL 7-21 H (BEAKER) (test code = 354) CREATININE (BEAKER) 1.02 mg/dL 0.57-1.25 (test code = 358) GLUCOSE RANDOM 129 mg/dL 70-105 H (BEAKER) (test code = 652) CALCIUM (BEAKER) 8.3 mg/dL 8.4-10.2 L (test code = 697) EGFR (BEAKER) (test 69 mL/min/1.73 ESTIMA VIKKI GFR IS code = 1092) sq m NOT ACCURATE CREATININE CLEARANCE IN PREDICTING GLOMERULAR FILTRATION RATE . ESTIMATED GFR I S NOT APPLICABLE FOR DIALYSIS PATIEN TS. POCT-GLUCOSE [id number] 06:26:00 Test Item Value Reference Range Interpretation Comments POC-GLUCOSE METER 173 mg/dL 70-110 H TESTED AT [place] [address] ([facility]) (test code = [place] [employer] [facility] 1538) [id number] POCT-GLUCOSE [id number] 00:26:00 Test Item Value Reference Range Interpretation Comments POC-GLUCOSE METER 182 mg/dL 70-110 H TESTED AT [place] [address] ([facility]) ([facility] = [facility] 1538) [id number] POCT-GLUCOSE [id number] 18:53:00 Test Item Value Reference Range Interpretation Comments POC-GLUCOSE METER 174 mg/dL 70-110 H TESTED AT [place] [id number] [facility] ([facility] = [facility] 1538) [address] POCT-GLUCOSE [id number] 12:47:00 Test Item Value Reference Range Interpretation Comments POC-GLUCOSE METER 215 mg/dL 70-110 H TESTED AT [place] [address] (BEAKER) (test code = [place] [facility] 1538) [address] POCT-GLUCOSE [id number] 08:59:00 Test Item Value Reference Range Interpretation Comments POC-GLUCOSE METER 185 mg/dL 70-110 H TESTED AT [place] [address] (BEAKER) (test code = [place] [facility] 1538) [address] POCT-GLUCOSE [id number] 06:33:00 Test Item Value Reference Range Interpretation Comments POC-GLUCOSE METER 195 mg/dL 70-110 H TESTED AT [place] [address] (BEAKER) (test code = [place] [facility] 1538) [address] BASIC METABOLIC [id number] 03:42:00 Test Item Value Reference Range Interpretation Comments SODIUM (BEAKER) 142 meq/L 136-145 (test code = 381) POTASSIUM (BEAKER) 4.4 meq/L 3.5-5.1 (test code = 379) CHLORIDE (BEAKER) 112 meq/L 98-107 H (test code = 382) CO2 (BEAKER) (test 25 meq/L 22-29 code = 355) BLOOD UREA NITROGEN 34 mg/dL 7-21 H (BEAKER) (test code = 354) CREATININE (BEAKER) 0.96 mg/dL 0.57-1.25 (test code = 358) GLUCOSE RANDOM 154 mg/dL 70-105 H (BEAKER) (test code = 652) CALCIUM (BEAKER) 8.7 mg/dL 8.4-10.2 (test code = 697) EGFR (BEAKER) (test 74 mL/min/1.73 ESTIMA VIKKI GFR IS code = 1092) sq m NOT ACCURATE CREATININE CLEARANCE IN PREDICTING GLOMERULAR FILTRATION RATE . ESTIMATED GFR I S NOT APPLICABLE FOR DIALYSIS PATIEN TS. PROTHROMBIN [id number] 03:37:00 Test Item Value Reference Range Interpretation Comments PROTIME (BEAKER) (test code = 14.7 seconds 11.9-14.2 H 759) INR (BEAKER) (test code = 370) 1.2 <=5.9 Effective 07/28/2018: PT Reference Range ChangeNew: 11.9-14.2 Previous: 11.7- 14.7RECOMMENDED COUMADIN/WARFARIN INR THERAPY RANGESSTANDARD DOSE: 2.0-3.0 Includes: PROPHYLAXIS for venous thrombosis, systemic embolization; TREATMENT for venous thrombosis and/or pulmonary embolus.HIGH RISK: Target INR is2.5-3.5 for patients wiht mechanical heart valves.CBC W/PLT COUNT & AUTO [id number] 03:32:00 Test Item Value Reference Range Interpretation Comments WHITE BLOOD CELL COUNT 5.5 K/ L 3.5-10.5 (BEAKER) (test code = 775) RED BLOOD CELL COUNT 2.22 M/ L 4.63-6.08 L (BEAKER) (test code = 761) HEMOGLOBIN (BEAKER) 7.3 GM/DL 13.7-17.5 L (test code = 410) HEMATOCRIT (BEAKER) 23.1 % 40.1-51.0 L (test code = 411) MEAN CORPUSCULAR 104.1 fL 79.0-92.2 H Discordant MCV VOLUME (BEAKER) (test result s compared to code = 753) previous result s; clinical correl ation required. MEAN CORPUSCULAR 32.9 pg 25.7-32.2 H HEMOGLOBIN (BEAKER) (test code = 751) MEAN CORPUSCULAR 31.6 GM/DL 32.3-36.5 L HEMOGLOBIN CONC (BEAKER) (test code = 752) RED CELL DISTRIBUTION 17.1 % 11.6-14.4 H WIDTH (BEAKER) (test code = 412) PLATELET COUNT 105 K/CU MM 150-450 L (BEAKER) (test code = 756) MEAN PLATELET VOLUME 11.0 fL 9.4-12.4 (BEAKER) (test code = 754) NUCLEATED RED BLOOD 0 /100 WBC 0-0 CELLS (BEAKER) (test code = 413) NEUTROPHILS RELATIVE 64 % PERCENT (BEAKER) (test code = 429) LYMPHOCYTES RELATIVE 14 % PERCENT (BEAKER) (test code = 430) MONOCYTES RELATIVE 13 % PERCENT (BEAKER) (test code = 431) EOSINOPHILS RELATIVE 8 % PERCENT (BEAKER) (test code = 432) BASOPHILS RELATIVE 1 % PERCENT (BEAKER) (test code = 437) NEUTROPHILS ABSOLUTE 3.55 K/ L 1.78-5.38 COUNT (BEAKER) (test code = 670) LYMPHOCYTES ABSOLUTE 0.75 K/ L 1.32-3.57 L COUNT (BEAKER) (test code = 414) MONOCYTES ABSOLUTE 0.73 K/ L 0.30-0.82 COUNT (BEAKER) (test code = 415) EOSINOPHILS ABSOLUTE 0.43 K/ L 0.04-0.54 COUNT (BEAKER) (test code = 416) BASOPHILS ABSOLUTE 0.03 K/ L 0.01-0.08 COUNT (BEAKER) (test code = 417) IMMATURE 1 % 0-1 GRANULOCYTES-RELATIVE PERCENT (BEAKER) (test code = 2801) POCT-GLUCOSE [id number] 00:13:00 Test Item Value Reference Range Interpretation Comments POC-GLUCOSE METER 187 mg/dL 70-110 H TESTED AT [facility] 6720 (BEAKER) (test code = [place] 1538) [id number] POCT-GLUCOSE [id number] 18:27:00 Test Item Value Reference Range Interpretation Comments POC-GLUCOSE METER 184 mg/dL 70-110 H TESTED AT [place] [address] (BEAKER) (test code = TEX [facility] 1538) [address] POCT-GLUCOSE [id number] 14:01:00 Test Item Value Reference Range Interpretation Comments POC-GLUCOSE METER 224 mg/dL 70-110 H TESTED AT [facility] 6720 (BEAKER) (test code = [facility] 1538) [id number] 06:44:00 Test Item Value Reference Range Interpretation Comments MAGNESIUM (BEAKER) (test code = 2.6 mg/dL 1.6-2.6 627) BASIC METABOLIC [id number] 06:44:00 Test Item Value Reference Range Interpretation Comments SODIUM (BEAKER) 146 meq/L 136-145 H (test code = 381) POTASSIUM (BEAKER) 4.2 meq/L 3.5-5.1 (test code = 379) CHLORIDE (BEAKER) 115 meq/L 98-107 H (test code = 382) CO2 (BEAKER) (test 27 meq/L 22-29 code = 355) BLOOD UREA NITROGEN 41 mg/dL 7-21 H (BEAKER) (test code = 354) CREATININE (BEAKER) 1.18 mg/dL 0.57-1.25 (test code = 358) GLUCOSE RANDOM 157 mg/dL 70-105 H (BEAKER) (test code = 652) CALCIUM (BEAKER) 8.9 mg/dL 8.4-10.2 (test code = 697) EGFR (BEAKER) (test 58 mL/min/1.73 ESTIMA VIKKI GFR IS code = 1092) sq m NOT ACCURATE CREATININE CLEARANCE IN PREDICTING GLOMERULAR FILTRATION RATE . ESTIMATED GFR I S NOT APPLICABLE FOR DIALYSIS PATIEN TS. POCT-GLUCOSE [id number] 06:21:00 Test Item Value Reference Range Interpretation Comments POC-GLUCOSE METER 181 mg/dL 70-110 H TESTED AT [facility] 6720 (AKER) (test code = [place] 1538) [address] PROTHROMBIN [id number] 05:09:00 Test Item Value Reference Range Interpretation Comments PROTIME (BEAKER) (test code = 14.1 seconds 11.9-14.2 759) INR (BEAKER) (test code = 370) 1.1 <=5.9 Effective 07/28/2018: PT Reference Range ChangeNew: 11.9-14.2 Previous: 11.7- 14.7RECOMMENDED COUMADIN/WARFARIN INR THERAPY RANGESSTANDARD DOSE: 2.0-3.0 Includes: PROPHYLAXIS for venous thrombosis, systemic embolization; TREATMENT for venous thrombosis and/or pulmonary embolus.HIGH RISK: Target INR is2.5-3.5 for patients wiht mechanical heart valves.CBC (HEMOGRAM ONLY)2018-08-28 04:59:00 Test Item Value Reference Range Interpretation Comments WHITE BLOOD CELL COUNT (BEAKER) 5.0 K/ L 3.5-10.5 (test code = 775) RED BLOOD CELL COUNT (BEAKER) 2.12 M/ L 4.63-6.08 L (test code = 761) HEMOGLOBIN (BEAKER) (test code = 7.1 GM/DL 13.7-17.5 L 410) HEMATOCRIT (BEAKER) (test code = 23.0 % 40.1-51.0 L 411) MEAN CORPUSCULAR VOLUME (BEAKER) 108.5 fL 79.0-92.2 H (test code = 753) MEAN CORPUSCULAR HEMOGLOBIN 33.5 pg 25.7-32.2 H (BEAKER) (test code = 751) MEAN CORPUSCULAR HEMOGLOBIN CONC 30.9 GM/DL 32.3-36.5 L (BEAKER) (test code = 752) RED CELL DISTRIBUTION WIDTH 16.4 % 11.6-14.4 H (AKER) (test code = 412) PLATELET COUNT (BEAKER) (test 107 K/CU MM 150-450 L code = 756) MEAN PLATELET VOLUME (AKER) 10.9 fL 9.4-12.4 (test code = 754) NUCLEATED RED BLOOD CELLS 0 /100 WBC 0-0 (AKER) (test code = 413) POCT-GLUCOSE [id number] 00:55:00 Test Item Value Reference Range Interpretation Comments POC-GLUCOSE METER 211 mg/dL 70-110 H TESTED AT [place] [address] ([facility]) (test code = [place] 1538) [id number] POCT-GLUCOSE [id number] 21:29:00 Test Item Value Reference Range Interpretation Comments POC-GLUCOSE METER 220 mg/dL 70-110 H TESTED AT [place] [address] ([facility]) (test code = [place] 1538) [address] POCT-GLUCOSE [id number] 18:15:00 Test Item Value Reference Range Interpretation Comments POC-GLUCOSE METER 200 mg/dL 70-110 H TESTED AT [place] [address] ([facility]) (test code = [place] 1538) [address] POCT-GLUCOSE [id number] 11:57:00 Test Item Value Reference Range Interpretation Comments POC-GLUCOSE METER 238 mg/dL 70-110 H TESTED AT [place] [address] ([facility]) (test code = [place] 1538) [address] HEMOGLOBIN AND [id number] 08:02:00 Test Item Value Reference Range Interpretation Comments HEMOGLOBIN (BEAKER) (test code = 7.3 GM/DL 13.7-17.5 L 410) HEMATOCRIT (BEAKER) (test code = 23.2 % 40.1-51.0 L 411) [id number] 06:37:00 Test Item Value Reference Range Interpretation Comments MAGNESIUM (BEAKER) (test code = 2.6 mg/dL 1.6-2.6 627) BASIC METABOLIC [id number] 06:37:00 Test Item Value Reference Range Interpretation Comments SODIUM (BEAKER) 147 meq/L 136-145 H (test code = 381) POTASSIUM (BEAKER) 4.2 meq/L 3.5-5.1 (test code = 379) CHLORIDE (BEAKER) 117 meq/L 98-107 H (test code = 382) CO2 (BEAKER) (test 26 meq/L 22-29 code = 355) BLOOD UREA NITROGEN 37 mg/dL 7-21 H (BEAKER) (test code = 354) CREATININE (BEAKER) 1.18 mg/dL 0.57-1.25 (test code = 358) GLUCOSE RANDOM 146 mg/dL 70-105 H (BEAKER) (test code = 652) CALCIUM (BEAKER) 8.4 mg/dL 8.4-10.2 (test code = 697) EGFR (BEAKER) (test 58 mL/min/1.73 ESTIMA VIKKI GFR IS code = 1092) sq m NOT ACCURATE CREATININE CLEARANCE IN PREDICTING GLOMERULAR FILTRATION RATE . ESTIMATED GFR I S NOT APPLICABLE FOR DIALYSIS PATIEN TS. Specimen slightly ictericPOCT-GLUCOSE [id number] 06:24:00 Test Item Value Reference Range Interpretation Comments POC-GLUCOSE METER 160 mg/dL 70-110 H TESTED AT [place] [address] ([facility]) (test code = [place] 1538) [address] PROTHROMBIN [id number] 05:49:00 Test Item Value Reference Range Interpretation Comments PROTIME (BEAKER) (test code = 15.1 seconds 11.9-14.2 H 759) INR ([facility]) (test code = 370) 1.2 <=5.9 Effective 07/28/2018: PT Reference Range ChangeNew: 11.9-14.2 Previous: 11.7- 14.7RECOMMENDED COUMADIN/WARFARIN INR THERAPY RANGESSTANDARD DOSE: 2.0-3.0 Includes: PROPHYLAXIS for venous thrombosis, systemic embolization; TREATMENT for venous thrombosis and/or pulmonary embolus.HIGH RISK: Target INR is2.5-3.5 for patients wiht mechanical heart valves.POCT-GLUCOSE [id number] 18:38:00 Test Item Value Reference Range Interpretation Comments POC-GLUCOSE METER 196 mg/dL 70-110 H TESTED AT [place] [address] ([facility]) (test code = [place] 1538) [address] POCT-GLUCOSE [id number] 13:58:00 Test Item Value Reference Range Interpretation Comments POC-GLUCOSE METER 244 mg/dL 70-110 H TESTED AT [facility] 6720 (BEAKER) (test code = [place] 1538) [address] [id number] 07:56:00 Test Item Value Reference Range Interpretation Comments PHOSPHORUS (BEAKER) (test code = 2.2 mg/dL 2.3-4.7 L 604) POCT-GLUCOSE [id number] 06:22:00 Test Item Value Reference Range Interpretation Comments POC-GLUCOSE METER 179 mg/dL 70-110 H TESTED AT [place] [address] (BEAKER) (test code = [place] 1538) [address] POCT-GLUCOSE [id number] 05:10:00 Test Item Value Reference Range Interpretation Comments POC-GLUCOSE METER 249 mg/dL 70-110 H TESTED AT [place] [address] (BEAKER) (test code = [place] 1538) [address] [id number] 04:08:00 Test Item Value Reference Range Interpretation Comments MAGNESIUM (BEAKER) (test code = 2.7 mg/dL 1.6-2.6 H 627) BASIC METABOLIC [id number] 04:08:00 Test Item Value Reference Range Interpretation Comments SODIUM (BEAKER) 148 meq/L 136-145 H (test code = 381) POTASSIUM (BEAKER) 3.8 meq/L 3.5-5.1 (test code = 379) CHLORIDE (BEAKER) 119 meq/L 98-107 H (test code = 382) CO2 (BEAKER) (test 23 meq/L 22-29 code = 355) BLOOD UREA NITROGEN 25 mg/dL 7-21 H (BEAKER) (test code = 354) CREATININE (BEAKER) 0.86 mg/dL 0.57-1.25 (test code = 358) GLUCOSE RANDOM 176 mg/dL 70-105 H (BEAKER) (test code = 652) CALCIUM (BEAKER) 9.0 mg/dL 8.4-10.2 (test code = 697) EGFR (BEAKER) (test 84 mL/min/1.73 ESTIMA VIKKI GFR IS code = 1092) sq m NOT ACCURATE CREATININE CLEARANCE IN PREDICTING GLOMERULAR FILTRATION RATE . ESTIMATED GFR I S NOT APPLICABLE FOR DIALYSIS PATIEN TS. PROTHROMBIN [id number] 03:49:00 Test Item Value Reference Range Interpretation Comments PROTIME (BEAKER) (test code = 16.0 seconds 11.9-14.2 H 759) INR (BEAKER) (test code = 370) 1.4 <=5.9 Effective 07/28/2018: PT Reference Range ChangeNew: 11.9-14.2 Previous: 11.7- 14.7RECOMMENDED COUMADIN/WARFARIN INR THERAPY RANGESSTANDARD DOSE: 2.0-3.0 Includes: PROPHYLAXIS for venous thrombosis, systemic embolization; TREATMENT for venous thrombosis and/or pulmonary embolus.HIGH RISK: Target INR is2.5-3.5 for patients wiht mechanical heart valves.CBC W/PLT COUNT & AUTO [id number] 03:49:00 Test Item Value Reference Range Interpretation Comments WHITE BLOOD CELL COUNT (BEAKER) 6.3 K/ L 3.5-10.5 (test code = 775) RED BLOOD CELL COUNT (BEAKER) 2.18 M/ L 4.63-6.08 L (test code = 761) HEMOGLOBIN (BEAKER) (test code = 7.2 GM/DL 13.7-17.5 L 410) HEMATOCRIT (BEAKER) (test code = 22.6 % 40.1-51.0 L 411) MEAN CORPUSCULAR VOLUME (BEAKER) 103.7 fL 79.0-92.2 H (test code = 753) MEAN CORPUSCULAR HEMOGLOBIN 33.0 pg 25.7-32.2 H (BEAKER) (test code = 751) MEAN CORPUSCULAR HEMOGLOBIN CONC 31.9 GM/DL 32.3-36.5 L (BEAKER) (test code = 752) RED CELL DISTRIBUTION WIDTH 17.0 % 11.6-14.4 H (BEAKER) (test code = 412) PLATELET COUNT (BEAKER) (test code 81 K/CU MM 150-450 L = 756) MEAN PLATELET VOLUME (BEAKER) 10.7 fL 9.4-12.4 (test code = 754) NUCLEATED RED BLOOD CELLS (BEAKER) 0 /100 WBC 0-0 (test code = 413) NEUTROPHILS RELATIVE PERCENT 72 % (BEAKER) (test code = 429) LYMPHOCYTES RELATIVE PERCENT 10 % (BEAKER) (test code = 430) MONOCYTES RELATIVE PERCENT 11 % (BEAKER) (test code = 431) EOSINOPHILS RELATIVE PERCENT 7 % (BEAKER) (test code = 432) BASOPHILS RELATIVE PERCENT 0 % (BEAKER) (test code = 437) NEUTROPHILS ABSOLUTE COUNT 4.48 K/ L 1.78-5.38 (BEAKER) (test code = 670) LYMPHOCYTES ABSOLUTE COUNT 0.64 K/ L 1.32-3.57 L (BEAKER) (test code = 414) MONOCYTES ABSOLUTE COUNT (BEAKER) 0.67 K/ L 0.30-0.82 (test code = 415) EOSINOPHILS ABSOLUTE COUNT 0.44 K/ L 0.04-0.54 (BEAKER) (test code = 416) BASOPHILS ABSOLUTE COUNT (BEAKER) 0.02 K/ L 0.01-0.08 (test code = 417) IMMATURE GRANULOCYTES-RELATIVE 0 % 0-1 PERCENT (BEAKER) (test code = 2801) POCT-GLUCOSE [id number] 00:22:00 Test Item Value Reference Range Interpretation Comments POC-GLUCOSE METER 214 mg/dL 70-110 H TESTED AT [place] [address] ([facility]) (test code = [place] [facility] 1538) [address] POCT-GLUCOSE [id number] 17:37:00 Test Item Value Reference Range Interpretation Comments POC-GLUCOSE METER 164 mg/dL 70-110 H TESTED AT [place] [address] ([facility]) (test code = [place] [facility] 1538) [address] CBC W/PLT COUNT & AUTO [id number] 15:32:00 Test Item Value Reference Range Interpretation Comments WHITE BLOOD CELL COUNT (BEAKER) 6.5 K/ L 3.5-10.5 (test code = 775) RED BLOOD CELL COUNT (BEAKER) 2.37 M/ L 4.63-6.08 L (test code = 761) HEMOGLOBIN (BEAKER) (test code = 7.9 GM/DL 13.7-17.5 L 410) HEMATOCRIT (BEAKER) (test code = 24.5 % 40.1-51.0 L 411) MEAN CORPUSCULAR VOLUME (BEAKER) 103.4 fL 79.0-92.2 H (test code = 753) MEAN CORPUSCULAR HEMOGLOBIN 33.3 pg 25.7-32.2 H (BEAKER) (test code = 751) MEAN CORPUSCULAR HEMOGLOBIN CONC 32.2 GM/DL 32.3-36.5 L (BEAKER) (test code = 752) RED CELL DISTRIBUTION WIDTH 16.2 % 11.6-14.4 H (BEAKER) (test code = 412) PLATELET COUNT (BEAKER) (test code 88 K/CU MM 150-450 L = 756) MEAN PLATELET VOLUME (BEAKER) 10.6 fL 9.4-12.4 (test code = 754) NUCLEATED RED BLOOD CELLS (BEAKER) 0 /100 WBC 0-0 (test code = 413) NEUTROPHILS RELATIVE PERCENT 73 % (BEAKER) (test code = 429) LYMPHOCYTES RELATIVE PERCENT 9 % (BEAKER) (test code = 430) MONOCYTES RELATIVE PERCENT 14 % (BEAKER) (test code = 431) EOSINOPHILS RELATIVE PERCENT 3 % (BEAKER) (test code = 432) BASOPHILS RELATIVE PERCENT 0 % (BEAKER) (test code = 437) NEUTROPHILS ABSOLUTE COUNT 4.78 K/ L 1.78-5.38 (BEAKER) (test code = 670) LYMPHOCYTES ABSOLUTE COUNT 0.61 K/ L 1.32-3.57 L (BEAKER) (test code = 414) MONOCYTES ABSOLUTE COUNT (BEAKER) 0.93 K/ L 0.30-0.82 H (test code = 415) EOSINOPHILS ABSOLUTE COUNT 0.18 K/ L 0.04-0.54 (BEAKER) (test code = 416) BASOPHILS ABSOLUTE COUNT (BEAKER) 0.02 K/ L 0.01-0.08 (test code = 417) IMMATURE GRANULOCYTES-RELATIVE 0 % 0-1 PERCENT (BEAKER) (test code = 2801) EEG AWAKE/ASLEEP AND [id number] 14:46:00Reason for exam:->continued decreased responsivenessShould this be performed at the bedside?->YesDate(s) of EE08/25/2018DATE OF REPORT: 08/25/2018ACC:[id number] Number: [id number] Location: Inpatient ICUStart time:09:45 amStop time:10:06 amICD-10: R56.9 Unspecified ConvulsionsCPT Code: 97205 EEG HISTORY: 88 y.o. 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 MEDICATION THAT CAN AFFECT EEG: None TECHNICAL SUMMARY:This is a digital video-EEGrecorded with 32 input channels reviewed with bipolar and referential montages using the modified combinatorial system nomenclature. DESCRIPTION OF RECORD: The EEG background consists of moderate amplitude, diffuse admixtures of much 1.5-3 Hz semi-rhythmic delta, 4-6 Hz theta, as well as some faster activity. Neither [...] electrographic seizures in this study. Henri Yañez MDNeu rophysiology Fellow Ounr Leiva MD, MSClinical Neurophysiology/Epilepsy Attending POCT-GLUCOSE [id number] 12:43:00 Test Item Value Reference Range Interpretation Comments POC-GLUCOSE METER 221 mg/dL 70-110 H TESTED AT [facility] 6720 (RUBY) (test code = [place] 1538) [address] RAD, CHEST, 1 VIEW, NON [id number] 11:00:00Reason for exam:- >hemoptysisShould this be performed at the bedside?->YesFINAL REPORT [...] wires. Signed: Partha Abreu MDReport Verified Date/Time: 08/25/2018 11:00:37 Reading Location: [facility] Radiology Reading Room POCT-GLUCOSE [id number] 06:39:00 Test Item Value Reference Range Interpretation Comments POC-GLUCOSE METER 202 mg/dL 70-110 H TESTED AT [facility] 6720 (BEAKER) (test code = [place] [facility] 1538) [address] BLOOD GAS, [id number] 05:13:00 Test Item Value Reference Range Interpretation Comments PH ARTERIAL (BEAKER) (test code = 7.59 7.35-7.45 H 383) PCO2 ARTERIAL (BEAKER) (test code 25 mmHg 35-45 L = 384) PO2 ARTERIAL (BEAKER) (test code = 148 mmHg 80-90 H 385) O2 SATURATION ARTERIAL (BEAKER) 99.2 % 96.0-97.0 H (test code = 386) HCO3 ARTERIAL (BEAKER) (test code 24 mmol/L 21-29 = 388) BASE EXCESS ARTERIAL (BEAKER) 2.0 mmol/L -2.0-3.0 (test code = 387) PATIENT TEMPERATURE (BEAKER) (test 37.4 C code = 1818) FIO2 (BEAKER) (test code = 1819) 24.0 % BASIC METABOLIC [id number] 05:10:00 Test Item Value Reference Range Interpretation Comments SODIUM (BEAKER) 143 meq/L 136-145 (test code = 381) POTASSIUM (BEAKER) 3.9 meq/L 3.5-5.1 (test code = 379) CHLORIDE (BEAKER) 115 meq/L 98-107 H (test code = 382) CO2 (BEAKER) (test 23 meq/L 22-29 code = 355) BLOOD UREA NITROGEN 27 mg/dL 7-21 H (BEAKER) (test code = 354) CREATININE (BEAKER) 1.02 mg/dL 0.57-1.25 (test code = 358) GLUCOSE RANDOM 220 mg/dL 70-105 H (BEAKER) (test code = 652) CALCIUM (BEAKER) 8.8 mg/dL 8.4-10.2 (test code = 697) EGFR (BEAKER) (test 69 mL/min/1.73 ESTIMA VIKKI GFR IS code = 1092) sq m NOT ACCURATE CREATININE CLEARANCE IN PREDICTING GLOMERULAR FILTRATION RATE . ESTIMATED GFR I S NOT APPLICABLE FOR DIALYSIS PATIEN TS. Specimen slightly ictericPROTHROMBIN [id number] 05:07:00 Test Item Value Reference Range Interpretation Comments PROTIME (BEAKER) (test code = 15.6 seconds 11.9-14.2 H 759) INR (BEAKER) (test code = 370) 1.3 <=5.9 Effective 07/28/2018: PT Reference Range ChangeNew: 11.9-14.2 Previous: 11.7- 14.7RECOMMENDED COUMADIN/WARFARIN INR THERAPY RANGESSTANDARD DOSE: 2.0-3.0 Includes: PROPHYLAXIS for venous thrombosis, systemic embolization; TREATMENT for venous thrombosis and/or pulmonary embolus.HIGH RISK: Target INR is2.5-3.5 for patients wiht mechanical heart valves.CBC W/PLT COUNT & AUTO [id number] 04:52:00 Test Item Value Reference Range Interpretation Comments WHITE BLOOD CELL COUNT (BEAKER) 5.4 K/ L 3.5-10.5 (test code = 775) RED BLOOD CELL COUNT (BEAKER) 2.02 M/ L 4.63-6.08 L (test code = 761) HEMOGLOBIN (BEAKER) (test code = 6.7 GM/DL 13.7-17.5 L 410) HEMATOCRIT (BEAKER) (test code = 21.2 % 40.1-51.0 L 411) MEAN CORPUSCULAR VOLUME (BEAKER) 105.0 fL 79.0-92.2 H (test code = 753) MEAN CORPUSCULAR HEMOGLOBIN 33.2 pg 25.7-32.2 H (BEAKER) (test code = 751) MEAN CORPUSCULAR HEMOGLOBIN CONC 31.6 GM/DL 32.3-36.5 L (BEAKER) (test code = 752) RED CELL DISTRIBUTION WIDTH 15.6 % 11.6-14.4 H (BEAKER) (test code = 412) PLATELET COUNT (BEAKER) (test code 91 K/CU MM 150-450 L = 756) MEAN PLATELET VOLUME (BEAKER) 10.5 fL 9.4-12.4 (test code = 754) NUCLEATED RED BLOOD CELLS (BEAKER) 0 /100 WBC 0-0 (test code = 413) NEUTROPHILS RELATIVE PERCENT 71 % (BEAKER) (test code = 429) LYMPHOCYTES RELATIVE PERCENT 11 % (BEAKER) (test code = 430) MONOCYTES RELATIVE PERCENT 15 % (BEAKER) (test code = 431) EOSINOPHILS RELATIVE PERCENT 1 % (BEAKER) (test code = 432) BASOPHILS RELATIVE PERCENT 0 % (BEAKER) (test code = 437) NEUTROPHILS ABSOLUTE COUNT 3.88 K/ L 1.78-5.38 (BEAKER) (test code = 670) LYMPHOCYTES ABSOLUTE COUNT 0.60 K/ L 1.32-3.57 L (BEAKER) (test code = 414) MONOCYTES ABSOLUTE COUNT (BEAKER) 0.83 K/ L 0.30-0.82 H (test code = 415) EOSINOPHILS ABSOLUTE COUNT 0.07 K/ L 0.04-0.54 (BEAKER) (test code = 416) BASOPHILS ABSOLUTE COUNT (BEAKER) 0.02 K/ L 0.01-0.08 (test code = 417) IMMATURE GRANULOCYTES-RELATIVE 1 % 0-1 PERCENT (BEAKER) (test code = 2801) RAD, CHEST, 1 VIEW, NON [id number] 04:28:00Reason for exam:- >intubatedShould this be performed at the bedside?->YesFINAL REPORT CLINICAL INDICATION: Support lines. Comparison: 08/24/2018 The cardiomediastinal contours are stable. Central pulmonary vascular congestion and bilateral parenchymalopacities are similar to previous. There is no pneumothorax. Support lines are stable. Signed: Dawson Barron MDReport Verified Date/Time: 08/25/2018 04:28:55 Reading Location: [address] Reading Room POCT-GLUCOSE [id number] 00:29:00 Test Item Value Reference Range Interpretation Comments POC-GLUCOSE METER 258 mg/dL 70-110 H TESTED AT [facility] 6720 (BEAKER) (test code = [place] 1538) [id number] POCT-GLUCOSE [id number] 18:26:00 Test Item Value Reference Range Interpretation Comments POC-GLUCOSE METER 293 mg/dL 70-110 H TESTED AT [place] [id number] (BEAKER) (test code = [place] 1538) [address] BLOOD GAS, [id number] 15:38:00 Test Item Value Reference Range Interpretation Comments PH ARTERIAL (BEAKER) (test code = 7.48 7.35-7.45 H 383) PCO2 ARTERIAL (BEAKER) (test code 33 mmHg 35-45 L = 384) PO2 ARTERIAL (BEAKER) (test code = 121 mmHg 80-90 H 385) O2 SATURATION ARTERIAL (BEAKER) 98.5 % 96.0-97.0 H (test code = 386) HCO3 ARTERIAL (BEAKER) (test code 24 mmol/L 21-29 = 388) BASE EXCESS ARTERIAL (BEAKER) 0.4 mmol/L -2.0-3.0 (test code = 387) PATIENT TEMPERATURE (BEAKER) (test 38.0 C code = 1818) FIO2 (BEAKER) (test code = 1819) 30.0 % BLOOD GAS, [id number] 14:57:00 Test Item Value Reference Range Interpretation Comments PH ARTERIAL (BEAKER) (test code = 7.48 7.35-7.45 H 383) PCO2 ARTERIAL (BEAKER) (test code 33 mmHg 35-45 L = 384) PO2 ARTERIAL (BEAKER) (test code = 129 mmHg 80-90 H 385) O2 SATURATION ARTERIAL (BEAKER) 98.8 % 96.0-97.0 H (test code = 386) HCO3 ARTERIAL (BEAKER) (test code 24 mmol/L 21-29 = 388) BASE EXCESS ARTERIAL (BEAKER) 0.5 mmol/L -2.0-3.0 (test code = 387) PATIENT TEMPERATURE (BEAKER) (test 37.5 C code = 1818) FIO2 (BEAKER) (test code = 1819) 24.0 % BASIC METABOLIC [id number] 14:47:00 Test Item Value Reference Range Interpretation Comments SODIUM (BEAKER) 147 meq/L 136-145 H (test code = 381) POTASSIUM (BEAKER) 3.8 meq/L 3.5-5.1 (test code = 379) CHLORIDE (BEAKER) 116 meq/L 98-107 H (test code = 382) CO2 (BEAKER) (test 24 meq/L 22-29 code = 355) BLOOD UREA NITROGEN 30 mg/dL 7-21 H (BEAKER) (test code = 354) CREATININE (BEAKER) 1.14 mg/dL 0.57-1.25 (test code = 358) GLUCOSE RANDOM 245 mg/dL 70-105 H (BEAKER) (test code = 652) CALCIUM (BEAKER) 9.1 mg/dL 8.4-10.2 (test code = 697) EGFR (BEAKER) (test 61 mL/min/1.73 ESTIMA VIKKI GFR IS code = 1092) sq m NOT ACCURATE CREATININE CLEARANCE IN PREDICTING GLOMERULAR FILTRATION RATE . ESTIMATED GFR I S NOT APPLICABLE FOR DIALYSIS PATIEN TS. [id number] 14:47:00 Test Item Value Reference Range Interpretation Comments MAGNESIUM (BEAKER) (test code = 2.2 mg/dL 1.6-2.6 627) [id number] 14:47:00 Test Item Value Reference Range Interpretation Comments PHOSPHORUS (BEAKER) (test code = 1.9 mg/dL 2.3-4.7 L 604) CBC W/PLT COUNT & AUTO [id number] 14:12:00 Test Item Value Reference Range Interpretation Comments WHITE BLOOD CELL COUNT (BEAKER) 6.4 K/ L 3.5-10.5 (test code = 775) RED BLOOD CELL COUNT (BEAKER) 2.23 M/ L 4.63-6.08 L (test code = 761) HEMOGLOBIN (BEAKER) (test code = 7.4 GM/DL 13.7-17.5 L 410) HEMATOCRIT (BEAKER) (test code = 23.2 % 40.1-51.0 L 411) MEAN CORPUSCULAR VOLUME (BEAKER) 104.0 fL 79.0-92.2 H (test code = 753) MEAN CORPUSCULAR HEMOGLOBIN 33.2 pg 25.7-32.2 H (BEAKER) (test code = 751) MEAN CORPUSCULAR HEMOGLOBIN CONC 31.9 GM/DL 32.3-36.5 L (BEAKER) (test code = 752) RED CELL DISTRIBUTION WIDTH 15.5 % 11.6-14.4 H (BEAKER) (test code = 412) PLATELET COUNT (BEAKER) (test 113 K/CU MM 150-450 L code = 756) MEAN PLATELET VOLUME (BEAKER) 10.8 fL 9.4-12.4 (test code = 754) NUCLEATED RED BLOOD CELLS 0 /100 WBC 0-0 (BEAKER) (test code = 413) NEUTROPHILS RELATIVE PERCENT 74 % (BEAKER) (test code = 429) LYMPHOCYTES RELATIVE PERCENT 10 % (BEAKER) (test code = 430) MONOCYTES RELATIVE PERCENT 15 % (BEAKER) (test code = 431) EOSINOPHILS RELATIVE PERCENT 0 % (BEAKER) (test code = 432) BASOPHILS RELATIVE PERCENT 0 % (BEAKER) (test code = 437) NEUTROPHILS ABSOLUTE COUNT 4.71 K/ L 1.78-5.38 (BEAKER) (test code = 670) LYMPHOCYTES ABSOLUTE COUNT 0.66 K/ L 1.32-3.57 L (BEAKER) (test code = 414) MONOCYTES ABSOLUTE COUNT (BEAKER) 0.94 K/ L 0.30-0.82 H (test code = 415) EOSINOPHILS ABSOLUTE COUNT 0.01 K/ L 0.04-0.54 L (BEAKER) (test code = 416) BASOPHILS ABSOLUTE COUNT (BEAKER) 0.02 K/ L 0.01-0.08 (test code = 417) IMMATURE GRANULOCYTES-RELATIVE 0 % 0-1 PERCENT (BEAKER) (test code = 2801) CALCIUM, [id number] 13:35:00 Test Item Value Reference Range Interpretation Comments CALCIUM IONIZED (BEAKER) (test 1.16 mmol/L 1.12-1.27 code = 698) PH, BLOOD (BEAKER) (test code = 7.49 1810) TROPONIN [id number] 13:08:00 Test Item Value Reference Range Interpretation Comments TROPONIN I (BEAKER) (test code = 0.07 ng/mL 0.00-0.03 H 397) Troponin I (TnI) levels must be interpreted [...] acidosis, acute neurological disease, and persistent tachyarrhythmia.POCT-GLUCOSE [id number] 12:10:00 Test Item Value Reference Range Interpretation Comments POC-GLUCOSE METER 258 mg/dL 70-110 H TESTED AT [facility] 67 (BEAKER) (test code = [facility] 1538) [address] POCT-GLUCOSE [id number] 06:22:00 Test Item Value Reference Range Interpretation Comments POC-GLUCOSE METER 215 mg/dL 70-110 H TESTED AT [place] [address] (BEAKER) (test code = [facility] 1538) [address] BLOOD GAS, [id number] 06:06:00 Test Item Value Reference Range Interpretation Comments PH ARTERIAL (BEAKER) (test code = 7.53 7.35-7.45 H 383) PCO2 ARTERIAL (BEAKER) (test code 29 mmHg 35-45 L = 384) PO2 ARTERIAL (BEAKER) (test code = 88 mmHg 80-90 385) O2 SATURATION ARTERIAL (BEAKER) 97.6 % 96.0-97.0 H (test code = 386) HCO3 ARTERIAL (BEAKER) (test code 24 mmol/L 21-29 = 388) BASE EXCESS ARTERIAL (BEAKER) 2.4 mmol/L -2.0-3.0 (test code = 387) PATIENT TEMPERATURE (BEAKER) (test 37.2 C code = 1818) FIO2 (BEAKER) (test code = 1819) 24.0 % BASIC METABOLIC [id number] 05:50:00 Test Item Value Reference Range Interpretation Comments SODIUM (BEAKER) 144 meq/L 136-145 (test code = 381) POTASSIUM (BEAKER) 3.4 meq/L 3.5-5.1 L (test code = 379) CHLORIDE (BEAKER) 111 meq/L 98-107 H (test code = 382) CO2 (BEAKER) (test 25 meq/L 22-29 code = 355) BLOOD UREA NITROGEN 31 mg/dL 7-21 H (BEAKER) (test code = 354) CREATININE (BEAKER) 1.10 mg/dL 0.57-1.25 (test code = 358) GLUCOSE RANDOM 206 mg/dL 70-105 H (BEAKER) (test code = 652) CALCIUM (BEAKER) 8.7 mg/dL 8.4-10.2 (test code = 697) EGFR (BEAKER) (test 63 mL/min/1.73 ESTIMA VIKKI GFR IS code = 1092) sq m NOT ACCURATE CREATININE CLEARANCE IN PREDICTING GLOMERULAR FILTRATION RATE . ESTIMATED GFR I S NOT APPLICABLE FOR DIALYSIS PATIEN TS. Specimen slightly ictericCBC W/PLT COUNT & AUTO [id number] 05:49:00 Test Item Value Reference Range Interpretation Comments WHITE BLOOD CELL COUNT (BEAKER) 5.1 K/ L 3.5-10.5 (test code = 775) RED BLOOD CELL COUNT (BEAKER) 2.27 M/ L 4.63-6.08 L (test code = 761) HEMOGLOBIN (BEAKER) (test code = 7.7 GM/DL 13.7-17.5 L 410) HEMATOCRIT (BEAKER) (test code = 23.8 % 40.1-51.0 L 411) MEAN CORPUSCULAR VOLUME (BEAKER) 104.8 fL 79.0-92.2 H (test code = 753) MEAN CORPUSCULAR HEMOGLOBIN 33.9 pg 25.7-32.2 H (BEAKER) (test code = 751) MEAN CORPUSCULAR HEMOGLOBIN CONC 32.4 GM/DL 32.3-36.5 (BEAKER) (test code = 752) RED CELL DISTRIBUTION WIDTH 15.4 % 11.6-14.4 H (BEAKER) (test code = 412) PLATELET COUNT (BEAKER) (test code 87 K/CU MM 150-450 L = 756) MEAN PLATELET VOLUME (BEAKER) 10.3 fL 9.4-12.4 (test code = 754) NUCLEATED RED BLOOD CELLS (BEAKER) 0 /100 WBC 0-0 (test code = 413) NEUTROPHILS RELATIVE PERCENT 68 % (BEAKER) (test code = 429) LYMPHOCYTES RELATIVE PERCENT 18 % (BEAKER) (test code = 430) MONOCYTES RELATIVE PERCENT 14 % (BEAKER) (test code = 431) EOSINOPHILS RELATIVE PERCENT 1 % (BEAKER) (test code = 432) BASOPHILS RELATIVE PERCENT 0 % (BEAKER) (test code = 437) NEUTROPHILS ABSOLUTE COUNT 3.42 K/ L 1.78-5.38 (BEAKER) (test code = 670) LYMPHOCYTES ABSOLUTE COUNT 0.89 K/ L 1.32-3.57 L (BEAKER) (test code = 414) MONOCYTES ABSOLUTE COUNT (BEAKER) 0.69 K/ L 0.30-0.82 (test code = 415) EOSINOPHILS ABSOLUTE COUNT 0.04 K/ L 0.04-0.54 (BEAKER) (test code = 416) BASOPHILS ABSOLUTE COUNT (BEAKER) 0.01 K/ L 0.01-0.08 (test code = 417) IMMATURE GRANULOCYTES-RELATIVE 0 % 0-1 PERCENT (BEAKER) (test code = 2801) PROTHROMBIN [id number] 05:34:00 Test Item Value Reference Range Interpretation Comments PROTIME (BEAKER) (test code = 17.0 seconds 11.9-14.2 H 759) INR (BEAKER) (test code = 370) 1.5 <=5.9 Effective 07/28/2018: PT Reference Range ChangeNew: 11.9-14.2 Previous: 11.7- 14.7RECOMMENDED COUMADIN/WARFARIN INR THERAPY RANGESSTANDARD DOSE: 2.0-3.0 Includes: PROPHYLAXIS for venous thrombosis, systemic embolization; TREATMENT for venous thrombosis and/or pulmonary embolus.HIGH RISK: Target INR is2.5-3.5 for patients wiht mechanical heart valves.HEMOGLOBIN AND [id number] 05:30:00 Test Item Value Reference Range Interpretation Comments HEMOGLOBIN (BEAKER) (test code = 7.7 GM/DL 13.7-17.5 L 410) HEMATOCRIT (BEAKER) (test code = 23.8 % 40.1-51.0 L 411) RAD, CHEST, 1 VIEW, NON [id number] 04:20:00Reason for exam:- >intubatedShould this be performed at the bedside?->YesFINAL REPORT CLINICAL INDICATION: Support lines. Comparison: 08/23/2018 The right costophrenic sulcus is excluded. The cardiomediastinal contours are stable. Central pulmonary vascular congestion and bilateral parenchymal and left pleural opacities are similar to previous. Thereis no pneumothorax. Support lines are stable. Signed: Dawson Barron MDReport Verified Date/Time: 08/24/2018 04:20:37 Reading Location: [address] Reading Room HEMOGLOBIN AND [id number] 00:40:00 Test Item Value Reference Range Interpretation Comments HEMOGLOBIN (BEAKER) (test code = 7.8 GM/DL 13.7-17.5 L 410) HEMATOCRIT (BEAKER) (test code = 24.2 % 40.1-51.0 L 411) POCT-GLUCOSE [id number] 00:30:00 Test Item Value Reference Range Interpretation Comments POC-GLUCOSE METER 192 mg/dL 70-110 H TEST[facility] AT [place] [address] [facility] (test code = [place] 1538) [address] POCT-GLUCOSE [id number] 17:25:00 Test Item Value Reference Range Interpretation Comments POC-GLUCOSE METER 199 mg/dL 70-110 H TESTED AT [place] [address] ([facility]) (test code = [place] 1538) [address] HEMOGLOBIN AND [id number] 15:58:00 Test Item Value Reference Range Interpretation Comments HEMOGLOBIN (BEAKER) (test code = 7.6 GM/DL 13.7-17.5 L 410) HEMATOCRIT (BEAKER) (test code = 23.1 % 40.1-51.0 L 411) POCT-GLUCOSE [id number] 13:05:00 Test Item Value Reference Range Interpretation Comments POC-GLUCOSE METER 196 mg/dL 70-110 H TESTED AT [place] [address] ([facility]) (test code = [place] 1538) [address] TROPONIN [id number] 10:06:00 Test Item Value Reference Range Interpretation Comments TROPONIN I (BEAKER) (test code = 0.08 ng/mL 0.00-0.03 H 397) Troponin I (TnI) levels must be interpreted [...] and persistent tachyarrhythmia.CBC W/PLT COUNT & AUTO DIFFERENTIAL 2018-08-23 09:30:00 Test Item Value Reference Range Interpretation Comments WHITE BLOOD CELL COUNT (BEAKER) 5.4 K/ L 3.5-10.5 (test code = 775) RED BLOOD CELL COUNT (BEAKER) 2.33 M/ L 4.63-6.08 L (test code = 761) HEMOGLOBIN (BEAKER) (test code = 7.8 GM/DL 13.7-17.5 L 410) HEMATOCRIT (BEAKER) (test code = 23.8 % 40.1-51.0 L 411) MEAN CORPUSCULAR VOLUME (BEAKER) 102.1 fL 79.0-92.2 H (test code = 753) MEAN CORPUSCULAR HEMOGLOBIN 33.5 pg 25.7-32.2 H (BEAKER) (test code = 751) MEAN CORPUSCULAR HEMOGLOBIN CONC 32.8 GM/DL 32.3-36.5 (BEAKER) (test code = 752) RED CELL DISTRIBUTION WIDTH 15.3 % 11.6-14.4 H (BEAKER) (test code = 412) PLATELET COUNT (BEAKER) (test code 81 K/CU MM 150-450 L = 756) MEAN PLATELET VOLUME (BEAKER) 11.3 fL 9.4-12.4 (test code = 754) NUCLEATED RED BLOOD CELLS (BEAKER) 0 /100 WBC 0-0 (test code = 413) NEUTROPHILS RELATIVE PERCENT 69 % (BEAKER) (test code = 429) LYMPHOCYTES RELATIVE PERCENT 14 % (BEAKER) (test code = 430) MONOCYTES RELATIVE PERCENT 13 % (BEAKER) (test code = 431) EOSINOPHILS RELATIVE PERCENT 3 % (BEAKER) (test code = 432) BASOPHILS RELATIVE PERCENT 0 % (BEAKER) (test code = 437) NEUTROPHILS ABSOLUTE COUNT 3.76 K/ L 1.78-5.38 (BEAKER) (test code = 670) LYMPHOCYTES ABSOLUTE COUNT 0.77 K/ L 1.32-3.57 L (BEAKER) (test code = 414) MONOCYTES ABSOLUTE COUNT (BEAKER) 0.70 K/ L 0.30-0.82 (test code = 415) EOSINOPHILS ABSOLUTE COUNT 0.17 K/ L 0.04-0.54 (BEAKER) (test code = 416) BASOPHILS ABSOLUTE COUNT (BEAKER) 0.01 K/ L 0.01-0.08 (test code = 417) IMMATURE GRANULOCYTES-RELATIVE 0 % 0-1 PERCENT (BEAKER) (test code = 2801) BLOOD GAS, [id number] 09:19:00 Test Item Value Reference Range Interpretation Comments PH ARTERIAL (BEAKER) (test code = 7.55 7.35-7.45 H 383) PCO2 ARTERIAL (BEAKER) (test code 31 mmHg 35-45 L = 384) PO2 ARTERIAL (BEAKER) (test code = 180 mmHg 80-90 H 385) O2 SATURATION ARTERIAL (BEAKER) 99.4 % 96.0-97.0 H (test code = 386) HCO3 ARTERIAL (BEAKER) (test code 26 mmol/L 21-29 = 388) BASE EXCESS ARTERIAL (BEAKER) 4.2 mmol/L -2.0-3.0 H (test code = 387) PATIENT TEMPERATURE (BEAKER) (test 38.0 C code = 1818) FIO2 (BEAKER) (test code = 1819) 30.0 % BLOOD GAS, [id number] 05:48:00 Test Item Value Reference Range Interpretation Comments PH ARTERIAL (BEAKER) (test code = 7.58 7.35-7.45 H 383) PCO2 ARTERIAL (BEAKER) (test code 28 mmHg 35-45 L = 384) PO2 ARTERIAL (BEAKER) (test code = 215 mmHg 80-90 H 385) O2 SATURATION ARTERIAL (BEAKER) 99.6 % 96.0-97.0 H (test code = 386) HCO3 ARTERIAL (BEAKER) (test code 26 mmol/L 21-29 = 388) BASE EXCESS ARTERIAL (BEAKER) 4.1 mmol/L -2.0-3.0 H (test code = 387) PATIENT TEMPERATURE (BEAKER) (test 37.1 C code = 1818) FIO2 (BEAKER) (test code = 1819) 40.0 % RAD, CHEST, 1 VIEW, NON [id number] 04:45:00Reason for exam:- >intubatedShould this be performed at the bedside?->YesFINAL REPORT RAD, CHEST, 1 VIEW, NON DEPT INDICATION: intubated COMPARISON: Prior day's exam FINDINGS: Portable frontal view of the chest. IMPRESSION: Support Lines: Stable. Lungs and pleura: Unchanged airspace and pleural opacities. No pneumothorax.Heart and mediastinum: Stable contours. Stable surgical changes.Additional findings: None. Signed: David Jha MDReportVerified Date/Time: 08/23/2018 04:45:26 BASIC METABOLIC PANEL 2018-08-23 04:11:00 Test Item Value Reference Range Interpretation Comments SODIUM (BEAKER) 145 meq/L 136-145 (test code = 381) POTASSIUM (BEAKER) 3.6 meq/L 3.5-5.1 Specimen slightly (test code = 379) hemolyzed CHLORIDE (BEAKER) 110 meq/L 98-107 H (test code = 382) CO2 (BEAKER) (test 26 meq/L 22-29 code = 355) BLOOD UREA NITROGEN 29 mg/dL 7-21 H (BEAKER) (test code = 354) CREATININE (BEAKER) 1.05 mg/dL 0.57-1.25 Specimen slightly (test code = 358) hemolyzed GLUCOSE RANDOM 155 mg/dL 70-105 H (BEAKER) (test code = 652) CALCIUM (BEAKER) 9.0 mg/dL 8.4-10.2 (test code = 697) EGFR (BEAKER) (test 67 mL/min/1.73 ESTIMA VIKKI GFR IS code = 1092) sq m NOT ACCURATE CREATININE CLEARANCE IN PREDICTING GLOMERULAR FILTRATION RATE . ESTIMATED GFR I S NOT APPLICABLE FOR DIALYSIS PATIEN TS. Specimen slightly ictericCT, BRAIN, WITHOUT [id number] 03:59:00FINAL REPORT CT Head without contrast CLINICAL HISTORY: Encephalopathy TECHNIQUE: Contiguous axial images through the head without contrast. This exam was performed according to the departmental dose optimization program which includes automated exposure control, adjustment of th e mA and/or kV according to the patient size, and/or use of an iterative reconstruction technique. COMPARISON: CT head dated 03/02/2018. FINDINGS: There is no CT evidence of acute infarct or intracranialhemorrhage. There is periventricular and subcortical white matter hypodensity which is nonspecific bu t compatible with chronic microvascular ischemic change. There [...] signs of acute sinusitis. Signed: David Jha MDReport Verified Date/Time: 08/23/2018 03:59:22 ONIN [id number] 02:22:00 Test Item Value Reference Range Interpretation Comments TROPONIN I (BEAKER) (test code = 0.08 ng/mL 0.00-0.03 H 397) Troponin I (TnI) levels must be interpreted [...] and persistent tachyarrhythmia.CBC W/PLT COUNT & AUTO DIFFERENTIAL 2018-08-23 02:06:00 Test Item Value Reference Range Interpretation Comments WHITE BLOOD CELL COUNT (BEAKER) 6.1 K/ L 3.5-10.5 (test code = 775) RED BLOOD CELL COUNT (BEAKER) 2.34 M/ L 4.63-6.08 L (test code = 761) HEMOGLOBIN (BEAKER) (test code = 8.0 GM/DL 13.7-17.5 L 410) HEMATOCRIT (BEAKER) (test code = 23.9 % 40.1-51.0 L 411) MEAN CORPUSCULAR VOLUME (BEAKER) 102.1 fL 79.0-92.2 H (test code = 753) MEAN CORPUSCULAR HEMOGLOBIN 34.2 pg 25.7-32.2 H (BEAKER) (test code = 751) MEAN CORPUSCULAR HEMOGLOBIN CONC 33.5 GM/DL 32.3-36.5 (BEAKER) (test code = 752) RED CELL DISTRIBUTION WIDTH 15.5 % 11.6-14.4 H (BEAKER) (test code = 412) PLATELET COUNT (BEAKER) (test code 96 K/CU MM 150-450 L = 756) MEAN PLATELET VOLUME (BEAKER) 11.0 fL 9.4-12.4 (test code = 754) NUCLEATED RED BLOOD CELLS (BEAKER) 0 /100 WBC 0-0 (test code = 413) NEUTROPHILS RELATIVE PERCENT 73 % (BEAKER) (test code = 429) LYMPHOCYTES RELATIVE PERCENT 11 % (BEAKER) (test code = 430) MONOCYTES RELATIVE PERCENT 13 % (BEAKER) (test code = 431) EOSINOPHILS RELATIVE PERCENT 1 % (BEAKER) (test code = 432) BASOPHILS RELATIVE PERCENT 0 % (BEAKER) (test code = 437) NEUTROPHILS ABSOLUTE COUNT 4.48 K/ L 1.78-5.38 (BEAKER) (test code = 670) LYMPHOCYTES ABSOLUTE COUNT 0.70 K/ L 1.32-3.57 L (BEAKER) (test code = 414) MONOCYTES ABSOLUTE COUNT (BEAKER) 0.82 K/ L 0.30-0.82 (test code = 415) EOSINOPHILS ABSOLUTE COUNT 0.08 K/ L 0.04-0.54 (BEAKER) (test code = 416) BASOPHILS ABSOLUTE COUNT (BEAKER) 0.02 K/ L 0.01-0.08 (test code = 417) IMMATURE GRANULOCYTES-RELATIVE 1 % 0-1 PERCENT (BEAKER) (test code = 2801) HEMOGLOBIN AND [id number] 02:04:00 Test Item Value Reference Range Interpretation Comments HEMOGLOBIN (BEAKER) (test code = 8.0 GM/DL 13.7-17.5 L 410) HEMATOCRIT (BEAKER) (test code = 23.9 % 40.1-51.0 L 411) POCT-GLUCOSE [id number] 01:58:00 Test Item Value Reference Range Interpretation Comments POC-GLUCOSE METER 194 mg/dL 70-110 H TESTED AT [facility] 6720 (BEAKER) (test code = [place] [employer] [place] 1538) [address] POCT-GLUCOSE [id number] 18:05:00 Test Item Value Reference Range Interpretation Comments POC-GLUCOSE METER 212 mg/dL 70-110 H TESTED AT [facility] 6720 (BEAKER) (test code = [place] [employer] [place] 1538) [address] BLOOD GAS, [id number] 17:31:00 Test Item Value Reference Range Interpretation Comments PH ARTERIAL (BEAKER) (test code = 7.44 7.35-7.45 383) PCO2 ARTERIAL (BEAKER) (test code 38 mmHg 35-45 = 384) PO2 ARTERIAL (BEAKER) (test code = 63 mmHg 80-90 L 385) O2 SATURATION ARTERIAL (BEAKER) 92.8 % 96.0-97.0 L (test code = 386) HCO3 ARTERIAL (BEAKER) (test code 25 mmol/L 21-29 = 388) BASE EXCESS ARTERIAL (BEAKER) 1.0 mmol/L -2.0-3.0 (test code = 387) PATIENT TEMPERATURE (BEAKER) (test 37.0 C code = 1818) FIO2 (BEAKER) (test code = 1819) 40.0 % RAD, CHEST, 1 VIEW, NON [id number] 16:59:00Post-intubationReason for exam:- >intubationShould this be performed at the bedside?->YesFINAL REPORT [...] MDReport Verified Date/Time: 08/22/2018 16:59:35 Reading Location: [facility] B1 C013X Ortho Consult Reading Room CBC W/PLT COUNT & AUTO [id number] 16:38:00 Test Item Value Reference Range Interpretation Comments WHITE BLOOD CELL COUNT (BEAKER) 5.2 K/ L 3.5-10.5 (test code = 775) RED BLOOD CELL COUNT (BEAKER) 2.47 M/ L 4.63-6.08 L (test code = 761) HEMOGLOBIN (BEAKER) (test code = 8.3 GM/DL 13.7-17.5 L 410) HEMATOCRIT (BEAKER) (test code = 25.3 % 40.1-51.0 L 411) MEAN CORPUSCULAR VOLUME (BEAKER) 102.4 fL 79.0-92.2 H (test code = 753) MEAN CORPUSCULAR HEMOGLOBIN 33.6 pg 25.7-32.2 H (BEAKER) (test code = 751) MEAN CORPUSCULAR HEMOGLOBIN CONC 32.8 GM/DL 32.3-36.5 (BEAKER) (test code = 752) RED CELL DISTRIBUTION WIDTH 15.3 % 11.6-14.4 H (BEAKER) (test code = 412) PLATELET COUNT (BEAKER) (test code 75 K/CU MM 150-450 L = 756) MEAN PLATELET VOLUME (BEAKER) 11.3 fL 9.4-12.4 (test code = 754) NUCLEATED RED BLOOD CELLS (BEAKER) 0 /100 WBC 0-0 (test code = 413) NEUTROPHILS RELATIVE PERCENT 75 % (BEAKER) (test code = 429) LYMPHOCYTES RELATIVE PERCENT 15 % (BEAKER) (test code = 430) MONOCYTES RELATIVE PERCENT 10 % (BEAKER) (test code = 431) EOSINOPHILS RELATIVE PERCENT 0 % (BEAKER) (test code = 432) BASOPHILS RELATIVE PERCENT 0 % (BEAKER) (test code = 437) NEUTROPHILS ABSOLUTE COUNT 3.90 K/ L 1.78-5.38 (BEAKER) (test code = 670) LYMPHOCYTES ABSOLUTE COUNT 0.76 K/ L 1.32-3.57 L (BEAKER) (test code = 414) MONOCYTES ABSOLUTE COUNT (BEAKER) 0.52 K/ L 0.30-0.82 (test code = 415) EOSINOPHILS ABSOLUTE COUNT 0.02 K/ L 0.04-0.54 L (BEAKER) (test code = 416) BASOPHILS ABSOLUTE COUNT (BEAKER) 0.01 K/ L 0.01-0.08 (test code = 417) IMMATURE GRANULOCYTES-RELATIVE 0 % 0-1 PERCENT (BEAKER) (test code = 2801) HEMOGLOBIN AND [id number] 16:25:00 Test Item Value Reference Range Interpretation Comments HEMOGLOBIN (BEAKER) (test code = 8.3 GM/DL 13.7-17.5 L 410) HEMATOCRIT (BEAKER) (test code = 25.3 % 40.1-51.0 L 411) BLOOD GAS, [id number] 15:56:00 Test Item Value Reference Range Interpretation Comments PH VENOUS (BEAKER) (test code = 7.36 7.32-7.42 701) PCO2 VENOUS (BEAKER) (test code = 42 mmHg 41-51 755) PO2 VENOUS (BEAKER) (test code = 42 mmHg 25-40 H 702) O2 SATURATION VENOUS (BEAKER) 76.6 % 40.0-70.0 H (test code = 703) HCO3 VENOUS (BEAKER) (test code = 24 mmol/L 21-29 705) BASE EXCESS VENOUS (BEAKER) (test -1.8 mmol/L -2.0-3.0 code = 704) PATIENT TEMPERATURE (BEAKER) 36.7 C (test code = 1818) FIO2 (BEAKER) (test code = 1819) 21.0 % HEPATIC FUNCTION [id number] 14:56:00 Test Item Value Reference Range Interpretation Comments TOTAL PROTEIN (BEAKER) 7.5 gm/dL 6.0-8.3 Speci men slightly (test code = 770) hemolyzed ALBUMIN (BEAKER) (test 4.1 g/dL 3.5-5.0 Speci men slightly code = 1145) hemolyzed BILIRUBIN TOTAL 2.3 mg/dL 0.2-1.2 H Specimen sli ghtly (BEAKER) (test code = hemoly zed 377) BILIRUBIN DIRECT 0.8 mg/dL 0.1-0.5 H Specimen sl ightly (BEAKER) (test code = hemoly zed 706) ALKALINE PHOSPHATASE 103 U/L 40-150 (BEAKER) (test code = 346) AST (SGOT) (BEAKER) 23 U/L 5-34 Specimen slightly (test code = 353) hemolyzed ALT (SGPT) (BEAKER) 15 U/L 6-55 Specimen slightly (test code = 347) hemolyzed Specimen slightly [id number] 14:50:00 Test Item Value Reference Range Interpretation Comments AMMONIA (BEAKER) (test code = 348) 129 mol/L 18-72 H TROPONIN [id number] 14:12:00 Test Item Value Reference Range Interpretation Comments TROPONIN I (BEAKER) (test code = 0.02 ng/mL 0.00-0.03 397) Troponin I (TnI) levels must be interpreted [...] and persistent tachyarrhythmia.RAD, CHEST, 1 VIEW, NON [id number] 14:11:00Post-intubationReason for exam:->r/o pnaShould this be performed [...] significant change. Signed: Tomasz De La Torre Verified Date/Time: 2018 14:11:20 Reading Location: [facility] C013X [facility] Consult Reading Room [id number] 2018-08-22 14:06:00 Test Item Value Reference Range Interpretation Comments PHOSPHORUS (BEAKER) (test code = 3.6 mg/dL 2.3-4.7 604) [id number] 14:06:00 Test Item Value Reference Range Interpretation Comments MAGNESIUM (BEAKER) (test code = 2.0 mg/dL 1.6-2.6 627) COMPREHENSIVE METABOLIC [id number] 14:06:00 Test Item Value Reference Range Interpretation Comments TOTAL PROTEIN 7.4 gm/dL 6.0-8.3 (BEAKER) (test code = 770) ALBUMIN (BEAKER) 4.1 g/dL 3.5-5.0 (test code = 1145) ALKALINE PHOSPHATASE 103 U/L 40-150 (BEAKER) (test code = 346) BILIRUBIN TOTAL 2.3 mg/dL 0.2-1.2 H (BEAKER) (test code = 377) SODIUM (BEAKER) (test 140 meq/L 136-145 code = 381) POTASSIUM (BEAKER) 4.0 meq/L 3.5-5.1 (test code = 379) CHLORIDE (BEAKER) 105 meq/L 98-107 (test code = 382) CO2 (BEAKER) (test 24 meq/L 22-29 code = 355) BLOOD UREA NITROGEN 35 mg/dL 7-21 H (BEAKER) (test code = 354) CREATININE (BEAKER) 1.23 mg/dL 0.57-1.25 (test code = 358) GLUCOSE RANDOM 170 mg/dL 70-105 H (BEAKER) (test code = 652) CALCIUM (BEAKER) 9.5 mg/dL 8.4-10.2 (test code = 697) AST (SGOT) (BEAKER) 22 U/L 5-34 (test code = 353) ALT (SGPT) (BEAKER) 15 U/L 6-55 (test code = 347) EGFR (BEAKER) (test 56 mL/min/1.73 ESTIMA VIKKI GFR IS code = 1092) sq m NOT ACCURATE CREATININE CLEARANCE IN PREDICTING GLOMERULAR FILTRATION RATE . ESTIMATED GFR I S NOT APPLICABLE FOR DIALYSIS PATIEN TS. Specimen slightly ictericLACTIC ACID, [id number] 14:01:00 Test Item Value Reference Range Interpretation Comments LACTATE BLOOD VENOUS 1.9 mmol/L 0.5-2.2 Specime n slightly (2) (BEAKER) (test hemolyzed code = 2872) Specimen slightly [id number] 14:00:00 Test Item Value Reference Range Interpretation Comments FIBRINOGEN LEVEL (BEAKER) (test 329 mg/dl 225-434 code = 658) [id number] 14:00:00 Test Item Value Reference Range Interpretation Comments PARTIAL THROMBOPLASTIN TIME 36.4 seconds 22.5-36.0 H (BEAKER) (test code = 760) PROTHROMBIN [id number] 13:59:00 Test Item Value Reference Range Interpretation Comments PROTIME (BEAKER) (test code = 22.1 seconds 11.9-14.2 H 759) INR (BEAKER) (test code = 370) 2.1 <=5.9 Effective 07/28/2018: PT Reference Range ChangeNew: 11.9-14.2 Previous: 11.7- 14.7RECOMMENDED COUMADIN/WARFARIN INR THERAPY RANGESSTANDARD DOSE: 2.0-3.0 Includes: PROPHYLAXIS for venous thrombosis, systemic embolization; TREATMENT for venous thrombosis and/or pulmonary embolus.HIGH RISK: Target INR is2.5-3.5 for patients wiht mechanical heart valves.CBC W/PLT COUNT & AUTO [id number] 13:47:00 Test Item Value Reference Range Interpretation Comments WHITE BLOOD CELL COUNT (BEAKER) 4.9 K/ L 3.5-10.5 (test code = 775) RED BLOOD CELL COUNT (BEAKER) 2.57 M/ L 4.63-6.08 L (test code = 761) HEMOGLOBIN (BEAKER) (test code = 8.6 GM/DL 13.7-17.5 L 410) HEMATOCRIT (BEAKER) (test code = 26.4 % 40.1-51.0 L 411) MEAN CORPUSCULAR VOLUME (BEAKER) 102.7 fL 79.0-92.2 H (test code = 753) MEAN CORPUSCULAR HEMOGLOBIN 33.5 pg 25.7-32.2 H (BEAKER) (test code = 751) MEAN CORPUSCULAR HEMOGLOBIN CONC 32.6 GM/DL 32.3-36.5 (BEAKER) (test code = 752) RED CELL DISTRIBUTION WIDTH 15.1 % 11.6-14.4 H (BEAKER) (test code = 412) PLATELET COUNT (BEAKER) (test code 81 K/CU MM 150-450 L = 756) MEAN PLATELET VOLUME (BEAKER) 11.2 fL 9.4-12.4 (test code = 754) NUCLEATED RED BLOOD CELLS (BEAKER) 0 /100 WBC 0-0 (test code = 413) NEUTROPHILS RELATIVE PERCENT 75 % (BEAKER) (test code = 429) LYMPHOCYTES RELATIVE PERCENT 15 % (BEAKER) (test code = 430) MONOCYTES RELATIVE PERCENT 10 % (BEAKER) (test code = 431) EOSINOPHILS RELATIVE PERCENT 0 % (BEAKER) (test code = 432) BASOPHILS RELATIVE PERCENT 0 % (BEAKER) (test code = 437) NEUTROPHILS ABSOLUTE COUNT 3.64 K/ L 1.78-5.38 (BEAKER) (test code = 670) LYMPHOCYTES ABSOLUTE COUNT 0.72 K/ L 1.32-3.57 L (BEAKER) (test code = 414) MONOCYTES ABSOLUTE COUNT (BEAKER) 0.47 K/ L 0.30-0.82 (test code = 415) EOSINOPHILS ABSOLUTE COUNT 0.01 K/ L 0.04-0.54 L (BEAKER) (test code = 416) BASOPHILS ABSOLUTE COUNT (BEAKER) 0.01 K/ L 0.01-0.08 (test code = 417) IMMATURE GRANULOCYTES-RELATIVE 0 % 0-1 PERCENT (BEAKER) (test code = 2801) POCT-GLUCOSE [id number] 07:50:00 Test Item Value Reference Range Interpretation Comments POC-GLUCOSE METER 137 mg/dL 70-110 H TESTED AT [facility] 6720 (BEAKER) (test code = TEX HYDE MD 1538) [address] BASIC METABOLIC [id number] 06:28:00 Test Item Value Reference Range Interpretation Comments SODIUM (BEAKER) 137 meq/L 136-145 (test code = 381) POTASSIUM (BEAKER) 3.7 meq/L 3.5-5.1 (test code = 379) CHLORIDE (BEAKER) 104 meq/L 98-107 (test code = 382) CO2 (BEAKER) (test 28 meq/L 22-29 code = 355) BLOOD UREA NITROGEN 26 mg/dL 7-21 H (BEAKER) (test code = 354) CREATININE (BEAKER) 1.26 mg/dL 0.57-1.25 H (test code = 358) GLUCOSE RANDOM 100 mg/dL 70-105 (BEAKER) (test code = 652) CALCIUM (BEAKER) 8.6 mg/dL 8.4-10.2 (test code = 697) EGFR (BEAKER) (test 54 mL/min/1.73 ESTIMA VIKKI GFR IS code = 1092) sq m NOT ACCURATE CREATININE CLEARANCE IN PREDICTING GLOMERULAR FILTRATION RATE . ESTIMATED GFR I S NOT APPLICABLE FOR DIALYSIS PATIEN TS. CBC W/PLT COUNT & AUTO [id number] 06:08:00 Test Item Value Reference Range Interpretation Comments WHITE BLOOD CELL COUNT (BEAKER) 3.4 K/ L 3.5-10.5 L (test code = 775) RED BLOOD CELL COUNT (BEAKER) 2.25 M/ L 4.63-6.08 L (test code = 761) HEMOGLOBIN (BEAKER) (test code = 7.4 GM/DL 13.7-17.5 L 410) HEMATOCRIT (BEAKER) (test code = 23.1 % 40.1-51.0 L 411) MEAN CORPUSCULAR VOLUME (BEAKER) 102.7 fL 79.0-92.2 H (test code = 753) MEAN CORPUSCULAR HEMOGLOBIN 32.9 pg 25.7-32.2 H (BEAKER) (test code = 751) MEAN CORPUSCULAR HEMOGLOBIN CONC 32.0 GM/DL 32.3-36.5 L (BEAKER) (test code = 752) RED CELL DISTRIBUTION WIDTH 13.9 % 11.6-14.4 (BEAKER) (test code = 412) PLATELET COUNT (BEAKER) (test 119 K/CU MM 150-450 L code = 756) MEAN PLATELET VOLUME (BEAKER) 10.4 fL 9.4-12.4 (test code = 754) NUCLEATED RED BLOOD CELLS 0 /100 WBC 0-0 (BEAKER) (test code = 413) NEUTROPHILS RELATIVE PERCENT 59 % (BEAKER) (test code = 429) LYMPHOCYTES RELATIVE PERCENT 21 % (BEAKER) (test code = 430) MONOCYTES RELATIVE PERCENT 14 % (BEAKER) (test code = 431) EOSINOPHILS RELATIVE PERCENT 5 % (BEAKER) (test code = 432) BASOPHILS RELATIVE PERCENT 1 % (BEAKER) (test code = 437) NEUTROPHILS ABSOLUTE COUNT 2.03 K/ L 1.78-5.38 (BEAKER) (test code = 670) LYMPHOCYTES ABSOLUTE COUNT 0.73 K/ L 1.32-3.57 L (BEAKER) (test code = 414) MONOCYTES ABSOLUTE COUNT (BEAKER) 0.47 K/ L 0.30-0.82 (test code = 415) EOSINOPHILS ABSOLUTE COUNT 0.17 K/ L 0.04-0.54 (BEAKER) (test code = 416) BASOPHILS ABSOLUTE COUNT (BEAKER) 0.02 K/ L 0.01-0.08 (test code = 417) IMMATURE GRANULOCYTES-RELATIVE 0 % 0-1 PERCENT (BEAKER) (test code = 2801) PROTHROMBIN [id number] 05:57:00 Test Item Value Reference Range Interpretation Comments PROTIME (BEAKER) (test code = 19.3 seconds 11.7-14.7 H 759) INR (BEAKER) (test code = 370) 1.6 <=5.9 RECOMMENDED COUMADIN/WARFARIN INR THERAPY RANGESSTANDARD DOSE: 2.0 - 3.0 Includes: PROPHYLAXIS forvenous thrombosis, systemic embolization; TREATMENT for venous thrombosis and/or pulmonary embolus.HIGH RISK: Target INR is 2.5-3.5 for patients with mechanical heart valves.While on warfarin.POCT-GLUCOSE METER 2018-03-12 21:28:00 Test Item Value Reference Range Interpretation Comments POC-GLUCOSE METER 138 mg/dL 70-110 H TESTED AT [facility] 67 ([facility]) (test code = [place] 1538) [id number] POCT-GLUCOSE [id number] 17:49:00 Test Item Value Reference Range Interpretation Comments POC-GLUCOSE METER 137 mg/dL 70-110 H TESTED AT [facility] 6720 ([facility]) (test code = [facility] [place] 1538) [id number] CBC W/PLT COUNT & AUTO [id number] 13:23:00 Test Item Value Reference Range Interpretation Comments WHITE BLOOD CELL COUNT (BEAKER) 3.6 K/ L 3.5-10.5 (test code = 775) RED BLOOD CELL COUNT (AKER) 2.39 M/ L 4.63-6.08 L (test code = 761) HEMOGLOBIN (BEAKER) (test code = 7.9 GM/DL 13.7-17.5 L 410) HEMATOCRIT (BEAKER) (test code = 24.9 % 40.1-51.0 L 411) MEAN CORPUSCULAR VOLUME (BEAKER) 104.2 fL 79.0-92.2 H (test code = 753) MEAN CORPUSCULAR HEMOGLOBIN 33.1 pg 25.7-32.2 H (BEAKER) (test code = 751) MEAN CORPUSCULAR HEMOGLOBIN CONC 31.7 GM/DL 32.3-36.5 L (BEAKER) (test code = 752) RED CELL DISTRIBUTION WIDTH 13.8 % 11.6-14.4 (BEAKER) (test code = 412) PLATELET COUNT (BEAKER) (test 135 K/CU MM 150-450 L code = 756) MEAN PLATELET VOLUME (BEAKER) 11.0 fL 9.4-12.4 (test code = 754) NUCLEATED RED BLOOD CELLS 0 /100 WBC 0-0 (BEAKER) (test code = 413) (CELLAVISION MANUAL DIFF)2018-03-12 13:23:00 Test Item Value Reference Range Interpretation Comments NEUTROPHILS - REL 60 % (CELLAVISION)(BEAKER) (test code = 2816) LYMPHOCYTES - REL 21 % (CELLAVISION)(BEAKER) (test code = 2817) MONOCYTES - REL 9 % (CELLAVISION)(BEAKER) (test code = 2818) EOSINOPHILS - REL 5 % (CELLAVISION)(BEAKER) (test code = 2819) BASOPHILS - REL 1 % (CELLAVISION)(BEAKER) (test code = 2820) BANDS - REL (CELLAVISION)(BEAKER) 2 % 0-10 (test code = 2826) ATYPICAL LYMPHOCYTES - REL 2 % 0-0 H (CELLAVISION)(BEAKER) (test code = 2829) NEUTROPHILS - ABS 2.16 K/ul 1.78-5.38 (CELLAVISION)(BEAKER) (test code = 2830) LYMPHOCYTES - ABS 0.76 K/ul 1.32-3.57 L (CELLAVISION)(BEAKER) (test code = 2831) MONOCYTES - ABS 0.32 K/uL 0.30-0.82 (CELLAVISION)(BEAKER) (test code = 2832) EOSINOPHILS - ABS 0.18 K/uL 0.04-0.54 (CELLAVISION)(BEAKER) (test code = 2834) BASOPHILS - ABS 0.04 K/uL 0.01-0.08 (CELLAVISION)(BEAKER) (test code = 2835) BANDS - ABS (CELLAVISION)(BEAKER) 0.07 K/uL 0.00-0.80 (test code = 2840) ATYPICAL LYMPHOCYTES - ABS 0.07 K/uL 0.00-0.00 H (CELLAVISION)(BEAKER) (test code = 2858) TOTAL COUNTED (BEAKER) (test code 100 = 1351) WBC MORPHOLOGY (BEAKER) (test Normal code = 487) PLT MORPHOLOGY (BEAKER) (test Normal code = 486) POIKILOCYTES (BEAKER) (test code 2+ moderate = 966) ARTIFACT (CELLAVISION)(BEAKER) Present (test code = 3432) PLATELET CONCENTRATION Decreased (CELLAVISION)(BEAKER) (test code = 3438) Received comment: User comments: Slide comments:POCT-GLUCOSE [id number] 11:08:00 Test Item Value Reference Range Interpretation Comments POC-GLUCOSE METER 184 mg/dL 70-110 H TESTED AT [facility] 6720 (BEAKER) (test code = TEX [employer] [place] 1538) [id number] BASIC METABOLIC [id number] 06:30:00 Test Item Value Reference Range Interpretation Comments SODIUM (BEAKER) 139 meq/L 136-145 (test code = 381) POTASSIUM (BEAKER) 3.8 meq/L 3.5-5.1 (test code = 379) CHLORIDE (BEAKER) 105 meq/L 98-107 (test code = 382) CO2 (BEAKER) (test 26 meq/L 22-29 code = 355) BLOOD UREA NITROGEN 27 mg/dL 7-21 H (BEAKER) (test code = 354) CREATININE (BEAKER) 1.25 mg/dL 0.57-1.25 (test code = 358) GLUCOSE RANDOM 98 mg/dL 70-105 (BEAKER) (test code = 652) CALCIUM (BEAKER) 9.0 mg/dL 8.4-10.2 (test code = 697) EGFR (BEAKER) (test 55 mL/min/1.73 ESTIMA VIKKI GFR IS code = 1092) sq m NOT ACCURATE CREATININE CLEARANCE IN PREDICTING GLOMERULAR FILTRATION RATE . ESTIMATED GFR I S NOT APPLICABLE FOR DIALYSIS PATIEN TS. PROTHROMBIN [id number] 06:25:00 Test Item Value Reference Range Interpretation Comments PROTIME ([facility]) (test code = 16.7 seconds 11.7-14.7 H 759) INR ([facility]) (test code = 370) 1.3 <=5.9 RECOMMENDED COUMADIN/WARFARIN INR THERAPY RANGESSTANDARD DOSE: 2.0 - 3.0 Includes: PROPHYLAXIS forvenous thrombosis, systemic embolization; TREATMENT for venous thrombosis and/or pulmonary embolus.HIGH RISK: Target INR is 2.5-3.5 for patients with mechanical heart valves.While on warfarin.POCT-GLUCOSE METER 2018-03-11 21:14:00 Test Item Value Reference Range Interpretation Comments POC-GLUCOSE METER 129 mg/dL 70-110 H TESTED AT [place] [address] ([facility]) (test code = [facility] 1538) [id number] POCT-GLUCOSE [id number] 17:06:00 Test Item Value Reference Range Interpretation Comments POC-GLUCOSE METER 155 mg/dL 70-110 H TESTED AT [place] [address] ([facility]) (test code = [facility] 1538) [address] CBC W/PLT COUNT & AUTO [id number] 13:39:00 Test Item Value Reference Range Interpretation Comments WHITE BLOOD CELL COUNT ([facility]) 3.9 K/ L 3.5-10.5 (test code = 775) RED BLOOD CELL COUNT ([facility]) 2.27 M/ L 4.63-6.08 L (test code = 761) HEMOGLOBIN (AKER) (test code = 7.5 GM/DL 13.7-17.5 L 410) HEMATOCRIT ([facility]) (test code = 23.8 % 40.1-51.0 L 411) MEAN CORPUSCULAR VOLUME (AKER) 104.8 fL 79.0-92.2 H (test code = 753) MEAN CORPUSCULAR HEMOGLOBIN 33.0 pg 25.7-32.2 H (AKER) (test code = 751) MEAN CORPUSCULAR HEMOGLOBIN CONC 31.5 GM/DL 32.3-36.5 L (BEAKER) (test code = 752) RED CELL DISTRIBUTION WIDTH 13.9 % 11.6-14.4 (BEAKER) (test code = 412) PLATELET COUNT (BEAKER) (test 116 K/CU MM 150-450 L code = 756) MEAN PLATELET VOLUME (BEAKER) 11.2 fL 9.4-12.4 (test code = 754) NUCLEATED RED BLOOD CELLS 0 /100 WBC 0-0 (BEAKER) (test code = 413) (CELLAVISION MANUAL DIFF)2018-03-11 13:39:00 Test Item Value Reference Range Interpretation Comments NEUTROPHILS - REL 64 % (CELLAVISION)(BEAKER) (test code = 2816) LYMPHOCYTES - REL 16 % (CELLAVISION)(BEAKER) (test code = 2817) MONOCYTES - REL 7 % (CELLAVISION)(BEAKER) (test code = 2818) EOSINOPHILS - REL 4 % (CELLAVISION)(BEAKER) (test code = 2819) BASOPHILS - REL 4 % (CELLAVISION)(BEAKER) (test code = 2820) BANDS - REL (CELLAVISION)(BEAKER) 3 % 0-10 (test code = 2826) ATYPICAL LYMPHOCYTES - REL 2 % 0-0 H (CELLAVISION)(BEAKER) (test code = 2829) NEUTROPHILS - ABS 2.50 K/ul 1.78-5.38 (CELLAVISION)(BEAKER) (test code = 2830) LYMPHOCYTES - ABS 0.62 K/ul 1.32-3.57 L (CELLAVISION)(BEAKER) (test code = 2831) MONOCYTES - ABS 0.27 K/uL 0.30-0.82 L (CELLAVISION)(BEAKER) (test code = 2832) EOSINOPHILS - ABS 0.16 K/uL 0.04-0.54 (CELLAVISION)(BEAKER) (test code = 2834) BASOPHILS - ABS 0.16 K/uL 0.01-0.08 H (CELLAVISION)(BEAKER) (test code = 2835) BANDS - ABS (CELLAVISION)(BEAKER) 0.12 K/uL 0.00-0.80 (test code = 2840) ATYPICAL LYMPHOCYTES - ABS 0.08 K/uL 0.00-0.00 H (CELLAVISION)(BEAKER) (test code = 2858) TOTAL COUNTED (BEAKER) (test code 100 = 1351) MANUAL NRBC PER 100 CELLS 2 /100 WBC 0-0 H (BEAKER) (test code = 1353) SMUDGE CELLS (BEAKER) (test code Present = 1371) GIANT PLATELETS (BEAKER) (test Present code = 313) POIKILOCYTES (BEAKER) (test code 2+ moderate = 966) SCHISTOCYTES (BEAKER) (test code 1+ few = 765) OVALOCYTES (BEAKER) (test code = 1+ few 477) MATTHEW CELLS (BEAKER) (test code = 1+ few 474) PLATELET CONCENTRATION Adequate (CELLAVISION)(BEAKER) (test code = 3438) Received comment: User comments: Slide comments:POCT-GLUCOSE [id number] 11:37:00 Test Item Value Reference Range Interpretation Comments POC-GLUCOSE METER 140 mg/dL 70-110 H TESTED AT [facility] 67 (BEAKER) (test code = [facility] 1538) [address] POCT-GLUCOSE [id number] 07:55:00 Test Item Value Reference Range Interpretation Comments POC-GLUCOSE METER 139 mg/dL 70-110 H TEST[facility] AT [place] [address] [facility] (test code = [facility] 1538) [address] BASIC METABOLIC [id number] 05:47:00 Test Item Value Reference Range Interpretation Comments SODIUM (BEAKER) 138 meq/L 136-145 (test code = 381) POTASSIUM (BEAKER) 3.7 meq/L 3.5-5.1 (test code = 379) CHLORIDE (BEAKER) 105 meq/L 98-107 (test code = 382) CO2 (BEAKER) (test 27 meq/L 22-29 code = 355) BLOOD UREA NITROGEN 32 mg/dL 7-21 H (BEAKER) (test code = 354) CREATININE (BEAKER) 1.14 mg/dL 0.57-1.25 (test code = 358) GLUCOSE RANDOM 109 mg/dL 70-105 H (BEAKER) (test code = 652) CALCIUM (BEAKER) 8.7 mg/dL 8.4-10.2 (test code = 697) EGFR ([facility]) (test 61 mL/min/1.73 ESTIMA VIKKI GFR IS code = 1092) sq m NOT ACCURATE CREATININE CLEARANCE IN PREDICTING GLOMERULAR FILTRATION RATE . ESTIMATED GFR I S NOT APPLICABLE FOR DIALYSIS PATIEN TS. PROTHROMBIN [id number] 05:28:00 Test Item Value Reference Range Interpretation Comments PROTIME ([facility]) (test code = 15.7 seconds 11.7-14.7 H 759) INR ([facility]) (test code = 370) 1.2 <=5.9 RECOMMENDED COUMADIN/WARFARIN INR THERAPY RANGESSTANDARD DOSE: 2.0 - 3.0 Includes: PROPHYLAXIS forvenous thrombosis, systemic embolization; TREATMENT for venous thrombosis and/or pulmonary embolus.HIGH RISK: Target INR is 2.5-3.5 for patients with mechanical heart valves.While on warfarin.POCT-GLUCOSE METER 2018-03-10 20:37:00 Test Item Value Reference Range Interpretation Comments POC-GLUCOSE METER 146 mg/dL 70-110 H TESTED AT [place] [address] ([facility]) [facility] 1538) [id number] POCT-GLUCOSE [id number] 17:28:00 Test Item Value Reference Range Interpretation Comments POC-GLUCOSE METER 156 mg/dL 70-110 H TESTED AT [place] [address] ([facility]) (test code = [facility] [place] [facility] 1538) [id number] CBC W/PLT COUNT & AUTO [id number] 13:53:00 Test Item Value Reference Range Interpretation Comments WHITE BLOOD CELL COUNT ([facility]) 4.1 K/ L 3.5-10.5 (test code = 775) RED BLOOD CELL COUNT ([facility]) 2.37 M/ L 4.63-6.08 L (test code = 761) HEMOGLOBIN ([facility]) (test code = 7.8 GM/DL 13.7-17.5 L 410) HEMATOCRIT ([facility]) (test code = 24.6 % 40.1-51.0 L 411) MEAN CORPUSCULAR VOLUME ([facility]) 103.8 fL 79.0-92.2 H (test code = 753) MEAN CORPUSCULAR HEMOGLOBIN 32.9 pg 25.7-32.2 H ([facility]) (test code = 751) MEAN CORPUSCULAR HEMOGLOBIN CONC 31.7 GM/DL 32.3-36.5 L (BEAKER) (test code = 752) RED CELL DISTRIBUTION WIDTH 14.2 % 11.6-14.4 (BEAKER) (test code = 412) PLATELET COUNT (BEAKER) (test 123 K/CU MM 150-450 L code = 756) MEAN PLATELET VOLUME (BEAKER) 11.1 fL 9.4-12.4 (test code = 754) NUCLEATED RED BLOOD CELLS 0 /100 WBC 0-0 (BEAKER) (test code = 413) (CELLAVISION MANUAL DIFF)2018-03-10 13:53:00 Test Item Value Reference Range Interpretation Comments NEUTROPHILS - REL 70 % (CELLAVISION)(BEAKER) (test code = 2816) LYMPHOCYTES - REL 19 % (CELLAVISION)(BEAKER) (test code = 2817) MONOCYTES - REL 8 % (CELLAVISION)(BEAKER) (test code = 2818) BANDS - REL (CELLAVISION)(BEAKER) 3 % 0-10 (test code = 2826) NEUTROPHILS - ABS 2.87 K/ul 1.78-5.38 (CELLAVISION)(BEAKER) (test code = 2830) LYMPHOCYTES - ABS 0.78 K/ul 1.32-3.57 L (CELLAVISION)(BEAKER) (test code = 2831) MONOCYTES - ABS 0.33 K/uL 0.30-0.82 (CELLAVISION)(BEAKER) (test code = 2832) BANDS - ABS (CELLAVISION)(BEAKER) 0.12 K/uL 0.00-0.80 (test code = 2840) TOTAL COUNTED (BEAKER) (test code = 100 1351) SMUDGE CELLS (BEAKER) (test code = Present 1371) GIANT PLATELETS (BEAKER) (test code Present = 313) ANISOCYTOSIS (BEAKER) (test code = 1+ few 961) MICROCYTES (BEAKER) (test code = 1+ few 965) POIKILOCYTES (BEAKER) (test code = 1+ few 966) SCHISTOCYTES (BEAKER) (test code = 1+ few 765) PLATELET CONCENTRATION Adequate (CELLAVISION)(BEAKER) (test code = 3438) Received comment: User comments: Slide comments:POCT-GLUCOSE [id number] 12:04:00 Test Item Value Reference Range Interpretation Comments POC-GLUCOSE METER 182 mg/dL 70-110 H TESTED AT [facility] 6720 (BEAKER) (test code = [facility] 1538) [id number] POCT-GLUCOSE [id number] 08:09:00 Test Item Value Reference Range Interpretation Comments POC-GLUCOSE METER 111 mg/dL 70-110 H TESTED AT [facility] 6720 (BEAKER) (test code = [facility] 1538) [address] BASIC METABOLIC [id number] 07:02:00 Test Item Value Reference Range Interpretation Comments SODIUM (BEAKER) 140 meq/L 136-145 (test code = 381) POTASSIUM (BEAKER) 4.1 meq/L 3.5-5.1 (test code = 379) CHLORIDE (BEAKER) 106 meq/L 98-107 (test code = 382) CO2 (BEAKER) (test 28 meq/L 22-29 code = 355) BLOOD UREA NITROGEN 31 mg/dL 7-21 H (BEAKER) (test code = 354) CREATININE (BEAKER) 1.14 mg/dL 0.57-1.25 (test code = 358) GLUCOSE RANDOM 101 mg/dL 70-105 (BEAKER) (test code = 652) CALCIUM (BEAKER) 8.8 mg/dL 8.4-10.2 (test code = 697) EGFR (BEAKER) (test 61 mL/min/1.73 ESTIMA VIKKI GFR IS code = 1092) sq m NOT ACCURATE CREATININE CLEARANCE IN PREDICTING GLOMERULAR FILTRATION RATE . ESTIMATED GFR I S NOT APPLICABLE FOR DIALYSIS PATIEN TS. B-TYPE NATRIURETIC FACTOR (BNP)2018-03-10 06:49:00 Test Item Value Reference Range Interpretation Comments B-TYPE NATRIURETIC PEPTIDE (BEAKER) 132 pg/mL 0-100 H (test code = 700) PROTHROMBIN [id number] 06:39:00 Test Item Value Reference Range Interpretation Comments PROTIME (BEAKER) (test code = 15.3 seconds 11.7-14.7 H 759) INR (BEAKER) (test code = 370) 1.2 <=5.9 RECOMMENDED COUMADIN/WARFARIN INR THERAPY RANGESSTANDARD DOSE: 2.0 - 3.0 Includes: PROPHYLAXIS forvenous thrombosis, systemic embolization; TREATMENT for venous thrombosis and/or pulmonary embolus.HIGH RISK: Target INR is 2.5-3.5 for patients with mechanical heart valves.While on warfarin.POCT-GLUCOSE METER 2018-03-09 22:04:00 Test Item Value Reference Range Interpretation Comments POC-GLUCOSE METER 162 mg/dL 70-110 H TESTED AT [facility] 67 [facility] (test code = [facility] [place] [facility] 1538) [id number] POCT-GLUCOSE [id number] 18:15:00 Test Item Value Reference Range Interpretation Comments POC-GLUCOSE METER 127 mg/dL 70-110 H TESTED AT [place] [address] ([facility]) (test code = [facility] 1538) [address] BASIC METABOLIC [id number] 08:18:00 Test Item Value Reference Range Interpretation Comments SODIUM (BEAKER) 144 meq/L 136-145 (test code = 381) POTASSIUM (BEAKER) 4.1 meq/L 3.5-5.1 (test code = 379) CHLORIDE (BEAKER) 112 meq/L 98-107 H (test code = 382) CO2 (BEAKER) (test 27 meq/L 22-29 code = 355) BLOOD UREA NITROGEN 30 mg/dL 7-21 H (BEAKER) (test code = 354) CREATININE (BEAKER) 1.02 mg/dL 0.57-1.25 (test code = 358) GLUCOSE RANDOM 110 mg/dL 70-105 H (BEAKER) (test code = 652) CALCIUM (BEAKER) 8.4 mg/dL 8.4-10.2 (test code = 697) EGFR (BEAKER) (test 69 mL/min/1.73 ESTIMA VIKKI GFR IS code = 1092) sq m NOT ACCURATE CREATININE CLEARANCE IN PREDICTING GLOMERULAR FILTRATION RATE . ESTIMATED GFR I S NOT APPLICABLE FOR DIALYSIS PATIEN TS. [id number] 08:18:00 Test Item Value Reference Range Interpretation Comments MAGNESIUM (BEAKER) (test code = 2.2 mg/dL 1.6-2.6 627) CBC (HEMOGRAM ONLY)2018-03-09 08:03:00 Test Item Value Reference Range Interpretation Comments WHITE BLOOD CELL COUNT (BEAKER) 4.3 K/ L 3.5-10.5 (test code = 775) RED BLOOD CELL COUNT (BEAKER) 2.36 M/ L 4.63-6.08 L (test code = 761) HEMOGLOBIN (BEAKER) (test code = 7.9 GM/DL 13.7-17.5 L 410) HEMATOCRIT (BEAKER) (test code = 24.9 % 40.1-51.0 L 411) MEAN CORPUSCULAR VOLUME (BEAKER) 105.5 fL 79.0-92.2 H (test code = 753) MEAN CORPUSCULAR HEMOGLOBIN 33.5 pg 25.7-32.2 H (BEAKER) (test code = 751) MEAN CORPUSCULAR HEMOGLOBIN CONC 31.7 GM/DL 32.3-36.5 L (BEAKER) (test code = 752) RED CELL DISTRIBUTION WIDTH 14.3 % 11.6-14.4 (BEAKER) (test code = 412) PLATELET COUNT (BEAKER) (test 113 K/CU MM 150-450 L code = 756) MEAN PLATELET VOLUME (BEAKER) 11.4 fL 9.4-12.4 (test code = 754) NUCLEATED RED BLOOD CELLS 0 /100 WBC 0-0 (BEAKER) (test code = 413) POCT-GLUCOSE [id number] 05:58:00 Test Item Value Reference Range Interpretation Comments POC-GLUCOSE METER 153 mg/dL 70-110 H TESTED AT [place] [address] ([facility]) [facility] 1538) [address] POCT-GLUCOSE [id number] 23:35:00 Test Item Value Reference Range Interpretation Comments POC-GLUCOSE METER 170 mg/dL 70-110 H TESTED AT [place] [address] ([facility]) ([facility] 1538) [address] POCT-GLUCOSE [id number] 17:28:00 Test Item Value Reference Range Interpretation Comments POC-GLUCOSE METER 155 mg/dL 70-110 H TESTED AT [place] [address] ([facility]) (test code = [facility] [place] [facility] 1538) [address] HEMOGLOBIN AND [id number] 17:16:00 Test Item Value Reference Range Interpretation Comments HEMOGLOBIN (BEAKER) (test code = 7.9 GM/DL 13.7-17.5 L 410) HEMATOCRIT (BEAKER) (test code = 24.9 % 40.1-51.0 L 411) BLOOD [id number] 13:01:00 Test Item Value Reference Range Interpretation Comments CULTURE (BEAKER) (test No growth in 5 days code = 1095) BLOOD [id number] 13:00:00 Test Item Value Reference Range Interpretation Comments CULTURE (BEAKER) (test No growth in 5 days code = 1095) POCT-GLUCOSE [id number] 11:55:00 Test Item Value Reference Range Interpretation Comments POC-GLUCOSE METER 157 mg/dL 70-110 H TESTED AT [place] [address] ([facility]) (test code = [facility] [place] [facility] 1538) [address] ANTI-MITOCHONDRIAL AB, REFLEX TO [id number] 10:22:00 Test Item Value Reference Range Interpretation Comments SCAN RESULT (test code = 7186851) POCT-GLUCOSE [id number] 05:46:00 Test Item Value Reference Range Interpretation Comments POC-GLUCOSE METER 161 mg/dL 70-110 H TESTED AT [place] [address] ([facility]) (test code = [facility] 1538) [address] HEPATIC FUNCTION [id number] 04:08:00 Test Item Value Reference Range Interpretation Comments TOTAL PROTEIN (BEAKER) (test code = 5.6 gm/dL 6.0-8.3 L 770) ALBUMIN (BEAKER) (test code = 1145) 3.0 g/dL 3.5-5.0 L BILIRUBIN TOTAL (BEAKER) (test code 1.7 mg/dL 0.2-1.2 H = 377) BILIRUBIN DIRECT (BEAKER) (test 0.7 mg/dL 0.1-0.5 H code = 706) ALKALINE PHOSPHATASE (BEAKER) (test 117 U/L 40-150 code = 346) AST (SGOT) (BEAKER) (test code = 52 U/L 5-34 H 353) ALT (SGPT) (BEAKER) (test code = 30 U/L 6-55 347) [id number] 04:03:00 Test Item Value Reference Range Interpretation Comments PHOSPHORUS (BEAKER) (test code = 2.4 mg/dL 2.3-4.7 604) Check Serum Phosphorus level 4 hours after IV phosphorus replacement or 8 hours after PO replacementcompleted.[id number] 04:03:00 Test Item Value Reference Range Interpretation Comments MAGNESIUM (BEAKER) (test code = 2.5 mg/dL 1.6-2.6 627) Check Serum Phosphorus level 4 hours after IV phosphorus replacement or 8 hours after PO replacementcompleted.BASIC METABOLIC [id number] 04:03:00 Test Item Value Reference Range Interpretation Comments SODIUM (BEAKER) 145 meq/L 136-145 (test code = 381) POTASSIUM (BEAKER) 4.2 meq/L 3.5-5.1 (test code = 379) CHLORIDE (BEAKER) 116 meq/L 98-107 H (test code = 382) CO2 (BEAKER) (test 24 meq/L 22-29 code = 355) BLOOD UREA NITROGEN 24 mg/dL 7-21 H (BEAKER) (test code = 354) CREATININE (BEAKER) 1.01 mg/dL 0.57-1.25 (test code = 358) GLUCOSE RANDOM 138 mg/dL 70-105 H (BEAKER) (test code = 652) CALCIUM (BEAKER) 8.7 mg/dL 8.4-10.2 (test code = 697) EGFR (BEAKER) (test 70 mL/min/1.73 ESTIMA VIKKI GFR IS code = 1092) sq m NOT ACCURATE CREATININE CLEARANCE IN PREDICTING GLOMERULAR FILTRATION RATE . ESTIMATED GFR I S NOT APPLICABLE FOR DIALYSIS PATIEN TS. Check Serum Phosphorus level 4 hours after IV phosphorus replacement or 8 hours after PO replacementcompleted.CBC W/PLT COUNT & AUTO [id number] 03:47:00 Test Item Value Reference Range Interpretation Comments WHITE BLOOD CELL COUNT (BEAKER) 4.5 K/ L 3.5-10.5 (test code = 775) RED BLOOD CELL COUNT (BEAKER) 2.21 M/ L 4.63-6.08 L (test code = 761) HEMOGLOBIN (BEAKER) (test code = 7.2 GM/DL 13.7-17.5 L 410) HEMATOCRIT (BEAKER) (test code = 23.5 % 40.1-51.0 L 411) MEAN CORPUSCULAR VOLUME (BEAKER) 106.3 fL 79.0-92.2 H (test code = 753) MEAN CORPUSCULAR HEMOGLOBIN 32.6 pg 25.7-32.2 H (BEAKER) (test code = 751) MEAN CORPUSCULAR HEMOGLOBIN CONC 30.6 GM/DL 32.3-36.5 L (BEAKER) (test code = 752) RED CELL DISTRIBUTION WIDTH 14.7 % 11.6-14.4 H (BEAKER) (test code = 412) PLATELET COUNT (BEAKER) (test code 94 K/CU MM 150-450 L = 756) MEAN PLATELET VOLUME (BEAKER) 11.1 fL 9.4-12.4 (test code = 754) NUCLEATED RED BLOOD CELLS (BEAKER) 0 /100 WBC 0-0 (test code = 413) NEUTROPHILS RELATIVE PERCENT 62 % (BEAKER) (test code = 429) LYMPHOCYTES RELATIVE PERCENT 18 % (BEAKER) (test code = 430) MONOCYTES RELATIVE PERCENT 12 % (BEAKER) (test code = 431) EOSINOPHILS RELATIVE PERCENT 8 % (BEAKER) (test code = 432) BASOPHILS RELATIVE PERCENT 0 % (BEAKER) (test code = 437) NEUTROPHILS ABSOLUTE COUNT 2.80 K/ L 1.78-5.38 (BEAKER) (test code = 670) LYMPHOCYTES ABSOLUTE COUNT 0.81 K/ L 1.32-3.57 L (BEAKER) (test code = 414) MONOCYTES ABSOLUTE COUNT (BEAKER) 0.52 K/ L 0.30-0.82 (test code = 415) EOSINOPHILS ABSOLUTE COUNT 0.37 K/ L 0.04-0.54 (BEAKER) (test code = 416) BASOPHILS ABSOLUTE COUNT (BEAKER) 0.02 K/ L 0.01-0.08 (test code = 417) IMMATURE GRANULOCYTES-RELATIVE 0 % 0-1 PERCENT (BEAKER) (test code = 2801) HEMOGLOBIN AND [id number] 03:46:00 Test Item Value Reference Range Interpretation Comments HEMOGLOBIN (BEAKER) (test code = 7.7 GM/DL 13.7-17.5 L 410) HEMATOCRIT (BEAKER) (test code = 24.8 % 40.1-51.0 L 411) POCT-GLUCOSE [id number] 01:04:00 Test Item Value Reference Range Interpretation Comments POC-GLUCOSE METER 150 mg/dL 70-110 H TESTED AT [facility] 6720 (BEAKER) (test code = [place] 1538) [address] SPUTUM CULTURE + GRAM [id number] 19:57:00 Test Item Value Reference Range Interpretation Comments CULTURE (BEAKER) No growth (test code = 1095) GRAM STAIN RESULT 4+ WBCs (BEAKER) (test code = 1123) GRAM STAIN RESULT 0-5 epithelial cells (BEAKER) (test code = 64630) GRAM STAIN RESULT <1+ gram positive cocci (BEAKER) (test code = in pairs 91416) HEMOGLOBIN AND [id number] 16:09:00 Test Item Value Reference Range Interpretation Comments HEMOGLOBIN (BEAKER) (test code = 7.8 GM/DL 13.7-17.5 L 410) HEMATOCRIT (BEAKER) (test code = 25.1 % 40.1-51.0 L 411) POCT-GLUCOSE [id number] 16:06:00 Test Item Value Reference Range Interpretation Comments POC-GLUCOSE METER 143 mg/dL 70-110 H TESTED AT [facility] 6720 ([facility]) (test code = TEX [facility] 1538) [address] POCT-GLUCOSE [id number] 11:55:00 Test Item Value Reference Range Interpretation Comments POC-GLUCOSE METER 148 mg/dL 70-110 H TESTED AT [facility] 6720 ([facility]) (test code = TEX [facility] 1538) [address] RAD, ABDOMEN/KUB, 1 VIEW [id number] 10:26:00Reason for exam:->Check position of NGTFINAL REPORT [...] MDReport Verified Date/Time: 03/07/2018 10:26:54 Reading Location: [facility] [address] [place] [address] Reading Room HEPATIC FUNCTION [id number] 09:14:00 Test Item Value Reference Range Interpretation Comments TOTAL PROTEIN (BEAKER) (test code = 5.5 gm/dL 6.0-8.3 L 770) ALBUMIN (BEAKER) (test code = 1145) 2.9 g/dL 3.5-5.0 L BILIRUBIN TOTAL (BEAKER) (test code 1.8 mg/dL 0.2-1.2 H = 377) BILIRUBIN DIRECT (BEAKER) (test 0.7 mg/dL 0.1-0.5 H code = 706) ALKALINE PHOSPHATASE (BEAKER) (test 95 U/L 40-150 code = 346) AST (SGOT) (BEAKER) (test code = 25 U/L 5-34 353) ALT (SGPT) (BEAKER) (test code = 15 U/L 6-55 347) CBC W/PLT COUNT & AUTO [id number] 06:53:00 Test Item Value Reference Range Interpretation Comments WHITE BLOOD CELL COUNT 4.6 K/ L 3.5-10.5 (BEAKER) (test code = 775) RED BLOOD CELL COUNT 2.46 M/ L 4.63-6.08 L (BEAKER) (test code = 761) HEMOGLOBIN (BEAKER) 8.0 GM/DL 13.7-17.5 L (test code = 410) HEMATOCRIT (BEAKER) 26.1 % 40.1-51.0 L (test code = 411) MEAN CORPUSCULAR 106.1 fL 79.0-92.2 H Discordant result VOLUME (BEAKER) (test compar ed to previous code = 753) result; clinica l correlation req uired. MEAN CORPUSCULAR 32.5 pg 25.7-32.2 H HEMOGLOBIN (BEAKER) (test code = 751) MEAN CORPUSCULAR 30.7 GM/DL 32.3-36.5 L HEMOGLOBIN CONC (BEAKER) (test code = 752) RED CELL DISTRIBUTION 15.1 % 11.6-14.4 H WIDTH (BEAKER) (test code = 412) PLATELET COUNT 96 K/CU MM 150-450 L (BEAKER) (test code = 756) MEAN PLATELET VOLUME 10.6 fL 9.4-12.4 (BEAKER) (test code = 754) NUCLEATED RED BLOOD 0 /100 WBC 0-0 CELLS (BEAKER) (test code = 413) NEUTROPHILS RELATIVE 67 % PERCENT (BEAKER) (test code = 429) LYMPHOCYTES RELATIVE 14 % PERCENT (BEAKER) (test code = 430) MONOCYTES RELATIVE 12 % PERCENT (BEAKER) (test code = 431) EOSINOPHILS RELATIVE 6 % PERCENT (BEAKER) (test code = 432) BASOPHILS RELATIVE 0 % PERCENT (BEAKER) (test code = 437) NEUTROPHILS ABSOLUTE 3.08 K/ L 1.78-5.38 COUNT (BEAKER) (test code = 670) LYMPHOCYTES ABSOLUTE 0.66 K/ L 1.32-3.57 L COUNT (BEAKER) (test code = 414) MONOCYTES ABSOLUTE 0.55 K/ L 0.30-0.82 COUNT (BEAKER) (test code = 415) EOSINOPHILS ABSOLUTE 0.28 K/ L 0.04-0.54 COUNT (BEAKER) (test code = 416) BASOPHILS ABSOLUTE 0.01 K/ L 0.01-0.08 COUNT (BEAKER) (test code = 417) IMMATURE 0 % 0-1 GRANULOCYTES-RELATIVE PERCENT (BEAKER) (test code = 2801) POCT-GLUCOSE [id number] 06:23:00 Test Item Value Reference Range Interpretation Comments POC-GLUCOSE METER 125 mg/dL 70-110 H TESTED AT [facility] 6720 (BEAKER) (test code = [place] [facility] [place] 1538) [address] [id number] 05:53:00 Test Item Value Reference Range Interpretation Comments PHOSPHORUS (BEAKER) (test code = 2.7 mg/dL 2.3-4.7 604) Check Serum Phosphorus level 4 hours after IV phosphorus replacement or 8 hours after PO replacementcompleted.[id number] 05:53:00 Test Item Value Reference Range Interpretation Comments MAGNESIUM (BEAKER) (test code = 2.6 mg/dL 1.6-2.6 627) Check Serum Phosphorus level 4 hours after IV phosphorus replacement or 8 hours after PO replacementcompleted.BASIC METABOLIC [id number] 05:53:00 Test Item Value Reference Range Interpretation Comments SODIUM (BEAKER) 146 meq/L 136-145 H (test code = 381) POTASSIUM (BEAKER) 4.2 meq/L 3.5-5.1 (test code = 379) CHLORIDE (BEAKER) 119 meq/L 98-107 H (test code = 382) CO2 (BEAKER) (test 23 meq/L 22-29 code = 355) BLOOD UREA NITROGEN 20 mg/dL 7-21 (BEAKER) (test code = 354) CREATININE (BEAKER) 0.93 mg/dL 0.57-1.25 (test code = 358) GLUCOSE RANDOM 121 mg/dL 70-105 H (BEAKER) (test code = 652) CALCIUM (BEAKER) 8.6 mg/dL 8.4-10.2 (test code = 697) EGFR (BEAKER) (test 77 mL/min/1.73 ESTIMA VIKKI GFR IS code = 1092) sq m NOT ACCURATE CREATININE CLEARANCE IN PREDICTING GLOMERULAR FILTRATION RATE . ESTIMATED GFR I S NOT APPLICABLE FOR DIALYSIS PATIEN TS. Check Serum Phosphorus level 4 hours after IV phosphorus replacement or 8 hours after PO replacementcompleted.HEMOGLOBIN AND [id number] 05:29:00 Test Item Value Reference Range Interpretation Comments HEMOGLOBIN (BEAKER) (test code = 8.0 GM/DL 13.7-17.5 L 410) HEMATOCRIT (BEAKER) (test code = 26.1 % 40.1-51.0 L 411) HEMOGLOBIN AND [id number] 23:58:00 Test Item Value Reference Range Interpretation Comments HEMOGLOBIN (BEAKER) (test code = 6.8 GM/DL 13.7-17.5 L 410) HEMATOCRIT (BEAKER) (test code = 22.5 % 40.1-51.0 L 411) MRSA [id number] 23:57:00 Test Item Value Reference Range Interpretation Comments CULTURE (BEAKER) (test code No MRSA isolated = 1095) POCT-GLUCOSE [id number] 22:48:00 Test Item Value Reference Range Interpretation Comments POC-GLUCOSE METER 168 mg/dL 70-110 H TESTED AT [facility] 6720 (BEAKER) (test code = [facility] 1538) [address] POCT-GLUCOSE [id number] 18:01:00 Test Item Value Reference Range Interpretation Comments POC-GLUCOSE METER 162 mg/dL 70-110 H TESTED AT [facility] 6720 (BEAKER) (test code = [facility] 1538) [address] HEMOGLOBIN AND [id number] 12:49:00 Test Item Value Reference Range Interpretation Comments HEMOGLOBIN (BEAKER) (test code = 7.4 GM/DL 13.7-17.5 L 410) HEMATOCRIT (BEAKER) (test code = 23.9 % 40.1-51.0 L 411) STOOL CULTURE + SHIGA [id number] 10:14:00 Test Item Value Reference Range Interpretation Comments CULTURE (BEAKER) No Salmonella, Shigella (test code = 1095) or Campylobacter isolated POCT-GLUCOSE [id number] 09:55:00 Test Item Value Reference Range Interpretation Comments POC-GLUCOSE METER 143 mg/dL 70-110 H TESTED AT [facility] 6720 (BEAKER) (test code = [place] [facility] [place] 1538) [address] CBC W/PLT COUNT & AUTO [id number] 07:15:00 Test Item Value Reference Range Interpretation Comments WHITE BLOOD CELL COUNT (BEAKER) 4.5 K/ L 3.5-10.5 (test code = 775) RED BLOOD CELL COUNT (BEAKER) 2.16 M/ L 4.63-6.08 L (test code = 761) HEMOGLOBIN (BEAKER) (test code = 7.1 GM/DL 13.7-17.5 L 410) HEMATOCRIT (BEAKER) (test code = 23.8 % 40.1-51.0 L 411) MEAN CORPUSCULAR VOLUME (BEAKER) 110.2 fL 79.0-92.2 H (test code = 753) MEAN CORPUSCULAR HEMOGLOBIN 32.9 pg 25.7-32.2 H (BEAKER) (test code = 751) MEAN CORPUSCULAR HEMOGLOBIN CONC 29.8 GM/DL 32.3-36.5 L (BEAKER) (test code = 752) RED CELL DISTRIBUTION WIDTH 14.4 % 11.6-14.4 (BEAKER) (test code = 412) PLATELET COUNT (BEAKER) (test code 93 K/CU MM 150-450 L = 756) MEAN PLATELET VOLUME (BEAKER) 10.9 fL 9.4-12.4 (test code = 754) NUCLEATED RED BLOOD CELLS (BEAKER) 0 /100 WBC 0-0 (test code = 413) NEUTROPHILS RELATIVE PERCENT 66 % (BEAKER) (test code = 429) LYMPHOCYTES RELATIVE PERCENT 14 % (BEAKER) (test code = 430) MONOCYTES RELATIVE PERCENT 10 % (BEAKER) (test code = 431) EOSINOPHILS RELATIVE PERCENT 9 % (BEAKER) (test code = 432) BASOPHILS RELATIVE PERCENT 0 % (BEAKER) (test code = 437) NEUTROPHILS ABSOLUTE COUNT 2.99 K/ L 1.78-5.38 (BEAKER) (test code = 670) LYMPHOCYTES ABSOLUTE COUNT 0.64 K/ L 1.32-3.57 L (BEAKER) (test code = 414) MONOCYTES ABSOLUTE COUNT (BEAKER) 0.45 K/ L 0.30-0.82 (test code = 415) EOSINOPHILS ABSOLUTE COUNT 0.42 K/ L 0.04-0.54 (BEAKER) (test code = 416) BASOPHILS ABSOLUTE COUNT (BEAKER) 0.01 K/ L 0.01-0.08 (test code = 417) IMMATURE GRANULOCYTES-RELATIVE 0 % 0-1 PERCENT (BEAKER) (test code = 2801) [id number] 05:47:00 Test Item Value Reference Range Interpretation Comments PHOSPHORUS (BEAKER) (test code = 2.8 mg/dL 2.3-4.7 604) Check Serum Phosphorus level 4 hours after IV phosphorus replacement or 8 hours after PO replacementcompleted.[id number] 05:47:00 Test Item Value Reference Range Interpretation Comments MAGNESIUM (BEAKER) (test code = 2.6 mg/dL 1.6-2.6 627) Check Serum Phosphorus level 4 hours after IV phosphorus replacement or 8 hours after PO replacementcompleted.BASIC METABOLIC [id number] 05:47:00 Test Item Value Reference Range Interpretation Comments SODIUM (BEAKER) 146 meq/L 136-145 H (test code = 381) POTASSIUM (BEAKER) 4.1 meq/L 3.5-5.1 (test code = 379) CHLORIDE (BEAKER) 119 meq/L 98-107 H (test code = 382) CO2 (BEAKER) (test 23 meq/L 22-29 code = 355) BLOOD UREA NITROGEN 21 mg/dL 7-21 (BEAKER) (test code = 354) CREATININE (BEAKER) 0.95 mg/dL 0.57-1.25 (test code = 358) GLUCOSE RANDOM 122 mg/dL 70-105 H (BEAKER) (test code = 652) CALCIUM (BEAKER) 8.3 mg/dL 8.4-10.2 L (test code = 697) EGFR (BEAKER) (test 75 mL/min/1.73 ESTIMA VIKKI GFR IS code = 1092) sq m NOT ACCURATE CREATININE CLEARANCE IN PREDICTING GLOMERULAR FILTRATION RATE . ESTIMATED GFR I S NOT APPLICABLE FOR DIALYSIS PATIEN TS. Check Serum Phosphorus level 4 hours after IV phosphorus replacement or 8 hours after PO replacementcompleted.RAD, CHEST, 1 VIEW, NON [id number] 05:00:00 Reason for exam:->resp failureShould this be performed at the bedside?->YesFINAL REPORT RAD, CHEST, 1 VIEW, NON DEPT INDICATION: resp failure COMPARISON: Prior day's exam FINDINGS: Portable frontal view of the chest. IMPRESSION: Support Lines: Interval extubation. Otherwise unchanged support apparatus. Lungs and pleura: Decreased lung volumes with in creased atelectasis in the mid lungs. Mildly increased pulmonary vascular congestion. No pleural effusion. No pneumothorax.Heart and mediastinum: Stable contours. Stable surgical changes.Additional findings: None. Signed: David Jhaepdave Verified Date/Time: 03/06/2018 05:00:57 Reading Location: [address] Transitional Reading Room POCT-GLUCOSE [id number] 04:50:00 Test Item Value Reference Range Interpretation Comments POC-GLUCOSE METER 133 mg/dL 70-110 H TESTED AT [place] [address] ([facility]) (test code = TEX [facility] 1538) [address] HEMOGLOBIN AND [id number] 23:14:00 Test Item Value Reference Range Interpretation Comments HEMOGLOBIN ([facility]) (test code = 7.1 GM/DL 13.7-17.5 L 410) HEMATOCRIT ([facility]) (test code = 23.5 % 40.1-51.0 L 411) POCT-GLUCOSE [id number] 23:12:00 Test Item Value Reference Range Interpretation Comments POC-GLUCOSE METER 146 mg/dL 70-110 H TESTED AT [place] [address] ([facility]) (test code = [place] [facility] 1538) [address] POCT-GLUCOSE [id number] 22:11:00 Test Item Value Reference Range Interpretation Comments POC-GLUCOSE METER 164 mg/dL 70-110 H TESTED AT [facility] 6720 (BEAKER) (test code = TEX [facility] 1538) [address] HEMOGLOBIN AND [id number] 18:51:00 Test Item Value Reference Range Interpretation Comments HEMOGLOBIN (BEAKER) (test code = 7.3 GM/DL 13.7-17.5 L 410) HEMATOCRIT (BEAKER) (test code = 23.8 % 40.1-51.0 L 411) POCT-GLUCOSE [id number] 17:35:00 Test Item Value Reference Range Interpretation Comments POC-GLUCOSE METER 169 mg/dL 70-110 H TESTED AT [facility] 6720 (BEAKER) (test code = [place] [facility] 1538) [address] OCCULT BLOOD, [id number] 16:20:00 Test Item Value Reference Range Interpretation Comments FECAL OCCULT BLOOD (BEAKER) (test Positive Negative A code = 618) HEPATIC FUNCTION [id number] 13:39:00 Test Item Value Reference Range Interpretation Comments TOTAL PROTEIN (BEAKER) (test code = 5.7 gm/dL 6.0-8.3 L 770) ALBUMIN (BEAKER) (test code = 1145) 3.2 g/dL 3.5-5.0 L BILIRUBIN TOTAL (BEAKER) (test code 2.1 mg/dL 0.2-1.2 H = 377) BILIRUBIN DIRECT (BEAKER) (test 0.6 mg/dL 0.1-0.5 H code = 706) ALKALINE PHOSPHATASE (BEAKER) (test 98 U/L 40-150 code = 346) AST (SGOT) (BEAKER) (test code = 24 U/L 5-34 353) ALT (SGPT) (BEAKER) (test code = 14 U/L 6-55 347) BASIC METABOLIC [id number] 13:39:00 Test Item Value Reference Range Interpretation Comments SODIUM (BEAKER) 149 meq/L 136-145 H (test code = 381) POTASSIUM (BEAKER) 3.7 meq/L 3.5-5.1 (test code = 379) CHLORIDE (BEAKER) 121 meq/L 98-107 H (test code = 382) CO2 (BEAKER) (test 25 meq/L 22-29 code = 355) BLOOD UREA NITROGEN 25 mg/dL 7-21 H (BEAKER) (test code = 354) CREATININE (BEAKER) 1.01 mg/dL 0.57-1.25 (test code = 358) GLUCOSE RANDOM 164 mg/dL 70-105 H (BEAKER) (test code = 652) CALCIUM (BEAKER) 8.7 mg/dL 8.4-10.2 (test code = 697) EGFR (BEAKER) (test 70 mL/min/1.73 ESTIMA VIKKI GFR IS code = 1092) sq m NOT ACCURATE CREATININE CLEARANCE IN PREDICTING GLOMERULAR FILTRATION RATE . ESTIMATED GFR I S NOT APPLICABLE FOR DIALYSIS PATIEN TS. VANCOMYCIN LEVEL, [id number] 13:35:00 Test Item Value Reference Range Interpretation Comments VANCOMYCIN RANDOM (BEAKER) (test 10.1 ug/mL code = 523) Reference Range: No NormalsHEMOGLOBIN AND [id number] 12:47:00 Test Item Value Reference Range Interpretation Comments HEMOGLOBIN (BEAKER) (test code = 7.3 GM/DL 13.7-17.5 L 410) HEMATOCRIT (BEAKER) (test code = 23.7 % 40.1-51.0 L 411) POCT-GLUCOSE [id number] 12:14:00 Test Item Value Reference Range Interpretation Comments POC-GLUCOSE METER 189 mg/dL 70-110 H TESTED AT [facility] 6720 (BEAKER) (test code = [place] [facility] [place] 1538) [address] ANTI-NUCLEAR ANTIBODY (STEPHY)2018-03-05 10:39:00 Test Item Value Reference Range Interpretation Comments ANTI-NUCLEAR ANTIBODY (STEPHY) (BEAKER) Negative Negative (test code = 418) Test performed by IFA method.Test performed by IFA method.B-TYPE NATRIURETIC FACTOR (BNP)2018-03-05 08:21:00 Test Item Value Reference Range Interpretation Comments B-TYPE NATRIURETIC PEPTIDE (BEAKER) 222 pg/mL 0-100 H (test code = 700) [id number] 08:07:00 Test Item Value Reference Range Interpretation Comments AMMONIA (BEAKER) (test code = 348) 38 mol/L 18-72 RAD, CHEST, 1 VIEW, NON [id number] 06:28:00Reason for exam:->resp failureShould this be performed at the bedside?->YesFINAL REPORT RAD, CHEST, 1 VIEW, NON DEPT INDICATION: resp failure COMPARISON: Prior day's exam FINDINGS: Portable frontal view of the chest. IMPRESSION: Support Lines: Stable. Lungs and pleura: Unchanged airspace and pleural opacities. No pneumothorax.Heart and mediastinum: Stable contours. Stable surgical changes.Additional findings: None. Signed: David Jha Verified Date/Time: 03/05/2018 06:28:24 Reading Location: [address] Transitional Reading Room SHIGA TOXIN [id number] 06:12:00 Test Item Value Reference Range Interpretation Comments SHIGA TOXIN 1 (BEAKER) (test Not detected Not detected code = 2177) SHIGA TOXIN 2 (BEAKER) (test Not detected Not detected code = 2179) CBC W/PLT COUNT & AUTO [id number] 05:32:00 Test Item Value Reference Range Interpretation Comments WHITE BLOOD CELL COUNT (BEAKER) 6.4 K/ L 3.5-10.5 (test code = 775) RED BLOOD CELL COUNT (BEAKER) 2.20 M/ L 4.63-6.08 L (test code = 761) HEMOGLOBIN (BEAKER) (test code = 7.4 GM/DL 13.7-17.5 L 410) HEMATOCRIT (BEAKER) (test code = 24.0 % 40.1-51.0 L 411) MEAN CORPUSCULAR VOLUME (BEAKER) 109.1 fL 79.0-92.2 H (test code = 753) MEAN CORPUSCULAR HEMOGLOBIN 33.6 pg 25.7-32.2 H (BEAKER) (test code = 751) MEAN CORPUSCULAR HEMOGLOBIN CONC 30.8 GM/DL 32.3-36.5 L (BEAKER) (test code = 752) RED CELL DISTRIBUTION WIDTH 15.0 % 11.6-14.4 H (BEAKER) (test code = 412) PLATELET COUNT (BEAKER) (test code 90 K/CU MM 150-450 L = 756) MEAN PLATELET VOLUME (BEAKER) 11.0 fL 9.4-12.4 (test code = 754) NUCLEATED RED BLOOD CELLS (BEAKER) 0 /100 WBC 0-0 (test code = 413) NEUTROPHILS RELATIVE PERCENT 71 % (BEAKER) (test code = 429) LYMPHOCYTES RELATIVE PERCENT 12 % (BEAKER) (test code = 430) MONOCYTES RELATIVE PERCENT 12 % (BEAKER) (test code = 431) EOSINOPHILS RELATIVE PERCENT 5 % (BEAKER) (test code = 432) BASOPHILS RELATIVE PERCENT 0 % (BEAKER) (test code = 437) NEUTROPHILS ABSOLUTE COUNT 4.55 K/ L 1.78-5.38 (BEAKER) (test code = 670) LYMPHOCYTES ABSOLUTE COUNT 0.74 K/ L 1.32-3.57 L (BEAKER) (test code = 414) MONOCYTES ABSOLUTE COUNT (BEAKER) 0.78 K/ L 0.30-0.82 (test code = 415) EOSINOPHILS ABSOLUTE COUNT 0.30 K/ L 0.04-0.54 (BEAKER) (test code = 416) BASOPHILS ABSOLUTE COUNT (BEAKER) 0.02 K/ L 0.01-0.08 (test code = 417) IMMATURE GRANULOCYTES-RELATIVE 0 % 0-1 PERCENT (BEAKER) (test code = 2801) BASIC METABOLIC [id number] 05:31:00 Test Item Value Reference Range Interpretation Comments SODIUM (BEAKER) 150 meq/L 136-145 H (test code = 381) POTASSIUM (BEAKER) 3.8 meq/L 3.5-5.1 (test code = 379) CHLORIDE (BEAKER) 123 meq/L 98-107 H (test code = 382) CO2 (BEAKER) (test 21 meq/L 22-29 L code = 355) BLOOD UREA NITROGEN 30 mg/dL 7-21 H (BEAKER) (test code = 354) CREATININE (BEAKER) 1.10 mg/dL 0.57-1.25 (test code = 358) GLUCOSE RANDOM 148 mg/dL 70-105 H (BEAKER) (test code = 652) CALCIUM (BEAKER) 8.9 mg/dL 8.4-10.2 (test code = 697) EGFR (BEAKER) (test 63 mL/min/1.73 ESTIMA VIKKI GFR IS code = 1092) sq m NOT ACCURATE CREATININE CLEARANCE IN PREDICTING GLOMERULAR FILTRATION RATE . ESTIMATED GFR I S NOT APPLICABLE FOR DIALYSIS PATIEN TS. Check Serum Phosphorus level 4 hours after IV phosphorus replacement or 8 hours after PO replacementcompleted.BLOOD GAS, [id number] 05:29:00 Test Item Value Reference Range Interpretation Comments PH ARTERIAL (BEAKER) (test code = 7.42 7.35-7.45 383) PCO2 ARTERIAL (BEAKER) (test code 36 mmHg 35-45 = 384) PO2 ARTERIAL (BEAKER) (test code 193 mmHg 80-90 H = 385) O2 SATURATION ARTERIAL (BEAKER) 99.3 % 96.0-97.0 H (test code = 386) HCO3 ARTERIAL (BEAKER) (test code 23 mmol/L 21-29 = 388) BASE EXCESS ARTERIAL (BEAKER) -1.6 mmol/L -2.0-3.0 (test code = 387) PATIENT TEMPERATURE (BEAKER) 37.4 C (test code = 1818) FIO2 (BEAKER) (test code = 1819) 30.0 % [id number] 05:28:00 Test Item Value Reference Range Interpretation Comments PHOSPHORUS (BEAKER) (test code = 2.4 mg/dL 2.3-4.7 604) Check Serum Phosphorus level 4 hours after IV phosphorus replacement or 8 hours after PO replacementcompleted.[id number] 05:28:00 Test Item Value Reference Range Interpretation Comments MAGNESIUM (BEAKER) (test code = 2.8 mg/dL 1.6-2.6 H 627) Check Serum Phosphorus level 4 hours after IV phosphorus replacement or 8 hours after PO replacementcompleted.POCT-GLUCOSE [id number] 04:14:00 Test Item Value Reference Range Interpretation Comments POC-GLUCOSE METER 164 mg/dL 70-110 H TESTED AT [facility] 6720 [facility] (test code = [place] 1538) [address] POCT-GLUCOSE [id number] 21:41:00 Test Item Value Reference Range Interpretation Comments POC-GLUCOSE METER 161 mg/dL 70-110 H TESTED AT [facility] 6720 [facility] (test code = [place] 1538) [address] POCT-GLUCOSE [id number] 17:49:00 Test Item Value Reference Range Interpretation Comments POC-GLUCOSE METER 163 mg/dL 70-110 H TESTED AT [facility] 6720 [facility] (test code = [place] 1538) [address] CT, [id number] 16:57:00FINAL REPORT CT of the abdomen and [...] demonstrate degenerative changes. There is a stable wedge-shapedcompression deformity of L1 vertebral body. Impression: Liquid content in colon suggests diarrhea, correlate clinically for enterocolitis. No obstruction. No significant bowel wall thickening identified. Mild colonic diverticulosis. Postsurgical change at the anorectal junction. Advanced atherosclerotic disease. Cardiomegaly. Mild splenomegaly. Status post cholecystectomy. Signed: Shama Melendez MDReport Verified Date/Time: 03/04/2018 16:57:24 Reading Location: [facility] C013Y CT Body Reading Room Sunita ctronically signed by: SHAMA MELENDEZ M.D. on 03/04/2018 04:57 PMSTOOL PATH CHARGE 2018-03-04 14:52:00 Test Item Value Reference Range Interpretation Comments PATHOGEN EXAM CHARGED (BEAKER) (test Done code = 2381) BASIC METABOLIC [id number] 12:28:00 Test Item Value Reference Range Interpretation Comments SODIUM (BEAKER) 150 meq/L 136-145 H (test code = 381) POTASSIUM (BEAKER) 4.2 meq/L 3.5-5.1 (test code = 379) CHLORIDE (BEAKER) 122 meq/L 98-107 H (test code = 382) CO2 (BEAKER) (test 26 meq/L 22-29 code = 355) BLOOD UREA NITROGEN 33 mg/dL 7-21 H (BEAKER) (test code = 354) CREATININE (BEAKER) 1.23 mg/dL 0.57-1.25 (test code = 358) GLUCOSE RANDOM 129 mg/dL 70-105 H (BEAKER) (test code = 652) CALCIUM (BEAKER) 9.0 mg/dL 8.4-10.2 (test code = 697) EGFR (BEAKER) (test 56 mL/min/1.73 ESTIMA VIKKI GFR IS code = 1092) sq m NOT ACCURATE CREATININE CLEARANCE IN PREDICTING GLOMERULAR FILTRATION RATE . ESTIMATED GFR I S NOT APPLICABLE FOR DIALYSIS PATIEN TS. HEMOGLOBIN AND [id number] 12:08:00 Test Item Value Reference Range Interpretation Comments HEMOGLOBIN (BEAKER) (test code = 8.2 GM/DL 13.7-17.5 L 410) HEMATOCRIT (BEAKER) (test code = 26.2 % 40.1-51.0 L 411) POCT-GLUCOSE [id number] 11:16:00 Test Item Value Reference Range Interpretation Comments POC-GLUCOSE METER 159 mg/dL 70-110 H TESTED AT [facility] 6720 (BEAKER) (test code = [place] 1538) [address] LACTIC ACID, ARTERIAL, WHOLE [id number] 10:35:00 Test Item Value Reference Range Interpretation Comments LACTATE BLOOD ARTERIAL (2) 0.7 mmol/L 0.5-2.2 (BEAKER) (test code = 2874) [id number] 08:12:00 Test Item Value Reference Range Interpretation Comments AMMONIA (BEAKER) (test code = 348) 44 mol/L 18-72 RAD, CHEST, 1 VIEW, NON [id number] 05:12:00Reason for exam:->resp failureShould this be performed [...] findings: None. Signed: David Jhaeport Verified Date/Time: 03/04/2018 05:12:43 Reading Location: [address] Transitional Reading Room BASIC METABOLIC PANEL 2018-03-04 05:00:00 Test Item Value Reference Range Interpretation Comments SODIUM (BEAKER) 152 meq/L 136-145 H (test code = 381) POTASSIUM (BEAKER) 3.1 meq/L 3.5-5.1 L (test code = 379) CHLORIDE (BEAKER) 121 meq/L 98-107 H (test code = 382) CO2 (BEAKER) (test 26 meq/L 22-29 code = 355) BLOOD UREA NITROGEN 33 mg/dL 7-21 H (BEAKER) (test code = 354) CREATININE (BEAKER) 1.17 mg/dL 0.57-1.25 (test code = 358) GLUCOSE RANDOM 136 mg/dL 70-105 H (BEAKER) (test code = 652) CALCIUM (BEAKER) 9.2 mg/dL 8.4-10.2 (test code = 697) EGFR (BEAKER) (test 59 mL/min/1.73 ESTIMA VIKKI GFR IS code = 1092) sq m NOT ACCURATE CREATININE CLEARANCE IN PREDICTING GLOMERULAR FILTRATION RATE . ESTIMATED GFR I S NOT APPLICABLE FOR DIALYSIS PATIEN TS. [id number] 04:55:00 Test Item Value Reference Range Interpretation Comments MAGNESIUM (BEAKER) (test code = 3.1 mg/dL 1.6-2.6 H 627) CBC W/PLT COUNT & AUTO [id number] 04:38:00 Test Item Value Reference Range Interpretation Comments WHITE BLOOD CELL COUNT (BEAKER) 7.6 K/ L 3.5-10.5 (test code = 775) RED BLOOD CELL COUNT (BEAKER) 2.39 M/ L 4.63-6.08 L (test code = 761) HEMOGLOBIN (BEAKER) (test code = 7.8 GM/DL 13.7-17.5 L 410) HEMATOCRIT (BEAKER) (test code = 25.3 % 40.1-51.0 L 411) MEAN CORPUSCULAR VOLUME (BEAKER) 105.9 fL 79.0-92.2 H (test code = 753) MEAN CORPUSCULAR HEMOGLOBIN 32.6 pg 25.7-32.2 H (BEAKER) (test code = 751) MEAN CORPUSCULAR HEMOGLOBIN CONC 30.8 GM/DL 32.3-36.5 L (BEAKER) (test code = 752) RED CELL DISTRIBUTION WIDTH 15.6 % 11.6-14.4 H (BEAKER) (test code = 412) PLATELET COUNT (BEAKER) (test 119 K/CU MM 150-450 L code = 756) MEAN PLATELET VOLUME (BEAKER) 10.8 fL 9.4-12.4 (test code = 754) NUCLEATED RED BLOOD CELLS 0 /100 WBC 0-0 (BEAKER) (test code = 413) NEUTROPHILS RELATIVE PERCENT 72 % (BEAKER) (test code = 429) LYMPHOCYTES RELATIVE PERCENT 10 % (BEAKER) (test code = 430) MONOCYTES RELATIVE PERCENT 13 % (BEAKER) (test code = 431) EOSINOPHILS RELATIVE PERCENT 4 % (BEAKER) (test code = 432) BASOPHILS RELATIVE PERCENT 1 % (BEAKER) (test code = 437) NEUTROPHILS ABSOLUTE COUNT 5.49 K/ L 1.78-5.38 H (BEAKER) (test code = 670) LYMPHOCYTES ABSOLUTE COUNT 0.78 K/ L 1.32-3.57 L (BEAKER) (test code = 414) MONOCYTES ABSOLUTE COUNT (BEAKER) 0.98 K/ L 0.30-0.82 H (test code = 415) EOSINOPHILS ABSOLUTE COUNT 0.31 K/ L 0.04-0.54 (BEAKER) (test code = 416) BASOPHILS ABSOLUTE COUNT (BEAKER) 0.04 K/ L 0.01-0.08 (test code = 417) IMMATURE GRANULOCYTES-RELATIVE 0 % 0-1 PERCENT (BEAKER) (test code = 2801) BLOOD GAS, [id number] 04:23:00 Test Item Value Reference Range Interpretation Comments PH ARTERIAL (BEAKER) (test code = 7.47 7.35-7.45 H 383) PCO2 ARTERIAL (BEAKER) (test code 33 mmHg 35-45 L = 384) PO2 ARTERIAL (BEAKER) (test code = 278 mmHg 80-90 H 385) O2 SATURATION ARTERIAL (BEAKER) 99.7 % 96.0-97.0 H (test code = 386) HCO3 ARTERIAL (BEAKER) (test code 24 mmol/L 21-29 = 388) BASE EXCESS ARTERIAL (BEAKER) 0.0 mmol/L -2.0-3.0 (test code = 387) PATIENT TEMPERATURE (BEAKER) (test 36.2 C code = 1818) FIO2 (BEAKER) (test code = 1819) 40.0 % POCT-GLUCOSE [id number] 22:12:00 Test Item Value Reference Range Interpretation Comments POC-GLUCOSE METER 171 mg/dL 70-110 H TESTED AT [facility] 6720 (BEAKER) (test code = TEX Shabazz [place] 1538) [address] TROPONIN [id number] 22:08:00 Test Item Value Reference Range Interpretation Comments TROPONIN I (BEAKER) (test code = 0.08 ng/mL 0.00-0.03 H 397) Troponin I (TnI) levels must be interpreted [...] neurological disease, and persistent tachyarrhythmia.HEPATITIS A ANTIBODY, [id number] 20:40:00 Test Item Value Reference Range Interpretation Comments HEPATITIS A IGG ANTIBODY (BEAKER) Reactive Nonreactive A (test code = 2797) ALPHA FETOPROTEIN (AFP), TUMOR [id number] 20:40:00 Test Item Value Reference Range Interpretation Comments ALPHA-FETOPROTEIN (BEAKER) (test code < ng/mL <10.0 = 1094) CARCINOEMBRYONIC ANTIGEN (CEA)2018-03-03 20:36:00 Test Item Value Reference Range Interpretation Comments CARCINOEMBRYONIC ANTIGEN (BEAKER) 2.2 ng/mL 0.0-5.0 (test code = 685) HEPATITIS B CORE ANTIBODY, [id number] 20:36:00 Test Item Value Reference Range Interpretation Comments HEPATITIS B CORE TOTAL ANTIBODY Nonreactive Nonreactive (BEAKER) (test code = 497) HEPATITIS B SURFACE [id number] 20:23:00 Test Item Value Reference Range Interpretation Comments HEPATITIS B SURFACE ANTIBODY < mIU/mL <8.0 (BEAKER) (test code = 647) HEPATITIS B SURFACE [id number] 20:22:00 Test Item Value Reference Range Interpretation Comments HEPATITIS B SURFACE ANTIGEN (2) Nonreactive Nonreactive (BEAKER) (test code = 2585) HEPATITIS C [id number] 20:22:00 Test Item Value Reference Range Interpretation Comments HEPATITIS C ANTIBODY (BEAKER) Nonreactive Nonreactive (test code = 367) POCT-GLUCOSE [id number] 19:30:00 Test Item Value Reference Range Interpretation Comments POC-GLUCOSE METER 169 mg/dL 70-110 H TESTED AT [facility] 6720 [facility] (test code = TEX Shabazz [facility] 1538) [address] RAD, CHEST, 1 VIEW, NON [id number] 19:12:00Reason for exam:- >intubatedShould this be performed at the bedside?->YesFINAL REPORT [...] Signed: Dawson Barron MDReport Verified Date/Time: 03/03/2018 19:12:40 Reading Location: [address] Reading Room FECAL [id number] 18:56:00 Test Item Value Reference Range Interpretation Comments FECAL LEUKOCYTES No fecal leukocytes No fecal leukocytes (BEAKER) (test code = seen seen 992) RAD, ABDOMEN/KUB, 1 VIEW [id number] 18:41:00Reason for exam:->NGT placement FINAL REPORT Abdomen date 03/03/2018 Comment: Frontal view of the abdomen demonstrates a nasogastric tube present with tip noted in the in the body of the stomach. Signed: Israel Barreport Verified Date/Time: 03/03/2018 18:41:41 Reading Location: [address] Consult ReadingRoom FERRITIN 2018-03-03 18:13:00 Test Item Value Reference Range Interpretation Comments FERRITIN (BEAKER) (test code = 361) 28 ng/mL 5-275 TROPONIN [id number] 17:26:00 Test Item Value Reference Range Interpretation Comments TROPONIN I (BEAKER) (test code = 0.06 ng/mL 0.00-0.03 H 397) Troponin I (TnI) levels must be interpreted [...] acute neurological disease, and persistent tachyarrhythmia.HEPATIC FUNCTION [id number] 17:19:00 Test Item Value Reference Range Interpretation Comments TOTAL PROTEIN (BEAKER) (test code = 6.5 gm/dL 6.0-8.3 770) ALBUMIN (BEAKER) (test code = 1145) 3.7 g/dL 3.5-5.0 BILIRUBIN TOTAL (BEAKER) (test code 2.5 mg/dL 0.2-1.2 H = 377) BILIRUBIN DIRECT (BEAKER) (test 0.8 mg/dL 0.1-0.5 H code = 706) ALKALINE PHOSPHATASE (BEAKER) (test 107 U/L 40-150 code = 346) AST (SGOT) (BEAKER) (test code = 24 U/L 5-34 353) ALT (SGPT) (BEAKER) (test code = 13 U/L 6-55 347) Specimen slightly ictericIRON, TIBC, % SAT. (WITHOUT FERRITIN)2018-03-03 17:19:00 Test Item Value Reference Range Interpretation Comments IRON (BEAKER) (test code = 547) 78.0 ug/dL 40.0-160.0 TOTAL IRON BINDING CAPACITY 294 ug/dL 250-450 (BEAKER) (test code = 769) IRON % SATURATION (2) (BEAKER) 27 % 20-55 (test code = 2590) BASIC METABOLIC [id number] 17:19:00 Test Item Value Reference Range Interpretation Comments SODIUM (BEAKER) 149 meq/L 136-145 H (test code = 381) POTASSIUM (BEAKER) 3.8 meq/L 3.5-5.1 (test code = 379) CHLORIDE (BEAKER) 117 meq/L 98-107 H (test code = 382) CO2 (BEAKER) (test 23 meq/L 22-29 code = 355) BLOOD UREA NITROGEN 30 mg/dL 7-21 H (BEAKER) (test code = 354) CREATININE (BEAKER) 1.06 mg/dL 0.57-1.25 (test code = 358) GLUCOSE RANDOM 171 mg/dL 70-105 H (BEAKER) (test code = 652) CALCIUM (BEAKER) 9.3 mg/dL 8.4-10.2 (test code = 697) EGFR (BEAKER) (test 66 mL/min/1.73 ESTIMA VIKKI GFR IS code = 1092) sq m NOT ACCURATE CREATININE CLEARANCE IN PREDICTING GLOMERULAR FILTRATION RATE . ESTIMATED GFR I S NOT APPLICABLE FOR DIALYSIS PATIEN TS. Specimen slightly ictericHEMOGLOBIN AND [id number] 17:15:00 Test Item Value Reference Range Interpretation Comments HEMOGLOBIN (BEAKER) (test code = 8.3 GM/DL 13.7-17.5 L 410) HEMATOCRIT (BEAKER) (test code = 25.7 % 40.1-51.0 L 411) PROTHROMBIN [id number] 16:53:00 Test Item Value Reference Range Interpretation Comments PROTIME (BEAKER) (test code = 16.1 seconds 11.7-14.7 H 759) INR (BEAKER) (test code = 370) 1.3 <=5.9 RECOMMENDED COUMADIN/WARFARIN INR THERAPY RANGESSTANDARD DOSE: 2.0 - 3.0 Includes: PROPHYLAXIS forvenous thrombosis, systemic embolization; TREATMENT for venous thrombosis and/or pulmonary embolus.HIGH RISK: Target INR is 2.5-3.5 for patients with mechanical heart valves.[id number] 16:53:00 Test Item Value Reference Range Interpretation Comments FIBRINOGEN LEVEL (BEAKER) (test 333 mg/dl 225-434 code = 658) [id number] 16:51:00 Test Item Value Reference Range Interpretation Comments PROCALCITONIN (BEAKER) (test code = < ng/mL <0.05 3036) SEPSIS RISK (ng/mL)Low: 0.05-0.50Intermediate: 0.51-2.00High: >=2.01BLOOD GAS, [id number] 16:07:00 Test Item Value Reference Range Interpretation Comments PH ARTERIAL (BEAKER) (test code = 7.51 7.35-7.45 H 383) PCO2 ARTERIAL (BEAKER) (test code 32 mmHg 35-45 L = 384) PO2 ARTERIAL (BEAKER) (test code = 317 mmHg 80-90 H 385) O2 SATURATION ARTERIAL (BEAKER) 99.8 % 96.0-97.0 H (test code = 386) HCO3 ARTERIAL (BEAKER) (test code 25 mmol/L 21-29 = 388) BASE EXCESS ARTERIAL (BEAKER) 2.0 mmol/L -2.0-3.0 (test code = 387) PATIENT TEMPERATURE (BEAKER) (test 37.5 C code = 1818) FIO2 (BEAKER) (test code = 1819) 60.0 % EEG AWAKE AND [id number] 14:50:00Reason for exam:->altered mental statusEEG REPORT: [facility] Date of EEDate of report: EEG start time: 1216EEG end time: 1237EEG #: [id number] No: [id number] ICD Code: #: R41.82 Altered mental status, unspecified (ICD 9: 780.97)CPT Code: #: 81681: 03. EEG coma or sleep only; 20-40 [...] and approximately about 120/minIMPRESSION: This EEG study is abnormal due to: (1) Severe diffuse slowing of the background rhythms; and, (2) Triphasic potentialsand (3) intermittent attenuations. There is no evidence for electrographic seizure in this record.COMMENT: Diffuse slowing as evident in this record supports an underlying moderate to severe encephalopathy. Triphasic potential is a nonspecific finding that is most typically associated metabolic disturbances (ie. hepatic, renal encephalopathy). However, triphasic potentials can also be associated withother settings of widespread [employer] insults, including the aftermath of prolonged seizures. Intermittent attenuations reflect cortical suppression.Clinical Fellow: Henri YañezNeurophysiologist: Wil Mathias POCT-LACTIC ACID, [id number] 14:13:00 Test Item Value Reference Range Interpretation Comments POC-LACTIC ACID, 1.2 mmol/L 0.4-1.[address] [facility] 6720 ARTERIAL (BEAKER) [facility] (test code = 2804) [address] POCT-BLOOD GASES, [id number] 14:13:00 Test Item Value Reference Range Interpretation Comments TEMP, CELSIUS-POC 37.0 (BEAKER) (test code = 1834) FIO2-POC (BEAKER) TESTED AT [place] [address] (test code = 1835) [facility] [address] PH, ARTERIAL-POC 7.496 7.350-7.450 H (BEAKER) (test code = 1836) PCO2, ARTERIAL-POC 31.0 mm Hg 35.0-45.0 L (BEAKER) (test code = 1837) PO2, ARTERIAL-POC 66.0 mm Hg 80.0-90.0 L (BEAKER) (test code = 1838) SO2, ARTERIAL-POC 95.0 % 96.0-97.0 L (BEAKER) (test code = 1839) HCO3, ARTERIAL-POC 23.9 meq/L 21.0-29.0 (BEAKER) (test code = 1840) BASE EXCESS, 1.0 meq/L -2.0-3.0 ARTERIAL-POC (BEAKER) (test code = 1841) [id number] 14:13:00 Test Item Value Reference Range Interpretation Comments POC-SODIUM (BEAKER) 151 meq/L 135-148 H TESTED A [place] [address] (test code = 1542) [facility] [address] [id number] 14:13:00 Test Item Value Reference Range Interpretation Comments POC-POTASSIUM 3.7 meq/L 3.6-5.5 TESTED AT [place] [address] ([facility]) (test code [facility] [address] = 1540) [id number] 14:13:00 Test Item Value Reference Range Interpretation Comments POC-GLUCOSE (BEAKER) 170 mg/dL 70-110 H TESTED AT [place] [address] (test code = 1855) [facility] [address] POCT-CALCIUM [id number] 14:13:00 Test Item Value Reference Range Interpretation Comments POC-CALCIUM IONIZED 1.20 mmol/L 1.12-1.27 TESTED [place] [address] [facility] (test code = [facility] 1536) [address] [id number] 14:13:00 Test Item Value Reference Range Interpretation Comments POC-HEMATOCRIT 24 % 40-50 L TESTED AT [place] [address] ([facility] (test code = [facility] [address] 3895) [id number] 14:13:00 Test Item Value Reference Range Interpretation Comments POC-HEMOGLOBIN 8.2 g/dL 13.0-16.8 L TESTED AT [facility] 6720 (BEAKER) (test code = TEX Shabazz [facility] 1856) [address] AT [place] [address] [place] [address] VITAMIN B12 AND [id number] 13:00:00 Test Item Value Reference Range Interpretation Comments VITAMIN B12 (BEAKER) (test code = 715 pg/mL 213-816 774) FOLATE (BEAKER) (test code = 362) 17.0 ng/mL >=7.0 POCT-GLUCOSE [id number] 12:55:00 Test Item Value Reference Range Interpretation Comments POC-GLUCOSE METER 190 mg/dL 70-110 H TESTED AT [place] [address] (BEAKER) (test code = DYLANNV Mele [facility] 1538) [address] [id number] 11:41:00 Test Item Value Reference Range Interpretation Comments PROCALCITONIN (BEAKER) (test code = < ng/mL <0.05 3036) SEPSIS RISK (ng/mL)Low: 0.05-0.50Intermediate: 0.51-2.00High: >=2.01URINALYSIS W/ REFLEX URINE [id number] 11:27:00 Test Item Value Reference Range Interpretation Comments COLOR (BEAKER) (test code = 470) Yellow CLARITY (BEAKER) (test code = 469) Clear SPECIFIC GRAVITY UA (BEAKER) (test 1.016 1.001-1.035 code = 468) PH UA (BEAKER) (test code = 467) 6.5 5.0-8.0 PROTEIN UA (BEAKER) (test code = 50 mg/dL Negative A 464) GLUCOSE UA (BEAKER) (test code = Negative Negative 365) KETONES UA (BEAKER) (test code = Trace Negative A 371) BILIRUBIN UA (BEAKER) (test code = Negative Negative 462) BLOOD UA (BEAKER) (test code = 461) Negative Negative NITRITE UA (BEAKER) (test code = Negative Negative 465) LEUKOCYTE ESTERASE UA (BEAKER) Negative Negative (test code = 466) UROBILINOGEN UA (BEAKER) (test code 0.2 mg/dL 0.2-1.0 = 463) RBC UA (BEAKER) (test code = 519) 4 /HPF WBC UA (BEAKER) (test code = 520) 2 /HPF BACTERIA (BEAKER) (test code = 517) Moderate SQUAMOUS EPITHELIAL (BEAKER) (test 1 /HPF code = 516) SOURCE(BEAKER) (test code = 2795) TSH/FREE T4 IF [id number] 11:19:00 Test Item Value Reference Range Interpretation Comments THYROID STIMULATING HORMONE 2.67 uIU/mL 0.35-4.94 (BEAKER) (test code = 772) TROPONIN [id number] 11:04:00 Test Item Value Reference Range Interpretation Comments TROPONIN I (BEAKER) (test code = 0.07 ng/mL 0.00-0.03 H 397) Troponin I (TnI) levels must be interpreted [...] failure, acidosis, acute neurological disease, and persistent tachyarrhythmia.[id number] 11:00:00 Test Item Value Reference Range Interpretation Comments SODIUM (BEAKER) (test code = 381) 148 meq/L 136-145 H HEMOGLOBIN [id number] 10:53:00 Test Item Value Reference Range Interpretation Comments HEMOGLOBIN A1C (BEAKER) (test code = 6.2 % 4.3-6.1 H 368) [id number] 10:45:00 Test Item Value Reference Range Interpretation Comments AMMONIA (BEAKER) (test code = 348) 98 mol/L 18-72 H C. DIFFICILE GDH [id number] 09:57:00 Test Item Value Reference Range Interpretation Comments CDT TOXIN (test code Negative Negative = [id number]) CDT GDH ANTIGEN Positive Negative A C. difficile present but (test code = toxin not detec vikki. [id number]) Indicates colon ization with non-toxige amberly strain or level of tox in below detectable leve ls. No need for enteri c isolation. All atment is rarely needed ( only when strong clinical suspicion for Clostridium difficile infection) Testing performed by [employer] Rapid Cassette Assay. For GDH, published sensitivity of the assay is 98.7% compared to cytotoxicity testing. For Toxin AB, published sensitivity is 87.8% and specificity 99.4% compared to cytotoxicity testing.Verification of kit performance was done by the [facility] Microbiology Lab prior to clinical use.BASIC METABOLIC [id number] 07:28:00 Test Item Value Reference Range Interpretation Comments SODIUM (BEAKER) 133 meq/L 136-145 L (test code = 381) POTASSIUM (BEAKER) 2.8 meq/L 3.5-5.1 L (test code = 379) CHLORIDE (BEAKER) 108 meq/L 98-107 H (test code = 382) CO2 (BEAKER) (test 18 meq/L 22-29 L code = 355) BLOOD UREA NITROGEN 25 mg/dL 7-21 H (BEAKER) (test code = 354) CREATININE (BEAKER) 0.78 mg/dL 0.57-1.25 (test code = 358) GLUCOSE RANDOM 124 mg/dL 70-105 H (BEAKER) (test code = 652) CALCIUM (BEAKER) 7.1 mg/dL 8.4-10.2 L (test code = 697) EGFR (BEAKER) (test 94 mL/min/1.73 ESTIMA VIKKI GFR IS code = 1092) sq m NOT ACCURATE CREATININE CLEARANCE IN PREDICTING GLOMERULAR FILTRATION RATE . ESTIMATED GFR I S NOT APPLICABLE FOR DIALYSIS PATIEN TS. B-TYPE NATRIURETIC FACTOR (BNP)2018-03-03 06:58:00 Test Item Value Reference Range Interpretation Comments B-TYPE NATRIURETIC PEPTIDE (BEAKER) 444 pg/mL 0-100 H (test code = 700) [id number] 06:52:00 Test Item Value Reference Range Interpretation Comments PHOSPHORUS (BEAKER) (test code = 2.3 mg/dL 2.3-4.7 604) [id number] 06:52:00 Test Item Value Reference Range Interpretation Comments MAGNESIUM (BEAKER) (test code = 1.7 mg/dL 1.6-2.6 627) CBC (HEMOGRAM ONLY)2018-03-03 06:38:00 Test Item Value Reference Range Interpretation Comments WHITE BLOOD CELL COUNT (BEAKER) 5.8 K/ L 3.5-10.5 (test code = 775) RED BLOOD CELL COUNT (BEAKER) 2.09 M/ L 4.63-6.08 L (test code = 761) HEMOGLOBIN (BEAKER) (test code = 7.0 GM/DL 13.7-17.5 L 410) HEMATOCRIT (BEAKER) (test code = 22.2 % 40.1-51.0 L 411) MEAN CORPUSCULAR VOLUME (BEAKER) 106.2 fL 79.0-92.2 H (test code = 753) MEAN CORPUSCULAR HEMOGLOBIN 33.5 pg 25.7-32.2 H (BEAKER) (test code = 751) MEAN CORPUSCULAR HEMOGLOBIN CONC 31.5 GM/DL 32.3-36.5 L (BEAKER) (test code = 752) RED CELL DISTRIBUTION WIDTH 14.4 % 11.6-14.4 (BEAKER) (test code = 412) PLATELET COUNT (BEAKER) (test code 91 K/CU MM 150-450 L = 756) MEAN PLATELET VOLUME (BEAKER) 10.9 fL 9.4-12.4 (test code = 754) NUCLEATED RED BLOOD CELLS (BEAKER) 0 /100 WBC 0-0 (test code = 413) MR, MRA, BRAIN, WITHOUT [id number] 05:21:00Reason for exam:->Ischemic Stroke EvaluationFINAL REPORT MRI Brain without contrast Clinical History: Ischemic Stroke EvaluationAMS, Afib Technique: MRI of the brain utilizing axial T2, FLAIR, GRE, DWI; sagittal and coronal T1-weighted images. MRA of the head utilizing 3-D gdli-tv-tmxetm technique, with 3-D reconstructions. MRA of the neck utilizing 2-D and 3-D gsgc-yg-poypki technique, with 3-D reconstructions. Comparisons: None Findings:MRI [...] MRA head: No evidence for a major [place] proximal branch vessel occlusion. MRA neck: Loss of the expected antegrade flow within the cervical right vertebral artery with flow in the distal V4 segment likely via retrograde flow from the basilar artery. 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 No evidence of he modynamically significant stenosis in the left cervical carotid or left vertebral arteries by NASCETcriteria. Signed: David Jha MDReport Verified Date/Time: 03/03/2018 05:21:46 Reading Location: [address] Transitional Reading Room MR, MRA, NECK, WITHOUT IV [id number] 05:21:00 Reason for exam:->Ischemic Stroke EvaluationFINAL REPORT MRI Brain without contrast Clinical History: Ischemic Stroke Eval uationAMS, Afib Technique: MRI of the brain utilizing axial T2, FLAIR, GRE, DWI; sagittal and coronal T1-weighted images. MRA of the head utilizing 3-D csae-ht-zwegdx technique, with 3-D reconstructions. MRA of the neck utilizing 2- D and 3-D rxny-ts-norcyq technique, with 3-D reconstructions. Comparisons: None Findings:MRI [...] MRA head: No evidence for a major [place] proximal branch vessel occlusion. MRA neck: Loss of the expected antegrade flow within the cervical right vertebral artery with flow in the distal V4 segment likely via retrograde flow from the basilar artery. 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 No evidence of he modynamically significant stenosis in the left cervical carotid or left vertebral arteries by NASCETcriteria. Signed: David Jha MDReport Verified Date/Time: 03/03/2018 05:21:46 Reading Location: [address] Reading Room MR, BRAIN, WITHOUT [id number] 05:21:00Reason for exam:->Ischemic Stroke EvaluationFINAL REPORT MRI Brain without contrast Clinical History: Ischemic Stroke EvaluationAMS, Afib Technique: MRI of the brain utilizing axial T2, FLAIR, GRE, DWI; sagittal and coronal T1-weighted images. MRA of the head utilizing 3-D qxqj-kk-pavfes technique, with 3-D reconstructions. MRA of the neck utilizing 2-D and 3-D qvkt-qf-wwtypf technique, with 3-D reconstructions. Comparisons: None Findings:MRI [...] MRA head: No evidence for a major [place] proximal branch vessel occlusion. MRA neck: Loss of the expected antegrade flow within the cervical right vertebral artery with flow in the distal V4 segment likely via retrograde flow from the basilar artery. 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 No evidence of he modynamically significant stenosis in the left cervical carotid or left vertebral arteries by NASCETcriteria. Signed: David Jha Verified Date/Time: 03/03/2018 05:21:46 Reading Location: [address] Reading Room POCT-GLUCOSE [id number] 05:15:00 Test Item Value Reference Range Interpretation Comments POC-GLUCOSE METER 207 mg/dL 70-110 H TESTED AT [place] [address] ([facility]) (test code = TEX Shabazz HYDE [place] 1538) [address] RAD, CHEST, 1 VIEW, NON [id number] 01:11:00Reason for exam:->AMSShould this be performed at [...] quadrant. Signed: Dawson Barron MDReport Verified Date/Time: 03/03/2018 01:11:47 Reading Location: [address] Reading Room URINALYSIS WITH MICROSCOPIC IF [id number] 00:58:00 Test Item Value Reference Range Interpretation Comments COLOR (BEAKER) (test code = 470) Yellow CLARITY (BEAKER) (test code = 469) Clear SPECIFIC GRAVITY UA (BEAKER) (test 1.018 1.001-1.035 code = 468) PH UA (BEAKER) (test code = 467) 6.5 5.0-8.0 PROTEIN UA (BEAKER) (test code = 30 mg/dL Negative A 464) GLUCOSE UA (BEAKER) (test code = Negative Negative 365) KETONES UA (BEAKER) (test code = Trace Negative A 371) BILIRUBIN UA (BEAKER) (test code = Negative Negative 462) BLOOD UA (BEAKER) (test code = 461) Negative Negative NITRITE UA (BEAKER) (test code = Negative Negative 465) LEUKOCYTE ESTERASE UA (BEAKER) Negative Negative (test code = 466) UROBILINOGEN UA (BEAKER) (test code 0.2 mg/dL 0.2-1.0 = 463) SOURCE(BEAKER) (test code = 2795) URINALYSIS [id number] 00:58:00 Test Item Value Reference Range Interpretation Comments RBC UA (BEAKER) (test code = 519) 1 /HPF WBC UA (BEAKER) (test code = 520) 1 /HPF SQUAMOUS EPITHELIAL (BEAKER) (test < /HPF code = 516) AMORPHOUS CRYSTALS (BEAKER) (test Occasional code = 1584) CT, BRAIN/STROKE [id number] 23:16:00FINAL REPORT CT Head without contrast CLINICAL [...] calcifications of the intracranial circulation. There is gener alized parenchymal volume loss without hydrocephalus, midline shift, [...] Jha Verified Date/Time: 03/02/2018 23:16:55 Reading Location: [address] Transitional Reading Room IC ACID, VENOUS, WHOLE [id number] 22:01:00 Test Item Value Reference Range Interpretation Comments LACTATE BLOOD VENOUS (2) (BEAKER) 1.6 mmol/L 0.5-2.2 (test code = 2872) POCT-GLUCOSE [id number] 21:31:00 Test Item Value Reference Range Interpretation Comments POC-GLUCOSE METER 207 mg/dL 70-110 H TESTED AT [facility] 6720 (BEAKER) (test code = [place] Shabazz [facility] 1538) [address] OCCULT BLOOD, [id number] 19:48:00 Test Item Value Reference Range Interpretation Comments FECAL OCCULT BLOOD (BEAKER) (test Positive Negative A code = 618) BASIC METABOLIC [id number] 17:26:00 Test Item Value Reference Range Interpretation Comments SODIUM (BEAKER) 147 meq/L 136-145 H (test code = 381) POTASSIUM (BEAKER) 3.9 meq/L 3.5-5.1 (test code = 379) CHLORIDE (BEAKER) 114 meq/L 98-107 H (test code = 382) CO2 (BEAKER) (test 24 meq/L 22-29 code = 355) BLOOD UREA NITROGEN 33 mg/dL 7-21 H (BEAKER) (test code = 354) CREATININE (BEAKER) 1.12 mg/dL 0.57-1.25 (test code = 358) GLUCOSE RANDOM 176 mg/dL 70-105 H (BEAKER) (test code = 652) CALCIUM (BEAKER) 9.6 mg/dL 8.4-10.2 (test code = 697) EGFR (BEAKER) (test 62 mL/min/1.73 ESTIMA VIKKI GFR IS code = 1092) sq m NOT ACCURATE CREATININE CLEARANCE IN PREDICTING GLOMERULAR FILTRATION RATE . ESTIMATED GFR I S NOT APPLICABLE FOR DIALYSIS PATIEN TS. HEMOGLOBIN AND [id number] 17:09:00 Test Item Value Reference Range Interpretation Comments HEMOGLOBIN (BEAKER) (test code = 8.2 GM/DL 13.7-17.5 L 410) HEMATOCRIT (BEAKER) (test code = 25.7 % 40.1-51.0 L 411) POCT-GLUCOSE [id number] 16:40:00 Test Item Value Reference Range Interpretation Comments POC-GLUCOSE METER 212 mg/dL 70-110 H TESTED AT [facility] 67[address] ([facility]) (test code = TEX HYDE MD 1538) [address] CT, BRAIN, WITHOUT [id number] 12:26:00FINAL REPORT CT head without contrast 03/02/2018 [...] available FINDINGS: There is no hemorrhage, extra-axial collec tion, mass, hydrocephalus, or midline shift. There is [...] Gaona Verified Date/Time: 03/02/2018 12:26:23 Reading Location: [facility] C013V Neuro Reading Room HEMOGLOBIN AND [id number] 12:14:00 Test Item Value Reference Range Interpretation Comments HEMOGLOBIN (BEAKER) (test code = 8.3 GM/DL 13.7-17.5 L 410) HEMATOCRIT (BEAKER) (test code = 25.9 % 40.1-51.0 L 411) POCT-GLUCOSE [id number] 10:26:00 Test Item Value Reference Range Interpretation Comments POC-GLUCOSE METER 178 mg/dL 70-110 H TESTED AT [facility] 67[address] (BEAKER) (test code = TEX [facility] 1538) [id number] 05:10:00 Test Item Value Reference Range Interpretation Comments MAGNESIUM (BEAKER) (test code = 2.2 mg/dL 1.6-2.6 627) BASIC METABOLIC [id number] 05:10:00 Test Item Value Reference Range Interpretation Comments SODIUM (BEAKER) 147 meq/L 136-145 H (test code = 381) POTASSIUM (BEAKER) 3.3 meq/L 3.5-5.1 L (test code = 379) CHLORIDE (BEAKER) 111 meq/L 98-107 H (test code = 382) CO2 (BEAKER) (test 25 meq/L 22-29 code = 355) BLOOD UREA NITROGEN 37 mg/dL 7-21 H (BEAKER) (test code = 354) CREATININE (BEAKER) 1.06 mg/dL 0.57-1.25 (test code = 358) GLUCOSE RANDOM 150 mg/dL 70-105 H (BEAKER) (test code = 652) CALCIUM (BEAKER) 9.3 mg/dL 8.4-10.2 (test code = 697) EGFR (BEAKER) (test 66 mL/min/1.73 ESTIMA VIKKI GFR IS code = 1092) sq m NOT ACCURATE CREATININE CLEARANCE IN PREDICTING GLOMERULAR FILTRATION RATE . ESTIMATED GFR I S NOT APPLICABLE FOR DIALYSIS PATIEN TS. CBC (HEMOGRAM ONLY)2018-03-02 04:53:00 Test Item Value Reference Range Interpretation Comments WHITE BLOOD CELL COUNT (BEAKER) 4.9 K/ L 3.5-10.5 (test code = 775) RED BLOOD CELL COUNT (BEAKER) 2.39 M/ L 4.63-6.08 L (test code = 761) HEMOGLOBIN (BEAKER) (test code = 8.1 GM/DL 13.7-17.5 L 410) HEMATOCRIT (BEAKER) (test code = 24.7 % 40.1-51.0 L 411) MEAN CORPUSCULAR VOLUME (BEAKER) 103.3 fL 79.0-92.2 H (test code = 753) MEAN CORPUSCULAR HEMOGLOBIN 33.9 pg 25.7-32.2 H (BEAKER) (test code = 751) MEAN CORPUSCULAR HEMOGLOBIN CONC 32.8 GM/DL 32.3-36.5 (BEAKER) (test code = 752) RED CELL DISTRIBUTION WIDTH 13.7 % 11.6-14.4 (BEAKER) (test code = 412) PLATELET COUNT (BEAKER) (test code 99 K/CU MM 150-450 L = 756) MEAN PLATELET VOLUME (BEAKER) 10.9 fL 9.4-12.4 (test code = 754) NUCLEATED RED BLOOD CELLS (BEAKER) 0 /100 WBC 0-0 (test code = 413) BASIC METABOLIC [id number] 06:30:00 Test Item Value Reference Range Interpretation Comments SODIUM (BEAKER) 130 meq/L 136-145 L (test code = 381) POTASSIUM (BEAKER) 4.2 meq/L 3.5-5.1 (test code = 379) CHLORIDE (BEAKER) 99 meq/L 98-107 (test code = 382) CO2 (BEAKER) (test 23 meq/L 22-29 code = 355) BLOOD UREA NITROGEN 25 mg/dL 7-21 H (BEAKER) (test code = 354) CREATININE (BEAKER) 1.64 mg/dL 0.57-1.25 H (test code = 358) GLUCOSE RANDOM 154 mg/dL 70-105 H (BEAKER) (test code = 652) CALCIUM (BEAKER) 8.7 mg/dL 8.4-10.2 (test code = 697) EGFR (BEAKER) (test 40 mL/min/1.73 ESTIMA VIKKI GFR IS code = 1092) sq m NOT ACCURATE CREATININE CLEARANCE IN PREDICTING GLOMERULAR FILTRATION RATE . ESTIMATED GFR I S NOT APPLICABLE FOR DIALYSIS PATIEN TS. CBC W/PLT COUNT & AUTO [id number] 06:30:00 Test Item Value Reference Range Interpretation Comments WHITE BLOOD CELL COUNT (BEAKER) 4.6 K/ L 3.5-10.5 (test code = 775) RED BLOOD CELL COUNT (BEAKER) 2.50 M/ L 4.63-6.08 L (test code = 761) HEMOGLOBIN (BEAKER) (test code = 8.4 GM/DL 13.7-17.5 L 410) HEMATOCRIT (BEAKER) (test code = 26.3 % 40.1-51.0 L 411) MEAN CORPUSCULAR VOLUME (BEAKER) 105.2 fL 79.0-92.2 H (test code = 753) MEAN CORPUSCULAR HEMOGLOBIN 33.6 pg 25.7-32.2 H (BEAKER) (test code = 751) MEAN CORPUSCULAR HEMOGLOBIN CONC 31.9 GM/DL 32.3-36.5 L (BEAKER) (test code = 752) RED CELL DISTRIBUTION WIDTH 15.6 % 11.6-14.4 H (BEAKER) (test code = 412) PLATELET COUNT (BEAKER) (test code 62 K/CU MM 150-450 L = 756) MEAN PLATELET VOLUME (BEAKER) 10.9 fL 9.4-12.4 (test code = 754) NUCLEATED RED BLOOD CELLS (BEAKER) 0 /100 WBC 0-0 (test code = 413) NEUTROPHILS RELATIVE PERCENT 62 % (BEAKER) (test code = 429) LYMPHOCYTES RELATIVE PERCENT 18 % (BEAKER) (test code = 430) MONOCYTES RELATIVE PERCENT 17 % (BEAKER) (test code = 431) EOSINOPHILS RELATIVE PERCENT 3 % (BEAKER) (test code = 432) BASOPHILS RELATIVE PERCENT 0 % (BEAKER) (test code = 437) NEUTROPHILS ABSOLUTE COUNT 2.88 K/ L 1.78-5.38 (BEAKER) (test code = 670) LYMPHOCYTES ABSOLUTE COUNT 0.82 K/ L 1.32-3.57 L (BEAKER) (test code = 414) MONOCYTES ABSOLUTE COUNT (BEAKER) 0.78 K/ L 0.30-0.82 (test code = 415) EOSINOPHILS ABSOLUTE COUNT 0.12 K/ L 0.04-0.54 (BEAKER) (test code = 416) BASOPHILS ABSOLUTE COUNT (BEAKER) 0.01 K/ L 0.01-0.08 (test code = 417) IMMATURE GRANULOCYTES-RELATIVE 0 % 0-1 PERCENT (BEAKER) (test code = 2801) RAD, CHEST, 1 VIEW, NON [id number] 04:10:00post-operative day 1Reason for exam:->chfShould this be [...] Jha Verified Date/Time: 09/11/2017 04:10:08 Reading Location: [address] Reading Room BASIC METABOLIC PANEL 2017-09-11 04:02:00 Test Item Value Reference Range Interpretation Comments SODIUM (BEAKER) 136 meq/L 136-145 (test code = 381) POTASSIUM (BEAKER) 3.8 meq/L 3.5-5.1 (test code = 379) CHLORIDE (BEAKER) 104 meq/L 98-107 (test code = 382) CO2 (BEAKER) (test 22 meq/L 22-29 code = 355) BLOOD UREA NITROGEN 16 mg/dL 7-21 (BEAKER) (test code = 354) CREATININE (BEAKER) 0.92 mg/dL 0.57-1.25 (test code = 358) GLUCOSE RANDOM 132 mg/dL 70-105 H (BEAKER) (test code = 652) CALCIUM (BEAKER) 8.9 mg/dL 8.4-10.2 (test code = 697) EGFR (BEAKER) (test 78 mL/min/1.73 ESTIMA VIKKI GFR IS code = 1092) sq m NOT ACCURATE CREATININE CLEARANCE IN PREDICTING GLOMERULAR FILTRATION RATE . ESTIMATED GFR I S NOT APPLICABLE FOR DIALYSIS PATIEN TS. Specimen slightly ictericCBC W/PLT COUNT & AUTO [id number] 03:48:00 Test Item Value Reference Range Interpretation Comments WHITE BLOOD CELL COUNT (BEAKER) 5.7 K/ L 3.5-10.5 (test code = 775) RED BLOOD CELL COUNT (BEAKER) 2.73 M/ L 4.63-6.08 L (test code = 761) HEMOGLOBIN (BEAKER) (test code = 9.2 GM/DL 13.7-17.5 L 410) HEMATOCRIT (BEAKER) (test code = 29.1 % 40.1-51.0 L 411) MEAN CORPUSCULAR VOLUME (BEAKER) 106.6 fL 79.0-92.2 H (test code = 753) MEAN CORPUSCULAR HEMOGLOBIN 33.7 pg 25.7-32.2 H (BEAKER) (test code = 751) MEAN CORPUSCULAR HEMOGLOBIN CONC 31.6 GM/DL 32.3-36.5 L (BEAKER) (test code = 752) RED CELL DISTRIBUTION WIDTH 15.4 % 11.6-14.4 H (BEAKER) (test code = 412) PLATELET COUNT (BEAKER) (test code 84 K/CU MM 150-450 L = 756) MEAN PLATELET VOLUME (BEAKER) 10.3 fL 9.4-12.4 (test code = 754) NUCLEATED RED BLOOD CELLS (BEAKER) 0 /100 WBC 0-0 (test code = 413) NEUTROPHILS RELATIVE PERCENT 76 % (BEAKER) (test code = 429) LYMPHOCYTES RELATIVE PERCENT 10 % (BEAKER) (test code = 430) MONOCYTES RELATIVE PERCENT 10 % (BEAKER) (test code = 431) EOSINOPHILS RELATIVE PERCENT 3 % (BEAKER) (test code = 432) BASOPHILS RELATIVE PERCENT 0 % (BEAKER) (test code = 437) NEUTROPHILS ABSOLUTE COUNT 4.33 K/ L 1.78-5.38 (BEAKER) (test code = 670) LYMPHOCYTES ABSOLUTE COUNT 0.59 K/ L 1.32-3.57 L (BEAKER) (test code = 414) MONOCYTES ABSOLUTE COUNT (BEAKER) 0.57 K/ L 0.30-0.82 (test code = 415) EOSINOPHILS ABSOLUTE COUNT 0.16 K/ L 0.04-0.54 (BEAKER) (test code = 416) BASOPHILS ABSOLUTE COUNT (BEAKER) 0.02 K/ L 0.01-0.08 (test code = 417) IMMATURE GRANULOCYTES-RELATIVE 0 % 0-1 PERCENT (BEAKER) (test code = 2801) [id number] 16:36:00 Test Item Value Reference Range Interpretation Comments ACTIVATED CLOTTING TIME 142 sec TEST ED AT [place] [address] (BEAKER) (test code = TEX [employer] [place] [address]) [id number] 16:02:00 Test Item Value Reference Range Interpretation Comments ACTIVATED CLOTTING TIME 279 sec TEST ED [facility] [place] [address] [facility] (test code = [facility] [place] [address]) [id number] 16:02:00 Test Item Value Reference Range Interpretation Comments ACTIVATED CLOTTING TIME 252 sec TEST ED AT [place] [address] ([facility] (test code = [place] [address]) [id number] B-TYPE NATRIURETIC FACTOR (BNP)2017-08-24 15:17:00 Test Item Value Reference Range Interpretation Comments B-TYPE NATRIURETIC PEPTIDE (BEAKER) 170 pg/mL 0-100 H (test code = 700) BASIC METABOLIC [id number] 15:08:00 Test Item Value Reference Range Interpretation Comments SODIUM (BEAKER) 139 meq/L 136-145 (test code = 381) POTASSIUM (BEAKER) 4.1 meq/L 3.5-5.1 (test code = 379) CHLORIDE (BEAKER) 99 meq/L 98-107 (test code = 382) CO2 (BEAKER) (test 33 meq/L 22-29 H code = 355) BLOOD UREA NITROGEN 20 mg/dL 7-21 (BEAKER) (test code = 354) CREATININE (BEAKER) 1.02 mg/dL 0.57-1.25 (test code = 358) GLUCOSE RANDOM 132 mg/dL 70-105 H (BEAKER) (test code = 652) CALCIUM (BEAKER) 9.9 mg/dL 8.4-10.2 (test code = 697) EGFR (BEAKER) (test 69 mL/min/1.73 ESTIMA VIKKI GFR IS code = 1092) sq m NOT ACCURATE CREATININE CLEARANCE IN PREDICTING GLOMERULAR FILTRATION RATE . ESTIMATED GFR I S NOT APPLICABLE FOR DIALYSIS PATIEN TS. Specimen slightly [id number] 15:08:00 Test Item Value Reference Range Interpretation Comments ALBUMIN (BEAKER) (test code = 1145) 4.2 g/dL 3.5-5.0 PROTHROMBIN [id number] 14:59:00 Test Item Value Reference Range Interpretation Comments PROTIME (BEAKER) (test code = 16.7 seconds 11.7-14.7 H 759) INR (BEAKER) (test code = 370) 1.4 <=5.9 RECOMMENDED COUMADIN/WARFARIN INR THERAPY RANGESSTANDARD DOSE: 2.0 - 3.0 Includes: PROPHYLAXIS forvenous thrombosis, systemic embolization; TREATMENT for venous thrombosis and/or pulmonary embolus.HIGH RISK: Target INR is 2.5-3.5 for patients with mechanical heart valves.CBC W/PLT COUNT & AUTO DIFFERENTIAL 2017-08-24 14:53:00 Test Item Value Reference Range Interpretation Comments WHITE BLOOD CELL COUNT (BEAKER) 3.7 K/ L 3.5-10.5 (test code = 775) RED BLOOD CELL COUNT (BEAKER) 3.11 M/ L 4.63-6.08 L (test code = 761) HEMOGLOBIN (BEAKER) (test code = 10.5 GM/DL 13.7-17.5 L 410) HEMATOCRIT (BEAKER) (test code = 32.3 % 40.1-51.0 L 411) MEAN CORPUSCULAR VOLUME (BEAKER) 103.9 fL 79.0-92.2 H (test code = 753) MEAN CORPUSCULAR HEMOGLOBIN 33.8 pg 25.7-32.2 H (BEAKER) (test code = 751) MEAN CORPUSCULAR HEMOGLOBIN CONC 32.5 GM/DL 32.3-36.5 (BEAKER) (test code = 752) RED CELL DISTRIBUTION WIDTH 15.8 % 11.6-14.4 H (BEAKER) (test code = 412) PLATELET COUNT (BEAKER) (test 139 K/CU MM 150-450 L code = 756) MEAN PLATELET VOLUME (BEAKER) 10.2 fL 9.4-12.4 (test code = 754) NUCLEATED RED BLOOD CELLS 0 /100 WBC 0-0 (BEAKER) (test code = 413) NEUTROPHILS RELATIVE PERCENT 59 % (BEAKER) (test code = 429) LYMPHOCYTES RELATIVE PERCENT 23 % (BEAKER) (test code = 430) MONOCYTES RELATIVE PERCENT 13 % (BEAKER) (test code = 431) EOSINOPHILS RELATIVE PERCENT 4 % (BEAKER) (test code = 432) BASOPHILS RELATIVE PERCENT 1 % (BEAKER) (test code = 437) NEUTROPHILS ABSOLUTE COUNT 2.18 K/ L 1.78-5.38 (BEAKER) (test code = 670) LYMPHOCYTES ABSOLUTE COUNT 0.86 K/ L 1.32-3.57 L (BEAKER) (test code = 414) MONOCYTES ABSOLUTE COUNT (BEAKER) 0.46 K/ L 0.30-0.82 (test code = 415) EOSINOPHILS ABSOLUTE COUNT 0.14 K/ L 0.04-0.54 (BEAKER) (test code = 416) BASOPHILS ABSOLUTE COUNT (BEAKER) 0.04 K/ L 0.01-0.08 (test code = 417) IMMATURE GRANULOCYTES-RELATIVE 0 % 0-1 PERCENT (BEAKER) (test code = 2801) BASIC METABOLIC [id number] 06:31:00 Test Item Value Reference Range Interpretation Comments SODIUM (BEAKER) 136 meq/L 136-145 (test code = 381) POTASSIUM (BEAKER) 4.4 meq/L 3.5-5.1 (test code = 379) CHLORIDE (BEAKER) 94 meq/L 98-107 L (test code = 382) CO2 (BEAKER) (test 37 meq/L 22-29 H code = 355) BLOOD UREA NITROGEN 26 mg/dL 7-21 H (BEAKER) (test code = 354) CREATININE (BEAKER) 1.07 mg/dL 0.57-1.25 (test code = 358) GLUCOSE RANDOM 115 mg/dL 70-105 H (BEAKER) (test code = 652) CALCIUM (BEAKER) 9.6 mg/dL 8.4-10.2 (test code = 697) EGFR (BEAKER) (test 66 mL/min/1.73 ESTIMA VIKKI GFR IS code = 1092) sq m NOT ACCURATE CREATININE CLEARANCE IN PREDICTING GLOMERULAR FILTRATION RATE . ESTIMATED GFR I S NOT APPLICABLE FOR DIALYSIS PATIEN TS. URINALYSIS W/ [id number] 17:39:00 Test Item Value Reference Range Interpretation Comments COLOR (BEAKER) (test code Yellow = 470) CLARITY (BEAKER) (test Cloudy code = 469) SPECIFIC GRAVITY UA 1.012 1.001-1.035 (BEAKER) (test code = 468) PH UA (BEAKER) (test code 6.5 5.0-8.0 = 467) PROTEIN UA (BEAKER) (test 50 mg/dL Negative A code = 464) GLUCOSE UA (BEAKER) (test Negative Negative code = 365) KETONES UA (BEAKER) (test Negative Negative code = 371) BILIRUBIN UA (BEAKER) Negative Negative (test code = 462) BLOOD UA (BEAKER) (test Small Negative A code = 461) NITRITE UA (BEAKER) (test Negative Negative code = 465) LEUKOCYTE ESTERASE UA Large Negative A (BEAKER) (test code = 466) UROBILINOGEN UA (BEAKER) 0.2 mg/dL 0.2-1.0 (test code = 463) RBC UA (BEAKER) (test code 0 /HPF = 519) WBC UA (BEAKER) (test code > /HPF = 520) BACTERIA (BEAKER) (test Moderate code = 517) SOURCE(BEAKER) (test code Urine, Clean Catch = 1601) BASIC METABOLIC [id number] 05:57:00 Test Item Value Reference Range Interpretation Comments SODIUM (BEAKER) 135 meq/L 136-145 L (test code = 381) POTASSIUM (BEAKER) 4.3 meq/L 3.5-5.1 (test code = 379) CHLORIDE (BEAKER) 93 meq/L 98-107 L (test code = 382) CO2 (BEAKER) (test 32 meq/L 22-29 H code = 355) BLOOD UREA NITROGEN 33 mg/dL 7-21 H (BEAKER) (test code = 354) CREATININE (BEAKER) 1.10 mg/dL 0.57-1.25 (test code = 358) GLUCOSE RANDOM 113 mg/dL 70-105 H (BEAKER) (test code = 652) CALCIUM (BEAKER) 9.2 mg/dL 8.4-10.2 (test code = 697) EGFR (BEAKER) (test 63 mL/min/1.73 ESTIMA VIKKI GFR IS code = 1092) sq m NOT ACCURATE CREATININE CLEARANCE IN PREDICTING GLOMERULAR FILTRATION RATE . ESTIMATED GFR I S NOT APPLICABLE FOR DIALYSIS PATIEN TS. CBC W/PLT COUNT & AUTO [id number] 05:36:00 Test Item Value Reference Range Interpretation Comments WHITE BLOOD CELL COUNT (BEAKER) 4.8 K/ L 3.5-10.5 (test code = 775) RED BLOOD CELL COUNT (BEAKER) 2.77 M/ L 4.63-6.08 L (test code = 761) HEMOGLOBIN (BEAKER) (test code = 9.1 GM/DL 13.7-17.5 L 410) HEMATOCRIT (BEAKER) (test code = 27.9 % 40.1-51.0 L 411) MEAN CORPUSCULAR VOLUME (BEAKER) 100.7 fL 79.0-92.2 H (test code = 753) MEAN CORPUSCULAR HEMOGLOBIN 32.9 pg 25.7-32.2 H (BEAKER) (test code = 751) MEAN CORPUSCULAR HEMOGLOBIN CONC 32.6 GM/DL 32.3-36.5 (BEAKER) (test code = 752) RED CELL DISTRIBUTION WIDTH 14.6 % 11.6-14.4 H (BEAKER) (test code = 412) PLATELET COUNT (BEAKER) (test 176 K/CU MM 150-450 code = 756) MEAN PLATELET VOLUME (BEAKER) 9.8 fL 9.4-12.4 (test code = 754) NUCLEATED RED BLOOD CELLS 0 /100 WBC 0-0 (BEAKER) (test code = 413) NEUTROPHILS RELATIVE PERCENT 63 % (BEAKER) (test code = 429) LYMPHOCYTES RELATIVE PERCENT 14 % (BEAKER) (test code = 430) MONOCYTES RELATIVE PERCENT 13 % (BEAKER) (test code = 431) EOSINOPHILS RELATIVE PERCENT 10 % (BEAKER) (test code = 432) BASOPHILS RELATIVE PERCENT 1 % (BEAKER) (test code = 437) NEUTROPHILS ABSOLUTE COUNT 3.05 K/ L 1.78-5.38 (BEAKER) (test code = 670) LYMPHOCYTES ABSOLUTE COUNT 0.66 K/ L 1.32-3.57 L (BEAKER) (test code = 414) MONOCYTES ABSOLUTE COUNT (BEAKER) 0.61 K/ L 0.30-0.82 (test code = 415) EOSINOPHILS ABSOLUTE COUNT 0.46 K/ L 0.04-0.54 (BEAKER) (test code = 416) BASOPHILS ABSOLUTE COUNT (BEAKER) 0.04 K/ L 0.01-0.08 (test code = 417) IMMATURE GRANULOCYTES-RELATIVE 0 % 0-1 PERCENT (BEAKER) (test code = 2801) BASIC METABOLIC [id number] 07:35:00 Test Item Value Reference Range Interpretation Comments SODIUM (BEAKER) 134 meq/L 136-145 L (test code = 381) POTASSIUM (BEAKER) 3.7 meq/L 3.5-5.1 (test code = 379) CHLORIDE (BEAKER) 95 meq/L 98-107 L (test code = 382) CO2 (BEAKER) (test 27 meq/L 22-29 code = 355) BLOOD UREA NITROGEN 30 mg/dL 7-21 H (BEAKER) (test code = 354) CREATININE (BEAKER) 1.04 mg/dL 0.57-1.25 (test code = 358) GLUCOSE RANDOM 101 mg/dL 70-105 (BEAKER) (test code = 652) CALCIUM (BEAKER) 8.9 mg/dL 8.4-10.2 (test code = 697) EGFR (BEAKER) (test 68 mL/min/1.73 ESTIMA VIKKI GFR IS code = 1092) sq m NOT ACCURATE CREATININE CLEARANCE IN PREDICTING GLOMERULAR FILTRATION RATE . ESTIMATED GFR I S NOT APPLICABLE FOR DIALYSIS PATIEN TS. Specimen slightly ictericBASIC METABOLIC [id number] 06:09:00 Test Item Value Reference Range Interpretation Comments SODIUM (BEAKER) 133 meq/L 136-145 L (test code = 381) POTASSIUM (BEAKER) 3.9 meq/L 3.5-5.1 (test code = 379) CHLORIDE (BEAKER) 97 meq/L 98-107 L (test code = 382) CO2 (BEAKER) (test 28 meq/L 22-29 code = 355) BLOOD UREA NITROGEN 20 mg/dL 7-21 (BEAKER) (test code = 354) CREATININE (BEAKER) 0.92 mg/dL 0.57-1.25 (test code = 358) GLUCOSE RANDOM 97 mg/dL 70-105 (BEAKER) (test code = 652) CALCIUM (BEAKER) 8.8 mg/dL 8.4-10.2 (test code = 697) EGFR (BEAKER) (test 78 mL/min/1.73 ESTIMA VIKKI GFR IS code = 1092) sq m NOT ACCURATE CREATININE CLEARANCE IN PREDICTING GLOMERULAR FILTRATION RATE . ESTIMATED GFR I S NOT APPLICABLE FOR DIALYSIS PATIEN TS. Specimen slightly ictericB-TYPE NATRIURETIC FACTOR (BNP)2017-07-29 06:01:00 Test Item Value Reference Range Interpretation Comments B-TYPE NATRIURETIC PEPTIDE (BEAKER) 109 pg/mL 0-100 H (test code = 700) RAD, CHEST, 1 VIEW, NON [id number] 17:23:00Reason for exam:->chfShould this be performed at [...] are intact and well aligned. Signed: Ravi Griffin MDReport Verified Date/Time: 07/28/2017 17:23:24 Reading Location: [facility] Radiology Reading Room URINE [id number] 10:09:00 Test Item Value Reference Interpretation Comments Range CULTURE (BEAKER) KLEBSIELLA A >100,000 co l/mL (test code = 1095) PNEUMONIAE SSP Klebsie lla PNEUMONIAE pneumoniae ssp pneumoniae Amikacin (test code S = 1) Ampicillin + S Sulbactam (test code = 6) Aztreonam (test S code = 32) Cefepime (test code S = 51) Cefoxitin (test S code = 68) Ceftazidime (test S code = 27) Ceftriaxone (test S code = 52) Ertapenem (test S code = 38) Gentamicin (test S code = 18) Levofloxacin (test S code = 22) Meropenem (test S code = 34) Nitrofurantoin R (test code = 23) Piperacillin + S Tazobactam (test code = 29) Tetracycline (test S code = 2) Tobramycin (test S code = 25) Trimethoprim + S Sulfamethoxazole (test code = 47) CULTURE (BEAKER) STENOTROPHOMONAS A 50-59,0 00 col/mL (test code = 1095) MALTOPHILIA Stenotrop homonas maltophilia Ceftazidime (test Susceptible R code = 27) 0-8 , Resistant <0 or >8 Levofloxacin (test Susceptible S code = 22) 0-2 , Resistant <0 or >2 Minocycline (test Susceptible S code = 35) 0-4 , Resistant <0 or >4 Ticarcillin + Susceptible R Clavulanic Acid 0-16 , (test code = 80) Resistant <0 or >16 Trimethoprim + Susceptible S Sulfamethoxazole 0-40 , (test code = 47) Resistant <0 or >40 COMPREHENSIVE METABOLIC [id number] 07:06:00 Test Item Value Reference Range Interpretation Comments TOTAL PROTEIN 6.3 gm/dL 6.0-8.3 (BEAKER) (test code = 770) ALBUMIN (BEAKER) 3.4 g/dL 3.5-5.0 L (test code = 1145) ALKALINE PHOSPHATASE 122 U/L 40-150 (BEAKER) (test code = 346) BILIRUBIN TOTAL 2.2 mg/dL 0.2-1.2 H (BEAKER) (test code = 377) SODIUM (BEAKER) (test 137 meq/L 136-145 code = 381) POTASSIUM (BEAKER) 4.8 meq/L 3.5-5.1 (test code = 379) CHLORIDE (BEAKER) 102 meq/L 98-107 (test code = 382) CO2 (BEAKER) (test 27 meq/L 22-29 code = 355) BLOOD UREA NITROGEN 17 mg/dL 7-21 (BEAKER) (test code = 354) CREATININE (BEAKER) 0.80 mg/dL 0.57-1.25 (test code = 358) GLUCOSE RANDOM 122 mg/dL 70-105 H (BEAKER) (test code = 652) CALCIUM (BEAKER) 9.1 mg/dL 8.4-10.2 (test code = 697) AST (SGOT) (BEAKER) 31 U/L 5-34 (test code = 353) ALT (SGPT) (BEAKER) 19 U/L 6-55 (test code = 347) EGFR (BEAKER) (test 92 mL/min/1.73 ESTIMA VIKKI GFR IS code = 1092) sq m NOT ACCURATE CREATININE CLEARANCE IN PREDICTING GLOMERULAR FILTRATION RATE . ESTIMATED GFR I S NOT APPLICABLE FOR DIALYSIS PATIEN TS. Specimen slightly ictericCBC W/PLT COUNT & AUTO [id number] 06:35:00 Test Item Value Reference Range Interpretation Comments WHITE BLOOD CELL COUNT (BEAKER) 6.0 K/ L 3.5-10.5 (test code = 775) RED BLOOD CELL COUNT (BEAKER) 2.86 M/ L 4.63-6.08 L (test code = 761) HEMOGLOBIN (BEAKER) (test code = 9.6 GM/DL 13.7-17.5 L 410) HEMATOCRIT (BEAKER) (test code = 29.2 % 40.1-51.0 L 411) MEAN CORPUSCULAR VOLUME (BEAKER) 102.1 fL 79.0-92.2 H (test code = 753) MEAN CORPUSCULAR HEMOGLOBIN 33.6 pg 25.7-32.2 H (BEAKER) (test code = 751) MEAN CORPUSCULAR HEMOGLOBIN CONC 32.9 GM/DL 32.3-36.5 (BEAKER) (test code = 752) RED CELL DISTRIBUTION WIDTH 14.7 % 11.6-14.4 H (BEAKER) (test code = 412) PLATELET COUNT (BEAKER) (test 169 K/CU MM 150-450 code = 756) MEAN PLATELET VOLUME (BEAKER) 9.8 fL 9.4-12.4 (test code = 754) NUCLEATED RED BLOOD CELLS 0 /100 WBC 0-0 (BEAKER) (test code = 413) NEUTROPHILS RELATIVE PERCENT 69 % (BEAKER) (test code = 429) LYMPHOCYTES RELATIVE PERCENT 12 % (BEAKER) (test code = 430) MONOCYTES RELATIVE PERCENT 11 % (BEAKER) (test code = 431) EOSINOPHILS RELATIVE PERCENT 7 % (BEAKER) (test code = 432) BASOPHILS RELATIVE PERCENT 0 % (BEAKER) (test code = 437) NEUTROPHILS ABSOLUTE COUNT 4.13 K/ L 1.78-5.38 (BEAKER) (test code = 670) LYMPHOCYTES ABSOLUTE COUNT 0.70 K/ L 1.32-3.57 L (BEAKER) (test code = 414) MONOCYTES ABSOLUTE COUNT (BEAKER) 0.67 K/ L 0.30-0.82 (test code = 415) EOSINOPHILS ABSOLUTE COUNT 0.44 K/ L 0.04-0.54 (BEAKER) (test code = 416) BASOPHILS ABSOLUTE COUNT (BEAKER) 0.02 K/ L 0.01-0.08 (test code = 417) IMMATURE GRANULOCYTES-RELATIVE 1 % 0-1 PERCENT (BEAKER) (test code = 2801) URINALYSIS W/ [id number] 18:38:00 Test Item Value Reference Range Interpretation Comments COLOR (BEAKER) (test code Yellow = 470) CLARITY (BEAKER) (test Clear code = 469) SPECIFIC GRAVITY UA 1.005 1.001-1.035 (BEAKER) (test code = 468) PH UA (BEAKER) (test code 6.5 5.0-8.0 = 467) PROTEIN UA (BEAKER) (test Negative Negative code = 464) GLUCOSE UA (BEAKER) (test Negative Negative code = 365) KETONES UA (BEAKER) (test Negative Negative code = 371) BILIRUBIN UA (BEAKER) Negative Negative (test code = 462) BLOOD UA (BEAKER) (test Negative Negative code = 461) NITRITE UA (BEAKER) (test Negative Negative code = 465) LEUKOCYTE ESTERASE UA Negative Negative (BEAKER) (test code = 466) UROBILINOGEN UA (BEAKER) 0.2 mg/dL 0.2-1.0 (test code = 463) RBC UA (BEAKER) (test code 0 /HPF = 519) WBC UA (BEAKER) (test code < /HPF = 520) SOURCE(BEAKER) (test code Urine, Clean Catch = 2075) CBC W/PLT COUNT & AUTO [id number] 04:47:00 Test Item Value Reference Range Interpretation Comments WHITE BLOOD CELL COUNT (BEAKER) 5.5 K/ L 3.5-10.5 (test code = 775) RED BLOOD CELL COUNT (BEAKER) 2.72 M/ L 4.63-6.08 L (test code = 761) HEMOGLOBIN (BEAKER) (test code = 8.9 GM/DL 13.7-17.5 L 410) HEMATOCRIT (BEAKER) (test code = 27.1 % 40.1-51.0 L 411) MEAN CORPUSCULAR VOLUME (BEAKER) 99.6 fL 79.0-92.2 H (test code = 753) MEAN CORPUSCULAR HEMOGLOBIN 32.7 pg 25.7-32.2 H (BEAKER) (test code = 751) MEAN CORPUSCULAR HEMOGLOBIN CONC 32.8 GM/DL 32.3-36.5 (BEAKER) (test code = 752) RED CELL DISTRIBUTION WIDTH 15.0 % 11.6-14.4 H (BEAKER) (test code = 412) PLATELET COUNT (BEAKER) (test 149 K/CU MM 150-450 L code = 756) MEAN PLATELET VOLUME (BEAKER) 10.0 fL 9.4-12.4 (test code = 754) NUCLEATED RED BLOOD CELLS 0 /100 WBC 0-0 (BEAKER) (test code = 413) NEUTROPHILS RELATIVE PERCENT 62 % (BEAKER) (test code = 429) LYMPHOCYTES RELATIVE PERCENT 13 % (BEAKER) (test code = 430) MONOCYTES RELATIVE PERCENT 14 % (BEAKER) (test code = 431) EOSINOPHILS RELATIVE PERCENT 9 % (BEAKER) (test code = 432) BASOPHILS RELATIVE PERCENT 1 % (BEAKER) (test code = 437) NEUTROPHILS ABSOLUTE COUNT 3.40 K/ L 1.78-5.38 (BEAKER) (test code = 670) LYMPHOCYTES ABSOLUTE COUNT 0.72 K/ L 1.32-3.57 L (BEAKER) (test code = 414) MONOCYTES ABSOLUTE COUNT (BEAKER) 0.76 K/ L 0.30-0.82 (test code = 415) EOSINOPHILS ABSOLUTE COUNT 0.50 K/ L 0.04-0.54 (BEAKER) (test code = 416) BASOPHILS ABSOLUTE COUNT (BEAKER) 0.03 K/ L 0.01-0.08 (test code = 417) IMMATURE GRANULOCYTES-RELATIVE 1 % 0-1 PERCENT (BEAKER) (test code = 2801) BASIC METABOLIC [id number] 04:36:00 Test Item Value Reference Range Interpretation Comments SODIUM (BEAKER) 138 meq/L 136-145 (test code = 381) POTASSIUM (BEAKER) 4.2 meq/L 3.5-5.1 (test code = 379) CHLORIDE (BEAKER) 104 meq/L 98-107 (test code = 382) CO2 (BEAKER) (test 28 meq/L 22-29 code = 355) BLOOD UREA NITROGEN 16 mg/dL 7-21 (BEAKER) (test code = 354) CREATININE (BEAKER) 0.79 mg/dL 0.57-1.25 (test code = 358) GLUCOSE RANDOM 102 mg/dL 70-105 (BEAKER) (test code = 652) CALCIUM (BEAKER) 8.8 mg/dL 8.4-10.2 (test code = 697) EGFR (BEAKER) (test 93 mL/min/1.73 ESTIMA VIKKI GFR IS code = 1092) sq m NOT ACCURATE CREATININE CLEARANCE IN PREDICTING GLOMERULAR FILTRATION RATE . ESTIMATED GFR I S NOT APPLICABLE FOR DIALYSIS PATIEN TS. Specimen slightly ictericB-TYPE NATRIURETIC FACTOR (BNP)2017-07-24 04:34:00 Test Item Value Reference Range Interpretation Comments B-TYPE NATRIURETIC PEPTIDE (BEAKER) 190 pg/mL 0-100 H (test code = 700) [id number] 07:02:00 Test Item Value Reference Range Interpretation Comments CORTISOL, TOTAL (BEAKER) (test 12.9 ug/dL 3.7-19.4 code = 2755) CBC (HEMOGRAM ONLY)2017-07-23 06:17:00 Test Item Value Reference Range Interpretation Comments WHITE BLOOD CELL COUNT (BEAKER) 6.3 K/ L 3.5-10.5 (test code = 775) RED BLOOD CELL COUNT (BEAKER) 2.84 M/ L 4.63-6.08 L (test code = 761) HEMOGLOBIN (BEAKER) (test code = 9.3 GM/DL 13.7-17.5 L 410) HEMATOCRIT (BEAKER) (test code = 28.1 % 40.1-51.0 L 411) MEAN CORPUSCULAR VOLUME (BEAKER) 98.9 fL 79.0-92.2 H (test code = 753) MEAN CORPUSCULAR HEMOGLOBIN 32.7 pg 25.7-32.2 H (BEAKER) (test code = 751) MEAN CORPUSCULAR HEMOGLOBIN CONC 33.1 GM/DL 32.3-36.5 (BEAKER) (test code = 752) RED CELL DISTRIBUTION WIDTH 14.8 % 11.6-14.4 H (BEAKER) (test code = 412) PLATELET COUNT (BEAKER) (test 136 K/CU MM 150-450 L code = 756) MEAN PLATELET VOLUME (BEAKER) 9.9 fL 9.4-12.4 (test code = 754) NUCLEATED RED BLOOD CELLS 0 /100 WBC 0-0 (BEAKER) (test code = 413) CT, CTA, [id number] 16:16:00Addendum BeginsREPORT STATUS:A Addendum: July 22, 2017 at 1620 hours I have reviewed the CT images for this study and I concur with the nonvascular imaging findings as dictated. Si gned: Sandip Christianson MDReport Verified Date/Time: 07/22/2017 16:16:14 Reading Location: [place] [address] Angio Body Reading RoomAddendum EndsFINAL REPORT CT [...] bypass surgery. The internal mammary arteries are nondalton. A bypass graft is identified, that is [...] area is 77 mm where by planimetry. Aort ic valve Agatston score is approximately 2064. The [...] 34.3 mmThe sinus of Valsalva diameter, LCC (diastole): 34.4 mmThe sinus of Valsalva diameter, NCC (diastole): 33.1 [...] seen and may suggest hematoma. This is l ocated at image 568. See arrows in PACS [...] An addendum will be dictated by the Manager Target Radiologist regarding the nonvascular findings. Signed: Abdoul Galloway MDReport Verified Date/Time: 07/22/2017 15:43:41 Reading Location: [place] [address], CTA [id number] 16:16:00TAVRAddendum BeginsREPORT STATUS:A Addendum: July 22, 2017 at 1620 hours I have reviewed the CT images for this study and I concur with the nonvascular imaging findings as dictated. Si gned: Sandip Christianson MDReport Verified Date/Time: 07/22/2017 16:16:14 Reading Location: [place] [address] Angio Body Reading RoomAddendum EndsFINAL REPORT CT [...] bypass surgery. The internal mammary arteries are nondalton. A bypass graft is identified, that is [...] area is 77 mm where by planimetry. Aort ic valve Agatston score is approximately 2064. The [...] 34.3 mmThe sinus of Valsalva diameter, LCC (diastole): 34.4 mmThe sinus of Valsalva diameter, NCC (diastole): 33.1 [...] seen and may suggest hematoma. This is l ocated at image 568. See arrows in PACS [...] An addendum will be dictated by the Manager Target Radiologist regarding the nonvascular findings. Signed: Abdoul Galloway MDReport Verified Date/Time: 07/22/2017 15:43:41 Reading Location: [place] [address] Cardiology MRI [facility] METABOLIC [id number] 05:06:00 Test Item Value Reference Range Interpretation Comments SODIUM (BEAKER) 139 meq/L 136-145 (test code = 381) POTASSIUM (BEAKER) 4.4 meq/L 3.5-5.1 (test code = 379) CHLORIDE (BEAKER) 106 meq/L 98-107 (test code = 382) CO2 (BEAKER) (test 24 meq/L 22- code = 355) BLOOD UREA NITROGEN 20 mg/dL 7-21 (BEAKER) (test code = 354) CREATININE (BEAKER) 0.80 mg/dL 0.57-1.25 (test code = 358) GLUCOSE RANDOM 110 mg/dL 70-105 H (BEAKER) (test code = 652) CALCIUM (BEAKER) 9.3 mg/dL 8.4-10.2 (test code = 697) EGFR (BEAKER) (test 92 mL/min/1.73 ESTIMA VIKKI GFR IS code = 1092) sq m NOT ACCURATE CREATININE CLEARANCE IN PREDICTING GLOMERULAR FILTRATION RATE . ESTIMATED GFR I S NOT APPLICABLE FOR DIALYSIS PATIEN TS. Specimen slightly ictericB-TYPE NATRIURETIC FACTOR (BNP)2017-07-22 05:00:00 Test Item Value Reference Range Interpretation Comments B-TYPE NATRIURETIC PEPTIDE (BEAKER) 475 pg/mL 0-100 H (test code = 700) POCT-GLUCOSE [id number] 20:48:00 Test Item Value Reference Range Interpretation Comments POC-GLUCOSE METER 133 mg/dL 70-110 H TESTED AT [facility] 6720 (BEAKER) (test code = TEX HYDE MD 1538) [address] [id number] 06:17:00 Test Item Value Reference Range Interpretation Comments PHOSPHORUS (BEAKER) (test code = 2.3 mg/dL 2.3-4.7 604) [id number] 06:17:00 Test Item Value Reference Range Interpretation Comments MAGNESIUM (BEAKER) (test code = 2.2 mg/dL 1.6-2.6 627) BASIC METABOLIC [id number] 06:17:00 Test Item Value Reference Range Interpretation Comments SODIUM (BEAKER) 135 meq/L 136-145 L (test code = 381) POTASSIUM (BEAKER) 4.3 meq/L 3.5-5.1 (test code = 379) CHLORIDE (BEAKER) 106 meq/L 98-107 (test code = 382) CO2 (BEAKER) (test 23 meq/L - code = 355) BLOOD UREA NITROGEN 32 mg/dL 7-21 H (BEAKER) (test code = 354) CREATININE (BEAKER) 1.06 mg/dL 0.57-1.25 (test code = 358) GLUCOSE RANDOM 107 mg/dL 70-105 H (BEAKER) (test code = 652) CALCIUM (BEAKER) 8.6 mg/dL 8.4-10.2 (test code = 697) EGFR (BEAKER) (test 66 mL/min/1.73 ESTIMA VIKKI GFR IS code = 1092) sq m NOT ACCURATE CREATININE CLEARANCE IN PREDICTING GLOMERULAR FILTRATION RATE . ESTIMATED GFR I S NOT APPLICABLE FOR DIALYSIS PATIEN TS. CBC W/PLT COUNT & AUTO [id number] 05:58:00 Test Item Value Reference Range Interpretation Comments WHITE BLOOD CELL COUNT (BEAKER) 4.5 K/ L 3.5-10.5 (test code = 775) RED BLOOD CELL COUNT (BEAKER) 2.34 M/ L 4.63-6.08 L (test code = 761) HEMOGLOBIN (BEAKER) (test code = 7.8 GM/DL 13.7-17.5 L 410) HEMATOCRIT (BEAKER) (test code = 23.7 % 40.1-51.0 L 411) MEAN CORPUSCULAR VOLUME (BEAKER) 101.3 fL 79.0-92.2 H (test code = 753) MEAN CORPUSCULAR HEMOGLOBIN 33.3 pg 25.7-32.2 H (BEAKER) (test code = 751) MEAN CORPUSCULAR HEMOGLOBIN CONC 32.9 GM/DL 32.3-36.5 (BEAKER) (test code = 752) RED CELL DISTRIBUTION WIDTH 14.7 % 11.6-14.4 H (BEAKER) (test code = 412) PLATELET COUNT (BEAKER) (test code 76 K/CU MM 150-450 L = 756) MEAN PLATELET VOLUME (BEAKER) 10.0 fL 9.4-12.4 (test code = 754) NUCLEATED RED BLOOD CELLS (BEAKER) 0 /100 WBC 0-0 (test code = 413) NEUTROPHILS RELATIVE PERCENT 63 % (BEAKER) (test code = 429) LYMPHOCYTES RELATIVE PERCENT 14 % (BEAKER) (test code = 430) MONOCYTES RELATIVE PERCENT 13 % (BEAKER) (test code = 431) EOSINOPHILS RELATIVE PERCENT 9 % (BEAKER) (test code = 432) BASOPHILS RELATIVE PERCENT 0 % (BEAKER) (test code = 437) NEUTROPHILS ABSOLUTE COUNT 2.82 K/ L 1.78-5.38 (BEAKER) (test code = 670) LYMPHOCYTES ABSOLUTE COUNT 0.61 K/ L 1.32-3.57 L (BEAKER) (test code = 414) MONOCYTES ABSOLUTE COUNT (BEAKER) 0.59 K/ L 0.30-0.82 (test code = 415) EOSINOPHILS ABSOLUTE COUNT 0.39 K/ L 0.04-0.54 (BEAKER) (test code = 416) BASOPHILS ABSOLUTE COUNT (BEAKER) 0.01 K/ L 0.01-0.08 (test code = 417) IMMATURE GRANULOCYTES-RELATIVE 1 % 0-1 PERCENT (BEAKER) (test code = 2801) [id number] 05:42:00 Test Item Value Reference Range Interpretation Comments MAGNESIUM (BEAKER) (test code = 2.2 mg/dL 1.6-2.6 627) BASIC METABOLIC [id number] 05:42:00 Test Item Value Reference Range Interpretation Comments SODIUM (BEAKER) 135 meq/L 136-145 L (test code = 381) POTASSIUM (BEAKER) 4.2 meq/L 3.5-5.1 (test code = 379) CHLORIDE (BEAKER) 106 meq/L 98-107 (test code = 382) CO2 (BEAKER) (test 23 meq/L 22-29 code = 355) BLOOD UREA NITROGEN 41 mg/dL 7-21 H (BEAKER) (test code = 354) CREATININE (BEAKER) 1.43 mg/dL 0.57-1.25 H (test code = 358) GLUCOSE RANDOM 118 mg/dL 70-105 H (BEAKER) (test code = 652) CALCIUM (BEAKER) 8.4 mg/dL 8.4-10.2 (test code = 697) EGFR (BEAKER) (test 47 mL/min/1.73 ESTIMA VIKKI GFR IS code = 1092) sq m NOT ACCURATE CREATININE CLEARANCE IN PREDICTING GLOMERULAR FILTRATION RATE . ESTIMATED GFR I S NOT APPLICABLE FOR DIALYSIS PATIEN TS. CBC W/PLT COUNT & AUTO [id number] 08:51:00 Test Item Value Reference Range Interpretation Comments WHITE BLOOD CELL COUNT (BEAKER) 4.8 K/ L 3.5-10.5 (test code = 775) RED BLOOD CELL COUNT (BEAKER) 2.42 M/ L 4.63-6.08 L (test code = 761) HEMOGLOBIN (BEAKER) (test code = 8.0 GM/DL 13.7-17.5 L 410) HEMATOCRIT (BEAKER) (test code = 24.6 % 40.1-51.0 L 411) MEAN CORPUSCULAR VOLUME (BEAKER) 101.7 fL 79.0-92.2 H (test code = 753) MEAN CORPUSCULAR HEMOGLOBIN 33.1 pg 25.7-32.2 H (BEAKER) (test code = 751) MEAN CORPUSCULAR HEMOGLOBIN CONC 32.5 GM/DL 32.3-36.5 (BEAKER) (test code = 752) RED CELL DISTRIBUTION WIDTH 15.2 % 11.6-14.4 H (BEAKER) (test code = 412) PLATELET COUNT (BEAKER) (test code 62 K/CU MM 150-450 L = 756) MEAN PLATELET VOLUME (BEAKER) 10.7 fL 9.4-12.4 (test code = 754) NUCLEATED RED BLOOD CELLS (BEAKER) 0 /100 WBC 0-0 (test code = 413) NEUTROPHILS RELATIVE PERCENT 72 % (BEAKER) (test code = 429) LYMPHOCYTES RELATIVE PERCENT 8 % (BEAKER) (test code = 430) MONOCYTES RELATIVE PERCENT 13 % (BEAKER) (test code = 431) EOSINOPHILS RELATIVE PERCENT 7 % (BEAKER) (test code = 432) BASOPHILS RELATIVE PERCENT 0 % (BEAKER) (test code = 437) NEUTROPHILS ABSOLUTE COUNT 3.46 K/ L 1.78-5.38 (BEAKER) (test code = 670) LYMPHOCYTES ABSOLUTE COUNT 0.36 K/ L 1.32-3.57 L (BEAKER) (test code = 414) MONOCYTES ABSOLUTE COUNT (BEAKER) 0.64 K/ L 0.30-0.82 (test code = 415) EOSINOPHILS ABSOLUTE COUNT 0.33 K/ L 0.04-0.54 (BEAKER) (test code = 416) BASOPHILS ABSOLUTE COUNT (BEAKER) 0.01 K/ L 0.01-0.08 (test code = 417) IMMATURE GRANULOCYTES-RELATIVE 0 % 0-1 PERCENT (BEAKER) (test code = 2801) BASIC METABOLIC [id number] 06:59:00 Test Item Value Reference Range Interpretation Comments SODIUM (BEAKER) 134 meq/L 136-145 L (test code = 381) POTASSIUM (BEAKER) 4.3 meq/L 3.5-5.1 (test code = 379) CHLORIDE (BEAKER) 106 meq/L 98-107 (test code = 382) CO2 (BEAKER) (test 22 meq/L 22-29 code = 355) BLOOD UREA NITROGEN 48 mg/dL 7-21 H (BEAKER) (test code = 354) CREATININE (BEAKER) 2.22 mg/dL 0.57-1.25 H (test code = 358) GLUCOSE RANDOM 151 mg/dL 70-105 H (BEAKER) (test code = 652) CALCIUM (BEAKER) 8.1 mg/dL 8.4-10.2 L (test code = 697) EGFR (BEAKER) (test 28 mL/min/1.73 ESTIMA VIKKI GFR IS code = 1092) sq m NOT ACCURATE CREATININE CLEARANCE IN PREDICTING GLOMERULAR FILTRATION RATE . ESTIMATED GFR I S NOT APPLICABLE FOR DIALYSIS PATIEN TS. Specimen slightly [id number] 06:50:00 Test Item Value Reference Range Interpretation Comments MAGNESIUM (BEAKER) (test code = 2.2 mg/dL 1.6-2.6 627) [id number] 14:04:00 Test Item Value Reference Range Interpretation Comments CORTISOL, TOTAL (BEAKER) (test 14.3 ug/dL 3.7-19.4 code = 2755) B-TYPE NATRIURETIC FACTOR (BNP)2017-07-17 05:11:00 Test Item Value Reference Range Interpretation Comments B-TYPE NATRIURETIC PEPTIDE (BEAKER) 462 pg/mL 0-100 H (test code = 700) URIC [id number] 05:09:00 Test Item Value Reference Range Interpretation Comments URIC ACID (BEAKER) (test code = 9.8 mg/dL 2.6-7.2 H 773) [id number] 05:09:00 Test Item Value Reference Range Interpretation Comments MAGNESIUM (BEAKER) (test code = 2.0 mg/dL 1.6-2.6 627) COMPREHENSIVE METABOLIC [id number] 05:09:00 Test Item Value Reference Range Interpretation Comments TOTAL PROTEIN 5.4 gm/dL 6.0-8.3 L (BEAKER) (test code = 770) ALBUMIN (BEAKER) 3.2 g/dL 3.5-5.0 L (test code = 1145) ALKALINE PHOSPHATASE 62 U/L 40-150 (BEAKER) (test code = 346) BILIRUBIN TOTAL 1.5 mg/dL 0.2-1.2 H (BEAKER) (test code = 377) SODIUM (BEAKER) (test 137 meq/L 136-145 code = 381) POTASSIUM (BEAKER) 4.2 meq/L 3.5-5.1 (test code = 379) CHLORIDE (BEAKER) 107 meq/L 98-107 (test code = 382) CO2 (BEAKER) (test 21 meq/L 22-29 L code = 355) BLOOD UREA NITROGEN 43 mg/dL 7-21 H (BEAKER) (test code = 354) CREATININE (BEAKER) 2.58 mg/dL 0.57-1.25 H (test code = 358) GLUCOSE RANDOM 201 mg/dL 70-105 H (BEAKER) (test code = 652) CALCIUM (BEAKER) 8.1 mg/dL 8.4-10.2 L (test code = 697) AST (SGOT) (BEAKER) 28 U/L 5-34 (test code = 353) ALT (SGPT) (BEAKER) 9 U/L 6-55 (test code = 347) EGFR (BEAKER) (test 24 mL/min/1.73 ESTIMA VIKKI GFR IS code = 1092) sq m NOT ACCURATE CREATININE CLEARANCE IN PREDICTING GLOMERULAR FILTRATION RATE . ESTIMATED GFR I S NOT APPLICABLE FOR DIALYSIS PATIEN TS. CBC W/PLT COUNT & AUTO [id number] 04:52:00 Test Item Value Reference Range Interpretation Comments WHITE BLOOD CELL COUNT (BEAKER) 7.5 K/ L 3.5-10.5 (test code = 775) RED BLOOD CELL COUNT (BEAKER) 2.20 M/ L 4.63-6.08 L (test code = 761) HEMOGLOBIN (BEAKER) (test code = 7.4 GM/DL 13.7-17.5 L 410) HEMATOCRIT (BEAKER) (test code = 23.1 % 40.1-51.0 L 411) MEAN CORPUSCULAR VOLUME (BEAKER) 105.0 fL 79.0-92.2 H (test code = 753) MEAN CORPUSCULAR HEMOGLOBIN 33.6 pg 25.7-32.2 H (BEAKER) (test code = 751) MEAN CORPUSCULAR HEMOGLOBIN CONC 32.0 GM/DL 32.3-36.5 L (BEAKER) (test code = 752) RED CELL DISTRIBUTION WIDTH 14.0 % 11.6-14.4 (BEAKER) (test code = 412) PLATELET COUNT (BEAKER) (test code 84 K/CU MM 150-450 L = 756) MEAN PLATELET VOLUME (BEAKER) 11.1 fL 9.4-12.4 (test code = 754) NUCLEATED RED BLOOD CELLS (BEAKER) 0 /100 WBC 0-0 (test code = 413) NEUTROPHILS RELATIVE PERCENT 77 % (BEAKER) (test code = 429) LYMPHOCYTES RELATIVE PERCENT 8 % (BEAKER) (test code = 430) MONOCYTES RELATIVE PERCENT 13 % (BEAKER) (test code = 431) EOSINOPHILS RELATIVE PERCENT 1 % (BEAKER) (test code = 432) BASOPHILS RELATIVE PERCENT 0 % (BEAKER) (test code = 437) NEUTROPHILS ABSOLUTE COUNT 5.81 K/ L 1.78-5.38 H (BEAKER) (test code = 670) LYMPHOCYTES ABSOLUTE COUNT 0.61 K/ L 1.32-3.57 L (BEAKER) (test code = 414) MONOCYTES ABSOLUTE COUNT (BEAKER) 0.96 K/ L 0.30-0.82 H (test code = 415) EOSINOPHILS ABSOLUTE COUNT 0.08 K/ L 0.04-0.54 (BEAKER) (test code = 416) BASOPHILS ABSOLUTE COUNT (BEAKER) 0.03 K/ L 0.01-0.08 (test code = 417) IMMATURE GRANULOCYTES-RELATIVE 0 % 0-1 PERCENT (BEAKER) (test code = 2801) RAD, CHEST, 1 VIEW, NON [id number] 04:01:00Reason for exam:- >oliguriaShould this be performed at the bedside?->YesFINAL REPORT CLINICAL INDICATION: Oliguria Comparison: 07/16/2017 The patient is rotated to the right in the left costophrenic sulcus is excluded. The cardiomediastinal contours are grossly stable. Central pulmonary vascular congestion and bilateral parenchymal opacities are similar within variation of acquisition technique. There is no pneumothorax. A right IJ CVC remains in pl [facility]. Signed: Dawson Barron MDReport Verified Date/Time: 07/17/2017 04:01:10 Reading Location: [address] Reading Room SODIUM, RANDOM URINE 2017-07-16 19:25:00 Test Item Value Reference Range Interpretation Comments SODIUM URINE (BEAKER) (test code = < meq/L 243) Reference Range: No NormalsCREATININE, RANDOM [id number] 19:14:00 Test Item Value Reference Range Interpretation Comments CREATININE URINE (BEAKER) (test 131.4 mg/dL code = 375) Reference Range: No NormalsPROTEIN, RANDOM [id number] 19:14:00 Test Item Value Reference Range Interpretation Comments PROTEIN, URINE (BEAKER) (test code = 23 mg/dL 0-14 H 1569) OSMOLALITY, [id number] 19:00:00 Test Item Value Reference Range Interpretation Comments OSMOLALITY URINE (BEAKER) (test 346 mOsm/kg 40-1400 code = 614) RAD, CHEST, 1 VIEW, NON [id number] 16:22:00Reason for exam:->central line placementShould this be performed at the bedside?->YesFINAL REPORT TECHNIQUE: Frontal chest radiograph dated 07/16/2017. CLINICAL HI STORY: Central line placement COMPARISON STUDY: Chest radiograph performed earlier the same day. IMPRESSION:Right-sided [place] catheter tip projects over the affected region of superior vena cava/right atrial junction. There is streaky atelectasis in the left lung base. No focal consolidation. No pleural effusion or pneumothorax. Cardiomediastinal silhouette is normal in size. No pulmonary edema.Midline sternotomy wires are intact and well aligned. No fracture. Bones are osteopenic. Signed: Ravi Griffin MDReport Verified Date/Time: 07/16/2017 16:22:02 Reading Location: [facility] Radiology Reading Room RAD, CHEST, 1 VIEW, NON [id number] 09:32:00Reason for exam:->cxfShould this be performed at the bedside?->YesFINAL REPORT CLINICAL HISTORY: cxf TECHNIQUE: 1 view of the chest. COMPARISON: None IMPRESSION: Pulmonary vascular congestion is noted with diffuse bilateral interstitial opacities and left lung atelectasis. There is blunting of the left costophrenic angle. The cardiomediastinal silhouette is magnified by technique with sternotomy wires. Signed: Partha Abreu MDReport Verified Date/Time: 07/16/2017 09:32:51 Reading Location: [facility] Radiology Reading Room B-TYPE NATRIURETIC FACTOR (BNP)2017-07-16 02:38:00 Test Item Value Reference Range Interpretation Comments B-TYPE NATRIURETIC PEPTIDE (BEAKER) 251 pg/mL 0-100 H (test code = 700) BASIC METABOLIC [id number] 02:32:00 Test Item Value Reference Range Interpretation Comments SODIUM (BEAKER) 142 meq/L 136-145 (test code = 381) POTASSIUM (BEAKER) 4.0 meq/L 3.5-5.1 Specimen slightly (test code = 379) hemolyzed CHLORIDE (BEAKER) 106 meq/L 98-107 (test code = 382) CO2 (BEAKER) (test 23 meq/L 22-29 code = 355) BLOOD UREA NITROGEN 26 mg/dL 7-21 H (BEAKER) (test code = 354) CREATININE (BEAKER) 1.41 mg/dL 0.57-1.25 H Specimen slightly (test code = 358) hemolyzed GLUCOSE RANDOM 152 mg/dL 70-105 H (BEAKER) (test code = 652) CALCIUM (BEAKER) 8.8 mg/dL 8.4-10.2 (test code = 697) EGFR (BEAKER) (test 48 mL/min/1.73 ESTIMA VIKKI GFR IS code = 1092) sq m NOT ACCURATE CREATININE CLEARANCE IN PREDICTING GLOMERULAR FILTRATION RATE . ESTIMATED GFR I S NOT APPLICABLE FOR DIALYSIS PATIEN TS. Specimen slightly ictericLACTIC ACID, VENOUS, WHOLE [id number] 02:28:00 Test Item Value Reference Range Interpretation Comments LACTATE BLOOD VENOUS 2.1 mmol/L 0.5-2.2 Specime n slightly (2) (BEAKER) (test hemolyzed code = 2872) Effective 07/04/2015: Units/Reference Range ChangeNew: 0.5-2.2 mmol/L Previous: 5-20 mg/dLCBC (HEMOGRAM ONLY)2017-07-16 02:02:00 Test Item Value Reference Range Interpretation Comments WHITE BLOOD CELL COUNT (BEAKER) 13.3 K/ L 3.5-10.5 H (test code = 775) RED BLOOD CELL COUNT (BEAKER) 2.79 M/ L 4.63-6.08 L (test code = 761) HEMOGLOBIN (BEAKER) (test code = 9.5 GM/DL 13.7-17.5 L 410) HEMATOCRIT (BEAKER) (test code = 29.4 % 40.1-51.0 L 411) MEAN CORPUSCULAR VOLUME (BEAKER) 105.4 fL 79.0-92.2 H (test code = 753) MEAN CORPUSCULAR HEMOGLOBIN 34.1 pg 25.7-32.2 H (BEAKER) (test code = 751) MEAN CORPUSCULAR HEMOGLOBIN CONC 32.3 GM/DL 32.3-36.5 (BEAKER) (test code = 752) RED CELL DISTRIBUTION WIDTH 13.7 % 11.6-14.4 (BEAKER) (test code = 412) PLATELET COUNT (BEAKER) (test 138 K/CU MM 150-450 L code = 756) MEAN PLATELET VOLUME (BEAKER) 11.2 fL 9.4-12.4 (test code = 754) NUCLEATED RED BLOOD CELLS 0 /100 WBC 0-0 (BEAKER) (test code = 413) HEMOGLOBIN AND [id number] 19:53:00 Test Item Value Reference Range Interpretation Comments HEMOGLOBIN (BEAKER) (test code = 9.4 GM/DL 13.7-17.5 L 410) HEMATOCRIT (BEAKER) (test code = 29.0 % 40.1-51.0 L 411) B-TYPE NATRIURETIC FACTOR (BNP)2017-07-15 16:30:00 Test Item Value Reference Range Interpretation Comments B-TYPE NATRIURETIC PEPTIDE (BEAKER) 155 pg/mL 0-100 H (test code = 700) [id number] 16:23:00 Test Item Value Reference Range Interpretation Comments MAGNESIUM (BEAKER) 2.0 mg/dL 1.6-2.6 Specimen slightly (test code = 627) hemolyzed BASIC METABOLIC [id number] 16:23:00 Test Item Value Reference Range Interpretation Comments SODIUM (BEAKER) 138 meq/L 136-145 (test code = 381) POTASSIUM (BEAKER) 3.9 meq/L 3.5-5.1 Specimen slightly (test code = 379) hemolyzed CHLORIDE (BEAKER) 103 meq/L 98-107 (test code = 382) CO2 (BEAKER) (test 26 meq/L 22-29 code = 355) BLOOD UREA NITROGEN 21 mg/dL 7-21 (BEAKER) (test code = 354) CREATININE (BEAKER) 1.00 mg/dL 0.57-1.25 Specimen slightly (test code = 358) hemolyzed GLUCOSE RANDOM 145 mg/dL 70-105 H (BEAKER) (test code = 652) CALCIUM (BEAKER) 8.9 mg/dL 8.4-10.2 (test code = 697) EGFR (BEAKER) (test 71 mL/min/1.73 ESTIMA VIKKI GFR IS code = 1092) sq m NOT ACCURATE CREATININE CLEARANCE IN PREDICTING GLOMERULAR FILTRATION RATE . ESTIMATED GFR I S NOT APPLICABLE FOR DIALYSIS PATIEN TS. Specimen slightly ictericLACTIC ACID, VENOUS, WHOLE [id number] 16:19:00 Test Item Value Reference Range Interpretation Comments LACTATE BLOOD VENOUS 1.7 mmol/L 0.5-2.2 Specime n slightly (2) (BEAKER) (test hemolyzed code = 2872) Effective 07/04/2015: Units/Reference Range ChangeNew: 0.5-2.2 mmol/L Previous: 5-20 mg/dLSpecimen slightly ictericCBC (HEMOGRAM ONLY)2017-07-15 16:09:00 Test Item Value Reference Range Interpretation Comments WHITE BLOOD CELL COUNT (BEAKER) 10.6 K/ L 3.5-10.5 H (test code = 775) RED BLOOD CELL COUNT (BEAKER) 2.85 M/ L 4.63-6.08 L (test code = 761) HEMOGLOBIN (BEAKER) (test code = 9.7 GM/DL 13.7-17.5 L 410) HEMATOCRIT (BEAKER) (test code = 29.5 % 40.1-51.0 L 411) MEAN CORPUSCULAR VOLUME (BEAKER) 103.5 fL 79.0-92.2 H (test code = 753) MEAN CORPUSCULAR HEMOGLOBIN 34.0 pg 25.7-32.2 H (BEAKER) (test code = 751) MEAN CORPUSCULAR HEMOGLOBIN CONC 32.9 GM/DL 32.3-36.5 (BEAKER) (test code = 752) RED CELL DISTRIBUTION WIDTH 13.4 % 11.6-14.4 (BEAKER) (test code = 412) PLATELET COUNT ([facility]) (test 127 K/CU MM 150-450 L code = 756) MEAN PLATELET VOLUME (AKER) 11.5 fL 9.4-12.4 (test code = 754) NUCLEATED RED BLOOD CELLS 0 /100 WBC 0-0 ([facility]) (test code = 413) [id number] 12:47:00 Test Item Value Reference Range Interpretation Comments ACTIVATED CLOTTING TIME 224 sec TEST ED AT [place] [address] ([facility]) (test code = TEX HYDE [facility]) [id number] 12:47:00 Test Item Value Reference Range Interpretation Comments ACTIVATED CLOTTING TIME 257 sec TEST ED AT [place] [address] ([facility]) (test code = [place] [facility]) [id number] 12:47:00 Test Item Value Reference Range Interpretation Comments ACTIVATED CLOTTING TIME 219 sec TEST ED AT [place] [address] ([facility]) (test code = [place] [address]) [id number]
[2020-01-17] MEDS ORDERED: ONDANSETRON 4 MG/2 ML VIAL ONE (18:25)
[2020-01-17 18:45] LABS: Absolute Lymphocytes (CBC) 0.4 K/uL (0.7-4.9); Basophils % 0.3 % (0-1.3); Hematocrit 35.2 % (39.6-49.0); Lymphocytes % 8.8 % (15.3-44.8); MPV 9.5 fL (7.6-11.3); Protime INR 1.08
[2020-01-17 18:59] LABS: Bilirubin Direct 0.5 mg/dL (0-0.2); Bilirubin Total 2.1 mg/dL (0.2-1.0); Magnesium 2.3 mg/dL (1.8-2.4); Potassium 4.7 mmol/L (3.5-5.1); Protein, Total 7.9 g/dL (6.4-8.2)
--- NOTE | 2020-01-17 19:24 | RAD REPORT ---
EXAM DESCRIPTION: RAD - Chest Single View - 01/17/2020 7:14 pm CLINICAL HISTORY: PAIN Chest pain. COMPARISON: Chest Single View dated 09/27/2018; Chest Pa And Lat (2 Views) dated 09/26/2018; Chest Sin gle View dated 09/23/2018; Chest Single View dated 09/17/2018 FINDINGS: Portable technique limits examination quality. Mild interstitial pulmonary edema seen. The heart is moderately enlarged in size. No displaced fractu res.Sternotomy wires are present. IMPRESSION: Mild CHF.
[2020-01-17 19:30] LABS: Blood Morphology Comment NOT SEEN (NOT SEEN); Platelet Estimate DECR; White Blood Cell Scan OK (OK)
--- NOTE | 2020-01-17 19:32 | RAD REPORT ---
EXAM DESCRIPTION: CT - Abdomen Pelvis Wo Contrast - 01/17/2020 7:21 pm CLINICAL HISTORY: Abdominal pain. ABD PAIN COMPARISON: Abdomen Pelvis Wo Contrast dated 09/09/2018 TECHNIQUE: CT imaging of the abdomen and pelvis was performed without contrast. Solid organ, bowel a nd vascular assessment is limited due to lack of IV and oral contrast. All CT scans are performed using dose optimization technique as appropriate and may include automated exposure control or mA/KV adjustment according to patient size. 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 Cholecystectomy. The liver contains a small low-density lesion the anterior right lobe, unchanged.The spleen, pancreas , adrenal glands and kidneys are within normal limits. Mildly prominent small bowel loops are present in the left abdomen. No free air is seen. Normal appen michael. Surgical clips are seen superior to the urinary bladder. Anastomosis is present involving rectum . Moderate lumbar degenerative changes. IMPRESSION: Mildly prominent small bowel loops are seen in the left abdomen. This could indicate a d eveloping small bowel obstruction. Suggest followup imaging in 24-48 hours for further assessment. A limited non-contrast examination was performed as detailed.
--- NOTE | 2020-01-17 19:48 | EDPHYS ---
Physician Documentation [facility] Name: Chris Mcwilliams Age: 89 yrs Sex: Male : 1930 Arrival Date: 01/17/2020 Time: 18:06 Bed 13 Private MD: ED Physician Jordy Aragon HPI: 01/16 20:08 This 89 yrs old Male presents to ER via EMS with complaints of kb Nausea/Vomiting. 20:08 The patient presents to the emergency department with nausea, vomiting, abdominal pain. kb Onset: The symptoms/episode began/occurred today, at 14:00. Possible causes: unknown. The symptoms are aggravated by nothing. The symptoms are alleviated by nothing. Associated signs and symptoms: Pertinent positives: abdominal pain, nausea, vomiting, Pertinent negatives: constipation, diarrhea, fever. Severity of symptoms: At their worst the symptoms were moderate in the emergency department the symptoms are unchanged. The patient has experienced similar episodes in the past, a few times. The patient has not recently seen a physician. Historical: - Allergies: 18:09 NKDA; em - PMHx: 18:09 Myocardial infarction; Atrial Fib; Diabetes - IDDM; Diverticulitis; Hyperlipidemia; em bowel obstruction; Hypertension; CHF; - Immunization history:: Adult Immunizations up to date. - Social history:: Smoking status: Patient denies any tobacco usage or history of. ROS: 20:07 Constitutional: Negative for fever, chills, and weight loss, Cardiovascular: Negative kb for chest pain, palpitations, and edema, Respiratory: Negative for shortness of breath, cough, wheezing, and pleuritic chest pain, Back: Negative for injury and pain, MS/Extremity: Negative for injury and deformity, Skin: Negative for injury, rash, and discoloration, Neuro: Negative for headache, weakness, numbness, tingling, and seizure. 20:07 Abdomen/GI: Positive for abdominal pain, nausea and vomiting, Negative for diarrhea, constipation. Exam: 20:07 Constitutional: This is a well developed, well nourished patient who is awake, alert, kb and in no acute distress. Head/Face: Normocephalic, atraumatic. Chest/axilla: Normal chest wall appearance and motion. Nontender with no deformity. No lesions are appreciated. Cardiovascular: Regular rate and rhythm with a normal S1 and S2. No gallops, murmurs, or rubs. Normal PMI, no JVD. No pulse deficits. Respiratory: Lungs have equal breath sounds bilaterally, clear to auscultation and percussion. No rales, rhonchi or wheezes noted. No increased work of breathing, no retractions or nasal flaring. Skin: Warm, dry with normal turgor. Normal color with no rashes, no lesions, and no evidence of cellulitis. MS/ Extremity: Pulses equal, no cyanosis. Neurovascular intact. Full, normal range of motion. Neuro: Awake and alert, GCS 15, oriented to person, place, time, and situation. Cranial nerves II-XII grossly intact. Motor strength 5/5 in all extremities. Sensory grossly intact. Cerebellar exam normal. Normal gait. 20:07 Abdomen/GI: Inspection: abdomen appears normal, Bowel sounds: normal, in all quadrants, Palpation: soft, in all quadrants, moderate abdominal tenderness, in all quadrants. Vital Signs: 18:06 BP 155 / 85; Pulse 90; Resp 20; Temp 98.7; Pulse Ox 98% on R/A; em 19:45 BP 152 / 59; Pulse 89; Resp 21; Pulse Ox 98% on 3 lpm NC; jb4 20:48 BP 163 / 71; Pulse 88; Resp 17; Pulse Ox 95% on R/A; jb4 MDM: 18:09 Patient medically screened. kb 18:43 Data reviewed: vital signs, nurses notes. Data interpreted: Pulse oximetry: on room air kb is 98 %. Interpretation: normal. 19:46 Counseling: I had a detailed discussion with the patient and/or guardian regarding: the kb historical points, exam findings, and any diagnostic results supporting the discharge/admit diagnosis, lab results, radiology results, the need for further work-up and treatment in the hospital. Physician consultation: A Radha EASLEY was contacted at 19:46, regarding admission, to the telemetry unit. patient's condition. 20:37 ED course: Pt does not want to stay in the hospital. I explained the risks of leaving kb AMA. Pt states he will return if symptoms worsen, but he does not want to stay overnight.. 01/16 18:12 Order name: Basic Metabolic Panel; Complete Time: 19:22 kb 01/16 18:12 Order name: CBC with Diff; Complete Time: 19:31 kb 01/16 18:12 Order name: Hepatic Function; Complete Time: 19:22 kb 01/16 18:12 Order name: Lipase; Complete Time: 19:22 kb 01/16 18:14 Order name: Magnesium; Complete Time: 19:22 kb 01/16 18:14 Order name: NT PRO-BNP; Complete Time: 19:22 kb 01/16 18:14 Order name: PT-INR; Complete Time: 18:53 kb 01/16 18:14 Order name: Troponin (emerg Dept Use Only); Complete Time: 19:22 kb 01/16 18:14 Order name: XRAY Chest (1 view); Complete Time: 19:30 kb 01/16 19:10 Order name: Abdomen ; Complete Time: 19:40 EDMS 01/16 19:30 Order name: CBC Smear Scan; Complete Time: 19:31 EDMS 01/16 18:12 Order name: IV Saline Lock; Complete Time: 18:45 kb 01/16 18:12 Order name: Labs collected and sent; Complete Time: 18:33 kb 01/16 18:14 Order name: EKG; Complete Time: 18:14 kb 01/16 18:14 Order name: Cardiac monitoring; Complete Time: 18:45 kb 01/16 18:14 Order name: EKG - Nurse/Tech; Complete Time: 18:45 kb 01/16 18:14 Order name: O2 Per Protocol; Complete Time: 18:47 kb 01/16 18:14 Order name: O2 Sat Monitoring; Complete Time: 18:45 kb Administered Medications: 18:13 Drug: Zofran (Ondansetron) 4 mg Route: IVP; Site: right antecubital; em 20:15 Follow up: Response: No adverse reaction; Nausea is decreased jb4 20:19 Drug: NS 0.9% 1000 ml Route: IV; Rate: 75 ml/hr; Site: right antecubital; jb4 20:32 Follow up: Response: No adverse reaction; IV Status: Order to discontinue infusion, PT jb4 leaving AMA.; IV Intake: 8.5ml Disposition: 01/17 08:31 Co-signature as Attending Physician, Jordy Aragon MD I agree with the assessment and kdr plan of care. Disposition: 01/17/20 20:34 Patient has left against medical advice. Impression: Generalized abdominal pain - possible developing SBO, Nausea with vomiting, unspecified. - Patients states they are going to Home. - Condition is Stable. - Discharge Instructions: Abdominal Pain, Adult, [id number]. - Prescriptions for Zofran 4 mg Oral Tablet - take 1 tablet by ORAL route every 6 hours As needed; 20 tablet. Follow up: Jas Garcia MD; When: As needed. - Problem is new. - Symptoms are unchanged. Signatures: Dispatcher [employer] [facility] Gisela Valdez, QUE-C TOY MAKER-Ckb Jordy Aragon MD MD [facility] Lance Herndon, RN RN em Deandre Raya RN RN jb4 Corrections: (The following items were deleted from the chart) 01/16 19:10 18:13 Abdomen Pelvis W Con+CT.RAD.BRZ ordered. [facility] 20:33 19:47 Hospitalization Ordered by A Radha EASLEY for Inpatient Admission. Preliminary kb diagnosis is Generalized abdominal pain - r/o small bowel obstruction; Nausea and vomiting. Bed requested for Telemetry/MedSurg (Inpatient). Status is Inpatient Admission. Condition is Stable. Problem is new. Symptoms are unchanged. kb 20:53 20:34 01/17/2020 20:34 Patients has left against medical advice. Impression: jb4 Generalized abdominal pain - possible developing SBO; Nausea with vomiting, unspecified. Patient states they are going to Home. Condition is Stable. Follow up: Jas Garcia; When: As needed. Problem is new. Symptoms are unchanged. kb
--- NOTE | 2020-01-17 19:48 | ER ---
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 Coronavirus screen: Client denies travel out of the [place] in the last 14 days. Ebola Screen: Patient negative for fever greater than or equal to 101.5 degrees Fahrenheit, and additional compatible Ebola Virus Disease symptoms Patient denies exposure to infectious person. Patient denies travel to an Ebola-affected area in the 21 days before illness onset. No symptoms or risks identified at this time. Initial Sepsis Screen: Does the patient meet any 2 criteria? No. Patient's initial sepsis screen is negative. Does the patient have a suspected source of infection? No. Patient's initial sepsis screen is negative. Risk Assessment: Do you want to hurt yourself or someone else? Patient reports no desire to harm self or others. Onset of symptoms was January 17, 2020. 18:06 Method Of Arrival: EMS: [facility] em 18:06 Acuity: BOB 3 em Historical: - Allergies: 18:09 NKDA; em - PMHx: 18:09 Myocardial infarction; Atrial Fib; Diabetes - IDDM; Diverticulitis; Hyperlipidemia; em bowel obstruction; Hypertension; CHF; - Immunization history:: Adult Immunizations up to date. - Social history:: Smoking status: Patient denies any tobacco usage or history of. Screenin:10 Abuse screen: Denies threats or abuse. Nutritional screening: No deficits noted. em Tuberculosis screening: No symptoms or risk factors identified. Fall Risk None identified. Assessment: 18:06 General: Appears uncomfortable, Behavior is calm, cooperative, Denies fever. Pain: em Complains of pain in abdomen. Neuro: Level of Consciousness is awake, alert, obeys commands, Oriented to person, place, time, situation. Cardiovascular: Capillary refill < 3 seconds Patient's skin is warm and dry. Respiratory: Airway is patent Respiratory effort is even, unlabored, Respiratory pattern is regular, symmetrical. GI: Abdomen is round non-distended, Abd is soft X 4 quads Abdomen is tender to palpation X 4 quads. Reports nausea, vomiting. Derm: Skin is intact, is fragile, is thin, Skin is pink, warm \T\ dry. Musculoskeletal: Capillary refill < 3 seconds. 19:10 Reassessment: Patient appears in no apparent distress at this time. Patient and/or jb4 family updated on plan of care and expected duration. Pain level reassessed. Patient is alert, oriented x 3, equal unlabored respirations, skin warm/dry/pink. Patient states feeling better. 19:45 Reassessment: Patient appears in no apparent distress at this time. Patient and/or jb4 family updated on plan of care and expected duration. Pain level reassessed. Patient is alert, oriented x 3, equal unlabored respirations, skin warm/dry/pink. Provider at the bedside explaining plan of care. 20:48 Reassessment: Patient appears in no apparent distress at this time. Patient and/or jb4 family updated on plan of care and expected duration. Pain level reassessed. Patient is alert, oriented x 3, equal unlabored respirations, skin warm/dry/pink. Pt verbalized understanding that he is leaving AMA, understands that symptoms may return or worsen up to the point of and to seek immediate medical attention should symptoms return or worsen. Pt verbalized understanding of instructions. IV removed, pt transferred to [facility] to wait for ride home. Vital Signs: 18:06 BP 155 / 85; Pulse 90; Resp 20; Temp 98.7; Pulse Ox 98% on R/A; em 19:45 BP 152 / 59; Pulse 89; Resp 21; Pulse Ox 98% on 3 lpm NC; jb4 20:48 BP 163 / 71; Pulse 88; Resp 17; Pulse Ox 95% on R/A; jb4 ED Course: 18:06 Patient arrived in ED. em 18:06 Maintain EMS IV. Dressing intact. Good blood return noted. Site clean \T\ dry. Gauge \T\ em site: 20 G RAC. 18:09 Gis[facility] Valdez [facility]C [facility]. kb 18:09 Jordy Aragon MD is Attending Physician. kb 18:09 Triage completed. em 18:09 Arm band placed on. em 18:10 Patient has correct armband on for positive identification. em 18:11 Lance Herndon, RN is Primary Nurse. em 19:15 XRAY Chest (1 view) In Process Unspecified. EDMS 19:21 Abdomen In Process Unspecified. EDMS 19:47 Jas Garcia MD is Hospitalizing Provider. kb 20:33 Jas Garcia MD is Referral Physician. kb 20:50 No provider procedures requiring assistance completed. IV discontinued, intact, jb4 bleeding controlled, No redness/swelling at site. Pressure dressing applied. Administered Medications: 18:13 Drug: Zofran (Ondansetron) 4 mg Route: IVP; Site: right antecubital; em 20:15 Follow up: Response: No adverse reaction; Nausea is decreased jb4 20:19 Drug: NS 0.9% 1000 ml Route: IV; Rate: 75 ml/hr; Site: right antecubital; jb4 20:32 Follow up: Response: No adverse reaction; IV Status: Order to discontinue infusion, PT jb4 leaving AMA.; IV Intake: 8.5ml Intake: 20:32 IV: 9ml; Total: 9ml. jb4 Outcome: 19:47 Decision to Hospitalize by Provider. kb 20:50 AMA AMA form signed jb4 20:50 Condition: stable 20:50 Discharge instructions given to patient, Instructed on follow up and referral plans. the need for admit, medication usage, Demonstrated understanding of instructions, follow-up care, medications, Prescriptions given X 1. 20:53 Patient left the ED. jb4 Signatures: Dispatcher [employer] [facility] Gisela Valdez, SQUASH CENTRE MANAGER-C SQUASH CENTRE MANAGER-Ckb Lance Herndon, RN RN Deandre Raya, RN RN jb4 Corrections: (The following items were deleted from the chart) 19:42 19:10 Reassessment: Patient appears in no apparent distress at this time. Patient jb4 and/or family updated on plan of care and expected duration. Pain level reassessed. Patient is alert, oriented x 3, equal unlabored respirations, skin warm/dry/pink. jb4 20:50 19:45 BP 152 / 59; Pulse 89bpm; Resp 21bpm; Pulse Ox 98% RA; jb4 jb4
[2020-01-17] MEDS ORDERED: NA CHLORIDE 0.9% 1,000 ML ONE (20:28)
--- NOTE | 2020-01-18 02:51 | HP ---
Date of Admission: 01/17/2020 Chief Complaint: Nausea, vomiting. History Of Present Illness: This is an 89-year-old male patient, came into emergency room with compl aints of abdominal pain, nausea, vomiting as of around 2 p.m. today. Denies any fever, chills, const ipation, or diarrhea. After the patient was evaluated in the emergency room, was admitted to the [facility]. Allergies: TO LEVAQUIN, CAUSING RASH. Medications: Vitamin B12 1000 mcg p.o. daily, torsemide 20 mg p.o. daily, tamsulosin 0.4 mg p.o. krystle ly, sucralfate 1 g p.o. 4 times a day, pantoprazole 40 mg p.o. daily, Nitrostat p.r.n., metoprolol ta rtrate 25 mg 2 times a day, folic acid 0.8 mg daily, ferrous sulfate 325 mg daily. Review of Systems: GI: As mentioned above. All other systems reviewed and negative. Past Medical History: Type 2 diabetes mellitus, hypertension, hyperlipidemia, coronary artery diseas e, aortic stenosis, carotid artery stenosis, bilateral gastroesophageal reflux disease, cirrhosis of liver, diverticulosis, benign prostatic hypertrophy, and pancytopenia. Past Surgical History: Significant for coronary artery stent placement and coronary artery bypass jean , heart wall surgery which was aortic wall replacement surgery in August 2017, and cholecystectomy . Family History: Father had stroke. Brother, Alzheimer disease. Sister, lung cancer. Social History: Prior history of smoking, not at present time. Use of alcohol negative. DICTATION ENDS HERE APOORVA/MODL Voice ID: [id number]
[2020-01-18 06:10] VITALS: TEMP 98.7
[2020-01-18 06:13] VITALS: BP 163/71; O2SAT 95
--- NOTE | 2020-01-19 06:09 | EKG ---
Test Date: 2020-01-17 Test Time: 18:19:55 Hydroelectric Systems Technician: JAMEL MEASUREMENT RESULTS: Intervals: Rate: 100 MA: QRSD: 156 QT: 348 QTc: 448 [place]: P: MA: QRS: -79 T: 101 INTERPRETIVE STATEMENTS: Atrial fibrillation Left axis deviation Right bundle branch block Minimal voltage criteria for LVH, may be normal variant Lateral infarct, age undetermined Inferior infarct, age undetermined Abnormal ECG Compared to ECG 08/22/2018 08:43:52 Left ventricular hypertrophy now present Myocardial infarct finding still present Electronically Signed On 01-19-20 06:03:31 TREE DRILLER by Guy Barnett
== END 2020-01-17 20:53 | disposition left against medical advice (07) ==
LOC: ER 18:01 → ERHOLD 20:33 → UNDOADMIN 20:33 → UNDODISIN 20:34
DX: R11.2 Nausea with vomiting, unspecified (principal); I10 Essential (primary) hypertension; E11.9 Type 2 diabetes mellitus without complications; Z95.1 Presence of aortocoronary bypass graft
CPT/HCPCS: 93005; 85025; 80048; 36415; 83735; 85610; 80076; 84484; 83690; 83880; 74176; 71045; 96374; 99284; J7030; J2405

== ENCOUNTER 2020-02-13 17:18 | Emergency (ER) | payer MEDICARE, BC ==
--- OUTSIDE RECORDS SUMMARY | 2020-02-13 17:20 | XMS REPORT | Clinical Summary ---
:1930 Author Organization [facility] Address [address] [place] [address] Care Team Providers Name Role Phone Alicia [...] YRS Completed 08/12/2016 Implants Implanted Type Area Direct Support Professional Device Shelf Model / Identifier Expiration Serial / Date Lot Mynxgrip Vascular Closure Device Cardiovascular Groin CARDINAL HLT H 05/31/2019 [id number] / Implanted: Qty: 1 on 07/15/2017 by Kris Greco MD at [facility] / [id number] Synergy Stents-Coronary Coronary [place] 04/01/2018 4 [id number] / Implanted: Qty: 1 on 07/15/2017 by Kris Greco MD at [facility] [employer] / [id number] Synergy Stents-Coronary Coronary [place] 05/19/2018 [facility] [id number] / Implanted: Qty: 1 on 07/15/2017 by Kris Greco MD at [facility] [employer] / [id number] Synergy Stents-Coronary Coronary [place] 12/24/2017 4 [id number] / Implanted: Qty: 1 on 07/15/2017 by Kris Greco MD at [facility] [employer] / [id number] Synergy Stents-Coronary Coronary [place] 02/18/2018 4 [id number] / Implanted: Qty: 1 on 07/15/2017 by Kris Greco MD at [facility] / [id number] Valve Heart Deepa 3 26mm [id number] - [id number] Valves N/A: Aorta SIFUENTES 05/20/2019 [id number] / Implanted: Qty: 1 on 09/10/2017 by Kris Greco MD at [facility] LIF[employer]CI [id number] / Description:Transcatheter heart valve Results Not on fileafter 02/12/2019 Insurance Payer Benefit Plan / Subscriber ID Effective Phone Address T ype Group Dates MEDICARE MEDICARE PART [id number] 1996-Prese Medicare B nt BLUE BCBS INDEMNITY [id number] 2016-Prese [phone] [address] PPO [place]OSS/BLUE [place] [id number] [place] [address] Advance Directives For more information, please contact: [phone] Code Status Date Activated Date Inactivated Comments [...]
--- OUTSIDE RECORDS SUMMARY | 2020-02-13 17:25 | XMS REPORT | Continuity of Care Document ---
:1930 Author Organization [facility] t Address [address] [place] [address] Care Team Providers Name Role Phone Alicia [...] kes - athy athy 00:00: Medical 00 [place] Acute Acute Disease Active [address] [facility] hypoxemic hypoxemic 1-03 [facility] - respirator respirator 00:00: Me dical y failure y failure 00 Cent er Acute Acute Disease Active [facility] encephalop encephalop 1-03 Sruthi kes - athy athy 00:00: Medical 00 [place] Acute Acute Disease Active 2019- [facility] encephalop encephalop 1-02 Sruthi kes - athy athy 00:00: Medical 00 [place] Generalize Generalize Disease Active 2019-[address] d weakness d weakness 1- Sruthi kes - 00:00: Medical 00 [place] Dementia Dementia Disease Active [facility] 00 [place] GI bleed GI bleed Disease Active 2018- [facility] - 00:[facility]: Medical 00 [place] 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 7-12 [facility] - 00:00: Medical 00 Center Coronary Coronary Disease Active [facility] artery artery 5-17 [facility] - disease disease 00:00: Medical due to due to 00 [place] calcified calcified coronary coronary lesion lesion Coronary [...] Atrial Atrial Disease Active St fibrillati fibrillati [facility] - on on [facility] Hyperlipid Hyperlipid Disease Active [facility] (acute GERARDO (acute Disease Active Overview : [facility] kidney kidney creatinin [facility] - injury) injury) e 1.0 to Medica l 2.58 Center Anemia Anemia Disease Active [facility] UGIB UGIB Disease Active [facility] ([facility] - gastrointe gastrointe Me dical stinal stinal Center bleed) bleed) Thrombocyt Thrombocyt Disease Active [facility] Pulmonary Pulmonary Disease Active [facility] hypertensi hypertensi [facility] - on on [facility] Advanced Advanced Disease Active [facility] Frailty Frailty Disease Active [facility] Allergies, Adverse Reactions, Alerts Allergy Allergy Status Severity Reaction(s) Onset Inactive Treating Comm ents Source Name Type Date Date Clinician Levoflox Propensi Active Rash [facility] 4-17 [facility] - adverse 00:00: Medical reaction 00 [place] s Metformi Propensi Active Rash [facility] n ty to 4-17 [facility] - adverse 00:00: Medical reaction 00 [place] s Social History Social Habit Start Date Stop Date Quantity Comments Source Sex Assigned At [facility] Tobacco use and 2018-08-23 2018-08-23 Never used [facility] - exposure 00:00:00 00:00:00 [facility] Alcohol intake 2018-08-23 2018-08-23 Current [facility] es - 00:00:00 00:00:00 non-drinker of Medical Ce nter alcohol (finding) Tobacco Comment 2017-08-24 2017-08-24 quit in [address] [facility] - 00[facility] Smoking Status Start Date Stop Date Source Former smoker 2018-08-23 00:00:00 2018-08-23 00:00:[address] [facility] Medications Ordered Filled [...] (test 127 mg/dL 70-110 H TESTED AT [facility] [address] [facility] code = 1538) [facility] 7703 0 POCT-GLUCOSE [id number] 08:51:00 Test Item Value Reference Range Interpretation Comments POC-GLUCOSE METER 104 mg/dL 70-110 TESTED AT [facility] 6720 ([facility]) (test code = TEX Shabazz [facility] 1538) [address] BASIC METABOLIC [id number] 07:00:00 Test Item Value Reference Range Interpretation [...] 0-0 (BEAKER) (test code = 413) POCT-GLUCOSE [id number] 21:00:00 Test Item Value Reference Range Interpretation Comments POC-GLUCOSE METER 133 mg/dL 70-110 H TESTED AT [place] [address] ([facility]) (test code = TEX Shabazz [facility] 1538) [address] POCT-GLUCOSE [id number] 16:55:00 Test Item Value Reference Range Interpretation Comments POC-GLUCOSE METER 148 mg/dL 70-110 H TESTED AT [place] [address] ([facility]) (test code = TEX Sh[place]azz [place] 1538) [address] POCT-GLUCOSE [id number] 13:18:00 Test Item Value Reference Range Interpretation Comments POC-GLUCOSE METER 136 mg/dL 70-110 H TESTED AT [place] [address] ([facility]) (test code = TEX Sh[place]azz [place] 1538) [address] POCT-GLUCOSE [id number] 08:34:00 Test Item Value Reference Range Interpretation Comments POC-GLUCOSE METER 107 mg/dL 70-110 TESTED AT [facility] 6720 (BEAKER) (test code = [place] 1530) [address] BASIC METABOLIC [id number] 07:18:00 Test Item Value Reference Range Interpretation [...] Specimen slightly ictericCBC W/PLT COUNT & AUTO [id number] 06:32:00 Test Item Value Reference Range Interpretation [...] PERCENT (BEAKER) (test code = 2801) POCT-GLUCOSE [id number] 21:22:00 Test Item Value Reference Range Interpretation Comments POC-GLUCOSE METER 190 mg/dL 70-110 H TESTED AT [place] [address] ([facility]) (test code = [facility] Mele [facility] 1538) [address] POCT-GLUCOSE [id number] 17:49:00 Test Item Value Reference Range Interpretation Comments POC-GLUCOSE METER 112 mg/dL 70-110 H TESTED AT [place] [address] ([facility]) ([facility] = [facility] 1538) [address] POCT-GLUCOSE [id number] 13:14:00 Test Item Value Reference Range Interpretation Comments POC-GLUCOSE METER 137 mg/dL 70-110 H TESTED AT [place] [address] ([facility]) (test code = [facility] 1538) [address]85 POCT-GLUCOSE [id number] 07:55:00 Test Item Value Reference Range Interpretation Comments POC-GLUCOSE METER 102 mg/dL 70-110 TESTED AT [facility] 6720 (BEAKER) (test code = TEX Shabazz [facility] 1538) [address] CBC W/PLT COUNT & AUTO [id number] 06:09:00 Test Item Value Reference Range Interpretation [...] (BEAKER) (test code = 2801) BASIC METABOLIC [id number] 05:59:00 Test Item Value Reference Range Interpretation [...] FOR DIALYSIS PATIEN TS. Specimen slightly ictericPOCT-GLUCOSE [id number] 22:01:00 Test Item Value Reference Range Interpretation Comments POC-GLUCOSE METER 136 mg/dL 70-110 H TESTED AT [facility] 6720 (BEAKER) (test code = [place] 1538) [address] [place], ESOPH, SWALLOW FUNCTION, WITH CINE OR [id number] 17:39:00Reason for exam:->DysphagiaFINAL REPORT INDICATION: Dysphagia. TECHNIQUE: [...] MDReport Verified Date/Time: 08/31/2018 17:39:54 Reading Location: [facility] [id number] Ortho Consult Reading Room -GLUCOSE [id number] 17:04:00 Test Item Value Reference Range Interpretation Comments POC-GLUCOSE METER 154 mg/dL 70-110 H TESTED AT [place] [address] (BEAKER) (test code = [facility] 1538) 9[address] POCT-GLUCOSE [id number] 13:17:00 Test Item Value Reference Range Interpretation Comments POC-GLUCOSE METER 168 mg/dL 70-110 H TESTED AT [place] [address] ([facility]) (test code = [facility] 1538) 54547 POCT-GLUCOSE [id number] 12:33:00 Test Item Value Reference Range Interpretation Comments POC-GLUCOSE METER 127 mg/dL 70-110 H TESTED AT [place] [address] (BEAKER) (test code = [facility] 1538) 21156 CBC W/PLT COUNT & AUTO [id number] 05:57:00 Test Item Value Reference Range Interpretation [...] PERCENT (BEAKER) (test code = 2801) TROPONIN [id number] 05:56:00 Test Item Value Reference Range Interpretation [...] failure, acidosis, acute neurological disease, and persistent tachyarrhythmia.[id number] 05:48:00 Test Item Value Reference Range Interpretation Comments MAGNESIUM (BEAKER) (test code = 2.2 mg/dL 1.6-2.6 627) BASIC METABOLIC [id number] 05:48:00 Test Item Value Reference Range Interpretation [...] NOT APPLICABLE FOR DIALYSIS PATIEN TS. POCT-GLUCOSE [id number] 04:49:00 Test Item Value Reference Range Interpretation Comments POC-GLUCOSE METER 131 mg/dL 70-110 H TESTED AT [place] [address] ([facility]) (test code = TEX Shabazz [facility] 1538) 68[address] POCT-GLUCOSE [id number] 22:24:00 Test Item Value Reference Range Interpretation Comments POC-GLUCOSE METER 180 mg/dL 70-110 H TESTED AT [place] [address] ([facility]) (test code = TEX Shabazz [facility] 1538) 23474 POCT-GLUCOSE [id number] 17:17:00 Test Item Value Reference Range Interpretation Comments POC-GLUCOSE METER 176 mg/dL 70-110 H TESTED AT [facility] 6720 ([facility]) (test code = TEX Shabazz [facility] 1538) 11679 POCT-GLUCOSE [id number] 11:51:00 Test Item Value Reference Range Interpretation Comments POC-GLUCOSE METER 180 mg/dL 70-110 H TESTED AT [facility] 6720 ([facility]) ([facility] = [facility] Shabazz [facility] 1538) 15[address] HEMOGLOBIN AND [id number] 07:49:00 Test Item Value Reference Range Interpretation Comments HEMOGLOBIN (BEAKER) (test code = 7.3 GM/DL 13.7-17.5 L 410) HEMATOCRIT (BEAKER) (test code = 22.6 % 40.1-51.0 L 411) BASIC METABOLIC [id number] 06:43:00 Test Item Value Reference Range Interpretation [...] NOT APPLICABLE FOR DIALYSIS PATIEN TS. POCT-GLUCOSE [id number] 06:26:00 Test Item Value Reference Range Interpretation Comments POC-GLUCOSE METER 173 mg/dL 70-110 H TESTED AT [place] [address] ([facility]) (test code = TEX Shabazz [facility] 1538) [address] POCT-GLUCOSE [id number] 00:26:00 Test Item Value Reference Range Interpretation Comments POC-GLUCOSE METER 182 mg/dL 70-110 H TESTED AT [place] [address] ([facility]) (test [facility] = [facility] Shabazz [facility] 1538) [address] POCT-GLUCOSE [id number] 18:53:00 Test Item Value Reference Range Interpretation Comments POC-GLUCOSE METER 174 mg/dL 70-110 H TESTED AT [place] [id number] ([facility]) (test [facility] = [facility] Shabazz [facility] 1538) [address] POCT-GLUCOSE [id number] 12:47:00 Test Item Value Reference Range Interpretation Comments POC-GLUCOSE METER 215 mg/dL 70-110 H TESTED AT [place] [address] (BEAKER) (test code = TEX Shabazz [facility] 1538) 7[address]77 POCT-GLUCOSE [id number] 08:59:00 Test Item Value Reference Range Interpretation Comments POC-GLUCOSE METER 185 mg/dL 70-110 H TESTED AT [place] [address] (BEAKER) (test code = TEX Shabazz [facility] 1538) 19510 POCT-GLUCOSE [id number] 06:33:00 Test Item Value Reference Range Interpretation Comments POC-GLUCOSE METER 195 mg/dL 70-110 H TESTED AT [place] [address] (BEAKER) (test code = TEX Shabazz [facility] 1538) 75459 BASIC METABOLIC [id number] 03:42:00 Test Item Value Reference Range Interpretation [...] NOT APPLICABLE FOR DIALYSIS PATIEN TS. PROTHROMBIN [id number] 03:37:00 Test Item Value Reference Range Interpretation [...] mechanical heart valves.CBC W/PLT COUNT & AUTO [id number] 03:32:00 Test Item Value Reference Range Interpretation [...] PERCENT (BEAKER) (test code = 2801) POCT-GLUCOSE [id number] 00:13:00 Test Item Value Reference Range Interpretation Comments POC-GLUCOSE METER 187 mg/dL 70-110 H TESTED AT [facility] 6720 (BEAKER) (test code = [place] 1538) [address] POCT-GLUCOSE [id number] 18:27:00 Test Item Value Reference Range Interpretation Comments POC-GLUCOSE METER 184 mg/dL 70-110 H TESTED AT [place] [address] (BEAKER) (test code = TEX Shabazz [facility] 1538) 44361 POCT-GLUCOSE [id number] 14:01:00 Test Item Value Reference Range Interpretation Comments POC-GLUCOSE METER 224 mg/dL 70-110 H TESTED AT [facility] 6720 (BEAKER) (test code = [facility] Mele [facility] 1538) 29[address] [id number] 06:44:00 Test Item Value Reference Range Interpretation Comments MAGNESIUM (BEAKER) (test code = 2.6 mg/dL 1.6-2.6 627) BASIC METABOLIC [id number] 06:44:00 Test Item Value Reference Range Interpretation [...] NOT APPLICABLE FOR DIALYSIS PATIEN TS. POCT-GLUCOSE [id number] 06:21:00 Test Item Value Reference Range Interpretation Comments POC-GLUCOSE METER 181 mg/dL 70-110 H TESTED AT [facility] 6720 (AKER) (test code = [place] 1538) [address] PROTHROMBIN [id number] 05:09:00 Test Item Value Reference Range Interpretation [...] 0-0 (AKER) (test code = 413) POCT-GLUCOSE [id number] 00:55:00 Test Item Value Reference Range Interpretation Comments POC-GLUCOSE METER 211 mg/dL 70-110 H TESTED AT [place] [address] ([facility]) (test code = TEX [place] 1538) 18043 POCT-GLUCOSE [id number] 21:29:00 Test Item Value Reference Range Interpretation Comments POC-GLUCOSE METER 220 mg/dL 70-110 H TESTED AT [place] [address] ([facility]) (test code = [place] 1538) [address]73 POCT-GLUCOSE [id number] 18:15:00 Test Item Value Reference Range Interpretation Comments POC-GLUCOSE METER 200 mg/dL 70-110 H TESTED AT [place] [address] ([facility]) (test code = TEX [place] 1538) [address]957 POCT-GLUCOSE [id number] 11:57:00 Test Item Value Reference Range Interpretation Comments POC-GLUCOSE METER 238 mg/dL 70-110 H TESTED AT [place] [address] ([facility]) (test code = TEX [place] 1538) [address] HEMOGLOBIN AND [id number] 08:02:00 Test Item Value Reference Range Interpretation Comments HEMOGLOBIN (BEAKER) (test code = 7.3 GM/DL 13.7-17.5 L 410) HEMATOCRIT (BEAKER) (test code = 23.2 % 40.1-51.0 L 411) [id number] 06:37:00 Test Item Value Reference Range Interpretation Comments MAGNESIUM (BEAKER) (test code = 2.6 mg/dL 1.6-2.6 627) BASIC METABOLIC [id number] 06:37:00 Test Item Value Reference Range Interpretation [...] FOR DIALYSIS PATIEN TS. Specimen slightly ictericPOCT-GLUCOSE [id number] 06:24:00 Test Item Value Reference Range Interpretation Comments POC-GLUCOSE METER 160 mg/dL 70-110 H TESTED AT [place] [address] ([facility]) (test code = [place] 1538) [address] PROTHROMBIN [id number] 05:49:00 Test Item Value Reference Range Interpretation Comments PROTIME (BEAKER) (test code = 15.1 seconds 11.9-14.2 H 759) INR ([facility]) (test code = 370) 1.2 <=5.9 Effective 07/28/2018: PT Reference Range ChangeNew: 11.9-14.2 Previous: 11.7- 14.7RECOMMENDED COUMADIN/WARFARIN INR THERAPY RANGESSTANDARD DOSE: 2.0-3.0 Includes: PROPHYLAXIS for venous thrombosis, systemic embolization; TREATMENT for venous thrombosis and/or pulmonary embolus.HIGH RISK: Target INR is2.5-3.5 for patients wiht mechanical heart valves.POCT-GLUCOSE [id number] 18:38:00 Test Item Value Reference Range Interpretation Comments POC-GLUCOSE METER 196 mg/dL 70-110 H TESTED AT [place] [address] ([facility]) (test code = TEX [place] 1538) [address] POCT-GLUCOSE [id number] 13:58:00 Test Item Value Reference Range Interpretation Comments POC-GLUCOSE METER 244 mg/dL 70-110 H TESTED AT [facility] 6720 (BEAKER) (test code = TEX [place] 1538) [address] [id number] 07:56:00 Test Item Value Reference Range Interpretation Comments PHOSPHORUS (BEAKER) (test code = 2.2 mg/dL 2.3-4.7 L 604) POCT-GLUCOSE [id number] 06:22:00 Test Item Value Reference Range Interpretation Comments POC-GLUCOSE METER 179 mg/dL 70-110 H TESTED AT [place] [address] (BEAKER) (test code = TEX Sh[place] 1538) [address] POCT-GLUCOSE [id number] 05:10:00 Test Item Value Reference Range Interpretation Comments POC-GLUCOSE METER 249 mg/dL 70-110 H TESTED AT [place] [address] (BEAKER) (test code = TEX [place] 1538) [address] [id number] 04:08:00 Test Item Value Reference Range Interpretation Comments MAGNESIUM (BEAKER) (test code = 2.7 mg/dL 1.6-2.6 H 627) BASIC METABOLIC [id number] 04:08:00 Test Item Value Reference Range Interpretation [...] NOT APPLICABLE FOR DIALYSIS PATIEN TS. PROTHROMBIN [id number] 03:49:00 Test Item Value Reference Range Interpretation [...] mechanical heart valves.CBC W/PLT COUNT & AUTO [id number] 03:49:00 Test Item Value Reference Range Interpretation [...] PERCENT (BEAKER) (test code = 2801) POCT-GLUCOSE [id number] 00:22:00 Test Item Value Reference Range Interpretation Comments POC-GLUCOSE METER 214 mg/dL 70-110 H TESTED AT [place] [address] ([facility]) (test code = TEX Shabazz [facility] 1538) 9[address] POCT-GLUCOSE [id number] 17:37:00 Test Item Value Reference Range Interpretation Comments POC-GLUCOSE METER 164 mg/dL 70-110 H TESTED AT [place] [address] ([facility]) (test code = TEX Shabazz [facility] 1538) [address] CBC W/PLT COUNT & AUTO [id number] 15:32:00 Test Item Value Reference Range Interpretation [...] (test code = 2801) EEG AWAKE/ASLEEP AND [id number] 14:46:00Reason for exam:->continued decreased responsivenessShould this be performed at the bedside?->YesDate(s) of EE08/25/2018DATE OF REPORT: 08/25/[id number] Number: [id number] Location: Inpatient ICUStart time:09:45 amStop time:10:06 amICD-10: R56.9 Unspecified ConvulsionsCPT Code: 21811 EEG HISTORY: 88 y.o. 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 MEDICATION THAT CAN AFFECT EEG: [...] this study. Henri Yañez MDNeu rophysiology Fellow Onur Leiva MD, MSClinical Neurophysiology/Epilepsy Attending POCT-GLUCOSE [id number] 12:43:00 Test Item Value Reference Range Interpretation Comments POC-GLUCOSE METER 221 mg/dL 70-110 H TESTED AT [facility] 6720 (RUBY) (test code = [place] 1538) [address] RAD, CHEST, 1 VIEW, NON [id number] 11:00:00Reason for exam:- >hemoptysisShould this be performed [...] MDReport Verified Date/Time: 08/25/2018 11:00:37 Reading Location: [facility] Radiology Reading Room POCT-GLUCOSE [id number] 06:39:00 Test Item Value Reference Range Interpretation Comments POC-GLUCOSE METER 202 mg/dL 70-110 H TESTED AT [facility] 6720 (BEAKER) (test code = TEX Shabazz [facility] 1538) [address] BLOOD GAS, [id number] 05:13:00 Test Item Value Reference Range Interpretation [...] code = 1819) 24.0 % BASIC METABOLIC [id number] 05:10:00 Test Item Value Reference Range Interpretation [...] FOR DIALYSIS PATIEN TS. Specimen slightly ictericPROTHROMBIN [id number] 05:07:00 Test Item Value Reference Range Interpretation [...] mechanical heart valves.CBC W/PLT COUNT & AUTO [id number] 04:52:00 Test Item Value Reference Range Interpretation [...] = 2801) RAD, CHEST, 1 VIEW, NON [id number] 04:28:00Reason for exam:- >intubatedShould this be performed at the bedside?->YesFINAL REPORT CLINICAL INDICATION: Support lines. Comparison: 08/24/2018 The cardiomediastinal contours are stable. Central pulmonary vascular congestion and bilateral parenchymalopacities are similar to previous. There is no pneumothorax. Support lines are stable. Signed: Dawson Barron MDReport Verified Date/Time: 08/25/2018 04:28:55 Reading Location: [address] Reading Room POCT-GLUCOSE [id number] 00:29:00 Test Item Value Reference Range Interpretation Comments POC-GLUCOSE METER 258 mg/dL 70-110 H TESTED AT [facility] 6720 (BEAKER) (test code = TEX [place] 1538) [address] POCT-GLUCOSE [id number] 18:26:00 Test Item Value Reference Range Interpretation Comments POC-GLUCOSE METER 293 mg/dL 70-110 H TESTED AT [place] [id number] (BEAKER) (test code = TEX Sh[place]azz [place] 1538) [address] BLOOD GAS, [id number] 15:38:00 Test Item Value Reference Range Interpretation [...] code = 1819) 30.0 % BLOOD GAS, [id number] 14:57:00 Test Item Value Reference Range Interpretation [...] code = 1819) 24.0 % BASIC METABOLIC [id number] 14:47:00 Test Item Value Reference Range Interpretation [...] S NOT APPLICABLE FOR DIALYSIS PATIEN TS. [id number] 14:47:00 Test Item Value Reference Range Interpretation Comments MAGNESIUM (BEAKER) (test code = 2.2 mg/dL 1.6-2.6 627) [id number] 14:47:00 Test Item Value Reference Range Interpretation Comments PHOSPHORUS (BEAKER) (test code = 1.9 mg/dL 2.3-4.7 L 604) CBC W/PLT COUNT & AUTO [id number] 14:12:00 Test Item Value Reference Range Interpretation [...] PERCENT (BEAKER) (test code = 2801) CALCIUM, [id number] 13:35:00 Test Item Value Reference Range Interpretation Comments CALCIUM IONIZED (BEAKER) (test 1.16 mmol/L 1.12-1.27 code = 698) PH, BLOOD (BEAKER) (test code = 7.49 1810) TROPONIN [id number] 13:08:00 Test Item Value Reference Range Interpretation [...] acidosis, acute neurological disease, and persistent tachyarrhythmia.POCT-GLUCOSE [id number] 12:10:00 Test Item Value Reference Range Interpretation Comments POC-GLUCOSE METER 258 mg/dL 70-110 H TESTED AT [facility] 67 (BEAKER) (test code = [facility] 1538) [address] POCT-GLUCOSE [id number] 06:22:00 Test Item Value Reference Range Interpretation Comments POC-GLUCOSE METER 215 mg/dL 70-110 H TESTED AT [place] [address] (BEAKER) (test code = [facility] 1538) [address]254 BLOOD GAS, [id number] 06:06:00 Test Item Value Reference Range Interpretation [...] code = 1819) 24.0 % BASIC METABOLIC [id number] 05:50:00 Test Item Value Reference Range Interpretation [...] Specimen slightly ictericCBC W/PLT COUNT & AUTO [id number] 05:49:00 Test Item Value Reference Range Interpretation [...] PERCENT (BEAKER) (test code = 2801) PROTHROMBIN [id number] 05:34:00 Test Item Value Reference Range Interpretation [...] for patients wiht mechanical heart valves.HEMOGLOBIN AND [id number] 05:30:00 Test Item Value Reference Range Interpretation Comments HEMOGLOBIN (BEAKER) (test code = 7.7 GM/DL 13.7-17.5 L 410) HEMATOCRIT (BEAKER) (test code = 23.8 % 40.1-51.0 L 411) RAD, CHEST, 1 VIEW, NON [id number] 04:20:00Reason for exam:- >intubatedShould this be performed at the bedside?->YesFINAL REPORT CLINICAL INDICATION: Support lines. Comparison: 08/23/2018 The right costophrenic sulcus is excluded. The cardiomediastinal contours are stable. Central pulmonary vascular congestion and bilateral parenchymal and left pleural opacities are similar to previous. Thereis no pneumothorax. Support lines are stable. Signed: Dawson Barron MDReport Verified Date/Time: 08/24/2018 04:20:37 Reading Location: [address] Reading Room HEMOGLOBIN AND [id number] 00:40:00 Test Item Value Reference Range Interpretation Comments HEMOGLOBIN (BEAKER) (test code = 7.8 GM/DL 13.7-17.5 L 410) HEMATOCRIT (BEAKER) (test code = 24.2 % 40.1-51.0 L 411) POCT-GLUCOSE [id number] 00:30:00 Test Item Value Reference Range Interpretation Comments POC-GLUCOSE METER 192 mg/dL 70-110 H TESTED AT [place] [address] ([facility] (test code = [facility] [place] 1538) [address] POCT-GLUCOSE [id number] 17:25:00 Test Item Value Reference Range Interpretation Comments POC-GLUCOSE METER 199 mg/dL 70-110 H TESTED AT [place] [address] ([facility]) (test code = [facility] [place] 1538) [address] HEMOGLOBIN AND [id number] 15:58:00 Test Item Value Reference Range Interpretation Comments HEMOGLOBIN (BEAKER) (test code = 7.6 GM/DL 13.7-17.5 L 410) HEMATOCRIT (BEAKER) (test code = 23.1 % 40.1-51.0 L 411) POCT-GLUCOSE [id number] 13:05:00 Test Item Value Reference Range Interpretation Comments POC-GLUCOSE METER 196 mg/dL 70-110 H TESTED AT [place] [address] ([facility]) (test code = [facility] [place] 1538) [address] TROPONIN [id number] 10:06:00 Test Item Value Reference Range Interpretation [...] (BEAKER) (test code = 2801) BLOOD GAS, [id number] 09:19:00 Test Item Value Reference Range Interpretation [...] code = 1819) 30.0 % BLOOD GAS, [id number] 05:48:00 Test Item Value Reference Range Interpretation [...] 40.0 % RAD, CHEST, 1 VIEW, NON [id number] 04:45:00Reason for exam:- >intubatedShould this be performed [...] PATIEN TS. Specimen slightly ictericCT, BRAIN, WITHOUT [id number] 03:59:00FINAL REPORT CT Head without contrast CLINICAL [...] Jha MDReport Verified Date/Time: 08/23/2018 03:59:22 ONIN [id number] 02:22:00 Test Item Value Reference Range Interpretation [...] (BEAKER) (test code = 2801) HEMOGLOBIN AND [id number] 02:04:00 Test Item Value Reference Range Interpretation Comments HEMOGLOBIN (BEAKER) (test code = 8.0 GM/DL 13.7-17.5 L 410) HEMATOCRIT (BEAKER) (test code = 23.9 % 40.1-51.0 L 411) POCT-GLUCOSE [id number] 01:58:00 Test Item Value Reference Range Interpretation Comments POC-GLUCOSE METER 194 mg/dL 70-110 H TESTED AT [facility] 6720 (BEAKER) (test code = [place] 1538) [address] POCT-GLUCOSE [id number] 18:05:00 Test Item Value Reference Range Interpretation Comments POC-GLUCOSE METER 212 mg/dL 70-110 H TESTED AT [facility] 6720 (BEAKER) (test code = [place] 1538) [address] BLOOD GAS, [id number] 17:31:00 Test Item Value Reference Range Interpretation [...] 40.0 % RAD, CHEST, 1 VIEW, NON [id number] 16:59:00Post-intubationReason for exam:- >intubationShould this be performed [...] Date/Time: 08/22/2018 16:59:35 Reading Location: [facility] B1 C013X Ortho Consult Reading Room CBC W/PLT COUNT & AUTO [id number] 16:38:00 Test Item Value Reference Range Interpretation [...] (BEAKER) (test code = 2801) HEMOGLOBIN AND [id number] 16:25:00 Test Item Value Reference Range Interpretation Comments HEMOGLOBIN (BEAKER) (test code = 8.3 GM/DL 13.7-17.5 L 410) HEMATOCRIT (BEAKER) (test code = 25.3 % 40.1-51.0 L 411) BLOOD GAS, [id number] 15:56:00 Test Item Value Reference Range Interpretation [...] code = 1819) 21.0 % HEPATIC FUNCTION [id number] 14:56:00 Test Item Value Reference Range Interpretation [...] (test code = 347) hemolyzed Specimen slightly [id number] 14:50:00 Test Item Value Reference Range Interpretation Comments AMMONIA (BEAKER) (test code = 348) 129 mol/L 18-72 H TROPONIN [id number] 14:12:00 Test Item Value Reference Range Interpretation [...] and persistent tachyarrhythmia.RAD, CHEST, 1 VIEW, NON [id number] 14:11:00Post-intubationReason for exam:->r/o pnaShould this be performed [...] Torre Verified Date/Time: 2018 14:11:20 Reading Location: [facility] C013X [facility] Consult Reading Room PHOSPHORUSteffanie 2018-08-22 14:06:00 Test Item Value Reference Range Interpretation Comments PHOSPHORUS (BEAKER) (test code = 3.6 mg/dL 2.3-4.7 604) [id number] 14:06:00 Test Item Value Reference Range Interpretation Comments MAGNESIUM (BEAKER) (test code = 2.0 mg/dL 1.6-2.6 627) COMPREHENSIVE METABOLIC [id number] 14:06:00 Test Item Value Reference Range Interpretation [...] DIALYSIS PATIEN TS. Specimen slightly ictericLACTIC ACID, [id number] 14:01:00 Test Item Value Reference Range Interpretation Comments LACTATE BLOOD VENOUS 1.9 mmol/L 0.5-2.2 Specime n slightly (2) (BEAKER) (test hemolyzed code = 2872) Specimen slightly [id number] 14:00:00 Test Item Value Reference Range Interpretation Comments FIBRINOGEN LEVEL (BEAKER) (test 329 mg/dl 225-434 code = 658) [id number] 14:00:00 Test Item Value Reference Range Interpretation Comments PARTIAL THROMBOPLASTIN TIME 36.4 seconds 22.5-36.0 H (BEAKER) (test code = 760) PROTHROMBIN [id number] 13:59:00 Test Item Value Reference Range Interpretation [...] mechanical heart valves.CBC W/PLT COUNT & AUTO [id number] 13:47:00 Test Item Value Reference Range Interpretation [...] PERCENT (BEAKER) (test code = 2801) POCT-GLUCOSE [id number] 07:50:00 Test Item Value Reference Range Interpretation Comments POC-GLUCOSE METER 137 mg/dL 70-110 H TESTED AT [facility] 6720 (BEAKER) (test code = [place] 1538) [address] BASIC METABOLIC [id number] 06:28:00 Test Item Value Reference Range Interpretation [...] PATIEN TS. CBC W/PLT COUNT & AUTO [id number] 06:08:00 Test Item Value Reference Range Interpretation [...] PERCENT (BEAKER) (test code = 2801) PROTHROMBIN TIME/[id number] 05:57:00 Test Item Value Reference Range Interpretation [...] METER 138 mg/dL 70-110 H TESTED AT [facility] 67 ([facility]) (test code = [place] 1538) [address] POCT-GLUCOSE [id number] 17:49:00 Test Item Value Reference Range Interpretation Comments POC-GLUCOSE METER 137 mg/dL 70-110 H TESTED AT [facility] 6720 ([facility]) (test code = [facility] [place] 1538) [address] CBC W/PLT COUNT & AUTO [id number] 13:23:00 Test Item Value Reference Range Interpretation [...] 3438) Received comment: User comments: Slide comments:POCT-GLUCOSE [id number] 11:08:00 Test Item Value Reference Range Interpretation Comments POC-GLUCOSE METER 184 mg/dL 70-110 H TESTED AT [facility] 6720 (BEAKER) (test code = [place] 1538) [address] BASIC METABOLIC [id number] 06:30:00 Test Item Value Reference Range Interpretation [...] NOT APPLICABLE FOR DIALYSIS PATIEN TS. PROTHROMBIN TIME/[id number] 06:25:00 Test Item Value Reference Range Interpretation Comments PROTIME ([facility]) (test code = 16.7 seconds 11.7-14.7 H 759) INR ([facility]) (test code = 370) 1.3 <=5.9 RECOMMENDED COUMADIN/WARFARIN INR THERAPY RANGESSTANDARD DOSE: 2.0 - 3.0 Includes: PROPHYLAXIS forvenous thrombosis, systemic embolization; TREATMENT for venous thrombosis and/or pulmonary embolus.HIGH RISK: Target INR is 2.5-3.5 for patients with mechanical heart valves.While on warfarin.POCT-GLUCOSE METER 2018-03-11 21:14:00 Test Item Value Reference Range Interpretation Comments POC-GLUCOSE METER 129 mg/dL 70-110 H TESTED AT [place] [address] ([facility]) (test code = [facility] 1538) [address] POCT-GLUCOSE [id number] 17:06:00 Test Item Value Reference Range Interpretation Comments POC-GLUCOSE METER 155 mg/dL 70-110 H TESTED AT [place] [address] ([facility]) (test code = [facility] 1538) [address] CBC W/PLT COUNT & AUTO [id number] 13:39:00 Test Item Value Reference Range Interpretation Comments WHITE BLOOD CELL COUNT ([facility]) 3.9 K/ L 3.5-10.5 (test code = 775) RED BLOOD CELL COUNT ([facility]) 2.27 M/ L 4.63-6.08 L (test code = 761) HEMOGLOBIN (AKER) (test code = 7.5 GM/DL 13.7-17.5 L 410) HEMATOCRIT ([facility]) (test code = 23.8 % [...] 3438) Received comment: User comments: Slide comments:POCT-GLUCOSE [id number] 11:37:00 Test Item Value Reference Range Interpretation Comments POC-GLUCOSE METER 140 mg/dL 70-110 H TESTED AT [facility] 67 (BEAKER) (test code = [facility] 1538) [address] POCT-GLUCOSE [id number] 07:55:00 Test Item Value Reference Range Interpretation Comments POC-GLUCOSE METER 139 mg/dL 70-110 H TESTED AT [place] [address] ([facility]) (test code = [facility] 1538) [address] BASIC METABOLIC [id number] 05:47:00 Test Item Value Reference Range Interpretation [...] mg/dL 8.4-10.2 (test code = 697) EGFR ([facility]) (test 61 mL/min/1.73 ESTIMA VIKKI GFR IS code = 1092) sq m NOT ACCURATE CREATININE CLEARANCE IN PREDICTING GLOMERULAR FILTRATION RATE . ESTIMATED GFR I S NOT APPLICABLE FOR DIALYSIS PATIEN TS. PROTHROMBIN TIME/[id number] 05:28:00 Test Item Value Reference Range Interpretation Comments PROTIME ([facility]) (test code = 15.7 seconds 11.7-14.7 H 759) INR ([facility]) (test code = 370) 1.2 <=5.9 RECOMMENDED COUMADIN/WARFARIN INR THERAPY RANGESSTANDARD DOSE: 2.0 - 3.0 Includes: PROPHYLAXIS forvenous thrombosis, systemic embolization; TREATMENT for venous thrombosis and/or pulmonary embolus.HIGH RISK: Target INR is 2.5-3.5 for patients with mechanical heart valves.While on warfarin.POCT-GLUCOSE METER 2018-03-10 20:37:00 Test Item Value Reference Range Interpretation Comments POC-GLUCOSE METER 146 mg/dL 70-110 H TESTED AT [place] [address] ([facility]) [facility] 1538) [address] POCT-GLUCOSE [id number] 17:28:00 Test Item Value Reference Range Interpretation Comments POC-GLUCOSE METER 156 mg/dL 70-110 H TESTED AT [place] [address] ([facility]) (test code = [facility] [place] [facility] 1538) [address] CBC W/PLT COUNT & AUTO [id number] 13:53:00 Test Item Value Reference Range Interpretation Comments WHITE BLOOD CELL COUNT ([facility]) 4.1 K/ L 3.5-10.5 (test code = 775) RED BLOOD CELL COUNT ([facility]) 2.37 M/ L 4.63-6.08 L (test code = 761) HEMOGLOBIN ([facility]) (test code = 7.8 GM/DL 13.7-17.5 L 410) HEMATOCRIT ([facility]) (test code = 24.6 % 40.1-51.0 L 411) MEAN CORPUSCULAR VOLUME ([facility]) 103.8 fL 79.0-92.2 H (test code = 753) MEAN CORPUSCULAR HEMOGLOBIN 32.9 pg 25.7-32.2 H ([facility]) (test code = 751) MEAN [...] 3438) Received comment: User comments: Slide comments:POCT-GLUCOSE [id number] 12:04:00 Test Item Value Reference Range Interpretation Comments POC-GLUCOSE METER 182 mg/dL 70-110 H TESTED AT [facility] 6720 (BEAKER) (test code = [facility] 1538) [address] POCT-GLUCOSE [id number] 08:09:00 Test Item Value Reference Range Interpretation Comments POC-GLUCOSE METER 111 mg/dL 70-110 H TESTED AT [facility] 6720 (BEAKER) (test code = [facility] 1538) [address] BASIC METABOLIC [id number] 07:02:00 Test Item Value Reference Range Interpretation [...] 0-100 H (test code = 700) PROTHROMBIN [id number] 06:39:00 Test Item Value Reference Range Interpretation [...] METER 162 mg/dL 70-110 H TESTED AT [facility] 67 ([facility] (test code = [facility] [place] [facility] 1538) [address] POCT-GLUCOSE [id number] 18:15:00 Test Item Value Reference Range Interpretation Comments POC-GLUCOSE METER 127 mg/dL 70-110 H TESTED AT [place] [address] ([facility]) (test code = [facility] 1538) [address] BASIC METABOLIC [id number] 08:18:00 Test Item Value Reference Range Interpretation [...] S NOT APPLICABLE FOR DIALYSIS PATIEN TS. [id number] 08:18:00 Test Item Value Reference Range Interpretation [...] 0-0 (BEAKER) (test code = 413) POCT-GLUCOSE [id number] 05:58:00 Test Item Value Reference Range Interpretation Comments POC-GLUCOSE METER 153 mg/dL 70-110 H TESTED AT [place] [address] ([facility]) ([facility] 1538) [address] POCT-GLUCOSE [id number] 23:35:00 Test Item Value Reference Range Interpretation Comments POC-GLUCOSE METER 170 mg/dL 70-110 H TESTED AT [place] [address] ([facility]) ([facility] 1538) [address] POCT-GLUCOSE [id number] 17:28:00 Test Item Value Reference Range Interpretation Comments POC-GLUCOSE METER 155 mg/dL 70-110 H TESTED AT [place] [address] ([facility]) (test code = [facility] [place] [facility] 1538) [address] HEMOGLOBIN AND [id number] 17:16:00 Test Item Value Reference Range Interpretation Comments HEMOGLOBIN (BEAKER) (test code = 7.9 GM/DL 13.7-17.5 L 410) HEMATOCRIT (BEAKER) (test code = 24.9 % 40.1-51.0 L 411) BLOOD [id number] 13:01:00 Test Item Value Reference Range Interpretation Comments CULTURE (BEAKER) (test No growth in 5 days code = 1095) BLOOD [id number] 13:00:00 Test Item Value Reference Range Interpretation Comments CULTURE (BEAKER) (test No growth in 5 days code = 1095) POCT-GLUCOSE [id number] 11:55:00 Test Item Value Reference Range Interpretation Comments POC-GLUCOSE METER 157 mg/dL 70-110 H TESTED AT [place] [address] ([facility]) (test code = [facility] [place] [facility] 1538) [address] ANTI-MITOCHONDRIAL AB, REFLEX TO [id number] 10:22:00 Test Item Value Reference Range Interpretation Comments SCAN RESULT (test code = 5495521) POCT-GLUCOSE [id number] 05:46:00 Test Item Value Reference Range Interpretation Comments POC-GLUCOSE METER 161 mg/dL 70-110 H TESTED AT [place] [address] ([facility]) (test code = [facility] 1538) [address] HEPATIC FUNCTION [id number] 04:08:00 Test Item Value Reference Range Interpretation [...] (test code = 30 U/L 6-55 347) [id number] 04:03:00 Test Item Value Reference Range Interpretation Comments PHOSPHORUS (BEAKER) (test code = 2.4 mg/dL 2.3-4.7 604) Check Serum Phosphorus level 4 hours after IV phosphorus replacement or 8 hours after PO replacementcompleted.[id number] 04:03:00 Test Item Value Reference Range Interpretation Comments MAGNESIUM (BEAKER) (test code = 2.5 mg/dL 1.6-2.6 627) Check Serum Phosphorus level 4 hours after IV phosphorus replacement or 8 hours after PO replacementcompleted.BASIC METABOLIC [id number] 04:03:00 Test Item Value Reference Range Interpretation [...] after PO replacementcompleted.CBC W/PLT COUNT & AUTO [id number] 03:47:00 Test Item Value Reference Range Interpretation [...] (BEAKER) (test code = 2801) HEMOGLOBIN AND [id number] 03:46:00 Test Item Value Reference Range Interpretation Comments HEMOGLOBIN (BEAKER) (test code = 7.7 GM/DL 13.7-17.5 L 410) HEMATOCRIT (BEAKER) (test code = 24.8 % 40.1-51.0 L 411) POCT-GLUCOSE [id number] 01:04:00 Test Item Value Reference Range Interpretation Comments POC-GLUCOSE METER 150 mg/dL 70-110 H TESTED AT [facility] 6720 (BEAKER) (test code = [place] 1538) [address] SPUTUM CULTURE + GRAM [id number] 19:57:00 Test Item Value Reference Range Interpretation Comments CULTURE (BEAKER) No growth (test code = 1095) GRAM STAIN RESULT 4+ WBCs (BEAKER) (test code = 1123) GRAM STAIN RESULT 0-5 epithelial cells (BEAKER) (test code = 66631) GRAM STAIN RESULT <1+ gram positive cocci (BEAKER) (test code = in pairs [address]) HEMOGLOBIN AND [id number] 16:09:00 Test Item Value Reference Range Interpretation Comments HEMOGLOBIN (BEAKER) (test code = 7.8 GM/DL 13.7-17.5 L 410) HEMATOCRIT (BEAKER) (test code = 25.1 % 40.1-51.0 L 411) POCT-GLUCOSE [id number] 16:06:00 Test Item Value Reference Range Interpretation Comments POC-GLUCOSE METER 143 mg/dL 70-110 H TESTED AT [facility] 6720 ([facility]) (test code = [place] [facility] 1538) [address] POCT-GLUCOSE [id number] 11:55:00 Test Item Value Reference Range Interpretation Comments POC-GLUCOSE METER 148 mg/dL 70-110 H TESTED AT [facility] 6720 ([facility]) (test code = [place] [facility] 1538) [address] RAD, ABDOMEN/KUB, 1 VIEW [id number] 10:26:00Reason for exam:->Check position of NGTFINAL REPORT [...] MDReport Verified Date/Time: 03/07/2018 10:26:54 Reading Location: [facility] [address] [place] [address] Reading Room HEPATIC FUNCTION [id number] 09:14:00 Test Item Value Reference Range Interpretation [...] 6-55 347) CBC W/PLT COUNT & AUTO [id number] 06:53:00 Test Item Value Reference Range Interpretation [...] PERCENT (BEAKER) (test code = 2801) POCT-GLUCOSE [id number] 06:23:00 Test Item Value Reference Range Interpretation Comments POC-GLUCOSE METER 125 mg/dL 70-110 H TESTED AT [facility] 6720 (BEAKER) (test code = [place] 1538) [address] [id number] 05:53:00 Test Item Value Reference Range Interpretation Comments PHOSPHORUS (BEAKER) (test code = 2.7 mg/dL 2.3-4.7 604) Check Serum Phosphorus level 4 hours after IV phosphorus replacement or 8 hours after PO replacementcompleted.[id number] 05:53:00 Test Item Value Reference Range Interpretation Comments MAGNESIUM (BEAKER) (test code = 2.6 mg/dL 1.6-2.6 627) Check Serum Phosphorus level 4 hours after IV phosphorus replacement or 8 hours after PO replacementcompleted.BASIC METABOLIC [id number] 05:53:00 Test Item Value Reference Range Interpretation [...] or 8 hours after PO replacementcompleted.HEMOGLOBIN AND [id number] 05:29:00 Test Item Value Reference Range Interpretation Comments HEMOGLOBIN (BEAKER) (test code = 8.0 GM/DL 13.7-17.5 L 410) HEMATOCRIT (BEAKER) (test code = 26.1 % 40.1-51.0 L 411) HEMOGLOBIN AND [id number] 23:58:00 Test Item Value Reference Range Interpretation Comments HEMOGLOBIN (BEAKER) (test code = 6.8 GM/DL 13.7-17.5 L 410) HEMATOCRIT (BEAKER) (test code = 22.5 % 40.1-51.0 L 411) MRSA [id number] 23:57:00 Test Item Value Reference Range Interpretation Comments CULTURE (BEAKER) (test code No MRSA isolated = 1095) POCT-GLUCOSE [id number] 22:48:00 Test Item Value Reference Range Interpretation Comments POC-GLUCOSE METER 168 mg/dL 70-110 H TESTED AT [facility] 6720 (BEAKER) (test code = [facility] 1538) [address] POCT-GLUCOSE [id number] 18:01:00 Test Item Value Reference Range Interpretation Comments POC-GLUCOSE METER 162 mg/dL 70-110 H TESTED AT [facility] 6720 (BEAKER) (test code = [facility] 1538) [address] HEMOGLOBIN AND [id number] 12:49:00 Test Item Value Reference Range Interpretation Comments HEMOGLOBIN (BEAKER) (test code = 7.4 GM/DL 13.7-17.5 L 410) HEMATOCRIT (BEAKER) (test code = 23.9 % 40.1-51.0 L 411) STOOL CULTURE + SHIGA [id number] 10:14:00 Test Item Value Reference Range Interpretation Comments CULTURE (BEAKER) No Salmonella, Shigella (test code = 1095) or Campylobacter isolated POCT-GLUCOSE [id number] 09:55:00 Test Item Value Reference Range Interpretation Comments POC-GLUCOSE METER 143 mg/dL 70-110 H TESTED AT [facility] 6720 (BEAKER) (test code = [place] 1538) [address] CBC W/PLT COUNT & AUTO [id number] 07:15:00 Test Item Value Reference Range Interpretation [...] 0-1 PERCENT (BEAKER) (test code = 2801) [id number] 05:47:00 Test Item Value Reference Range Interpretation Comments PHOSPHORUS (BEAKER) (test code = 2.8 mg/dL 2.3-4.7 604) Check Serum Phosphorus level 4 hours after IV phosphorus replacement or 8 hours after PO replacementcompleted.[id number] 05:47:00 Test Item Value Reference Range Interpretation Comments MAGNESIUM (BEAKER) (test code = 2.6 mg/dL 1.6-2.6 627) Check Serum Phosphorus level 4 hours after IV phosphorus replacement or 8 hours after PO replacementcompleted.BASIC METABOLIC [id number] 05:47:00 Test Item Value Reference Range Interpretation [...] after PO replacementcompleted.RAD, CHEST, 1 VIEW, NON [id number] 05:00:00 Reason for exam:->resp failureShould this be [...] Verified Date/Time: 03/06/2018 05:00:57 Reading Location: [address] Transitional Reading Room POCT-GLUCOSE [id number] 04:50:00 Test Item Value Reference Range Interpretation Comments POC-GLUCOSE METER 133 mg/dL 70-110 H TESTED AT [place] [address] ([facility]) (test code = TEX Sh[place] [facility] 1538) [address] HEMOGLOBIN AND [id number] 23:14:00 Test Item Value Reference Range Interpretation Comments HEMOGLOBIN ([facility]) (test code = 7.1 GM/DL 13.7-17.5 L 410) HEMATOCRIT ([facility]) (test code = 23.5 % 40.1-51.0 L 411) POCT-GLUCOSE [id number] 23:12:00 Test Item Value Reference Range Interpretation Comments POC-GLUCOSE METER 146 mg/dL 70-110 H TESTED AT [place] [address] ([facility]) (test code = [place] [facility] 1538) [address] POCT-GLUCOSE [id number] 22:11:00 Test Item Value Reference Range Interpretation Comments POC-GLUCOSE METER 164 mg/dL 70-110 H TESTED AT [facility] 6720 (BEAKER) (test code = TEX Sh[place] [facility] 1538) [address] HEMOGLOBIN AND [id number] 18:51:00 Test Item Value Reference Range Interpretation Comments HEMOGLOBIN (BEAKER) (test code = 7.3 GM/DL 13.7-17.5 L 410) HEMATOCRIT (BEAKER) (test code = 23.8 % 40.1-51.0 L 411) POCT-GLUCOSE [id number] 17:35:00 Test Item Value Reference Range Interpretation Comments POC-GLUCOSE METER 169 mg/dL 70-110 H TESTED AT [facility] 6720 (BEAKER) (test code = TEX Sh[place] [facility] 1538) [address] OCCULT BLOOD, [id number] 16:20:00 Test Item Value Reference Range Interpretation Comments FECAL OCCULT BLOOD (BEAKER) (test Positive Negative A code = 618) HEPATIC FUNCTION [id number] 13:39:00 Test Item Value Reference Range Interpretation [...] = 14 U/L 6-55 347) BASIC METABOLIC [id number] 13:39:00 Test Item Value Reference Range Interpretation [...] APPLICABLE FOR DIALYSIS PATIEN TS. VANCOMYCIN LEVEL, [id number] 13:35:00 Test Item Value Reference Range Interpretation Comments VANCOMYCIN RANDOM (BEAKER) (test 10.1 ug/mL code = 523) Reference Range: No NormalsHEMOGLOBIN AND [id number] 12:47:00 Test Item Value Reference Range Interpretation Comments HEMOGLOBIN (BEAKER) (test code = 7.3 GM/DL 13.7-17.5 L 410) HEMATOCRIT (BEAKER) (test code = 23.7 % 40.1-51.0 L 411) POCT-GLUCOSE [id number] 12:14:00 Test Item Value Reference Range Interpretation Comments POC-GLUCOSE METER 189 mg/dL 70-110 H TESTED AT [facility] 6720 (BEAKER) (test code = [place] 1538) [address] ANTI-NUCLEAR ANTIBODY (STEPHY)2018-03-05 10:39:00 Test Item Value Reference Range Interpretation Comments ANTI-NUCLEAR ANTIBODY (STEPHY) (BEAKER) Negative Negative (test code = 418) Test performed by IFA method.Test performed by IFA method.B-TYPE NATRIURETIC FACTOR (BNP)2018-03-05 08:21:00 Test Item Value Reference Range Interpretation Comments B-TYPE NATRIURETIC PEPTIDE (BEAKER) 222 pg/mL 0-100 H (test code = 700) [id number] 08:07:00 Test Item Value Reference Range Interpretation Comments AMMONIA (BEAKER) (test code = 348) 38 mol/L 18-72 RAD, CHEST, 1 VIEW, NON [id number] 06:28:00Reason for exam:->resp failureShould this be performed [...] Verified Date/Time: 03/05/2018 06:28:24 Reading Location: [address] Transitional Reading Room SHIGA TOXIN [id number] 06:12:00 Test Item Value Reference Range Interpretation Comments SHIGA TOXIN 1 (BEAKER) (test Not detected Not detected code = 2177) SHIGA TOXIN 2 (BEAKER) (test Not detected Not detected code = 2179) CBC W/PLT COUNT & AUTO [id number] 05:32:00 Test Item Value Reference Range Interpretation [...] (BEAKER) (test code = 2801) BASIC METABOLIC [id number] 05:31:00 Test Item Value Reference Range Interpretation [...] or 8 hours after PO replacementcompleted.BLOOD GAS, [id number] 05:29:00 Test Item Value Reference Range Interpretation [...] (BEAKER) (test code = 1819) 30.0 % [id number] 05:28:00 Test Item Value Reference Range Interpretation Comments PHOSPHORUS (BEAKER) (test code = 2.4 mg/dL 2.3-4.7 604) Check Serum Phosphorus level 4 hours after IV phosphorus replacement or 8 hours after PO replacementcompleted.[id number] 05:28:00 Test Item Value Reference Range Interpretation Comments MAGNESIUM (BEAKER) (test code = 2.8 mg/dL 1.6-2.6 H 627) Check Serum Phosphorus level 4 hours after IV phosphorus replacement or 8 hours after PO replacementcompleted.POCT-GLUCOSE [id number] 04:14:00 Test Item Value Reference Range Interpretation Comments POC-GLUCOSE METER 164 mg/dL 70-110 H TESTED AT [facility] 6720 ([facility]) (test code = [place] 1538) [address] POCT-GLUCOSE [id number] 21:41:00 Test Item Value Reference Range Interpretation Comments POC-GLUCOSE METER 161 mg/dL 70-110 H TESTED AT [facility] 6720 ([facility]) (test code = [place] 1538) [address] POCT-GLUCOSE [id number] 17:49:00 Test Item Value Reference Range Interpretation Comments POC-GLUCOSE METER 163 mg/dL 70-110 H TESTED AT [facility] 6720 ([facility]) (test code = [place] 1538) [address] CT, [id number] 16:57:00FINAL REPORT CT of the abdomen and [...] MDReport Verified Date/Time: 03/04/2018 16:57:24 Reading Location: [facility] C013Y CT Body Reading Room Sunita ctronically signed by: SHAMA MELENDEZ M.D. on 03/04/2018 04:57 PMSTOOL PATH CHARGE 2018-03-04 14:52:00 Test Item Value Reference Range Interpretation Comments PATHOGEN EXAM CHARGED (BEAKER) (test Done code = 2381) BASIC METABOLIC [id number] 12:28:00 Test Item Value Reference Range Interpretation [...] APPLICABLE FOR DIALYSIS PATIEN TS. HEMOGLOBIN AND [id number] 12:08:00 Test Item Value Reference Range Interpretation Comments HEMOGLOBIN (BEAKER) (test code = 8.2 GM/DL 13.7-17.5 L 410) HEMATOCRIT (BEAKER) (test code = 26.2 % 40.1-51.0 L 411) POCT-GLUCOSE [id number] 11:16:00 Test Item Value Reference Range Interpretation Comments POC-GLUCOSE METER 159 mg/dL 70-110 H TESTED AT [facility] 6720 (BEAKER) (test code = [place] 1538) [address] LACTIC ACID, ARTERIAL, WHOLE [id number] 10:35:00 Test Item Value Reference Range Interpretation Comments LACTATE BLOOD ARTERIAL (2) 0.7 mmol/L 0.5-2.2 (BEAKER) (test code = 2874) [id number] 08:12:00 Test Item Value Reference Range Interpretation Comments AMMONIA (BEAKER) (test code = 348) 44 mol/L 18-72 RAD, CHEST, 1 VIEW, NON [id number] 05:12:00Reason for exam:->resp failureShould this be performed [...] Verified Date/Time: 03/04/2018 05:12:43 Reading Location: [address] Transitional Reading Room BASIC METABOLIC PANEL [...] S NOT APPLICABLE FOR DIALYSIS PATIEN TS. [id number] 04:55:00 Test Item Value Reference Range Interpretation Comments MAGNESIUM (BEAKER) (test code = 3.1 mg/dL 1.6-2.6 H 627) CBC W/PLT COUNT & AUTO [id number] 04:38:00 Test Item Value Reference Range Interpretation [...] (BEAKER) (test code = 2801) BLOOD GAS, [id number] 04:23:00 Test Item Value Reference Range Interpretation [...] (test code = 1819) 40.0 % POCT-GLUCOSE [id number] 22:12:00 Test Item Value Reference Range Interpretation Comments POC-GLUCOSE METER 171 mg/dL 70-110 H TESTED AT [facility] 6720 (BEAKER) (test code = ETX [place] 1538) [address] TROPONIN [id number] 22:08:00 Test Item Value Reference Range Interpretation [...] neurological disease, and persistent tachyarrhythmia.HEPATITIS A ANTIBODY, [id number] 20:40:00 Test Item Value Reference Range Interpretation Comments HEPATITIS A IGG ANTIBODY (BEAKER) Reactive Nonreactive A (test code = 2797) ALPHA FETOPROTEIN (AFP), TUMOR [id number] 20:40:00 Test Item Value Reference Range Interpretation Comments ALPHA-FETOPROTEIN (BEAKER) (test code < ng/mL <10.0 = 1094) CARCINOEMBRYONIC ANTIGEN (CEA)2018-03-03 20:36:00 Test Item Value Reference Range Interpretation Comments CARCINOEMBRYONIC ANTIGEN (BEAKER) 2.2 ng/mL 0.0-5.0 (test code = 685) HEPATITIS B CORE ANTIBODY, [id number] 20:36:00 Test Item Value Reference Range Interpretation Comments HEPATITIS B CORE TOTAL ANTIBODY Nonreactive Nonreactive (BEAKER) (test code = 497) HEPATITIS B SURFACE [id number] 20:23:00 Test Item Value Reference Range Interpretation Comments HEPATITIS B SURFACE ANTIBODY < mIU/mL <8.0 (BEAKER) (test code = 647) HEPATITIS B SURFACE [id number] 20:22:00 Test Item Value Reference Range Interpretation Comments HEPATITIS B SURFACE ANTIGEN (2) Nonreactive Nonreactive (BEAKER) (test code = 2585) HEPATITIS C [id number] 20:22:00 Test Item Value Reference Range Interpretation Comments HEPATITIS C ANTIBODY (BEAKER) Nonreactive Nonreactive (test code = 367) POCT-GLUCOSE [id number] 19:30:00 Test Item Value Reference Range Interpretation Comments POC-GLUCOSE METER 169 mg/dL 70-110 H TESTED AT [facility] 6720 ([facility]) (test code = TEX Sh[place] [facility] 1538) [address] RAD, CHEST, 1 VIEW, NON [id number] 19:12:00Reason for exam:- >intubatedShould this be performed [...] MDReport Verified Date/Time: 03/03/2018 19:12:40 Reading Location: [address] Reading Room FECAL [id number] 18:56:00 Test Item Value Reference Range Interpretation Comments FECAL LEUKOCYTES No fecal leukocytes No fecal leukocytes (BEAKER) (test code = seen seen 992) RAD, ABDOMEN/KUB, 1 VIEW [id number] 18:41:00Reason for exam:->NGT placement FINAL REPORT Abdomen date 03/03/2018 Comment: Frontal view of the abdomen demonstrates a nasogastric tube present with tip noted in the in the body of the stomach. Signed: sIrael Barreport Verified Date/Time: 03/03/2018 18:41:41 Reading Location: [address] Consult ReadingRoom FERRITIN 2018-03-03 18:13:00 Test Item Value Reference Range Interpretation Comments FERRITIN (BEAKER) (test code = 361) 28 ng/mL 5-275 TROPONIN [id number] 17:26:00 Test Item Value Reference Range Interpretation [...] acute neurological disease, and persistent tachyarrhythmia.HEPATIC FUNCTION [id number] 17:19:00 Test Item Value Reference Range Interpretation [...] 20-55 (test code = 2590) BASIC METABOLIC [id number] 17:19:00 Test Item Value Reference Range Interpretation [...] DIALYSIS PATIEN TS. Specimen slightly ictericHEMOGLOBIN AND [id number] 17:15:00 Test Item Value Reference Range Interpretation Comments HEMOGLOBIN (BEAKER) (test code = 8.3 GM/DL 13.7-17.5 L 410) HEMATOCRIT (BEAKER) (test code = 25.7 % 40.1-51.0 L 411) PROTHROMBIN [id number] 16:53:00 Test Item Value Reference Range Interpretation Comments PROTIME (BEAKER) (test code = 16.1 seconds 11.7-14.7 H 759) INR (BEAKER) (test code = 370) 1.3 <=5.9 RECOMMENDED COUMADIN/WARFARIN INR THERAPY RANGESSTANDARD DOSE: 2.0 - 3.0 Includes: PROPHYLAXIS forvenous thrombosis, systemic embolization; TREATMENT for venous thrombosis and/or pulmonary embolus.HIGH RISK: Target INR is 2.5-3.5 for patients with mechanical heart valves.[id number] 16:53:00 Test Item Value Reference Range Interpretation Comments FIBRINOGEN LEVEL (BEAKER) (test 333 mg/dl 225-434 code = 658) [id number] 16:51:00 Test Item Value Reference Range Interpretation Comments PROCALCITONIN (BEAKER) (test code = < ng/mL <0.05 3036) SEPSIS RISK (ng/mL)Low: 0.05-0.50Intermediate: 0.51-2.00High: >=2.01BLOOD GAS, [id number] 16:07:00 Test Item Value Reference Range Interpretation [...] = 1819) 60.0 % EEG AWAKE AND [id number] 14:50:00Reason for exam:->altered mental statusEEG REPORT: Kay[facility] Arriaga[facility] Date of EEDate of report: EEG start time: 1216EEG end time: 1237EEG #: [id number] No: [id number] ICD Code: #: R41.82 Altered mental status, unspecified (ICD 9: 780.97)CPT Code: #: 81856: 03. EEG coma or sleep only; 20-40 [...] also be associated withother settings of widespread [employer] PRINCIPAL insults, including the aftermath of prolonged seizures. Intermittent attenuations reflect cortical suppression.Clinical Fellow: Henri YañezNeurophysiologist: Wil Mathias POCT-LACTIC ACID, [id number] 14:13:00 Test Item Value Reference Range Interpretation Comments POC-LACTIC ACID, 1.2 mmol/L 0.4-1.3 TESTED AT [facility] 6720 ARTERIAL (BEAKER) [facility] (test code = 2804) [address] POCT-BLOOD GASES, [id number] 14:13:00 Test Item Value Reference Range Interpretation Comments TEMP, CELSIUS-POC 37.0 (BEAKER) (test code = 1834) FIO2-POC (BEAKER) TESTED AT [place] [address] (test code = 1835) [facility] [address] PH, ARTERIAL-POC 7.496 7.350-7.450 H (BEAKER) (test [...] -2.0-3.0 ARTERIAL-POC (BEAKER) (test code = 1841) [id number] 14:13:00 Test Item Value Reference Range Interpretation Comments POC-SODIUM (BEAKER) 151 meq/L 135-148 H TESTED [place] [address] (test code = 1542) [facility] [address] CEOE-[id number] 14:13:00 Test Item Value Reference Range Interpretation Comments POC-POTASSIUM 3.7 meq/L 3.6-5.5 TESTED AT [place] [address] ([facility]) (test code [facility] [address] = 1540) [id number] 14:13:00 Test Item Value Reference Range Interpretation Comments POC-GLUCOSE (BEAKER) 170 mg/dL 70-110 H TESTED AT [place] [address] (test code = 1855) [facility] [address] POCT-CALCIUM [id number] 14:13:00 Test Item Value Reference Range Interpretation Comments POC-CALCIUM IONIZED 1.20 mmol/L 1.12-1.27 TESTED [place] [address] ([facility]) (test code = [facility] 1536) [address] [id number] 14:13:00 Test Item Value Reference Range Interpretation Comments POC-HEMATOCRIT 24 % 40-50 L TESTED AT [place] [address] ([facility]) (test code = [facility] [address] 9766) [id number] 14:13:00 Test Item Value Reference Range Interpretation Comments POC-HEMOGLOBIN 8.2 g/dL 13.0-16.8 L TESTED AT [facility] 6720 (BEAKER) (test code = TEX Shabazz [facility] 1856) [address]JXQDFH AT [place] [address] [place] [address] VITAMIN B12 AND [id number] 13:00:00 Test Item Value Reference Range Interpretation Comments VITAMIN B12 (BEAKER) (test code = 715 pg/mL 213-816 774) FOLATE (BEAKER) (test code = 362) 17.0 ng/mL >=7.0 POCT-GLUCOSE [id number] 12:55:00 Test Item Value Reference Range Interpretation Comments POC-GLUCOSE METER 190 mg/dL 70-110 H TESTED AT [place] [address] (BEAKER) (test code = DYLANMN Me[place] [facility] 1538) [address] [id number] 11:41:00 Test Item Value Reference Range Interpretation Comments PROCALCITONIN (BEAKER) (test code = < ng/mL <0.05 3036) SEPSIS RISK (ng/mL)Low: 0.05-0.50Intermediate: 0.51-2.00High: >=2.01URINALYSIS W/ REFLEX URINE [id number] 11:27:00 Test Item Value Reference Range Interpretation [...] (test code = 2795) TSH/FREE T4 IF [id number] 11:19:00 Test Item Value Reference Range Interpretation Comments THYROID STIMULATING HORMONE 2.67 uIU/mL 0.35-4.94 (BEAKER) (test code = 772) TROPONIN [id number] 11:04:00 Test Item Value Reference Range Interpretation [...] failure, acidosis, acute neurological disease, and persistent tachyarrhythmia.[id number] 11:00:00 Test Item Value Reference Range Interpretation Comments SODIUM (BEAKER) (test code = 381) 148 meq/L 136-145 H HEMOGLOBIN [id number] 10:53:00 Test Item Value Reference Range Interpretation Comments HEMOGLOBIN A1C (BEAKER) (test code = 6.2 % 4.3-6.1 H 368) [id number] 10:45:00 Test Item Value Reference Range Interpretation Comments AMMONIA (BEAKER) (test code = 348) 98 mol/L 18-72 H C. DIFFICILE GDH [id number] 09:57:00 Test Item Value Reference Range Interpretation Comments CDT TOXIN (test code Negative Negative = [id number]) CDT GDH ANTIGEN Positive Negative A C. difficile present but (test code = toxin not detec vikki. [id number]) Indicates colon ization with non-toxige amberly strain [...] of kit performance was done by the [facility] Microbiology Lab prior to clinical use.BASIC METABOLIC [id number] 07:28:00 Test Item Value Reference Range Interpretation [...] pg/mL 0-100 H (test code = 700) [id number] 06:52:00 Test Item Value Reference Range Interpretation Comments PHOSPHORUS (BEAKER) (test code = 2.3 mg/dL 2.3-4.7 604) [id number] 06:52:00 Test Item Value Reference Range Interpretation [...] code = 413) MR, MRA, BRAIN, WITHOUT [id number] 05:21:00Reason for exam:->Ischemic Stroke EvaluationFINAL REPORT MRI Brain without contrast Clinical History: Ischemic Stroke EvaluationAMS, Afib Technique: MRI of the brain utilizing axial T2, FLAIR, GRE, DWI; sagittal and coronal T1-weighted images. MRA of the head utilizing 3-D ksmm-wu-ubwwxt technique, with 3-D reconstructions. MRA of the neck utilizing 2-D and 3-D zjxg-ds-rsbrfq technique, with 3-D reconstructions. Comparisons: None Findings:MRI [...] MRA head: No evidence for a major [place] proximal branch vessel occlusion. MRA [...] Verified Date/Time: 03/03/2018 05:21:46 Reading Location: [address] Transitional Reading Room MR, MRA, NECK, WITHOUT IV [id number] 05:21:00 Reason for exam:->Ischemic Stroke EvaluationFINAL REPORT MRI Brain without contrast Clinical History: Ischemic Stroke Eval uationAMS, Afib Technique: MRI of the brain utilizing axial T2, FLAIR, GRE, DWI; sagittal and coronal T1-weighted images. MRA of the head utilizing 3-D shyn-bl-hghrzq technique, with 3-D reconstructions. MRA of the neck utilizing 2- D and 3-D lvkr-ql-kxzizr technique, with 3-D reconstructions. Comparisons: None Findings:MRI [...] MRA head: No evidence for a major [place] proximal branch vessel occlusion. MRA [...] MDReport Verified Date/Time: 03/03/2018 05:21:46 Reading Location: [address] Reading Room MR, BRAIN, WITHOUT [id number] 05:21:00Reason for exam:->Ischemic Stroke EvaluationFINAL REPORT MRI Brain without contrast Clinical History: Ischemic Stroke EvaluationAMS, Afib Technique: MRI of the brain utilizing axial T2, FLAIR, GRE, DWI; sagittal and coronal T1-weighted images. MRA of the head utilizing 3-D ijcs-cj-vbvnuv technique, with 3-D reconstructions. MRA of the neck utilizing 2-D and 3-D ywam-fz-nwpeyg technique, with 3-D reconstructions. Comparisons: None Findings:MRI [...] MRA head: No evidence for a major [place] proximal branch vessel occlusion. MRA [...] Jha Verified Date/Time: 03/03/2018 05:21:46 Reading Location: [address] Reading Room POCT-GLUCOSE [id number] 05:15:00 Test Item Value Reference Range Interpretation Comments POC-GLUCOSE METER 207 mg/dL 70-110 H TESTED AT [place] [address] ([facility]) (test code = [place] 1538) [address] RAD, CHEST, 1 VIEW, NON [id number] 01:11:00Reason for exam:->AMSShould this be performed at [...] MDReport Verified Date/Time: 03/03/2018 01:11:47 Reading Location: [address] Reading Room URINALYSIS WITH MICROSCOPIC IF [id number] 00:58:00 Test Item Value Reference Range Interpretation [...] 463) SOURCE(BEAKER) (test code = 2795) URINALYSIS [id number] 00:58:00 Test Item Value Reference Range Interpretation Comments RBC UA (BEAKER) (test code = 519) 1 /HPF WBC UA (BEAKER) (test code = 520) 1 /HPF SQUAMOUS EPITHELIAL (BEAKER) (test < /HPF code = 516) AMORPHOUS CRYSTALS (BEAKER) (test Occasional code = 1584) CT, BRAIN/STROKE [id number] 23:16:00FINAL REPORT CT Head without contrast CLINICAL [...] Verified Date/Time: 03/02/2018 23:16:55 Reading Location: [address] Transitional Reading Room IC ACID, VENOUS, WHOLE [id number] 22:01:00 Test Item Value Reference Range Interpretation Comments LACTATE BLOOD VENOUS (2) (BEAKER) 1.6 mmol/L 0.5-2.2 (test code = 2872) POCT-GLUCOSE [id number] 21:31:00 Test Item Value Reference Range Interpretation Comments POC-GLUCOSE METER 207 mg/dL 70-110 H TESTED AT [facility] 6720 (BEAKER) (test code = DYLANCAR[place]OTTA Shabazz [facility] 1538) [address] OCCULT BLOOD, [id number] 19:48:00 Test Item Value Reference Range Interpretation Comments FECAL OCCULT BLOOD (BEAKER) (test Positive Negative A code = 618) BASIC METABOLIC [id number] 17:26:00 Test Item Value Reference Range Interpretation [...] APPLICABLE FOR DIALYSIS PATIEN TS. HEMOGLOBIN AND [id number] 17:09:00 Test Item Value Reference Range Interpretation Comments HEMOGLOBIN (BEAKER) (test code = 8.2 GM/DL 13.7-17.5 L 410) HEMATOCRIT (BEAKER) (test code = 25.7 % 40.1-51.0 L 411) POCT-GLUCOSE [id number] 16:40:00 Test Item Value Reference Range Interpretation Comments POC-GLUCOSE METER 212 mg/dL 70-110 H TESTED AT [facility] 6720 ([facility]) (test code = [place] 1538) [address] CT, BRAIN, WITHOUT [id number] 12:26:00FINAL REPORT CT head without contrast 03/02/2018 [...] Gaona Verified Date/Time: 03/02/2018 12:26:23 Reading Location: [facility] C013V Neuro Reading Room HEMOGLOBIN AND [id number] 12:14:00 Test Item Value Reference Range Interpretation Comments HEMOGLOBIN (BEAKER) (test code = 8.3 GM/DL 13.7-17.5 L 410) HEMATOCRIT (BEAKER) (test code = 25.9 % 40.1-51.0 L 411) POCT-GLUCOSE [id number] 10:26:00 Test Item Value Reference Range Interpretation Comments POC-GLUCOSE METER 178 mg/dL 70-110 H TESTED AT [facility] 6720 (BEAKER) (test code = TEX Sh[place]azz [facility] 1538) [address] [id number] 05:10:00 Test Item Value Reference Range Interpretation Comments MAGNESIUM (BEAKER) (test code = 2.2 mg/dL 1.6-2.6 627) BASIC METABOLIC [id number] 05:10:00 Test Item Value Reference Range Interpretation [...] 0-0 (test code = 413) BASIC METABOLIC [id number] 06:30:00 Test Item Value Reference Range Interpretation [...] PATIEN TS. CBC W/PLT COUNT & AUTO [id number] 06:30:00 Test Item Value Reference Range Interpretation [...] = 2801) RAD, CHEST, 1 VIEW, NON [id number] 04:10:00post-operative day 1Reason for exam:->chfShould this be [...] Jha Verified Date/Time: 09/11/2017 04:10:08 Reading Location: [address] Reading Room BASIC METABOLIC PANEL 2017-09-11 [...] Specimen slightly ictericCBC W/PLT COUNT & AUTO [id number] 03:48:00 Test Item Value Reference Range Interpretation [...] 0-1 PERCENT (BEAKER) (test code = 2801) [id number] 16:36:00 Test Item Value Reference Range Interpretation Comments ACTIVATED CLOTTING TIME 142 sec TEST ED AT [place] [address] (BEAKER) (test code = TEX [place] [address]) [address] [id number] 16:02:00 Test Item Value Reference Range Interpretation Comments ACTIVATED CLOTTING TIME 279 sec TEST ED AT [place] [address] ([facility]) (test code = [facility] [place] [address]) [address] [id number] 16:02:00 Test Item Value Reference Range Interpretation Comments ACTIVATED CLOTTING TIME 252 sec TEST ED AT [place] [address] ([facility]) (test code = [place] [address]) [address] B-TYPE NATRIURETIC FACTOR (BNP)2017-08-24 15:17:00 Test Item Value Reference Range Interpretation Comments B-TYPE NATRIURETIC PEPTIDE (BEAKER) 170 pg/mL 0-100 H (test code = 700) BASIC METABOLIC [id number] 15:08:00 Test Item Value Reference Range Interpretation [...] APPLICABLE FOR DIALYSIS PATIEN TS. Specimen slightly [id number] 15:08:00 Test Item Value Reference Range Interpretation Comments ALBUMIN (BEAKER) (test code = 1145) 4.2 g/dL 3.5-5.0 PROTHROMBIN [id number] 14:59:00 Test Item Value Reference Range Interpretation [...] (BEAKER) (test code = 2801) BASIC METABOLIC [id number] 06:31:00 Test Item Value Reference Range Interpretation [...] APPLICABLE FOR DIALYSIS PATIEN TS. URINALYSIS W/ [id number] 17:39:00 Test Item Value Reference Range Interpretation [...] SOURCE(BEAKER) (test code Urine, Clean Catch = 2478) BASIC METABOLIC [id number] 05:57:00 Test Item Value Reference Range Interpretation [...] PATIEN TS. CBC W/PLT COUNT & AUTO [id number] 05:36:00 Test Item Value Reference Range Interpretation [...] (BEAKER) (test code = 2801) BASIC METABOLIC [id number] 07:35:00 Test Item Value Reference Range Interpretation [...] DIALYSIS PATIEN TS. Specimen slightly ictericBASIC METABOLIC [id number] 06:09:00 Test Item Value Reference Range Interpretation [...] = 700) RAD, CHEST, 1 VIEW, NON [id number] 17:23:00Reason for exam:->chfShould this be performed at [...] MDReport Verified Date/Time: 07/28/2017 17:23:24 Reading Location: [facility] Radiology Reading Room URINE [id number] 10:09:00 Test Item Value Reference Interpretation Comments [...] 47) Resistant <0 or >40 COMPREHENSIVE METABOLIC [id number] 07:06:00 Test Item Value Reference Range Interpretation [...] Specimen slightly ictericCBC W/PLT COUNT & AUTO [id number] 06:35:00 Test Item Value Reference Range Interpretation [...] (BEAKER) (test code = 2801) URINALYSIS W/ [id number] 18:38:00 Test Item Value Reference Range Interpretation [...] SOURCE(BEAKER) (test code Urine, Clean Catch = 5056) CBC W/PLT COUNT & AUTO [id number] 04:47:00 Test Item Value Reference Range Interpretation [...] (BEAKER) (test code = 2801) BASIC METABOLIC [id number] 04:36:00 Test Item Value Reference Range Interpretation [...] pg/mL 0-100 H (test code = 700) [id number] 07:02:00 Test Item Value Reference Range Interpretation [...] (BEAKER) (test code = 413) CT, CTA, [id number] 16:16:00Addendum BeginsREPORT STATUS:A Addendum: July 22, 2017 at 1620 hours I have reviewed the CT images for this study and I concur with the nonvascular imaging findings as dictated. Si gned: Sandip Christianson MDReport Verified Date/Time: 07/22/2017 16:16:14 Reading Location: [place] [address] Angio Body Reading RoomAddendum EndsFINAL REPORT CT [...] An addendum will be dictated by the Linux Server Engineer Radiologist regarding the nonvascular findings. Signed: Abdoul Galloway MDReport Verified Date/Time: 07/22/2017 15:43:41 Reading Location: [place] [address], CTA [id number] 16:16:00TAVRAddendum BeginsREPORT STATUS:A Addendum: July 22, 2017 at 1620 hours I have reviewed the CT images for this study and I concur with the nonvascular imaging findings as dictated. Si gned: Sandip Christianson MDReport Verified Date/Time: 07/22/2017 16:16:14 Reading Location: [place] [address] Angio Body Reading RoomAddendum EndsFINAL REPORT CT [...] An addendum will be dictated by the Linux Server Engineer Radiologist regarding the nonvascular findings. Signed: Abdoul Galloway MDReport Verified Date/Time: 07/22/2017 15:43:41 Reading Location: [place] [address] Cardiology MRI [facility] METABOLIC [id number] 05:06:00 Test Item Value Reference Range Interpretation [...] 0-100 H (test code = 700) POCT-GLUCOSE [id number] 20:48:00 Test Item Value Reference Range Interpretation Comments POC-GLUCOSE METER 133 mg/dL 70-110 H TESTED AT [facility] 6720 (BEAKER) (test code = [place] 1538) [address] [id number] 06:17:00 Test Item Value Reference Range Interpretation Comments PHOSPHORUS (BEAKER) (test code = 2.3 mg/dL 2.3-4.7 604) [id number] 06:17:00 Test Item Value Reference Range Interpretation Comments MAGNESIUM (BEAKER) (test code = 2.2 mg/dL 1.6-2.6 627) BASIC METABOLIC [id number] 06:17:00 Test Item Value Reference Range Interpretation [...] PATIEN TS. CBC W/PLT COUNT & AUTO [id number] 05:58:00 Test Item Value Reference Range Interpretation [...] 0-1 PERCENT (BEAKER) (test code = 2801) [id number] 05:42:00 Test Item Value Reference Range Interpretation Comments MAGNESIUM (BEAKER) (test code = 2.2 mg/dL 1.6-2.6 627) BASIC METABOLIC [id number] 05:42:00 Test Item Value Reference Range Interpretation [...] PATIEN TS. CBC W/PLT COUNT & AUTO [id number] 08:51:00 Test Item Value Reference Range Interpretation [...] (BEAKER) (test code = 2801) BASIC METABOLIC [id number] 06:59:00 Test Item Value Reference Range Interpretation [...] APPLICABLE FOR DIALYSIS PATIEN TS. Specimen slightly [id number] 06:50:00 Test Item Value Reference Range Interpretation Comments MAGNESIUM (BEAKER) (test code = 2.2 mg/dL 1.6-2.6 627) [id number] 14:04:00 Test Item Value Reference Range Interpretation Comments CORTISOL, TOTAL (BEAKER) (test 14.3 ug/dL 3.7-19.4 code = 2755) B-TYPE NATRIURETIC FACTOR (BNP)2017-07-17 05:11:00 Test Item Value Reference Range Interpretation Comments B-TYPE NATRIURETIC PEPTIDE (BEAKER) 462 pg/mL 0-100 H (test code = 700) URIC [id number] 05:09:00 Test Item Value Reference Range Interpretation Comments URIC ACID (BEAKER) (test code = 9.8 mg/dL 2.6-7.2 H 773) [id number] 05:09:00 Test Item Value Reference Range Interpretation Comments MAGNESIUM (BEAKER) (test code = 2.0 mg/dL 1.6-2.6 627) COMPREHENSIVE METABOLIC [id number] 05:09:00 Test Item Value Reference Range Interpretation [...] PATIEN TS. CBC W/PLT COUNT & AUTO [id number] 04:52:00 Test Item Value Reference Range Interpretation [...] = 2801) RAD, CHEST, 1 VIEW, NON [id number] 04:01:00Reason for exam:- >oliguriaShould this be performed [...] MDReport Verified Date/Time: 07/17/2017 04:01:10 Reading Location: [address] Reading Room SODIUM, RANDOM URINE 2017-07-16 19:25:00 Test Item Value Reference Range Interpretation Comments SODIUM URINE (BEAKER) (test code = < meq/L 243) Reference Range: No NormalsCREATININE, RANDOM [id number] 19:14:00 Test Item Value Reference Range Interpretation Comments CREATININE URINE (BEAKER) (test 131.4 mg/dL code = 375) Reference Range: No NormalsPROTEIN, RANDOM [id number] 19:14:00 Test Item Value Reference Range Interpretation Comments PROTEIN, URINE (BEAKER) (test code = 23 mg/dL 0-14 H 1569) OSMOLALITY, [id number] 19:00:00 Test Item Value Reference Range Interpretation Comments OSMOLALITY URINE (BEAKER) (test 346 mOsm/kg 40-1400 code = 614) RAD, CHEST, 1 VIEW, NON [id number] 16:22:00Reason for exam:->central line placementShould this be performed at the bedside?->YesFINAL REPORT TECHNIQUE: Frontal chest radiograph dated 07/16/2017. CLINICAL HI STORY: Central line placement COMPARISON STUDY: Chest radiograph performed earlier the same day. IMPRESSION:Right-sided [place] catheter tip projects over the affected region [...] 07/16/2017 16:22:02 Reading Location: [facility] Radiology Reading Room RAD, CHEST, 1 VIEW, NON [id number] 09:32:00Reason for exam:->cxfShould this be performed at [...] MDReport Verified Date/Time: 07/16/2017 09:32:51 Reading Location: [facility] Radiology Reading Room B-TYPE NATRIURETIC FACTOR (BNP)2017-07-16 02:38:00 Test Item Value Reference Range Interpretation Comments B-TYPE NATRIURETIC PEPTIDE (BEAKER) 251 pg/mL 0-100 H (test code = 700) BASIC METABOLIC [id number] 02:32:00 Test Item Value Reference Range Interpretation [...] TS. Specimen slightly ictericLACTIC ACID, VENOUS, WHOLE [id number] 02:28:00 Test Item Value Reference Range Interpretation [...] (BEAKER) (test code = 413) HEMOGLOBIN AND [id number] 19:53:00 Test Item Value Reference Range Interpretation Comments HEMOGLOBIN (BEAKER) (test code = 9.4 GM/DL 13.7-17.5 L 410) HEMATOCRIT (BEAKER) (test code = 29.0 % 40.1-51.0 L 411) B-TYPE NATRIURETIC FACTOR (BNP)2017-07-15 16:30:00 Test Item Value Reference Range Interpretation Comments B-TYPE NATRIURETIC PEPTIDE (BEAKER) 155 pg/mL 0-100 H (test code = 700) [id number] 16:23:00 Test Item Value Reference Range Interpretation Comments MAGNESIUM (BEAKER) 2.0 mg/dL 1.6-2.6 Specimen slightly (test code = 627) hemolyzed BASIC METABOLIC [id number] 16:23:00 Test Item Value Reference Range Interpretation [...] TS. Specimen slightly ictericLACTIC ACID, VENOUS, WHOLE [id number] 16:19:00 Test Item Value Reference Range Interpretation [...] (BEAKER) (test code = 412) PLATELET COUNT ([facility]) (test 127 K/CU MM 150-450 L code = 756) MEAN PLATELET VOLUME (AKER) 11.5 fL 9.4-12.4 (test code = 754) NUCLEATED RED BLOOD CELLS 0 /100 WBC 0-0 ([facility]) (test code = 413) [id number] 12:47:00 Test Item Value Reference Range Interpretation Comments ACTIVATED CLOTTING TIME 224 sec TEST ED AT [place] [address] ([facility]) (test code = TEX HYDE [facility]) [address] [id number] 12:47:00 Test Item Value Reference Range Interpretation Comments ACTIVATED CLOTTING TIME 257 sec TEST ED AT [place] [address] ([facility]) (test code = TEX HYDE [facility]) [id number] 12:47:00 Test Item Value Reference Range Interpretation Comments ACTIVATED CLOTTING TIME 219 sec TEST ED AT [place] [address] ([facility]) (test code = TEX [place] [address]) [id number]
--- NOTE | 2020-02-13 18:28 | RAD REPORT ---
EXAM DESCRIPTION: CT - CTHCSPWOC - 02/13/2020 5:46 pm CLINICAL HISTORY: Trauma, head and neck injury. fall COMPARISON: CT HEAD CSPINE MPR WO CONTRAST dated 06/27/2011 TECHNIQUE: Axial 5 mm thick images of the head were obtained. Axial 2 mm thick images of the cervical spine were obtained with sagittal and coronal reconstruction images generated and reviewed. All CT scans are performed using dose optimization technique as appropriate and may include automated exposure control or mA/KV adjustment according to patient size. FINDINGS: CT HEAD WITHOUT CONTRAST: No acute hemorrhage, hydrocephalus or extra-axial collection is identified.Moderate brain atrophy is noted.No areas of brain edema or midline shift. Moderate soft tissue swelling left periorbital region.No globe abnormality detected. Mild mucosal thi ckening is seen the inferior maxillary antra. The paranasal sinuses mastoids are otherwise clear.The calvarium is intact. CT CERVICAL SPINE WITHOUT CONTRAST: No fracture or subluxation.Moderate multilevel midcervical degenerative changes.No prevertebral soft tissues swelling is identified. Atherosclerosis is seen both carotid arteries. IMPRESSION: No acute intracranial or cervical spine findings. Moderate periorbital soft tissue swelling on the left without globe abnormality.
[2020-02-13] MEDS ORDERED: DERMABOND SKIN ADHESIVE TOP ONE (18:29)
--- NOTE | 2020-02-13 18:31 | RAD REPORT ---
EXAM DESCRIPTION: RAD - Forearm Left - 02/13/2020 6:17 pm CLINICAL HISTORY: PAIN Fall, left arm pain COMPARISON: No comparisons FINDINGS: Diffuse osteopenia is seen. No acute fracture or subluxation. Vascular calcification is ev ident.
--- NOTE | 2020-02-13 18:45 | EDPHYS ---
Physician Documentation [facility] Name: Chris Mcwilliams Age: 89 yrs Sex: Male : 1930 Arrival Date: 02/13/2020 Time: 17:21 Bed 6 Private MD: ED Physician Familia Andrade HPI: 02/12 17:21 This 89 yrs old Male presents to ER via Unassigned with complaints of Fall ps1 Injury. 17:21 mechanical fall going in the front door and fell. Usually walks with a cane. No LOC. No ps1 blood thinners. Left periorbital hematoma and skin tear on left forearm. Pain is mild. No nausea and vomiting. GCS 15. . Historical: - Allergies: 17:22 NKDA; sv - PMHx: 17:22 Atrial Fib; bowel obstruction; CHF; Diabetes - IDDM; Diverticulitis; Hyperlipidemia; sv Hypertension; Myocardial infarction; - Immunization history: Last tetanus immunization: unknown. - Social history:: Smoking status: Patient denies any tobacco usage or history of. ROS: 17:21 Constitutional: Negative for fever, chills, and weight loss, Eyes: Negative for injury, ps1 pain, redness, and discharge, Cardiovascular: Negative for chest pain, palpitations, and edema, Respiratory: Negative for shortness of breath, cough, wheezing, and pleuritic chest pain, Abdomen/GI: Negative for abdominal pain, nausea, vomiting, diarrhea, and constipation, Neuro: Negative for headache, weakness, numbness, tingling, and seizure. 17:21 MS/extremity: Positive for contusion, pain, of the left eye and left confucianism. 17:21 Skin: Positive for of the dorsal aspect of left forearm, skin tear. Exam: 17:21 Constitutional: This is a well developed, well nourished patient who is awake, alert, ps1 and in no acute distress. Eyes: Pupils equal round and reactive to light, extra-ocular motions intact. Lids and lashes normal. Conjunctiva and sclera are non-icteric and not injected. ENT: Nares patent. No nasal discharge, no septal abnormalities noted. Tympanic membranes are normal and external auditory canals are clear. Oropharynx with no redness, swelling, or masses, exudates, or evidence of obstruction, uvula midline. Mucous membranes moist. Chest/axilla: Normal chest wall appearance and motion. Nontender with no deformity. No lesions are appreciated. Cardiovascular: Regular rate and rhythm. No gallops, murmurs, or rubs. Normal PMI, no JVD. No pulse deficits. Respiratory: Lungs have equal breath sounds bilaterally, clear to auscultation and percussion. No rales, rhonchi or wheezes noted. No increased work of breathing, no retractions or nasal flaring. Abdomen/GI: Soft, non-tender, with normal bowel sounds. No distension or tympany. No guarding or rebound. No evidence of tenderness throughout. MS/ Extremity: Pulses equal, no cyanosis. Neurovascular intact. Full, normal range of motion. Neuro: Awake and alert, GCS 15, oriented to person, place, time, and situation. Cranial nerves II-XII grossly intact. Sensory grossly intact. Psych: Awake, alert, with orientation to person, place and time. Behavior, mood, and affect are within normal limits. 17:21 Head/face: Noted is abrasion(s), contusion, that is deep, of the left confucianism and left eye. 17:21 Skin: injury, abrasion(s), moderate sized abrasion noted, of the dorsal aspect of left forearm. Vital Signs: 17:21 BP 138 / 71; Pulse 80; Resp 16; Temp 97.8(O); Pulse Ox 97% ; sv Jeannette Coma Score: 17:21 Eye Response: spontaneous(4). Verbal Response: oriented(5). Motor Response: obeys sv commands(6). Total: 15. Trauma Score (Adult): 17:21 Eye Response: spontaneous(1); Verbal Response: oriented(1); Motor Response: obeys sv commands(2); Systolic BP: > 89 mm Hg(4); Respiratory Rate: 10 to 29 per min(4); Jeannette Score: 15; Trauma Score: 12 MDM: 17:26 Patient medically screened. ps1 02/12 17:26 Order name: CT Head C Spine; Complete Time: 18:41 ps1 02/12 17:26 Order name: Forearm Left XRAY; Complete Time: 18:41 ps1 Administered Medications: No medications were administered Disposition: 02/13/20 18:44 Discharged to Home. Impression: Closed head injury, Periorbital hematoma, Facial laceration, Left arm skin tear. - Condition is Stable. - Discharge Instructions: Laceration Care, Adult, Skin Tear Care. - Medication Reconciliation Form, Thank You Letter, Antibiotic Education, Prescription Opioid Use form. - Follow up: Private Physician; When: As needed; Reason: Continuance of care, Re-evaluation by your physician. Follow up: Emergency Department; When: As needed; Reason: Worsening of condition. - Problem is new. - Symptoms have improved. Signatures: Dispatcher [employer] EDCarissa Jain, RN Rhina Tovar RN RN iw Kendall Ceja RN RN jl7 Familia Andrade MD MD ps1 Corrections: (The following items were deleted from the chart) 19:27 18:44 02/13/2020 18:44 Discharged to Home. Impression: Closed head injury; Periorbital iw hematoma; Facial laceration; Left arm skin tear. Condition is Stable. Forms are Medication Reconciliation Form, Thank You Letter, Antibiotic Education, Prescription Opioid Use. Follow up: Private Physician; When: As needed; Reason: Continuance of care, Re-evaluation by your physician. Follow up: Emergency Department; When: As needed; Reason: Worsening of condition. Problem is new. Symptoms have improved. ps1
--- NOTE | 2020-02-13 18:45 | ER ---
Nurse's Notes [facility] Name: Chris Mcwilliams Age: 89 yrs Sex: Male : 1930 Arrival Date: 02/13/2020 Time: 17:21 Bed 6 Private MD: Diagnosis: Closed head injury;Periorbital hematoma;Facial laceration;Left arm skin tear Presentation: 02/12 17:22 Coronavirus screen: Client denies travel out of the [place] in the last 14 days. At this sv time, the client does not indicate any symptoms associated with coronavirus-19. Ebola Screen: No symptoms or risks identified at this time. Initial Sepsis Screen: Does the patient meet any 2 criteria? No. Patient's initial sepsis screen is negative. Does the patient have a suspected source of infection? No. Patient's initial sepsis screen is negative. Risk Assessment: Do you want to hurt yourself or someone else? Patient reports no desire to harm self or others. Onset of symptoms was February 13, 2020. 17:22 Method Of Arrival: EMS: [facility] 17:22 Chief complaint: EMS states: Fell from standing, hit left eye, hematoma to left eye, jl7 abrasion to left forearm, denies LOC, denies blood thinner. Care prior to arrival: Bleeding of injury controlled. Injury dressed. Mechanism of Injury: Fall from standing position. Trauma event details: Injury occurred in the [facility], Injury occurred: at home. Injury occurred: February 13, 2020 Injury occurred at: 16:30. 17:22 Acuity: BOB 3 jl7 17:22 Method Of Arrival: EMS: [place] [address] Trauma Activation: Not Applicable Physician: ED Physician; Name: ; Notified At: ; Arrived At: Physician: General Surgeon; Name: ; Notified At: ; Arrived At: Physician: Radiology; Name: ; Notified At: ; Arrived At: Physician: Respiratory; Name: ; Notified At: ; Arrived At: Physician: Lab; Name: ; Notified At: ; Arrived At: Historical: - Allergies: 17:22 NKDA; sv - PMHx: 17:22 Atrial Fib; bowel obstruction; CHF; Diabetes - IDDM; Diverticulitis; Hyperlipidemia; sv Hypertension; Myocardial infarction; - Immunization history: Last tetanus immunization: unknown. - Social history:: Smoking status: Patient denies any tobacco usage or history of. Screenin:23 Abuse screen: Denies threats or abuse. Denies injuries from another. Nutritional sv screening: No deficits noted. Tuberculosis screening: No symptoms or risk factors identified. Fall Risk No fall in past 12 months (0 pts). No secondary diagnosis (0 pts). No IV (0 pts). Ambulatory Aid- None/Bed Rest/Nurse Assist (0 pts). Gait- Normal/Bed Rest/Wheelchair (0 pts) Mental Status- Oriented to own ability (0 pts). Total Head Fall Scale indicates No Risk (0-24 pts). Primary Survey: 17:30 NO uncontrolled hemorrhage observed. Breathing/Chest: Respiratory pattern: regular. jl7 Circulation: Skin color: pink, Skin temperature: warm. Disability Alert. Exposure/Environment: Obvious injury(ies) are noted at this time: left arm and left eye. 18:00 Reassessment Breathing/Chest Respiratory pattern Regular Respiratory effort Spontaneous jl7 Unlabored Chest inspection Symmetrical Circulation Color [place] Disability Alert. Secondary Survey: 17:30 HEENT: Eyes: Edema noted left eye. Ecchymosis noted left eye. Gastrointestinal: No sv deficits noted. : No deficits noted. No signs and/or symptoms were reported regarding the genitourinary system. Musculoskeletal: No deficits noted. No signs and/or symptoms reported regarding the musculoskeletal system. Injury Description: Laceration sustained to left eye Skin tears sustained to dorsal aspect of left forearm. Assessment: 17:22 General: Appears in no apparent distress. uncomfortable, Behavior is calm, cooperative, jl7 appropriate for age. Pain: Denies pain. Neuro: Level of Consciousness is awake, alert, obeys commands, Oriented to person, place, time, situation. Cardiovascular: Patient's skin is warm and dry. Respiratory: Airway is patent Respiratory effort is even, unlabored, Respiratory pattern is regular, symmetrical. Derm: Skin is pink, warm \T\ dry. Musculoskeletal: Swelling present in left eye. Injury Description: Abrasion sustained to left arm. 18:17 Reassessment: Dr. Andrade at bedside. jl7 18:45 Reassessment: Assisted pt with urinal. jl7 19:00 Reassessment: Patient appears in no apparent distress at this time. Patient and/or jb4 family updated on plan of care and expected duration. Pain level reassessed. Patient is alert, oriented x 3, equal unlabored respirations, skin warm/dry/pink. Vital Signs: 17:21 BP 138 / 71; Pulse 80; Resp 16; Temp 97.8(O); Pulse Ox 97% ; sv Jeannette Coma Score: 17:21 Eye Response: spontaneous(4). Verbal Response: oriented(5). Motor Response: obeys sv commands(6). Total: 15. Trauma Score (Adult): 17:21 Eye Response: spontaneous(1); Verbal Response: oriented(1); Motor Response: obeys sv commands(2); Systolic BP: > 89 mm Hg(4); Respiratory Rate: 10 to 29 per min(4); [place] Score: 15; Trauma Score: 12 ED Course: 17:21 Patient arrived in ED. sv 17:21 Familia Andrade MD is Attending Physician. ps1 17:22 Kendall Ceja RN is Primary Nurse. jl7 17:23 Arm band placed on. sv 17:23 Patient has correct armband on for positive identification. Bed in low position. Call sv light in reach. Side rails up X2. Adult w/ patient. Pulse ox on. NIBP on. Door closed. Head of bed elevated. 17:23 Patient maintains SpO2 saturation greater than 95% on room air. sv 17:24 Triage completed. jl7 17:24 Thermoregulation: warm blanket given to patient. sv 17:47 CT Head C Spine In Process Unspecified. EDMS 18:16 Forearm Left XRAY In Process Unspecified. EDMS 18:45 Report given to SARAH Gunderson. jl7 18:55 Wound care: to Skin tear located on dorsal aspect of left forearm was cleaned with soap jl7 and water, dressed with Neosporin, cling, non stick gauze, Patient tolerated well. 19:15 No provider procedures requiring assistance completed. Patient did not have IV access jb4 during this emergency room visit. Administered Medications: No medications were administered Intake: 17:21 PO: 0ml; Total: 0ml. sv Output: 17:21 Urine: 0ml; Total: 0ml. sv Outcome: 18:44 Discharge ordered by . ps1 19:15 Discharged to home via wheelchair. jb4 19:15 Condition: stable 19:15 Discharge instructions given to patient, Instructed on discharge instructions, follow up and referral plans. Demonstrated understanding of instructions, follow-up care. 19:15 Patient's length of stay was not longer than 2 hours. jb4 19:27 Patient left the ED. iw Signatures: Dispatcher [employer] Carissa Betancur, RN Rhina Tovar RN RN iw Bryson, James, RN RN jb4 Kendall Ceja RN RN jl7 Familia Andrade MD MD ps1
[2020-02-16 11:40] VITALS: BP 138/71; TEMP 97.8; O2SAT 97
== END 2020-02-13 19:27 | disposition home or self-care (01) ==
LOC: ER 17:18
DX: S01.81XA Laceration without foreign body of other part of head, initial encounter (principal); S51.812A Laceration without foreign body of left forearm, initial encounter; W01.198A Fall on same level from slipping, tripping and stumbling with subsequent striking against other object, initial encounter; Y93.89 Activity, other specified; Y92.9 Unspecified place or not applicable; I10 Essential (primary) hypertension
CPT/HCPCS: 70450; 72125; 99284

== ENCOUNTER 2020-09-01 11:38 | Inpatient (IN) | payer MEDICARE, BC ==
--- OUTSIDE RECORDS SUMMARY | 2020-09-01 11:57 | XMS REPORT | Continuity of Care Document ---
:1930 Author Organization [facility] t Address [address] [place] [address] Care Team Providers Name Role Phone Alicia [...] kes - athy athy 00:00: Medical 00 [place] Acute Acute Disease Active [address] [facility] hypoxemic hypoxemic 1-03 [facility] - respirator respirator 00:00: Me dical y failure y failure 00 Cent er Acute Acute Disease Active [facility] encephalop encephalop 1-03 Sruthi kes - athy athy 00:00: Medical 00 [place] Acute Acute Disease Active [address] [facility] encephalop encephalop 1-02 Sruthi kes - athy athy 00:00: Medical 00 [place] Generalize Generalize Disease Active 2019-[address] d weakness d weakness 1- Sruthi kes - 00:00: Medical 00 [place] Dementia Dementia Disease Active 2019[facility] - 00:[facility]: Medical 00 [place] GI bleed GI bleed Disease Active 2018- [facility] - 00:00: Medical 00 [place] 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 7-12 [facility] - 00:00: Medical 00 Center Coronary Coronary Disease Active [facility] artery artery 5-17 [facility] - disease disease 00:00: Medical due to due to 00 [place] calcified calcified coronary coronary lesion lesion Coronary Coronary Disease Active [facility] artery artery 5-16 kes - disease disease 00:00: Medical 00 Center CHF CHF Disease Active [facility] (congestiv (congestiv Sruthi kes - e heart e heart Medical failure) failure) Center S/P CABG S/P CABG Disease Active [facility] (coronary (coronary Lu s - artery artery Medical bypass bypass Center graft) graft) Atrial Atrial Disease Active [facility] fibrillati fibrillati [facility] - on on [facility] Hyperlipid Hyperlipid Disease Active [facility]O (acute GERARDO (acute Disease Active Overview : [facility] kidney kidney creatinin [facility] - injury) injury) e 1.0 to Medica l 2.58 Center Anemia Anemia Disease Active [facility] UGIB UGIB Disease Active [facility] St [facility] gastrointe Me dical stinal stinal Center bleed) bleed) Thrombocyt Thrombocyt Disease Active [facility] Pulmonary Pulmonary Disease Active [facility] hypertensi hypertensi [facility] - on on [facility] Advanced Advanced Disease Active [facility] Frailty Frailty Disease Active [facility] Allergies, Adverse Reactions, Alerts Allergy Allergy Status Severity Reaction(s) Onset Inactive Treating Comm ents Source Name Type Date Date Clinician Levoshivani Dowensi Active Rash [facility] ac[facility] ty to 4-17 [facility] - adverse 00:00: Medical reaction 00 [place] Metformi Propensi Active Rash [facility] n ty to 4-17 kes - adverse 00:00: Medical reaction 00 [place] Social History Social Habit Start Date Stop Date Quantity Comments Source Sex Assigned At [facility] Tobacco use and 2018-08-23 2018-08-23 Never used [facility] - exposure 00:00:00 00:00:00 [facility] Alcohol intake 2018-08-23 2018-08-23 Current [facility] es - 00:00:00 00:00:00 non-drinker of Medical Ce nter alcohol (finding) Tobacco Comment 2017-08-24 2017-08-24 quit in [address] [facility] - 00[facility] Center Smoking Status Start Date Stop Date Source Former smoker 2018-08-23 00:00:00 2018-08-23 00:00:[address] [facility] - [facility] Medications Ordered Filled Start Stop Current Ordering Indication Dosage Frequency Signature Comments Components Source Medication Medication Date Date Medication? Clinician (SIG) Name Name lactulose Yes 20g Take 30 [facility] (CHRONULAC) 1-12 mLs (20 g Yonis es - 20 gram/30 00:00: total) by Me dical mL solution 00 mouth 3 Cente r (three) times daily as needed (constipat ion, confusion) . pantoprazol Yes 40mg QD Take [address] e 1-12 tablet (40 [facility] - (PROTONIX) 00:00: mg total) Me dical 40 MG 00 by mouth Center tablet daily. tamsulosin Yes .4mg QD Take 1 [facility] (FLOMAX) 1-12 capsule [facility] - 0.4 mg Cap 00:00: (0.4 mg Medi thad 24 hr 00 total) by Center capsule mouth daily. docusate Yes 100mg Q.5D Take [address] sodium 6-07 capsule [facility] - (COLACE) 00:00: (100 mg Medica l 100 MG 00 total) by Center capsule mouth 2 (two) times daily. Procedures This patient has no known procedures. Plan of Care Planned Activity Planned Date Details Comments Source Future Scheduled 2019-11-[address] [facility] - Test 00:00:00 (#1) [code = [facility] INFLUENZA VACCINE (#1)] Future Scheduled 1997-03-03 [...] Reference Range Interpretation Comme nts POC-GLUCOSE METER (RUBY) (test 127 mg/dL 70-110 H TESTED AT [facility] [address] [facility] code = 1538) [place] [address] POCT-GLUCOSE [id number] 08:51:00 Test Item Value Reference Range Interpretation Comments POC-GLUCOSE METER 104 mg/dL 70-110 TESTED AT [facility] 6720 (BEAKER) (test code = [place] Shabazz [facility] 1538) [address] BASIC METABOLIC [id number] 07:00:00 Test Item Value Reference Range Interpretation [...] MEAN CORPUSCULAR HEMOGLOBIN CONC 32.3 GM/DL 32.3-36.5 ([facility]) (test code = 752) RED CELL DISTRIBUTION WIDTH 16.6 % 11.6-14.4 H (AKER) (test code = 412) PLATELET COUNT (AKER) (test 137 K/CU MM 150-450 L code = 756) MEAN PLATELET VOLUME (AKER) 10.6 fL 9.4-12.4 (test code = 754) NUCLEATED RED BLOOD CELLS 0 /100 WBC 0-0 (AKER) (test code = 413) POCT-GLUCOSE [id number] 21:00:00 Test Item Value Reference Range Interpretation Comments POC-GLUCOSE METER 133 mg/dL 70-110 H TESTED AT [place] [address] ([facility]) (test code = [facility] 1538) [address] POCT-GLUCOSE [id number] 16:55:00 Test Item Value Reference Range Interpretation Comments POC-GLUCOSE METER 148 mg/dL 70-110 H TESTED AT [place] [address] ([facility]) (test code = [facility] 1538) [address] POCT-GLUCOSE [id number] 13:18:00 Test Item Value Reference Range Interpretation Comments POC-GLUCOSE METER 136 mg/dL 70-110 H TESTED AT [place] [address] ([facility]) (test code = [facility] 1538) [address] POCT-GLUCOSE [id number] 08:34:00 Test Item Value Reference Range Interpretation Comments POC-GLUCOSE METER 107 mg/dL 70-110 TESTED AT [place] [address] ([facility]) (test code = [facility] 1538) [address] BASIC METABOLIC [id number] 07:18:00 Test Item Value Reference Range Interpretation [...] Specimen slightly ictericCBC W/PLT COUNT & AUTO [id number] 06:32:00 Test Item Value Reference Range Interpretation [...] NEUTROPHILS ABSOLUTE COUNT 2.99 K/ L 1.78-5.38 ([facility]) (test code = 670) LYMPHOCYTES ABSOLUTE COUNT 0.56 K/ L 1.32-3.57 L ([facility]) (test code = 414) MONOCYTES ABSOLUTE COUNT (AKER) 0.49 K/ L 0.30-0.82 (test code = 415) EOSINOPHILS ABSOLUTE COUNT 0.28 K/ L 0.04-0.54 (AKER) (test code = 416) BASOPHILS ABSOLUTE COUNT (AKER) 0.02 K/ L 0.01-0.08 (test code = 417) IMMATURE GRANULOCYTES-RELATIVE 1 % 0-1 PERCENT ([facility]) (test code = 2801) POCT-GLUCOSE [id number] 21:22:00 Test Item Value Reference Range Interpretation Comments POC-GLUCOSE METER 190 mg/dL 70-110 H TESTED AT [place] [address] ([facility]) (test code = [facility] [place] [facility] 1538) [address] POCT-GLUCOSE [id number] 17:49:00 Test Item Value Reference Range Interpretation Comments POC-GLUCOSE METER 112 mg/dL 70-110 H TESTED AT [place] [address] ([facility]) (test code = [facility] 1538) [address] POCT-GLUCOSE [id number] 13:14:00 Test Item Value Reference Range Interpretation Comments POC-GLUCOSE METER 137 mg/dL 70-110 H TESTED AT [place] [address] ([facility]) (test code = [facility] 1538) [address] POCT-GLUCOSE [id number] 07:55:00 Test Item Value Reference Range Interpretation Comments POC-GLUCOSE METER 102 mg/dL 70-110 TESTED AT [place] [address] ([facility]) (test code = [facility] 1538) [address] CBC W/PLT COUNT & AUTO [id number] 06:09:00 Test Item Value Reference Range Interpretation Comments WHITE BLOOD CELL COUNT ([facility]) 5.2 K/ L 3.5-10.5 (test code = 775) RED BLOOD CELL COUNT ([facility]) 2.48 M/ L 4.63-6.08 L (test code = 761) HEMOGLOBIN ([facility]) (test code = 8.2 GM/DL 13.7-17.5 L [...] (BEAKER) (test code = 2801) BASIC METABOLIC [id number] 05:59:00 Test Item Value Reference Range Interpretation [...] FOR DIALYSIS PATIEN TS. Specimen slightly ictericPOCT-GLUCOSE [id number] 22:01:00 Test Item Value Reference Range Interpretation Comments POC-GLUCOSE METER 136 mg/dL 70-110 H TESTED AT [place] [address] ([facility]) (test code = [facility] 1538) [address] FL, ESOPH, SWALLOW FUNCTION, WITH CINE OR [id number] 17:39:00Reason for exam:->DysphagiaFINAL REPORT INDICATION: Dysphagia. TECHNIQUE: [...] MDReport Verified Date/Time: 08/31/2018 17:39:54 Reading Location: [facility] B1 [id number] Ortho Consult Reading Room -GLUCOSE [id number] 17:04:00 Test Item Value Reference Range Interpretation Comments POC-GLUCOSE METER 154 mg/dL 70-110 H TESTED AT [facility] 67 ([facility]) (test code = [facility] 1538) 47676 POCT-GLUCOSE [id number] 13:17:00 Test Item Value Reference Range Interpretation Comments POC-GLUCOSE METER 168 mg/dL 70-110 H TESTED AT [facility] 6720 (BEAKER) (test code = [place] 1538) [address] POCT-GLUCOSE [id number] 12:33:00 Test Item Value Reference Range Interpretation Comments POC-GLUCOSE METER 127 mg/dL 70-110 H TESTED AT [facility] 6720 (BEAKER) (test code = [place] 1538) [address] CBC W/PLT COUNT & AUTO [id number] 05:57:00 Test Item Value Reference Range Interpretation [...] PERCENT (BEAKER) (test code = 2801) TROPONIN [id number] 05:56:00 Test Item Value Reference Range Interpretation [...] failure, acidosis, acute neurological disease, and persistent tachyarrhythmia.[id number] 05:48:00 Test Item Value Reference Range Interpretation Comments MAGNESIUM (BEAKER) (test code = 2.2 mg/dL 1.6-2.6 627) BASIC METABOLIC [id number] 05:48:00 Test Item Value Reference Range Interpretation [...] NOT APPLICABLE FOR DIALYSIS PATIEN TS. POCT-GLUCOSE [id number] 04:49:00 Test Item Value Reference Range Interpretation Comments POC-GLUCOSE METER 131 mg/dL 70-110 H TESTED AT [place] [address] ([facility]) (test code = [facility] 1538) [address] POCT-GLUCOSE [id number] 22:24:00 Test Item Value Reference Range Interpretation Comments POC-GLUCOSE METER 180 mg/dL 70-110 H TESTED AT [place] [address] ([facility]) (test code = [facility] 1538) [address] POCT-GLUCOSE [id number] 17:17:00 Test Item Value Reference Range Interpretation Comments POC-GLUCOSE METER 176 mg/dL 70-110 H TESTED AT [place] [address] ([facility]) (test code = [facility] 1538) [address]007 POCT-GLUCOSE [id number] 11:51:00 Test Item Value Reference Range Interpretation Comments POC-GLUCOSE METER 180 mg/dL 70-110 H TESTED AT [place] [address] ([facility]) (test code = [facility] 1538) 8[address] HEMOGLOBIN AND [id number] 07:49:00 Test Item Value Reference Range Interpretation Comments HEMOGLOBIN (BEAKER) (test code = 7.3 GM/DL 13.7-17.5 L 410) HEMATOCRIT (BEAKER) (test code = 22.6 % 40.1-51.0 L 411) BASIC METABOLIC [id number] 06:43:00 Test Item Value Reference Range Interpretation [...] 358) GLUCOSE RANDOM 129 mg/dL 70-105 H ([facility]) (test code = 652) CALCIUM ([facility]) 8.3 mg/dL 8.4-10.2 L (test code = 697) EGFR ([facility]) (test 69 mL/min/1.73 ESTIMA VIKKI GFR IS code = 1092) sq m NOT ACCURATE CREATININE CLEARANCE IN PREDICTING GLOMERULAR FILTRATION RATE . ESTIMATED GFR I S NOT APPLICABLE FOR DIALYSIS PATIEN TS. POCT-GLUCOSE [id number] 06:26:00 Test Item Value Reference Range Interpretation Comments POC-GLUCOSE METER 173 mg/dL 70-110 H TESTED AT [place] [address] ([facility]) (test code = [place] Sh[place]azz [facility] 1538) [address] POCT-GLUCOSE [id number] 00:26:00 Test Item Value Reference Range Interpretation Comments POC-GLUCOSE METER 182 mg/dL 70-110 H TESTED AT [place] [address] ([facility]) (test code = [place] Sh[place] [facility] 1538) [address] POCT-GLUCOSE [id number] 18:53:00 Test Item Value Reference Range Interpretation Comments POC-GLUCOSE METER 174 mg/dL 70-110 H TESTED AT [place] [address] ([facility]) (test [facility] = [facility] 1538) [address] POCT-GLUCOSE [id number] 12:47:00 Test Item Value Reference Range Interpretation Comments POC-GLUCOSE METER 215 mg/dL 70-110 H TESTED AT [place] [address] ([facility]) (test code = [place] 1538) [address] POCT-GLUCOSE [id number] 08:59:00 Test Item Value Reference Range Interpretation Comments POC-GLUCOSE METER 185 mg/dL 70-110 H TESTED AT [place] [address] ([facility]) (test code = [place] 1538) [address] POCT-GLUCOSE [id number] 06:33:00 Test Item Value Reference Range Interpretation Comments POC-GLUCOSE METER 195 mg/dL 70-110 H TESTED AT [place] [address] ([facility]) (test code = [place] 1538) [address] BASIC METABOLIC [id number] 03:42:00 Test Item Value Reference Range Interpretation [...] NOT APPLICABLE FOR DIALYSIS PATIEN TS. PROTHROMBIN [id number] 03:37:00 Test Item Value Reference Range Interpretation [...] mechanical heart valves.CBC W/PLT COUNT & AUTO [id number] 03:32:00 Test Item Value Reference Range Interpretation [...] PERCENT (BEAKER) (test code = 2801) POCT-GLUCOSE [id number] 00:13:00 Test Item Value Reference Range Interpretation Comments POC-GLUCOSE METER 187 mg/dL 70-110 H TESTED AT [facility] 6720 (BEAKER) (test code = [place] 1538) [address] POCT-GLUCOSE [id number] 18:27:00 Test Item Value Reference Range Interpretation Comments POC-GLUCOSE METER 184 mg/dL 70-110 H TESTED AT [facility] 6720 (BEAKER) (test code = [place] 1538) [address] POCT-GLUCOSE [id number] 14:01:00 Test Item Value Reference Range Interpretation Comments POC-GLUCOSE METER 224 mg/dL 70-110 H TESTED AT [place] [address] (BEAKER) (test code = [place] Sh[place] [facility] 1538) [address] [id number] 06:44:00 Test Item Value Reference Range Interpretation Comments MAGNESIUM (BEAKER) (test code = 2.6 mg/dL 1.6-2.6 627) BASIC METABOLIC [id number] 06:44:00 Test Item Value Reference Range Interpretation [...] NOT APPLICABLE FOR DIALYSIS PATIEN TS. POCT-GLUCOSE [id number] 06:21:00 Test Item Value Reference Range Interpretation Comments POC-GLUCOSE METER 181 mg/dL 70-110 H TESTED AT [facility] 6720 (BEAKER) (test code = [place] 1538) [address] PROTHROMBIN [id number] 05:09:00 Test Item Value Reference Range Interpretation [...] CELL DISTRIBUTION WIDTH 16.4 % 11.6-14.4 H (BEAKER) (test code = 412) PLATELET COUNT (BEAKER) (test 107 K/CU MM 150-450 L code = 756) MEAN PLATELET VOLUME (BEAKER) 10.9 fL 9.4-12.4 (test code = 754) NUCLEATED RED BLOOD CELLS 0 /100 WBC 0-0 (BEAKER) (test code = 413) POCT-GLUCOSE [id number] 00:55:00 Test Item Value Reference Range Interpretation Comments POC-GLUCOSE METER 211 mg/dL 70-110 H TESTED AT [facility] 6720 ([facility]) (test code = [place] 1538) [address] POCT-GLUCOSE [id number] 21:29:00 Test Item Value Reference Range Interpretation Comments POC-GLUCOSE METER 220 mg/dL 70-110 H TESTED AT [facility] 6720 (BEAKER) (test code = [place] Sh[place] [facility] 1538) [address]63 POCT-GLUCOSE [id number] 18:15:00 Test Item Value Reference Range Interpretation Comments POC-GLUCOSE METER 200 mg/dL 70-110 H TESTED AT [facility] 6720 (BEAKER) (test code = [place] Sh[place]azz [facility] 1538) [address]12 POCT-GLUCOSE [id number] 11:57:00 Test Item Value Reference Range Interpretation Comments POC-GLUCOSE METER 238 mg/dL 70-110 H TESTED AT [facility] 6720 (BEAKER) (test code = [place] Sh[place]azz [facility] 1538) [address]235 HEMOGLOBIN AND [id number] 08:02:00 Test Item Value Reference Range Interpretation Comments HEMOGLOBIN (BEAKER) (test code = 7.3 GM/DL 13.7-17.5 L 410) HEMATOCRIT (BEAKER) (test code = 23.2 % 40.1-51.0 L 411) [id number] 06:37:00 Test Item Value Reference Range Interpretation Comments MAGNESIUM (BEAKER) (test code = 2.6 mg/dL 1.6-2.6 627) BASIC METABOLIC [id number] 06:37:00 Test Item Value Reference Range Interpretation [...] FOR DIALYSIS PATIEN TS. Specimen slightly ictericPOCT-GLUCOSE [id number] 06:24:00 Test Item Value Reference Range Interpretation Comments POC-GLUCOSE METER 160 mg/dL 70-110 H TESTED AT [place] [address] ([facility]) (test code = [place] [facility] 1538) 9[address]67 PROTHROMBIN [id number] 05:49:00 Test Item Value Reference Range Interpretation Comments PROTIME ([facility]) (test code = 15.1 seconds 11.9-14.2 H 759) INR ([facility]) (test code = 370) 1.2 <=5.9 Effective 07/28/2018: PT Reference Range ChangeNew: 11.9-14.2 Previous: 11.7- 14.7RECOMMENDED COUMADIN/WARFARIN INR THERAPY RANGESSTANDARD DOSE: 2.0-3.0 Includes: PROPHYLAXIS for venous thrombosis, systemic embolization; TREATMENT for venous thrombosis and/or pulmonary embolus.HIGH RISK: Target INR is2.5-3.5 for patients wiht mechanical heart valves.POCT-GLUCOSE [id number] 18:38:00 Test Item Value Reference Range Interpretation Comments POC-GLUCOSE METER 196 mg/dL 70-110 H TESTED AT [place] [address] ([facility]) (test code = [place] Sh[place] [facility] 1538) [address] POCT-GLUCOSE [id number] 13:58:00 Test Item Value Reference Range Interpretation Comments POC-GLUCOSE METER 244 mg/dL 70-110 H TESTED AT [place] [address] ([facility]) (test code = [place] [facility] 1538) [address] [id number] 07:56:00 Test Item Value Reference Range Interpretation Comments PHOSPHORUS ([facility]) (test code = 2.2 mg/dL 2.3-4.7 L 604) POCT-GLUCOSE [id number] 06:22:00 Test Item Value Reference Range Interpretation Comments POC-GLUCOSE METER 179 mg/dL 70-110 H TESTED AT [place] [address] ([facility]) (test code = [place] Sh[place] [facility] 1538) 387[address] POCT-GLUCOSE [id number] 05:10:00 Test Item Value Reference Range Interpretation Comments POC-GLUCOSE METER 249 mg/dL 70-110 H TESTED AT [facility] 6720 (BEAKER) (test code = [place] 1538) [address] [id number] 04:08:00 Test Item Value Reference Range Interpretation Comments MAGNESIUM (BEAKER) (test code = 2.7 mg/dL 1.6-2.6 H 627) BASIC METABOLIC [id number] 04:08:00 Test Item Value Reference Range Interpretation [...] NOT APPLICABLE FOR DIALYSIS PATIEN TS. PROTHROMBIN [id number] 03:49:00 Test Item Value Reference Range Interpretation [...] mechanical heart valves.CBC W/PLT COUNT & AUTO [id number] 03:49:00 Test Item Value Reference Range Interpretation [...] PERCENT (BEAKER) (test code = 2801) POCT-GLUCOSE [id number] 00:22:00 Test Item Value Reference Range Interpretation Comments POC-GLUCOSE METER 214 mg/dL 70-110 H TESTED AT [facility] 67 (BEAKER) (test code = [place] 1538) [address] POCT-GLUCOSE [id number] 17:37:00 Test Item Value Reference Range Interpretation Comments POC-GLUCOSE METER 164 mg/dL 70-110 H TESTED AT [place] [address] (BEAKER) (test code = [place] 1538) [address] CBC W/PLT COUNT & AUTO [id number] 15:32:00 Test Item Value Reference Range Interpretation [...] (test code = 2801) EEG AWAKE/ASLEEP AND [id number] 14:46:00Reason for exam:->continued decreased responsivenessShould this be performed at the bedside?->YesDate(s) of EE08/25/2018DATE OF REPORT: 08/25/[id number] Number: [id number] Location: Inpatient ICUStart time:09:45 amStop time:10:06 amICD-10: R56.9 Unspecified ConvulsionsCPT Code: 65410 EEG HISTORY: 88 y.o. 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 MEDICATION THAT CAN AFFECT EEG: None [...] this study. Henri Yañez MDNeu rophysiology Fellow Onru Leiva MD, MSClinical Neurophysiology/Epilepsy Attending POCT-GLUCOSE [id number] 12:43:00 Test Item Value Reference Range Interpretation Comments POC-GLUCOSE METER 221 mg/dL 70-110 H TESTED AT [place] [address] ([facility]) (test code = [place] 1538) [address] RAD, CHEST, 1 VIEW, NON [id number] 11:00:00Reason for exam:- >hemoptysisShould this be performed [...] MDReport Verified Date/Time: 08/25/2018 11:00:37 Reading Location: [facility] Radiology Reading Room POCT-GLUCOSE [id number] 06:39:00 Test Item Value Reference Range Interpretation Comments POC-GLUCOSE METER 202 mg/dL 70-110 H TESTED AT [facility] 6720 (BEAKER) (test code = [place] 1538) [address] BLOOD GAS, [id number] 05:13:00 Test Item Value Reference Range Interpretation [...] code = 1819) 24.0 % BASIC METABOLIC [id number] 05:10:00 Test Item Value Reference Range Interpretation [...] FOR DIALYSIS PATIEN TS. Specimen slightly ictericPROTHROMBIN [id number] 05:07:00 Test Item Value Reference Range Interpretation [...] mechanical heart valves.CBC W/PLT COUNT & AUTO [id number] 04:52:00 Test Item Value Reference Range Interpretation [...] = 2801) RAD, CHEST, 1 VIEW, NON [id number] 04:28:00Reason for exam:- >intubatedShould this be performed at the bedside?->YesFINAL REPORT CLINICAL INDICATION: Support lines. Comparison: 08/24/2018 The cardiomediastinal contours are stable. Central pulmonary vascular congestion and bilateral parenchymalopacities are similar to previous. There is no pneumothorax. Support lines are stable. Signed: Dawson Barron Verified Date/Time: 08/25/2018 04:28:55 Reading Location: [address] Reading Room POCT-GLUCOSE [id number] 00:29:00 Test Item Value Reference Range Interpretation Comments POC-GLUCOSE METER 258 mg/dL 70-110 H TESTED AT [facility] 6720 ([facility]) (test code = [facility] [place] 1538) [address] POCT-GLUCOSE [id number] 18:26:00 Test Item Value Reference Range Interpretation Comments POC-GLUCOSE METER 293 mg/dL 70-110 H TESTED AT [facility] 6720 ([facility]) (test code = [facility] [place] 1538) [address] BLOOD GAS, [id number] 15:38:00 Test Item Value Reference Range Interpretation Comments PH ARTERIAL (AKER) (test code = 7.48 7.35-7.45 H 383) [...] code = 1819) 30.0 % BLOOD GAS, [id number] 14:57:00 Test Item Value Reference Range Interpretation [...] code = 1819) 24.0 % BASIC METABOLIC [id number] 14:47:00 Test Item Value Reference Range Interpretation [...] S NOT APPLICABLE FOR DIALYSIS PATIEN TS. [id number] 14:47:00 Test Item Value Reference Range Interpretation Comments MAGNESIUM (BEAKER) (test code = 2.2 mg/dL 1.6-2.6 627) [id number] 14:47:00 Test Item Value Reference Range Interpretation Comments PHOSPHORUS (BEAKER) (test code = 1.9 mg/dL 2.3-4.7 L 604) CBC W/PLT COUNT & AUTO [id number] 14:12:00 Test Item Value Reference Range Interpretation [...] PERCENT (BEAKER) (test code = 2801) CALCIUM, [id number] 13:35:00 Test Item Value Reference Range Interpretation Comments CALCIUM IONIZED (BEAKER) (test 1.16 mmol/L 1.12-1.27 code = 698) PH, BLOOD (BEAKER) (test code = 7.49 1810) TROPONIN [id number] 13:08:00 Test Item Value Reference Range Interpretation [...] acidosis, acute neurological disease, and persistent tachyarrhythmia.POCT-GLUCOSE [id number] 12:10:00 Test Item Value Reference Range Interpretation Comments POC-GLUCOSE METER 258 mg/dL 70-110 H TESTED AT [facility] 6720 ([facility]) (test code = [place] 1538) [address] POCT-GLUCOSE [id number] 06:22:00 Test Item Value Reference Range Interpretation Comments POC-GLUCOSE METER 215 mg/dL 70-110 H TESTED AT [facility] 6720 (BEAKER) (test code = [place] 1538) [address] BLOOD GAS, [id number] 06:06:00 Test Item Value Reference Range Interpretation [...] code = 1819) 24.0 % BASIC METABOLIC [id number] 05:50:00 Test Item Value Reference Range Interpretation [...] Specimen slightly ictericCBC W/PLT COUNT & AUTO [id number] 05:49:00 Test Item Value Reference Range Interpretation [...] PERCENT (BEAKER) (test code = 2801) PROTHROMBIN [id number] 05:34:00 Test Item Value Reference Range Interpretation [...] for patients wiht mechanical heart valves.HEMOGLOBIN AND [id number] 05:30:00 Test Item Value Reference Range Interpretation Comments HEMOGLOBIN (BEAKER) (test code = 7.7 GM/DL 13.7-17.5 L 410) HEMATOCRIT (BEAKER) (test code = 23.8 % 40.1-51.0 L 411) RAD, CHEST, 1 VIEW, NON [id number] 04:20:00Reason for exam:- >intubatedShould this be performed at the bedside?->YesFINAL REPORT CLINICAL INDICATION: Support lines. Comparison: 08/23/2018 The right costophrenic sulcus is excluded. The cardiomediastinal contours are stable. Central pulmonary vascular congestion and bilateral parenchymal and left pleural opacities are similar to previous. Thereis no pneumothorax. Support lines are stable. Signed: Dawson Barron MDReport Verified Date/Time: 08/24/2018 04:20:37 Reading Location: [address] Reading Room HEMOGLOBIN AND [id number] 00:40:00 Test Item Value Reference Range Interpretation Comments HEMOGLOBIN (BEAKER) (test code = 7.8 GM/DL 13.7-17.5 L 410) HEMATOCRIT (BEAKER) (test code = 24.2 % 40.1-51.0 L 411) POCT-GLUCOSE [id number] 00:30:00 Test Item Value Reference Range Interpretation Comments POC-GLUCOSE METER 192 mg/dL 70-110 H TESTED AT [place] [address] ([facility]) (test code = TEX [place] [facility] 1538) [address] POCT-GLUCOSE [id number] 17:25:00 Test Item Value Reference Range Interpretation Comments POC-GLUCOSE METER 199 mg/dL 70-110 H TESTED AT [place] [address] ([facility]) (test code = TEX [place] [facility] 1538) [address] HEMOGLOBIN AND [id number] 15:58:00 Test Item Value Reference Range Interpretation Comments HEMOGLOBIN (BEAKER) (test code = 7.6 GM/DL 13.7-17.5 L 410) HEMATOCRIT (BEAKER) (test code = 23.1 % 40.1-51.0 L 411) POCT-GLUCOSE [id number] 13:05:00 Test Item Value Reference Range Interpretation Comments POC-GLUCOSE METER 196 mg/dL 70-110 H TESTED AT [place] [address] ([facility]) (test code = [facility] [place] [facility] 1538) [address] TROPONIN [id number] 10:06:00 Test Item Value Reference Range Interpretation Comments TROPONIN I ([facility]) (test code = 0.08 ng/mL 0.00-0.03 H [...] (BEAKER) (test code = 2801) BLOOD GAS, [id number] 09:19:00 Test Item Value Reference Range Interpretation [...] code = 1819) 30.0 % BLOOD GAS, [id number] 05:48:00 Test Item Value Reference Range Interpretation [...] 40.0 % RAD, CHEST, 1 VIEW, NON [id number] 04:45:00Reason for exam:- >intubatedShould this be performed [...] PATIEN TS. Specimen slightly ictericCT, BRAIN, WITHOUT [id number] 03:59:00FINAL REPORT CT Head without contrast CLINICAL [...] Jha MDReport Verified Date/Time: 08/23/2018 03:59:22 ONIN [id number] 02:22:00 Test Item Value Reference Range Interpretation [...] (BEAKER) (test code = 2801) HEMOGLOBIN AND [id number] 02:04:00 Test Item Value Reference Range Interpretation Comments HEMOGLOBIN (BEAKER) (test code = 8.0 GM/DL 13.7-17.5 L 410) HEMATOCRIT (BEAKER) (test code = 23.9 % 40.1-51.0 L 411) POCT-GLUCOSE [id number] 01:58:00 Test Item Value Reference Range Interpretation Comments POC-GLUCOSE METER 194 mg/dL 70-110 H TESTED AT [place] [address] (BEAKER) ([facility] = [facility] 1538) [address] POCT-GLUCOSE [id number] 18:05:00 Test Item Value Reference Range Interpretation Comments POC-GLUCOSE METER 212 mg/dL 70-110 H TESTED AT [facility] [facility] (test code = [facility] 1538) [address] BLOOD GAS, [id number] 17:31:00 Test Item Value Reference Range Interpretation [...] 40.0 % RAD, CHEST, 1 VIEW, NON [id number] 16:59:00Post-intubationReason for exam:- >intubationShould this be performed [...] MDReport Verified Date/Time: 08/22/2018 16:59:35 Reading Location: [address] Consult Reading Room CBC W/PLT COUNT & AUTO [id number] 16:38:00 Test Item Value Reference Range Interpretation [...] (BEAKER) (test code = 2801) HEMOGLOBIN AND [id number] 16:25:00 Test Item Value Reference Range Interpretation Comments HEMOGLOBIN (BEAKER) (test code = 8.3 GM/DL 13.7-17.5 L 410) HEMATOCRIT (BEAKER) (test code = 25.3 % 40.1-51.0 L 411) BLOOD GAS, [id number] 15:56:00 Test Item Value Reference Range Interpretation [...] code = 1819) 21.0 % HEPATIC FUNCTION [id number] 14:56:00 Test Item Value Reference Range Interpretation [...] (test code = 347) hemolyzed Specimen slightly [id number] 14:50:00 Test Item Value Reference Range Interpretation Comments AMMONIA (BEAKER) (test code = 348) 129 mol/L 18-72 H TROPONIN [id number] 14:12:00 Test Item Value Reference Range Interpretation [...] and persistent tachyarrhythmia.RAD, CHEST, 1 VIEW, NON [id number] 14:11:00Post-intubationReason for exam:->r/o pnaShould this be performed [...] Tomasz De La Torre MDReport Verified Date/Time: 2018 14:11:20 Reading Location: [address] Ortho Consult Reading Room PHOSPHORUS 2018-08-22 14:06:00 Test Item Value Reference Range Interpretation Comments PHOSPHORUS (BEAKER) (test code = 3.6 mg/dL 2.3-4.7 604) [id number] 14:06:00 Test Item Value Reference Range Interpretation Comments MAGNESIUM (BEAKER) (test code = 2.0 mg/dL 1.6-2.6 627) COMPREHENSIVE METABOLIC [id number] 14:06:00 Test Item Value Reference Range Interpretation [...] DIALYSIS PATIEN TS. Specimen slightly ictericLACTIC ACID, [id number] 14:01:00 Test Item Value Reference Range Interpretation Comments LACTATE BLOOD VENOUS 1.9 mmol/L 0.5-2.2 Specime n slightly (2) (BEAKER) (test hemolyzed code = 3318) Specimen slightly [id number] 14:00:00 Test Item Value Reference Range Interpretation Comments FIBRINOGEN LEVEL (BEAKER) (test 329 mg/dl 225-434 code = 658) [id number] 14:00:00 Test Item Value Reference Range Interpretation Comments PARTIAL THROMBOPLASTIN TIME 36.4 seconds 22.5-36.0 H (BEAKER) (test code = 760) PROTHROMBIN [id number] 13:59:00 Test Item Value Reference Range Interpretation [...] mechanical heart valves.CBC W/PLT COUNT & AUTO [id number] 13:47:00 Test Item Value Reference Range Interpretation [...] PERCENT (BEAKER) (test code = 2801) POCT-GLUCOSE [id number] 07:50:00 Test Item Value Reference Range Interpretation Comments POC-GLUCOSE METER 137 mg/dL 70-110 H TESTED AT [facility] 6720 (BEAKER) (test code = [place] 1538) [address] BASIC METABOLIC [id number] 06:28:00 Test Item Value Reference Range Interpretation [...] PATIEN TS. CBC W/PLT COUNT & AUTO [id number] 06:08:00 Test Item Value Reference Range Interpretation [...] PERCENT (BEAKER) (test code = 2801) PROTHROMBIN [id number] 05:57:00 Test Item Value Reference Range Interpretation [...] METER 138 mg/dL 70-110 H TESTED AT [place] [address] ([facility]) (test code = [place] 1538) [address] POCT-GLUCOSE [id number] 17:49:00 Test Item Value Reference Range Interpretation Comments POC-GLUCOSE METER 137 mg/dL 70-110 H TESTED AT [place] [address] ([facility]) (test code = [place] 1538) [address] CBC W/PLT COUNT & AUTO [id number] 13:23:00 Test Item Value Reference Range Interpretation [...] 3438) Received comment: User comments: Slide comments:POCT-GLUCOSE [id number] 11:08:00 Test Item Value Reference Range Interpretation Comments POC-GLUCOSE METER 184 mg/dL 70-110 H TESTED AT [facility] 67[address] (BEAKER) (test code = [place] 1538) [address] BASIC METABOLIC [id number] 06:30:00 Test Item Value Reference Range Interpretation [...] NOT APPLICABLE FOR DIALYSIS PATIEN TS. PROTHROMBIN [id number] 06:25:00 Test Item Value Reference Range Interpretation [...] METER 129 mg/dL 70-110 H TESTED AT [facility] 6720 (BEAKER) (test code = [place] 1538) [address] POCT-GLUCOSE [id number] 17:06:00 Test Item Value Reference Range Interpretation Comments POC-GLUCOSE METER 155 mg/dL 70-110 H TESTED AT [facility] 6720 (BEAKER) (test code = [place] 1538) [address] CBC W/PLT COUNT & AUTO [id number] 13:39:00 Test Item Value Reference Range Interpretation Comments WHITE BLOOD CELL COUNT (BEAKER) 3.9 K/ L 3.5-10.5 (test code = [...] K/uL 0.00-0.00 H (CELLAVISION)(BEAKER) (test code = 7228) TOTAL COUNTED (BEAKER) (test code 100 = [...] 3438) Received comment: User comments: Slide comments:POCT-GLUCOSE [id number] 11:37:00 Test Item Value Reference Range Interpretation Comments POC-GLUCOSE METER 140 mg/dL 70-110 H TESTED AT [facility] 67[address] (BEAKER) (test code = [place] 1538) [address] POCT-GLUCOSE [id number] 07:55:00 Test Item Value Reference Range Interpretation Comments POC-GLUCOSE METER 139 mg/dL 70-110 H TESTED AT [facility] 67[address] (BEAKER) (test code = [place] 1538) [address] BASIC METABOLIC [id number] 05:47:00 Test Item Value Reference Range Interpretation [...] NOT APPLICABLE FOR DIALYSIS PATIEN TS. PROTHROMBIN [id number] 05:28:00 Test Item Value Reference Range Interpretation Comments PROTIME (BEAKER) (test code = 15.7 seconds 11.7-14.7 H 759) INR (BEAKER) (test [...] METER 146 mg/dL 70-110 H TESTED AT [facility] 67 (BEAKER) (test code = [facility] 1538) [address] POCT-GLUCOSE [id number] 17:28:00 Test Item Value Reference Range Interpretation Comments POC-GLUCOSE METER 156 mg/dL 70-110 H TESTED AT [place] [address] (BEAKER) (test code = [facility] 1538) [address] CBC W/PLT COUNT & AUTO [id number] 13:53:00 Test Item Value Reference Range Interpretation Comments WHITE BLOOD CELL COUNT (BEAKER) 4.1 K/ L 3.5-10.5 (test code = 775) RED BLOOD CELL COUNT (BEAKER) 2.37 M/ L 4.63-6.08 L (test code = 761) HEMOGLOBIN (BEAKER) (test code = 7.8 GM/DL 13.7-17.5 L 410) HEMATOCRIT (BEAKER) (test code = 24.6 % 40.1-51.0 L 411) MEAN CORPUSCULAR VOLUME (BEAKER) 103.8 fL 79.0-92.2 H (test code = [...] 3438) Received comment: User comments: Slide comments:POCT-GLUCOSE [id number] 12:04:00 Test Item Value Reference Range Interpretation Comments POC-GLUCOSE METER 182 mg/dL 70-110 H TESTED AT [facility] 6720 (BEAKER) (test code = [place] 1538) [address] POCT-GLUCOSE [id number] 08:09:00 Test Item Value Reference Range Interpretation Comments POC-GLUCOSE METER 111 mg/dL 70-110 H TESTED AT [facility] 6720 (BEAKER) (test code = [place] 1538) [address] BASIC METABOLIC [id number] 07:02:00 Test Item Value Reference Range Interpretation [...] 0-100 H (test code = 700) PROTHROMBIN [id number] 06:39:00 Test Item Value Reference Range Interpretation [...] METER 162 mg/dL 70-110 H TESTED AT [facility] 6720 ([employer]) (test code = [facility] 1538) [address] POCT-GLUCOSE [id number] 18:15:00 Test Item Value Reference Range Interpretation Comments POC-GLUCOSE METER 127 mg/dL 70-110 H TESTED AT [facility] 67[address] ([employer]) (test code = [facility] 1538) [address] BASIC METABOLIC [id number] 08:18:00 Test Item Value Reference Range Interpretation [...] S NOT APPLICABLE FOR DIALYSIS PATIEN TS. [id number] 08:18:00 Test Item Value Reference Range Interpretation [...] RED CELL DISTRIBUTION WIDTH 14.3 % 11.6-14.4 ([facility]) (test code = 412) PLATELET COUNT ([facility]) (test 113 K/CU MM 150-450 L code = 756) MEAN PLATELET VOLUME (AKER) 11.4 fL 9.4-12.4 (test code = 754) NUCLEATED RED BLOOD CELLS 0 /100 WBC 0-0 ([facility]) (test code = 413) POCT-GLUCOSE [id number] 05:58:00 Test Item Value Reference Range Interpretation Comments POC-GLUCOSE METER 153 mg/dL 70-110 H TESTED AT [place] [address] ([facility]) (test code = [facility] 1538) [address] POCT-GLUCOSE [id number] 23:35:00 Test Item Value Reference Range Interpretation Comments POC-GLUCOSE METER 170 mg/dL 70-110 H TESTED AT [place] [address] ([facility]) (test code = [facility] 1538) [address] POCT-GLUCOSE [id number] 17:28:00 Test Item Value Reference Range Interpretation Comments POC-GLUCOSE METER 155 mg/dL 70-110 H TESTED AT [place] [address] ([facility]) (test code = [facility] 1538) [address] HEMOGLOBIN AND [id number] 17:16:00 Test Item Value Reference Range Interpretation Comments HEMOGLOBIN (BEAKER) (test code = 7.9 GM/DL 13.7-17.5 L 410) HEMATOCRIT (BEAKER) (test code = 24.9 % 40.1-51.0 L 411) BLOOD [id number] 13:01:00 Test Item Value Reference Range Interpretation Comments CULTURE (BEAKER) (test No growth in 5 days code = 1095) BLOOD [id number] 13:00:00 Test Item Value Reference Range Interpretation Comments CULTURE (BEAKER) (test No growth in 5 days code = 1095) POCT-GLUCOSE [id number] 11:55:00 Test Item Value Reference Range Interpretation Comments POC-GLUCOSE METER 157 mg/dL 70-110 H TESTED AT [place] [address] ([facility]) (test code = [facility] 1538) [address] ANTI-MITOCHONDRIAL AB, REFLEX TO [id number] 10:22:00 Test Item Value Reference Range Interpretation Comments SCAN RESULT (test code = 0505726) POCT-GLUCOSE [id number] 05:46:00 Test Item Value Reference Range Interpretation Comments POC-GLUCOSE METER 161 mg/dL 70-110 H TESTED AT [facility] 6720 (BEAKER) (test code = [place] 1538) [address] HEPATIC FUNCTION [id number] 04:08:00 Test Item Value Reference Range Interpretation [...] (test code = 30 U/L 6-55 347) [id number] 04:03:00 Test Item Value Reference Range Interpretation Comments PHOSPHORUS (BEAKER) (test code = 2.4 mg/dL 2.3-4.7 604) Check Serum Phosphorus level 4 hours after IV phosphorus replacement or 8 hours after PO replacementcompleted.[id number] 04:03:00 Test Item Value Reference Range Interpretation Comments MAGNESIUM (BEAKER) (test code = 2.5 mg/dL 1.6-2.6 627) Check Serum Phosphorus level 4 hours after IV phosphorus replacement or 8 hours after PO replacementcompleted.BASIC METABOLIC [id number] 04:03:00 Test Item Value Reference Range Interpretation [...] after PO replacementcompleted.CBC W/PLT COUNT & AUTO [id number] 03:47:00 Test Item Value Reference Range Interpretation [...] (BEAKER) (test code = 2801) HEMOGLOBIN AND [id number] 03:46:00 Test Item Value Reference Range Interpretation Comments HEMOGLOBIN (BEAKER) (test code = 7.7 GM/DL 13.7-17.5 L 410) HEMATOCRIT (BEAKER) (test code = 24.8 % 40.1-51.0 L 411) POCT-GLUCOSE [id number] 01:04:00 Test Item Value Reference Range Interpretation Comments POC-GLUCOSE METER 150 mg/dL 70-110 H TESTED AT [facility] 6720 (BEAKER) (test code = [place] 1538) [address] SPUTUM CULTURE + GRAM [id number] 19:57:00 Test Item Value Reference Range Interpretation Comments CULTURE (BEAKER) No growth (test code = 1095) GRAM STAIN RESULT 4+ WBCs (BEAKER) (test code = 1123) GRAM STAIN RESULT 0-5 epithelial cells (BEAKER) (test code = 08485) GRAM STAIN RESULT <1+ gram positive cocci (BEAKER) (test code = in pairs 27690) HEMOGLOBIN AND [id number] 16:09:00 Test Item Value Reference Range Interpretation Comments HEMOGLOBIN (BEAKER) (test code = 7.8 GM/DL 13.7-17.5 L 410) HEMATOCRIT (BEAKER) (test code = 25.1 % 40.1-51.0 L 411) POCT-GLUCOSE [id number] 16:06:00 Test Item Value Reference Range Interpretation Comments POC-GLUCOSE METER 143 mg/dL 70-110 H TESTED AT [facility] 6720 ([facility]) (test code = [place] 1538) [address] POCT-GLUCOSE [id number] 11:55:00 Test Item Value Reference Range Interpretation Comments POC-GLUCOSE METER 148 mg/dL 70-110 H TESTED AT [facility] 6720 ([facility]) (test code = [place] 1538) [address] RAD, ABDOMEN/KUB, 1 VIEW [id number] 10:26:00Reason for exam:->Check position of NGTFINAL REPORT [...] MDReport Verified Date/Time: 03/07/2018 10:26:54 Reading Location: [address] Transitional Reading Room HEPATIC FUNCTION [id number] 09:14:00 Test Item Value Reference Range Interpretation [...] 6-55 347) CBC W/PLT COUNT & AUTO [id number] 06:53:00 Test Item Value Reference Range Interpretation [...] PERCENT (BEAKER) (test code = 2801) POCT-GLUCOSE [id number] 06:23:00 Test Item Value Reference Range Interpretation Comments POC-GLUCOSE METER 125 mg/dL 70-110 H TESTED AT [facility] 6720 (BEAKER) (test code = [place] 1538) [address] [id number] 05:53:00 Test Item Value Reference Range Interpretation Comments PHOSPHORUS (BEAKER) (test code = 2.7 mg/dL 2.3-4.7 604) Check Serum Phosphorus level 4 hours after IV phosphorus replacement or 8 hours after PO replacementcompleted.[id number] 05:53:00 Test Item Value Reference Range Interpretation Comments MAGNESIUM (BEAKER) (test code = 2.6 mg/dL 1.6-2.6 627) Check Serum Phosphorus level 4 hours after IV phosphorus replacement or 8 hours after PO replacementcompleted.BASIC METABOLIC [id number] 05:53:00 Test Item Value Reference Range Interpretation [...] or 8 hours after PO replacementcompleted.HEMOGLOBIN AND [id number] 05:29:00 Test Item Value Reference Range Interpretation Comments HEMOGLOBIN (BEAKER) (test code = 8.0 GM/DL 13.7-17.5 L 410) HEMATOCRIT (BEAKER) (test code = 26.1 % 40.1-51.0 L 411) HEMOGLOBIN AND [id number] 23:58:00 Test Item Value Reference Range Interpretation Comments HEMOGLOBIN (BEAKER) (test code = 6.8 GM/DL 13.7-17.5 L 410) HEMATOCRIT (BEAKER) (test code = 22.5 % 40.1-51.0 L 411) MRSA [id number] 23:57:00 Test Item Value Reference Range Interpretation Comments CULTURE ([facility]) (test code No MRSA isolated = 1095) POCT-GLUCOSE [id number] 22:48:00 Test Item Value Reference Range Interpretation Comments POC-GLUCOSE METER 168 mg/dL 70-110 H TESTED AT [place] [address] ([facility]) (test code = [facility] 1538) [address] POCT-GLUCOSE [id number] 18:01:00 Test Item Value Reference Range Interpretation Comments POC-GLUCOSE METER 162 mg/dL 70-110 H TESTED AT [place] [address] ([facility]) (test code = [facility] 1538) [address] HEMOGLOBIN AND [id number] 12:49:00 Test Item Value Reference Range Interpretation Comments HEMOGLOBIN (BEAKER) (test code = 7.4 GM/DL 13.7-17.5 L 410) HEMATOCRIT (BEAKER) (test code = 23.9 % 40.1-51.0 L 411) STOOL CULTURE + SHIGA [id number] 10:14:00 Test Item Value Reference Range Interpretation Comments CULTURE ([facility]) No Salmonella, Shigella (test code = 1095) or Campylobacter isolated POCT-GLUCOSE [id number] 09:55:00 Test Item Value Reference Range Interpretation Comments POC-GLUCOSE METER 143 mg/dL 70-110 H TESTED AT [place] [address] ([facility]) (test code = [facility] 1538) [address] CBC W/PLT COUNT & AUTO [id number] 07:15:00 Test Item Value Reference Range Interpretation Comments WHITE BLOOD CELL COUNT ([facility]) 4.5 K/ L 3.5-10.5 (test code = [...] 0-1 PERCENT (BEAKER) (test code = 2801) [id number] 05:47:00 Test Item Value Reference Range Interpretation Comments PHOSPHORUS (BEAKER) (test code = 2.8 mg/dL 2.3-4.7 604) Check Serum Phosphorus level 4 hours after IV phosphorus replacement or 8 hours after PO replacementcompleted.[id number] 05:47:00 Test Item Value Reference Range Interpretation Comments MAGNESIUM (BEAKER) (test code = 2.6 mg/dL 1.6-2.6 627) Check Serum Phosphorus level 4 hours after IV phosphorus replacement or 8 hours after PO replacementcompleted.BASIC METABOLIC [id number] 05:47:00 Test Item Value Reference Range Interpretation [...] after PO replacementcompleted.RAD, CHEST, 1 VIEW, NON [id number] 05:00:00 Reason for exam:->resp failureShould this be [...] Jha Verified Date/Time: 03/06/2018 05:00:57 Reading Location: [facility] Transitional Reading Room POCT-GLUCOSE [id number] 04:50:00 Test Item Value Reference Range Interpretation Comments POC-GLUCOSE METER 133 mg/dL 70-110 H TESTED AT [place] [address] (BEAKER) (test code = [facility] 1538) [address]48 HEMOGLOBIN AND [id number] 23:14:00 Test Item Value Reference Range Interpretation Comments HEMOGLOBIN (BEAKER) (test code = 7.1 GM/DL 13.7-17.5 L 410) HEMATOCRIT (BEAKER) (test code = 23.5 % 40.1-51.0 L 411) POCT-GLUCOSE [id number] 23:12:00 Test Item Value Reference Range Interpretation Comments POC-GLUCOSE METER 146 mg/dL 70-110 H TESTED AT [place] [address] (BEAKER) (test code = [facility] [place] 1538) [address] POCT-GLUCOSE [id number] 22:11:00 Test Item Value Reference Range Interpretation Comments POC-GLUCOSE METER 164 mg/dL 70-110 H TESTED AT [place] [address] (BEAKER) (test code = [facility] [place] 1538) [address] HEMOGLOBIN AND [id number] 18:51:00 Test Item Value Reference Range Interpretation Comments HEMOGLOBIN (BEAKER) (test code = 7.3 GM/DL 13.7-17.5 L 410) HEMATOCRIT (BEAKER) (test code = 23.8 % 40.1-51.0 L 411) POCT-GLUCOSE [id number] 17:35:00 Test Item Value Reference Range Interpretation Comments POC-GLUCOSE METER 169 mg/dL 70-110 H TESTED AT [place] [address] (BEAKER) (test code = [facility] 1538) [address] OCCULT BLOOD, [id number] 16:20:00 Test Item Value Reference Range Interpretation Comments FECAL OCCULT BLOOD (BEAKER) (test Positive Negative A code = 618) HEPATIC FUNCTION [id number] 13:39:00 Test Item Value Reference Range Interpretation [...] = 14 U/L 6-55 347) BASIC METABOLIC [id number] 13:39:00 Test Item Value Reference Range Interpretation [...] APPLICABLE FOR DIALYSIS PATIEN TS. VANCOMYCIN LEVEL, [id number] 13:35:00 Test Item Value Reference Range Interpretation Comments VANCOMYCIN RANDOM (BEAKER) (test 10.1 ug/mL code = 523) Reference Range: No NormalsHEMOGLOBIN AND [id number] 12:47:00 Test Item Value Reference Range Interpretation Comments HEMOGLOBIN (BEAKER) (test code = 7.3 GM/DL 13.7-17.5 L 410) HEMATOCRIT (BEAKER) (test code = 23.7 % 40.1-51.0 L 411) POCT-GLUCOSE [id number] 12:14:00 Test Item Value Reference Range Interpretation Comments POC-GLUCOSE METER 189 mg/dL 70-110 H TESTED AT [facility] 6720 (BEAKER) (test code = [place] 1538) [address] ANTI-NUCLEAR ANTIBODY (STEPHY)2018-03-05 10:39:00 Test Item Value Reference Range Interpretation Comments ANTI-NUCLEAR ANTIBODY (STEPHY) (BEAKER) Negative Negative (test code = 418) Test performed by IFA method.Test performed by IFA method.B-TYPE NATRIURETIC FACTOR (BNP)2018-03-05 08:21:00 Test Item Value Reference Range Interpretation Comments B-TYPE NATRIURETIC PEPTIDE (BEAKER) 222 pg/mL 0-100 H (test code = 700) [id number] 08:07:00 Test Item Value Reference Range Interpretation Comments AMMONIA (BEAKER) (test code = 348) 38 mol/L 18-72 RAD, CHEST, 1 VIEW, NON [id number] 06:28:00Reason for exam:->resp failureShould this be performed at the bedside?->YesFINAL REPORT RAD, CHEST, 1 VIEW, NON DEPT INDICATION: resp failure COMPARISON: Prior day's exam FINDINGS: Portable frontal view of the chest. IMPRESSION: Support Lines: Stable. Lungs and pleura: Unchanged airspace and pleural opacities. No pneumothorax.Heart and mediastinum: Stable contours. Stable surgical changes.Additional findings: None. Signed: David Jha Verified Date/Time: 03/05/2018 06:28:24 Reading Location: [address] Transitional Reading Room SHIGA TOXIN [id number] 06:12:00 Test Item Value Reference Range Interpretation Comments SHIGA TOXIN 1 (BEAKER) (test Not detected Not detected code = 2177) SHIGA TOXIN 2 (BEAKER) (test Not detected Not detected code = 2179) CBC W/PLT COUNT & AUTO [id number] 05:32:00 Test Item Value Reference Range Interpretation [...] (BEAKER) (test code = 2801) BASIC METABOLIC [id number] 05:31:00 Test Item Value Reference Range Interpretation [...] or 8 hours after PO replacementcompleted.BLOOD GAS, [id number] 05:29:00 Test Item Value Reference Range Interpretation [...] (BEAKER) (test code = 1819) 30.0 % [id number] 05:28:00 Test Item Value Reference Range Interpretation Comments PHOSPHORUS (RUBY) (test code = 2.4 mg/dL 2.3-4.7 604) Check Serum Phosphorus level 4 hours after IV phosphorus replacement or 8 hours after PO replacementcompleted.[id number] 05:28:00 Test Item Value Reference Range Interpretation Comments MAGNESIUM (RUBY) (test code = 2.8 mg/dL 1.6-2.6 H 627) Check Serum Phosphorus level 4 hours after IV phosphorus replacement or 8 hours after PO replacementcompleted.POCT-GLUCOSE [id number] 04:14:00 Test Item Value Reference Range Interpretation Comments POC-GLUCOSE METER 164 mg/dL 70-110 H TESTED AT [place] [address] (RUBY) (test code = TEX Shabazz [facility] 1538) [address] POCT-GLUCOSE [id number] 21:41:00 Test Item Value Reference Range Interpretation Comments POC-GLUCOSE METER 161 mg/dL 70-110 H TESTED AT [place] [address] (RUBY) (test code = TEX Shabazz [facility] 1538) [address] POCT-GLUCOSE [id number] 17:49:00 Test Item Value Reference Range Interpretation Comments POC-GLUCOSE METER 163 mg/dL 70-110 H TESTED AT [place] [address] (RUBY) (test code = [facility] Mele [facility] 1538) [address] CT, [id number] 16:57:00FINAL REPORT CT of the abdomen and [...] Mild splenomegaly. Status post cholecystectomy. Signed: Shama Melendezeport Verified Date/Time: 03/04/2018 16:57:24 Reading Location: [facility] C013Y CT Body Reading Room Sunita ctronically signed by: SHAMA MELENDEZ M.D. on 03/04/2018 04:57 PMSTOOL PATH CHARGE 2018-03-04 14:52:00 Test Item Value Reference Range Interpretation Comments PATHOGEN EXAM CHARGED (BEAKER) (test Done code = 2381) BASIC METABOLIC [id number] 12:28:00 Test Item Value Reference Range Interpretation [...] APPLICABLE FOR DIALYSIS PATIEN TS. HEMOGLOBIN AND [id number] 12:08:00 Test Item Value Reference Range Interpretation Comments HEMOGLOBIN (BEAKER) (test code = 8.2 GM/DL 13.7-17.5 L 410) HEMATOCRIT (BEAKER) (test code = 26.2 % 40.1-51.0 L 411) POCT-GLUCOSE [id number] 11:16:00 Test Item Value Reference Range Interpretation Comments POC-GLUCOSE METER 159 mg/dL 70-110 H TESTED AT [facility] 6720 (BEAKER) (test code = [place] 153) [address] LACTIC ACID, ARTERIAL, WHOLE [id number] 10:35:00 Test Item Value Reference Range Interpretation Comments LACTATE BLOOD ARTERIAL (2) 0.7 mmol/L 0.5-2.2 (BEAKER) (test code = 2874) [id number] 08:12:00 Test Item Value Reference Range Interpretation Comments AMMONIA (BEAKER) (test code = 348) 44 mol/L 18-72 RAD, CHEST, 1 VIEW, NON [id number] 05:12:00Reason for exam:->resp failureShould this be performed [...] None. Signed: David Jha Verified Date/Time: 03/04/2018 05:12:43 Reading Location: [address] Transitional Reading Room BASIC METABOLIC PANEL [...] S NOT APPLICABLE FOR DIALYSIS PATIEN TS. [id number] 04:55:00 Test Item Value Reference Range Interpretation Comments MAGNESIUM (BEAKER) (test code = 3.1 mg/dL 1.6-2.6 H 627) CBC W/PLT COUNT & AUTO [id number] 04:38:00 Test Item Value Reference Range Interpretation [...] (BEAKER) (test code = 2801) BLOOD GAS, [id number] 04:23:00 Test Item Value Reference Range Interpretation [...] (test code = 1819) 40.0 % POCT-GLUCOSE [id number] 22:12:00 Test Item Value Reference Range Interpretation Comments POC-GLUCOSE METER 171 mg/dL 70-110 H TESTED AT [facility] 6720 (BEAKER) (test code = [place] 1538) [address] TROPONIN [id number] 22:08:00 Test Item Value Reference Range Interpretation [...] neurological disease, and persistent tachyarrhythmia.HEPATITIS A ANTIBODY, [id number] 20:40:00 Test Item Value Reference Range Interpretation Comments HEPATITIS A IGG ANTIBODY (BEAKER) Reactive Nonreactive A (test code = 2797) ALPHA FETOPROTEIN (AFP), TUMOR [id number] 20:40:00 Test Item Value Reference Range Interpretation Comments ALPHA-FETOPROTEIN (BEAKER) (test code < ng/mL <10.0 = 1094) CARCINOEMBRYONIC ANTIGEN (CEA)2018-03-03 20:36:00 Test Item Value Reference Range Interpretation Comments CARCINOEMBRYONIC ANTIGEN (BEAKER) 2.2 ng/mL 0.0-5.0 (test code = 685) HEPATITIS B CORE ANTIBODY, [id number] 20:36:00 Test Item Value Reference Range Interpretation Comments HEPATITIS B CORE TOTAL ANTIBODY Nonreactive Nonreactive (BEAKER) (test code = 497) HEPATITIS B SURFACE [id number] 20:23:00 Test Item Value Reference Range Interpretation Comments HEPATITIS B SURFACE ANTIBODY < mIU/mL <8.0 (BEAKER) (test code = 647) HEPATITIS B SURFACE [id number] 20:22:00 Test Item Value Reference Range Interpretation Comments HEPATITIS B SURFACE ANTIGEN (2) Nonreactive Nonreactive (BEAKER) (test code = 2585) HEPATITIS C [id number] 20:22:00 Test Item Value Reference Range Interpretation Comments HEPATITIS C ANTIBODY (BEAKER) Nonreactive Nonreactive (test code = 367) POCT-GLUCOSE [id number] 19:30:00 Test Item Value Reference Range Interpretation Comments POC-GLUCOSE METER 169 mg/dL 70-110 H TESTED AT [facility] 6720 (NAILAAKER) (test code = [place] 1538) [address] RAD, CHEST, 1 VIEW, NON [id number] 19:12:00Reason for exam:- >intubatedShould this be performed [...] MDReport Verified Date/Time: 03/03/2018 19:12:40 Reading Location: [address] Reading Room FECAL [id number] 18:56:00 Test Item Value Reference Range Interpretation Comments FECAL LEUKOCYTES No fecal leukocytes No fecal leukocytes (BEAKER) (test code = seen seen 992) RAD, ABDOMEN/KUB, 1 VIEW [id number] 18:41:00Reason for exam:->NGT placement FINAL REPORT Abdomen date 03/03/2018 Comment: Frontal view of the abdomen demonstrates a nasogastric tube present with tip noted in the in the body of the stomach. Signed: Israel Barr MDReport Verified Date/Time: 03/03/2018 18:41:41 Reading Location: [facility] C013W Consult ReadingRoom FERRITIN 2018-03-03 18:13:00 Test Item Value Reference Range Interpretation Comments FERRITIN (BEAKER) (test code = 361) 28 ng/mL 5-275 TROPONIN [id number] 17:26:00 Test Item Value Reference Range Interpretation [...] acute neurological disease, and persistent tachyarrhythmia.HEPATIC FUNCTION [id number] 17:19:00 Test Item Value Reference Range Interpretation [...] 20-55 (test code = 2590) BASIC METABOLIC [id number] 17:19:00 Test Item Value Reference Range Interpretation [...] DIALYSIS PATIEN TS. Specimen slightly ictericHEMOGLOBIN AND [id number] 17:15:00 Test Item Value Reference Range Interpretation Comments HEMOGLOBIN (BEAKER) (test code = 8.3 GM/DL 13.7-17.5 L 410) HEMATOCRIT (BEAKER) (test code = 25.7 % 40.1-51.0 L 411) PROTHROMBIN [id number] 16:53:00 Test Item Value Reference Range Interpretation Comments PROTIME (BEAKER) (test code = 16.1 seconds 11.7-14.7 H 759) INR (BEAKER) (test code = 370) 1.3 <=5.9 RECOMMENDED COUMADIN/WARFARIN INR THERAPY RANGESSTANDARD DOSE: 2.0 - 3.0 Includes: PROPHYLAXIS forvenous thrombosis, systemic embolization; TREATMENT for venous thrombosis and/or pulmonary embolus.HIGH RISK: Target INR is 2.5-3.5 for patients with mechanical heart valves.[id number] 16:53:00 Test Item Value Reference Range Interpretation Comments FIBRINOGEN LEVEL (BEAKER) (test 333 mg/dl 225-434 code = 658) [id number] 16:51:00 Test Item Value Reference Range Interpretation Comments PROCALCITONIN (BEAKER) (test code = < ng/mL <0.05 3036) SEPSIS RISK (ng/mL)Low: 0.05-0.50Intermediate: 0.51-2.00High: >=2.01BLOOD GAS, [id number] 16:07:00 Test Item Value Reference Range Interpretation [...] = 1819) 60.0 % EEG AWAKE AND [id number] 14:50:00Reason for exam:->altered mental statusEEG REPORT: [facility] Arriaga[facility] Date of EEDate of report: EEG start time: 1216EEG end time: 1237EEG #: [id number] No: [id number] ICD Code: #: R41.82 Altered mental status, unspecified (ICD 9: 780.97)CPT Code: #: 77685: 03. EEG coma or sleep only; 20-40 [...] also be associated withother settings of widespread [employer]INEER insults, including the aftermath of prolonged seizures. Intermittent attenuations reflect cortical suppression.Clinical Fellow: Henri YañezNeurophysiologist: Wil Mathias POCT-LACTIC ACID, [id number] 14:13:00 Test Item Value Reference Range Interpretation Comments POC-LACTIC ACID, 1.2 mmol/L 0.4-1.3 TESTED AT [facility] 6720 ARTERIAL (BEAKER) MYRNA [facility] (test code = 2804) [address] POCT-BLOOD GASES, [id number] 14:13:00 Test Item Value Reference Range Interpretation Comments TEMP, CELSIUS-POC 37.0 (BEAKER) (test code = 1834) FIO2-POC (BEAKER) TESTED AT [facility] 6720 (test code = 1835) MYRNA [facility] [address] PH, ARTERIAL-POC 7.496 7.350-7.450 H (BEAKER) (test code = 1836) PCO2, ARTERIAL-POC 31.0 mm Hg 35.0-45.0 L (BEAKER) (test code = 1837) PO2, ARTERIAL-POC 66.0 mm Hg 80.0-90.0 L (BEAKER) (test code = 1838) SO2, ARTERIAL-POC 95.0 % 96.0-97.0 L (BEAKER) (test code = 1839) HCO3, ARTERIAL-POC 23.9 meq/L 21.0-29.0 (BEAKER) (test code = 1840) BASE EXCESS, 1.0 meq/L -2.0-3.0 ARTERIAL-POC ([facility]) (test code = 1841) [id number] 14:13:00 Test Item Value Reference Range Interpretation Comments POC-SODIUM (BEAKER) 151 meq/L 135-148 H TESTED A [place] [address] (test code = 1542) MYRNA [facility] [address] [id number] 14:13:00 Test Item Value Reference Range Interpretation Comments POC-POTASSIUM 3.7 meq/L 3.6-5.5 TESTED AT [place] [address] ([facility]) (test code [facility] [address] = 1540) [id number] 14:13:00 Test Item Value Reference Range Interpretation Comments POC-GLUCOSE ([facility]) 170 mg/dL 70-110 H TESTED AT [place] [address] (test code = 1855) [facility] [address] POCT-CALCIUM [id number] 14:13:00 Test Item Value Reference Range Interpretation Comments POC-CALCIUM IONIZED 1.20 mmol/L 1.12-1.27 TESTED A [place] [address] ([facility]) (test code = [facility] 1535) [address] [id number] 14:13:00 Test Item Value Reference Range Interpretation Comments POC-HEMATOCRIT 24 % 40-50 L TESTED AT [place] [address] ([facility]) (test code = [facility] [address] 6548) [id number] 14:13:00 Test Item Value Reference Range Interpretation Comments POC-HEMOGLOBIN 8.2 g/dL 13.0-16.8 L TESTED AT [place] [address] ([facility]) (test code = [facility] 1856) [address]UAXWEH AT [place] [address] MYRNA [facility] [address] VITAMIN B12 AND [id number] 13:00:00 Test Item Value Reference Range Interpretation Comments VITAMIN B12 (BEAKER) (test code = 715 pg/mL 213-712 714) FOLATE ([facility]) (test code = 362) 17.0 ng/mL >=7.0 POCT-GLUCOSE [id number] 12:55:00 Test Item Value Reference Range Interpretation Comments POC-GLUCOSE METER 190 mg/dL 70-110 H TESTED AT [facility] 6720 (BEAKER) (test code = [place] 1538) [address] [id number] 11:41:00 Test Item Value Reference Range Interpretation Comments PROCALCITONIN (BEAKER) (test code = < ng/mL <0.05 3036) SEPSIS RISK (ng/mL)Low: 0.05-0.50Intermediate: 0.51-2.00High: >=2.01URINALYSIS W/ REFLEX URINE [id number] 11:27:00 Test Item Value Reference Range Interpretation [...] (test code = 2795) TSH/FREE T4 IF [id number] 11:19:00 Test Item Value Reference Range Interpretation Comments THYROID STIMULATING HORMONE 2.67 uIU/mL 0.35-4.94 (BEAKER) (test code = 772) TROPONIN [id number] 11:04:00 Test Item Value Reference Range Interpretation [...] failure, acidosis, acute neurological disease, and persistent tachyarrhythmia.[id number] 11:00:00 Test Item Value Reference Range Interpretation Comments SODIUM (BEAKER) (test code = 381) 148 meq/L 136-145 H HEMOGLOBIN [id number] 10:53:00 Test Item Value Reference Range Interpretation Comments HEMOGLOBIN A1C (BEAKER) (test code = 6.2 % 4.3-6.1 H 368) [id number] 10:45:00 Test Item Value Reference Range Interpretation Comments AMMONIA (BEAKER) (test code = 348) 98 mol/L 18-72 H C. DIFFICILE GDH [id number] 09:57:00 Test Item Value Reference Range Interpretation Comments CDT TOXIN (test code Negative Negative = [id number]) CDT GDH ANTIGEN Positive Negative A C. difficile present but (test code = toxin not detec vikki. [id number]) Indicates colon ization with non-toxige amberly strain [...] of kit performance was done by the [facility] Microbiology Lab prior to clinical use.BASIC METABOLIC [id number] 07:28:00 Test Item Value Reference Range Interpretation [...] pg/mL 0-100 H (test code = 700) [id number] 06:52:00 Test Item Value Reference Range Interpretation Comments PHOSPHORUS (BEAKER) (test code = 2.3 mg/dL 2.3-4.7 604) [id number] 06:52:00 Test Item Value Reference Range Interpretation [...] code = 413) MR, MRA, BRAIN, WITHOUT [id number] 05:21:00Reason for exam:->Ischemic Stroke EvaluationFINAL REPORT MRI Brain without contrast Clinical History: Ischemic Stroke EvaluationAMS, Afib Technique: MRI of the brain utilizing axial T2, FLAIR, GRE, DWI; sagittal and coronal T1-weighted images. MRA of the head utilizing 3-D tlsd-uq-hrihxe technique, with 3-D reconstructions. MRA of the neck utilizing 2-D and 3-D cjbh-pq-fdjwgv technique, with 3-D reconstructions. Comparisons: None Findings:MRI [...] MRA head: No evidence for a major [place] proximal branch vessel occlusion. MRA [...] MDReport Verified Date/Time: 03/03/2018 05:21:46 Reading Location: [address] Transitional Reading Room MR, MRA, NECK, WITHOUT IV [id number] 05:21:00 Reason for exam:->Ischemic Stroke EvaluationFINAL REPORT MRI Brain without contrast Clinical History: Ischemic Stroke Eval uationAMS, Afib Technique: MRI of the brain utilizing axial T2, FLAIR, GRE, DWI; sagittal and coronal T1-weighted images. MRA of the head utilizing 3-D jenl-dr-gzaytm technique, with 3-D reconstructions. MRA of the neck utilizing 2- D and 3-D arbf-hd-exnohn technique, with 3-D reconstructions. Comparisons: None Findings:MRI [...] MRA head: No evidence for a major [place] proximal branch vessel occlusion. MRA [...] Jha Verified Date/Time: 03/03/2018 05:21:46 Reading Location: [facility] C013T Transitional Reading Room MR, BRAIN, WITHOUT [id number] 05:21:00Reason for exam:->Ischemic Stroke EvaluationFINAL REPORT MRI Brain without contrast Clinical History: Ischemic Stroke EvaluationAMS, Afib Technique: MRI of the brain utilizing axial T2, FLAIR, GRE, DWI; sagittal and coronal T1-weighted images. MRA of the head utilizing 3-D pyqy-jz-izxfgu technique, with 3-D reconstructions. MRA of the neck utilizing 2-D and 3-D jpvj-sd-smdouc technique, with 3-D reconstructions. Comparisons: None Findings:MRI [...] MRA head: No evidence for a major [place] proximal branch vessel occlusion. MRA [...] vertebral arteries by NASCETcriteria. Signed: David Jha MDRcindyort Verified Date/Time: 03/03/2018 05:21:46 Reading Location: [address] Reading Room POCT-GLUCOSE [id number] 05:15:00 Test Item Value Reference Range Interpretation Comments POC-GLUCOSE METER 207 mg/dL 70-110 H TESTED AT [facility] 67 ([facility]) (test code = [place] Shabazz [facility] 1538) [address] RAD, CHEST, 1 VIEW, NON [id number] 01:11:00Reason for exam:->AMSShould this be performed at [...] the right upper quadrant. Signed: Dawson Barron MDRcindyort Verified Date/Time: 03/03/2018 01:11:47 Reading Location: [address] Reading Room URINALYSIS WITH MICROSCOPIC IF [id number] 00:58:00 Test Item Value Reference Range Interpretation [...] 463) SOURCE(BEAKER) (test code = 2795) URINALYSIS [id number] 00:58:00 Test Item Value Reference Range Interpretation Comments RBC UA (BEAKER) (test code = 519) 1 /HPF WBC UA (BEAKER) (test code = 520) 1 /HPF SQUAMOUS EPITHELIAL (BEAKER) (test < /HPF code = 516) AMORPHOUS CRYSTALS (BEAKER) (test Occasional code = 1584) CT, BRAIN/STROKE [id number] 23:16:00FINAL REPORT CT Head without contrast CLINICAL [...] Jha Verified Date/Time: 03/02/2018 23:16:55 Reading Location: [address] Transitional Reading Room IC ACID, VENOUS, WHOLE [id number] 22:01:00 Test Item Value Reference Range Interpretation Comments LACTATE BLOOD VENOUS (2) (BEAKER) 1.6 mmol/L 0.5-2.2 (test code = 2872) POCT-GLUCOSE [id number] 21:31:00 Test Item Value Reference Range Interpretation Comments POC-GLUCOSE METER 207 mg/dL 70-110 H TESTED AT [facility] 6720 (BEAKER) (test code = [place] 1538) [address] OCCULT BLOOD, [id number] 19:48:00 Test Item Value Reference Range Interpretation Comments FECAL OCCULT BLOOD (BEAKER) (test Positive Negative A code = 618) BASIC METABOLIC [id number] 17:26:00 Test Item Value Reference Range Interpretation [...] APPLICABLE FOR DIALYSIS PATIEN TS. HEMOGLOBIN AND [id number] 17:09:00 Test Item Value Reference Range Interpretation Comments HEMOGLOBIN (BEAKER) (test code = 8.2 GM/DL 13.7-17.5 L 410) HEMATOCRIT (BEAKER) (test code = 25.7 % 40.1-51.0 L 411) POCT-GLUCOSE [id number] 16:40:00 Test Item Value Reference Range Interpretation Comments POC-GLUCOSE METER 212 mg/dL 70-110 H TESTED AT [facility] 6720 (BEAKER) (test code = [place] 1538) [address] CT, BRAIN, WITHOUT [id number] 12:26:00FINAL REPORT CT head without contrast 03/02/2018 [...] with MRI is recommended. Signed: Zelalem Gaona [facility] Verified Date/Time: 03/02/2018 12:26:23 Reading Location: [facility] C013V Neuro Reading Room HEMOGLOBIN AND [id number] 12:14:00 Test Item Value Reference Range Interpretation Comments HEMOGLOBIN (BEAKER) (test code = 8.3 GM/DL 13.7-17.5 L 410) HEMATOCRIT (BEAKER) (test code = 25.9 % 40.1-51.0 L 411) POCT-GLUCOSE [id number] 10:26:00 Test Item Value Reference Range Interpretation Comments POC-GLUCOSE METER 178 mg/dL 70-110 H TESTED AT [facility] 6720 (BEAKER) (test code = [place] 1538) [address] [id number] 05:10:00 Test Item Value Reference Range Interpretation Comments MAGNESIUM (BEAKER) (test code = 2.2 mg/dL 1.6-2.6 627) BASIC METABOLIC [id number] 05:10:00 Test Item Value Reference Range Interpretation [...] 0-0 (test code = 413) BASIC METABOLIC [id number] 06:30:00 Test Item Value Reference Range Interpretation [...] PATIEN TS. CBC W/PLT COUNT & AUTO [id number] 06:30:00 Test Item Value Reference Range Interpretation [...] = 2801) RAD, CHEST, 1 VIEW, NON [id number] 04:10:00post-operative day 1Reason for exam:->chfShould this be [...] Jha Verified Date/Time: 09/11/2017 04:10:08 Reading Location: [address] Reading Room BASIC METABOLIC PANEL 2017-09-11 [...] Specimen slightly ictericCBC W/PLT COUNT & AUTO [id number] 03:48:00 Test Item Value Reference Range Interpretation [...] 0-1 PERCENT (BEAKER) (test code = 2801) [id number] 16:36:00 Test Item Value Reference Range Interpretation Comments ACTIVATED CLOTTING TIME 142 sec TEST ED AT [facility] 6720 (BEAKER) (test code = [place] 441) [address] [id number] 16:02:00 Test Item Value Reference Range Interpretation Comments ACTIVATED CLOTTING TIME 279 sec TEST ED AT [place] [address] (BEAKER) (test code = [place] [address]) [address] [id number] 16:02:00 Test Item Value Reference Range Interpretation Comments ACTIVATED CLOTTING TIME 252 sec TEST ED AT [place] [address] (BEAKER) (test code = DYLANAL [place] [address]) [address] B-TYPE NATRIURETIC FACTOR (BNP)2017-08-24 15:17:00 Test Item Value Reference Range Interpretation Comments B-TYPE NATRIURETIC PEPTIDE (BEAKER) 170 pg/mL 0-100 H (test code = 700) BASIC METABOLIC [id number] 15:08:00 Test Item Value Reference Range Interpretation [...] APPLICABLE FOR DIALYSIS PATIEN TS. Specimen slightly [id number] 15:08:00 Test Item Value Reference Range Interpretation Comments ALBUMIN (BEAKER) (test code = 1145) 4.2 g/dL 3.5-5.0 PROTHROMBIN [id number] 14:59:00 Test Item Value Reference Range Interpretation [...] (BEAKER) (test code = 2801) BASIC METABOLIC [id number] 06:31:00 Test Item Value Reference Range Interpretation [...] APPLICABLE FOR DIALYSIS PATIEN TS. URINALYSIS W/ [id number] 17:39:00 Test Item Value Reference Range Interpretation [...] SOURCE(BEAKER) (test code Urine, Clean Catch = 1355) BASIC METABOLIC [id number] 05:57:00 Test Item Value Reference Range Interpretation [...] PATIEN TS. CBC W/PLT COUNT & AUTO [id number] 05:36:00 Test Item Value Reference Range Interpretation [...] (BEAKER) (test code = 2801) BASIC METABOLIC [id number] 07:35:00 Test Item Value Reference Range Interpretation [...] DIALYSIS PATIEN TS. Specimen slightly ictericBASIC METABOLIC [id number] 06:09:00 Test Item Value Reference Range Interpretation [...] = 700) RAD, CHEST, 1 VIEW, NON [id number] 17:23:00Reason for exam:->chfShould this be performed at [...] [place] Verified Date/Time: 07/28/2017 17:23:24 Reading Location: [facility] Radiology Reading Room URINE [id number] 10:09:00 Test Item Value Reference Interpretation Comments [...] 47) Resistant <0 or >40 COMPREHENSIVE METABOLIC [id number] 07:06:00 Test Item Value Reference Range Interpretation [...] Specimen slightly ictericCBC W/PLT COUNT & AUTO [id number] 06:35:00 Test Item Value Reference Range Interpretation [...] (BEAKER) (test code = 2801) URINALYSIS W/ [id number] 18:38:00 Test Item Value Reference Range Interpretation [...] SOURCE(BEAKER) (test code Urine, Clean Catch = 5415) CBC W/PLT COUNT & AUTO [id number] 04:47:00 Test Item Value Reference Range Interpretation [...] (BEAKER) (test code = 2801) BASIC METABOLIC [id number] 04:36:00 Test Item Value Reference Range Interpretation [...] pg/mL 0-100 H (test code = 700) [id number] 07:02:00 Test Item Value Reference Range Interpretation [...] (BEAKER) (test code = 413) CT, CTA, [id number] 16:16:00Addendum BeginsREPORT STATUS:A Addendum: July 22, 2017 at 1620 hours I have reviewed the CT images for this study and I concur with the nonvascular imaging findings as dictated. Si gned: Sandip Christianson MDReport Verified Date/Time: 07/22/2017 16:16:14 Reading Location: [place] [id number] Angio Body Reading RoomAddendum EndsFINAL REPORT CT [...] bypass surgery. The internal mammary arteries are [place]. A bypass graft is identified, that is [...] An addendum will be dictated by the Machine Clothing Man Radiologist regarding the nonvascular findings. Signed: Abdoul Galloway Verified Date/Time: 07/22/2017 15:43:41 Reading Location: [place] [address], CTA [id number] 16:16:00TAVRAddendum BeginsREPORT STATUS:A Addendum: July 22, 2017 at 1620 hours I have reviewed the CT images for this study and I concur with the nonvascular imaging findings as dictated. Si gned: Sandip Christianson Verified Date/Time: 07/22/2017 16:16:14 Reading Location: [place] [id number] Angio Body Reading RoomAddendum EndsFINAL REPORT CT [...] bypass surgery. The internal mammary arteries are [place]. A bypass graft is identified, that is [...] An addendum will be dictated by the Machine Clothing Man Radiologist regarding the nonvascular findings. Signed: Abdoul Galloway MDReport Verified Date/Time: 07/22/2017 15:43:41 Reading Location: [place] [address] Cardiology MRI BASI METABOLIC [id number] 05:06:00 Test Item Value Reference Range Interpretation [...] 0-100 H (test code = 700) POCT-GLUCOSE [id number] 20:48:00 Test Item Value Reference Range Interpretation Comments POC-GLUCOSE METER 133 mg/dL 70-110 H TESTED AT [facility] 6720 (BEAKER) (test code = [place] 1538) [address] [id number] 06:17:00 Test Item Value Reference Range Interpretation Comments PHOSPHORUS (BEAKER) (test code = 2.3 mg/dL 2.3-4.7 604) [id number] 06:17:00 Test Item Value Reference Range Interpretation Comments MAGNESIUM (BEAKER) (test code = 2.2 mg/dL 1.6-2.6 627) BASIC METABOLIC [id number] 06:17:00 Test Item Value Reference Range Interpretation [...] PATIEN TS. CBC W/PLT COUNT & AUTO [id number] 05:58:00 Test Item Value Reference Range Interpretation [...] 0-1 PERCENT (BEAKER) (test code = 2801) [id number] 05:42:00 Test Item Value Reference Range Interpretation Comments MAGNESIUM (BEAKER) (test code = 2.2 mg/dL 1.6-2.6 627) BASIC METABOLIC [id number] 05:42:00 Test Item Value Reference Range Interpretation [...] PATIEN TS. CBC W/PLT COUNT & AUTO [id number] 08:51:00 Test Item Value Reference Range Interpretation [...] (BEAKER) (test code = 2801) BASIC METABOLIC [id number] 06:59:00 Test Item Value Reference Range Interpretation [...] APPLICABLE FOR DIALYSIS PATIEN TS. Specimen slightly [id number] 06:50:00 Test Item Value Reference Range Interpretation Comments MAGNESIUM (BEAKER) (test code = 2.2 mg/dL 1.6-2.6 627) [id number] 14:04:00 Test Item Value Reference Range Interpretation Comments CORTISOL, TOTAL (BEAKER) (test 14.3 ug/dL 3.7-19.4 code = 2755) B-TYPE NATRIURETIC FACTOR (BNP)2017-07-17 05:11:00 Test Item Value Reference Range Interpretation Comments B-TYPE NATRIURETIC PEPTIDE (BEAKER) 462 pg/mL 0-100 H (test code = 700) URIC [id number] 05:09:00 Test Item Value Reference Range Interpretation Comments URIC ACID (BEAKER) (test code = 9.8 mg/dL 2.6-7.2 H 773) [id number] 05:09:00 Test Item Value Reference Range Interpretation Comments MAGNESIUM (BEAKER) (test code = 2.0 mg/dL 1.6-2.6 627) COMPREHENSIVE METABOLIC [id number] 05:09:00 Test Item Value Reference Range Interpretation [...] PATIEN TS. CBC W/PLT COUNT & AUTO [id number] 04:52:00 Test Item Value Reference Range Interpretation [...] = 2801) RAD, CHEST, 1 VIEW, NON [id number] 04:01:00Reason for exam:- >oliguriaShould this be performed [...] MDReport Verified Date/Time: 07/17/2017 04:01:10 Reading Location: [address] Reading Room SODIUM, RANDOM URINE 2017-07-16 19:25:00 Test Item Value Reference Range Interpretation Comments SODIUM URINE (BEAKER) (test code = < meq/L 243) Reference Range: No NormalsCREATININE, RANDOM [id number] 19:14:00 Test Item Value Reference Range Interpretation Comments CREATININE URINE (BEAKER) (test 131.4 mg/dL code = 375) Reference Range: No NormalsPROTEIN, RANDOM [id number] 19:14:00 Test Item Value Reference Range Interpretation Comments PROTEIN, URINE (BEAKER) (test code = 23 mg/dL 0-14 H 1569) OSMOLALITY, [id number] 19:00:00 Test Item Value Reference Range Interpretation Comments OSMOLALITY URINE (BEAKER) (test 346 mOsm/kg 40-1400 code = 614) RAD, CHEST, 1 VIEW, NON [id number] 16:22:00Reason for exam:->central line placementShould this be performed at the bedside?->YesFINAL REPORT TECHNIQUE: Frontal chest radiograph dated 07/16/2017. CLINICAL HI STORY: Central line placement COMPARISON STUDY: Chest radiograph performed earlier the same day. IMPRESSION:Right-sided Critz-Ezequiel catheter tip projects over the affected region of superior vena cava/right atrial junction. There is streaky atelectasis in the left lung base. No focal consolidation. No pleural effusion or pneumothorax. Cardiomediastinal silhouette is normal in size. No pulmonary edema.Midline sternotomy wires are intact and well aligned. No fracture. Bones are osteopenic. Signed: Ravi Griffineport Verified Date/Time: 07/16/2017 16:22:02 Reading Location: [facility] Radiology Reading Room RAD, CHEST, 1 VIEW, NON [id number] 09:32:00Reason for exam:->cxfShould this be performed at [...] MDReport Verified Date/Time: 07/16/2017 09:32:51 Reading Location: [facility] Radiology Reading Room B-TYPE NATRIURETIC FACTOR (BNP)2017-07-16 02:38:00 Test Item Value Reference Range Interpretation Comments B-TYPE NATRIURETIC PEPTIDE (BEAKER) 251 pg/mL 0-100 H (test code = 700) BASIC METABOLIC [id number] 02:32:00 Test Item Value Reference Range Interpretation [...] TS. Specimen slightly ictericLACTIC ACID, VENOUS, WHOLE [id number] 02:28:00 Test Item Value Reference Range Interpretation [...] (BEAKER) (test code = 413) HEMOGLOBIN AND [id number] 19:53:00 Test Item Value Reference Range Interpretation Comments HEMOGLOBIN (BEAKER) (test code = 9.4 GM/DL 13.7-17.5 L 410) HEMATOCRIT (BEAKER) (test code = 29.0 % 40.1-51.0 L 411) B-TYPE NATRIURETIC FACTOR (BNP)2017-07-15 16:30:00 Test Item Value Reference Range Interpretation Comments B-TYPE NATRIURETIC PEPTIDE (BEAKER) 155 pg/mL 0-100 H (test code = 700) [id number] 16:23:00 Test Item Value Reference Range Interpretation Comments MAGNESIUM (BEAKER) 2.0 mg/dL 1.6-2.6 Specimen slightly (test code = 627) hemolyzed BASIC METABOLIC [id number] 16:23:00 Test Item Value Reference Range Interpretation [...] TS. Specimen slightly ictericLACTIC ACID, VENOUS, WHOLE [id number] 16:19:00 Test Item Value Reference Range Interpretation [...] code = 412) PLATELET COUNT (BEAKER) (test 127 K/CU MM 150-450 L code = 756) MEAN PLATELET VOLUME (BEAKER) 11.5 fL 9.4-12.4 (test code = 754) NUCLEATED RED BLOOD CELLS 0 /100 WBC 0-0 ([facility]) (test code = 413) [id number] 12:47:00 Test Item Value Reference Range Interpretation Comments ACTIVATED CLOTTING TIME 224 sec TEST ED AT [place] [address] ([facility]) (test code = [place] [facility]) [id number] 12:47:00 Test Item Value Reference Range Interpretation Comments ACTIVATED CLOTTING TIME 257 sec TEST ED AT [place] [address] ([facility]) (test code = [place] [facility]) [address] [id number] 12:47:00 Test Item Value Reference Range Interpretation Comments ACTIVATED CLOTTING TIME 219 sec TEST ED AT [place] [address] ([facility]) (test code = TEX [place] [address]) [address]
[2020-09-01 12:58] LABS: Absolute Lymphocytes (CBC) 0.8 K/uL (0.7-4.9); Hematocrit 31.5 % (39.6-49.0); Lymphocytes % 20.2 % (15.3-44.8); MPV 9.9 fL (7.6-11.3)
[2020-09-01 13:00] LABS: Protime INR 1.26
[2020-09-01 13:22] LABS: Albumin 3.5 g/dL (3.4-5.0); Bilirubin Direct 0.8 mg/dL (0-0.2); Bilirubin Total 2.2 mg/dL (0.2-1.0); Magnesium 2.4 mg/dL (1.8-2.4); Potassium 4.6 mmol/L (3.5-5.1); Protein, Total 6.8 g/dL (6.4-8.2); Troponin (Emerg Dept Use Only) 0.02 ng/mL (0.0-0.045)
--- NOTE | 2020-09-01 13:34 | RAD REPORT ---
EXAM DESCRIPTION: RAD - Chest Single View - 09/01/2020 1:20 pm CLINICAL HISTORY: COUGH Chest pain. FINDINGS: Portable technique limits examination quality. Mild interstitial pulmonary edema is seen. The heart is moderately enlarged in size No displaced frac tures.Sternotomy wires present. IMPRESSION: Mild CHF versus volume overload pattern.
[2020-09-01 13:49] LABS: Blood Morphology Comment NOTED (NOT SEEN); Macrocytosis 1+; Platelet Estimate DECR; White Blood Cell Scan OK (OK)
--- NOTE | 2020-09-01 15:56 | EDPHYS ---
Physician Documentation [facility] Name: Chris Mcwilliams Age: 89 yrs Sex: Male : 1930 Arrival Date: 09/01/2020 Time: 11:42 Bed 18 Private MD: ED Physician Jordy Aragon HPI: 09/01 16:34 This 89 yrs old Male presents to ER via Ambulatory with complaints of Foot kdr and Leg Swelling. 16:34 The patient presents with swelling. The complaints affect the , . 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 Onset: The symptoms/episode began/occurred gradually, 2 week(s) ago. Modifying factors: The symptoms are alleviated by nothing. the symptoms are aggravated by Dependent . Associated signs and symptoms: The patient has no apparent associated signs or symptoms. Severity of symptoms: At their worst the symptoms were moderate, severe, incapacitating, in the emergency department the symptoms are unchanged. The patient has not experienced similar symptoms in the past. The patient has not recently seen a physician. Historical: - Home Meds: 12:41 Carafate 1 gram Oral tab 1 tab 4 times per day [Active]; Protonix 40 mg Oral TbEC 1 tab tr6 once daily [Active]; torsemide 20 mg Oral tab 1 tab once daily [Active]; tamsulosin 0.4 mg Oral cp24 1 cap once daily [Active]; metoprolol tartrate 25 mg Oral tab 1 tab 2 times per day [Active]; - PMHx: 12:12 incontent; CHF; Diabetes - IDDM; Myocardial infarction; Hypertension; Hyperlipidemia; kg 12:14 Diverticulitis; kg - PSHx: 12:14 heart valve replacement; Coronary artery bypass graft; kg - Immunization history:: Adult Immunizations not up to date, Client reports receiving the 2nd dose of the Covid vaccine. - Social history:: Smoking status: Patient denies any tobacco usage or history of. ROS: 16:34 Constitutional: Negative for fever, chills, and weight loss, Eyes: Negative for injury, kdr pain, redness, and discharge, ENT: Negative for injury, pain, and discharge, Neck: Negative for injury, pain, and swelling, Cardiovascular: Negative for chest pain, palpitations, and edema, Respiratory: Negative for shortness of breath, cough, wheezing, and pleuritic chest pain, Abdomen/GI: Negative for abdominal pain, nausea, vomiting, diarrhea, and constipation, Back: Negative for injury and pain, : Negative for injury, bleeding, discharge, and swelling. 16:34 Neuro: Negative for headache, weakness, numbness, tingling, and seizure activity. Psych: Negative for depression, anxiety, suicide ideation, homicidal ideation, and hallucinations, Allergy/Immunology: Negative for hives, rash, and allergies, Endocrine: Negative for neck swelling, polydipsia, polyuria, polyphagia, and marked weight changes, Hematologic/Lymphatic: Negative for swollen nodes, abnormal bleeding, and unusual bruising. 16:34 Cardiovascular: Positive for edema. 16:34 MS/extremity: Positive for swelling, tenderness, warmth, Negative for injury or acute deformity, contusion, puncture. Exam: 14:21 ECG was reviewed by the Attending Physician. kdr 16:34 Constitutional: This is a well developed, well nourished patient who is awake, alert, kdr and in no acute distress. Head/Face: Normocephalic, atraumatic. Eyes: Pupils equal round and reactive to light, extra-ocular motions intact. Lids and lashes normal. Conjunctiva and sclera are non-icteric and not injected. Cornea within normal limits. Periorbital areas with no swelling, redness, or edema. Neck: Trachea midline, no thyromegaly or masses palpated, and no cervical lymphadenopathy. Supple, full range of motion without nuchal rigidity, or vertebral point tenderness. No Meningismus. Chest/axilla: Normal chest wall appearance and motion. Nontender with no deformity. No lesions are appreciated. Cardiovascular: Regular rate and rhythm with a normal S1 and S2. No gallops, murmurs, or rubs. Normal PMI, no JVD. No pulse deficits. Respiratory: Lungs have equal breath sounds bilaterally, clear to auscultation and percussion. No rales, rhonchi or wheezes noted. No increased work of breathing, no retractions or nasal flaring. Abdomen/GI: Soft, non-tender, with normal bowel sounds. No distension or tympany. No guarding or rebound. No evidence of tenderness throughout. Back: No spinal tenderness. No costovertebral tenderness. Full range of motion. Vital Signs: 12:09 Pulse 74; Resp 22; Temp 98.4(O); Pulse Ox 96% on R/A; Weight 84.32 kg (M); Height 5 ft. kg 7 in. (170.18 cm) (R); Pain 0/10; 12:09 BP 102 / 80; kg 13:59 BP 137 / 56; Pulse 68; Resp 18; Pulse Ox 98% on R/A; zb 14:27 BP 134 / 58; Pulse 61; Resp 17; Pulse Ox 96% on R/A; zb 16:01 BP 140 / 72; Pulse 77; Resp 18; Pulse Ox 94% on R/A; zb 16:48 BP 138 / 66; Pulse 74; Resp 18; Pulse Ox 96% on R/A; zb 12:09 Body Mass Index 29.12 (84.32 kg, 170.18 cm) kg MDM: 15:55 Patient medically screened. kdr 16:34 Data reviewed: vital signs, nurses notes, lab test result(s), radiologic studies. kdr Counseling: I had a detailed discussion with the patient and/or guardian regarding: the historical points, exam findings, and any diagnostic results supporting the discharge/admit diagnosis, lab results, radiology results, the need for further work-up and treatment in the hospital. Physician consultation: A Radha EASLEY regarding admission, consult, patient's condition, need to come to ED to see patient, and will see patient in inpatient room, tomorrow. 09/01 12:43 Order name: Basic Metabolic Panel; Complete Time: 13:33 tr6 09/01 12:43 Order name: CBC with Diff; Complete Time: 15:40 tr6 09/01 12:43 Order name: LFT's; Complete Time: 13:33 tr6 09/01 12:43 Order name: Magnesium; Complete Time: 13:33 tr6 09/01 12:43 Order name: NT PRO-BNP; Complete Time: 13:33 tr6 09/01 12:43 Order name: PT-INR; Complete Time: 13:33 tr6 09/01 12:43 Order name: Troponin (emerg Dept Use Only); Complete Time: 13:33 tr6 09/01 12:43 Order name: XRAY Chest (1 view); Complete Time: 15:40 tr6 09/01 12:43 Order name: EKG; Complete Time: 12:44 tr6 09/01 12:43 Order name: Cardiac monitoring; Complete Time: 12:50 tr6 09/01 12:43 Order name: EKG - Nurse/Tech; Complete Time: 12:50 tr6 09/01 12:43 Order name: IV Saline Lock; Complete Time: 12:43 tr6 09/01 13:47 Order name: CBC Smear Scan; Complete Time: 15:40 EDHI 09/01 12:43 Order name: Labs collected and sent; Complete Time: 12:43 tr6 09/01 12:43 Order name: O2 Per Protocol; Complete Time: 12:43 tr6 09/01 12:43 Order name: O2 Sat Monitoring; Complete Time: 12:43 tr6 EC:21 Rate is 52 beats/min. Rhythm is irregularly irregular, A fib with No ectopy. QRS Elsa kdr is Normal. MN interval is normal. Clinical impression: Atrial Fibrillation. Administered Medications: 15:59 Drug: Lasix (furosemide) 40 mg Route: IVP; Site: right forearm; zb 16:47 Follow up: Response: No adverse reaction; Marked relief of symptoms zb Disposition Summary: 09/01/20 15:55 Hospitalization Ordered Hospitalization Status: Inpatient Admission kdr Provider: Jas Garcia Location: Telemetry/MedSurg (Inpatient) kdr Condition: Fair kdr Problem: an ongoing problem kdr Symptoms: have improved kdr Bed/Room Type: Standard kdr Room Assignment: 216(09/01/20 16:27) sv Diagnosis - Edema, unspecified kdr - Localized edema kdr - Heart failure, unspecified kdr Forms: - Medication Reconciliation Form kdr - SBAR form kdr Signatures: Dispatcher [employer] Carissa Betancur RN RN sv Jordy Aragon MD MD kdr Alyson Bang RN RN zb Netta Orozco RN RN tr6 Erendira Landaverde RN RN kg Corrections: (The following items were deleted from the chart) 12:17 12:12 PMHx: Atrial Fib; kg kg 16:27 15:55 kdr sv
--- NOTE | 2020-09-01 15:56 | ER ---
Nurse's Notes [facility] Name: Chris Mcwilliams Age: 89 yrs Sex: Male : 1930 Arrival Date: 09/01/2020 Time: 11:42 Bed 18 Private MD: Diagnosis: Edema, unspecified;Localized edema;Heart failure, unspecified Presentation: 09/01 12:09 Chief complaint: Patient states: BLE swelling 4+ pitting edema, right leg weeping x kg several weeks. Coronavirus screen: Client denies travel out of the [place] in the last 14 days. At this time, unable to obtain information related to travel outside the [place] At this time, the client does not indicate any symptoms associated with coronavirus-19. Ebola Screen: Patient negative for fever greater than or equal to 101.5 degrees Fahrenheit, and additional compatible Ebola Virus Disease symptoms Patient denies exposure to infectious person. Patient denies travel to an Ebola-affected area in the 21 days before illness onset. Initial Sepsis Screen: Does the patient meet any 2 criteria? No. Patient's initial sepsis screen is negative. Does the patient have a suspected source of infection? No. Patient's initial sepsis screen is negative. Risk Assessment: Do you want to hurt yourself or someone else? Patient reports no desire to harm self or others. Onset of symptoms was August 11, 2020. 12:09 Method Of Arrival: Ambulatory kg 12:09 Acuity: BOB 3 kg Triage Assessment: 12:14 General: Appears in no apparent distress. Behavior is calm, cooperative, appropriate kg for age, quiet. Pain: Denies pain. Historical: - Home Meds: 12:41 Carafate 1 gram Oral tab 1 tab 4 times per day [Active]; Protonix 40 mg Oral TbEC 1 tab tr6 once daily [Active]; torsemide 20 mg Oral tab 1 tab once daily [Active]; tamsulosin 0.4 mg Oral cp24 1 cap once daily [Active]; metoprolol tartrate 25 mg Oral tab 1 tab 2 times per day [Active]; - PMHx: 12:12 incontent; CHF; Diabetes - IDDM; Myocardial infarction; Hypertension; Hyperlipidemia; kg 12:14 Diverticulitis; kg - PSHx: 12:14 heart valve replacement; Coronary artery bypass graft; kg - Immunization history:: Adult Immunizations not up to date, Client reports receiving the 2nd dose of the Covid vaccine. - Social history:: Smoking status: Patient denies any tobacco usage or history of. Screenin:17 Abuse screen: Denies threats or abuse. Denies injuries from another. Nutritional kg screening: No deficits noted. Tuberculosis screening: No symptoms or risk factors identified. Fall Risk None identified. No fall in past 12 months (0 pts). No secondary diagnosis (0 pts). No IV (0 pts). Ambulatory Aid- None/Bed Rest/Nurse Assist (0 pts). Gait- Normal/Bed Rest/Wheelchair (0 pts) Mental Status- Oriented to own ability (0 pts). Total Head Fall Scale indicates No Risk (0-24 pts). Assessment: 12:44 General: Appears uncomfortable, well groomed, Behavior is calm, cooperative, tr6 appropriate for age. Pain: Complains of pain in b/l lower extremeties. Neuro: No deficits noted. Cardiovascular: No deficits noted. Cardiovascular: Edema is 3+ to left midcalf, left ankle, left foot, left toes, right midcalf, right ankle, right foot and right toes pitting to left midcalf, left ankle, left foot, left toes, right midcalf, right ankle, right foot and right toes weeping edema on LLE. Respiratory: Reports cough that is Breath sounds are clear bilaterally. GI: No deficits noted. : No deficits noted. EENT: No deficits noted. Derm: Musculoskeletal: No deficits noted. 13:59 Reassessment: Patient appears in no apparent distress at this time. Patient and/or zb family updated on plan of care and expected duration. Pain level reassessed. patient remain in bed at this time. no c/o at this time. waiting results. 14:27 Reassessment: Patient appears in no apparent distress at this time. Patient and/or zb family updated on plan of care and expected duration. Pain level reassessed. Patient is alert, oriented x 3, equal unlabored respirations, skin warm/dry/pink. applied warm blanket to patient. patient waiting results. 15:00 Reassessment: Patient appears in no apparent distress at this time. Patient and/or zb family updated on plan of care and expected duration. Pain level reassessed. Patient is alert, oriented x 3, equal unlabored respirations, skin warm/dry/pink. 16:01 Reassessment: Patient appears in no apparent distress at this time. Patient and/or zb family updated on plan of care and expected duration. Pain level reassessed. Patient is alert, oriented x 3, equal unlabored respirations, skin warm/dry/pink. Vital Signs: 12:09 Pulse 74; Resp 22; Temp 98.4(O); Pulse Ox 96% on R/A; Weight 84.32 kg (M); Height 5 ft. kg 7 in. (170.18 cm) (R); Pain 0/10; 12:09 BP 102 / 80; kg 13:59 BP 137 / 56; Pulse 68; Resp 18; Pulse Ox 98% on R/A; zb 14:27 BP 134 / 58; Pulse 61; Resp 17; Pulse Ox 96% on R/A; zb 16:01 BP 140 / 72; Pulse 77; Resp 18; Pulse Ox 94% on R/A; zb 16:48 BP 138 / 66; Pulse 74; Resp 18; Pulse Ox 96% on R/A; zb 12:09 Body Mass Index 29.12 (84.32 kg, 170.18 cm) kg ED Course: 11:42 Patient arrived in ED. ds1 12:12 Triage completed. kg 12:14 Arm band placed on left wrist. kg 12:17 Patient has correct armband on for positive identification. kg 12:26 Jordy Aragon MD is Attending Physician. kdr 12:32 Alyson Bang, RN is Primary Nurse. zb 12:32 No provider procedures requiring assistance completed. tr6 12:43 Inserted saline lock: 18 gauge in right forearm, using aseptic technique. Blood tr6 collected. 13:04 Bed in low position. Call light in reach. Side rails up X2. Warm blanket given. Cardiac mh5 monitor on. Pulse ox on. NIBP on. 13:04 EKG done, by ED staff, reviewed by Jordy Aragon MD. 5 13:05 Basic Metabolic Panel Sent. 5 13:05 LFT's Sent. 5 13:05 Magnesium Sent. 5 13:05 NT PRO-BNP Sent. 5 13:05 Troponin (emerg Dept Use Only) Sent. mh5 13:05 Initial lab(s) drawn, by ED staff, sent to lab. [facility] 13:19 XRAY Chest (1 view) In Process Unspecified. EDMS 15:54 Jas Gracia MD is Hospitalizing Provider. kdr 16:58 Report given to SARAH Wiley. zb 16:58 Patient admitted, IV remains in place. zb Administered Medications: 15:59 Drug: Lasix (furosemide) 40 mg Route: IVP; Site: right forearm; zb 16:47 Follow up: Response: No adverse reaction; Marked relief of symptoms zb Output: 16:01 Urine: 100ml (Voided); Total: 100ml. zb Outcome: 15:55 Decision to Hospitalize by Provider. kdr 16:57 Admitted to Med/surg accompanied by tech, via wheelchair, room 216, with chart, Report zb called to SARAH Wiley 16:57 Condition: stable 16:57 Instructed on the need for admit, Demonstrated understanding of instructions. 17:28 Patient left the ED. sv Signatures: Dispatcher [employer] EDCarissa Jain, SARAH RN Jordy Bowles MD MD [facility] Nichol Escobar dsLubna Floyd Alyson Dupont RN RN zb Ramnanan, Tiffany, RN RN tr6 Erendira Landaverde RN RN kg Corrections: (The following items were deleted from the chart) 12:17 12:12 PMHx: Atrial Fib; kg kg
[2020-09-01] MEDS ORDERED: FUROSEMIDE 40 MG/4 ML VIAL ONE (16:17)
[2020-09-01] MEDS ORDERED: ACETAMINOPHEN 500 MG TAB PO PRN (16:59)
[2020-09-01] MEDS ORDERED: ONDANSETRON 4 MG/2 ML VIAL IV PRN (16:59)
[2020-09-01 18:12] VITALS: BMI 29.0
[2020-09-01] MEDS: FUROSEMIDE 40 MG/4 ML VIAL IV SCH (19:13)
[2020-09-01] MEDS: SUCRALFATE 1 GM TABLET PO SCH (20:50)
[2020-09-01] MEDS: METOPROLOL TAR 25 MG TAB PO SCH (20:50)
[2020-09-02 06:46] LABS: Absolute Lymphocytes (CBC) 0.8 K/uL (0.7-4.9); Basophils % 1.5 % (0-1.3); Hematocrit 32.4 % (39.6-49.0); Lymphocytes % 22.9 % (15.3-44.8); MPV 9.3 fL (7.6-11.3)
[2020-09-02 07:37] LABS: BUN Blood Urea Nitrogen 36 mg/dL (7-18); Bicarbonate 30 mmol/L (21-32); Folic Acid, (Folate) > 20.0 ng/mL (3.1-17.5); Glucose Level 90 mg/dL (74-106); Magnesium 2.2 mg/dL (1.8-2.4); Potassium 4.8 mmol/L (3.5-5.1); Sodium Level 138 mmol/L (136-145)
[2020-09-02] MEDS: TAMSULOSIN 0.4 MG SR CAP PO SCH (08:36)
[2020-09-02] MEDS: METOPROLOL TAR 25 MG TAB PO SCH ×2 (08:36→20:25)
[2020-09-02] MEDS: FUROSEMIDE 40 MG/4 ML VIAL IV SCH ×2 (08:36→16:20)
[2020-09-02] MEDS: ASPIRIN EC 81 MG TAB PO SCH (08:36)
[2020-09-02] MEDS: SPIRONOLACTONE 25 MG TABLET PO SCH (08:36)
[2020-09-02] MEDS: SUCRALFATE 1 GM TABLET PO SCH ×2 (08:36→20:25)
--- NOTE | 2020-09-02 12:04 | HP ---
Date of Admission: 09/02/2020 Chief Complaint: Leg swelling and shortness of breath. History Of Present Illness: This is an 89-year-old male patient who came into emergency room with complaints of increasing leg swelling problem, shortness of breath with activity. Denies any fever, chills, nausea, vomiting. No chest pain. After he was evaluated in the ER, he was admitted to the hospital. The patient also has started to notice some clear liquid coming out of his lower leg skin. The patient was started on IV Lasix and he has diuresed very well overnight with IV Lasix. Allergies: LEVAQUIN CAUSING RASH. Medications: Ferrous sulfate 325 mg daily, folic acid 0.8 mg daily, metoprolol tartrate 25 mg 2 times a day, Nitrostat p.r.n., pantoprazole 40 mg daily, spironolactone 25 mg daily, sucralfate 1 g four times a day, tamsulosin 0.4 mg daily, torsemide 20 mg 2 times a day, vitamin B12 1 mg daily. Review of Systems: Cardiovascular: As mentioned above. All other systems reviewed and negative. 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 Past Surgical History: Coronary artery stent placement and coronary artery bypass surgery in the past, had aortic wall replacement surgery in August 2017 for aortic wall stenosis and had cholecystectomy in the past. Family History: Father had stroke. Brother had Alzheimer disease. Sister had lung cancer. Social History: Prior history of smoking not at present time. Use of alcohol. Physical Examination: Vital Signs: Temperature 98.2, pulse 54, respiratory rate 16, blood pressure 137/65, oxygen saturation 97%. Height 5 feet 7 inches, weight 174 pounds. General: Awake, alert, oriented, not in distress. HEENT: Head atraumatic, normocephalic. Conjunctivae nonerythematous. Sclerae white. Mouth, no thrush or edema noted. Ears/Nose, no mass, lesion, discharge noted. Neck: Supple. No JVD, lymph nodes, bruit, thyromegaly noted. Lungs: Bilateral basal rales. Heart: Normal heart sounds, no murmur or gallop. Abdomen: Soft, bowel sounds normal. No guarding, rigidity, tenderness, mass, hepatosplenomegaly, distention, or bruit noted. Extremities: Grade 3 pedal edema involving both lower extremity extending all the way to upper thigh and right lower medial thigh around the old surgical scar has probably 2 cm area of pink warm skin. No open wound. We will monitor that. Skin: No rash, ulcer, cellulitis. Lymphatics: No lymph node enlargement in neck, supraclavicular, infraclavicular region. Neuro: No focal neurological deficit. Chest: Unremarkable. External Genitalia: Deferred. Rectal: Deferred. Laboratory Data: Yesterday white count 3.9, hemoglobin 10.5, platelets 95. Today, white count 3.6, hemoglobin 11, platelets 85. INR 1.26. Yesterday, sodium 137, potassium 4.6, chloride 107, bicarb 25, BUN 37, creatinine 1.47, glucose 117, total bilirubin 2.2, direct bilirubin 0.8, AST 23, ALT 15, alkaline phosphatase 101. Troponin 0.02 x3. ProBNP 54036. Today, sodium 138, potassium 4.8, chloride 105, bicarb 30, BUN 36, creatinine 1.45, glucose 90, magnesium 2.2. Vitamin B12 1724. Folic acid more than 20. TSH 7.43, free T4 1.1. Chest x-ray shows mild CHF pattern. Impression: 1. Congestive heart failure, chronic, diastolic, with acute exacerbation. 2. Pancytopenia. 3. Chronic kidney disease, stage 3A. 4. Hypertension. 5. Diabetes mellitus, type 2. 6. Hyperlipidemia. 7. Coronary artery disease. 8. Carotid artery stenosis, bilateral. 9. Gastroesophageal reflux disease. 10. 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 11. Diverticulosis. 12. Benign prostatic hypertrophy. Plan: Admit the patient to hospital for further evaluation of this problem. The patient is appropriate for inpatient and is expected to spend 2 midnights in hospital. Home medications per order. Give IV Lasix. Monitor intake output, daily weight and we will monitor electrolytes and renal function. Tomorrow, we will get echo with Doppler and details and plan of treatment discussed with the patient. I will see him tomorrow for followup. APOORVA/MODL Voice ID: [id number] MTDD
--- NOTE | 2020-09-02 13:47 | EKG ---
Test Date: 2020-09-01 Test Time: 12:58:47 Survey Research Analyst: QI MEASUREMENT RESULTS: Intervals: Rate: 52 UT: QRSD: 146 QT: 486 QTc: 451 [place]: P: UT: QRS: -87 T: 48 INTERPRETIVE STATEMENTS: Atrial fibrillation with slow ventricular response Left axis deviation Right bundle branch block Inferior infarct, age undetermined Abnormal ECG Compared to ECG 01/17/2020 18:19:55 Left ventricular hypertrophy no longer present Myocardial infarct finding still present Electronically Signed On 09-02-20 13:45:42 CDT by Guy Barnett
[2020-09-03] MEDS: METOPROLOL TAR 25 MG TAB PO SCH ×2 (07:49→20:16)
[2020-09-03] MEDS: ASPIRIN EC 81 MG TAB PO SCH (07:49)
[2020-09-03] MEDS: SUCRALFATE 1 GM TABLET PO SCH ×2 (07:50→20:16)
[2020-09-03] MEDS: TAMSULOSIN 0.4 MG SR CAP PO SCH (07:50)
[2020-09-03] MEDS: SPIRONOLACTONE 25 MG TABLET PO SCH (07:50)
[2020-09-03] MEDS: FUROSEMIDE 40 MG/4 ML VIAL IV SCH ×2 (07:50→16:03)
--- NOTE | 2020-09-03 11:46 | PN ---
Date of Progress Note: 09/03/2020 Subjective: The patient was seen this morning for followup. No new complaints or problems reported. He was sitting in the chair, feeling much better. Denies any shortness of breath at nighttime or c hest pain. He is diuresing very well and has lost almost 20 pounds since the time of admission. His weight today is 165 pounds. Objective: Vital Signs: Reviewed. HEENT: Unremarkable. Lungs: Clear to auscultation. No rales. Heart: Sounds normal. Abdomen: Soft. Bowel sounds normal. No guarding, rigidity, tenderness, or distention. Extremities: Bilateral grade 2 to grade 3 pedal edema involving lower half of the legs. It is signi ficantly better than before. Right lower medial thigh area of redness about 2 cm area of pink, warm skin has remained unchanged. Impression: 1.Congestive heart failure, chronic, diastolic, with acute exacerbation. 2.Cellulitis, right leg. 3.Anemia. 4.Thrombocytopenia. Plan: We will go ahead and continue current IV diuretic therapy. We will repeat blood work tomorrow morning. We will start the patient on oral antibiotic for the small area of cellulitis involving ri ght lower medial thigh. I will see him tomorrow for followup. Echocardiogram will be done probably tomorrow and possibly discharge him to go home tomorrow. Details and plan of t reatment discussed with the patient. APOORVA/MODL Voice ID: [id number] Report ID: [id number]
[2020-09-03] MEDS: AMOX/K CLAV 500 MG TAB PO SCH (20:16)
[2020-09-04 06:14] LABS: Absolute Lymphocytes (CBC) 0.9 K/uL (0.7-4.9); Basophils % 1.3 % (0-1.3); Hematocrit 28.8 % (39.6-49.0); Lymphocytes % 24.5 % (15.3-44.8); MPV 8.9 fL (7.6-11.3)
[2020-09-04 06:25] LABS: Magnesium 1.9 mg/dL (1.8-2.4); Potassium 4.1 mmol/L (3.5-5.1)
[2020-09-04] MEDS: SPIRONOLACTONE 25 MG TABLET PO SCH (09:56)
[2020-09-04] MEDS: TAMSULOSIN 0.4 MG SR CAP PO SCH (09:56)
[2020-09-04] MEDS: ASPIRIN EC 81 MG TAB PO SCH (09:56)
[2020-09-04] MEDS: METOPROLOL TAR 25 MG TAB PO SCH (09:56)
[2020-09-04] MEDS: SUCRALFATE 1 GM TABLET PO SCH (09:57)
[2020-09-04] MEDS: FUROSEMIDE 40 MG/4 ML VIAL IV SCH (09:57)
[2020-09-04] MEDS: AMOX/K CLAV 500 MG TAB PO SCH (09:57)
[2020-09-04 12:45] VITALS: BP 143/67; TEMP 97.6
[2020-09-04 13:23] VITALS: O2SAT 95
--- NOTE | 2020-09-04 23:17 | DS ---
Date of Discharge: 09/04/2020 Disposition: Discharged to go home. Physical Examination: HEENT: Unremarkable. Lungs: Clear to auscultation. Heart: Sounds normal. Abdomen: Soft. Bowel sounds normal. No guarding, rigidity, tenderness, or distention. Extremities: Bilateral grade 1 edema involving the lower half of both legs, which is significantly better compared to time of admission. Skin: Area of cellulitis from right lower medial thigh has improved by approximately 40% to 50% compared to day before yesterday. Discharge Medications And Instructions: 1. Continue all prior home medication except stop torsemide and start furosemide 80 mg by mouth 2 times a day and take Augmentin 500 mg 2 times a day for 1 week. 2. Follow up at my office on September 11, 2020, at 10 a.m. Laboratory Data: Labs done during this hospitalization upon admission, white count 3.9, hemoglobin 10.5, platelets 95, and today white count 3.6, hemoglobin 10.2, and platelet 81. Upon admission, sodium 137, potassium 4, chloride 107, bicarb 25, BUN 37, creatinine 1.47, glucose 117, total bilirubin 2.2. Rest of the liver function tests unremarkable. Troponin 0.02 x3. ProBNP 11,811. Today's chemistry, sodium 139, potassium 4.1, chloride 101, bicarb 33, BUN 34, creatinine 1.44, glucose 88, vitamin B12 of 1724, folic acid more than 20, TSH 7.43. Hospital Course: An 89-year-old, worsening of leg swelling with some clear fluid coming out of his lower extremity. He also had some associated shortness of breath. Please see dictated H and P for more information. After patient was evaluated in the ER, he was admitted to the hospital, and he was treated for this acute exacerbation of his chronic diastolic congestive heart failure. Echocardiogram was done. Result pending. We will follow up on outpatient basis. Patient was started on IV diuretic therapy. Lasix 40 mg IV every 12 hours was given, and he diuresed very well with this, and his admission weight was 185 pounds, and last weight today was 163 pounds. His shortness of breath problem has resolved. Leg swelling has significantly improved, and he feels a lot better. He had a small area of cellulitis involving right lower medial thigh, approximately 2-3 cm in size, and oral antibiotic Augmentin was started during this hospital, and he has responded very well. The patient's condition overall has improved, and he was discharged to go home in stable condition with above-mentioned medication and instruction. Patient has 2 daughters, 1 lives in [place], other one lives in [place], and daughter from [place] called my office today, wanted to get some updates. I did return her phone call and give her updates on all this information. Discharge Diagnoses: 1. Congestive heart failure, chronic, diastolic, with acute exacerbation. 2. Cellulitis, right lower extremity. 3. Chronic kidney disease, stage 3A. 4. Type 2 diabetes mellitus. 5. Hyperlipidemia. 6. Coronary artery disease. 7. Carotid artery stenosis, bilateral. 8. Gastroesophageal reflux disease. 9. 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 10. Diverticulosis. 11. Benign prostatic hypertrophy. APOORVA/MODL Voice ID: [id number] Report ID: [id number] STEFFANY
--- NOTE | 2020-09-04 23:30 | DS ---
Date of Discharge: 09/04/2020 APOORVA/MODL Voice ID: [id number] Report ID: [id number] MTDD
--- NOTE | 2020-09-05 08:30 | ECHO ---
HEIGHT: 5 ft 7 in WEIGHT: 163 lb 8 oz DATE OF STUDY: 09/04/[address]: Tha Garcia MD 2-DIMENSIONAL: YES M.MODE: YES DOPPLER: YES COLOR FLOW: YES TDS: NO PORTABLE: NO DEFINITY: NO BUBBLE STUDY: NO DIAGNOSIS: CONGESTIVE HEART FAILURE CARDIAC HISTORY: CATHERIZATION: NO SURGERY: YES PROSTHETIC VALVE: YES PACEMAKER: NO MEASUREMENTS (cm) DIASTOLIC (NORMALS) SYSTOLIC (NORMALS) IVSd 1.1 (0.6-1.2) LA Diam 5.4 (1.9-4.0) LVEF 68% LVIDd 5.0 (3.5-5.7) LVIDs 3.1 (2.0-3.5) %FS 38% LVPWd 1.1 (0.6-1.2) Ao Diam 2.2 (2.0-3.7) 2 DIMENSIONAL ASSESSMENT: RIGHT ATRIUM: NORMAL LEFT ATRIUM: DILATED RIGHT VENTRICLE: NORMAL LEFT VENTRICLE: NORMAL TRICUSPID VALVE: NORMAL MITRAL VALVE: MITRAL STENOSIS PULMONIC VALVE: NORMAL AORTIC VALVE: AORTIC STENOSIS PERICARDIAL EFFUSION: NONE AORTIC ROOT: NORMAL LEFT VENTRICULAR WALL MOTION: NORMAL. DOPPLER/COLOR FLOW: MILD TRICUSPID REGURGITATION - RIGHT VENTRICULAR SYSTOLIC PRESSURE 48mmHg. AORTIC STENOSIS - 2.0 CENTIMETERS SQUARED - MILD. MITRAL STENOSIS 2.0 CENTIMETERS SQUARED - MILD. COMMENTS: MILD AORTIC STENOSIS. MILD MITRAL STENOSIS. MILD TRICUSPID REGURGITATION - MODERATE PULMONARY HYPERTENSION. LEFT ATRIAL ENLARGEMENT. NORMAL EJECTION FRACTION. TECHNOLOGIST: SONALI SPAIN
== END 2020-09-04 13:39 | disposition home or self-care (01) | DRG 291 ==
LOC: ER 11:38 → ERHOLD 16:25 → 2ND 16:58
PROVIDERS: ADMIT Internal Medicine; ATTEND Internal Medicine
DX: I13.0 Hypertensive heart and chronic kidney disease with heart failure and stage 1 through stage 4 chronic kidney disease, or unspecified chronic kidney disease (principal); I50.33 Acute on chronic diastolic (congestive) heart failure; L03.115 Cellulitis of right lower limb; D61.818 Other pancytopenia; N18.31 Chronic kidney disease, stage 3a; E11.22 Type 2 diabetes mellitus with diabetic chronic kidney disease; D64.9 Anemia, unspecified; D69.6 Thrombocytopenia, unspecified; E78.5 Hyperlipidemia, unspecified; I25.10 Atherosclerotic heart disease of native coronary artery without angina pectoris; I65.23 Occlusion and stenosis of bilateral carotid arteries; K21.9 Gastro-esophageal reflux disease without esophagitis; K74.60 Unspecified cirrhosis of liver; K57.90 Diverticulosis of intestine, part unspecified, without perforation or abscess without bleeding; N40.0 Benign prostatic hyperplasia without lower urinary tract symptoms; Z95.5 Presence of coronary angioplasty implant and graft; Z95.1 Presence of aortocoronary bypass graft
CPT/HCPCS: 36415; 71045; 80048; 80076; 82607; 82746; 83735; 83880; 84439; 84443; 84484; 85025; 85610; 93005; 93306; 96374; 97116; 97161; 97530; 99285; J1940

== ENCOUNTER 2020-12-05 13:34 | Inpatient (IN) | payer MEDICARE, BC ==
[2020-12-05 14:48] LABS: Absolute Lymphocytes (CBC) 0.7 K/uL (0.7-4.9); Hematocrit 34.9 % (39.6-49.0); Lymphocytes % 18.5 % (15.3-44.8); MPV 9.8 fL (7.6-11.3); RBC Red Blood Cell Count 3.32 M/uL (4.33-5.43)
[2020-12-05 14:55] LABS: Bilirubin Total 2.6 mg/dL (0.2-1.0); Magnesium 2.3 mg/dL (1.8-2.4); Potassium 4.9 mmol/L (3.5-5.1); Protein, Total 7.6 g/dL (6.4-8.2); Protime INR 1.25; Troponin (Emerg Dept Use Only) 0.02 ng/mL (0.0-0.045)
--- NOTE | 2020-12-05 15:05 | RAD REPORT ---
EXAM DESCRIPTION: RAD - Chest Single View - 12/05/2020 2:46 pm CLINICAL HISTORY: CHF Chest pain. COMPARISON: Chest Single View dated 09/01/2020; Chest Single View dated 01/17/2020; Chest Single View dated 09/27/2018; Chest Pa And Lat (2 Views) dated 09/26/2018 FINDINGS: Portable technique limits examination quality. The lungs are grossly clear. The heart is moderately enlarged with sternotomy wires present. No displ aced fractures.Aortic atherosclerosis. IMPRESSION: Moderate cardiomegaly.
[2020-12-05 15:36] LABS: Blood Morphology Comment NOT SEEN (NOT SEEN); Platelet Estimate DECR; White Blood Cell Scan OK (OK)
[2020-12-05] MEDS ORDERED: FUROSEMIDE 100 MG/10 ML VIAL IV ONE (17:30)
--- NOTE | 2020-12-05 18:58 | EDPHYS ---
Physician Documentation [facility] Name: Chris Mcwilliams Age: 89 yrs Sex: Male : 1930 Arrival Date: 12/05/2020 Time: 13:37 Bed 19 Private MD: Jas Garcia C ED Physician Doug Barksdale HPI: 12/05 17:51 This 89 yrs old Male presents to ER via Ambulatory with complaints of Leg dewayne Swelling - weeping. Historical: - Allergies: 14:02 NKDA; jl7 - Home Meds: 14:02 Lasix 80 mg Oral tab 1 tab 2 times per day [Active]; metoprolol tartrate 25 mg Oral tab jl7 1 tab 2 times per day [Active]; Protonix 40 mg Oral TbEC 1 tab once daily [Active]; tamsulosin 0.4 mg Oral cp24 1 cap once daily [Active]; spironolactone 25 mg Oral tab 1 tab once daily [Active]; Carafate 1 gram Oral tab 1 tab 4 times per day [Active]; - PMHx: 14:02 bowel obstruction; CHF; Diabetes - IDDM; Diverticulitis; Hyperlipidemia; Hypertension; jl7 incontent; Myocardial infarction; 14:08 Atrial fibrillation; jl7 - PSHx: 14:02 Coronary artery bypass graft; heart valve replacement; jl7 - Immunization history:: Client reports receiving the 2nd dose of the Covid vaccine, Moderna. - Social history:: Smoking status: Patient denies any tobacco usage or history of. ROS: 18:04 Constitutional: Negative for fever, chills, and weight loss, Eyes: Negative for injury, dewayne pain, redness, and discharge, ENT: Negative for injury, pain, and discharge, Neck: Negative for injury, pain, and swelling, Cardiovascular: Negative for chest pain, palpitations, and edema, Respiratory: Negative for shortness of breath, cough, wheezing, and pleuritic chest pain, Abdomen/GI: Negative for abdominal pain, nausea, vomiting, diarrhea, and constipation, Back: Negative for injury and pain, : Negative for injury, bleeding, discharge, and swelling, Skin: Negative for injury, rash, and discoloration, Neuro: Negative for headache, weakness, numbness, tingling, and seizure, Psych: Negative for depression, anxiety, suicide ideation, homicidal ideation, and hallucinations, Allergy/Immunology: Negative for hives, rash, and allergies, Endocrine: Negative for neck swelling, polydipsia, polyuria, polyphagia, and marked weight changes, Hematologic/Lymphatic: Negative for swollen nodes, abnormal bleeding, and unusual bruising. 18:04 MS/extremity: Positive for decreased range of motion, pain, swelling, tenderness, of the right leg and left leg. Exam: 18:04 Constitutional: This is a well developed, well nourished patient who is awake, alert, dewayne and in no acute distress. Head/Face: Normocephalic, atraumatic. Eyes: Pupils equal round and reactive to light, extra-ocular motions intact. Lids and lashes normal. Conjunctiva and sclera are non-icteric and not injected. Cornea within normal limits. Periorbital areas with no swelling, redness, or edema. ENT: Nares patent. No nasal discharge, no septal abnormalities noted. Tympanic membranes are normal and external auditory canals are clear. Oropharynx with no redness, swelling, or masses, exudates, or evidence of obstruction, uvula midline. Mucous membranes moist. Neck: Trachea midline, no thyromegaly or masses palpated, and no cervical lymphadenopathy. Supple, full range of motion without nuchal rigidity, or vertebral point tenderness. No Meningismus. Chest/axilla: Normal chest wall appearance and motion. Nontender with no deformity. No lesions are appreciated. Cardiovascular: Regular rate and rhythm with a normal S1 and S2. No gallops, murmurs, or rubs. Normal PMI, no JVD. No pulse deficits. Respiratory: Lungs have equal breath sounds bilaterally, clear to auscultation and percussion. No rales, rhonchi or wheezes noted. No increased work of breathing, no retractions or nasal flaring. Abdomen/GI: Soft, non-tender, with normal bowel sounds. No distension or tympany. No guarding or rebound. No evidence of tenderness throughout. Back: No spinal tenderness. No costovertebral tenderness. Full range of motion. Male : Normal genitalia with no discharge or lesions. Skin: Warm, dry with normal turgor. Normal color with no rashes, no lesions, and no evidence of cellulitis. Neuro: Awake and alert, GCS 15, oriented to person, place, time, and situation. Cranial nerves II-XII grossly intact. Motor strength 5/5 in all extremities. Sensory grossly intact. Cerebellar exam normal. Normal gait. Psych: Awake, alert, with orientation to person, place and time. Behavior, mood, and affect are within normal limits. 18:04 Musculoskeletal/extremity: ROM: full active range of motion, full passive range of motion, Circulation is intact in all extremities. Sensation intact. Compartment Syndrome exam of affected extremity: is normal. DVT Exam: no pain, negative Homans' sign noted on exam, no appreciated bluish discoloration, no increased warmth, pain, swelling, tenderness, erythema, that is mild, of the right leg and left leg. 18:09 ECG was reviewed by the Attending Physician. [facility] Vital Signs: 14:00 BP 124 / 55; Pulse 80; Resp 22; Temp 98.3; Pulse Ox 99% ; Weight 73.48 kg; Height 5 ft. jl7 7 in. (170.18 cm); Pain 0/10; 16:12 BP 131 / 65; Pulse 76; Pulse Ox 98% on R/A; ap3 17:46 BP 141 / 64; Pulse 57; Pulse Ox 95% on R/A; ap3 18:46 BP 143 / 78; Pulse 82; Pulse Ox 98% on R/A; ap3 14:00 Body Mass Index 25.37 (73.48 kg, 170.18 cm) 7 MDM: 16:51 Patient medically screened. dewayne 18:06 Differential diagnosis: contusion. Data reviewed: vital signs, nurses notes, lab test [facility] result(s), EKG, radiologic studies, CT scan, plain films. Data interpreted: radiation monitor: rate is 57 beats/min, rhythm is atrial fibrillation, Pulse oximetry: on room air is 95 %. Test interpretation: by ED physician or midlevel provider: ECG, plain radiologic studies. Counseling: I had a detailed discussion with the patient and/or guardian regarding: the historical points, exam findings, and any diagnostic results supporting the discharge/admit diagnosis, lab results, radiology results. 12/05 14:13 Order name: Basic Metabolic Panel; Complete Time: 16:51 [facility] 12/05 14:13 Order name: CBC with Diff; Complete Time: 16:51 [facility] 12/05 14:13 Order name: LFT's; Complete Time: 16:51 [facility] 12/05 14:13 Order name: Magnesium; Complete Time: 16:51 [facility] 12/05 14:13 Order name: NT PRO-BNP; Complete Time: 16:51 [facility] 12/05 14:13 Order name: PT-INR; Complete Time: 16:51 [facility] 12/05 14:13 Order name: Troponin (emerg Dept Use Only); Complete Time: 16:51 [facility] 12/05 14:13 Order name: XRAY Chest (1 view); Complete Time: 16:51 [facility] 12/05 14:14 Order name: COVID-19 : Document "Date of Symptom Onset" if Symptomatic. [facility] 12/05 15:17 Order name: SARS-COV-2 RT PCR; Complete Time: 17:37 EDMS 12/05 15:36 Order name: CBC Smear Scan; Complete Time: 16:51 EDGA 12/05 17:50 Order name: US Extremity Venous W Compression [facility] 12/05 17:50 Order name: US Rp Exam Complete [facility] 12/05 14:13 Order name: EKG; Complete Time: 14:13 [facility] 12/05 14:13 Order name: EKG - Nurse/Tech; Complete Time: 14:13 [facility] 12/05 14:13 Order name: IV Saline Lock; Complete Time: 14:13 [facility] 12/05 14:13 Order name: Labs collected and sent; Complete Time: 14:13 [facility] 12/05 14:13 Order name: O2 Per Protocol; Complete Time: 14:13 [facility] 12/05 14:13 Order name: O2 Sat Monitoring; Complete Time: 14:13 EC:09 Rate is 62 beats/min. Rhythm is irregularly irregular. QRS [place] is Normal. TN interval dewayne is normal. QRS interval is normal. QT interval is normal. No Q waves. T waves are Normal. No ST changes noted. Clinical impression: Abnormal EKG without significant change, LVH, and No evidence of ischemia. Interpreted by me. Reviewed by me. Administered Medications: 17:13 Drug: Lasix (furosemide) 60 mg Route: IVP; Site: right antecubital; ap3 17:48 Follow up: Response: No adverse reaction ap3 Disposition Summary: 12/05/20 18:58 Hospitalization Ordered Hospitalization Status: Inpatient Admission dewayne Provider: Jas Garcia cha Location: Telemetry/MedSurg (Inpatient)(12/05/20 18:58) dewayne Condition: Stable(12/05/20 18:58) dewayne Problem: new(12/05/20 18:58) dewayne Symptoms: have improved(12/05/20 18:58) dewayne Bed/Room Type: Standard dewayne Room Assignment: 203(12/05/20 21:42) rd1 Diagnosis - Generalized edema(12/05/20 18:58) dewayne - Edema, unspecified(12/05/20 18:58) dewayne - Cardiomegaly dewayne - Type 1 diabetes mellitus with hyperglycemia(12/05/20 18:58) dewayne - Acute kidney failure, unspecified - acute on chronic(12/05/20 18:58) dewayne - Chronic atrial fibrillation(12/05/20 18:58) dewayne - Obesity, unspecified dewayne Forms: - Medication Reconciliation Form dewayne - SBAR form dewayne Signatures: Dispatcher [employer] EDMS Doug Barksdale MD MD cha Leal, Jahala, RN RN jl7 Kyra Pulido RN RN ap3 Leana Daigle, RN RN rd1 Corrections: (The following items were deleted from the chart) 15:17 14:15 CORONAVIRUS ordered. EDMS EDMS 18:55 18:55 Home dewayne dewayne 18:55 18:55 new dewayne dewayne 18:55 18:55 have improved dewayne dewayne 18:55 18:55 Stable dewayne dewayne 18:55 18:55 Edema, unspecified dewayne dewayne 18:55 18:55 Generalized edema dewayne dewayne 18:55 18:55 Chronic atrial fibrillation dewayne dewayne 18:55 18:55 Acute kidney failure, unspecified - On Chronic dewayne dewayne 18:55 18:55 Type 1 diabetes mellitus with hyperglycemia dewayne dewayne 21:42 18:[address]
--- NOTE | 2020-12-05 18:58 | ER ---
Nurse's Notes [facility] Name: Chris Mcwilliams Age: 89 yrs Sex: Male : 1930 Arrival Date: 12/05/2020 Time: 13:37 Bed 19 Private MD: Jas Garcia C Diagnosis: Generalized edema;Edema, unspecified;Cardiomegaly;Type 1 diabetes mellitus with hyperglycemia;Acute kidney failure, unspecified-acute on chronic;Chronic atrial fibrillation;Obesity, unspecified Presentation: 12/05 14:00 Chief complaint: Patient states: Edema to bilateral lower extremities, weeping from jl7 right leg, denies SOB. denies pain. Coronavirus screen: Vaccine status: Patient reports receiving the 2nd dose of the covid vaccine. Moderna. Ebola Screen: No symptoms or risks identified at this time. Initial Sepsis Screen: Does the patient meet any 2 criteria? No. Patient's initial sepsis screen is negative. Does the patient have a suspected source of infection? No. Patient's initial sepsis screen is negative. Risk Assessment: Do you want to hurt yourself or someone else? Patient reports no desire to harm self or others. Onset of symptoms is unknown. Care prior to arrival: None. 14:00 Method Of Arrival: Ambulatory jl7 14:00 Acuity: BOB 3 jl7 Triage Assessment: 14:02 General: Appears in no apparent distress. uncomfortable, Behavior is calm, cooperative, jl7 appropriate for age. Pain: Denies pain. Cardiovascular: Denies chest pain, Patient's skin is warm and dry. Edema pitting to left midcalf and right midcalf. Derm: Skin is pink, warm \T\ dry. Historical: - Allergies: 14:02 NKDA; jl7 - Home Meds: 14:02 Lasix 80 mg Oral tab 1 tab 2 times per day [Active]; metoprolol tartrate 25 mg Oral tab jl7 1 tab 2 times per day [Active]; Protonix 40 mg Oral TbEC 1 tab once daily [Active]; tamsulosin 0.4 mg Oral cp24 1 cap once daily [Active]; spironolactone 25 mg Oral tab 1 tab once daily [Active]; Carafate 1 gram Oral tab 1 tab 4 times per day [Active]; - PMHx: 14:02 bowel obstruction; CHF; Diabetes - IDDM; Diverticulitis; Hyperlipidemia; Hypertension; jl7 incontent; Myocardial infarction; 14:08 Atrial fibrillation; jl7 - PSHx: 14:02 Coronary artery bypass graft; heart valve replacement; jl7 - Immunization history:: Client reports receiving the 2nd dose of the Covid vaccine, Moderna. - Social history:: Smoking status: Patient denies any tobacco usage or history of. Screenin:15 Abuse screen: Denies threats or abuse. Denies injuries from another. Nutritional jl7 screening: No deficits noted. Tuberculosis screening: No symptoms or risk factors identified. Fall Risk IV access (20 points). Total Head Fall Scale indicates No Risk (0-24 pts). Assessment: 16:11 General: Appears in no apparent distress. uncomfortable, Behavior is calm, cooperative, ap3 appropriate for age. Pain: Denies pain. Neuro: Level of Consciousness is awake, alert, obeys commands, Oriented to person, place, time, situation, Appropriate for age Moves all extremities. Gait is steady, Speech is normal, Facial symmetry appears normal. Cardiovascular: Denies chest pain, shortness of breath, Patient's skin is warm and dry. Respiratory: Airway is patent Respiratory effort is even, unlabored, Respiratory pattern is regular, symmetrical. GI: No signs and/or symptoms were reported involving the gastrointestinal system. : No signs and/or symptoms were reported regarding the genitourinary system. Musculoskeletal: Swelling present in right midcalf and left midcalf. 17:47 Reassessment: Patient and/or family updated on plan of care and expected duration. Pain ap3 level reassessed. Patient is alert, oriented x 3, equal unlabored respirations, skin warm/dry/pink. 18:47 Reassessment: Patient and/or family updated on plan of care and expected duration. Pain ap3 level reassessed. Patient is alert, oriented x 3, equal unlabored respirations, skin warm/dry/pink. Vital Signs: 14:00 BP 124 / 55; Pulse 80; Resp 22; Temp 98.3; Pulse Ox 99% ; Weight 73.48 kg; Height 5 ft. jl7 7 in. (170.18 cm); Pain 0/10; 16:12 BP 131 / 65; Pulse 76; Pulse Ox 98% on R/A; ap3 17:46 BP 141 / 64; Pulse 57; Pulse Ox 95% on R/A; ap3 18:46 BP 143 / 78; Pulse 82; Pulse Ox 98% on R/A; ap3 14:00 Body Mass Index 25.37 (73.48 kg, 170.18 cm) 7 ED Course: 13:37 Patient arrived in ED. am2 13:37 Jas Garcia MD is Private Physician. am2 14:02 Triage completed. jl7 14:02 Arm band placed on right wrist. EKG completed in triage. Results shown to MD. jl7 14:15 Patient has correct armband on for positive identification. jl7 14:15 Initial lab(s) drawn, by ED staff, sent to lab. Inserted saline lock: 20 gauge in right jl7 antecubital area, using aseptic technique. Blood collected. 14:46 XRAY Chest (1 view) In Process Unspecified. EDMS 16:05 Kyra Pulido, RN is Primary Nurse. ap3 16:51 Doug Barksdale MD is Attending Physician. dewayne 18:47 ultrasound at bedside. ap3 18:55 Jas Garcia MD is Referral Physician. dewayne 18:55 Jas Garcia MD is Hospitalizing Provider. dewayne 19:06 US Extremity Venous W Compression Wayne In Process Unspecified. EDMS 19:06 US Rp Exam Complete In Process Unspecified. EDMS Administered Medications: 17:13 Drug: Lasix (furosemide) 60 mg Route: IVP; Site: right antecubital; ap3 17:48 Follow up: Response: No adverse reaction ap3 Outcome: 18:55 Discharge ordered by MD. dewayne 18:58 Decision to Hospitalize by Provider. dewayne 22:39 Patient left the ED. sj1 Signatures: Dispatcher [employer] EDMS Doug Barksdale MD MD cha Leal, Jahala RN RN jl7 Kyra Strauss am2 Kyra Pulido RN RN ap3 Keysha Palumbo RN RN sj1
--- NOTE | 2020-12-05 19:19 | RAD REPORT ---
EXAM DESCRIPTION: US - Extrem Venous W Compress Wayne - 12/05/2020 7:06 pm CLINICAL HISTORY: Pain;Swelling Bilateral leg edema and swelling. COMPARISON: Extrem Venous W Compress Wayne dated 06/05/2017 TECHNIQUE: Real-time sonographic interrogation of the left and right lower extremity deep venous sys tems was performed. FINDINGS: Normal compressibility, flow augmentation, phasic flow and spontaneous flow is identified in both the left and right lower extremity deep venous systems. IMPRESSION: No sonographic evidence of left or right lower extremity deep venous thrombosis.
--- NOTE | 2020-12-05 19:21 | RAD REPORT ---
EXAM DESCRIPTION: US - Renal Ultrasound-Complete - 12/05/2020 7:06 pm CLINICAL HISTORY: HYDRO;Pain Flank pain COMPARISON: Renal Ultrasound-Complete dated 09/14/2018 FINDINGS: Both kidneys are normal in size, shape and echotexture. The right kidney measures 10.6 x 5.0 x 3.9 cm. No hydronephrosis, focal mass or perinephric fluid. The left kidney measures 9.9 x 4.7 x 3.3 cm. No hydronephrosis, focal mass or perinephric fluid. The urinary bladder is incompletely distended without gross abnormality seen. IMPRESSION: Unremarkable renal sonogram.
[2020-12-05] MEDS ORDERED: ONDANSETRON 4 MG/2 ML VIAL IV PRN (21:52)
[2020-12-05] MEDS ORDERED: IPRATROPIUM BROM 0.5MG/2.5ML NEB PRN (21:52)
[2020-12-05] MEDS ORDERED: ACETAMINOPHEN 325 MG TABLET PO PRN (21:52)
[2020-12-05] MEDS ORDERED: ALBUTEROL 2.5 MG/3 ML NEB SOL NEB PRN (21:52)
[2020-12-06 06:16] LABS: Absolute Lymphocytes (CBC) 0.9 K/uL (0.7-4.9); Basophils % 1.1 % (0-1.3); Hematocrit 34.8 % (39.6-49.0); Lymphocytes % 21.8 % (15.3-44.8); MPV 9.9 fL (7.6-11.3); RBC Red Blood Cell Count 3.33 M/uL (4.33-5.43)
[2020-12-06 08:02] LABS: Blood Morphology Comment NOT SEEN (NOT SEEN); Platelet Estimate DECR; White Blood Cell Scan OK (OK)
--- NOTE | 2020-12-06 08:35 | RAD REPORT ---
EXAM DESCRIPTION: RAD - Chest Single View - 12/06/2020 6:19 am CLINICAL HISTORY: Chest Pain Chest pain. COMPARISON: Chest Single View dated 12/05/2020; Chest Single View dated 09/01/2020; Chest Single View d ated 01/17/2020; Chest Single View dated 09/27/2018 FINDINGS: Portable technique limits examination quality. Rmew-[id number]-[id number] pulmonary edema suspected. The heart is moderately enlarged in size. Sternotomy wire s present. IMPRESSION: Mild to moderate CHF versus volume overload pattern.
[2020-12-06] MEDS: FUROSEMIDE 40 MG/4 ML VIAL IV SCH ×2 (08:59→16:29)
[2020-12-06] MEDS: AMOX/K CLAV 500 MG TAB PO SCH ×2 (08:59→20:23)
[2020-12-06] MEDS ORDERED: PNEUMOCOCCAL VACCINE 0.5 ML IMVAC ONE (09:00)
[2020-12-06] MEDS ORDERED: INFLUENZA VACCINE (for 6+ mo) 0.5 ML DOSE IMVAC ONE (09:00)
[2020-12-07 05:48] VITALS: BMI 23.7
[2020-12-07 06:04] LABS: Absolute Lymphocytes (CBC) 0.7 K/uL (0.7-4.9); Basophils % 0.5 % (0-1.3); Hematocrit 33.7 % (39.6-49.0); Lymphocytes % 15.5 % (15.3-44.8); MPV 9.3 fL (7.6-11.3)
[2020-12-07 06:45] LABS: Magnesium 2.1 mg/dL (1.8-2.4); Potassium 3.6 mmol/L (3.5-5.1)
[2020-12-07 06:46] LABS: Thyroid Stimulating Hormone 6.32 uIU/mL (0.360-3.740)
[2020-12-07] MEDS ORDERED: POTASSIUM CL SA 10 MEQ TAB PO ONE (09:00)
[2020-12-07 09:13] VITALS: BP 123/58; TEMP 98.8; O2SAT 96
[2020-12-07] MEDS: FUROSEMIDE 40 MG/4 ML VIAL IV SCH (09:26)
[2020-12-07] MEDS: AMOX/K CLAV 500 MG TAB PO SCH (09:26)
--- NOTE | 2020-12-08 05:04 | DS ---
Date of Discharge: 12/07/2020 Disposition: Discharged to go home. Physical Examination: HEENT: Unremarkable. Lungs: Clear to auscultation. No rales. No wheezing. Not in respiratory distress. Heart: Heart sounds normal, presence of systolic murmur, unchanged from yesterday. Abdomen: Soft. Bowel sounds normal. No guarding, rigidity, tenderness, distention. Extremities: Bilateral grade 1 pedal edema, better than yesterday and bilateral lower leg redness, which is also significantly better today than yesterday. There is no open wound. No discharge. No bleeding. Laboratory Data: Upon admission, white count 4, hemoglobin 12, platelets 82. Today, white count 4.8, hemoglobin 11.5, and platelet count 72. Upon admission; sodium 139, potassium 4.9, chloride 103, bicarb 31, BUN 48, creatinine 1.94, glucose 127, total bilirubin 2.6, direct bilirubin 1, AST 32, ALT 20, alkaline phosphatase 95. Troponin 0.02. Today, TSH 6.32, sodium 139, potassium 3.6, chloride 102, bicarb 34, BUN 38, creatinine 1.65, glucose 107. Hospital Course: 89-year-old male patient admitted to the hospital with leg swelling. He does have shortness of breath with activity that has not changed lately. He was admitted to the hospital with shortness of breath with activity, which has gotten worse than usual lately. After he was evaluated in the ER, he was admitted to the hospital. The patient was started on IV Lasix and oral antibiotic Augmentin. Overall, his condition has improved. He is feeling much better today and he feels like he is ready to go back home. Medically, he is stable for discharge. Final Diagnoses: 1. Congestive heart failure, chronic, diastolic, with acute exacerbation. 2. Pancytopenia. 3. Cellulitis, bilateral legs. 4. Chronic kidney disease, 3A. 5. Hypertension. 6. Type 2 diabetes mellitus. 7. Hyperlipidemia. 8. Coronary artery disease. 9. Carotid artery stenosis, bilateral. 10. Gastroesophageal reflux disease. 11. 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 12. Diverticulosis. 13. Benign prostatic hypertrophy. Discharge Medications And Instructions: 1. Continue all prior home medications. 2. Take Augmentin 500 mg 2 times a day for 1 week. 3. Follow up at my office next week on Thursday or . 4. Patient was instructed to take his medications, especially diuretic medications regularly as he has not been taking it on a daily basis. Some time he takes it once a day, some times he takes it twice a day. I have advised him to take it as prescribed. APOORVA/MAXIMILIANO Voice ID: [id number] Report ID: [id number] STEFFANY
--- NOTE | 2020-12-10 12:08 | HP ---
Date of Admission: 12/06/2020 Chief Complaint: Leg swelling and drainage from leg. History Of Present Illness: This is an 89-year-old very pleasant male patient, who came into emergency room because of open area on his legs with some drainage from his leg. He has clear colored fluid coming out of his legs. He denies any fever or chills. No nausea. No vomiting. After he was evaluated in emergency room, he was admitted to the hospital. He has a diuretic medication, but he does not consistently take it as prescribed. He denies any shortness of breath. Allergies: TO LEVAQUIN AND METFORMIN. Medications: List reviewed. Review of Systems: Cardiovascular: As mentioned above. All other systems reviewed and negative. Past Medical History: Significant for type 2 diabetes mellitus, hypertension, hyperlipidemia, coronary artery disease, aortic stenosis, carotid artery stenosis, which is bilateral, gastroesophageal reflux disease, cirrhosis of liver, not due to alcohol use, diverticulosis, benign prostatic hypertrophy, andpancytopenia. Past Surgical History: Coronary artery stent placement and coronary artery bypass surgery in the past, had aortic wall replacement surgery in August 2017 foraortic wall stenosis and had cholecystectomy in the past. Family History: Father had stroke. Brother had Alzheimer disease. Sister had lung cancer. Social History: Negative for smoking and alcohol use. Physical Examination: Vital Signs: Height 5 feet 7 inches, weight 158 pounds, temperature 98.3, pulse 59, respiratory rate 19, blood pressure 142/68, oxygen saturation 94% on room air. General: Awake, alert, oriented, not in distress. HEENT: Head atraumatic, normocephalic. Conjunctivae nonerythematous. Sclerae white. Mouth, no thrush or edema noted. Ears/Nose, no mass, lesion, discharge noted. Neck: Supple. No JVD, lymph nodes, bruit, thyromegaly noted. Lungs: Bilateral good equal air entry. Clear to auscultation. No rhonchi. No rales. Heart: Presence of systolic murmur. No gallop. Abdomen: Soft, bowel sounds normal. No guarding, rigidity, tenderness, mass, hepatosplenomegaly, distention, or bruit noted. Extremities: Bilateral grade 3 pedal edema and lower 2/3 of both lower legs have pink and warm skin. No pain. Right lower anterior leg has 2 different areas of very small skin laceration from which he actually had clear colored liquid draining yesterday, but there was no active discharge noted when I saw him. Skin: No rash, ulcer, cellulitis. Lymphatics: No lymph node enlargement in neck, supraclavicular, infraclavicular region. Neuro: No focal neurological deficit. Chest: Unremarkable. External Genitalia: Deferred. Rectal: Deferred. Laboratory Data: Yesterday; white count 4, hemoglobin 12, platelets 82. Today; white count 3.9, hemoglobin 11.9, platelets 77. Yesterday; sodium 139, potassium 4.9, chloride 103, bicarb 31, BUN 48, creatinine 1.94, glucose 127, total bilirubin 2.6. Rest of the liver function tests unremarkable. Troponin 0.02 on the first set, second set 0.03. ProBNP 12,588. Today; BUN 45, creatinine 1.74, sodium 141, potassium 4. COVID-19 test negative. His chest x- ray; no acute cardiopulmonary changes, cardiomegaly noted. Venous Doppler of lower extremity was negative for DVT and renal ultrasound was unremarkable. The patient's last echocardiogram from September 04, 2020 had shown ejection fraction of 68%, mild aortic stenosis, mitral stenosis and tricuspid regurgitation, moderate pulmonary hypertension, left atrial enlargement. Impression: 1. Congestive heart failure, chronic, diastolic, with acute exacerbation. 2. Pancytopenia. 3. Cellulitis, bilateral legs. 4. Chronic kidney disease, 3A. 5. Hypertension. 6. Type 2 diabetes mellitus. 7. Hyperlipidemia. 8. Coronary artery disease. 9. Carotid artery stenosis, bilateral. 10. Gastroesophageal reflux disease. 11. 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 12. Diverticulosis. 13. Benign prostatic hypertrophy. Plan: Admit the patient to the hospital for further evaluation and management of this problem. The patient is appropriate for inpatient and is expected to spend 2 midnights in hospital. We will go ahead and give IV Lasix 40 mg 2 times a day, monitor intake and output, and we will monitor renal function and electrolyte. Start the patient on oral antibiotic, Augmentin 500 mg 2 times a day. We will consult Physical Therapy to help ambulate the patient. SCD was ordered for DVT prophylaxis. Details of plan of treatment discussed with the patient. I will see him tomorrow for followup. Possible discharge to go home either tomorrow or day after tomorrow depending on his condition. APOORVA/MAXIMILIANO Voice ID: [id number] STEFFANY
== END 2020-12-07 10:46 | disposition home or self-care (01) | DRG 291 ==
LOC: ER 13:34 → ERHOLD 19:30 → 2ND 22:28
PROVIDERS: ADMIT Internal Medicine; ATTEND Internal Medicine
DX: I13.0 Hypertensive heart and chronic kidney disease with heart failure and stage 1 through stage 4 chronic kidney disease, or unspecified chronic kidney disease (principal); I50.33 Acute on chronic diastolic (congestive) heart failure; D61.818 Other pancytopenia; L03.116 Cellulitis of left lower limb; L03.115 Cellulitis of right lower limb; N18.31 Chronic kidney disease, stage 3a; E11.22 Type 2 diabetes mellitus with diabetic chronic kidney disease; E78.5 Hyperlipidemia, unspecified; I25.10 Atherosclerotic heart disease of native coronary artery without angina pectoris; I65.23 Occlusion and stenosis of bilateral carotid arteries; K21.9 Gastro-esophageal reflux disease without esophagitis; K74.60 Unspecified cirrhosis of liver; K57.90 Diverticulosis of intestine, part unspecified, without perforation or abscess without bleeding; N40.0 Benign prostatic hyperplasia without lower urinary tract symptoms; Z95.5 Presence of coronary angioplasty implant and graft; Z95.1 Presence of aortocoronary bypass graft; Z23 Encounter for immunization; Z20.822 Contact with and (suspected) exposure to COVID-19
CPT/HCPCS: 36415; 71045; 76770; 80048; 80076; 83735; 83880; 84439; 84443; 84484; 85025; 85610; 87070; 87077; 87186; 87205; 90471; 90732; 93005; 93970; 96374; 97116; 97161; 99284; J1940; Q2035; U0003

== ENCOUNTER 2020-12-08 07:18 | Emergency (ER) | payer MEDICARE, BC ==
--- NOTE | 2020-12-08 07:54 | ER ---
Nurse's Notes [facility] Name: Chris Mcwilliams Age: 89 yrs Sex: Male : 1930 Arrival Date: 12/08/2020 Time: 07:21 Bed 20 Private MD: Diagnosis: Skin tear to right forearm Presentation: 12/08 07:22 Chief complaint: EMS states: Laceration to right harm 1 week ago. Pt dressed it. Today ch5 he was taking bandage off and tore skin. Coronavirus screen: Vaccine status: Patient reports receiving the 2nd dose of the covid vaccine. Ebola Screen: Patient negative for fever greater than or equal to 101.5 degrees Fahrenheit, and additional compatible Ebola Virus Disease symptoms Patient denies exposure to infectious person. Patient denies travel to an Ebola-affected area in the 21 days before illness onset. Initial Sepsis Screen: Does the patient meet any 2 criteria? No. Patient's initial sepsis screen is negative. Does the patient have a suspected source of infection? No. Patient's initial sepsis screen is negative. Risk Assessment: Do you want to hurt yourself or someone else? Patient reports no desire to harm self or others. Onset of symptoms was December 08, 2020. 07:22 Method Of Arrival: EMS: [place] [id number] 07:22 Acuity: BOB 3 5 Triage Assessment: 07:29 General: Appears in no apparent distress. comfortable, Behavior is calm, appropriate ch5 for age. Pain: Denies pain. Derm: Wound noted dorsal aspect of right forearm. Historical: - Immunization history:: Adult Immunizations up to date, Client reports receiving the 2nd dose of the Covid vaccine. - Social history:: Smoking status: Patient denies any tobacco usage or history of. Screenin:31 Abuse screen: Denies threats or abuse. Denies injuries from another. Nutritional 5 screening: No deficits noted. Tuberculosis screening: No symptoms or risk factors identified. Fall Risk None identified. Assessment: 07:31 Reassessment: No changes from previously documented assessment. [facility] Vital Signs: 07:22 BP 114 / 58; Pulse 85; Resp 18; Temp 97.9(T); Pulse Ox 97% on R/A; Weight 72.57 kg; 5 Height 5 ft. 5 in. (165.10 cm); Pain 0/10; 08:46 BP 106 / 58; Pulse 79; Resp 18; Pulse Ox 100% ; Pain 0/10; ch5 07:22 Body Mass Index 26.63 (72.57 kg, 165.10 cm) ch5 ED Course: 07:21 Patient arrived in ED. ch5 07:21 Rashi Almaraz RN is Primary Nurse. ch5 07:22 Chrsi Guerrier NP is PHCP. pm1 07:22 Shan Conway MD is Attending Physician. pm1 07:29 Triage completed. ch5 07:29 Arm band placed on left wrist. ch5 07:31 Bed in low position. Call light in reach. ch5 07:31 Assist provider with laceration repair Set up tray. Performed by Chris Guerrier NP ch5 Dressed with Non stick pad with Ean wrap post dermabond. Patient did not have IV access during this emergency room visit. Administered Medications: No medications were administered Outcome: 07:31 Discharged to home via wheelchair, with family. ch5 07:31 Condition: good 07:31 Discharge instructions given to patient, family, Demonstrated understanding of wound care. 07:54 Discharge ordered by MD. pm1 08:47 Patient left the ED. ch5 Signatures: Chris Guerrier NP PLASTICS FABRICATOR OR WELDER pm1 Rashi Almaraz RN RN ch5 Corrections: (The following items were deleted from the chart) 07:29 07:29 PMHx: Myocardial infarction; ch5 ch5 07:29 07:29 PMHx: bowel obstruction; ch5 ch5 07:29 07:29 PMHx: Diverticulitis; ch5 ch5 07:29 07:29 PMHx: Hypertension; ch5 ch5 07:29 07:29 PMHx: Hyperlipidemia; ch5 ch5 07:29 07:29 PMHx: CHF; ch5 ch5 07:29 07:29 PMHx: Diabetes - IDDM; ch5 ch5 07:29 07:29 PMHx: incontent; ch5 ch5 07:29 07:29 PMHx: Atrial fibrillation; ch5 ch5 07:29 07:29 PSHx: heart valve replacement; ch5 ch5 07:29 07:29 PSHx: Coronary artery bypass graft; ch5 ch5
--- NOTE | 2020-12-08 07:54 | EDPHYS ---
Physician Documentation [facility] Name: Chris Mcwilliams Age: 89 yrs Sex: Male : 1930 Arrival Date: 12/08/2020 Time: 07:21 Bed 20 Private MD: ED Physician Shan Conway HPI: 12/08 07:51 This 89 yrs old Male presents to ER via EMS with complaints of Skin tear. pm1 07:51 The patient has a laceration related to: skin tear from taking off a bandage that has pm1 been on him for 7 days occurred at home, and there are no complicating factors. The laceration(s) is(are) located on the dorsal aspect of right forearm. Onset: The symptoms/episode began/occurred just prior to arrival. Associated signs and symptoms: The patient has no apparent associated signs or symptoms. The patient has not experienced similar symptoms in the past. The patient has not recently seen a physician. Patient with skin tear present to right forearm. Skin tear occurred when he took off his bandage. Bandage was placed when he accidentally bumped his arm against wall. Historical: - Immunization history:: Adult Immunizations up to date, Client reports receiving the 2nd dose of the Covid vaccine. - Social history:: Smoking status: Patient denies any tobacco usage or history of. ROS: 07:51 Constitutional: Negative for fever, chills, and weight loss, Eyes: Negative for injury, pm1 pain, redness, and discharge, Cardiovascular: Negative for chest pain, palpitations, and edema, Respiratory: Negative for shortness of breath, cough, wheezing, and pleuritic chest pain, Abdomen/GI: Negative for abdominal pain, nausea, vomiting, diarrhea, and constipation, Back: Negative for injury and pain, MS/Extremity: Negative for injury and deformity. 07:51 Skin: Positive for of the dorsal aspect of right forearm, skin tear, Negative for laceration(s). 07:51 All other systems are negative. Exam: 07:51 Constitutional: This is a well developed, well nourished patient who is awake, alert, pm1 and in no acute distress. Head/Face: Normocephalic, atraumatic. 07:51 Back: Full range of motion. MS/ Extremity: Pulses equal, no cyanosis. Neurovascular intact. Full, normal range of motion. 07:51 Cardiovascular: Exam negative for acute changes, Rate: normal, Rhythm: regular, Pulses: no pulse deficits are appreciated. 07:51 Respiratory: Exam negative for acute changes, respiratory distress, shortness of breath. 07:51 Skin: Appearance: normal except for affected area, injury, Irregular shaped skin tear present to right forearm, dorsal aspect, not bleeding. 07:51 Neuro: Exam negative for acute changes, Orientation: is normal, Mentation: is normal, Motor: is normal, moves all fours. Vital Signs: 07:22 BP 114 / 58; Pulse 85; Resp 18; Temp 97.9(T); Pulse Ox 97% on R/A; Weight 72.57 kg; ch5 Height 5 ft. 5 in. (165.10 cm); Pain 0/10; 08:46 BP 106 / 58; Pulse 79; Resp 18; Pulse Ox 100% ; Pain 0/10; ch5 07:22 Body Mass Index 26.63 (72.57 kg, 165.10 cm) [facility] Laceration: 07:54 Wound Repair of 7cm ( 2.8in ) skin tear laceration to dorsal aspect of right forearm. pm1 Irregularly shaped.. Distal neuro/vascular/tendon intact. Wound prep: Extensive cleansing with hibiclenz by nurse, Wound irrigation with saline by nurse, Wound explored extensively, Copious irrigation. Skin closed with 1-0 Adhesive skin closure using Dermabond. Dressed with non-adherent dressing. Patient tolerated well. MDM: 07:25 Patient medically screened. pm1 07:53 Data reviewed: vital signs. Data interpreted: Pulse oximetry: on room air is 97 %. pm1 Interpretation: normal. Counseling: I had a detailed discussion with the patient and/or guardian regarding: the historical points, exam findings, and any diagnostic results supporting the discharge/admit diagnosis, the need for outpatient follow up, to return to the emergency department if symptoms worsen or persist or if there are any questions or concerns that arise at home. Administered Medications: No medications were administered Disposition: 17:59 Co-signature as Attending Physician, Shan Conway MD I agree with the assessment and rn plan of care. Attestation: The patient's history, exam findings, diagnostics, and a summary of any interventions or procedures was reviewed in detail with Chris Guerrier NP. Disposition Summary: 12/08/20 07:54 Discharge Ordered Location: Home pm1 Problem: new pm1 Symptoms: have improved pm1 Condition: Stable pm1 Diagnosis - Skin tear to right forearm pm1 Followup: pm1 - With: Emergency Department - When: As needed - Reason: Worsening of condition Followup: pm1 - With: Private Physician - When: As needed - Reason: Recheck today's complaints, Continuance of care, Re-evaluation by your physician Discharge Instructions: - Discharge Summary Sheet pm1 - Tissue Adhesive Wound Care pm1 Forms: - Medication Reconciliation Form pm1 - Thank You Letter pm1 - Antibiotic Education pm1 - Prescription Opioid Use pm1 Signatures: Shan Conway MD MD rn Marinas, Patrick, NP FIRESETTER pm1 Rashi Almaraz RN RN ch5 Corrections: (The following items were deleted from the chart) 07:29 07:29 PMHx: Myocardial infarction; ch5 ch5 07:29 07:29 PMHx: bowel obstruction; ch5 ch5 07:29 07:29 PMHx: Diverticulitis; ch5 ch5 07:29 07:29 PMHx: Hypertension; ch5 ch5 07:29 07:29 PMHx: Hyperlipidemia; ch5 ch5 07:29 07:29 PMHx: CHF; ch5 ch5 07:29 07:29 PMHx: Diabetes - IDDM; ch5 ch5 07:29 07:29 PMHx: incontent; ch5 ch5 07:29 07:29 PMHx: Atrial fibrillation; ch5 ch5 07:29 07:29 PSHx: heart valve replacement; ch5 ch5 07:29 07:29 PSHx: Coronary artery bypass graft; ch5 ch5
[2020-12-08] MEDS ORDERED: DERMABOND SKIN ADHESIVE TOP ONE (07:59)
[2020-12-08 08:52] VITALS: TEMP 97.9
[2020-12-08 08:53] VITALS: BP 106/58; O2SAT 100
== END 2020-12-08 08:47 | disposition home or self-care (01) ==
LOC: ER 07:18
PROC: 0HQDXZZ Repair Right Lower Arm Skin, External Approach (ICD-10-PCS; principal; 2020-12-08)
DX: S51.811A Laceration without foreign body of right forearm, initial encounter (principal); X58.XXXA Exposure to other specified factors, initial encounter; Y93.9 Activity, unspecified; Y92.9 Unspecified place or not applicable
CPT/HCPCS: 99283

== ENCOUNTER 2021-01-21 09:20 | Emergency (ER) | payer MEDICARE, BC ==
--- OUTSIDE RECORDS SUMMARY | 2021-01-21 09:30 | XMS REPORT | Continuity of Care Document ---
:1930 Author Organization [facility] t Address [address] [place] [address] [address] [place] [address] Care Team Providers Name Role Phone BELLO MUÑIZ Attending Clinician Unavailable DANIELA DOOLEY Attending Clinician Unavailable Russ CHARLES Attending Clinician Unavailable ABILIO BALLARD Attending Clinician Unavailable BELLO MUÑIZ Admitting Clinician Unavailable DANIELA DOOLEY Admitting Clinician Unavailable Russ CHARLES Admitting Clinician Unavailable ABILIO BALLARD Admitting Clinician Unavailable Problems This patient has no known problems. Allergies, Adverse Reactions, Alerts This patient has no known allergies or adverse reactions. Medications This patient has no known medications. Procedures This patient has no known procedures. Results Test Description Test Time Test Comments Results Result Comments Source POCT-GLUCOSE METER 2018-09-03 12:51:00 Test Item Value Reference Range Interpretation Comme nts POC-GLUCOSE METER (BEAKER) (test 127 mg/dL 70-110 H TESTED AT [facility] [address] [facility] code = 1538) [facility] 7703 0 POCT-GLUCOSE [id number] 08:51:00 Test Item Value Reference Range Interpretation Comments POC-GLUCOSE METER 104 mg/dL 70-110 TESTED AT [facility] 6720 (BEAKER) (test code = TEX R [facility] 1538) [address] BASIC METABOLIC [id number] 07:00:00 Test Item Value Reference Range Interpretation [...] 0-0 (BEAKER) (test code = 413) POCT-GLUCOSE [id number] 21:00:00 Test Item Value Reference Range Interpretation Comments POC-GLUCOSE METER 133 mg/dL 70-110 H TESTED AT [facility] 6720 (BEAKER) (test code = TEX RAMIREZ 1538) [address] POCT-GLUCOSE [id number] 16:55:00 Test Item Value Reference Range Interpretation Comments POC-GLUCOSE METER 148 mg/dL 70-110 H TESTED AT [facility] 6720 [facility] (test code = TEX Shabazz [facility] 1538) [address] POCT-GLUCOSE [id number] 13:18:00 Test Item Value Reference Range Interpretation Comments POC-GLUCOSE METER 136 mg/dL 70-110 H TESTED AT [facility] 6720 ([facility] (test code = [facility] Mele [facility] 1538) [address] POCT-GLUCOSE [id number] 08:34:00 Test Item Value Reference Range Interpretation Comments POC-GLUCOSE METER 107 mg/dL 70-110 TESTED AT [place] [address] ([facility]) (test code = [facility] 1538) [address] BASIC METABOLIC [id number] 07:18:00 Test Item Value Reference Range Interpretation [...] Specimen slightly ictericCBC W/PLT COUNT & AUTO [id number] 06:32:00 Test Item Value Reference Range Interpretation [...] PERCENT (BEAKER) (test code = 2801) POCT-GLUCOSE [id number] 21:22:00 Test Item Value Reference Range Interpretation Comments POC-GLUCOSE METER 190 mg/dL 70-110 H TESTED AT [place] [address] ([facility]) (test code = TEX Shabazz [facility] 1538) [address] POCT-GLUCOSE [id number] 17:49:00 Test Item Value Reference Range Interpretation Comments POC-GLUCOSE METER 112 mg/dL 70-110 H TESTED AT [place] [address] ([facility]) (test code = TEX Shabazz [facility] 1538) 22182 POCT-GLUCOSE [id number] 13:14:00 Test Item Value Reference Range Interpretation Comments POC-GLUCOSE METER 137 mg/dL 70-110 H TESTED AT [place] [address] ([facility]) (test code = TEX Shabazz [facility] 1538) [address] POCT-GLUCOSE [id number] 07:55:00 Test Item Value Reference Range Interpretation Comments POC-GLUCOSE METER 102 mg/dL 70-110 TESTED AT [place] [address] ([facility]) (test code = TEX Shabazz [facility] 1538) 83195 CBC W/PLT COUNT & AUTO [id number] 06:09:00 Test Item Value Reference Range Interpretation [...] (BEAKER) (test code = 2801) BASIC METABOLIC [id number] 05:59:00 Test Item Value Reference Range Interpretation [...] FOR DIALYSIS PATIEN TS. Specimen slightly ictericPOCT-GLUCOSE [id number] 22:01:00 Test Item Value Reference Range Interpretation Comments POC-GLUCOSE METER 136 mg/dL 70-110 H TESTED AT [place] [address] ([facility]) (test code = TEX Shabazz [facility] 1538) [address] FL, ESOPH, SWALLOW FUNCTION, WITH CINE OR [id number] 17:39:00Reason for exam:->DysphagiaFINAL REPORT INDICATION: Dysphagia. TECHNIQUE: The patient was administered various consistencies of liquid and food mixed with barium. Swallowing was observed with the speech pathologist present. Fluoroscopy time 1.6 minutes.Fluoroscopic images 1 FINDINGS / IMPRESSION:There wasaspiration on thin consistency and penetration on nectar consistency. Please see report written by the speech pathologist for detailed report and recommendations. Signed: Rashad Hernandeseport Verified Date/Time: 08/31/2018 17:39:54 Reading Location: [address] Consult Reading Room -GLUCOSE [id number] 17:04:00 Test Item Value Reference Range Interpretation Comments POC-GLUCOSE METER 154 mg/dL 70-110 H TESTED AT [place] [address] ([facility]) (test code = TEX Shabazz [facility] 1538) 19071 POCT-GLUCOSE [id number] 13:17:00 Test Item Value Reference Range Interpretation Comments POC-GLUCOSE METER 168 mg/dL 70-110 H TESTED AT [place] [address] ([facility]) (test code = TEX Shabazz [facility] 1538) [address] POCT-GLUCOSE [id number] 12:33:00 Test Item Value Reference Range Interpretation Comments POC-GLUCOSE METER 127 mg/dL 70-110 H TESTED AT [place] [address] ([facility]) (test code = TEX Shabazz [facility] 1538) 47811 CBC W/PLT COUNT & AUTO [id number] 05:57:00 Test Item Value Reference Range Interpretation Comments WHITE BLOOD CELL COUNT (AKER) 5.4 K/ L 3.5-10.5 (test code = 775) RED BLOOD CELL COUNT (AKER) 2.27 M/ L 4.63-6.08 L (test code [...] PERCENT (BEAKER) (test code = 2801) TROPONIN [id number] 05:56:00 Test Item Value Reference Range Interpretation [...] failure, acidosis, acute neurological disease, and persistent tachyarrhythmia.[id number] 05:48:00 Test Item Value Reference Range Interpretation Comments MAGNESIUM (BEAKER) (test code = 2.2 mg/dL 1.6-2.6 627) BASIC METABOLIC [id number] 05:48:00 Test Item Value Reference Range Interpretation [...] NOT APPLICABLE FOR DIALYSIS PATIEN TS. POCT-GLUCOSE [id number] 04:49:00 Test Item Value Reference Range Interpretation Comments POC-GLUCOSE METER 131 mg/dL 70-110 H TESTED AT [facility] 6720 ([email or web address]) (test code = [facility] 1538) 85184 POCT-GLUCOSE [id number] 22:24:00 Test Item Value Reference Range Interpretation Comments POC-GLUCOSE METER 180 mg/dL 70-110 H TESTED AT [facility] 6720 ([employer]ET[employer]) (test code = [facility] 1538) 36495 POCT-GLUCOSE [id number] 17:17:00 Test Item Value Reference Range Interpretation Comments POC-GLUCOSE METER 176 mg/dL 70-110 H TESTED AT [place] [address] (BEAKER) (test code = TEX Shabazz [place] 1538) [address] POCT-GLUCOSE [id number] 11:51:00 Test Item Value Reference Range Interpretation Comments POC-GLUCOSE METER 180 mg/dL 70-110 H TESTED AT [place] [address] (BEAKER) (test code = TEX Shabazz [place] 1538) [address] HEMOGLOBIN AND [id number] 07:49:00 Test Item Value Reference Range Interpretation Comments HEMOGLOBIN (BEAKER) (test code = 7.3 GM/DL 13.7-17.5 L 410) HEMATOCRIT (BEAKER) (test code = 22.6 % 40.1-51.0 L 411) BASIC METABOLIC [id number] 06:43:00 Test Item Value Reference Range Interpretation [...] NOT APPLICABLE FOR DIALYSIS PATIEN TS. POCT-GLUCOSE [id number] 06:26:00 Test Item Value Reference Range Interpretation Comments POC-GLUCOSE METER 173 mg/dL 70-110 H TESTED AT [place] [id number] (BEAKER) (test code = TEX Shabazz [place] 1538) [address] POCT-GLUCOSE [id number] 00:26:00 Test Item Value Reference Range Interpretation Comments POC-GLUCOSE METER 182 mg/dL 70-110 H TESTED AT [place] [address] ([facility] (test code = TEX Shabazz [facility] 1538) [address] POCT-GLUCOSE [id number] 18:53:00 Test Item Value Reference Range Interpretation Comments POC-GLUCOSE METER 174 mg/dL 70-110 H TESTED AT [place] [address] ([facility]) (test code = TEX Shabazz [facility] 1538) [address] POCT-GLUCOSE [id number] 12:47:00 Test Item Value Reference Range Interpretation Comments POC-GLUCOSE METER 215 mg/dL 70-110 H TESTED AT [place] [address] ([facility]) (test code = TEX Shabazz [facility] 1538) [address] POCT-GLUCOSE [id number] 08:59:00 Test Item Value Reference Range Interpretation Comments POC-GLUCOSE METER 185 mg/dL 70-110 H TESTED AT [place] [address] ([facility]) (test code = TEX Shabazz [facility] 1538) [address] POCT-GLUCOSE [id number] 06:33:00 Test Item Value Reference Range Interpretation Comments POC-GLUCOSE METER 195 mg/dL 70-110 H TESTED AT [place] [address] ([facility]) (test code = TEX Shabazz [facility] 1538) [address] BASIC METABOLIC [id number] 03:42:00 Test Item Value Reference Range Interpretation [...] NOT APPLICABLE FOR DIALYSIS PATIEN TS. PROTHROMBIN [id number] 03:37:00 Test Item Value Reference Range Interpretation [...] mechanical heart valves.CBC W/PLT COUNT & AUTO [id number] 03:32:00 Test Item Value Reference Range Interpretation [...] PERCENT (BEAKER) (test code = 2801) POCT-GLUCOSE [id number] 00:13:00 Test Item Value Reference Range Interpretation Comments POC-GLUCOSE METER 187 mg/dL 70-110 H TESTED AT [place] [address] ([facility]) (test code = TEX Shabazz [facility] 1538) [address] POCT-GLUCOSE [id number] 18:27:00 Test Item Value Reference Range Interpretation Comments POC-GLUCOSE METER 184 mg/dL 70-110 H TESTED AT [place] [address] ([facility]) (test code = [facility] Shabazz [facility] 1538) [address] POCT-GLUCOSE [id number] 14:01:00 Test Item Value Reference Range Interpretation Comments POC-GLUCOSE METER 224 mg/dL 70-110 H TESTED AT [place] [address] ([facility]) (test code = [facility] Mele [facility] 1538) [address] [id number] 06:44:00 Test Item Value Reference Range Interpretation Comments MAGNESIUM (BEAKER) (test code = 2.6 mg/dL 1.6-2.6 627) BASIC METABOLIC [id number] 06:44:00 Test Item Value Reference Range Interpretation [...] NOT APPLICABLE FOR DIALYSIS PATIEN TS. POCT-GLUCOSE [id number] 06:21:00 Test Item Value Reference Range Interpretation Comments POC-GLUCOSE METER 181 mg/dL 70-110 H TESTED AT [facility] 6720 ([facility]) (test code = [place] 1538) [address] PROTHROMBIN [id number] 05:09:00 Test Item Value Reference Range Interpretation [...] PLATELET COUNT ([facility]) (test 107 K/CU MM 150-450 L code = 756) MEAN PLATELET VOLUME (AKER) 10.9 fL 9.4-12.4 (test code = 754) NUCLEATED RED BLOOD CELLS 0 /100 WBC 0-0 ([facility]) (test code = 413) POCT-GLUCOSE [id number] 00:55:00 Test Item Value Reference Range Interpretation Comments POC-GLUCOSE METER 211 mg/dL 70-110 H TESTED AT [place] [address] ([facility]) (test code = [place] 1538) [address] POCT-GLUCOSE [id number] 21:29:00 Test Item Value Reference Range Interpretation Comments POC-GLUCOSE METER 220 mg/dL 70-110 H TESTED AT [place] [address] ([facility]) (test code = [place] 1538) [address] POCT-GLUCOSE [id number] 18:15:00 Test Item Value Reference Range Interpretation Comments POC-GLUCOSE METER 200 mg/dL 70-110 H TESTED AT [place] [address] ([facility]) (test code = [place] 1538) 28528 POCT-GLUCOSE [id number] 11:57:00 Test Item Value Reference Range Interpretation Comments POC-GLUCOSE METER 238 mg/dL 70-110 H TESTED AT [place] [address] ([facility]) (test code = [place] 1538) 07394 HEMOGLOBIN AND [id number] 08:02:00 Test Item Value Reference Range Interpretation Comments HEMOGLOBIN (BEAKER) (test code = 7.3 GM/DL 13.7-17.5 L 410) HEMATOCRIT (BEAKER) (test code = 23.2 % 40.1-51.0 L 411) [id number] 06:37:00 Test Item Value Reference Range Interpretation Comments MAGNESIUM (BEAKER) (test code = 2.6 mg/dL 1.6-2.6 627) BASIC METABOLIC [id number] 06:37:00 Test Item Value Reference Range Interpretation [...] FOR DIALYSIS PATIEN TS. Specimen slightly ictericPOCT-GLUCOSE [id number] 06:24:00 Test Item Value Reference Range Interpretation Comments POC-GLUCOSE METER 160 mg/dL 70-110 H TESTED AT [facility] 6720 (BEAKER) (test code = [place] 1534) [address] PROTHROMBIN [id number] 05:49:00 Test Item Value Reference Range Interpretation Comments PROTIME (BEAKER) (test code = 15.1 seconds 11.9-14.2 H 759) INR (BEAKER) (test code = 370) 1.2 <=5.9 Effective 07/28/2018: PT Reference Range ChangeNew: 11.9-14.2 Previous: 11.7- 14.7RECOMMENDED COUMADIN/WARFARIN INR THERAPY RANGESSTANDARD DOSE: 2.0-3.0 Includes: PROPHYLAXIS for venous thrombosis, systemic embolization; TREATMENT for venous thrombosis and/or pulmonary embolus.HIGH RISK: Target INR is2.5-3.5 for patients wiht mechanical heart valves.POCT-GLUCOSE [id number] 18:38:00 Test Item Value Reference Range Interpretation Comments POC-GLUCOSE METER 196 mg/dL 70-110 H TESTED AT [place] [address] ([facility]) (test code = TEX Shabazz [facility] 1538) 469[address] POCT-GLUCOSE [id number] 13:58:00 Test Item Value Reference Range Interpretation Comments POC-GLUCOSE METER 244 mg/dL 70-110 H TESTED AT [place] [address] ([facility]) (test code = TEX Shabazz [facility] 1538) 8[address] [id number] 07:56:00 Test Item Value Reference Range Interpretation Comments PHOSPHORUS (BEAKER) (test code = 2.2 mg/dL 2.3-4.7 L 604) POCT-GLUCOSE [id number] 06:22:00 Test Item Value Reference Range Interpretation Comments POC-GLUCOSE METER 179 mg/dL 70-110 H TESTED AT [place] [address] ([facility]) (test code = TEX Shabazz [facility] 1538) [address]33 POCT-GLUCOSE [id number] 05:10:00 Test Item Value Reference Range Interpretation Comments POC-GLUCOSE METER 249 mg/dL 70-110 H TESTED AT [place] [address] ([facility]) (test code = [place] [facility] 1538) [address] [id number] 04:08:00 Test Item Value Reference Range Interpretation Comments MAGNESIUM (BEAKER) (test code = 2.7 mg/dL 1.6-2.6 H 627) BASIC METABOLIC [id number] 04:08:00 Test Item Value Reference Range Interpretation [...] NOT APPLICABLE FOR DIALYSIS PATIEN TS. PROTHROMBIN [id number] 03:49:00 Test Item Value Reference Range Interpretation [...] mechanical heart valves.CBC W/PLT COUNT & AUTO [id number] 03:49:00 Test Item Value Reference Range Interpretation [...] PERCENT (BEAKER) (test code = 2801) POCT-GLUCOSE [id number] 00:22:00 Test Item Value Reference Range Interpretation Comments POC-GLUCOSE METER 214 mg/dL 70-110 H TESTED AT [facility] 6720 (BEAKER) (test code = [place] 1538) [address] POCT-GLUCOSE [id number] 17:37:00 Test Item Value Reference Range Interpretation Comments POC-GLUCOSE METER 164 mg/dL 70-110 H TESTED AT [facility] 6720 (BEAKER) (test code = [place] 1538) 25[address] CBC W/PLT COUNT & AUTO [id number] 15:32:00 Test Item Value Reference Range Interpretation [...] (test code = 2801) EEG AWAKE/ASLEEP AND [id number] 14:46:00Reason for exam:->continued decreased responsivenessShould this be performed at the bedside?->YesDate(s) of EE08/25/2018DATE OF REPORT: 08/25/2018ACC:[id number] Number: [id number] Location: Inpatient ICUStart time:09:45 amStop time:10:06 amICD-10: R56.9 Unspecified ConvulsionsCPT Code: 56987 EEG HISTORY: 88 y.o. 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 MEDICATION THAT CAN AFFECT EEG: [...] are no electrographic seizures in this study. Cemal Karakas, MDNeu rophysiology Fellow Onur Leiva MD, MSClinical Neurophysiology/Epilepsy Attending POCT-GLUCOSE [id number] 12:43:00 Test Item Value Reference Range Interpretation Comments POC-GLUCOSE METER 221 mg/dL 70-110 H TESTED AT [place] [address] ([facility]) (test code = TEX Shabazz [facility] 1538) 7[address] RAD, CHEST, 1 VIEW, NON [id number] 11:00:00Reason for exam:- >hemoptysisShould this be performed [...] MDReport Verified Date/Time: 08/25/2018 11:00:37 Reading Location: [facility] Radiology Reading Room POCT-GLUCOSE [id number] 06:39:00 Test Item Value Reference Range Interpretation Comments POC-GLUCOSE METER 202 mg/dL 70-110 H TESTED AT [place] [address] ([facility]) (test code = TEX Shabazz [facility] 1538) 16241 BLOOD GAS, [id number] 05:13:00 Test Item Value Reference Range Interpretation [...] code = 1819) 24.0 % BASIC METABOLIC [id number] 05:10:00 Test Item Value Reference Range Interpretation [...] FOR DIALYSIS PATIEN TS. Specimen slightly ictericPROTHROMBIN [id number] 05:07:00 Test Item Value Reference Range Interpretation [...] mechanical heart valves.CBC W/PLT COUNT & AUTO [id number] 04:52:00 Test Item Value Reference Range Interpretation [...] = 2801) RAD, CHEST, 1 VIEW, NON [id number] 04:28:00Reason for exam:- >intubatedShould this be performed at the bedside?->YesFINAL REPORT CLINICAL INDICATION: Support lines. Comparison: 08/24/2018 The cardiomediastinal contours are stable. Central pulmonary vascular congestion and bilateral parenchymalopacities are similar to previous. There is no pneumothorax. Support lines are stable. Signed: Dawson Barron MDReport Verified Date/Time: 08/25/2018 04:28:55 Reading Location: [address] Reading Room POCT-GLUCOSE [id number] 00:29:00 Test Item Value Reference Range Interpretation Comments POC-GLUCOSE METER 258 mg/dL 70-110 H TESTED AT [facility] 67 (BEAKER) (test code = [place] [facility] 1538) [address] POCT-GLUCOSE [id number] 18:26:00 Test Item Value Reference Range Interpretation Comments POC-GLUCOSE METER 293 mg/dL 70-110 H TESTED AT [facility] 6720 (BEAKER) (test code = [facility] [place] [facility] 1538) [address] BLOOD GAS, [id number] 15:38:00 Test Item Value Reference Range Interpretation [...] code = 1819) 30.0 % BLOOD GAS, [id number] 14:57:00 Test Item Value Reference Range Interpretation [...] code = 1819) 24.0 % BASIC METABOLIC [id number] 14:47:00 Test Item Value Reference Range Interpretation [...] S NOT APPLICABLE FOR DIALYSIS PATIEN TS. [id number] 14:47:00 Test Item Value Reference Range Interpretation Comments MAGNESIUM (BEAKER) (test code = 2.2 mg/dL 1.6-2.6 627) [id number] 14:47:00 Test Item Value Reference Range Interpretation Comments PHOSPHORUS (BEAKER) (test code = 1.9 mg/dL 2.3-4.7 L 604) CBC W/PLT COUNT & AUTO [id number] 14:12:00 Test Item Value Reference Range Interpretation [...] PERCENT (BEAKER) (test code = 2801) CALCIUM, [id number] 13:35:00 Test Item Value Reference Range Interpretation Comments CALCIUM IONIZED (BEAKER) (test 1.16 mmol/L 1.12-1.27 code = 698) PH, BLOOD (AKER) (test code = 7.49 1810) TROPONIN [id number] 13:08:00 Test Item Value Reference Range Interpretation [...] acidosis, acute neurological disease, and persistent tachyarrhythmia.POCT-GLUCOSE [id number] 12:10:00 Test Item Value Reference Range Interpretation Comments POC-GLUCOSE METER 258 mg/dL 70-110 H TESTED AT [place] [address] ([facility]) (test code = TEX Shabazz [facility] 1538) 0[address] POCT-GLUCOSE [id number] 06:22:00 Test Item Value Reference Range Interpretation Comments POC-GLUCOSE METER 215 mg/dL 70-110 H TESTED AT [place] [address] ([facility]) (test code = TEX Shabazz [facility] 1538) 88485 BLOOD GAS, [id number] 06:06:00 Test Item Value Reference Range Interpretation [...] code = 1819) 24.0 % BASIC METABOLIC [id number] 05:50:00 Test Item Value Reference Range Interpretation [...] Specimen slightly ictericCBC W/PLT COUNT & AUTO [id number] 05:49:00 Test Item Value Reference Range Interpretation [...] PERCENT (BEAKER) (test code = 2801) PROTHROMBIN [id number] 05:34:00 Test Item Value Reference Range Interpretation [...] for patients wiht mechanical heart valves.HEMOGLOBIN AND [id number] 05:30:00 Test Item Value Reference Range Interpretation Comments HEMOGLOBIN (BEAKER) (test code = 7.7 GM/DL 13.7-17.5 L 410) HEMATOCRIT (BEAKER) (test code = 23.8 % 40.1-51.0 L 411) RAD, CHEST, 1 VIEW, NON [id number] 04:20:00Reason for exam:- >intubatedShould this be performed at the bedside?->YesFINAL REPORT CLINICAL INDICATION: Support lines. Comparison: 08/23/2018 The right costophrenic sulcus is excluded. The cardiomediastinal contours are stable. Central pulmonary vascular congestion and bilateral parenchymal and left pleural opacities are similar to previous. Thereis no pneumothorax. Support lines are stable. Signed: Dawson Barron Verified Date/Time: 08/24/2018 04:20:37 Reading Location: [address] Reading Room HEMOGLOBIN AND [id number] 00:40:00 Test Item Value Reference Range Interpretation Comments HEMOGLOBIN (BEAKER) (test code = 7.8 GM/DL 13.7-17.5 L 410) HEMATOCRIT (BEAKER) (test code = 24.2 % 40.1-51.0 L 411) POCT-GLUCOSE [id number] 00:30:00 Test Item Value Reference Range Interpretation Comments POC-GLUCOSE METER 192 mg/dL 70-110 H TESTED AT [facility] 6720 (BEAKER) (test code = TEX Shabazz [facility] 1538) 8[address] POCT-GLUCOSE [id number] 17:25:00 Test Item Value Reference Range Interpretation Comments POC-GLUCOSE METER 199 mg/dL 70-110 H TESTED AT [facility] 6720 (BEAKER) (test code = [facility] [place] [facility] 1538) [address]15 HEMOGLOBIN AND [id number] 15:58:00 Test Item Value Reference Range Interpretation Comments HEMOGLOBIN (BEAKER) (test code = 7.6 GM/DL 13.7-17.5 L 410) HEMATOCRIT (BEAKER) (test code = 23.1 % 40.1-51.0 L 411) POCT-GLUCOSE [id number] 13:05:00 Test Item Value Reference Range Interpretation Comments POC-GLUCOSE METER 196 mg/dL 70-110 H TESTED AT [facility] 6720 (BEAKER) (test code = TEX HYDE [place] 1538) [address] TROPONIN [id number] 10:06:00 Test Item Value Reference Range Interpretation [...] (BEAKER) (test code = 2801) BLOOD GAS, [id number] 09:19:00 Test Item Value Reference Range Interpretation [...] code = 1819) 30.0 % BLOOD GAS, [id number] 05:48:00 Test Item Value Reference Range Interpretation [...] 40.0 % RAD, CHEST, 1 VIEW, NON [id number] 04:45:00Reason for exam:- >intubatedShould this be performed [...] PATIEN TS. Specimen slightly ictericCT, BRAIN, WITHOUT [id number] 03:59:00FINAL REPORT CT Head without contrast CLINICAL [...] signs of acute sinusitis. Signed: David Jha [facility] Verified Date/Time: 08/23/2018 03:59:22 ONIN [id number] 02:22:00 Test Item Value Reference Range Interpretation [...] (BEAKER) (test code = 2801) HEMOGLOBIN AND [id number] 02:04:00 Test Item Value Reference Range Interpretation Comments HEMOGLOBIN (BEAKER) (test code = 8.0 GM/DL 13.7-17.5 L 410) HEMATOCRIT (BEAKER) (test code = 23.9 % 40.1-51.0 L 411) POCT-GLUCOSE [id number] 01:58:00 Test Item Value Reference Range Interpretation Comments POC-GLUCOSE METER 194 mg/dL 70-110 H TESTED AT [place] [address] ([facility]) (test code = TEX Shabazz [facility] 1538) [address] POCT-GLUCOSE [id number] 18:05:00 Test Item Value Reference Range Interpretation Comments POC-GLUCOSE METER 212 mg/dL 70-110 H TESTED AT [place] [address] ([facility]) (test code = [facility] Mele [facility] 1538) [address] BLOOD GAS, [id number] 17:31:00 Test Item Value Reference Range Interpretation [...] 40.0 % RAD, CHEST, 1 VIEW, NON [id number] 16:59:00Post-intubationReason for exam:- >intubationShould this be performed [...] MDReport Verified Date/Time: 08/22/2018 16:59:35 Reading Location: [address] Consult Reading Room CBC W/PLT COUNT & AUTO [id number] 16:38:00 Test Item Value Reference Range Interpretation [...] (BEAKER) (test code = 2801) HEMOGLOBIN AND [id number] 16:25:00 Test Item Value Reference Range Interpretation Comments HEMOGLOBIN (BEAKER) (test code = 8.3 GM/DL 13.7-17.5 L 410) HEMATOCRIT (BEAKER) (test code = 25.3 % 40.1-51.0 L 411) BLOOD GAS, [id number] 15:56:00 Test Item Value Reference Range Interpretation [...] code = 1819) 21.0 % HEPATIC FUNCTION [id number] 14:56:00 Test Item Value Reference Range Interpretation [...] (test code = 347) hemolyzed Specimen slightly [id number] 14:50:00 Test Item Value Reference Range Interpretation Comments AMMONIA (BEAKER) (test code = 348) 129 mol/L 18-72 H TROPONIN [id number] 14:12:00 Test Item Value Reference Range Interpretation [...] and persistent tachyarrhythmia.RAD, CHEST, 1 VIEW, NON [id number] 14:11:00Post-intubationReason for exam:->r/o pnaShould this be performed [...] MDReport Verified Date/Time: 2018 14:11:20 Reading Location: [address] Ortho Consult Reading Room PHOSPHORUS 2018-08-22 14:06:00 Test Item Value Reference Range Interpretation Comments PHOSPHORUS (BEAKER) (test code = 3.6 mg/dL 2.3-4.7 604) [id number] 14:06:00 Test Item Value Reference Range Interpretation Comments MAGNESIUM (BEAKER) (test code = 2.0 mg/dL 1.6-2.6 627) COMPREHENSIVE METABOLIC [id number] 14:06:00 Test Item Value Reference Range Interpretation [...] DIALYSIS PATIEN TS. Specimen slightly ictericLACTIC ACID, [id number] 14:01:00 Test Item Value Reference Range Interpretation Comments LACTATE BLOOD VENOUS 1.9 mmol/L 0.5-2.2 Specime n slightly (2) (BEAKER) (test hemolyzed code = 9320) Specimen slightly [id number] 14:00:00 Test Item Value Reference Range Interpretation Comments FIBRINOGEN LEVEL (BEAKER) (test 329 mg/dl 225-434 code = 658) [id number] 14:00:00 Test Item Value Reference Range Interpretation Comments PARTIAL THROMBOPLASTIN TIME 36.4 seconds 22.5-36.0 H (BEAKER) (test code = 760) PROTHROMBIN [id number] 13:59:00 Test Item Value Reference Range Interpretation [...] mechanical heart valves.CBC W/PLT COUNT & AUTO [id number] 13:47:00 Test Item Value Reference Range Interpretation [...] PERCENT (BEAKER) (test code = 2801) POCT-GLUCOSE [id number] 07:50:00 Test Item Value Reference Range Interpretation Comments POC-GLUCOSE METER 137 mg/dL 70-110 H TESTED AT [facility] 6720 (BEAKER) (test code = [place] 1538) [address] BASIC METABOLIC [id number] 06:28:00 Test Item Value Reference Range Interpretation [...] PATIEN TS. CBC W/PLT COUNT & AUTO [id number] 06:08:00 Test Item Value Reference Range Interpretation [...] PERCENT (BEAKER) (test code = 2801) PROTHROMBIN [id number] 05:57:00 Test Item Value Reference Range Interpretation [...] METER 138 mg/dL 70-110 H TESTED AT [facility] 6720 ([facility]) (test code = [place] 1538) [address] POCT-GLUCOSE [id number] 17:49:00 Test Item Value Reference Range Interpretation Comments POC-GLUCOSE METER 137 mg/dL 70-110 H TESTED AT [facility] 6720 (BEAKER) (test code = [place] 1532) [address] CBC W/PLT COUNT & AUTO [id number] 13:23:00 Test Item Value Reference Range Interpretation [...] 3438) Received comment: User comments: Slide comments:POCT-GLUCOSE [id number] 11:08:00 Test Item Value Reference Range Interpretation Comments POC-GLUCOSE METER 184 mg/dL 70-110 H TESTED AT [facility] 6720 (BEAKER) (test code = [place] 1538) [address] BASIC METABOLIC [id number] 06:30:00 Test Item Value Reference Range Interpretation [...] NOT APPLICABLE FOR DIALYSIS PATIEN TS. PROTHROMBIN TIME/[id number] 06:25:00 Test Item Value Reference Range Interpretation [...] METER 129 mg/dL 70-110 H TESTED AT [place] [address] ([facility]) (test code = [place] Shabazz [facility] 1538) [address] POCT-GLUCOSE [id number] 17:06:00 Test Item Value Reference Range Interpretation Comments POC-GLUCOSE METER 155 mg/dL 70-110 H TESTED AT [facility] 6720 ([facility]) (test code = [facility] Mele [facility] 1538) [address] CBC W/PLT COUNT & AUTO [id number] 13:39:00 Test Item Value Reference Range Interpretation [...] 3438) Received comment: User comments: Slide comments:POCT-GLUCOSE [id number] 11:37:00 Test Item Value Reference Range Interpretation Comments POC-GLUCOSE METER 140 mg/dL 70-110 H TESTED AT [facility] 6720 (BEAKER) (test code = [place] 1538) [address] POCT-GLUCOSE [id number] 07:55:00 Test Item Value Reference Range Interpretation Comments POC-GLUCOSE METER 139 mg/dL 70-110 H TESTED AT [facility] 6720 (BEAKER) (test code = [place] 1538) [address] BASIC METABOLIC [id number] 05:47:00 Test Item Value Reference Range Interpretation [...] NOT APPLICABLE FOR DIALYSIS PATIEN TS. PROTHROMBIN TIME/[id number] 05:28:00 Test Item Value Reference Range Interpretation [...] METER 146 mg/dL 70-110 H TESTED AT [facility] 6720 ([email or web address]) (test code = TEX Shabazz [facility] 1538) [address] POCT-GLUCOSE [id number] 17:28:00 Test Item Value Reference Range Interpretation Comments POC-GLUCOSE METER 156 mg/dL 70-110 H TESTED AT [facility] 6720 ([facility]) (test code = TEX Shabazz [facility] 1538) [address] CBC W/PLT COUNT & AUTO [id number] 13:53:00 Test Item Value Reference Range Interpretation [...] 3438) Received comment: User comments: Slide comments:POCT-GLUCOSE [id number] 12:04:00 Test Item Value Reference Range Interpretation Comments POC-GLUCOSE METER 182 mg/dL 70-110 H TESTED AT [facility] 6720 (BEAKER) (test code = TEX Shabazz [facility] 1538) 35897 POCT-GLUCOSE [id number] 08:09:00 Test Item Value Reference Range Interpretation Comments POC-GLUCOSE METER 111 mg/dL 70-110 H TESTED AT [facility] 6720 (BEAKER) (test code = [facility] Mele [facility] 1538) [address] BASIC METABOLIC [id number] 07:02:00 Test Item Value Reference Range Interpretation [...] 0-100 H (test code = 700) PROTHROMBIN [id number] 06:39:00 Test Item Value Reference Range Interpretation [...] METER 162 mg/dL 70-110 H TESTED AT [place] [address] ([facility]) (test code = [facility] 1538) 8[address] POCT-GLUCOSE [id number] 18:15:00 Test Item Value Reference Range Interpretation Comments POC-GLUCOSE METER 127 mg/dL 70-110 H TESTED AT [place] [address] ([facility]) (test code = [facility] 1538) [address] BASIC METABOLIC [id number] 08:18:00 Test Item Value Reference Range Interpretation [...] I S NOT APPLICABLE FOR DIALYSIS PATIEN [id number] 08:18:00 Test Item Value Reference Range Interpretation [...] 0-0 (BEAKER) (test code = 413) POCT-GLUCOSE [id number] 05:58:00 Test Item Value Reference Range Interpretation Comments POC-GLUCOSE METER 153 mg/dL 70-110 H TESTED AT [facility] 6720 (BEAKER) (test code = [place] 1538) [address] POCT-GLUCOSE [id number] 23:35:00 Test Item Value Reference Range Interpretation Comments POC-GLUCOSE METER 170 mg/dL 70-110 H TESTED AT [place] [address] ([facility] (test code = TEX Shabazz [facility] 1538) [address] POCT-GLUCOSE [id number] 17:28:00 Test Item Value Reference Range Interpretation Comments POC-GLUCOSE METER 155 mg/dL 70-110 H TESTED AT [place] [address] ([facility]) (test code = TEX Shabazz [facility] 1538) 17261 HEMOGLOBIN AND [id number] 17:16:00 Test Item Value Reference Range Interpretation Comments HEMOGLOBIN (BEAKER) (test code = 7.9 GM/DL 13.7-17.5 L 410) HEMATOCRIT (BEAKER) (test code = 24.9 % 40.1-51.0 L 411) BLOOD [id number] 13:01:00 Test Item Value Reference Range Interpretation Comments CULTURE (BEAKER) (test No growth in 5 days code = 1095) BLOOD [id number] 13:00:00 Test Item Value Reference Range Interpretation Comments CULTURE (BEAKER) (test No growth in 5 days code = 1095) POCT-GLUCOSE [id number] 11:55:00 Test Item Value Reference Range Interpretation Comments POC-GLUCOSE METER 157 mg/dL 70-110 H TESTED AT [place] [address] ([facility]) (test code = [facility] Mele [facility] 1538) [address] ANTI-MITOCHONDRIAL AB, REFLEX TO [id number] 10:22:00 Test Item Value Reference Range Interpretation Comments SCAN RESULT (test code = 5650766) POCT-GLUCOSE [id number] 05:46:00 Test Item Value Reference Range Interpretation Comments POC-GLUCOSE METER 161 mg/dL 70-110 H TESTED AT [place] [address] ([facility]) (test code = [facility] Mele [facility] 1538) [address]86 HEPATIC FUNCTION [id number] 04:08:00 Test Item Value Reference Range Interpretation [...] (test code = 30 U/L 6-55 347) [id number] 04:03:00 Test Item Value Reference Range Interpretation Comments PHOSPHORUS (BEAKER) (test code = 2.4 mg/dL 2.3-4.7 604) Check Serum Phosphorus level 4 hours after IV phosphorus replacement or 8 hours after PO replacementcompleted.[id number] 04:03:00 Test Item Value Reference Range Interpretation Comments MAGNESIUM (BEAKER) (test code = 2.5 mg/dL 1.6-2.6 627) Check Serum Phosphorus level 4 hours after IV phosphorus replacement or 8 hours after PO replacementcompleted.BASIC METABOLIC [id number] 04:03:00 Test Item Value Reference Range Interpretation [...] after PO replacementcompleted.CBC W/PLT COUNT & AUTO [id number] 03:47:00 Test Item Value Reference Range Interpretation [...] (BEAKER) (test code = 2801) HEMOGLOBIN AND [id number] 03:46:00 Test Item Value Reference Range Interpretation Comments HEMOGLOBIN (BEAKER) (test code = 7.7 GM/DL 13.7-17.5 L 410) HEMATOCRIT (BEAKER) (test code = 24.8 % 40.1-51.0 L 411) POCT-GLUCOSE [id number] 01:04:00 Test Item Value Reference Range Interpretation Comments POC-GLUCOSE METER 150 mg/dL 70-110 H TESTED AT [facility] 6720 [facility] (test code = [facility] 1538) [address] SPUTUM CULTURE + GRAM [id number] 19:57:00 Test Item Value Reference Range Interpretation Comments CULTURE (BEAKER) No growth (test code = 1095) GRAM STAIN RESULT 4+ WBCs (BEAKER) (test code = 1123) GRAM STAIN RESULT 0-5 epithelial cells (BEAKER) (test code = 37051) GRAM STAIN RESULT <1+ gram positive cocci (BEAKER) (test code = in pairs 04614) HEMOGLOBIN AND [id number] 16:09:00 Test Item Value Reference Range Interpretation Comments HEMOGLOBIN (BEAKER) (test code = 7.8 GM/DL 13.7-17.5 L 410) HEMATOCRIT (BEAKER) (test code = 25.1 % 40.1-51.0 L 411) POCT-GLUCOSE [id number] 16:06:00 Test Item Value Reference Range Interpretation Comments POC-GLUCOSE METER 143 mg/dL 70-110 H TESTED AT [place] [address] ([facility]) (test code = [facility] 1538) [address]73 POCT-GLUCOSE [id number] 11:55:00 Test Item Value Reference Range Interpretation Comments POC-GLUCOSE METER 148 mg/dL 70-110 H TESTED AT [place] [address] ([facility]) (test code = [facility] 1538) [address]792 RAD, ABDOMEN/KUB, 1 VIEW [id number] 10:26:00Reason for exam:->Check position of NGTFINAL REPORT [...] MDReport Verified Date/Time: 03/07/2018 10:26:54 Reading Location: [facility] [address] B[address] Transitional Reading Room HEPATIC FUNCTION [id number] 09:14:00 Test Item Value Reference Range Interpretation [...] 6-55 347) CBC W/PLT COUNT & AUTO [id number] 06:53:00 Test Item Value Reference Range Interpretation [...] PERCENT (BEAKER) (test code = 2801) POCT-GLUCOSE [id number] 06:23:00 Test Item Value Reference Range Interpretation Comments POC-GLUCOSE METER 125 mg/dL 70-110 H TESTED AT [facility] 6720 (BEAKER) (test code = [place] 1538) [address] [id number] 05:53:00 Test Item Value Reference Range Interpretation Comments PHOSPHORUS (BEAKER) (test code = 2.7 mg/dL 2.3-4.7 604) Check Serum Phosphorus level 4 hours after IV phosphorus replacement or 8 hours after PO replacementcompleted.[id number] 05:53:00 Test Item Value Reference Range Interpretation Comments MAGNESIUM (BEAKER) (test code = 2.6 mg/dL 1.6-2.6 627) Check Serum Phosphorus level 4 hours after IV phosphorus replacement or 8 hours after PO replacementcompleted.BASIC METABOLIC [id number] 05:53:00 Test Item Value Reference Range Interpretation [...] or 8 hours after PO replacementcompleted.HEMOGLOBIN AND [id number] 05:29:00 Test Item Value Reference Range Interpretation Comments HEMOGLOBIN (BEAKER) (test code = 8.0 GM/DL 13.7-17.5 L 410) HEMATOCRIT (BEAKER) (test code = 26.1 % 40.1-51.0 L 411) HEMOGLOBIN AND [id number] 23:58:00 Test Item Value Reference Range Interpretation Comments HEMOGLOBIN (BEAKER) (test code = 6.8 GM/DL 13.7-17.5 L 410) HEMATOCRIT (BEAKER) (test code = 22.5 % 40.1-51.0 L 411) MRSA [id number] 23:57:00 Test Item Value Reference Range Interpretation Comments CULTURE (BEAKER) (test code No MRSA isolated = 1095) POCT-GLUCOSE [id number] 22:48:00 Test Item Value Reference Range Interpretation Comments POC-GLUCOSE METER 168 mg/dL 70-110 H TEST[facility] AT [facility] 6720 ([facility] (test code = TEX Sh[place]azz [facility] 1538) [address] POCT-GLUCOSE [id number] 18:01:00 Test Item Value Reference Range Interpretation Comments POC-GLUCOSE METER 162 mg/dL 70-110 H TESTED AT [place] [address] ([facility]) (test [facility] = [facility] 1538) [address] HEMOGLOBIN AND [id number] 12:49:00 Test Item Value Reference Range Interpretation Comments HEMOGLOBIN (BEAKER) (test code = 7.4 GM/DL 13.7-17.5 L 410) HEMATOCRIT (BEAKER) (test code = 23.9 % 40.1-51.0 L 411) STOOL CULTURE + SHIGA [id number] 10:14:00 Test Item Value Reference Range Interpretation Comments CULTURE ([facility]) No Salmonella, Shigella (test code = 1095) or Campylobacter isolated POCT-GLUCOSE [id number] 09:55:00 Test Item Value Reference Range Interpretation Comments POC-GLUCOSE METER 143 mg/dL 70-110 H TESTED AT [place] [address] ([facility]) (test code = [facility] 1538) [address] CBC W/PLT COUNT & AUTO [id number] 07:15:00 Test Item Value Reference Range Interpretation Comments WHITE BLOOD CELL COUNT (BEAKER) 4.5 K/ L 3.5-10.5 (test code = 775) RED BLOOD CELL COUNT (AKER) 2.16 M/ L 4.63-6.08 L (test code [...] 0-1 PERCENT (BEAKER) (test code = 2801) [id number] 05:47:00 Test Item Value Reference Range Interpretation Comments PHOSPHORUS (BEAKER) (test code = 2.8 mg/dL 2.3-4.7 604) Check Serum Phosphorus level 4 hours after IV phosphorus replacement or 8 hours after PO replacementcompleted.[id number] 05:47:00 Test Item Value Reference Range Interpretation Comments MAGNESIUM (BEAKER) (test code = 2.6 mg/dL 1.6-2.6 627) Check Serum Phosphorus level 4 hours after IV phosphorus replacement or 8 hours after PO replacementcompleted.BASIC METABOLIC [id number] 05:47:00 Test Item Value Reference Range Interpretation [...] after PO replacementcompleted.RAD, CHEST, 1 VIEW, NON [id number] 05:00:00 Reason for exam:->resp failureShould this be [...] Jha Verified Date/Time: 03/06/2018 05:00:57 Reading Location: [address] Transitional Reading Room POCT-GLUCOSE [id number] 04:50:00 Test Item Value Reference Range Interpretation Comments POC-GLUCOSE METER 133 mg/dL 70-110 H TESTED AT [facility] 6720 (BEAKER) (test code = [place] 1538) [address] HEMOGLOBIN AND [id number] 23:14:00 Test Item Value Reference Range Interpretation Comments HEMOGLOBIN (BEAKER) (test code = 7.1 GM/DL 13.7-17.5 L 410) HEMATOCRIT (BEAKER) (test code = 23.5 % 40.1-51.0 L 411) POCT-GLUCOSE [id number] 23:12:00 Test Item Value Reference Range Interpretation Comments POC-GLUCOSE METER 146 mg/dL 70-110 H TESTED AT [place] [address] (BEAKER) (test code = [facility] [place] 1538) [address] POCT-GLUCOSE [id number] 22:11:00 Test Item Value Reference Range Interpretation Comments POC-GLUCOSE METER 164 mg/dL 70-110 H TESTED AT [place] [address] (BEAKER) (test code = [facility] [place] 1538) [address] HEMOGLOBIN AND [id number] 18:51:00 Test Item Value Reference Range Interpretation Comments HEMOGLOBIN (BEAKER) (test code = 7.3 GM/DL 13.7-17.5 L 410) HEMATOCRIT (BEAKER) (test code = 23.8 % 40.1-51.0 L 411) POCT-GLUCOSE [id number] 17:35:00 Test Item Value Reference Range Interpretation Comments POC-GLUCOSE METER 169 mg/dL 70-110 H TESTED AT [place] [address] ([facility] (test code = [facility] 1538) [address] OCCULT BLOOD, [id number] 16:20:00 Test Item Value Reference Range Interpretation Comments FECAL OCCULT BLOOD (BEAKER) (test Positive Negative A code = 618) HEPATIC FUNCTION [id number] 13:39:00 Test Item Value Reference Range Interpretation [...] = 14 U/L 6-55 347) BASIC METABOLIC [id number] 13:39:00 Test Item Value Reference Range Interpretation [...] APPLICABLE FOR DIALYSIS PATIEN TS. VANCOMYCIN LEVEL, [id number] 13:35:00 Test Item Value Reference Range Interpretation Comments VANCOMYCIN RANDOM (BEAKER) (test 10.1 ug/mL code = 523) Reference Range: No NormalsHEMOGLOBIN AND [id number] 12:47:00 Test Item Value Reference Range Interpretation Comments HEMOGLOBIN (BEAKER) (test code = 7.3 GM/DL 13.7-17.5 L 410) HEMATOCRIT (BEAKER) (test code = 23.7 % 40.1-51.0 L 411) POCT-GLUCOSE [id number] 12:14:00 Test Item Value Reference Range Interpretation Comments POC-GLUCOSE METER 189 mg/dL 70-110 H TESTED AT [facility] 6720 ([facility]) (test code = [place] 1538) [address] ANTI-NUCLEAR ANTIBODY (STEPHY)2018-03-05 10:39:00 Test Item Value Reference Range Interpretation Comments ANTI-NUCLEAR ANTIBODY (STEPHY) (BEAKER) Negative Negative (test code = 418) Test performed by IFA method.Test performed by IFA method.B-TYPE NATRIURETIC FACTOR (BNP)2018-03-05 08:21:00 Test Item Value Reference Range Interpretation Comments B-TYPE NATRIURETIC PEPTIDE (BEAKER) 222 pg/mL 0-100 H (test code = 700) [id number] 08:07:00 Test Item Value Reference Range Interpretation Comments AMMONIA (BEAKER) (test code = 348) 38 mol/L 18-72 RAD, CHEST, 1 VIEW, NON [id number] 06:28:00Reason for exam:->resp failureShould this be performed at the bedside?->YesFINAL REPORT RAD, CHEST, 1 VIEW, NON DEPT INDICATION: resp failure COMPARISON: Prior day's exam FINDINGS: Portable frontal view of the chest. IMPRESSION: Support Lines: Stable. Lungs and pleura: Unchanged airspace and pleural opacities. No pneumothorax.Heart and mediastinum: Stable contours. Stable surgical changes.Additional findings: None. Signed: David Jha Verified Date/Time: 03/05/2018 06:28:24 Reading Location: [address] Transitional Reading Room SHIGA TOXIN [id number] 06:12:00 Test Item Value Reference Range Interpretation Comments SHIGA TOXIN 1 (BEAKER) (test Not detected Not detected code = 2177) SHIGA TOXIN 2 (BEAKER) (test Not detected Not detected code = 2179) CBC W/PLT COUNT & AUTO [id number] 05:32:00 Test Item Value Reference Range Interpretation [...] (BEAKER) (test code = 2801) BASIC METABOLIC [id number] 05:31:00 Test Item Value Reference Range Interpretation [...] or 8 hours after PO replacementcompleted.BLOOD GAS, [id number] 05:29:00 Test Item Value Reference Range Interpretation [...] (BEAKER) (test code = 1819) 30.0 % [id number] 05:28:00 Test Item Value Reference Range Interpretation Comments PHOSPHORUS (BEAKER) (test code = 2.4 mg/dL 2.3-4.7 604) Check Serum Phosphorus level 4 hours after IV phosphorus replacement or 8 hours after PO replacementcompleted.[id number] 05:28:00 Test Item Value Reference Range Interpretation Comments MAGNESIUM (BEAKER) (test code = 2.8 mg/dL 1.6-2.6 H 627) Check Serum Phosphorus level 4 hours after IV phosphorus replacement or 8 hours after PO replacementcompleted.POCT-GLUCOSE [id number] 04:14:00 Test Item Value Reference Range Interpretation Comments POC-GLUCOSE METER 164 mg/dL 70-110 H TESTED AT [facility] 6720 (BEAKER) (test code = [place] 1538) [address] POCT-GLUCOSE [id number] 21:41:00 Test Item Value Reference Range Interpretation Comments POC-GLUCOSE METER 161 mg/dL 70-110 H TESTED AT [facility] 6720 ([facility] (test code = [place] 1538) [address] POCT-GLUCOSE [id number] 17:49:00 Test Item Value Reference Range Interpretation Comments POC-GLUCOSE METER 163 mg/dL 70-110 H TESTED AT [facility] 6720 ([facility]) (test code = TEX Sh[place]azz [facility] 1538) [address] CT, [id number] 16:57:00FINAL REPORT CT of the abdomen and [...] MDReport Verified Date/Time: 03/04/2018 16:57:24 Reading Location: [facility] [address] [address] CT Body Reading Room Sunita ctronically signed by: SHAMA MELENDEZ M.D. on 03/04/2018 04:57 PMSTOOL PATH CHARGE 2018-03-04 14:52:00 Test Item Value Reference Range Interpretation Comments PATHOGEN EXAM CHARGED (BEAKER) (test Done code = 4629) BASIC METABOLIC [id number] 12:28:00 Test Item Value Reference Range Interpretation [...] APPLICABLE FOR DIALYSIS PATIEN TS. HEMOGLOBIN AND [id number] 12:08:00 Test Item Value Reference Range Interpretation Comments HEMOGLOBIN (BEAKER) (test code = 8.2 GM/DL 13.7-17.5 L 410) HEMATOCRIT (BEAKER) (test code = 26.2 % 40.1-51.0 L 411) POCT-GLUCOSE [id number] 11:16:00 Test Item Value Reference Range Interpretation Comments POC-GLUCOSE METER 159 mg/dL 70-110 H TESTED AT [facility] 6720 (BEAKER) (test code = TEX HYDE [place] 1538) [address] LACTIC ACID, ARTERIAL, WHOLE [id number] 10:35:00 Test Item Value Reference Range Interpretation Comments LACTATE BLOOD ARTERIAL (2) 0.7 mmol/L 0.5-2.2 (BEAKER) (test code = 2874) [id number] 08:12:00 Test Item Value Reference Range Interpretation Comments AMMONIA (BEAKER) (test code = 348) 44 mol/L 18-72 RAD, CHEST, 1 VIEW, NON [id number] 05:12:00Reason for exam:->resp failureShould this be performed [...] Stable surgical changes.Additional findings: None. Signed: David Jhaort Verified Date/Time: 03/04/2018 05:12:43 Reading Location: [address] Transitional Reading Room BASIC METABOLIC PANEL [...] S NOT APPLICABLE FOR DIALYSIS PATIEN TS. [id number] 04:55:00 Test Item Value Reference Range Interpretation Comments MAGNESIUM (BEAKER) (test code = 3.1 mg/dL 1.6-2.6 H 627) CBC W/PLT COUNT & AUTO [id number] 04:38:00 Test Item Value Reference Range Interpretation [...] (BEAKER) (test code = 2801) BLOOD GAS, [id number] 04:23:00 Test Item Value Reference Range Interpretation [...] (test code = 1819) 40.0 % POCT-GLUCOSE [id number] 22:12:00 Test Item Value Reference Range Interpretation Comments POC-GLUCOSE METER 171 mg/dL 70-110 H TESTED AT [facility] 6720 (BEAKER) (test code = TEX Shabazz [facility] 1538) [address] TROPONIN [id number] 22:08:00 Test Item Value Reference Range Interpretation [...] neurological disease, and persistent tachyarrhythmia.HEPATITIS A ANTIBODY, [id number] 20:40:00 Test Item Value Reference Range Interpretation Comments HEPATITIS A IGG ANTIBODY (BEAKER) Reactive Nonreactive A (test code = 2797) ALPHA FETOPROTEIN (AFP), TUMOR [id number] 20:40:00 Test Item Value Reference Range Interpretation Comments ALPHA-FETOPROTEIN (BEAKER) (test code < ng/mL <10.0 = 1094) CARCINOEMBRYONIC ANTIGEN (CEA)2018-03-03 20:36:00 Test Item Value Reference Range Interpretation Comments CARCINOEMBRYONIC ANTIGEN (BEAKER) 2.2 ng/mL 0.0-5.0 (test code = 685) HEPATITIS B CORE ANTIBODY, [id number] 20:36:00 Test Item Value Reference Range Interpretation Comments HEPATITIS B CORE TOTAL ANTIBODY Nonreactive Nonreactive (BEAKER) (test code = 497) HEPATITIS B SURFACE [id number] 20:23:00 Test Item Value Reference Range Interpretation Comments HEPATITIS B SURFACE ANTIBODY < mIU/mL <8.0 (BEAKER) (test code = 647) HEPATITIS B SURFACE [id number] 20:22:00 Test Item Value Reference Range Interpretation Comments HEPATITIS B SURFACE ANTIGEN (2) Nonreactive Nonreactive (BEAKER) (test code = 2585) HEPATITIS C [id number] 20:22:00 Test Item Value Reference Range Interpretation Comments HEPATITIS C ANTIBODY (BEAKER) Nonreactive Nonreactive (test code = 367) POCT-GLUCOSE [id number] 19:30:00 Test Item Value Reference Range Interpretation Comments POC-GLUCOSE METER 169 mg/dL 70-110 H TESTED AT [facility] 6720 [facility] (test code = TEX Shabazz [facility] 1538) [address] RAD, CHEST, 1 VIEW, NON [id number] 19:12:00Reason for exam:- >intubatedShould this be performed [...] MDReport Verified Date/Time: 03/03/2018 19:12:40 Reading Location: [address] Reading Room FECAL [id number] 18:56:00 Test Item Value Reference Range Interpretation Comments FECAL LEUKOCYTES No fecal leukocytes No fecal leukocytes (BEAKER) (test code = seen seen 992) RAD, ABDOMEN/KUB, 1 VIEW [id number] 18:41:00Reason for exam:->NGT placement FINAL REPORT Abdomen date 03/03/2018 Comment: Frontal view of the abdomen demonstrates a nasogastric tube present with tip noted in the in the body of the stomach. Signed: Israel Barr MDReport Verified Date/Time: 03/03/2018 18:41:41 Reading Location: [place] [id number] Consult ReadingRoom FERRITIN 2018-03-03 18:13:00 Test Item Value Reference Range Interpretation Comments FERRITIN (BEAKER) (test code = 361) 28 ng/mL 5-275 TROPONIN [id number] 17:26:00 Test Item Value Reference Range Interpretation [...] acute neurological disease, and persistent tachyarrhythmia.HEPATIC FUNCTION [id number] 17:19:00 Test Item Value Reference Range Interpretation [...] 20-55 (test code = 2590) BASIC METABOLIC [id number] 17:19:00 Test Item Value Reference Range Interpretation [...] DIALYSIS PATIEN TS. Specimen slightly ictericHEMOGLOBIN AND [id number] 17:15:00 Test Item Value Reference Range Interpretation Comments HEMOGLOBIN (BEAKER) (test code = 8.3 GM/DL 13.7-17.5 L 410) HEMATOCRIT (BEAKER) (test code = 25.7 % 40.1-51.0 L 411) PROTHROMBIN [id number] 16:53:00 Test Item Value Reference Range Interpretation Comments PROTIME (BEAKER) (test code = 16.1 seconds 11.7-14.7 H 759) INR (BEAKER) (test code = 370) 1.3 <=5.9 RECOMMENDED COUMADIN/WARFARIN INR THERAPY RANGESSTANDARD DOSE: 2.0 - 3.0 Includes: PROPHYLAXIS forvenous thrombosis, systemic embolization; TREATMENT for venous thrombosis and/or pulmonary embolus.HIGH RISK: Target INR is 2.5-3.5 for patients with mechanical heart valves.[id number] 16:53:00 Test Item Value Reference Range Interpretation Comments FIBRINOGEN LEVEL (BEAKER) (test 333 mg/dl 225-434 code = 658) [id number] 16:51:00 Test Item Value Reference Range Interpretation Comments PROCALCITONIN (BEAKER) (test code = < ng/mL <0.05 3036) SEPSIS RISK (ng/mL)Low: 0.05-0.50Intermediate: 0.51-2.00High: >=2.01BLOOD GAS, [id number] 16:07:00 Test Item Value Reference Range Interpretation [...] = 1819) 60.0 % EEG AWAKE AND [id number] 14:50:00Reason for exam:->altered mental statusEEG REPORT: [facility] Arriaga[facility] Date of EEDate of report: EEG start time: 1216EEG end time: 1237EEG #: [id number] No: [id number] ICD Code: #: R41.82 Altered mental status, unspecified (ICD 9: 780.97)CPT Code: #: 88664: 03. EEG coma or sleep only; 20-40 [...] also be associated withother settings of widespread DISPATCHER TUGBO[place] insults, including the aftermath of prolonged seizures. Intermittent attenuations reflect cortical suppression.Clinical Fellow: Henri YañezNeurophysiologist: Wil Mathias POCT-LACTIC ACID, [id number] 14:13:00 Test Item Value Reference Range Interpretation Comments POC-LACTIC ACID, 1.2 mmol/L 0.4-1.3 TESTED AT [facility] 6720 ARTERIAL (BEAKER) MYRNA ART [place] (test code = 2804) [address] POCT-BLOOD GASES, [id number] 14:13:00 Test Item Value Reference Range Interpretation Comments TEMP, CELSIUS-POC 37.0 (BEAKER) (test code = 1834) FIO2-POC (BEAKER) TESTED AT [place] [address] (test code = 1835) MYRNA Cedeño [facility] [address] PH, ARTERIAL-POC 7.496 7.350-7.450 H (BEAKER) (test [...] -2.0-3.0 ARTERIAL-POC (BEAKER) (test code = 1841) [id number] 14:13:00 Test Item Value Reference Range Interpretation Comments POC-SODIUM (BEAKER) 151 meq/L 135-148 H TESTED A T [place] [address] (test code = 1542) [place] [address] [id number] 14:13:00 Test Item Value Reference Range Interpretation Comments POC-POTASSIUM 3.7 meq/L 3.6-5.[address] [facility] 6720 (BEAKER) (test code [facility] [address] = 1540) [id number] 14:13:00 Test Item Value Reference Range Interpretation Comments POC-GLUCOSE (BEAKER) 170 mg/dL 70-110 H TESTED AT [place] [address] (test code = 1855) [place] [address] POCT-CALCIUM [id number] 14:13:00 Test Item Value Reference Range Interpretation Comments POC-CALCIUM IONIZED 1.20 mmol/L 1.12-1.27 TESTED A T [place] [address] (BEAKER) (test code = TEX Shabazz [facility] 1536) [address] [id number] 14:13:00 Test Item Value Reference Range Interpretation Comments POC-HEMATOCRIT 24 % 40-50 L TESTED AT [place] [address] ([facility] (test code = [facility] Mele [facility] [address] 7834) [id number] 14:13:00 Test Item Value Reference Range Interpretation Comments POC-HEMOGLOBIN 8.2 g/dL 13.0-16.8 L TESTED AT [place] [address] ([facility]) (test code = [facility] Mele [facility] 1856) [id number] AT [place] [address] MYRNA [facility] [place] [address] VITAMIN B12 AND [id number] 13:00:00 Test Item Value Reference Range Interpretation Comments VITAMIN B12 (BEAKER) (test code = 715 pg/mL 213816 774) FOLATE (BEAKER) (test code = 362) 17.0 ng/mL >=7.0 POCT-GLUCOSE [id number] 12:55:00 Test Item Value Reference Range Interpretation Comments POC-GLUCOSE METER 190 mg/dL 70-110 H TESTED AT [place] [address] ([facility]) (test code = [facility] Mele [facility] 1538) [address] [id number] 11:41:00 Test Item Value Reference Range Interpretation Comments PROCALCITONIN (BEAKER) (test code = < ng/mL <0.05 3036) SEPSIS RISK (ng/mL)Low: 0.05-0.50Intermediate: 0.51-2.00High: >=2.01URINALYSIS W/ REFLEX URINE [id number] 11:27:00 Test Item Value Reference Range Interpretation [...] (test code = 2795) TSH/FREE T4 IF [id number] 11:19:00 Test Item Value Reference Range Interpretation Comments THYROID STIMULATING HORMONE 2.67 uIU/mL 0.35-4.94 (BEAKER) (test code = 772) TROPONIN [id number] 11:04:00 Test Item Value Reference Range Interpretation [...] failure, acidosis, acute neurological disease, and persistent tachyarrhythmia.[id number] 11:00:00 Test Item Value Reference Range Interpretation Comments SODIUM (BEAKER) (test code = 381) 148 meq/L 136-145 H HEMOGLOBIN [id number] 10:53:00 Test Item Value Reference Range Interpretation Comments HEMOGLOBIN A1C (BEAKER) (test code = 6.2 % 4.3-6.1 H 368) [id number] 10:45:00 Test Item Value Reference Range Interpretation Comments AMMONIA (BEAKER) (test code = 348) 98 mol/L 18-72 H C. DIFFICILE GDH [id number] 09:57:00 Test Item Value Reference Range Interpretation Comments CDT TOXIN (test code Negative Negative = [id number]) CDT GDH ANTIGEN Positive Negative A C. difficile present but (test code = toxin not detec vikki. [id number]) Indicates colon ization with non-toxige amberly strain or level of tox in below detectable leve ls. No need for enteri c isolation. All atment is rarely needed ( only when strong clinical suspicion for Clostridium difficile infection) Testing performed by [employer] Rapid Cassette Assay. For GDH, published sensitivity of the assay is 98.7% compared to cytotoxicity testing. For Toxin AB, published sensitivity is 87.8% and specificity 99.4% compared to cytotoxicity testing.Verification of kit performance was done by the [facility] Microbiology Lab prior to clinical use.BASIC METABOLIC [id number] 07:28:00 Test Item Value Reference Range Interpretation [...] pg/mL 0-100 H (test code = 700) [id number] 06:52:00 Test Item Value Reference Range Interpretation Comments PHOSPHORUS (BEAKER) (test code = 2.3 mg/dL 2.3-4.7 604) [id number] 06:52:00 Test Item Value Reference Range Interpretation [...] code = 413) MR, MRA, BRAIN, WITHOUT [id number] 05:21:00Reason for exam:->Ischemic Stroke EvaluationFINAL REPORT MRI Brain without contrast Clinical History: Ischemic Stroke EvaluationAMS, Afib Technique: MRI of the brain utilizing axial T2, FLAIR, GRE, DWI; sagittal and coronal T1-weighted images. MRA of the head utilizing 3-D zbiw-ki-dddgmx technique, with 3-D reconstructions. MRA of the neck utilizing 2-D and 3-D fvdv-fz-jkbtez technique, with 3-D reconstructions. Comparisons: None Findings:MRI [...] MRA head: No evidence for a major [place] proximal branch vessel occlusion. [...] MDReport Verified Date/Time: 03/03/2018 05:21:46 Reading Location: [address] Transitional Reading Room MR, MRA, NECK, WITHOUT IV [id number] 05:21:00 Reason for exam:->Ischemic Stroke EvaluationFINAL REPORT MRI Brain without contrast Clinical History: Ischemic Stroke Eval uationAMS, Afib Technique: MRI of the brain utilizing axial T2, FLAIR, GRE, DWI; sagittal and coronal T1-weighted images. MRA of the head utilizing 3-D lbsd-cm-eovbei technique, with 3-D reconstructions. MRA of the neck utilizing 2- D and 3-D ctci-jf-amsmcs technique, with 3-D reconstructions. Comparisons: None Findings:MRI [...] MRA head: No evidence for a major [place] proximal branch vessel occlusion. [...] Jha Verified Date/Time: 03/03/2018 05:21:46 Reading Location: [facility] Transitional Reading Room MR, BRAIN, WITHOUT [id number] 05:21:00Reason for exam:->Ischemic Stroke EvaluationFINAL REPORT MRI Brain without contrast Clinical History: Ischemic Stroke EvaluationAMS, Afib Technique: MRI of the brain utilizing axial T2, FLAIR, GRE, DWI; sagittal and coronal T1-weighted images. MRA of the head utilizing 3-D wjba-ht-imkmyo technique, with 3-D reconstructions. MRA of the neck utilizing 2-D and 3-D fqcx-og-jyxntn technique, with 3-D reconstructions. Comparisons: None Findings:MRI [...] MRA head: No evidence for a major [place] proximal branch vessel occlusion. [...] Jha Verified Date/Time: 03/03/2018 05:21:46 Reading Location: [address] Reading Room POCT-GLUCOSE [id number] 05:15:00 Test Item Value Reference Range Interpretation Comments POC-GLUCOSE METER 207 mg/dL 70-110 H TESTED AT [facility] 6720 (BEAKER) (test code = [place] 1538) [address] RAD, CHEST, 1 VIEW, NON [id number] 01:11:00Reason for exam:->AMSShould this be performed at [...] MDReport Verified Date/Time: 03/03/2018 01:11:47 Reading Location: [address] Reading Room URINALYSIS WITH MICROSCOPIC IF [id number] 00:58:00 Test Item Value Reference Range Interpretation [...] 463) SOURCE(BEAKER) (test code = 2795) URINALYSIS [id number] 00:58:00 Test Item Value Reference Range Interpretation Comments RBC UA (BEAKER) (test code = 519) 1 /HPF WBC UA (BEAKER) (test code = 520) 1 /HPF SQUAMOUS EPITHELIAL (BEAKER) (test < /HPF code = 516) AMORPHOUS CRYSTALS (BEAKER) (test Occasional code = 1584) CT, BRAIN/STROKE [id number] 23:16:00FINAL REPORT CT Head without contrast CLINICAL [...] Jha Verified Date/Time: 03/02/2018 23:16:55 Reading Location: [address] Reading Room IC ACID, VENOUS, WHOLE [id number] 22:01:00 Test Item Value Reference Range Interpretation Comments LACTATE BLOOD VENOUS (2) (BEAKER) 1.6 mmol/L 0.5-2.2 (test code = 2872) POCT-GLUCOSE [id number] 21:31:00 Test Item Value Reference Range Interpretation Comments POC-GLUCOSE METER 207 mg/dL 70-110 H TESTED AT [facility] 6720 (BEAKER) (test code = TEX Shabazz [place] 1538) [address] OCCULT BLOOD, [id number] 19:48:00 Test Item Value Reference Range Interpretation Comments FECAL OCCULT BLOOD (BEAKER) (test Positive Negative A code = 618) BASIC METABOLIC [id number] 17:26:00 Test Item Value Reference Range Interpretation [...] APPLICABLE FOR DIALYSIS PATIEN TS. HEMOGLOBIN AND [id number] 17:09:00 Test Item Value Reference Range Interpretation Comments HEMOGLOBIN (BEAKER) (test code = 8.2 GM/DL 13.7-17.5 L 410) HEMATOCRIT (BEAKER) (test code = 25.7 % 40.1-51.0 L 411) POCT-GLUCOSE [id number] 16:40:00 Test Item Value Reference Range Interpretation Comments POC-GLUCOSE METER 212 mg/dL 70-110 H TESTED AT [facility] 6720 (BEAKER) (test code = TEX [place] 1538) [address] CT, BRAIN, WITHOUT [id number] 12:26:00FINAL REPORT CT head without contrast 03/02/2018 [...] Gaona Verified Date/Time: 03/02/2018 12:26:23 Reading Location: [address] Neuro Reading Room HEMOGLOBIN AND [id number] 12:14:00 Test Item Value Reference Range Interpretation Comments HEMOGLOBIN (BEAKER) (test code = 8.3 GM/DL 13.7-17.5 L 410) HEMATOCRIT (BEAKER) (test code = 25.9 % 40.1-51.0 L 411) POCT-GLUCOSE [id number] 10:26:00 Test Item Value Reference Range Interpretation Comments POC-GLUCOSE METER 178 mg/dL 70-110 H TESTED AT [facility] 6720 (BEAKER) (test code = DYLANCARLOTTA Shabazz [facility] 1538) [address] [id number] 05:10:00 Test Item Value Reference Range Interpretation Comments MAGNESIUM (BEAKER) (test code = 2.2 mg/dL 1.6-2.6 627) BASIC METABOLIC [id number] 05:10:00 Test Item Value Reference Range Interpretation [...] 0-0 (test code = 413) BASIC METABOLIC [id number] 06:30:00 Test Item Value Reference Range Interpretation [...] PATIEN TS. CBC W/PLT COUNT & AUTO [id number] 06:30:00 Test Item Value Reference Range Interpretation [...] = 2801) RAD, CHEST, 1 VIEW, NON [id number] 04:10:00post-operative day 1Reason for exam:->chfShould this be [...] Jha Verified Date/Time: 09/11/2017 04:10:08 Reading Location: [address] Reading Room BASIC METABOLIC PANEL 2017-09-11 [...] Specimen slightly ictericCBC W/PLT COUNT & AUTO [id number] 03:48:00 Test Item Value Reference Range Interpretation [...] 0-1 PERCENT (BEAKER) (test code = 2801) [id number] 16:36:00 Test Item Value Reference Range Interpretation Comments ACTIVATED CLOTTING TIME 142 sec TEST ED AT [place] [address] ([facility]) (test code = TEX Shabazz [place] [address]) [address] [id number] 16:02:00 Test Item Value Reference Range Interpretation Comments ACTIVATED CLOTTING TIME 279 sec TEST ED AT [place] [address] ([facility]) (test code = [facility] Mele [place] [address]) [address] [id number] 16:02:00 Test Item Value Reference Range Interpretation Comments ACTIVATED CLOTTING TIME 252 sec TEST ED AT [place] [address] ([facility]) (test code = [place] [address]) [address] B-TYPE NATRIURETIC FACTOR (BNP)2017-08-24 15:17:00 Test Item Value Reference Range Interpretation Comments B-TYPE NATRIURETIC PEPTIDE (BEAKER) 170 pg/mL 0-100 H (test code = 700) BASIC METABOLIC [id number] 15:08:00 Test Item Value Reference Range Interpretation [...] APPLICABLE FOR DIALYSIS PATIEN TS. Specimen slightly [id number] 15:08:00 Test Item Value Reference Range Interpretation Comments ALBUMIN (BEAKER) (test code = 1145) 4.2 g/dL 3.5-5.0 PROTHROMBIN [id number] 14:59:00 Test Item Value Reference Range Interpretation [...] (BEAKER) (test code = 2801) BASIC METABOLIC [id number] 06:31:00 Test Item Value Reference Range Interpretation [...] APPLICABLE FOR DIALYSIS PATIEN TS. URINALYSIS W/ [id number] 17:39:00 Test Item Value Reference Range Interpretation [...] SOURCE(BEAKER) (test code Urine, Clean Catch = 4048) BASIC METABOLIC [id number] 05:57:00 Test Item Value Reference Range Interpretation [...] PATIEN TS. CBC W/PLT COUNT & AUTO [id number] 05:36:00 Test Item Value Reference Range Interpretation [...] (BEAKER) (test code = 2801) BASIC METABOLIC [id number] 07:35:00 Test Item Value Reference Range Interpretation [...] DIALYSIS PATIEN TS. Specimen slightly ictericBASIC METABOLIC [id number] 06:09:00 Test Item Value Reference Range Interpretation [...] = 700) RAD, CHEST, 1 VIEW, NON [id number] 17:23:00Reason for exam:->chfShould this be performed at [...] [place] Verified Date/Time: 07/28/2017 17:23:24 Reading Location: [facility] Radiology Reading Room URINE [id number] 10:09:00 Test Item Value Reference Interpretation Comments [...] 47) Resistant <0 or >40 COMPREHENSIVE METABOLIC [id number] 07:06:00 Test Item Value Reference Range Interpretation [...] Specimen slightly ictericCBC W/PLT COUNT & AUTO [id number] 06:35:00 Test Item Value Reference Range Interpretation [...] (BEAKER) (test code = 2801) URINALYSIS W/ [id number] 18:38:00 Test Item Value Reference Range Interpretation [...] SOURCE(BEAKER) (test code Urine, Clean Catch = 2795) CBC W/PLT COUNT & AUTO [id number] 04:47:00 Test Item Value Reference Range Interpretation [...] (BEAKER) (test code = 2801) BASIC METABOLIC [id number] 04:36:00 Test Item Value Reference Range Interpretation [...] pg/mL 0-100 H (test code = 700) [id number] 07:02:00 Test Item Value Reference Range Interpretation [...] (BEAKER) (test code = 413) CT, CTA, [id number] 16:16:00Addendum BeginsREPORT STATUS:A Addendum: July 22, 2017 at 1620 hours I have reviewed the CT images for this study and I concur with the nonvascular imaging findings as dictated. Si gned: Sandip Christianson MDReport Verified Date/Time: 07/22/2017 16:16:14 Reading Location: [place] [id number] Angio Body Reading RoomAddendum EndsFINAL REPORT CT [...] bypass surgery. The internal mammary arteries are [place]. A bypass graft is identified, that is [...] An addendum will be dictated by the Actuarial Manager Radiologist regarding the nonvascular findings. Signed: Abdoul Gallowayort Verified Date/Time: 07/22/2017 15:43:41 Reading Location: [place] [id number] Cardiology MRI CT, CTA [id number] 16:16:00TAVRAddendum BeginsREPORT STATUS:A Addendum: July 22, 2017 at 1620 hours I have reviewed the CT images for this study and I concur with the nonvascular imaging findings as dictated. Si gned: Sandip Christianson Verified Date/Time: 07/22/2017 16:16:14 Reading Location: [facility] P[address] Angio Body Reading RoomAddendum EndsFINAL REPORT CT [...] bypass surgery. The internal mammary arteries are [place]. A bypass graft is identified, that is [...] An addendum will be dictated by the Actuarial Manager Radiologist regarding the nonvascular findings. Signed: Abdoul Galloway MDReport Verified Date/Time: 07/22/2017 15:43:41 Reading Location: [place] [address] Cardiology MRI BASI METABOLIC [id number] 05:06:00 Test Item Value Reference Range Interpretation [...] 0-100 H (test code = 700) POCT-GLUCOSE [id number] 20:48:00 Test Item Value Reference Range Interpretation Comments POC-GLUCOSE METER 133 mg/dL 70-110 H TESTED AT [facility] 6720 (BEAKER) (test code = TEX [place] 1538) [address] [id number] 06:17:00 Test Item Value Reference Range Interpretation Comments PHOSPHORUS (BEAKER) (test code = 2.3 mg/dL 2.3-4.7 604) [id number] 06:17:00 Test Item Value Reference Range Interpretation Comments MAGNESIUM (BEAKER) (test code = 2.2 mg/dL 1.6-2.6 627) BASIC METABOLIC [id number] 06:17:00 Test Item Value Reference Range Interpretation [...] PATIEN TS. CBC W/PLT COUNT & AUTO [id number] 05:58:00 Test Item Value Reference Range Interpretation [...] 0-1 PERCENT (BEAKER) (test code = 2801) [id number] 05:42:00 Test Item Value Reference Range Interpretation Comments MAGNESIUM (BEAKER) (test code = 2.2 mg/dL 1.6-2.6 627) BASIC METABOLIC [id number] 05:42:00 Test Item Value Reference Range Interpretation [...] PATIEN TS. CBC W/PLT COUNT & AUTO [id number] 08:51:00 Test Item Value Reference Range Interpretation [...] (BEAKER) (test code = 2801) BASIC METABOLIC [id number] 06:59:00 Test Item Value Reference Range Interpretation [...] APPLICABLE FOR DIALYSIS PATIEN TS. Specimen slightly [id number] 06:50:00 Test Item Value Reference Range Interpretation Comments MAGNESIUM (BEAKER) (test code = 2.2 mg/dL 1.6-2.6 627) [id number] 14:04:00 Test Item Value Reference Range Interpretation Comments CORTISOL, TOTAL (BEAKER) (test 14.3 ug/dL 3.7-19.4 code = 2755) B-TYPE NATRIURETIC FACTOR (BNP)2017-07-17 05:11:00 Test Item Value Reference Range Interpretation Comments B-TYPE NATRIURETIC PEPTIDE (BEAKER) 462 pg/mL 0-100 H (test code = 700) URIC [id number] 05:09:00 Test Item Value Reference Range Interpretation Comments URIC ACID (BEAKER) (test code = 9.8 mg/dL 2.6-7.2 H 773) [id number] 05:09:00 Test Item Value Reference Range Interpretation Comments MAGNESIUM (BEAKER) (test code = 2.0 mg/dL 1.6-2.6 627) COMPREHENSIVE METABOLIC [id number] 05:09:00 Test Item Value Reference Range Interpretation [...] PATIEN TS. CBC W/PLT COUNT & AUTO [id number] 04:52:00 Test Item Value Reference Range Interpretation [...] = 2801) RAD, CHEST, 1 VIEW, NON [id number] 04:01:00Reason for exam:- >oliguriaShould this be performed [...] MDReport Verified Date/Time: 07/17/2017 04:01:10 Reading Location: [address] Reading Room SODIUM, RANDOM URINE 2017-07-16 19:25:00 Test Item Value Reference Range Interpretation Comments SODIUM URINE (BEAKER) (test code = < meq/L 243) Reference Range: No NormalsCREATININE, RANDOM [id number] 19:14:00 Test Item Value Reference Range Interpretation Comments CREATININE URINE (BEAKER) (test 131.4 mg/dL code = 375) Reference Range: No NormalsPROTEIN, RANDOM [id number] 19:14:00 Test Item Value Reference Range Interpretation Comments PROTEIN, URINE (BEAKER) (test code = 23 mg/dL 0-14 H 1569) OSMOLALITY, [id number] 19:00:00 Test Item Value Reference Range Interpretation Comments OSMOLALITY URINE (BEAKER) (test 346 mOsm/kg 40-1400 code = 614) RAD, CHEST, 1 VIEW, NON [id number] 16:22:00Reason for exam:->central line placementShould this be performed at the bedside?->YesFINAL REPORT TECHNIQUE: Frontal chest radiograph dated 07/16/2017. CLINICAL HI STORY: Central line placement COMPARISON STUDY: Chest radiograph performed earlier the same day. IMPRESSION:Right-sided Oreland-Ezequiel catheter tip projects over the affected region of superior vena cava/right atrial junction. There is streaky atelectasis in the left lung base. No focal consolidation. No pleural effusion or pneumothorax. Cardiomediastinal silhouette is normal in size. No pulmonary edema.Midline sternotomy wires are intact and well aligned. No fracture. Bones are osteopenic. Signed: Ravi Griffin MDReport Verified Date/Time: 07/16/2017 16:22:02 Reading Location: [facility] Radiology Reading Room RAD, CHEST, 1 VIEW, NON [id number] 09:32:00Reason for exam:->cxfShould this be performed at [...] MDReport Verified Date/Time: 07/16/2017 09:32:51 Reading Location: [facility] Radiology Reading Room B-TYPE NATRIURETIC FACTOR (BNP)2017-07-16 02:38:00 Test Item Value Reference Range Interpretation Comments B-TYPE NATRIURETIC PEPTIDE (BEAKER) 251 pg/mL 0-100 H (test code = 700) BASIC METABOLIC [id number] 02:32:00 Test Item Value Reference Range Interpretation [...] TS. Specimen slightly ictericLACTIC ACID, VENOUS, WHOLE [id number] 02:28:00 Test Item Value Reference Range Interpretation Comments LACTATE BLOOD VENOUS 2.1 mmol/L 0.5-2.2 Specime n slightly (2) (BEAKER) (test hemolyzed code = 3982) Effective 07/04/2015: Units/Reference Range ChangeNew: 0.5-2.2 mmol/L [...] (BEAKER) (test code = 413) HEMOGLOBIN AND [id number] 19:53:00 Test Item Value Reference Range Interpretation Comments HEMOGLOBIN (BEAKER) (test code = 9.4 GM/DL 13.7-17.5 L 410) HEMATOCRIT (BEAKER) (test code = 29.0 % 40.1-51.0 L 411) B-TYPE NATRIURETIC FACTOR (BNP)2017-07-15 16:30:00 Test Item Value Reference Range Interpretation Comments B-TYPE NATRIURETIC PEPTIDE (BEAKER) 155 pg/mL 0-100 H (test code = 700) [id number] 16:23:00 Test Item Value Reference Range Interpretation Comments MAGNESIUM (BEAKER) 2.0 mg/dL 1.6-2.6 Specimen slightly (test code = 627) hemolyzed BASIC METABOLIC [id number] 16:23:00 Test Item Value Reference Range Interpretation [...] TS. Specimen slightly ictericLACTIC ACID, VENOUS, WHOLE [id number] 16:19:00 Test Item Value Reference Range Interpretation [...] WBC 0-0 (BEAKER) (test code = 413) [id number] 12:47:00 Test Item Value Reference Range Interpretation Comments ACTIVATED CLOTTING TIME 224 sec TEST ED AT [place] [address] ([facility]) (test code = [place] [facility]) [id number] 12:47:00 Test Item Value Reference Range Interpretation Comments ACTIVATED CLOTTING TIME 257 sec TEST ED AT [place] [address] ([facility]) (test code = [place] [facility]) [id number] 12:47:00 Test Item Value Reference Range Interpretation Comments ACTIVATED CLOTTING TIME 219 sec TEST ED AT [place] [address] ([facility]) (test code = [place] 441) [id number]
[2021-01-21] MEDS ORDERED: DERMABOND SKIN ADHESIVE TOP ONE (10:18)
--- NOTE | 2021-01-21 10:40 | EDPHYS ---
Physician Documentation [facility] Name: Chris Mcwilliams Age: 89 yrs Sex: Male : 1930 Arrival Date: 01/21/2021 Time: 09:27 Bed DX3 Private MD: ED Physician Jordy Aragon HPI: 01/21 09:51 This 89 yrs old Male presents to ER via EMS with complaints of Skin tear to right pm1 forearm. 09:51 The patient or guardian complains of Skin tear to left forearm. The complaints affect pm1 the palmar aspect of right forearm. Context: The problem was sustained at home, outdoors, resulted from Trip and fall while taking out garbage can. Onset: The symptoms/episode began/occurred just prior to arrival. Treatment prior to arrival includes: 4 x 4 dressing. Modifying factors: The symptoms are alleviated by Pressure to area. Associated signs and symptoms: The patient has no apparent associated signs or symptoms, Pertinent negatives: Chest pain, shortness of breath, headache, dizziness. The patient has experienced similar episodes in the past, a few times. It is unknown whether or not the patient has recently seen a physician. Historical: - Allergies: 09:31 No Known Allergies; sl2 - PMHx: 09:31 Congestive heart failure; Myocardial infarction; sl2 - Immunization history:: Adult Immunizations up to date, Client reports receiving the 2nd dose of the Covid vaccine. - Social history:: Smoking status: Patient denies any tobacco usage or history of. ROS: 09:51 Constitutional: Negative for fever, chills, and weight loss, Cardiovascular: Negative pm1 for chest pain, palpitations, and edema, Respiratory: Negative for shortness of breath, cough, wheezing, and pleuritic chest pain, MS/Extremity: Negative for injury and deformity. 09:51 Neuro: Negative for headache, weakness, numbness, tingling, and seizure. 09:51 Skin: Positive for of the palmar aspect of right forearm, Skin tear. 09:51 All other systems are negative. 09:51 Cardiovascular: Positive for edema, Lower extremities. pm1 Exam: 09:51 Constitutional: This is a well developed, well nourished patient who is awake, alert, pm1 and in no acute distress. 09:51 Head/Face: Normocephalic, atraumatic. pm1 09:51 Cardiovascular: Exam negative for acute changes, Rate: normal, Rhythm: regular, Pulses: no pulse deficits are appreciated, Edema: pedal edema. 09:51 Respiratory: Exam negative for acute changes, respiratory distress, shortness of breath, Breath sounds: are clear throughout. 09:51 Skin: Appearance: normal except for affected area, injury, Skin tear present to right forearm palmar area. 09:51 Neuro: Exam negative for acute changes, Orientation: is normal, Mentation: is normal, Motor: is normal, moves all fours. Vital Signs: 09:14 BP 117 / 55; Pulse 80; Resp 18; Temp 98.1(O); Pulse Ox 94% on R/A; Weight 77.11 kg; sl2 Height 5 ft. 7 in. (170.18 cm); 09:31 BP 117 / 55; Pulse 80; Resp 18; Temp 98.1(O); Pulse Ox 94% on R/A; sl2 09:14 Body Mass Index 26.63 (77.11 kg, 170.18 cm) sl2 Laceration: 10:35 Wound Repair of 5cm ( 2.0in ) subcutaneous laceration to skin tear to proximal palmar pm1 aspect of right forearm. Irregularly shaped.. skin tear. Distal neuro/vascular/tendon intact. Wound prep: Extensive cleansing with hibiclenz by me, Wound irrigation with saline by me, Wound explored extensively, Copious irrigation. Skin closed with thin layer Adhesive skin closure using Dermabond. Dressed with 4x4's, non-adherent dressing. Patient tolerated well. MDM: 09:48 Patient medically screened. pm1 10:35 Data reviewed: vital signs. pm1 10:35 Counseling: I had a detailed discussion with the patient and/or guardian regarding: the pm1 historical points, exam findings, and any diagnostic results supporting the discharge/admit diagnosis, the need for outpatient follow up, to return to the emergency department if symptoms worsen or persist or if there are any questions or concerns that arise at home. 01/21 09:51 Order name: Dermabond; Complete Time: 11:18 pm1 01/21 09:51 Order name: Wound Care; Complete Time: 11:18 pm1 Administered Medications: 11:18 Drug: Tetanus-Diphtheria Toxoid Adult 0.5 ml {Distiller: [employer]. Exp: iw 06/22/2022. Lot #: [id number]. } Route: IM; Site: right deltoid; Disposition: 13:39 Co-signature as Attending Physician, Jordy Aragon MD I agree with the assessment and kdr plan of care. Disposition Summary: 01/21/21 10:39 Discharge Ordered Location: Home pm1 Problem: new pm1 Symptoms: have improved pm1 Condition: Stable pm1 Diagnosis - Skin tear left forearm pm1 - Fall on same level from slipping, tripping and stumbling without subsequent pm1 striking against object Followup: pm1 - With: Emergency Department - When: As needed - Reason: Worsening of condition Followup: pm1 - With: Private Physician - When: 2 - 3 days - Reason: Recheck today's complaints, Continuance of care, Re-evaluation by your physician Discharge Instructions: - Discharge Summary Sheet pm1 - Tissue Adhesive Wound Care pm1 - Fall Prevention in the Home, Adult pm1 Forms: - Medication Reconciliation Form pm1 - Thank You Letter pm1 - Antibiotic Education pm1 - Prescription Opioid Use pm1 Prescriptions: - Cephalexin 500 mg Oral Capsule - take 1 capsule by ORAL route every 12 hours for 10 days; 20 capsule; Refills: pm1 0, Product Selection Permitted Signatures: Jordy Aragon MD MD [facility] Rhina Martinez RN RN iw Chris Guerrier NP CLIENT SERVICE AND CONSULTING MANAGER pm1 Dulce Maria Burns RN RN sl2 Corrections: (The following items were deleted from the chart) 17:12 09:51 This 89 yrs old Male presents to ER via EMS with complaints of Skin tear to left pm1 forearm. pm1 17:12 09:51 The complaints affect the palmar aspect of left forearm, pm1 pm1 17:12 09:51 Skin: Positive for of the palmar aspect of left forearm, Skin tear, pm1 pm1
--- NOTE | 2021-01-21 10:40 | ER ---
Nurse's Notes [facility] Name: Chris Mcwilliams Age: 89 yrs Sex: Male : 1930 Arrival Date: 01/21/2021 Time: 09:27 Bed DX3 Private MD: Diagnosis: Skin tear left forearm;Fall on same level from slipping, tripping and stumbling without subsequent striking against object Presentation: 01/21 09:14 Chief complaint: Patient states: Trip and fall : Patient presents to ED via [address] [facility] with c/o trip and fall, denies head injury, denies Loss of consciousness, skin tear noted to right forearm, patient c/o bilateral knee pain and edema to bilateral lower extremity states h/o CHF. 09:14 Coronavirus screen: Vaccine status: Patient reports receiving the 2nd dose of the covid sl2 vaccine. Ebola Screen: Patient negative for fever greater than or equal to 101.5 degrees Fahrenheit, and additional compatible Ebola Virus Disease symptoms Patient denies exposure to infectious person. Patient denies travel to an Ebola-affected area in the 21 days before illness onset. No symptoms or risks identified at this time. Initial Sepsis Screen: Does the patient meet any 2 criteria? No. Patient's initial sepsis screen is negative. Does the patient have a suspected source of infection? No. Patient's initial sepsis screen is negative. Risk Assessment: Do you want to hurt yourself or someone else? Patient reports no desire to harm self or others. Onset of symptoms was January 21, 2021. 09:14 Method Of Arrival: EMS: [place] [id number] 09:14 Acuity: BOB 2 sl2 Triage Assessment: 09:31 General: Appears in no apparent distress. well groomed, well developed, Behavior is sl2 calm, cooperative, appropriate for age. Pain: Complains of pain in Bilateral knees Pain does not radiate. Pain currently is 1 out of 10 on a pain scale. at worst was 7 out of 10 on a pain scale. level that patient reports is acceptable is 1 out of 10 on a pain scale. Quality of pain is described as aching. EENT: No deficits noted. Neuro: No deficits noted. Cardiovascular: No deficits noted. Capillary refill Rhythm is regular. Respiratory: No deficits noted. Airway is patent Trachea midline Respiratory effort is even, unlabored, Respiratory pattern is regular, symmetrical. GI: No deficits noted. No signs and/or symptoms were reported involving the gastrointestinal system. : No deficits noted. No signs and/or symptoms were reported regarding the genitourinary system. Derm: Wound noted Right forearm Other: Skin Tear. Musculoskeletal: Reports pain in Bilateral knees pain in bilateral knees with walking. Historical: - Allergies: 09:31 No Known Allergies; sl2 - PMHx: 09:31 Congestive heart failure; Myocardial infarction; sl2 - Immunization history:: Adult Immunizations up to date, Client reports receiving the 2nd dose of the Covid vaccine. - Social history:: Smoking status: Patient denies any tobacco usage or history of. Screenin:37 Abuse screen: Denies threats or abuse. Denies injuries from another. Nutritional sl2 screening: No deficits noted. Tuberculosis screening: No symptoms or risk factors identified. Fall Risk Fall in past 12 months (25 points). No secondary diagnosis (0 pts). No IV (0 pts). Ambulatory Aid- None/Bed Rest/Nurse Assist (0 pts). Gait- Normal/Bed Rest/Wheelchair (0 pts) Mental Status- Oriented to own ability (0 pts). Total Head Fall Scale indicates Low Risk Score (25-44 pts). Side Rails Up X 2 Placed close to Nursing Station Frequent Obs/Assesments occuring. Vital Signs: 09:14 BP 117 / 55; Pulse 80; Resp 18; Temp 98.1(O); Pulse Ox 94% on R/A; Weight 77.11 kg; sl2 Height 5 ft. 7 in. (170.18 cm); 09:31 BP 117 / 55; Pulse 80; Resp 18; Temp 98.1(O); Pulse Ox 94% on R/A; sl2 09:14 Body Mass Index 26.63 (77.11 kg, 170.18 cm) sl2 ED Course: 09:27 Patient arrived in ED. sl2 09:27 Dulce Maria Burns RN is Primary Nurse. sl2 09:31 Triage completed. sl2 09:31 Arm band placed on. sl2 09:33 [facility] pm1 09:33 Jordy Aragon MD is Attending Physician. pm1 09:37 Patient has correct armband on for positive identification. Bed in low position. Call sl2 light in reach. Side rails up X2. 09:37 No provider procedures requiring assistance completed. sl2 11:53 Patient did not have IV access during this emergency room visit. iw Administered Medications: 11:18 Drug: Tetanus-Diphtheria Toxoid Adult 0.5 ml {Negative Spotter: [employer]. Exp: iw 06/22/2022. Lot #: [id number]. } Route: IM; Site: right deltoid; Outcome: 10:39 Discharge ordered by MD. pm1 11:53 Discharged to home ambulatory. iw 11:53 Condition: good 11:53 Discharge instructions given to patient, Instructed on discharge instructions, follow up and referral plans. Demonstrated understanding of instructions, follow-up care. 11:53 Patient left the ED. iw Signatures: Rhina Martinez, SARAH RN iw Chris Guerrier, HARRIET W[employer] PROJECT MANAGER pm1 Dulce Maria Burns RN RN sl2
[2021-01-21] MEDS ORDERED: TETANUS & DIPHTHERIA TOX,ADULT 0.5 ML VIAL ONE (11:04)
[2021-01-21 12:01] VITALS: BP 117/55; TEMP 98.1; O2SAT 94
== END 2021-01-21 11:53 | disposition home or self-care (01) ==
LOC: ER 09:20
PROC: 0JQG0ZZ Repair Right Lower Arm Subcutaneous Tissue and Fascia, Open Approach (ICD-10-PCS; principal; 2021-01-21)
DX: S51.811A Laceration without foreign body of right forearm, initial encounter (principal); W01.0XXA Fall on same level from slipping, tripping and stumbling without subsequent striking against object, initial encounter; Y93.E9 Activity, other interior property and clothing maintenance; Z23 Encounter for immunization; I25.2 Old myocardial infarction
CPT/HCPCS: 90471; 90714; 99283

== ENCOUNTER 2021-01-31 08:41 | Inpatient (IN) | payer MEDICARE, BC ==
--- OUTSIDE RECORDS SUMMARY | 2021-01-31 08:51 | XMS REPORT | Continuity of Care Document ---
:1930 Author Organization [facility] Address [address] [place] [address] Care Team Providers Name Role Phone BELLO [...] (test 127 mg/dL 70-[address] [facility] 67[address] [facility] code = 1538) [facility] [phone] 0 POCT-GLUCOSE [id number] 08:51:00 Test Item Value Reference Range Interpretation Comments POC-GLUCOSE METER 104 mg/dL 70-[address] [facility] 6720 (BEAKER) (test code = TEX R [facility] 1538) [address] BASIC METABOLIC [id number] 07:00:00 Test Item Value Reference Range Interpretation [...] 0-0 (BEAKER) (test code = 413) POCT-GLUCOSE [id number] 21:00:00 Test Item Value Reference Range Interpretation Comments POC-GLUCOSE METER 133 mg/dL 70-[address] [facility] 6720 (BEAKER) (test code = TEX RAMIREZ 1538) [address]707 POCT-GLUCOSE [id number] 16:55:00 Test Item Value Reference Range Interpretation Comments POC-GLUCOSE METER 148 mg/dL 70-[address] [facility] 6720 (BEAKER) (test code = TEX [place] 1538) [address] POCT-GLUCOSE [id number] 13:18:00 Test Item Value Reference Range Interpretation Comments POC-GLUCOSE METER 136 mg/dL 70-[address] [facility] 6720 (BEAKER) (test code = TEX [place] 1538) [address] POCT-GLUCOSE [id number] 08:34:00 Test Item Value Reference Range Interpretation Comments POC-GLUCOSE METER 107 mg/dL 70-[address] [facility] 6720 (BEAKER) (test code = TEX [place] 1538) [address] BASIC METABOLIC [id number] 07:18:00 Test Item Value Reference Range Interpretation [...] Specimen slightly ictericCBC W/PLT COUNT & AUTO [id number] 06:32:00 Test Item Value Reference Range Interpretation [...] PERCENT (BEAKER) (test code = 2801) POCT-GLUCOSE [id number] 21:22:00 Test Item Value Reference Range Interpretation Comments POC-GLUCOSE METER 190 mg/dL 70-[address] [facility] 6720 (BEAKER) (test code = [facility] 1538) 14994 POCT-GLUCOSE [id number] 17:49:00 Test Item Value Reference Range Interpretation Comments POC-GLUCOSE METER 112 mg/dL 70-110 H TESTED AT [place] [address] ([facility]) (test code = [facility] 1538) [address]28 POCT-GLUCOSE [id number] 13:14:00 Test Item Value Reference Range Interpretation Comments POC-GLUCOSE METER 137 mg/dL 70-110 H TESTED AT [place] [address] ([facility]) (test code = [facility] 1538) 95998 POCT-GLUCOSE [id number] 07:55:00 Test Item Value Reference Range Interpretation Comments POC-GLUCOSE METER 102 mg/dL 70-110 TESTED AT [place] [address] ([facility]) (test code = [facility] 1538) 60936 CBC W/PLT COUNT & AUTO [id number] 06:09:00 Test Item Value Reference Range Interpretation [...] (BEAKER) (test code = 2801) BASIC METABOLIC [id number] 05:59:00 Test Item Value Reference Range Interpretation [...] FOR DIALYSIS PATIEN TS. Specimen slightly ictericPOCT-GLUCOSE [id number] 22:01:00 Test Item Value Reference Range Interpretation Comments POC-GLUCOSE METER 136 mg/dL 70-110 H TESTED AT [place] [address] ([facility]) (test code = TEX Sh[employer] [facility] 1538) [address] FL, ESOPH, SWALLOW FUNCTION, WITH CINE OR [id number] 17:39:00Reason for exam:->DysphagiaFINAL REPORT INDICATION: Dysphagia. TECHNIQUE: [...] [place] Verified Date/Time: 08/31/2018 17:39:54 Reading Location: [facility] C0X Ortho Consult Reading Room -GLUCOSE [id number] 17:04:00 Test Item Value Reference Range Interpretation Comments POC-GLUCOSE METER 154 mg/dL 70-110 H TESTED AT [place] [address] ([facility]) (test code = TEX [employer] [facility] 1538) 48619 POCT-GLUCOSE [id number] 13:17:00 Test Item Value Reference Range Interpretation Comments POC-GLUCOSE METER 168 mg/dL 70-110 H TESTED AT [place] [address] ([facility]) (test code = TEX [place] [facility] 1538) 33853 POCT-GLUCOSE [id number] 12:33:00 Test Item Value Reference Range Interpretation Comments POC-GLUCOSE METER 127 mg/dL 70-110 H TESTED AT [place] [address] ([facility]) (test code = TEX Sh[place] [facility] 1538) 96567 CBC W/PLT COUNT & AUTO [id number] 05:57:00 Test Item Value Reference Range Interpretation Comments WHITE BLOOD CELL COUNT ([facility]) 5.4 K/ L 3.5-10.5 (test code = 775) RED BLOOD CELL COUNT ([facility]) 2.27 M/ L 4.63-6.08 L (test code = 761) HEMOGLOBIN ([facility]) (test code = 7.5 GM/DL 13.7-17.5 L [...] PERCENT (BEAKER) (test code = 2801) TROPONIN [id number] 05:56:00 Test Item Value Reference Range Interpretation [...] failure, acidosis, acute neurological disease, and persistent tachyarrhythmia.[id number] 05:48:00 Test Item Value Reference Range Interpretation Comments MAGNESIUM (BEAKER) (test code = 2.2 mg/dL 1.6-2.6 627) BASIC METABOLIC [id number] 05:48:00 Test Item Value Reference Range Interpretation [...] NOT APPLICABLE FOR DIALYSIS PATIEN TS. POCT-GLUCOSE [id number] 04:49:00 Test Item Value Reference Range Interpretation Comments POC-GLUCOSE METER 131 mg/dL 70-[address] [facility] 6720 ([employer]) (test code = [facility] 1538) 6[address] POCT-GLUCOSE [id number] 22:24:00 Test Item Value Reference Range Interpretation Comments POC-GLUCOSE METER 180 mg/dL 70-110 [facility] (test code = [facility] 1538) 967[address] POCT-GLUCOSE [id number] 17:17:00 Test Item Value Reference Range Interpretation Comments POC-GLUCOSE METER 176 mg/dL 70-[address] [facility] 6720 (BEAKER) (test code = TEX [place] 1538) [address] POCT-GLUCOSE [id number] 11:51:00 Test Item Value Reference Range Interpretation Comments POC-GLUCOSE METER 180 mg/dL 70-110 H TESTED AT [place] [id number] (BEAKER) (test code = TEX [place] [place] 1538) [address] HEMOGLOBIN AND [id number] 07:49:00 Test Item Value Reference Range Interpretation Comments HEMOGLOBIN (BEAKER) (test code = 7.3 GM/DL 13.7-17.5 L 410) HEMATOCRIT (BEAKER) (test code = 22.6 % 40.1-51.0 L 411) BASIC METABOLIC [id number] 06:43:00 Test Item Value Reference Range Interpretation [...] NOT APPLICABLE FOR DIALYSIS PATIEN TS. POCT-GLUCOSE [id number] 06:26:00 Test Item Value Reference Range Interpretation Comments POC-GLUCOSE METER 173 mg/dL 70-[address] [facility] 6720 (BEAKER) (test code = TEX [place] 1538) [address] POCT-GLUCOSE [id number] 00:26:00 Test Item Value Reference Range Interpretation Comments POC-GLUCOSE METER 182 mg/dL 70-[address] [facility] 6720 (BEAKER) (test code = TEX [place] [facility] 1538) 33684 POCT-GLUCOSE [id number] 18:53:00 Test Item Value Reference Range Interpretation Comments POC-GLUCOSE METER 174 mg/dL 70-[address] [facility] 6720 (BEAKER) (test code = TEX Sh[place] [facility] 1538) 72481 POCT-GLUCOSE [id number] 12:47:00 Test Item Value Reference Range Interpretation Comments POC-GLUCOSE METER 215 mg/dL 70-110 H TESTED AT [place] [address] (BEAKER) (test code = TEX Sh[place] [facility] 1538) 68102 POCT-GLUCOSE [id number] 08:59:00 Test Item Value Reference Range Interpretation Comments POC-GLUCOSE METER 185 mg/dL 70-110 H TESTED AT [place] [address] (BEAKER) (test code = TEX [place] [facility] 1538) [address]221 POCT-GLUCOSE [id number] 06:33:00 Test Item Value Reference Range Interpretation Comments POC-GLUCOSE METER 195 mg/dL 70-110 H TESTED AT [place] [address] (BEAKER) (test code = TEX [place] [facility] 1538) [address]27[address] BASIC METABOLIC [id number] 03:42:00 Test Item Value Reference Range Interpretation [...] NOT APPLICABLE FOR DIALYSIS PATIEN TS. PROTHROMBIN [id number] 03:37:00 Test Item Value Reference Range Interpretation [...] mechanical heart valves.CBC W/PLT COUNT & AUTO [id number] 03:32:00 Test Item Value Reference Range Interpretation [...] PERCENT (BEAKER) (test code = 2801) POCT-GLUCOSE [id number] 00:13:00 Test Item Value Reference Range Interpretation Comments POC-GLUCOSE METER 187 mg/dL 70-[address] [facility] 67 [facility] (test code = TEX [place] [facility] 1538) 03080 POCT-GLUCOSE [id number] 18:27:00 Test Item Value Reference Range Interpretation Comments POC-GLUCOSE METER 184 mg/dL 70-[address] [facility] 67 [facility] (test code = TEX Sh[place] [facility] 1538) 87075 POCT-GLUCOSE [id number] 14:01:00 Test Item Value Reference Range Interpretation Comments POC-GLUCOSE METER 224 mg/dL 70-[address] [facility] 67 [facility] (test [facility] = [facility] 1538) 135[address] [id number] 06:44:00 Test Item Value Reference Range Interpretation Comments MAGNESIUM (BEAKER) (test code = 2.6 mg/dL 1.6-2.6 627) BASIC METABOLIC [id number] 06:44:00 Test Item Value Reference Range Interpretation [...] NOT APPLICABLE FOR DIALYSIS PATIEN TS. POCT-GLUCOSE [id number] 06:21:00 Test Item Value Reference Range Interpretation Comments POC-GLUCOSE METER 181 mg/dL 70-[address] [facility] 6720 ([facility]) (test code = [place] 1538) [address] PROTHROMBIN [id number] 05:09:00 Test Item Value Reference Range Interpretation [...] 0-0 (BEAKER) (test code = 413) POCT-GLUCOSE [id number] 00:55:00 Test Item Value Reference Range Interpretation Comments POC-GLUCOSE METER 211 mg/dL 70-110 H TESTED AT [place] [address] ([facility]) (test code = TEX Sh[place] [facility] 1538) 17792 POCT-GLUCOSE [id number] 21:29:00 Test Item Value Reference Range Interpretation Comments POC-GLUCOSE METER 220 mg/dL 70-110 H TESTED AT [place] [address] ([facility]) (test code = TEX [place] [facility] 1538) 93904 POCT-GLUCOSE [id number] 18:15:00 Test Item Value Reference Range Interpretation Comments POC-GLUCOSE METER 200 mg/dL 70-110 H TESTED AT [place] [address] ([facility]) (test code = TEX [place] 1538) [address] POCT-GLUCOSE [id number] 11:57:00 Test Item Value Reference Range Interpretation Comments POC-GLUCOSE METER 238 mg/dL 70-110 H TESTED AT [place] [address] ([facility]) (test code = TEX [place] 1538) [address] HEMOGLOBIN AND [id number] 08:02:00 Test Item Value Reference Range Interpretation Comments HEMOGLOBIN (BEAKER) (test code = 7.3 GM/DL 13.7-17.5 L 410) HEMATOCRIT (BEAKER) (test code = 23.2 % 40.1-51.0 L 411) [id number] 06:37:00 Test Item Value Reference Range Interpretation Comments MAGNESIUM (BEAKER) (test code = 2.6 mg/dL 1.6-2.6 627) BASIC METABOLIC [id number] 06:37:00 Test Item Value Reference Range Interpretation [...] FOR DIALYSIS PATIEN TS. Specimen slightly ictericPOCT-GLUCOSE [id number] 06:24:00 Test Item Value Reference Range Interpretation Comments POC-GLUCOSE METER 160 mg/dL 70-[address] [facility] 6720 (BEAKER) (test code = TEX [place] 1538) [address] PROTHROMBIN [id number] 05:49:00 Test Item Value Reference Range Interpretation [...] is2.5-3.5 for patients wiht mechanical heart valves.POCT-GLUCOSE [id number] 18:38:00 Test Item Value Reference Range Interpretation Comments POC-GLUCOSE METER 196 mg/dL 70-110 H TEST[facility] AT [place] [address] [facility] (test code = TEX [place] 1538) [address] POCT-GLUCOSE [id number] 13:58:00 Test Item Value Reference Range Interpretation Comments POC-GLUCOSE METER 244 mg/dL 70-110 H TESTED AT [place] [address] ([facility]) (test code = TEX [place] 1538) [address] [id number] 07:56:00 Test Item Value Reference Range Interpretation Comments PHOSPHORUS (BEAKER) (test code = 2.2 mg/dL 2.3-4.7 L 604) POCT-GLUCOSE [id number] 06:22:00 Test Item Value Reference Range Interpretation Comments POC-GLUCOSE METER 179 mg/dL 70-110 H TESTED AT [place] [address] [facility] (test code = TEX [place] 1538) [address] POCT-GLUCOSE [id number] 05:10:00 Test Item Value Reference Range Interpretation Comments POC-GLUCOSE METER 249 mg/dL 70-110 H TESTED AT [place] [address] ([facility] (test code = TEX [place] 1538) [address] [id number] 04:08:00 Test Item Value Reference Range Interpretation Comments MAGNESIUM (BEAKER) (test code = 2.7 mg/dL 1.6-2.6 H 627) BASIC METABOLIC [id number] 04:08:00 Test Item Value Reference Range Interpretation [...] NOT APPLICABLE FOR DIALYSIS PATIEN TS. PROTHROMBIN [id number] 03:49:00 Test Item Value Reference Range Interpretation [...] mechanical heart valves.CBC W/PLT COUNT & AUTO [id number] 03:49:00 Test Item Value Reference Range Interpretation [...] PERCENT (BEAKER) (test code = 2801) POCT-GLUCOSE [id number] 00:22:00 Test Item Value Reference Range Interpretation Comments POC-GLUCOSE METER 214 mg/dL 70-[address] [facility] 67 [facility] (test code = TEX [place] 1538) [address] POCT-GLUCOSE [id number] 17:37:00 Test Item Value Reference Range Interpretation Comments POC-GLUCOSE METER 164 mg/dL 70-[address] [facility] 6720 ([facility]) (test code = TEX [place] 1538) [address] CBC W/PLT COUNT & AUTO [id number] 15:32:00 Test Item Value Reference Range Interpretation [...] (test code = 2801) EEG AWAKE/ASLEEP AND [id number] 14:46:00Reason for exam:->continued decreased responsivenessShould this be performed at the bedside?->YesDate(s) of EE08/25/2018DATE OF REPORT: 08/25/2018ACC:[id number] Number: [id number] Location: Inpatient ICUStart time:09:45 amStop time:10:06 amICD-10: R56.9 Unspecified ConvulsionsCPT Code: 25821 EEG HISTORY: 88 y.o. male with h/o [...] are no electrographic seizures in this study. Alberta Medinau rophysiology Fellow Onur Leiva MD, MSClinical Neurophysiology/Epilepsy Attending POCT-GLUCOSE [id number] 12:43:00 Test Item Value Reference Range Interpretation Comments POC-GLUCOSE METER 221 mg/dL 70-[address] [facility] 6720 ([facility]) (test code = TEX [place] 1538) [address] RAD, CHEST, 1 VIEW, NON [id number] 11:00:00Reason for exam:- >hemoptysisShould this be performed [...] [place] Verified Date/Time: 08/25/2018 11:00:37 Reading Location: [facility] Radiology Reading Room POCT-GLUCOSE [id number] 06:39:00 Test Item Value Reference Range Interpretation Comments POC-GLUCOSE METER 202 mg/dL 70-110 H TESTED AT [place] [address] ([facility]) (test code = TEX Sh[place] [facility] 1538) 67441 BLOOD GAS, [id number] 05:13:00 Test Item Value Reference Range Interpretation [...] code = 1819) 24.0 % BASIC METABOLIC [id number] 05:10:00 Test Item Value Reference Range Interpretation [...] FOR DIALYSIS PATIEN TS. Specimen slightly ictericPROTHROMBIN [id number] 05:07:00 Test Item Value Reference Range Interpretation [...] mechanical heart valves.CBC W/PLT COUNT & AUTO [id number] 04:52:00 Test Item Value Reference Range Interpretation [...] = 2801) RAD, CHEST, 1 VIEW, NON [id number] 04:28:00Reason for exam:- >intubatedShould this be performed at the bedside?->YesFINAL REPORT CLINICAL INDICATION: Support lines. Comparison: 08/24/2018 The cardiomediastinal contours are stable. Central pulmonary vascular congestion and bilateral parenchymalopacities are similar to previous. There is no pneumothorax. Support lines are stable. Signed: Dawson [place] Verified Date/Time: 08/25/2018 04:28:55 Reading Location: [address] Reading Room POCT-GLUCOSE [id number] 00:29:00 Test Item Value Reference Range Interpretation Comments POC-GLUCOSE METER 258 mg/dL 70-110 H TESTED AT [place] [address] [facility] (test code = [facility] 1538) 9[address] POCT-GLUCOSE [id number] 18:26:00 Test Item Value Reference Range Interpretation Comments POC-GLUCOSE METER 293 mg/dL 70-110 H TESTED AT [place] [address] (BEAKER) (test code = [facility] 1538) 82131 BLOOD GAS, [id number] 15:38:00 Test Item Value Reference Range Interpretation [...] code = 1819) 30.0 % BLOOD GAS, [id number] 14:57:00 Test Item Value Reference Range Interpretation [...] code = 1819) 24.0 % BASIC METABOLIC [id number] 14:47:00 Test Item Value Reference Range Interpretation [...] S NOT APPLICABLE FOR DIALYSIS PATIEN TS. [id number] 14:47:00 Test Item Value Reference Range Interpretation Comments MAGNESIUM (BEAKER) (test code = 2.2 mg/dL 1.6-2.6 627) [id number] 14:47:00 Test Item Value Reference Range Interpretation Comments PHOSPHORUS (BEAKER) (test code = 1.9 mg/dL 2.3-4.7 L 604) CBC W/PLT COUNT & AUTO [id number] 14:12:00 Test Item Value Reference Range Interpretation [...] PERCENT (BEAKER) (test code = 2801) CALCIUM, [id number] 13:35:00 Test Item Value Reference Range Interpretation Comments CALCIUM IONIZED (BEAKER) (test 1.16 mmol/L 1.12-1.27 code = 698) PH, BLOOD (BEAKER) (test code = 7.49 1810) TROPONIN [id number] 13:08:00 Test Item Value Reference Range Interpretation [...] acidosis, acute neurological disease, and persistent tachyarrhythmia.POCT-GLUCOSE [id number] 12:10:00 Test Item Value Reference Range Interpretation Comments POC-GLUCOSE METER 258 mg/dL 70-[address] [facility] 67 ([facility]) (test code = TEX [employer] [facility] 1538) 9[address]33 POCT-GLUCOSE [id number] 06:22:00 Test Item Value Reference Range Interpretation Comments POC-GLUCOSE METER 215 mg/dL 70-[address] [facility] 6720 ([facility]) (test code = TEX [place] [facility] 1538) 09357 BLOOD GAS, [id number] 06:06:00 Test Item Value Reference Range Interpretation [...] code = 1819) 24.0 % BASIC METABOLIC [id number] 05:50:00 Test Item Value Reference Range Interpretation [...] Specimen slightly ictericCBC W/PLT COUNT & AUTO [id number] 05:49:00 Test Item Value Reference Range Interpretation [...] PERCENT (BEAKER) (test code = 2801) PROTHROMBIN [id number] 05:34:00 Test Item Value Reference Range Interpretation [...] for patients wiht mechanical heart valves.HEMOGLOBIN AND [id number] 05:30:00 Test Item Value Reference Range Interpretation Comments HEMOGLOBIN (BEAKER) (test code = 7.7 GM/DL 13.7-17.5 L 410) HEMATOCRIT (BEAKER) (test code = 23.8 % 40.1-51.0 L 411) RAD, CHEST, 1 VIEW, NON [id number] 04:20:00Reason for exam:- >intubatedShould this be performed at the bedside?->YesFINAL REPORT CLINICAL INDICATION: Support lines. Comparison: 08/23/2018 The right costophrenic sulcus is excluded. The cardiomediastinal contours are stable. Central pulmonary vascular congestion and bilateral parenchymal and left pleural opacities are similar to previous. Thereis no pneumothorax. Support lines are stable. Signed: Dawson Barron Verified Date/Time: 08/24/2018 04:20:37 Reading Location: [address] Reading Room HEMOGLOBIN AND [id number] 00:40:00 Test Item Value Reference Range Interpretation Comments HEMOGLOBIN (BEAKER) (test code = 7.8 GM/DL 13.7-17.5 L 410) HEMATOCRIT (BEAKER) (test code = 24.2 % 40.1-51.0 L 411) POCT-GLUCOSE [id number] 00:30:00 Test Item Value Reference Range Interpretation Comments POC-GLUCOSE METER 192 mg/dL 70-[address] [facility] 6720 (BEAKER) (test [facility] = [facility] 1538) [address] POCT-GLUCOSE [id number] 17:25:00 Test Item Value Reference Range Interpretation Comments POC-GLUCOSE METER 199 mg/dL 70-[address] [facility] 6720 (BEAKER) (test code = [facility] [place] 1538) [address] HEMOGLOBIN AND [id number] 15:58:00 Test Item Value Reference Range Interpretation Comments HEMOGLOBIN (BEAKER) (test code = 7.6 GM/DL 13.7-17.5 L 410) HEMATOCRIT (BEAKER) (test code = 23.1 % 40.1-51.0 L 411) POCT-GLUCOSE [id number] 13:05:00 Test Item Value Reference Range Interpretation Comments POC-GLUCOSE METER 196 mg/dL 70-[address] [facility] 6720 (BEAKER) (test code = [place] 1538) [address] TROPONIN [id number] 10:06:00 Test Item Value Reference Range Interpretation [...] (BEAKER) (test code = 2801) BLOOD GAS, [id number] 09:19:00 Test Item Value Reference Range Interpretation [...] code = 1819) 30.0 % BLOOD GAS, [id number] 05:48:00 Test Item Value Reference Range Interpretation [...] 40.0 % RAD, CHEST, 1 VIEW, NON [id number] 04:45:00Reason for exam:- >intubatedShould this be performed [...] PATIEN TS. Specimen slightly ictericCT, BRAIN, WITHOUT [id number] 03:59:00FINAL REPORT CT Head without contrast CLINICAL [...] signs of acute sinusitis. Signed: David Jha [facility] Verified Date/Time: 08/23/2018 03:59:22 ONIN [id number] 02:22:00 Test Item Value Reference Range Interpretation [...] (BEAKER) (test code = 2801) HEMOGLOBIN AND [id number] 02:04:00 Test Item Value Reference Range Interpretation Comments HEMOGLOBIN (BEAKER) (test code = 8.0 GM/DL 13.7-17.5 L 410) HEMATOCRIT (BEAKER) (test code = 23.9 % 40.1-51.0 L 411) POCT-GLUCOSE [id number] 01:58:00 Test Item Value Reference Range Interpretation Comments POC-GLUCOSE METER 194 mg/dL 70-[address] [facility] 6720 [facility] (test code = [facility] [place] [facility] 1538) [address] POCT-GLUCOSE [id number] 18:05:00 Test Item Value Reference Range Interpretation Comments POC-GLUCOSE METER 212 mg/dL 70-[address] [facility] 6720 ([facility]) (test code = [facility] [place] [facility] 1538) [address]272 BLOOD GAS, [id number] 17:31:00 Test Item Value Reference Range Interpretation [...] 40.0 % RAD, CHEST, 1 VIEW, NON [id number] 16:59:00Post-intubationReason for exam:- >intubationShould this be performed [...] MDReport Verified Date/Time: 08/22/2018 16:59:35 Reading Location: [facility] [id number] [place] Consult Reading Room CBC W/PLT COUNT & AUTO [id number] 16:38:00 Test Item Value Reference Range Interpretation [...] (BEAKER) (test code = 2801) HEMOGLOBIN AND [id number] 16:25:00 Test Item Value Reference Range Interpretation Comments HEMOGLOBIN (BEAKER) (test code = 8.3 GM/DL 13.7-17.5 L 410) HEMATOCRIT (BEAKER) (test code = 25.3 % 40.1-51.0 L 411) BLOOD GAS, [id number] 15:56:00 Test Item Value Reference Range Interpretation [...] code = 1819) 21.0 % HEPATIC FUNCTION [id number] 14:56:00 Test Item Value Reference Range Interpretation [...] (test code = 347) hemolyzed Specimen slightly [id number] 14:50:00 Test Item Value Reference Range Interpretation Comments AMMONIA (BEAKER) (test code = 348) 129 mol/L 18-72 H TROPONIN [id number] 14:12:00 Test Item Value Reference Range Interpretation [...] and persistent tachyarrhythmia.RAD, CHEST, 1 VIEW, NON [id number] 14:11:00Post-intubationReason for exam:->r/o pnaShould this be performed [...] MDReport Verified Date/Time: 2018 14:11:20 Reading Location: [facility] C0X Ortho Consult Reading Room PHOSPHORUS 2018-08-22 14:06:00 Test Item Value Reference Range Interpretation Comments PHOSPHORUS (BEAKER) (test code = 3.6 mg/dL 2.3-4.7 604) [id number] 14:06:00 Test Item Value Reference Range Interpretation Comments MAGNESIUM (BEAKER) (test code = 2.0 mg/dL 1.6-2.6 627) COMPREHENSIVE METABOLIC [id number] 14:06:00 Test Item Value Reference Range Interpretation [...] DIALYSIS PATIEN TS. Specimen slightly ictericLACTIC ACID, [id number] 14:01:00 Test Item Value Reference Range Interpretation Comments LACTATE BLOOD VENOUS 1.9 mmol/L 0.5-2.2 Specime n slightly (2) (BEAKER) (test hemolyzed code = 3003) Specimen slightly [id number] 14:00:00 Test Item Value Reference Range Interpretation Comments FIBRINOGEN LEVEL (BEAKER) (test 329 mg/dl 225-434 code = 658) [id number] 14:00:00 Test Item Value Reference Range Interpretation Comments PARTIAL THROMBOPLASTIN TIME 36.4 seconds 22.5-36.0 H (BEAKER) (test code = 760) PROTHROMBIN [id number] 13:59:00 Test Item Value Reference Range Interpretation [...] mechanical heart valves.CBC W/PLT COUNT & AUTO [id number] 13:47:00 Test Item Value Reference Range Interpretation [...] PERCENT (BEAKER) (test code = 2801) POCT-GLUCOSE [id number] 07:50:00 Test Item Value Reference Range Interpretation Comments POC-GLUCOSE METER 137 mg/dL 70-[address] [facility] 6720 (BEAKER) (test code = [place] RAMIRE[place] 1538) [address] BASIC METABOLIC [id number] 06:28:00 Test Item Value Reference Range Interpretation [...] PATIEN TS. CBC W/PLT COUNT & AUTO [id number] 06:08:00 Test Item Value Reference Range Interpretation [...] PERCENT (BEAKER) (test code = 2801) PROTHROMBIN [id number] 05:57:00 Test Item Value Reference Range Interpretation [...] METER 138 mg/dL 70-[address] [facility] 6720 ([facility]) (test code = [place] 1538) [address] POCT-GLUCOSE [id number] 17:49:00 Test Item Value Reference Range Interpretation Comments POC-GLUCOSE METER 137 mg/dL 70-[address] [facility] 6720 (BEAKER) (test code = [place] 1538) [address] CBC W/PLT COUNT & AUTO [id number] 13:23:00 Test Item Value Reference Range Interpretation [...] 3438) Received comment: User comments: Slide comments:POCT-GLUCOSE [id number] 11:08:00 Test Item Value Reference Range Interpretation Comments POC-GLUCOSE METER 184 mg/dL 70-[address] [facility] 6720 (BEAKER) (test code = [place] 1538) [address] BASIC METABOLIC [id number] 06:30:00 Test Item Value Reference Range Interpretation [...] NOT APPLICABLE FOR DIALYSIS PATIEN TS. PROTHROMBIN [id number] 06:25:00 Test Item Value Reference Range Interpretation [...] METER 129 mg/dL 70-110 H TESTED AT [place] [address] ([facility]) (test code = [place] 1538) [address] POCT-GLUCOSE [id number] 17:06:00 Test Item Value Reference Range Interpretation Comments POC-GLUCOSE METER 155 mg/dL 70-[address] [facility] 6720 ([facility]) (test code = [place] 1538) [address] CBC W/PLT COUNT & AUTO [id number] 13:39:00 Test Item Value Reference Range Interpretation [...] 3438) Received comment: User comments: Slide comments:POCT-GLUCOSE [id number] 11:37:00 Test Item Value Reference Range Interpretation Comments POC-GLUCOSE METER 140 mg/dL 70-[address] [facility] 6720 (BEAKER) (test code = [place] 1538) [address] POCT-GLUCOSE [id number] 07:55:00 Test Item Value Reference Range Interpretation Comments POC-GLUCOSE METER 139 mg/dL 70-[address] [facility] 6720 (BEAKER) (test code = [place] 1538) [address] BASIC METABOLIC [id number] 05:47:00 Test Item Value Reference Range Interpretation [...] NOT APPLICABLE FOR DIALYSIS PATIEN TS. PROTHROMBIN [id number] 05:28:00 Test Item Value Reference Range Interpretation [...] METER 146 mg/dL 70-110 H TESTED AT [place] [address] ([facility]) (test code = [place] Shabazz [facility] 1538) [address] POCT-GLUCOSE [id number] 17:28:00 Test Item Value Reference Range Interpretation Comments POC-GLUCOSE METER 156 mg/dL 70-[address] [facility] 6720 ([facility]) (test code = [facility] Mele [facility] 1538) [address] CBC W/PLT COUNT & AUTO [id number] 13:53:00 Test Item Value Reference Range Interpretation Comments WHITE BLOOD CELL COUNT (AKER) 4.1 K/ L 3.5-10.5 (test code = [...] 3438) Received comment: User comments: Slide comments:POCT-GLUCOSE [id number] 12:04:00 Test Item Value Reference Range Interpretation Comments POC-GLUCOSE METER 182 mg/dL 70-[address] [facility] 6720 (BEAKER) (test code = [place] 1538) [address] POCT-GLUCOSE [id number] 08:09:00 Test Item Value Reference Range Interpretation Comments POC-GLUCOSE METER 111 mg/dL 70-110 H TESTED AT [place] [address] (BEAKER) (test code = TEX [place] 1538) [address] BASIC METABOLIC [id number] 07:02:00 Test Item Value Reference Range Interpretation [...] 0-100 H (test code = 700) PROTHROMBIN [id number] 06:39:00 Test Item Value Reference Range Interpretation [...] METER 162 mg/dL 70-110 H TESTED AT [place] [address] ([facility]) (test code = [facility] 1538) [address] POCT-GLUCOSE [id number] 18:15:00 Test Item Value Reference Range Interpretation Comments POC-GLUCOSE METER 127 mg/dL 70-110 H TESTED AT [place] [address] ([facility]) (test code = [facility] 1538) [address] BASIC METABOLIC [id number] 08:18:00 Test Item Value Reference Range Interpretation [...] S NOT APPLICABLE FOR DIALYSIS PATIEN TS. [id number] 08:18:00 Test Item Value Reference Range Interpretation [...] 0-0 (BEAKER) (test code = 413) POCT-GLUCOSE [id number] 05:58:00 Test Item Value Reference Range Interpretation Comments POC-GLUCOSE METER 153 mg/dL 70-[address] [facility] 6720 (BEAKER) (test code = [place] 1538) [address] POCT-GLUCOSE [id number] 23:35:00 Test Item Value Reference Range Interpretation Comments POC-GLUCOSE METER 170 mg/dL 70-110 H TESTED AT [facility] 6720 (BEAKER) (test code = TEX Sh[place]azz [facility] 1538) [address] POCT-GLUCOSE [id number] 17:28:00 Test Item Value Reference Range Interpretation Comments POC-GLUCOSE METER 155 mg/dL 70-110 H TESTED AT [place] [address] ([facility]) (test code = TEX Sh[place] [facility] 1538) [address] HEMOGLOBIN AND [id number] 17:16:00 Test Item Value Reference Range Interpretation Comments HEMOGLOBIN (BEAKER) (test code = 7.9 GM/DL 13.7-17.5 L 410) HEMATOCRIT (BEAKER) (test code = 24.9 % 40.1-51.0 L 411) BLOOD [id number] 13:01:00 Test Item Value Reference Range Interpretation Comments CULTURE (BEAKER) (test No growth in 5 days code = 1095) BLOOD [id number] 13:00:00 Test Item Value Reference Range Interpretation Comments CULTURE (BEAKER) (test No growth in 5 days code = 1095) POCT-GLUCOSE [id number] 11:55:00 Test Item Value Reference Range Interpretation Comments POC-GLUCOSE METER 157 mg/dL 70-110 H TESTED AT [place] [address] ([facility]) (test code = [facility] Mele [facility] 1538) [address] ANTI-MITOCHONDRIAL AB, REFLEX TO [id number] 10:22:00 Test Item Value Reference Range Interpretation Comments SCAN RESULT (test code = 2483351) POCT-GLUCOSE [id number] 05:46:00 Test Item Value Reference Range Interpretation Comments POC-GLUCOSE METER 161 mg/dL 70-110 H TESTED AT [place] [address] ([facility]) (test code = TEX Sh[place]azz [facility] 1538) [address] HEPATIC FUNCTION [id number] 04:08:00 Test Item Value Reference Range Interpretation [...] (test code = 30 U/L 6-55 347) [id number] 04:03:00 Test Item Value Reference Range Interpretation Comments PHOSPHORUS (BEAKER) (test code = 2.4 mg/dL 2.3-4.7 604) Check Serum Phosphorus level 4 hours after IV phosphorus replacement or 8 hours after PO replacementcompleted.[id number] 04:03:00 Test Item Value Reference Range Interpretation Comments MAGNESIUM (BEAKER) (test code = 2.5 mg/dL 1.6-2.6 627) Check Serum Phosphorus level 4 hours after IV phosphorus replacement or 8 hours after PO replacementcompleted.BASIC METABOLIC [id number] 04:03:00 Test Item Value Reference Range Interpretation [...] after PO replacementcompleted.CBC W/PLT COUNT & AUTO [id number] 03:47:00 Test Item Value Reference Range Interpretation [...] (BEAKER) (test code = 2801) HEMOGLOBIN AND [id number] 03:46:00 Test Item Value Reference Range Interpretation Comments HEMOGLOBIN (BEAKER) (test code = 7.7 GM/DL 13.7-17.5 L 410) HEMATOCRIT (BEAKER) (test code = 24.8 % 40.1-51.0 L 411) POCT-GLUCOSE [id number] 01:04:00 Test Item Value Reference Range Interpretation Comments POC-GLUCOSE METER 150 mg/dL 70-110 H [facility] [place] [address] [facility] (test code = [place] Sh[place]azz [facility] 1538) [address] SPUTUM CULTURE + GRAM [id number] 19:57:00 Test Item Value Reference Range Interpretation Comments CULTURE (BEAKER) No growth (test code = 1095) GRAM STAIN RESULT 4+ WBCs (BEAKER) (test code = 1123) GRAM STAIN RESULT 0-5 epithelial cells (BEAKER) (test code = 75192) GRAM STAIN RESULT <1+ gram positive cocci (BEAKER) (test code = in pairs 78453) HEMOGLOBIN AND [id number] 16:09:00 Test Item Value Reference Range Interpretation Comments HEMOGLOBIN (BEAKER) (test code = 7.8 GM/DL 13.7-17.5 L 410) HEMATOCRIT (BEAKER) (test code = 25.1 % 40.1-51.0 L 411) POCT-GLUCOSE [id number] 16:06:00 Test Item Value Reference Range Interpretation Comments POC-GLUCOSE METER 143 mg/dL 70-110 H TESTED AT [place] [address] ([facility]) (test [facility] = [facility] 1538) [address] POCT-GLUCOSE [id number] 11:55:00 Test Item Value Reference Range Interpretation Comments POC-GLUCOSE METER 148 mg/dL 70-110 H TESTED AT [place] [address] ([facility]) (test code = [facility] 1538) [address] RAD, ABDOMEN/KUB, 1 VIEW [id number] 10:26:00Reason for exam:->Check position of NGTFINAL REPORT [...] MDReport Verified Date/Time: 03/07/2018 10:26:54 Reading Location: [facility] C013T Transitional Reading Room HEPATIC FUNCTION [id number] 09:14:00 Test Item Value Reference Range Interpretation [...] 6-55 347) CBC W/PLT COUNT & AUTO [id number] 06:53:00 Test Item Value Reference Range Interpretation [...] PERCENT (BEAKER) (test code = 2801) POCT-GLUCOSE [id number] 06:23:00 Test Item Value Reference Range Interpretation Comments POC-GLUCOSE METER 125 mg/dL 70-[address] [facility] 6720 (BEAKER) (test code = [place] 1538) [address] [id number] 05:53:00 Test Item Value Reference Range Interpretation Comments PHOSPHORUS (BEAKER) (test code = 2.7 mg/dL 2.3-4.7 604) Check Serum Phosphorus level 4 hours after IV phosphorus replacement or 8 hours after PO replacementcompleted.[id number] 05:53:00 Test Item Value Reference Range Interpretation Comments MAGNESIUM (BEAKER) (test code = 2.6 mg/dL 1.6-2.6 627) Check Serum Phosphorus level 4 hours after IV phosphorus replacement or 8 hours after PO replacementcompleted.BASIC METABOLIC [id number] 05:53:00 Test Item Value Reference Range Interpretation [...] or 8 hours after PO replacementcompleted.HEMOGLOBIN AND [id number] 05:29:00 Test Item Value Reference Range Interpretation Comments HEMOGLOBIN (BEAKER) (test code = 8.0 GM/DL 13.7-17.5 L 410) HEMATOCRIT (BEAKER) (test code = 26.1 % 40.1-51.0 L 411) HEMOGLOBIN AND [id number] 23:58:00 Test Item Value Reference Range Interpretation Comments HEMOGLOBIN (BEAKER) (test code = 6.8 GM/DL 13.7-17.5 L 410) HEMATOCRIT (BEAKER) (test code = 22.5 % 40.1-51.0 L 411) MRSA [id number] 23:57:00 Test Item Value Reference Range Interpretation Comments CULTURE (BEAKER) (test code No MRSA isolated = 1095) POCT-GLUCOSE [id number] 22:48:00 Test Item Value Reference Range Interpretation Comments POC-GLUCOSE METER 168 mg/dL 70-110 H TESTED AT [facility] 6720 (BEAKER) (test code = TEX Sh[place]azz [facility] 1538) [address] POCT-GLUCOSE [id number] 18:01:00 Test Item Value Reference Range Interpretation Comments POC-GLUCOSE METER 162 mg/dL 70-110 H TESTED AT [place] [address] ([facility]) (test code = TEX Sh[place] [facility] 1538) [address] HEMOGLOBIN AND [id number] 12:49:00 Test Item Value Reference Range Interpretation Comments HEMOGLOBIN (BEAKER) (test code = 7.4 GM/DL 13.7-17.5 L 410) HEMATOCRIT (BEAKER) (test code = 23.9 % 40.1-51.0 L 411) STOOL CULTURE + SHIGA [id number] 10:14:00 Test Item Value Reference Range Interpretation Comments CULTURE ([facility]) No Salmonella, Shigella (test code = 1095) or Campylobacter isolated POCT-GLUCOSE [id number] 09:55:00 Test Item Value Reference Range Interpretation Comments POC-GLUCOSE METER 143 mg/dL 70-110 H TESTED AT [place] [address] ([facility]) (test code = TEX Sh[place] [facility] 1538) [address] CBC W/PLT COUNT & AUTO [id number] 07:15:00 Test Item Value Reference Range Interpretation [...] 0-1 PERCENT (BEAKER) (test code = 2801) [id number] 05:47:00 Test Item Value Reference Range Interpretation Comments PHOSPHORUS (BEAKER) (test code = 2.8 mg/dL 2.3-4.7 604) Check Serum Phosphorus level 4 hours after IV phosphorus replacement or 8 hours after PO replacementcompleted.[id number] 05:47:00 Test Item Value Reference Range Interpretation Comments MAGNESIUM (BEAKER) (test code = 2.6 mg/dL 1.6-2.6 627) Check Serum Phosphorus level 4 hours after IV phosphorus replacement or 8 hours after PO replacementcompleted.BASIC METABOLIC [id number] 05:47:00 Test Item Value Reference Range Interpretation [...] after PO replacementcompleted.RAD, CHEST, 1 VIEW, NON [id number] 05:00:00 Reason for exam:->resp failureShould this be [...] Jha Verified Date/Time: 03/06/2018 05:00:57 Reading Location: [address] Transitional Reading Room POCT-GLUCOSE [id number] 04:50:00 Test Item Value Reference Range Interpretation Comments POC-GLUCOSE METER 133 mg/dL 70-[address] [facility] 67[address] [facility] (test code = [place] 1538) [address] HEMOGLOBIN AND [id number] 23:14:00 Test Item Value Reference Range Interpretation Comments HEMOGLOBIN (BETIANNA) (test code = 7.1 GM/DL 13.7-17.5 L 410) HEMATOCRIT (BEAKER) (test code = 23.5 % 40.1-51.0 L 411) POCT-GLUCOSE [id number] 23:12:00 Test Item Value Reference Range Interpretation Comments POC-GLUCOSE METER 146 mg/dL 70-110 H TESTED AT [place] [address] (BEAKER) (test code = [facility] [place] 1538) [address] POCT-GLUCOSE [id number] 22:11:00 Test Item Value Reference Range Interpretation Comments POC-GLUCOSE METER 164 mg/dL 70-110 H TESTED AT [place] [address] (BEAKER) (test code = [facility] [place] 1538) [address] HEMOGLOBIN AND [id number] 18:51:00 Test Item Value Reference Range Interpretation Comments HEMOGLOBIN (BEAKER) (test code = 7.3 GM/DL 13.7-17.5 L 410) HEMATOCRIT (BEAKER) (test code = 23.8 % 40.1-51.0 L 411) POCT-GLUCOSE [id number] 17:35:00 Test Item Value Reference Range Interpretation Comments POC-GLUCOSE METER 169 mg/dL 70-110 H TEST[facility] AT [place] [address] [facility] (test code = [facility] [place] 1538) [address] OCCULT BLOOD, [id number] 16:20:00 Test Item Value Reference Range Interpretation Comments FECAL OCCULT BLOOD (BEAKER) (test Positive Negative A code = 618) HEPATIC FUNCTION [id number] 13:39:00 Test Item Value Reference Range Interpretation [...] = 14 U/L 6-55 347) BASIC METABOLIC [id number] 13:39:00 Test Item Value Reference Range Interpretation [...] APPLICABLE FOR DIALYSIS PATIEN TS. VANCOMYCIN LEVEL, [id number] 13:35:00 Test Item Value Reference Range Interpretation Comments VANCOMYCIN RANDOM (BEAKER) (test 10.1 ug/mL code = 523) Reference Range: No NormalsHEMOGLOBIN AND [id number] 12:47:00 Test Item Value Reference Range Interpretation Comments HEMOGLOBIN (BEAKER) (test code = 7.3 GM/DL 13.7-17.5 L 410) HEMATOCRIT (BEAKER) (test code = 23.7 % 40.1-51.0 L 411) POCT-GLUCOSE [id number] 12:14:00 Test Item Value Reference Range Interpretation Comments POC-GLUCOSE METER 189 mg/dL 70-[address] [facility] 6720 (BEAKER) (test code = [place] 1538) [address] ANTI-NUCLEAR ANTIBODY (STEPHY)2018-03-05 10:39:00 Test Item Value Reference Range Interpretation Comments ANTI-NUCLEAR ANTIBODY (STEPHY) (BEAKER) Negative Negative (test code = 418) Test performed by IFA method.Test performed by IFA method.B-TYPE NATRIURETIC FACTOR (BNP)2018-03-05 08:21:00 Test Item Value Reference Range Interpretation Comments B-TYPE NATRIURETIC PEPTIDE (BEAKER) 222 pg/mL 0-100 H (test code = 700) [id number] 08:07:00 Test Item Value Reference Range Interpretation Comments AMMONIA (BEAKER) (test code = 348) 38 mol/L 18-72 RAD, CHEST, 1 VIEW, NON [id number] 06:28:00Reason for exam:->resp failureShould this be performed at the bedside?->YesFINAL REPORT RAD, CHEST, 1 VIEW, NON DEPT INDICATION: resp failure COMPARISON: Prior day's exam FINDINGS: Portable frontal view of the chest. IMPRESSION: Support Lines: Stable. Lungs and pleura: Unchanged airspace and pleural opacities. No pneumothorax.Heart and mediastinum: Stable contours. Stable surgical changes.Additional findings: None. Signed: David Jhaepdave Verified Date/Time: 03/05/2018 06:28:24 Reading Location: [address] Transitional Reading Room SHIGA TOXIN [id number] 06:12:00 Test Item Value Reference Range Interpretation Comments SHIGA TOXIN 1 (BEAKER) (test Not detected Not detected code = 2177) SHIGA TOXIN 2 (BEAKER) (test Not detected Not detected code = 2179) CBC W/PLT COUNT & AUTO [id number] 05:32:00 Test Item Value Reference Range Interpretation [...] (BEAKER) (test code = 2801) BASIC METABOLIC [id number] 05:31:00 Test Item Value Reference Range Interpretation [...] or 8 hours after PO replacementcompleted.BLOOD GAS, [id number] 05:29:00 Test Item Value Reference Range Interpretation [...] (BEAKER) (test code = 1819) 30.0 % [id number] 05:28:00 Test Item Value Reference Range Interpretation Comments PHOSPHORUS (BEAKER) (test code = 2.4 mg/dL 2.3-4.7 604) Check Serum Phosphorus level 4 hours after IV phosphorus replacement or 8 hours after PO replacementcompleted.[id number] 05:28:00 Test Item Value Reference Range Interpretation Comments MAGNESIUM (BEAKER) (test code = 2.8 mg/dL 1.6-2.6 H 627) Check Serum Phosphorus level 4 hours after IV phosphorus replacement or 8 hours after PO replacementcompleted.POCT-GLUCOSE [id number] 04:14:00 Test Item Value Reference Range Interpretation Comments POC-GLUCOSE METER 164 mg/dL 70-[address] [facility] 6720 (BEAKER) (test code = [place] 1538) [address] POCT-GLUCOSE [id number] 21:41:00 Test Item Value Reference Range Interpretation Comments POC-GLUCOSE METER 161 mg/dL 70-[address] [facility] 6720 (RUBY) (test code = TEX Shabazz [facility] 1538) [address] POCT-GLUCOSE [id number] 17:49:00 Test Item Value Reference Range Interpretation Comments POC-GLUCOSE METER 163 mg/dL 70-[address] [facility] 67[address] [facility] (test code = TEX [place] [facility] 1538) [address] CT, [id number] 16:57:00FINAL REPORT CT of the abdomen and [...] Cardiomegaly. Mild splenomegaly. Status post cholecystectomy. Signed: Nora, Shama MDReport Verified Date/Time: 03/04/2018 16:57:24 Reading Location: [facility] B1 C013Y CT Body Reading Room Sunita ctronically signed by: SHAMA DA SILVA M.D. on 03/04/2018 04:57 PMSTOOL PATH CHARGE 2018-03-04 14:52:00 Test Item Value Reference Range Interpretation Comments PATHOGEN EXAM CHARGED (BEAKER) (test Done code = 2381) BASIC METABOLIC [id number] 12:28:00 Test Item Value Reference Range Interpretation [...] APPLICABLE FOR DIALYSIS PATIEN TS. HEMOGLOBIN AND [id number] 12:08:00 Test Item Value Reference Range Interpretation Comments HEMOGLOBIN (BEAKER) (test code = 8.2 GM/DL 13.7-17.5 L 410) HEMATOCRIT (BEAKER) (test code = 26.2 % 40.1-51.0 L 411) POCT-GLUCOSE [id number] 11:16:00 Test Item Value Reference Range Interpretation Comments POC-GLUCOSE METER 159 mg/dL 70-[address] [facility] 6720 (BEAKER) (test code = [place] 1538) [address] LACTIC ACID, ARTERIAL, WHOLE [id number] 10:35:00 Test Item Value Reference Range Interpretation Comments LACTATE BLOOD ARTERIAL (2) 0.7 mmol/L 0.5-2.2 (BEAKER) (test code = 2874) [id number] 08:12:00 Test Item Value Reference Range Interpretation Comments AMMONIA (BEAKER) (test code = 348) 44 mol/L 18-72 RAD, CHEST, 1 VIEW, NON [id number] 05:12:00Reason for exam:->resp failureShould this be performed [...] Jha Verified Date/Time: 03/04/2018 05:12:43 Reading Location: [address] Transitional Reading Room BASIC METABOLIC PANEL [...] S NOT APPLICABLE FOR DIALYSIS PATIEN TS. [id number] 04:55:00 Test Item Value Reference Range Interpretation Comments MAGNESIUM (BEAKER) (test code = 3.1 mg/dL 1.6-2.6 H 627) CBC W/PLT COUNT & AUTO [id number] 04:38:00 Test Item Value Reference Range Interpretation [...] (BEAKER) (test code = 2801) BLOOD GAS, [id number] 04:23:00 Test Item Value Reference Range Interpretation [...] (test code = 1819) 40.0 % POCT-GLUCOSE [id number] 22:12:00 Test Item Value Reference Range Interpretation Comments POC-GLUCOSE METER 171 mg/dL 70-[address] [facility] 6720 (BEAKER) (test code = TEX [place] [facility] 1538) [address] TROPONIN [id number] 22:08:00 Test Item Value Reference Range Interpretation [...] neurological disease, and persistent tachyarrhythmia.HEPATITIS A ANTIBODY, [id number] 20:40:00 Test Item Value Reference Range Interpretation Comments HEPATITIS A IGG ANTIBODY (BEAKER) Reactive Nonreactive A (test code = 2797) ALPHA FETOPROTEIN (AFP), TUMOR [id number] 20:40:00 Test Item Value Reference Range Interpretation Comments ALPHA-FETOPROTEIN (BEAKER) (test code < ng/mL <10.0 = 1094) CARCINOEMBRYONIC ANTIGEN (CEA)2018-03-03 20:36:00 Test Item Value Reference Range Interpretation Comments CARCINOEMBRYONIC ANTIGEN (BEAKER) 2.2 ng/mL 0.0-5.0 (test code = 685) HEPATITIS B CORE ANTIBODY, [id number] 20:36:00 Test Item Value Reference Range Interpretation Comments HEPATITIS B CORE TOTAL ANTIBODY Nonreactive Nonreactive (BEAKER) (test code = 497) HEPATITIS B SURFACE [id number] 20:23:00 Test Item Value Reference Range Interpretation Comments HEPATITIS B SURFACE ANTIBODY < mIU/mL <8.0 (BEAKER) (test code = 647) HEPATITIS B SURFACE [id number] 20:22:00 Test Item Value Reference Range Interpretation Comments HEPATITIS B SURFACE ANTIGEN (2) Nonreactive Nonreactive (BEAKER) (test code = 2585) HEPATITIS C [id number] 20:22:00 Test Item Value Reference Range Interpretation Comments HEPATITIS C ANTIBODY (BEAKER) Nonreactive Nonreactive (test code = 367) POCT-GLUCOSE [id number] 19:30:00 Test Item Value Reference Range Interpretation Comments POC-GLUCOSE METER 169 mg/dL 70-[address] [facility] 6720 [facility] (test code = [facility] 1538) [address] RAD, CHEST, 1 VIEW, NON [id number] 19:12:00Reason for exam:- >intubatedShould this be performed [...] MDReport Verified Date/Time: 03/03/2018 19:12:40 Reading Location: [address] Reading Room FECAL [id number] 18:56:00 Test Item Value Reference Range Interpretation Comments FECAL LEUKOCYTES No fecal leukocytes No fecal leukocytes (BEAKER) (test code = seen seen 992) RAD, ABDOMEN/KUB, 1 VIEW [id number] 18:41:00Reason for exam:->NGT placement FINAL REPORT Abdomen date 03/03/2018 Comment: Frontal view of the abdomen demonstrates a nasogastric tube present with tip noted in the in the body of the stomach. Signed: Israel Barr MDReport Verified Date/Time: 03/03/2018 18:41:41 Reading Location: [place] [id number] Consult ReadingRoom FERRITIN 2018-03-03 18:13:00 Test Item Value Reference Range Interpretation Comments FERRITIN (BEAKER) (test code = 361) 28 ng/mL 5-275 TROPONIN [id number] 17:26:00 Test Item Value Reference Range Interpretation [...] acute neurological disease, and persistent tachyarrhythmia.HEPATIC FUNCTION [id number] 17:19:00 Test Item Value Reference Range Interpretation [...] 20-55 (test code = 2590) BASIC METABOLIC [id number] 17:19:00 Test Item Value Reference Range Interpretation [...] DIALYSIS PATIEN TS. Specimen slightly ictericHEMOGLOBIN AND [id number] 17:15:00 Test Item Value Reference Range Interpretation Comments HEMOGLOBIN (BEAKER) (test code = 8.3 GM/DL 13.7-17.5 L 410) HEMATOCRIT (BEAKER) (test code = 25.7 % 40.1-51.0 L 411) PROTHROMBIN TIME/[id number] 16:53:00 Test Item Value Reference Range Interpretation Comments PROTIME (BEAKER) (test code = 16.1 seconds 11.7-14.7 H 759) INR (BEAKER) (test code = 370) 1.3 <=5.9 RECOMMENDED COUMADIN/WARFARIN INR THERAPY RANGESSTANDARD DOSE: 2.0 - 3.0 Includes: PROPHYLAXIS forvenous thrombosis, systemic embolization; TREATMENT for venous thrombosis and/or pulmonary embolus.HIGH RISK: Target INR is 2.5-3.5 for patients with mechanical heart valves.[id number] 16:53:00 Test Item Value Reference Range Interpretation Comments FIBRINOGEN LEVEL (BEAKER) (test 333 mg/dl 225-434 code = 658) [id number] 16:51:00 Test Item Value Reference Range Interpretation Comments PROCALCITONIN (BEAKER) (test code = < ng/mL <0.05 3036) SEPSIS RISK (ng/mL)Low: 0.05-0.50Intermediate: 0.51-2.00High: >=2.01BLOOD GAS, [id number] 16:07:00 Test Item Value Reference Range Interpretation [...] = 1819) 60.0 % EEG AWAKE AND [id number] 14:50:00Reason for exam:->altered mental statusEEG REPORT: Kaylee Arriaga, [facility] Date of EEDate of report: EEG start time: 1216EEG end time: 1237EEG #: [id number] No: [id number] ICD Code: #: R41.82 Altered mental status, unspecified (ICD 9: 780.97)CPT Code: #: 93073: 03. EEG coma or sleep only; 20-40 [...] also be associated withother settings of widespread GRINDER SET UP OPERATOR GEAR TOOL insults, including the aftermath of prolonged seizures. Intermittent attenuations reflect cortical suppression.Clinical Fellow: Henri YañezNeurophysiologist: Wil Mathias POCT-LACTIC ACID, [id number] 14:13:00 Test Item Value Reference Range Interpretation Comments POC-LACTIC ACID, 1.2 mmol/L 0.4-1.3 TESTED AT [facility] 6720 ARTERIAL (BEAKER) [place] (test code = 2804) [address] POCT-BLOOD GASES, [id number] 14:13:00 Test Item Value Reference Range Interpretation Comments TEMP, CELSIUS-POC 37.0 (BEAKER) (test code = 1834) FIO2-POC (BEAKER) TESTED AT [place] [address] (test code = 1835) MYRNA [facility] [address] PH, ARTERIAL-POC 7.496 7.350-7.450 H (BEAKER) (test [...] -2.0-3.0 ARTERIAL-POC (BEAKER) (test code = 1841) [id number] 14:13:00 Test Item Value Reference Range Interpretation Comments POC-SODIUM (BEAKER) 151 meq/L 135-148 H TESTED A T [place] [address] (test code = 1542) MYRNA [facility] [place] [address] [id number] 14:13:00 Test Item Value Reference Range Interpretation Comments POC-POTASSIUM 3.7 meq/L 3.6-5.5 TESTED AT [facility] 6720 (BEAKER) (test code [facility] [address] = 1540) [id number] 14:13:00 Test Item Value Reference Range Interpretation Comments POC-GLUCOSE (BEAKER) 170 mg/dL 70-110 H TESTED AT [place] [address] (test code = 1855) [facility] [place] [address] POCT-CALCIUM [id number] 14:13:00 Test Item Value Reference Range Interpretation Comments POC-CALCIUM IONIZED 1.20 mmol/L 1.12-1.27 TESTED A T [place] [address] ([facility]) (test code = [facility] Mele [facility] 1536) [address] [id number] 14:13:00 Test Item Value Reference Range Interpretation Comments POC-HEMATOCRIT 24 % 40-50 L TESTED AT [place] [address] ([facility]) (test code = [facility] [address] 2578) [id number] 14:13:00 Test Item Value Reference Range Interpretation Comments POC-HEMOGLOBIN 8.2 g/dL 13.0-16.8 L TESTED AT [place] [address] ([facility]) (test code = [facility] 1856) [address]UHPEHG AT [place] [address] [place] [address] VITAMIN B12 AND [id number] 13:00:00 Test Item Value Reference Range Interpretation Comments VITAMIN B12 (BEAKER) (test code = 715 pg/mL 213-816 774) [facility]ATE [facility] (test code = 362) 17.0 ng/mL >=7.0 POCT-GLUCOSE [id number] 12:55:00 Test Item Value Reference Range Interpretation Comments POC-GLUCOSE METER 190 mg/dL 70-110 H TESTED AT [place] [address] ([facility]) (test code = [facility] 1538) [address] [id number] 11:41:00 Test Item Value Reference Range Interpretation Comments PROCALCITONIN (BEAKER) (test code = < ng/mL <0.05 3036) SEPSIS RISK (ng/mL)Low: 0.05-0.50Intermediate: 0.51-2.00High: >=2.01URINALYSIS W/ REFLEX URINE [id number] 11:27:00 Test Item Value Reference Range Interpretation [...] (test code = 2795) TSH/FREE T4 IF [id number] 11:19:00 Test Item Value Reference Range Interpretation Comments THYROID STIMULATING HORMONE 2.67 uIU/mL 0.35-4.94 (BEAKER) (test code = 772) TROPONIN [id number] 11:04:00 Test Item Value Reference Range Interpretation [...] failure, acidosis, acute neurological disease, and persistent tachyarrhythmia.[id number] 11:00:00 Test Item Value Reference Range Interpretation Comments SODIUM (BEAKER) (test code = 381) 148 meq/L 136-145 H HEMOGLOBIN [id number] 10:53:00 Test Item Value Reference Range Interpretation Comments HEMOGLOBIN A1C (BEAKER) (test code = 6.2 % 4.3-6.1 H 368) [id number] 10:45:00 Test Item Value Reference Range Interpretation Comments AMMONIA (BEAKER) (test code = 348) 98 mol/L 18-72 H C. DIFFICILE GDH [id number] 09:57:00 Test Item Value Reference Range Interpretation Comments CDT TOXIN (test code Negative Negative = [id number]) CDT GDH ANTIGEN Positive Negative A C. difficile present but (test code = toxin not detec vikki. [id number]) Indicates colon ization with non-toxige amberly strain or level of tox in below detectable leve ls. No need for enteri c isolation. All atment is rarely needed ( only when strong clinical suspicion for Clostridium difficile infection) Testing performed by QUIQ Rapid Cassette Assay. For GDH, published sensitivity of the assay is 98.7% compared to cytotoxicity testing. For Toxin AB, published sensitivity is 87.8% and specificity 99.4% compared to cytotoxicity testing.Verification of kit performance was done by the [facility] Microbiology Lab prior to clinical use.BASIC METABOLIC [id number] 07:28:00 Test Item Value Reference Range Interpretation [...] pg/mL 0-100 H (test code = 700) [id number] 06:52:00 Test Item Value Reference Range Interpretation Comments PHOSPHORUS (BEAKER) (test code = 2.3 mg/dL 2.3-4.7 604) [id number] 06:52:00 Test Item Value Reference Range Interpretation [...] code = 413) MR, MRA, BRAIN, WITHOUT [id number] 05:21:00Reason for exam:->Ischemic Stroke EvaluationFINAL REPORT MRI Brain without contrast Clinical History: Ischemic Stroke EvaluationAMS, Afib Technique: MRI of the brain utilizing axial T2, FLAIR, GRE, DWI; sagittal and coronal T1-weighted images. MRA of the head utilizing 3-D pdnm-cm-bodkmo technique, with 3-D reconstructions. MRA of the neck utilizing 2-D and 3-D otpu-mi-jsdeyk technique, with 3-D reconstructions. Comparisons: None Findings:MRI [...] MRA head: No evidence for a major [place] proximal branch vessel occlusion. MRA [...] Verified Date/Time: 03/03/2018 05:21:46 Reading Location: [address] Reading Room MR, MRA, NECK, WITHOUT IV [id number] 05:21:00 Reason for exam:->Ischemic Stroke EvaluationFINAL REPORT MRI Brain without contrast Clinical History: Ischemic Stroke Eval uationAMS, Afib Technique: MRI of the brain utilizing axial T2, FLAIR, GRE, DWI; sagittal and coronal T1-weighted images. MRA of the head utilizing 3-D uyjj-zr-fhkkds technique, with 3-D reconstructions. MRA of the neck utilizing 2- D and 3-D npma-jn-afgvcn technique, with 3-D reconstructions. Comparisons: None Findings:MRI [...] MRA head: No evidence for a major [place] proximal branch vessel occlusion. MRA [...] Verified Date/Time: 03/03/2018 05:21:46 Reading Location: [address] Reading Room MR, BRAIN, WITHOUT [id number] 05:21:00Reason for exam:->Ischemic Stroke EvaluationFINAL REPORT MRI Brain without contrast Clinical History: Ischemic Stroke EvaluationAMS, Afib Technique: MRI of the brain utilizing axial T2, FLAIR, GRE, DWI; sagittal and coronal T1-weighted images. MRA of the head utilizing 3-D tdnb-iy-znenhv technique, with 3-D reconstructions. MRA of the neck utilizing 2-D and 3-D kpvs-cz-lazguv technique, with 3-D reconstructions. Comparisons: None Findings:MRI [...] MRA head: No evidence for a major [place] proximal branch vessel occlusion. MRA [...] Jha Verified Date/Time: 03/03/2018 05:21:46 Reading Location: [address] Reading Room POCT-GLUCOSE [id number] 05:15:00 Test Item Value Reference Range Interpretation Comments POC-GLUCOSE METER 207 mg/dL 70-[address] [facility] 6720 (BEAKER) (test code = [place] 1538) [address] RAD, CHEST, 1 VIEW, NON [id number] 01:11:00Reason for exam:->AMSShould this be performed at [...] MDReport Verified Date/Time: 03/03/2018 01:11:47 Reading Location: [address] Reading Room URINALYSIS WITH MICROSCOPIC IF [id number] 00:58:00 Test Item Value Reference Range Interpretation [...] 463) SOURCE(BEAKER) (test code = 2795) URINALYSIS [id number] 00:58:00 Test Item Value Reference Range Interpretation Comments RBC UA (BEAKER) (test code = 519) 1 /HPF WBC UA (BEAKER) (test code = 520) 1 /HPF SQUAMOUS EPITHELIAL (BEAKER) (test < /HPF code = 516) AMORPHOUS CRYSTALS (BEAKER) (test Occasional code = 1584) CT, BRAIN/STROKE [id number] 23:16:00FINAL REPORT CT Head without contrast CLINICAL [...] Jha Verified Date/Time: 03/02/2018 23:16:55 Reading Location: [address] Reading Room IC ACID, VENOUS, WHOLE [id number] 22:01:00 Test Item Value Reference Range Interpretation Comments LACTATE BLOOD VENOUS (2) (BEAKER) 1.6 mmol/L 0.5-2.2 (test code = 2872) POCT-GLUCOSE [id number] 21:31:00 Test Item Value Reference Range Interpretation Comments POC-GLUCOSE METER 207 mg/dL 70-[address] [facility] 6720 (BEAKER) (test code = [place] [facility] 1538) [address] OCCULT BLOOD, [id number] 19:48:00 Test Item Value Reference Range Interpretation Comments FECAL OCCULT BLOOD (BEAKER) (test Positive Negative A code = 618) BASIC METABOLIC [id number] 17:26:00 Test Item Value Reference Range Interpretation [...] APPLICABLE FOR DIALYSIS PATIEN TS. HEMOGLOBIN AND [id number] 17:09:00 Test Item Value Reference Range Interpretation Comments HEMOGLOBIN (BEAKER) (test code = 8.2 GM/DL 13.7-17.5 L 410) HEMATOCRIT (BEAKER) (test code = 25.7 % 40.1-51.0 L 411) POCT-GLUCOSE [id number] 16:40:00 Test Item Value Reference Range Interpretation Comments POC-GLUCOSE METER 212 mg/dL 70-[address] [facility] 6720 [facility] (test code = [place] [facility] 1538) [address] CT, BRAIN, WITHOUT [id number] 12:26:00FINAL REPORT CT head without contrast 03/02/2018 [...] Gaona Verified Date/Time: 03/02/2018 12:26:23 Reading Location: [facility] C013V Neuro Reading Room HEMOGLOBIN AND [id number] 12:14:00 Test Item Value Reference Range Interpretation Comments HEMOGLOBIN (BEAKER) (test code = 8.3 GM/DL 13.7-17.5 L 410) HEMATOCRIT (BEAKER) (test code = 25.9 % 40.1-51.0 L 411) POCT-GLUCOSE [id number] 10:26:00 Test Item Value Reference Range Interpretation Comments POC-GLUCOSE METER 178 mg/dL 70-[address] [facility] 6720 (BEAKER) (test code = [place] [facility] 1538) [address] [id number] 05:10:00 Test Item Value Reference Range Interpretation Comments MAGNESIUM (BEAKER) (test code = 2.2 mg/dL 1.6-2.6 627) BASIC METABOLIC [id number] 05:10:00 Test Item Value Reference Range Interpretation [...] 0-0 (test code = 413) BASIC METABOLIC [id number] 06:30:00 Test Item Value Reference Range Interpretation [...] PATIEN TS. CBC W/PLT COUNT & AUTO [id number] 06:30:00 Test Item Value Reference Range Interpretation [...] = 2801) RAD, CHEST, 1 VIEW, NON [id number] 04:10:00post-operative day 1Reason for exam:->chfShould this be [...] Jha Verified Date/Time: 09/11/2017 04:10:08 Reading Location: [address] Reading Room BASIC METABOLIC PANEL 2017-09-11 [...] Specimen slightly ictericCBC W/PLT COUNT & AUTO [id number] 03:48:00 Test Item Value Reference Range Interpretation [...] 0-1 PERCENT (BEAKER) (test code = 2801) [id number] 16:36:00 Test Item Value Reference Range Interpretation Comments ACTIVATED CLOTTING TIME 142 sec TEST ED AT [place] [address] (BEAKER) (test code = [facility] Mele [place] [address]) [address] [id number] 16:02:00 Test Item Value Reference Range Interpretation Comments ACTIVATED CLOTTING TIME 279 sec TEST ED AT [place] [address] ([facility] (test code = [place] [address]) [address] [id number] 16:02:00 Test Item Value Reference Range Interpretation Comments ACTIVATED CLOTTING TIME 252 sec TEST ED AT [place] [address] ([facility] (test code = [place] [address]) [address] B-TYPE NATRIURETIC FACTOR (BNP)2017-08-24 15:17:00 Test Item Value Reference Range Interpretation Comments B-TYPE NATRIURETIC PEPTIDE (BEAKER) 170 pg/mL 0-100 H (test code = 700) BASIC METABOLIC [id number] 15:08:00 Test Item Value Reference Range Interpretation [...] APPLICABLE FOR DIALYSIS PATIEN TS. Specimen slightly [id number] 15:08:00 Test Item Value Reference Range Interpretation Comments ALBUMIN (BEAKER) (test code = 1145) 4.2 g/dL 3.5-5.0 PROTHROMBIN [id number] 14:59:00 Test Item Value Reference Range Interpretation [...] (BEAKER) (test code = 2801) BASIC METABOLIC [id number] 06:31:00 Test Item Value Reference Range Interpretation [...] APPLICABLE FOR DIALYSIS PATIEN TS. URINALYSIS W/ [id number] 17:39:00 Test Item Value Reference Range Interpretation [...] SOURCE(BEAKER) (test code Urine, Clean Catch = 2077) BASIC METABOLIC [id number] 05:57:00 Test Item Value Reference Range Interpretation [...] PATIEN TS. CBC W/PLT COUNT & AUTO [id number] 05:36:00 Test Item Value Reference Range Interpretation [...] (BEAKER) (test code = 2801) BASIC METABOLIC [id number] 07:35:00 Test Item Value Reference Range Interpretation [...] DIALYSIS PATIEN TS. Specimen slightly ictericBASIC METABOLIC [id number] 06:09:00 Test Item Value Reference Range Interpretation [...] = 700) RAD, CHEST, 1 VIEW, NON [id number] 17:23:00Reason for exam:->chfShould this be performed at [...] 07/28/2017 17:23:24 Reading Location: [facility] Radiology Reading Room URINE [id number] 10:09:00 Test Item Value Reference Interpretation Comments [...] 47) Resistant <0 or >40 COMPREHENSIVE METABOLIC [id number] 07:06:00 Test Item Value Reference Range Interpretation [...] Specimen slightly ictericCBC W/PLT COUNT & AUTO [id number] 06:35:00 Test Item Value Reference Range Interpretation [...] (BEAKER) (test code = 2801) URINALYSIS W/ [id number] 18:38:00 Test Item Value Reference Range Interpretation [...] = 2795) CBC W/PLT COUNT & AUTO [id number] 04:47:00 Test Item Value Reference Range Interpretation [...] (BEAKER) (test code = 2801) BASIC METABOLIC [id number] 04:36:00 Test Item Value Reference Range Interpretation [...] pg/mL 0-100 H (test code = 700) [id number] 07:02:00 Test Item Value Reference Range Interpretation [...] (BEAKER) (test code = 413) CT, CTA, [id number] 16:16:00Addendum BeginsREPORT STATUS:A Addendum: July 22, 2017 at 1620 hours I have reviewed the CT images for this study and I concur with the nonvascular imaging findings as dictated. Si gned: Sandip Christianson MDReport Verified Date/Time: 07/22/2017 16:16:14 Reading Location: [place] [address] Angio Body Reading RoomAddendum EndsFINAL REPORT CT [...] bypass surgery. The internal mammary arteries are alutiiq. A bypass graft is identified, that is [...] An addendum will be dictated by the [employer] Radiologist regarding the nonvascular findings. Signed: Abdoul Gallowayort Verified Date/Time: 07/22/2017 15:43:41 Reading Location: [facility] [address], CTA [id number] 16:16:00TAVRAddendum BeginsREPORT STATUS:A Addendum: July 22, 2017 at 1620 hours I have reviewed the CT images for this study and I concur with the nonvascular imaging findings as dictated. Si gned: Sandip Christianson Verified Date/Time: 07/22/2017 16:16:14 Reading Location: [facility] P048 Angio Body Reading RoomAddendum EndsFINAL REPORT [...] bypass surgery. The internal mammary arteries are alutiiq. A bypass graft is identified, that is [...] An addendum will be dictated by the [employer] Radiologist regarding the nonvascular findings. Signed: Abdoul Galloway MDReport Verified Date/Time: 07/22/2017 15:43:41 Reading Location: [place] [address] Cardiology MRI BASIC METABOLIC [id number] 05:06:00 Test Item Value Reference Range Interpretation [...] 0-100 H (test code = 700) POCT-GLUCOSE [id number] 20:48:00 Test Item Value Reference Range Interpretation Comments POC-GLUCOSE METER 133 mg/dL 70-[address] [facility] 6720 (BEAKER) (test code = [place] MARY ELLEN RAMIREZ 1538) [address] [id number] 06:17:00 Test Item Value Reference Range Interpretation Comments PHOSPHORUS (BEAKER) (test code = 2.3 mg/dL 2.3-4.7 604) [id number] 06:17:00 Test Item Value Reference Range Interpretation Comments MAGNESIUM (BEAKER) (test code = 2.2 mg/dL 1.6-2.6 627) BASIC METABOLIC [id number] 06:17:00 Test Item Value Reference Range Interpretation [...] PATIEN TS. CBC W/PLT COUNT & AUTO [id number] 05:58:00 Test Item Value Reference Range Interpretation [...] 0-1 PERCENT (BEAKER) (test code = 2801) [id number] 05:42:00 Test Item Value Reference Range Interpretation Comments MAGNESIUM (BEAKER) (test code = 2.2 mg/dL 1.6-2.6 627) BASIC METABOLIC [id number] 05:42:00 Test Item Value Reference Range Interpretation [...] PATIEN TS. CBC W/PLT COUNT & AUTO [id number] 08:51:00 Test Item Value Reference Range Interpretation [...] (BEAKER) (test code = 2801) BASIC METABOLIC [id number] 06:59:00 Test Item Value Reference Range Interpretation [...] APPLICABLE FOR DIALYSIS PATIEN TS. Specimen slightly [id number] 06:50:00 Test Item Value Reference Range Interpretation Comments MAGNESIUM (BEAKER) (test code = 2.2 mg/dL 1.6-2.6 627) [id number] 14:04:00 Test Item Value Reference Range Interpretation Comments CORTISOL, TOTAL (BEAKER) (test 14.3 ug/dL 3.7-19.4 code = 2755) B-TYPE NATRIURETIC FACTOR (BNP)2017-07-17 05:11:00 Test Item Value Reference Range Interpretation Comments B-TYPE NATRIURETIC PEPTIDE (BEAKER) 462 pg/mL 0-100 H (test code = 700) URIC [id number] 05:09:00 Test Item Value Reference Range Interpretation Comments URIC ACID (BEAKER) (test code = 9.8 mg/dL 2.6-7.2 H 773) [id number] 05:09:00 Test Item Value Reference Range Interpretation Comments MAGNESIUM (BEAKER) (test code = 2.0 mg/dL 1.6-2.6 627) COMPREHENSIVE METABOLIC [id number] 05:09:00 Test Item Value Reference Range Interpretation [...] PATIEN TS. CBC W/PLT COUNT & AUTO [id number] 04:52:00 Test Item Value Reference Range Interpretation [...] = 2801) RAD, CHEST, 1 VIEW, NON [id number] 04:01:00Reason for exam:- >oliguriaShould this be performed [...] MDReport Verified Date/Time: 07/17/2017 04:01:10 Reading Location: [address] Reading Room SODIUM, RANDOM URINE 2017-07-16 19:25:00 Test Item Value Reference Range Interpretation Comments SODIUM URINE (BEAKER) (test code = < meq/L 243) Reference Range: No NormalsCREATININE, RANDOM [id number] 19:14:00 Test Item Value Reference Range Interpretation Comments CREATININE URINE (BEAKER) (test 131.4 mg/dL code = 375) Reference Range: No NormalsPROTEIN, RANDOM [id number] 19:14:00 Test Item Value Reference Range Interpretation Comments PROTEIN, URINE (BEAKER) (test code = 23 mg/dL 0-14 H 1569) OSMOLALITY, [id number] 19:00:00 Test Item Value Reference Range Interpretation Comments OSMOLALITY URINE (BEAKER) (test 346 mOsm/kg 40-1400 code = 614) RAD, CHEST, 1 VIEW, NON [id number] 16:22:00Reason for exam:->central line placementShould this be performed at the bedside?->YesFINAL REPORT TECHNIQUE: Frontal chest radiograph dated 07/16/2017. CLINICAL HI STORY: Central line placement COMPARISON STUDY: Chest radiograph performed earlier the same day. IMPRESSION:Right-sided [place]iel catheter tip projects over the affected region [...] 07/16/2017 16:22:02 Reading Location: [facility] Radiology Reading Room RAD, CHEST, 1 VIEW, NON [id number] 09:32:00Reason for exam:->cxfShould this be performed at the bedside?->YesFINAL REPORT CLINICAL HISTORY: cxf TECHNIQUE: 1 view of the chest. COMPARISON: None IMPRESSION: Pulmonary vascular congestion is noted with diffuse bilateral interstitial opacities and left lung atelectasis. There is blunting of the left costophrenic angle. The cardiomediastinal silhouette is magnified by technique with sternotomy wires. Signed: Partha Abreueport Verified Date/Time: 07/16/2017 09:32:51 Reading Location: [facility] Radiology Reading Room B-TYPE NATRIURETIC FACTOR (BNP)2017-07-16 02:38:00 Test Item Value Reference Range Interpretation Comments B-TYPE NATRIURETIC PEPTIDE (BEAKER) 251 pg/mL 0-100 H (test code = 700) BASIC METABOLIC [id number] 02:32:00 Test Item Value Reference Range Interpretation [...] TS. Specimen slightly ictericLACTIC ACID, VENOUS, WHOLE [id number] 02:28:00 Test Item Value Reference Range Interpretation [...] (BEAKER) (test code = 413) HEMOGLOBIN AND [id number] 19:53:00 Test Item Value Reference Range Interpretation Comments HEMOGLOBIN (BEAKER) (test code = 9.4 GM/DL 13.7-17.5 L 410) HEMATOCRIT (BEAKER) (test code = 29.0 % 40.1-51.0 L 411) B-TYPE NATRIURETIC FACTOR (BNP)2017-07-15 16:30:00 Test Item Value Reference Range Interpretation Comments B-TYPE NATRIURETIC PEPTIDE (BEAKER) 155 pg/mL 0-100 H (test code = 700) [id number] 16:23:00 Test Item Value Reference Range Interpretation Comments MAGNESIUM (BEAKER) 2.0 mg/dL 1.6-2.6 Specimen slightly (test code = 627) hemolyzed BASIC METABOLIC [id number] 16:23:00 Test Item Value Reference Range Interpretation [...] TS. Specimen slightly ictericLACTIC ACID, VENOUS, WHOLE [id number] 16:19:00 Test Item Value Reference Range Interpretation [...] WBC 0-0 (BEAKER) (test code = 413) [id number] 12:47:00 Test Item Value Reference Range Interpretation Comments ACTIVATED CLOTTING TIME 224 sec TEST ED AT [place] [address] ([facility]) (test code = [place] [facility] [facility] [id number] 12:47:00 Test Item Value Reference Range Interpretation Comments ACTIVATED CLOTTING TIME 257 sec TEST ED AT [place] [address] ([facility]) (test code = [place] [facility]) [id number] 12:47:00 Test Item Value Reference Range Interpretation Comments ACTIVATED CLOTTING TIME 219 sec TEST ED AT [place] [address] ([facility]) (test code = [place] [facility]) [id number]
[2021-01-31 09:30] LABS: Urine Blood Negative (Negative); Urine Glucose Negative (Negative); Urine Protein Negative (Negative); Urine pH 6.5 (5.0-7.0)
--- NOTE | 2021-01-31 09:47 | RAD REPORT ---
EXAM DESCRIPTION: RAD - Chest Single View - 01/31/2021 9:12 am CLINICAL HISTORY: Lower extremity swelling COMPARISON: December 06 TECHNIQUE: AP portable chest image was obtained 01/31/2021 9:12 am . FINDINGS: Diffusely prominent interstitial pattern is present similar or slightly worse than compari son. Patient has pronounced cardiomegaly that is similar to comparison. Vascular engorgement is prese nt. Sternotomy wires are present in the midline. Trachea is also seen to maintain midline positioning . No measurable pleural effusion and no pneumothorax. No acute bony abnormality seen. No acute aortic findings suspected. IMPRESSION: Moderate severity CHF/ volume overload pattern.
[2021-01-31 09:48] LABS: Absolute Lymphocytes (CBC) 0.7 K/uL (0.7-4.9); Basophils % 1.1 % (0-1.3); Hematocrit 31.7 % (39.6-49.0); Lymphocytes % 16.6 % (15.3-44.8); MPV 8.8 fL (7.6-11.3); RBC Red Blood Cell Count 2.99 M/uL (4.33-5.43)
[2021-01-31 09:51] LABS: Protime INR 1.29
[2021-01-31 10:12] LABS: Albumin 3.1 g/dL (3.4-5.0); Bilirubin Direct 0.8 mg/dL (0-0.2); Magnesium 2.2 mg/dL (1.8-2.4); Potassium 4.4 mmol/L (3.5-5.1); Troponin (Emerg Dept Use Only) 0.02 ng/mL (0.0-0.045)
[2021-01-31] MEDS ORDERED: FUROSEMIDE 100 MG/10 ML VIAL IV ONE (10:27)
[2021-01-31 11:02] LABS: Anisocytosis 1+; Blood Morphology Comment NOTED (NOT SEEN); Macrocytosis 1+; Platelet Estimate ADEQ; White Blood Cell Scan OK (OK)
--- NOTE | 2021-01-31 11:14 | RAD REPORT ---
EXAM DESCRIPTION: US - Extrem Venous W Compress Wayne - 01/31/2021 10:19 am CLINICAL HISTORY: Pain;Swelling COMPARISON: None. TECHNIQUE: Real-time sonographic evaluation of the bilateral lower extremity common femoral, superfi cial femoral, popliteal and posterior tibial veins was performed. FINDINGS: Normal compressibility, flow augmentation, phasic flow and spontaneous flow are identified in the left and right lower extremity common femoral, superficial femoral, popliteal and posterior t ibial veins. No intraluminal filling defects seen. Lower extremity soft tissue edema present without abscess or drainable fluid collection. IMPRESSION: No DVT in either lower extremity.
--- NOTE | 2021-01-31 12:26 | ER ---
Nurse's Notes [facility] Name: Chris Mcwilliams Age: 89 yrs Sex: Male : 1930 Arrival Date: 01/31/2021 Time: 08:42 Bed 7 Private MD: Jas Garcia C Diagnosis: Combined systolic (congestive) and diastolic (congestive) heart failure;Edema, unspecified Presentation: 01/31 08:53 Chief complaint: Patient states: Swelling from the waste down x 1 week. Coronavirus jl7 screen: At this time, the client does not indicate any symptoms associated with coronavirus-19. Ebola Screen: No symptoms or risks identified at this time. Initial Sepsis Screen: Does the patient meet any 2 criteria? No. Patient's initial sepsis screen is negative. Does the patient have a suspected source of infection? No. Patient's initial sepsis screen is negative. Risk Assessment: Do you want to hurt yourself or someone else? Patient reports no desire to harm self or others. Onset of symptoms was January 24, 2021. Care prior to arrival: None. 08:53 Method Of Arrival: Wheelchair jl7 08:53 Acuity: BOB 3 jl7 Triage Assessment: 08:54 General: Appears in no apparent distress. uncomfortable, Behavior is calm, cooperative, jl7 appropriate for age. Pain: Denies pain. Historical: - Allergies: 08:54 No Known Allergies; jl7 - Home Meds: 09:06 sucralfate 1 gram Oral tab 1 tab 4 times per day [Active]; spironolactone 25 mg Oral bp tab 1 tab once daily [Active]; pantoprazole 40 mg oral TbEC 1 tab once daily [Active]; tamsulosin 0.4 mg oral cap 1 cap once daily [Active]; metoprolol tartrate 25 mg Oral tab 1 tab 2 times per day [Active]; furosemide 80 mg Oral tab 1 tab 2 times per day [Active]; - PMHx: 08:54 Congestive heart failure; Myocardial infarction; jl7 - PSHx: 08:54 Valve replacement; jl7 - Immunization history:: Adult Immunizations up to date, Client reports receiving the 2nd dose of the Covid vaccine, Moderna. - Social history:: Smoking status: Patient denies any tobacco usage or history of. Screenin:00 Abuse screen: Denies threats or abuse. Denies injuries from another. Nutritional bp screening: No deficits noted. Tuberculosis screening: No symptoms or risk factors identified. Fall Risk None identified. Assessment: 09:00 General: SEE TRIAGE NOTE. bp 09:44 Reassessment: No changes from previously documented assessment. Patient and/or family bp updated on plan of care and expected duration. Pain level reassessed. U/S AT B/S. 11:00 Reassessment: No changes from previously documented assessment. Patient and/or family bp updated on plan of care and expected duration. Pain level reassessed. 12:17 Reassessment: No changes from previously documented assessment. Patient and/or family bp updated on plan of care and expected duration. Pain level reassessed. PT GONZALEZ, 600 CC AT THIS TIME. 17:06 Reassessment: ADMISSION COMPLETE, REPORT TO REN RN FOR RM 218. bp Vital Signs: 08:53 BP 113 / 52; Pulse 63; Resp 19; Temp 98.3; Pulse Ox 97% on R/A; Weight 79.38 kg; Height jl7 5 ft. 7 in. (170.18 cm); Pain 0/10; 09:44 BP 119 / 65; Pulse 56; Resp 15; Pulse Ox 100% ; bp 10:00 BP 124 / 65; Pulse 59; Resp 17; Pulse Ox 97% ; bp 11:00 BP 130 / 78; Pulse 57; Resp 15; Pulse Ox 98% ; bp 12:00 BP 112 / 82; Pulse 60; Resp 28; Pulse Ox 95% ; bp 13:00 BP 108 / 47; Pulse 68; Resp 20; Pulse Ox 95% ; bp 14:00 BP 105 / 61; Pulse 60; Resp 13; Pulse Ox 94% ; bp 17:00 BP 117 / 59; Pulse 65; Resp 19; Pulse Ox 97% on 2 lpm NC; bp 08:53 Body Mass Index 27.41 (79.38 kg, 170.18 cm) jl7 ED Course: 08:42 Patient arrived in ED. am2 08:43 Jordy Aragon MD is Attending Physician. kdr 08:43 Jas Garcia MD is Private Physician. am2 08:54 Triage completed. jl7 08:54 Arm band placed on right wrist. jl7 09:00 Patient has correct armband on for positive identification. Bed in low position. Call bp light in reach. Side rails up X2. nurse monitoring on. Pulse ox on. NIBP on. 09:06 Bertrand Covington, RN is Primary Nurse. bp 09:12 XRAY Chest (1 view) In Process Unspecified. EDMS 09:40 Inserted saline lock: 20 gauge in right forearm, using aseptic technique. Blood bp collected. 09:42 SARS-COV-2 RT PCR (Document "Date of Onset" if Symptomatic) Sent. bp 10:16 US Extremity Venous W Compression Wayne In Process Unspecified. EDMS 12:24 Jas Garcia MD is Hospitalizing Provider. kdr 17:00 No provider procedures requiring assistance completed. Patient admitted, IV remains in bp place. Administered Medications: 09:45 Drug: Lasix (furosemide) 100 mg Route: IVP; Site: right forearm; bp 17:18 Follow up: Response: No adverse reaction bp Output: 12:33 Urine: 700ml; Total: 700ml. bp 14:38 Urine: 400ml; Total: 1100ml. bp Outcome: 12:25 Decision to Hospitalize by Provider. kdr 17:00 Admitted to Tele accompanied by tech, family with patient, on monitor, Report called to bp REN RN 17:00 Condition: stable 17:00 Instructed on the need for admit. 17:20 Patient left the ED. bp Signatures: Dispatcher [employer] Jordy Thorpe MD MD kdr Kendall Ceja, RN RN jl7 Kyra Strauss am2 Bertrand Covington, RN RN bp
--- NOTE | 2021-01-31 12:26 | EDPHYS ---
Physician Documentation [facility] Name: Chris Mcwilliams Age: 89 yrs Sex: Male : 1930 Arrival Date: 01/31/2021 Time: 08:42 Bed 7 Private MD: Jas Garcia C ED Physician Jordy Aragon HPI: 01/31 11:00 This 89 yrs old Male presents to ER via Wheelchair with complaints of Leg Swelling, hx kdr of chf. 11:00 Onset: The symptoms/episode began/occurred 2 week(s) ago. Severity of symptoms: At kdr their worst the symptoms were. The patient has experienced similar episodes in the past, Worse today than usual. The patient has not recently seen a physician. Patient has chronic lymphedema and lower extremity swelling which is worsened over the past week. He states he has been taking his Lasix 80 mg twice daily and not missing any doses. He has some mild shortness of breath but states that this is not appreciably worse than his baseline he has no other focal complaints. Historical: - Allergies: 08:54 No Known Allergies; jl7 - Home Meds: 09:06 sucralfate 1 gram Oral tab 1 tab 4 times per day [Active]; spironolactone 25 mg Oral bp tab 1 tab once daily [Active]; pantoprazole 40 mg oral TbEC 1 tab once daily [Active]; tamsulosin 0.4 mg oral cap 1 cap once daily [Active]; metoprolol tartrate 25 mg Oral tab 1 tab 2 times per day [Active]; furosemide 80 mg Oral tab 1 tab 2 times per day [Active]; - PMHx: 08:54 Congestive heart failure; Myocardial infarction; jl7 - PSHx: 08:54 Valve replacement; jl7 - Immunization history:: Adult Immunizations up to date, Client reports receiving the 2nd dose of the Covid vaccine, Moderna. - Social history:: Smoking status: Patient denies any tobacco usage or history of. ROS: 11:00 Constitutional: Negative for fever, chills, and weight loss, Eyes: Negative for injury, kdr pain, redness, and discharge, ENT: Negative for injury, pain, and discharge, Neck: Negative for injury, pain, and swelling, Cardiovascular: Negative for chest pain, palpitations, and edema, Abdomen/GI: Negative for abdominal pain, nausea, vomiting, diarrhea, and constipation, Back: Negative for injury and pain, : Negative for injury, bleeding, discharge, and swelling. 11:00 Cardiovascular: Positive for edema. Exam: 11:00 Constitutional: This is a well developed, well nourished patient who is awake, alert, kdr and in no acute distress. Head/Face: Normocephalic, atraumatic. Eyes: Pupils equal round and reactive to light, extra-ocular motions intact. Lids and lashes normal. Conjunctiva and sclera are non-icteric and not injected. Cornea within normal limits. Periorbital areas with no swelling, redness, or edema. Neck: Trachea midline, no thyromegaly or masses palpated, and no cervical lymphadenopathy. Supple, full range of motion without nuchal rigidity, or vertebral point tenderness. No Meningismus. Chest/axilla: Normal chest wall appearance and motion. Nontender with no deformity. No lesions are appreciated. Cardiovascular: Regular rate and rhythm with a normal S1 and S2. No gallops, murmurs, or rubs. Normal PMI, no JVD. No pulse deficits. Respiratory: Lungs have equal breath sounds bilaterally, clear to auscultation and percussion. No rales, rhonchi or wheezes noted. No increased work of breathing, no retractions or nasal flaring. Abdomen/GI: Soft, non-tender, with normal bowel sounds. No distension or tympany. No guarding or rebound. No evidence of tenderness throughout. Back: No spinal tenderness. No costovertebral tenderness. Full range of motion. Skin: Warm, dry with normal turgor. Normal color with no rashes, no lesions, and no evidence of cellulitis. Neuro: Awake and alert, GCS 15, oriented to person, place, time, and situation. Cranial nerves II-XII grossly intact. Motor strength 5/5 in all extremities. Sensory grossly intact. Cerebellar exam normal. Normal gait. Psych: Awake, alert, with orientation to person, place and time. Behavior, mood, and affect are within normal limits. 11:00 Cardiovascular: Edema: 4+ edema to level of left upper thigh, left lower thigh, left knee, left midcalf, left ankle, left foot, right upper thigh, right lower thigh, right knee, right midcalf, right ankle and right foot. 11:00 : The patient has diffuse swelling of his scrotum and penis. Vital Signs: 08:53 BP 113 / 52; Pulse 63; Resp 19; Temp 98.3; Pulse Ox 97% on R/A; Weight 79.38 kg; Height jl7 5 ft. 7 in. (170.18 cm); Pain 0/10; 09:44 BP 119 / 65; Pulse 56; Resp 15; Pulse Ox 100% ; bp 10:00 BP 124 / 65; Pulse 59; Resp 17; Pulse Ox 97% ; bp 11:00 BP 130 / 78; Pulse 57; Resp 15; Pulse Ox 98% ; bp 12:00 BP 112 / 82; Pulse 60; Resp 28; Pulse Ox 95% ; bp 13:00 BP 108 / 47; Pulse 68; Resp 20; Pulse Ox 95% ; bp 14:00 BP 105 / 61; Pulse 60; Resp 13; Pulse Ox 94% ; bp 17:00 BP 117 / 59; Pulse 65; Resp 19; Pulse Ox 97% on 2 lpm NC; bp 08:53 Body Mass Index 27.41 (79.38 kg, 170.18 cm) jl7 MDM: 12:25 Patient medically screened. kdr 12:29 Data reviewed: vital signs, nurses notes, lab test result(s), radiologic studies. kdr 12 08:59 Order name: Basic Metabolic Panel; Complete Time: 12:07 kdr 12 08:59 Order name: CBC with Diff; Complete Time: 12:07 kdr 12 08:59 Order name: LFT's; Complete Time: 12:07 kdr 01/31 08:59 Order name: Magnesium; Complete Time: 12:07 kdr 12 08:59 Order name: NT PRO-BNP; Complete Time: 12:07 kdr 12 08:59 Order name: PT-INR; Complete Time: 12:07 kdr 12 08:59 Order name: Troponin (emerg Dept Use Only); Complete Time: 12:07 kdr 01/31 09:30 Order name: Urine Dipstick-Ancillary; Complete Time: 12:07 EDMS 01/31 09:35 Order name: SARS-COV-2 RT PCR (Document "Date of Onset" if Symptomatic) iw 01/31 09:35 Order name: SARS-COV-2 RT PCR; Complete Time: 12:07 EDMS 01/31 11:02 Order name: CBC Smear Scan; Complete Time: 12:07 EDMS 01/31 12:51 Order name: Basic Metabolic Panel EDMS 01/31 12:51 Order name: Basic Metabolic Panel EDMS 01/31 12:51 Order name: CBC with Automated Diff EDMS 01/31 08:59 Order name: XRAY Chest (1 view); Complete Time: 12:07 kdr 01/31 08:59 Order name: EKG; Complete Time: 09:00 kdr 01/31 08:59 Order name: Cardiac monitoring; Complete Time: 09:36 kdr 01/31 08:59 Order name: EKG - Nurse/Tech; Complete Time: 09:35 kdr 01/31 08:59 Order name: IV Saline Lock; Complete Time: 09:42 kdr 01/31 08:59 Order name: Labs collected and sent; Complete Time: 09:42 kdr 01/31 08:59 Order name: O2 Per Protocol; Complete Time: 09:42 kdr 01/31 08:59 Order name: O2 Sat Monitoring; Complete Time: 09:42 kdr 01/31 09:22 Order name: US Extremity Venous W Compression Wayne; Complete Time: 12:07 kdr 01/31 12:51 Order name: CBC with Automated Diff EDMS 01/31 12:51 Order name: Chest Single View EDMS 01/31 12:51 Order name: Chest Single View EDMS 01/31 12:51 Order name: NT PRO-BNP EDMS 01/31 12:51 Order name: NT PRO-BNP EDMS 01/31 12:51 Order name: Troponin I EDMS Administered Medications: 09:45 Drug: Lasix (furosemide) 100 mg Route: IVP; Site: right forearm; bp 17:18 Follow up: Response: No adverse reaction bp Disposition Summary: 01/31/21 12:25 Hospitalization Ordered Hospitalization Status: Inpatient Admission kdr Provider: Jas Garcia Location: Telemetry/MedSurg (Inpatient) kdr Condition: Fair kdr Problem: an acute exacerbation kdr Symptoms: have improved kdr Bed/Room Type: Standard kdr Room Assignment: 218(01/31/21 15:50) em1 Diagnosis - Combined systolic (congestive) and diastolic (congestive) heart failure kdr - Edema, unspecified kdr Forms: - Medication Reconciliation Form kdr - SBAR form kdr Signatures: Dispatcher [employer] EDSg Dunhamin, MD MD kdr Anderson Singh em1 Kendall Ceja RN RN jl7 Bertrand Covington RN RN bp Corrections: (The following items were deleted from the chart) 15:50 12:25 ortiz em1
[2021-01-31] MEDS ORDERED: ACETAMINOPHEN 500 MG TAB PO PRN (12:50)
[2021-01-31] MEDS ORDERED: ALBUTEROL 2.5 MG/3 ML NEB SOL NEB PRN (12:50)
[2021-01-31] MEDS ORDERED: IPRATROPIUM BROM 0.5MG/2.5ML NEB PRN (12:50)
[2021-01-31] MEDS ORDERED: FUROSEMIDE 40 MG/4 ML VIAL IV SCH ×2 (14:00→18:00)
[2021-01-31] MEDS ORDERED: FUROSEMIDE 20 MG/ 2ML VIAL IV SCH (17:00)
[2021-01-31] MEDS: FUROSEMIDE 40 MG/4 ML VIAL IV SCH (19:53)
--- NOTE | 2021-01-31 23:36 | HP ---
Date of Admission: 01/31/2021 Chief Complaint: Leg swelling and shortness of breath. History Of Present Illness: Mr. Mcwilliams is a pleasant 89-year-old male patient who has chronic diasto lic congestive heart failure, came into emergency room today with worsening of leg swelling and assoc iated shortness of breath. Denies any chest pain. No fever, chills, nausea, vomiting. After the ross rosario was evaluated in the ER, he was admitted to the hospital. I was contacted for this admission a nd I did see him in the emergency room. He denies any chest pain. The patient reports that he takes his medications regularly as prescribed. Allergies: TO LEVAQUIN CAUSING RASH. Medications: Ferrous sulfate 325 mg daily, folic acid 0.8 mg daily, furosemide 80 mg 2 times a day, metoprolol tartrate 25 mg 2 times a day, nitroglycerin sublingual p.r.n., pantoprazole 40 mg daily, s pironolactone 25 mg daily, Carafate 1 g 4 times a day, tamsulosin 0.4 mg daily, vitamin B12 1 mg yokasta y. Review of Systems: Respiratory: As mentioned above. Cardiovascular: As mentioned above. All other systems reviewed and negative. Past Medical History: Type 2 diabetes mellitus, hypertension, hyperlipidemia, coronary artery diseas e, aortic stenosis, carotid artery stenosis, which is bilateral, chronic diastolic congestive heart f ailure, gastroesophageal reflux disease, cirrhosis of liver, diverticulosis, benign prostatic hypertr ophy, pancytopenia. Past Surgical History: Coronary artery stent placement, coronary artery bypass surgery, aortic valve replacement surgery in August 2017, cholecystectomy. Family History: Father had stroke. Brother had Alzheimer disease. Sister had lung cancer. Social History: Prior history of smoking. Use of alcohol, negative. Immunization History: The patient's first dose of COVID-19 vaccine was on April 08, 2020, second d ose on May 06, 2020, Physical Examination: Vital Signs: Temperature 97.5, pulse 67, respiratory rate 18, blood pressure 138/68, oxygen saturati on 95%. Height 5 feet 7 inches, weight 175 pounds. General: Awake, alert, oriented, not in distress. HEENT: Head atraumatic, normocephalic. Conjunctivae nonerythematous. Sclerae white. Mouth, no thr ush or edema noted. Ears/Nose, no mass, lesion, discharge noted. Neck: Supple. No JVD, lymph nodes, bruit, thyromegaly noted. Lungs: Examination shows bilateral good equal air entry with presence of rales in lower half of both lung joseph. Heart: Normal heart sounds, no murmur or gallop. Abdomen: Soft, bowel sounds normal. No guarding, rigidity, tenderness, mass, hepatosplenomegaly, dis tention, or bruit noted. Extremities: No calf tenderness. Skin: No rash, ulcer, cellulitis. The patient has grade 4 pedal edema in both lower extremities and he also has edema of lower abdominal wall involving external genitalia and both scrotum. Lymphatics: No lymph node enlargement in neck, supraclavicular, infraclavicular region. Neuro: No focal neurological deficit. Chest: Unremarkable. External Genitalia: Deferred. Rectal: Deferred. Laboratory Data: Chest x-ray shows evidence of congestive heart failure. DVT study of both lower ex tremities was negative for DVT. White count 4.2, hemoglobin 10.8, platelets are 82. Sodium 136, pot assium 4.4, chloride 101, bicarb 29, BUN 48, creatinine 1.97, glucose 105. Liver function tests unre markable. Troponin less than 0.02. ProBNP 9952. Urinalysis negative. COVID-19 test negative. The patient's last echocardiogram was done in August of this year and echocardiogram from September 04, 2020, re raj reviewed. Ejection fraction was 68%, mild mitral stenosis, mild aortic stenosis. Impression: 1.Chronic diastolic congestive heart failure, with acute exacerbation. 2.Pancytopenia. 3.Cirrhosis of liver. 4.Chronic kidney disease, stage IIIB. 5.Aortic stenosis. 6.Mitral stenosis. 7.Hypertension. 8.Type 2 diabetes mellitus. 9.Hyperlipidemia. 10.Coronary artery disease. 11.Carotid artery stenosis, bilateral. 12.Gastroesophageal reflux disease. 13.Diverticulosis. 14.Benign prostatic hypertrophy. Plan: Admit patient to hospital for further evaluation and management of this problem. The patient is appropriate for inpatient and is expected to spend 2 midnights in hospital. We will go ahead and start the patient on IV Lasix 40 mg every 8 hours. We will repeat blood work tomorrow morning. We w ill monitor intake, output, daily weight. No need to repeat echocardiogram at this point and we will monitor electrolytes and renal function. Aggressive diuresis will be provided as long as it is nece ssary and as long as he is able to tolerate and all these details were discussed with him. We also t alked about advance directives and as per patient's decision, he informed me he does not want any CPR , defibrillation or ventilator support and DNR order was written in the chart. APOORVA/MODL Voice ID: [id number]
[2021-02-01 05:51] LABS: Absolute Lymphocytes (CBC) 0.7 K/uL (0.7-4.9); Hematocrit 32.9 % (39.6-49.0); Lymphocytes % 16.5 % (15.3-44.8); MPV 9.3 fL (7.6-11.3); RBC Red Blood Cell Count 3.05 M/uL (4.33-5.43)
[2021-02-01 06:20] LABS: Magnesium 2.1 mg/dL (1.8-2.4); Potassium 3.8 mmol/L (3.5-5.1)
--- NOTE | 2021-02-01 07:31 | RAD REPORT ---
EXAM DESCRIPTION: RAD - Chest Single View - 02/01/2021 6:06 am CLINICAL HISTORY: Chest Pain COMPARISON: Chest Single View dated 01/31/2021; Chest Single View dated 12/06/2020; Chest Single View dated 12/05/2020; Chest Single View dated 09/01/2020 FINDINGS: Lines: None. Lungs: Pulmonary edema without significant change compared with 01/31/2021. Pleural: No significant pleural effusions or pneumothorax. Cardiac: Cardiomegaly. Sternotomy. Atherosclerosis. Bones: No acute fractures. Other: IMPRESSION: Edema/congestive heart failure similar to 01/31/2021.
[2021-02-01] MEDS ORDERED: METOLAZONE 2.5 MG TABLET PO ONE (08:00)
[2021-02-01] MEDS: FUROSEMIDE 40 MG/4 ML VIAL IV SCH ×3 (09:53→20:23)
--- NOTE | 2021-02-01 10:36 | PN ---
Date of Progress Note: 02/01/2021 Subjective: The patient was seen this morning for followup. No new complaints, problems reported by the patient. He was sitting in bed, eating breakfast, slept off and on last night. Denies any ches t pain or shortness of breath at rest. Objective: Vital Signs: Reviewed. HEENT: Examination unremarkable. Lungs: Bilateral good equal entry, presence of rales noted, unchanged from yesterday in lower lung f ields. Not using any accessory muscles of respiration. Heart: Sounds normal. Abdomen: Soft. Bowel sounds normal. No guarding, rigidity, tenderness, distention. Extremities: Leg edema remains unchanged. Genitalia: Scrotal edema remains unchanged. Laboratory Data: White count 4.3, hemoglobin 10.9, platelets 80. Sodium 139, potassium 3.8, chlorid e 101, bicarb 29, BUN 44, creatinine 1.82, glucose 107. Magnesium 2.1. ProBNP 10,391. Impression: 1.Congestive heart failure, chronic, diastolic, with acute exacerbation. 2.Pancytopenia. 3.Chronic kidney disease, stage 3B. 4.Cirrhosis of liver. Plan: We will go ahead and continue IV Lasix 40 mg 3 times a day. This morning, we will give metola zone 2.5 mg p.o. x1 dose. Monitor intake, output, daily weight. Consult Physical therapy to help ambulate the patient, and we will monitor electrolytes and renal function. I will see him tomorrow f or followup. APOORVA/MODL Voice ID: [id number] Report ID: [id number]
[2021-02-01 17:41] VITALS: BMI 26.9
[2021-02-01] MEDS: POTASSIUM CL SA 10 MEQ TAB PO SCH (20:23)
[2021-02-01] MEDS ORDERED: POTASSIUM 25 MEQ EFFERV TAB PO ONE (21:00)
[2021-02-02 06:47] LABS: Magnesium 2.1 mg/dL (1.8-2.4); Potassium 4.3 mmol/L (3.5-5.1)
[2021-02-02 06:51] LABS: Thyroid Stimulating Hormone 8.04 uIU/mL (0.360-3.740)
[2021-02-02] MEDS: POTASSIUM CL SA 10 MEQ TAB PO SCH ×2 (09:00→20:48)
[2021-02-02] MEDS: FUROSEMIDE 40 MG/4 ML VIAL IV SCH ×3 (09:01→20:47)
[2021-02-02] MEDS: LEVOTHYROXINE SOD 0.025 MG TAB PO SCH (09:15)
--- NOTE | 2021-02-02 11:27 | PN ---
Date of Progress Note: 02/02/2021 Subjective: The patient was seen this morning for followup. No new complaints, problems reported by the patient, lying in bed, not in any distress. Objective: Vital Signs: Reviewed. HEENT: Unremarkable. Lungs: Bilateral good equal air entry with presence of rales noted in both lung bases overall better than before. Heart: Sounds normal. Abdomen: Soft. Bowel sounds normal. No guarding, rigidity, tenderness, or distention. Extremities: Bilateral leg edema present but overall better than before as well. Laboratory Data: Sodium 136, potassium 4.3, chloride 98, bicarb 32, BUN 41, creatinine 1.73, glucose 105, magnesium 2.1. TSH 8.0. Impression: 1.Congestive heart failure, chronic, diastolic, with acute exacerbation. 2.Pancytopenia. 3.Hypertension. 4.Hyperlipidemia. 5.Hypothyroidism. Plan: We will continue current diuretic therapy. We will continue potassium replacement. Repeat bl ood work tomorrow morning. The patient's admission weight was 175 pounds and yesterday it was 167 an d today his weight is 162 pounds. I will see him tomorrow for followup and possible discharge to go home tomorrow depending on his condition. Intake, output records review ed. APOORVA/MODL Voice ID: [id number] Report ID: [id number]
--- NOTE | 2021-02-02 12:42 | EKG ---
Test Date: 2021-01-31 Test Time: 09:18:34 Feed Weigher: BP MEASUREMENT RESULTS: Intervals: Rate: 50 MI: QRSD: 160 QT: 496 QTc: 452 [place]: P: MI: QRS: -53 T: 132 INTERPRETIVE STATEMENTS: Atrial fibrillation with slow ventricular response Left axis deviation Right bundle branch block Voltage criteria for left ventricular hypertrophy Inferior infarct, age undetermined Anterolateral infarct, age undetermined Abnormal ECG Compared to ECG 12/05/2020 14:06:57 T-wave abnormality no longer present Possible ischemia no longer present Myocardial infarct finding still present Electronically Signed On 02-02-21 12:36:09 PEDIATRIC ORTHODONTIST by Guy Barnett
[2021-02-03] MEDS: LEVOTHYROXINE SOD 0.025 MG TAB PO SCH (06:06)
[2021-02-03] MEDS: POTASSIUM CL SA 10 MEQ TAB PO SCH (08:27)
[2021-02-03] MEDS: FUROSEMIDE 40 MG/4 ML VIAL IV SCH (08:28)
[2021-02-03 08:29] VITALS: BP 102/54
[2021-02-03 09:03] VITALS: TEMP 98.2
[2021-02-03 09:55] VITALS: O2SAT 91
--- NOTE | 2021-02-03 11:56 | DS ---
Date of Discharge: 02/03/2021 Disposition: Discharged to go home. Physical Examination: HEENT: Unremarkable. Lungs: Clear to auscultation. Heart: Sounds normal. Abdomen: Soft. Bowel sounds normal. No guarding, rigidity, tenderness, distention. Extremities: Trace leg edema. Laboratory Data: Upon admission, white count 4.2, hemoglobin 10.8, platelets 82. Last chemistry yes terday sodium 136, potassium 4.3, chloride 98, bicarb 32, BUN 41, creatinine 1.73, eGFR 37, glucose 1 05. TSH 8.04. Hospital Course: This is an 89-year-old male patient admitted to the hospital with shortness of yen th and leg swelling. Please see dictated H and P for more information. After the patient was evalua yomaira in the hospital with acute exacerbation of chronic diastolic congestive heart failure, he was sta rted on IV Lasix and he was given 1 dose of metolazone. Overall his condition improved and today he feels a lot better and he will be discharged to go home in stable condition. His chest x-ray had mary wn evidence of congestive heart failure. Venous Doppler of lower extremity was negative for DVT. Nv s last echocardiogram from September 04, 2020 had shown ejection fraction of 68%, mild mitral stenosis and mild aortic stenosis. Final Diagnoses: 1.Chronic diastolic congestive heart failure, with acute exacerbation. 2.Chronic kidney disease, stage 3B. 3.Pancytopenia. 4.Cirrhosis of liver. 5.Aortic stenosis. 6.Mitral stenosis. 7.Hypertension. 8.Type 2 diabetes mellitus. 9.Hyperlipidemia. 10.Coronary artery disease. 11.Carotid artery stenosis, bilateral. 12.Gastroesophageal reflux disease. 13.Diverticulosis. 14.Benign prostatic hypertrophy. Discharge Medications: Continue all prior home medication except stop spironolactone. Take following new medication and a prescription will be sent to Pharmacy from office: 1.Metolazone 2.5 mg take 1 tablet by mouth 2 times a week that is to take it on Thursday and . 2.Take potassium chloride 20 mEq 1 tablet by mouth daily. 3.Follow up at my office on 02/06/2021 at 10 a.m. APOORVA/MODL Voice ID: [id number] Report ID: [id number]
== END 2021-02-03 12:10 | disposition home or self-care (01) | DRG 291 ==
LOC: ER 08:41 → ERHOLD 12:50 → 2ND 16:56
PROVIDERS: ADMIT Internal Medicine; ATTEND Internal Medicine
DX: I13.0 Hypertensive heart and chronic kidney disease with heart failure and stage 1 through stage 4 chronic kidney disease, or unspecified chronic kidney disease (principal); I50.33 Acute on chronic diastolic (congestive) heart failure; D61.818 Other pancytopenia; N18.32 Chronic kidney disease, stage 3b; E11.22 Type 2 diabetes mellitus with diabetic chronic kidney disease; I25.2 Old myocardial infarction; E78.5 Hyperlipidemia, unspecified; I25.10 Atherosclerotic heart disease of native coronary artery without angina pectoris; K21.9 Gastro-esophageal reflux disease without esophagitis; K74.60 Unspecified cirrhosis of liver; I35.0 Nonrheumatic aortic (valve) stenosis; I05.0 Rheumatic mitral stenosis; I65.23 Occlusion and stenosis of bilateral carotid arteries; E03.9 Hypothyroidism, unspecified; N40.0 Benign prostatic hyperplasia without lower urinary tract symptoms; K57.90 Diverticulosis of intestine, part unspecified, without perforation or abscess without bleeding; Z66 Do not resuscitate; Z79.899 Other long term (current) drug therapy; Z95.2 Presence of prosthetic heart valve; Z95.5 Presence of coronary angioplasty implant and graft; Z88.1 Allergy status to other antibiotic agents; Z90.49 Acquired absence of other specified parts of digestive tract; Z20.822 Contact with and (suspected) exposure to COVID-19
CPT/HCPCS: 36415; 71045; 80048; 80076; 81003; 83735; 83880; 84439; 84443; 84484; 85025; 85610; 93005; 93970; 96374; 97116; 97161; 97530; 99285; J1940; U0003